=== PATIENT | female | born 1995 | race Caucasian/White ===

== ENCOUNTER 2019-01-16 14:00 | Emergency (ER) | payer MEDICAID, SELFPAY ==
[2019-01-16 14:04] VITALS: BP 115/70; PULSE 95; RESP 20; TEMP 36.6; O2SAT 99
--- NOTE | 2019-01-16 14:17 | DI.US_ITS ---
EXAM: US PELVIS AND TRANSVAGINAL CLINICAL HISTORY: left pelvic pain, h/o ovarian cysts TECHNIQUE: Ultrasound performed using standard protocol. Abdominal and transvaginal exams were per formed. COMPARISON: No exams were available for comparison FINDINGS: The uterus measures 9.3 x 4.2 x 5.3 cm. No fibroids are seen. The endometrium measures 13 millimeters in thickness and appears homogeneous. Small follicles are seen on both ovaries. There is no evidence of an ovarian mass or torsion. No free fluid or hydronephrosis is seen. IMPRESSION: Pelvic ultrasound is within normal limits.
[2019-01-16 14:23] LABS: Bilirubin Negative (Negative); Blood Negative (Negative); Clarity Clear (Clear); Glucose Negative (Negative); Ketones Negative (Negative); Leukocyte Esterase Negative (Negative); Nitrite Negative (Negative); Specific Gravity 1.025 (1.005-1.025); Urobilinogen 0.2 EU/dL (Up TO 0.2)
--- NOTE | 2019-01-16 14:43 | NUR.NOTE ---
Nursing Note: plan for u/s at 15:45. pt updated on plan of care.
--- NOTE | 2019-01-16 14:53 | ED.GENADUL_ITS ---
Discharge Plan Disposition Patient Disposition: HOME Condition: Improving Discharge Details Chief Complaint: Abd Prob Clinical Impression: Abdominal pain Primary Care Provider: Dalila,Local ED Provider: Tyra Owens Home Meds and New Rx's Prescriptions: Continued levothyroxine 150 mcg Tablet 150 mcg PO DAILY RF: 0 Discharge Instructions Instructions: Abdominal Pain (ED) Additional Instructions: Your blood work was within normal limits. Your CAT scan noted mild inflammation of the mesentery which is the fatty mesh which holds the bowel together. This is nonspecific and likely resolves on its own with time. This may or may not be the cause of your abdominal pain that you have had for the past year. Your CAT scan also noted gallstones within your gallbladder. These can often be the result of a diet of fried and fatty foods. Be sure to limit these to prevent development of cholecystitis which is an infection of your gallbladder due to a stone that has become stuck. You can alternate Tylenol and Motrin as needed and directed for pain. Follow a diet of clear liquids including Jell-O, soups, plenty of water for the next few days. Advance your diet as tolerated. Follow-up with your primary care doctor within the next week for reevaluation. Return to the emergency department if you develop any worsening or new concerning symptoms of fever, persistent vomiting or worsening pain. Discharge Data Discharge Date/Time-TO BE ENTERED AT DEPARTURE: 01/16/19 19:00 Discharge Physician: Tyra Owens Medical Decision Making <Tyra Owens DO - Last Filed: 01/16/19 19:03> 1630 --please see Dr. Nemo Prado's note for initial presentation and plan. 23-year-old female with a history of hypothyroidism presents with left lower quadrant abdominal pain for the past year, worse since yesterday. Describes the pain is constant, sharp and stabbing. Denies fever, vomiting and has a chronic history of diarrhea. Patient had a pelvic ultrasound which was negative. She declined pelvic exam. She admits to clear discharge which is likely physiologic. No known exposure to STDs. She was given Tylenol and IV fluids. Case endorsed to follow-up on labs and imaging. 1750 --labs and imaging reviewed. White blood cell count normal at 7, normal electrolytes, beta quant 1, lipase within normal limits. Urinalysis negative. CT abdomen pelvis notes very minimal fat stranding which may represent mild inflammation or possible pancreatitis. CT also noted gallstones but no evidence of cholecystitis. Patient still complaining of pain. She has tenderness to palpation in the LLQ>RLQ>LUQ. Abdomen otherwise soft and nondistended. We will give patient a dose of Toradol and add an amylase. Suspect more likely mesenteritis rather than pancreatitis but with noted gallstones will discuss with surgery. Discussed with Dr. Solomon and she agreed with plan for clear liquids, alternating Tylenol Motrin with plan to return if worse. 1840 --amylase within normal limits. Patient feels much better after Toradol and she is requesting to go home. She was advised to follow a diet of clear liquids over the next 2 days and advance diet as tolerated as well as alternate Tylenol and Motrin as needed directed for pain. She was advised to follow-up with her primary care doctor within the next week for reevaluation and to return her anytime if worse. Medical Records Medical records reviewed: Yes I reviewed the patient's medical records. Imaging Data Radiologic Study: Radiologist's impression: US PELVIS AND TRANSVAGINAL CLINICAL HISTORY: left pelvic pain, h/o ovarian cysts TECHNIQUE: Ultrasound performed using standard protocol. Abdominal and transvaginal exams were performed. COMPARISON: No exams were available for comparison FINDINGS: The uterus measures 9.3 x 4.2 x 5.3 cm. No fibroids are seen. The endometrium measures 13 millimeters in thickness and appears homogeneous. Small follicles are seen on both ovaries. There is no evidence of an ovarian mass or torsion. No free fluid or hydronephrosis is seen. IMPRESSION: Pelvic ultrasound is within normal limits. CT Abdomen And Pelvis With Contrast Exam date and time: 01/16/2019 5:16 PM Clinical history: 23 years old, female; Abdominal pain; Localized; Patient HX: Left sided pain; Additional info: Per PT: Has had 2 lypomas removed left side TECHNIQUE: Imaging protocol: Computed tomography of the abdomen and pelvis with intravenous contrast. COMPARISON: US PELVIS TRANSVAGINAL 01/16/2019 4:08 PM FINDINGS: Lungs: Mild dependent atelectasis. Liver: Mild hepatic steatosis. Gallbladder and bile ducts: Cholelithiasis with solitary gallstone without evidence of cholecystitis or biliary ductal dilatation. Pancreas: No pseudocyst or abnormal enhancement. Spleen: Normal. No splenomegaly. Adrenals: Normal. No mass. Kidneys and ureters: Normal. No hydronephrosis. Stomach and bowel: Unremarkable. No obstruction. No mucosal thickening. Appendix: Normal appendix (series 6, image [id number]). Intraperitoneal space: There is very minimal fat stranding around the celiac axis extending down into the mesentery. This may reflect mild mesenteric inflammation in the appropriate clinical setting. Pancreatitis would also be a consideration in appropriate clinical settings. Vasculature: Unremarkable. No abdominal aortic aneurysm. Lymph nodes: Benign-appearing fat containing iliac chain lymph nodes. There are a few scattered sub-5 mm mesenteric lymph nodes. Bladder: Unremarkable as visualized. Reproductive: Unremarkable as visualized. Bones/joints: Unremarkable. No acute fracture. Soft tissues: Unremarkable. IMPRESSION: 1. Very minimal fat stranding starting at the celiac axis and extending part way down into the mesentery. This is nonspecific but may represent mild inflammation or possibly pancreatitis in the appropriate clinical setting. 2. Cholelithiasis without evidence of cholecystitis. 3. Mild hepatic steatosis. Lab Data Lab results reviewed: Yes I reviewed the patient's lab results. Labs: Laboratory Tests Range/Units 01/16/19 01/16/19 01/16/19 14:17 16:20 16:20 WBC (4.4-10.8) k/cumm 7.98 RBC (4.00-5.20) m/cumm 4.59 Hgb (12.0-15.5) g/dL 13.6 Hct (36.0-46.0) % 40.4 MCV (80-95) fL 88.0 MCH (27.0-33.0) pg 29.6 MCHC (32.0-36.0) g/dL 33.7 RDW (11.7-14.6) % 13.1 Plt Count (130-400) x1000/uL 342 MPV (8.0-11.0) fL 9.5 Immature Gran % 0.3 Neutrophils % 61.9 Lymphocytes % 29.1 Monocytes % 7.3 Eosinophils % 1.0 Basophils % 0.4 Absolute Neutrophils (1.2-6.7) k/cumm 4.95 Absolute Lymphocytes (1.2-3.4) k/cumm 2.32 Absolute Monocytes (0.11-0.7) k/cumm 0.58 Absolute Eosinophils (0.0-0.7) k/cumm 0.08 Absolute Basophils (0.0-0.2) k/cumm 0.03 Sodium (136-145) mmol/L 142 Potassium (3.5-5.1) mmol/L 3.9 Chloride (98-107) mmol/L 104 Carbon Dioxide (21.0-32.0) mmol/L 29.4 Anion Gap (3-11) mmol/L 8.6 BUN (7-18) mg/dL 12 Creatinine (0.55-1.02) mg/dL 0.77 Estimated GFR/1.73 m2 (mL/min/1.73m2) >= 60.00 Glucose (70-100) mg/dL 100 Calcium (8.5-10.1) mg/dL 8.5 Total Bilirubin (0.2-1.0) mg/dL 0.2 AST (15-37) U/L 13 L ALT (14-59) U/L 34 Alkaline Phosphatase (46-116) U/L 80 Total Protein (6.4-8.2) g/dL 7.0 Albumin (3.4-5.0) g/dL 3.4 Amylase (25-115) U/L Lipase (73-393) U/L 153 Beta HCG, Quant (1-3) mIU/mL 1 Urine Color (Yellow) Yellow Urine Clarity (Clear) Clear Urine pH (5-8) 7.0 Ur Specific [place] (1.005-1.025) 1.025 Urine Protein (Negative) mg/dL Negative Urine Ketones (Negative) mg/dL Negative Urine Blood (Negative) Negative Urine Nitrite (Negative) Negative Urine Bilirubin (Negative) Negative Urine Urobilinogen (Up TO 0.2) EU/dL 0.2 Ur Leukocyte Esterase (Negative) Negative Urine Glucose (Negative) mg/dL Negative Range/Units 01/16/19 16:20 WBC (4.4-10.8) k/cumm RBC (4.00-5.20) m/cumm Hgb (12.0-15.5) g/dL Hct (36.0-46.0) % MCV (80-95) fL MCH (27.0-33.0) pg MCHC (32.0-36.0) g/dL RDW (11.7-14.6) % Plt Count (130-400) x1000/uL MPV (8.0-11.0) fL Immature Gran % Neutrophils % Lymphocytes % Monocytes % Eosinophils % Basophils % Absolute Neutrophils (1.2-6.7) k/cumm Absolute Lymphocytes (1.2-3.4) k/cumm Absolute Monocytes (0.11-0.7) k/cumm Absolute Eosinophils (0.0-0.7) k/cumm Absolute Basophils (0.0-0.2) k/cumm Sodium (136-145) mmol/L Potassium (3.5-5.1) mmol/L Chloride (98-107) mmol/L Carbon Dioxide (21.0-32.0) mmol/L Anion Gap (3-11) mmol/L BUN (7-18) mg/dL Creatinine (0.55-1.02) mg/dL Estimated GFR/1.73 m2 (mL/min/1.73m2) Glucose (70-100) mg/dL Calcium (8.5-10.1) mg/dL Total Bilirubin (0.2-1.0) mg/dL AST (15-37) U/L ALT (14-59) U/L Alkaline Phosphatase (46-116) U/L Total Protein (6.4-8.2) g/dL Albumin (3.4-5.0) g/dL Amylase (25-115) U/L 49 Lipase (73-393) U/L Beta HCG, Quant (1-3) mIU/mL Urine Color (Yellow) Urine Clarity (Clear) Urine pH (5-8) Ur Specific [place] (1.005-1.025) Urine Protein (Negative) mg/dL Urine Ketones (Negative) mg/dL Urine Blood (Negative) Urine Nitrite (Negative) Urine Bilirubin (Negative) Urine Urobilinogen (Up TO 0.2) EU/dL Ur Leukocyte Esterase (Negative) Urine Glucose (Negative) mg/dL <Nemo Prado MD - Last Filed: 01/19/19 20:56> Tiny Cline is a 23-year-old woman with a history of hypothyroidism who presented to the emergency department with left lower quadrant/left pelvic pain that has been chronic for 1 year now significantly worse since yesterday morning. On exam patient is well and nontoxic appearing. Left pelvic and left lower quadrant pain greater than right lower quadrant pain without peritoneal signs on abdominal exam. 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 Concern for ovarian pathology versus diverticulitis versus other. Exam/history is not consistent with sepsis, acute aortic pathology, mesenteric ischemia. Plan for screening labs, ultrasound, IV fluid hydration. Ultrasound negative. Labs reviewed and nondiagnostic. Patient with unchanged exam on reassessment. Plan for CT. Patient signed out to Dr. Owens at time of shift change with beta-hCG, CT, reassessment pending. Medical Records Medical records reviewed: Yes I reviewed the patient's medical records. HPI <Tyra Owesn DO - Last Filed: 01/16/19 19:03> General Date/Time Provider Initiated Documentation: 01/16/19 14:15 . Related Data Home Medications Medication Instructions Recorded Confirmed levothyroxine 150 mcg PO DAILY 01/16/19 01/16/19 Allergies Allergy/AdvReac Type Severity Reaction Status Date / Time No Known Allergies Allergy Unverified 01/16/19 14:12 <Nemo Prado MD - Last Filed: 01/19/19 20:56> General Mode of arrival: ambulatory . Limitations to Documentation: no limitations . Information obtained by: patient, RN notes reviewed and old records reviewed . HPI Narrative: Tiny Cline is a 23-year-old woman with a history of hypothyroidism presenting to the emergency department with left pelvic/left lower quadrant pain. Patient reports that she has had similar pain over the past year, however pain in is much worse than baseline since yesterday morning. Patient reports pain is constant, stabbing. She denies any known modifiers. Has been eating and drinking as usual. Patient reports chronic diarrhea that is unchanged. She denies constipation, vomiting, fevers, any other pain. Patient reports that she has had no recent changes in quality or amount of vaginal discharge. Sexually active with one long-term male partner, no new partners. General Stated Complaint: Abd Prob JEANETTE: 3 <Nemo Prado MD - Last Filed: 01/19/19 20:56> Narrative: Constitutional: denies fevers Eyes: denies eye pain ENT: denies facial pain, dental pain, sore throat Cardiovascular: denies chest pain Respiratory: denies SOB, cough GI: denies vomiting, reports left pelvic/left lower quadrant abdominal pain, chronic diarrhea : denies flank pain, dysuria, vaginal discharge MSK: denies back pain, neck pain, arthralgias, myalgias Skin: denies rash Neuro: denies headaches, numbness, weakness PFSH <Tyra Owens DO - Last Filed: 01/16/19 19:03> Social History Smoking/Tobacco Use Status: Former Tobacco Use Alcohol Intake: current Alcohol Intake frequency: a few times a month Drug use: Never Substance use type: does not use Do you feel safe at home: Yes Do you feel safe in your relationship?: Yes <Nemo Prado MD - Last Filed: 01/19/19 20:56> Narrative Exam Narrative: Constitutional: well and [id number], pleasant, conversing normally HENT: head atraumatic/normocephalic/normal inspection, mucous membranes moist Eyes: conjunctiva normal, sclera normal, pupils 3mm b/l Neck: no stridor, normal ROM, trachea midline Resp: normal work of breathing, LCTAB Cardio: normal rate, normal rhythm, no murmur appreciated GI: abdomen soft, tender to palpation across the lower abdomen, significantly worse in the left pelvic area/left lower quadrant, no rebound or guarding, non- distended : Patient refused pelvic exam Skin: warm, dry, normal color, no rash Neuro: alert, not altered, grossly non-focal, normal tone Ext: no edema Psych: normal mood, normal affect, normal behavior <Nemo Prado MD - Last Filed: 01/19/19 20:56> Vital Signs Vital signs: Vital Signs Temperature 36.6 C 01/16/19 14:04 Pulse 95 H 01/16/19 14:04 Respiratory Rate 20 01/16/19 14:04 Blood Pressure 115/70 01/16/19 14:04 Pulse Oximetry 99 01/16/19 14:04 Temperature 36.6 C 01/16/19 14:04 Temperature Source Skin 01/16/19 14:04 Pulse 95 H 01/16/19 14:04 Respiratory Rate 20 01/16/19 14:04 Respiratory Effort Non-Labored 01/16/19 14:08 Blood Pressure 115/70 01/16/19 14:04 Blood Pressure Position Sitting 01/16/19 14:04 Pulse Oximetry 99 01/16/19 14:04 Oxygen Delivery Method Room Air 01/16/19 14:04 Oxygen Flow Rate 0 01/16/19 14:04 Pain Level 9 01/16/19 14:04 Lab/Test Results Lab/Test Results: Laboratory Tests Range/Units 01/16/19 14:17 Urine Color (Yellow) Yellow Urine Clarity (Clear) Clear Urine pH (5-8) 7.0 Ur Specific [place] (1.005-1.025) 1.025 Urine Protein (Negative) mg/dL Negative Urine Ketones (Negative) mg/dL Negative Urine Blood (Negative) Negative Urine Nitrite (Negative) Negative Urine Bilirubin (Negative) Negative Urine Urobilinogen (Up TO 0.2) EU/dL 0.2 Ur Leukocyte Esterase (Negative) Negative Urine Glucose (Negative) mg/dL Negative POC- Test(urine) Negative Sign Out <Tyra Owens DO - Last Filed: 01/16/19 19:03> Sign Out Data: Sign Out Comment: Patient signed out to Dr. Owens at time of shift change with labs, CT abdomen pelvis, reassessment pending. Last updated by Nemo Prado MD at 01/16/19 16:39
--- NOTE | 2019-01-16 14:55 | NUR.NOTE ---
Nursing Note: provided pt with 2 glasses of water for a full bladder prior to scan per radiology.
[2019-01-16] MEDS: Acetaminophen 500 MG TAB 1000 MG PO (14:57)
[2019-01-16 14:58] VITALS: BP 119/69; PULSE 83; RESP 16; O2SAT 99
[2019-01-16] MEDS: Normal Saline 1,000 ML 1000 ML IV (16:00)
--- NOTE | 2019-01-16 16:11 | DI.CT_ITS ---
EXAM: CT ABDOMEN PELVIS W CLINICAL HISTORY: LLQ AND LUQ PAIN TECHNIQUE: 100 cc Omnipaque 350 IV. COMPARISON: No exams were available for comparison FINDINGS: Minimal dependent changes are seen at the lung bases. The heart size is normal. The liver shows fatt y infiltration. Stones are noted in the gallbladder which is otherwise unremarkable. No biliary dilat ation is seen. The spleen, pancreas, adrenals and kidneys are unremarkable. The appendix appears norm al. There is no bowel dilatation, bowel wall thickening or inflammatory changes. There is a normal qu antity of stool. A dominant follicle is seen on the right ovary. The left ovary and uterus as well a s bladder are unremarkable. There is a minimal fatty containing umbilical hernia. Aorta is normal in diameter. No bony abnormalities are seen. IMPRESSION: Cholelithiasis. No evidence of acute cholecystitis.
[2019-01-16 16:29] LABS: Abs Immature Grans 0.02 k/cumm (0.0-0.09); Absolute Basophil Count 0.03 k/cumm (0.0-0.2); Absolute Eosinophil Count 0.08 k/cumm (0.0-0.7); Absolute Lymphocyte Count 2.32 k/cumm (1.2-3.4); Absolute Monocyte Count 0.58 k/cumm (0.11-0.7); Absolute Neutrophil Count 4.95 k/cumm (1.2-6.7); Basophils % 0.4; HCT 40.4 % (36.0-46.0); HGB 13.6 g/dL (12.0-15.5); Immature Grans % 0.3; Lymphocytes % 29.1; Mean Corp. HGB Concentration 33.7 g/dL (32.0-36.0); Mean Corpuscular Hemoglobin 29.6 pg (27.0-33.0); Mean Platelet Volume 9.5 fL (8.0-11.0); Monocytes % 7.3; Neutrophils % 61.9; Platelet Count 342 x1000/uL (130-400); RBC 4.59 m/cumm (4.00-5.20); RBC Distribution Width 13.1 % (11.7-14.6); White Blood Cell Count 7.98 k/cumm (4.4-10.8)
[2019-01-16 16:50] LABS: ALT 34 U/L (14-59); AST 13 U/L (15-37); Albumin 3.4 g/dL (3.4-5.0); Alkaline Phosphatase 80 U/L (46-116); Anion Gap 8.6 mmol/L (3-11); BUN 12 mg/dL (7-18); Bilirubin, Total 0.2 mg/dL (0.2-1.0); CO2 29.4 mmol/L (21.0-32.0); CREATININE 0.77 mg/dL (0.55-1.02); Calcium 8.5 mg/dL (8.5-10.1); Chloride 104 mmol/L (98-107); Glucose 100 mg/dL (70-100); HCG Quant, Pregnancy 1 mIU/mL (1-3); Potassium 3.9 mmol/L (3.5-5.1); Sodium 142 mmol/L (136-145)
[2019-01-16 16:56] LABS: Lipase 153 U/L (73-393)
[2019-01-16] MEDS: Omnipaque 350 MG/ML 100 ML BTL IJ (17:13)
--- NOTE | 2019-01-16 17:53 | DI.VRAD_ITS ---
PROCEDURE INFORMATION: Exam: CT Abdomen And Pelvis With Contrast Exam date and time: 01/16/2019 5:16 PM Clinical history: 23 years old, female; Abdominal pain; Localized; Patient HX: Left sided pain; Additional info: Per PT: Has had 2 lypomas removed left side TECHNIQUE: Imaging protocol: Computed tomography of the abdomen and pelvis with intravenous contrast. COMPARISON: US PELVIS TRANSVAGINAL 01/16/2019 4:08 PM FINDINGS: Lungs: Mild dependent atelectasis. Liver: Mild hepatic steatosis. Gallbladder and bile ducts: Cholelithiasis with solitary gallstone without evidence of cholecystitis or biliary ductal dilatation. Pancreas: No pseudocyst or abnormal enhancement. Spleen: Normal. No splenomegaly. Adrenals: Normal. No mass. Kidneys and ureters: Normal. No hydronephrosis. Stomach and bowel: Unremarkable. No obstruction. No mucosal thickening. Appendix: Normal appendix (series 6, image [id number]). Intraperitoneal space: There is very minimal fat stranding around the celiac axis extending down into the mesentery. This may reflect mild mesenteric inflammation in the appropriate clinical setting. Pancreatitis would also be a consideration in appropriate clinical settings. Vasculature: Unremarkable. No abdominal aortic aneurysm. Lymph nodes: Benign-appearing fat containing iliac chain lymph nodes. There are a few scattered sub-5 mm mesenteric lymph nodes. Bladder: Unremarkable as visualized. Reproductive: Unremarkable as visualized. Bones/joints: Unremarkable. No acute fracture. Soft tissues: Unremarkable. IMPRESSION: 1. Very minimal fat stranding starting at the celiac axis and extending part way down into the mesentery. This is nonspecific but may represent mild inflammation or possibly pancreatitis in the appropriate clinical setting. 2. Cholelithiasis without evidence of cholecystitis. 3. Mild hepatic steatosis. Dictated and Authenticated by: Manny Cohen MD. Ordering:FLOWER Chester MD
[2019-01-16] MEDS: Ketorolac 30 MG/ML VIAL IVP (18:25)
[2019-01-16] MEDS: Normal Saline Flush 10 ML SYR IVP (18:26)
[2019-01-16 18:41] LABS: Amylase 49 U/L (25-115)
[2019-01-16 18:58] VITALS: BP 124/67; PULSE 74; RESP 16; O2SAT 98
== END 2019-01-16 19:00 | disposition home or self-care (01) ==
PROVIDERS: Student in an Organized Health Care Education/Training Program; Emergency Provider Physician Assistant
DX: R10.2 Pelvic and perineal pain (principal); R10.32 Left lower quadrant pain
CPT/HCPCS: 36415; 80053; 81025; 83690; 96361; 96374; 99284; 74177; 76830; 76856; 81003; 82150; 84702; 85025; J1885; J3490

== ENCOUNTER 2019-04-18 23:28 | Emergency (ER) | payer MEDICAID, SELFPAY ==
--- NOTE | 2019-04-18 23:31 | W.ED.GENAD ---
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 Alternate tylenol and motrin as needed and directed for pain. Take the oxycodone for pain not relieved with Tylenol or Motrin. Drink plenty of fluids and get plenty of rest. Follow-up with your primary care doctor or your MAIL DISTRIBUTION SCHEME EXAMINER within 1 week for reevaluation. Return to the emergency department with any worsening or new concerning symptoms. Discharge Data Discharge Date/Time-TO BE ENTERED AT DEPARTURE: 04/19/19 01:45 Discharge Physician: Tyra Owens Medical Decision Making 4720 -- 23-year-old female with a history of ovarian cyst presents with severe stabbing bilateral lower abdominal pain that started 1 hour ago while at home. Pain worse with sitting. She does also admit to vomiting and diarrhea over the past few days. She denies known fever, urinary symptoms. Urine test negative on arrival. She is crying and tearful and pain but abdomen is soft without rigidity or guarding and appears minimally tender with deep palpation. Patient states she is in severe pain. Level of pain appears out of proportion to exam. Differential diagnosis includes ovarian cyst, colitis, appendicitis, diverticulitis, UTI. Will place an IV, bolus IV fluids, screening labs, urinalysis and CT abdomen pelvis and give a dose of Toradol and Zofran and reassess. 0030 --patient reassessed -she appears much more comfortable. Labs reviewed and unremarkable. Pelvic exam noted physiologic discharge. Left-sided adnexal tenderness. No cervical motion tenderness. No adnexal masses noted. Patient admitted to more discomfort after pelvic exam. Dose of morphine given. 0115 --CT reviewed and notes recently ruptured left ovarian cyst. This is consistent with patient's exam. Patient reassessed -she is smiling and feels much more comfortable. She feels good to go home. We will send home with a few tabs of oxycodone. She is advised to follow-up with her primary care doctor or MAIL DISTRIBUTION SCHEME EXAMINER for reevaluation. Usual and customary return precautions given prior to discharge. After patient discharge, vaginal path screen returned and positive for Gardnerella. Patient was called several times on her cell phone with no response. Message left on her voicemail to return call to the emergency department. Plan discussed with school secretary Taylorcecy Voss to determine patient's pharmacy number once pt returns call to the ED in order to call in a prescription for Flagyl 500 mg p.o. twice daily x7 days Disp # 14. Medical Records Medical records reviewed: Yes I reviewed the patient's medical records. Imaging Data Radiologic Study: Radiologist's impression: CT Abdomen And Pelvis With Contrast Exam date and time: 04/19/2019 12:07 AM Age: 23 years old Clinical indication: Localized; Patient HX: Lower abdominal pain starting tonight, HX of ovarian cysts, ; additional info: R/O ovarian cysts, colitis, appendicitis TECHNIQUE: Imaging protocol: Computed tomography of the abdomen and pelvis with intravenous contrast. Radiation optimization: All CT scans at this facility use at least one of these dose optimization techniques: automated exposure control; mA and/or kV adjustment per patient size (includes targeted exams where dose is matched to clinical indication); or iterative reconstruction. Contrast material: OMNIPAQUE 350; Contrast volume: 100 ml; Contrast route: IV RAC; COMPARISON: CT ABDOMEN PELVIS W 01/16/2019 5:15 PM FINDINGS: Liver: Normal. No mass. Gallbladder and bile ducts: Small calcified stones. No ductal dilation. Pancreas: Normal. No ductal dilation. Spleen: Normal. No splenomegaly. Adrenals: Normal. No mass. Kidneys and ureters: Normal. No hydronephrosis. Stomach and bowel: Unremarkable. No obstruction. No mucosal thickening. Appendix: No evidence of appendicitis. Intraperitoneal space: Minimal pelvic fluid. No free air. No significant fluid collection. Vasculature: Unremarkable. No abdominal aortic aneurysm. Lymph nodes: Unremarkable. No enlarged lymph nodes. Bladder: Unremarkable as visualized. Reproductive: 3.5 cm left ovarian cyst Bones/joints: Unremarkable. No acute fracture. Soft tissues: Tiny periumbilical fat containing hernia IMPRESSION: Presumed recently ruptured left ovarian cyst measuring 3.5 cm with minimal pelvic fluid Gallstones Lab Data Lab results reviewed: Yes I reviewed the patient's lab results. Labs: 04/19/19 01:04 Vaginal Vaginitis Screen - Pending Laboratory Tests Range/Units 02/18/20 02/18/20 02/18/20 23:50 23:50 23:55 WBC (4.4-10.8) k/cumm 9.80 RBC (4.00-5.20) m/cumm 4.76 Hgb (12.0-15.5) g/dL 14.0 Hct (36.0-46.0) % 41.7 MCV (80-95) fL 87.6 MCH (27.0-33.0) pg 29.4 MCHC (32.0-36.0) g/dL 33.6 RDW (11.7-14.6) % 12.7 Plt Count (130-400) x1000/uL 323 MPV (8.0-11.0) fL 9.5 Immature Gran % % 0.2 Neutrophils % 60.3 Lymphocytes % 28.6 Monocytes % 9.0 Eosinophils % 1.6 Basophils % 0.3 Absolute Neutrophils (1.2-6.7) k/cumm 5.91 Absolute Lymphocytes (1.2-3.4) k/cumm 2.80 Absolute Monocytes (0.11-0.7) k/cumm 0.88 H Absolute Eosinophils (0.0-0.7) k/cumm 0.16 Absolute Basophils (0.0-0.2) k/cumm 0.03 Sodium (136-145) mmol/L 141 Potassium (3.5-5.1) mmol/L 3.9 Chloride (98-107) mmol/L 105 Carbon Dioxide (21.0-32.0) mmol/L 28.2 Anion Gap (3-11) mmol/L 7.8 BUN (7-18) mg/dL 12 Creatinine (0.55-1.02) mg/dL 0.83 Estimated GFR/1.73 m2 (mL/min/1.73m2) >= 60.00 Glucose (74-106) mg/dL 87 Calcium (8.5-10.1) mg/dL 8.4 L Total Bilirubin (0.2-1.0) mg/dL 0.1 L AST (15-37) U/L 16 ALT (14-59) U/L 47 Alkaline Phosphatase (46-116) U/L 90 Total Protein (6.4-8.2) g/dL 7.3 Albumin (3.4-5.0) g/dL 3.5 Urine Color (Yellow) Yellow Urine Clarity (Clear) Clear Urine pH (5-8) 8.[address] [place] (1.005-1.025) 1.020 Urine Protein (Negative) mg/dL Negative Urine Ketones (Negative) mg/dL Negative Urine Blood (Negative) Trace H Urine Nitrite (Negative) Negative Urine Bilirubin (Negative) Negative Urine Urobilinogen (Up TO 0.2) EU/dL 0.2 Ur Leukocyte Esterase (Negative) Negative Urine RBC (0-2) HPF 0-2 Urine WBC (0-5) HPF 0-2 Ur Epithelial Cells (Negative) HPF Rare Urine Crystals Not Applicable Urine Bacteria Not Applicable Urine Mucus Not Applicable Ur Culture Indicated? No Urine Glucose (Negative) mg/dL Negative HPI General Mode of arrival: ambulatory. Date/Time Provider Initiated Documentation: 04/18/19 23:29. Limitations to Documentation: no limitations. Information obtained by: patient. History of Present Illness 23 year old F presents to the emergency department with the chief complaint of lower abdominal pain , described as severe, with intensity rated at 10. Quality is described as stabbing, and is localized to the abdomen. Patient reports no radiation. Patient started experiencing this hour(s) (2) and it has been constant. No relieving factors improve symptom(s), Other factors that worsen symptoms (sitting) . Patient notes nausea/vomiting (Food, 3 times over the past few days) and other (Diarrhea twice daily today, watery brown); denies headaches, seizure, shortness of breath, syncope and weakness. Patient did receive the following treatments prior to arrival, none Related Data Home Medications Medication Instructions Recorded Confirmed levothyroxine 150 mcg PO DAILY 01/16/19 04/19/19 Allergies Allergy/AdvReac Type Severity Reaction Status Date / Time No Known Allergies Allergy Unverified 04/19/19 00:32 General JEANETTE: 3 Review of Systems All systems reviewed & are unremarkable except as noted in HPI and below Constitutional Constitutional: Reports as per HPI, Denies chills and Denies fever(s) Eyes Eyes: Denies blurry vision ENT Ears, Nose, Mouth, and Throat: Denies dizziness, Denies sore throat and Denies throat swelling Cardiovascular Cardiovascular: Denies chest pain and Denies dyspnea Respiratory Respiratory: Denies cough and Denies dyspnea Gastrointestinal Gastrointestinal: Reports abdominal pain, Reports diarrhea and Reports vomiting Genitourinary Genitourinary: Denies hematuria and Denies dysuria Musculoskeletal Musculoskeletal: Denies back pain and Denies numbness Integumentary/Breasts Skin/Breast: Denies lesions and Denies rash Neurologic Neurologic: Denies dizziness, Denies focal weakness and Denies numbness Allergic/Immunologic Allergic/Immunologic: Denies throat swelling [facility] Medical History (Updated 04/19/19 @ 01:22 by Tyra Owens DO) Hypothyroidism (Chronic) Surgical History (Updated 04/19/19 @ 00:08 by Tyra Owens DO) No significant past surgical history (Acute) Social History Smoking/Tobacco Use Status: Former Tobacco Use Alcohol Intake: current Alcohol Intake frequency: a few times a month Drug use: Never Substance use type: does not use Do you feel safe at home: Yes Do you feel safe in your relationship?: Yes Exam Const General: cooperative, uncomfortable, no acute distress and other (crying and tearful) Orientation: alert, awake and oriented x3 HENMT Head: normal to inspection Face and sinus: normal facial exam Eyes General: appearance normal, both eyes and all related structures EOM: EOM intact bilaterally Neck Neck: normal visual inspection and No submandibular swelling Lymphatic: no lymphadenopathy noted Chest Chest: normal inspection of the chest and no tenderness Resp Effort & Inspection: normal respiratory effort and able to speak in complete sentences Auscultation: clear to auscultation bilaterally Cardio Rate: regular rate Rhythm: regular rhythm GI Inspection: normal to inspection and obesity Palpation: soft, not firm, not rigid and tender (across lower abdomen) Auscultation: normal bowel sounds Back/Spine/Pelvis Back: no CVA tenderness Skin General skin exam: no rashes or lesions noted Neuro General: alert, awake and oriented x3 Cognition: normal cognition Speech: speech normal Motor: muscle tone normal throughout Sensory Exam: no sensory deficits noted Extrem General: normal to inspection, full ROM, normal capillary refill, no calf tenderness bilaterally and no edema Psych Appearance: grossly normal Mental Status: mental status grossly normal Speech and Movement: speech and movement normal Affect: normal affect
[2019-04-18 23:32] VITALS: BP 150/71; PULSE 86; RESP 18; TEMP 36.7; O2SAT 100
[2019-04-18] MEDS: Normal Saline 1,000 ML 1000 ML IV (23:55)
--- NOTE | 2019-04-19 | DI.CT_ITS ---
EXAM: CT ABDOMEN PELVIS W CLINICAL HISTORY: lower abd pain, h/o ovarian cysts TECHNIQUE: Imaging Protocol: Axial computed tomography images with coronal and sagittal reformatted images were created and reviewed CONTRAST MATERIAL: Intravenous: Omnipaque 350 Contrast volume:100 mL Oral: No COMPARISON: CT ABDOMEN PELVIS W from 01/16/2019 FINDINGS: ABDOMEN: Lung Bases: Normal where visualized. Liver: Normal density. No measurable mass. Portal, Superior Mesenteric, and Splenic Veins: Unremarkable. Gallbladder and Biliary Tract: Gallstones. No biliary ductal dilatation. Pancreas: Normal density, no abnormal calcifications or inflammatory process. Spleen: Normal. Adrenals: No masses seen. Kidneys: Normal size, contour and axis. No radiodense stones or obstructive uropathy. No masses seen. Abdominal Aorta: Abdominal portion non-dilated. Bowel: No obstruction or bowel wall thickening. Appendix is unremarkable. Peritoneal Cavity: Small amount of pelvic fluid. Lymph Nodes: Within normal limits. Bones: Unremarkable. Soft Tissues: Small fat containing umbilical hernia. PELVIS: Bladder: Symmetric distention, no gross wall thickening. Reproductive Organs: 3.5 cm left ovarian cyst. Lymph Nodes: Within normal limits. Bones: Within normal limits. IMPRESSION: 1. 3.5 cm left ovarian cyst. Minimal pelvic fluid which is likely physiologic. 2. Cholelithiasis. No biliary ductal dilatation. Incidental Findings Critical Findings DATA REPOSITORY: All CT scans at this facility are submitted to the National Radiology Data Registry (NRDR) Dose Index Registry (DIR) with the [employer] (A[employer]). RADIATION OPTIMIZATION: All CT scans at this facility use at least one of these dose optimization te chniques: automated exposure control; mA and/or kV adjustment per patient size (includes targeted exa ms where dose is matched to clinical indication); or iterative reconstruction.
[2019-04-19 00:01] LABS: Abs Immature Grans 0.02 k/cumm (0.0-0.09); Absolute Basophil Count 0.03 k/cumm (0.0-0.2); Absolute Eosinophil Count 0.16 k/cumm (0.0-0.7); Absolute Monocyte Count 0.88 k/cumm (0.11-0.7); Absolute Neutrophil Count 5.91 k/cumm (1.2-6.7); Basophils % 0.3; Eosinophils % 1.6; HCT 41.7 % (36.0-46.0); Immature Grans % 0.2 %; Lymphocytes % 28.6; Mean Corp. HGB Concentration 33.6 g/dL (32.0-36.0); Mean Corpuscular Hemoglobin 29.4 pg (27.0-33.0); Mean Corpuscular Volume 87.6 fL (80-95); Mean Platelet Volume 9.5 fL (8.0-11.0); Neutrophils % 60.3; Platelet Count 323 x1000/uL (130-400); RBC 4.76 m/cumm (4.00-5.20); RBC Distribution Width 12.7 % (11.7-14.6)
[2019-04-19 00:08] LABS: Clarity Clear (Clear); Leukocyte Esterase Negative (Negative)
[2019-04-19 00:09] LABS: Bilirubin Negative (Negative); Blood Trace (Negative); Glucose Negative (Negative); Ketones Negative (Negative); Nitrite Negative (Negative); Urobilinogen 0.2 EU/dL (Up TO 0.2)
[2019-04-19 00:11] LABS: ALT 47 U/L (14-59); AST 16 U/L (15-37); Albumin 3.5 g/dL (3.4-5.0); Alkaline Phosphatase 90 U/L (46-116); Anion Gap 7.8 mmol/L (3-11); BUN 12 mg/dL (7-18); Bilirubin, Total 0.1 mg/dL (0.2-1.0); CO2 28.2 mmol/L (21.0-32.0); CREATININE 0.83 mg/dL (0.55-1.02); Calcium 8.4 mg/dL (8.5-10.1); Chloride 105 mmol/L (98-107); Glucose 87 mg/dL (74-106); Potassium 3.9 mmol/L (3.5-5.1); Sodium 141 mmol/L (136-145); Total Protein 7.3 g/dL (6.4-8.2)
[2019-04-19 00:13] LABS: C & S Indicated? No; Epithelial Cells Rare HPF (Negative); RBC 0-2 HPF (0-2); WBC 0-2 HPF (0-5)
[2019-04-19] MEDS: Omnipaque 350 MG/ML 100 ML BTL IJ (00:49)
[2019-04-19] MEDS: Normal Saline - Diluent 50 ML VIAL IV (00:50)
--- NOTE | 2019-04-19 01:20 | DI.VRAD_ITS ---
PROCEDURE INFORMATION: Exam: CT Abdomen And Pelvis With Contrast Exam date and time: 04/19/2019 12:07 AM Age: 23 years old Clinical indication: Localized; Patient HX: Lower abdominal pain starting tonight, HX of ovarian cysts, ; additional info: R/O ovarian cysts, colitis, appendicitis TECHNIQUE: Imaging protocol: Computed tomography of the abdomen and pelvis with intravenous contrast. Radiation optimization: All CT scans at this facility use at least one of these dose optimization techniques: automated exposure control; mA and/or kV adjustment per patient size (includes targeted exams where dose is matched to clinical indication); or iterative reconstruction. Contrast material: OMNIPAQUE 350; Contrast volume: 100 ml; Contrast route: IV RAC; COMPARISON: CT ABDOMEN PELVIS W 01/16/2019 5:15 PM FINDINGS: Liver: Normal. No mass. Gallbladder and bile ducts: Small calcified stones. No ductal dilation. Pancreas: Normal. No ductal dilation. Spleen: Normal. No splenomegaly. Adrenals: Normal. No mass. Kidneys and ureters: Normal. No hydronephrosis. Stomach and bowel: Unremarkable. No obstruction. No mucosal thickening. Appendix: No evidence of appendicitis. Intraperitoneal space: Minimal pelvic fluid. No free air. No significant fluid collection. Vasculature: Unremarkable. No abdominal aortic aneurysm. Lymph nodes: Unremarkable. No enlarged lymph nodes. Bladder: Unremarkable as visualized. Reproductive: 3.5 cm left ovarian cyst Bones/joints: Unremarkable. No acute fracture. Soft tissues: Tiny periumbilical fat containing hernia IMPRESSION: Presumed recently ruptured left ovarian cyst measuring 3.5 cm with minimal pelvic fluid Gallstones Dictated and Authenticated by: Levy Kaminski MD. Ordering:ED Mary MD
== END 2019-04-19 01:45 | disposition home or self-care (01) ==
LOC: ER 04-19 01:55
PROVIDERS: Emergency Provider Physician Assistant
DX: N76.0 Acute vaginitis (principal); B96.89 Other specified bacterial agents as the cause of diseases classified elsewhere; N83.292 Other ovarian cyst, left side
CPT/HCPCS: 36415; 80053; 81025; 96361; 96374; 99285; 74177; 81003; 81015; 85025; 87480; 87510; 87660; 99284; J3490

== ENCOUNTER 2019-09-10 01:49 | Emergency (ER) | payer MEDICAID, SELFPAY ==
--- NOTE | 2019-09-10 01:50 | ED.GENADUL_ITS ---
Discharge Plan Disposition Patient Disposition: HOME Condition: Good Discharge Details Chief Complaint: Abd Prob Clinical Impression: Pelvic pain Primary Care Provider: Dalila,Local ED Provider: Ariel Adler Meds and New Rx's Prescriptions: New ibuprofen 600 mg tablet 600 mg PO Q8H PRNQty: 15 RF: 0 Continued levothyroxine 150 mcg Tablet 150 mcg PO DAILY RF: 0 Discharge Instructions Additional Instructions: test and urinalysis are negative. Laboratory studies look normal. GC and Chlamydia probe results pending. Recommend rest for the weekend and use ibuprofen for discomfort. Follow-up with your TITLE ABSTRACTOR this week if continued pain/problems. Return to ED for fever, worsening pain, persistent vomiting, other concerns or problems. Medical Decision Making Patient test negative here. Urinalysis pending. Pelvic exam suggestive of left adnexal pathology, likely recurrent cyst. No discharge and no CMT. IV in place with Toradol and Zofran ordered. Laboratory studies sent. Will reevaluate. 2:45 AM: Patient laboratory studies are unremarkable. Normal white count. Normal hemoglobin. Urinalysis negative. Patient is feeling better at this point. Does complain of some discomfort when moving. She does have TITLE ABSTRACTOR follow-up over in [place]. She reiterates that this feels like previous ruptured cyst. I am not concerned for ovarian torsion at this point. test is negative. Did offer patient to stay until morning for ultrasound if she felt she was that uncomfortable. She declined. She would like to go home. Will give prescription for ibuprofen. Rest and call her TITLE ABSTRACTOR on Wednesday if not doing better. Return to ED for fever, worsening pain, persistent vomiting, other concerns or problems. Lab Data Lab results reviewed: Yes I reviewed the patient's lab results. HPI General Mode of arrival: wheelchair . Date/Time Provider Initiated Documentation: 09/10/19 01:50 . Limitations to Documentation: no limitations . Information obtained by: patient, RN notes reviewed and old records reviewed . HPI Narrative: Patient presents to ED after waking up approximately 30 minutes ago with low abdominal pain and cramping with associated nausea. She has had some back discomfort over the course of a day or so. She denies urinary symptoms. She denies vomiting or diarrhea. Been no fever. She denies vaginal bleeding or discharge. Reports having similar pain when she had a ruptured ovarian cyst. Did not take anything prior to coming in. Is about a week late on her. But had a negative home test yesterday. Related Data Home Medications Medication Instructions Recorded Confirmed levothyroxine 150 mcg PO DAILY 01/16/19 09/10/19 ibuprofen 600 mg PO Q8H PRN #15 tab 09/10/19 Previous Rx's Medication Instructions Recorded ibuprofen 600 mg PO Q8H PRN #15 tab 09/10/19 Allergies Allergy/AdvReac Type Severity Reaction Status Date / Time No Known Allergies Allergy Unverified 09/10/19 02:01 General JEANETTE: 3 Review of Systems Narrative: As documented in HPI otherwise negative as below. Const: no fever, chills, weakness Resp: no cough, SOB, pleuritic pain CV: no CP, diaphoresis, edema, syncope GI: no vomiting, diarrhea Neuro: no headache, numbness, focal weakness, confusion PFSH Medical History Hypothyroidism (Chronic) Surgical History No significant past surgical history (Acute) Social History Smoking/Tobacco Use Status: Former Tobacco Use Alcohol Intake: former Drug use: Never Substance use type: does not use Do you feel safe at home: Yes Do you feel safe in your relationship?: Yes Exam Narrative Exam Narrative: Vitals: Afebrile with normal vitals and normal room air pulse ox. Const: Obese female in NAD. HEENT: NC/AT. Normal facial exam. Eyes: Normal conjunctiva and sclera. Neck: Supple. Trachea midline. Lungs: Normal respiratory effort. Cor: Good radial pulses. GI: Soft. NT/ND. No guarding or rebound. Pelvic: Normal female genitalia. No bleeding or discharge. GC and Chlamydia probe obtained. Bimanual reveals no CMT. Some discomfort on the right. Left adnexa tender with some fullness. Back: No CVAT Neuro: A+O x 3. Normal speech, mentation, gait. Cranial nerves II - XII grossly intact. No gross motor or sensory deficit. Ext: No C/C/E. Skin: Warm and dry without rash.
[2019-09-10 01:57] VITALS: BP 126/73; PULSE 89; RESP 20; TEMP 36.9; O2SAT 100
[2019-09-10 02:03] LABS: Bilirubin Negative (Negative); Blood Trace-intact (Negative); Clarity Clear (Clear); Glucose Negative (Negative); Ketones Negative (Negative); Leukocyte Esterase Negative (Negative); Nitrite Negative (Negative); Urobilinogen 0.2 EU/dL (Up TO 0.2); pH 8.5 (5-8)
[2019-09-10] MEDS: Ondansetron 4 MG/2 ML VIAL IVP (02:13)
[2019-09-10] MEDS: Ketorolac 30 MG/ML VIAL IVP (02:13)
[2019-09-10 02:14] LABS: Abs Immature Grans 0.01 k/cumm (0.0-0.09); Absolute Basophil Count 0.03 k/cumm (0.0-0.2); Absolute Eosinophil Count 0.17 k/cumm (0.0-0.7); Absolute Lymphocyte Count 3.13 k/cumm (1.2-3.4); Absolute Monocyte Count 0.86 k/cumm (0.11-0.7); Absolute Neutrophil Count 5.54 k/cumm (1.2-6.7); Basophils % 0.3; Eosinophils % 1.7; HCT 39.8 % (36.0-46.0); HGB 13.5 g/dL (12.0-15.5); Immature Grans % 0.1 %; Lymphocytes % 32.1; Mean Corp. HGB Concentration 33.9 g/dL (32.0-36.0); Mean Corpuscular Hemoglobin 30.6 pg (27.0-33.0); Mean Corpuscular Volume 90.2 fL (80-95); Mean Platelet Volume 9.8 fL (8.0-11.0); Monocytes % 8.8; Platelet Count 347 x1000/uL (130-400); RBC 4.41 m/cumm (4.00-5.20); RBC Distribution Width 13.4 % (11.7-14.6); White Blood Cell Count 9.74 k/cumm (4.4-10.8)
[2019-09-10 02:18] LABS: WBC Negative HPF (0-5)
[2019-09-10 02:19] LABS: Bacteria Negative HPF (Negative); Crystals Negative HPF (Negative); Epithelial Cells Rare HPF (Negative); Mucus Trace (Negative); Other Cells Moderate Spermatozoa (Negative)
[2019-09-10 02:20] LABS: C & S Indicated? No; Casts Negative LPF (Negative)
[2019-09-10 02:33] LABS: ALT 59 U/L (14-59); AST 24 U/L (15-37); Albumin 3.9 g/dL (3.4-5.0); Alkaline Phosphatase 90 U/L (46-116); Anion Gap 8.1 mmol/L (3-11); BUN 13 mg/dL (7-18); Bilirubin, Total 0.2 mg/dL (0.2-1.0); CO2 29.9 mmol/L (21.0-32.0); CREATININE 1.05 mg/dL (0.55-1.02); Calcium 8.8 mg/dL (8.5-10.1); Chloride 103 mmol/L (98-107); Glucose 102 mg/dL (74-106); Lipase 154 U/L (73-393); Potassium 3.6 mmol/L (3.5-5.1); Sodium 141 mmol/L (136-145); Total Protein 7.7 g/dL (6.4-8.2)
[2019-09-10 02:48] VITALS: BP 116/70; PULSE 80; RESP 16; TEMP 36.9; O2SAT 100
--- NOTE | 2019-09-10 11:08 | NUR.NOTE ---
Nursing Note: Lab called stating that a vaginal pathogen screen was sen to the lab without an order. They did receive a gc/chlam specimen and did have an order. Did we want to run the vag path? I spoke with Dr. Owens and she stated that he would have wanted the vag path specimen run. Could I put the order in? I put the order in,collected it and they will run it. Lula León.
[2019-09-11 15:33] LABS: Chlamydia Result Negative (Negative); GC Result Negative (Negative)
== END 2019-09-10 02:55 | disposition home or self-care (01) ==
LOC: ER 02:58
PROVIDERS: Emergency Provider Emergency Medicine
DX: R10.2 Pelvic and perineal pain (principal); R11.0 Nausea
CPT/HCPCS: 36415; 80053; 81025; 83690; 87491; 87591; 96374; 96375; 99284; 81003; 81015; 85025; 87480; 87510; 87660; 99283; J1885; J2405

== ENCOUNTER 2019-09-18 08:18 | Emergency (ER) | payer MEDICAID, SELFPAY ==
[2019-09-18 08:23] VITALS: BP 118/80; PULSE 71; RESP 18; TEMP 36.5; O2SAT 98
--- NOTE | 2019-09-18 08:29 | ED.GENADUL_ITS ---
Discharge Plan Disposition Patient Disposition: HOME Condition: Stable Discharge Details Chief Complaint: Abd Prob Clinical Impression: Abdominal pain Primary Care Provider: Dalila,Local ED Provider: Sanjiv Doyle Home Meds and New Rx's Prescriptions: New ondansetron HCl [Zofran] 4 mg tablet 4 mg PO Q8H PRNQty: 10 RF: 0 Continued ibuprofen 600 mg tablet 600 mg PO Q8H PRNQty: 15 RF: 0 valacyclovir [Valtrex] 500 mg Tablet 500 mg PO PRN PRNRF: 0 levothyroxine 150 mcg Tablet 175 mcg PO DAILY RF: 0 Discharge Instructions Instructions: Abdominal Pain (ED) Additional Instructions: Zofran as directed. Clear liquid diet, advance as tolerated. Work-up in the ER today did not reveal any obvious emergent or surgical process. I strongly recommend you reach out to your primary care provider later today for prompt outpatient reevaluation. Eventual surgical referral may be indicated if symptoms persist. Please watch for new or worsening symptoms and return to the ER for any concerns Medical Decision Making 23-year-old female who presents with acute on chronic abdominal pain. Reports that roughly 1 hour ago she drank a cup of coffee, developed nausea, vomiting, epigastric cramping and burning. She reports that her symptoms that she presented with 8 days ago to the ER have resolved completely. She appears well, nontoxic, no acute distress. Abdominal examination reveals a mild epigastric discomfort to deep palpation, without rigidity, guarding, rebound. Certainly nonsurgical. Patient is approximately 2 weeks late on her current menstrual cycle, denies any vaginal bleeding or discharge. She did have vaginal swab obtained 8 days ago which were negative. Differential today includes but not excluded to gastritis, ulcer, biliary colic, pancreatitis, gastroenteritis, etc. Her pain is in the epigastric region, appears to be unrelated to her visit 8 days ago, I believe that diagnosis such as UTI, pyelonephritis, ovarian cyst, etc. are highly unlikely given her presentation. Will obtain CBC, CMP, lipase, urinalysis and a serum test. In the meantime we will give a GI cocktail. Laboratory values reveal a white count of 8.98 hemoglobin 12.9 hematocrit 37.9 platelet count 391. Electrolytes are unremarkable, creatinine 0.90 with a GFR greater than 60. Total bilirubin 0.3 AST 27 ALT 68 alk phos 85 lipase 161 serum hCG negative. Urinalysis with trace blood otherwise unremarkable dip, microscopic reveals 5-10 high-power field red cells. Reviewing her last visit she did have mild hematuria. Examination is not consistent with renal stone. Upon reevaluation she is resting comfortably using her cell phone. She appears well, nontoxic and in no acute distress. When asked if she felt any improvement with her GI cocktail she said it had not really made much of a difference. Will give 30 IV Toradol. Upon reevaluation she reports relief with the IV medication. She has no additional questions or concerns and is comfortable discharge at this time. We discussed the importance of outpatient follow-up through her primary care provider for her ongoing abdominal pain, eventually surgical referral may be indicated for potential endoscopy, HIDA scan, etc. for further evaluation of her ongoing discomfort. She was encouraged to watch for new or worsening symptoms and return to the ER for any concerns Medical Records Medical records reviewed: Yes I reviewed the patient's medical records. Lab Data Lab results reviewed: Yes I reviewed the patient's lab results. Lab results narrative: Laboratory Tests Range/Units 09/18/19 09/18/19 09/18/19 08:35 08:35 08:35 WBC (4.4-10.8) k/cumm 8.98 RBC (4.00-5.20) m/cumm 4.21 Hgb (12.0-15.5) g/dL 12.9 Hct (36.0-46.0) % 37.9 MCV (80-95) fL 90.0 MCH (27.0-33.0) pg 30.6 MCHC (32.0-36.0) g/dL 34.0 RDW (11.7-14.6) % 13.0 Plt Count (130-400) x1000/uL 391 MPV (8.0-11.0) fL 9.6 Immature Gran % % 0.2 Neutrophils % 59.4 Lymphocytes % 29.8 Monocytes % 8.8 Eosinophils % 1.4 Basophils % 0.4 Absolute Neutrophils (1.2-6.7) k/cumm 5.32 Absolute Lymphocytes (1.2-3.4) k/cumm 2.68 Absolute Monocytes (0.11-0.7) k/cumm 0.79 H Absolute Eosinophils (0.0-0.7) k/cumm 0.13 Absolute Basophils (0.0-0.2) k/cumm 0.04 Sodium (136-145) mmol/L 141 Potassium (3.5-5.1) mmol/L 3.9 Chloride (98-107) mmol/L 103 Carbon Dioxide (21.0-32.0) mmol/L 28.5 Anion Gap (3-11) mmol/L 9.5 BUN (7-18) mg/dL 12 Creatinine (0.55-1.02) mg/dL 0.90 Estimated GFR/1.73 m2 (mL/min/1.73m2) >= 60.00 Glucose (74-106) mg/dL 99 Calcium (8.5-10.1) mg/dL 9.2 Total Bilirubin (0.2-1.0) mg/dL 0.3 AST (15-37) U/L 27 ALT (14-59) U/L 68 H Alkaline Phosphatase (46-116) U/L 85 Total Protein (6.4-8.2) g/dL 7.7 Albumin (3.4-5.0) g/dL 3.8 Lipase (73-393) U/L 161 Serum HCG, Qual Negative Urine Color (Yellow) Urine Clarity (Clear) Urine pH (5-8) Ur Specific [employer] (1.005-1.025) Urine Protein (Negative) mg/dL Urine Ketones (Negative) mg/dL Urine Blood (Negative) Urine Nitrite (Negative) Urine Bilirubin (Negative) Urine Urobilinogen (Up TO 0.2) EU/dL Ur Leukocyte Esterase (Negative) Urine RBC (0-2) HPF Urine WBC (0-5) HPF Ur Epithelial Cells (Negative) HPF Urine Crystals (Negative) HPF Urine Bacteria (Negative) HPF Urine Casts (Negative) LPF Urine Mucus (Negative) Urine Other (Negative) Ur Culture Indicated? Urine Glucose (Negative) mg/dL Range/Units 09/18/19 08:37 WBC (4.4-10.8) k/cumm RBC (4.00-5.20) m/cumm Hgb (12.0-15.5) g/dL Hct (36.0-46.0) % MCV (80-95) fL MCH (27.0-33.0) pg MCHC (32.0-36.0) g/dL RDW (11.7-14.6) % Plt Count (130-400) x1000/uL MPV (8.0-11.0) fL Immature Gran % % Neutrophils % Lymphocytes % Monocytes % Eosinophils % Basophils % Absolute Neutrophils (1.2-6.7) k/cumm Absolute Lymphocytes (1.2-3.4) k/cumm Absolute Monocytes (0.11-0.7) k/cumm Absolute Eosinophils (0.0-0.7) k/cumm Absolute Basophils (0.0-0.2) k/cumm Sodium (136-145) mmol/L Potassium (3.5-5.1) mmol/L Chloride (98-107) mmol/L Carbon Dioxide (21.0-32.0) mmol/L Anion Gap (3-11) mmol/L BUN (7-18) mg/dL Creatinine (0.55-1.02) mg/dL Estimated GFR/1.73 m2 (mL/min/1.73m2) Glucose (74-106) mg/dL Calcium (8.5-10.1) mg/dL Total Bilirubin (0.2-1.0) mg/dL AST (15-37) U/L ALT (14-59) U/L Alkaline Phosphatase (46-116) U/L Total Protein (6.4-8.2) g/dL Albumin (3.4-5.0) g/dL Lipase (73-393) U/L Serum HCG, Qual Urine Color (Yellow) Yellow Urine Clarity (Clear) Clear Urine pH (5-8) 6.0 Ur Specific [employer] (1.005-1.025) >= 1.030 H Urine Protein (Negative) mg/dL Negative Urine Ketones (Negative) mg/dL Negative Urine Blood (Negative) Trace-intact H Urine Nitrite (Negative) Negative Urine Bilirubin (Negative) Negative Urine Urobilinogen (Up TO 0.2) EU/dL 0.2 Ur Leukocyte Esterase (Negative) Negative Urine RBC (0-2) HPF 5-10 H Urine WBC (0-5) HPF Negative Ur Epithelial Cells (Negative) HPF Many Urine Crystals (Negative) HPF Negative Urine Bacteria (Negative) HPF Many Urine Casts (Negative) LPF Negative Urine Mucus (Negative) Negative Urine Other (Negative) Few renal Ur Culture Indicated? No/sq. contamination Urine Glucose (Negative) mg/dL Negative HPI General Mode of arrival: ambulatory . Date/Time Provider Initiated Documentation: 09/18/19 08:19 . Limitations to Documentation: no limitations . Information obtained by: patient . HPI Narrative: This is a 23-year-old female with a history of hypothyroidism presenting with nausea, vomiting, epigastric discomfort that began early this morning. She reports that she had breakfast very early between 3 and 4 AM, was asymptomatic. Had a cup of coffee roughly 1 hour ago and reports that she became nauseous, vomited x1, now with epigastric discomfort that is crampy, burning, fairly consistent. Of note she was seen in the ER 8 days ago for lower abdominal pain that she reports has gone completely. She has subsequently followed up with her primary care provider and does have ongoing outpatient care. She reports that she did bring up this epigastric discomfort to them, they recommended that she continue checking test given she is 2 weeks late on her menstrual cycle, and if she is not t hen they will initiate a further outpatient work-up. She denies bad food exposure, sick contacts, recent illness or trauma. She denies fever, chest pain, shortness of breath. Reports chronic back pain that is unchanged today. Denies dysuria, hematuria. Denies constipation or diarrhea. Normal bowel movement over the past 24 hours. She reports that her last menstrual cycle was approximately 6 weeks ago, she is sexually active with one partner, and does feel as though this is a similar sensation to her previous . She denies any vaginal bleeding or discharge, exposure to STD. Related Data Home Medications Medication Instructions Recorded Confirmed levothyroxine 175 mcg PO DAILY 01/16/19 09/18/19 ibuprofen 600 mg PO Q8H PRN #15 tab 09/10/19 09/18/19 ondansetron HCl [Zofran] 4 mg PO Q8H PRN #10 tab 09/18/19 valacyclovir [Valtrex] 500 mg PO PRN PRN 09/18/19 09/18/19 Previous Rx's Medication Instructions Recorded ibuprofen 600 mg PO Q8H PRN #15 tab 09/10/19 ondansetron HCl [Zofran] 4 mg PO Q8H PRN #10 tab 09/18/19 Allergies Allergy/AdvReac Type Severity Reaction Status Date / Time No Known Allergies Allergy Unverified 09/10/19 02:01 General Stated Complaint: Abd Prob JEANETTE: 3 Review of Systems Constitutional Constitutional: Denies fatigue, Denies fever(s) and Denies headache(s) ENT Ears, Nose, Mouth, and Throat: Denies headache(s) and Denies sore throat Cardiovascular Cardiovascular: Denies chest pain and Denies dyspnea Respiratory Respiratory: Denies cough and Denies dyspnea Gastrointestinal Gastrointestinal: Reports abdominal pain, Denies constipation, Denies diarrhea, Reports nausea and Reports vomiting Genitourinary Genitourinary: Denies metrorrhagia, Denies dysuria and Denies vaginal discharge Musculoskeletal Musculoskeletal: Reports back pain (Chronic) Integumentary/Breasts Skin/Breast: Denies rash Neurologic Neurologic: Denies headache(s) Endocrine Endocrine: Denies fatigue [facility] Medical History Hypothyroidism (Chronic) Surgical History No significant past surgical history (Acute) Social History Smoking/Tobacco Use Status: Former Tobacco Use Alcohol Intake: former Drug use: Never Substance use type: does not use Do you feel safe at home: Yes Do you feel safe in your relationship?: Yes Exam Const General: cooperative, healthy appearing, comfortable and no acute distress Orientation: alert, awake and oriented x3 HENMT Head: normal to inspection, normocephalic and atraumatic Mouth: moist mucous membranes Eyes Conjunctivae: conjunctivae normal Sclera: sclerae normal Neck Neck: normal visual inspection, full ROM, trachea midline and supple Resp Effort & Inspection: normal respiratory effort and able to speak in complete sentences Auscultation: clear to auscultation bilaterally Cardio Rate: regular rate Rhythm: regular rhythm GI Palpation: soft, not firm, no guarding, not rigid and tender in the epigastrum (Mild discomfort to deep palpation); with no rebound tenderness Auscultation: normal bowel sounds Back/Spine/Pelvis Back: No back tenderness Skin General skin exam: no rashes or lesions noted Neuro General: patient alert, patient awake, moves all extremities and no focal motor deficits Speech: speech normal Gait: normal gait Sensory Exam: no sensory deficits noted Extrem General: normal to inspection, full ROM and capillary refill normal Psych Appearance: grossly normal Mental Status: mental status grossly normal Course Vital Signs Vital signs: Vital Signs Temperature 36.5 C 09/18/19 08:23 Pulse 71 09/18/19 08:23 Respiratory Rate 18 09/18/19 08:23 Blood Pressure 118/80 09/18/19 08:23 Pulse Oximetry 98 09/18/19 08:23 Temperature 36.5 C 09/18/19 08:23 Temperature Source Skin 09/18/19 08:23 Pulse 71 09/18/19 08:23 Respiratory Rate 18 09/18/19 08:23 Respiratory Effort Non-Labored 09/18/19 08:27 Blood Pressure 118/80 09/18/19 08:23 Blood Pressure Position Sitting 09/18/19 08:23 Pulse Oximetry 98 09/18/19 08:23 Oxygen Delivery Method Room Air 09/18/19 08:23 Oxygen Flow Rate 0 09/18/19 08:23 Pain Level 7 09/18/19 08:23
[2019-09-18 08:43] LABS: Abs Immature Grans 0.02 k/cumm (0.0-0.09); Absolute Basophil Count 0.04 k/cumm (0.0-0.2); Absolute Eosinophil Count 0.13 k/cumm (0.0-0.7); Absolute Lymphocyte Count 2.68 k/cumm (1.2-3.4); Absolute Monocyte Count 0.79 k/cumm (0.11-0.7); Absolute Neutrophil Count 5.32 k/cumm (1.2-6.7); Basophils % 0.4; Eosinophils % 1.4; HCT 37.9 % (36.0-46.0); HGB 12.9 g/dL (12.0-15.5); Immature Grans % 0.2 %; Lymphocytes % 29.8; Mean Corpuscular Hemoglobin 30.6 pg (27.0-33.0); Mean Platelet Volume 9.6 fL (8.0-11.0); Monocytes % 8.8; Neutrophils % 59.4; Platelet Count 391 x1000/uL (130-400); RBC 4.21 m/cumm (4.00-5.20); White Blood Cell Count 8.98 k/cumm (4.4-10.8)
[2019-09-18 08:47] LABS: Bilirubin Negative (Negative); Blood Trace-intact (Negative); Clarity Clear (Clear); Glucose Negative (Negative); Ketones Negative (Negative); Leukocyte Esterase Negative (Negative); Nitrite Negative (Negative); Specific Gravity >= 1.030 (1.005-1.025); Urobilinogen 0.2 EU/dL (Up TO 0.2)
[2019-09-18 08:51] LABS: HCG Qual (Serum) Negative
[2019-09-18 08:56] LABS: ALT 68 U/L (14-59); AST 27 U/L (15-37); Albumin 3.8 g/dL (3.4-5.0); Alkaline Phosphatase 85 U/L (46-116); Anion Gap 9.5 mmol/L (3-11); BUN 12 mg/dL (7-18); Bilirubin, Total 0.3 mg/dL (0.2-1.0); CO2 28.5 mmol/L (21.0-32.0); Calcium 9.2 mg/dL (8.5-10.1); Chloride 103 mmol/L (98-107); Glucose 99 mg/dL (74-106); Lipase 161 U/L (73-393); Potassium 3.9 mmol/L (3.5-5.1); Sodium 141 mmol/L (136-145); Total Protein 7.7 g/dL (6.4-8.2)
[2019-09-18 08:59] LABS: Bacteria Many HPF (Negative); Casts Negative LPF (Negative); Crystals Negative HPF (Negative); Epithelial Cells Many HPF (Negative); Mucus Negative (Negative); Other Cells Few Renal (Negative); WBC Negative HPF (0-5)
[2019-09-18 09:00] LABS: C & S Indicated? No/Sq. Contamination
[2019-09-18] MEDS: Ketorolac 30 MG/ML VIAL IVP (09:45)
[2019-09-18 09:49] VITALS: BP 131/84; PULSE 69; RESP 16; TEMP 36.9; O2SAT 98
[2019-09-18 10:02] VITALS: BP 131/84; PULSE 69; RESP 16; TEMP 36.9; O2SAT 98
== END 2019-09-18 10:26 | disposition home or self-care (01) ==
PROVIDERS: Emergency Provider Physician Assistant
DX: R10.13 Epigastric pain (principal); N92.6 Irregular menstruation, unspecified
CPT/HCPCS: 80053; 83690; 96374; 99284; 81003; 81015; 84703; 85025; J1885

== ENCOUNTER 2019-11-07 04:08 | Outpatient (CLI) | payer MEDICAID, SELFPAY ==
[2019-11-07 14:33] LABS: FREE T4 1.59 ng/dL (0.76-1.46); TSH 0.78 uIU/mL (0.36-3.74)
== END 2019-11-07 04:28 ==
PROVIDERS: PCP Family Medicine; Visit Provider Internal Medicine Endocrinology, Diabetes & Metabolism
DX: E89.0 Postprocedural hypothyroidism (principal)
CPT/HCPCS: 36415; 84439; 84443

== ENCOUNTER 2019-11-29 05:18 | Outpatient (CLI) | payer MEDICAID, SELFPAY ==
[2019-11-29 22:45] LABS: FSH 2.7 mIU/mL (See Note); Prolactin 7.5 ng/mL (See Table)
[2019-12-01 08:58] LABS: DHEA Sulfate 77 ug/dL (96-512)
[2019-12-03 09:53] LABS: Testosterone, Free 0.92 ng/dL (0.06-1.06); Testosterone, Total 46 ng/dL (8-60)
== END 2019-11-29 05:38 ==
PROVIDERS: PCP Family Medicine; Visit Provider Nurse Practitioner Women's Health
DX: N92.6 Irregular menstruation, unspecified (principal)
CPT/HCPCS: 36415; 82627; 84402; 84403; 83001; 84146

== ENCOUNTER 2019-12-29 00:24 | Emergency (ER) | payer MEDICAID, SELFPAY ==
[2019-12-29 00:29] VITALS: BP 108/64; PULSE 89; RESP 16; TEMP 36.3; O2SAT 98
[2019-12-29 00:45] LABS: Bilirubin Negative (Negative); Blood Negative (Negative); Clarity Sl Cloudy (Clear); Glucose Negative (Negative); Ketones Negative (Negative); Leukocyte Esterase Small (Negative); Nitrite Negative (Negative); Specific Gravity >= 1.030 (1.005-1.025); Urobilinogen 0.2 EU/dL (Up TO 0.2)
--- NOTE | 2019-12-29 00:45 | DI.CT_ITS ---
EXAM: CT RENAL COLIC WO INDICATION: right back pain. COMPARISON: CT CT ABDOMEN PELVIS W from 04/19/2019 TECHNIQUE: CT examination was performed without contrast administration. FINDINGS: Images obtained through the lung bases are unremarkable. Visualized portions of the liver and splee n appear intact. Visualized portions of the pancreas are unremarkable. Note is made of cholelithiasis without evidence of biliary dilatation. No gallbladder wall thickenin g or pericholecystic fluid collection. Abdominal aorta is of normal diameter. No significant abdominal wall hernia. No significant abdominal or pelvic adenopathy. Adrenals appear normal bilaterally. The kidneys are normal in size and shape. There is no evidence of a renal mass, hydronephrosis, or n ephrolithiasis. No ureteral dilatation or calcification identified. Urinary bladder is unremarkable in appearance. IMPRESSION: Negative noncontrast abdominal and pelvic CT. No urinary tract calcification or obstruction. Incidental finding of cholelithiasis. RADIATION DOSE DELIVERED: 1,135.8mGy.cm Total DLP
--- NOTE | 2019-12-29 00:45 | ED.GENADUL_ITS ---
Discharge Plan Disposition Patient Disposition: HOME Condition: Good Discharge Details Clinical Impression: Back pain Primary Care Provider: Marva Hitchcock ED Provider: Ariel Adler Home Meds and New Rx's Prescriptions: Continued albuterol sulfate 90 mcg/actuation HFA aerosol inhaler 2 puff inhalation Q6H PRNRF: 0 naproxen 500 mg tablet 500 mg PO PRN RF: 0 valacyclovir [Valtrex] 500 mg Tablet 500 mg PO PRN PRNRF: 0 levothyroxine 150 mcg tablet 200 mcg PO DAILY RF: 0 Discharge Instructions Instructions: Back Pain (ED) Additional Instructions: Urine does not show evidence of infection. CT scan shows no kidney stone or other acute abnormality. Blood work is normal. Pain likely musculoskeletal in nature. Gentle stretching, heat, [id number] pain medication and follow-up with primary care in 1 to 2 weeks if not better. Return to ED for fever, abdominal pain, other concerns. Referrals: Marva Hitchcock [Primary Care Provider] - Medical Decision Making Patient presenting with right buttock pain. In summary sounds musculoskeletal but in other sounds like renal colic. Urine test is negative. Urinalysis with trace leuks but negative micro. No blood. Patient describing waxing and waning pain and debility. Comfortable tonight with associated nausea. Will give IV fluids, Toradol, Zofran and proceed with basic labs and stone study. CBC and BMP unremarkable. Stone study normal. No acute findings. Pain, therefore, most likely musculoskeletal back pain. Recommend continuing ibuprofen along with gentle stretching and heat. Follow-up primary care next week if not better. Return to ED if abdominal pain, fever, other concerns. Lab Data Lab results reviewed: Yes I reviewed the patient's lab results. HPI General Mode of arrival: ambulatory . Date/Time Provider Initiated Documentation: 12/29/19 00:45 . Limitations to Documentation: no limitations . Information obtained by: patient and RN notes reviewed . HPI Narrative: Patient presents to ED with right back pain. Symptoms started a couple of days ago. She initially thought it was because she lifted something wrong. It did seem to be worse with movement but not all the time. It waxes and wanes in intensity. Not really moving anywhere. Tonight she has been very uncomfortable and not able to sleep. She has nausea. One episode of vomiting yesterday. No abdominal pain. No urinary symptoms. No fever, cough, shortness of breath. No previous history of kidney stones or infection. Related Data Home Medications Medication Instructions Recorded Confirmed valacyclovir [Valtrex] 500 mg PO PRN PRN 09/18/19 11/28/19 albuterol sulfate 90 mcg/actuation 2 puff INHALATION Q6H PRN 11/28/19 11/28/19 aerosol inhaler levothyroxine 150 mcg tablet 200 mcg PO DAILY tab 11/28/19 11/28/19 naproxen 500 mg tablet 500 mg PO PRN tab 11/28/19 11/28/19 Allergies Allergy/AdvReac Type Severity Reaction Status Date / Time No Known Allergies Allergy Unverified 12/29/19 00:32 General Stated Complaint: FlankPain JEANETTE: 3 Review of Systems Narrative: As documented in HPI otherwise negative as below. Const: no fever, chills, weakness Resp: no cough, SOB, pleuritic pain CV: no CP, diaphoresis, edema, syncope GI: no abdominal pain, diarrhea Neuro: no headache, numbness, focal weakness, confusion PFSH Medical History Hypothyroidism Surgical History No significant past surgical history Social History Smoking/Tobacco Use Status: Former Tobacco Use Smoking risk assessment performed?: Yes Alcohol Intake: former Drug use: Never Substance use type: does not use Do you feel safe at home: Yes Do you feel safe in your relationship?: Yes Female Reproductive History Menstrual control method: none History History 1 Para 1 Hx # Term Pregnancies Multiple births Hx # Pregnancies Ectopic pregnancies AB induced Hx Number of Living Children AB spontaneous Exam Narrative Exam Narrative: Vitals: Afebrile with normal vitals and normal room air pulse ox. Const: Obese female in NAD. HEENT: NC/AT. Normal facial exam. Eyes: Normal conjunctiva and sclera. Neck: Supple. Trachea midline. Lungs: Normal respiratory effort. Lungs are clear. Cor: RRR without murmur/gallop. Good radial pulses. GI: Soft. NT/ND. No guarding or rebound. Back: No CVAT. No real back tenderness elicited. Neuro: A+O x 3. Normal speech, mentation, gait. Cranial nerves II - XII grossly intact. No gross motor or sensory deficit. Ext: No C/C/E. Skin: Warm and dry without rash. Course Vital Signs Vital signs: Vital Signs Temperature 97.3 F L 12/29/19 00:29 Pulse 89 12/29/19 00:29 Respiratory Rate 16 12/29/19 00:29 Blood Pressure 108/64 12/29/19 00:29 Pulse Oximetry 98 12/29/19 00:29 Temperature 97.3 F L 12/29/19 00:29 Temperature Source Skin 12/29/19 00:29 Pulse 89 12/29/19 00:29 Respiratory Rate 16 12/29/19 00:29 Respiratory Effort Non-Labored 12/29/19 00:34 Blood Pressure 108/64 12/29/19 00:29 Pulse Oximetry 98 12/29/19 00:29 Oxygen Delivery Method Room Air 12/29/19 00:29 Oxygen Flow Rate 0 12/29/19 00:29 Pain Level 7 12/29/19 00:29 Lab/Test Results Lab/Test Results: POC- Test(urine) Negative
[2019-12-29 00:47] LABS: Bacteria Few HPF (Negative); C & S Indicated? No/Sq. Contamination; Casts Negative LPF (Negative); Crystals Negative HPF (Negative); Epithelial Cells Moderate HPF (Negative); Mucus Negative (Negative); RBC Negative HPF (0-2)
[2019-12-29] MEDS: Normal Saline 1,000 ML 1000 ML IV (01:08)
[2019-12-29] MEDS: Ondansetron 4 MG/2 ML VIAL IVP (01:09)
[2019-12-29] MEDS: Ketorolac 30 MG/ML VIAL IVP (01:11)
[2019-12-29 01:14] LABS: Abs Immature Grans 0.03 10^3/uL (0.0-0.06); Absolute Basophil Count 0.03 10^3/uL (0.0-0.2); Absolute Eosinophil Count 0.19 10^3/uL (0.0-0.7); Absolute Lymphocyte Count 2.63 10^3/uL (1.2-3.4); Absolute Monocyte Count 0.65 10^3/uL (0.1-0.8); Absolute Neutrophil Count 6.68 10^3/uL (1.2-6.7); Basophils % 0.3; Eosinophils % 1.9; HCT 41.3 % (36.0-46.0); HGB 13.7 g/dL (11.2-15.7); Immature Grans % 0.3; Lymphocytes % 25.8; MCH 29.1 pg (27.0-33.0); MCHC 33.2 % (32.0-36.0); MCV 87.9 fL (80-95); MPV 9.8 fL (8.0-11.0); Monocytes % 6.4; Neutrophils % 65.3; Nucleated RBC 0 %; Platelet Count 320 10^3/uL (130-400); RDW 12.7 % (11.7-14.6); RDW-SD 40.8 fL; WBC 10.21 10^3/uL (4.4-10.8)
[2019-12-29 01:21] LABS: Anion Gap 8.4 mmol/L (3-11); BUN 12 mg/dL (7-18); CO2 27.6 mmol/L (21.0-32.0); CREATININE 0.87 mg/dL (0.55-1.02); Calcium 9.1 mg/dL (8.5-10.1); Chloride 104 mmol/L (98-107); Glucose 124 mg/dL (74-106); Potassium 3.8 mmol/L (3.5-5.1); Sodium 140 mmol/L (136-145)
--- NOTE | 2019-12-29 01:47 | DI.VRAD_ITS ---
PROCEDURE INFORMATION: Exam: CT Abdomen And Pelvis Without Contrast Exam date and time: 12/29/2019 1:34 AM Age: 24 years old Clinical indication: Abdominal pain; Localized; Patient HX: Right back pain xfew days with nausea TECHNIQUE: Imaging protocol: Computed tomography of the abdomen and pelvis without contrast. Radiation optimization: All CT scans at this facility use at least one of these dose optimization techniques: automated exposure control; mA and/or kV adjustment per patient size (includes targeted exams where dose is matched to clinical indication); or iterative reconstruction. COMPARISON: CT ABDOMEN PELVIS W 04/19/2019 12:39 AM FINDINGS: Liver: Hepatic steatosis. Gallbladder and bile ducts: Cholelithiasis. Pancreas: Normal. No ductal dilation. Spleen: Normal. No splenomegaly. Adrenal glands: Normal. No mass. Kidneys and ureters: Normal. No hydronephrosis. Stomach and bowel: Unremarkable. No obstruction. No mucosal thickening. Appendix: No evidence of appendicitis. Intraperitoneal space: Unremarkable. No free air. No significant fluid collection. Vasculature: Unremarkable. No abdominal aortic aneurysm. Lymph nodes: Unremarkable. No enlarged lymph nodes. Urinary bladder: Unremarkable as visualized. Reproductive: Unremarkable as visualized. Bones/joints: Unremarkable. No acute fracture. Soft tissues: Unremarkable. IMPRESSION: No acute finding. Dictated and Authenticated by: Jayson Boone MD. Ordering:GABRIEL George MD
[2019-12-29 02:12] VITALS: BP 115/76; PULSE 73; RESP 16; O2SAT 98
== END 2019-12-29 02:20 | disposition home or self-care (01) ==
PROVIDERS: Emergency Provider Emergency Medicine; PCP Family Medicine
DX: M54.5 Low back pain (principal); R11.0 Nausea
CPT/HCPCS: 80048; 81025; 96361; 96374; 96375; 99285; 74176; 81003; 81015; 85025; 99284; J1885; J2405

== ENCOUNTER 2020-01-29 08:42 | Emergency (ER) | payer MEDICAID, SELFPAY ==
[2020-01-29] VITALS (23 sets, daily range): BP systolic 109–131; BP diastolic 66–94; PULSE 57–91; RESP 12–28; TEMP 36.5; O2SAT 98–100
--- NOTE | 2020-01-29 08:30 | RT.EKG_ITS ---
APPROVED REPORT Exam: Resting ECG Patient Location: E HR:64 bpm ECG Measurements Heart Rate 64 AXIS AZ 175 P 33 QRSd 91 QRS 31 QT 406 T 17 QTc 421 Conclusion Sinus rhythm...normal P axis, V-rate 60- 99 Normal Electrocardiogram
--- NOTE | 2020-01-29 08:58 | ED.GENADUL_ITS ---
Discharge Plan Disposition Patient Disposition: HOME Condition: Improving Discharge Details Clinical Impression: Nausea and vomiting, Burning chest pain, Epigastric abdominal pain, Cholelithiasis Primary Care Provider: Marva Hitchcock ED Provider: Tyra Owens Home Meds and New Rx's Prescriptions: New promethazine 25 mg tablet 25 mg PO TID PRN (Reason: nausea and vomiting) Qty: 7 RF: 0 Continued albuterol sulfate 90 mcg/actuation HFA aerosol inhaler 2 puff inhalation Q6H PRNRF: 0 naproxen 500 mg tablet 500 mg PO PRN RF: 0 valacyclovir [Valtrex] 500 mg Tablet 500 mg PO PRN PRNRF: 0 levothyroxine 150 mcg tablet 200 mcg PO DAILY RF: 0 acetaminophen 500 mg Tablet 500 mg PO QID PRNRF: 0 Discharge Instructions Instructions: Chest Pain (ED), Acute Nausea and Vomiting (ED), Epigastric Pain (ED) Additional Instructions: Drink plenty of fluids and get plenty of rest. Take the Phenergan as needed and directed for nausea and vomiting. Avoid fried or fatty foods while pain still present. Follow-up with general surgery for reevaluation and if pain persists for consideration for upper endoscopy to rule out stomach or intestinal ulcers or for further evaluation of gallstones if they may be the cause of your pain and nausea. Return immediately to the emergency department if you develop any worsening or new concerning symptoms. Stand Alone Forms: Work Release Referrals: Ayla Solomon DO [OSTEOPATHIC DOCTOR] - Discharge Data Discharge Date/Time-TO BE ENTERED AT DEPARTURE: 01/29/20 13:32 Discharge Physician: Tyra Owens Medical Decision Making 0900 -- 24-year-old female with a history of hypothyroidism presents with substernal chest and upper abdominal pain with nausea and vomiting since 1 AM this morning that awoke her from sleep. Vitals within normal limits. She appears uncomfortable and nauseous. Her lungs are clear. Her epigastrium is tender. She vomited bile during my evaluation. Suspect most likely a GI etiology as she ate tacos for dinner and she describes the pain as a burning chest pain associated with abdominal pain. EKG notes a rate of 64, sinus with no acute ST-T wave ischemic changes. We will obtain screening labs, CT chest and abdomen, gallbladder ultrasound and give a dose of Pepcid, GI cocktail, Zofran and fluids and reassess. 1130 --patient vomiting again and still with pain. Will give a dose of Phenergan and Morphine. Labs reviewed. White blood cell count 11. Troponin negative. Lipase negative. TSH elevated but with normal T4. 1245 -- Ultrasound and CT notes cholelithiasis but no obvious signs of cholecystitis. Patient reassessed and she feels much better and feels good to go home. We will send with Phenergan. She is given a work note. Patient placed on surgery follow-up list. Usual and customary return precautions given prior to discharge. Medical Records Medical records reviewed: Yes I reviewed the patient's medical records. Imaging Data Radiologic Study: Radiologist's impression: CT CHEST/ABD/PEL W CLINICAL HISTORY: chest and upper abd pain TECHNIQUE: Imaging Protocol: Axial computed tomography images with coronal and sagittal reformatted images were created and reviewed CONTRAST MATERIAL: Intravenous: Omnipaque 350 Contrast volume:125 cc Oral: yes / no COMPARISON: CT CT RENAL COLIC WO from 12/29/2019 FINDINGS: CHEST: There are mild symmetrical dependent markings in the lung bases but no confluent infiltrates nor pleural effusions. No ominous pulmonary nodules evident. There are no findings in the trachea and mainstem bronchi. There is no hilar nor mediastinal adenopathy. Mild increased signal tissue in the anterior mediastinal fat is probably thymus remnant. No axillary adenopathy. Heart size is normal. There is no pericardial effusion. Caliber thoracic aorta is within normal limits. ABDOMEN: There is no ascites. Liver is hypodense signifying significant steatosis. No discrete focal hepatic lesions. Left hepatic lobe extends to in cervical the spleen across the midline which is a variant of normal. There are no lesions at this location. Gallbladder is slightly distended and contains gallstones. No gallbladder wall edema nor pericholecystic fluid. The CBD is not dilated. Pancreas appears unremarkable. Spleen is not enlarged there are no significant adrenal masses. No significant focal findings in the kidneys. No hydronephrosis. The abdominal aorta is not enlarged and there is no uijezaxvpyrqxsi-bzpw-htbjat adenopathy. There is no evidence of anterior abdominal wall hernia. Bowel obstruction, nor free air. PELVIS: There is no intrapelvic nor inguinal adenopathy. Uterus and adnexal regions appear age-appropriate. Partially crenated cyst in the right ovary is noted. No free or. There is small amount of adjacent free fluid in the right adnexa. Appendix appears unremarkable. No significant sigmoid diverticular disease. Bone windows reveal no lytic osseous lesions. Multilevel Schmorl's nodes are noted in the lumbar spine. IMPRESSION: 1. Cholelithiasis. Gallbladder is also slightly distended although does not appear obviously edema is. The CBD is not dilated. There is no dilatation of intrahepatic ducts. 2. Hepatic steatosis. Correlation appropriate hepatic blood work is recommended. 3. Cyst right ovary with small amount of adjacent fluid, probably follicular. There is no evidence for appendicitis. 4. Mildly increased symmetrical lung base markings. No confluent infiltrates nor pleural effusions nor intrathoracic adenopathy. US ABDOMEN LIMITED CLINICAL HISTORY: epigastric pain, vomiting, r/o cholecystitis TECHNIQUE: Ultrasound abdomen performed using standard protocol. COMPARISON: No exams were available for comparison FINDINGS: ABDOMINAL AORTA AND IVC: Visualized portions normal caliber. There is no ascites. The liver is mildly prominent and hyperechoic indicating steatosis. There is no discrete focal hepatic lesion on images. There are Multiple shadowing gallstones.. Possible also polyps. Gallbladder wall does not appear edematous. There is no pericholecystic fluid. Common hepatic duct is not dilated, measuring 4 millimeters. Pancreas appears unremarkable. Spleen is not enlarged. Right kidney unremarkable. IMPRESSION: 1. Cholelithiasis. There are shadowing gallstones in the gallbladder lumen. The gallbladder does not appear edematous. Apparently the patient was not very tender over this area during scanning today. CBD is not dilated. 2. Hepatic steatosis. Correlation appropriate blood work is recommended. 3. No splenomegaly and no ascites evident in the upper abdomen.. Lab Data Lab results reviewed: Yes I reviewed the patient's lab results. Labs: Laboratory Tests Range/Units 01/29/20 01/29/20 01/29/20 08:52 08:52 08:52 WBC (4.4-10.8) 10^3/uL 11.73 H RBC (3.93-5.22) 10^6/uL 4.82 Hgb (11.2-15.7) g/dL 14.1 Hct (36.0-46.0) % 42.3 MCV (80-95) fL 87.8 MCH (27.0-33.0) pg 29.3 MCHC (32.0-36.0) % 33.3 RDW (11.7-14.6) % 13.2 Plt Count (130-400) 10^3/uL 340 MPV (8.0-11.0) fL 9.9 Immature Gran % 0.5 Neutrophils % 82.9 Lymphocytes % 12.0 Monocytes % 3.9 Eosinophils % 0.3 Basophils % 0.4 Nucleated RBC % % 0 Absolute Neutrophils (1.2-6.7) 10^3/uL 9.72 H Absolute Lymphocytes (1.2-3.4) 10^3/uL 1.41 Absolute Monocytes (0.1-0.8) 10^3/uL 0.46 Absolute Eosinophils (0.0-0.7) 10^3/uL 0.04 Absolute Basophils (0.0-0.2) 10^3/uL 0.05 Sodium (136-145) mmol/L 138 Potassium (3.5-5.1) mmol/L 3.9 Chloride (98-107) mmol/L 103 Carbon Dioxide (21.0-32.0) mmol/L 27.0 Anion Gap (3-11) mmol/L 8.0 BUN (7-18) mg/dL 9 Creatinine (0.55-1.02) mg/dL 0.80 Estimated GFR/1.73 m2 (mL/min/1.73m2) >= 60.00 Glucose (74-106) mg/dL 111 H Calcium (8.5-10.1) mg/dL 9.4 Magnesium (1.8-2.4) mg/dL 1.7 L Total Bilirubin (0.2-1.0) mg/dL 0.3 AST (15-37) U/L 28 ALT (14-59) U/L 77 H Alkaline Phosphatase (46-116) U/L 77 Troponin I (<0.06) ng/mL < 0.05 Total Protein (6.4-8.2) g/dL 8.4 H Albumin (3.4-5.0) g/dL 4.1 Lipase (73-393) U/L 71 TSH (0.36-3.74) uIU/mL 6.28 H Free T4 (0.76-1.46) ng/dL 0.97 ECG Data Attestation: I personally reviewed and interpreted this ECG (s) as follows: Interpretation: Rate of 64, sinus, no acute ST elevation or depression. AR 175. QRS 91. QTc 421. HPI General Mode of arrival: ambulatory . Date/Time Provider Initiated Documentation: 01/29/20 08:43 . Limitations to Documentation: no limitations . Information obtained by: patient . HPI Narrative: Patient is a 24-year-old with a history of hypothyroidism who presents with aching and burning chest pain that awoke her from sleep at 1 AM. Patient states she ate tacos as her last meal last night. She states her pain radiates to her back and she admits to nausea. She states she vomited a few times this morning at home. She does also admit to some epigastric pain which radiates up into her chest. She denies any fever, cough, shortness of breath, dizziness. She took Tums with morning without relief. She states she went to work a [employer] at 5 AM and had to leave due to her symptoms. Related Data Home Medications Medication Instructions Recorded Confirmed valacyclovir [Valtrex] 500 mg PO PRN PRN 09/18/19 01/29/20 albuterol sulfate 90 mcg/actuation 2 puff INHALATION Q6H PRN 11/28/19 01/29/20 aerosol inhaler levothyroxine 150 mcg tablet 200 mcg PO DAILY tab 11/28/19 01/29/20 naproxen 500 mg tablet 500 mg PO PRN tab 11/28/19 01/29/20 acetaminophen 500 mg PO QID PRN 01/29/20 01/29/20 promethazine 25 mg PO TID PRN #7 tab 01/29/20 Previous Rx's Medication Instructions Recorded promethazine 25 mg PO TID PRN #7 tab 01/29/20 Allergies Allergy/AdvReac Type Severity Reaction Status Date / Time No Known Allergies Allergy Unverified 12/29/19 00:32 General Stated Complaint: Chest Pain JEANETTE: 2 Review of Systems All systems reviewed & are unremarkable except as noted in HPI and below Constitutional Constitutional: Reports as per HPI, Denies chills and Denies fever(s) Eyes Eyes: Denies blurry vision ENT Ears, Nose, Mouth, and Throat: Denies dizziness, Denies sore throat and Denies throat swelling Cardiovascular Cardiovascular: Reports chest pain and Denies dyspnea Respiratory Respiratory: Denies cough and Denies dyspnea Gastrointestinal Gastrointestinal: Reports abdominal pain, Denies diarrhea, Reports nausea and Denies vomiting Genitourinary Genitourinary: Denies hematuria and Denies dysuria Musculoskeletal Musculoskeletal: Denies back pain and Denies numbness Integumentary/Breasts Skin/Breast: Denies lesions and Denies rash Neurologic Neurologic: Denies dizziness, Denies localized weakness and Denies numbness Allergic/Immunologic Allergic/Immunologic: Denies throat swelling PFSH Medical History Hypothyroidism Surgical History No significant past surgical history Social History Smoking/Tobacco Use Status: Former Tobacco Use Smoking risk assessment performed?: Yes Alcohol Intake: former Drug use: Never Substance use type: does not use Do you feel safe at home: Yes Do you feel safe in your relationship?: Yes Female Reproductive History Menstrual control method: none History History 1 Para 1 Hx # Term Pregnancies Multiple births Hx # Pregnancies Ectopic pregnancies AB induced Hx Number of Living Children AB spontaneous Exam Const General: cooperative and uncomfortable Nutritional Appearance: obese morbidly obese Orientation: alert, awake and oriented x3 HENMT Head: normal to inspection Face and sinus: normal facial exam Eyes General: appearance normal, both eyes and all related structures EOM: EOM intact bilaterally Neck Neck: normal visual inspection and No submandibular swelling Lymphatic: no lymphadenopathy noted Chest Chest: normal inspection of the chest and no tenderness Resp Effort & Inspection: normal respiratory effort and able to speak in complete sentences Auscultation: clear to auscultation bilaterally Cardio Rate: regular rate Rhythm: regular rhythm GI Inspection: normal to inspection and obesity Palpation: soft, not firm, not rigid and tender in the epigastrum Auscultation: hypoactive bowel sounds Skin General skin exam: no rashes or lesions noted Neuro General: patient alert, patient awake and patient oriented x3 Cognition: normal cognition Speech: speech normal Motor: muscle tone normal throughout Sensory Exam: no sensory deficits noted Extrem General: normal to inspection, full ROM, capillary refill normal, no calf tenderness bilaterally and no edema Psych Appearance: grossly normal Mental Status: mental status grossly normal Speech and Movement: speech and movement normal Affect: normal affect Course Vital Signs Vital signs: Vital Signs Temperature 97.7 F 01/29/20 08:46 Pulse 71 01/29/20 08:46 Respiratory Rate 16 01/29/20 08:46 Blood Pressure 120/94 H 01/29/20 08:46 Pulse Oximetry 99 01/29/20 08:46 Temperature 97.7 F 01/29/20 08:46 Temperature Source Skin 01/29/20 08:46 Pulse 71 01/29/20 08:46 Respiratory Rate 13 01/29/20 08:50 Respiratory Effort Non-Labored 01/29/20 08:50 Respiratory Depth Normal 01/29/20 08:50 Respiratory Pattern Normal 01/29/20 08:50 Blood Pressure 120/94 H 01/29/20 08:46 Blood Pressure Position Sitting 01/29/20 08:46 Pulse Oximetry 99 01/29/20 08:46 Oxygen Delivery Method Room Air 01/29/20 08:46 Oxygen Flow Rate 0 01/29/20 08:46 Pain Level 9 01/29/20 08:46
[2020-01-29 09:14] LABS: Abs Immature Grans 0.06 10^3/uL (0.0-0.06); Absolute Basophil Count 0.05 10^3/uL (0.0-0.2); Absolute Lymphocyte Count 1.41 10^3/uL (1.2-3.4); Absolute Monocyte Count 0.46 10^3/uL (0.1-0.8); Absolute Neutrophil Count 9.72 10^3/uL (1.2-6.7); Basophils % 0.4; Eosinophils % 0.3; HCT 42.3 % (36.0-46.0); HGB 14.1 g/dL (11.2-15.7); Immature Grans % 0.5; MCH 29.3 pg (27.0-33.0); MCHC 33.3 % (32.0-36.0); MCV 87.8 fL (80-95); MPV 9.9 fL (8.0-11.0); Monocytes % 3.9; Neutrophils % 82.9; Nucleated RBC 0 %; Platelet Count 340 10^3/uL (130-400); RBC 4.82 10^6/uL (3.93-5.22); RDW 13.2 % (11.7-14.6); RDW-SD 41.8 fL; WBC 11.73 10^3/uL (4.4-10.8)
[2020-01-29 09:18] LABS: Absolute Eosinophil Count 0.04 10^3/uL (0.0-0.7)
--- NOTE | 2020-01-29 09:30 | DI.US_ITS ---
EXAM: US ABDOMEN LIMITED CLINICAL HISTORY: epigastric pain, vomiting, r/o cholecystitis TECHNIQUE: Ultrasound abdomen performed using standard protocol. COMPARISON: No exams were available for comparison FINDINGS: ABDOMINAL AORTA AND IVC: Visualized portions normal caliber. There is no ascites. The liver is mildly prominent and hyperechoic indicating steatosis. There is n o discrete focal hepatic lesion on images. There are Multiple shadowing gallstones.. Possible also polyps. Gallbladder wall does not appear edematous. The re is no pericholecystic fluid. Common hepatic duct is not dilated, measuring 4 millimeters. Pancreas appears unremarkable. Spleen is not enlarged. Right kidney unremarkable. IMPRESSION: 1. Cholelithiasis. There are shadowing gallstones in the gallbladder lumen. The gallbladder does no t appear edematous. Apparently the patient was not very tender over this area during scanning today. CBD is not dilated. 2. Hepatic steatosis. Correlation appropriate blood work is recommended. 3. No splenomegaly and no ascites evident in the upper abdomen.. . DATA REPOSITORY:
--- NOTE | 2020-01-29 09:30 | DI.CT_ITS ---
EXAM: CT CHEST/ABD/PEL W CLINICAL HISTORY: chest and upper abd pain TECHNIQUE: Imaging Protocol: Axial computed tomography images with coronal and sagittal reformatted images were created and reviewed CONTRAST MATERIAL: Intravenous: Omnipaque 350 Contrast volume:125 cc Oral: yes / no COMPARISON: CT CT RENAL COLIC WO from 12/29/2019 FINDINGS: CHEST: There are mild symmetrical dependent markings in the lung bases but no confluent infiltrates nor pleu ral effusions. No ominous pulmonary nodules evident. There are no findings in the trachea and nena tem bronchi. There is no hilar nor mediastinal adenopathy. Mild increased signal tissue in the ante rior mediastinal fat is probably thymus remnant. No axillary adenopathy. Heart size is normal. There is no pericardial effusion. Caliber thoracic aorta is within normal prieto its. ABDOMEN: There is no ascites. Liver is hypodense signifying significant steatosis. No discrete focal hepatic lesions. Left hepatic lobe extends to in cervical the spleen across the midline which is a variant of normal. There are no lesions at this location. Gallbladder is slightly distended and contains ga llstones. No gallbladder wall edema nor pericholecystic fluid. The CBD is not dilated. Pancreas ap pears unremarkable. Spleen is not enlarged there are no significant adrenal masses. No significant focal findings in the kidneys. No hydronephrosis. The abdominal aorta is not enlarged and there is no ruwcubaqvigrvmf-mvyi-ottvmr adenopathy. There is no evidence of anterior abdominal wall hernia. Bowel obstruction, nor free air. PELVIS: There is no intrapelvic nor inguinal adenopathy. Uterus and adnexal regions appear age-appropriate. Partially crenated cyst in the right ovary is noted. No free or. There is small amount of adjacent free fluid in the right adnexa. Appendix appears unremarkable. No significant sigmoid diverticular disease. Bone windows reveal no lytic osseous lesions. Multilevel Schmorl's nodes are noted in the lumbar spi ne. IMPRESSION: 1. Cholelithiasis. Gallbladder is also slightly distended although does not appear obviously edema i s. The CBD is not dilated. There is no dilatation of intrahepatic ducts. 2. Hepatic steatosis. Correlation appropriate hepatic blood work is recommended. 3. Cyst right ovary with small amount of adjacent fluid, probably follicular. There is no evidence f or appendicitis. 4. Mildly increased symmetrical lung base markings. No confluent infiltrates nor pleural effusions n or intrathoracic adenopathy. RADIATION DOSE DELIVERED: 1,879.91mGy.cm Total DLP DATA REPOSITORY: All CT scans at this facility are submitted to the National Radiology Data Registry (NRDR) Dose Index Registry (DIR) with the [employer] ([employer]). RADIATION OPTIMIZATION: All CT scans at this facility use at least one of these dose optimization te chniques: automated exposure control; mA and/or kV adjustment per patient size (includes targeted exa ms where dose is matched to clinical indication); or iterative reconstruction.
[2020-01-29 09:35] LABS: ALT 77 U/L (14-59); AST 28 U/L (15-37); Albumin 4.1 g/dL (3.4-5.0); Alkaline Phosphatase 77 U/L (46-116); BUN 9 mg/dL (7-18); Bilirubin, Total 0.3 mg/dL (0.2-1.0); Calcium 9.4 mg/dL (8.5-10.1); Chloride 103 mmol/L (98-107); Glucose 111 mg/dL (74-106); Potassium 3.9 mmol/L (3.5-5.1); Sodium 138 mmol/L (136-145); Total Protein 8.4 g/dL (6.4-8.2)
[2020-01-29] MEDS: Ondansetron 4 MG/2 ML VIAL IVP (09:35)
[2020-01-29 09:47] LABS: Lipase 71 U/L (73-393); Magnesium 1.7 mg/dL (1.8-2.4); TSH (W/Ref FT4) 6.28 uIU/mL (0.36-3.74)
[2020-01-29] MEDS: Normal Saline 1,000 ML 1000 ML IV (09:54)
[2020-01-29] MEDS: FAMOTIDINE 20 MG/50 ML BAG 200 MG IVPB (09:54)
[2020-01-29 09:55] LABS: Troponin I < 0.05 ng/mL (<0.06)
[2020-01-29 10:13] LABS: FREE T4 0.97 ng/dL (0.76-1.46)
[2020-01-29] MEDS: Omnipaque 350 MG/ML 100 ML BTL 125 ML IJ (11:03)
--- NOTE | 2020-01-29 13:18 | NUR.NOTE ---
Referral faxed to [facility]Nursing Note:
== END 2020-01-29 13:32 | disposition home or self-care (01) ==
PROVIDERS: Emergency Provider Physician Assistant; PCP Family Medicine
DX: K80.20 Calculus of gallbladder without cholecystitis without obstruction (principal); R11.2 Nausea with vomiting, unspecified; R10.13 Epigastric pain; R07.9 Chest pain, unspecified
CPT/HCPCS: 36415; 74177; 80053; 81025; 83690; 93005; 96361; 96365; 96375; 99285; 71260; 76705; 83735; 84439; 84443; 84484; 85025; 93010; J2405; J3490

== ENCOUNTER 2020-02-15 07:09 | Day surgery (SDC) | payer MEDICAID, SELFPAY ==
[2020-02-15] VITALS (12 sets, daily range): BP systolic 100–134; BP diastolic 60–96; PULSE 75–106; RESP 14–23; TEMP 36.2–36.8; O2SAT 96–100
--- NOTE | 2020-02-15 07:22 | ED.GENADUL_ITS ---
Discharge Plan Disposition Patient Disposition: [facility] INPATIENT Condition: Good Discharge Details Clinical Impression: Intractable abdominal pain, History of cholelithiasis, Biliary colic Admit Date/Time: 02/15/20 10:22 Admit Provider: Enriqueta Fragoso Attending Provider: Enriqueta Fragoso Primary Care Provider: Marva Hitchcock ED Provider: Tyar Owens Discharge Data Discharge Date/Time-TO BE ENTERED AT DEPARTURE: 02/15/20 10:15 Medical Decision Making <Ariel Adler MD - Last Filed: 02/15/20 20:24> Patient presenting with recurrent RUQ pain. Scheduled for lap mat on Wednesday. Will place IV and give Zofran and morphine. Check labs. No imaging for now. Discuss with surgery. 07:50 - Discussed with Dr. Solomon. Check labs and try to get feeling better. Unable to go to surgery today due to scheduling. If significant lab abnormalities or unable to control pain, may need observation admit. Will sign out to oncoming ED provider. Medical Records Medical records reviewed: Yes I reviewed the patient's medical records. <Tyra Owens DO - Last Filed: 02/15/20 12:56> 0800 -- please see Dr. Rivas's note for initial presentation, exam and plan. 24-year-old female who is scheduled for a lap mat with Dr. Solomon on 02/18. Case endorsed to follow-up on labs and final disposition. Labs reviewed and white blood cell count 11.41. Normal T bili and LFTs. Lipase within normal limits. Patient reassessed and denies any relief after morphine. Will give a dose of Dilaudid. Case discussed with Dr. Fragoso who will check with the OR regarding availability. Will call back after monitoring patient's response to dilaudid. 0900 -- d/w Dr. Fragoso -- will plan to take pt to the OR at 1030am. Rapid Covid test obtained and negative. Medical Records Medical records reviewed: Yes I reviewed the patient's medical records. Lab Data Lab results reviewed: Yes I reviewed the patient's lab results. Labs: Laboratory Tests Range/Units 02/15/20 02/15/20 02/15/20 07:30 07:30 07:30 WBC (4.4-10.8) 10^3/uL 11.41 H RBC (3.93-5.22) 10^6/uL 4.97 Hgb (11.2-15.7) g/dL 14.4 Hct (36.0-46.0) % 43.4 MCV (80-95) fL 87.3 MCH (27.0-33.0) pg 29.0 MCHC (32.0-36.0) % 33.2 RDW (11.7-14.6) % 13.1 Plt Count (130-400) 10^3/uL 456 H MPV (8.0-11.0) fL 9.6 Immature Gran % 0.3 Neutrophils % 74.5 Lymphocytes % 15.9 Monocytes % 8.5 Eosinophils % 0.4 Basophils % 0.4 Nucleated RBC % % 0 Absolute Neutrophils (1.2-6.7) 10^3/uL 8.50 H Absolute Lymphocytes (1.2-3.4) 10^3/uL 1.81 Absolute Monocytes (0.1-0.8) 10^3/uL 0.97 H Absolute Eosinophils (0.0-0.7) 10^3/uL 0.05 Absolute Basophils (0.0-0.2) 10^3/uL 0.05 Sodium (136-145) mmol/L 138 Potassium (3.5-5.1) mmol/L 3.8 Chloride (98-107) mmol/L 101 Carbon Dioxide (21.0-32.0) mmol/L 27.5 Anion Gap (3-11) mmol/L 9.5 BUN (7-18) mg/dL 8 Creatinine (0.55-1.02) mg/dL 1.09 H Estimated GFR/1.73 m2 (mL/min/1.73m2) >= 60.00 Glucose (74-106) mg/dL 108 H Calcium (8.5-10.1) mg/dL 8.8 Total Bilirubin (0.2-1.0) mg/dL 0.7 AST (15-37) U/L 27 ALT (14-59) U/L 60 H Alkaline Phosphatase (46-116) U/L 77 Total Protein (6.4-8.2) g/dL 7.8 Albumin (3.4-5.0) g/dL 3.7 Lipase (73-393) U/L 74 Serum HCG, Qual Negative COVID-19 Source SARS-CoV-2 (PCR) Nasopharyn COVID-19 PCR Influenza Type A (PCR) (Negative) Influenza Type B (PCR) (Negative) RSV (PCR) (Negative) Ref Test Perform Site Range/Units 02/15/20 02/15/20 07:55 09:12 WBC (4.4-10.8) 10^3/uL RBC (3.93-5.22) 10^6/uL Hgb (11.2-15.7) g/dL Hct (36.0-46.0) % MCV (80-95) fL MCH (27.0-33.0) pg MCHC (32.0-36.0) % RDW (11.7-14.6) % Plt Count (130-400) 10^3/uL MPV (8.0-11.0) fL Immature Gran % Neutrophils % Lymphocytes % Monocytes % Eosinophils % Basophils % Nucleated RBC % % Absolute Neutrophils (1.2-6.7) 10^3/uL Absolute Lymphocytes (1.2-3.4) 10^3/uL Absolute Monocytes (0.1-0.8) 10^3/uL Absolute Eosinophils (0.0-0.7) 10^3/uL Absolute Basophils (0.0-0.2) 10^3/uL Sodium (136-145) mmol/L Potassium (3.5-5.1) mmol/L Chloride (98-107) mmol/L Carbon Dioxide (21.0-32.0) mmol/L Anion Gap (3-11) mmol/L BUN (7-18) mg/dL Creatinine (0.55-1.02) mg/dL Estimated GFR/1.73 m2 (mL/min/1.73m2) Glucose (74-106) mg/dL Calcium (8.5-10.1) mg/dL Total Bilirubin (0.2-1.0) mg/dL AST (15-37) U/L ALT (14-59) U/L Alkaline Phosphatase (46-116) U/L Total Protein (6.4-8.2) g/dL Albumin (3.4-5.0) g/dL Lipase (73-393) U/L Serum HCG, Qual COVID-19 Source Nasopharynx SARS-CoV-2 (PCR) Cancelled Negative Nasopharyn COVID-19 PCR Cancelled Influenza Type A (PCR) (Negative) Negative Influenza Type B (PCR) (Negative) Negative RSV (PCR) (Negative) Negative Ref Test Perform Site Cancelled HPI <Ariel Adler MD - Last Filed: 02/15/20 20:24> General Mode of arrival: wheelchair . Date/Time Provider Initiated Documentation: 02/15/20 07:14 . Limitations to Documentation: no limitations . Information obtained by: patient, RN notes reviewed and old records reviewed . HPI Narrative: Patient presents to ED with ongoing RUQ pain, nausea. Patient is scheduled to have gallbladder out on Wednesday. Has been watching diet and trying to avoid triggers. Pain started up again yesterday. She has had continuous pain since, with one episode of vomiting. Has continuous nausea. Pain worse overnight. No radiation at this point. No fever. No cough, SOB, CP, loss of smell or taste. Was supposed to get pre-op COVID test today at 9am. Unable to tolerate pain, so came here. Related Data Home Medications Medication Instructions Recorded Confirmed valacyclovir [Valtrex] 500 mg PO PRN PRN 09/18/19 02/15/20 albuterol sulfate 90 mcg/actuation 2 puff INHALATION Q6H PRN 11/28/19 02/15/20 aerosol inhaler levothyroxine 150 mcg tablet 200 mcg PO DAILY tab 11/28/19 02/15/20 naproxen 500 mg tablet 500 mg PO PRN tab 11/28/19 02/15/20 acetaminophen 500 mg PO QID PRN 01/29/20 02/15/20 promethazine 25 mg PO TID PRN #7 tab 01/29/20 02/15/20 hydrocodone 5 mg-acetaminophen 325 1 - 2 tab PO Q4H PRN PRN #20 tab 02/15/20 mg tablet MDD 4 Previous Rx's Medication Instructions Recorded promethazine 25 mg PO TID PRN #7 tab 01/29/20 hydrocodone 5 mg-acetaminophen 325 1 - 2 tab PO Q4H PRN PRN #20 tab 02/15/20 mg tablet MDD 4 Allergies Allergy/AdvReac Type Severity Reaction Status Date / Time No Known Allergies Allergy Unverified 12/17/20 10:36 General Stated Complaint: Abd Prob JEANETTE: 3 Review of Systems <Ariel Adler MD - Last Filed: 02/15/20 20:24> Narrative: Please 12/12 Review of Systems completed and is negative except as stated above in HPI (Systems reviewed: Const, Eyes, ENT, Resp, CV, GI, , MSK, Skin, Neuro) PFSH <Ariel Adler MD - Last Filed: 02/15/20 20:24> Medical History (Updated 02/15/20 @ 14:51 by Enriqueta Fragoso MD) Asthma Hypothyroidism Morbidly obese Surgical History No significant past surgical history Social History Smoking/Tobacco Use Status: Former Tobacco Use Smoking risk assessment performed?: Yes Alcohol Intake: never Drug use: Never Substance use type: does not use Current gender identity: female Do you feel safe at home: Yes Do you feel safe in your relationship?: Yes Female Reproductive History Menstrual control method: none History History 1 Para 1 Hx # Term Pregnancies Multiple births Hx # Pregnancies Ectopic pregnancies AB induced Hx Number of Living Children AB spontaneous Exam <Ariel Adler MD - Last Filed: 02/15/20 20:24> Narrative Exam Narrative: Const: Obese female in holding right side of abdomen. HEENT: NC/AT. Normal facial exam. Eyes: Normal conjunctiva and sclera. Neck: Supple. Trachea midline. Lungs: Normal respiratory effort. Cor: Good radial pulses. RRR. GI: Soft and ND. Tender RUQ but no guarding or rebound. Neuro: A+O x 3. Normal speech, mentation, gait. Cranial nerves II - XII grossly intact. No gross motor or sensory deficit. Ext: No C/C/E. Skin: Warm and dry without rash. Course <Ariel Adler MD - Last Filed: 02/15/20 20:24> Vital Signs Vital signs: Vital Signs Temperature 98.1 F 02/15/20 07:16 Pulse 106 H 02/15/20 07:16 Respiratory Rate 20 02/15/20 07:16 Blood Pressure 120/96 H 02/15/20 07:16 Pulse Oximetry 96 02/15/20 07:16 Temperature 98.1 F 02/15/20 07:16 Temperature Source Temporal Artery Scan 02/15/20 07:16 Pulse 106 H 02/15/20 07:16 Respiratory Rate 20 02/15/20 07:16 Respiratory Effort Non-Labored 02/15/20 07:19 Blood Pressure 120/96 H 02/15/20 07:16 Blood Pressure Position Supine 02/15/20 07:16 Pulse Oximetry 96 02/15/20 07:16 Oxygen Delivery Method Room Air 02/15/20 07:16 Oxygen Flow Rate 0 02/15/20 07:16 Pain Level 10 02/15/20 07:16 Sign Out <Ariel Adler MD - Last Filed: 02/15/20 20:24> Sign Out Data: Sign Out Comment: Pending labs and re-evaluation. Last updated by Ariel Adler MD at 02/15/20 07:53
[2020-02-15] MEDS: Lactated Ringers 1,000 ML 125 ML IV ×3 (07:30→14:00)
[2020-02-15] MEDS: Ondansetron 4 MG/2 ML VIAL IVP (07:39)
[2020-02-15] MEDS: MORPHine 10 MG/ML VIAL 4 MG IVP (07:40)
[2020-02-15 07:46] LABS: Abs Immature Grans 0.03 10^3/uL (0.0-0.06); Absolute Eosinophil Count 0.05 10^3/uL (0.0-0.7); Absolute Lymphocyte Count 1.81 10^3/uL (1.2-3.4); Absolute Monocyte Count 0.97 10^3/uL (0.1-0.8); Basophils % 0.4; Eosinophils % 0.4; HCT 43.4 % (36.0-46.0); HGB 14.4 g/dL (11.2-15.7); Immature Grans % 0.3; Lymphocytes % 15.9; MCHC 33.2 % (32.0-36.0); MCV 87.3 fL (80-95); MPV 9.6 fL (8.0-11.0); Monocytes % 8.5; Neutrophils % 74.5; Nucleated RBC 0 %; Platelet Count 456 10^3/uL (130-400); RBC 4.97 10^6/uL (3.93-5.22); RDW 13.1 % (11.7-14.6); RDW-SD 41.6 fL; WBC 11.41 10^3/uL (4.4-10.8)
[2020-02-15 07:51] LABS: Absolute Basophil Count 0.05 10^3/uL (0.0-0.2)
[2020-02-15 07:57] LABS: ALT 60 U/L (14-59); AST 27 U/L (15-37); Albumin 3.7 g/dL (3.4-5.0); Alkaline Phosphatase 77 U/L (46-116); Anion Gap 9.5 mmol/L (3-11); BUN 8 mg/dL (7-18); Bilirubin, Total 0.7 mg/dL (0.2-1.0); CO2 27.5 mmol/L (21.0-32.0); CREATININE 1.09 mg/dL (0.55-1.02); Calcium 8.8 mg/dL (8.5-10.1); Chloride 101 mmol/L (98-107); Glucose 108 mg/dL (74-106); Lipase 74 U/L (73-393); Potassium 3.8 mmol/L (3.5-5.1); Sodium 138 mmol/L (136-145); Total Protein 7.8 g/dL (6.4-8.2)
[2020-02-15 08:07] LABS: HCG Qual (Serum) Negative
[2020-02-15] MEDS: HYDROmorphone 2 MG/ML VIAL 1 MG IVP (08:43)
[2020-02-15 09:14] LABS: Source Nasopharynx
--- NOTE | 2020-02-15 09:37 | NUR.NOTE ---
pt requesting additional pain medications. no outward signs of pain. vs stable. md aware. will cont to monitor,.:
[2020-02-15 10:01] LABS: COVID-19 PCR Negative (Negative); Influenza A PCR Negative (Negative); Influenza B PCR Negative (Negative); RSV PCR Negative (Negative)
--- NOTE | 2020-02-15 10:35 | PDOC.DSDIS_ITS ---
Discharge Plan Disposition Patient Disposition: HOME Condition: Good Discharge Details Reason For Visit: GALLBLADDER REMOVAL Admit Date/Time: 02/15/20 10:22 Admit Provider: Enriqueta Fragoso Attending Provider: Enriqueta Fragoso Primary Care Provider: Marva Hitchcock Home Meds and New Rx's Prescriptions: Continued albuterol sulfate 90 mcg/actuation HFA aerosol inhaler 2 puff inhalation Q6H PRNRF: 0 naproxen 500 mg tablet 500 mg PO PRN RF: 0 valacyclovir [Valtrex] 500 mg Tablet 500 mg PO PRN PRNRF: 0 levothyroxine 150 mcg tablet 200 mcg PO DAILY RF: 0 acetaminophen 500 mg Tablet 500 mg PO QID PRNRF: 0 promethazine 25 mg tablet 25 mg PO TID PRN (Reason: nausea and vomiting) Qty: 7 RF: 0 Discharge Instructions Additional Instructions: The top bandage can be removed tomorrow. The steri strips will usually stick for about a week. When the edges start to curl up, they can be removed. It is okay to shower tomorrow, the water can run over the steri strips Do not swim or soak in a tub for two weeks Call for any concerns including fever, increased pain, vomiting, incision redness or drainage. Do not lift more than 15 pounds for two weeks. Walking and stairs are fine. Do not drive if on narcotic pain meds or if limited by pain. May use Tylenol alternating with ibuprofen for pain control. Ice is also an option. The maximum dose for Tylenol is 4000 mg/day. May use ibuprofen 800 mg every 8 hours as needed. If concerned about constipation, you may use a stool softener or milk of magnesia. Referrals: Enriqueta Fragoso MD [ [facility] STAFF PHYSICIAN] - (Return for a postop visit in 10-14 days) Activity:: Do not lift more than 15# Equipment/Supplies:: No Equipment Needed Diet:: Low fat for two weeks Discharge Orders Discharge Orders: Discharge Order (Routine); Ordered 02/15/20 Ordered By: Enriqueta Fragoso DS: Diagnosis Discharge Diagnosis (1) Acute cholecystitis: Status: Acute
--- NOTE | 2020-02-15 10:38 | W.PM.OP ---
Operative Note Operative Note DATE OF PROCEDURE: 02/15/20 PRE-OP DIAGNOSIS: Acute cholecystitis PROCEDURE: Lap mat with cholangiogram SURGEON: Enriqueta Fragoso CHIEF PETROLEUM ENGINEER: Flaca Price CHIEF PETROLEUM ENGINEER: Sina Hartman ANESTHESIA: GETA and local Indications: This 24 year old woman returned to the ER today with RUQ pain. She was scheduled for cholecystectomy this coming Wednesday. CT and US showed a large gallstone, normal CBD, no wall edema. Lab unremarkable. Procedure Description: The patient was placed supine on the operative table and after induction of general anesthetic was prepped and draped sterilely. A 5 mm incision was made to the left of the umbilicus after injecting local anesthetic and the abdomen entered under direct visualization. A CO2 pneumoperitoneum was begun and she was placed in reverse Trendelenberg position. The epigastric and 2 lateral ports were placed under direct visualization after injecting local anesthetic. The gallbladder was acutely inflamed, distended and edematous. It was decompressed of about 50cc of dark bile. There were no visible liver abnormalities. The gallbladder fundus was grasped and pulled up over the liver. The gallbladder was noted to contain numerous gallstones. The gallbladder infundibulum was retracted laterally and the peritoneum overlying the triangle of Calot dissected free with hook cautery. The cystic duct and artery were isolated and visualized going directly onto the gallbladder. The artery was isolated and clipped twice proximally, once distally and divided. The cystic duct was isolated with a critical view appeared quite dilated and I was concerned she may have passed a stone into the CBD. I elected to proceed with cholangiogram. This took some time to execute due to needing to retrieve the needed equipment. A small opening was made with scissors on the distal infundibulum/proximal cystic duct. The cholangiocatheter was inserted and clipped in place. The C arm was difficult to position due to the table orientation so the images had a lot of overlap. I was able to see the CBD which was normal size, did not have any stones and had free flow of contrast into the duodenum. I was not able to see the hepatic ducts due to overlap. We tried to remedy this by moving the patient up on the bed but then had trouble injecting through the catheter. The catheter tip was noted to be in the cystic duct, which also confirmed this anatomy. The common bile duct was visualized and avoided. The cystic duct was milked of thick sludge The proximal cystic duct/distal infundibulum was too wide for clips, so was divided with the bowel staple load. The gallbladder was dissected off the liver bed with hook cautery and removed through the epigastric incision in an Endo Catch bag. The operative site was inspected with no evidence of bleeding or bile leak. The fascia of the epigastric incision was closed with a figure of eight O Vicryl. The CO2 was released and then the ports removed. The skin of the port sites was then closed with a 4-0 Monocryl subcuticular stitch. She tolerated the procedure well and was stable to recovery
[2020-02-15] MEDS: Bupivacaine 0.5% Pres-Free 30 ML VIAL (11:40)
--- NOTE | 2020-02-15 12:15 | DI.RAD_ITS ---
EXAM: XR CHOLANGIOGRAM OPERATIVE INDICATION: CHOLITHIASIS. COMPARISON: No exams were available for comparison TECHNIQUE: 2D digital imaging was performed. FINDINGS: Intraoperative cholangiogram was performed by Dr. Fragoso. Please see Dr. Fragoso's procedure note. Hard copy show normal caliber common bile duct with no gross intraductal filling defect. There is free fl ow of contrast material into the duodenum. Fluoro time 291 seconds. IMPRESSION: DATA REPOSITORY: RADIATION DOSE DELIVERED:
[2020-02-15] MEDS: Omnipaque 300 MG/ML 50 ML BTL (14:01)
[2020-02-15] MEDS: Normal Saline 20 ML VIAL (14:08)
--- NOTE | 2020-02-15 14:35 | GB_PTH ---
PATIENT: Tiny Cline LOC: [facility] U#:[id number] AGE/SX: 24/F ROOM: RE02/15/[address]: Enriqueta Fragoso MD : 1995 BED: DIS: 02/15/2020 SPEC #: [id number] RECD: 02/15/20 17:46 STATUS: DEMETRICE REQ #: [id number] LUDY: 02/15/20 14:[address]: Enriqueta Fragoso DEPT: Surgical Specimen RECD BY: Chacha Zimmerman ENTERED: 02/15/20 17:46 SP TYPE: GB OTHR DR: Marva Hitchcock Tissues: 1 - GALLBLADDER Procedures: GROSS AND MICRO LEVEL 3 Comments: [id number]
[2020-02-15] MEDS: HYDROcodone 5/Acetaminophen 325 TAB PO (16:47)
== END 2020-02-15 17:16 | disposition home or self-care (01) ==
LOC: ER 09:12 → PDS 10:33 → DSU 02-18 12:12
PROVIDERS: Emergency Medicine; Emergency Provider Physician Assistant; PCP Family Medicine; Visit Provider Surgery
PROC: 0FT44ZZ Resection of Gallbladder, Percutaneous Endoscopic Approach (ICD-10-PCS; CPT 47563; 2020-02-15 10:30)
DX: K80.12 Calculus of gallbladder with acute and chronic cholecystitis without obstruction (principal); E66.01 Morbid (severe) obesity due to excess calories
CPT/HCPCS: 47563; 36415; 80053; 83690; 96361; 96374; 96375; 99285; U0003; 74300; 84703; 85025; 88304; 99284; J0690; J1100; J1885; J2001; J2270; J2370; J2405; Q9967

== ENCOUNTER 2020-05-25 15:27 | Emergency (ER) | payer MEDICAID, SELFPAY ==
[2020-05-25] VITALS (28 sets, daily range): BP systolic 119–150; BP diastolic 88–114; PULSE 57–74; RESP 8–25; TEMP 36.5; O2SAT 96–100
--- NOTE | 2020-05-25 15:30 | RT.EKG_ITS ---
APPROVED REPORT Exam: Resting ECG Patient Location: E HR:66 bpm ECG Measurements Heart Rate 66 AXIS OK 179 P 39 QRSd 90 QRS 81 QT 429 T 37 QTc 451 Conclusion Sinus rhythm...normal P axis, V-rate 60- 99 I have reviewed and interpreted ECG and agree with software generated interpretation.
--- NOTE | 2020-05-25 15:45 | ED.GENADUL_ITS ---
Discharge Plan Disposition Patient Disposition: HOME Condition: Improving Discharge Details Clinical Impression: Atypical chest pain, Epigastric abdominal pain, Elevated TSH, Low serum T4 level, Noncompliance with medication regimen, History of radioactive iodine thyroid ablation Primary Care Provider: Marva Hitchcock ED Provider: Tyra Owens Home Meds and New Rx's Prescriptions: New sucralfate [Carafate] 1 gram tablet 1 gm PO QACHS Qty: 20 RF: 0 omeprazole magnesium [Prilosec OTC] 20 mg tablet,delayed release (DR/EC) 20 mg PO DAILY Qty: 14 RF: 0 Continued albuterol sulfate 90 mcg/actuation HFA aerosol inhaler 2 puff inhalation Q6H PRNRF: 0 valacyclovir [Valtrex] 500 mg Tablet 500 mg PO PRN PRNRF: 0 levothyroxine 150 mcg tablet 200 mcg PO DAILY RF: 0 Discharge Instructions Instructions: Chest Pain (ED), GERD (Gastroesophageal Reflux Disease) (ED), Epigastric Pain (ED) Additional Instructions: Avoid triggers for GERD including smoking, alcohol, caffeine, fatty or foods, chocolate or peppermint. Your prescriptions have been sent electronically to your pharmacy. Call the pharmacy to make sure your prescriptions are ready before pickup. Take the prescriptions as directed. Be sure to take your levothyroxine daily as directed. Call your long lines operator at [facility] on Wednesday morning for follow-up. Follow-up with your primary care doctor in 1 week. Follow-up with general surgery in the office if your symptoms do not improve or worsen for reevaluation and for outpatient upper endoscopy if indicated. Return to the emergency department with any worsening or new concerning symptoms such as fever, worsening pain, persistent vomiting or any other concerns. Referrals: Ayla Solomon DO [OSTEOPATHIC DOCTOR] - Discharge Data Discharge Date/Time-TO BE ENTERED AT DEPARTURE: 05/25/20 18:27 Discharge Physician: Tyra Owesn Medical Decision Making 24-year-old female with a history of asthma, hypothyroidism, morbid obesity and 3 months status post cholecystectomy presents for chest and epigastric pain since yesterday. EKG on arrival notes a rate of 66, sinus, no STEMI, nondiagnostic. Vitals within normal limits. She appears uncomfortable but nontoxic. She has tenderness in her upper abdomen. Considering patient's age and history, suspect most likely a GI etiology. Will check screening labs, CT chest abdomen and pelvis to rule out another acute abnormality and give Pepcid IV, Zofran IV, Carafate and GI cocktail p.o. Labs reviewed. Normal white blood cell count. Mag 1.7. Lipase within normal limits. Troponin negative. TSH 116. Free T4 0.38. Patient states she frequently misses doses of her levothyroxine. Per further discussion with patient in room, she states she had a radioactive iodine uptake to her thyroid at age 15. She states she is followed by [facility] endocrinology Dr. Carlos Nuñez. 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 Will [address] [facility] endocrinology. Case discussed with [facility] endocrinology -they confirmed that patient should be taking 200 mcg of levothyroxine as per March 2020 and that her thyroid labs likely reflect her missed dosages. Patient confirms she has this prescription at home. They advised that patient take this medication as directed daily and follow-up with them for reevaluation and recheck of her thyroid labs. No other acute recommendations. CT chest notes: IMPRESSION: No acute findings. CT abdomen notes: IMPRESSION: 1. Fatty liver disease. 2. Status post cholecystectomy. 3. Small fat containing umbilical hernia. Patient denies any pain in the periumbilical region so likely an incidental asymptomatic hernia. She states she previously drank alcohol but has stopped for the past 3 years. Patient is morbidly obese which may account for her fatty liver disease. Patient reassessed and she states she feels good to go home. She admitted to significant improvement in her symptoms after meds here but after laying flat in radiology her pain slightly returned. She was given another dose of Mylanta prior to discharge with improvement. Discussed with patient that her symptom presentation appears more likely consistent with a GI etiology. She is advised to watch possible GERD triggers. Prescriptions for Prilosec and Carafate sent electronically to her pharmacy. She was given surgery follow-up information if symptoms not improve or worsen. Usual and customary return precautions given prior to discharge. Medical Records Medical records reviewed: Yes I reviewed the patient's medical records. Imaging Data Radiologic Study: Radiologist's impression: CT Angiography Chest With Contrast Exam date and time: 05/25/2020 4:01 PM Age: 24 years old Clinical indication: Chest pain; Abdominal pain; Localized; Prior surgery; Surgery date: 1-6 months; Surgery type: Cholecysectomy; Patient HX: Subsernal chest , upper abd pain, TECHNIQUE: Imaging protocol: Computed tomographic angiography of the chest with contrast. 3D rendering (Not supervised by radiologist): MIP and/or 3D reconstructed images were created by the technologist. Contrast material: OMNIPAQUE 350; Contrast volume: 100 ml; Contrast route: INTRAVENOUS (IV); COMPARISON: CT CHEST/ABD/PEL W 01/29/2020 10:49 AM FINDINGS: Pulmonary arteries: Normal. No pulmonary emboli. Aorta: Unremarkable. No aortic aneurysm. No aortic dissection. Lungs: Unremarkable. No consolidation. No masses. Pleural spaces: Unremarkable. No pneumothorax. No pleural effusion. Heart: Unremarkable. No cardiomegaly. No pericardial effusion. Lymph nodes: Unremarkable. No enlarged lymph nodes. Bones/joints: Unremarkable. No acute fracture. Soft tissues: Unremarkable. IMPRESSION: No acute findings. CT Angiography Abdomen With Contrast Exam date and time: 05/25/2020 4:01 PM Age: 24 years old Clinical indication: Chest pain; Abdominal pain; Localized; Prior surgery; Surgery date: 1-6 months; Surgery type: Cholecysectomy; Patient HX: Subsernal chest , upper abd pain, TECHNIQUE: Imaging protocol: Computed tomographic angiography images of the abdomen with intravenous contrast material. 3D rendering (Not supervised by radiologist): MIP and/or 3D reconstructed images were created by the technologist. Contrast material: OMNIPAQUE 350; Contrast volume: 100 ml; Contrast route: INTRAVENOUS (IV); COMPARISON: CT CHEST/ABD/PEL W 01/29/2020 10:49 AM FINDINGS: Aorta: No aortic aneurysm. No aortic dissection. Celiac trunk and mesenteric arteries: No occlusion or significant stenosis. Renal arteries: No occlusion or significant stenosis. Liver: The liver is diffusely decreased in density. Gallbladder and bile ducts: The gallbladder is surgically absent. Pancreas: Normal. No ductal dilation. Spleen: Normal. No splenomegaly. Adrenals: Normal. No mass. Kidneys and ureters: Normal. No hydronephrosis. Stomach and bowel: Unremarkable. No obstruction. No mucosal thickening. Appendix: The appendix is well-visualized and appears normal. Lymph nodes: Unremarkable. No enlarged lymph nodes. Intraperitoneal space: Unremarkable. No free air. No significant fluid collection. Reproductive: The uterus is anteverted though otherwise normal. No adnexal masses are seen. Bladder: The urinary bladder is not distended. Bones/joints: Unremarkable. No acute fracture. No dislocation. Soft tissues: A small fat containing umbilical hernia is present. IMPRESSION: 1. Fatty liver disease. 2. Status post cholecystectomy. 3. Small fat containing umbilical hernia. Lab Data Lab results reviewed: Yes I reviewed the patient's lab results. Labs: Laboratory Tests Range/Units 05/25/20 05/25/20 05/25/20 15:40 15:40 15:40 WBC (4.4-10.8) 10^3/uL 7.77 RBC (3.93-5.22) 10^6/uL 4.70 Hgb (11.2-15.7) g/dL 13.9 Hct (36.0-46.0) % 42.2 MCV (80-95) fL 89.8 MCH (27.0-33.0) pg 29.6 MCHC (32.0-36.0) % 32.9 RDW (11.7-14.6) % 12.9 Plt Count (130-400) 10^3/uL 374 MPV (8.0-11.0) fL 9.5 Immature Gran % 0.1 Neutrophils % 55.9 Lymphocytes % 34.5 Monocytes % 5.9 Eosinophils % 2.8 Basophils % 0.8 Nucleated RBC % % 0 Absolute Neutrophils (1.2-6.7) 10^3/uL 4.34 Absolute Lymphocytes (1.2-3.4) 10^3/uL 2.68 Absolute Monocytes (0.1-0.8) 10^3/uL 0.46 Absolute Eosinophils (0.0-0.7) 10^3/uL 0.22 Absolute Basophils (0.0-0.2) 10^3/uL 0.06 Sodium (136-145) mmol/L 141 Potassium (3.5-5.1) mmol/L 3.7 Chloride (98-107) mmol/L 104 Carbon Dioxide (21.0-32.0) mmol/L 30.4 Anion Gap (3-11) mmol/L 6.6 BUN (7-18) mg/dL 9 Creatinine (0.55-1.02) mg/dL 1.0 Estimated GFR/1.73 m2 (mL/min/1.73m2) >= 60.00 Glucose (74-106) mg/dL 89 Calcium (8.5-10.1) mg/dL 9.2 Magnesium (1.8-2.4) mg/dL 1.7 L Total Bilirubin (0.2-1.0) mg/dL 0.3 AST (15-37) U/L 24 ALT (14-59) U/L 59 Alkaline Phosphatase (46-116) U/L 90 Troponin I (<0.06) ng/mL < 0.05 Total Protein (6.4-8.2) g/dL 7.6 Albumin (3.4-5.0) g/dL 3.6 Lipase (73-393) U/L 117 TSH (0.36-3.74) uIU/mL 116.12 H Free T4 (0.76-1.46) ng/dL 0.38 L ECG Data Attestation: I personally reviewed and interpreted this ECG (s) as follows: Interpretation: Rate of 66, sinus, no acute ST elevation or depression. AK 179. QRS 90. QTc 451. HPI General Mode of arrival: ambulatory . Date/Time Provider Initiated Documentation: 05/25/20 15:30 . Limitations to Documentation: no limitations . Information obtained by: patient . HPI Narrative: Patient is a 24-year-old morbidly obese female who is 3 months status post cholecystectomy, history of hypothyroidism and asthma who presents to the ED with a complaint of chest and abdominal pain since yesterday. Patient states the pain has been constant since yesterday and feels like a dull pressure. She states the pain radiates from her upper abdomen up to her chest. She states the symptoms started after drinking coffee and eating [place] food yesterday so she thought it was due to that. She states she took Tums yesterday and Pepto-Bismol this morning without relief. She had 2 episodes of vomiting yesterday and admits to nausea today. She had 1 episode of watery nonbloody diarrhea today. She denies any known fever, cough, shortness of breath, urinary symptoms. Related Data Home Medications Medication Instructions Recorded Confirmed valacyclovir [Valtrex] 500 mg PO PRN PRN 07/20/20 03/27/21 albuterol sulfate 90 mcg/actuation 2 puff INHALATION Q6H PRN 11/28/19 05/25/20 aerosol inhaler levothyroxine 150 mcg tablet 200 mcg PO DAILY tab 11/28/19 05/25/20 omeprazole magnesium [Prilosec OTC] 20 mg PO DAILY #14 tab 05/25/20 sucralfate [Carafate] 1 gm PO QACHS #20 tab 05/25/20 Previous Rx's Medication Instructions Recorded omeprazole magnesium [Prilosec OTC] 20 mg PO DAILY #14 tab 05/25/20 sucralfate [Carafate] 1 gm PO QACHS #20 tab 05/25/20 Allergies Allergy/AdvReac Type Severity Reaction Status Date / Time No Known Allergies Allergy Unverified 05/25/20 15:36 General Stated Complaint: Chest Pain JEANETTE: 2 Review of Systems All systems reviewed & are unremarkable except as noted in HPI and below Constitutional Constitutional: Reports as per HPI, Denies chills and Denies fever(s) Eyes Eyes: Denies blurry vision ENT Ears, Nose, Mouth, and Throat: Denies dizziness, Denies sore throat and Denies throat swelling Cardiovascular Cardiovascular: Reports chest pain and Denies dyspnea Respiratory Respiratory: Denies cough and Denies dyspnea Gastrointestinal Gastrointestinal: Reports abdominal pain, Reports diarrhea and Reports vomiting Genitourinary Genitourinary: Denies hematuria and Denies dysuria Musculoskeletal Musculoskeletal: Denies back pain and Denies numbness Integumentary/Breasts Skin/Breast: Denies lesions and Denies rash Neurologic Neurologic: Denies dizziness, Denies localized weakness and Denies numbness Allergic/Immunologic Allergic/Immunologic: Denies throat swelling COUNTS INCLUDE 234 BEDS AT THE [facility] Medical History (Updated 05/25/20 @ 18:15 by Tyra Owens DO) Asthma Hypothyroidism Morbidly obese Surgical History (Updated 03/15/20 @ 14:22 by Makeda Thorpe RN) History of cholecystectomy (~02/15/20) Social History Smoking/Tobacco Use Status: Former Tobacco Use Smoking risk assessment performed?: Yes Alcohol Intake: never Drug use: Never Substance use type: does not use Current gender identity: female Do you feel safe at home: Yes Do you feel safe in your relationship?: Yes Female Reproductive History Menstrual control method: none History History 1 Para 1 Hx # Term Pregnancies Multiple births Hx # Pregnancies Ectopic pregnancies AB induced Hx Number of Living Children AB spontaneous Exam Const General: cooperative and no acute distress Nutritional Appearance: obese morbidly obese Orientation: alert, awake and oriented x3 HENMT Head: normal to inspection Face and sinus: normal facial exam Eyes General: appearance normal, both eyes and all related structures EOM: EOM intact bilaterally Neck Neck: normal visual inspection and No submandibular swelling Lymphatic: no lymphadenopathy noted Chest Chest: normal inspection of the chest and no tenderness Resp Effort & Inspection: normal respiratory effort and able to speak in complete sentences Auscultation: clear to auscultation bilaterally Cardio Rate: regular rate Rhythm: regular rhythm GI Inspection: normal to inspection and obesity Palpation: soft, not firm, not rigid and tender in the epigastrum, in the LUQ and in the RUQ Auscultation: hypoactive bowel sounds Skin General skin exam: no rashes or lesions noted Neuro General: patient alert, patient awake and patient oriented x3 Cognition: normal cognition Speech: speech normal Motor: muscle tone normal throughout Sensory Exam: no sensory deficits noted Extrem General: normal to inspection, full ROM, capillary refill normal, no calf tenderness bilaterally and no edema Psych Appearance: grossly normal Mental Status: mental status grossly normal Speech and Movement: speech and movement normal Affect: normal affect Course Vital Signs Vital signs: Vital Signs Temperature 97.7 F 05/25/20 15:32 Pulse 60 05/25/20 15:32 Respiratory Rate 20 05/25/20 15:32 Blood Pressure 125/107 H 05/25/20 15:32 Pulse Oximetry 100 05/25/20 15:32 Temperature 97.7 F 05/25/20 15:32 Temperature Source Skin 05/25/20 15:32 Pulse 74 05/25/20 15:42 Respiratory Rate 14 05/25/20 15:42 Respiratory Effort Non-Labored 05/25/20 15:38 Blood Pressure 133/96 H 05/25/20 15:42 Blood Pressure Position Sitting 05/25/20 15:32 Pulse Oximetry 100 05/25/20 15:42 Oxygen Delivery Method Room Air 05/25/20 15:42 Oxygen Flow Rate 0 05/25/20 15:42 Pain Level 7 05/25/20 15:32
[2020-05-25 15:53] LABS: Abs Immature Grans 0.01 10^3/uL (0.0-0.06); Absolute Basophil Count 0.06 10^3/uL (0.0-0.2); Absolute Eosinophil Count 0.22 10^3/uL (0.0-0.7); Absolute Lymphocyte Count 2.68 10^3/uL (1.2-3.4); Absolute Monocyte Count 0.46 10^3/uL (0.1-0.8); Absolute Neutrophil Count 4.34 10^3/uL (1.2-6.7); Basophils % 0.8; Eosinophils % 2.8; HCT 42.2 % (36.0-46.0); HGB 13.9 g/dL (11.2-15.7); Immature Grans % 0.1; Lymphocytes % 34.5; MCH 29.6 pg (27.0-33.0); MCHC 32.9 % (32.0-36.0); MCV 89.8 fL (80-95); MPV 9.5 fL (8.0-11.0); Monocytes % 5.9; Neutrophils % 55.9; Nucleated RBC 0 %; Platelet Count 374 10^3/uL (130-400); RDW 12.9 % (11.7-14.6); RDW-SD 42.6 fL; WBC 7.77 10^3/uL (4.4-10.8)
--- NOTE | 2020-05-25 16:00 | DI.CT_ITS ---
EXAM: CT CHEST PE ABD PELVIS W CLINICAL HISTORY: substernal chest, upper abd pain, h/o cholecystect. TECHNIQUE: Imaging Protocol: Axial CT angiography was performed with multi-slice acquisition and m ulti-planar and/or 3D reconstructions. CONTRAST MATERIAL: Intravenous: Omnipaque 350 Contrast volume:100 ml Oral: None COMPARISON: CT CT CHEST/ABD/PEL W from 01/29/2020 FINDINGS: CHEST: PULMONARY ARTERIES: There are no intra-arterial filling defects to suggest the presence of acute pulm onary emboli. LUNGS: There is no evidence of pulmonary infarction. There are no pleural effusions. MEDIASTINUM: There is no hilar nor mediastinal adenopathy. Visualized thyroid unremarkable. CARDIAC: Heart size is upper normal. There is no pericardial effusion. There is no significant shif t of the interventricular septum.Caliber of the thoracic aorta is within normal limits. OSSEOUS: No significant osseous lesions.. ABDOMEN: There is no ascites. LIVER: Liver is enlarged. Liver is hypodense implying significant steatosis. There are no discrete focal hepatic lesions identified. GALLBLADDER/BILIARY: Gallbladder surgically absent. CBD is not dilated. PANCREAS: No evidence of pancreatic mass nor dilatation of the pancreatic duct. SPLEEN: Spleen is not enlarged. There are no intrasplenic lesions. Splenic and portal veins are barr nt. ADRENALS: There are no significant adrenal masses. KIDNEYS:No cysts evident. No calculi nor hydronephrosis. No solid renal masses. ABDOMINAL AORTA: Abdominal aorta is not enlarged. LYMPH NODES: There is no retroperitoneal or para-aortic adenopathy. ABDOMINAL WALL/GI: No evidence of significant anterior abdominal wall hernia. There is a small fat c ontaining umbilical hernia. No bowel loops therein. No bowel obstruction. PELVIS: LYMPH NODES: There is no intrapelvic nor inguinal adenopathy. GI: No evidence of appendicitis.No evidence of sigmoid diverticulitis. URINARY BLADDER: No calculi nor masses evident REPRODUCTIVE: Age-appropriate uterus and ovaries. OSSEOUS: No significant osseous lesions. IMPRESSION: 1. No evidence of acute pulmonary emboli nor pulmonary infarction. 2. There are no pleural effusions.No significant intrathoracic adenopathy. 3. Gallbladder surgically absent. The biliary tree is not dilated. 4. Small fat containing umbilical hernia. No bowel obstruction. No ascites. RADIATION DOSE DELIVERED: LINK-TO-SR Total DLP DATA REPOSITORY: All CT scans at this facility are submitted to the National Radiology Data Registry (NRDR) Dose Index Registry (DIR) with the [employer] (A[employer]). RADIATION OPTIMIZATION: All CT scans at this facility use at least one of these dose optimization te chniques: automated exposure control; mA and/or kV adjustment per patient size (includes targeted exa ms where dose is matched to clinical indication); or iterative reconstruction.
[2020-05-25] MEDS: Sucralfate 1 GM TAB PO (16:10)
[2020-05-25] MEDS: FAMOTIDINE 20 MG/50 ML BAG 200 MG IVPB (16:10)
[2020-05-25 16:11] LABS: ALT 59 U/L (14-59); AST 24 U/L (15-37); Albumin 3.6 g/dL (3.4-5.0); Alkaline Phosphatase 90 U/L (46-116); Anion Gap 6.6 mmol/L (3-11); BUN 9 mg/dL (7-18); Bilirubin, Total 0.3 mg/dL (0.2-1.0); CO2 30.4 mmol/L (21.0-32.0); Calcium 9.2 mg/dL (8.5-10.1); Chloride 104 mmol/L (98-107); Glucose 89 mg/dL (74-106); Lipase 117 U/L (73-393); Magnesium 1.7 mg/dL (1.8-2.4); Potassium 3.7 mmol/L (3.5-5.1); Sodium 141 mmol/L (136-145); Total Protein 7.6 g/dL (6.4-8.2)
[2020-05-25] MEDS: Ondansetron 4 MG/2 ML VIAL IVP (16:12)
[2020-05-25 16:13] LABS: Troponin I < 0.05 ng/mL (<0.06)
[2020-05-25 16:42] LABS: TSH (W/Ref FT4) 116.12 uIU/mL (0.36-3.74)
[2020-05-25] MEDS: Normal Saline - Diluent 50 ML VIAL IV (16:54)
[2020-05-25] MEDS: Normal Saline Flush 10 ML SYR IVP (16:55)
[2020-05-25] MEDS: Omnipaque 350 MG/ML 100 ML BTL IJ (16:55)
[2020-05-25 16:59] LABS: FREE T4 0.38 ng/dL (0.76-1.46)
--- NOTE | 2020-05-25 17:33 | DI.VRAD_ITS ---
PROCEDURE INFORMATION: Exam: CT Angiography Chest With Contrast Exam date and time: 05/25/2020 4:01 PM Age: 24 years old Clinical indication: Chest pain; Abdominal pain; Localized; Prior surgery; Surgery date: 1-6 months; Surgery type: Cholecysectomy; Patient HX: Subsernal chest , upper abd pain, TECHNIQUE: Imaging protocol: Computed tomographic angiography of the chest with contrast. 3D rendering (Not supervised by radiologist): MIP and/or 3D reconstructed images were created by the technologist. Contrast material: OMNIPAQUE 350; Contrast volume: 100 ml; Contrast route: INTRAVENOUS (IV); COMPARISON: CT CHEST/ABD/PEL W 01/29/2020 10:49 AM FINDINGS: Pulmonary arteries: Normal. No pulmonary emboli. Aorta: Unremarkable. No aortic aneurysm. No aortic dissection. Lungs: Unremarkable. No consolidation. No masses. Pleural spaces: Unremarkable. No pneumothorax. No pleural effusion. Heart: Unremarkable. No cardiomegaly. No pericardial effusion. Lymph nodes: Unremarkable. No enlarged lymph nodes. Bones/joints: Unremarkable. No acute fracture. Soft tissues: Unremarkable. IMPRESSION: No acute findings. PROCEDURE INFORMATION: Exam: CT Angiography Abdomen With Contrast Exam date and time: 05/25/2020 4:01 PM Age: 24 years old Clinical indication: Chest pain; Abdominal pain; Localized; Prior surgery; Surgery date: 1-6 months; Surgery type: Cholecysectomy; Patient HX: Subsernal chest , upper abd pain, TECHNIQUE: Imaging protocol: Computed tomographic angiography images of the abdomen with intravenous contrast material. 3D rendering (Not supervised by radiologist): MIP and/or 3D reconstructed images were created by the technologist. Contrast material: OMNIPAQUE 350; Contrast volume: 100 ml; Contrast route: INTRAVENOUS (IV); COMPARISON: CT CHEST/ABD/PEL W 01/29/2020 10:49 AM FINDINGS: Aorta: No aortic aneurysm. No aortic dissection. Celiac trunk and mesenteric arteries: No occlusion or significant stenosis. Renal arteries: No occlusion or significant stenosis. Liver: The liver is diffusely decreased in density. Gallbladder and bile ducts: The gallbladder is surgically absent. Pancreas: Normal. No ductal dilation. Spleen: Normal. No splenomegaly. Adrenals: Normal. No mass. Kidneys and ureters: Normal. No hydronephrosis. Stomach and bowel: Unremarkable. No obstruction. No mucosal thickening. Appendix: The appendix is well-visualized and appears normal. Lymph nodes: Unremarkable. No enlarged lymph nodes. Intraperitoneal space: Unremarkable. No free air. No significant fluid collection. Reproductive: The uterus is anteverted though otherwise normal. No adnexal masses are seen. Bladder: The urinary bladder is not distended. Bones/joints: Unremarkable. No acute fracture. No dislocation. Soft tissues: A small fat containing umbilical hernia is present. IMPRESSION: 1. Fatty liver disease. 2. Status post cholecystectomy. 3. Small fat containing umbilical hernia. Dictated and Authenticated by: Andrea Zazueta MD. Ordering:ED Mary MD
== END 2020-05-25 18:27 | disposition home or self-care (01) ==
PROVIDERS: Emergency Provider Physician Assistant; PCP Family Medicine
DX: R07.89 Other chest pain (principal); R10.13 Epigastric pain; R94.6 Abnormal results of thyroid function studies; K21.9 Gastro-esophageal reflux disease without esophagitis
CPT/HCPCS: 71275; 74177; 80053; 81025; 83690; 93005; 96374; 96375; 99285; 83735; 84439; 84443; 84484; 85025; 93010; 99284; J2405; J3490

== ENCOUNTER 2020-06-06 11:04 | Emergency (ER) | payer MEDICAID, SELFPAY ==
[2020-06-06 11:07] VITALS: BP 131/89; PULSE 78; RESP 14; TEMP 36.5; O2SAT 100
--- NOTE | 2020-06-06 11:15 | DI.RAD_ITS ---
EXAM: XR CHEST 2V PA LATERAL CLINICAL HISTORY: RUQ pain TECHNIQUE: 2D digital imaging was performed. COMPARISON: No exams were available for comparison FINDINGS: MEDIASTINUM: Normal. HEART: Normal. PULMONARY VASCULATURE: Normal. LUNGS: Clear. PLEURAL SPACE: No pleural effusion or pneumothorax. BONE:Normal. IMPRESSION: No acute pulmonary findings. DATA REPOSITORY: RADIATION DOSE DELIVERED:
--- NOTE | 2020-06-06 11:15 | DI.US_ITS ---
EXAM: US ABDOMEN LIMITED CLINICAL HISTORY: RUQ pain, s/p cholecystectomy TECHNIQUE: Ultrasound abdomen performed using standard protocol. COMPARISON: CT CT CHEST PE ABD PELVIS W from 05/25/2020 FINDINGS: Patient is status post cholecystectomy. There is no biliary dilatation. The common bile duct measur es 5 millimeters. The liver shows increased echogenicity, consistent with fatty infiltration. No ri ght upper quadrant fluid is seen. The right kidney is unremarkable. IMPRESSION: Severe hepatic steatosis. Status post cholecystectomy. DATA REPOSITORY:
--- NOTE | 2020-06-06 11:25 | W.ED.GENAD ---
Discharge Plan Disposition Patient Disposition: HOME Condition: Good Discharge Details Clinical Impression: Abdominal pain Primary Care Provider: Marva Hitchcock ED Provider: Chacha Juan Home Meds and New Rx's Prescriptions: New cyclobenzaprine 10 mg tablet 10 mg PO TID PRNQty: 10 RF: 0 Continued albuterol sulfate 90 mcg/actuation HFA aerosol inhaler 2 puff inhalation Q6H PRNRF: 0 valacyclovir [Valtrex] 500 mg Tablet 500 mg PO PRN PRNRF: 0 levothyroxine 150 mcg tablet 200 mcg PO DAILY RF: 0 sucralfate [Carafate] 1 gram tablet 1 gm PO QACHS Qty: 20 RF: 0 omeprazole magnesium [Prilosec OTC] 20 mg tablet,delayed release (DR/EC) 20 mg PO DAILY Qty: 14 RF: 0 Discharge Instructions Instructions: Abdominal Pain (ED) Additional Instructions: Try taking ibuprofen 600 mg every 8 hours with food and Tylenol 650 mg every 4-6 hours flexeril for muscle pain, do not drive for 8 hours after taking this medication recheck with pcp in one week with persistent pain return earlier with new or worsening complaints Discharge Data Discharge Date/Time-TO BE ENTERED AT DEPARTURE: 06/06/20 13:14 Medical Decision Making no evidence of obvious abscess on US or stone, CBD within normal limits per radiologist mild lft elevation, likely hepatasteatosis, similar to patient's prior afebrile and non-toxic reproducible tenderness BS intact and no vomiting, passing flatus, low suspicion for SBO UA clear and no hydro on US, low suspicion for stone will treat with muscle relaxants with need for close follow-up CTA chest, abd, pelvis neg from evaluation several weeks prior, reassuring return precautions discussed Differential Diagnosis Differential Diagnosis: ureterolithiasis, biliary stone, musculoskeletal pain, abscess Medical Records Medical records reviewed: Yes I reviewed the patient's medical records. Lab Data Lab results reviewed: Yes I reviewed the patient's lab results. HPI This 24-year-old female presents with report of persistent right upper quadrant pain. She status post cholecystectomy approximately 3 and half months ago. She denies any fever or chills. She had this pain for approximately 4 weeks now. She denies any chest pain or shortness of breath. She denies any fever or urinary symptoms. She denies any known exacerbating or alleviating factors. She denies any trauma to the affected area. Her last menstrual period was at the end of the month reportedly. This was normal for her. Described the pain as sharp. General Date/Time Provider Initiated Documentation: 06/06/20 11:07. Related Data Home Medications Medication Instructions Recorded Confirmed valacyclovir [Valtrex] 500 mg PO PRN PRN 09/18/19 06/06/20 albuterol sulfate 90 mcg/actuation 2 puff INHALATION Q6H PRN 11/28/19 06/06/20 aerosol inhaler levothyroxine 150 mcg tablet 200 mcg PO DAILY tab 11/28/19 06/06/20 omeprazole magnesium [Prilosec OTC] 20 mg PO DAILY #14 tab 05/25/20 06/06/20 sucralfate [Carafate] 1 gm PO QACHS #20 tab 05/25/20 06/06/20 cyclobenzaprine 10 mg PO TID PRN #10 tab 06/06/20 Previous Rx's Medication Instructions Recorded omeprazole magnesium [Prilosec OTC] 20 mg PO DAILY #14 tab 05/25/20 sucralfate [Carafate] 1 gm PO QACHS #20 tab 05/25/20 cyclobenzaprine 10 mg PO TID PRN #10 tab 06/06/20 Allergies Allergy/AdvReac Type Severity Reaction Status Date / Time No Known Allergies Allergy Unverified 06/06/20 11:12 General Stated Complaint: GenMedical JAENETTE: 3 Review of Systems Narrative: Review of systems negative x7 aside from where indicated in HPI [facility] Medical History (Updated 06/06/20 @ 13:04 by IBETH Esquivel) Asthma Hypothyroidism Morbidly obese Surgical History (Updated 03/15/20 @ 14:22 by Makeda Thorpe RN) History of cholecystectomy (~02/15/20) Social History Smoking/Tobacco Use Status: Former Tobacco Use Smoking risk assessment performed?: Yes Alcohol Intake: never Drug use: Never Substance use type: does not use Current gender identity: female Do you feel safe at home: Yes Do you feel safe in your relationship?: Yes Female Reproductive History Menstrual control method: none History History 1 Para 1 Hx # Term Pregnancies Multiple births Hx # Pregnancies Ectopic pregnancies AB induced Hx Number of Living Children AB spontaneous Exam Const General: cooperative, healthy appearing and no acute distress HENMT Mouth: moist mucous membranes Resp Effort & Inspection: normal respiratory effort Cardio Rate: regular rate GI Other: mild tenderness RUQ with palpation BS intact, no rebound or guarding Skin General skin exam: no rashes or lesions noted Neuro General: patient alert and patient oriented x3 Course Vital Signs Vital signs: Vital Signs Temperature 36.5 C 06/06/20 11:07 Pulse 78 06/06/20 11:07 Respiratory Rate 14 06/06/20 11:07 Blood Pressure 131/89 06/06/20 11:07 Pulse Oximetry 100 06/06/20 11:07 Temperature 36.5 C 06/06/20 11:07 Temperature Source Skin 06/06/20 11:07 Pulse 78 06/06/20 11:07 Respiratory Rate 14 06/06/20 11:07 Respiratory Effort 06/06/20 11:14 Blood Pressure 131/89 06/06/20 11:07 Blood Pressure Position Sitting 06/06/20 11:07 Pulse Oximetry 100 06/06/20 11:07 Oxygen Delivery Method Room Air 06/06/20 11:07 Oxygen Flow Rate 0 06/06/20 11:07 Pain Level 8 06/06/20 11:07
[2020-06-06 11:33] LABS: Abs Immature Grans 0.02 10^3/uL (0.0-0.06); Absolute Basophil Count 0.05 10^3/uL (0.0-0.2); Absolute Lymphocyte Count 2.03 10^3/uL (1.2-3.4); Absolute Monocyte Count 0.44 10^3/uL (0.1-0.8); Absolute Neutrophil Count 4.58 10^3/uL (1.2-6.7); Basophils % 0.7; Eosinophils % 2.7; HCT 40.6 % (36.0-46.0); HGB 13.5 g/dL (11.2-15.7); Immature Grans % 0.3; Lymphocytes % 27.7; MCH 29.9 pg (27.0-33.0); MCHC 33.3 % (32.0-36.0); MCV 89.8 fL (80-95); MPV 9.5 fL (8.0-11.0); Neutrophils % 62.6; Nucleated RBC 0 %; Platelet Count 336 10^3/uL (130-400); RBC 4.52 10^6/uL (3.93-5.22); RDW 13.2 % (11.7-14.6); RDW-SD 43.4 fL; WBC 7.32 10^3/uL (4.4-10.8)
[2020-06-06 11:40] LABS: Bilirubin Negative (Negative); Blood Negative (Negative); Clarity Cloudy (Clear); Glucose Negative (Negative); Ketones Negative (Negative); Leukocyte Esterase Small (Negative); Nitrite Negative (Negative); Specific Gravity >= 1.030 (1.005-1.025); Urobilinogen 0.2 EU/dL (Up TO 0.2); pH 6.5 (5-8)
[2020-06-06 11:47] LABS: ALT 69 U/L (14-59); AST 29 U/L (15-37); Albumin 3.8 g/dL (3.4-5.0); Alkaline Phosphatase 82 U/L (46-116); Anion Gap 5.1 mmol/L (3-11); BUN 11 mg/dL (7-18); Bilirubin, Total 0.5 mg/dL (0.2-1.0); CO2 29.9 mmol/L (21.0-32.0); CREATININE 0.9 mg/dL (0.55-1.02); Calcium 8.7 mg/dL (8.5-10.1); Chloride 104 mmol/L (98-107); Glucose 101 mg/dL (74-106); Lipase 84 U/L (73-393); Potassium 3.9 mmol/L (3.5-5.1); Sodium 139 mmol/L (136-145); Total Protein 7.6 g/dL (6.4-8.2)
[2020-06-06 11:50] LABS: Bacteria Few HPF (Negative); C & S Indicated? No/Sq. Contamination; Casts Negative LPF (Negative); Crystals Negative HPF (Negative); Epithelial Cells Many HPF (Negative); Mucus Negative (Negative); RBC Negative HPF (0-2)
[2020-06-06] MEDS: Ketorolac 15 MG/ML VIAL IVP (12:53)
[2020-06-06 12:59] VITALS: BP 120/76; PULSE 68; RESP 16; TEMP 36.7; O2SAT 100
== END 2020-06-06 13:14 | disposition home or self-care (01) ==
PROVIDERS: Emergency Provider Physician Assistant; PCP Family Medicine
DX: R10.11 Right upper quadrant pain (principal)
CPT/HCPCS: 36415; 80053; 81025; 83690; 96374; 99284; 71046; 76705; 81003; 81015; 85025; J1885

== ENCOUNTER 2020-06-14 05:53 | Inpatient (IN) | payer MEDICAID, SELFPAY ==
[2020-06-14] VITALS (21 sets, daily range): BP systolic 121–137; BP diastolic 74–96; PULSE 59–89; RESP 15–16; TEMP 36.4–36.6; O2SAT 94–100
--- NOTE | 2020-06-14 05:55 | ED.GENADUL_ITS ---
Discharge Plan Disposition Condition: Good Discharge Details Chief Complaint: Abd Prob Admit Date/Time: 06/14/20 12:56 Admit Provider: Sina Mart Attending Provider: Sina Mart Primary Care Provider: Marva Hitchcock ED Provider: Jaspreet Prado Discharge Instructions Activity:: Activity as Tolerated Equipment/Supplies:: No Equipment Needed Diet:: Low Fat Diet Discharge Orders Discharge Orders: Discharge Order (Routine); Ordered 06/18/20 Ordered By: Flaca Price Discharge Data Discharge Date/Time-TO BE ENTERED AT DEPARTURE: 06/14/20 13:44 Medical Decision Making <Ariel Adler MD - Last Filed: 06/21/20 00:37> Patient returns to ED with onset of sharp epigastric pain similar to pain she had with previous ED visit. Imaging on those 2 visits unremarkable. Patient's abdomen is benign to my exam. Will repeat labs but no imaging. Will treat with Zofran ODT and Bentyl, consider GI cocktail and sucralfate 7:00 -patient's LFTs are now markedly elevated compared to prior. Bilirubin up to 1.5 and enzymes over 400. Patient with no relief from Zofran and Bentyl. Will place IV and give morphine and repeat ultrasound today given change in LFTs. Patient denies taking more Tylenol than she should, alcohol use, hepatitis risk factors Medical Records Medical records reviewed: Yes I reviewed the patient's medical records. Lab Data Lab results reviewed: Yes I reviewed the patient's lab results. <Jaspreet Prado MD - Last Filed: 06/21/20 22:57> 730 -- Care signed out by Dr. Adler, please see his documentation for initial ED presentation course. Plan at signout was to follow-up on ultrasound of the abdomen and reassess patient for disposition. --Patient was reassessed and continues to have pain and also nausea. Additional dose of morphine administered. --Ultrasound interpreted by radiology: Fatty liver, normal common bile duct, no acute findings. I called and spoke with on-call general surgeon and discussed ED presentation course including diagnostics, he recommends admission for pain control and trend labs with potential need for ERCP. I called and spoke with hospitalist on-call, discussed ED presentation and course including diagnostics, she request MRCP be performed if possible prior to admission to assess for ductal stone. Additional labs including TSH ESR and CRP requested. I called and spoke with radiology and MR is available this morning. Will obtain stat imaging. -- MRI concerning for stone in duct. Plan to admit to general surgery with likely ERCP at [facility]. HPI <Ariel Adler MD - Last Filed: 06/21/20 00:37> General Mode of arrival: ambulatory . Date/Time Provider Initiated Documentation: 06/14/20 05:55 . Limitations to Documentation: no limitations . Information obtained by: patient, RN notes reviewed and old records reviewed . HPI Narrative: Patient returns to ED with recurrent upper abdominal sharp pain that radiates to the back. Patient seen on May 26 and June 06 for same. Patient reports a persistent right upper quadrant discomfort since her cholecystectomy 3 months ago. However, the pain that she has been experiencing which makes her visit to the ED is different. This pain woke her up at 3 AM. She has nausea and one episode of vomiting. Pain is epigastric in nature but radiates around and through the back. She has no lower abdominal pain, pelvic pain, vaginal bleeding, urinary symptoms. She denies any fever, cough, shortness of breath or chest pain. Previous work-up includes CTA of the chest abdomen pelvis as well as right upper quadrant ultrasound in addition to labs. She has been treated with PPI and Carafate as well as muscle relaxers. She does not drink alcohol or smoke cigarettes. She has been cutting back on caffeine. She does not use nonsteroidals regularly Related Data Home Medications Medication Instructions Recorded Confirmed valacyclovir [Valtrex] 500 mg PO PRN PRN 09/18/19 06/14/20 albuterol sulfate 90 mcg/actuation 2 puff INHALATION Q6H PRN 11/28/19 06/14/20 aerosol inhaler levothyroxine 150 mcg tablet 200 mcg PO DAILY tab 11/28/19 06/14/20 Allergies Allergy/AdvReac Type Severity Reaction Status Date / Time No Known Allergies Allergy Unverified 06/14/20 06:07 General JEANETTE: 3 Review of Systems <Ariel Adler MD - Last Filed: 06/21/20 00:37> Narrative: As documented in HPI otherwise negative as below. Const: no fever, chills, weakness Resp: no cough, SOB, pleuritic pain CV: no CP, diaphoresis, edema, syncope GI: no diarrhea Neuro: no headache, numbness, focal weakness, confusion PFSH <Ariel Adler MD - Last Filed: 06/21/20 00:37> Medical History Asthma Hypothyroidism Morbidly obese Surgical History History of cholecystectomy (~02/15/20) Social History Smoking/Tobacco Use Status: Former Tobacco Use Smoking risk assessment performed?: Yes Alcohol Intake: never Drug use: Never Substance use type: does not use Current gender identity: female Do you feel safe at home: Yes Do you feel safe in your relationship?: Yes Female Reproductive History Menstrual control method: none History History 1 Para 1 Hx # Term Pregnancies Multiple births Hx # Pregnancies Ectopic pregnancies AB induced Hx Number of Living Children AB spontaneous Exam <Ariel Adler MD - Last Filed: 06/21/20 00:37> Narrative Exam Narrative: Const: Morbidly obese female holding abdomen and crying.. HEENT: NC/AT. Normal facial exam. Eyes: Normal conjunctiva and sclera. Neck: Supple. Trachea midline. Lungs: Normal respiratory effort. Cor: RRR. Good radial pulses. GI: Soft. NT/ND. No guarding or rebound. Neuro: A+O x 3. Normal speech, mentation, gait. Cranial nerves II - XII grossly intact. No gross motor or sensory deficit. Ext: No C/C/E. Skin: Warm and dry without rash. Sign Out <Ariel Adler MD - Last Filed: 06/21/20 00:37> Sign Out Data: Sign Out Comment: pending U/S and re-eval Last updated by Ariel Adler MD at 06/14/20 07:16
[2020-06-14] MEDS: Ondansetron O.D.T. 4 MG TABEF PO (06:30)
[2020-06-14] MEDS: Dicyclomine 20 MG TAB PO (06:30)
[2020-06-14 06:41] LABS: Abs Immature Grans 0.01 10^3/uL (0.0-0.06); Absolute Basophil Count 0.04 10^3/uL (0.0-0.2); Absolute Eosinophil Count 0.06 10^3/uL (0.0-0.7); Absolute Lymphocyte Count 1.17 10^3/uL (1.2-3.4); Absolute Monocyte Count 0.44 10^3/uL (0.1-0.8); Absolute Neutrophil Count 4.55 10^3/uL (1.2-6.7); Basophils % 0.6; HCT 41.7 % (36.0-46.0); HGB 13.8 g/dL (11.2-15.7); Immature Grans % 0.2; Lymphocytes % 18.7; MCH 29.6 pg (27.0-33.0); MCHC 33.1 % (32.0-36.0); MCV 89.5 fL (80-95); MPV 9.6 fL (8.0-11.0); Neutrophils % 72.5; Nucleated RBC 0 %; Platelet Count 319 10^3/uL (130-400); RBC 4.66 10^6/uL (3.93-5.22); RDW 12.9 % (11.7-14.6); RDW-SD 42.4 fL; WBC 6.27 10^3/uL (4.4-10.8)
[2020-06-14 06:54] LABS: ALT 427 U/L (14-59); AST 443 U/L (15-37); Alkaline Phosphatase 135 U/L (46-116); Anion Gap 8.1 mmol/L (3-11); BUN 10 mg/dL (7-18); Bilirubin, Total 1.5 mg/dL (0.2-1.0); CO2 28.9 mmol/L (21.0-32.0); CREATININE 0.9 mg/dL (0.55-1.02); Calcium 8.9 mg/dL (8.5-10.1); Chloride 103 mmol/L (98-107); Glucose 125 mg/dL (74-106); Lipase 84 U/L (73-393); Potassium 4.2 mmol/L (3.5-5.1); Sodium 140 mmol/L (136-145)
--- NOTE | 2020-06-14 07:00 | DI.US_ITS ---
EXAM: US ABDOMEN LIMITED CLINICAL HISTORY: recurrent pain/elevated LFTs TECHNIQUE: Ultrasound abdomen performed using standard protocol. COMPARISON: US US ABDOMEN LIMITED from 06/06/2020 FINDINGS: ABDOMINAL AORTA AND IVC: Visualized portions normal caliber. PANCREAS: Normal where visualized. LIVER: There is diffuse increased echogenicity of the liver. The liver measures 16.7 cm in length. Hepatopedal flow in the Portal Vein. GALLBLADDER: Status post cholecystectomy. BILIARY SYSTEM: Common bile duct measures < 7 mm. No intrahepatic biliary ductal dilation. KIDNEYS: Right kidney is unremarkable. No evidence of renal calculi. No evidence of hydronephrosis. No renal mass or cyst identified. ASCITES: None seen. IMPRESSION: 1. Hepatic steatosis. 2. Status post cholecystectomy. DATA REPOSITORY:
[2020-06-14] MEDS: Ondansetron 4 MG/2 ML VIAL IVP ×2 (08:54→14:00)
--- NOTE | 2020-06-14 09:50 | DI.MRI_ITS ---
EXAM: MR ABDOMEN WO CLINICAL HISTORY: sharp epigastric pain, f/u ct and us TECHNIQUE: Multiplanar multisequence MRA of the Abdomen was performed. CONTRAST MATERIAL: IV Contrast: mL of Dotarem contrast administered. COMPARISON: CT CT CHEST/ABD/PEL W from 01/29/2020 US US ABDOMEN LIMITED from 06/14/2020 FINDINGS: Liver: Unremarkable. Pancreas: Unremarkable. Gallbladderand Bile Ducts: The patient is status post cholecystectomy. There does appear to be a rem nant of the cystic duct present. There is loss of signal in the mid common duct suspicious for retai nuris stone or stricture. There is also mild dilatation of the common bile duct and intrahepatic ducts distally measuring up to 9 mm in diameter compared with 4 mm proximally.. Adrenals: Unremarkable. Kidneys: Unremarkable. Spleen: Unremarkable. Aorta: Unremarkable. Soft Tissues: Unremarkable. Bone: Unremarkable. Lymph Nodes: Unremarkable. IMPRESSION: Loss of signal in the mid common duct suspicious for retained stone or stricture. Findings were disc ussed with the emergency department and in the department of surgery on the date of the examination. DATA REPOSITORY:
[2020-06-14 11:35] LABS: Acetaminophen < 2 ug/mL (10-30)
[2020-06-14] MEDS: HYDROmorphone 2 MG/ML VIAL 1 MG IVP (11:36)
[2020-06-14 11:37] LABS: ESR 15 mm//hr (0-20)
[2020-06-14 11:42] LABS: C-Reactive Protein 0.51 mg/dL (0.0-0.3); TSH (W/Ref FT4) 24.58 uIU/mL (0.36-3.74)
[2020-06-14 11:59] LABS: FREE T4 1.03 ng/dL (0.76-1.46)
--- NOTE | 2020-06-14 12:05 | SCONE_ITS ---
Date of service: 06/14/20 Time of Service: 12:05 Assessment and Plan Assessment and plan (1) Epigastric abdominal pain: Status: Acute (2) History of cholelithiasis: Status: Acute Assessment and plan: Assessment: Patient has had recurrent episodes of substernal pain radiating through to the back after cholecystectomy about 4 months ago. She has new abnormalities of transaminase, alk phos and bilirubin elevation all of relatively mild degree without previous CT or ultrasound abnormalities of common duct previously. Imaging is also not suggestive of bile leak, subhepatic abscess, convincing evidence of remnant gallbladder. MRCP was advised to evaluate for presence of choledocholithiasis and/or other biliary pathology such as remnant gallbladder. Reviewed imaging with radiology. There is suggestion of nonobstructing debris within the lumen of the proximal common duct. There is patency of the distal common duct. There may be a long cystic duct stump But no convincing evidence of a substantial residual portion of gallbladder being retained. Plan: ?Would advise transfer for ERCP. ?IV antibiotics to mitigate against cholangitis ?If transfer not available today then admit for IV fluids/continued antibiotics until transfer arrangements can be made. History of Present Illness History of Present Illness Chief Complaint: substernal pain Narrative: This is a 24-year-old lady who underwent urgent cholecystectomy on 04/17/2019 (about 4 months ago) per Dr. Enriqueta Fragoso for acute cholecystitis. Patient has had intermittent biliary colic symptoms leading up to be more urgent intervention. She has not experienced jaundice, fever, chills. In the past several months patient has had continued episodic discomfort. The discomfort is experienced in the substernal region and feels sharp and radiates through to her back between the shoulder blades. She does not note any precipitating events such as eating, association with fatty foods or with any other activity. She does not have nausea or vomiting. There is no burning character to her discomfort. Symptoms can last from hours to days. She has visited the ER on 3 or 4 occasions the last couple of months for these complaints. Ultrasound of the abdomen, CT of the chest and abdomen done within the last month have been unrevealing as to diagnosis. Patient is presently experiencing substernal discomfort for the past several hours. It is unremitting. Today her laboratory studies reveal elevation of transaminases to the 400s. Bilirubin is very slightly elevated to 1.5 and alk phos very slightly elevated as well. Patient has had studies on at least 6 occasions over the past several months a is the first day that any of these studies have been abnormal - apart from very mild transaminase elevation previously. I reviewed patient's prior op note and pathology report. Acute cholecystitis was present grossly and on histologic exam. She had at least 8 small calculi present in the gallbladder. Her bile was described as very viscous sample sludgelike. She had cholangiography done at time of OR and there was no distal common duct obstruction. The more proximal hepatic duct was not well-visualized due to technical issues. My review of A stapler was utilized to divide the cystic duct as it was too large of caliber to be controlled with clips. Her immediate recovery from cholecystectomy was uncomplicated but then the intermittent complaints as described above ensued. I spoke with the ER physician earlier this morning and suggested that MRCP be pursued a week for common duct abnormality and for potential presence of a gallbladder remnant. Consults Consult date: 06/14/20 Requesting physician: Jaspreet Prado Review of Systems Constitutional Constitutional: Reports anorexia and Reports fatigue Eyes Eyes: Reports system reviewed and no additional complaints, except as documented ENT Ears, Nose, Mouth, and Throat: Reports system reviewed and no additional complaints, except as documented Cardiovascular Cardiovascular: Reports system reviewed and no additional complaints, except as documented and Reports dyspnea on exertion Respiratory Respiratory: Reports dyspnea on exertion Gastrointestinal Gastrointestinal: Reports as per HPI Neurologic Neurologic: Reports system reviewed and no additional complaints, except as documented Psychiatric Psychiatric: Reports anxiety Endocrine Endocrine: Reports fatigue Hematologic/Lymphatic Hematologic/Lymphatic: Reports system reviewed and no additional complaints, except as documented PFSH Medical History Asthma Hypothyroidism Morbidly obese Surgical History History of cholecystectomy (~02/15/20) Social History Smoking/Tobacco Use Status: Former Tobacco Use Smoking risk assessment performed?: Yes Alcohol Intake: never Drug use: Never Substance use type: does not use Current gender identity: female Do you feel safe at home: Yes Do you feel safe in your relationship?: Yes Female Reproductive History Menstrual control method: none History History 2 1 Para 1 Hx # Term Pregnancies Multiple births Hx # Pregnancies Ectopic pregnancies AB induced Hx Number of Living Children AB spontaneous Exam Narrative Exam Narrative: Patient is sitting up in hospital [facility] in the ER. She appears uncomfortable and her verbal answers are short/abbreviated but appropriate. HEENT?sclera anicteric Neck?supple , no obvious adenopathy Respiratory?no labored breathing no audible wheeze Cardio?no tachycardia Abdomen?obese. 1 inch transverse incision in the epigastrium healing well. No focal tenderness or palpable abnormality at this site. Healing 5 mm trocar sites scattered across right upper quadrant. These are also unremarkable. Abdomen is benign. Skin?good turgor Extremities?moves all 4 without limitation Psych?Patient is attentive. Engages in conversation appropriately. A little weepy when talking about present issues. Results Last Vital Signs Temp 97.5 F L 06/14/20 06:00 Pulse 72 06/14/20 09:12 Resp 16 06/14/20 06:00 BP 124/74 06/14/20 09:12 Pulse Ox 100 06/14/20 09:12 Labs Result diagrams: 06/14/20 06:35 06/14/20 06:35 Labs: Laboratory Results - last 24 hr 06/14/20 06/14/20 06/14/20 06:35 06:35 06:35 WBC 6.27 RBC 4.66 Hgb 13.8 Hct 41.7 MCV 89.5 MCH 29.6 MCHC 33.1 RDW 12.9 Plt Count 319 MPV 9.6 Immature Gran % 0.2 Neutrophils % 72.5 Lymphocytes % 18.7 Monocytes % 7.0 Eosinophils % 1.0 Basophils % 0.6 Nucleated RBC % 0 Absolute Neutrophils 4.55 Absolute Lymphocytes 1.17 L Absolute Monocytes 0.44 Absolute Eosinophils 0.06 Absolute Basophils 0.04 ESR Sodium 140 Potassium 4.2 Chloride 103 Carbon Dioxide 28.9 Anion Gap 8.1 BUN 10 Creatinine 0.9 Estimated GFR/1.73 m2 >= 60.00 Glucose 125 H Calcium 8.9 Total Bilirubin 1.5 H AST 443 H ALT 427 H Alkaline Phosphatase 135 H C-Reactive Protein 0.51 H Total Protein 8.0 Albumin 4.0 Lipase 84 TSH 24.58 H Free T4 1.03 Acetaminophen < 2 06/14/20 06:35 WBC RBC Hgb Hct MCV MCH MCHC RDW Plt Count MPV Immature Gran % Neutrophils % Lymphocytes % Monocytes % Eosinophils % Basophils % Nucleated RBC % Absolute Neutrophils Absolute Lymphocytes Absolute Monocytes Absolute Eosinophils Absolute Basophils ESR 15 Sodium Potassium Chloride Carbon Dioxide Anion Gap BUN Creatinine Estimated GFR/1.73 m2 Glucose Calcium Total Bilirubin AST ALT Alkaline Phosphatase C-Reactive Protein Total Protein Albumin Lipase TSH Free T4 Acetaminophen
[2020-06-14] MEDS: PIPERACILLIN/TAZO 4.5 GM in Normal Saline 100 ML IVPB ×3 (12:25→23:55)
[2020-06-14 13:02] LABS: Source Nasal/Nares
[2020-06-14] MEDS: Docusate Sodium 100 MG CAP PO ×2 (13:59→20:12)
[2020-06-14] MEDS: Normal Saline 1,000 ML 75 ML IV (13:59)
[2020-06-14] MEDS: Enoxaparin 40 MG/0.4 ML SYR SC (13:59)
[2020-06-14] MEDS: Normal Saline Flush 10 ML SYR IVP (14:00)
[2020-06-14] MEDS: Pantoprazole 40 MG VIAL IVP (14:46)
[2020-06-14] MEDS: MORPHine 4 MG/ML SYR IVP ×2 (14:57→16:58)
--- NOTE | 2020-06-14 15:51 | NUR.NOTE ---
Nursing Note: 1500: this scribe asked to medicate pt by primary RN who was taking lunch break. RN requested to give 2mg oral hydromorphone and IVP protonix. this RN removes medications from pyxis and administers medications to pt. pt took oral 2mg dilaudid with water. pt immediately vomited a very large amount of water. dilaudid pill noted to be in emesis and it had begun to break down in the emesis. emesis with pill discarded in toilet. wasted 2mg dilaudid with ROULA Cruz at the [facility]. this RN alerts primary RNOleg about emesis. following discussion with primary RN, this scribes administers 4mg of IVP morphine per order.
[2020-06-14 16:50] LABS: COVID-19 PCR Negative (Negative)
[2020-06-14] MEDS: Dexamethasone 4 MG/ML VIAL IVP (17:58)
--- NOTE | 2020-06-14 18:22 | NUR.NOTE ---
Surgical services contacted after patient experienced 150 -200 cc emesis. New order for promethazine recieved, and dilaudid ivp for pain control. Decadron ordered f x1 for nausea and administered . Patient was resting with her eyes closed at last rounding. Nursing Note:
[2020-06-14] MEDS: HYDROmorphone 2 MG TAB PO (21:33)
[2020-06-15 00:20] VITALS: BP 141/75; PULSE 60; RESP 16; TEMP 36.5; O2SAT 95
[2020-06-15] MEDS: Normal Saline 1,000 ML 75 ML IV ×2 (03:04→17:04)
[2020-06-15] MEDS: Levothyroxine 200 MCG TAB PO (05:22)
[2020-06-15 07:22] LABS: Abs Immature Grans 0.03 10^3/uL (0.0-0.06); Absolute Basophil Count 0.03 10^3/uL (0.0-0.2); Absolute Eosinophil Count 0.01 10^3/uL (0.0-0.7); Absolute Monocyte Count 0.44 10^3/uL (0.1-0.8); Absolute Neutrophil Count 6.04 10^3/uL (1.2-6.7); Basophils % 0.4; Eosinophils % 0.1; HCT 38.7 % (36.0-46.0); HGB 12.7 g/dL (11.2-15.7); Immature Grans % 0.4; Lymphocytes % 15.5; MCH 29.6 pg (27.0-33.0); MCHC 32.8 % (32.0-36.0); MCV 90.2 fL (80-95); MPV 9.5 fL (8.0-11.0); Monocytes % 5.7; Neutrophils % 77.9; Nucleated RBC 0 %; Platelet Count 330 10^3/uL (130-400); RBC 4.29 10^6/uL (3.93-5.22); RDW 13.2 % (11.7-14.6); RDW-SD 43.5 fL; WBC 7.75 10^3/uL (4.4-10.8)
[2020-06-15 07:39] LABS: ALT 561 U/L (14-59); AST 303 U/L (15-37); Albumin 3.3 g/dL (3.4-5.0); Alkaline Phosphatase 204 U/L (46-116); Anion Gap 7.9 mmol/L (3-11); BUN 6 mg/dL (7-18); Bilirubin, Total 3.2 mg/dL (0.2-1.0); CO2 28.1 mmol/L (21.0-32.0); Calcium 8.9 mg/dL (8.5-10.1); Chloride 105 mmol/L (98-107); Glucose 111 mg/dL (74-106); Lipase 121 U/L (73-393); Potassium 3.6 mmol/L (3.5-5.1); Sodium 141 mmol/L (136-145); Total Protein 7.1 g/dL (6.4-8.2)
[2020-06-15 08:08] VITALS: BP 130/82; PULSE 77; RESP 17; TEMP 37.4; O2SAT 99
[2020-06-15] MEDS: PIPERACILLIN/TAZO 4.5 GM in Normal Saline 100 ML IVPB ×3 (09:13→23:58)
[2020-06-15] MEDS: Docusate Sodium 100 MG CAP PO ×3 (09:13→19:38)
--- NOTE | 2020-06-15 10:13 | INITIAL_ITS ---
- If Service Date Differs Date of service: 06/15/20 Time of Service: 10:13 Care Management Initial Assess REASON FOR HOSPITALIZATION:: Substernal pain PAST MEDICAL HISTORY/PAST SURGICAL HISTORY:: Medical History . Asthma. Hypothyroidism. Morbidly obese. Surgical History . History of cholecystectomy (~02/15/20) PREVIOUS FUNCTIONAL STATUS/SOCIAL/FAMILY SUPPORTS:: Tiny lives in [place], [place] with her boyfriend and 2 1/2 year old daughter. She works at [employer] in [place]. Ca statd that she has no other reelatives in the area as she is from [facility]. She is independent at baseline and receives WIC and [employer] for community services. CURRENT FUNCTIONAL STATUS:: Tiny was lying in bed when CM met with her. She was polite but disinclined to converse. She stated that her pain is fairly well controlled and hopes that the procedure on Wednesday at [facility] benjamin be helpful. ADVANCE DIRECTIVES:: none on file Has patient been provided with info about the portal/API?: Yes Did the patient sign up for the portal?: No CODE STATUS:: Full Code INSURANCE COVERAGE / FINANCIAL ISSUES:: Medicaid CURRENT HOME/COMMUNITY SERVICES/EQUIPMENT:: Food stamps and WIC PRIMARY CARE PHYSICIAN:: Marva Hitchcock POTENTIAL DISCHARGE NEEDS:: follow up with community providers and plan of care PATIENT/FAMILY EDUCATION NEEDS:: Review of discharge instructions, medications, limitations, follow up plam, [employer] TRANSPORTATION:: via private vehicle with family PLAN:: Tiny will likely discharge home with no new services. She will follow up with her community providers and plan of care and transport with friends/family.CM will continue to folow and support Tiny.
[2020-06-15] MEDS: HYDROmorphone 2 MG/ML VIAL IVP ×3 (11:31→19:03)
[2020-06-15] MEDS: Enoxaparin 40 MG/0.4 ML SYR SC (13:42)
[2020-06-15] MEDS: Pantoprazole 40 MG VIAL IVP (13:42)
[2020-06-15] MEDS: Normal Saline Flush 10 ML SYR IVP (13:42)
--- NOTE | 2020-06-15 15:09 | NUR.NOTE ---
Nursing Note: Spoke with Ariana at [facility]. A crew will be here on Wednesday at 0945am to corn picker patient to transfer to [facility] for wait and return for patient's ERCP.
[2020-06-15 16:14] VITALS: BP 128/61; PULSE 72; RESP 20; TEMP 36.6; O2SAT 97
[2020-06-15] MEDS: HYDROmorphone 2 MG TAB PO (22:24)
[2020-06-15 23:14] VITALS: BP 134/89; PULSE 77; RESP 17; TEMP 36.5; O2SAT 96
[2020-06-16] MEDS: Normal Saline 1,000 ML 75 ML IV (06:24)
[2020-06-16 07:58] VITALS: BP 135/84; PULSE 86; RESP 18; TEMP 37.2; O2SAT 98
[2020-06-16] MEDS: HYDROmorphone 2 MG TAB PO (08:07)
[2020-06-16] MEDS: Docusate Sodium 100 MG CAP PO ×3 (08:08→20:09)
[2020-06-16] MEDS: PIPERACILLIN/TAZO 4.5 GM in Normal Saline 100 ML IVPB ×3 (08:08→23:33)
[2020-06-16 11:06] LABS: ALT 601 U/L (14-59); AST 266 U/L (15-37); Albumin 3.2 g/dL (3.4-5.0); Alkaline Phosphatase 247 U/L (46-116); Anion Gap 9.2 mmol/L (3-11); BUN 4 mg/dL (7-18); Bilirubin, Total 3.5 mg/dL (0.2-1.0); CO2 24.8 mmol/L (21.0-32.0); CREATININE 0.7 mg/dL (0.55-1.02); Calcium 8.9 mg/dL (8.5-10.1); Chloride 104 mmol/L (98-107); Glucose 109 mg/dL (74-106); Potassium 3.2 mmol/L (3.5-5.1); Sodium 138 mmol/L (136-145); Total Protein 7.1 g/dL (6.4-8.2)
--- NOTE | 2020-06-16 12:48 | W.PM.PROGNOT ---
Date of Service Date of service: 06/16/20 Time of Service: 12:48 Assessment and Plan Assessment and plan (1) Hypokalemia: Status: Acute Assessment and plan: Will supplement with 20 mEq KCl 3 times daily x1 day Add 20 mEq to IV fluid to be run at 75 cc/h (2) Choledocholithiasis with obstruction: Status: Acute Assessment and plan: Laboratory studies continue to imply symptomatic choledocholithiasis. Patient aware of plans for they are in back ERCP at [facility] tomorrow. N.p.o. at midnight Hold Lovenox after today's dose Subjective Subjective Interval history since last seen: New issues in past 24 hours. Pain medication and antiemetics are effective. Tolerating some clear liquids without nausea or vomiting. Notes urine is darker than typical. Bilirubin today 3.5. Transaminases in 100s and alk phos 247. INR 1.0 There is aware of plans for transfer to [facility] for ERCP for tomorrow. Intended to be there and back procedure. Exam Narrative Exam Narrative: Patient remained supine in right lateral decubitus position in her bed throughout today's interaction. Answers are brief but appropriate. Abdomen obese, soft, minimally tender Objective Last Vital Signs Temp 99.0 F 06/16/20 07:58 Pulse 86 06/16/20 07:58 Resp 18 06/16/20 07:58 BP 135/84 06/16/20 07:58 Pulse Ox 98 06/16/20 07:58 Laboratory Results - last 24 hr 06/16/20 06/16/20 10:46 10:46 PT 10.0 INR 1.0 Sodium 138 Potassium 3.2 L Chloride 104 Carbon Dioxide 24.8 Anion Gap 9.2 BUN 4 L Creatinine 0.7 Estimated GFR/1.73 m2 >= 60.00 Glucose 109 H Calcium 8.9 Total Bilirubin 3.5 H AST 266 H ALT 601 H Alkaline Phosphatase 247 H Total Protein 7.1 Albumin 3.2 L
[2020-06-16] MEDS: Pantoprazole 40 MG VIAL IVP (13:14)
[2020-06-16] MEDS: Potassium Chloride 10 MEQ CAPCR 20 MEQ PO ×2 (13:15→20:10)
[2020-06-16] MEDS: HYDROmorphone 2 MG/ML VIAL IVP ×3 (13:15→21:21)
[2020-06-16] MEDS: Enoxaparin 40 MG/0.4 ML SYR SC (13:15)
--- NOTE | 2020-06-16 13:16 | CMPROGNOTE_ITS ---
- If Service Date Differs Date of service: 06/16/20 Time of Service: 13:16 Care Management Progress Note S/O:Tiny was dozing when CM met with her. She sleepily answered questions and stated that her pain is better.She is scheduled to go to [facility] tomorrow for an ERCP. A: Tiny id a 24 year old woman admitted on 06/14/20 with Cholodocholithiasis P: Tiny is scheduled to go to [facility] tomorrow, Wednesday06/17/20 for an ERCP. It is anticipated to be a down and back trip. The arrival time is 11 am with a procedure time of noon. Tiny will likely discharge home with no new services. She will follow up with her community providers and plan of care and transport with friends/family.CM will continue to follow and support Tiny. cc:
[2020-06-16] MEDS: POTASSIUM CHLORIDE/D5-0.45NACL 1,000 ML 75 MEQ IV (14:28)
[2020-06-16 15:36] VITALS: BP 148/72; PULSE 80; RESP 17; TEMP 36.7; O2SAT 96
[2020-06-16] MEDS: Normal Saline Flush 10 ML SYR IVP ×2 (17:07→21:22)
[2020-06-16] MEDS: Ondansetron 4 MG/2 ML VIAL IVP (21:21)
[2020-06-17 00:30] VITALS: BP 118/76; PULSE 72; RESP 18; TEMP 37; O2SAT 96
[2020-06-17] MEDS: HYDROmorphone 2 MG/ML VIAL IVP ×2 (01:06→07:01)
[2020-06-17] MEDS: Normal Saline Flush 10 ML SYR IVP ×2 (01:06→07:02)
[2020-06-17] MEDS: POTASSIUM CHLORIDE/D5-0.45NACL 1,000 ML 75 MEQ IV ×2 (03:17→21:33)
[2020-06-17] MEDS: Ondansetron 4 MG/2 ML VIAL IVP (07:02)
[2020-06-17 07:19] LABS: ALT 506 U/L (14-59); AST 192 U/L (15-37); Albumin 2.8 g/dL (3.4-5.0); Alkaline Phosphatase 239 U/L (46-116); Anion Gap 8.5 mmol/L (3-11); BUN 4 mg/dL (7-18); Bilirubin, Total 2.9 mg/dL (0.2-1.0); CO2 25.5 mmol/L (21.0-32.0); CREATININE 0.8 mg/dL (0.55-1.02); Calcium 8.5 mg/dL (8.5-10.1); Chloride 105 mmol/L (98-107); Glucose 112 mg/dL (74-106); Potassium 3.5 mmol/L (3.5-5.1); Sodium 139 mmol/L (136-145); Total Protein 6.5 g/dL (6.4-8.2)
[2020-06-17] MEDS: PIPERACILLIN/TAZO 4.5 GM in Normal Saline 100 ML IVPB ×3 (07:40→23:23)
[2020-06-17 08:09] VITALS: BP 120/79; PULSE 63; RESP 18; TEMP 36.7; O2SAT 94
[2020-06-17] MEDS: HYDROmorphone 2 MG TAB PO (09:41)
--- NOTE | 2020-06-17 09:43 | PGE_ITS ---
Date of Service Date of service: 06/17/20 Time of Service: 09:43 Assessment and Plan Assessment and plan (1) Choledocholithiasis with obstruction: Status: Acute Assessment and plan: Patient remains with symptomatic choledocholithiasis. Nontoxic. Transfer to [facility] today for planned ERCP and hopefully here and there procedure. Patient has been informed of risks and benefits. Consents to transfer. Subjective Subjective Interval history since last seen: No changes in condition in past 24 hours. Patient has persistent upper abdominal discomfort and occasional nausea. Has been n.p.o. overnight anticipating transfer to [facility] for ERCP today. Hypokalemia treated yesterday. Potassium 3.5 today. Bilirubin remains elevated at 2.9?a little lower than yesterday. Other liver enzymes remain elevated. Exam Narrative Exam Narrative: Sitting at bedside. Appears uncomfortable but not toxic. Respirations?nonlabored Cardio?not hypotensive not tachycardic Abdomen?obese, mild epigastric tenderness without guard Skin?good turgor Objective Last Vital Signs Temp 98.1 F 06/17/20 08:09 Pulse 63 06/17/20 08:09 Resp 18 06/17/20 08:09 BP 120/79 06/17/20 08:09 Pulse Ox 94 06/17/20 08:09 Laboratory Results - last 24 hr 06/16/20 06/16/20 06/17/20 10:46 10:46 06:47 PT 10.0 INR 1.0 Sodium 138 139 Potassium 3.2 L 3.5 Chloride 104 105 Carbon Dioxide 24.8 25.5 Anion Gap 9.2 8.5 BUN 4 L 4 L Creatinine 0.7 0.8 Estimated GFR/1.73 m2 >= 60.00 >= 60.00 Glucose 109 H 112 H Calcium 8.9 8.5 Total Bilirubin 3.5 H 2.9 H AST 266 H 192 H ALT 601 H 506 H Alkaline Phosphatase 247 H 239 H Total Protein 7.1 6.5 Albumin 3.2 L 2.8 L
[2020-06-17 10:31] LABS: Hepatitis A Antibody IgM Negative (Negative); Hepatitis B Core Antibody Negative (Negative); Hepatitis B surface Ag Negative (Negative); Hepatitis C Ab w Rflx HCV PCR Negative (Negative)
[2020-06-17 11:41] LABS: Lyme Ab w Rflx to Lyme Confirm Negative (Negative)
--- NOTE | 2020-06-17 12:22 | NUR.NOTE ---
Nursing Note: 06/17/2020 12:23 [facility] [place] [place] called this unit at approximately 10:50 for a [id number] handoff for this patient who was transferred for Endoscopic Retrograde Cholangiopancreatopography (ERCP) today, this RN provided a handoff and answered all questions. Joyce picked up patient at approximately 10:40 to transfer patient for a [id number] trip. Patient signed transfer paperwork, used the bathroom and independently transferred onto stretcher.
--- NOTE | 2020-06-17 14:13 | NUR.NOTE ---
Nursing Note: 06/17/2020 14:13 Sophia [place] [facility] on this patient, who is stable and out of procedure and returning here to [facility]. Patient had a stone that they removed during ERCP, patient received propofol, indomethacin, and zofran. VSS and patient has not reported any pain or nausea.
[2020-06-17 15:59] VITALS: BP 144/95; PULSE 70; RESP 15; TEMP 36.6; O2SAT 94
--- NOTE | 2020-06-17 17:30 | W.PM.PROGNOT ---
Date of Service Date of service: 06/17/20 Time of Service: 17:30 Assessment and Plan Assessment and plan (1) Cholangitis due to bile duct calculus with obstruction: Status: Acute Assessment and plan: Successful clearance of CBD obstruction w ERCP/Sphincterotomy Pt stable Will monitor for improvement and possible complications Continue IV abx comp/lipase/cbc in am clear diet w advance to low fat as benoit My VT assignment ends in am Dr Jaffe aware of pt and will assume care 06/18 Subjective Subjective Interval history since last seen: Pt sleepy- Feels about same as prior to ERCP. Review of [facility] procedure records reveals: -Choledocholithiasis was present and cleared - Purulence present in cbd indicating cholangitis - had sphincterotomy, balloon clearance and Spyglass exam of duct Exam Narrative Exam Narrative: Sleepy. Vitals unremarkable Easily aroused. Resp nonlabored Abd- soft and NT Objective Last Vital Signs Temp 97.9 F 06/17/20 15:59 Pulse 70 06/17/20 15:59 Resp 15 06/17/20 15:59 BP 144/95 H 06/17/20 15:59 Pulse Ox 94 06/17/20 15:59 Laboratory Results - last 24 hr 06/14/20 06/14/20 06/17/20 09:06 09:06 06:47 Sodium 139 Potassium 3.5 Chloride 105 Carbon Dioxide 25.5 Anion Gap 8.5 BUN 4 L Creatinine 0.8 Estimated GFR/1.73 m2 >= 60.00 Glucose 112 H Calcium 8.5 Total Bilirubin 2.9 H AST 192 H ALT 506 H Alkaline Phosphatase 239 H Total Protein 6.5 Albumin 2.8 L Lyme Disease Antibody Negative Hepatitis A IgM Ab Negative Hep Bs Antigen Negative Hep B Core Total Ab Negative Hepatitis C Antibody Negative
--- NOTE | 2020-06-17 17:34 | NUR.NOTE ---
Nursing Note: 06/17/2020 17:34 Patient arrived back to floor at approximately 15:55 with Joyce, who handed over paperwork from [facility] [place] to Tram Hemphill. Patient has not reported any pain or nausea/vomiting. Patient showered once back on the floor, is resting in bed.
[2020-06-17] MEDS: Docusate Sodium 100 MG CAP PO (19:26)
[2020-06-17] MEDS: Potassium Chloride 10 MEQ CAPCR 20 MEQ PO (19:26)
--- NOTE | 2020-06-17 19:54 | PDOC.CMPRO ---
- If Service Date Differs Date of service: 06/17/20 Time of Service: 19:54 Care Management Progress Note S/O: Tiny was at [facility] for an ERCP today. It was a down and back procedure, so she will return to [facility] once she is medically stable. CM will continue to follow. A: Tiny id a 24 year old woman admitted on 06/14/20 with Cholodocholithiasis P: Tiny will likely discharge home with no new services. She will follow up with her community providers and plan of care and transport with friends/family.CM will continue to follow and support Tiny.
[2020-06-17 21:02] LABS: Anaplasma phagocytophilum Negative (Negative); B. miyamotoi PCR Negative (Negative); Babesia divergens/MO-1 Negative (Negative); Babesia duncani Negative (Negative); Babesia microti Negative (Negative); Ehrlichia chaffeensis Negative (Negative); Ehrlichia ewingii/canis Negative (Negative); Ehrlichia muris eauclairensis Negative (Negative)
[2020-06-18 05:50] VITALS: BP 117/80; PULSE 65; RESP 14; TEMP 36.7; O2SAT 96
[2020-06-18 06:58] LABS: HCT 37.5 % (36.0-46.0); HGB 12.5 g/dL (11.2-15.7); MCH 29.4 pg (27.0-33.0); MCHC 33.3 % (32.0-36.0); MCV 88.2 fL (80-95); MPV 9.9 fL (8.0-11.0); Platelet Count 341 10^3/uL (130-400); RBC 4.25 10^6/uL (3.93-5.22); RDW 13.5 % (11.7-14.6); RDW-SD 43.5 fL; WBC 5.93 10^3/uL (4.4-10.8)
[2020-06-18 07:17] LABS: ALT 463 U/L (14-59); AST 140 U/L (15-37); Albumin 2.7 g/dL (3.4-5.0); Alkaline Phosphatase 252 U/L (46-116); Anion Gap 9.9 mmol/L (3-11); BUN 7 mg/dL (7-18); Bilirubin, Total 1.9 mg/dL (0.2-1.0); CO2 26.1 mmol/L (21.0-32.0); CREATININE 0.8 mg/dL (0.55-1.02); Calcium 8.6 mg/dL (8.5-10.1); Chloride 105 mmol/L (98-107); Glucose 101 mg/dL (74-106); Lipase 385 U/L (73-393); Potassium 3.7 mmol/L (3.5-5.1); Sodium 141 mmol/L (136-145); Total Protein 6.7 g/dL (6.4-8.2)
[2020-06-18] MEDS: PIPERACILLIN/TAZO 4.5 GM in Normal Saline 100 ML IVPB (07:37)
[2020-06-18] MEDS: Docusate Sodium 100 MG CAP PO (07:38)
[2020-06-18] MEDS: Potassium Chloride 10 MEQ CAPCR 20 MEQ PO (07:38)
[2020-06-18 07:55] VITALS: BP 122/82; PULSE 83; RESP 18; TEMP 35.7; O2SAT 96
--- NOTE | 2020-06-18 10:38 | W.PM.PROGNOT ---
Date of Service Date of service: 06/18/20 Time of Service: 07:01 Assessment and Plan Assessment and plan (1) Cholangitis due to bile duct calculus with obstruction: Status: Acute Assessment and plan: Successful clearance of CBD obstruction w ERCP/Sphincterotomy on 06/17 Patient was very tired this morning, falling asleep while speaking with this provider. total bilirubin, AST and ALT improving today. Will start low fat diet. Abdominal pain has resolved. Encouraged sitting up out of bed and ambulation. continue use of incentive spirometer. Continue to monitor to see how she tolerates diet. Subjective Subjective Interval history since last seen: Arrived with patient sleeping. She denied having any abdominal pain, nausea or vomiting. Exam Const General: cooperative and comfortable Orientation: alert Resp Effort & Inspection: normal respiratory effort, no audible wheezes and no cough GI Inspection: normal to inspection Palpation: soft, no guarding and nontender Objective Last Vital Signs Temp 35.7 C L 06/18/20 07:55 Pulse 83 06/18/20 07:55 Resp 18 06/18/20 07:55 BP 122/82 06/18/20 07:55 Pulse Ox 96 06/18/20 07:55 Laboratory Results - last 24 hr 06/14/20 06/14/20 06/18/20 09:06 09:06 06:20 WBC RBC Hgb Hct MCV MCH MCHC RDW Plt Count MPV Sodium 141 Potassium 3.7 Chloride 105 Carbon Dioxide 26.1 Anion Gap 9.9 BUN 7 Creatinine 0.8 Estimated GFR/1.73 m2 >= 60.00 Glucose 101 Calcium 8.6 Total Bilirubin 1.9 H AST 140 H ALT 463 H Alkaline Phosphatase 252 H Total Protein 6.7 Albumin 2.7 L Lipase 385 Lyme Disease Antibody Negative Hepatitis A IgM Ab Negative Hep Bs Antigen Negative Hep B Core Total Ab Negative Hepatitis C Antibody Negative 06/18/20 06:20 WBC 5.93 RBC 4.25 Hgb 12.5 Hct 37.5 MCV 88.2 MCH 29.4 MCHC 33.3 RDW 13.5 Plt Count 341 MPV 9.9 Sodium Potassium Chloride Carbon Dioxide Anion Gap BUN Creatinine Estimated GFR/1.73 m2 Glucose Calcium Total Bilirubin AST ALT Alkaline Phosphatase Total Protein Albumin Lipase Lyme Disease Antibody Hepatitis A IgM Ab Hep Bs Antigen Hep B Core Total Ab Hepatitis C Antibody
[2020-06-18] MEDS: POTASSIUM CHLORIDE/D5-0.45NACL 1,000 ML 75 MEQ IV (10:58)
--- NOTE | 2020-06-18 12:36 | W.PM.DS.N ---
Date of service: 06/18/20 Time of Service: 12:36 DS: Diagnosis Discharge Diagnosis (1) Cholangitis due to bile duct calculus with obstruction: Status: Acute Discharge Plan Disposition Patient Disposition: HOME Condition: Good Discharge Details Reason For Visit: CHOLEDOCHOLITHIASIS Admit Date/Time: 06/14/20 12:56 Admit Provider: Sina Mart Attending Provider: Sina Mart [facility] Course: 24 y/o female presented to the ER on 06/14 for complaints of sharp epigastric pain. She has had several ED visits with similar complaints since under going a laparoscopic cholecystectomy on 02/15/20. Abdominal MRI on 06/14/20 showed possible retained stone or debri in the mid common duct. She went to [facility] on 06/17 for ERCP which was remarkable for choledocholithiasis and pus. Complete removal was accomplished by biliary sphincterotomy, ductoscopy with EHL, and balloon extraction. Today the patient is feeling much better, her abdominal has resolved and her total bilirubin, AST and ALT are improving. Her WBC continues to be normal. She has received IV antibiotics during her stay in the hospital and will not require antibiotics upon d/c. She will d/c home and follow up in the Surgical office later this week and will have labs drawn at this time to ensure these values continue to trend down. Home Meds and New Rx's Prescriptions: Continued albuterol sulfate 90 mcg/actuation HFA aerosol inhaler 2 puff inhalation Q6H PRNRF: 0 valacyclovir [Valtrex] 500 mg Tablet 500 mg PO PRN PRNRF: 0 levothyroxine 150 mcg tablet 200 mcg PO DAILY RF: 0 Discharge Instructions Instructions: ERCP (Endoscopic Retrograde Cholangiopancreatography) (DC) Stand Alone Forms: Nursing Discharge Form Referrals: Mar Jaffe MD [ [facility] STAFF PHYSICIAN] - Activity:: Activity as Tolerated Equipment/Supplies:: No Equipment Needed Diet:: Low Fat Diet Discharge Orders Discharge Orders: Discharge Order (Routine); Ordered 06/18/20 Ordered By: Flaca Price DS: Summary Time Spent with Patient providing and/or coordinating discharge services: Less than 30 minutes Status at Discharge Functional status at discharge: independent ambulation Overall status at discharge: patient is back to baseline Mental Status: mental status grossly normal Speech and Movement: speech and movement normal Mood: congruent mood Affect: normal affect Exam Psych Mental Status: mental status grossly normal Speech and Movement: speech and movement normal Mood: congruent mood Affect: normal affect DS: Data Vitals/I&O Vitals and I&O: Vital Signs Temperature 35.7 C L 06/18/20 07:55 Temperature Source Tympanic 06/18/20 07:55 Pulse 83 06/18/20 07:55 Pulse Rhythm Regular 06/18/20 07:35 Respiratory Rate 18 06/18/20 07:55 Respiratory Effort Non-Labored 06/18/20 07:35 Respiratory Depth Normal 06/18/20 07:35 Respiratory Pattern Normal 06/18/20 07:35 Blood Pressure 122/82 06/18/20 07:55 Blood Pressure Mean 97 06/14/20 13:31 Blood Pressure Position Sitting 06/14/20 06:00 Pulse Oximetry 96 06/18/20 07:55 Oxygen Delivery Method Room Air 06/18/20 07:55 Oxygen Flow Rate 0 06/18/20 07:55 Pain Level 0 06/18/20 07:55 Comment 06/17/20 15:59 Intake & Output 06/17/20 06/18/20 06/18/20 18:59 06:59 18:59 Intake Total 671.25 / 1421.25 750 / 1421.25 1086.25 / 1086.25 Balance 671.25 / 1421.25 750 / 1421.25 1086.25 / 1086.25 Intake: IV 671.25 / 1221.25 550 / 1221.25 996.25 / 996.25 Oral 200 / 200 90 / 90 Other: Comment Patient has reported normal urination. patient has reported urine darker yellow in color. Data Completed and Pending Labs on day of discharge: Labs from last 24 hours 06/18/20 06/18/20 06/14/20 06:20 06:20 09:06 WBC 5.93 RBC 4.25 Hgb 12.5 Hct 37.5 MCV 88.2 MCH 29.4 MCHC 33.3 RDW 13.5 Plt Count 341 MPV 9.9 Sodium 141 Potassium 3.7 Chloride 105 Carbon Dioxide 26.1 Anion Gap 9.9 BUN 7 Creatinine 0.8 Estimated GFR/1.73 m2 >= 60.00 Glucose 101 Calcium 8.6 Total Bilirubin 1.9 H AST 140 H ALT 463 H Alkaline Phosphatase 252 H Total Protein 6.7 Albumin 2.7 L Lipase 385 A.phagocytophil DNA PCR Negative B. divergens/MO-1 PCR Negative Babesia duncani (PCR) Negative Babesia microti DNA PCR Negative Borrelia (PCR) Negative Lyme Disease Antibody Negative E.chaffeensis DNA (PCR) Negative E.ewingii/canis DNA PCR Negative E. muris-like DNA (PCR) Negative PFSH Medical History Asthma Hypothyroidism Morbidly obese Surgical History History of cholecystectomy (~02/15/20) Social History Smoking/Tobacco Use Status: Former Tobacco Use Smoking risk assessment performed?: Yes Alcohol Intake: never Drug use: Never Substance use type: does not use Current gender identity: female Do you feel safe at home: Yes Do you feel safe in your relationship?: Yes Female Reproductive History Menstrual control method: none History History 1 Para 1 Hx # Term Pregnancies Multiple births Hx # Pregnancies Ectopic pregnancies AB induced Hx Number of Living Children AB spontaneous
--- NOTE | 2020-06-18 18:03 | CMDISCH_ITS ---
- If Service Date Differs Date of service: 06/18/20 Time of Service: 18:04 LACE Index Scoring Tool - Questions: Length of Stay (in days): 4 - 6 Acuity (Admit via E.D.?): Yes E.D. Visits: 8 - Answers: Total Score: 11 Risk of Readmission: High Risk Care Management Discharge Reason for Hospitalization: Substernal pain Discharge Plan: Ganga will return home today with no services. Her family will drive her via private vehicle. She will follow up with her surgeon, PCP, and dis charge plan of care. Patient/Family Education Needs: Review discharge instructions, discussion of self care needs.
--- NOTE | 2020-06-20 23:18 | W.PM.PROGNOT ---
Date of Service Date of service: 06/15/20 Time of Service: 10:30 Assessment and Plan Assessment and plan (1) Choledocholithiasis with obstruction: Status: Acute Assessment and plan: Remains with symptoms and lab abnormalities suggesting persistant choledocholithiasis with resulting hyperbilirubinemia. No overt cholangitis manifest. Plan for ERCP at [facility] 06/17 Cont IV ABX Light diet recheck chemistries again 06/16 Subjective Subjective Interval history since last seen: No new issues overnite. mild abd pain and anorexia persist. no fevers, no shaking chills Urine noted to be dark bili 1.5 ---> 3.2 this am Exam Const General: cooperative and no acute distress Nutritional Appearance: obese Orientation: alert Eyes Sclera: sclerae normal Resp Effort & Inspection: normal respiratory effort and able to speak in complete sentences GI Other: Mild upper abd tenderness without guard Objective Last Vital Signs Temp 96.3 F L 06/18/20 07:55 Pulse 83 06/18/20 07:55 Resp 18 06/18/20 07:55 BP 122/82 06/18/20 07:55 Pulse Ox 96 06/18/20 07:55
== END 2020-06-18 13:43 | disposition home or self-care (01) | DRG 445 ==
LOC: ER 13:20 → MS 14:03
PROVIDERS: Emergency Medicine; Admitting Provider Surgery Vascular Surgery; Emergency Provider Student in an Organized Health Care Education/Training Program; PCP Family Medicine; Visit Provider Surgery Vascular Surgery
DX: K80.31 Calculus of bile duct with cholangitis, unspecified, with obstruction (principal); Z68.42 Body mass index [BMI] 45.0-49.9, adult; E87.6 Hypokalemia; E03.9 Hypothyroidism, unspecified; J45.909 Unspecified asthma, uncomplicated; E66.01 Morbid (severe) obesity due to excess calories; Z87.891 Personal history of nicotine dependence
CPT/HCPCS: 36415; 80053; 81025; 83690; 85027; 85652; 86704; 86709; 86803; 87340; 87635; 87798; 96365; 96375; 96376; 99232; 99238; 99254; 99285; J1650; 74181; 76705; 80329; 84439; 84443; 85025; 85610; 86140; 86618; A0425; A0428; A0429; J1100; J2270; J2405; J2543

== ENCOUNTER 2020-07-15 02:48 | Outpatient (CLI) | payer MEDICAID, SELFPAY ==
[2020-07-15 11:33] LABS: Source Nasal/Nares
[2020-07-15 16:43] LABS: COVID-19 PCR Negative (Negative)
== END 2020-07-15 02:49 | disposition home or self-care (01) ==
LOC: LBO 02:48
PROVIDERS: Surgery; PCP Family Medicine; Visit Provider Surgery
DX: Z20.822 Contact with and (suspected) exposure to COVID-19 (principal); Z01.818 Encounter for other preprocedural examination
CPT/HCPCS: 87635

== ENCOUNTER 2020-07-17 10:11 | Day surgery (SDC) | payer MEDICAID, SELFPAY ==
--- NOTE | 2020-07-17 06:54 | W.COLOREPORT ---
Date of service: 07/17/20 Colonoscopy Report Date of procedure: 07/17/20 Pre-op diagnosis general: Nausea and Vomiting Procedure: EGD with biopsies Surgeon: Mar Jaffe Anesthesia Type: General:No Airway Complications: None Disposition: same day Indications: Ms Cline is a 24-year-old female who is here today after her inpatient stay in the hospital.? Her past medical history is significant for having undergone a laparoscopic cholecystectomy back in January 2020.? She initially had resolution of her right upper quadrant pain and nausea.? She then unfortunately had recurrence of the symptoms and eventually was seen in the emergency department in May.? Her labs at that time showed an elevated bilirubin.? She underwent MRCP which showed nonobstructive doing debris is within the lumen of the proximal common duct.? There is patency of the distal common duct.? She underwent ERCP down at [facility].? They did a sphincterotomy and cleared her duct of small stones and debris.? Again she initially felt better and was able to eat without nausea and vomiting and was discharged from the hospital on June 20.? She states that she felt okay for a few days but then as she was starting to increase her diet she again started to have nausea with some intermittent vomiting and abdominal pain.? She also has noticed loose stools after eating.? She does state that she is not eating anything fatty.? She has not lost any weight. Differential and include gastritis from increased acid versus from bile, postcholecystectomy diarrhea which can cause abdominal pain due to increased gas.? She definitely does not have epigastric tenderness today on examination or right upper quadrant tenderness. Recommend starting on some omeprazole 40 mg daily as well as cholestyramine 3 times a day prior to meals.? I will also schedule her for an upper endoscopy just to make sure that she does not have any ulcers or H. pylori infection.? Risks, benefits and complications of the procedure were reviewed with her and she wished to proceed. Risks, benefits and complications have been reviewed. Complications include but are not limited to bleeding, pain, perforation, sore throat, aspiration, and adverse reaction to the medications.? Questions were entertained and answered to their satisfaction and they wished to proceed. No guarantees were given or implied.? COVID-19 testing explained to the patient. Reason for test reviewed. Quarantine per state requirements reviewed with patient. Patient understands and agrees to testing. Procedure Description: After informed consent was obtained the patient was taken to the procedure room and placed in a left decubitous position. Monitors were applied and a time out was done. The patients name, date of , procedure, allergies to medications and metal in their body was reviewed. The patient was then sedated. Once sedated and comfortable a rectal exam was done. External exam was normal. Internal exam revealed a normal sphincter tone and no palpable masses. The scope was then introduced and retro-flexed. [] internal hemorrhoids, polyps or masses were identified on retro-flexion. The scope was then advanced to the cecum [] difficulty. The ileocecal vlave and appendiceal orifice were identified. The prep was []. The scope was then slowly retracted over [] minutes back into the rectum. Polyps were removed at []. There was [] diverticulosis noted. The scope was removed and the patient was woken up and taken back to Same day surgery in stable condition. The patient tolerated the procedure well and there were no immediate complications. Follow up: The patient should follow up in [] years unless they develop changes in bowel habits or other new gastrointestinal complaints.
--- NOTE | 2020-07-17 06:56 | W.PM.DSUDISC ---
Discharge Plan Disposition Patient Disposition: HOME Condition: Good Discharge Details Reason For Visit: ABDOMINAL PAIN/DIARRHEA/N/V Attending Provider: Mar Jaffe Primary Care Provider: Marva Hitchcock Home Meds and New Rx's Prescriptions: New sucralfate [Carafate] 1 gram tablet 1 g PO TID Qty: 90 RF: 0 Continued omeprazole 40 mg capsule,delayed release(DR/EC) 40 mg PO DAILY Qty: 30 RF: 0 Cholestyramine Light 4 gram powder 1 pwd PO QACHS Qty: 210 RF: 0 albuterol sulfate 90 mcg/actuation HFA aerosol inhaler 2 puff inhalation Q6H PRNRF: 0 valacyclovir [Valtrex] 500 mg Tablet 500 mg PO PRN PRNRF: 0 levothyroxine 150 mcg tablet 200 mcg PO DAILY RF: 0 Discharge Instructions Instructions: Gastritis (DC), Hiatal Hernia (DC) Additional Instructions: Findings: small Hiatal hernia inflammation in the stomach Follow up: 2 weeks in the office Please call if you develop: fevers >101.5 Nausea or Vomiting Abdominal pain that is not transient Rectal bleeding that is more then a tbsp A hard abdomen and inability to pass gas DAY SURGERY UNIT POST ENDOSCOPY INSTRUCTIONS Instructions for everyone who is given Anesthesia: For your safety, please do the following for the next 24 Hours: a. Do not drive or operate dangerous equipment b. Do not drink alcohol beverages or use any recreational drugs for the first 24 hours or while taking pain medications. The medications in your body may have a reaction that can be dangerous. c. Do not make any important decisions or sign any important papers 1. Generally there are no restrictions on your activity after a day or so has gone by, but you may feel a bit fatigued for a few days. 2. After you arrive home you may have a light meal and return to a normal diet as you can tolerate it without feeling sick to your stomach. 3. After surgery, you may feel pain or discomfort. This should be only transient, but if it persists please contact your doctor. 4. If there are any questions regarding the findings of your procedure, please feel free to contact your doctor. 6. If you are unable to contact your doctor with a problem, contact the hospital at [phone]. 7. Continue all your regular medications unless directed otherwise. I understand the above instructions and have no questions. Signature of Patient or Responsible Adult Escort Date/Time Name of Responsible Adult Escort Signature of Nurse Date/Time Activity:: Activity as Tolerated Diet:: As Tolerated Discharge Orders Discharge Orders: Discharge Order (Routine); Ordered 07/17/20 Ordered By: Mar Jaffe
[2020-07-17 10:28] VITALS: BP 109/75; PULSE 85; RESP 16; TEMP 36.4; O2SAT 100
[2020-07-17] MEDS: Lactated Ringers 1,000 ML 80 ML IV (10:47)
--- NOTE | 2020-07-17 10:54 | W.ANESPRE ---
General Info Date of Service Date Performed: 07/17/20 Height: 5 ft 2 in Weight: 117.6 kg Body Mass Index (BMI): 47.4 Surgical Procedure: Operation Date: 07/17/20 11:35 Proposed Procedures Side Surgeon p Gastroscopy Mar Jaffe MD Meds Allergies and Home Medications Allergies Allergy/AdvReac Type Severity Reaction Status Date / Time No Known Allergies Allergy Unverified 07/17/20 10:33 Home Medication Medication Instructions Recorded valacyclovir [Valtrex] 500 mg PO PRN PRN 09/18/19 albuterol sulfate 90 mcg/actuation 2 puff INHALATION Q6H PRN 11/28/19 aerosol inhaler levothyroxine 150 mcg tablet 200 mcg PO DAILY tab 11/28/19 cholestyramine-aspartame 4 gram 1 pwd PO QACHS #210 g 07/02/20 oral powder omeprazole 40 mg capsule,delayed 40 mg PO DAILY #30 cap 07/02/20 release Current Visit Medications: Current Medications Generic Name Dose Route Start Last Admin Trade Name Jarrodq PRN Reason Stop Dose Admin Hyoscyamine Sulfate 0.125 mg 07/17/20 06:56 Hyoscyamine 0.125 Mg Sl/Oral/Chew SL DIRECTED PRN Ringer's Solution 1,000 mls @ 80 mls/hr 07/17/20 06:00 07/17/20 10:47 IV 08/15/20 23:59 80 mls/hr INFUSION RIGO Administration IV Miscellaneous Supplies 1 each 07/17/20 06:00 Iv Access IV 08/15/20 23:59 DIRECTED RIGO Ondansetron HCl 4 mg 07/17/20 06:56 Ondansetron 4 Mg/2 Ml Vial IVP Q4H PRN PRN Nausea / Vomiting Sodium Chloride 0 ml 07/17/20 06:00 Normal Saline Flush 10 Ml Syr IV 08/15/20 23:59 PRN PRN Sodium Chloride 0 ml 07/17/20 06:00 Normal Saline 10 Ml Vial IJ 08/15/20 23:59 DIRECTED PRN Sterile Water 0 ml 07/17/20 06:00 Water,Injection,Sterile 10 Ml Vial IJ 08/15/20 23:59 DIRECTED PRN PFSH Active Problems Active Problems: Problem Status Onset Code Hypokalemia E87.6 Atypical chest pain R07.89 Epigastric abdominal pain R10.13 Elevated TSH R79.89 Low serum T4 level R79.89 Noncompliance with medication regimen Z91.14 Abdominal pain R10.9 Intractable abdominal pain R10.9 History of cholelithiasis Z87.19 Biliary colic K80.50 Morbidly obese E66.01 Hypothyroidism E03.9 Medical History Medical History Acute cholecystitis Asthma Cholangitis due to bile duct calculus with obstruction Choledocholithiasis with obstruction History of radioactive iodine thyroid ablation Hypothyroidism Morbidly obese Surgical History Surgical History H/O endoscopic retrograde cholangiopancreatography (~06/17/20) History of cholecystectomy (~02/15/20) Tobacco Smoking/Tobacco Use Status: Former Tobacco Use Alcohol Alcohol Intake: never Substance Use Substance use: Never Substance use type: does not use Prental History History 1 Para 1 Hx # Term Pregnancies Multiple births Hx # Pregnancies Ectopic pregnancies AB induced Hx Number of Living Children AB spontaneous Vital Signs and Lab Results Vital Signs Most Recent Vital Signs in EMR: Most Recent Vital Signs Temp Pulse Resp BP Pulse Ox 36.4 C L 85 16 109/75 100 07/17/20 10:28 07/17/20 10:28 07/17/20 10:28 07/17/20 10:28 07/17/20 10:28 Point of Care Results Point of Care Results: POC- Test(urine) Negative 07/17/20 10:35 Lab Results Blood Type / Crossmatch: No Data to Display Complete Blood Count: White Blood Count 5.93 10^3/uL (4.4-10.8) 06/18/20 06:20 06/18/20 Red Blood Count 4.25 10^6/uL (3.93-5.22) 06/18/20 06:20 06/18/20 Hemoglobin 12.5 g/dL (11.2-15.7) 06/18/20 06:20 06/18/20 Hematocrit 37.5 % (36.0-46.0) 06/18/20 06:20 06/18/20 Platelet Count 341 10^3/uL (130-400) 06/18/20 06:20 06/18/20 Complete Metabolic Panel: Sodium Level 141 mmol/L (136-145) 06/18/20 06:20 06/18/20 Potassium Level 3.7 mmol/L (3.5-5.1) 06/18/20 06:20 06/18/20 Chloride Level 105 mmol/L (98-107) 06/18/20 06:20 06/18/20 Carbon Dioxide Level 26.1 mmol/L (21.0-32.0) 06/18/20 06:20 06/18/20 Blood Urea Nitrogen 7 mg/dL (7-18) 06/18/20 06:20 06/18/20 Creatinine 0.8 mg/dL (0.55-1.02) 06/18/20 06:20 06/18/20 Calcium Level 8.6 mg/dL (8.5-10.1) 06/18/20 06:20 06/18/20 Albumin 2.7 g/dL (3.4-5.0) L 06/18/20 06:20 06/18/20 Glucose Level 101 mg/dL (74-106) 06/18/20 06:20 06/18/20 Liver Function Panel: Alanine Aminotransferase (ALT/SGPT) 463 U/L (14-59) H 06/18/20 06:20 06/18/20 Aspartate Amino Transf (AST/SGOT) 140 U/L (15-37) H 06/18/20 06:20 06/18/20 Coagulation Panel: No Data to Display Cardiac Panel: No Data to Display Arterial Blood Gas: No Data to Display Venous Blood Gas: No Data to Display Pancreas Panel: Lipase 385 U/L (73-393) 06/18/20 06:20 06/18/20 Thyroid Panel: No Data to Display Infectious Disease: Coronavirus (COVID-19)(PCR) Negative (Negative) 07/15/20 10:43 07/15/20 Coronavirus 2019 Source Nasal/nares 07/15/20 10:43 07/15/20 Blood Cultures: No Data to Display Toxicology Panel: No Data to Display Panel: No Data to Display Imaging and Studies Imaging and Studies EKG Summary: DATE/TIME OF SERVICE: 05/25/20 1535 Conclusion Sinus rhythm...normal P axis, V-rate 60- 99 Anesthesia Assessment and Plan Anesthesia History Personal History: No History of Anesthesia Complications Family History: No Family History of Anesthesia Complications Exercise Tolerance Exercise Tolerance: Metabolic Equivalents>4 Pertinent Negatives Pertinent Negatives: No Symptoms of GERD Cardiac & Pulmonary Exam Cardiac Exam: Normal S1/S2 Heart Sounds Pulmonary Exam: Clear Bilateral Breath Sounds Airway Exam Known Difficult Airway: No Mallampati Class: 2 Mouth Opening: Normal (> 3cm) Thyromental Distance: Greater than 3 cm Neck Range of Motion: Full ROM Neck Circumference: Thick Teeth Condition: Normal Dentition ASA Classification ASA Score: ASA 3 Emergency Case?: No NPO Status NPO Status: NPO Clears >2 hours, Solids >8 hours Status Status: Negative HCG Anesthesia Plan Resuscitation Status: Full Code Anesthesia Technique: General Anesthesia Airway Planned: Natural Airway Monitors Used: Standard Monitors
[2020-07-17 10:55] VITALS: BMI 47.4
--- NOTE | 2020-07-17 11:30 | W.ANESPOSTOP ---
Postoperative Evaluation Date, Time and Location Date Performed: 07/17/20 Time Performed: 11:30 Patient Location: Day Surgery Unit Vital Signs Most Recent Imported Vital Signs: Most Recent Vital Signs Temp Pulse Resp BP Pulse Ox 36.4 C L 85 16 109/75 100 07/17/20 10:28 07/17/20 10:28 07/17/20 10:28 07/17/20 10:28 07/17/20 10:28 Most Recent Manually Entered Vital Signs: Adult Blood Pressure: 130/85 Heart Rate: 76 Respirations: 16 Oxygen Saturation (%): 98 Temperature (C): 36.2 C Pain Score (0-10 Scale): 0 Pain Score Most Recent Pain Score: Most Recent Pain Score Pain Level 0 07/17/20 10:28 Assessment Mental Status: Arousable with meaningful communication Airway and Respiratory Function: Patent airway with normal (patient baseline) respiratory exam Cardiovascular Function: Hemodynamically Stable Hydration Status: Adequately Hydrated Nausea & Vomiting: No Nausea or Vomiting Pain: Pt. Denies Any Pain Peripheral Nerve Block: Patient did not receive a nerve block
--- NOTE | 2020-07-17 11:46 | BOWEL_PTH ---
PATIENT: Tiny Cline LOC: [facility] U#:[id number] AGE/SX: 24/F ROOM: RE07/17/[address]: Mar Jaffe MD : 1995 BED: DIS: 07/17/2020 SPEC #: [id number] RECD: 07/17/20 12:52 STATUS: DEMETRICE REShantal #: [id number] LUDY: 07/17/20 11:[address]: Mar Jaffe DEPT: Surgical Specimen RECD BY: Chacha Zimmerman ENTERED: 07/17/20 12:53 SP TYPE: Bowel OTHR DR: Marva Hitchcock Tissues: 1 - BIOPSY BOWEL 2 - STOMACH BIOPSY 3 - ESOPHAGUS BIOPSY Procedures: GROSS AND MICRO LEVEL 4 IMMUNOPEROXIDASE STAIN Comments: [id number]
--- NOTE | 2020-07-17 12:02 | ENDO_ITS ---
Date of service: 07/17/20 Time of Service: 11:44 Endoscopy Report DATE OF PROCEDURE: 07/17/20 INDICATIONS: Ms Cline is a 24-year-old female who is here today after her inpatient stay in the hospital.? Her past medical history is significant for having undergone a laparoscopic cholecystectomy back in January 2020.? She initially had resolution of her right upper quadrant pain and nausea.? She then unfortunately had recurrence of the symptoms and eventually was seen in the emergency department in May.? Her labs at that time showed an elevated bilirubin.? She underwent MRCP which showed nonobstructive doing debris is within the lumen of the proximal common duct.? There is patency of the distal common duct.? She underwent ERCP down at [facility].? They did a sphincterotomy and cleared her duct of small stones and debris.? Again she initially felt better and was able to eat without nausea and vomiting and was discharged from the hospital on June 20.? She states that she felt okay for a few days but then as she was starting to increase her diet she again started to have nausea with some intermittent vomiting and abdominal pain.? She also has noticed loose stools after eating.? She does state that she is not eating anything fatty.? She has not lost any weight. Differential and include gastritis from increased acid versus from bile, postcholecystectomy diarrhea which can cause abdominal pain due to increased gas.? She definitely does not have epigastric tenderness today on examination or right upper quadrant tenderness. Recommend starting on some omeprazole 40 mg daily as well as cholestyramine 3 times a day prior to meals.? I will also schedule her for an upper endoscopy just to make sure that she does not have any ulcers or H. pylori infection.? Risks, benefits and complications of the procedure were reviewed with her and she wished to proceed. Risks, benefits and complications have been reviewed. Complications include but are not limited to bleeding, pain, perforation, sore throat, aspiration, and adverse reaction to the medications.? Questions were entertained and answered to their satisfaction and they wished to proceed. No guarantees were given or implied.? COVID-19 testing explained to the patient. Reason for test reviewed. Quarantine per state requirements reviewed with patient. Patient understands and agrees to testing. PROCEDURE START TIME: 11:44 PROCEDURE END TIME: 11:51 PROCEDURE DESCRIPTION: After informed consent was obtained the patient was take to the procedure room and placed in a supine position. Monitors were applied and a time out was done. The patients name, date of , procedure type, allergies to medications and metal in their body was reviewed. A bite block was placed and the patient was sedated. Once sedated and comfortable the gastroscope was advanced through the oropharynx which was grossly normal into the esophagus. The proximal and mid- esophagus were normal. In the distal esophagus there was mild inflammation noted. The scope was advanced into the stomach and through the pylorus into the 3rd portion of the duodenum. The duodenum was noted to be normal. Biopsies were done to rule out Celiac. The scope was retracted back into the stomach. There was a lot of bile noted in the stomach. There was mild to moderate inflammation noted and biopsies were done to rule out H. pylori. There were no ulcers. The scope was retroflexed. The cardia and fundus were noted to be normal. There was a small hiatal hernia noted. The scope was retracted back into the esophagus and biopsies were done of the GE junction to rule out Franco's. The Z line was regular. The GE junction was at 35 cm. The scope was removed and the patient was woken up and taken back to [facility] in stable condition. Follow up: 2 weeks with Flaca Price PA-C. Start Carafate
--- NOTE | 2020-07-17 12:03 | W.ANESPOSTOP ---
Postoperative Evaluation Date, Time and Location Date Performed: 07/17/20 Time Performed: 12:03 Patient Location: Day Surgery Unit Vital Signs Most Recent Imported Vital Signs: Most Recent Vital Signs Temp Pulse Resp BP Pulse Ox 36.4 C L 85 16 109/75 100 07/17/20 10:28 07/17/20 10:28 07/17/20 10:28 07/17/20 10:28 07/17/20 10:28 Most Recent Manually Entered Vital Signs: Adult Blood Pressure: 110/74 Heart Rate: 98 Respirations: 16 Oxygen Saturation (%): 99 Temperature (C): 36.4 C Pain Score (0-10 Scale): 8 Pain Score Most Recent Pain Score: Most Recent Pain Score Pain Level 0 07/17/20 10:28 Assessment Mental Status: Awake (Alert & Oriented to Patient Baseline) Airway and Respiratory Function: Patent airway with normal (patient baseline) respiratory exam Cardiovascular Function: Hemodynamically Stable Hydration Status: Adequately Hydrated Nausea & Vomiting: No Nausea or Vomiting Pain: Pain is Moderate or Severe (Continue to monitor, expect sore throat to improve with oral intake ) Postoperative Pain Management: Other Peripheral Nerve Block: Patient did not receive a nerve block
[2020-07-17 12:05] VITALS: BP 110/74; PULSE 98; RESP 16; TEMPC 36.4; O2SAT 99
[2020-07-17 12:07] VITALS: BP 110/74; PULSE 107; RESP 16; TEMP 36.4; O2SAT 96
[2020-07-17 12:30] VITALS: BP 106/68; PULSE 79; RESP 16; TEMP 36.2; O2SAT 100
--- NOTE | 2020-07-17 13:25 | W.PM.ENDDOP ---
Date of service: 07/17/20 Time of Service: 11:44 Endoscopy Report DATE OF PROCEDURE: 07/17/20 PRE-OP DIAGNOSIS: Rectal bleeding/ Anemia POST-OP DIAGNOSIS: other (Internal hemorrhoids) PROCEDURE: 1. EGd with biopsies 2. Colonoscopy with biopsies SURGEON: Mar Jaffe ANESTHESIA TYPE: General:No Airway (ASA 3/ Joanie Guardado, GERARD) ESTIMATED BLOOD LOSS: 3 PATHOLOGY: other (Gastric bx, GE junction bx) COMPLICATIONS: None DISPOSITION: floor
== END 2020-07-17 13:07 | disposition home or self-care (01) ==
LOC: SUR 10:11
PROVIDERS: PCP Family Medicine; Visit Provider Surgery
PROC: 0DJ68ZZ Inspection of Stomach, Via Natural or Artificial Opening Endoscopic (ICD-10-PCS; CPT 43235; principal; 2020-07-17 11:30)
DX: K29.50 Unspecified chronic gastritis without bleeding (principal); B96.81 Helicobacter pylori [H. pylori] as the cause of diseases classified elsewhere; J45.909 Unspecified asthma, uncomplicated; E03.9 Hypothyroidism, unspecified; E66.01 Morbid (severe) obesity due to excess calories
CPT/HCPCS: 43239; 81025; 88305; 88361; J2001

== ENCOUNTER 2020-08-14 14:56 | Outpatient (REF) | payer MEDICAID, SELFPAY ==
--- NOTE | 2020-08-14 13:45 | PAPFT_PTH ---
PATIENT: Tiny Cline LOC: [facility]#:[id number] AGE/SX: 24/F ROOM: RE08/14/[address]: Taylor Gutierrez : 1995 BED: DIS: 08/14/2020 SPEC #: [id number] RECD: 08/15/20 12:31 STATUS: DEMETRICE SEQUEIRA #: [id number] LUDY: 08/14/20 13:[address]: Taylor Gutierrez DEPT: [facility] Cytology RECD BY: Chacha Zimmerman ENTERED: 08/15/20 12:31 SP TYPE: PAPFT OTHR DR: Marva Hitchcock Tissues: 1 - CX/ENDOCX FOR PAP SMEARS Procedures: PAP THIN PREP/[facility] Screening Comments: [id number]
== END 2020-08-14 14:57 | disposition home or self-care (01) ==
LOC: NCHCN 14:56
PROVIDERS: PCP Family Medicine; Visit Provider Nurse Practitioner
DX: Z12.4 Encounter for screening for malignant neoplasm of cervix (principal); Z00.00 Encounter for general adult medical examination without abnormal findings
CPT/HCPCS: 88142

== ENCOUNTER 2020-12-10 03:51 | Outpatient (CLI) | payer MEDICAID, SELFPAY ==
[2020-12-10 15:44] LABS: FREE T4 1.24 ng/dL (0.76-1.46); TSH 5.86 uIU/mL (0.36-3.74)
== END 2020-12-10 03:52 | disposition home or self-care (01) ==
PROVIDERS: PCP Family Medicine
DX: E89.0 Postprocedural hypothyroidism (principal); Z92.3 Personal history of irradiation
CPT/HCPCS: 36415; 84439; 84443

== ENCOUNTER 2021-01-02 02:57 | Outpatient (CLI) | payer MEDICAID, SELFPAY ==
[2021-01-02 14:18] LABS: FREE T4 1.25 ng/dL (0.76-1.46); TSH 0.65 uIU/mL (0.36-3.74)
== END 2021-01-02 02:58 | disposition home or self-care (01) ==
LOC: LBO 02:57
PROVIDERS: PCP Family Medicine; Visit Provider Internal Medicine Endocrinology, Diabetes & Metabolism
DX: E89.0 Postprocedural hypothyroidism (principal); Z92.3 Personal history of irradiation
CPT/HCPCS: 36415; 84439; 84443

== ENCOUNTER 2021-01-20 13:25 | Emergency (ER) | payer MEDICAID, SELFPAY ==
[2021-01-20 13:35] VITALS: BP 117/54; PULSE 77; RESP 18; TEMP 36.5; O2SAT 100
[2021-01-20 14:36] LABS: Bilirubin Negative (Negative); Blood Negative (Negative); Clarity Sl Cloudy (Clear); Glucose Negative (Negative); Ketones Negative (Negative); Leukocyte Esterase Moderate (Negative); Nitrite Negative (Negative); Urobilinogen 0.2 EU/dL (Up TO 0.2)
[2021-01-20 14:42] LABS: Bacteria Moderate HPF (Negative); C & S Indicated? No/Sq. Contamination; Casts Negative LPF (Negative); Crystals Negative HPF (Negative); Epithelial Cells Many HPF (Negative); Mucus Negative (Negative); RBC 0-2 HPF (0-2)
--- NOTE | 2021-01-20 15:40 | ED.GENADUL_ITS ---
Discharge Plan Disposition Patient Disposition: HOME Condition: Stable Discharge Details Clinical Impression: Pyelonephritis Primary Care Provider: Marva Hitchcock ED Provider: Jaspreet Prado Home Meds and New Rx's Prescriptions: New cefpodoxime 200 mg tablet 200 mg PO Q12H Qty: 27 RF: 0 Continued PrePlus 27 mg iron- 1 mg tablet 1 tab PO DAILY Qty: 90 RF: 5 albuterol sulfate 90 mcg/actuation HFA aerosol inhaler 2 puff inhalation Q6H PRNRF: 0 valacyclovir [Valtrex] 500 mg Tablet 500 mg PO PRN PRNRF: 0 levothyroxine 150 mcg tablet 175 mcg PO DAILY RF: 0 Discontinued omeprazole 40 mg capsule,delayed release(DR/EC) 40 mg PO DAILY Qty: 30 RF: 0 Cholestyramine Light 4 gram powder 1 pwd PO QACHS Qty: 210 RF: 0 sucralfate [Carafate] 1 gram tablet 1 g PO TID Qty: 90 RF: 0 No Action metronidazole 500 mg tablet 500 mg PO BID 7 Days Qty: 14 RF: 0 Discharge Instructions Instructions: Urinary Tract Infection in (ED) Additional Instructions: 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 Please take full course of antibiotic as prescribed. Your first dose was given today in the emergency department. Your next dose should be tonight. Please drink plenty of fluids to stay hydrated. Return to the ER immediately immediately for any worsening or new concerning symptoms. Referrals: [facility] [Provider Group] Discharge Data Discharge Date/Time-TO BE ENTERED AT DEPARTURE: 01/20/21 16:05 Medical Decision Making 25-year-old female G2, P1 at 11 weeks here with left flank pain, increased urinary frequency and CVA tenderness. Abdominal exam is benign. Vital signs reassurance and no indication of sepsis. Concern for pyelonephritis. Patient is tolerating oral intake. Urinalysis reviewed: Moderate leukocyte Estrace, 10-20 WBCs, epithelial cells present. Given symptoms and UA findings, consider pyelonephritis. I will initiate treatment with cefpodoxime and have advised patient to followup with OB and to return to the ER for worsening or new concerning symptoms or if symptoms not improving as expected. Usua and customary discharge instructions were reviewed with the patient. HPI General Mode of arrival: ambulatory . Date/Time Provider Initiated Documentation: 01/20/21 14:24 . Limitations to Documentation: no limitations . Information obtained by: patient . HPI Narrative: 25-year-old G2, P1 at 11 weeks, here with left-sided flank pain that started earlier today and has persisted. She notes mild intermittent discomfort the past few days worse today. No modifiers. No dysuria or hematuria but does have some fullness suprapubic and increased urinary frequency. No abnormal vaginal discharge or bleeding. Patient denies trauma. Related Data Home Medications Medication Instructions Recorded Confirmed valacyclovir [Valtrex] 500 mg PO PRN PRN 09/18/19 01/27/21 albuterol sulfate 90 mcg/actuation 2 puff INHALATION Q6H PRN 11/28/19 01/27/21 aerosol inhaler vitamin with calcium 1 tab PO DAILY #90 tab 12/05/20 01/27/21 no.72-iron 27 mg-folic acid 1 mg tablet levothyroxine 150 mcg tablet 175 mcg PO DAILY tab 12/19/20 01/27/21 cefpodoxime 200 mg PO Q12H #27 tab 01/20/21 01/27/21 metronidazole 500 mg tablet 500 mg PO BID 7 Days #14 tab 01/28/21 Previous Rx's Medication Instructions Recorded vitamin with calcium 1 tab PO DAILY #90 tab 12/05/20 no.72-iron 27 mg-folic acid 1 mg tablet cefpodoxime 200 mg PO Q12H #27 tab 01/20/21 metronidazole 500 mg tablet 500 mg PO BID 7 Days #14 tab 01/28/21 Allergies Allergy/AdvReac Type Severity Reaction Status Date / Time No Known Allergies Allergy Unverified 01/20/21 15:38 General Stated Complaint: Abd Prob JEANETTE: 3 Review of Systems All systems reviewed & are unremarkable except as noted in HPI and below Constitutional Constitutional: Denies fever(s) Genitourinary Genitourinary: Reports as per HPI PFSH Active Problem List Fatty liver (Acute) Graves' disease (Acute) Vaginal discharge (Acute) Recurrent genital HSV (herpes simplex virus) infection (Acute) High BMI (Acute) (Acute) Morbidly obese (Acute) Hypothyroidism (Chronic) Medical History Acute cholecystitis ADHD (attention deficit hyperactivity disorder) evaluation Asthma Cholangitis due to bile duct calculus with obstruction Choledocholithiasis with obstruction Depression Epigastric abdominal pain History of radioactive iodine thyroid ablation age 14 Intractable abdominal pain Post depression Surgical History H/O endoscopic retrograde cholangiopancreatography (~06/17/20) History of cholecystectomy (~02/15/20) History of esophagogastroduodenoscopy (EGD) (~06/2020) Family History Father Yanira's disease Hypertension Diabetes Mother Hypertension Retinal disease Brother Autism Retinal disease Oppositional defiant behavior Brother Retinal disease Social History Smoking/Tobacco Use Status: Former Tobacco Use Quit Date: 03/01/18 Smoking risk assessment performed?: Yes Alcohol Intake: never Drug use: Never Substance use type: does not use Current gender identity: female Do you feel safe at home: Yes Do you feel safe in your relationship?: Yes Female Reproductive History Menstrual control method: none History History 2 Para 1 Hx # Term Pregnancies 1 Multiple births 0 Hx # Pregnancies 0 Ectopic pregnancies 0 AB induced 0 Hx Number of Living Children 1 AB spontaneous 0 Past Pregnancies Del. Date GA/Weeks # Outcome Route Wgt Sex Labor Lgth Anesthes ia [facility] 08/08/17 40 No Successful vaginal 3827.186 g Female [facility], vanishing twin Delivery Date: 08/08/17 Jey Glaser Kathleen Exam Const General: cooperative and no acute distress HENMT Mouth: moist mucous membranes Eyes Conjunctivae: normal conjunctivae Sclera: normal sclerae Resp Auscultation: clear to auscultation bilaterally, no rales, no rhonchi and no wheezes Cardio Rate: regular rate and not tachycardic Rhythm: regular rhythm GI Palpation: soft, not firm, no guarding, no masses, not rigid and nontender Back/Spine/Pelvis Back: CVA tenderness (mild left) Skin General skin exam: no rashes or lesions noted Neuro General: patient alert, patient awake and tone normal Extrem General: no edema Psych Appearance: grossly normal Mental Status: mental status grossly normal Course Vital Signs Vital signs: Vital Signs Temperature 36.5 C 01/20/21 13:35 Pulse 77 01/20/21 13:35 Respiratory Rate 18 01/20/21 13:35 Blood Pressure 117/54 L 01/20/21 13:35 Pulse Oximetry 100 01/20/21 13:35 Temperature 36.5 C 01/20/21 13:35 Temperature Source Skin 01/20/21 13:35 Pulse 77 01/20/21 13:35 Respiratory Rate 18 01/20/21 13:35 Respiratory Effort 01/20/21 13:40 Blood Pressure 117/54 L 01/20/21 13:35 Blood Pressure Position Sitting 01/20/21 13:35 Pulse Oximetry 100 01/20/21 13:35 Oxygen Delivery Method Room Air 01/20/21 13:35 Oxygen Flow Rate 0 01/20/21 13:35 Pain Level 7 01/20/21 13:35 Lab/Test Results Lab/Test Results: Laboratory Tests Range/Units 01/20/21 14:10 Urine Color (Yellow) Yellow Urine Clarity (Clear) Sl Cloudy Urine pH (5-8) 6.0 Ur Specific [place] (1.005-1.025) 1.020 Urine Protein (Negative) mg/dL Negative Urine Ketones (Negative) mg/dL Negative Urine Blood (Negative) Negative Urine Nitrite (Negative) Negative Urine Bilirubin (Negative) Negative Urine Urobilinogen (Up TO 0.2) EU/dL 0.2 Ur Leukocyte Esterase (Negative) Moderate H Urine RBC (0-2) HPF 0-2 Urine WBC (0-5) HPF 10-20 H Ur Epithelial Cells (Negative) HPF Many Urine Crystals (Negative) HPF Negative Urine Bacteria (Negative) HPF Moderate Urine Casts (Negative) LPF Negative Urine Mucus (Negative) Negative Ur Culture Indicated? No/Sq. Contamination Urine Glucose (Negative) mg/dL Negative
[2021-01-20] MEDS: Cefpodoxime 200 MG TAB PO (16:00)
[2021-01-20 16:05] VITALS: BP 131/85; PULSE 78; TEMP 36.4; O2SAT 99
== END 2021-01-20 16:05 | disposition home or self-care (01) ==
PROVIDERS: Student in an Organized Health Care Education/Training Program; Emergency Provider Student in an Organized Health Care Education/Training Program; PCP Family Medicine
DX: O23.01 Infections of kidney in pregnancy, first trimester (principal); Z3A.11 11 weeks gestation of pregnancy
CPT/HCPCS: 99283; 81003; 81015

== ENCOUNTER 2021-01-27 02:59 | Outpatient (CLI) | payer MEDICAID, SELFPAY ==
[2021-01-27 15:55] LABS: Kit/Specimen SENT
[2021-01-27 15:59] LABS: Abs Immature Grans 0.02 10^3/uL (0.0-0.06); Absolute Basophil Count 0.03 10^3/uL (0.0-0.2); Absolute Eosinophil Count 0.11 10^3/uL (0.0-0.7); Absolute Lymphocyte Count 1.87 10^3/uL (1.2-3.4); Absolute Monocyte Count 0.46 10^3/uL (0.1-0.8); Basophils % 0.4; Eosinophils % 1.3; HCT 37.9 % (36.0-46.0); HGB 12.9 g/dL (11.2-15.7); Immature Grans % 0.2; MCH 29.5 pg (27.0-33.0); MCV 86.7 fL (80-95); MPV 9.5 fL (8.0-11.0); Monocytes % 5.4; Neutrophils % 70.7; Nucleated RBC 0 %; Platelet Count 319 10^3/uL (130-400); RBC 4.37 10^6/uL (3.93-5.22); RDW-SD 40.8 fL; WBC 8.49 10^3/uL (4.4-10.8)
[2021-01-27 16:20] LABS: Glucose,1 Hr (Glucola) 123 mg/dL (80-140)
[2021-01-27 17:40] LABS: FREE T4 1.09 ng/dL (0.76-1.46); TSH 0.82 uIU/mL (0.36-3.74)
[2021-01-27 18:13] LABS: *AMPHETAMINES SCREEN URINE Negative (Negative); *BARBITURATES SCREEN URINE Negative (Negative); *BENZODIAZEPINES SCREEN URINE Negative (Negative); Cannabinoids THC Negative (Negative); Cocaine Screen,Urine Negative (Negative); METHADONE URINE SCREEN Negative (Negative); OPIATES URINE SCREEN Negative (Negative)
[2021-01-27 18:18] LABS: Tricyclic Antidepressants Negative (Negative)
[2021-01-28 10:20] LABS: Rubella IgG Ab (UVM) Positive (See Note); Varicella IgG Antibody Positive (See Note)
[2021-01-28 10:39] LABS: Hepatitis C Ab w Rflx HCV PCR Negative (Negative)
[2021-01-28 11:05] LABS: HIV-1/2 Ag & Ab Screen Negative (Negative)
[2021-01-28 12:08] LABS: Hepatitis B Surface Ag Negative (Negative)
[2021-01-28 16:36] LABS: Syphilis Total Ab w/Reflex Nonreactive (Nonreactive)
[2021-01-29 14:13] LABS: Chlamydia Result Negative (Negative); GC Result Negative (Negative)
[2021-01-30 10:01] LABS: Buprenorphine Negative ng/mL (Cutoff: 5.0); Norbuprenorphine Negative ng/mL (Cutoff: 2.5)
== END 2021-01-27 03:00 | disposition home or self-care (01) ==
LOC: LBO 02:59
PROVIDERS: Advanced Practice Midwife; PCP Family Medicine; Visit Provider Advanced Practice Midwife
DX: Z34.82 Encounter for supervision of other normal pregnancy, second trimester (principal)
CPT/HCPCS: 36415; 80307; 82950; 86787; 86803; 86850; 86900; 86901; 87340; 87389; 87491; 87591; 84439; 84443; 85025; 86762; 86780; 87086; 87480; 87510; 87660

== ENCOUNTER 2021-01-31 01:26 | Outpatient (CLI) | payer MEDICAID, SELFPAY ==
--- NOTE | 2021-01-31 07:30 | DI.US_ITS ---
Exam(s) US RENAL EXAM: US RENAL CLINICAL HISTORY: LT FLANK PAIN,R10.9,. TECHNIQUE: Bright scale, color and spectral Doppler were used. COMPARISON: US US ABDOMEN LIMITED from 06/14/2020 FINDINGS: Renal size in cm: Right: 11.7. Left: 12.7. Echogenicity: Normal. Hydronephrosis: No. Cyst or mass: No. Nephrolithiasis: No. Other findings: Incidental note is made of a fatty liver. Bladder:Bladder is incompletely filled but no gross abnormality is identified. Ureteral jets: Right: Visualized and unremarkable. Left: Visualized and unremarkable. Prevoid vol:15 cc Postvoid vol:0 cc Renal color flow: Symmetric and within normal limits. IMPRESSION: 1. No evidence of nephrolithiasis or hydronephrosis. 2. Hepatic steatosis. DATA REPOSITORY:
== END 2021-01-31 01:46 ==
PROVIDERS: PCP Family Medicine; Visit Provider Advanced Practice Midwife
DX: R10.9 Unspecified abdominal pain (principal); K76.0 Fatty (change of) liver, not elsewhere classified
CPT/HCPCS: 76770

== ENCOUNTER 2021-02-06 02:46 | Outpatient (CLI) | payer MEDICAID, SELFPAY ==
[2021-02-06 14:14] LABS: Kit/Specimen SENT
== END 2021-02-06 02:47 | disposition home or self-care (01) ==
LOC: LBO 02:46
PROVIDERS: PCP Family Medicine; Visit Provider Advanced Practice Midwife
DX: Z34.92 Encounter for supervision of normal pregnancy, unspecified, second trimester (principal)
CPT/HCPCS: 36415

== ENCOUNTER 2021-03-07 03:53 | Outpatient (CLI) | payer MEDICAID, SELFPAY ==
[2021-03-07 09:20] LABS: ALT 26 U/L (14-59); AST 15 U/L (15-37); Alkaline Phosphatase 76 U/L (46-116); Bilirubin, Direct 0.1 mg/dL (0.0-0.2); Bilirubin, Total 0.3 mg/dL (0.2-1.0); Total Protein 6.7 g/dL (6.4-8.2)
[2021-03-10 11:44] LABS: AFP 21.6 ng/mL; Calculated age at EDD 27 years; Cigarette smoking status non-Smoker; GA used in risk estimate Scan estimate; IVF Pregnancy No; Initial or repeat testing Initial testing; Insulin dependent diabetes No; Maternal Weight 280 lbs; Number of Fetuses 1; Physician Phone Number 802-748-7300; Prev Pregnancy w/NTD No; RECOMMENDED FOLLOW UP None.; Results Summary Normal risk
== END 2021-03-07 03:54 | disposition home or self-care (01) ==
LOC: LBO 03:53
PROVIDERS: Advanced Practice Midwife; PCP Family Medicine; Visit Provider Advanced Practice Midwife
DX: E03.9 Hypothyroidism, unspecified (principal); Z34.91 Encounter for supervision of normal pregnancy, unspecified, first trimester; R74.8 Abnormal levels of other serum enzymes
CPT/HCPCS: 36415; 80076; 82105; 84443

== ENCOUNTER 2021-04-04 01:40 | Outpatient (CLI) | payer MEDICAID, SELFPAY ==
[2021-04-04 14:36] LABS: FREE T4 1.11 ng/dL (0.76-1.46)
[2021-04-04 18:16] LABS: Kit/Specimen SENT
[2021-04-10 17:14] LABS: Thyroid Stimulating Immunoglob <1.0 TSI index (<=1.3)
== END 2021-04-04 01:41 | disposition home or self-care (01) ==
LOC: LBO 01:40
PROVIDERS: Advanced Practice Midwife; PCP Family Medicine; Visit Provider Internal Medicine Endocrinology, Diabetes & Metabolism
DX: E05.00 Thyrotoxicosis with diffuse goiter without thyrotoxic crisis or storm (principal)
CPT/HCPCS: 84439; 84445

== ENCOUNTER 2021-04-09 00:12 | Outpatient (CLI) | payer MEDICAID, SELFPAY ==
--- NOTE | 2021-04-09 06:45 | DI.US_ITS ---
Exam(s) US RENAL EXAM: US RENAL CLINICAL HISTORY: right flank/mid abd painz34.90,r10.9 TECHNIQUE: Ultrasound of both kidneys performed using standard protocol. COMPARISON: CT CT CHEST PE ABD PELVIS W from 05/25/2020 MR MR ABDOMEN WO from 06/14/2020 US US RENAL from 01/31/2021 FINDINGS: RIGHT KIDNEY: Measures 11.1 cm in length. No cysts evident. Normal cortical thickness and corticomedullary differen tiation .No solid masses No intrarenal calculi nor hydronephrosis. LEFT KIDNEY: Measures 10 point cm in length. No cysts evident. Normal cortical thickness and corticomedullary dif ferentiaion. No solids masses. No intrarenal calculi nor hydonephrosis. URINARY BLADDER: Prevoid volume is 170 cc Postvoid volume is 0 cc No evidence of bladder mass nor diverticuli. Ureterovesical jets: Both identified and appear symmetrical IMPRESSION: 1. No significant ultrasound findings in the kidneys. 2. No significant postvoid residual urine in the bladder. No focal bladder findings. DATA REPOSITORY:
== END 2021-04-09 00:32 ==
PROVIDERS: PCP Family Medicine; Visit Provider Advanced Practice Midwife
DX: R10.9 Unspecified abdominal pain (principal); Z34.92 Encounter for supervision of normal pregnancy, unspecified, second trimester
CPT/HCPCS: 76770

== ENCOUNTER 2021-04-11 20:36 | Emergency (ER) | payer MEDICAID, SELFPAY ==
[2021-04-11 20:55] VITALS: BP 136/79; PULSE 88; RESP 14; TEMP 37.6; O2SAT 98
[2021-04-11 21:50] LABS: Bilirubin Negative (Negative); Blood Negative (Negative); Clarity Sl Cloudy (Clear); Glucose Negative (Negative); Ketones Negative (Negative); Leukocyte Esterase Negative (Negative); Nitrite Negative (Negative); Specific Gravity >= 1.030 (1.005-1.025); Urobilinogen 0.2 EU/dL (Up TO 0.2); pH 5.5 (5-8)
[2021-04-11 21:59] LABS: Abs Immature Grans 0.05 10^3/uL (0.0-0.06); Absolute Basophil Count 0.03 10^3/uL (0.0-0.2); Absolute Eosinophil Count 0.15 10^3/uL (0.0-0.7); Absolute Lymphocyte Count 2.15 10^3/uL (1.2-3.4); Absolute Neutrophil Count 6.39 10^3/uL (1.2-6.7); Basophils % 0.3; Eosinophils % 1.6; HCT 34.5 % (36.0-46.0); HGB 11.4 g/dL (11.2-15.7); Immature Grans % 0.5; Lymphocytes % 22.9; MCH 29.1 pg (27.0-33.0); MPV 9.5 fL (8.0-11.0); Monocytes % 6.4; Neutrophils % 68.3; Nucleated RBC 0 %; Platelet Count 338 10^3/uL (130-400); RBC 3.92 10^6/uL (3.93-5.22); RDW 14.1 % (11.7-14.6); RDW-SD 44.6 fL; WBC 9.37 10^3/uL (4.4-10.8)
[2021-04-11] MEDS: Acetaminophen 325 MG TAB 650 MG PO (22:00)
[2021-04-11] MEDS: Normal Saline 1,000 ML 1000 ML IV (22:00)
[2021-04-11 22:13] LABS: ALT 24 U/L (14-59); AST 13 U/L (15-37); Albumin 2.9 g/dL (3.4-5.0); Alkaline Phosphatase 85 U/L (46-116); Anion Gap 11.5 mmol/L (3-11); BUN 7 mg/dL (7-18); Bilirubin, Total 0.2 mg/dL (0.2-1.0); C-Reactive Protein 0.53 mg/dL (0.0-0.3); CO2 21.5 mmol/L (21.0-32.0); CREATININE 0.6 mg/dL (0.55-1.02); Calcium 9.2 mg/dL (8.5-10.1); Chloride 102 mmol/L (98-107); Glucose 128 mg/dL (74-106); Potassium 3.5 mmol/L (3.5-5.1); Sodium 135 mmol/L (136-145); Total Protein 7.2 g/dL (6.4-8.2)
[2021-04-11] MEDS: Ondansetron 4 MG/2 ML VIAL IVP (22:32)
--- NOTE | 2021-04-11 22:34 | ED.GENADUL_ITS ---
Discharge Plan Disposition Patient Disposition: [facility] Discharge Details Clinical Impression: Primary Care Provider: Marva Hitchcock ED Provider: Chacha Juan Home Meds and New Rx's Prescriptions: Continued PrePlus 27 mg iron- 1 mg tablet 1 tab PO DAILY Qty: 90 5RF Rx Instructions: give with food (meal/snack) albuterol sulfate 90 mcg/actuation HFA aerosol inhaler 2 puff inhalation Q6H PRN0RF pantoprazole [Protonix] 40 mg tablet,delayed release (DR/EC) 40 mg PO DAILY Qty: 30 6RF valacyclovir [Valtrex] 1 gram tablet 1,000 mg PO DAILY Qty: 30 3RF valacyclovir [Valtrex] 500 mg Tablet 500 mg PO PRN PRN0RF levothyroxine 150 mcg tablet 175 mcg PO DAILY 0RF Discharge Data Discharge Date/Time-TO BE ENTERED AT DEPARTURE: 04/12/21 03:40 Medical Decision Making Patient is a CBC, CMP, and CRP that are unremarkable She is 22 weeks and unfortunately do not have MRI available to assess her appendix I spoke with Dr. Cespedes, on-call rivet passer and her recommendation is that she be transferred to facility that has ability to exclude surgical etiology of patient's symptoms Patient has been given Tylenol, Zofran, and 1 L of normal saline, she is resting comfortably in room at time of reassessment Her heart rate is 148 She denies any vaginal bleeding Her vitals are otherwise stable at this time Patient is complaining of persistent pain despite Tylenol She has asked for something additionally for pain, I talked about the benefit of opiate analgesia and she has accepted these risks I did attempt to call [facility] in hopes of transferring the patient for further assessment and diagnostic imaging, they have declined the capacity to accept this patient to the emergency department I therefore called [facility] in an attempt to transfer patient for further evaluation and they have accepted this patient in transfer Dr. Juarez has accepted the patient to [facility] in the emergency room, we are pending basic transport at this time, unfortunately there is a delay secondary to lack of transport resources, this is at 12:12 AM She is stable at time of reassessment Medical Records Medical records reviewed: Yes I reviewed the patient's medical records. Lab Data Lab results reviewed: Yes I reviewed the patient's lab results. ECG Data Prior ECG tracings: available for review HPI General Mode of arrival: ambulatory . Date/Time Provider Initiated Documentation: 04/11/21 20:58 . Limitations to Documentation: no limitations . Information obtained by: patient . HPI Narrative: This 25-year-old female with history of being 22 weeks presents with right lower quadrant pain which started approximately an hour prior to arrival. She denies any chest pain or shortness of breath. She denies any dizziness or weakness. She is been nauseous without vomiting. She denies any vaginal bleeding. Denies history of similar pain in the past. She has had an uneventful per patient. Denies diarrhea. Related Data Home Medications Medication Instructions Recorded Confirmed valacyclovir 500 mg tablet 500 mg PO PRN PRN 09/18/19 04/12/21 (Valtrex) albuterol sulfate 90 mcg/actuation 2 puff INHALATION Q6H PRN 11/28/19 04/12/21 aerosol inhaler vitamin with calcium 1 tab PO DAILY #90 tab 12/05/20 04/12/21 no.72-iron 27 mg-folic acid 1 mg tablet (PrePlus) levothyroxine 150 mcg tablet 175 mcg PO DAILY tab 12/19/20 04/12/21 pantoprazole 40 mg tablet,delayed 40 mg PO DAILY #30 tab 02/12/21 04/12/21 release (Protonix) valacyclovir 1 gram tablet 1,000 mg PO DAILY #30 tab 03/31/21 04/12/21 (Valtrex) Previous Rx's Medication Instructions Recorded vitamin with calcium 1 tab PO DAILY #90 tab 12/05/20 no.72-iron 27 mg-folic acid 1 mg tablet (PrePlus) pantoprazole 40 mg tablet,delayed 40 mg PO DAILY #30 tab 02/12/21 release (Protonix) valacyclovir 1 gram tablet 1,000 mg PO DAILY #30 tab 03/31/21 (Valtrex) Allergies Allergy/AdvReac Type Severity Reaction Status Date / Time No Known Allergies Allergy Unverified 04/12/21 03:36 General JEANETTE: 3 Review of Systems All systems reviewed & are unremarkable except as noted in HPI and below PFSH All Active Problems (Updated 04/12/21 @ 00:15 by IBTEH Esquivel) BMI 50.0-59.9, adult (Acute) Elevated liver enzymes (Acute) Fatty liver (Acute) incidental finding, patient reports she was heavy drinker in past and is aware of this finding Graves' disease (Acute) Recurrent genital HSV (herpes simplex virus) infection (Acute) (Acute) Hypothyroidism (Chronic) see Carlos Nuñez MD, diagnosed age 12, graves disease Medical History (Updated 04/12/21 @ 00:15 by IBETH Esquivel) Acute cholecystitis ADHD (attention deficit hyperactivity disorder) evaluation Asthma Cholangitis due to bile duct calculus with obstruction Choledocholithiasis with obstruction Depression Epigastric abdominal pain Heavy alcohol use ages [age], High BMI 49 History of radioactive iodine thyroid ablation age 14 Intractable abdominal pain Morbidly obese Post depression Right flank pain renal scan is nml, problem resolved Surgical History H/O endoscopic retrograde cholangiopancreatography (~06/17/20) History of cholecystectomy (~02/15/20) History of esophagogastroduodenoscopy (EGD) (~06/2020) Family History (Updated 03/31/21 @ 13:04 by Ansley Khanna CNM) Father Yanira's disease Hypertension Diabetes Mother Hypertension Retinal disease Kidney stones Brother Autism Retinal disease Oppositional defiant behavior Brother Retinal disease Social History (Updated 02/12/21 @ 15:06 by Ansley Khanna CNM) Smoking/Tobacco Use Status: Former Tobacco Use Quit Date: 03/01/18 Smoking risk assessment performed?: Yes Alcohol Intake: former Details: heavy drinking age [age]. Denies use now. Drug use: Never Substance use type: does not use Current gender identity: female Do you feel safe at home: Yes Do you feel safe in your relationship?: Yes Female Reproductive History Menstrual control method: none History History 2 Para 1 Hx # Term Pregnancies 1 Multiple births 0 Hx # Pregnancies 0 Ectopic pregnancies 0 AB induced 0 Hx Number of Living Children 1 AB spontaneous 0 Past Pregnancies Del. Date GA/Weeks # Outcome Route Wgt Sex Labor Lgth Anesthes ia Location Prov Complic 08/08/17 40 No Successful vaginal 3827.186 g Female 10 [facility], v anishing twin Delivery Date: 08/08/17 Last Updated by: Ansley Mulkern, CNM Jailyn, Exam Const General: cooperative, comfortable and no acute distress Orientation: alert and oriented x3 HENMT Other: Moist mucous membrane Eyes Pupils: PERRL Chest Chest: normal inspection of the chest Resp Effort & Inspection: normal respiratory effort Auscultation: clear to auscultation bilaterally Cardio Rate: regular rate Rhythm: regular rhythm GI Other: RLQ pain Skin General skin exam: no rashes or lesions noted Neuro General: patient alert and patient oriented x3 Course Lab/Test Results Lab/Test Results: Laboratory Tests Range/Units 04/11/21 04/11/21 04/11/21 21:35 21:55 21:55 WBC (4.4-10.8) 10^3/uL 9.37 RBC (3.93-5.22) 10^6/uL 3.92 L Hgb (11.2-15.7) g/dL 11.4 Hct (36.0-46.0) % 34.5 L MCV (80-95) fL 88.0 MCH (27.0-33.0) pg 29.1 MCHC (32.0-36.0) % 33.0 RDW (11.7-14.6) % 14.1 Plt Count (130-400) 10^3/uL 338 MPV (8.0-11.0) fL 9.5 Immature Gran % 0.5 Neutrophils % 68.3 Lymphocytes % 22.9 Monocytes % 6.4 Eosinophils % 1.6 Basophils % 0.3 Nucleated RBC % % 0 Absolute Neutrophils (1.2-6.7) 10^3/uL 6.39 Absolute Lymphocytes (1.2-3.4) 10^3/uL 2.15 Absolute Monocytes (0.1-0.8) 10^3/uL 0.60 Absolute Eosinophils (0.0-0.7) 10^3/uL 0.15 Absolute Basophils (0.0-0.2) 10^3/uL 0.03 Sodium (136-145) mmol/L 135 L Potassium (3.5-5.1) mmol/L 3.5 Chloride (98-107) mmol/L 102 Carbon Dioxide (21.0-32.0) mmol/L 21.5 Anion Gap (3-11) mmol/L 11.5 H BUN (7-18) mg/dL 7 Creatinine (0.55-1.02) mg/dL 0.6 Estimated GFR/1.73 m2 (mL/min/1.73m2) >= 60.00 Glucose (74-106) mg/dL 128 H Calcium (8.5-10.1) mg/dL 9.2 Total Bilirubin (0.2-1.0) mg/dL 0.2 AST (15-37) U/L 13 L ALT (14-59) U/L 24 Alkaline Phosphatase (46-116) U/L 85 C-Reactive Protein (0.0-0.3) mg/dL 0.53 H Total Protein (6.4-8.2) g/dL 7.2 Albumin (3.4-5.0) g/dL 2.9 L Urine Color (Yellow) Yellow Urine Clarity (Clear) Sl Cloudy Urine pH (5-8) 5.5 Ur Specific [place] (1.005-1.025) >= 1.030 H Urine Protein (Negative) mg/dL Negative Urine Ketones (Negative) mg/dL Negative Urine Blood (Negative) Negative Urine Nitrite (Negative) Negative Urine Bilirubin (Negative) Negative Urine Urobilinogen (Up TO 0.2) EU/dL 0.2 Ur Leukocyte Esterase (Negative) Negative Urine Glucose (Negative) mg/dL Negative
[2021-04-12 00:10] VITALS: BP 119/76; PULSE 76; RESP 16; TEMP 36.6; O2SAT 97
[2021-04-12] MEDS: MORPHine 4 MG/ML SYR IVP (00:15)
[2021-04-12 03:30] VITALS: BP 114/77; PULSE 78; RESP 16; O2SAT 98
--- NOTE | 2021-04-28 13:36 | ANES.CON_ITS ---
General Date of Service Date of Service: 04/28/21 Reason for Consult Requesting Provider: Sarah Doherty How Consult Conducted:: Seen in Office Reason for Consult:: Elevated BMI Consult Recommendation after Review:: Patient was evaluated for anesthesia services here at [facility] for upcoming [facility] 08/13/2021: Patient was educated and informed that due to elevated BMI of 50.3 today, the patient would be better served at a tertiary center for delivery. Patient verbalizes understanding and CNM services have been informed. Height: 5 ft 3 in Weight: 123.831 kg Body Mass Index (BMI): 48.3 Meds Allergies and Home Medications Allergies Allergy/AdvReac Type Severity Reaction Status Date / Time No Known Allergies Allergy Unverified 04/28/21 12:58 Home Medication Medication Instructions Recorded valacyclovir 500 mg tablet 500 mg PO PRN PRN 09/18/19 (Valtrex) albuterol sulfate 90 mcg/actuation 2 puff INHALATION Q6H PRN 11/28/19 aerosol inhaler vitamin with calcium 1 tab PO DAILY #90 tab 12/05/20 no.72-iron 27 mg-folic acid 1 mg tablet (PrePlus) levothyroxine 150 mcg tablet 175 mcg PO DAILY tab 12/19/20 pantoprazole 40 mg tablet,delayed 40 mg PO DAILY #30 tab 02/12/21 release (Protonix) valacyclovir 1 gram tablet 1,000 mg PO DAILY #30 tab 03/31/21 (Valtrex) PFSH Active Problems Active Problems: Problem Status Onset Code BMI 50.0-59.9, adult Z68.43 Elevated liver enzymes R74.8 Fatty liver K76.0 Graves' disease E05.00 Recurrent genital HSV (herpes simplex virus) infection A60.00 Z34.90 Hypothyroidism E03.9 Medical History Medical History (Updated 04/12/21 @ 00:15 by IBETH Esquivel) Acute cholecystitis ADHD (attention deficit hyperactivity disorder) evaluation Asthma Cholangitis due to bile duct calculus with obstruction Choledocholithiasis with obstruction Depression Epigastric abdominal pain Heavy alcohol use ages 14-21, High BMI 49 History of radioactive iodine thyroid ablation age 14 Intractable abdominal pain Morbidly obese Post depression Right flank pain renal scan is nml, problem resolved Surgical History Surgical History H/O endoscopic retrograde cholangiopancreatography (~06/17/20) History of cholecystectomy (~02/15/20) History of esophagogastroduodenoscopy (EGD) (~06/2020) Tobacco Smoking/Tobacco Use Status: Former Tobacco Use Alcohol Alcohol Intake: former Details: heavy drinking age [age]. Denies use now. Substance Use Substance use: Never Substance use type: does not use Prental History History 2 Para 1 Hx # Term Pregnancies 1 Multiple births 0 Hx # Pregnancies 0 Ectopic pregnancies 0 AB induced 0 Hx Number of Living Children 1 AB spontaneous 0 Past Pregnancies Del. Date GA/Weeks # Outcome Route Wgt Sex Labor Lgth Anesthes ia Location Prov Complic 08/08/17 40 No Successful vaginal 3827.186 g Female 12 [facility] [place], vanishing twin Delivery Date: 08/08/17 Last Updated by: ROSENDO Corey, Vital Signs & Lab Results Vital Signs Most Recent Vital Signs: Most Recent Vital Signs Temp Pulse Resp BP Pulse Ox 36.6 C 78 16 114/77 98 04/12/21 00:10 04/12/21 03:30 04/12/21 03:30 04/12/21 03:30 04/12/21 03:30 Point of Care Results Nursing Point of Care Results: No Data to Display Lab Results Result Diagrams: 04/11/21 21:55 04/11/21 21:55 Blood Type / Crossmatch: No Data to Display Complete Blood Count: White Blood Count 9.37 10^3/uL (4.4-10.8) 04/11/21 21:55 04/11/21 Red Blood Count 3.92 10^6/uL (3.93-5.22) L 04/11/21 21:55 04/11/21 Hemoglobin 11.4 g/dL (11.2-15.7) 04/11/21 21:55 04/11/21 Hematocrit 34.5 % (36.0-46.0) L 04/11/21 21:55 04/11/21 Platelet Count 338 10^3/uL (130-400) 04/11/21 21:55 04/11/21 Complete Metabolic Panel: Sodium Level 135 mmol/L (136-145) L 04/11/21 21:55 04/11/21 Potassium Level 3.5 mmol/L (3.5-5.1) 04/11/21 21:55 04/11/21 Chloride Level 102 mmol/L (98-107) 04/11/21 21:55 04/11/21 Carbon Dioxide Level 21.5 mmol/L (21.0-32.0) 04/11/21 21:55 04/11/21 Blood Urea Nitrogen 7 mg/dL (7-18) 04/11/21 21:55 04/11/21 Creatinine 0.6 mg/dL (0.55-1.02) 04/11/21 21:55 04/11/21 Estimated GFR/1.73 m2 >= 60.00 (mL/min/1.73m2) 04/11/21 21:55 04/11/21 Calcium Level 9.2 mg/dL (8.5-10.1) 04/11/21 21:04/11/21 Albumin 2.9 g/dL (3.4-5.0) L 04/11/21 21:55 04/11/21 Glucose Level 128 mg/dL (74-106) H 04/11/21 21:55 04/11/21 C-Reactive Protein 0.53 mg/dL (0.0-0.3) H 04/11/21 21:55 04/11/21 Liver Function Panel: Alanine Aminotransferase (ALT/SGPT) 24 U/L (14-59) 04/11/21 21:55 04/11/21 Aspartate Amino Transf (AST/SGOT) 13 U/L (15-37) L 04/11/21 21:55 04/11/21 Coagulation Panel: No Data to Display Cardiac Panel: No Data to Display Arterial Blood Gas: No Data to Display Venous Blood Gas: No Data to Display Pancreas Panel: No Data to Display Thyroid Panel: 2 No Data to Display Infectious Disease: No Data to Display Blood Cultures: No Data to Display Toxicology Panel: No Data to Display Panel: No Data to Display Imaging and Studies Imaging and Studies EKG Summary: DATE/TIME OF SERVICE: 05/25/20 1535 Conclusion Sinus rhythm...normal P axis, V-rate 60- 99 Anesthesia Assessment and Plan Anesthesia History Personal History: No History of Anesthesia Complications Family History: No Family History of Anesthesia Complications Airway Exam Known Difficult Airway: No Mallampati Class: 2 Mouth Opening: Normal (> 3cm) Thyromental Distance: Greater than 3 cm Neck Range of Motion: Full ROM Neck Circumference: Thick Teeth Condition: Normal Dentition
[2021-04-28 13:41] VITALS: BMI 48.3
== END 2021-04-12 03:40 ==
PROVIDERS: Emergency Provider Physician Assistant; PCP Family Medicine
DX: O26.892 Other specified pregnancy related conditions, second trimester (principal); R10.31 Right lower quadrant pain; R11.0 Nausea; Z3A.22 22 weeks gestation of pregnancy
CPT/HCPCS: 36415; 80053; 96361; 96374; 96375; 99285; 81003; 85025; 86140; 99284; J2270; J2405

== ENCOUNTER 2021-04-30 12:30 | Outpatient (CLI) | payer MEDICAID, SELFPAY ==
[2021-04-30 15:10] LABS: FREE T4 1.03 ng/dL (0.76-1.46); TSH 2.46 uIU/mL (0.36-3.74)
== END 2021-04-30 12:31 | disposition home or self-care (01) ==
PROVIDERS: PCP Family Medicine; Visit Provider Internal Medicine Endocrinology, Diabetes & Metabolism
DX: E89.0 Postprocedural hypothyroidism (principal); Z92.3 Personal history of irradiation
CPT/HCPCS: 36415; 84439; 84443

== ENCOUNTER 2021-05-12 01:29 | Outpatient (CLI) | payer MEDICAID, SELFPAY ==
[2021-05-12 12:31] LABS: HCT 34.3 % (36.0-46.0); MCH 28.9 pg (27.0-33.0); MCHC 32.1 % (32.0-36.0); MPV 9.1 fL (8.0-11.0); Platelet Count 310 10^3/uL (130-400); RBC 3.81 10^6/uL (3.93-5.22); RDW 14.6 % (11.7-14.6); RDW-SD 47.3 fL; WBC 9.34 10^3/uL (4.4-10.8)
[2021-05-12 12:49] LABS: Glucose,1 Hr (Glucola) 152 mg/dL (80-140)
[2021-05-16 16:55] LABS: Thyroid Stimulating Immunoglob <1.0 TSI index (<=1.3)
== END 2021-05-12 01:30 | disposition home or self-care (01) ==
LOC: LBO 01:30
PROVIDERS: PCP Family Medicine; Visit Provider Advanced Practice Midwife
DX: Z34.92 Encounter for supervision of normal pregnancy, unspecified, second trimester (principal)
CPT/HCPCS: 36415; 82950; 85027; 84445

== ENCOUNTER 2021-05-22 03:34 | Outpatient (CLI) | payer MEDICAID, SELFPAY ==
[2021-05-22 08:56] LABS: Glucose 1 Hour 203 mg/dL
[2021-05-22 10:50] LABS: Glucose 3 Hour 172 mg/dL
== END 2021-05-22 03:35 | disposition home or self-care (01) ==
LOC: LBO 03:34
PROVIDERS: PCP Family Medicine; Visit Provider Advanced Practice Midwife
DX: Z34.92 Encounter for supervision of normal pregnancy, unspecified, second trimester (principal)
CPT/HCPCS: 36415; 82951

== ENCOUNTER 2021-05-28 03:14 | Outpatient (CLI) | payer MEDICAID, SELFPAY ==
[2021-05-28 14:21] LABS: FREE T4 0.97 ng/dL (0.76-1.46); TSH 4.65 uIU/mL (0.36-3.74)
== END 2021-05-28 03:15 | disposition home or self-care (01) ==
LOC: LBO 03:14
PROVIDERS: PCP Family Medicine; Visit Provider Internal Medicine Endocrinology, Diabetes & Metabolism
DX: E89.0 Postprocedural hypothyroidism (principal); Z92.3 Personal history of irradiation
CPT/HCPCS: 36415; 84439; 84443

== ENCOUNTER 2021-07-10 16:31 | Emergency (ER) | payer MEDICAID, SELFPAY ==
[2021-07-10 16:33] VITALS: BP 132/85; PULSE 113; RESP 16; TEMP 36.4; O2SAT 97
[2021-07-10 17:51] VITALS: BP 135/82; PULSE 86; TEMP 36.7
[2021-07-10 18:35] VITALS: BP 135/82; PULSE 86; RESP 18; TEMP 36.7
--- NOTE | 2021-07-10 18:50 | PDOC.NST_ITS ---
Date of service: 07/10/21 Time of Service: 17:50 NST Evaluation Reason for NST Reasons for Nonstress Test: LABOR Gestational Age Gestational Age in Weeks and Days: 35 Weeks and 2Days Test and Monitor Explained Test/Monitor Explained: Test Explained, Monitor Explained and Patient Verbalized Understanding Vital Signs Blood Pressure: 135/82 Pulse: 86 Temperature: 98.1 F NST Information Time on Monitor: 17:46 Date off Monitor: 07/10/21 Time off Monitor: 18:45 NST Interventions: None Contraction Frequency: none NST Evaluation Patient States Movement: Present FHR Baseline: 135 Variability: Moderate 6-25 bpm Accelerations: 15x15 Decelerations: None NST Results: Reactive Note NST Note Note: Patient presented to the center after initial evaluation the emergency department at [facility]. She states that she has had somatic complaints beginning yesterday and throughout the day today. She describes pain in her left hip and right inguinal area. No specific complaints of contractions. No vaginal bleeding no increased vaginal discharge. Patient been followed at the [facility] and has had course remarkable for starting NPH approximately 16 units at bedtime for gestational diabetes. She reports satisfactory glycemic control. She has an appointment next week for group B strep test. Vaginal exam was performed: Cervix closed soft 25% effaced posterior vertex -2 station the lower uterine segment is not well developed. fibronectin was performed and was negative. Pt was discharged to home with instructions to keep alert appointments at [facility] and follow-up at center as needed. She was counseled regarding signs and symptoms of labor. NST Reviewed and Verified by: Namita Stockton
[2021-07-10 18:57] VITALS: BP 135/82; PULSE 86; TEMP 36.7
[2021-07-10 19:16] LABS: Fetal Fibronectin Negative (Negative)
--- NOTE | 2021-07-10 22:45 | W.ED.GENAD ---
Discharge Plan Disposition Patient Disposition: OTHER Condition: Stable Discharge Details Clinical Impression: Primary Care Provider: Marva Hitchcock ED Provider: Chacha Juan Medical Decision Making Patient is alert and oriented Case was discussed with Dr. Stockton who is willing to have the patient discharged from the emergency department for monitoring Patient did not have heart rate in the emergency department, because immediately after my assessment she was discharged upstairs to OB Return precautions discussed and patient expressed understanding No additional intervention was performed at this time, specifically no laboratory testing as she was discharged to OB in stable condition with mild tachycardia which will be reassessed in the OB suite Medical Records Medical records reviewed: Yes I reviewed the patient's medical records. HPI General Date/Time Provider Initiated Documentation: 07/10/21 17:11. HPI Narrative: This 25-year-old female with past medical history of gestational diabetes presents with report of abdominal pain and back pain. She is 35 weeks . She is high risk delivery and is scheduled to deliver at [facility]. She denies any fever or chills. She denies any chest pain or shortness of breath. She denies any dizziness or weakness. She has had nausea with one episode of vomiting this morning. She denies any urinary complaints. She states with her last she also had back pain during labor. She did not call her OB today. She denies any vaginal bleeding. Related Data Home Medications Medication Instructions Recorded Confirmed valacyclovir 500 mg tablet 500 mg PO PRN PRN 09/18/19 05/27/21 (Valtrex) vitamin with calcium 1 tab PO DAILY #90 tabs 12/05/20 07/10/21 no.72-iron 27 mg-folic acid 1 mg tablet (PrePlus) pantoprazole 40 mg tablet,delayed 40 mg PO DAILY #30 tabs 02/12/21 05/27/21 release (Protonix) valacyclovir 1 gram tablet 1,000 mg PO DAILY #30 tabs 03/31/21 07/10/21 (Valtrex) albuterol sulfate 90 mcg/actuation 2 inh inhalation Q6H PRN shortness 04/29/21 07/10/21 breath activated powder inhaler of breath or wheezing #1 ea (ProAir RespiClick) alcohol swabs (Alcohol Prep Pads) 1 pad topical QID #100 ea 05/22/21 07/10/21 blood sugar diagnostic (FreeStyle #100 ea 05/22/21 05/27/21 Lite Strips) blood-glucose meter (FreeStyle #1 ea 05/22/21 05/27/21 Lite Meter kit) lancets 28 gauge (FreeStyle #100 ea 05/22/21 05/27/21 Lancets) levothyroxine 150 mcg tablet 250 mcg PO DAILY 05/27/21 07/10/21 insulin NPH isoph U-100 human 100 15 unit subcut HS 07/10/21 07/10/21 unit/mL (3 mL) subcutaneous pen (Novolin N Flexpen) Previous Rx's Medication Instructions Recorded vitamin with calcium 1 tab PO DAILY #90 tabs 12/05/20 no.72-iron 27 mg-folic acid 1 mg tablet (PrePlus) pantoprazole 40 mg tablet,delayed 40 mg PO DAILY #30 tabs 02/12/21 release (Protonix) valacyclovir 1 gram tablet 1,000 mg PO DAILY #30 tabs 03/31/21 (Valtrex) albuterol sulfate 90 mcg/actuation 2 inh inhalation Q6H PRN shortness 04/29/21 breath activated powder inhaler of breath or wheezing #1 ea (ProAir RespiClick) alcohol swabs (Alcohol Prep Pads) 1 pad topical QID #100 ea 05/22/21 blood sugar diagnostic (FreeStyle #100 ea 05/22/21 Lite Strips) blood-glucose meter (FreeStyle #1 ea 05/22/21 Lite Meter kit) lancets 28 gauge (FreeStyle #100 ea 05/22/21 Lancets) Allergies Allergy/AdvReac Type Severity Reaction Status Date / Time No Known Allergies Allergy Unverified 07/10/21 16:42 General Stated Complaint: [employer] JEANETTE: 3 Review of Systems All systems reviewed & are unremarkable except as noted in HPI and below PFSH All Active Problems (Updated 07/10/21 @ 22:57 by IBETH Esquivel) Gestational diabetes mellitus (GDM) affecting (Acute) BMI 50.0-59.9, adult (Acute) Elevated liver enzymes (Acute) Fatty liver (Acute) incidental finding, patient reports she was heavy drinker in past and is aware of this finding Graves' disease (Acute) Recurrent genital HSV (herpes simplex virus) infection (Acute) (Acute) Hypothyroidism (Chronic) see Carlos Nuñez MD, diagnosed age 12, graves disease Medical History (Updated 07/10/21 @ 22:57 by IBETH Esquivel) Acute cholecystitis ADHD (attention deficit hyperactivity disorder) evaluation Asthma Cholangitis due to bile duct calculus with obstruction Choledocholithiasis with obstruction Depression Epigastric abdominal pain Heavy alcohol use ages 14-21, High BMI 49 History of radioactive iodine thyroid ablation age 14 Intractable abdominal pain Morbidly obese Post depression Right flank pain renal scan is nml, problem resolved Surgical History H/O endoscopic retrograde cholangiopancreatography (~06/17/20) History of cholecystectomy (~02/15/20) History of esophagogastroduodenoscopy (EGD) (~06/2020) Family History (Updated 03/31/21 @ 13:04 by Ansley Khanna CNM) Father Yanira's disease Hypertension Diabetes Mother Hypertension Retinal disease Kidney stones Brother Autism Retinal disease Oppositional defiant behavior Brother Retinal disease Social History (Updated 02/12/21 @ 15:06 by Ansley Khanna CNM) Smoking/Tobacco Use Status: Former Tobacco Use Quit Date: 03/01/18 Smoking risk assessment performed?: Yes Alcohol Intake: former Details: heavy drinking age 14-21. Denies use now. Drug use: Never Substance use type: does not use Current gender identity: female Do you feel safe at home: Yes Do you feel safe in your relationship?: Yes Female Reproductive History Menstrual control method: none History History 2 Para 1 Hx # Term Pregnancies 1 Multiple births 0 Hx # Pregnancies 0 Ectopic pregnancies 0 AB induced 0 Hx Number of Living Children 1 AB spontaneous 0 Past Pregnancies Del. Date GA/Weeks # Outcome Route Wgt Sex Labor Lgth Anesthesia Location Prov Complic 08/08/17 40 No Successful vaginal 3827.186 g Female [facility], vanishing twin Delivery Date: 08/08/17 Last Updated by: ROSENDO Corey, Exam Const General: cooperative, comfortable and no acute distress Resp Effort & Inspection: normal respiratory effort Cardio Rate: tachycardic GI Other: Abdominal tenderness with palpation, gravid uterus No CVA tenderness Skin General skin exam: no rashes or lesions noted Neuro General: patient alert and patient oriented x3 Extrem General: normal to inspection Course Vital Signs Vital signs: Vital Signs Temperature 36.4 C L 07/10/21 16:33 Pulse 113 H 07/10/21 16:33 Respiratory Rate 16 07/10/21 16:33 Blood Pressure 132/85 07/10/21 16:33 Pulse Oximetry 97 07/10/21 16:33 Temperature 36.7 C 07/10/21 18:35 Temperature Source Skin 07/10/21 16:33 Pulse 86 07/10/21 18:35 Respiratory Rate 18 07/10/21 18:35 Respiratory Effort 07/10/21 16:44 Blood Pressure 135/82 07/10/21 18:35 Blood Pressure Position Sitting 07/10/21 16:33 Pulse Oximetry 97 07/10/21 16:33 Oxygen Delivery Method Room Air 07/10/21 18:35 Oxygen Flow Rate 0 07/10/21 18:35 Pain Level 7 07/10/21 16:33
== END 2021-07-10 18:46 | disposition home or self-care (01) | DRG 833 ==
LOC: ER 16:39 → OBS 17:51 → ER 07-14 10:26
PROVIDERS: Obstetrics & Gynecology Gynecology; Emergency Provider Physician Assistant; PCP Family Medicine
DX: O26.893 Other specified pregnancy related conditions, third trimester (principal); R10.9 Unspecified abdominal pain; Z3A.35 35 weeks gestation of pregnancy; O99.283 Endocrine, nutritional and metabolic diseases complicating pregnancy, third trimester; E03.8 Other specified hypothyroidism; O26.613 Liver and biliary tract disorders in pregnancy, third trimester; K76.0 Fatty (change of) liver, not elsewhere classified; O98.313 Other infections with a predominantly sexual mode of transmission complicating pregnancy, third trimester; A60.00 Herpesviral infection of urogenital system, unspecified; O99.343 Other mental disorders complicating pregnancy, third trimester; F32.A Depression, unspecified; O99.513 Diseases of the respiratory system complicating pregnancy, third trimester; O24.414 Gestational diabetes mellitus in pregnancy, insulin controlled; J45.909 Unspecified asthma, uncomplicated; F90.9 Attention-deficit hyperactivity disorder, unspecified type; E66.01 Morbid (severe) obesity due to excess calories; O99.213 Obesity complicating pregnancy, third trimester
CPT/HCPCS: 96374; 99284; 99285; 82731; 99283

== ENCOUNTER 2021-08-09 05:01 | Emergency (ER) | payer MEDICAID, SELFPAY ==
[2021-08-09 05:14] VITALS: BP 142/102; PULSE 81; RESP 16; TEMP 36.7; O2SAT 99
[2021-08-09 05:29] LABS: Bilirubin Negative (Negative); Blood Moderate (Negative); Clarity Clear (Clear); Glucose Negative (Negative); Ketones Negative (Negative); Leukocyte Esterase Trace (Negative); Nitrite Negative (Negative); Urobilinogen 0.2 EU/dL (Up TO 0.2); pH 6.5 (5-8)
[2021-08-09 05:40] LABS: Bacteria Few HPF (Negative); C & S Indicated? Yes; Casts Negative LPF (Negative); Crystals Negative HPF (Negative); Epithelial Cells Rare HPF (Negative); Mucus Negative (Negative); RBC 20-50 HPF (0-2)
[2021-08-09 05:53] LABS: Abs Immature Grans 0.03 10^3/uL (0.0-0.06); Absolute Basophil Count 0.03 10^3/uL (0.0-0.2); Absolute Eosinophil Count 0.19 10^3/uL (0.0-0.7); Absolute Lymphocyte Count 1.64 10^3/uL (1.2-3.4); Absolute Monocyte Count 0.55 10^3/uL (0.1-0.8); Absolute Neutrophil Count 6.21 10^3/uL (1.2-6.7); Basophils % 0.3; Eosinophils % 2.2; HCT 32.1 % (36.0-46.0); HGB 10.5 g/dL (11.2-15.7); Immature Grans % 0.3; MCHC 32.7 % (32.0-36.0); MCV 89 fL (80-95); MPV 10.4 fL (8.0-11.0); Monocytes % 6.4; Neutrophils % 71.8; Platelet Count 209 10^3/uL (130-400); RBC 3.62 10^6/uL (3.93-5.22); RDW 14.7 % (11.7-14.6); RDW-SD 47.5 fL; WBC 8.65 10^3/uL (4.4-10.8)
[2021-08-09] MEDS: Ketorolac 30 MG/ML VIAL IVP (05:53)
--- NOTE | 2021-08-09 05:56 | ED.GENADUL_ITS ---
Discharge Plan Disposition Patient Disposition: HOME Condition: Stable Discharge Details Clinical Impression: Abdominal pain, Anemia, Primary Care Provider: Marva Hitchcock ED Provider: Jaspreet Prado Home Meds and New Rx's Prescriptions: Continued PrePlus 27 mg iron- 1 mg tablet 1 tab PO DAILY Qty: 90 5RF Rx Instructions: give with food (meal/snack) pantoprazole [Protonix] 40 mg tablet,delayed release (DR/EC) 40 mg PO DAILY Qty: 30 6RF valacyclovir [Valtrex] 1 gram tablet 1,000 mg PO DAILY Qty: 30 3RF ProAir RespiClick 90 mcg/actuation aerosol powdr breath activated 2 inh inhalation Q6H PRN (Reason: shortness of breath or wheezing) Qty: 1 0RF (DME) blood-glucose meter [FreeStyle Lite Meter] Kit See Rx Instructions .Route Qty: 1 0RF Rx Instructions: As directed (DME) FreeStyle Lite Strips Strip See Rx Instructions .Route Qty: 100 3RF Rx Instructions: QID (DME) lancets [FreeStyle Lancets] 28 gauge misc See Rx Instructions .Route Qty: 100 3RF Rx Instructions: QID alcohol swabs [Alcohol Prep Pads] Pads, Medicated 1 pad topical QID Qty: 100 3RF valacyclovir [Valtrex] 500 mg Tablet 500 mg PO PRN PRN levothyroxine 150 mcg tablet 250 mcg PO DAILY Label Comments: pt reports she is taking 250 mcg Discontinued Novolin N Flexpen 100 unit/mL (3 mL) insulin pen 15 unit SUBCUT HS Label Comments: INJECT 5 UNITS SUBCUTANEOUSLY AT BEDTIME DIRECTED Discharge Instructions Additional Instructions: Please follow-up with your benefits analyst. Call on Wednesday. Return to the ER immediately for any worsening or new concerning symptoms. Referrals: Sarah Doherty [[facility] NURSE CORE PASTER] - Medical Decision Making 600 -- 25-year-old female here 2 days induced vaginal delivery complicated by failed epidural analgesia with lower abdominal pain since delivery. Patient's tenderness suprapubic without peritoneal signs. Patient has not taken ibuprofen today. I will give Toradol 30 mg IV and reassess. Screening labs to be sent. 733 --I spoke with maternal- medicine healthcare administration intern at [facility], discussed ED presentation and course, she recommends discharge with outpatient follow-up. Disposition decision was made weighing the risks and benefits of hospitalization versus outpatient treatment, the risk for further decompensation, and the patient's wishes. The patient was stable and requested discharge. Prior to discharge, my usual and customary return precautions were reviewed with the patient - this included follow-up instructions and reason to return to the emergency department if condition worsens, does not improve as expected, or other new concerns arise. HPI General Mode of arrival: ambulatory . Date/Time Provider Initiated Documentation: 08/09/21 05:09 . Limitations to Documentation: no limitations . Information obtained by: patient . HPI Narrative: 25-year-old presents 2 days with chief complaint of abdominal pain. Patient notes lower abdominal pain that has persisted since delivery. She notes that she thinks she left the hospital too soon to attend her other daughter's birthday. Pain is moderate to severe and worse with movement. No associated fever. No urinary symptoms. No vaginal bleeding. She has had some nausea with no vomiting. Patient states that vaginal delivery was induced for hypertension. Delivery was complicated by failed epidural. Patient notes delivery itself proceeded without complication and that she delivered after only 2 pushes. Related Data Home Medications Medication Instructions Recorded Confirmed valacyclovir 500 mg tablet 500 mg PO PRN PRN 09/18/19 08/09/21 (Valtrex) vitamin with calcium 1 tab PO DAILY #90 tabs 12/05/20 08/09/21 no.72-iron 27 mg-folic acid 1 mg tablet (PrePlus) pantoprazole 40 mg tablet,delayed 40 mg PO DAILY #30 tabs 02/12/21 05/27/21 release (Protonix) valacyclovir 1 gram tablet 1,000 mg PO DAILY #30 tabs 03/31/21 08/09/21 (Valtrex) albuterol sulfate 90 mcg/actuation 2 inh inhalation Q6H PRN shortness 04/29/21 08/09/21 breath activated powder inhaler of breath or wheezing #1 ea (ProAir RespiClick) alcohol swabs (Alcohol Prep Pads) 1 pad topical QID #100 ea 05/22/21 07/10/21 blood sugar diagnostic (FreeStyle #100 ea 05/22/21 05/27/21 Lite Strips) blood-glucose meter (FreeStyle #1 ea 05/22/21 05/27/21 Lite Meter kit) lancets 28 gauge (FreeStyle #100 ea 05/22/21 05/27/21 Lancets) levothyroxine 150 mcg tablet 250 mcg PO DAILY 05/27/21 08/09/21 Previous Rx's Medication Instructions Recorded vitamin with calcium 1 tab PO DAILY #90 tabs 12/05/20 no.72-iron 27 mg-folic acid 1 mg tablet (PrePlus) pantoprazole 40 mg tablet,delayed 40 mg PO DAILY #30 tabs 02/12/21 release (Protonix) valacyclovir 1 gram tablet 1,000 mg PO DAILY #30 tabs 03/31/21 (Valtrex) albuterol sulfate 90 mcg/actuation 2 inh inhalation Q6H PRN shortness 04/29/21 breath activated powder inhaler of breath or wheezing #1 ea (ProAir RespiClick) alcohol swabs (Alcohol Prep Pads) 1 pad topical QID #100 ea 05/22/21 blood sugar diagnostic (FreeStyle #100 ea 05/22/21 Lite Strips) blood-glucose meter (FreeStyle #1 ea 05/22/21 Lite Meter kit) lancets 28 gauge (FreeStyle #100 ea 05/22/21 Lancets) Allergies Allergy/AdvReac Type Severity Reaction Status Date / Time No Known Allergies Allergy Unverified 07/10/21 16:42 General 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: 3 Review of Systems All systems reviewed & are unremarkable except as noted in HPI and below Constitutional Constitutional: Denies fever(s) Gastrointestinal Gastrointestinal: Reports as per HPI PFSH All Active Problems (Updated 08/09/21 @ 07:39 by Jaspreet Prado MD) Abdominal pain (Acute) Anemia, (Acute) Gestational diabetes mellitus (GDM) affecting (Acute) BMI 50.0-59.9, adult (Acute) Elevated liver enzymes (Acute) Fatty liver (Acute) incidental finding, patient reports she was heavy drinker in past and is aware of this finding Graves' disease (Acute) Recurrent genital HSV (herpes simplex virus) infection (Acute) (Acute) Hypothyroidism (Chronic) see Carlos Nuñez MD, diagnosed age 12, graves disease Medical History Acute cholecystitis ADHD (attention deficit hyperactivity disorder) evaluation Asthma Cholangitis due to bile duct calculus with obstruction Choledocholithiasis with obstruction Depression Epigastric abdominal pain Heavy alcohol use ages [age], High BMI 49 History of radioactive iodine thyroid ablation age 14 Intractable abdominal pain Morbidly obese Post depression Right flank pain renal scan is nml, problem resolved Surgical History H/O endoscopic retrograde cholangiopancreatography (~06/17/20) History of cholecystectomy (~02/15/20) History of esophagogastroduodenoscopy (EGD) (~06/2020) Family History Father Yanira's disease Hypertension Diabetes Mother Hypertension Retinal disease Kidney stones Brother Autism Retinal disease Oppositional defiant behavior Brother Retinal disease Social History Smoking/Tobacco Use Status: Former Tobacco Use Quit Date: 03/01/18 Smoking risk assessment performed?: Yes Alcohol Intake: former Details: heavy drinking age [age]. Denies use now. Drug use: Never Substance use type: does not use Current gender identity: female Do you feel safe at home: Yes Do you feel safe in your relationship?: Yes Female Reproductive History Menstrual control method: none History History 2 Para 1 Hx # Term Pregnancies 1 Multiple births 0 Hx # Pregnancies 0 Ectopic pregnancies 0 AB induced 0 Hx Number of Living Children 1 AB spontaneous 0 Past Pregnancies Del. Date GA/Weeks # Outcome Route Wgt Sex Labor Lgth Anesthes ia Location Prov Complic 08/08/17 40 No Successful vaginal 3827.186 g Female 10 [facility] [place], vanishing twin Delivery Date: 08/08/17 Last Updated by: ROSENDO Corey, Exam Const General: cooperative and no acute distress Nutritional Appearance: obese HENMT Mouth: moist mucous membranes Eyes Conjunctivae: normal conjunctivae Sclera: normal sclerae Neck Neck: trachea midline and supple Resp Auscultation: clear to auscultation bilaterally, no rales, no rhonchi and no wheezes Cardio Rate: regular rate and not tachycardic Rhythm: regular rhythm GI Palpation: soft, not firm, no guarding, no masses, not rigid and tender suprapubicly; with no rebound tenderness Skin General skin exam: no rashes or lesions noted Neuro General: patient alert, patient awake and tone normal Extrem General: no edema Psych Appearance: grossly normal Mental Status: mental status grossly normal Speech and Movement: speech and movement normal Course Vital Signs Vital signs: Vital Signs Temperature 36.7 C 08/09/21 05:14 Pulse 81 08/09/21 05:14 Respiratory Rate 16 08/09/21 05:14 Blood Pressure 142/102 H 08/09/21 05:14 Pulse Oximetry 99 08/09/21 05:14 Temperature 36.7 C 08/09/21 05:14 Temperature Source Oral 08/09/21 05:14 Pulse 81 08/09/21 05:14 Respiratory Rate 16 08/09/21 05:14 Respiratory Effort Non-Labored 08/09/21 05:17 Blood Pressure 142/102 H 08/09/21 05:14 Pulse Oximetry 99 08/09/21 05:14 Pain Level 8 08/09/21 05:53 Lab/Test Results Lab/Test Results: 08/09/21 05:10 Urine - Reflex from Ua Urine Culture - Pending Laboratory Tests Range/Units 08/09/21 08/09/21 05:10 05:43 WBC (4.4-10.8) 10^3/uL 8.65 RBC (3.93-5.22) 10^6/uL 3.62 L Hgb (11.2-15.7) g/dL 10.5 L Hct (36.0-46.0) % 32.1 L MCV (80-95) fL 89 MCH (27.0-33.0) pg 29.0 MCHC (32.0-36.0) % 32.7 RDW (11.7-14.6) % 14.7 H Plt Count (130-400) 10^3/uL 209 MPV (8.0-11.0) fL 10.4 Immature Gran % 0.3 Neutrophils % 71.8 Lymphocytes % 19.0 Monocytes % 6.4 Eosinophils % 2.2 Basophils % 0.3 Nucleated RBC % (0.0-0.3) % 0.0 Absolute Neutrophils (1.2-6.7) 10^3/uL 6.21 Absolute Lymphocytes (1.2-3.4) 10^3/uL 1.64 Absolute Monocytes (0.1-0.8) 10^3/uL 0.55 Absolute Eosinophils (0.0-0.7) 10^3/uL 0.19 Absolute Basophils (0.0-0.2) 10^3/uL 0.03 Urine Color (Yellow) Yellow Urine Clarity (Clear) Clear Urine pH (5-8) 6.5 Ur Specific [place] (1.005-1.025) 1.020 Urine Protein (Negative) mg/dL Negative Urine Ketones (Negative) mg/dL Negative Urine Blood (Negative) Moderate H Urine Nitrite (Negative) Negative Urine Bilirubin (Negative) Negative Urine Urobilinogen (Up TO 0.2) EU/dL 0.2 Ur Leukocyte Esterase (Negative) Trace H Urine RBC (0-2) HPF 20-50 H Urine WBC (0-5) HPF 5-10 Ur Epithelial Cells (Negative) HPF Rare Urine Crystals (Negative) HPF Negative Urine Bacteria (Negative) HPF Few Urine Casts (Negative) LPF Negative Urine Mucus (Negative) Negative Ur Culture Indicated? Yes Urine Glucose (Negative) mg/dL Negative
[2021-08-09 06:06] LABS: Lipase 99 U/L (73-393)
[2021-08-09 06:09] LABS: ALT 23 U/L (14-59); AST 15 U/L (15-37); Albumin 2.2 g/dL (3.4-5.0); Alkaline Phosphatase 116 U/L (46-116); Anion Gap 11.6 mmol/L (3-11); BUN 7 mg/dL (7-18); CO2 23.4 mmol/L (21.0-32.0); CREATININE 0.7 mg/dL (0.55-1.02); Calcium 9.2 mg/dL (8.5-10.1); Chloride 107 mmol/L (98-107); Glucose 84 mg/dL (74-106); Potassium 3.7 mmol/L (3.5-5.1); Sodium 142 mmol/L (136-145); Total Protein 6.2 g/dL (6.4-8.2)
[2021-08-09 06:40] LABS: Bilirubin, Total < 0.1 mg/dL (0.2-1.0)
[2021-08-09 08:19] VITALS: BP 153/100; PULSE 78; RESP 18; O2SAT 100
== END 2021-08-09 08:18 | disposition home or self-care (01) ==
PROVIDERS: Emergency Provider Student in an Organized Health Care Education/Training Program; PCP Family Medicine
DX: O90.89 Other complications of the puerperium, not elsewhere classified (principal); O90.81 Anemia of the puerperium
CPT/HCPCS: 80053; 83690; 96374; 99284; 81003; 81015; 85025; 87086; 99283; J1885

== ENCOUNTER 2021-10-27 19:55 | Emergency (ER) | payer MEDICAID, SELFPAY ==
[2021-10-27 19:58] VITALS: BP 165/103; PULSE 75; RESP 16; TEMP 36.6; O2SAT 99
--- NOTE | 2021-10-27 20:03 | DI.RAD_ITS ---
Exam(s) XR WRIST LT COMPLETE EXAM: XR WRIST LT COMPLETE CLINICAL HISTORY: pain in left medial wrist, distal ulna pain TECHNIQUE: COMPARISON: No exams were available for comparison FINDINGS: Three views were obtained. There is an apparent cortical discontinuity of a carpal bone projected do rsally on the lateral view, findings are suspicious for a fracture, perhaps involving the lunate or c apitate. Additional oblique views or CT recommended. New 5 Findings were discussed with Dr. Adler in the ER. IMPRESSION: RADIATION DOSE DELIVERED: Total DLP
--- NOTE | 2021-10-27 20:04 | W.ED.GENAD ---
Discharge Plan Disposition Patient Disposition: HOME Condition: Good Discharge Details Chief Complaint: Orthopedic Clinical Impression: Left wrist sprain Primary Care Provider: Marva Hitchcock ED Provider: Vinod Villa Home Meds and New Rx's Prescriptions: No Action PrePlus 27 mg iron- 1 mg tablet 1 tab PO DAILY Qty: 90 5RF Rx Instructions: give with food (meal/snack) pantoprazole [Protonix] 40 mg tablet,delayed release (DR/EC) 40 mg PO DAILY Qty: 30 6RF valacyclovir [Valtrex] 1 gram tablet 1,000 mg PO DAILY Qty: 30 3RF Label Comments: only used when ProAir RespiClick 90 mcg/actuation aerosol powdr breath activated 2 inh inhalation Q6H PRN (Reason: shortness of breath or wheezing) Qty: 1 0RF (DME) blood-glucose meter [FreeStyle Lite Meter] Kit See Rx Instructions .Route Qty: 1 0RF Rx Instructions: As directed (DME) FreeStyle Lite Strips Strip See Rx Instructions .Route Qty: 100 3RF Rx Instructions: QID (DME) lancets [FreeStyle Lancets] 28 gauge misc See Rx Instructions .Route Qty: 100 3RF Rx Instructions: QID alcohol swabs [Alcohol Prep Pads] Pads, Medicated 1 pad topical QID Qty: 100 3RF valacyclovir [Valtrex] 500 mg Tablet 500 mg PO PRN PRN levothyroxine 150 mcg tablet 200 mcg PO DAILY Label Comments: pt reports she is taking 250 mcg Discharge Instructions Instructions: Wrist Sprain (ED) Additional Instructions: At this time the x-ray shows no evidence of fracture. I suspect you have a tendinopathy of the extensor tendon your wrist. Please take Tylenol and Motrin as needed for pain. Use the universal wrist splint as directed. Please avoid any significant use or activity with the left wrist for the next week. If you have continued symptoms that worsen, you may need further evaluation by an curriculum and instruction specialist. If you notice any worsening of your symptoms, or any new symptoms such as vomiting, diarrhea, fever, chills, shortness of breath, chest pain, numbness, weakness, or fainting , please return immediately to the emergency department for reevaluation. Please follow up with your primary care provider as soon as possible for reassessment and reevaluation. As always, it was a pleasure participating in your medical care today. Stand Alone Forms: Work Release Referrals: Marva Hitchcock [Primary Care Provider] - Medical Decision Making 26-year-old female with a past medical history of recent and successful delivery few months ago, hypothyroidism, gestational diabetes, who presents today with complaint of left wrist pain. Patient states that for the last 3 days the patient has had pain in her wrist that is gradually been getting worse. Whenever she lifts her children, or moves her wrist it causes pain. She is ambidextrous but primarily left hand. She has been taking Tylenol for this without been helping. She did use a small hand brace that she got at [facility] but this is also not been helping. She denies any new numbness or tingling. She denies any trauma. No other complaints at this time. Pain is primarily located around the medial aspect of the wrist by the distal ulna. No other complaints at this time. Exam demonstrates no redness deformity or other significant abnormality on visual inspection, pain is notably worsened with extension of the wrist particularly over the distal ulna and medial carpals. Suspect extensor tendinopathy. We will get an x-ray to rule out bony pathology. 856 PM X-ray negative for acute process. Patient feels well. Patient stable for discharge. Will give wrist splint, recommend Tylenol Motrin and rest for the next week. Suspect extensor tendinopathy. Discussed red flags which to return. I have extensively reviewed the treatment plan and discharge instructions with the patient. I have addressed all patient concerns at this time. The patient was made aware of what symptoms to monitor for that would warrant a return to the emergency department. Discussed the plan with the patient, they demonstrate verbal understanding and agreement with our assessment and plan at this time. The documentation in this chart was dictated using [employer] dictation software. Please excuse any dictation errors. FINDINGS: Bones/joints: There is no evidence of acute fracture.There is no evidence of malalignment or dislocation. Soft tissues: Normal. IMPRESSION: There is no evidence of acute fracture.There is no evidence of malalignment or dislocation. Thank you for allowing us to participate in the care of your patient. Dictated and Authenticated by: Aram Moore MD 10/27/2021 8:44 PM Eastern Time ([place] & [place]) HPI General Date/Time Provider Initiated Documentation: 10/27/21 20:03. HPI Narrative: 26-year-old female with a past medical history of recent and successful delivery few months ago, hypothyroidism, gestational diabetes, who presents today with complaint of left wrist pain. Patient states that for the last 3 days the patient has had pain in her wrist that is gradually been getting worse. Whenever she lifts her children, or moves her wrist it causes pain. She is ambidextrous but primarily left hand. She has been taking Tylenol for this without been helping. She did use a small hand brace that she got at [facility] but this is also not been helping. She denies any new numbness or tingling. She denies any trauma. No other complaints at this time. Pain is primarily located around the medial aspect of the wrist by the distal ulna. No other complaints at this time. Related Data Home Medications Medication Instructions Recorded Confirmed valacyclovir 500 mg tablet 500 mg PO PRN PRN 09/18/19 10/27/21 (Valtrex) vitamin with calcium 1 tab PO DAILY #90 tabs 12/05/20 08/09/21 no.72-iron 27 mg-folic acid 1 mg tablet (PrePlus) pantoprazole 40 mg tablet,delayed 40 mg PO DAILY #30 tabs 02/12/21 05/27/21 release (Protonix) valacyclovir 1 gram tablet 1,000 mg PO DAILY #30 tabs 03/31/21 08/09/21 (Valtrex) albuterol sulfate 90 mcg/actuation 2 inh inhalation Q6H PRN shortness 04/29/21 10/27/21 breath activated powder inhaler of breath or wheezing #1 ea (ProAir RespiClick) alcohol swabs (Alcohol Prep Pads) 1 pad topical QID #100 ea 05/22/21 10/27/21 blood sugar diagnostic (FreeStyle #100 ea 05/22/21 05/27/21 Lite Strips) blood-glucose meter (FreeStyle #1 ea 05/22/21 05/27/21 Lite Meter kit) lancets 28 gauge (FreeStyle #100 ea 05/22/21 05/27/21 Lancets) levothyroxine 150 mcg tablet 200 mcg PO DAILY 05/27/21 10/27/21 Previous Rx's Medication Instructions Recorded vitamin with calcium 1 tab PO DAILY #90 tabs 12/05/20 no.72-iron 27 mg-folic acid 1 mg tablet (PrePlus) pantoprazole 40 mg tablet,delayed 40 mg PO DAILY #30 tabs 02/12/21 release (Protonix) valacyclovir 1 gram tablet 1,000 mg PO DAILY #30 tabs 03/31/21 (Valtrex) albuterol sulfate 90 mcg/actuation 2 inh inhalation Q6H PRN shortness 04/29/21 breath activated powder inhaler of breath or wheezing #1 ea (ProAir RespiClick) alcohol swabs (Alcohol Prep Pads) 1 pad topical QID #100 ea 05/22/21 blood sugar diagnostic (FreeStyle #100 ea 05/22/21 Lite Strips) blood-glucose meter (FreeStyle #1 ea 05/22/21 Lite Meter kit) lancets 28 gauge (FreeStyle #100 ea 05/22/21 Lancets) Allergies Allergy/AdvReac Type Severity Reaction Status Date / Time No Known Allergies Allergy Unverified 10/27/21 20:04 General Stated Complaint: Orthopedic JEANETTE: 4 Review of Systems All systems reviewed & are unremarkable except as noted in HPI and below PFSH All Active Problems (Updated 10/27/21 @ 20:59 by Vinod Villa DO) Left wrist sprain (Acute) Gestational diabetes mellitus (GDM) affecting (Acute) BMI 50.0-59.9, adult (Acute) Elevated liver enzymes (Acute) Fatty liver (Acute) incidental finding, patient reports she was heavy drinker in past and is aware of this finding Graves' disease (Acute) Recurrent genital HSV (herpes simplex virus) infection (Acute) (Acute) Hypothyroidism (Chronic) see Carlos Nuñez MD, diagnosed age 12, graves disease Medical History Acute cholecystitis ADHD (attention deficit hyperactivity disorder) evaluation Asthma Cholangitis due to bile duct calculus with obstruction Choledocholithiasis with obstruction Depression Epigastric abdominal pain Heavy alcohol use ages [age], High BMI 49 History of radioactive iodine thyroid ablation age 14 Intractable abdominal pain Morbidly obese Post depression Right flank pain renal scan is nml, problem resolved Surgical History H/O endoscopic retrograde cholangiopancreatography (~06/17/20) History of cholecystectomy (~02/15/20) History of esophagogastroduodenoscopy (EGD) (~06/2020) Family History Father Yanira's disease Hypertension Diabetes Mother Hypertension Retinal disease Kidney stones Brother Autism Retinal disease Oppositional defiant behavior Brother Retinal disease Social History Smoking/Tobacco Use Status: Former Tobacco Use Quit Date: 03/01/18 Smoking risk assessment performed?: Yes Alcohol Intake: former Details: heavy drinking age [age]. Denies use now. Drug use: Never Substance use type: does not use Current gender identity: female Do you feel safe at home: Yes Do you feel safe in your relationship?: Yes Female Reproductive History Menstrual control method: none History History 2 Para 1 Hx # Term Pregnancies 1 Multiple births 0 Hx # Pregnancies 0 Ectopic pregnancies 0 AB induced 0 Hx Number of Living Children 1 AB spontaneous 0 Past Pregnancies Del. Date GA/Weeks # Preg Succ Route Wgt Sex Labor Lgth Anesthesia Location Prov Complic 08/08/17 40 No vaginal 3827.186 g Female 10 [facility], vanishing twin Delivery Date: 08/08/17 Last Updated by: ROSENDO Corey, Exam Narrative Exam Narrative: 1.Const: Well-nourished, Well-developed, appearing stated age 2.Eyes: PERRL, no conjunctival injection, and symmetrical lids. 3.ENT: Atraumatic external nose and ears. Moist MM. Neck: Symmetric, trachea midline, No thyromegaly. 4.CVS: +S1/S2, No murmurs or gallops. Peripheral pulses 2+ and equal in all extremities. Brisk capillary refill in all extremities. 5.RESP: Unlabored respiratory effort. Clear to auscultation bilaterally. No wheezes rales or rhonchi 6.GI: Soft, Nontender/Nondistended, No hepatosplenomegaly. No guarding or rebound. 7.MSK: Normocephalic/Atraumatic, Extremities w/o deformity . No cyanosis or clubbing, Normal movement of all extremities. Left wrist demonstrates minimal tenderness on the medial aspect by the distal ulna. Notable worsening of pain with extension of wrist, mild pain with flexion of wrist. Mild pain with both combination supination of the wrist. Good sensation in all fingers. Brisk capillary refill is present. No redness or deformity 8.Skin: Warm, Dry. No rashes or lesions. 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 Sensation grossly intact, no focal neurologic deficits. 10.Psych: (AAO) x3. Appropriate mood and affect Course Vital Signs Vital signs: Vital Signs Temperature 36.6 C 10/27/21 19:58 Pulse 75 10/27/21 19:58 Respiratory Rate 16 10/27/21 19:58 Blood Pressure 165/103 H 10/27/21 19:58 Pulse Oximetry 99 10/27/21 19:58 Temperature 36.6 C 10/27/21 19:58 Temperature Source Skin 10/27/21 19:58 Pulse 75 10/27/21 19:58 Respiratory Rate 16 10/27/21 19:58 Blood Pressure 165/103 H 10/27/21 19:58 Blood Pressure Position Sitting 10/27/21 19:58 Pulse Oximetry 99 10/27/21 19:58 Oxygen Delivery Method Room Air 10/27/21 19:58 Oxygen Flow Rate 0 10/27/21 19:58 Pain Level 8 10/27/21 19:58 Comment tylenol 10/27/21 19:58
--- NOTE | 2021-10-27 20:44 | DI.VRAD_ITS ---
PROCEDURE INFORMATION: Exam: XR Left Wrist Exam date and time: 10/27/2021 8:12 PM Age: 26 years old Clinical indication: Patient HX: Pain in left medial wrist, distal ulna pain TECHNIQUE: Imaging protocol: Radiologic exam of the Left wrist. Views: 3 or more views. COMPARISON: No relevant prior studies available. FINDINGS: Bones/joints: There is no evidence of acute fracture.There is no evidence of malalignment or dislocation. Soft tissues: Normal. IMPRESSION: There is no evidence of acute fracture.There is no evidence of malalignment or dislocation. Dictated and Authenticated by: Aram Moore MD. Ordering:BRISEIDA Brock MD
--- NOTE | 2021-10-28 13:22 | NUR.NOTE ---
Addendum entered by Lula León 10/28/21 13:23: Referral given to Care Management for needs PCP; establish care; routine follow up. Original Note: Nursing Note: 1315 spoke with patient, she will wear splint. If in 1 to 2 weeks if still having pain will follow up with ortho. No current PCP at this time.
== END 2021-10-27 21:18 | disposition home or self-care (01) ==
PROVIDERS: Emergency Provider Student in an Organized Health Care Education/Training Program; PCP Family Medicine
DX: S63.502A Unspecified sprain of left wrist, initial encounter (principal); X58.XXXA Exposure to other specified factors, initial encounter
CPT/HCPCS: 99283; 73110; 99282

== ENCOUNTER 2021-12-01 15:44 | Outpatient (CLI) | payer MEDICAID, SELFPAY ==
--- NOTE | 2021-12-01 15:30 | DI.RAD_ITS ---
Exam(s) XR WRIST LT COMPLETE EXAM: XR WRIST LT COMPLETE CLINICAL HISTORY: left wrist pain. TECHNIQUE: 2D digital imaging was performed. Three views. COMPARISON: CR,XR XR WRIST LT COMPLETE from 10/27/2021 FINDINGS: BONES: A small bony density is again noted on the lateral view posterior to the proximal carpal row. No new abnormality is seen. No bony destructive lesion is seen. DATA REPOSITORY: RADIATION DOSE DELIVERED:
== END 2021-12-01 15:45 | disposition home or self-care (01) ==
LOC: DIORS 15:44
PROVIDERS: PCP Family Medicine; Referring Provider Family Medicine; Visit Provider Physician Assistant
DX: M25.532 Pain in left wrist (principal)
CPT/HCPCS: 73110

== ENCOUNTER 2021-12-16 08:18 | Emergency (ER) | payer OTHER, MEDICAID, SELFPAY ==
[2021-12-16 08:20] VITALS: BP 148/98; PULSE 72; RESP 18; TEMP 36.1; O2SAT 100
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
[2021-12-16] MEDS: Acetaminophen 500 MG TAB 1000 MG PO (09:32)
[2021-12-16] MEDS: Ondansetron O.D.T. 4 MG TABEF PO (09:32)
== END 2021-12-16 11:01 | disposition home or self-care (01) ==
PROVIDERS: Emergency Provider Physician Assistant; PCP Family Medicine
DX: S06.9X9A Unspecified intracranial injury with loss of consciousness of unspecified duration, initial encounter (principal); F07.81 Postconcussional syndrome; V89.2XXA Person injured in unspecified motor-vehicle accident, traffic, initial encounter; S00.12XA Contusion of left eyelid and periocular area, initial encounter; W22.8XXA Striking against or struck by other objects, initial encounter; M53.86 Other specified dorsopathies, lumbar region
CPT/HCPCS: 99284; 70450; 70486; 72125; 99285

== ENCOUNTER 2021-12-24 18:10 | Emergency (ER) | payer MEDICAID, SELFPAY ==
[2021-12-24 18:21] VITALS: BP 163/110; PULSE 83; RESP 18; TEMP 37.1; O2SAT 98
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
--- NOTE | 2021-12-24 20:22 | NUR.NOTE ---
Referral faxed to [facility] to f/u HAZEL for Post Depression.Nursing Note:
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
== END 2021-12-24 19:51 | disposition home or self-care (01) ==
PROVIDERS: Emergency Provider Physician Assistant
DX: F32.A Depression, unspecified (principal)
CPT/HCPCS: 99284

== ENCOUNTER 2022-01-09 01:26 | Outpatient (CLI) | payer MEDICAID, SELFPAY ==
[2022-01-09 09:43] LABS: FREE T4 0.78 ng/dL (0.76-1.46); TSH 62.53 uIU/mL (0.36-3.74)
[2022-01-09 18:19] LABS: T3,Free 2.3 pg/mL (2.8-5.3)
== END 2022-01-09 01:27 | disposition home or self-care (01) ==
LOC: LBO 01:26
PROVIDERS: Visit Provider Advanced Practice Midwife
DX: E05.00 Thyrotoxicosis with diffuse goiter without thyrotoxic crisis or storm (principal)
CPT/HCPCS: 36415; 84439; 84443; 84481

== ENCOUNTER 2022-02-13 01:00 | Outpatient (CLI) | payer MEDICAID, SELFPAY ==
[2022-02-13 13:21] LABS: FREE T4 0.99 ng/dL (0.76-1.46)
== END 2022-02-13 01:01 | disposition home or self-care (01) ==
PROVIDERS: Visit Provider Internal Medicine Endocrinology, Diabetes & Metabolism
DX: E89.0 Postprocedural hypothyroidism (principal)
CPT/HCPCS: 36415; 84439; 84443

== ENCOUNTER 2022-03-10 11:43 | Day surgery (SDC) | payer MEDICAID, SELFPAY ==
[2022-03-10] VITALS (7 sets, daily range): BP systolic 115–158; BP diastolic 65–90; PULSE 70–76; RESP 13–18; TEMP 36.4–36.6; O2SAT 98–100; BMI 48.5
--- NOTE | 2022-03-10 07:28 | W.PM.DSUDISC ---
Date of service: 03/10/22 Time of Service: 07:31 Discharge Plan Disposition Patient Disposition: Home Condition: Good Discharge Details Reason For Visit: Right carpal tunnel syndrome and DeQuekentrell's Attending Provider: Carlos Sotomayor Primary Care Provider: Unknown,Unknown Home Meds and New Rx's Prescriptions: New acetaminophen 500 mg tablet 500 mg PO Q6H PRN (Reason: pain) Qty: 60 2RF ibuprofen 600 mg tablet 600 mg PO TID PRN (Reason: pain) Qty: 60 0RF hydrocodone-acetaminophen 5-325 mg tablet 1 tab PO Q6H PRN (Reason: severe pain) Qty: 4 0RF Rx Instructions: Take one tablet up to every 6 hours as needed for severe postoperative pain Continued sertraline 100 mg tablet 100 mg PO DAILY Qty: 30 1RF valacyclovir [Valtrex] 1 gram tablet 1,000 mg PO BID Qty: 7 6RF levonorgestrel-ethinyl estrad 0.1-20 mg-mcg tablet 1 tab PO DAILY Qty: 84 4RF ProAir RespiClick 90 mcg/actuation aerosol powdr breath activated 2 inh inhalation Q6H PRN (Reason: shortness of breath or wheezing) Qty: 1 0RF (DME) blood-glucose meter [FreeStyle Lite Meter] Kit See Rx Instructions .Route Qty: 1 0RF Rx Instructions: As directed (DME) FreeStyle Lite Strips Strip See Rx Instructions .Route Qty: 100 3RF Rx Instructions: QID (DME) lancets [FreeStyle Lancets] 28 gauge misc See Rx Instructions .Route Qty: 100 3RF Rx Instructions: QID levothyroxine 150 mcg tablet 200 mcg PO DAILY Label Comments: pt reports she is taking 250 mcg Discharge Instructions Additional Instructions: Sara's Discharge Instructions Activity: You should keep the hand elevated as much as possible for the first few days. You may use the other fingers as tolerated but avoid trying to do too much too soon. You may perform light activities with the splint in place. Dressing/Cast: Your splint should stay in place at all times. Do NOT get it wet. You may loosen the CALEB wrap if you feel it is too tight and then rewrap more loosely. Medications: - You should take Tylenol and Ibuprofen for baseline pain control. - You have Hydrocodone for breakthrough pain. - You may apply ice over the thumb. Follow-up: 7-10 days Stand Alone Forms: Bran Reyes Tunnel Release Equipment/Supplies: Splint Activity:: Elevate Remove Dressings/Wound Care:: Do Not Remove Shower/Bathe:: Cover Diet:: As Tolerated Discharge Orders Discharge Orders: Discharge Order (Routine); Ordered 03/10/22 Ordered By: Ayla Maldonado DS: Diagnosis Discharge Diagnosis (1) Carpal tunnel syndrome, right: Status: Acute (2) De Quervain's tenosynovitis, right: Status: Acute
--- NOTE | 2022-03-10 09:14 | ANES.PREOP_ITS ---
General Info Date of Service Date Performed: 03/10/22 Height: 5 ft 3 in Weight: 124.284 kg Body Mass Index (BMI): 48.5 Surgical Procedure: Operation Date: 03/10/22 12:55 Proposed Procedure Side Surgeon p Wrist ECTR Right Carlos Sotomayor MD s Wrist Dequervains Release Right Carlos Sotomayor MD Meds Allergies and Home Medications Allergies Allergy/AdvReac Type Severity Reaction Status Date / Time No Known Allergies Allergy Verified 03/10/22 12:24 Home Medication Medication Instructions Recorded albuterol sulfate 90 mcg/actuation 2 inh inhalation Q6H PRN shortness 04/29/21 breath activated powder inhaler of breath or wheezing #1 ea (ProAir RespiClick) blood sugar diagnostic (FreeStyle #100 ea 05/22/21 Lite Strips) blood-glucose meter (FreeStyle #1 ea 05/22/21 Lite Meter kit) lancets 28 gauge (FreeStyle #100 ea 05/22/21 Lancets) levothyroxine 150 mcg tablet 200 mcg PO DAILY 05/27/21 sertraline 100 mg tablet 100 mg PO DAILY #30 tabs 12/26/21 valacyclovir 1 gram tablet 1,000 mg PO BID #7 tabs 12/26/21 (Valtrex) levonorgestrel-ethinyl estradiol 1 tab PO DAILY #84 tabs 02/11/22 0.1 mg-20 mcg tablet acetaminophen 325 mg tablet 325 mg 03/10/22 (Tylenol) acetaminophen 500 mg tablet 500 mg PO Q6H PRN pain #60 tabs 03/10/22 hydrocodone 5 mg-acetaminophen 325 1 tab PO Q6H PRN severe pain #4 03/10/22 mg tablet tabs ibuprofen 600 mg tablet 600 mg PO TID PRN pain #60 tabs 03/10/22 Current Visit Medications: Current Medications Generic Name Dose Route Start Last Admin Trade Name Freq PRN Reason Stop Dose Admin Acetaminophen 650 mg 03/10/22 07:27 Acetaminophen 325 Mg Tab PO Q4H PRN PRN Hydrocodone Bitart/Acetaminophen 0 tab 03/10/22 07:27 Hydrocodone 5/Acetaminophen 325 Tab PO Q3H PRN PRN Pain Ringer's Solution 1,000 mls @ 80 mls/hr 03/10/22 06:00 IV 04/08/22 23:59 INFUSION RIGO Cefazolin Sodium 3,000 mg/ 100 mls @ 200 mls/hr 03/10/22 06:00 Sodium Chloride IVPB 03/10/22 16:00 PREOP RIGO IV Miscellaneous Supplies 1 each 03/10/22 06:00 Iv Access IV 04/08/22 23:59 DIRECTED RIGO Sodium Chloride 0 ml 03/10/22 06:00 Normal Saline Flush 10 Ml Syr IV 04/08/22 23:59 PRN PRN Sodium Chloride 0 ml 03/10/22 06:00 Normal Saline 10 Ml Vial IJ 04/08/22 23:59 DIRECTED PRN Sterile Water 0 ml 03/10/22 06:00 Water,Injection,Sterile 10 Ml Vial IJ 04/08/22 23:59 DIRECTED PRN PFSH Active Problems Active Problems: Problem Status Onset Code Carpal tunnel syndrome, right G56.01 Carpal tunnel syndrome, left G56.02 TSH elevation R79.89 Post depression F53.0 H/O cold sores Z86.19 De Quervain's tenosynovitis, right M65.4 De Quervain's tenosynovitis, left M65.4 Gestational diabetes mellitus (GDM) affecting O24.419 BMI 50.0-59.9, adult Z68.43 Elevated liver enzymes R74.8 Fatty liver K76.0 Graves' disease E05.00 Recurrent genital HSV (herpes simplex virus) infection A60.00 Hypothyroidism E03.9 Medical History Medical History Acute cholecystitis ADHD (attention deficit hyperactivity disorder) evaluation Asthma Cholangitis due to bile duct calculus with obstruction Choledocholithiasis with obstruction Depression Epigastric abdominal pain Heavy alcohol use ages [age], High BMI 49 History of radioactive iodine thyroid ablation age 14 Intractable abdominal pain Morbidly obese Post depression Right flank pain renal scan is nml, problem resolved Surgical History Surgical History H/O endoscopic retrograde cholangiopancreatography (~06/17/20) History of cholecystectomy (~02/15/20) History of esophagogastroduodenoscopy (EGD) (~06/2020) Tobacco Smoking/Tobacco Use Status: Former Tobacco Use Alcohol Alcohol Intake: current Alcohol intake frequency: a few times a month Details: heavy drinking age [age]. Denies use now. Substance Use Substance use: Never Substance use type: does not use Prental History History 2 Para 1 Hx # Term Pregnancies 1 Multiple births 0 Hx # Pregnancies 0 Ectopic pregnancies 0 AB induced 0 Hx Number of Living Children 1 AB spontaneous 0 Past Pregnancies Del. Date GA/Weeks # Preg Succ Route Wgt Sex Labor Lgth Anesth esia Location Prov Complic 08/08/17 40 No vaginal 3827.186 g Female [facility], vanishing twin Delivery Date: 08/08/17 Last Updated by: ROSENDO Corey, Vital Signs and Lab Results Vital Signs Comment Vital Signs Comment:: Temp Pulse Resp BP Pulse Ox 36.4 C L 72 16 115/65 100 03/10/22 12:15 03/10/22 12:15 03/10/22 12:15 03/10/22 12:15 03/10/22 12:15 Lab Results Blood Type / Crossmatch: No Data to Display Complete Blood Count: No Data to Display Complete Metabolic Panel: No Data to Display Liver Function Panel: No Data to Display Coagulation Panel: No Data to Display Cardiac Panel: No Data to Display Arterial Blood Gas: No Data to Display Venous Blood Gas: No Data to Display Pancreas Panel: No Data to Display Thyroid Panel: Thyroid Stimulating Hormone (TSH) 21.90 uIU/mL (0.36-3.74) H 02/13/22 12:27 Infectious Disease: No Data to Display Blood Cultures: No Data to Display Toxicology Panel: No Data to Display Panel: No Data to Display Imaging and Studies Imaging and Studies Study information below may be from another EMR and interpreted by another provider. Please see original notes in EMR for more complete details. EKG Summary: 05/25/20: Sinus rhythm...normal P axis, V-rate 60- 99 Anesthesia Assessment and Plan Anesthesia History Personal History: No History of Anesthesia Complications Family History: No Family History of Anesthesia Complications Exercise Tolerance Exercise Tolerance: Metabolic Equivalents>4 Cardiac & Pulmonary Exam Cardiac Exam: Normal S1/S2 Heart Sounds Pulmonary Exam: Clear Bilateral Breath Sounds Implantable Cardiac Device Does patient have a Pacemaker or an ICD?: No Airway Exam Known Difficult Airway: No Mallampati Class: 2 Mouth Opening: Normal (> 3cm) Thyromental Distance: Greater than 3 cm Neck Range of Motion: Full ROM Neck Circumference: Thick Teeth Condition: Normal Dentition ASA Classification ASA Score: ASA 3 Emergency Case?: No NPO Status NPO Status: NPO Clears >2 hours, Solids >8 hours Status Status: Negative HCG Anesthesia Plan Resuscitation Status: Full Code Anesthesia Technique: General Anesthesia Airway Planned: Endotracheal Tube Monitors Used: Standard Monitors Preoperative Comments:: 26 yo female for ECTR Sig PMHx: BMI 48, fatty liver, hypothyroid (on replacment), adhd, asthma (albuterol), depression (sertraline), former smoker, occ EtOH. Previous Anes: glide 3 grade 1. was noted to have green bile secretions in her mouth on estuation.
[2022-03-10] MEDS: Lactated Ringers 1,000 ML 80 ML IV (12:58)
[2022-03-10] MEDS: ceFAZolin 3,000 MG in Normal Saline 100 ML 200 MG IVPB (14:25)
[2022-03-10] MEDS: Bupivacaine 0.5% Pres-Free W/EPI 30 ML VIAL (14:32)
--- NOTE | 2022-03-10 15:30 | W.ANESPOSTOP ---
Postoperative Evaluation Date, Time and Location Date Performed: 03/10/22 Time Performed: 15:31 Patient Location: Day Surgery Unit Vital Signs Most Recent Imported Vital Signs: Most Recent Vital Signs Temp Pulse Resp BP Pulse Ox 36.6 C 76 16 145/78 H 100 03/10/22 15:18 03/10/22 15:18 03/10/22 15:18 03/10/22 15:18 03/10/22 15:18 Pain Score Most Recent Pain Score: Most Recent Pain Score Pain Level 0 03/10/22 15:18 Assessment Mental Status: Awake (Alert & Oriented to Patient Baseline) Airway and Respiratory Function: Patent airway with normal (patient baseline) respiratory exam Cardiovascular Function: Hemodynamically Stable Hydration Status: Adequately Hydrated Nausea & Vomiting: No Nausea or Vomiting Pain: Pain is tolerable per patient Peripheral Nerve Block: Patient did not receive a nerve block
[2022-03-10] MEDS: HYDROcodone 5/Acetaminophen 325 TAB PO (15:36)
--- NOTE | 2022-03-10 21:41 | ROE_ITS ---
Date of service: 03/10/22 Time of Service: 15:00 Operative Note Operative Note DATE OF PROCEDURE: 03/10/22 PRE-OP DIAGNOSIS: Right Dequervain's Tenosynovitis and Right Carpal Tunnel Syndrome POST-OP DIAGNOSIS: same PROCEDURE: Right First Extensor Compartment Release and Endoscopic Carpal Tunnel Release SURGEON: Carlos Sotomayor ANESTHESIA TYPE: General:No Airway Refer to Anesthesia Record ESTIMATED BLOOD LOSS: 0 PATHOLOGY: none sent TOURNIQUET TIME: 15 COMPLICATIONS: None Patient was transported to: same day Patient's condition: stable Indications: Tiny is a 26 year old female who has had symptoms of Dequervain's tenosynovitis and carpal tunnel syndrome on the right side. Nonoperative treatment options had been trialed. Given their failure, I offered operative intervention. I reviewed the technical details of a first extensor compartment release along with carpal tunnel release. I reviewed the risk of the procedure to include bleeding, infection, pain, stiffness, tendon instability, damage to the superficial radial nerve, persistent numbness, and incomplete release. Despite these risks, the patient elected to proceed. Findings: There was some synovitis and tightneing of the carpal tunnel. This was released endoscopically. There was a tightened first excessive compartment. Procedure Description: Tiny was greeted in the preoperative holding area. Name and surgical site were confirmed. The history and physical was completed. The consent was reviewed the patient and signed. She was taken back to the operating room. The patient was placed in the supine position and monitored anesthesia care was initiated. The right was then prepped with ChloraPrep and draped in a standard fashion after a nonsterile tourniquet was placed high up onto the arm. Prophylactic antibiotics in the fo rm of cefazolin were administered. A timeout was performed for safe surgery. The surgical site was marked in the volar wrist creases in line with the radial border of the fourth ray as well as the radial aspect of the wrist overlying the first extensor compartment and the radial styloid.? These 2 areas were then anesthetized with 1% lidocaine with epinephrine.? The limb was then exsanguinated with an Esmarch.? Starting with the carpal tunnel procedure, the volar wrist skin was incised with a 15 blade, approximately 1cm.? The skin only was cut and the deeper tissue was dissected bluntly with a tenotomy scissor, avoiding passing nerve and venous structures.? The fascia was penetrated and opened bluntly.? A two-prong skin hook was placed under this proximal fascial edge.? A series of hamate finders were used to identify and dilate the carpal tunnel.? Synovial elevator was used to free synovial attachments to the underside of the transverse carpal ligament.? My thumb was kept in the palm to adan the distal extent of the carpal tunnel and correctly position the hand.? The Microaire endoscope was inserted without difficulty and without resistance.? Excellent visualization showed horizontally running fibers of the transverse carpal ligament (TCL).? The distal extent of the TCL was visualized and the end of the scope palpated with the thumb.? The blade was elevated and withdrawn from distal to proximal.? The TCL was split into two flaps.? The endoscope was reinserted to confirm complete release and any remnant ligament was incised.? The scope was withdrawn and the proximal aspect of the carpal tunnel was grossly inspected and appeared release with the median nerve visible.? The antebrachial fascia at the level of the wrist was then freed from the overlying skin and then the underlying median nerve with blunt dissection.? This was transected longitudinally for about 3cm proximal to the wrist incision.? The wound was then irrigated with easy flow of irrigant distally and proximally.? The incision was closed with a single 4-0 Nylon suture.? Attention was then turned to the de Quervain's release. A 2 cm incision was made longitudinally over the radial styloid. The skin was incised only. The deep tissue subcutaneous fat was dissected with a tenotomy scissors trying to protect branches of the superficial radial nerve. Any branches that were identified were retracted out of the way. The first compartment extensor tendons were then identified. The distal aspect of the first compartment was noted and were released. This release was performed more on the dorsal side to prevent tendon subluxation. The entirety of the first extensor compartment was then released. The slips of the abductor pollicis longus tendon were inspected. They removed to confirm the appropriate motion of the thumb. The extensor pollicis brevis tendon was then identified. There was once up compartment encasing the extensor pollicis brevis tendon. It was fully released. Traction on the tendon was also used to confirm appropriate extension of the thumb confirming the release of the appropriate tendon. The dorsal radial surface of the radius was once again inspected to make sure there is no other sub- compartments or other restrictions to tendon motion. The wound was then thoroughly irrigated. The deep tissue was closed with a 3-0 Vicryl. The skin was closed with a running subjective 4-0 Monocryl. The tourniquet is released without significant bleeding. The hand was dressed with 4 x 4's, Kerlex and CALEB wrap into a soft thumb spica splint. All counts were correct. Patient was transferred back to same day surgery area in stable condition.
== END 2022-03-10 16:11 | disposition home or self-care (01) ==
PROVIDERS: Visit Provider Student in an Organized Health Care Education/Training Program
PROC: 01N54ZZ Release Median Nerve, Percutaneous Endoscopic Approach (ICD-10-PCS; CPT 29848; principal; 2022-03-10 14:15)
PROC: (CPT 25000; 2022-03-10 14:15)
DX: G56.01 Carpal tunnel syndrome, right upper limb (principal); M65.4 Radial styloid tenosynovitis [de Quervain]; E66.01 Morbid (severe) obesity due to excess calories; Z68.42 Body mass index [BMI] 45.0-49.9, adult
CPT/HCPCS: 29848; 25000; J0690; J1100; J1885; J2250; J2405; J2704

== ENCOUNTER 2022-03-13 12:37 | Emergency (ER) | payer MEDICAID, SELFPAY ==
[2022-03-13 12:50] VITALS: BP 137/87; PULSE 87; RESP 18; TEMP 36.9; O2SAT 99
--- NOTE | 2022-03-13 14:22 | W.ED.GENAD ---
Discharge Plan Disposition Patient Disposition: Home Condition: Stable Discharge Details Clinical Impression: Change or removal of surgical wound dressing Primary Care Provider: None,None ED Provider: Tiffanie Aleman Home Meds and New Rx's Prescriptions: No Action sertraline 100 mg tablet 100 mg PO DAILY Qty: 30 1RF valacyclovir [Valtrex] 1 gram tablet 1,000 mg PO BID Qty: 7 6RF levonorgestrel-ethinyl estrad 0.1-20 mg-mcg tablet 1 tab PO DAILY Qty: 84 4RF ProAir RespiClick 90 mcg/actuation aerosol powdr breath activated 2 inh inhalation Q6H PRN (Reason: shortness of breath or wheezing) Qty: 1 0RF (DME) blood-glucose meter [FreeStyle Lite Meter] Kit See Rx Instructions .Route Qty: 1 0RF Rx Instructions: As directed (DME) FreeStyle Lite Strips Strip See Rx Instructions .Route Qty: 100 3RF Rx Instructions: QID (DME) lancets [FreeStyle Lancets] 28 gauge misc See Rx Instructions .Route Qty: 100 3RF Rx Instructions: QID acetaminophen 500 mg tablet 500 mg PO Q6H PRN (Reason: pain) Qty: 60 2RF ibuprofen 600 mg tablet 600 mg PO TID PRN (Reason: pain) Qty: 60 0RF hydrocodone-acetaminophen 5-325 mg tablet 1 tab PO Q6H PRN (Reason: severe pain) Qty: 4 0RF Rx Instructions: Take one tablet up to every 6 hours as needed for severe postoperative pain acetaminophen [Tylenol] 325 mg Tablet 325 mg levothyroxine 150 mcg tablet 200 mcg PO DAILY Label Comments: pt reports she is taking 250 mcg Discharge Instructions Instructions: Care For Your Stitches (ED) Additional Instructions: Dressing was changed today. Please continue to keep your Ortho appointment follow-up as previously scheduled. Keep clean and dry. Return for any signs of infection such as red streaks, swelling, drainage, fever chills or any concerns. Referrals: Aneudy Borja MD [ [facility] STAFF PHYSICIAN] - Carlos Sotomayor MD [ [facility] STAFF PHYSICIAN] - Discharge Data Discharge Date/Time-TO BE ENTERED AT DEPARTURE: 03/13/22 14:43 Medical Decision Making 26-year-old female presents 48 hours status post carpal tunnel release to her right wrist. She reports that her child spit up on her dressing and she removed it prior to arrival. She would like a dressing replaced. There is 2 areas of stitches without induration, surrounding swelling or drainage. There is an iodoform dressing still intact on the radial aspect of her wrist. No additional iodoform dressing applied by staff services manager 4 x 4's and Kerfrancisca. I did discuss to continue to keep her appointment with Ortho as previously scheduled. She verbalizes understanding. Medical Records Medical records reviewed: Yes I reviewed the patient's medical records. HPI General Mode of arrival: ambulatory. Date/Time Provider Initiated Documentation: 03/13/22 12:51. Limitations to Documentation: no limitations. Information obtained by: patient, RN notes reviewed and old records reviewed. HPI Narrative: Patient is here for a dressing recheck. Patient reports that her child vomited on the dressing today she removed the dressing and would like it rewrapped. She is due to have a dressing change on . She is status post carpal tunnel release surgery and tendinitis surgery to her right wrist. No evidence of induration or erythema or signs of infection noted to the incisions. Related Data Home Medications Medication Instructions Recorded Confirmed albuterol sulfate 90 mcg/actuation 2 inh inhalation Q6H PRN shortness 04/29/21 03/13/22 breath activated powder inhaler of breath or wheezing #1 ea (ProAir RespiClick) blood sugar diagnostic (FreeStyle #100 ea 05/22/21 03/09/22 Lite Strips) blood-glucose meter (FreeStyle #1 ea 05/22/21 03/09/22 Lite Meter kit) lancets 28 gauge (FreeStyle #100 ea 05/22/21 03/09/22 Lancets) levothyroxine 150 mcg tablet 200 mcg PO DAILY 05/27/21 03/13/22 sertraline 100 mg tablet 100 mg PO DAILY #30 tabs 12/26/21 03/13/22 valacyclovir 1 gram tablet 1,000 mg PO BID #7 tabs 12/26/21 03/13/22 (Valtrex) levonorgestrel-ethinyl estradiol 1 tab PO DAILY #84 tabs 02/11/22 03/13/22 0.1 mg-20 mcg tablet acetaminophen 325 mg tablet 325 mg 03/10/22 (Tylenol) acetaminophen 500 mg tablet 500 mg PO Q6H PRN pain #60 tabs 03/10/22 03/13/22 hydrocodone 5 mg-acetaminophen 325 1 tab PO Q6H PRN severe pain #4 03/10/22 03/13/22 mg tablet tabs ibuprofen 600 mg tablet 600 mg PO TID PRN pain #60 tabs 03/10/22 03/13/22 Previous Rx's Medication Instructions Recorded albuterol sulfate 90 mcg/actuation 2 inh inhalation Q6H PRN shortness 04/29/21 breath activated powder inhaler of breath or wheezing #1 ea (ProAir RespiClick) blood sugar diagnostic (FreeStyle #100 ea 05/22/21 Lite Strips) blood-glucose meter (FreeStyle #1 ea 05/22/21 Lite Meter kit) lancets 28 gauge (FreeStyle #100 ea 05/22/21 Lancets) sertraline 100 mg tablet 100 mg PO DAILY #30 tabs 12/26/21 valacyclovir 1 gram tablet 1,000 mg PO BID #7 tabs 12/26/21 (Valtrex) levonorgestrel-ethinyl estradiol 1 tab PO DAILY #84 tabs 02/11/22 0.1 mg-20 mcg tablet acetaminophen 500 mg tablet 500 mg PO Q6H PRN pain #60 tabs 03/10/22 hydrocodone 5 mg-acetaminophen 325 1 tab PO Q6H PRN severe pain #4 03/10/22 mg tablet tabs ibuprofen 600 mg tablet 600 mg PO TID PRN pain #60 tabs 03/10/22 Allergies Allergy/AdvReac Type Severity Reaction Status Date / Time No Known Allergies Allergy Verified 03/13/22 14:08 General Stated Complaint: Recheck JEANETTE: 5 Review of Systems Musculoskeletal Musculoskeletal: Reports as per HPI Integumentary/Breasts Skin/Breast: Reports wounds (here for dressing change) PFSH All Active Problems (Updated 03/13/22 @ 14:31 by Tiffanie Aleman NP) Change or removal of surgical wound dressing (Acute) Carpal tunnel syndrome, right (Acute) Carpal tunnel syndrome, left (Acute) TSH elevation (Acute) Post depression (Acute) H/O cold sores (Acute) De Quervain's tenosynovitis, right (Acute) De Quervain's tenosynovitis, left (Acute) Gestational diabetes mellitus (GDM) affecting (Acute) BMI 50.0-59.9, adult (Acute) Elevated liver enzymes (Acute) Fatty liver (Acute) incidental finding, patient reports she was heavy drinker in past and is aware of this finding Graves' disease (Acute) Recurrent genital HSV (herpes simplex virus) infection (Acute) Hypothyroidism (Chronic) see Carlos Nuñez MD, diagnosed age 12, graves disease Medical History Acute cholecystitis ADHD (attention deficit hyperactivity disorder) evaluation Asthma Cholangitis due to bile duct calculus with obstruction Choledocholithiasis with obstruction Depression Epigastric abdominal pain Heavy alcohol use ages [age], High BMI 49 History of radioactive iodine thyroid ablation age 14 Intractable abdominal pain Morbidly obese Post depression Right flank pain renal scan is nml, problem resolved Surgical History H/O endoscopic retrograde cholangiopancreatography (~06/17/20) History of cholecystectomy (~02/15/20) History of esophagogastroduodenoscopy (EGD) (~06/2020) Family History Father Yanira's disease Hypertension Diabetes Mother Hypertension Retinal disease Kidney stones Brother Autism Retinal disease Oppositional defiant behavior Brother Retinal disease Brother Autism half brother Niece Autism Nephew Autism Social History Smoking/Tobacco Use Status: Former Tobacco Use Quit Date: 03/01/18 Smoking risk assessment performed?: Yes Alcohol Intake: current Alcohol Intake frequency: a few times a month Alcohol type: wine Details: heavy drinking age [age]. Denies use now. Drug use: Never Substance use type: does not use Current gender identity: female Do you feel safe at home: Yes Do you feel safe in your relationship?: Yes Female Reproductive History Menstrual control method: none History History 2 Para 1 Hx # Term Pregnancies 1 Multiple births 0 Hx # Pregnancies 0 Ectopic pregnancies 0 AB induced 0 Hx Number of Living Children 1 AB spontaneous 0 Past Pregnancies Del. Date GA/Weeks # Preg Succ Route Wgt Sex Labor Lgth Anesthesia Location Prov Complic 08/08/17 40 No vaginal 3827.186 g Female [facility], vanishing twin Delivery Date: 08/08/17 Last Updated by: ROSENDO Corey, Exam Extrem Hand/finger images: 1. Healing surgical incision with sutures in place no surrounding erythema or induration, there is an iodoform dressing over the suture. 2. Healing surgical incision with sutures in place noted, no surrounding induration red streaks or drainage. Course Vital Signs Vital signs: Vital Signs Temperature 36.9 C 03/13/22 12:50 Pulse 87 03/13/22 12:50 Respiratory Rate 18 03/13/22 12:50 Blood Pressure 137/87 03/13/22 12:50 Pulse Oximetry 99 03/13/22 12:50 Temperature 36.9 C 03/13/22 12:50 Temperature Source Skin 03/13/22 12:50 Pulse 87 03/13/22 12:50 Respiratory Rate 18 03/13/22 12:50 Respiratory Effort 03/13/22 12:55 Blood Pressure 137/87 03/13/22 12:50 Blood Pressure Position Sitting 03/13/22 12:50 Pulse Oximetry 99 03/13/22 12:50 Oxygen Delivery Method Room Air 03/13/22 12:50 Oxygen Flow Rate 0 03/13/22 12:50 Pain Level 3 03/13/22 12:50
== END 2022-03-13 14:43 | disposition home or self-care (01) ==
PROVIDERS: Emergency Provider Registered Nurse Emergency
DX: Z48.01 Encounter for change or removal of surgical wound dressing (principal)
CPT/HCPCS: 99281

== ENCOUNTER 2022-03-20 01:44 | Outpatient (CLI) | payer MEDICAID, SELFPAY ==
[2022-03-20 14:51] LABS: FREE T4 1.37 ng/dL (0.76-1.46); TSH 0.79 uIU/mL (0.36-3.74)
== END 2022-03-20 01:45 | disposition home or self-care (01) ==
PROVIDERS: Visit Provider Internal Medicine Endocrinology, Diabetes & Metabolism
DX: E89.0 Postprocedural hypothyroidism (principal)
CPT/HCPCS: 36415; 84439; 84443

== ENCOUNTER 2022-05-02 19:36 | Emergency (ER) | payer MEDICAID, SELFPAY ==
[2022-05-02 19:39] VITALS: BP 107/86; PULSE 122; RESP 16; TEMP 36.4; O2SAT 96
--- NOTE | 2022-05-02 20:00 | DI.CT_ITS ---
Exam(s) CT ABDOMEN PELVIS W EXAM: CT ABDOMEN PELVIS W CLINICAL HISTORY: vomiting, diarrhea, rlq pain, r/o appe. TECHNIQUE: Imaging Protocol: Axial computed tomography images with coronal and sagittal reformatted images were created and reviewed CONTRAST MATERIAL: Intravenous: Omnipaque-350 100cc Oral: None COMPARISON: CT CT CHEST PE ABD PELVIS W from 05/25/2020 FINDINGS: VISUALIZED LUNG BASES: No nodules nor pleural effusions evident. ABDOMEN: There is no ascites. LIVER: There are no focal hepatic lesions evident. No dilated intrahepatic ducts. GALLBLADDER/BILIARY: Gallbladder surgically absent. CBD is not dilated. PANCREAS: No evidence of pancreatic mass nor dilatation of the pancreatic duct. SPLEEN: Spleen size upper normal. No splenic lesions. Splenic and portal veins are patent. ADRENALS: There are no significant adrenal masses. KIDNEYS:No cysts evident. No solid renal masses. No calculi nor hydronephrosis.. ABDOMINAL AORTA: Abdominal aorta is not enlarged. LYMPH NODES:There are slightly enlarged para-aortic lymph nodes. ABDOMINAL WALL: No evidence of significant anterior abdominal wall nor inguinal hernia. GI: There is no evidence of bowel obstruction, free air, nor abscess. PELVIS: GI: No evidence of appendicitis.No evidence of sigmoid diverticulitis. LYMPH NODES: There is no intrapelvic nor inguinal adenopathy. REPRODUCTIVE: Uterus ovaries upper normal size. There is also a peripherally enhancing corpus luteal cyst in the left adnexa. No free fluid in the pelvis. URINARY BLADDER: No calculi nor obvious masses evident OSSEOUS: No fractures and no significant osseous lesions. IMPRESSION: 1. No evidence of acute appendicitis. No diverticulitis. No bowel obstruction. 2. Corpus luteal cyst noted in the left ovary measuring approximately 1.3 cm. 3. No ascites. 4. Other findings as above. RADIATION DOSE DELIVERED: 1,455.39mGy.cm Total DLP DATA REPOSITORY: All CT scans at this facility are submitted to the National Radiology Data Registry (NRDR) Dose Index Registry (DIR) with the [employer] (A[employer]). RADIATION OPTIMIZATION: All CT scans at this facility use at least one of these dose optimization te chniques: automated exposure control; mA and/or kV adjustment per patient size (includes targeted exa ms where dose is matched to clinical indication); or iterative reconstruction.
[2022-05-02 20:09] LABS: Bilirubin Small (Negative); Blood Negative (Negative); Clarity Clear (Clear); Glucose Negative (Negative); Ketones Negative (Negative); Leukocyte Esterase Negative (Negative); Nitrite Negative (Negative); Specific Gravity >= 1.030 (1.005-1.025); Urobilinogen 0.2 mg/dL (Up to 0.2)
[2022-05-02 20:10] LABS: RBC 0-2 HPF (0-2); WBC 0-2 HPF (0-5)
[2022-05-02 20:11] LABS: Bacteria Negative HPF (Negative); C & S Indicated? No; Casts Negative LPF (Negative); Crystals Negative HPF (Negative); Epithelial Cells Few HPF (Negative); Mucus Negative (Negative); Other Cells Negative (Negative)
[2022-05-02] MEDS: Normal Saline 1,000 ML 1000 ML IV (20:22)
--- NOTE | 2022-05-02 20:26 | W.ED.GENAD ---
Discharge Plan Disposition Patient Disposition: Home Condition: Good Discharge Details Clinical Impression: Enteritis, Nausea & vomiting Primary Care Provider: Unknown,Unknown ED Provider: Vinod Villa Home Meds and New Rx's Prescriptions: Continued sertraline 100 mg tablet 100 mg PO DAILY Qty: 30 1RF valacyclovir [Valtrex] 1 gram tablet 1,000 mg PO BID Qty: 7 6RF levonorgestrel-ethinyl estrad 0.1-20 mg-mcg tablet 1 tab PO DAILY Qty: 84 4RF ProAir RespiClick 90 mcg/actuation aerosol powdr breath activated 2 inh inhalation Q6H PRN (Reason: shortness of breath or wheezing) Qty: 1 0RF (DME) blood-glucose meter [FreeStyle Lite Meter] Kit See Rx Instructions .Route Qty: 1 0RF Rx Instructions: As directed (DME) FreeStyle Lite Strips Strip See Rx Instructions .Route Qty: 100 3RF Rx Instructions: QID (DME) lancets [FreeStyle Lancets] 28 gauge misc See Rx Instructions .Route Qty: 100 3RF Rx Instructions: QID acetaminophen 500 mg tablet 500 mg PO Q6H PRN (Reason: pain) Qty: 60 2RF ibuprofen 600 mg tablet 600 mg PO TID PRN (Reason: pain) Qty: 60 0RF acetaminophen [Tylenol] 325 mg Tablet 325 mg levothyroxine 150 mcg tablet 200 mcg PO DAILY Patient Comments: pt reports she is taking 250 mcg Discharge Instructions Instructions: Ondansetron (By mouth), Acute Nausea and Vomiting (ED) Additional Instructions: At this time your symptoms appear consistent with enteritis which is likely from a food you ate to her mild virus. Please avoid any significant food for the next 12 to 24 hours. Stick with frequent sips of liquid over the next 12 to 20 hours, and then gradually transition to small bites of crackers or oatmeal after that. Please take the Zofran as needed for nausea. If you notice any worsening of your symptoms, or any new symptoms such as vomiting, diarrhea, fever, chills, shortness of breath, chest pain, numbness, weakness, or fainting , please return immediately to the emergency department for reevaluation. Please follow up with your primary care provider as soon as possible for reassessment and reevaluation. As always, it was a pleasure participating in your medical care today. Medical Decision Making 26-year-old female with a past medical history of cholecystectomy, Graves' disease with subsequent hypothyroidism after thyroid ablation, gestational diabetes, reactive airway disease, who presents today for evaluation of nausea vomiting and diarrhea. Patient states that her symptoms started 23 hours ago. She had dinner of chicken mashed potatoes and stuffing, which was well cooked, and no other individuals got sick after the meal. At about 9 PM she began having nausea vomiting and diarrhea. She has been vomiting persistently throughout the night and day. No blood in her vomit or stool. She also admits to right lower quadrant as well as generalized abdominal pain. She denies any urinary discomfort. No other complaints at this time. M demonstrates well-appearing female, vital signs are stable aside from mild tachycardia. No hypotension. Abdomen demonstrates tenderness in the right lower quadrant, but also some diffuse component throughout. Differential is concerning for appendicitis, but also includes pancreatitis, viral gastroenteritis. We will rehydrate, treat her pain and nausea, get a CT scan to rule out acute appendectomy, monitor closely and reassess. 9:36 PM Laboratory work-up has returned, no white count or bandemia. Electrolytes stable, urinalysis shows no evidence of infection. Lipase normal. On reassessment after rehydration and Zofran patient feels well. She feels comfortable going home. She has tolerated p.o. CT scan results show no evidence of appendicitis. There is evidence of mild mural thickening of the small bowel. Suggestive of enteritis. This correlates clinically with her symptomatology. With the notable improvement of her clinical exam and assessment, and repeat exam showing no signs of an acute surgical abdomen, patient is stable and appropriate for discharge based on current clinical assessment. I had a long discussion with the patient regarding red flags for which to return. I have extensively reviewed the treatment plan and discharge instructions with the patient. I have addressed all patient concerns at this time. The patient was made aware of what symptoms to monitor for that would warrant a return to the emergency department. Discussed the plan with the patient, they demonstrate verbal understanding and agreement with our assessment and plan at this time. The documentation in this chart was dictated using [employer] dictation software. Please excuse any dictation errors. FINDINGS: Lungs: Mild bibasilar atelectasis. Liver: Unremarkable. No mass. Gallbladder and bile ducts: Gallbladder is surgically absent. No biliary dilation. Pancreas: Unremarkable. No ductal dilation. Spleen: Unremarkable. No splenomegaly. Adrenal glands: Normal. No mass. Kidneys and ureters: Symmetric renal enhancement without mass. No hydronephrosis. Ureters are normal in course and caliber. Stomach and bowel: No evidence of bowel obstruction. Small bowel predominantly decompressed limiting evaluation with mild mural/fold thickening and associated increased prominence of the mesenteric vasculature. No focal colonic mural thickening. Appendix: Within normal limits. Intraperitoneal space: No organized fluid collection in the abdomen or pelvis. No free air. Vasculature: No abdominal aortic aneurysm or dissection. Lymph nodes: Multiple prominent but nonenlarged mesenteric lymph nodes in the central mesentery, possibly reactive but nonspecific. No pathologically enlarged mesenteric or retroperitoneal lymph nodes. Urinary bladder: Bladder decompressed limiting evaluation. Reproductive: Within the left adnexa there is complex peripherally enhancing 1.3 cm cyst which appears crenulated suggestive for corpus luteum. Unremarkable CT appearance of the uterus. Bones/joints: Unremarkable. No acute fracture. Soft tissues: Trace/small fat containing umbilical hernia. IMPRESSION: 1. Appendix within normal limits. 2. Mild mural thickening of the small bowel. May represent changes of incomplete distension versus acute enteritis, nonspecific. Correlate clinically. 3. Complex, peripherally enhancing 1.3 cm left adnexal cyst. CT imaging appearance suggestive for corpus luteum. Thank you for allowing us to participate in the care of your patient. Dictated and Authenticated by: Evan Craig MD 05/02/2022 9:30 PM Eastern Time ([place] & [place]) HPI General Date/Time Provider Initiated Documentation: 05/02/22 19:46. HPI Narrative: 26-year-old female with a past medical history of cholecystectomy, Graves' disease with subsequent hypothyroidism after thyroid ablation, gestational diabetes, reactive airway disease, who presents today for evaluation of nausea vomiting and diarrhea. Patient states that her symptoms started 23 hours ago. She had dinner of chicken mashed potatoes and stuffing, which was well cooked, and no other individuals got sick after the meal. At about 9 PM she began having nausea vomiting and diarrhea. She has been vomiting persistently throughout the night and day. No blood in her vomit or stool. She also admits to right lower quadrant as well as generalized abdominal pain. She denies any urinary discomfort. No other complaints at this time. Related Data Home Medications Medication Instructions Recorded Confirmed albuterol sulfate 90 mcg/actuation 2 inh inhalation Q6H PRN shortness 04/29/21 05/02/22 breath activated powder inhaler of breath or wheezing #1 ea (ProAir RespiClick) blood sugar diagnostic (FreeStyle #100 ea 05/22/21 05/02/22 Lite Strips) blood-glucose meter (FreeStyle #1 ea 05/22/21 05/02/22 Lite Meter kit) lancets 28 gauge (FreeStyle #100 ea 05/22/21 05/02/22 Lancets) levothyroxine 150 mcg tablet 200 mcg PO DAILY 05/27/21 05/02/22 sertraline 100 mg tablet 100 mg PO DAILY #30 tabs 12/26/21 05/02/22 valacyclovir 1 gram tablet 1,000 mg PO BID #7 tabs 12/26/21 05/02/22 (Valtrex) levonorgestrel-ethinyl estradiol 1 tab PO DAILY #84 tabs 02/11/22 05/02/22 0.1 mg-20 mcg tablet acetaminophen 325 mg tablet 325 mg 03/10/22 04/16/22 (Tylenol) acetaminophen 500 mg tablet 500 mg PO Q6H PRN pain #60 tabs 03/10/22 05/02/22 ibuprofen 600 mg tablet 600 mg PO TID PRN pain #60 tabs 03/10/22 05/02/22 Previous Rx's Medication Instructions Recorded albuterol sulfate 90 mcg/actuation 2 inh inhalation Q6H PRN shortness 04/29/21 breath activated powder inhaler of breath or wheezing #1 ea (ProAir RespiClick) blood sugar diagnostic (FreeStyle #100 ea 05/22/21 Lite Strips) blood-glucose meter (FreeStyle #1 ea 05/22/21 Lite Meter kit) lancets 28 gauge (FreeStyle #100 ea 05/22/21 Lancets) sertraline 100 mg tablet 100 mg PO DAILY #30 tabs 12/26/21 valacyclovir 1 gram tablet 1,000 mg PO BID #7 tabs 12/26/21 (Valtrex) levonorgestrel-ethinyl estradiol 1 tab PO DAILY #84 tabs 02/11/22 0.1 mg-20 mcg tablet acetaminophen 500 mg tablet 500 mg PO Q6H PRN pain #60 tabs 03/10/22 ibuprofen 600 mg tablet 600 mg PO TID PRN pain #60 tabs 03/10/22 Allergies Allergy/AdvReac Type Severity Reaction Status Date / Time No Known Allergies Allergy Verified 05/02/22 19:43 General Stated Complaint: Nausea/Vomit/Diar JEANETTE: 3 Review of Systems All systems reviewed & are unremarkable except as noted in HPI and below PFSH All Active Problems (Updated 05/02/22 @ 21:38 by Vinod Villa DO) Enteritis (Acute) Nausea & vomiting (Acute) Carpal tunnel syndrome, right (Acute) S/P ECTR: 03/10/2022 Carpal tunnel syndrome, left (Acute) TSH elevation (Acute) Post depression (Acute) H/O cold sores (Acute) De Quervain's tenosynovitis, right (Acute) S/P Release: 03/10/2022 De Quervain's tenosynovitis, left (Acute) Gestational diabetes mellitus (GDM) affecting (Acute) BMI 50.0-59.9, adult (Acute) Elevated liver enzymes (Acute) Fatty liver (Acute) incidental finding, patient reports she was heavy drinker in past and is aware of this finding Graves' disease (Acute) Recurrent genital HSV (herpes simplex virus) infection (Acute) Hypothyroidism (Chronic) see Carlos Nuñez MD, diagnosed age 12, graves disease Medical History Acute cholecystitis ADHD (attention deficit hyperactivity disorder) evaluation Asthma Cholangitis due to bile duct calculus with obstruction Choledocholithiasis with obstruction Depression Epigastric abdominal pain Heavy alcohol use ages [age], High BMI 49 History of radioactive iodine thyroid ablation age 14 Intractable abdominal pain Morbidly obese Post depression Right flank pain renal scan is nml, problem resolved Surgical History H/O endoscopic retrograde cholangiopancreatography (~06/17/20) History of cholecystectomy (~02/15/20) History of esophagogastroduodenoscopy (EGD) (~06/2020) Family History Father Yanira's disease Hypertension Diabetes Mother Hypertension Retinal disease Kidney stones Brother Autism Retinal disease Oppositional defiant behavior Brother Retinal disease Brother Autism half brother Niece Autism Nephew Autism Social History Smoking/Tobacco Use Status: Former Tobacco Use Quit Date: 03/01/18 Smoking risk assessment performed?: Yes Alcohol Intake: current Alcohol Intake frequency: a few times a month Alcohol type: wine Details: heavy drinking age [age]. Denies use now. Drug use: Never Substance use type: does not use Current gender identity: female Do you feel safe at home: Yes Do you feel safe in your relationship?: Yes Female Reproductive History Menstrual control method: none History History 2 Para 1 Hx # Term Pregnancies 1 Multiple births 0 Hx # Pregnancies 0 Ectopic pregnancies 0 AB induced 0 Hx Number of Living Children 1 AB spontaneous 0 Past Pregnancies Del. Date GA/Weeks # Preg Succ Route Wgt Sex Labor Lgth Anesthesia Location Prov Complic 08/08/17 40 No vaginal 3827.186 g Female 10 [facility], vanishing twin Delivery Date: 08/08/17 Last Updated by: ROSENDO Corey, Exam Narrative Exam Narrative: 1.Const: Well-nourished, Well-developed, appearing stated age 2.Eyes: PERRL, no conjunctival injection, and symmetrical lids. 3.ENT: Atraumatic external nose and ears. Moist MM. Neck: Symmetric, trachea midline, No thyromegaly. 4.CVS: +S1/S2, No murmurs or gallops. Peripheral pulses 2+ and equal in all extremities. Brisk capillary refill in all extremities. 5.RESP: Unlabored respiratory effort. Clear to auscultation bilaterally. No wheezes rales or rhonchi 6.GI: Soft, no CVA tenderness. nondistended, no guarding or rebound, mild to moderate right lower quadrant tenderness, with radiation throughout the left lower and right mid abdomen. 7.MSK: Normocephalic/Atraumatic, Extremities w/o deformity or ttp No cyanosis or clubbing, Normal movement of all extremities 8.Skin: Warm, Dry. No rashes or lesions. 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 Sensation grossly intact, no focal neurologic deficits. 10.Psych: (AAO) x3. Appropriate mood and affect Course Vital Signs Vital signs: Vital Signs Temperature 36.4 C L 05/02/22 19:39 Pulse 122 H 05/02/22 19:39 Respiratory Rate 16 05/02/22 19:39 Blood Pressure 107/86 05/02/22 19:39 Pulse Oximetry 96 05/02/22 19:39 Temperature 36.4 C L 05/02/22 19:39 Temperature Source Temporal Artery Scan 05/02/22 19:39 Pulse 122 H 05/02/22 19:39 Respiratory Rate 16 05/02/22 19:39 Respiratory Effort Normal 05/02/22 19:39 Blood Pressure 107/86 05/02/22 19:39 Blood Pressure Position Sitting 05/02/22 19:39 Pulse Oximetry 96 05/02/22 19:39 Oxygen Delivery Method Room Air 05/02/22 19:39 Oxygen Flow Rate 0 05/02/22 19:39 Pain Level 8 05/02/22 19:39 Lab/Test Results Lab/Test Results: Laboratory Tests Range/Units 05/02/22 19:50 Urine Color (Yellow) Yellow Urine Clarity (Clear) Clear Urine pH (5-8) 6.0 Ur Specific [place] (1.005-1.025) >= 1.030 H Urine Protein (Negative) mg/dL 30 H Urine Ketones (Negative) mg/dL Negative Urine Blood (Negative) Negative Urine Nitrite (Negative) Negative Urine Bilirubin (Negative) Small H Urine Urobilinogen (Up to 0.2) mg/dL 0.2 Ur Leukocyte Esterase (Negative) Negative Urine RBC (0-2) HPF 0-2 Urine WBC (0-5) HPF 0-2 Ur Epithelial Cells (Negative) HPF Few Urine Crystals (Negative) HPF Negative Urine Bacteria (Negative) HPF Negative Urine Casts (Negative) LPF Negative Urine Mucus (Negative) Negative Urine Other (Negative) Negative Ur Culture Indicated? No Urine Glucose (Negative) mg/dL Negative
[2022-05-02] MEDS: Dicyclomine 10 MG CAP PO (20:28)
[2022-05-02] MEDS: Ketorolac 15 MG/ML VIAL IVP (20:28)
[2022-05-02] MEDS: Ondansetron 4 MG/2 ML VIAL IVP (20:29)
[2022-05-02 20:49] LABS: Abs Immature Grans 0.03 10^3/uL (0.0-0.06); Absolute Basophil Count 0.03 10^3/uL (0.0-0.2); Absolute Eosinophil Count 0.03 10^3/uL (0.0-0.7); Absolute Lymphocyte Count 1.27 10^3/uL (1.2-3.4); Absolute Monocyte Count 0.51 10^3/uL (0.1-0.8); Absolute Neutrophil Count 5.25 10^3/uL (1.2-6.7); Basophils % 0.4; Eosinophils % 0.4; HCT 46.6 % (36.0-46.0); HGB 15.1 g/dL (11.2-15.7); Immature Grans % 0.4; Lymphocytes % 17.8; MCH 27.9 pg (27.0-33.0); MCHC 32.4 % (32.0-36.0); MCV 86 fL (80-95); MPV 10.2 fL (8.0-11.0); Monocytes % 7.2; Neutrophils % 73.8; Platelet Count 409 10^3/uL (130-400); RBC 5.42 10^6/uL (3.93-5.22); RDW 13.3 % (11.7-14.6); RDW-SD 41.6 fL; WBC 7.12 10^3/uL (4.4-10.8)
[2022-05-02] MEDS: Normal Saline - Diluent 50 ML VIAL IJ (20:51)
[2022-05-02 20:53] LABS: ALT 58 U/L (14-59); AST 19 U/L (15-37); Albumin 3.9 g/dL (3.4-5.0); Alkaline Phosphatase 99 U/L (46-116); Anion Gap 11.9 mmol/L (3-11); BUN 10 mg/dL (7-18); Bilirubin, Total 0.6 mg/dL (0.2-1.0); CO2 24.1 mmol/L (21.0-32.0); Calcium 8.8 mg/dL (8.5-10.1); Chloride 103 mmol/L (98-107); Glucose 100 mg/dL (74-106); Lipase 23 U/L (16-77); Potassium 3.5 mmol/L (3.5-5.1); Sodium 139 mmol/L (136-145); Total Protein 8.1 g/dL (6.4-8.2)
[2022-05-02] MEDS: Omnipaque 350 MG/ML 100 ML BTL IJ (20:55)
--- NOTE | 2022-05-02 21:30 | DI.VRAD_ITS ---
PROCEDURE INFORMATION: Exam: CT Abdomen And Pelvis With Contrast Exam date and time: 05/02/2022 8:51 PM Age: 26 years old Clinical indication: Vomiting and other: Diarrhea, rlq pain, R/O appe; Prior surgery; Surgery date: 6+ months TECHNIQUE: Imaging protocol: Computed tomography of the abdomen and pelvis with contrast. Contrast material: 350; Contrast volume: 100 ml; Contrast route: INTRAVENOUS (IV); COMPARISON: MR ABDOMEN WO 06/14/2020 10:43 AM FINDINGS: Lungs: Mild bibasilar atelectasis. Liver: Unremarkable. No mass. Gallbladder and bile ducts: Gallbladder is surgically absent. No biliary dilation. Pancreas: Unremarkable. No ductal dilation. Spleen: Unremarkable. No splenomegaly. Adrenal glands: Normal. No mass. Kidneys and ureters: Symmetric renal enhancement without mass. No hydronephrosis. Ureters are normal in course and caliber. Stomach and bowel: No evidence of bowel obstruction. Small bowel predominantly decompressed limiting evaluation with mild mural/fold thickening and associated increased prominence of the mesenteric vasculature. No focal colonic mural thickening. Appendix: Within normal limits. Intraperitoneal space: No organized fluid collection in the abdomen or pelvis. No free air. Vasculature: No abdominal aortic aneurysm or dissection. Lymph nodes: Multiple prominent but nonenlarged mesenteric lymph nodes in the central mesentery, possibly reactive but nonspecific. No pathologically enlarged mesenteric or retroperitoneal lymph nodes. Urinary bladder: Bladder decompressed limiting evaluation. Reproductive: Within the left adnexa there is complex peripherally enhancing 1.3 cm cyst which appears crenulated suggestive for corpus luteum. Unremarkable CT appearance of the uterus. Bones/joints: Unremarkable. No acute fracture. Soft tissues: Trace/small fat containing umbilical hernia. IMPRESSION: 1. Appendix within normal limits. 2. Mild mural thickening of the small bowel. May represent changes of incomplete distension versus acute enteritis, nonspecific. Correlate clinically. 3. Complex, peripherally enhancing 1.3 cm left adnexal cyst. CT imaging appearance suggestive for corpus luteum. Dictated and Authenticated by: Evan Craig MD. Ordering:BRISEIDA Brock MD
[2022-05-02] MEDS: Ondansetron O.D.T. 4 MG TABEF, 3 TABS/BTL PO (21:47)
[2022-05-02 21:51] VITALS: BP 121/79; PULSE 79; RESP 18; TEMP 36.7; O2SAT 99
== END 2022-05-02 21:53 | disposition home or self-care (01) ==
PROVIDERS: Emergency Provider Student in an Organized Health Care Education/Training Program
DX: K52.9 Noninfective gastroenteritis and colitis, unspecified (principal); J45.909 Unspecified asthma, uncomplicated; E03.9 Hypothyroidism, unspecified; R00.0 Tachycardia, unspecified; Z90.49 Acquired absence of other specified parts of digestive tract
CPT/HCPCS: 36415; 80053; 81025; 83690; 96361; 96374; 96375; 99285; 74177; 81003; 81015; 85025; 99284; J1885; J2405; J3490

== ENCOUNTER 2022-06-04 15:31 | Outpatient (REF) | payer MEDICAID, SELFPAY ==
[2022-06-04 15:37] LABS: Abs Immature Grans 0.01 10^3/uL (0.0-0.06); Absolute Basophil Count 0.04 10^3/uL (0.0-0.2); Absolute Eosinophil Count 0.15 10^3/uL (0.0-0.7); Absolute Lymphocyte Count 1.85 10^3/uL (1.2-3.4); Absolute Monocyte Count 0.38 10^3/uL (0.1-0.8); Absolute Neutrophil Count 3.45 10^3/uL (1.2-6.7); Basophils % 0.7; Eosinophils % 2.6; Immature Grans % 0.2; Lymphocytes % 31.5; MCH 28.1 pg (27.0-33.0); MCHC 32.5 % (32.0-36.0); MCV 86 fL (80-95); MPV 10.3 fL (8.0-11.0); Monocytes % 6.5; Neutrophils % 58.5; Platelet Count 363 10^3/uL (130-400); RBC 4.63 10^6/uL (3.93-5.22); RDW 14.2 % (11.7-14.6); RDW-SD 45.1 fL; WBC 5.88 10^3/uL (4.4-10.8)
[2022-06-04 16:16] LABS: Vitamin D 25 Total 16.3 ng/mL (30-100)
[2022-06-04 16:17] LABS: ALT 68 U/L (14-59); AST 24 U/L (15-37); Albumin 3.5 g/dL (3.4-5.0); Alkaline Phosphatase 99 U/L (46-116); Anion Gap 9.9 mmol/L (3-11); BUN 10 mg/dL (7-18); Bilirubin, Total 0.3 mg/dL (0.2-1.0); CO2 26.1 mmol/L (21.0-32.0); CREATININE 0.8 mg/dL (0.55-1.02); Calcium 8.8 mg/dL (8.5-10.1); Calculated LDL 95 mg/dL (<100); Chloride 108 mmol/L (98-107); Cholesterol 172 mg/dL (<200); Estimated GFR 102.86 (mL/min/1.73m2); Glucose 93 mg/dL (74-106); HDL Cholesterol 49 mg/dL (40-60); Potassium 4.2 mmol/L (3.5-5.1); Sodium 144 mmol/L (136-145); TSH (W/Ref FT4) 18.26 uIU/mL (0.36-3.74); Triglyceride 144 mg/dL (<150); Vitamin B12 412 pg/mL (193-986)
[2022-06-04 16:22] LABS: Hemoglobin A1C 5.3 % (<5.7)
[2022-06-04 16:38] LABS: FREE T4 0.85 ng/dL (0.76-1.46)
== END 2022-06-04 15:32 | disposition home or self-care (01) ==
LOC: NCHCN 15:31
PROVIDERS: Visit Provider Nurse Practitioner Family
DX: F41.8 Other specified anxiety disorders (principal); F90.8 Attention-deficit hyperactivity disorder, other type; E03.9 Hypothyroidism, unspecified; J45.998 Other asthma; R79.89 Other specified abnormal findings of blood chemistry; E66.8 Other obesity; E55.9 Vitamin D deficiency, unspecified; Z86.39 Personal history of other endocrine, nutritional and metabolic disease
CPT/HCPCS: 80053; 80061; 82306; 82607; 83036; 84439; 84443; 85025

== ENCOUNTER 2022-07-15 11:24 | Emergency (ER) | payer MEDICAID, SELFPAY ==
[2022-07-15 11:47] VITALS: PULSE 76; RESP 18; TEMP 36.5; O2SAT 100
[2022-07-15 11:49] VITALS: BP 120/79
--- NOTE | 2022-07-15 12:00 | DI.RAD_ITS ---
Exam(s) XR WRIST RT COMPLETE EXAM: XR WRIST RT COMPLETE CLINICAL HISTORY: Wrist pain. TECHNIQUE: 2D digital imaging was performed. Three views. COMPARISON: No exams were available for comparison FINDINGS: BONES: No acute fracture is present. No bony destructive lesion is seen. JOINTS: The carpal bones are normally aligned. SOFT TISSUE: Normal. IMPRESSION: Unremarkable radiographs of the right wrist. DATA REPOSITORY: RADIATION DOSE DELIVERED:
--- NOTE | 2022-07-15 12:02 | ED.GENADUL_ITS ---
Discharge Plan Disposition Patient Disposition: Home Condition: Stable Discharge Details Clinical Impression: Right wrist sprain Primary Care Provider: DAYAN MOJICA ED Provider: Tiffanie Aleman Home Meds and New Rx's Prescriptions: No Action sertraline 100 mg tablet 100 mg PO DAILY Qty: 30 1RF Patient Comments: not taking valacyclovir [Valtrex] 1 gram tablet 1,000 mg PO BID Qty: 7 6RF levonorgestrel-ethinyl estrad 0.1-20 mg-mcg tablet 1 tab PO DAILY Qty: 84 4RF ProAir RespiClick 90 mcg/actuation aerosol powdr breath activated 2 inh inhalation Q6H PRN (Reason: shortness of breath or wheezing) Qty: 1 0RF (DME) blood-glucose meter [FreeStyle Lite Meter] Kit See Rx Instructions .Route Qty: 1 0RF Rx Instructions: As directed (DME) FreeStyle Lite Strips Strip See Rx Instructions .Route Qty: 100 3RF Rx Instructions: QID (DME) lancets [FreeStyle Lancets] 28 gauge misc See Rx Instructions .Route Qty: 100 3RF Rx Instructions: QID acetaminophen 500 mg tablet 500 mg PO Q6H PRN (Reason: pain) Qty: 60 2RF ibuprofen 600 mg tablet 600 mg PO TID PRN (Reason: pain) Qty: 60 0RF acetaminophen [Tylenol] 325 mg Tablet 325 mg levothyroxine 150 mcg tablet 200 mcg PO DAILY Patient Comments: pt reports she is taking 250 mcg Discharge Instructions Instructions: Wrist Sprain (ED) Additional Instructions: X-rays are within normal limits. Rest ice compression elevation. Wear the splint as needed for comfort. Please take Tylenol or Ibuprofen with food every 4-6 hours as needed for pain and swelling. Referrals: DAYAN MOJICA, OB/GYN [Primary Care Provider] - 2 weeks Medical Decision Making 26-year-old female presents to the ER with chief complaint of right wrist pain after lifting a heavy box yesterday. She does have a history of surgery on this wrist including tendinitis release and carpal tunnel. She did not take any medications prior to arrival. Past medical history includes Graves' disease, hypothyroidism and obesity. X-ray ordered, I do suspect wrist sprain we will give a splint and ibuprofen ordered. This text was generated using Jirafeation system, please disregard any oddities of phrase or misspellings. HPI General Mode of arrival: ambulatory . Date/Time Provider Initiated Documentation: 07/15/22 12:02 . Limitations to Documentation: no limitations . Information obtained by: patient, RN notes reviewed and old records reviewed . HPI Narrative: 26-year-old female presents to the ER with chief complaint of right wrist pain after lifting a heavy box yesterday. She does have a history of surgery on this wrist including tendinitis release and carpal tunnel. She did not take any medications prior to arrival. Past medical history includes Graves' disease, hypothyroidism and obesity. Related Data Home Medications Medication Instructions Recorded Confirmed albuterol sulfate 90 mcg/actuation 2 inh inhalation Q6H PRN shortness 04/29/21 07/15/22 breath activated powder inhaler of breath or wheezing #1 ea (ProAir RespiClick) blood sugar diagnostic (FreeStyle #100 ea 05/22/21 05/02/22 Lite Strips) blood-glucose meter (FreeStyle #1 ea 05/22/21 05/02/22 Lite Meter kit) lancets 28 gauge (FreeStyle #100 ea 05/22/21 05/02/22 Lancets) levothyroxine 150 mcg tablet 200 mcg PO DAILY 05/27/21 07/15/22 sertraline 100 mg tablet 100 mg PO DAILY #30 tabs 12/26/21 07/15/22 valacyclovir 1 gram tablet 1,000 mg PO BID #7 tabs 12/26/21 07/15/22 (Valtrex) levonorgestrel-ethinyl estradiol 1 tab PO DAILY #84 tabs 02/11/22 07/15/22 0.1 mg-20 mcg tablet acetaminophen 325 mg tablet 325 mg 03/10/22 04/16/22 (Tylenol) acetaminophen 500 mg tablet 500 mg PO Q6H PRN pain #60 tabs 03/10/22 05/02/22 ibuprofen 600 mg tablet 600 mg PO TID PRN pain #60 tabs 03/10/22 07/15/22 Previous Rx's Medication Instructions Recorded albuterol sulfate 90 mcg/actuation 2 inh inhalation Q6H PRN shortness 04/29/21 breath activated powder inhaler of breath or wheezing #1 ea (ProAir RespiClick) blood sugar diagnostic (FreeStyle #100 ea 05/22/21 Lite Strips) blood-glucose meter (FreeStyle #1 ea 05/22/21 Lite Meter kit) lancets 28 gauge (FreeStyle #100 ea 05/22/21 Lancets) sertraline 100 mg tablet 100 mg PO DAILY #30 tabs 12/26/21 valacyclovir 1 gram tablet 1,000 mg PO BID #7 tabs 12/26/21 (Valtrex) levonorgestrel-ethinyl estradiol 1 tab PO DAILY #84 tabs 02/11/22 0.1 mg-20 mcg tablet acetaminophen 500 mg tablet 500 mg PO Q6H PRN pain #60 tabs 03/10/22 ibuprofen 600 mg tablet 600 mg PO TID PRN pain #60 tabs 03/10/22 Allergies Allergy/AdvReac Type Severity Reaction Status Date / Time No Known Allergies Allergy Verified 07/15/22 11:48 General Stated Complaint: Orthopedic JEANETTE: 4 Review of Systems All systems reviewed & are unremarkable except as noted in HPI and below PFSH All Active Problems (Updated 07/15/22 @ 12:43 by Tiffanie Aleman NP) Right wrist sprain (Acute) Carpal tunnel syndrome, right (Acute) S/P ECTR: 03/10/2022 Carpal tunnel syndrome, left (Acute) TSH elevation (Acute) Post depression (Acute) H/O cold sores (Acute) De Quervain's tenosynovitis, right (Acute) S/P Release: 03/10/2022 De Quervain's tenosynovitis, left (Acute) Gestational diabetes mellitus (GDM) affecting (Acute) BMI 50.0-59.9, adult (Acute) Elevated liver enzymes (Acute) Fatty liver (Acute) incidental finding, patient reports she was heavy drinker in past and is aware of this finding Graves' disease (Acute) Recurrent genital HSV (herpes simplex virus) infection (Acute) Hypothyroidism (Chronic) see Carlos Nuñez MD, diagnosed age 12, graves disease Medical History Acute cholecystitis ADHD (attention deficit hyperactivity disorder) evaluation Asthma Cholangitis due to bile duct calculus with obstruction Choledocholithiasis with obstruction Depression Epigastric abdominal pain Heavy alcohol use ages [age], High BMI 49 History of radioactive iodine thyroid ablation age 14 Intractable abdominal pain Morbidly obese Post depression Right flank pain renal scan is nml, problem resolved Surgical History H/O endoscopic retrograde cholangiopancreatography (~06/17/20) History of cholecystectomy (~02/15/20) History of esophagogastroduodenoscopy (EGD) (~06/2020) Family History Father Yanira's disease Hypertension Diabetes Mother Hypertension Retinal disease Kidney stones Brother Autism Retinal disease Oppositional defiant behavior Brother Retinal disease Brother Autism half brother Niece Autism Nephew Autism Social History Smoking/Tobacco Use Status: Former Tobacco Use Quit Date: 03/01/18 Smoking risk assessment performed?: Yes Alcohol Intake: current Alcohol Intake frequency: a few times a month Alcohol type: wine Details: heavy drinking age [age]. Denies use now. Drug use: Never Substance use type: does not use Current gender identity: female Do you feel safe at home: Yes Do you feel safe in your relationship?: Yes Female Reproductive History Menstrual control method: none History History 2 Para 1 Hx # Term Pregnancies 1 Multiple births 0 Hx # Pregnancies 0 Ectopic pregnancies 0 AB induced 0 Hx Number of Living Children 1 AB spontaneous 0 Past Pregnancies Del. Date GA/Weeks # Preg Succ Route Wgt Sex Labor Lgth Anesth esia Location Prov [facility] 08/08/17 40 No vaginal 3827.186 g Female [facility], vanishing twin Delivery Date: 08/08/17 Last Updated by: ROSENDO Corey Exam Extrem Right upper extremity: wrist Details: tenderness; no deformity Course Vital Signs Vital signs: Vital Signs Temperature 36.5 C 07/15/22 11:47 Pulse 76 07/15/22 11:47 Respiratory Rate 18 07/15/22 11:47 Pulse Oximetry 100 07/15/22 11:47 Temperature 36.5 C 07/15/22 11:47 Temperature Source Tympanic 07/15/22 11:47 Pulse 76 07/15/22 11:47 Respiratory Rate 18 07/15/22 11:47 Respiratory Effort Normal, Non-Labored 07/15/22 11:48 Blood Pressure 120/79 07/15/22 11:49 Pulse Oximetry 100 07/15/22 11:47 Oxygen Delivery Method Room Air 07/15/22 11:47 Oxygen Flow Rate 0 07/15/22 11:47 PAWSS Have you Been Recently Intoxicated or Drunk Within the Last 30 days?: No Have you Ever Experienced Previous Episodes of Alcohol Withdrawal?: No Have you ever Experienced Withdrawal Seizures?: No Have you ever Experienced Delirium Tremens(DT)s?: No Have you ever undergone Alcohol Rehabilitation Treatment (i.e, inpt ot outpatient treatment programs)?: No Have you ever Experienced Blackouts?: No Have you ever Combined Alcohol with other Downers within the last 90 days?: No Have you ever Combined Alcohol with any other Substance of Abuse during the last 90 days?: No Positive Blood Alcohol level on Presentation? [PCS.BAL]: No Evidence of Increased Autonomic Activity (i.e. HR>120, tremor, sweating, agitation, nausea)?: No Result: 0
[2022-07-15] MEDS: Ibuprofen 600 MG TAB PO (12:45)
== END 2022-07-15 12:55 | disposition home or self-care (01) ==
PROVIDERS: Emergency Provider Registered Nurse Emergency; PCP Nurse Practitioner Family
DX: S63.501A Unspecified sprain of right wrist, initial encounter (principal); X50.0XXA Overexertion from strenuous movement or load, initial encounter
CPT/HCPCS: 99283; 73110

== ENCOUNTER 2022-10-23 01:25 | Outpatient (CLI) | payer MEDICAID, SELFPAY ==
[2022-10-23 16:00] LABS: FREE T4 1.43 ng/dL (0.76-1.46); TSH 3.89 uIU/mL (0.36-3.74)
== END 2022-10-23 01:26 | disposition home or self-care (01) ==
LOC: LBO 01:26
PROVIDERS: PCP Nurse Practitioner Family; Visit Provider Internal Medicine Endocrinology, Diabetes & Metabolism
DX: E89.0 Postprocedural hypothyroidism (principal)
CPT/HCPCS: 36415; 84439; 84443

== ENCOUNTER 2022-10-25 16:57 | Emergency (ER) | payer MEDICAID, SELFPAY ==
[2022-10-25 17:06] VITALS: BP 117/48; PULSE 83; RESP 18; TEMP 36.7; O2SAT 100
--- NOTE | 2022-10-25 17:28 | ED.GENADUL_ITS ---
Discharge Plan Disposition Patient Disposition: Home Condition: Stable Discharge Details Clinical Impression: Ankle sprain Primary Care Provider: DAYAN MOJICA ED Provider: Nithya Harden Home Meds and New Rx's Prescriptions: Continued sertraline 100 mg tablet 100 mg PO DAILY Qty: 30 1RF Patient Comments: not taking valacyclovir [Valtrex] 1 gram tablet 1,000 mg PO BID Qty: 7 6RF levothyroxine 150 mcg tablet 250 mcg PO DAILY Patient Comments: pt reports she is taking 250 mcg ProAir RespiClick 90 mcg/actuation aerosol powdr breath activated 2 inh inhalation Q6H PRN (Reason: shortness of breath or wheezing) Qty: 1 0RF (DME) blood-glucose meter [FreeStyle Lite Meter] Kit See Rx Instructions .Route Qty: 1 0RF Rx Instructions: As directed (DME) FreeStyle Lite Strips Strip See Rx Instructions .Route Qty: 100 3RF Rx Instructions: QID (DME) lancets [FreeStyle Lancets] 28 gauge misc See Rx Instructions .Route Qty: 100 3RF Rx Instructions: QID PNV,calcium 49-iagb-dhgym acid 27 mg iron- 1 mg tablet 1 tab PO DAILY Qty: 90 4RF Rx Instructions: give with food (meal/snack) acetaminophen 500 mg tablet 500 mg PO Q6H PRN (Reason: pain) Qty: 60 2RF ibuprofen 600 mg tablet 600 mg PO TID PRN (Reason: pain) Qty: 60 0RF acetaminophen [Tylenol] 325 mg Tablet 325 mg Discharge Instructions Instructions: Ankle Sprain (ED) Additional Instructions: Ice to affected area every 4-5 times daily for 20 to 30 minutes Elevation to help reduce swelling wear boot when ambulating, crutches if needed. weight bear as tolerated. Referrals: DAYAN MOJICA, BUSINESS COORDINATOR [Primary Care Provider] - Medical Decision Making 27-year-old female patient reports she is in early . Radiology consent obtained. X-ray of the right ankle performed. Her images are reviewed by Dr. 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 He recommends MRI when available and ankle stabilizer full weightbearing as tolerated. Patient did refuse crutches. She will be discharged to home advised to take ibuprofen 600 mg 4 times daily with food and will be scheduled for an outpatient MRI tomorrow. Medical Records Medical records reviewed: Yes I reviewed the patient's medical records. Imaging Data Radiologic Study: Imaging: X-Ray (Right ankle) My impression: No acute fracture HPI General Mode of arrival: ambulatory . Date/Time Provider Initiated Documentation: 10/25/22 17:00 . Limitations to Documentation: no limitations . Information obtained by: patient . HPI Narrative: This is a 27-year-old female patient in her usual state of health who reports twisting her right ankle at work this morning. She has been ambulatory. Presents for evaluation. Also reports that she is but has not had any [employer] appointments yet. Related Data Home Medications Medication Instructions Recorded Confirmed albuterol sulfate 90 mcg/actuation 2 inh inhalation Q6H PRN shortness 04/29/21 10/19/22 breath activated powder inhaler of breath or wheezing #1 ea (ProAir RespiClick) blood sugar diagnostic (FreeStyle #100 ea 05/22/21 05/02/22 Lite Strips) blood-glucose meter (FreeStyle #1 ea 05/22/21 05/02/22 Lite Meter kit) lancets 28 gauge (FreeStyle #100 ea 05/22/21 05/02/22 Lancets) sertraline 100 mg tablet 100 mg PO DAILY #30 tabs 12/26/21 10/19/22 valacyclovir 1 gram tablet 1,000 mg PO BID #7 tabs 12/26/21 10/19/22 (Valtrex) acetaminophen 325 mg tablet 325 mg 03/10/22 10/19/22 (Tylenol) acetaminophen 500 mg tablet 500 mg PO Q6H PRN pain #60 tabs 03/10/22 10/19/22 ibuprofen 600 mg tablet 600 mg PO TID PRN pain #60 tabs 03/10/22 07/15/22 levothyroxine 150 mcg tablet 250 mcg PO DAILY 10/19/22 10/19/22 vitamin with calcium 1 tab PO DAILY #90 tabs 10/22/22 no.72-iron 27 mg-folic acid 1 mg tablet Previous Rx's Medication Instructions Recorded albuterol sulfate 90 mcg/actuation 2 inh inhalation Q6H PRN shortness 04/29/21 breath activated powder inhaler of breath or wheezing #1 ea (ProAir RespiClick) blood sugar diagnostic (FreeStyle #100 ea 05/22/21 Lite Strips) blood-glucose meter (FreeStyle #1 ea 05/22/21 Lite Meter kit) lancets 28 gauge (FreeStyle #100 ea 05/22/21 Lancets) sertraline 100 mg tablet 100 mg PO DAILY #30 tabs 12/26/21 valacyclovir 1 gram tablet 1,000 mg PO BID #7 tabs 12/26/21 (Valtrex) acetaminophen 500 mg tablet 500 mg PO Q6H PRN pain #60 tabs 03/10/22 ibuprofen 600 mg tablet 600 mg PO TID PRN pain #60 tabs 03/10/22 vitamin with calcium 1 tab PO DAILY #90 tabs 10/22/22 no.72-iron 27 mg-folic acid 1 mg tablet Allergies Allergy/AdvReac Type Severity Reaction Status Date / Time No Known Allergies Allergy Verified 10/25/22 17:11 General Stated Complaint: Orthopedic JEANETTE: 4 Review of Systems All systems reviewed & are unremarkable except as noted in HPI and below PFSH All Active Problems (Updated 10/25/22 @ 18:42 by Nithya Harden NP) Ankle sprain (Acute) (Acute) Carpal tunnel syndrome, right (Acute) S/P ECTR: 03/10/2022 Carpal tunnel syndrome, left (Acute) TSH elevation (Acute) Post depression (Acute) H/O cold sores (Acute) De Quervain's tenosynovitis, right (Acute) S/P Release: 03/10/2022 De Quervain's tenosynovitis, left (Acute) Gestational diabetes mellitus (GDM) affecting (Acute) BMI 50.0-59.9, adult (Acute) Elevated liver enzymes (Acute) Fatty liver (Acute) incidental finding, patient reports she was heavy drinker in past and is aware of this finding Graves' disease (Acute) Recurrent genital HSV (herpes simplex virus) infection (Acute) Hypothyroidism (Chronic) see Carlos Nuñez MD, diagnosed age 12, graves disease Medical History Acute cholecystitis ADHD (attention deficit hyperactivity disorder) evaluation Asthma Cholangitis due to bile duct calculus with obstruction Choledocholithiasis with obstruction Depression Epigastric abdominal pain Heavy alcohol use ages [age], High BMI 49 History of radioactive iodine thyroid ablation age 14 Intractable abdominal pain Morbidly obese Post depression Right flank pain renal scan is nml, problem resolved Surgical History H/O endoscopic retrograde cholangiopancreatography (~06/17/20) History of cholecystectomy (~02/15/20) History of esophagogastroduodenoscopy (EGD) (~06/2020) Family History Father Yanira's disease Hypertension Diabetes Mother Hypertension Retinal disease Kidney stones Brother Autism Retinal disease Oppositional defiant behavior Brother Retinal disease Brother Autism half brother Niece Autism Nephew Autism Social History Smoking/Tobacco Use Status: Former Tobacco Use Quit Date: 03/01/18 Smoking risk assessment performed?: Yes Alcohol Intake: current Alcohol Intake frequency: a few times a month Alcohol type: wine Details: heavy drinking age [age]. Denies use now. Drug use: Never Substance use type: does not use Current gender identity: female Do you feel safe at home: Yes Do you feel safe in your relationship?: Yes Female Reproductive History Menstrual control method: none History History 2 Para 1 Hx # Term Pregnancies 1 Multiple births 0 Hx # Pregnancies 0 Ectopic pregnancies 0 AB induced 0 Hx Number of Living Children 1 AB spontaneous 0 Past Pregnancies Del. Date GA/Weeks # Preg Succ Route Wgt Sex Labor Lgth Anesth esia Location [facility] 08/08/17 40 No vaginal 3827.186 g Female [facility] [place], vanishing twin Delivery Date: 08/08/17 Last Updated by: ROSENDO Corey Course Vital Signs Vital signs: Vital Signs Temperature 36.7 C 10/25/22 17:06 Pulse 83 10/25/22 17:06 Respiratory Rate 18 10/25/22 17:06 Blood Pressure 117/48 L 10/25/22 17:06 Pulse Oximetry 100 10/25/22 17:06 Temperature 36.7 C 10/25/22 17:06 Temperature Source Skin 10/25/22 17:06 Pulse 83 10/25/22 17:06 Respiratory Rate 18 10/25/22 17:06 Blood Pressure 117/48 L 10/25/22 17:06 Blood Pressure Position Sitting 10/25/22 17:06 Pulse Oximetry 100 10/25/22 17:06 Oxygen Delivery Method Room Air 10/25/22 17:06 Oxygen Flow Rate 0 10/25/22 17:06 Pain Level 6 10/25/22 17:06
--- NOTE | 2022-10-25 17:28 | DI.RAD_ITS ---
Exam(s) XR ANKLE RT COMPLETE EXAM: XR ANKLE RT COMPLETE CLINICAL HISTORY: trauma. TECHNIQUE: 2D digital imaging was performed. Three views. COMPARISON: No exams were available for comparison FINDINGS: BONES: There is an osteochondral defect of the medial talar dome with insitu fragment which has a chr onic appearance. No bony destructive lesion is seen. JOINTS: The ankle mortise is normally aligned. SOFT TISSUE: Normal. 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 DATA REPOSITORY: RADIATION DOSE DELIVERED:
--- NOTE | 2022-10-25 17:55 | DI.VRAD_ITS ---
Addendum created by Carrie Maddox MD on 10/25/2022 5:55:24 PM EDT: Further information. A proximally 8 mm medial talar dome defect, morphology suggests a chronic osteochondral lesion and could be worked up with MRI or CT. Initial report created on 10/25/2022 5:54:49 PM EDT: PROCEDURE INFORMATION: Exam: XR Right Ankle Exam date and time: 10/25/2022 5:24 PM Age: 27 years old Clinical indication: Injury or trauma; Fall; Blunt trauma; Ankle; Right; Injury date: 10/25/22 TECHNIQUE: Imaging protocol: Radiologic exam of the right ankle. Views: 3 or more views. COMPARISON: No relevant prior studies available. FINDINGS: Bones/joints: No acute fracture or subluxation. Soft tissues: Mild generalized swelling. IMPRESSION: No acute bony pathology. Dictated and Authenticated by: Carrie Maddox MD. Ordering:ANABEL Barrgia MD
[2022-10-25 18:37] VITALS: BP 120/74; PULSE 83; RESP 18; TEMP 36.7; O2SAT 100
== END 2022-10-25 19:16 | disposition home or self-care (01) ==
PROVIDERS: Emergency Provider Nurse Practitioner Acute Care; PCP Nurse Practitioner Family
DX: X50.1XXA Overexertion from prolonged static or awkward postures, initial encounter; Y99.0 Civilian activity done for income or pay; S93.401A Sprain of unspecified ligament of right ankle, initial encounter; O9A.211 Injury, poisoning and certain other consequences of external causes complicating pregnancy, first trimester
CPT/HCPCS: 29515; 99283; 73610; 99284

== ENCOUNTER → 2022-10-26 12:09 | Outpatient (CLI) | payer MEDICAID, SELFPAY ==
--- NOTE | 2022-10-26 | DI.MRI_ITS ---
Exam(s) MR LOWER JOINT RT WO EXAM: MR LOWER JOINT RT WO CLINICAL HISTORY: CHRONIC OCD LESION OF RT MEDIAL TALUS W/ POSSIBLE ACUTE INJURY TECHNIQUE: Multiplanar multisequence MRI was performed without intravenous contrast. COMPARISON: CR,XR XR ANKLE RT COMPLETE from 10/25/2022 FINDINGS: BONES/JOINTS: No acute fracture or contusion pattern. Osteochondral defect of the medial talar dome with in situ fragment measures 12 millimeters. It appears old. The ankle mortise is maintained. A t ibiotalar joint effusion is present. MUSCULOTENDINOUS STRUCTURES: Achilles tendon: Unremarkable. Plantar fascia: Unremarkable. Anterior Extensor tendons: Unremarkable. Posterior Tibialis: Unremarkable. Flexor Digitorum longus: Unremarkable. Flexor Hallucis longus: Unremarkable. Peroneus longus: Unremarkable. Peroneus brevis:Unremarkable. SOFT TISSUES: Minimal lateral edema. IMPRESSION: Osteochondral defect of the medial talar dome with in situ fragment appears old. Joint effusion. DATA REPOSITORY:
== END ==
PROVIDERS: PCP Nurse Practitioner Family; Visit Provider Nurse Practitioner Acute Care
DX: M93.271 Osteochondritis dissecans, right ankle and joints of right foot (principal); M25.471 Effusion, right ankle
CPT/HCPCS: 73721

== ENCOUNTER 2022-10-26 20:35 | Emergency (ER) | payer MEDICAID, SELFPAY ==
[2022-10-26 20:52] VITALS: BP 121/77; PULSE 83; RESP 18; TEMP 36.7; O2SAT 99
[2022-10-26 21:44] LABS: Bilirubin Negative (Negative); Blood Negative (Negative); Clarity Sl Cloudy (Clear); Glucose Negative (Negative); Ketones Negative (Negative); Leukocyte Esterase Negative (Negative); Nitrite Negative (Negative); Specific Gravity >= 1.030 (1.005-1.025); Urobilinogen 0.2 mg/dL (Up to 0.2)
--- NOTE | 2022-10-26 21:48 | ED.GENADUL_ITS ---
Discharge Plan Disposition Patient Disposition: Home Condition: Good Discharge Details Clinical Impression: , Abdominal cramping Primary Care Provider: DAYAN MOJICA ED Provider: Danna Esqueda Home Meds and New Rx's Prescriptions: Continued sertraline 100 mg tablet 100 mg PO DAILY Qty: 30 1RF Patient Comments: not taking valacyclovir [Valtrex] 1 gram tablet 1,000 mg PO BID Qty: 7 6RF levothyroxine 150 mcg tablet 250 mcg PO DAILY Patient Comments: pt reports she is taking 250 mcg ProAir RespiClick 90 mcg/actuation aerosol powdr breath activated 2 inh inhalation Q6H PRN (Reason: shortness of breath or wheezing) Qty: 1 0RF (DME) blood-glucose meter [FreeStyle Lite Meter] Kit See Rx Instructions .Route Qty: 1 0RF Rx Instructions: As directed (DME) FreeStyle Lite Strips Strip See Rx Instructions .Route Qty: 100 3RF Rx Instructions: QID (DME) lancets [FreeStyle Lancets] 28 gauge misc See Rx Instructions .Route Qty: 100 3RF Rx Instructions: QID PNV,calcium 05-pxfk-ewmqm acid 27 mg iron- 1 mg tablet 1 tab PO DAILY Qty: 90 4RF Rx Instructions: give with food (meal/snack) acetaminophen 500 mg tablet 500 mg PO Q6H PRN (Reason: pain) Qty: 60 2RF ibuprofen 600 mg tablet 600 mg PO TID PRN (Reason: pain) Qty: 60 0RF acetaminophen [Tylenol] 325 mg Tablet 325 mg Discharge Instructions Instructions: (ED) Additional Instructions: Your labs are very reassuring here today. The hormones associated with appear to be consistent with 4 to 5 weeks along. Please call your DIRECT[employer] WORK[employer]NAG[employer] tomorrow to discuss your abdominal discomfort and see if they would like to repeat this in the next few days to continue to trend it. Please continue to follow your care with vitamins, increase hydration. You may use Tylenol as needed for discomfort. Please keep your upcoming appointments with [employer] unless they want to check your HCG earlier as above. If you develop any new or worsening symptoms please seek care urgently once again. Referrals: DAYAN MOJICA, [employer] [Primary Care Provider] - Discharge Data Discharge Date/Time-TO BE ENTERED AT DEPARTURE: 10/27/22 00:04 Medical Decision Making Patient is a 27-year-old female, accompanied by significant other, with chief complaint of lower abdominal cramping in early stages of . Unclear how early she is but based on her recent [employer] note, estimated to be around 2 to 3 weeks although patient reports she is not sure when her LMP was. She denies any vaginal bleeding, vaginal discharge. No new sexual partners. Has had 2 other pregnancies both of which were successful but complicated with gestational diabetes and preeclampsia. States that this has been developing over the last few days. Denies any fevers or chills. Past surgical history is significant for cholecystectomy. On exam, patient appears nontoxic. Appears well-hydrated and well-nourished. No CVA tenderness. Abdomen is benign. She indicated the entirety of the lower abdomen, not worse with either side. Her history and exam is not suggestive digestive of a surgical issue. I not see any indication that she has appendicitis, diverticulitis, bowel obstruction. As the pain is diffuse across the lower abdomen and she has no pain with palpation, I do not see indication at this time for ectopic, I also believe that she is likely too early for this. She primary concern for potential spontaneous . She not having any bleeding or vaginal discharge at this time. Will obtain a quantitative hCG, baseline labs and type and screen. Discussed this plan with the patient is in agreement. I did review the note from [employer], patient scheduled to have a dating ultrasound next week Labs reviewed. No leukocytosis. Stable H&H. CMP without significant abnormality. Her potassium is minimally low and will encourage increased intake. Quant is rising. Strict return precautions discussed. She will keep her upcoming appointments. All of her questions and concerns were addressed, she is inagreement with this plan. HPI General Date/Time Provider Initiated Documentation: 10/26/22 21:48 . Limitations to Documentation: no limitations . Information obtained by: patient, RN notes reviewed and old records reviewed . History of Present Illness 27 year old F presents to the emergency department with the chief complaint of abdominal cramping, described as moderate, Quality is described as aching (cramping), and is localized to the pelvis (low, central abdomen that extends to both sides equally). Patient reports no radiation. Patient started experiencing this day(s) and it has been constant. No relieving factors improve symptom(s), No exacerbating factors reported . Patient notes nausea/vomiting (reports nausea in the AM); denies chest pain, diaphoresis, fever/chills, loss of appetite, malaise, rash and shortness of breath. Patient did receive the following treatments prior to arrival, other (APAP) Related Data Home Medications Medication Instructions Recorded Confirmed albuterol sulfate 90 mcg/actuation 2 inh inhalation Q6H PRN shortness 04/29/21 10/26/22 breath activated powder inhaler of breath or wheezing #1 ea (ProAir RespiClick) blood sugar diagnostic (FreeStyle #100 ea 05/22/21 05/02/22 Lite Strips) blood-glucose meter (FreeStyle #1 ea 05/22/21 05/02/22 Lite Meter kit) lancets 28 gauge (FreeStyle #100 ea 05/22/21 05/02/22 Lancets) sertraline 100 mg tablet 100 mg PO DAILY #30 tabs 12/26/21 10/19/22 valacyclovir 1 gram tablet 1,000 mg PO BID #7 tabs 12/26/21 10/19/22 (Valtrex) acetaminophen 325 mg tablet 325 mg 03/10/22 10/19/22 (Tylenol) acetaminophen 500 mg tablet 500 mg PO Q6H PRN pain #60 tabs 03/10/22 10/26/22 ibuprofen 600 mg tablet 600 mg PO TID PRN pain #60 tabs 03/10/22 07/15/22 levothyroxine 150 mcg tablet 250 mcg PO DAILY 10/19/22 10/26/22 vitamin with calcium 1 tab PO DAILY #90 tabs 10/22/22 10/26/22 no.72-iron 27 mg-folic acid 1 mg tablet Previous Rx's Medication Instructions Recorded albuterol sulfate 90 mcg/actuation 2 inh inhalation Q6H PRN shortness 04/29/21 breath activated powder inhaler of breath or wheezing #1 ea (ProAir RespiClick) blood sugar diagnostic (FreeStyle #100 ea 05/22/21 Lite Strips) blood-glucose meter (FreeStyle #1 ea 05/22/21 Lite Meter kit) lancets 28 gauge (FreeStyle #100 ea 05/22/21 Lancets) sertraline 100 mg tablet 100 mg PO DAILY #30 tabs 12/26/21 valacyclovir 1 gram tablet 1,000 mg PO BID #7 tabs 12/26/21 (Valtrex) acetaminophen 500 mg tablet 500 mg PO Q6H PRN pain #60 tabs 03/10/22 ibuprofen 600 mg tablet 600 mg PO TID PRN pain #60 tabs 03/10/22 vitamin with calcium 1 tab PO DAILY #90 tabs 10/22/22 no.72-iron 27 mg-folic acid 1 mg tablet Allergies Allergy/AdvReac Type Severity Reaction Status Date / Time No Known Allergies Allergy Verified 10/26/22 20:57 General Stated Complaint: Abd Prob JEANETTE: 3 Review of Systems Constitutional Constitutional: Reports as per HPI, Denies chills and Denies fever(s) Cardiovascular Cardiovascular: Reports as per HPI, Denies chest pain and Denies dyspnea Respiratory Respiratory: Reports as per HPI, Denies cough and Denies dyspnea Gastrointestinal Gastrointestinal: Reports as per HPI Musculoskeletal Musculoskeletal: Reports as per HPI and Denies back pain Integumentary/Breasts Skin/Breast: Reports as per HPI and Denies rash Neurologic Neurologic: Reports as per HPI PFSH All Active Problems (Updated 10/26/22 @ 23:53 by IBETH Hammer) Ankle sprain (Acute) (Acute) Abdominal cramping (Acute) (Acute) Carpal tunnel syndrome, right (Acute) S/P ECTR: 03/10/2022 Carpal tunnel syndrome, left (Acute) TSH elevation (Acute) Post depression (Acute) H/O cold sores (Acute) De Quervain's tenosynovitis, right (Acute) S/P Release: 03/10/2022 De Quervain's tenosynovitis, left (Acute) Gestational diabetes mellitus (GDM) affecting (Acute) BMI 50.0-59.9, adult (Acute) Elevated liver enzymes (Acute) Fatty liver (Acute) incidental finding, patient reports she was heavy drinker in past and is aware of this finding Graves' disease (Acute) Recurrent genital HSV (herpes simplex virus) infection (Acute) Hypothyroidism (Chronic) see Carlos Nuñez MD, diagnosed age 12, graves disease Medical History Acute cholecystitis ADHD (attention deficit hyperactivity disorder) evaluation Asthma Cholangitis due to bile duct calculus with obstruction Choledocholithiasis with obstruction Depression Epigastric abdominal pain Heavy alcohol use ages [age], High BMI 49 History of radioactive iodine thyroid ablation age 14 Intractable abdominal pain Morbidly obese Post depression Right flank pain renal scan is nml, problem resolved Surgical History H/O endoscopic retrograde cholangiopancreatography (~06/17/20) History of cholecystectomy (~02/15/20) History of esophagogastroduodenoscopy (EGD) (~06/2020) Family History Father Yanira's disease Hypertension Diabetes Mother Hypertension Retinal disease Kidney stones Brother Autism Retinal disease Oppositional defiant behavior Brother Retinal disease Brother Autism half brother Niece Autism Nephew Autism Social History Smoking/Tobacco Use Status: Former Tobacco Use Quit Date: 03/01/18 Smoking risk assessment performed?: Yes Alcohol Intake: current Alcohol Intake frequency: a few times a month Alcohol type: wine Details: heavy drinking age [age]. Denies use now. Drug use: Occasionally Substance use type: marijuana Details: Not since finding out about Current gender identity: female Do you feel safe at home: Yes Do you feel safe in your relationship?: Yes Female Reproductive History Menstrual control method: none History History 2 Para 1 Hx # Term Pregnancies 1 Multiple births 0 Hx # Pregnancies 0 Ectopic pregnancies 0 AB induced 0 Hx Number of Living Children 1 AB spontaneous 0 Past Pregnancies Del. Date GA/Weeks # Preg Succ Route Wgt Sex Labor Lgth Anesth esia Location Prov [facility] 08/08/17 40 No vaginal 3827.[address] [facility], vanishing twin Delivery Date: 08/08/17 Last Updated by: ROSENDO Corey, Exam Const General: cooperative, healthy appearing, comfortable, no acute distress and well developed Nutritional Appearance: well nourished and overweight Orientation: alert and awake HENMT Head: normal to inspection Mouth: moist mucous membranes Resp Effort & Inspection: normal respiratory effort, able to speak in complete sentences and no respiratory distress Cardio Rate: regular rate Rhythm: regular rhythm GI Inspection: normal to inspection Palpation: soft, no hepatosplenomegaly, not firm, no guarding, no masses, not rigid and nontender Percussion: normal to percussion Auscultation: normal bowel sounds Back/Spine/Pelvis Back: no CVA tenderness Skin General skin exam: no rashes or lesions noted Trauma: no lacerations or abrasions Neuro General: patient alert and patient awake Cognition: normal cognition Speech: speech normal Gait: normal gait Course Vital Signs Vital signs: Vital Signs Temperature 36.7 C 10/26/22 20:52 Pulse 83 10/26/22 20:52 Respiratory Rate 18 10/26/22 20:52 Blood Pressure 121/77 10/26/22 20:52 Pulse Oximetry 99 10/26/22 20:52 Temperature 36.7 C 10/26/22 20:52 Temperature Source Skin 10/26/22 20:52 Pulse 83 10/26/22 20:52 Respiratory Rate 18 10/26/22 20:52 Respiratory Effort Normal 10/26/22 20:56 Blood Pressure 121/77 10/26/22 20:52 Blood Pressure Position Supine 10/26/22 20:52 Pulse Oximetry 99 10/26/22 20:52 Oxygen Delivery Method Room Air 10/26/22 20:52 Oxygen Flow Rate 0 10/26/22 20:52
[2022-10-26 22:50] LABS: Abs Immature Grans 0.01 10^3/uL (0.0-0.06); Absolute Basophil Count 0.04 10^3/uL (0.0-0.2); Absolute Eosinophil Count 0.15 10^3/uL (0.0-0.7); Absolute Lymphocyte Count 2.55 10^3/uL (1.2-3.4); Absolute Monocyte Count 0.46 10^3/uL (0.1-0.8); Absolute Neutrophil Count 3.84 10^3/uL (1.2-6.7); Basophils % 0.6; Eosinophils % 2.1; HCT 37.9 % (36.0-46.0); HGB 12.8 g/dL (11.2-15.7); Immature Grans % 0.1; Lymphocytes % 36.2; MCH 29.2 pg (27.0-33.0); MCHC 33.8 % (32.0-36.0); MCV 87 fL (80-95); MPV 9.8 fL (8.0-11.0); Monocytes % 6.5; Neutrophils % 54.5; Platelet Count 295 10^3/uL (130-400); RBC 4.38 10^6/uL (3.93-5.22); WBC 7.05 10^3/uL (4.4-10.8)
[2022-10-26 23:12] LABS: ALT 66 U/L (14-59); AST 24 U/L (15-37); Albumin 3.6 g/dL (3.4-5.0); Alkaline Phosphatase 65 U/L (46-116); Anion Gap 9.7 mmol/L (3-11); BUN 10 mg/dL (7-18); Bilirubin, Total 0.2 mg/dL (0.2-1.0); CO2 28.3 mmol/L (21.0-32.0); Calcium 9.2 mg/dL (8.5-10.1); Chloride 103 mmol/L (98-107); Estimated GFR 78.21 (mL/min/1.73m2); Glucose 97 mg/dL (74-106); Potassium 3.3 mmol/L (3.5-5.1); Sodium 141 mmol/L (136-145)
[2022-10-26 23:44] LABS: HCG Quant, Pregnancy 5643 mIU/mL (1-3)
== END 2022-10-27 00:04 | disposition home or self-care (01) ==
PROVIDERS: Emergency Provider Physician Assistant; PCP Nurse Practitioner Family
DX: O99.891 Other specified diseases and conditions complicating pregnancy (principal); R10.9 Unspecified abdominal pain
CPT/HCPCS: 36415; 80053; 86850; 86900; 86901; 99282; 81003; 84702; 85025

== ENCOUNTER 2022-11-25 20:23 | Emergency (ER) | payer MEDICAID, SELFPAY ==
[2022-11-25 20:27] VITALS: BP 105/70; PULSE 99; RESP 16; TEMP 36.6; O2SAT 100
--- NOTE | 2022-11-25 20:31 | W.ED.GENAD ---
Discharge Plan Disposition Patient Disposition: Home Discharge Details Clinical Impression: Viral URI with cough Primary Care Provider: DAYAN MOJICA ED Provider: Jack Mejia Home Meds and New Rx's Prescriptions: New ondansetron 4 mg tablet,disintegrating 4 mg PO BID 5 Days Qty: 10 0RF Continued sertraline 100 mg tablet 100 mg PO DAILY Qty: 30 1RF Patient Comments: stopped taking when she found out she was 11/25/22 levothyroxine 150 mcg tablet 275 mcg PO DAILY Patient Comments: pt reports she is taking 275 mcg ProAir RespiClick 90 mcg/actuation aerosol powdr breath activated 2 inh inhalation Q6H PRN (Reason: shortness of breath or wheezing) Qty: 1 0RF (DME) blood-glucose meter [FreeStyle Lite Meter] Kit See Rx Instructions .Route Qty: 1 0RF Rx Instructions: As directed (DME) FreeStyle Lite Strips Strip See Rx Instructions .Route Qty: 100 3RF Rx Instructions: QID (DME) lancets [FreeStyle Lancets] 28 gauge misc See Rx Instructions .Route Qty: 100 3RF Rx Instructions: QID PNV,calcium 11-dpad-fxkic acid 27 mg iron- 1 mg tablet 1 tab PO DAILY Qty: 90 4RF Rx Instructions: give with food (meal/snack) acetaminophen 500 mg tablet 500 mg PO Q6H PRN (Reason: pain) Qty: 60 2RF ibuprofen 600 mg tablet 600 mg PO TID PRN (Reason: pain) Qty: 60 0RF valacyclovir [Valtrex] 1 gram tablet 1,000 mg PO PRN PRN Discharge Instructions Instructions: Upper Respiratory Infection (ED) Additional Instructions: Please read all of the information that accompanies these instructions. You were seen in the emergency department for your cough and cold symptoms. Your lung exam showed no sign of pneumonia. The baby is heart rate was 158 bpm which is completely normal. Please schedule an appointment with your primary care provider later this week. Please return to the emergency department if do not urinate at least once every 8 hours cannot eat or drink as result of vomiting or if you have any other concerns. A short course of antinausea medicines has been sent to your pharmacy. Stand Alone Forms: Work Release Discharge Data Discharge Date/Time-TO BE ENTERED AT DEPARTURE: 11/25/22 21:04 HPI General Date/Time Provider Initiated Documentation: 11/25/22 20:30. HPI Narrative: HPI This is a 27-year-old G3, P2 at approximately 9 weeks with 4 days of cough rhinorrhea and general malaise. Patient reports that yesterday she had numerous episodes of emesis. She has not been vomiting today and was able to tolerate a bowl of cereal. She reports that with she has been urinating more frequently and this has been consistent today. She denies dysuria and hematuria. No vaginal bleeding. She does endorse a sore throat but denies fevers. No stuffy nose. She has had no diarrhea. She does endorse some postnasal drip. She does feel some shortness of breath. No recent falls. She reports that she became sick from her eldest daughter with whom she is in the room with. Exam General: Well-appearing in no acute distress speaking in complete sentences. Head: Normocephalic, atraumatic. Eye: Extraocular eye movements intact. No conjunctival injection. No scleral icterus. Ear, nose, mouth, throat: Grossly normal inspection. Normal voice, handling secretions normally. Uvula midline. Good range of motion in neck. Moist mucous membranes. No significant posterior oral pharynx erythema. Neck: Trachea midline. Cardiovascular: Well-perfused distal extremities. Regular rate and rhythm. Respiratory: Nonlabored respiration. Clear lungs bilaterally. Gastrointestinal: Nondistended abdomen. Soft nontender abdomen. Musculoskeletal: No edema. Moving all 4 extremities spontaneously. Skin: Normal for age and race, grossly normal temperature and turgor. No acute rash. Neurologic: Alert and appropriate, no apparent acute deficits. Psychiatric: Mood and manner are appropriate. Grooming and personal hygiene are appropriate. MDM This is an overall very well-appearing normothermic and not tachycardic nor hypoxic 27-year-old at 9 weeks with history and physical most consistent with viral URI with cough. No abnormal breath sounds nor hypoxia nor fevers so doubt pneumonia. No chest pain to suggest ACS. Uvula midline so I am not concerned for retropharyngeal abscess. Patient had been vomiting yesterday and this raises the question of hyperemesis gravidarum. She does note some shortness of breath and this raises the possibility of PE. Patient is not hypoxic nor tachycardic given her URI symptoms my suspicion for PE was low and I felt that the harms of downstream testing outweighed the benefits so I did not send a D-dimer. Specifically I did not want to expose the patient to radiation, risk incidental findings and possibility of iatrogenic harm with subsequent testing and imaging. However she has moist mucous membranes tolerated a bowl of cereal today and has not been vomiting more than 24 hours so I did not feel that she required a urinalysis to assess for ketonuria nor any assessment of her electrolytes. She good range of motion in her neck so I am not concerned for retropharyngeal abscess. No pain out of proportion to suggest necrotizing soft tissue infection. Not altered to suggest meningitis. I swabbed the patient for COVID influenza and RSV. Give no significant posterior oropharynx erthyema I did not swab patient for strep. I advised that she could wait in the emergency department or if that I could call her if any of the results were positive. She elected to go home with her partner and their 2 young children at bedside. I did advise patient that given her status she should have a low threshold to return to the emergency department. Specifically we discussed returning to the emergency department if she developed shortness of breath any intractable vomiting any inability to tolerate p.o. She understood her return indications and we will proceed with a therapeutic trial of expectant outpatient management. I provided the patient with a work note which she requested. 11/26 Viral swab negative. Chronic conditions affecting the care of the patient: elevated BMI History obtained from an outside historian: N/A External record review: Prior [facility] [place] Medications: N/A Social determinants of health affecting disposition: N/A Management discussed with: N/A Treatment/interventions considered: Chest x-ray x-ray but deferred given no hypoxia nor any abnormal breath sounds Response to therapies provided: N/A Related Data Home Medications Medication Instructions Recorded Confirmed albuterol sulfate 90 mcg/actuation 2 inh inhalation Q6H PRN shortness 04/29/21 11/25/22 breath activated powder inhaler of breath or wheezing #1 ea (ProAir RespiClick) blood sugar diagnostic (FreeStyle #100 ea 05/22/21 11/18/22 Lite Strips) blood-glucose meter (FreeStyle #1 ea 05/22/21 11/18/22 Lite Meter kit) lancets 28 gauge (FreeStyle #100 ea 05/22/21 11/18/22 Lancets) sertraline 100 mg tablet 100 mg PO DAILY #30 tabs 12/26/21 11/05/22 acetaminophen 500 mg tablet 500 mg PO Q6H PRN pain #60 tabs 03/10/22 11/25/22 ibuprofen 600 mg tablet 600 mg PO TID PRN pain #60 tabs 03/10/22 11/25/22 levothyroxine 150 mcg tablet 275 mcg PO DAILY 10/19/22 11/25/22 vitamin with calcium 1 tab PO DAILY #90 tabs 10/22/22 11/25/22 no.72-iron 27 mg-folic acid 1 mg tablet ondansetron 4 mg disintegrating 4 mg PO BID 5 days #10 tabs 11/25/22 tablet valacyclovir 1 gram tablet 1,000 mg PO PRN PRN 11/25/22 11/25/22 (Valtrex) Previous Rx's Medication Instructions Recorded albuterol sulfate 90 mcg/actuation 2 inh inhalation Q6H PRN shortness 04/29/21 breath activated powder inhaler of breath or wheezing #1 ea (ProAir RespiClick) blood sugar diagnostic (FreeStyle #100 ea 05/22/21 Lite Strips) blood-glucose meter (FreeStyle #1 ea 05/22/21 Lite Meter kit) lancets 28 gauge (FreeStyle #100 ea 05/22/21 Lancets) sertraline 100 mg tablet 100 mg PO DAILY #30 tabs 12/26/21 acetaminophen 500 mg tablet 500 mg PO Q6H PRN pain #60 tabs 03/10/22 ibuprofen 600 mg tablet 600 mg PO TID PRN pain #60 tabs 03/10/22 vitamin with calcium 1 tab PO DAILY #90 tabs 10/22/22 no.72-iron 27 mg-folic acid 1 mg tablet ondansetron 4 mg disintegrating 4 mg PO BID 5 days #10 tabs 11/25/22 tablet Allergies Allergy/AdvReac Type Severity Reaction Status Date / Time No Known Allergies Allergy Verified 11/18/22 12:57 General JEANETTE: 3 PFSH All Active Problems (Updated 11/25/22 @ 21:01 by Jack Mejia MD) (Acute) Abdominal cramping (Acute) Viral URI with cough (Acute) (Acute) Carpal tunnel syndrome, right (Acute) S/P ECTR: 03/10/2022 Carpal tunnel syndrome, left (Acute) TSH elevation (Acute) Post depression (Acute) H/O cold sores (Acute) De Quervain's tenosynovitis, right (Acute) S/P Release: 03/10/2022 De Quervain's tenosynovitis, left (Acute) Gestational diabetes mellitus (GDM) affecting (Acute) BMI 50.0-59.9, adult (Acute) Elevated liver enzymes (Acute) Fatty liver (Acute) incidental finding, patient reports she was heavy drinker in past and is aware of this finding Graves' disease (Acute) Recurrent genital HSV (herpes simplex virus) infection (Acute) Hypothyroidism (Chronic) see Carlos Nuñez MD, diagnosed age 12, graves disease Medical History Acute cholecystitis ADHD (attention deficit hyperactivity disorder) evaluation Asthma Cholangitis due to bile duct calculus with obstruction Choledocholithiasis with obstruction Depression Epigastric abdominal pain Heavy alcohol use ages [age], High BMI 49 History of radioactive iodine thyroid ablation age 14 Intractable abdominal pain Morbidly obese Post depression Right flank pain renal scan is nml, problem resolved Surgical History H/O endoscopic retrograde cholangiopancreatography (~06/17/20) History of cholecystectomy (~02/15/20) History of esophagogastroduodenoscopy (EGD) (~06/2020) Family History Father Yanira's disease Hypertension Diabetes Mother Hypertension Retinal disease Kidney stones Brother Autism Retinal disease Oppositional defiant behavior Brother Retinal disease Brother Autism half brother Niece Autism Nephew Autism Social History Smoking/Tobacco Use Status: Former Tobacco Use Quit Date: 03/01/18 Smoking risk assessment performed?: Yes Alcohol Intake: former Details: heavy drinking age [age]. Denies use now. Drug use: Occasionally Substance use type: former substance user Details: Not since finding out about Housing: apartment Current gender identity: female Do you feel safe at home: Yes Do you feel safe in your relationship?: Yes Female Reproductive History Menstrual control method: none History History 2 Para 1 Hx # Term Pregnancies 1 Multiple births 0 Hx # Pregnancies 0 Ectopic pregnancies 0 AB induced 0 Hx Number of Living Children 1 AB spontaneous 0 Past Pregnancies Del. Date GA/Weeks # Preg Succ Route Wgt Sex Labor Lgth Anesthesia Location Prov [facility] 08/08/17 40 No vaginal 3827.186 g Female [facility], vanishing twin 08/07/21 39 Yes 3456 g Female [facility] Delivery Date: 08/08/17 Last Updated by: Ansley Khanna CNM [place], Delivery Date: 08/07/21 Last Updated by: Rosalinda Santo [facility] Exam (ED) Limited OB Exam DATE OF EXAM:: 11/25/22 TIME OF EXAM:: 21:02 Type of Exam: Pelvic OB Trans Abdominal REASON FOR EXAM: other () indication: Exam Complete. DIFFERENTAL DIAGNOSES: Reassuring heart rate 158 bpm
[2022-11-25 21:36] LABS: COVID-19 PCR Negative (Negative); Influenza A PCR Negative (Negative); Influenza B PCR Negative (Negative); RSV PCR Negative (Negative)
[2022-11-25 21:39] LABS: Source NASOPHARYNX
== END 2022-11-25 21:04 | disposition home or self-care (01) ==
PROVIDERS: Emergency Provider Emergency Medicine; PCP Nurse Practitioner Family
DX: R05.9 Cough, unspecified (principal); O99.511 Diseases of the respiratory system complicating pregnancy, first trimester; Z3A.09 9 weeks gestation of pregnancy; J06.9 Acute upper respiratory infection, unspecified; Z20.822 Contact with and (suspected) exposure to COVID-19
CPT/HCPCS: 76815; 87637; 99284

== ENCOUNTER 2022-12-14 04:43 | Outpatient (CLI) | payer MEDICAID, SELFPAY ==
[2022-12-14 12:28] LABS: Panorama Kit Sent via Fed Ex
[2022-12-14 12:31] LABS: Abs Immature Grans 0.02 10^3/uL (0.0-0.06); Absolute Basophil Count 0.03 10^3/uL (0.0-0.2); Absolute Eosinophil Count 0.09 10^3/uL (0.0-0.7); Absolute Monocyte Count 0.44 10^3/uL (0.1-0.8); Absolute Neutrophil Count 5.33 10^3/uL (1.2-6.7); Basophils % 0.4; Eosinophils % 1.2; HCT 40.9 % (36.0-46.0); HGB 14.1 g/dL (11.2-15.7); Immature Grans % 0.3; Lymphocytes % 23.3; MCH 29.6 pg (27.0-33.0); MCHC 34.5 % (32.0-36.0); MCV 86 fL (80-95); MPV 9.1 fL (8.0-11.0); Monocytes % 5.7; Neutrophils % 69.1; Platelet Count 314 10^3/uL (130-400); RBC 4.76 10^6/uL (3.93-5.22); RDW-SD 40.6 fL; WBC 7.71 10^3/uL (4.4-10.8)
[2022-12-14 12:43] LABS: Glucose,1 Hr (Glucola) 98 mg/dL (80-140)
[2022-12-14 12:47] LABS: ALT 24 U/L (14-59); AST 9 U/L (15-37); Albumin 3.3 g/dL (3.4-5.0); Alkaline Phosphatase 79 U/L (46-116); Anion Gap 8.8 mmol/L (3-11); BUN 6 mg/dL (7-18); Bilirubin, Total 0.3 mg/dL (0.2-1.0); CO2 26.2 mmol/L (21.0-32.0); CREATININE 0.6 mg/dL (0.55-1.02); Calcium 9.6 mg/dL (8.5-10.1); Chloride 101 mmol/L (98-107); Estimated GFR 124.53 (mL/min/1.73m2); Glucose 98 mg/dL (74-106); Potassium 3.6 mmol/L (3.5-5.1); Sodium 136 mmol/L (136-145); Total Protein 7.8 g/dL (6.4-8.2)
[2022-12-15 09:08] LABS: Hepatitis B Surface Ag Negative (Negative)
[2022-12-15 10:35] LABS: HIV-1/2 Ag & Ab Screen Negative (Negative)
[2022-12-15 10:44] LABS: Hepatitis C Ab w Rflx HCV PCR Negative (Negative)
[2022-12-15 12:51] LABS: Varicella IgG Antibody Positive (See Note)
[2022-12-15 12:57] LABS: Rubella IgG Ab (UVM) Positive (See Note)
[2022-12-16 22:54] LABS: Syphilis IgG w/Reflex Nonreactive (Nonreactive)
== END 2022-12-14 04:44 | disposition home or self-care (01) ==
LOC: LBO 04:43
PROVIDERS: PCP Nurse Practitioner Family; Visit Provider Advanced Practice Midwife
DX: Z34.91 Encounter for supervision of normal pregnancy, unspecified, first trimester (principal); Z86.32 Personal history of gestational diabetes
CPT/HCPCS: 36415; 80053; 82950; 86787; 86803; 86850; 86900; 86901; 87340; 87389; 85025; 86762; 86780

== ENCOUNTER 2022-12-14 14:01 | Outpatient (REF) | payer MEDICAID, SELFPAY ==
[2022-12-14 15:06] LABS: COMMENT (LAB VIEW ONLY) 57.52 mg/dL; PROTEIN < 6.0 mg/dL
[2022-12-14 15:08] LABS: *AMPHETAMINES SCREEN URINE Negative (Negative); *BARBITURATES SCREEN URINE Negative (Negative); *BENZODIAZEPINES SCREEN URINE Negative (Negative); Cannabinoids THC Negative (Negative); Cocaine Screen,Urine Negative (Negative); METHADONE URINE SCREEN Negative (Negative); OPIATES URINE SCREEN Negative (Negative)
[2022-12-14 15:12] LABS: Tricyclic Antidepressants Negative (Negative)
[2022-12-14 16:53] LABS: Lab Add On Test DONE
[2022-12-14 17:18] LABS: TSH (W/Ref FT4) 0.03 uIU/mL (0.36-3.74)
[2022-12-14 17:36] LABS: FREE T4 1.43 ng/dL (0.76-1.46)
[2022-12-18 12:13] LABS: Buprenorphine Negative ng/mL (Cutoff: 5.0); Norbuprenorphine Negative ng/mL (Cutoff: 2.5)
== END 2022-12-14 14:02 | disposition home or self-care (01) ==
LOC: LBN 14:01
PROVIDERS: PCP Nurse Practitioner Family; Visit Provider Advanced Practice Midwife
DX: Z86.32 Personal history of gestational diabetes (principal); O99.281 Endocrine, nutritional and metabolic diseases complicating pregnancy, first trimester; E03.9 Hypothyroidism, unspecified
CPT/HCPCS: 80307; 80348; 82565; 84156; 84439; 84443; 87086

== ENCOUNTER 2022-12-28 16:44 | Outpatient (CLI) | payer MEDICAID, SELFPAY ==
[2022-12-28 19:34] LABS: TSH (W/Ref FT4) 0.06 uIU/mL (0.36-3.74)
[2022-12-28 20:05] LABS: FREE T4 1.29 ng/dL (0.76-1.46)
== END 2022-12-28 16:45 | disposition home or self-care (01) ==
LOC: LBO 16:44
PROVIDERS: PCP Nurse Practitioner Family; Visit Provider Advanced Practice Midwife
DX: Z34.91 Encounter for supervision of normal pregnancy, unspecified, first trimester (principal); Z86.39 Personal history of other endocrine, nutritional and metabolic disease
CPT/HCPCS: 36415; 84439; 84443

== ENCOUNTER 2023-01-03 20:03 | Emergency (ER) | payer MEDICAID, SELFPAY ==
[2023-01-03 20:09] VITALS: BP 133/76; PULSE 99; RESP 16; TEMP 34.4; O2SAT 98
[2023-01-03 20:17] LABS: Bilirubin Negative (Negative); Blood Negative (Negative); Clarity Sl Cloudy (Clear); Glucose Negative (Negative); Ketones Negative (Negative); Leukocyte Esterase Negative (Negative); Nitrite Negative (Negative); Urobilinogen 0.2 mg/dL (Up to 0.2)
[2023-01-03 20:26] VITALS: BP 119/70; PULSE 92; RESP 16; TEMP 34.4; O2SAT 98
[2023-01-03] MEDS: ACETAMINOPHEN 1,000 MG/100 ML BTL 400 MG IVPB (20:37)
--- NOTE | 2023-01-03 20:38 | ED.GENADUL_ITS ---
Discharge Plan Disposition Patient Disposition: Home Condition: Good Discharge Details Clinical Impression: Abdominal pain affecting Primary Care Provider: DAYAN MOJICA ED Provider: Danay Mohamud Home Meds and New Rx's Prescriptions: No Action levothyroxine 150 mcg tablet 275 mcg PO DAILY Patient Comments: pt reports she is taking 275 mcg ProAir RespiClick 90 mcg/actuation aerosol powdr breath activated 2 inh inhalation Q6H PRN (Reason: shortness of breath or wheezing) Qty: 1 0RF (DME) blood-glucose meter [FreeStyle Lite Meter] Kit See Rx Instructions .Route Qty: 1 0RF Rx Instructions: As directed (DME) FreeStyle Lite Strips Strip See Rx Instructions .Route Qty: 100 3RF Rx Instructions: QID (DME) lancets [FreeStyle Lancets] 28 gauge misc See Rx Instructions .Route Qty: 100 3RF Rx Instructions: QID PNV,calcium 39-erag-felan acid 27 mg iron- 1 mg tablet 1 tab PO DAILY Qty: 90 4RF Rx Instructions: give with food (meal/snack) acetaminophen 500 mg tablet 500 mg PO Q6H PRN (Reason: pain) Qty: 60 2RF valacyclovir [Valtrex] 1 gram tablet 1,000 mg PO PRN PRN Discharge Instructions Instructions: Abdominal Pain (ED) Additional Instructions: Call your PCP tomorrow morning to schedule an appointment within 48 hours to follow up on your visit today. Call your SERVICE UNIT OPERATOR tomorrow morning to discuss your visit today. Return to the emergency department if your pain worsens, if you are still having significant pain tomorrow, you have a fever, begin vomiting, have vaginal bleeding or discharge, difficulty breathing, or if you have any other concerns. Stand Alone Forms: Work Release Discharge Data Discharge Date/Time-TO BE ENTERED AT DEPARTURE: 01/03/23 21:41 Medical Decision Making 27yo F with hypothyroid, obesity, currently 14w6d gestation by dating ultrasound on 12/14/22 presenting for RUQ abdominal pain for the past two hours. Symptoms started while sitting, cannot recall any injury or trauma to the area. Constant. No associated symptoms. Slightly tachycardic in 90's in arrival, vital signs otherwise reassuring. FHR reassuring at 150's. Mild RUQ tenderness on exam with no peritoneal signs. Not septic. S/p cholecysectomy, if reassuring bloodwork would not transfer for ultrasound. No pleuritc pain or hypoxia to suggest pulmonary embolism. Normal BMs, clinically not bowel obstruction. No uterine cramping, vaginal bleeding, or vaginal discharge to suggest labor or placental abruption. Prental visit notes reviewed, confirmed IUP, not concerned for ectopic . Pain location not concerning ovarian pathology. Given IV tylenol for pain. Labs reviewed as below, CBC normal with no leukocytosis or anemia. CMP reassuring, normal LFTs. Not HELLP syndrome. UA without infection, no hematuria to suggest kidney stone. Low suspicion for pancreatitis based on symptoms & exam, lipase ordered however difficulty with anaylzer in lab and unable to run. On reassessment her vital signs remain reassuring, tachycardia resolved, pain improved, continues with mild RUQ tenderness. Other acute conditions remain possible including intraabdominal pathology, appendicitis, etc however bloodwork is reassuring (though unable to obtain lipase result exam is not particularly suggestive of pancreatitis). Discussed with Ms. Cline how to proceed, CT scan given persistent pain vs discharge home with strict return precautions and close followup. After risks/benefit discussion, she elected for the later which is reasonable. Discharged home; discharge instructions including return precautions were reviewed with patient who verbalized understanding. All questions were answered and they are in full agreement with the plan. Medical Records Medical records reviewed: Yes I reviewed the patient's medical records. Lab Data Lab results reviewed: Yes I reviewed the patient's lab results. Labs: Laboratory Tests Range/Units 01/03/23 01/03/23 20:10 20:18 WBC (4.4-10.8) 10^3/uL 8.16 RBC (3.93-5.22) 10^6/uL 4.29 Hgb (11.2-15.7) g/dL 12.6 Hct (36.0-46.0) % 36.7 MCV (80-95) fL 86 MCH (27.0-33.0) pg 29.4 MCHC (32.0-36.0) % 34.3 RDW (11.7-14.6) % 12.9 Plt Count (130-400) 10^3/uL 310 MPV (8.0-11.0) fL 9.6 Immature Gran % 0.1 Neutrophils % 60.9 Lymphocytes % 28.9 Monocytes % 7.0 Eosinophils % 2.7 Basophils % 0.4 Nucleated RBC % (0.0-0.3) % 0.0 Absolute Neutrophils (1.2-6.7) 10^3/uL 4.97 Absolute Lymphocytes (1.2-3.4) 10^3/uL 2.36 Absolute Monocytes (0.1-0.8) 10^3/uL 0.57 Absolute Eosinophils (0.0-0.7) 10^3/uL 0.22 Absolute Basophils (0.0-0.2) 10^3/uL 0.03 VBG Lactate (0.6-1.4) mmol/L 0.8 Sodium (136-145) mmol/L 136 Potassium (3.5-5.1) mmol/L 3.6 Chloride (98-107) mmol/L 102 Carbon Dioxide (21.0-32.0) mmol/L 24.3 Anion Gap (3-11) mmol/L 9.7 BUN (7-18) mg/dL 9 Creatinine (0.55-1.02) mg/dL 0.6 Est GFR (CKD-EPI 2020) (mL/min/1.73m2) 124.53 Glucose (74-106) mg/dL 101 Calcium (8.5-10.1) mg/dL 9.5 Total Bilirubin (0.2-1.0) mg/dL 0.2 AST (15-37) U/L 10 L ALT (14-59) U/L 19 Alkaline Phosphatase (46-116) U/L 77 Total Protein (6.4-8.2) g/dL 6.9 Albumin (3.4-5.0) g/dL 2.8 L Urine Color (Yellow) Yellow Urine Clarity (Clear) Sl Cloudy Urine pH (5-8) 7.0 Ur Specific [place] (1.005-1.025) 1.020 Urine Protein (Negative) mg/dL Negative Urine Ketones (Negative) mg/dL Negative Urine Blood (Negative) Negative Urine Nitrite (Negative) Negative Urine Bilirubin (Negative) Negative Urine Urobilinogen (Up to 0.2) mg/dL 0.2 Ur Leukocyte Esterase (Negative) Negative Urine Glucose (Negative) mg/dL Negative HPI General Mode of arrival: ambulatory . Date/Time Provider Initiated Documentation: 01/03/23 20:04 . Limitations to Documentation: no limitations . Information obtained by: patient and old records reviewed . HPI Narrative: 27yo F with hypothyroid, obesity, currently 14w6d gestation by dating ultrasound on 12/14/22 presenting for RUQ abdominal pain for the past two hours. Symptoms started while sitting, cannot recall any injury or trauma to the area. Sharp, constant, no alleviating or aggravating factors. Does not radiate. No OTC medications taken. No associated symptoms; no fevers, chills, rash, vomiting (nausea at baseline, unchanged today), dysuria, hematuria, flank pain, vaginal bleeding, vaginal discharge, uterine cramping, or other concerns. This thus far uncomplicated, prior pregnancies c/b preeclampsia and gestational diabetes. Related Data Home Medications Medication Instructions Recorded Confirmed albuterol sulfate 90 mcg/actuation 2 inh inhalation Q6H PRN shortness 04/29/21 12/14/22 breath activated powder inhaler of breath or wheezing #1 ea (ProAir RespiClick) blood sugar diagnostic (FreeStyle #100 ea 05/22/21 12/14/22 Lite Strips) blood-glucose meter (FreeStyle #1 ea 05/22/21 12/14/22 Lite Meter kit) lancets 28 gauge (FreeStyle #100 ea 05/22/21 12/14/22 Lancets) acetaminophen 500 mg tablet 500 mg PO Q6H PRN pain #60 tabs 03/10/22 12/14/22 levothyroxine 150 mcg tablet 275 mcg PO DAILY 10/19/22 12/14/22 vitamin with calcium 1 tab PO DAILY #90 tabs 10/22/22 12/14/22 no.72-iron 27 mg-folic acid 1 mg tablet valacyclovir 1 gram tablet 1,000 mg PO PRN PRN 11/25/22 12/14/22 (Valtrex) Previous Rx's Medication Instructions Recorded albuterol sulfate 90 mcg/actuation 2 inh inhalation Q6H PRN shortness 04/29/21 breath activated powder inhaler of breath or wheezing #1 ea (ProAir RespiClick) blood sugar diagnostic (FreeStyle #100 ea 05/22/21 Lite Strips) blood-glucose meter (FreeStyle #1 ea 05/22/21 Lite Meter kit) lancets 28 gauge (FreeStyle #100 ea 05/22/21 Lancets) acetaminophen 500 mg tablet 500 mg PO Q6H PRN pain #60 tabs 03/10/22 vitamin with calcium 1 tab PO DAILY #90 tabs 10/22/22 no.72-iron 27 mg-folic acid 1 mg tablet Allergies Allergy/AdvReac Type Severity Reaction Status Date / Time No Known Allergies Allergy Verified 12/14/22 10:30 General Stated Complaint: Abd Prob JEANETTE: 3 Review of Systems Narrative: see HPI PFSH All Active Problems (Updated 01/03/23 @ 21:22 by Danay Mohamud MD) Abdominal pain affecting (Acute) History of Graves' disease (Acute) History of marijuana use (Acute) History of gestational diabetes (Acute) (Acute) Carpal tunnel syndrome, right (Acute) S/P ECTR: 03/10/2022 Carpal tunnel syndrome, left (Acute) TSH elevation (Acute) Post depression (Acute) H/O cold sores (Acute) De Quervain's tenosynovitis, right (Acute) S/P Release: 03/10/2022 De Quervain's tenosynovitis, left (Acute) Gestational diabetes mellitus (GDM) affecting (Acute) BMI 50.0-59.9, adult (Acute) Elevated liver enzymes (Acute) Fatty liver (Acute) incidental finding, patient reports she was heavy drinker in past and is aware of this finding Graves' disease (Acute) Recurrent genital HSV (herpes simplex virus) infection (Acute) Hypothyroidism (Chronic) see Carlos Nuñez MD, diagnosed age 12, graves disease Medical History (Updated 01/03/23 @ 21:22 by Danay Mohamud MD) Right flank pain renal scan is nml, problem resolved Heavy alcohol use ages [age], Post depression Depression ADHD (attention deficit hyperactivity disorder) evaluation High BMI 49 Cholangitis due to bile duct calculus with obstruction Choledocholithiasis with obstruction History of radioactive iodine thyroid ablation age 14 Epigastric abdominal pain Acute cholecystitis Asthma Intractable abdominal pain Morbidly obese Surgical History (Updated 12/14/22 @ 11:06 by Ansley Khanna CNM) History of carpal tunnel surgery of right wrist History of esophagogastroduodenoscopy (EGD) (~06/2020) H/O endoscopic retrograde cholangiopancreatography (~06/17/20) History of cholecystectomy (~02/15/20) Family History (Updated 12/14/22 @ 11:05 by Ansley Khanna CNM) Father Yanira's disease Hypertension Diabetes Mother Hypertension Retinal disease Kidney stones Brother Autism Retinal disease Oppositional defiant behavior Brother Retinal disease Brother Autism half brother Niece Autism high functioning Nephew Autism Social History (Updated 12/14/22 @ 14:45 by Ansley Khanna CNM) Smoking/Tobacco Use Status: Never Smoking risk assessment performed?: Yes Alcohol Intake: former Details: heavy drinking age [age]. Denies use now. Drug use: Occasionally Substance use type: former substance user and marijuana Details: Not since finding out about Housing: apartment Current gender identity: female Do you feel safe at home: Yes Do you feel safe in your relationship?: Yes Female Reproductive History Menstrual control method: none History History 2 Para 1 Hx # Term Pregnancies 1 Multiple births 0 Hx # Pregnancies 0 Ectopic pregnancies 0 AB induced 0 Hx Number of Living Children 1 AB spontaneous 0 Past Pregnancies Del. Date GA/Weeks # Preg Succ Route Wgt Sex Labor Lgth Anesth esia Location Prov Complic 08/08/17 40 No vaginal 3827.186 g Female [facility], vanishing twin 08/07/21 39 No Yes 3456 g Female [facility] Delivery Date: 08/08/17 Last Updated by: Ansley Khanna CNM Jailyn, Delivery Date: 08/07/21 Last Updated by: Ansley Khanna CNM GDM, GHTN, IOL, epidural worked poorly. Exam Narrative Exam Narrative: General: Alert, well appearing, in no acute distress. Head: Normocephalic, atraumatic Neck: Trachea midline, Neck supple. ENT: MMM. No oropharygeal lesions or exudate. Cardiac: RRR, no murmurs appreciated Resp: No respiratory distress. CTAB. Abd: Obese, soft, non-distended, mild RUQ TTP with no rebound or guarding. : No suprapubic tenderness. No CVA tenderness. No uterine contractions palpated. Extremities: No deformities. No peripheral edema. Neurologic: GCS 15. Moves all extremities freely against gravity Course Vital Signs Vital signs: Vital Signs Temperature 34.4 C L 01/03/23 20:09 Pulse 99 H 01/03/23 20:09 Respiratory Rate 16 01/03/23 20:09 Blood Pressure 133/76 01/03/23 20:09 Pulse Oximetry 98 01/03/23 20:09 Temperature 34.4 C L 01/03/23 20:26 Pulse 92 H 01/03/23 20:26 Respiratory Rate 16 01/03/23 20:26 Respiratory Effort Normal 01/03/23 20:18 Blood Pressure 119/70 01/03/23 20:26 Blood Pressure Position Sitting 01/03/23 20:26 Pulse Oximetry 98 01/03/23 20:26 Oxygen Delivery Method Room Air 01/03/23 20:26 Oxygen Flow Rate 0 01/03/23 20:09 Pain Level 6 01/03/23 20:26 Lab/Test Results Lab/Test Results: Laboratory Tests Range/Units 01/03/23 20:10 Urine Color (Yellow) Yellow Urine Clarity (Clear) Sl Cloudy Urine pH (5-8) 7.0 Ur Specific [place] (1.005-1.025) 1.020 Urine Protein (Negative) mg/dL Negative Urine Ketones (Negative) mg/dL Negative Urine Blood (Negative) Negative Urine Nitrite (Negative) Negative Urine Bilirubin (Negative) Negative Urine Urobilinogen (Up to 0.2) mg/dL 0.2 Ur Leukocyte Esterase (Negative) Negative Urine Glucose (Negative) mg/dL Negative POC- Test(urine) Positive
[2023-01-03 20:41] LABS: Lactate 0.8 mmol/L (0.6-1.4)
[2023-01-03 20:43] LABS: Abs Immature Grans 0.01 10^3/uL (0.0-0.06); Absolute Basophil Count 0.03 10^3/uL (0.0-0.2); Absolute Eosinophil Count 0.22 10^3/uL (0.0-0.7); Absolute Lymphocyte Count 2.36 10^3/uL (1.2-3.4); Absolute Monocyte Count 0.57 10^3/uL (0.1-0.8); Absolute Neutrophil Count 4.97 10^3/uL (1.2-6.7); Basophils % 0.4; Eosinophils % 2.7; HCT 36.7 % (36.0-46.0); HGB 12.6 g/dL (11.2-15.7); Immature Grans % 0.1; Lymphocytes % 28.9; MCH 29.4 pg (27.0-33.0); MCHC 34.3 % (32.0-36.0); MCV 86 fL (80-95); MPV 9.6 fL (8.0-11.0); Neutrophils % 60.9; Platelet Count 310 10^3/uL (130-400); RBC 4.29 10^6/uL (3.93-5.22); RDW 12.9 % (11.7-14.6); RDW-SD 39.8 fL; WBC 8.16 10^3/uL (4.4-10.8)
[2023-01-03 21:04] LABS: ALT 19 U/L (14-59); AST 10 U/L (15-37); Albumin 2.8 g/dL (3.4-5.0); Alkaline Phosphatase 77 U/L (46-116); Anion Gap 9.7 mmol/L (3-11); BUN 9 mg/dL (7-18); Bilirubin, Total 0.2 mg/dL (0.2-1.0); CO2 24.3 mmol/L (21.0-32.0); CREATININE 0.6 mg/dL (0.55-1.02); Calcium 9.5 mg/dL (8.5-10.1); Chloride 102 mmol/L (98-107); Estimated GFR 124.53 (mL/min/1.73m2); Glucose 101 mg/dL (74-106); Potassium 3.6 mmol/L (3.5-5.1); Sodium 136 mmol/L (136-145); Total Protein 6.9 g/dL (6.4-8.2)
[2023-01-03 21:33] VITALS: BP 98/51; PULSE 85; RESP 16; O2SAT 96
[2023-01-04 00:49] LABS: Lipase 50 U/L (16-77)
== END 2023-01-03 21:47 | disposition home or self-care (01) ==
PROVIDERS: Emergency Provider Student in an Organized Health Care Education/Training Program; PCP Nurse Practitioner Family
DX: O26.892 Other specified pregnancy related conditions, second trimester (principal); R10.11 Right upper quadrant pain; O99.282 Endocrine, nutritional and metabolic diseases complicating pregnancy, second trimester; E03.9 Hypothyroidism, unspecified; Z3A.15 15 weeks gestation of pregnancy
CPT/HCPCS: 80053; 83690; 96374; 99283; 81003; 83605; 85025; J0131

== ENCOUNTER 2023-01-04 10:04 | Emergency (ER) | payer MEDICAID, SELFPAY ==
[2023-01-04 10:16] VITALS: BP 134/80; PULSE 104; RESP 18; TEMP 37.2; O2SAT 97
--- NOTE | 2023-01-04 10:28 | ED.GENADUL_ITS ---
Discharge Plan Disposition Patient Disposition: Home Condition: Stable Discharge Details Clinical Impression: Abdominal pain of unknown cause Primary Care Provider: DAYAN MOJICA ED Provider: Vinod Gaspar Home Meds and New Rx's Prescriptions: Continued levothyroxine 150 mcg tablet 275 mcg PO DAILY Patient Comments: pt reports she is taking 275 mcg ProAir RespiClick 90 mcg/actuation aerosol powdr breath activated 2 inh inhalation Q6H PRN (Reason: shortness of breath or wheezing) Qty: 1 0RF (DME) blood-glucose meter [FreeStyle Lite Meter] Kit See Rx Instructions .Route Qty: 1 0RF Rx Instructions: As directed (DME) FreeStyle Lite Strips Strip See Rx Instructions .Route Qty: 100 3RF Rx Instructions: QID (DME) lancets [FreeStyle Lancets] 28 gauge misc See Rx Instructions .Route Qty: 100 3RF Rx Instructions: QID PNV,calcium 60-mhkw-ymlfn acid 27 mg iron- 1 mg tablet 1 tab PO DAILY Qty: 90 4RF Rx Instructions: give with food (meal/snack) acetaminophen 500 mg tablet 500 mg PO Q6H PRN (Reason: pain) Qty: 60 2RF valacyclovir [Valtrex] 1 gram tablet 1,000 mg PO PRN PRN Discharge Instructions Instructions: Abdominal Pain (ED) Additional Instructions: You were seen in the emergency department for your right-sided abdominal pain, you had normal labs last night, and a lipase that we could not run last night is totally normal, your ultrasound shows no abnormality in the kidney or biliary tree, I do not suspect they have a retained gallstone from your past cholecystectomy, I do not suspect you have had a kidney stone pass, he had a normal urine last night, there is no signs of major infection on your laboratory work-up, this may be a muscle strain. Please take Tylenol as needed. Please call the OB office in the morning and they will follow-up with you, return to the emergency department for any severe increase in pain especially with fever, you did have mildly low magnesium which you can supplement with your vitamins and normal dietary intake. Referrals: [facility] [Provider Group] DAYAN MOJICA, [employer] [Primary Care Provider] - Discharge Data Discharge Date/Time-TO BE ENTERED AT DEPARTURE: 01/04/23 14:28 Medical Decision Making This dictation utilizes alsof-ce-[id number] dictation software and may contain unedited grammatical errors. 27 y/o F presents to ED today with a chief complaint of R sided abdominal pain, ongoing since last night- seen here with reassuring labs in [facility] afterhours care, and unable to run a lipase due to mechanical breakdown- has history of cholecystectomy. Onset and characteristics include R sided constant abdominal pain, normal bowel movements, no intractable nausea/vomiting, no constipation, no fevers, no vaginal discomfort or bleeding. Patient has relevant history of fatty liver. Family and social history: noncontributory. Pertinent exam findings / vital signs include R sided ABD tenderness without Woody's sign, no Rovsing's, question mild CVA tenderness. Differential / pathologies of concern include renal colic, abdominal muscle strain, retained gallstone s/p cholecystectomy/choledocholithiasis, NOT SBO, NOT sepsis, possible gastritis. Diagnostic studies of: -Lipase, WNL -U/S ABD- RUQ/Renal, no stones, no hydronephrosis, CBD normal diameter. Interventions of: -none. ED Course: No acute complications during visit, the patient has an acute uncomplicated illness without systemic signs of illness. Findings not consistent with choledocholithiasis, cholecystitis, status postcholecystectomy, the patient may have renal colic but has normal renal function with a benign UA last night had a benign CBC and CMP last night save for mild hypomagnesemia which would likely resolve with normal dietary intake. Did arrange for close follow-up with the patient through our OB service. The patient was comfortable with this plan. Disposition of Abdominal Pain of Unknown Cause. Assessment/Plan: Close follow-up with OBGYN, taking Tylenol PRN. Patient verbalized understanding of the plan and return to ED criteria and engaged in shared decision making. Medical Records Medical records reviewed: Yes I reviewed the patient's medical records. Imaging Data Radiologic Study: Imaging: Ultrasound Radiologist's impression: EXAM: US ABDOMEN RENAL CLINICAL HISTORY: R flank RUQ tenderness TECHNIQUE: Ultrasound abdomen performed using standard protocol. COMPARISON: No exams were available for comparison FINDINGS: The patient is 15 weeks . ABDOMINAL AORTA AND IVC: Visualized portions normal caliber. PANCREAS: Normal where visualized. LIVER: Normal. Hepatopedal flow in the Portal Vein. The liver measures 17.9 cm in length. GALLBLADDER: Status post cholecystectomy. BILIARY SYSTEM: Common bile duct measures < 7 mm. No intrahepatic biliary ductal dilation. SPLEEN: 13.6 cm. ASCITES: None seen. Renal size in cm: Right: 12.1. Left: 11.1. Echogenicity: Normal. Hydronephrosis: No. Cyst or mass: No. Nephrolithiasis: No. Other findings: None. Bladder:Normal. Ureteral jets: Right: Visualized and unremarkable. Left: Visualized and unremarkable. Prevoid vol:342 cc Postvoid vol:0 cc Renal color flow: Symmetric and within normal limits. IMPRESSION: 1. Mild hepatosplenomegaly. 2. No evidence of obstructive uropathy. 3. Status post cholecystectomy. No biliary ductal dilatation. Lab Data Labs: Laboratory Tests Range/Units 01/04/23 10:44 Lipase (16-77) U/L 35 HPI General Date/Time Provider Initiated Documentation: 01/04/23 10:06 . HPI Narrative: 27 year-old female presents to ED today by POV/ambulating with her spouse and child, she is 15 weeks with confirmed IUP, with a chief complaint of continued R sided abdominal pain with negative labs last night, discharged with reassurance and no image as [facility]/S was unavailable with onset last night- roberto ent has not experienced any worsening today. Quality described as constant dull pain, no radiation to intractable nausea/vomiting, fever, chest pain, cough, constipation, dysuria, vaginal cramping or bleeding. Severity is described as moderate/10. Palliating factors include nothing specific attempted. Provoking factors include nothing specific. Events leading up to the incident/Associated Symptoms: Patient has cholecystectomy in remote history, states history of indigestion. Patient not anticoagulated. Related Data Home Medications Medication Instructions Recorded Confirmed albuterol sulfate 90 mcg/actuation 2 inh inhalation Q6H PRN shortness 04/29/21 01/04/23 breath activated powder inhaler of breath or wheezing #1 ea (ProAir RespiClick) blood sugar diagnostic (FreeStyle #100 ea 05/22/21 01/04/23 Lite Strips) blood-glucose meter (FreeStyle #1 ea 05/22/21 01/04/23 Lite Meter kit) lancets 28 gauge (FreeStyle #100 ea 05/22/21 01/04/23 Lancets) acetaminophen 500 mg tablet 500 mg PO Q6H PRN pain #60 tabs 03/10/22 01/04/23 levothyroxine 150 mcg tablet 275 mcg PO DAILY 10/19/22 01/04/23 vitamin with calcium 1 tab PO DAILY #90 tabs 10/22/22 01/04/23 no.72-iron 27 mg-folic acid 1 mg tablet valacyclovir 1 gram tablet 1,000 mg PO PRN PRN 11/25/22 01/04/23 (Valtrex) Previous Rx's Medication Instructions Recorded albuterol sulfate 90 mcg/actuation 2 inh inhalation Q6H PRN shortness 04/29/21 breath activated powder inhaler of breath or wheezing #1 ea (ProAir RespiClick) blood sugar diagnostic (FreeStyle #100 ea 05/22/21 Lite Strips) blood-glucose meter (FreeStyle #1 ea 05/22/21 Lite Meter kit) lancets 28 gauge (FreeStyle #100 ea 05/22/21 Lancets) acetaminophen 500 mg tablet 500 mg PO Q6H PRN pain #60 tabs 03/10/22 vitamin with calcium 1 tab PO DAILY #90 tabs 10/22/22 no.72-iron 27 mg-folic acid 1 mg tablet Allergies Allergy/AdvReac Type Severity Reaction Status Date / Time No Known Allergies Allergy Verified 01/04/23 10:19 General Stated Complaint: Abd Prob JEANETTE: 3 Review of Systems All systems reviewed & are unremarkable except as noted in HPI and below PFSH All Active Problems (Updated 01/04/23 @ 14:22 by IBETH Virk) Abdominal pain of unknown cause (Acute) Abdominal pain affecting (Acute) History of Graves' disease (Acute) History of marijuana use (Acute) History of gestational diabetes (Acute) (Acute) Carpal tunnel syndrome, right (Acute) S/P ECTR: 03/10/2022 Carpal tunnel syndrome, left (Acute) TSH elevation (Acute) Post depression (Acute) H/O cold sores (Acute) De Quervain's tenosynovitis, right (Acute) S/P Release: 03/10/2022 De Quervain's tenosynovitis, left (Acute) Gestational diabetes mellitus (GDM) affecting (Acute) BMI 50.0-59.9, adult (Acute) Elevated liver enzymes (Acute) Fatty liver (Acute) incidental finding, patient reports she was heavy drinker in past and is aware of this finding Graves' disease (Acute) Recurrent genital HSV (herpes simplex virus) infection (Acute) Hypothyroidism (Chronic) see Carlos Nuñez MD, diagnosed age 12, graves disease Medical History (Updated 01/04/23 @ 14:22 by IBETH Virk) Right flank pain renal scan is nml, problem resolved Heavy alcohol use ages [age], Post depression Depression ADHD (attention deficit hyperactivity disorder) evaluation High BMI 49 Cholangitis due to bile duct calculus with obstruction Choledocholithiasis with obstruction History of radioactive iodine thyroid ablation age 14 Epigastric abdominal pain Acute cholecystitis Asthma Intractable abdominal pain Morbidly obese Surgical History (Updated 12/14/22 @ 11:06 by Ansley Khanna CNM) History of carpal tunnel surgery of right wrist History of esophagogastroduodenoscopy (EGD) (~06/2020) H/O endoscopic retrograde cholangiopancreatography (~06/17/20) History of cholecystectomy (~02/15/20) Family History (Updated 12/14/22 @ 11:05 by Ansley Khanna CNM) Father Yanira's disease Hypertension Diabetes Mother Hypertension Retinal disease Kidney stones Brother Autism Retinal disease Oppositional defiant behavior Brother Retinal disease Brother Autism half brother Niece Autism high functioning Nephew Autism Social History (Updated 12/14/22 @ 14:45 by Ansley Khanna CNM) Smoking/Tobacco Use Status: Never Smoking risk assessment performed?: Yes Alcohol Intake: former Details: heavy drinking age [age]. Denies use now. Drug use: Current Sobriety Substance use type: former substance user Details: Not since finding out about Housing: apartment Current gender identity: female Do you feel safe at home: Yes Do you feel safe in your relationship?: Yes Female Reproductive History Menstrual control method: none History History 2 Para 1 Hx # Term Pregnancies 1 Multiple births 0 Hx # Pregnancies 0 Ectopic pregnancies 0 AB induced 0 Hx Number of Living Children 1 AB spontaneous 0 Past Pregnancies Del. Date GA/Weeks # Preg Succ Route Wgt Sex Labor Lgth Anesth esia Location [facility] 08/08/17 40 No vaginal 3827.186 g Female [facility], vanishing twin 08/07/21 39 No Yes 3456 g Female [facility] Delivery Date: 08/08/17 Last Updated by: Ansley Khanna CNM Jailyn, Delivery Date: 08/07/21 Last Updated by: Ansley Khanna CNM GDM, GHTN, IOL, epidural worked poorly. Exam Narrative Exam Narrative: GENERAL APPEARANCE: Well-nourished, non-toxic, awake and alert, atraumatic, no acute distress. SKIN: Warm, pink, dry, intact, without rashes/lesions/ulcerations. HEAD: Normocephalic, atraumatic, normal hair distribution for gender/age. EYES: Pupils PERRLA, EOMs intact without nystagmus, normal conjunctiva, no exudates on lids/lashes. ENT: Nares patent, no circumoral cyanosis, no facial swelling NECK: Supple, trachea midline, painless cervical ROM. LUNGS/CHEST: Non-labored respirations, normal A/P diameter, symmetrical expansion, no chest wall deformity HEART (CV/PV): Regular rate and rhythm without murmur, no peripheral edema, no JVD. ABDOMEN: Soft, non-distended, no guarding, R CVA mild tenderness to percussion, RUQ tenderness without Woody's sign, no Rovsing's, no McBurney's point tende rness. Pelvic exam deferred, no vaginal symptoms, has OB care. MSK: Normal ROM, no swelling/deformity to bilateral UEs or LEs, moving all extremities without weakness, no cyanosis, spine midline without tenderness, normal curvature. NEURO: Mental Status AAOx4 - alert to person, place, time, events No facial droop, no forehead involvement. Motor: No focal weakness - strength 5/5 in bilateral UEs and LEs, proximal and distal, symmetric. Sensory: sensation intact to light touch globally. Gait normal: patient ambulated without ataxia into ED room. PSYCH: euthymic, cooperative, pleasant, appropriate speech Course Vital Signs Vital signs: Vital Signs Temperature 37.2 C 01/04/23 10:16 Pulse 104 H 01/04/23 10:16 Respiratory Rate 18 01/04/23 10:16 Blood Pressure 134/80 01/04/23 10:16 Pulse Oximetry 97 01/04/23 10:16 Temperature 37.2 C 01/04/23 10:16 Temperature Source Temporal Artery Scan 01/04/23 10:16 Pulse 104 H 01/04/23 10:16 Respiratory Rate 18 01/04/23 10:16 Respiratory Effort Normal, Non-Labored 01/04/23 10:20 Blood Pressure 134/80 01/04/23 10:16 Blood Pressure Position Sitting 01/04/23 10:16 Pulse Oximetry 97 01/04/23 10:16 Oxygen Delivery Method Room Air 01/04/23 10:16 Oxygen Flow Rate 0 01/04/23 10:16
[2023-01-04 11:01] LABS: Lipase 35 U/L (16-77)
[2023-01-04 13:58] VITALS: BP 117/67; PULSE 89; RESP 18; TEMP 37.1; O2SAT 100
== END 2023-01-04 14:28 | disposition home or self-care (01) ==
PROVIDERS: Emergency Provider Physician Assistant; PCP Nurse Practitioner Family
DX: O26.892 Other specified pregnancy related conditions, second trimester (principal); R10.11 Right upper quadrant pain; Z3A.15 15 weeks gestation of pregnancy; Z90.49 Acquired absence of other specified parts of digestive tract
CPT/HCPCS: 36415; 76770; 83690; 99283; 76700

== ENCOUNTER 2023-01-12 01:24 | Outpatient (CLI) | payer MEDICAID, SELFPAY ==
[2023-01-14 11:23] LABS: AFP 22.2 ng/mL; Calculated age at EDD 29 years; Cigarette smoking status non-Smoker; GA used in risk estimate Scan estimate; IVF Pregnancy No; Initial or repeat testing Initial testing; Insulin dependent diabetes No; Maternal Weight 259 lbs; Number of Fetuses 1; Physician Phone Number 802-748-7300; Prev Pregnancy w/NTD No; RECOMMENDED FOLLOW UP None.; Results Summary Normal risk
== END 2023-01-12 01:25 | disposition home or self-care (01) ==
LOC: LBO 01:24
PROVIDERS: Advanced Practice Midwife; PCP Nurse Practitioner Family; Visit Provider Advanced Practice Midwife
DX: O99.282 Endocrine, nutritional and metabolic diseases complicating pregnancy, second trimester (principal); E03.9 Hypothyroidism, unspecified; O26.892 Other specified pregnancy related conditions, second trimester; K76.0 Fatty (change of) liver, not elsewhere classified; Z36.89 Encounter for other specified antenatal screening; Z3A.16 16 weeks gestation of pregnancy
CPT/HCPCS: 36415; 82105

== ENCOUNTER 2023-01-12 09:37 | Outpatient (REF) | payer MEDICAID, SELFPAY ==
[2023-01-13 14:36] LABS: Chlamydia Result Negative (Negative); GC Result Negative (Negative)
== END 2023-01-12 09:38 | disposition home or self-care (01) ==
LOC: LBN 09:37
PROVIDERS: PCP Nurse Practitioner Family; Visit Provider Advanced Practice Midwife
DX: Z34.92 Encounter for supervision of normal pregnancy, unspecified, second trimester (principal); Z11.3 Encounter for screening for infections with a predominantly sexual mode of transmission; Z3A.16 16 weeks gestation of pregnancy
CPT/HCPCS: 87491; 87591

== ENCOUNTER 2023-01-17 18:04 | Emergency (ER) | payer MEDICAID, SELFPAY ==
[2023-01-17 18:11] VITALS: BP 136/83; PULSE 104; RESP 16; TEMP 37; O2SAT 98
[2023-01-17 19:08] LABS: Bilirubin Negative (Negative); Blood Negative (Negative); Clarity Sl Cloudy (Clear); Glucose Negative (Negative); Ketones Trace mg/dL (Negative); Leukocyte Esterase Negative (Negative); Nitrite Negative (Negative); Specific Gravity 1.025 (1.005-1.025); Urobilinogen 0.2 mg/dL (Up to 0.2)
--- NOTE | 2023-01-17 19:29 | W.ED.GENAD ---
Discharge Plan Disposition Patient Disposition: Home Condition: Stable Discharge Details Clinical Impression: Candidiasis of vagina Primary Care Provider: DAYAN MOJICA ED Provider: Marino Bowen Home Meds and New Rx's Prescriptions: New clotrimazole [Clotrimazole-7] 1 % cream 1 appful vaginal QHS 7 Days Qty: 45 0RF Continued ProAir RespiClick 90 mcg/actuation aerosol powdr breath activated 2 inh inhalation Q6H PRN (Reason: shortness of breath or wheezing) Qty: 1 0RF (DME) blood-glucose meter [FreeStyle Lite Meter] Kit See Rx Instructions .Route Qty: 1 0RF Rx Instructions: As directed (DME) FreeStyle Lite Strips Strip See Rx Instructions .Route Qty: 100 3RF Rx Instructions: QID (DME) lancets [FreeStyle Lancets] 28 gauge misc See Rx Instructions .Route Qty: 100 3RF Rx Instructions: QID PNV,calcium 95-vhbi-qhbnc acid 27 mg iron- 1 mg tablet 1 tab PO DAILY Qty: 90 4RF Rx Instructions: give with food (meal/snack) acetaminophen 500 mg tablet 500 mg PO Q6H PRN (Reason: pain) Qty: 60 2RF valacyclovir [Valtrex] 1 gram tablet 1,000 mg PO PRN PRN Changed levothyroxine 150 mcg tablet 275 mcg PO DAILY Qty: 0 0RF Patient Comments: pt reports she is taking 275 mcg Discharge Instructions Instructions: Yeast Infection (ED) Additional Instructions: Please follow-up with your OB provider for recheck. Your labs did show that you have a slight yeast infection in your vagina. You have been prescribed vaginal clinic cream please use this nightly for the next week and if not improving again follow-up with women's wellness. Feel free to return the emergency department for any new or significant worsening of symptoms. Referrals: [facility] [Provider Group] - 1 week Discharge Data Discharge Date/Time-TO BE ENTERED AT DEPARTURE: 01/17/23 19:55 Medical Decision Making Patient presenting to the emergency department for chief complaint of vaginal discomfort. Patient reports 3 days ago she had sexual intercourse with her partner and approximately 12 hours later started having some vaginal discomfort. She states since then noting some increased vaginal thickening but denies any odor, urinary symptoms, loss of fluids or bleeding and denies all other symptoms. Patient states that she has no history of other sexually transmitted infections except for rarely flareups of her genital herpes. Physical exam including vaginal exam does show some slight increase of discharge in the vaginal canal but otherwise unremarkable with no significant irritation, no laceration, no bleeding and no external or internal lesions noted. Vaginal swabs were sent. Urinalysis reviewed and did show some trace ketones otherwise unremarkable and no signs of infection. Did consult with OB on-call who agreed with initial plan to hold off on any treatment until we have results given that patient just had negative testing approximately 5 days ago. Patient also looks very comfortable and in no signs of severe distress. Pending discharge I did get back the results and patient was positive for Meme so patient started on clotrimazole cream intravaginally and patient informed that we will contact her with any gonorrhea or chlamydia results. Patient otherwise follow-up with women's wellness. After discussion of diagnosis and plan of care patient has no further needs, questions, or concerns and states clear understanding to return to the emergency department for any worsening symptoms. This documentation was generated using iOmandoation system, please disregard any oddities of phrase or misspellings. Lab Data Lab results reviewed: Yes I reviewed the patient's lab results. HPI General Mode of arrival: ambulatory. Date/Time Provider Initiated Documentation: 01/17/23 18:21. Limitations to Documentation: no limitations. Information obtained by: patient and RN notes reviewed. History of Present Illness 27 year old F presents to the emergency department with the chief complaint of Vaginal irritation, described as mild and moderate, Patient started experiencing this day(s) (3) and it has been constant. No relieving factors improve symptom(s), Other factors that worsen symptoms (Sexual activity) . Patient notes no other symptoms.. Patient did receive the following treatments prior to arrival, none Related Data Home Medications Medication Instructions Recorded Confirmed albuterol sulfate 90 mcg/actuation 2 inh inhalation Q6H PRN shortness 04/29/21 01/17/23 breath activated powder inhaler of breath or wheezing #1 ea (ProAir RespiClick) blood sugar diagnostic (FreeStyle #100 ea 05/22/21 01/17/23 Lite Strips) blood-glucose meter (FreeStyle #1 ea 05/22/21 01/17/23 Lite Meter kit) lancets 28 gauge (FreeStyle #100 ea 05/22/21 01/17/23 Lancets) acetaminophen 500 mg tablet 500 mg PO Q6H PRN pain #60 tabs 03/10/22 01/17/23 vitamin with calcium 1 tab PO DAILY #90 tabs 10/22/22 01/17/23 no.72-iron 27 mg-folic acid 1 mg tablet valacyclovir 1 gram tablet 1,000 mg PO PRN PRN 11/25/22 01/17/23 (Valtrex) clotrimazole 1 % vaginal cream 1 appful vaginal QHS 7 days #45 01/17/23 (Clotrimazole-7) grams levothyroxine 150 mcg tablet 275 mcg (1.8333 x 150 mcg) PO 01/17/23 01/17/23 DAILY #0 tabs Previous Rx's Medication Instructions Recorded albuterol sulfate 90 mcg/actuation 2 inh inhalation Q6H PRN shortness 04/29/21 breath activated powder inhaler of breath or wheezing #1 ea (ProAir RespiClick) blood sugar diagnostic (FreeStyle #100 ea 05/22/21 Lite Strips) blood-glucose meter (FreeStyle #1 ea 05/22/21 Lite Meter kit) lancets 28 gauge (FreeStyle #100 ea 05/22/21 Lancets) acetaminophen 500 mg tablet 500 mg PO Q6H PRN pain #60 tabs 03/10/22 vitamin with calcium 1 tab PO DAILY #90 tabs 10/22/22 no.72-iron 27 mg-folic acid 1 mg tablet clotrimazole 1 % vaginal cream 1 appful vaginal QHS 7 days #45 01/17/23 (Clotrimazole-7) grams levothyroxine 150 mcg tablet 275 mcg (1.8333 x 150 mcg) PO 01/17/23 DAILY #0 tabs Allergies Allergy/AdvReac Type Severity Reaction Status Date / Time No Known Allergies Allergy Verified 01/17/23 18:31 General Stated 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 JEANETTE: 4 Review of Systems Constitutional Constitutional: Denies chills and Denies fever(s) Gastrointestinal Gastrointestinal: Denies abdominal pain and Denies diarrhea Genitourinary Genitourinary: Reports as per HPI, Denies abnormal vaginal bleeding, Denies difficulty voiding, Denies genital lesions, Denies dyspareunia, Denies dysuria, Denies pelvic pain, Denies urinary incontinence and Reports vaginal discharge (Slightly thickened white discharge) PFSH All Active Problems (Updated 01/17/23 @ 19:40 by Marino Bowen NP) Candidiasis of vagina (Acute) Abdominal pain of unknown cause (Acute) Abdominal pain affecting (Acute) History of Graves' disease (Acute) History of marijuana use (Acute) History of gestational diabetes (Acute) (Acute) Carpal tunnel syndrome, right (Acute) S/P ECTR: 03/10/2022 Carpal tunnel syndrome, left (Acute) TSH elevation (Acute) Post depression (Acute) H/O cold sores (Acute) De Quervain's tenosynovitis, right (Acute) S/P Release: 03/10/2022 De Quervain's tenosynovitis, left (Acute) Gestational diabetes mellitus (GDM) affecting (Acute) BMI 50.0-59.9, adult (Acute) Elevated liver enzymes (Acute) Fatty liver (Acute) incidental finding, patient reports she was heavy drinker in past and is aware of this finding Graves' disease (Acute) Recurrent genital HSV (herpes simplex virus) infection (Acute) Hypothyroidism (Chronic) see Carlos Nuñez MD, diagnosed age 12, graves disease Medical History Right flank pain renal scan is nml, problem resolved Heavy alcohol use ages [age], Post depression Depression ADHD (attention deficit hyperactivity disorder) evaluation High BMI 49 Cholangitis due to bile duct calculus with obstruction Choledocholithiasis with obstruction History of radioactive iodine thyroid ablation age 14 Epigastric abdominal pain Acute cholecystitis Asthma Intractable abdominal pain Morbidly obese Surgical History History of carpal tunnel surgery of right wrist History of esophagogastroduodenoscopy (EGD) (~06/2020) H/O endoscopic retrograde cholangiopancreatography (~06/17/20) History of cholecystectomy (~02/15/20) Family History Father Yanira's disease Hypertension Diabetes Mother Hypertension Retinal disease Kidney stones Brother Autism Retinal disease Oppositional defiant behavior Brother Retinal disease Brother Autism half brother Niece Autism high functioning Nephew Autism Social History Smoking/Tobacco Use Status: Never Smoking risk assessment performed?: Yes Alcohol Intake: former Details: heavy drinking age [age]. Denies use now. Drug use: Current Sobriety Substance use type: former substance user Details: Not since finding out about Housing: apartment Current gender identity: female Do you feel safe at home: Yes Do you feel safe in your relationship?: Yes Female Reproductive History Menstrual control method: none History History 2 Para 1 Hx # Term Pregnancies 1 Multiple births 0 Hx # Pregnancies 0 Ectopic pregnancies 0 AB induced 0 Hx Number of Living Children 1 AB spontaneous 0 Past Pregnancies Del. Date GA/Weeks # Preg Succ Route Wgt Sex Labor Lgth Anesthesia Location Prov Complic 08/08/17 40 No vaginal 3827.186 g Female [facility], vanishing twin 08/07/21 39 No Yes 3456 g Female [facility] Delivery Date: 08/08/17 Last Updated by: Ansley Khanna CNM Jailyn, Delivery Date: 08/07/21 Last Updated by: Ansley Khanna CNM GDM, GHTN, IOL, epidural worked poorly. Exam Const General: cooperative, no acute distress and not ill appearing Orientation: alert, awake and oriented x3 HENMT Mouth: moist mucous membranes Resp Effort & Inspection: normal respiratory effort, able to speak in complete sentences and no respiratory distress External Female Exam: normal external appearance and normal appearance of the urethra Speculum Exam - Vagina: normal appearance of the vagina, abnormal vaginal discharge white, no cysts, not erythematous, no foreign bodies, no lacerations, no lesions, No vaginal bleeding and no masses Speculum Exam - Cervix: normal appearance of the cervix Bimanual Exam- Adnexa, other: no tenderness OB/External & Speculum: no foreign bodies and No vaginal bleeding Skin General skin exam: no rashes or lesions noted Neuro General: patient alert, patient awake, patient oriented x3, moves all extremities and no focal motor deficits Sensory Exam: no sensory deficits noted Course Vital Signs Vital signs: Vital Signs Temperature 37 C 01/17/23 18:11 Pulse 104 H 01/17/23 18:11 Respiratory Rate 16 01/17/23 18:11 Blood Pressure 136/83 01/17/23 18:11 Pulse Oximetry 98 01/17/23 18:11 Temperature 37 C 01/17/23 18:11 Temperature Source Temporal Artery Scan 01/17/23 18:11 Pulse 104 H 01/17/23 18:11 Respiratory Rate 16 01/17/23 18:11 Respiratory Effort Normal, Non-Labored 01/17/23 18:16 Blood Pressure 136/83 01/17/23 18:11 Blood Pressure Position Sitting 01/17/23 18:11 Pulse Oximetry 98 01/17/23 18:11 Oxygen Delivery Method Room Air 01/17/23 18:11 Oxygen Flow Rate 0 01/17/23 18:11 Lab/Test Results Lab/Test Results: 01/17/23 18:35 Vaginal Vaginitis Screen - Pending Laboratory Tests Range/Units 01/17/23 18:53 Urine Color (Yellow) Yellow Urine Clarity (Clear) Sl Cloudy Urine pH (5-8) 7.0 Ur Specific [place] (1.005-1.025) 1.025 Urine Protein (Negative) mg/dL Negative Urine Ketones (Negative) mg/dL Trace H Urine Blood (Negative) Negative Urine Nitrite (Negative) Negative Urine Bilirubin (Negative) Negative Urine Urobilinogen (Up to 0.2) mg/dL 0.2 Ur Leukocyte Esterase (Negative) Negative Urine Glucose (Negative) mg/dL Negative
[2023-01-17 19:53] VITALS: BP 130/78; PULSE 94; RESP 16; O2SAT 98
[2023-01-19 13:42] LABS: Chlamydia Result Negative (Negative); GC Result Negative (Negative)
== END 2023-01-17 19:55 | disposition home or self-care (01) ==
PROVIDERS: Emergency Provider Nurse Practitioner Family; PCP Nurse Practitioner Family
DX: O98.812 Other maternal infectious and parasitic diseases complicating pregnancy, second trimester (principal); B37.31 Acute candidiasis of vulva and vagina; Z3A.17 17 weeks gestation of pregnancy
CPT/HCPCS: 87491; 87591; 99283; 81003; 87480; 87510; 87660; 99282

== ENCOUNTER → 2023-02-02 00:32 | Outpatient (CLI) | payer MEDICAID, SELFPAY ==
--- NOTE | 2023-02-02 07:12 | DI.US_ITS ---
Exam(s) US OB 2-3 TRIMESTER EXAM: US OB 2-3 TRIMESTER CLINICAL HISTORY: ,Z34.90. TECHNIQUE: Transabdominal obstetrical ultrasound performed. COMPARISON: US POCUS EXAM from 12/14/2022 US US ABDOMEN RENAL from 01/04/2023 US POCUS EXAM from 01/12/2023 FINDINGS: Number of fetuses: One. position: Vertex. Placental grade: 1 Placental location: Posterior. No evidence of previa. BIOMETRIC DATA: BPD: 44mm = 19+ 2 weeks HC: 166mm = 19+ 2 weeks AC: 149mm = 20+ 1 weeks FL: 30mm = 21+2 weeks Cisterna Magna: 4 mm Cerebellum: 1.8 cm EFW: 358 grms greater than 97% Composite Age: 20+ 0 weeks EDC by US: June 22 Heart Rate: 133BPM Amniotic fluid : Amount of fluid is within normal limits. ANATOMICAL SURVEY: Four-chambered heart: Unremarkable. LVOT: Unremarkable. RVOT: Unremarkable. Left-sided stomach: Unremarkable. urinary bladder: Unremarkable. Bilateral kidneys: Unremarkable. Three-vessel cord: Unremarkable. Cord insertion: Unremarkable. Posterior fossa:Unremarkable. ventricles: Unremarkable. nose: Unremarkable. lips: Unremarkable. palate: Unremarkable. spine: Unremarkable. Two arms and two legs: Unremarkable. IMPRESSION: 1. Single live intrauterine gestation as above. 2. Normal anatomic survey. DATA REPOSITORY:
== END ==
PROVIDERS: PCP Nurse Practitioner Family; Visit Provider Advanced Practice Midwife
DX: Z34.92 Encounter for supervision of normal pregnancy, unspecified, second trimester (principal)
CPT/HCPCS: 76805

== ENCOUNTER 2023-02-02 15:35 | Outpatient (CLI) | payer MEDICAID, SELFPAY ==
[2023-02-02 11:55] LABS: FREE T4 1.19 ng/dL (0.76-1.46); TSH 0.41 uIU/mL (0.36-3.74)
== END 2023-02-02 15:36 | disposition home or self-care (01) ==
LOC: LBO 15:36
PROVIDERS: PCP Nurse Practitioner Family; Visit Provider Internal Medicine Endocrinology, Diabetes & Metabolism
DX: E89.0 Postprocedural hypothyroidism (principal)
CPT/HCPCS: 36415; 84439; 84443

== ENCOUNTER 2023-02-10 09:38 | Outpatient (REF) | payer MEDICAID, SELFPAY ==
[2023-02-12 13:36] LABS: Helicobacter pylori Ag, Feces Negative (Negative)
== END 2023-02-10 09:39 | disposition home or self-care (01) ==
LOC: LBN 09:38
PROVIDERS: PCP Nurse Practitioner Family; Visit Provider Surgery
DX: R10.9 Unspecified abdominal pain (principal); Z86.19 Personal history of other infectious and parasitic diseases; Z33.1 Pregnant state, incidental; Z3A.20 20 weeks gestation of pregnancy
CPT/HCPCS: 87338

== ENCOUNTER 2023-03-05 02:45 | Outpatient (CLI) | payer MEDICAID, SELFPAY ==
[2023-03-05 11:48] LABS: FREE T4 1.31 ng/dL (0.76-1.46); TSH 0.21 uIU/mL (0.36-3.74)
== END 2023-03-05 02:46 | disposition home or self-care (01) ==
PROVIDERS: PCP Nurse Practitioner Family; Visit Provider Internal Medicine Endocrinology, Diabetes & Metabolism
DX: E89.0 Postprocedural hypothyroidism (principal)
CPT/HCPCS: 36415; 84439; 84443

== ENCOUNTER 2023-03-16 02:14 | Emergency (ER) | payer MEDICAID, SELFPAY ==
[2023-03-16 02:21] VITALS: BP 131/76; PULSE 89; RESP 18; TEMP 37.1; O2SAT 98
--- NOTE | 2023-03-16 02:28 | ED.GENADUL_ITS ---
HPI General Stated Complaint: EarProblem JEANETTE: 4 Date/Time Provider Initiated Documentation: 03/16/23 02:23. HPI Narrative: This is a pleasant 27-year-old female currently 25 weeks with a past medical history of cholecystectomy, Graves' disease with subsequent hypothyroidism after thyroid ablation, gestational diabetes, reactive airway disease, who presents with right-sided ear pain that started at 6 PM. She admits to a day or so of runny nose and congestion. She denies fever or chills. No headache. No cough or shortness of breath. No other complaints at this time. Related Data Home Medications Medication Instructions Recorded Confirmed albuterol sulfate 90 mcg/actuation 2 inh inhalation Q6H PRN shortness 04/29/21 03/16/23 breath activated powder inhaler of breath or wheezing #1 ea (ProAir RespiClick) acetaminophen 500 mg tablet 500 mg PO Q6H PRN pain #60 tabs 03/10/22 03/16/23 vitamin with calcium 1 tab PO DAILY #90 tabs 10/22/22 03/16/23 no.72-iron 27 mg-folic acid 1 mg tablet valacyclovir 1 gram tablet 1,000 mg PO PRN PRN 11/25/22 03/16/23 (Valtrex) levothyroxine 150 mcg tablet 250 mcg PO DAILY 02/08/23 03/16/23 amoxicillin 875 mg-potassium 1 tab PO BID 7 days #14 tabs 03/16/23 clavulanate 125 mg tablet sucralfate 1 gram tablet (Carafate) 1 g PO Q6H 03/16/23 03/16/23 Previous Rx's Medication Instructions Recorded albuterol sulfate 90 mcg/actuation 2 inh inhalation Q6H PRN shortness 04/29/21 breath activated powder inhaler of breath or wheezing #1 ea (ProAir RespiClick) acetaminophen 500 mg tablet 500 mg PO Q6H PRN pain #60 tabs 03/10/22 vitamin with calcium 1 tab PO DAILY #90 tabs 10/22/22 no.72-iron 27 mg-folic acid 1 mg tablet amoxicillin 875 mg-potassium 1 tab PO BID 7 days #14 tabs 03/16/23 clavulanate 125 mg tablet Allergies Allergy/AdvReac Type Severity Reaction Status Date / Time No Known Allergies Allergy Verified 03/16/23 02:27 Review of Systems All systems reviewed & are unremarkable except as noted in HPI and below PFSH All Active Problems Bilateral otitis media (Acute) Hx of Helicobacter infection (Acute) History of Graves' disease (Acute) History of marijuana use (Acute) History of gestational diabetes (Acute) (Acute) Carpal tunnel syndrome, right (Acute) S/P ECTR: 03/10/2022 Carpal tunnel syndrome, left (Acute) Post depression (Acute) H/O cold sores (Acute) De Quervain's tenosynovitis, right (Acute) S/P Release: 03/10/2022 De Quervain's tenosynovitis, left (Acute) BMI 50.0-59.9, adult (Acute) Elevated liver enzymes (Acute) Fatty liver (Acute) incidental finding, patient reports she was heavy drinker in past and is aware of this finding Graves' disease (Acute) Recurrent genital HSV (herpes simplex virus) infection (Acute) Hypothyroidism (Chronic) see Carlos Nuñez MD, diagnosed age 12, graves disease Medical History TSH elevation Gestational diabetes mellitus (GDM) affecting Right flank pain renal scan is nml, problem resolved Heavy alcohol use ages [age], Post depression Depression ADHD (attention deficit hyperactivity disorder) evaluation High BMI 49 Cholangitis due to bile duct calculus with obstruction Choledocholithiasis with obstruction History of radioactive iodine thyroid ablation age 14 Epigastric abdominal pain Acute cholecystitis Asthma Intractable abdominal pain Morbidly obese Surgical History History of carpal tunnel surgery of right wrist History of esophagogastroduodenoscopy (EGD) (~06/2020) H/O endoscopic retrograde cholangiopancreatography (~06/17/20) History of cholecystectomy (~02/15/20) Family History Father Yanira's disease Hypertension Diabetes Mother Hypertension Retinal disease Kidney stones Brother Autism Retinal disease Oppositional defiant behavior Brother Retinal disease Brother Autism half brother Niece Autism high functioning Nephew Autism Social History Smoking/Tobacco Use Status: Never Smoking risk assessment performed?: Yes Alcohol Intake: former Details: heavy drinking age [age]. Denies use now. Drug use: Current Sobriety Substance use type: former substance user Details: Not since finding out about Housing: apartment Current gender identity: female Do you feel safe at home: Yes Do you feel safe in your relationship?: Yes Female Reproductive History Menstrual control method: none History History 3 Para 2 Hx # Term Pregnancies 2 Multiple births 0 Hx # Pregnancies 0 Ectopic pregnancies 0 AB induced 0 Hx Number of Living Children 2 AB spontaneous 0 Past Pregnancies Del. Date GA/Weeks # Preg Succ Route Wgt Sex Labor Lgth Anesth esia Location Prov Complic 08/08/17 40 No vaginal 3827.186 g Female [facility], vanishing twin 08/07/21 39 No Yes 3456 g Female [facility] Delivery Date: 08/08/17 Last Updated by: Sarah Doherty Spont labor, epidural, Jailyn Delivery Date: 08/07/21 Last Updated by: Sarah Doherty GDM, GHTN, IOL, epidural worked poorly. Luanne Exam Narrative Exam Narrative: 1.Const: Well-nourished, Well-developed, appearing stated age 2.Eyes: PERRL, no conjunctival injection, and symmetrical lids. 3.ENT: Atraumatic external nose and ears. Moist MM. Neck: Symmetric, trachea midline, No thyromegaly. Notable left and right-sided bilateral purulent otitis media. Bulging is present. No evidence of rupture 4.CVS: +S1/S2, No murmurs or gallops. Peripheral pulses 2+ and equal in all extremities. Brisk capillary refill in all extremities. 5.RESP: Unlabored respiratory effort. Clear to auscultation bilaterally. No wheezes rales or rhonchi 6.GI: Soft, Nontender/Nondistended, No hepatosplenomegaly. No guarding or rebound. 7.MSK: Normocephalic/Atraumatic, Extremities w/o deformity or ttp No cyanosis or clubbing, Normal movement of all extremities 8.Skin: Warm, Dry. No rashes or lesions. 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 Sensation grossly intact, no focal neurologic deficits. 10.Psych: (AAO) x3. Appropriate mood and affect Course Vital Signs Vital signs: Vital Signs Temperature 37.1 C 03/16/23 02:21 Pulse 89 03/16/23 02:21 Respiratory Rate 18 03/16/23 02:21 Blood Pressure 131/76 03/16/23 02:21 Pulse Oximetry 98 03/16/23 02:21 Temperature 37.1 C 03/16/23 02:21 Temperature Source Temporal Artery Scan 03/16/23 02:21 Pulse 89 03/16/23 02:21 Respiratory Rate 18 03/16/23 02:21 Respiratory Effort Normal 03/16/23 02:24 Blood Pressure 131/76 03/16/23 02:21 Pulse Oximetry 98 03/16/23 02:21 Oxygen Delivery Method Room Air 03/16/23 02:21 Oxygen Flow Rate 0 03/16/23 02:21 Pain Level 8 03/16/23 02:24 Medical Decision Making This is a pleasant 27-year-old female currently 25 weeks with a past medical history of cholecystectomy, Graves' disease with subsequent hypothyroidism after thyroid ablation, gestational diabetes, reactive airway disease, who presents with right-sided ear pain that started at 6 PM. She admits to a day or so of runny nose and congestion. She denies fever or chills. No headache. No cough or shortness of breath. No other complaints at this time. Exam demonstrates bilateral bulging otitis media with effusion and purulence. No rupture. Will give Augmentin and a prescription for home. Discussed red flags which to return. I have extensively reviewed the treatment plan and discharge instructions with the patient. I have addressed all patient concerns at this time. The patient was made aware of what symptoms to monitor for that would warrant a return to the emergency department. Discussed the plan with the patient, they demonstrate verbal understanding and agreement with our assessment and plan at this time. The documentation in this chart was dictated using Page[employer] dictation software. Please excuse any dictation errors. Quality:SDOH Health Related Social Needs: No Data to Display Discharge Plan Disposition Patient Disposition: Home Discharge Details Clinical Impression: Bilateral otitis media Primary Care Provider: DAYAN MOJICA ED Provider: Vinod Villa Home Meds and New Rx's Prescriptions: New amoxicillin-pot clavulanate 875-125 mg tablet 1 tab PO BID 7 Days Qty: 14 0RF No Action levothyroxine 150 mcg tablet 250 mcg PO DAILY Patient Comments: pt reports she is taking 250 mcg ProAir RespiClick 90 mcg/actuation aerosol powdr breath activated 2 inh inhalation Q6H PRN (Reason: shortness of breath or wheezing) Qty: 1 0RF PNV,calcium 21-kxnn-hrivz acid 27 mg iron- 1 mg tablet 1 tab PO DAILY Qty: 90 4RF Rx Instructions: give with food (meal/snack) acetaminophen 500 mg tablet 500 mg PO Q6H PRN (Reason: pain) Qty: 60 2RF sucralfate [Carafate] 1 gram tablet 1 g PO Q6H valacyclovir [Valtrex] 1 gram tablet 1,000 mg PO PRN PRN Discharge Instructions Instructions: Ear Infection (ED) Additional Instructions: At this time you unfortunately have an infection in both of your ears. Please take the antibiotic Augmentin as directed. It has been sent to your pharmacy on file. Please take Tylenol as needed for pain. If you notice any worsening of your symptoms, or any new symptoms such as vomiting, diarrhea, fever, chills, shortness of breath, chest pain, numbness, weakness, or fainting , please return immediately to the emergency department for reevaluation. Please follow up with your primary care provider as soon as possible for reassessment and reevaluation. As always, it was a pleasure participating in your medical care today. Referrals: DAYAN MOJICA SENIOR RESEARCH ANALYST [Primary Care Provider] -
[2023-03-16] MEDS: Amox. 875/Clav. 125, 2 TABS/BTL 1 TAB PO (02:37)
[2023-03-16] MEDS: Amoxicillin 875/Clav. 125 TAB PO (02:38)
== END 2023-03-16 02:39 | disposition home or self-care (01) ==
LOC: ER 02:44
PROVIDERS: Emergency Provider Student in an Organized Health Care Education/Training Program; PCP Nurse Practitioner Family
DX: H66.93 Otitis media, unspecified, bilateral; O26.892 Other specified pregnancy related conditions, second trimester; Z3A.25 25 weeks gestation of pregnancy
CPT/HCPCS: 99283

== ENCOUNTER 2023-03-20 16:16 | Emergency (ER) | payer MEDICAID, SELFPAY ==
[2023-03-20 16:19] VITALS: BP 143/75; PULSE 111; RESP 18; TEMP 36.7; O2SAT 98
[2023-03-20 16:26] VITALS: BP 124/73; PULSE 99; RESP 16; O2SAT 98
--- NOTE | 2023-03-20 16:39 | ED.GENADUL_ITS ---
HPI General Date/Time Provider Initiated Documentation: 03/20/23 16:39 . Information obtained by: patient . HPI Narrative: Time seen was 4:38 PM in bed 5. The patient is a 27-year-old female who is 26 weeks by dates. Her second was complicated by gestational diabetes and she delivered at [facility]. She tells me that she is followed by the midwives here and would like to deliver here but because of her previous high risk she is not sure where she is going to deliver. She was seen in the emergency department 6 days ago for ear pain and was diagnosed with bilateral otitis media and placed on amoxicillin which she is continuing to take. She presents today with 3 days of decreased energy and headache with crampy abdominal pain that comes and goes and both her headache and abdominal pain are 3 out of 10 in severity. She tells me that her 2 other daughters have also been sick once all the sustain engineer and she was diagnosed with a viral infection. The patient has not had a recent cough but did have one a few weeks ago when she was sick. She has electric heat in her home and does have a functional CO2 monitor. Her headache is frontal. It does not radiate. She has had no rashes no stiff neck. Her right ear she says is still slightly uncomfortable, but has not noted any discharge and associated with decreased hearing which she had at the onset of her symptoms. She did test herself for COVID at home and it was negative but was not tested at her last visit according to the patient. She has not called the [facility] on-call today. She denies any dysuria but her abdominal pain increases after urination but she denies any dysuria. She denies any numbness tingling weakness or fever she is endorsing decreased sleepiness. She has not taken any medications for her symptoms today. Related Data Home Medications Medication Instructions Recorded Confirmed albuterol sulfate 90 mcg/actuation 2 inh inhalation Q6H PRN shortness 04/29/21 03/20/23 breath activated powder inhaler of breath or wheezing #1 ea (ProAir RespiClick) acetaminophen 500 mg tablet 500 mg PO Q6H PRN pain #60 tabs 03/10/22 03/20/23 vitamin with calcium 1 tab PO DAILY #90 tabs 10/22/22 03/20/23 no.72-iron 27 mg-folic acid 1 mg tablet valacyclovir 1 gram tablet 1,000 mg PO PRN PRN 11/25/22 03/20/23 (Valtrex) levothyroxine 150 mcg tablet 250 mcg PO DAILY 02/08/23 03/20/23 sucralfate 1 gram tablet (Carafate) 1 g PO Q6H 03/16/23 03/20/23 Previous Rx's Medication Instructions Recorded albuterol sulfate 90 mcg/actuation 2 inh inhalation Q6H PRN shortness 04/29/21 breath activated powder inhaler of breath or wheezing #1 ea (ProAir RespiClick) acetaminophen 500 mg tablet 500 mg PO Q6H PRN pain #60 tabs 03/10/22 vitamin with calcium 1 tab PO DAILY #90 tabs 10/22/22 no.72-iron 27 mg-folic acid 1 mg tablet Allergies Allergy/AdvReac Type Severity Reaction Status Date / Time No Known Allergies Allergy Verified 03/20/23 16:21 General Stated Complaint: GenMedical JEANETTE: 3 Review of Systems Narrative: see hpi Exam Const General: cooperative, healthy appearing, comfortable, no acute distress, well developed, well groomed and well hydrated Nutritional Appearance: average body habitus and well nourished Orientation: alert, awake and oriented x3 HENMT Head: normal to inspection, normocephalic and atraumatic Ears: hearing grossly normal bilaterally, external ears normal and TM's normal bilaterally General nose exam: external nose normal, nares normal and no nasal discharge Face and sinus: normal facial exam, sinuses nontender and face symmetric Mouth: oral mucosae normal, lip normal, tongue normal, oropharynx normal, moist mucous membranes and other (Normal phonation. The patient is handling secretions.) Throat: posterior oropharynx normal and uvula midline Eyes General: appearance normal, both eyes and all related structures Eyelids: eyelids normal Conjunctivae: conjunctivae normal Sclera: sclerae normal Cornea: corneas normal Pupils: PERRL EOM: EOM intact bilaterally and No nystagmus Neck Neck: normal visual inspection, full ROM, no lymphadenopathy, no meningeal signs, trachea midline and supple Lymphatic: no lymphadenopathy noted Chest Chest: normal inspection of the chest Resp Effort & Inspection: normal respiratory effort, able to speak in complete sentences, no audible wheezes, no nasal flaring, no respiratory distress, no retractions, no stridor, not tachypneic, no tracheal deviation, no use of accessory muscles, No prolonged expiratory phase and other (Normal inspiratory to expiratory ratio.) Auscultation: clear to auscultation bilaterally, no rales, no rhonchi, no wheezes and no rubs Tactile Fremitus: tactile fremitus absent Cardio Jugular venous pressure: no JVD Palpation: normal PMI Rate: regular rate Rhythm: regular rhythm Heart Sounds: S1 normal, S2 normal, no gallops, no murmurs and no rubs GI Other: The patient is gravid. Her abdomen is soft nontender nondistended there is no hepatosplenomegaly. There is no point tenderness or rebound no guarding. Normal active bowel sounds. Informal bedside ultrasound shows good movement and normal heart rate. General: No CVA tenderness Back/Spine/Pelvis Back: no CVA tenderness and No back tenderness Cervical Spine: normal cervical lordosis, cervical ROM normal, No cervical muscular tenderness, No pain with cervical ROM, No cervical spinal tenderness and No step off deformity Thoracic/Lumbar Spine: thoracic and lumbar spine normal to inspection, No thoracic spinal tenderness and No lumbar spinal tenderness Pelvis: no pain with anterior-posterior compression and no pain with lateral compression Skin General skin exam: no rashes or lesions noted, turgor normal, no petechiae, no purpura and other (Skin is normal for ethnicity.) Lesions: no lesions Rashes: no rashes Trauma: no lacerations or abrasions Neuro General: patient alert, patient awake, patient oriented x3, moves all extremities, no meningeal signs, no focal motor deficits and CN's II-XI intact bilaterally Cranial Nerves: CN's II-XI intact bilaterally, PERRL, accommodation normal, EOM intact bilaterally, no nystagmus, facial strength normal, tongue midline, hearing normal and no nystagmus Cognition: normal cognition Speech: speech normal Gait: normal gait Motor: muscle tone normal throughout and strength 5/5 throughout Sensory Exam: no sensory deficits noted Extrem General: normal to inspection, full ROM, capillary refill normal, no clubbing, cyanosis or edema and no calf tenderness Psych Appearance: grossly normal Affect: normal affect Attitude: cooperative Thought Process: normal Thought Content: normal Insight: insight good Judgment: judgment good Other: The patient appears to have capacity make medical decisions. Course 7:40p after shared decision-making, the patient does not want to consult OB. She states her abdominal pain has improved but she would like a narcotic for her headache. She has taking hydrocodone/acetaminophen in the past and understands there is a slight risk since she is but after shared decision making I have agreed. We will discharge her and I have advised her to return to the emergency department if she develops any worsening abdominal pain vaginal bleeding, or any concerns. She is going to call her [facility] in the morning and return here for any new or worrisome symptoms. I have advised her not to drink alcohol, drive, operate heavy machinery or make important decisions while taking hydrocodone. She is aware it can cause drowsiness and constipation. The patient voiced understanding agreement with the discharge plan. All her questions or concerns were addressed prior to discharge Vital Signs Vital signs: Vital Signs Temperature 36.7 C 03/20/23 16:19 Pulse 111 H 03/20/23 16:19 Respiratory Rate 18 03/20/23 16:19 Blood Pressure 143/75 H 03/20/23 16:19 Pulse Oximetry 98 03/20/23 16:19 Temperature 36.7 C 03/20/23 16:19 Temperature Source Temporal Artery Scan 03/20/23 16:19 Pulse 111 H 03/20/23 16:19 Respiratory Rate 18 03/20/23 16:19 Respiratory Effort Normal, Non-Labored 03/20/23 16:22 Blood Pressure 143/75 H 03/20/23 16:19 Blood Pressure Position Sitting 03/20/23 16:19 Pulse Oximetry 98 03/20/23 16:19 Oxygen Delivery Method Room Air 03/20/23 16:19 Oxygen Flow Rate 0 03/20/23 16:19 Medical Decision Making This is a 27-year-old female who is with her third child at 26 weeks gestation who has been treated with amoxicillin for otitis media who presents with a headache and intermittent abdominal pain which she describes as cramping. The pain comes and goes and is mostly located in the right upper abdomen. She has not had any vaginal bleeding or discharge. Her TMs appear normal. She does not have any evidence of meningitis. She is well-hydrated and nontoxic. She does have a history of prior gestational diabetes which made her high risk. Informal bedside ultrasound is reassuring. My plan is to observe her in the department check for flu COVID and RSV. I will also do a fingerstick to check her blood sugar. If this is normal I will consult OB to see if they want to observe her for premature labor. The patient has electric heat and there are no other sick family members so I doubt that she has carbon monoxide poisoning. She might have an abruption or placenta previa but I think these are unlikely given her history and examination. Differential Diagnosis Differential Diagnosis: Headache, abdominal cramping, second trimester Medical Records Medical records reviewed: Yes I reviewed the patient's medical records. Lab Data Lab results reviewed: Yes I reviewed the patient's lab results. Lab results narrative: Negative for flu COVID and RSV, normal fingerstick blood sugar. Quality:SDOH Health Related Social Needs: No Data to Display PFSH All Active Problems (Updated 03/20/23 @ 19:45 by Rina Arriola MD) Second trimester (Acute) Malaise and fatigue (Acute) Headache (Acute) Bilateral otitis media (Acute) Hx of Helicobacter infection (Acute) History of Graves' disease (Acute) History of marijuana use (Acute) History of gestational diabetes (Acute) (Acute) Carpal tunnel syndrome, right (Acute) S/P ECTR: 03/10/2022 Carpal tunnel syndrome, left (Acute) Post depression (Acute) H/O cold sores (Acute) De Quervain's tenosynovitis, right (Acute) S/P Release: 03/10/2022 De Quervain's tenosynovitis, left (Acute) BMI 50.0-59.9, adult (Acute) Elevated liver enzymes (Acute) Fatty liver (Acute) incidental finding, patient reports she was heavy drinker in past and is aware of this finding Graves' disease (Acute) Recurrent genital HSV (herpes simplex virus) infection (Acute) Hypothyroidism (Chronic) see Carlos Nuñez MD, diagnosed age 12, graves disease Medical History TSH elevation Gestational diabetes mellitus (GDM) affecting Right flank pain renal scan is nml, problem resolved Heavy alcohol use ages [age], Post depression Depression ADHD (attention deficit hyperactivity disorder) evaluation High BMI 49 Cholangitis due to bile duct calculus with obstruction Choledocholithiasis with obstruction History of radioactive iodine thyroid ablation age 14 Epigastric abdominal pain Acute cholecystitis Asthma Intractable abdominal pain Morbidly obese Surgical History History of carpal tunnel surgery of right wrist History of esophagogastroduodenoscopy (EGD) (~06/2020) H/O endoscopic retrograde cholangiopancreatography (~06/17/20) History of cholecystectomy (~02/15/20) Family History Father Yanira's disease Hypertension Diabetes Mother Hypertension Retinal disease Kidney stones Brother Autism Retinal disease Oppositional defiant behavior Brother Retinal disease Brother Autism half brother Niece Autism high functioning Nephew Autism Social History Smoking/Tobacco Use Status: Never Smoking risk assessment performed?: Yes Alcohol Intake: former Details: heavy drinking age [age]. Denies use now. Drug use: Current Sobriety Substance use type: former substance user Details: Not since finding out about Housing: apartment Current gender identity: female Do you feel safe at home: Yes Do you feel safe in your relationship?: Yes Female Reproductive History Menstrual control method: none History History 3 Para 2 Hx # Term Pregnancies 2 Multiple births 0 Hx # Pregnancies 0 Ectopic pregnancies 0 AB induced 0 Hx Number of Living Children 2 AB spontaneous 0 Past Pregnancies Del. Date GA/Weeks # Preg Succ Route Wgt Sex Labor Lgth Anesth esia Location [facility] 08/08/17 40 No vaginal 3827.186 g Female [facility], vanishing twin 08/07/21 39 No Yes 3456 g Female [facility] Delivery Date: 08/08/17 Last Updated by: Sarah Doherty Spont labor, epidural, Jailyn Delivery Date: 08/07/21 Last Updated by: Sarah Doherty GDM, GHTN, IOL, epidural worked poorly. Luanne Discharge Plan Disposition Patient Disposition: Home Discharge Details Clinical Impression: Headache, Malaise and fatigue, Second trimester Primary Care Provider: DAYAN MOJICA ED Provider: Rina Arriola Home Meds and New Rx's Prescriptions: No Action levothyroxine 150 mcg tablet 250 mcg PO DAILY Patient Comments: pt reports she is taking 250 mcg ProAir RespiClick 90 mcg/actuation aerosol powdr breath activated 2 inh inhalation Q6H PRN (Reason: shortness of breath or wheezing) Qty: 1 0RF PNV,calcium 49-dnsl-rqgmi acid 27 mg iron- 1 mg tablet 1 tab PO DAILY Qty: 90 4RF Rx Instructions: give with food (meal/snack) acetaminophen 500 mg tablet 500 mg PO Q6H PRN (Reason: pain) Qty: 60 2RF sucralfate [Carafate] 1 gram tablet 1 g PO Q6H valacyclovir [Valtrex] 1 gram tablet 1,000 mg PO PRN PRN Discharge Instructions Instructions: General Headache (ED), at 23 to 26 Weeks (ED) Additional Instructions: 1. Take Tylenol as needed for mild to moderate pain and hydrocodone/acetaminophen for severe pain. This can be habit-forming and you should not drink alcohol, drive, operate heavy machinery or make important decisions while take this medication. 2. Return here if you develop any new or worrisome symptoms such as worsening abdominal pain headache, stiff neck or any new or worrisome symptoms. 3. Call your [facility] in the morning for follow-up appointment. Discharge Data Discharge Date/Time-TO BE ENTERED AT DEPARTURE: 03/20/23 19:51 Discharge Physician: Rina Arriola
[2023-03-20] MEDS: Acetaminophen 500 MG TAB 1000 MG PO (17:16)
[2023-03-20 18:17] LABS: COVID-19 PCR Negative (Negative); Influenza A PCR Negative (Negative); Influenza B PCR Negative (Negative); RSV PCR Negative (Negative)
[2023-03-20 18:20] LABS: Bilirubin Small (Negative); Blood Negative (Negative); Clarity Clear (Clear); Glucose Negative (Negative); Ketones Trace mg/dL (Negative); Leukocyte Esterase Negative (Negative); Nitrite Negative (Negative); Specific Gravity >= 1.030 (1.005-1.025); Urobilinogen 0.2 mg/dL (Up to 0.2)
[2023-03-20 18:22] LABS: Source Nasopharynx
[2023-03-20 18:31] LABS: Bacteria Few HPF (Negative); C & S Indicated? No/Sq. Contamination; Casts Negative LPF (Negative); Crystals Rare Calcium Oxalate HPF (Negative); Epithelial Cells Many HPF (Negative); Mucus Heavy (Negative); RBC Negative HPF (0-2); WBC 0-2 HPF (0-5)
[2023-03-20 19:51] VITALS: PULSE 100; RESP 18; O2SAT 100
== END 2023-03-20 19:51 | disposition home or self-care (01) ==
PROVIDERS: Emergency Provider Emergency Medicine Emergency Medical Services; PCP Nurse Practitioner Family
DX: R51.9 Headache, unspecified (principal); R11.10 Vomiting, unspecified; R53.81 Other malaise; R53.83 Other fatigue; Z34.92 Encounter for supervision of normal pregnancy, unspecified, second trimester; R25.2 Cramp and spasm; Z86.32 Personal history of gestational diabetes
CPT/HCPCS: 36416; 82962; 87637; 99282; 81003; 81015; 99283

== ENCOUNTER 2023-03-30 02:32 | Outpatient (CLI) | payer MEDICAID, SELFPAY ==
--- OUTSIDE RECORDS SUMMARY | 2023-03-30 02:34 | XMS_ITS | Continuity of Care Document ---
Author Name [facility] Address [address] [place] [id number] Organization [facility] Address [address] [place] [id number] Care Team Providers Care Programming Development Project Manager Name Role Phone Carlos Nuñez Primary Care Physician Brada Carlos Luo Attending Physician Unavailable Allergies, Adverse Reactions, Alerts No allergy information available. Medications No medication information available. Problem List No problem information available. Procedures No known history of procedures. Relevant Diagnostic Tests and/or Laboratory Data Laboratory Results Test Date/Time Result Interp. Ref. Range Result Co mment White Blood Count January 19, 2017 11:40am 8.28 1000/mm3 4.8-10.8 Red Blood Count January 19, 2017 11:40am 4.42 M/mm3 4.20-5.40 Hemoglobin January 19, 2017 11:40am 13.3 g/dL 12.0-16.0 Hematocrit January 19, 2017 11:40am 40.2 % 37-47 Mean Corpuscular Volume January 19, 2017 11:40am 91.0 fL 81.0-99.0 Mean Corpuscular Hemoglobin January 19, 2017 11:40am 30.1 pg 27-31 Mean Corpuscular Hemoglobin Concent January 19, 2017 11:40am 33.1 g/dL 33-37 Red Cell Distribution Width January 19, 2017 11:40am 12.3 % 11.5-14.5 Platelet Count January 19, 2017 11:40am 267 1000/mm3 140-440 Mean Platelet Volume January 19, 2017 11:40am 10.0 fL 7.4-10.4 Glucose 1 Hour Postprandial January 19, 2017 11:40am 89 mg/dL 50-500 Free Thyroxine January 19, 2017 11:40am 1.57 ng/dL 0.78-2.19 Thyroid Stimulating Hormone (TSH) January 19, 2017 11:40am 1.84 mlU/L 0.47-4.68 Advance Directives Advance Directive Response Recorded Date/ Time Do we have a copy on file here at [facility]? No January 19, 2017 10:06am Does patient have an Advanced Directive? No December 27, 2009 7:16am Pt has a Living Will? No November 7:16am Pt has a Power of Natural Gas Inspector? No Octo 2009 7:16am Chief Complaint and Reason for Visit Encounter Admit Date Chief Complaint Reason for V isit Departed Clinical January 19, 2017 10:08am Lab Hospital Discharge Instructions No known hospital discharge instructions. Encounters Encounter Facility Location Admit/Visit Date Discharge/Departure Date Attending Provider Departed Clinical [facility] January 19, 2017 10:08am January 19, 2017 10:09am Carlos Nuñez Departed Clinical [facility] January 19, 2017 10:01am January 19, 2017 10:02am Sridevi Perez Functional Status No known functional status. Immunizations No known immunizations. Payers Payer Name Policy Type Covered Constitution Party Covered Constitution Party Id Relationship Subscriber Subscriber Id SELF PAY Personal [place] MEDICAID (DO NOT USE) Medicaid LYNNE PREGENT [id number] Self/Same as Patient LYNNE PREGENT [id number] Plan of Care No Known Plan of Care Information Social History No known social history. Vital Signs No known vital signs results.
--- OUTSIDE RECORDS SUMMARY | 2023-03-30 02:34 | XMS_ITS | Continuity of Care Document ---
Author Name [facility] Address [address] [place] [address] [facility] Address [address] [place] [address] Care Team Providers Care Rn Oncology Name Role Phone Marva Hitchcock Primary Care Physician Allergies, Adverse Reactions, Alerts No known allergies. Medications Active Medications Medication Dose Units Route Sig Qty Days Start Date St atus Valacyclovir July 31 8 Active Levothyroxine 175 MCG DAILY July 31 Active Discontinued Medications Medication Dose Units Route Sig Qty Days Start Date Di scontinued Date Status July 31, 2017 November 17, 2017 Discontinue d Metronidazole [Metrogel Vaginal] 1 appful VAGINALLY DAILY 70 5 November 17, 2017 November 22, 2017 Discontinue d Problem List Active Problems Medical Problem Onset Date Status Myalgia Active Inactive/Resolved Problems Medical Problem Onset Date Status Leukorrhea Inactive Inactive Genital lesion, female Inactive Procedures Procedure Date Status Gram Stain November 17, 2017 completed Urine Culture November 17, 2017 completed Relevant Diagnostic Tests and/or Laboratory Data Laboratory Results Test Date/Time Result Interp. Ref. Range Result Co mment White Blood Count May 05, 2017 9:25am 10.81 1000/mm3 High 4.8-10.8 Red Blood Count May 05, 2017 9:25am 4.05 M/mm3 Low 4.20-5.40 Hemoglobin May 05, 2017 9:25am 11.9 g/dL Low 12.0-16.0 Hematocrit May 05, 2017 9:25am 36.0 % Low 37-47 Mean Corpuscular Volume May 05, 2017 9:25am 88.9 fL 81.0-99.0 Mean Corpuscular Hemoglobin May 05, 2017 9:25am 29.4 pg 27-31 Mean Corpuscular Hemoglobin Concent May 05, 2017 9:25am 33.1 g/dL 33-37 Red Cell Distribution Width May 05, 2017 9:25am 13.6 % 11.5-14.5 Platelet Count May 05, 2017 9:25am 281 1000/mm3 140-440 Mean Platelet Volume May 05, 2017 9:25am 10.4 fL 7.4-10.4 Urine RBC November 17, 2017 11:25am None seen /hpf Urine WBC November 17, 2017 11:25am 10-20 /hpf High Urine Squamous Epithelial Cells November 17, 2017 11:25am 3+ /hpf Urine Bacteria November 17, 2017 11:25am 1+ /hpf High Urine Culture Done November 17, 2017 11:25am Yes URINE SPECIMEN CULTURED Glucose 1 Hour Postprandial May 05, 2017 9:25am 118 mg/dL 50-500 Free Thyroxine June 09, 2017 10:11am 1.04 ng/dL 0.78-2.19 Thyroid Stimulating Hormone (TSH) June 09, 2017 10:11am 0.676 mlU/L 0.47-4.68 Hepatitis B Surface Antigen January 19, 2017 11:40am Negative Test Performed by: [place] [address] Gas Line Repairer: Sina Trejo MD , Ph D Rubella IgG Antibody January 19, 2017 11:40am Positive New methodology in use 06/08/16. Positive for IgG antibodies to Rubella virus. Test Performed by: [place] [address] Gas Line Repairer: Sina Trejo MD , Ph D Varicella-Zoster IgG Antibody January 19, 2017 11:40am Positive Presence of detectable Varicella Zoster virus IgG antibodies. Test Performed by: [place] [address] Gas Line Repairer: Sina Trejo MD , Ph D Microbiology Results Procedure Source Result Collection Date/Time Resu lt Date/Time Urine Culture Ur,Clean Catch No results entered 2017 12:14pm Gram Stain Vaginal No results entered November 17, 2017 11:25am Advance Directives Advance Directive Response Recorded Date/ Time Do we [place] a copy [place] [facility] No January 19, 2017 10:06am Does patient have an Advanced Directive? No December 27, 2009 7:16am Pt has a Living Will? No November 7:16am Pt has a Power of Concrete Fence Builder? No Octo 2009 7:16am Hospital Discharge Instructions Additional Discharge Instructions Ibupro fen or tylenol as needed for body aches and headache. Drink plenty of fluids and get plenty of rest. If any worsening or new symptoms develop follow up with your PCP or return to clinic. No Instructions/Education [facility] Discharge Medications Medication Dose Units Route Sig Qty Days Order Date Status Ins tructions Valacyclovir Jul Active Levothyroxine 175 MCG DAILY 2017 Active July 31, 2017 Discontinue d Metronidazole 1 appful VAGINALLY DAILY 70 5 November 17, 2017 Discontinue d Encounters Encounter Facility Location Admit/Visit Date Discharge/Departure Date Attending Provider [facility] Emergency [facility] January 14, 2018 5:14pm January 14, 2018 6:45pm Departed Emergency [facility] November 17, 2017 10:29am November 17, 2017 11:26am Departed Emergency [facility] July 31, 2017 10:12am July 31[facility], 2017 10:06am June 09, 2017 10:07am Carlos Nuñez [facility] May 12, 2017 1:35pm May 12, 2017 1:36pm Carlos Nuñez [facility] May 05, 2017 8:14am May 05, 2017 8:15am [facility] 10:[facility] April 15, 2017 10:38am Carlos Nuñez [facility] March 18, 2017 1:55pm March 18, 2017 1:56pm Carlos Nuñez [facility] February 18, 2017 9:58am February 18, 2017 9:59am Carlos Nuñez [facility] January 19, 2017 10:08am January 19, 2017 10:09am Carlos Nuñez [facility] January 19, 2017 10:01am January 19, 2017 10:02am Sridevi Perez Functional Status No known functional status. Immunizations No known immunizations. Payers Payer Name Policy Type Covered Libertarian Covered Libertarian Id Relationship Subscriber Subscriber Id MEDICAID [facility] Medicaid SELF PAY Personal [place] MEDICA[place] (DO NOT USE) Medicaid LYNNE PREGENT [id number] Self/Same as Patient LYNNE PREGENT [id number] Plan of Care No Known Plan of Care Information Social History Query Response Start Date Stop Date Smoking Status Never smoker Vital Signs Vital Reading Result Reference Range Collection Date/Time Height 5 ft 2.25 in January 14 5:51pm Weight 104.326 kg January 14 5:51pm Temperature 98.8 F 97.6 F-99.6 F January 14 018 5:51pm Pulse 84 BPM 60-100 January 14 6:44pm Respiration 16 RPM 12-24 January 14 5:51pm Pulse Oximetry 97 % 95-100 January 14, 2018 5:51pm Blood Pressure Systolic 106 100-140 [facility]2017 5:51pm Blood Pressure Diastolic 86 50-85 [facility]2017 5:51pm Body Mass Index 41.7 January 14, 2018 5:51pm
--- OUTSIDE RECORDS SUMMARY | 2023-03-30 02:34 | XMS_ITS | Continuity of Care Document ---
Author Name [facility] Address [address] [place] [address] Organization [facility] Address [address] [place] [address] Care Team Providers Care Agent Broker Name Role Phone Carlos Nuñez Primary Care [...] 2017 11:40am 89 mg/dL 50-500 Free Thyroxine February 18, 2017 10:08am 1.65 ng/dL 0.78-2.19 Thyroid Stimulating Hormone (TSH) February 18, 2017 10:08am 2.54 mlU/L 0.47-4.68 Hepatitis B Surface Antigen January 19, 2017 11:40am Negative Test Performed by: [place] [address] Optical Instrument Assembler: Sina Trejo MD , Ph D Rubella IgG Antibody January 19, 2017 11:40am Positive New methodology in use 06/08/16. Positive for IgG antibodies to Rubella virus. Test Performed by: [place] [address] Optical Instrument Assembler: Sina Trejo MD , Ph D Varicella-Zoster IgG Antibody January 19, 2017 11:40am Positive Presence of detectable Varicella Zoster virus IgG antibodies. Test Performed by: [place] [address] Optical Instrument Assembler: Sina Trejo MD , Ph D Advance Directives Advance Directive Response Recorded Date/ Time Do we have a copy on file here at [facility]? No January 19, 2017 10:06am Does patient have an Advanced Directive? No December 27, 2009 7:16am Pt has a Living Will? No November 7:16am Pt has a Power of Aba Tutor? No Octo 2009 7:16am Chief Complaint and Reason for Visit Encounter Admit Date Chief Complaint Reason for V isit Departed Clinical February 18, 2017 9:58am Lab Hospital Discharge Instructions No known hospital discharge instructions. Encounters Encounter Facility Location Admit/Visit Date Discharge/Departure Date Attending Provider Departed [facility] February 18, 2017 9:58am February 18, 2017 9:59am Carlos Nuñez Departed Clinical [facility] January 19, 2017 10:08am January 19, 2017 10:09am Carlos Nuñez Departed [facility] January 19, 2017 10:01am January 19, 2017 10:02am Sridevi Perez Functional Status No known functional status. Immunizations No known immunizations. Payers Payer Name Policy Type Covered Republican Covered Republican Id Relationship Subscriber Subscriber Id MEDICAID [facility] Medicaid SELF PAY Personal [place] MEDICA[place] (DO NOT USE) Medicaid LYNNE PREGENT [id number] Self/Same as Patient LYNNE PREGENT [id number] Plan of Care No Known Plan of Care Information Social History No known social history. Vital Signs No known vital signs results.
--- OUTSIDE RECORDS SUMMARY | 2023-03-30 02:34 | XMS_ITS | Continuity of Care Document ---
Author Name [facility] Address [address] [place] [address] Organization [facility] Address [address] [place] [address] Care Team Providers Care Cold Mill Inspector Name Role Phone Carlos Nuñez Primary Care Physician Sridevi Pickens Attending Physician Prabhu ramirez Allergies, Adverse Reactions, Alerts No allergy information [...] 2017 11:40am Negative Test Performed by: [place] [address] Software Designer: Sina Trejo MD , Ph D Rubella IgG Antibody January 19, 2017 11:40am Positive New methodology in use 06/08/16. Positive for IgG antibodies to Rubella virus. Test Performed by: [place] [address] Software Designer: Sina Trejo MD , Ph D Varicella-Zoster IgG Antibody January 19, 2017 11:40am Positive Presence of detectable Varicella Zoster virus IgG antibodies. Test Performed by: [place] [address] Software Designer: Sina Trejo MD , Ph D Advance Directives Advance Directive Response Recorded Date/ Time Do we have a copy on file here at [facility]? No January 19, 2017 10:06am Does patient have an Advanced Directive? No December 27, 2009 7:16am Pt has a Living Will? No November 7:16am Pt has a Power of Fuel Cell Engineer? No Octo 2009 7:16am Chief Complaint and Reason for Visit Encounter Admit Date Chief Complaint Reason for V isit Departed Clinical January 19, 2017 10:01am Lab Hospital Discharge Instructions No known hospital discharge instructions. Encounters Encounter Facility Location Admit/Visit Date Discharge/Departure Date Attending Provider Departed Clinical [facility] February 18, 2017 9:58am February 18, 2017 9:59am Carlos Nuñez Departed [facility] January 19, 2017 10:08am January 19, 2017 10:09am Carlos Nuñez Departed [facility] January 19, 2017 10:01am January 19, 2017 10:02am Sridevi Perez Functional Status No known functional status. Immunizations No known immunizations. Payers Payer Name Policy Type Covered Republican Covered Republican Id Relationship Subscriber Subscriber Id [place] SELF PAY Personal [place] (DO NOT USE) Medicaid LYNNE PREGENT [id number] Self/Same as Patient LYNNE PREGENT [id number] Plan of Care No Known Plan of Care Information Social History No known social history. Vital Signs No known vital signs results.
--- OUTSIDE RECORDS SUMMARY | 2023-03-30 02:34 | XMS_ITS | Continuity of Care Document ---
Author Name [facility] Address [address] [place] [address] Organization [facility] Address [address] [place] [address] Care Team Providers Care Lead Embedded Software Engineer Name Role Phone Marva Hitchcock Primary Care Physician Unava ilable Allergies, Adverse Reactions, Alerts No known allergies. Medications Active Medications Medication Route Start Date Status Valacyclovir July 31, 2017 Active Levothyroxine July 31, 2017 Active Discontinued Medications Medication Route Start Date Discontinued Date Status July 31, 2017 November 17, 2017 Disc ontinued Problem List Active Problems Medical Problem Onset Date Status Leukorrhea Active Inactive/Resolved Problems Medical Problem Onset Date Status Inactive Genital lesion, female Inactive Procedures No known history of procedures. Relevant [...] May 05, 2017 9:25am 10.4 fL 7.4-10.4 Glucose 1 Hour Postprandial May 05, 2017 9:25am 118 mg/dL 50-500 Free Thyroxine June 09, 2017 10:11am 1.04 ng/dL 0.78-2.19 Thyroid Stimulating Hormone (TSH) June 09, 2017 10:11am 0.676 mlU/L 0.47-4.68 Hepatitis B Surface Antigen January 19, 2017 11:40am Negative Test Performed by: [place] [address] Nuclear Logging Engineer: Sina Trejo MD , Ph D Rubella IgG Antibody January 19, 2017 11:40am Positive New methodology in use 06/08/16. Positive for IgG antibodies to Rubella virus. Test Performed by: [place] [address] Nuclear Logging Engineer: Sina Trejo MD , Ph D Varicella-Zoster IgG Antibody January 19, 2017 11:40am Positive Presence of detectable Varicella Zoster virus IgG antibodies. Test Performed by: [place] [address] Nuclear Logging Engineer: Sina Trejo MD , Ph D Advance Directives Advance Directive Response Recorded Date/ Time Do we have a copy on file here at [facility]? No January 19, 2017 10:06am Does patient have an Advanced Directive? No December 27, 2009 7:16am Pt has a Living Will? No November 7:16am Pt has a Power of Substation Inspector? No Octo 2009 7:16am Hospital Discharge Instructions Additional Discharge Instructions Danii es were sent to the lab, you will be contacted when culture results are available with an update plan of care No Instructions/Education Pr ovided Hospital Discharge Medications Medication Dose Units Route Sig Qty Days Order Date Status Ins tructions Valacyclovir July 31, 2017 Active Levothyroxine July 31, 2017 Activ e July 31, 2017 Discontinu ed Encounters Encounter Facility Location Admit/Visit Date Discharge/Departure Date Attending Provider Departed Emergency [facility] [place] November 17, 2017 10:29am November 17, 2017 11:26am Departed Emergency [facility] July 31, 2017 10:12am July 31, 2017 12:03pm Departed [facility] June 09, 2017 10:06am June 09, 2017 10:07am Joaquin Carlos [facility] May 12, 2017 1:35pm May 12, 2017 1:36pm [facility] May 05, 2017 8:15am [facility] April 15, 2017 10:37am April 15, 2017 10:38am [facility], [facility] 1:55pm March 18, 2017 1:56pm Carlos Nuñez [facility] February 18, 2017 9:58am February 18, 2017 9:59am Carlos Nuñez [facility] January 19, 2017 10:08am January 19, 2017 10:09am Carlos Nuñez [facility] January 19, 2017 10:01am January 19, 2017 10:02am Sridevi Perez Functional Status No known functional status. Immunizations No known immunizations. Payers Payer Name Policy Type Covered Green Party Covered Green Party Id Relationship Subscriber Subscriber Id [place]DO [place] USE[place] Medicaid LYNNE PREGENT [id number] Self/Same as Patient LYNNE PREGENT [id number] Plan of Care No Known Plan of Care Information Social History Query Response Start Date Stop Date Smoking Status Never smoker Vital Signs Vital Reading Result Reference Range Collection Date/Time Height 5 ft 3 in July 31, 2017 10 :36am Weight 104.326 kg November 17 018 10:41am Temperature 98.6 F 97.6 F-99.6 F November 17, 2017 10:41am Pulse 88 BPM 60-100 November 17 018 10:41am Respiration 16 RPM -November 17 018 10:41am Pulse Oximetry 96 % 95-100 July 31, 2017 10:36am Blood Pressure Systolic 110 100-140 Sept ember 2017 10:41am Blood Pressure Diastolic 70 50-85 Sep tember 2017 10:41am Body Mass Index 44.2 July 31, 2017 10:36am
--- OUTSIDE RECORDS SUMMARY | 2023-03-30 02:34 | XMS_ITS | Continuity of Care Document ---
Author Name [facility] Address [address] [place] [address] Organization [facility] Address [address] [place] [address] Care Team Providers Care Picking Supervisor Name Role Phone Carlos Nuñez Primary Care [...] 2017 11:40am Negative Test Performed by: [place] [address] Boilermaker Pipe Fitter: Sina Trejo MD , Ph D Rubella IgG Antibody January 19, 2017 11:40am Positive New methodology in use 06/08/16. Positive for IgG antibodies to Rubella virus. Test Performed by: [place] [address] Boilermaker Pipe Fitter: Sina Trejo MD , Ph D Varicella-Zoster IgG Antibody January 19, 2017 11:40am Positive Presence of detectable Varicella Zoster virus IgG antibodies. Test Performed by: [place] [address] Boilermaker Pipe Fitter: Sina Trejo MD , Ph D Advance Directives Advance Directive Response Recorded Date/ Time Do we have a copy on file here at [facility]? No January 19, 2017 10:06am Does patient have an Advanced Directive? No December 27, 2009 7:16am Pt has a Living Will? No November 7:16am Pt has a Power of Drum Sealer? No Octo 2009 7:16am Chief Complaint and Reason for Visit Encounter Admit Date Chief Complaint Reason for V isit Departed Clinical January 19, 2017 10:08am Lab Hospital Discharge Instructions No known hospital discharge instructions. Encounters Encounter Facility Location Admit/Visit Date Discharge/Departure Date Attending Provider Departed Clinical [facility] February 18, 2017 9:58am February 18, 2017 9:59am Carlos Nuñez Departed Clinical [facility] January 19, 2017 10:08am January 19, 2017 10:09am Carlos Nuñez Departed [facility] January 19, 2017 10:01am January 19, 2017 10:02am Sridevi Perez Functional Status No known functional status. Immunizations No known immunizations. Payers Payer Name Policy Type Covered Green Party Covered Green Party Id Relationship Subscriber Subscriber Id MEDICAID [facility] Medicaid SELF PAY Personal [place] (DO NOT USE) Medicaid LYNNE PREGENT [id number] Self/Same as Patient LYNNE PREGENT [id number] Plan of Care No Known Plan of Care Information Social History No known social history. Vital Signs No known vital signs results.
--- OUTSIDE RECORDS SUMMARY | 2023-03-30 02:34 | XMS_ITS | Continuity of Care Document ---
Author Name [facility] Address [address] [place] [address] Organization [facility] Address [address] [place] [address] Care Team Providers Care Chief Scientific Officer Name Role Phone Carlos Nuñez Primary Care Physician Unavaila ble Allergies, Adverse Reactions, Alerts No known allergies. Medications Active Medications Medication Route Start Date Status Valacyclovir July 31, 2017 Active Levothyroxine July 31, 2017 Active July 31, 2017 Active Problem List Active Problems Medical Problem Onset Date Status Active Genital lesion, female Active Procedures No known history of procedures. Relevant [...] 2017 11:40am Negative Test Performed by: [place] [address] General Assembler Installer: Sina Trejo MD , Ph D Rubella IgG Antibody January 19, 2017 11:40am Positive New methodology in use 06/08/16. Positive for IgG antibodies to Rubella virus. Test Performed by: [place] [address] General Assembler Installer: Sina Trejo MD , Ph D Varicella-Zoster IgG Antibody January 19, 2017 11:40am Positive Presence of detectable Varicella Zoster virus IgG antibodies. Test Performed by: [place] [address] General Assembler Installer: Sina Trejo MD , Ph D Advance Directives Advance Directive Response Recorded Date/ Time Do we have a copy on file here at [facility]? No January 19, 2017 10:06am Does patient have an Advanced Directive? No December 27, 2009 7:16am Pt has a Living Will? No November 7:16am Pt has a Power of Final Canoe Inspector? No Novo 2009 7:16am Hospital Discharge Instructions Additional Discharge Instructions will jeffries's phone number: [phone] obgyn is [facility] hot top liner helper follow up with your obgyn as scheduled on august 05 or sooner, if needed continue taking your valtrex twice daily until we get the results back call the clinic here on wednesday if you don't hear from us before that, as discussed No Instructions/Education Pr ovided Hospital Discharge Medications Medication Dose Units Route Sig Qty Days Order Date Status Ins tructions Valacyclovir July 31, 2017 Active Levothyroxine July 31, 2017 Activ e July 31, 2017 Active Encounters Encounter Facility Location Admit/Visit Date Discharge/Departure Date Attending Provider Departed Emergency [facility] July 31, 2017 10:12am July 31, 2017 12:03pm Departed [facility] June 09, 2017 10:06am June 09, 2017 10:07am Carlos Nuñez [facility] May 12, 2017 1:35pm May 12, 2017 1:36pm [facility] 8:14am May 05, 2017 8:15am [facility] April 15, 2017 10:37am April 15, 2017 10:38am [facility], 2017 1:55pm March 18, 2017 1:56pm Carlos Nuñez [facility] February 18, 2017 9:58am February 18, 2017 9:59am Carlos Nuñez [facility] January 19, 2017 10:08am January 19, 2017 10:09am Carlos Nuñez [facility] January 19, 2017 10:01am January 19, 2017 10:02am Sridevi Perez Functional Status No known functional status. Immunizations No known immunizations. Payers Payer Name Policy Type Covered Constitution Party Covered Constitution Party Id Relationship Subscriber Subscriber Id [place]ELF PA[place] Personal [place]DO NOT USE) Medicaid LYNNE PREGENT [id number] Self/Same as Patient LYNNE PREGENT [id number] Plan of Care No Known Plan of Care Information Social History Query Response Start Date Stop Date Smoking Status Never smoker Vital Signs Vital Reading Result Reference Range Collection Date/Time Height 5 ft 3 in July 31, 2017 10 :36am Weight 113.398 kg July 31, 2017 10 :36am Temperature 98.5 F 97.6 F-99.6 F July 31, 2017 1 0:36am Pulse 105 BPM 60-100 July 31, 2017 10 :36am Respiration 15 RPM 12-July 31, 2017 10 :36am Pulse Oximetry 96 % 95-100 July 31, 2017 10:36am Blood Pressure Systolic 128 100-140 July 31, 2017 10:36am Blood Pressure Diastolic 70 50-85 Jul 10:36am Body Mass Index 44.2 July 31, 2017 10:36am
--- OUTSIDE RECORDS SUMMARY | 2023-03-30 02:34 | XMS_ITS | Continuity of Care Document ---
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 Ref. Range Result Co mment Urine RBC January 14, 2018 7:28pm 0-2 /hpf Urine WBC January 14, 2018 7:28pm 10-20 /hpf High Urine Squamous Epithelial Cells January 14, 2018 7:28pm 2+ /hpf Urine Bacteria January 14, 2018 7:28pm 1+ /hpf High Urine Mucus January 14, 2018 7:28pm Present Urine Culture Done January 14, 2018 7:28pm Yes URINE SPECIMEN CULTURED Microbiology Results Procedure Source Result Collection Date/Time Result Date/Time Urine Culture Ur,Clean Catch No results entered November 17, 2017 12:14pm Gram Stain Vaginal No results entered November 17, 2017 11:25am Urine Culture Ur,Clean Catch No results entered January 14, 2018 10:00pm Group A Streptococcus Screen (HUI) Throat No results entered January 17, 2018 9:45am Hospital Discharge Instructions No known hospital discharge instructions. Hospital Discharge Medications Medication Dose Units Route Sig Qty Days Order Date Status Ins tructions Valacyclovir Jul Active Levothyroxine 175 MCG DAILY 2017 Active July 31, 2017 Discontinue d Metronidazole 1 appful VAGINALLY DAILY 70 5 November 17, 2017 Discontinue d Encounters Encounter Facility Location Admit/Visit Date Discharge/Departure Date Attending Provider Departed [facility] September 07, 2018 12:04pm September 07, 2018 12:59pm Departed Referred [facility] April 12, 2018 2:59pm April 12, 2018 3:00pm Dada Rodriugez Departed Physician/P sherivider Office Visit [facility] PHYSICIAN OFFICE ASSISTANT April 12, 2018 12:00am April 12, 2018 Gloria Miguel Departed Emergency [facility] March 22, 2018 1:50pm March 22, 2018 2:13pm Departed Emergency [facility] January 17, 2018 9:29am January 17, 2018 10:03am Departed [facility] January 14, 2018 5:14pm January 14, 2018 6:45pm Departed Emergency [facility] November 17, 2017 10:29am November 17, 2017 11:26am Functional Status Query Response Date Recorded Comment Living Situation With Family September 07, 2018 12:43pm Immunizations No known immunizations. Payers Payer Name Policy Type Covered Constitution Party Covered Constitution Party Id Relationship Subscriber Subscriber Id [place] Medicaid LYNNE PREGENT [id number] Self/Same as Patient LYNNE PREGENT [id number] SELF PAY Personal LYNNE PREGENT Self/Same as Patient LYNNE PREGENT [place] MEDICA[place] (DO NOT USE) Medicaid LYNNE PREGENT [id number] Self/Same as Patient LYNNE PREGENT [id number] Plan of Care No Known Plan of Care Information Social History No known social history. Vital Signs Vital Reading Result Reference Range Collection Date/Time Height 5 ft 3 in September 07, 2018 1 2:43pm Weight 104.326 kg September 07, 2018 1 2:43pm Temperature 98.3 F 97.6 F-99.6 F September 07, 2018 12:43pm Pulse 74 BPM 60-100 September 07, 2018 1 2:43pm Respiration 15 RPM 12-24 September 07, 2018 1 2:43pm Pulse Oximetry 98 % 95-100 September 07, 2018 12:43pm Blood Pressure Systolic 124 100-140 September 07, 2018 12:43pm Blood Pressure Diastolic 84 50-85 Aug 12:43pm Body Mass Index n/a
--- OUTSIDE RECORDS SUMMARY | 2023-03-30 02:34 | XMS_ITS | Continuity of Care Document ---
Author Name [facility] Address [address] [place] [address] Organization [facility] Address [address] [place] [address] Care Team Providers Care Deli Clerk Name Role Phone Carlos Nuñez Primary Care [...] 2017 11:40am Negative Test Performed by: [place] [address] Lab Analyst: Sina Trejo MD , Ph D Rubella IgG Antibody January 19, 2017 11:40am Positive New methodology in use 06/08/16. Positive for IgG antibodies to Rubella virus. Test Performed by: [place] [address] Lab Analyst: Sina Trejo MD , Ph D Varicella-Zoster IgG Antibody January 19, 2017 11:40am Positive Presence of detectable Varicella Zoster virus IgG antibodies. Test Performed by: [place] [address] Lab Analyst: Sina Trejo MD , Ph D Advance Directives Advance Directive Response Recorded Date/ Time Do we have a copy on file here at [facility]? No January 19, 2017 10:06am Does patient have an Advanced Directive? No December 27, 2009 7:16am Pt has a Living Will? No November 7:16am Pt has a Power of Network Support Engineer? No Octo 2009 7:16am Chief Complaint and Reason for Visit Encounter Admit Date Chief Complaint Reason for V isit Departed Clinical February 18, 2017 9:58am Lab Hospital Discharge Instructions No known hospital discharge instructions. Encounters Encounter Facility Location Admit/Visit Date Discharge/Departure Date Attending Provider Departed [facility] February 18, 2017 9:58am February 18, 2017 9:59am Carlos Nuñez Departed Clinical [facility] January 19, 2017 10:08am January 19, 2017 10:09am Carlos Nuñez Departed [facility] January 19, 2017 10:01am January 19, 2017 10:02am Sridevi Perez Functional Status No known functional status. Immunizations No known immunizations. Payers Payer Name Policy Type Covered Democrat Covered Democrat Id Relationship Subscriber Subscriber Id MEDICAID [facility] Medicaid SELF PAY Personal [place] (DO NOT USE) Medicaid LYNNE PREGENT [id number] Self/Same as Patient LYNNE PREGENT [id number] Plan of Care No Known Plan of Care Information Social History No known social history. Vital Signs No known vital signs results.
--- OUTSIDE RECORDS SUMMARY | 2023-03-30 02:34 | XMS_ITS | Continuity of Care Document ---
Author Name [facility] Address [address] [place] [address] Organization [facility] Address [address] [place] [address] Care Team Providers Care Bullion Weigher Name Role Phone Carlos Nuñez Primary Care [...] 2017 11:40am 89 mg/dL 50-500 Free Thyroxine April 15, 2017 10:45am 1.05 ng/dL 0.78-2.19 Thyroid Stimulating Hormone (TSH) April 15, 2017 10:45am 0.419 mlU/L Low 0.47-4.68 Hepatitis B Surface Antigen January 19, 2017 11:40am Negative Test Performed by: [place] [address] Museum Technician: Sina Trejo MD , Ph D Rubella IgG Antibody January 19, 2017 11:40am Positive New methodology in use 06/08/16. Positive for IgG antibodies to Rubella virus. Test Performed by: [place] [address] Museum Technician: Sina Trejo MD , Ph D Varicella-Zoster IgG Antibody January 19, 2017 11:40am Positive Presence of detectable Varicella Zoster virus IgG antibodies. Test Performed by: [place] [address] Museum Technician: Sina Trejo MD , Ph D Advance Directives Advance Directive Response Recorded Date/ Time Do we have a copy on file here at [facility]? No January 19, 2017 10:06am Does patient have an Advanced Directive? No December 27, 2009 7:16am Pt has a Living Will? No November 7:16am Pt has a Power of Customer Support Executive? No Octo 2009 7:16am Chief Complaint and Reason for Visit Encounter Admit Date Chief Complaint Reason for V isit Departed Clinical April 15, 2017 10:37am Lab Hospital Discharge Instructions No known hospital discharge instructions. Encounters Encounter Facility Location Admit/Visit Date Discharge[facility]arture Date [facility] April 15, 2017 10:38am Carlos Nuñez [facility] March 18, 2017 1:55pm March 18, 2017 1:56pm Carlos Nuñez [facility] February 18, 2017 9:58am February 18, 2017 9:59am Carlos Nuñez [facility] January 19, 2017 10:08am January 19, 2017 10:09am Carlos Nuñez [facility] January 19, 2017 10:01am January 19, 2017 10:02am Sridevi Perez Functional Status No known functional status. Immunizations No known immunizations. Payers Payer Name Policy Type Covered Green Party Covered Green Party Id Relationship Subscriber Subscriber Id [place] SELF PAY Personal [place] (DO NOT USE) Medicaid LYNNE PREGENT [id number] Self/Same as Patient LYNNE PREGENT [id number] Plan of Care No Known Plan of Care Information Social History No known social history. Vital Signs No known vital signs results.
--- OUTSIDE RECORDS SUMMARY | 2023-03-30 02:34 | XMS_ITS | Continuity of Care Document ---
Author Name [facility] Address [address] [place] [address] Organization [facility] Address [address] [place] [address] Care Team Providers Care Business And Marketing Teacher Name Role Phone Marva Hitchcock Primary Care Physician Dada Rodriguez Attending Physician [phone] Allergies, Adverse Reactions, Alerts No known allergies. [...] November 22, 2017 Discontinue d Problem List Inactive/Resolved Problems Medical Problem Onset Date Status Myalgia Inactive Irregular menstrual cycle Inacti ve Acute viral syndrome Inactive Leukorrhea Inactive Inactive Genital lesion, female Inactive Procedures Procedure Date Status Group A Streptococcus Screen (HUI) January 17, 2018 completed Urine Culture January 14, 2018 completed Gram Stain November 17, 2017 completed Urine [...] 2017 9:25am 10.4 fL 7.4-10.4 Urine RBC January 14, 2018 7:28pm 0-2 /hpf Urine WBC January 14, 2018 7:28pm 10-20 /hpf High Urine Squamous Epithelial Cells January 14, 2018 7:28pm 2+ /hpf Urine Bacteria January 14, 2018 7:28pm 1+ /hpf High Urine Mucus January 14, 2018 7:28pm Present Urine Culture Done January 14, 2018 7:28pm Yes URINE SPECIMEN CULTURED Glucose 1 Hour Postprandial May 05, 2017 9:25am 118 mg/dL 50-500 Free Thyroxine June 09, 2017 10:11am 1.04 ng/dL 0.78-2.19 Thyroid Stimulating Hormone (TSH) June 09, 2017 10:11am 0.676 mlU/L 0.47-4.68 Microbiology Results Procedure Source Result Collection Date/Time Result Date/Time Urine Culture Ur,Clean Catch No results entered November 17, 2017 12:14pm Gram Stain Vaginal No results entered November 17, 2017 11:25am Urine Culture Ur,Clean Catch No results entered January 14, 2018 10:00pm Group A Streptococcus Screen (HUI) Throat No results entered January 17, 2018 9:45am Advance Directives Advance Directive Response Recorded Date/ Time Do we have a copy on file here at [facility]? No January 19, 2017 10:06am Does patient have an Advanced Directive? No December 27, 2009 7:16am Pt has a Living Will? No November 7:16am Pt has a Power of Police Commanding Officer? No Novo 2009 7:16am Hospital Discharge Instructions No known hospital discharge instructions. Hospital Discharge Medications Medication Dose Units Route Sig Qty Days Order Date Status Ins tructions Valacyclovir Jul Active Levothyroxine 175 MCG DAILY Ju 2017 Active July 31, 2017 Discontinue d Metronidazole 1 appful VAGINALLY DAILY 70 5 November 17, 2017 Discontinue d Encounters Encounter Facility Location Admit/Visit Date Discharge/Departure Date Attending Provider Departed Referred [facility] April 12, 2018 2:59pm April 12, 2018 3:00pm Dada Rodriguez Departed Emergency [facility] March 22, 2018 1:50pm March 22, 2018 2:13pm Departed Emergency [facility] January 17, 2018 9:29am January 17, 2018 10:03am Departed Emergency [facility] January 14, 2018 5:14pm January 14, 2018 6:45pm Departed Emergency [facility] November 17, 2017 10:29am November 17, 2017 11:26am Departed Emergency [facility] July 31, 2017 10:12am July 31, 2017 12:03pm Departed Clinical [facility] Laboratory June 09, 2017 10:06am June 09, 2017 10:07am [facility], [facility] 1:35pm May 12, 2017 1:36pm [facility] 8[facility]14am May 05, 2017 8:15am [facility] April 15, 2017 10:37am April 15, 2017 10:38am Carlos Nuñez Functional Status No known functional status. Immunizations No known immunizations. Payers Payer Name Policy Type Covered Constitution Party Covered Constitution Party Id Relationship Subscriber Subscriber Id [place] SELF PAY Personal [place] (DO NOT USE) Medicaid LYNNE PREGENT [id number] Self/Same as Patient LYNNE PREGENT [id number] Plan of Care No Known Plan of Care Information Social History Query Response Start Date Stop Date Smoking Status Never smoker Vital Signs Vital Reading Result Reference Range Collection Date/Time Height 5 ft 2 in March 22 1:56pm Weight 104.326 kg March 22 9 1:56pm Temperature 97.8 F 97.6 F-99.6 F March 22 1:56pm Pulse 72 BPM 60-100 March 22 1:56pm Respiration 16 RPM 02-21March 22 1:56pm Pulse Oximetry 99 % 95-100 March 22 019 1:56pm Blood Pressure Systolic 120 100-140 2018 1:56pm Blood Pressure Diastolic 70 50-85 Mar 2018 1:56pm Body Mass Index 42.0 March 22, 2018 1:56pm
--- OUTSIDE RECORDS SUMMARY | 2023-03-30 02:34 | XMS_ITS | Continuity of Care Document ---
Author Name [facility] Address [address] [place] [address] Organization [facility] Address [address] [place] [address] Care Team Providers Care Wedding Planning Internship Name Role Phone Carlos Nuñez Primary Care Physician Brada Carlos Luo Attending Physician Unavailable Allergies, Adverse Reactions, Alerts No allergy information available. Medications No medication information available. Problem List No problem information available. Procedures No known history of procedures. Relevant Diagnostic Tests and/or Laboratory Data Laboratory Results Test Date/Time Result Interp. Ref. Range Result Co mment Free Thyroxine August 23, 2015 5:24pm 1.92 ng/dL 0.78-2.19 Thyroid Stimulating Hormone (TSH) August 23, 2015 5:24pm 0.368 mlU/L Low 0.47-4.68 Total Triiodothyronine August 23, 2015 5:24pm 119 ng/dL 60-181 Test Performed by: [place] [address] Chart Snatcher: Sina Trejo MD , Ph D Advance Directives Advance Directive Response Recorded Date/ Time Does the patient have a living will? No December 27, 2009 7:16am Does the patient have an advanced directive? No December 27, 2009 7:16am Power of Rendering Equipment Tender? No December 27 010 7:16am Hospital Discharge Instructions No known hospital discharge instructions. Encounters Encounter Facility Location Admit Date Discharge Date Attending Provider Registered Clinical [facility] August 23, 2015 5:10pm Carlos Nuñez Registered Clinical [facility] June 20, 2015 7:18am Carlos Nuñez Registered Clinical [facility] February 07, 2015 8:04Ruslan Kennedy Functional Status No known functional status. Immunizations No known immunizations. Payers Payer Name Policy Type Covered Alliance Party Covered Alliance Party Id Relationship Subscriber Subscriber Id [place] LYNNE PREGDONALDO [id number] SELF/SAME PATIENT LYNNE PREGENT [id number] Plan of Care No known plan of care. Social History No known social history. Vital Signs No known vital signs results.
--- OUTSIDE RECORDS SUMMARY | 2023-03-30 02:34 | XMS_ITS | Continuity of Care Document ---
Author Name [facility] Address [address] [place] [address] Organization [facility] Address [address] [place] [address] Care Team Providers Care Surgical Orderly Name Role Phone Marva Hitchcock Primary Care Physician Dada Rodriguez Attending Physician Allergies, Adverse Reactions, Alerts No known [...] have a copy on file here at [facility]? No January 19, 2017 10:06am Does patient have an Advanced Directive? No December 27, 2009 7:16am Pt has a Living Will? No November 7:16am Pt has a Power of Mincemeat Maker? No Novo 2009 7:16am Hospital Discharge Instructions [...] 12, 2018 3:00pm Dada Rodriguez Departed Emergency [facility] March 22, 2018 1:50pm March 22, 2018 2:13pm Departed Emergency [facility] January 17, 2018 9:29am January 17, 2018 10:03am Departed Emergency [facility] January 14, 2018 5:14pm January 14, 2018 6:45pm Departed Emergency [facility] November 17, 2017 10:29am November 17, 2017 11:26am Departed Emergency [facility] July 31, 2017 10:12am July 31, 2017 12:03pm Departed Clinical [facility] June 09, 2017 10:06am June 09, 2017 10:07am [facility] May 12, 2017 1:35pm May 12, 2017 1:36pm [facility] 8:14am May 05, 2017 8:15am [facility] April 15, 2017 10:37am April 15, 2017 10:38am Carlos Nuñez Functional Status No known functional status. Immunizations No known immunizations. Payers Payer Name Policy Type Covered Constitution Party Covered Constitution Party Id Relationship Subscriber Subscriber Id [place] SELF PAY Personal [place] MEDICAID (DO NOT USE) Medicaid LYNNE PREGENT [id number] Self/Same as Patient LYNNE PREGENT [id number] Plan of Care No Known Plan of [...]
--- OUTSIDE RECORDS SUMMARY | 2023-03-30 02:34 | XMS_ITS | Continuity of Care Document ---
Author Name [facility] Address [address] [place] [address] Organization [facility] Address [address] [place] [address] Care Team Providers Care Dry Plasterer Helper Name Role Phone Carlos Nuñez Primary Care [...] 2017 11:40am Negative Test Performed by: [place] [address] Inpatient Services Director: Sina Trejo MD , Ph D Rubella IgG Antibody January 19, 2017 11:40am Positive New methodology in use 06/08/16. Positive for IgG antibodies to Rubella virus. Test Performed by: [place] [address] Inpatient Services Director: Sina Trejo MD , Ph D Varicella-Zoster IgG Antibody January 19, 2017 11:40am Positive Presence of detectable Varicella Zoster virus IgG antibodies. Test Performed by: [place] [address] Inpatient Services Director: Sina Trejo MD , Ph D Advance Directives Advance Directive Response Recorded Date/ Time Do we have a copy on file here at [facility]? No January 19, 2017 10:06am Does patient have an Advanced Directive? No December 27, 2009 7:16am Pt has a Living Will? No November 7:16am Pt has a Power of Cigar Brander? No Octo 2009 7:16am Chief Complaint and Reason for Visit Encounter Admit Date Chief Complaint Reason for V isit Departed Clinical January 19, 2017 10:01am Lab Hospital Discharge Instructions No known hospital discharge instructions. Encounters Encounter Facility Location Admit/Visit Date Discharge/Departure Date Attending Provider Departed Clinical [facility] February 18, 2017 9:58am February 18, 2017 9:59am Carlos Nuñez Departed [facility] January 19, 2017 10:08am January 19, 2017 10:09am Carlos Nuñez Departed [facility] January 19, 2017 10:01am January 19, 2017 10:02am Sridevi Perez Functional Status No known functional status. Immunizations No known immunizations. Payers Payer Name Policy Type Covered Alliance Party Covered Alliance Party Id Relationship Subscriber Subscriber Id [place]F [place] Personal [place]DO [place] USE[place] Medicaid LYNNE PREGENT [id number] Self/Same as Patient LYNNE PREGENT [id number] Plan of Care No Known Plan of Care Information Social History No known social history. Vital Signs No known vital signs results.
--- OUTSIDE RECORDS SUMMARY | 2023-03-30 02:34 | XMS_ITS | Continuity of Care Document ---
Author Name [facility] Address [address] [place] [address] Organization [facility] Address [address] [place] [address] Care Team Providers Care Metal Window Frame Maker Name Role Phone Carlos Nuñez Primary Care Physician Maral Godoy Attending Physician Unavaildanial ramirez Allergies, Adverse Reactions, Alerts No allergy [...] 2017 9:25am 118 mg/dL 50-500 Free Thyroxine April 15, 2017 10:45am 1.05 ng/dL 0.78-2.19 Thyroid Stimulating Hormone (TSH) April 15, 2017 10:45am 0.419 mlU/L Low 0.47-4.68 Hepatitis B Surface Antigen January 19, 2017 11:40am Negative Test Performed by: [place] [address] Instructor Bridge: Sina Trejo MD , Ph D Rubella IgG Antibody January 19, 2017 11:40am Positive New methodology in use 06/08/16. Positive for IgG antibodies to Rubella virus. Test Performed by: [place] [address] Instructor Bridge: Sina Trejo MD , Ph D Varicella-Zoster IgG Antibody January 19, 2017 11:40am Positive Presence of detectable Varicella Zoster virus IgG antibodies. Test Performed by: [place] [address] Instructor Bridge: Sina Trejo MD , Ph D Advance Directives Advance Directive Response Recorded Date/ Time Do we have a copy on file here at [facility]? No January 19, 2017 10:06am Does patient have an Advanced Directive? No December 27, 2009 7:16am Pt has a Living Will? No November 7:16am Pt has a Power of Hydro Mechanic? No Octo 2009 7:16am Chief Complaint and Reason for Visit Encounter Admit Date Chief Complaint Reason for V isit Departed Clinical May 05, 2017 8:14am Lab Hospital Discharge Instructions No known hospital discharge instructions. Encounters Encounter Facility Location Admit/Visit Date Discharge/Departure Date Attending Provider Departed [facility] May 05, 2017 8:14am May 05, 2017 8:15am Maral Deal Departed [facility] April 15, 2017 10:37am April 15, 2017 10:38am [facility] March 18, 2017 1:55pm March 18, 2017 1:56pm [facility] 18, 2017 9:58am February 18, 2017 9:59am Carlos Nueñz [facility] January [...] [place]DO [place] USE[place] Medicaid LYNNE PREGDONALDO [id number] Self/Same as Patient LYNNE PREGENT [id number] Plan of Care No Known Plan of Care Information Social History No known social history. Vital Signs No known vital signs results.
--- OUTSIDE RECORDS SUMMARY | 2023-03-30 02:34 | XMS_ITS | Continuity of Care Document ---
Author Name [facility] Address [address] [place] [address] Organization [facility] Address [address] [place] [address] Care Team Providers Care Steam Plant Records Clerk Name Role Phone Carlos Nuñez Primary [...] 2017 11:40am Negative Test Performed by: [place] [address] Associate Account Director: Sina Trejo MD , Ph D Rubella IgG Antibody January 19, 2017 11:40am Positive New methodology in use 06/08/16. Positive for IgG antibodies to Rubella virus. Test Performed by: [place] [address] Associate Account Director: Sina Trejo MD , Ph D Varicella-Zoster IgG Antibody January 19, 2017 11:40am Positive Presence of detectable Varicella Zoster virus IgG antibodies. Test Performed by: [place] [address] Associate Account Director: Sina Trejo MD , Ph D Advance Directives Advance Directive Response Recorded Date/ Time Do we have a copy on file here at [facility]? No January 19, 2017 10:06am Does patient have an Advanced Directive? No December 27, 2009 7:16am Pt has a Living Will? No November 7:16am Pt has a Power of Wire Coating Operator Metal? No Octo 2009 7:16am Chief Complaint and Reason for Visit Encounter Admit Date Chief Complaint Reason for V isit Departed Clinical January 19, 2017 10:01am Lab Hospital Discharge Instructions No known hospital discharge instructions. Encounters Encounter Facility Location Admit/Visit Date Discharge/Departure Date Attending Provider Departed Clinical [facility] February 18, 2017 9:58am February 18, 2017 9:59am Carlos Nuñez Departed [facility] January 19, 2017 10:08am January 19, 2017 10:09am Carlos Nuñez Departed [facility] January 19, 2017 10:01am January 19, 2017 10:02am Sridevi Perez Functional Status No known functional status. Immunizations No known immunizations. Payers Payer Name Policy Type Covered Constitution Party Covered Constitution Party Id Relationship Subscriber Subscriber Id [place]ELF [place] Personal [place]DO [place] USE[place] Medicaid LYNNE PREGENT [id number] Self/Same as Patient LYNNE PREGENT [id number] Plan of Care No Known Plan of Care Information Social History No known social history. Vital Signs No known vital signs results.
--- OUTSIDE RECORDS SUMMARY | 2023-03-30 02:34 | XMS_ITS | Continuity of Care Document ---
Author Name [facility] Address [address] [place] [address] Organization [facility] Address [address] [place] [address] Care Team Providers Care Bistro Server Name Role Phone Marva Hitchcock Primary Care [...] Active Problems Medical Problem Onset Date Status Irregular menstrual cycle Active Inactive/Resolved Problems Medical Problem Onset Date Status Myalgia Inactive Acute viral syndrome Inactive Leukorrhea Inactive Inactive [...] have a copy on file here at [facility]? No January 19, 2017 10:06am Does patient have an Advanced Directive? No December 27, 2009 7:16am Pt has a Living Will? No November 7:16am Pt has a Power of Malt Specifications Control Assistant? No Octo 2009 7:16am Hospital Discharge Instructions Additional Discharge Instructions Please call [phone] to set up an appointment to see a Maintenance Pipefitter at the [facility] in [place] or follow-up with your primary care provider for testing to see why you are missing your period. Follow-up immediately for excessive bleeding, acutely worsening abdominal pain, other new/concerning symptoms. No Instructions/Education [facility] Discharge Medications Medication Dose Units Route Sig Qty Days Order Date Status Ins tructions Valacyclovir Jul Active Levothyroxine 175 MCG DAILY Ju 2017 Active July 31, 2017 Discontinue d Metronidazole 1 appful VAGINALLY DAILY 70 5 November 17, 2017 Discontinue d Encounters Encounter Facility Location Admit/Visit Date Discharge/Departure Date Attending Provider Departed Emergency [facility] March 22, 2018 1:50pm March 22, 2018 2:13pm Departed Emergency [facility] January 17, 2018 9:29am January 17, 2018 10:03am Departed [facility] January 14, 2018 5:14pm January 14, 2018 6:45pm Departed [facility] November 17, 2017 10:29am November 17, 2017 11:26am Departed [facility] July 31, 2017 10:12am July 31, 2017 12:03pm Departed [facility] June 09, 2017 10:06am June 09, 2017 10:07am Carlos Nuñez [facility] May 12, 2017 1:35pm May 12, 2017 1:36pm aCrlos Nuñez [facility] May 05, 2017 8:14am May 05, 2017 8:15am Maral Deal [facility] April 15, 2017 10:37am April 15, 2017 10:38am Carlos Nuñez Functional Status No known functional status. Immunizations No known immunizations. Payers Payer Name Policy Type Covered Constitution Party Covered Constitution Party Id Relationship Subscriber Subscriber Id [place] SELF PAY Personal [place] MED[place] (DO NOT USE) Medicaid LYNNE PREGENT [id number] Self/Same as Patient LYNNE PREGENT [id number] Plan of Care No Known Plan of Care Information Social History Query Response Start Date Stop Date Smoking Status Never smoker Vital Signs Vital Reading Result Reference Range Collection Date/Time Height 5 ft 2 in March 22 9 1:56pm Weight 104.326 kg March 22 1:56pm Temperature 97.8 F 97.6 F-99.6 F March 22 1:56pm Pulse 72 BPM 60-100 March 22 1:56pm Respiration 16 RPM 12-March 22 1:56pm Pulse Oximetry 99 % 95-100 March 22 019 1:56pm Blood Pressure Systolic 120 100-140 [facility] 1:56pm Blood Pressure Diastolic 70 50-85 Josh [facility] 2018 1:56pm Body Mass Index 42.0 March 22, 2018 1:56pm
--- OUTSIDE RECORDS SUMMARY | 2023-03-30 02:34 | XMS_ITS | Continuity of Care Document ---
Author Name [facility] Address [address] [place] [address] Organization [facility] Address [address] [place] [address] Care Team Providers Care Senior Instrumentation Engineer Name Role Phone Marva Hitchcock Primary [...] Medical Problem Onset Date Status Myalgia Active Acute viral syndrome Active Inactive/Resolved Problems Medical Problem Onset Date Status Leukorrhea Inactive Inactive Genital lesion, female Inactive Procedures Procedure Date Status Urine Culture January 14, 2018 completed Gram [...] 2017 11:40am Negative Test Performed by: [place] [address] Shoemaker Custom: Sina Trejo MD , Ph D Rubella IgG Antibody January 19, 2017 11:40am Positive New methodology in use 06/08/16. Positive for IgG antibodies to Rubella virus. Test Performed by: [place] [address] Shoemaker Custom: Sina Trejo MD , Ph D Varicella-Zoster IgG Antibody January 19, 2017 11:40am Positive Presence of detectable Varicella Zoster virus IgG antibodies. Test Performed by: [place] [address] Shoemaker Custom: Sina Trejo MD , Ph D Microbiology Results Procedure Source Result Collection Date/Time Resu lt Date/Time Urine Culture Ur,Clean Catch No results entered 2017 12:14pm Gram Stain Vaginal No results entered November 17, 2017 11:25am Urine Culture Ur,Clean Catch No results entered [facility] 2017 10:00pm Advance Directives Advance Directive Response Recorded Date/ Time Do we have a copy on file here at [facility]? No January 19, 2017 10:06am Does patient have an Advanced Directive? No December 27, 2009 7:16am Pt has a Living Will? No November 7:16am Pt has a Power of Community Case Manager? No Octo 2009 7:16am Hospital Discharge Instructions Additional Discharge Instructions Follow -up with your primary care provider next week if symptoms are not improving. Follow-up immediately for acutely worsening symptoms, high fever, shortness of breath, chest pain or other new/concerning symptoms. No Instructions/Education [facility] Hospital Discharge Medications Medication Dose Units Route Sig Qty Days Order Date Status Ins tructions Valacyclovir Jul Active Levothyroxine 175 MCG DAILY 2017 Active July 31, 2017 Discontinue d Metronidazole 1 appful VAGINALLY DAILY 70 5 November 17, 2017 Discontinue d Encounters Encounter Facility Location Admit/Visit Date Discharge/Departure Date Attending Provider Departed Emergency [facility] January 17, 2018 9:29am January 17, 2018 10:03am Departed Emergency [facility] January 14, 2018 5:14pm January 14, 2018 6:45pm Departed Emergency [facility] November 17, 2017 10:29am November 17, 2017 11:26am Departed Emergency [facility] July 31, 2017 10:12am July 31, 2017 12:03pm Departed [facility] June 09, 2017 10:06am June 09, 2017 10:07am Carlos Nuñez [facility] May 12, 2017 1:35pm May 12, 2017 1:36pm Carlos Nuñez [facility] May 05, 2017 8:14am May 05, 2017 8:15am Maral Deal [facility] April 15, 2017 10:37am April 15, 2017 10:38am Carlos Nuñez [facility] March 18, 2017 1:55pm March 18, 2017 1:56pm Carlos Nuñez [facility] February 18, 2017 9:58am February 18, 2017 9:59am Carlos Nuñez Departed Clinical [facility] January 19, 2017 10:08am January 19, 2017 10:09am Carlos Nuñez Departed Clinical [facility] January 19, 2017 10:01am January 19, 2017 10:02am Srdievi Perez Functional Status No known functional status. Immunizations No known immunizations. Payers Payer Name Policy Type Covered Libertarian Covered Libertarian Id Relationship Subscriber Subscriber Id MEDICAID [facility] Medicaid SELF PAY Personal [place] MEDICAID (DO NOT USE) Medicaid LYNNE PREGENT [id number] Self/Same as Patient LYNNE PREGENT [id number] Plan of Care No Known Plan of Care Information Social History Query Response Start Date Stop Date Smoking Status Never smoker Vital Signs Vital Reading Result Reference Range Collection Date/Time Height 5 ft 2 in January 17 9:33am Weight 104.326 kg January 17 9:33am Temperature 97.8 F 97.6 F-99.6 F January 17 018 9:33am Pulse 64 BPM 60-100 January 17 9:33am Respiration 17 RPM 12-January 17 9:33am Pulse Oximetry 99 % 95-100 January 17, 2018 9:33am Blood Pressure Systolic 110 100-140 2017 9:33am Blood Pressure Diastolic 70 50-85 Dec 9:33am Body Mass Index 42.0 January 17, 2018 9:33am
--- OUTSIDE RECORDS SUMMARY | 2023-03-30 02:34 | XMS_ITS | Continuity of Care Document ---
Author Name [facility] Address [address] [place] [id number] Organization [facility] Address [address] [place] [address] Care Team Providers Care Geospatial Information Technologist Name Role Phone Carlos Nuñez Primary Care Physician Raj ble Out of Town, Provider Attending Physician Nabila deluca Allergies, Adverse Reactions, Alerts No allergy information [...] 2017 11:40am Negative Test Performed by: [place] [address] Tower Switch Operator: Sina Trejo MD , Ph D Rubella IgG Antibody January 19, 2017 11:40am Positive New methodology in use 06/08/16. Positive for IgG antibodies to Rubella virus. Test Performed by: [place] [address] Tower Switch Operator: Sina Trejo MD , Ph D Varicella-Zoster IgG Antibody January 19, 2017 11:40am Positive Presence of detectable Varicella Zoster virus IgG antibodies. Test Performed by: [place] [address] Tower Switch Operator: Sina Trejo MD , Ph D Advance Directives Advance Directive Response Recorded Date/ Time Do we have a copy on file here at [facility]? No January 19, 2017 10:06am Does patient have an Advanced Directive? No December 27, 2009 7:16am Pt has a Living Will? No November 7:16am Pt has a Power of Magnetic Prospector? No Octo 2009 7:16am Chief Complaint and Reason for Visit Encounter Admit Date Chief Complaint Reason for V isit Departed Clinical May 05, 2017 8:14am Lab Hospital Discharge Instructions No known hospital discharge instructions. Encounters Encounter Facility Location Admit/Visit Date Discharge/Departure Date Attending Provider Departed [facility] May 05, 2017 8:14am May 05, 2017 8:15am Out of Town, Provider Departed [facility] April 15, 2017 10:37am April 15, 2017 10:38am [facility], [facility] 1:55pm March 18, 2017 1:56pm [facility], [facility] 9:58am February 18, 2017 9:59am [facility] January 19, 2017 10:08am January 19, 2017 10:09am Carlos Nuñez [facility] January 19, 2017 10:01am January 19, 2017 10:02am Sridevi Perez Functional Status No known functional status. Immunizations No known immunizations. Payers Payer Name Policy Type Covered Republican Covered Republican Id Relationship Subscriber Subscriber Id [place] Medicaid SELF PAY Personal [place] (DO NOT USE) Medicaid LYNNE PREGENT [id number] Self/Same as Patient LYNNE PREGENT [id number] Plan of Care No Known Plan of Care Information Social History No known social history. Vital Signs No known vital signs results.
--- OUTSIDE RECORDS SUMMARY | 2023-03-30 02:34 | XMS_ITS | Continuity of Care Document ---
Author Name [facility] Address [address] [place] [id number] Organization [facility] Address [address] [place] [address] Care Team Providers Care Check Examiner Name Role Phone Carlos Nuñez Primary Care [...] 2017 11:40am Negative Test Performed by: [place] [address] Tax Analyst: Sina Trejo MD , Ph D Rubella IgG Antibody January 19, 2017 11:40am Positive New methodology in use 06/08/16. Positive for IgG antibodies to Rubella virus. Test Performed by: [place] [address] Tax Analyst: Sina Trejo MD , Ph D Varicella-Zoster IgG Antibody January 19, 2017 11:40am Positive Presence of detectable Varicella Zoster virus IgG antibodies. Test Performed by: [place] [address] Tax Analyst: Sina Trejo MD , Ph D Advance Directives Advance Directive Response Recorded Date/ Time Do we have a copy on file here at [facility]? No January 19, 2017 10:06am Does patient have an Advanced Directive? No December 27, 2009 7:16am Pt has a Living Will? No November 7:16am Pt has a Power of Crusher Setter? No Octo 2009 7:16am Chief Complaint and Reason for Visit Encounter Admit Date Chief Complaint Reason for V isit Departed Clinical February 18, 2017 9:58am Lab Hospital Discharge Instructions No known hospital discharge instructions. Encounters Encounter Facility Location Admit/Visit Date Discharge/Departure Date Attending Provider Departed [facility] February 18, 2017 9:58am February 18, 2017 9:59am Carlos Nuñez Departed Clinical [facility] January 19, 2017 10:08am January 19, 2017 10:09am Carlos Nuñez Departed [facility] January 19, 2017 10:01am January 19, 2017 10:02am Sridevi Perez Functional Status No known functional status. Immunizations No known immunizations. Payers Payer Name Policy Type Covered Libertarian Covered Libertarian Id Relationship Subscriber Subscriber Id MEDICAID [facility] Medicaid SELF PAY Personal [place] (DO NOT USE) Medicaid LYNNE PREGENT [id number] Self/Same as Patient LYNNE PREGENT [id number] Plan of Care No Known Plan of Care Information Social History No known social history. Vital Signs No known vital signs results.
--- OUTSIDE RECORDS SUMMARY | 2023-03-30 02:34 | XMS_ITS | Continuity of Care Document ---
Author Name [facility] Address [address] [place] [address] Organization [facility] Address [address] [place] [address] Care Team Providers Care Eight Arm Operator Name Role Phone Marva Hitchcock Primary Care Physician Allergies, Adverse Reactions, Alerts No known allergies. Medications Active Medications Medication Dose Units Route Sig Qty Days Start Date St atus Albuterol Sulfate [Proair Hfa] INHALATION October 18, 2018 Active Drospirenone-Ethinyl Estradiol TAB October 18, 2018 Active Acyclovir 400 MG ORAL THREE TIMES A DAY February 10, 2019 Active Valacyclovir July 31 8 Active Levothyroxine 175 MCG DAILY July 31 Active Discontinued Medications Medication Dose Units Route Sig Qty Days Start Date Di scontinued Date Status July 31, 2017 November 17, 2017 Discontinue d Metronidazole [Metrogel Vaginal] 1 appful VAGINALLY DAILY 70 5 November 17, 2017 November 22, 2017 Discontinue d Problem List Active Problems Medical Problem Onset Date Status Acute vulvitis Active History of PCR DNA positive for HSV1 Active Myopia February 07, 2015 Open wound of forearm May 26, 2016 Acute upper respiratory infection of multiple si pop October 30, 2013 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, 2017 Headache February 07, 2015 Inactive/Resolved Problems Medical Problem Onset Date Status Myalgia Inactive Irregular menstrual cycle Inacti ve Ovarian cyst Inactive Acute viral syndrome Inactive Leukorrhea Inactive Inactive Genital lesion, female Inactive Left sided abdominal pain Inacti ve Pain in rib Inactive Lipoma of chest wall Inactive Procedures Procedure Date Status US Transvaginal Non-OB October 19, 2018 completed EMERGENCY DEPT VISIT November 23, 2014 active URINE TEST November 23, 2014 active URINALYSIS AUTO W/O SCOPE November 23, 2014 act connor US EXAM PELVIC COMPLETE November 23, 2014 activ e TRANSVAGINAL US NON-OB November 23, 2014 active US Pelvic Transvaginal Panel November 23, 2014 completed EMERGENCY DEPT VISIT May 27, 2014 active COMPLETE CBC W/AUTO DIFF WBC May 27, 2014 act connor ASSAY OF UREA NITROGEN May 27, 2014 active ASSAY GLUCOSE BLOOD QUANT May 27, 2014 active ASSAY OF CREATININE May 27, 2014 active ELECTROLYTE PANEL May 27, 2014 active ROUTINE VENIPUNCTURE May 27, 2014 active US Pelvic Transvaginal Panel May 27, 2014 com pleted Nasal Bones 3 vw Min March 13, 2014 completed X-RAY EXAM OF NASAL BONES March 13, 2014 activ e N.GONORRHOEAE DNA AMP PROB February 27, 2012 act connor CHYLMD TRACH DNA AMP PROBE February 27, 2012 act connor EMERGENCY DEPT VISIT November 11, 2011 active AIRWAY INHALATION TREATMENT November 11, 2011 a ctive CHEST X-RAY 2VW FRONTAL&LATL November 11, 2011 active Chest 2 vw November 11, 2011 completed EMERGENCY DEPT VISIT March 17, 2011 active US Pelvic Non-OB (Complete) February 16, 2011 co mpleted Group A Streptococcus Screen (HUI) completed Gram Stain completed Urine Culture completed Relevant Diagnostic Tests and/or Laboratory Data Laboratory Results Test Date/Time Result Interp. Ref. Range Result Co mment White Blood Count 9.96 1000/mm3 4.8-10.8 Red Blood Count 4.66 M/mm3 4.20-5.40 Hemoglobin 13.5 g/dL 12.0-16.0 Hematocrit 39.7 % 37-47 Mean Corpuscular Volume 85.2 fL 81.0-9 9.0 Mean Corpuscular Hemoglobin 29.0 pg 27-31 Mean Corpuscular Hemoglobin Concent 34.0 g/dL 33-37 Red Cell Distribution Width 13.1 % 11.5-14.5 Platelet Count 272 1000/mm3 140-440 Mean Platelet Volume 10.4 fL 7.4-10.4 Neutrophils (%) (Auto) 55.4 % 40.0-72 .0 Lymphocytes (%) (Auto) 33.3 % 17-45 Monocytes (%) (Auto) 8.4 % 3-11 Eosinophils (%) (Auto) 1.6 % 0-3 Basophils (%) (Auto) 1.3 % High 0-1 Neutrophils # (Auto) 5.51 1000/mm3 1.4-6 .5 Lymphocytes # (Auto) 3.32 1000/mm3 1.2-3 .4 Monocytes # (Auto) 0.84 1000/mm3 High 0.0-0.8 Eosinophils # (Auto) 0.16 1000/mm3 0.0-0 .7 Basophils # (Auto) 0.13 1000/mm3 High 0.0-0.1 Differential Method Automated Erythrocyte Sedimentation Rate 4 mm/hr 0-15 Urine RBC 0-2 /hpf Urine WBC 10-20 /hpf High Urine Squamous Epithelial Cells 2+ /hpf Urine Bacteria 1+ /hpf High Urine Mucus Present Urine Culture Done Yes U RINE SPECIMEN CULTURED Sodium Level 142 mmol/L 137-145 Potassium Level 3.7 mmol/L 3.6-5.0 Chloride Level 107 mmol/L 98-107 Carbon Dioxide Level 28 mmol/L 22-30 Anion Gap 11 5-15 Blood Urea Nitrogen 11 mg/dL 7-17 Creatinine 0.67 mg/dL 0.52-1.04 Glomerular Filtration Rate Calc TNP Test not perfor med GFR cannot be calculated due to patient age. GFRs are only calculated on patients >18 years of age. Glucose Level 87 mg/dL 65-108 Glucose 1 Hour Postprandial 89 mg/dL 50-500 Calcium Level 9.1 mg/dL 8.4-10.2 Calcium Adjusted for Albumin 9.0 mg/dL 8.4-10.2 Total Bilirubin < 0.1 mg/dL Low 0.6-10.5 Direct Bilirubin 0 mg/dL 0-0.6 Aspartate Amino Transf (AST/SGOT) 28 U/L 14-36 Alanine Aminotransferase (ALT/SGPT) 31 U/L 9-52 Total Protein 6.1 g/dL Low 6.3-8.2 Albumin 3.6 g/dL 3.5-5.0 Alkaline Phosphatase 74 U/L 38-126 Lipase 105 u/L 23-300 Free Thyroxine 0.83 ng/dL 0.78-2.19 Thyroxine (T4) 5.57 ug/dL 5.53-11.0 Thyroid Stimulating Hormone (TSH) 0.009 mlU/L Low 0.47-4.68 Body Fl Triiodothyronine (T3) Total 138 ng/dL 85-188 Test Performed by: [place] [address] Preschool Program Director: Felix Max M.D. Thyroid Stimulating Immunoglobulin 1.2 TSI index Test Perform ed by: [address] [address] Molasses Coloring Operator: Surinder Mackay III, M.D. Immunoglobulin A 100 mg/dL Pop t Performed by: [place] [address] Preschool Program Director: Felix Max M.D. Thyroperoxidase Antibody > 1300 IU/mL High Test Performed by: [place] [address] Preschool Program Director: Jaylon Loya M.D. Thyroglobulin Antibody 100 U/mL High Tissue Transglutaminase IgA Ab < 1.3 U/mL -- REFERENCE VA LUE -- <4 (Negative) Test Performed by: [place] [address] [employer]asses Coloring Operator: Chacha Carrington, Ph.D. Hepatitis B Surface Antigen Negative Test Performed by: [place] [address] Preschool Program Director: Sina Trejo MD , Ph D Rubella IgG Antibody Positive New methodology in use 06/08/16. Positive for IgG antibodies to Rubella virus. Test Performed by: [place] [address] Preschool Program Director: Sina Trejo MD , Ph D Varicella-Zoster IgG Antibody Positive Presence of detectable Varicella Zoster virus IgG antibodies. Test Performed by: [place] [address] Preschool Program Director: Sina Trejo MD , Ph D Chlamydia trachomatis Amplified DNA See comments No Chlamydia trachomatis DNA detected by reo asset manager mediated amplification. Neisseria gonorrhoeae Amplified DNA See comments No Neisseria gonorrhoeae DNA detected by reo asset manager mediated amplification. Test Performed by: [place] [address] Preschool Program Director: Jaylon Loya M.D. Microbiology Results Procedure Source Result Collection Date/Time Resu lt Date/Time Advance Directives Advance Directive Response Recorded Date/ Time Do we have a copy on file here at [facility]? No January 19, 2017 10:06am Does patient have an Advanced Directive? No December 27, 2009 7:16am Pt has a Living Will? No November 7:16am Pt has a Power of Transfer Man? No Octo 2009 7:16am Hospital Discharge Instructions Additional Discharge Instructions Your p resenting rash is not highly suggestive of herpes simplex virus however given your history we will start antiviral treatment as discussed. You may pick this up at the pharmacy. The cultures obtained today will be sent to the lab and you will be notified over the next 48 hours if we need to change her treatment plan at all otherwise finish the acyclovir as discussed and expect improved symptoms into early next week. Follow-up for any new or worsening symptoms. No Instructions/Education Pr ovided Hospital Discharge Medications Medication Dose Units Route Sig Qty Days Order Date Status Ins tructions Albuterol Sulfate INHALATION September Active Drospirenone-E thinyl Estradiol TAB October 18, 2018 Active Acyclovir 400 MG ORAL THREE TIMES A DAY February 10, 2019 Active Valacyclovir Jul Active Levothyroxine 175 MCG DAILY Ju 2017 Active July 31, 2017 Discontinue d Metronidazole 1 appful VAGINALLY DAILY 70 5 November 17, 2017 Discontinue d Encounters Encounter Facility Location Admit/Visit Date Discharge/Departure Date Attending Provider Departed Emergency [facility] February 10, 2019 8:30am February 10, 2019 9:34am Departed Emergency [facility] Emergency Department October 19, 2018 8:00am October 19, 2018 9:49am Departed Emergency [facility] Emergency Department October 18, 2018 5:08pm October 18, 2018 7:28pm Departed Emergency [facility] September 07, 2018 12:04pm September 07, 2018 12:59pm Departed Referred [facility] O[facility] April 12, 2018 2:59pm April 12, 2018 3:00pm Dada Rodriguez Departed Physician/Pr ovider Office Visit [facility] CUSTOMER SERVICE SUPERVISOR April 12, 2018 12:00am April 12, 2018 MedGloria mcmanus Departed Emergency [facility] March 22, 2018 1:50pm March 22, 2018 2:13pm Departed Emergency [facility] January 17, 2018 9:29am January 17, 2018 10:03am Departed Emergency [facility] January 14, 2018 5:14pm January 14, 2018 6:45pm Departed Emergency [facility] November 17, 2017 10:29am November 17, 2017 11:26am Departed Emergency [facility] July 31, 2017 10:12am July 31, 2017 12:03pm Departed Clinical [facility] Laboratory June 09, 2017 10:06am June 09, 2017 10:07am Carlos Nuñez Departed [facility] Laboratory May 12, 2017 1:35pm May 12, 2017 1:36pm Carlos Nuñez Departed Clinical [facility] May 05, 2017 8:14am May 05, 2017 8:15am Maral Deal Departed Clinical [facility] April 15, 2017 10:37am April 15, 2017 10:38am Carlos Nuñez Departed [facility] Laboratory March 18, 2017 1:55pm March 18, 2017 1:56pm Carlos Nuñez Departed Physician/Pr ovider Office Visit [facility] Ophthalmology February 24, 2017 12:00am February 24, 2017 Medyonathan, Gloria Departed Clinical [facility] February 18, 2017 9:58am February 18, 2017 9:59am Carlos Nuñez Departed [facility] Laboratory January 19, 2017 10:08am January 19, 2017 10:09am Carlos Nuñez Departed Clinical [facility] January 19, 2017 10:01am January 19, 2017 10:02am Sridevi Perez Departed Physician/Pr ovider Office Visit [facility] October 12, 2016 12:00am October 12, 2016 Medent, Conversion Departed Physician/Pr ovider Office Visit [facility] May 26, 2016 12:00am May 26, 2016 Medent, Conversion Registered Clinical [facility] August 23, 2015 5:10pm Carlos Nuñez Departed Physician/Pr ovider Office Visit [facility] July 08, 2015 12:00am July 08, 2015 Isabella Alanis Registered Clinical [facility] June 20, 2015 7:18am Carlos Nuñez Registered Clinical [facility] Ophthalmology February 07, 2015 8:04am Ruslan Aldrich Departed Physician/Pr ovider Office Visit [facility] Ophthalmology February 07, 2015 12:00am February 07, 2015 Gloria Miguel Registered Emergency [facility] Emergency Department November 23, 2014 8:09am Departed Emergency [facility] Emergency Department November 23, 2014 12:39am November 23, 2014 1:23am Registered Clinical [facility] Laboratory October 01, 2014 11:16am Carlos Nuñez Departed Physician/Pr ovider Office Visit [facility] July 18, 2014 12:00am July 18, 2014 Tracey Williamson Departed Emergency [facility] Emergency Department May 27, 2014 12:16pm May 27, 2014 3:43pm Departed Emergency [facility] Emergency Department March 13, 2014 12:30am March 13, 2014 2:36am Registered Clinical [facility] Laboratory February 02, 2014 1:17pm Carlos Nuñez Departed Physician/Pr ovider Office Visit [facility] November 23, 2013 12:00am November 23, 2013 Manny Rubio Departed Physician/Pr ovider Office Visit [facility] October 30, 2013 12:00am October 30, 2013 Elena Zelaya Registered Clinical [facility] April 21, 2013 11:28am Carlos Nuñez Registered Clinical [facility] April 13, 2012 12:52pm Paradise Reyes Departed Emergency [facility] Emergency Department February 27, 2012 10:31pm February 28, 2012 1:45am Registered Referred [facility] Referred Lab February 12, 2012 6:30pm Luis Copeland i Registered Clinical [facility] January 13, 2012 10:14am Paradise Reyes Departed Emergency [facility] Emergency Department November 11, 2011 3:46pm November 11, 2011 5:14pm Registered Clinical [facility] July 13, 2011 11:22am Paradise Reyes Discharged [facility] Physical Therapy June 03, 2011 11:41am July 01, 2011 7:36am Luis Copeland i Registered Clinical [facility] Laboratory May 29, 2011 6:58am Paradise Reyes Departed Emergency [facility] Emergency Department March 17, 2011 7:26pm March 17, 2011 8:38pm Registered Clinical [facility] March 13, 2011 6:56am Paradise Reyes Departed Emergency [facility] Emergency Department February 16, 2011 10:15am February 16, 2011 10:53am Registered Clinical [facility] February 16, 2011 9:54am Wes Zarate Departed Emergency [facility] Emergency Department February 16, 2011 12:13am February 16, 2011 1:04am Registered [facility] Laboratory February 13, 2011 6:59am Paradise Reyes Registered [facility] Laboratory January 27, 2011 2:07pm Sugar Lacy Registered [facility] Laboratory October 03, 2010 7:53am Paradise Reyes Departed Emergency [facility] Emergency Department June 27, 2010 7:54pm June 27, 2010 9:07pm Registered [facility] Laboratory June 27, 2010 6:52am Paradise Reyes Registered [facility] Laboratory April 25, 2010 7:47am Paradise Reyes Registered [facility] Laboratory February 26, 2010 9:34am Paradise Reyes Registered [facility] Laboratory December 27, 2009 7:16am Paradise Reyes Admitted [facility] Laboratory November 22, 2009 11:54am November 22, 2009 11:59pm Sugar Lacy Departed [facility] Outpatient Conversion October 07, 2009 8:16am October 07, 2009 11:59pm Paradise Reyes Departed [facility] Outpatient Conversion September 06, 2009 1:05pm September 06, 2009 11:59pm Luis Copeland i Departed [facility] Laboratory September 03, 2009 10:45am September 03, 2009 11:59pm Paradise Reyes Departed [facility] Outpatient Conversion July 26, 2009 7:36am July 26, 2009 11:59pm Sugar Lacy Departed Emergency [facility] Emergency Department July 06, 2009 11:00pm July 06, 2009 11:42pm Wes Zarate Departed [facility] Outpatient Conversion May 01, 2009 8:23am May 01, 2009 11:59pm Sugar Lacy Departed [facility] Outpatient Conversion March 27, 2009 12:00am March 27, 2009 Paradise Reyes Departed [facility] Outpatient Conversion January 23, 2009 12:00am January 23, 2009 Sugar Lacy Departed Emergency [facility] Emergency Department December 02, 2008 12:00am December 02, 2008 Departed Clinical [facility] Outpatient Conversion October 22, 2008 12:00am October 22, 2008 Paradise Reyes Departed Emergency [facility] Emergency Department October 12, 2008 12:00am October 12, 2008 Departed Referred [facility] Referred Lab September 09, 2008 12:00am September 09, 2008 Bettie Shirley Departed [facility] Laboratory July 20, 2008 12:00am July 20, 2008 Paradise Reyes Departed [facility] Laboratory July 06, 2008 12:00am July 06, 2008 Paradise Reyes Departed [facility] Outpatient Conversion February 28, 2008 12:00am February 28, 2008 Paradise Reyes Departed [facility] Outpatient Conversion December 01, 2007 12:00am December 01, 2007 Sugar Lacy Departed Emergency [facility] Emergency Department November 29, 2007 12:00am November 29, 2007 Departed Referred [facility] Referred Lab September 30, 2007 12:00am September 30, 2007 Benson Khan Departed Referred [facility] Referred Lab February 07, 2007 12:00am February 07, 2007 Benson Khan Departed Referred [facility] Referred Lab August 19, 2006 12:00am August 19, 2006 Ryan Gonzalez Departed Referred [facility] Referred Lab June 30, 2006 12:00am June 30, 2006 Sugar Lacy Departed [facility] Outpatient Conversion June 10, 2006 12:00am June 10, 2006 Sugar Lacy Departed Referred [facility] Referred Lab April 01, 2006 12:00am April 01, 2006 Sugar Lacy Departed [facility] Outpatient Conversion March 24, 2006 12:00am March 24, 2006 Sugar Lacy Departed Emergency [facility] Intermediate [facility] March 20, 2005 12:00am March 20, 2005 Departed Emergency [facility] Emergency Department August 31, 2003 12:00am August 31, 2003 Departed Emergency [facility] Emergency Department August 23, 2003 12:00am August 23, 2003 Departed Emergency [facility] June 10, 2001 12:00am June 10, 2001 Departed Emergency [facility] Emergency Department October 09, 1999 12:00am October 09, 1999 Departed Clinical [facility] April 30, 1994:00am April 30, 1994 Providers, Conversion Departed Physician/Pr ovider Office Visit [facility] Addiction Mgmt CONV Misc Comp Pain location Gloria Miguel Functional Status Query Response Date Recorded Comment Living Situation With Family February 10, 2019 9:35am Immunizations No known immunizations. Payers Payer Name Policy Type Covered Green Party Covered Green Party Id Relationship Subscriber Subscriber Id [place] Medicaid LYNNE PREGENT [id number] Self/Same as Patient LYNNE PREGENT [id number] SELF PAY Personal LYNNE PREGENT Self/Same as Patient LYNNE PREGENT [place] MEDICAID (DO NOT USE) Medicaid LYNNE PREGENT [id number] Self/Same as Patient LYNNE PREGENT [id number] Plan of Care No Known Plan of Care Information Social History Query Response Date Recorded Comment Alcohol Use Yes February 10, 2019 9:35am Smoking Status Never smoker February 10, 2019 9:35am alcohol intake frequency a few times a month February 10, 2019 9:35am substance use type does not use February 10, 2019 9:35 am Query Response Start Date Stop Date Smoking Status Never smoker Vital Signs Vital Reading Result Reference Range Collection Date/Time Height 5 ft 2 in February 10 8:43am Weight 104.326 kg February 10 8:43am Temperature 97.5 F 97.6 F-99.6 F February 10 019 8:43am Pulse 79 BPM 60-100 February 10 8:43am Respiration 20 RPM 12-24 February 10 8:43am Pulse Oximetry 100 % 95-100 February 10, 2019 8:43am Blood Pressure Systolic 131 100-140 Dece mb2018 8:43am Blood Pressure Diastolic 62 50-85 Dec emb2018 8:43am Body Mass Index 42.0 February 10, 2019 8:43am
--- OUTSIDE RECORDS SUMMARY | 2023-03-30 02:34 | XMS_ITS | Continuity of Care Document ---
Author Name [facility] Address [address] [place] [address] Organization [facility] Address [address] [place] [address] Care Team Providers Care Bank Appraiser Name Role Phone Marva Hitchcock Primary Care Physician Unava ilable Allergies, Adverse Reactions, Alerts No known allergies. Medications Active Medications Medication Dose Units Route Sig Qty Days Start Date St atus Albuterol Sulfate [Proair Hfa] INHALATION October 18, 2018 Activ e Drospirenone-Ethinyl Estradiol TAB October 18, 2018 Active Valacyclovir July 31 8 Active Levothyroxine 175 MCG DAILY July 31 18 Active Discontinued Medications Medication Dose Units Route [...] February 24, 2017 Headache February 07, 2015 Left sided abdominal pain Active Inactive/Resolved Problems Medical Problem Onset Date Status Myalgia Inactive Irregular menstrual cycle Inacti ve Acute viral syndrome Inactive Leukorrhea Inactive Inactive Genital lesion, female Inactive Pain in rib Inactive Lipoma of chest wall Inactive Procedures Procedure Date Status US Transvaginal Non-OB October 18, 2018 active Group A Streptococcus Screen (HUI) January 17, [...] No results entered January 17, 2018 9:45am Chief Complaint and Reason for Visit Encounter Admit Date Chief Complaint Reason for V isit Departed Emergency October 18, 2018 5:08pm ABD COMP Hospital Discharge Instructions Additional Discharge Instructions We had discussed different things that could be causing your persistent left-sided pain. Ovarian cyst, irritable bowel, musculoskeletal are all toward the top of the list particularly as it is noted that you have a family history of ovarian cysts and diverticulitis. 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 The plan that we agreed on is that he will have an ultrasound tomorrow to check the pelvic area. If this shows a problem such as cysts then I would advise follow-up with your [facility] doctor. If this does not identify a likely source of your symptoms then I would suggest that you follow-up with your primary doctor. You would need to be sure to have the same discussion that you did with me concerning frequent diarrhea and family history of bowel problems. We discussed many different things that can cause abdominal pain and in your case I do not think that there is any emergent condition which would require hospitalization, urgent surgery, or antibiotics. No Instructions/Education [facility] Hospital Discharge Medications Medication Dose Units Route Sig Qty Days Order Date Status Ins tructions Albuterol Sulfate INHALATION September Active Drospirenone-E thinyl Estradiol TAB October 18, 2018 Active Valacyclovir Jul Active Levothyroxine 175 MCG DAILY Ju 2017 Active July 31, 2017 Discontinue d Metronidazole 1 appful VAGINALLY DAILY 70 5 November 17, 2017 Discontinue d Encounters Encounter Facility Location Admit/Visit Date Discharge/Departure Date Attending Provider Departed Emergency [facility] Emergency Department October 18, 2018 5:08pm October 18, 2018 7:28pm Departed Emergency [facility] Urgent [facility] September 07, 2018 12:04pm September 07, 2018 12:59pm Departed Referred [facility] OBGYN April 12, 2018 2:59pm April 12, 2018 3:00pm Dada Rodriguez Departed Physician/P josh Office Visit [facility] April 12, 2018 12:00am April 12, 2018 Medyonathan, Gloria Departed Emergency [facility] March 22, 2018 1:50pm March 22, 2018 2:13pm Departed Emergency [facility] January 17, 2018 9:29am January 17, 2018 10:03am Departed Emergency [facility] January 14, 2018 5:14pm January 14, 2018 6:45pm Departed Emergency [facility] November 17, 2017 10:29am November 17, 2017 11:26am Functional Status Query Response Date Recorded Comment Living Situation Home With Spouse October 18, 2018 5:22pm Immunizations No known immunizations. Payers Payer Name Policy Type Covered Democrat Covered Democrat Id Relationship Subscriber Subscriber Id [place] Medicaid LYNNE PREGENT [id number] Self/Same as Patient LYNNE PREGENT [id number] SELF PAY Personal LYNNE PREGENT Self/Same as Patient LYNNE PREGENT [place] MED[place] (DO NOT USE) Medicaid LYNNE PREGENT [id number] Self/Same as Patient LYNNE PREGENT [id number] Plan of Care No Known Plan of Care Information Social History No known social history. Vital Signs Vital Reading Result Reference Range Collection Date/Time Height 5 ft 3 in September 07, 2018 1 2:43pm Weight 99.79 kg October 18, 2018 5:17pm Temperature 98.3 F 97.6 F-99.6 F October 18 9 5:17pm Pulse 92 BPM 60-100 October 18, 2018 5:17pm Respiration 18 RPM 12-24 October 18, 2018 5:17pm Pulse Oximetry 98 % 95-100 October 18 5:17pm Blood Pressure Systolic 119 100-[address] 2018 5:17pm Blood Pressure Diastolic 74 50-85 Sep ust 2018 5:17pm Body Mass Index n/a
--- OUTSIDE RECORDS SUMMARY | 2023-03-30 02:34 | XMS_ITS | Continuity of Care Document ---
Author Name [facility] Address [address] [place] [address] Organization [facility] Address [address] [place] [address] Care Team Providers Care Freight Traffic Consultant Name Role Phone Carlos Nuñez Primary Care [...] 2017 11:40am Negative Test Performed by: [place] [address] Analyzer Sales: Sina Trejo MD , Ph D Rubella IgG Antibody January 19, 2017 11:40am Positive New methodology in use 06/08/16. Positive for IgG antibodies to Rubella virus. Test Performed by: [place] [address] Analyzer Sales: Sina Trejo MD , Ph D Varicella-Zoster IgG Antibody January 19, 2017 11:40am Positive Presence of detectable Varicella Zoster virus IgG antibodies. Test Performed by: [place] [address] Analyzer Sales: Sina Trejo MD , Ph D Advance Directives Advance Directive Response Recorded Date/ Time Do we [place] a copy [place] [facility] No January 19, 2017 10:06am Does patient have an Advanced Directive? No December 27, 2009 7:16am Pt has a Living Will? No November 7:16am Pt has a Power of Sales Management Trainee? No Octo 2009 7:16am Chief Complaint and [...] January 19, 2017 10:09am Carlos Nuñez Departed [facility] January 19, 2017 10:01am January 19, 2017 10:02am Sridevi Perez Functional Status No known functional status. Immunizations No known immunizations. Payers Payer Name Policy Type Covered Libertarian Covered Libertarian Id Relationship Subscriber Subscriber Id MEDICAID [facility] Medicaid SELF PAY Personal [place] MED[place] (DO NOT USE) Medicaid LYNNE PREGENT [id number] Self/Same as Patient LYNNE PREGENT [id number] Plan of Care No Known Plan of Care Information Social History No known social history. Vital Signs No known vital signs results.
--- OUTSIDE RECORDS SUMMARY | 2023-03-30 02:34 | XMS_ITS | Continuity of Care Document ---
Author Name [facility] Address [address] [place] [address] Organization [facility] Address [address] [place] [address] Care Team Providers Care Accounting System Expert Name Role Phone Carlos Nuñez Primary Care [...] 2017 11:40am Negative Test Performed by: [place] [address] Ct Scan Technologist: Sina Trejo MD , Ph D Rubella IgG Antibody January 19, 2017 11:40am Positive New methodology in use 06/08/16. Positive for IgG antibodies to Rubella virus. Test Performed by: [place] [address] Ct Scan Technologist: Sina Trejo MD , Ph D Varicella-Zoster IgG Antibody January 19, 2017 11:40am Positive Presence of detectable Varicella Zoster virus IgG antibodies. Test Performed by: [place] [address] Ct Scan Technologist: Sina Trejo MD , Ph D Advance Directives Advance Directive Response Recorded Date/ Time Do we have a copy [place] here [place] [facility] No January 19, 2017 10:06am Does patient have an Advanced Directive? No December 27, 2009 7:16am Pt has a Living Will? No November 7:16am Pt has a Power of Television Announcer? No Octo 2009 7:16am Chief Complaint and Reason for Visit Encounter Admit Date Chief Complaint Reason for V isit Departed Clinical January 19, 2017 10:08am Lab Hospital Discharge Instructions No known hospital discharge instructions. Encounters Encounter Facility Location Admit/Visit Date Discharge/Departure Date Attending Provider Departed Clinical [facility] February 18, 2017 9:58am February 18, 2017 9:59am Carlos Nuñez Departed Clinical [facility] January 19, 2017 10:08am January 19, 2017 10:09am Carlos Nuñez Departed [facility] January 19, 2017 10:01am January 19, 2017 10:02am Sridevi Perez Functional Status No known functional status. Immunizations No known immunizations. Payers Payer Name Policy Type Covered Democrat Covered Democrat Id Relationship Subscriber Subscriber Id MEDICAID [facility] Medicaid SELF PAY Personal [place] (DO NOT USE) Medicaid LYNNE PREGENT [id number] Self/Same as Patient LYNEN PREGENT [id number] Plan of Care No Known Plan of Care Information Social History No known social history. Vital Signs No known vital signs results.
--- OUTSIDE RECORDS SUMMARY | 2023-03-30 02:34 | XMS_ITS | Continuity of Care Document ---
Author Name [facility] Address [address] [place] [address] Organization [facility] Address [address] [place] [address] Care Team Providers Care Size Worker Name Role Phone Carlos Nuñez Primary Care [...] 2017 11:40am Negative Test Performed by: [place] [address] Urban And Regional Planner: Sina Trejo MD , Ph D Rubella IgG Antibody January 19, 2017 11:40am Positive New methodology in use 06/08/16. Positive for IgG antibodies to Rubella virus. Test Performed by: [place] [address] Urban And Regional Planner: Sina Trejo MD , Ph D Varicella-Zoster IgG Antibody January 19, 2017 11:40am Positive Presence of detectable Varicella Zoster virus IgG antibodies. Test Performed by: [place] [address] Urban And Regional Planner: Sina Trejo MD , Ph D Advance Directives Advance Directive Response Recorded Date/ Time Do we have a copy on file here at [facility]? No January 19, 2017 10:06am Does patient have an Advanced Directive? No December 27, 2009 7:16am Pt has a Living Will? No November 7:16am Pt has a Power of Account Auditor? No Octo 2009 7:16am Chief Complaint and Reason for Visit Encounter Admit Date Chief Complaint Reason for V isit Departed Clinical February 18, 2017 9:58am Lab Hospital Discharge Instructions No known hospital discharge instructions. Encounters Encounter Facility Location Admit/Visit Date Discharge/Departure Date Attending Provider Departed [facility] February 18, 2017 9:58am February 18, 2017 9:59am Carlos Nuñez Departed [facility] January 19, 2017 10:08am January 19, 2017 10:09am Carlos Nuñez Departed [facility] January 19, 2017 10:01am January 19, 2017 10:02am Sridevi Perez Functional Status No known functional status. Immunizations No known immunizations. Payers Payer Name Policy Type Covered Green Party Covered Green Party Id Relationship Subscriber Subscriber Id SELF PAY Personal [place]DO [place] USE[place] Medicaid LYNNE PREGENT [id number] Self/Same as Patient LYNNE PREGENT [id number] Plan of Care No Known Plan of Care Information Social History No known social history. Vital Signs No known vital signs results.
--- OUTSIDE RECORDS SUMMARY | 2023-03-30 02:34 | XMS_ITS | Continuity of Care Document ---
Author Name [facility] Address [address] [place] [address] Organization [facility] Address [address] [place] [address] Care Team Providers Care Garment Manufacturing Supervisor Name Role Phone Carlos Nuñez Primary [...] 2017 11:40am Negative Test Performed by: [place] [address] Shoe Singer: Sina Trejo MD , Ph D Rubella IgG Antibody January 19, 2017 11:40am Positive New methodology in use 06/08/16. Positive for IgG antibodies to Rubella virus. Test Performed by: [place] [address] Shoe Singer: Sina Trejo MD , Ph D Varicella-Zoster IgG Antibody January 19, 2017 11:40am Positive Presence of detectable Varicella Zoster virus IgG antibodies. Test Performed by: [place] [address] Shoe Singer: Sina Trejo MD , Ph D Advance Directives Advance Directive Response Recorded Date/ Time Do we have a copy on file here at [facility]? No January 19, 2017 10:06am Does patient have an Advanced Directive? No December 27, 2009 7:16am Pt has a Living Will? No November 7:16am Pt has a Power of Engineering Secretary? No Octo 2009 7:16am Chief Complaint and Reason for Visit Encounter Admit Date Chief Complaint Reason for V isit Departed Clinical January 19, 2017 10:08am Lab Hospital Discharge Instructions No known hospital discharge instructions. Encounters Encounter Facility Location Admit/Visit Date Discharge/Departure Date Attending Provider Departed Clinical [facility] February 18, 2017 9:58am February 18, 2017 9:59am Carlos Nuñez Departed Clinical [facility] January 19, 2017 10:08am January 19, 2017 10:09am Carlos Nuñez Departed [facility] January 19, 2017 10:01am January 19, 2017 10:02am Sridevi Perez Functional Status No known functional status. Immunizations No known immunizations. Payers Payer Name Policy Type Covered Green Party Covered Green Party Id Relationship Subscriber Subscriber Id MEDICAID [facility] Medicaid SELF PAY Personal [place]DO [place] USE[place] Medicaid LYNNE PREGENT [id number] Self/Same as Patient LYNNE PREGENT [id number] Plan of Care No Known Plan of Care Information Social History No known social history. Vital Signs No known vital signs results.
--- OUTSIDE RECORDS SUMMARY | 2023-03-30 02:34 | XMS_ITS | Continuity of Care Document ---
Author Name [facility] Address [address] [place] [address] Organization [facility] Address [address] [place] [address] Care Team Providers Care Sagger Filler Name Role Phone Carlos Nuñez Primary Care [...] a copy on file here at [facility]? No January 19, 2017 10:06am Does patient have an Advanced Directive? No December 27, 2009 7:16am Pt has a Living Will? No November 7:16am Pt has a Power of Landman? No Octo 2009 7:16am Chief Complaint and Reason for Visit Encounter Admit Date Chief Complaint Reason for V isit Departed Clinical January 19, 2017 10:01am Lab Hospital Discharge Instructions No known hospital discharge instructions. Encounters Encounter Facility Location Admit/Visit Date Discharge/Departure Date Attending Provider Departed Clinical [facility] January 19, 2017 10:08am January 19, 2017 10:09am Carlos Nuñez Departed Clinical [facility] January 19, 2017 10:01am January 19, 2017 10:02am Sridevi Perez Functional Status No known functional status. Immunizations No known immunizations. Payers Payer Name Policy Type Covered Democrat Covered Democrat Id Relationship Subscriber Subscriber Id SELF PAY Personal [place] (DO [place] USE) Medicaid LYNNE PREGENT [id number] Self/Same as Patient LYNNE PREGENT [id number] Plan of Care No Known Plan of Care Information Social History No known social history. Vital Signs No known vital signs results.
--- OUTSIDE RECORDS SUMMARY | 2023-03-30 02:34 | XMS_ITS | Continuity of Care Document ---
Author Name [facility] Address [address] [place] [address] Organization [facility] Address [address] [place] [address] Care Team Providers Care Control Operator Name Role Phone Carlos Nuñez Primary Care [...] 2017 11:40am Negative Test Performed by: [place] [address] Metallurgical Engineering Teacher: Sina Trejo MD , Ph D Rubella IgG Antibody January 19, 2017 11:40am Positive New methodology in use 06/08/16. Positive for IgG antibodies to Rubella virus. Test Performed by: [place] [address] Metallurgical Engineering Teacher: Sina Trejo MD , Ph D Varicella-Zoster IgG Antibody January 19, 2017 11:40am Positive Presence of detectable Varicella Zoster virus IgG antibodies. Test Performed by: [place] [address] Metallurgical Engineering Teacher: Sina Trejo MD , Ph D Advance Directives Advance Directive Response Recorded Date/ Time Do we have a copy on file here at [facility]? No January 19, 2017 10:06am Does patient have an Advanced Directive? No December 27, 2009 7:16am Pt has a Living Will? No November 7:16am Pt has a Power of Labor Economics Professor? No Octo 2009 7:16am Chief Complaint and Reason for Visit Encounter Admit Date Chief Complaint Reason for V isit Departed Clinical February 18, 2017 9:58am Lab Hospital Discharge Instructions No known hospital discharge instructions. Encounters Encounter Facility Location Admit/Visit Date Discharge/Departure Date Attending Provider Departed [facility] February 18, 2017 9:58am February 18, 2017 9:59am Carlos Nuñez Departed [facility] January 19, 2017 10:08am January 19, 2017 10:09am Carlos Nuñez Departed [facility] January 19, 2017 10:01am January 19, 2017 10:02am Sridevi Perez Functional Status No known functional status. Immunizations No known immunizations. Payers Payer Name Policy Type Covered Libertarian Covered Libertarian Id Relationship Subscriber Subscriber Id SELF PAY Personal [place]DO [place] USE[place] Medicaid LYNNE PREGENT [id number] Self/Same as Patient LYNNE PREGENT [id number] Plan of Care No Known Plan of Care Information Social History No known social history. Vital Signs No known vital signs results.
--- OUTSIDE RECORDS SUMMARY | 2023-03-30 02:34 | XMS_ITS | Continuity of Care Document ---
Author Name [facility] Address [address] [place] [address] Organization [facility] Address [address] [place] [address] Care Team Providers Care Correctional Probation Officer Name Role Phone Carlos Nuñez Primary [...] 2017 11:40am 89 mg/dL 50-500 Free Thyroxine March 18, 2017 2:25pm 1.26 ng/dL 0.78-2.19 Thyroid Stimulating Hormone (TSH) March 18, 2017 2:25pm 1.55 mlU/L 0.47-4.68 Hepatitis B Surface Antigen January 19, 2017 11:40am Negative Test Performed by: [place] [address] It Sales Executive: Sina Trejo MD , Ph D Rubella IgG Antibody January 19, 2017 11:40am Positive New methodology in use 06/08/16. Positive for IgG antibodies to Rubella virus. Test Performed by: [place] [address] It Sales Executive: Sina Trejo MD , Ph D Varicella-Zoster IgG Antibody January 19, 2017 11:40am Positive Presence of detectable Varicella Zoster virus IgG antibodies. Test Performed by: [place] [address] It Sales Executive: Sina Trejo MD , Ph D Advance Directives Advance Directive Response Recorded Date/ Time Do [place] [facility] January 19, 2017 10:06am Does patient have an Advanced Directive? No December 27, 2009 7:16am Pt has a Living Will? No November 7:16am Pt has a Power of Store Shopper? No Octo 2009 7:16am Chief Complaint and Reason for Visit Encounter Admit Date Chief Complaint Reason for V isit Departed Clinical March 18, 2017 1:55pm Lab Hospital Discharge Instructions No known hospital discharge instructions. Encounters Encounter Facility Location Admit/Visit Date Discharge/Departure Date Attending Provider Departed [facility] March 18, 2017 1:55pm March 18, 2017 1:56pm [facility] February 18, 2017 9:58am February 18, 2017 9:59am [facility] January 19, 2017 10:08am January 19, 2017 10:09am Carlos Nuñez [facility] January 19, 2017 10:01am January 19, 2017 10:02am Sridevi Perez Functional Status No known functional status. Immunizations No known immunizations. Payers Payer Name Policy Type Covered Libertarian Covered Libertarian Id Relationship Subscriber Subscriber Id [place] Medicaid SELF PAY Personal [place] MEDICA[place] (DO NOT USE) Medicaid LYNNE PREGENT [id number] Self/Same as Patient LYNNE PREGENT [id number] Plan of Care No Known Plan of Care Information Social History No known social history. Vital Signs No known vital signs results.
--- OUTSIDE RECORDS SUMMARY | 2023-03-30 02:34 | XMS_ITS | Continuity of Care Document ---
Author Name [facility] Address [address] [place] [address] Organization [facility] Address [address] [place] [address] Care Team Providers Care Rum Processing Operator Name Role Phone Carlos Nuñez Primary [...] 2017 11:40am Negative Test Performed by: [place] [address] Detacker: Sina Trejo MD , Ph D Rubella IgG Antibody January 19, 2017 11:40am Positive New methodology in use 06/08/16. Positive for IgG antibodies to Rubella virus. Test Performed by: [place] [address] Detacker: Sina Trejo MD , Ph D Varicella-Zoster IgG Antibody January 19, 2017 11:40am Positive Presence of detectable Varicella Zoster virus IgG antibodies. Test Performed by: [place] [address] Detacker: Sina Trejo MD , Ph D Advance Directives Advance Directive Response Recorded Date/ Time Do we have a copy on file here at [facility]? No January 19, 2017 10:06am Does patient have an Advanced Directive? No December 27, 2009 7:16am Pt has a Living Will? No November 7:16am Pt has a Power of Trackman? No Octo 2009 7:16am Chief Complaint and Reason for Visit Encounter Admit Date Chief Complaint Reason for V isit Departed Clinical January 19, 2017 10:01am Lab Hospital Discharge Instructions No known hospital discharge instructions. Encounters Encounter Facility Location Admit/Visit Date Discharge/Departure Date Attending Provider Departed Clinical [facility] February 18, 2017 9:58am February 18, 2017 9:59am Carlos Nuñez Departed [facility] January 19, 2017 10:08am January 19, 2017 10:09am Carlos Nuñez Departed [facility] January 19, 2017 10:01am January 19, 2017 10:02am Sridevi Perez Functional Status No known functional status. Immunizations No known immunizations. Payers Payer Name Policy Type Covered Democrat Covered Democrat Id Relationship Subscriber Subscriber Id [place] SELF PAY Personal [place]DO NOT USE[place] Medicaid LYNNE PREGENT [id number] Self/Same as Patient LYNNE PREGENT [id number] Plan of Care No Known Plan of Care Information Social History No known social history. Vital Signs No known vital signs results.
--- OUTSIDE RECORDS SUMMARY | 2023-03-30 02:34 | XMS_ITS | Continuity of Care Document ---
Author Name [facility] Address [address] [place] [address] Organization [facility] Address [address] [place] [address] Care Team Providers Care Assembler Insulator Name Role Phone Carlos Nuñez Primary Care [...] 11:40am Negative Test Performed by: [place] [address] Head Baker: Sina Trejo MD , Ph D Rubella IgG Antibody January 19, 2017 11:40am Positive New methodology in use 06/08/16. Positive for IgG antibodies to Rubella virus. Test Performed by: [place] [address] Head Baker: Sina Trejo MD , Ph D Varicella-Zoster IgG Antibody January 19, 2017 11:40am Positive Presence of detectable Varicella Zoster virus IgG antibodies. Test Performed by: [place] [address] Head Baker: Sina Trejo MD , Ph D Advance Directives Advance Directive Response Recorded Date/ Time Do we have a copy on file here at [facility]? No January 19, 2017 10:06am Does patient have an Advanced Directive? No December 27, 2009 7:16am Pt has a Living Will? No November 7:16am Pt has a Power of Driver Starting Gate? No Octo 2009 7:16am Chief Complaint and Reason for Visit Encounter Admit Date Chief Complaint Reason for V isit Departed Clinical June 09, 2017 10:06am LABS Hospital Discharge Instructions No known hospital discharge instructions. Encounters Encounter Facility Location Admit/Visit Date Discharge/Departure Date [facility], [facility] 10:06am June 09, 2017 10:07am [facility] May 12, 2017 1:35pm May 12, 2017 1:36pm [facility], [facility] 8:14am May 05, 2017 8:15am [facility] 15, 2017 10:37am April 15, 2017 10:38am [facility] March 18, 2017 1:55pm March 18, 2017 1:56pm [facility] 18, 2017 9:58am February 18, 2017 9:59am Carlos Nuñez Departed Clinical [facility] January 19, 2017 10:08am January 19, 2017 10:09am Carlos Nuñez Departed Clinical [facility] January 19, 2017 10:01am January 19, 2017 10:02am Sridevi Perez Functional Status No known functional status. Immunizations No known immunizations. Payers Payer Name Policy Type Covered Alliance Party Covered Alliance Party Id Relationship Subscriber Subscriber Id [place] Medicaid SELF PAY Personal [place] MED[place] (DO NOT USE) Medicaid LYNNE PREGENT [id number] Self/Same as Patient LYNNE PREGENT [id number] Plan of Care No Known Plan of Care Information Social History No known social history. Vital Signs No known vital signs results.
--- OUTSIDE RECORDS SUMMARY | 2023-03-30 02:34 | XMS_ITS | Continuity of Care Document ---
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, 2017 Ovarian cyst Active Headache February 07, 2015 Left sided abdominal pain Active Inactive/Resolved Problems Medical Problem Onset Date Status Myalgia Inactive Irregular menstrual cycle Inacti ve Acute viral syndrome Inactive Leukorrhea Inactive Inactive Genital lesion, female Inactive Pain in rib Inactive Lipoma of chest wall Inactive Procedures Procedure Date Status US Transvaginal Non-OB October 19, 2018 completed Group A Streptococcus Screen (HUI) January 17, [...] Reason for V isit Departed Emergency October 19, 2018 8:00am FOLLOW UP Hospital Discharge Instructions Additional Discharge Instructions You do have an ovarian cyst on the left side but it does not appear to be complicated by torsion, rupture, or other emergent findings Follow up with your GUEST SERVICES ATTENDANT Return to ED with any new or worsening symptoms Instruction/Education Provided Ovarian C yst (DC) Hospital Discharge Medications Medication Dose Units Route [...] Date Discharge/Departure Date Attending Provider Departed Emergency [facility] Emergency Department October 19, 2018 8:00am October 19, 2018 9:49am Departed Emergency [facility] Emergency Department October 18, 2018 5:08pm October 18, 2018 7:28pm Departed Emergency [facility] [place] September 07, 2018 12:04pm September 07, 2018 12:59pm Departed Referred [facility] OBGYN April 12, 2018 2:59pm April 12, 2018 3:00pm Dada Rodriguez Departed Physician/P josh Office Visit [facility] GUEST SERVICES ATTENDANT April 12, 2018 12:00am April 12, 2018 Medent, Conversion Departed Emergency [facility] [place] March 22, 2018 1:50pm March 22, 2018 2:13pm Departed Emergency [facility] January 17, 2018 9:29am January 17, 2018 10:03am Departed Emergency [facility] January 14, 2018 5:14pm January 14, 2018 6:45pm Departed Emergency [facility] November 17, 2017 10:29am November 17, 2017 11:26am Functional Status Query Response Date Recorded Comment Living Situation Home With Spouse October 18, 2018 5:22pm Immunizations No known immunizations. Payers Payer Name Policy Type Covered Libertarian Covered Libertarian Id Relationship Subscriber Subscriber Id MEDICAID [facility] Medicaid LYNNE PREGENT [id number] Self/Same as Patient LYNNE PREGENT [id number] SELF PAY Personal LYNNE PREGENT Self/Same as Patient LYNNE PREGENT [place] (DO NOT USE) Medicaid LYNNE PREGENT [id number] Self/Same as Patient LYNNE PREGENT [id number] Plan of Care Instructions Ovarian Cyst (DC) Social History No known social history. Vital Signs Vital Reading Result Reference Range Collection Date/Time Height 5 ft 3 in September 07, 2018 1 2:43pm Weight 40.7 kg October 19, 2018 8:14am Temperature 98.3 F 97.6 F-99.6 F October 18 9 5:17pm Pulse 92 BPM 60-100 October 18, 2018 5:17pm Respiration 18 RPM 12-24 October 18, 2018 5:17pm Pulse Oximetry 98 % 95-100 October 18 5:17pm [facility] 119 100-[facility] 5:17[facility] Blood Pressure Diastolic 74 50-85 Sep [facility] 2018 5:17pm Body Mass Index n/a
--- OUTSIDE RECORDS SUMMARY | 2023-03-30 02:34 | XMS_ITS | Continuity of Care Document ---
Author Name Unknown Address [address] [place] [address] Phone [facility] Address [address] [place] [address] Phone Care Team Providers Care Call Center Support Consultant Name Role Phone Marva Hitchcock Primary Care Provider Marva Crews Primary Care Provider Marva Crews Primary Care Provider Marva Crews Primary Care Provider Marva Crews Primary Care Provider Dada Guerra Attending Provider Unavailable Marva Hitchcock Primary Care Provider Nabila deluca Allergies, Adverse Reactions, Alerts No known allergies. 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, 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 Headache February 07, 2015 Active Pain in rib Active Lipoma of chest wall Active Inactive/Resolved Problems Medical Problem Onset Date Status Myalgia Resolved Irregular menstrual cycle Resolv ed Acute viral syndrome Resolved Leukorrhea Resolved Resolved Genital lesion, female Resolved Procedures Procedure Date Performed Status Urine Culture November 17, 2017 completed Gram Stain November 17, 2017 completed Genital Culture November 17, 2017 completed Group A Streptococcus Screen (HUI) December completed Urine Culture January 14, 2018 completed Relevant Diagnostic Tests and/or Laboratory Data Laboratory Results Test Date/Time Result Interpretation Reference Range Result Comment Performing Site Urine RBC November 17, 2017 11:25am None seen /hpf MAIN LAB, [address] [place] [address] Urine RBC January 14, 2018 7:28pm 0-2 /hpf MAIN LAB, [address] [place] [address] Urine WBC November 17, 2017 11:25am 10-20 /hpf MAIN LAB, [address] [place] [address] Urine WBC January 14, 2018 7:28pm 10-20 /hpf MAIN LAB, [address] [place] [address] Urine Squamous Epithelial Cells November 17, 2017 11:25am 3+ /hpf MAIN LAB, [address] [place] [address] Urine Squamous Epithelial Cells January 14, 2018 7:28pm 2+ /hpf MAIN LAB, [address] [place] [address]58 Urine Bacteria November 17, 2017 11:25am 1+ /hpf NONE SEEN MAIN LAB, [address] [place] [address] 19284 Urine Bacteria January 14, 2018 7:28pm 1+ /hpf NONE SEEN MAIN LAB, [address] [place] [address] Urine Mucus January 14, 2018 7:28pm Present MAIN LAB, [address] [place] [address] Urine Culture Done November 17, 2017 11:25am Yes URINE SPECIMEN CULTURED MAIN LAB, [address] [place] [address] 22922 Urine Culture Done January 14, 2018 7:28pm Yes URINE SPECIMEN CULTURED MAIN LAB, [address] [place] [id number] Microbiology Results Procedure Source Result Collection Date/Time Result Date/Time Result Comment Performing Site Urine Culture Ur,Clean Catch November 17, 2017 12:14pm November 19, 2017 7:47am MAIN LAB, [address] [place] [id number] Urine Culture Ur,Clean Catch January 14, 2018 10:00pm January 16, 2018 8:04am MAIN LAB, [address] [facility] [address] Group A Streptococcus Screen (HUI) Throat January 17, 2018 9:45am January 19, 2018 10:36am MAIN LAB, [address] [facility] [address] Gram Stain Vaginal November 17, 2017 11:25am November 17, 2017 12:31pm MAIN LAB, [address] [facility] [address] Genital Culture Vaginal November 17, 2017 11:25am November 17, 2017 12:31pm MAIN LAB, [address] [facility] [address] Encounters Encounter Location(s) Arrival/Admit Date Discharge/Depart Date Provider([facility]) [facility] November 17, 2017 10:29am November 17, 2017 11:26am null [facility] January 14, 2018 5:14pm January 14, 2018 6:45pm null [facility] January 17, 2018 9:29am January 17, 2018 10:03am null [facility] March 22, 2018 1:50pm March 22, 2018 2:13pm null Departed Physician/Prov ider [facility] FOOTWEAR SALES LEAD[facility] April 12, 2018 12:00am April 12, 2018 Conversion Medent [facility] April 12, 2018 2:59pm April 12, 2018 3:00pm Dada Rodriguez MD [facility] September 07, 2018 12:04pm September 07, 2018 12:59pm null Assessments No Assessments Information Available Family History Relationship Condition Age at Onset Recorded Date/T hemanth Parent Disorder of thyroid Unknown Parent Glaucoma Unknown Not Specified No current problems or disability Unknow n Functional Status Observation Response Date Recorded Living Situation With Family September 07, 2018 12:43pm Living Situation Home November 17, 2017 10:41am Living Situation Home March 22 019 1:56pm Living Situation Home January 17, 2018 9:33am Living Situation With Family January 14, 2018 5:51pm With Spouse January 14 018 5:51pm Goals No Goals Information Available Mental Status No Mental Status Information Available Medical Equipment No Medical Equipment Information available Insurance Providers Guarantor LYNNE PEDRAZA Address [address] [facility] [address] Contact Info. Home Phone: Payer Policy Id Coverage Id Subscriber's Name Subscriber Id Effective Date Expiration Date [place] [id number] LYNNE A PREGENT [id number] SELF PAY Self N/A [place] MED[place] (DO NOT USE) [id number] LYNNE A PREGENT [id number] 2015 Plan of Treatment Future Tests Future scheduled test information is unavailable Pending Tests Pending diagnostic test information is unavailable Future Visits Future appointment information is unavailable Referrals to Other Providers Reason for Referral Referral Start Date Provider Provider Contact Information Provider Address [employer] [place] Work Phone: [address] [address] Future Procedures Future procedure information is unavailable Future Medications Future medication information is unavailable Patient Instructions Patient instructions are unavailable Social History Assigned Sex Female Vital Signs Vital Reading Result Reference Range Collection Date/Time Weight 104.32 kg November 17, 2017 10:41am Body Temperature 98.6 [degF] 97.6-99.6 October 302017 10:41am Heart Rate 88 /min 60-100 November 17, 2017 10:41am Respiratory rate 16 /min 12-24 October 302017 10:41am BP Systolic 110 mm[Hg] 100-140 November 17, 2017 10:41am BP Diastolic 70 mm[Hg] 50-85 November 17, 2017 10:41am Height 62.25 [in_i] January 14, 2018 5:51pm Weight 104.32 kg January 14, 2018 5:51pm Body Temperature 98.8 [degF] 97.6-99.6 January 142017 5:51pm Heart Rate 84 /min 60-100 January 14, 2018 6:44pm Respiratory rate 16 /min 12-24 January 142017 5:51pm Oxygen saturation by Pulse oximetry 97 % 95-100 January 14, 2018 5:51pm BP Systolic 106 mm[Hg] 100-140 January 14, 2018 5:51pm BP Diastolic 86 mm[Hg] 50-85 January 14, 2018 5:51pm Height 62 [in_i] January 17, 2018 9:33am Weight 104.32 kg January 17, 2018 9:33am Body Temperature 97.8 [degF] 97.6-99.6 January 172017 9:33am Heart Rate 64 /min 60-100 January 17, 2018 9:33am Respiratory rate 17 /min 12-24 January 172017 9:33am Oxygen saturation by Pulse oximetry 99 % 95-100 January 17, 2018 9:33am BP Systolic 110 mm[Hg] 100-140 January 17, 2018 9:33am BP Diastolic 70 mm[Hg] 50-85 January 17, 2018 9:33am Height 62 [in_i] March 22 1:56pm Weight 104.32 kg March 22 1:56pm Body Temperature 97.8 [degF] 97.6-99.6 March 1:56pm Heart Rate 72 /min 60-100 March 22 019 1:56pm Respiratory rate 16 /min -March 1:56pm Oxygen saturation by Pulse oximetry 99 % 95-100 March 22, 2018 1 :56pm BP Systolic 120 mm[Hg] 100-140 March 22 1:56pm BP Diastolic 70 mm[Hg] 50-85 March 22 019 1:56pm Height 63 [in_i] April 12, 2018 1:25pm Weight 109.31 kg April 12, 2018 1:25pm BP Systolic 126 mm[Hg] 100-140 April 12, 2018 1:25pm BP Diastolic 80 mm[Hg] 50-85 April 12, 2018 1:25pm Height 63 [in_i] September 07, 2018 12:43pm Weight 104.32 kg September 07, 2018 12:43pm Body Temperature 98.3 [degF] 97.6-99.6 September 07, 2018 12:43pm Heart Rate 74 /min 60-100 September 07, 2018 12:43pm Respiratory rate 15 /min -September 07, 2018 12:43pm Oxygen saturation by Pulse oximetry 98 % 95-100 September 07, 2018 12:4 3pm BP Systolic 124 mm[Hg] 100-140 September 07, 2018 12:43pm BP Diastolic 84 mm[Hg] 50-85 September 07, 2018 12:43pm Hospital Discharge Instructions Additional Instructions Cultures were sent to the lab, you will be contacted when culture results are available with an update plan of care
--- OUTSIDE RECORDS SUMMARY | 2023-03-30 02:34 | XMS_ITS | Continuity of Care Document ---
Author Name [facility] Address [address] [place] [address] Organization [facility] Address [address] [place] [address] Care Team Providers Care Rubber Chemist Name Role Phone Carlos Nuñez Primary Care [...] 2017 9:25am 118 mg/dL 50-500 Free Thyroxine May 12, 2017 1:42pm 1.06 ng/dL 0.78-2.19 Thyroid Stimulating Hormone (TSH) May 12, 2017 1:42pm 0.905 mlU/L 0.47-4.68 Hepatitis B Surface Antigen January 19, 2017 11:40am Negative Test Performed by: [place] [address] Wheel Truing Machine Tender: Sina Trejo MD , Ph D Rubella IgG Antibody January 19, 2017 11:40am Positive New methodology in use 06/08/16. Positive for IgG antibodies to Rubella virus. Test Performed by: [place] [address] Wheel Truing Machine Tender: Sina Trejo MD , Ph D Varicella-Zoster IgG Antibody January 19, 2017 11:40am Positive Presence of detectable Varicella Zoster virus IgG antibodies. Test Performed by: [place] [address] Wheel Truing Machine Tender: Sina Trejo MD , Ph D Advance Directives Advance Directive Response Recorded Date/ Time Do we have a copy on file here at [facility]? No January 19, 2017 10:06am Does patient have an Advanced Directive? No December 27, 2009 7:16am Pt has a Living Will? No November 7:16am Pt has a Power of Gi Tech? No Octo 2009 7:16am Chief Complaint and Reason for Visit Encounter Admit Date Chief Complaint Reason for V isit Departed Clinical May 12, 2017 1:35pm Lab Hospital Discharge Instructions No known hospital discharge instructions. Encounters Encounter Facility Location Admit/Visit Date Discharge/Departure Date Attending Provider Departed [facility] May 12, 2017 1:35pm May 12, 2017 1:36pm Carlos Nuñez Departed [facility] May 05, 2017 8:14am May 05, 2017 8:15am Maral Deal Departed Clinical [facility] April 15, 2017 10:37am April 15, 2017 10:38am [facility] March 18, 2017 1:55pm March 18, 2017 1:56pm [facility] 18, 2017 9:58am February 18, 2017 9:59am [facility] January 19, 2017 10:08am January 19, 2017 10:09am Carlos Nuñez Departed Clinical [facility] January 19, 2017 10:01am January 19, 2017 10:02am Sridevi Perez Functional Status No known functional status. Immunizations No known immunizations. Payers Payer Name Policy Type Covered Democrat Covered Democrat Id Relationship Subscriber Subscriber Id [place] SELF PAY Personal [place]DO NOT USE[place] Medicaid LYNNE PREGENT [id number] Self/Same as Patient LYNNE PREGENT [id number] Plan of Care No Known Plan of Care Information Social History No known social history. Vital Signs No known vital signs results.
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
--- OUTSIDE RECORDS SUMMARY | 2023-03-30 02:35 | XMS_ITS | Continuity of Care Document ---
Author Name Unknown Address [address] [place] [address] Phone [facility] Address [address] [place] [address] Phone Support Name Relationship Address Phone ALESSANDRA CHAVIRA Grandparent GRANDMOTHER Medent, Gloria Attending Provider Unknown Maureen vailable SUGAR LACY Family Provider Unknown Unavaila ble Jasmyne Jaramillo Emergency Provider Unknown Unava ilCollin Thrasher Emergency Provider Unknown Unavai Jack Parsons Emergency Provider [facility] [place] [address] Namita Hull Emergency Provider [facility] [place] [address] Isaías Melgoza Emergency Provider [facility] [place] [address] Aimee Araujo Emergency Provider Unknown Maureen vailable Wes Zarate Emergency Provider [facility] [address] Referral, Self Referring Provider Unknown Unavail able Lucrecia Hong Emergency Provider Unknown Unavai Bradley Regan Emergency Provider Unknown Unavai Lobo Segura Emergency Provider [facility] [place] [address] Tawana Mendez Emergency Provider [facility] [address] Elena Zelaya Attending Provider [facility] [place] [address] Manny Rubio Attending Provider [facility] [place] [address] Lucrecia Ann Emergency [place] [address] Tracey Williamson Attending Provider [facility] [place] [address] Isabella Alanis Attending Provider [facility] [place] [address] Juan Torres Emergency Provider [facility] [place] [address] Rina Mas Emergency Provider [facility] [place] [address] Jelena Lake Emergency Provider [facility] [place] [address] Khai Fishman Emergency Provider [facility] [place] [address] Jayson Pires Emergency Provider [facility] [place] [address] Lamar Garcia Emergency Provider [facility] [place] [address] Care Team Providers Care Shopper Marketing Manager Name Role Phone Providers, Conversion Attending Provider Unavail able Sugar Lacy Primary Care Provider Sugar Lacy Attending Provider [phone] Ryan Gonzalez Attending Provider Unavailable Benson Khan Attending Provider [phone] Paradise Reyes Attending Provider [phone] Bettie Shirley Attending Provider Sugar Lacy Admit Provider Wes Zarate Attending Provider Referral, Self Admit Provider Unavailable Paradise Reyes Admit Provider Luis Maldonado Admit Provider [phone] Luis Maldonado Attending Provider PCP, Not Given Primary Care Provider Chu Mandujano Primary Care Provider Unavail able Carlos Nuñez Attending Provider [phone] PCP, of Choice Primary Care Provider Ruslan Gallo Attending Provider [phone] Carlos Nuñez Primary Care Provider Sridevi Perez Attending Provider [phone] Maral Deal Attending Provider Marva Hitchcock Primary Care Provider Dada Rodriguez Attending Provider Allergies, Adverse Reactions, Alerts No known allergies. Medications Medication Status Dose Units Route Sig Qty Days Start Date End Date Instructions Albuterol Sulfate Active October 18, 2018 5:21pm Drospirenone-E thinyl Estradiol Active TAB TABLET October 18, 2018 5:21pm Acyclovir Active 400 MG ORAL THREE TIMES A DAY February 10, 2019 9:30am Valacyclovir Active TABLET July 31, 2017 10:36am Levothyroxine Active 175 MCG TABLET DAILY Jul 10:36am Discontin ued July 31, 2017 10:36am Septemb er 2017 10:40am Metronidazole Discontin ued 1 appful DAILY 70 5 Septembe r 2017 4:11pm Septemb er 2017 12:05am Problems Active Problems Medical Problem Onset Date Status Acute vulvitis Active History of PCR DNA positive for HSV1 Active Myopia February 07, 2015 Active Open wound of forearm May 26, 2016 Active Acute upper respiratory infection of multiple si pop October 30, 2013 Active 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, 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 Headache February 07, 2015 Active Inactive/Resolved Problems Medical Problem Onset Date Status Myalgia Resolved Irregular menstrual cycle Resolv ed Ovarian cyst Resolved Acute viral syndrome Resolved Leukorrhea Resolved Resolved Genital lesion, female Resolved Left sided abdominal pain Resolv ed Pain in rib Resolved Lipoma of chest wall Resolved Procedures Procedure Date Performed Status Urine Culture completed Gram Stain completed Genital Culture completed US Transvaginal Non-OB October 19, 2018 complet ed Group A Streptococcus Screen (HUI) completed Urine Culture completed US Pelvic Transvaginal Panel November 23 5 completed US EXAM PELVIC COMPLETE November 23, 2014 act connor TRANSVAGINAL US NON-OB November 23, 2014 acti ve EMERGENCY DEPT VISIT November 23, 2014 active URINE TEST November 23, 2014 active URINALYSIS AUTO W/O SCOPE November 23, 2014 a ctive US Pelvic Transvaginal Panel May 27, 2014 co mpleted EMERGENCY DEPT VISIT May 27, 2014 active COMPLETE CBC W/AUTO DIFF WBC May 27, 2014 ac tive ASSAY OF UREA NITROGEN May 27, 2014 active ASSAY GLUCOSE BLOOD QUANT May 27, 2014 activ e ASSAY OF CREATININE May 27, 2014 active ELECTROLYTE PANEL May 27, 2014 active ROUTINE VENIPUNCTURE May 27, 2014 active Nasal Bones 3 vw Min March 13, 2014 complete d X-RAY EXAM OF NASAL BONES March 13, 2014 act connor N.GONORRHOEAE DNA AMP PROB February 27, 2012 a ctive CHYLMD TRACH DNA AMP PROBE February 27, 2012 a ctive Chest 2 vw November 11, 2011 completed EMERGENCY DEPT VISIT November 11, 2011 active AIRWAY INHALATION TREATMENT November 11, 2011 active CHEST X-RAY 2VW FRONTAL&LATL November 10 2 active EMERGENCY DEPT VISIT March 17, 2011 active US Pelvic Non-OB (Complete) February 16, 2011 completed Relevant Diagnostic Tests and/or Laboratory Data Laboratory Results Test Date/Time Result Interpretation Reference Range Result Comment Performing Site White Blood Count 7.05 1000/mm3 4.8-10.8 White Blood Count 8.28 1000/mm3 4.8-10.8 MAIN LAB, [address] [place] [address] White Blood Count 6.59 1000/mm3 4.8-10.8 White Blood Count 10.81 1000/mm3 4.8-10.8 MAIN LAB, [address] [place] [address] 0[address]99 White Blood Count 10.36 1000/mm3 4.8-10.8 White Blood Count 9.96 1000/mm3 4.8-10.8 Red Blood Count 4.57 M/mm3 4.20-5.40 Red Blood Count 4.63 M/mm3 4.20-5.40 Red Blood Count 4.05 M/mm3 4.20-5.40 MAIN LAB, [address] [place] [address]74 Red Blood Count 4.49 M/mm3 4.20-5.40 Red Blood Count 4.42 M/mm3 4.20-5.40 MAIN LAB, [address] [place] [address] 73656 Red Blood Count 4.66 M/mm3 4.20-5.40 Hemoglobin 13.5 g/dL 12.0-16.0 Hemoglobin 13.4 g/dL 12.0-16.0 Hemoglobin 13.3 g/dL 12.0-16.0 MAIN LAB, [address] [place] [address] 38267 Hemoglobin 13.6 g/dL 12.0-16.0 Hemoglobin 11.9 g/dL 12.0-16.0 MAIN LAB, [address] [place] [address] 44181 Hemoglobin 13.8 g/dL 12.0-16.0 Hematocrit 40.0 % 37-47 Hematocrit 40.2 % 37-47 Hematocrit 40.2 % 37-47 MAIN LAB, [address] [place] [address] 13728 Hematocrit 39.7 % 37-47 Hematocrit 38.8 % 37-47 Hematocrit 36.0 % 37-47 MAIN LAB, [address] [place] [address] 87798 Mean Corpuscular Volume 88.9 fL 81.0-99.0 MAIN LAB, [address] [place] [address] 44154 Mean Corpuscular Volume 86.8 fL 81.0-99.0 Mean Corpuscular Volume 87.5 fL 81.0-99.0 Mean Corpuscular Volume 91.0 fL 81.0-99.0 MAIN LAB, [address] [place] [address] 06403 Mean Corpuscular Volume 86.4 fL 81.0-99.0 Mean Corpuscular Volume 85.2 fL 81.0-99.0 Mean Corpuscular Hemoglobin 29.0 pg 27-31 Mean Corpuscular Hemoglobin 30.1 pg 27-31 MAIN LAB, [address] [place] [address] 90335 Mean Corpuscular Hemoglobin 29.4 pg 27-31 Mean Corpuscular Hemoglobin 29.4 pg 27-31 MAIN LAB, [facility] [address] Mean Corpuscular Hemoglobin 29.8 pg 27-31 Mean Corpuscular Hemoglobin 30.2 pg 27-31 Mean Corpuscular Hemoglobin Concent 34.0 g/dL 33-37 Mean Corpuscular Hemoglobin Concent 34.5 g/dL 33-37 Mean Corpuscular Hemoglobin Concent 33.8 g/dL 33-37 Mean Corpuscular Hemoglobin Concent 34.5 g/dL 33-37 Mean Corpuscular Hemoglobin Concent 33.1 g/dL 33-37 MAIN LAB, [address] [place] [address] 43016 Mean Corpuscular Hemoglobin Concent 33.1 g/dL 33-37 MAIN LAB, [address] [place] [address] 54863 Red Cell Distribution Width 12.3 % 11.5-14.5 MAIN LAB, [address] [place] [address] 30200 Red Cell Distribution Width 13.1 % 11.5-14.5 Red Cell Distribution Width 12.6 % 11.5-14.5 Red Cell Distribution Width 12.2 % 11.5-14.5 Red Cell Distribution Width 13.7 % 11.5-14.5 Red Cell Distribution Width 13.6 % 11.5-14.5 MAIN LAB, [address] [place] [address] 69472 Platelet Count 226 1000/mm3 140-440 Platelet Count 272 1000/mm3 140-440 Platelet Count 267 1000/mm3 140-440 MAIN LAB, [address] [place] [address] 28809 Platelet Count 269 1000/mm3 140-440 Platelet Count 281 1000/mm3 140-440 MAIN LAB, [address] [place] [address] 96720 Platelet Count 272 1000/mm3 140-440 Mean Platelet Volume 9.9 fL 7.4-10.4 Mean Platelet Volume 10.0 fL 7.4-10.4 Mean Platelet Volume 10.2 fL 7.4-10.4 Mean Platelet Volume 10.0 fL 7.4-10.4 MAIN LAB, [address] [place] [address] 47907 Mean Platelet Volume 10.4 fL 7.4-10.4 MAIN LAB, [address] [place] [address] 62195 Mean Platelet Volume 10.4 fL 7.4-10.4 Neutrophils (%) (Auto) 80.8 % 40.0-72.0 Neutrophils (%) (Auto) 56.4 % 40.0-72.0 Neutrophils (%) (Auto) 55.4 % 40.0-72.0 Neutrophils (%) (Auto) 41.6 % 40.0-72.0 Lymphocytes (%) (Auto) 36.2 % 17-45 Lymphocytes (%) (Auto) 48.7 % 17-45 Lymphocytes (%) (Auto) 33.3 % 17-45 Lymphocytes (%) (Auto) 13.0 % 17-45 Monocytes (%) (Auto) 8.4 % 3-11 Monocytes (%) (Auto) 5.6 % 3-11 Monocytes (%) (Auto) 7.6 % 3-11 Monocytes (%) (Auto) 6.1 % 3-11 Eosinophils (%) (Auto) 1.8 % 0-3 Eosinophils (%) (Auto) 0.3 % 0-3 Eosinophils (%) (Auto) 0.9 % 0-3 Eosinophils (%) (Auto) 1.6 % 0-3 Basophils (%) (Auto) 0.4 % 0-1 Basophils (%) (Auto) 0.3 % 0-1 Basophils (%) (Auto) 0.3 % 0-1 Basophils (%) (Auto) 1.3 % 0-1 Neutrophils # (Auto) 3.98 1000/mm3 1.4-6.5 Neutrophils # (Auto) 8.37 1000/mm3 1.4-6.5 Neutrophils # (Auto) 5.51 1000/mm3 1.4-6.5 Neutrophils # (Auto) 2.74 1000/mm3 1.4-6.5 Lymphocytes # (Auto) 1.35 1000/mm3 1.2-3.4 Lymphocytes # (Auto) 3.32 1000/mm3 1.2-3.4 Lymphocytes # (Auto) 3.21 1000/mm3 1.2-3.4 Lymphocytes # (Auto) 2.55 1000/mm3 1.2-3.4 Monocytes # (Auto) 0.43 1000/mm3 0.0-0.8 Monocytes # (Auto) 0.50 1000/mm3 0.0-0.8 Monocytes # (Auto) 0.84 1000/mm3 0.0-0.8 Monocytes # (Auto) 0.58 1000/mm3 0.0-0.8 Eosinophils # (Auto) 0.12 1000/mm3 0.0-0.7 Eosinophils # (Auto) 0.16 1000/mm3 0.0-0.7 Eosinophils # (Auto) 0.03 1000/mm3 0.0-0.7 Eosinophils # (Auto) 0.06 1000/mm3 0.0-0.7 Basophils # (Auto) 0.03 1000/mm3 0.0-0.1 Basophils # (Auto) 0.13 1000/mm3 0.0-0.1 Basophils # (Auto) 0.02 1000/mm3 0.0-0.1 Basophils # (Auto) 0.03 1000/mm3 0.0-0.1 Differential Method Automated Differential Method Automated Differential Method Automated Differential Method Automated Erythrocyte Sedimentation Rate 4 mm/hr 0-15 Urine RBC 0-2 /hpf MAIN LAB, [address] [place] [address] 91437 Urine RBC None seen /hpf MAIN LAB, [address] [place] [address] Urine WBC 10-20 /hpf MAIN LAB, [address] [place] [address] 40683 Urine WBC 10-20 /hpf MAIN LAB, [address] [place] [address] 61899 Urine Squamous Epithelial Cells 3+ /hpf MAIN LAB, [address] [place] [address] 07191 Urine Squamous Epithelial Cells 2+ /hpf MAIN LAB, [address] [place] [address] 37639 Urine Bacteria 1+ /hpf NONE SEEN MAIN LAB, [address] [place] [address] 52106 Urine Bacteria 1+ /hpf NONE SEEN MAIN LAB, [address] [place] [address] 93564 Urine Mucus Present MAIN LAB, [address] [facility] [address] Urine Culture Done Yes URINE SPECIMEN CULTURED MAIN LAB, [address] [place] [address] 95937 Urine Culture Done Yes URINE SPECIMEN CULTURED MAIN LAB, [address] [place] [address] 07034 Sodium Level 142 mmol/L 137-145 Sodium Level 139 mmol/L 137-145 Sodium Level 137 mmol/L 137-145 Potassium Level 4.1 mmol/L 3.6-5.0 Potassium Level 3.7 mmol/L 3.6-5.0 Potassium Level 3.7 mmol/L 3.6-5.0 Chloride Level 107 mmol/L 98-107 Chloride Level 104 mmol/L 98-107 Chloride Level 104 mmol/L 98-107 Carbon Dioxide Level 28 mmol/L 22-30 Carbon Dioxide Level 25 mmol/L 22-30 Carbon Dioxide Level 28 mmol/L 22-30 Anion Gap 11 5-15 Anion Gap 10 7-16 Anion Gap 9 5-15 Blood Urea Nitrogen 11 mg/dL 7-17 Blood Urea Nitrogen 11 mg/dL 7-17 Blood Urea Nitrogen 11 mg/dL 7-17 Creatinine 0.74 mg/dL 0.52-1.04 Creatinine 0.67 mg/dL 0.52-1.04 Creatinine 0.68 mg/dL 0.52-1.04 Glomerular Filtration Rate Calc TNP Test not performedGFR cannot be calculated due to patient age. GFRs are only calculated on patients >18 years of age. Glomerular Filtration Rate Calc TNP Test not performedGFR cannot be calculated due to patient age. GFRs are only calculated on patients >18 years of age. Glomerular Filtration Rate Calc > 60 mL/min Glucose Level 79 mg/dL 65-108 Glucose Level 77 mg/dL 70-100 Glucose Level 87 mg/dL 65-108 Glucose 1 Hour Postprandial 89 mg/dL 50-500 MAIN LAB, [address] [place] [address] 36814 Glucose 1 Hour Postprandial 118 mg/dL 50-500 MAIN LAB, [address] [place] [address] 75409 Calcium Level 9.1 mg/dL 8.4-10.2 Calcium Adjusted for Albumin 9.0 mg/dL 8.4-10.2 Total Bilirubin 0.3 mg/dL 0.2-1.3 Total Bilirubin 0.3 mg/dL 0.2-1.3 Total Bilirubin < 0.1 mg/dL 0.6-10.5 Total Bilirubin < 0.1 mg/dL 0.6-10.5 Direct Bilirubin 0 mg/dL 0-0.3 Direct Bilirubin 0 mg/dL 0-0.6 Direct Bilirubin 0 mg/dL 0-0.6 Aspartate Amino Transf (AST/SGOT) 28 U/L 14-36 Aspartate Amino Transf (AST/SGOT) 18 U/L 14-36 Aspartate Amino Transf (AST/SGOT) 20 U/L 14-36 Aspartate Amino Transf (AST/SGOT) 15 U/L 14-36 Alanine Aminotransfer ase (ALT/SGPT) 23 U/L 9-52 Alanine Aminotransfer ase (ALT/SGPT) 31 U/L 9-52 Alanine Aminotransfer ase (ALT/SGPT) 25 U/L 9-52 Alanine Aminotransfer ase (ALT/SGPT) 20 U/L 9-52 Total Protein 6.1 g/dL 6.3-8.2 Total Protein 7.2 g/dL 6.3-8.2 Total Protein 6.8 g/dL 6.3-8.2 Total Protein 6.6 g/dL 6.3-8.2 Albumin 4.0 g/dL 3.5-5.0 Albumin 3.6 g/dL 3.5-5.0 Albumin 4.4 g/dL 3.5-5.0 Albumin 4.2 g/dL 3.5-5.0 Alkaline Phosphatase 72 U/L 38-126 Alkaline Phosphatase 62 U/L 38-126 Alkaline Phosphatase 74 U/L 38-126 Alkaline Phosphatase 86 U/L 38-126 Lipase 105 u/L 23-300 Free Thyroxine 0.69 ng/dL 0.78-2.19 Free Thyroxine 0.59 ng/dL 0.78-2.19 Free Thyroxine 1.29 ng/dL 0.78-2.19 Free Thyroxine 1.65 ng/dL 0.78-2.19 MAIN LAB, [address] [place] [address] 40131 Free Thyroxine 1.22 ng/dL 0.78-2.19 Free Thyroxine 0.88 ng/dL 0.78-2.19 Free Thyroxine 1.06 ng/dL 0.78-2.19 MAIN LAB, [address] [place] [address] 02281 Free Thyroxine 1.92 ng/dL 0.78-2.19 Free Thyroxine 1.04 ng/dL 0.78-2.19 Free Thyroxine 0.83 ng/dL 0.78-2.19 Free Thyroxine 0.52 ng/dL 0.78-2.19 Free Thyroxine 0.58 ng/dL 0.78-2.19 Free Thyroxine 1.87 ng/dL 0.78-2.19 Free Thyroxine 1.07 ng/dL 0.78-2.19 Free Thyroxine 1.09 ng/dL 0.78-2.19 Free Thyroxine 1.33 ng/dL 0.78-2.19 Free Thyroxine 0.86 ng/dL 0.78-2.19 Free Thyroxine 1.05 ng/dL 0.78-2.19 MAIN LAB, [address] [place] [address] 03048 Free Thyroxine 1.04 ng/dL 0.78-2.19 MAIN LAB, [address] [place] [address] 08707 Free Thyroxine 1.57 ng/dL 0.78-2.19 MAIN LAB, [address] [place] [address] 58720 Free Thyroxine 1.26 ng/dL 0.78-2.19 MAIN LAB, [address] [place] [address] 33267 Thyroxine (T4) 7.02 ug/dL 5.53-11.0 Thyroxine (T4) 7.11 ug/dL 5.53-11.0 Thyroxine (T4) 3.78 ug/dL 5.53-11.0 Thyroxine (T4) 4.54 ug/dL 5.53-11.0 Thyroxine (T4) 12.5 ug/dL 5.53-11.0 Thyroxine (T4) 5.57 ug/dL 5.53-11.0 Thyroxine (T4) 6.49 ug/dL 5.53-11.0 Thyroxine (T4) 5.58 ug/dL 5.53-11.0 Thyroxine (T4) 6.99 ug/dL 5.53-11.0 Thyroxine (T4) 5.78 ug/dL 5.53-11.0 Thyroxine (T4) 5.43 ug/dL 5.53-11.0 Thyroid Stimulating Hormone (TSH) 1.54 mlU/L 0.47-4.68 Thyroid Stimulating Hormone (TSH) 20.0 mlU/L 0.47-4.68 Thyroid Stimulating Hormone (TSH) 0.905 mlU/L 0.47-4.68 MAIN LAB, [address] [place] [address] 15997 Thyroid Stimulating Hormone (TSH) 0.747 mlU/L 0.47-4.68 Thyroid Stimulating Hormone (TSH) 1.01 mlU/L 0.47-4.68 Thyroid Stimulating Hormone (TSH) 0.734 mlU/L 0.47-4.68 Thyroid Stimulating Hormone (TSH) 0.009 mlU/L 0.47-4.68 Thyroid Stimulating Hormone (TSH) 0 mlU/L 0.47-4.68 Thyroid Stimulating Hormone (TSH) 0.419 mlU/L 0.47-4.68 MAIN LAB, [address] [place] [address] Thyroid Stimulating Hormone (TSH) 1.84 mlU/L 0.47-4.68 MAIN LAB, [address] [place] [address] 69622 Thyroid Stimulating Hormone (TSH) 1.55 mlU/L 0.47-4.68 MAIN LAB, [address] [place] [address] 50358 Thyroid Stimulating Hormone (TSH) 2.54 mlU/L 0.47-4.68 MAIN LAB, [address] [place] [address] 17027 Thyroid Stimulating Hormone (TSH) 0.129 mlU/L 0.47-4.68 Thyroid Stimulating Hormone (TSH) 6.06 mlU/L 0.47-4.68 Thyroid Stimulating Hormone (TSH) 0.080 mlU/L 0.47-4.68 Thyroid Stimulating Hormone (TSH) 0.660 mlU/L 0.47-4.68 Thyroid Stimulating Hormone (TSH) 0.368 mlU/L 0.47-4.68 Thyroid Stimulating Hormone (TSH) 0.676 mlU/L 0.47-4.68 MAIN LAB, [address] [facility] [address] Thyroid Stimulating Hormone (TSH) 3.33 mlU/L 0.47-4.68 Thyroid Stimulating Hormone (TSH) 8.47 mlU/L 0.47-4.68 Thyroid Stimulating Hormone (TSH) 3.46 mlU/L 0.47-4.68 Thyroid Stimulating Hormone (TSH) 53.3 mlU/L 0.47-4.68 Body Fl Triiodothyron ine (T3) Total 89 ng/dL 85-188 Test Performed by:[address] Director: Jaylon Loya M.D. Body Fl Triiodothyron ine (T3) Total 130 ng/dL 60-181 Test Performed by:[address] Director: Jaylon Loya M.D. Body Fl Triiodothyron ine (T3) Total 102 ng/dL 60-181 Test Performed by:[address] [address]Rqd Director: Jaylon Loya M.D. Total Triiodothyron ine 119 ng/dL 60-181 Test Performed by:THE [address] [address]Vem Director: Sina Trejo MD , Ph D Body Fl Triiodothyron ine (T3) Total 98 ng/dL 85-188 Test Performed by:[address] [address]Oek Director: Felix Max M.D. Body Fl Triiodothyron ine (T3) Total 112 ng/dL 85-188 Test Performed by:[address] [address]Thw Director: Felix Max M.D. Body Fl Triiodothyron ine (T3) Total 138 ng/dL 85-188 Test Performed by:[place] [id number] Director: Felix Max M.D. Body Fl Triiodothyron ine (T3) Total 102 ng/dL 85-188 Test Performed by:[address] Director: Felix Max M.D. Body Fl Triiodothyron ine (T3) Total 143 ng/dL 85-188 Test Performed by:[address] [address]Pml Director: Jaylon Loya M.D. Body Fl Triiodothyron ine (T3) Total 281 ng/dL 85-188 Test Performed by:[address] [address]Ztc Director: Felix Max M.D. Body Fl Triiodothyron ine (T3) Total 141 ng/dL 85-188 Test Performed by:[address] [address]Kmo Director: Jaylon Loya M.D. Body Fl Triiodothyron ine (T3) Total 110 ng/dL 85-188 Test Performed by:[address] [address]Ykv Director: Jaylon Loya M.D. Thyroid Stimulating Immunoglobuli n 1.2 TSI index Test Performed by:[address] [address]Hbxavtryk y Director: Surinder Mackay III, M.D. Immunoglobuli n A 100 mg/dL Test Performed by:[address] [address]Bah Director: Felix Max M.D. Thyroperoxida se Antibody > 1300 IU/mL Test Performed by:[address] [address]Xtk Director: Jaylon Loya M.D. Thyroglobulin Antibody 100 U/mL Tissue Transglutamin ase IgA Ab < 1.3 U/mL -- REFERENCE VALUE --<4 (Negative)Test Performed by:[place], [place] [address]Laborator y Director: Chacha Carrington, Ph.D. Hepatitis B Surface Antigen Negative NEGAT Test Performed by:THE [address] [address]Hrf Director: Sina Trejo MD , Ph D [facility] Rubella IgG Antibody Positive New methodology in use 06/08/16. Positive for IgG antibodies to Rubella virus.Test Performed by:THE [address] [address]Bgm Director: Sina Trejo MD , Ph D [facility] Varicella-Zos ter IgG Antibody Positive POSITIVE Presence of detectable Varicella Zoster virus IgG antibodies.Pop t Performed by:THE [address] [address]Aeg Director: Sina Trejo MD , Ph D [facility] Chlamydia trachomatis Amplified DNA See comments No Chlamydia trachomatis DNA detected by loan reviewer mediated amplification. Chlamydia trachomatis Amplified DNA See comments No Chlamydia trachomatis DNA detected by loan reviewer mediated amplification. Neisseria gonorrhoeae Amplified DNA See comments No Neisseria gonorrhoeae DNA detected by loan reviewer mediated amplification. Test Performed by:[address] [address]Aos Director: Jaylon Loya M.D. Neisseria gonorrhoeae Amplified DNA See comments No Neisseria gonorrhoeae DNA detected by loan reviewer mediated amplification. Test Performed by:[address] [address]Npm Director: Jaylon Loya M.D. Microbiology Results Procedure Source Result Collection Date/Time Result Date/Time Result Comment Performing Site Urine Culture Ur,Clean Catch November 19, 2017 7:47am MAIN LAB, [address] [facility] [address] Urine Culture Ur,Clean Catch January 16, 2018 8:04am MAIN LAB, [address] [facility] [address] Group A Streptococcus Screen (HUI) Throat January 19, 2018 10:36am MAIN LAB, [address] [facility] [address] Gram Stain Vaginal November 17, 2017 12:31pm MAIN LAB, [address] [facility] [address] Genital Culture Vaginal November 17, 2017 12:31pm MAIN LAB, [address] [facility] [address] Diagnostic Imaging Reports Report Dictated Date/Time Dictated By Status Radiology Report February 16, 2011 10:29am Carrie Andrews MD completed ULTRASOUND REPORT PATIENT NAME: LYNNE SCHMIDT [id number] DATE OF : 1995 ATTENDING/ER PHYSICIAN: Wes Zarate MD ER/ATTENDING PHYSICIAN: PRIMARY CARE PHYS: Sugar Lacy MD ADMITTING PHYSICIAN: CONSULTING PHYSICIAN: PROCEDURE DATE: 02/16/11 REPORT STATUS: Signed DICTATING PHYSICIAN: Carrie Andrews MD REASON FOR EXAM: ABD PAIN STUDY: US PELVIC NON-OB (COMPLETE) TECHNIQUE: Grayscale, color and pulsed Doppler interrogation was utilized. No prior similar studies are available for comparison. FINDINGS: The anteverted uterus measures 7.1 x 4.2 x 2.5 cm and demonstrates normal echotexture. The endometrial stripe measures 8 mm in maximal dimension. No free fluid is noted within the cul-de-sac. The right ovary measures 2.9 x 2 x 3.2 cm, with estimated volume of 10 mL. The left ovary measures 3.1 x 2.6 x 2 cm, with estimated volume of 9 mL. No solid adnexal masses are identified. Normal follicles are noted within both ovaries. Normal spectral arterial flow is present bilaterally. CONCLUSION: 1. Normal pelvic ultrasound. dd: 02/16/11 1029 01/29 11/09 1031 Radiology Report November 11, 2011 5:10pm Misael Crane MD completed RADIOLOGY REPORT PATIENT NAME: LYNNE SCHMIDT [id number] DATE OF : 1995 ATTENDING/ER PHYSICIAN: ER/ATTENDING PHYSICIAN: ZOE Tanner PRIMARY CARE PHYS: Sugar Lacy MD ADMITTING PHYSICIAN: CONSULTING PHYSICIAN: PROCEDURE DATE: 11/11/11 REPORT STATUS: Signed DICTATING PHYSICIAN: Misael Crane MD REASON FOR EXAM: Evaluate for:cough CHEST 2 VW FINDINGS: Heart size and pulmonary vascularity are within normal limits. No focal, acute consolidation. No pneumothorax or pleural effusion. IMPRESSION: No acute disease. dd: 11/11/111709 <Electronically signed by Misael Crane MD> 11/11/111713 Radiology Report March 13, 2014 7:56am Carrie Andrews MD completed RADIOLOGY REPORT PATIENT NAME: LYNNE SCHMIDT [id number] DATE OF : 1995 ATTENDING/ER PHYSICIAN: ER/ATTENDING PHYSICIAN: Jack Cheek MD PRIMARY CARE PHYS: Chu Giordano MD ADMITTING PHYSICIAN: CONSULTING PHYSICIAN: PROCEDURE DATE: 03/13/14 REPORT STATUS: Signed DICTATING PHYSICIAN: Carrie Andrews MD REASON FOR EXAM: Evaluate for:trauma STUDY: NASAL BONES 3VW MIN FINDINGS: Oblique lucency through the right nasal bone is suggestive of a nondisplaced fracture. The orbits are intact. The frontal and paranasal sinuses are clear. CONCLUSION: Nondisplaced fracture of the right nasal bone. dd: 03/13/14 0756 <Electronically signed by Carrie Andrews MD> 03/13/14 0758 Radiology Report May 27, 2014 3:03pm Sina Lainez MD completed ULTRASOUND REPORT PATIENT NAME: LYNNE SCHMIDT [id number] DATE OF : 1995 ATTENDING/ER PHYSICIAN: ER/ATTENDING PHYSICIAN: Lucrecia Ann MD PRIMARY CARE PHYS: UNKNOWN ADMITTING PHYSICIAN: CONSULTING PHYSICIAN: PROCEDURE DATE: 05/27/14 REPORT STATUS: Signed DICTATING PHYSICIAN: Sina Lainez MD REASON FOR EXAM: Evaluate for:pelvic pain eval for cyst PROCEDURE: US PELVIC TRANSVAG PANEL HISTORY: Evaluate for:pelvic pain eval for cyst COMPARISON: 04/19/2010. TECHNIQUE: Transabdominal and transvaginal ultrasound of the pelvis was performed. 64 images. FINDINGS: UTERUS: No evidence of mass. It measures 7.6 x 3.4 x 4.3 cm. ENDOMETRIUM: Endometrial stripe measures 9 mm. RIGHT OVARY: Small follicular cysts. Normal vascularity. It measures 3.9 x 3.2 x 3.1 cm for a volume of 20.1 cc. LEFT OVARY: Left ovary is enlarged at 4.7 x 3.8 x 5.3 cm for a volume of 49.6cc. Small follicular cysts are seen. In addition, a ill-defined echogenic avascular region in the ovary measuring approximately 2.5 x 1.8 x 2.6 cm without internal vascularity is identified. Normal arterial flow to the left ovary is seen away from this region OTHER: Small amount of free fluid in the adnexal region bilaterally. IMPRESSION: 1. Enlarged left ovary due to a echogenic avascular region measuring approximately 2.5 cm, most probably represents a hemorrhagic cyst (provided the patient's test is negative), versus possible endometrioma. Follow-up pelvic ultrasound in 6 weeks is recommended to document resolution of this finding. 2. Follicular cysts within the right ovary. 3. Normal-appearing uterus. 4. Small amount free fluid in the pelvis is probably physiologic. dd: 05/27/14 1503 <Electronically signed by Sina Lainez MD> 05/27/14 1509 Radiology Report November 23, 2014 9:00am Yahir Key MD completed ULTRASOUND REPORT PATIENT NAME: LYNNE SCHMIDT [id number] DATE OF : 1995 ATTENDING/ER PHYSICIAN: ER/ATTENDING PHYSICIAN: Wes Zarate MD PRIMARY CARE PHYS: Chu Giordano MD ADMITTING PHYSICIAN: CONSULTING PHYSICIAN: PROCEDURE DATE: 11/23/14 REPORT STATUS: Signed DICTATING PHYSICIAN: Yahir Key MD REASON FOR EXAM: ABD PAIN PELVIC ULTRASOUND (transabdominal and endovaginal) COMPARISON: 05/27/2014 pelvic ultrasound (transabdominal and endovaginal). FINDINGS: The anteverted uterus is 9.0 x 3.6 x 3.9 cm. No abnormalities seen in the cervix or myometrium. Normal-thickness ( 7-7.5 mm) endometrium is identified. The avascular hypoechoic 2.5 cm lesion in the posterior mid left ovary on 05/27/2014 has resolved, most likely having represented hemorrhage or debris in the cyst. Today's initial full bladder, transabdominal images demonstrate interval development of a 4.0 x 3.1 x 2.1 cm complex cyst in the lateral left ovary. A few thin echogenic stripes within it may represent septations or fibrin strands from prior hemorrhage. After the patient voided, today's endovaginal images showed interval disappearance of this complex left ovarian cyst, likely due to its interval rupture. The endovaginal images demonstrated a moderate amount of slightly complex free fluid in the cul-de-sac; which had not been apparent on the initial transabdominal images. Blood flow and several 10 mm and smaller follicles are identified in otherwise normal-appearing bilateral ovaries. After rupture of the left cyst, ovaries measure 3.8 x 4.8 x 3.1 cm on the left and 2.9 x 3.9 x 2.9 cm on the right. No other adnexal mass or other pelvic abnormality. IMPRESSION: 1. The complex left ovarian cyst noted on 05/27/2014 has resolved. 2. An intervally developed 4 cm complex cyst elsewhere in the left ovary ruptured between the transabdominal and endovaginal portions of today's exam. 3. At the end of the exam there was a moderate amount of complex free pelvic fluid. 4. No other significant abnormalities demonstrated. dd: 11/23/14 0900 <Electronically signed by Yahir Key MD> 11/23/14 0917 Radiology Report October 19, 2018 8:51am Carrie whiting MD completed ULTRASOUND REPORT PATIENT NAME: LYNNE PEDRAZA [id number] DATE OF : 1995 ATTENDING/ER PHYSICIAN: ER/ATTENDING PHYSICIAN: Jayson Pires PA-C PRIMARY CARE PHYS: Marva Hitchcock MD ADMITTING PHYSICIAN: CONSULTING PHYSICIAN: PROCEDURE DATE: 10/19/18 REPORT STATUS: Signed DICTATING PHYSICIAN: Carrie Andrews MD REASON FOR EXAM: RLQ pain STUDY: US Transvaginal Non-OB TECHNIQUE: Grayscale, color and pulsed Doppler interrogation was utilized. 11/23/2014 prior study is available for comparison. FINDINGS: The uterus measures 8.3 x 4 x 5.2 cm and demonstrates normal echotexture. The endometrial stripe measures 11 mm in maximal dimension. Trace free fluid is noted within the cul-de-sac. The right ovary measures 3.2 x 2.2 x 2.6 cm, with estimated volume of 9.4 mL. The left ovary measures 4.1 x 2.6 x 3.4 cm, with estimated volume of 18.6 mL. Complex 1.7 x 2.1 x 2 cm cyst in the left ovary contains admixture of echogenic debris. No solid adnexal masses are identified. Normal follicles are noted within both ovaries. Normal spectral arterial flow is present bilaterally. CONCLUSION: Complex left ovarian cyst. No torsion. Otherwise, normal pelvic ultrasound. dd: 10/19/18 0851 <Electronically signed by Carrie Andrews MD in OV> 10/19/18 0859 Advance Directives Advance Directive Response Recorded Date/ Time Does patient have an Advanced Directive? No December 27, 2009 7:16am Do we have a copy [place] [facility]? No January 19, 2017 10:06am Pt has a Living Will? No December 272009 7:16am Do we have a copy on file here at [facility]? No January 19, 2017 10:06am Pt has a Power of Flight Steward? No Novo 2009 7:16am Do we have a copy on file here at [facility]? No January 19, 2017 10:06am Chief Complaint and Reason for Visit Chief Complaint 941.00 Lab Lab Lab Lab Lab Lab Lab Lab Lab Lab Lab Lab Lab Lab Lab Lab Lab Lab Lab Lab Lab Lab Abdominal Pain Lab Lab OPEN WOUND OF KNEE, LEG, W/O MENTION OF COMPLICATI Lab Lab Lab Lab LABS Lab PBB Lab Lab Lab Lab Lab Lab Lab Lab Lab LABS ABD COMP FOLLOW UP US Encounters Encounter Location(s) Arrival/Admit Date Discharge/Depart Date Provider(s) Departed Physician/Provi jaquelin Office Visit [facility]-CONV Misc Comp Pain location Conversion Medent Departed Clinical [facility]- April 30, 1994 12:00am April 30, 1994 Conversion Providers Departed Emergency [facility]Emergency Department October 09, 1999 12:00am October 09, [address] [facility] June 10, 2001 12:00am June 10, [address] [facility] August 23, 2003 12:00am August 23, [address] [facility] August 31, 2003 12:00am August 31, [address] [facility] March 20, 2005 12:00am March 20, [address] [facility]Outpatient Conversion March 24, 2006 12:00am March 24, 2006 Sugar Lacy MD Departed Referred [facility] April 01, 2006 12:00am April 01, 2006 Sugar Lacy MD Departed Clinical [facility]Outpatient Conversion June 10, 2006 12:00am June 10, 2006 Sugar Lacy MD Departed Referred [facility] June 30, 2006 12:00am June 30, 2006 Sugar Lacy MD Departed Referred [facility] August 19, 2006 12:00am August 19, 2006 Ryan Gonzalez MD Departed Referred [facility] February 07, 2007 12:00am February 07, 2007 Benson Khan MD Departed Referred [facility] September 30, 2007 12:00am September 30, 2007 Benson Khan MD Departed Emergency [facility] November 29, 2007 12:00am November 29, 2007 null Departed [facility]-Outpatient Conversion December 01, 2007 12:00am December 01, 2007 Sugar Lacy MD Departed Clinical [facility]Outpatient Conversion February 28, 2008 12:00am February 28, 2008 Paradise Reyes MD Departed [facility]-Laboratory July 06, 2008 12:00am July 06, 2008 Paradise Reyes MD Departed Clinical [facility] July 20, 2008 12:00am July 20, 2008 Paradise Reyes MD Departed Referred [facility] September 09, 2008 12:00am September 09, 2008 Bettie Shirley MD Departed Emergency [facility] October 12, 2008 12:00am October 12, 2008 null Departed [facility]Outpatient Conversion October 22, 2008 12:00am October 22, 2008 Paradise Reyes MD Departed Emergency [facility] December 02, 2008 12:00am December 02, 2008 null Departed [facility]Outpatient Conversion January 23, 2009 12:00am January 23, 2009 Sugar Lacy MD Departed [facility]Outpatient Conversion March 27, 2009 12:00am March 27, 2009 Paradise Reyes MD Departed [facility]Outpatient Conversion May 01, 2009 8:23am May 01, 2009 11:59pm Sugar Lacy MD Departed Emergency [facility] July 06, 2009 11:00pm July 06, 2009 11:42pm Wes Zarate MD Departed [facility]Outpatient Conversion July 26, 2009 7:36am July 26, 2009 11:59pm Sugar Lacy MD Departed [facility]Labor[facility] September 03, 2009 10:45am September 03, 2009 11:59pm Paradise Reyes MD Departed [facility]Outpatient Conversion September 06, 2009 1:05pm September 06, 2009 11:59pm Luis Maldonado MD Departed [facility]Outpatient Conversion October 07, 2009 8:16am October 07, 2009 11:59pm Paradise Reyes MD Admitted [facility]Labor[facility] November 22, 2009 11:54am November 22, 2009 11:59pm Sugar Lacy MD Registered [facility]Labor[facility] December 27, 2009 7:16am Paradise Reyes MD Registered [facility] February 26, 2010 9:34am Paradise Reyes MD Registered [facility]Labor[facility] April 25, 2010 7:47am Paradise Reyes MD Registered [facility] June 27, 2010 6:52am Paradise Reyes MD Departed Emergency [facility] June 27, 2010 7:54pm June 27, 2010 9:07pm null Registered [facility]Labor[facility] October 03, 2010 7:53am Paradise Reyes MD Registered [facility] January 27, 2011 2:07pm Sugar Lacy MD Registered Clinical [facility] February 13, 2011 6:59am Paradise Reyes MD Departed Emergency [facility] February 16, 2011 12:13am February 16, 2011 1:04am null Registered Clinical [facility] February 16, 2011 9:54am Wes Zarate MD Departed Emergency [facility] February 16, 2011 10:15am February 16, 2011 10:53am null Registered Clinical [facility] March 13, 2011 6:56am Paradise Reyes MD Departed Emergency [facility] March 17, 2011 7:26pm March 17, 2011 8:38pm null Registered Clinical [facility] May 29, 2011 6:58am Paradise Reyes MD Discharged [facility] Therapy June 03, 2011 11:41am July 01, 2011 7:36am Luis Maldonado MD Registered Clinical [facility] July 13, 2011 11:22am Paradise Reyes MD Departed Emergency [facility] November 11, 2011 3:46pm November 11, 2011 5:14pm null Registered Clinical [facility] January 13, 2012 10:14am Paradise Reyes MD Registered Referred [facility] February 12, 2012 6:30pm Luis Maldonado MD Departed Emergency [facility] February 27, 2012 10:31pm February 28, 2012 1:45am null Registered Clinical [facility] April 13, 2012 12:52pm Paradise Reyes MD Registered Clinical [facility] April 21, 2013 11:28am Carlos Nuñez DO Departed Physician/Provi [facility]quelin [facility] October 30, 2013 12:00am October 30, 2013 Elean Zelaya APRN Departed Physician/Provi jaquelin Office Visit [facility]Ulises rn Urgent [facility] November 23, 2013 12:00am November 23, 2013 Manny Rubio NP Registered Clinical [facility] February 02, 2014 1:17pm Carlos Nuñez DO Departed Emergency [facility] March 13, 2014 12:30am March 13, 2014 2:36am null Departed Emergency [facility] May 27, 2014 12:16pm May 27, 2014 3:43pm null Departed Physician/Provi jaquelin Office Visit [facility] July 18, 2014 12:00am July 18, 2014 IBETH Bliss Registered Clinical [facility] October 01, 2014 11:16am Carlos Nuñez DO Departed Emergency [facility]Emergency [facility] November 23, 2014 12:39am November 23, 2014 1:23am null Registered Emergency [facility] November 23, 2014 8:09am null Departed Physician/Provi jaquelin Office Visit [facility] Ophthalmology February 07, 2015 12:00am February 07, 2015 Conversion Medent Registered Clinical [facility] Ophthalmology February 07, 2015 8:04am Ruslan Aldrich MD Registered Clinical [facility] June 20, 2015 7:18am Carlos Nuñez DO Departed Physician/Provi jaquelin [facility] July 08, 2015 12:00am July 08, 2015 IBETH Jordan Registered Clinical [facility] August 23, 2015 5:10pm Carlos Nuñez DO Departed Physician/Provi [facility]quelin [facility] May 26, 2016 12:00am May 26, 2016 Conversion Medent Departed Physician/Provi jaquelin Office Visit [facility] October 12, 2016 12:00am October 12, 2016 Conversion Medent Departed Clinical [facility] January 19, 2017 10:01am January 19, 2017 10:02am Sridevi Perez APRN Departed Clinical [facility] January 19, 2017 10:08am January 19, 2017 10:09am Carlos Nuñez DO Departed Clinical [facility] February 18, 2017 9:58am February 18, 2017 9:59am Carlos Nuñez DO Departed Physician/Provi [facility]quelin [facility] February 24, 2017 12:00am February 24, 2017 Conversion Medent Departed Clinical [facility] March 18, 2017 1:55pm March 18, 2017 1:56pm Carlos Nuñez DO Departed Clinical [facility] April 15, 2017 10:37am April 15, 2017 10:38am Carlos Nuñez DO Departed Clinical [facility] May 05, 2017 8:14am May 05, 2017 8:15am CNKeagan Dael APRN Departed Clinical [facility] May 12, 2017 1:35pm May 12, 2017 1:36pm Carlos Nuñez DO Departed Clinical [facility] June 09, 2017 10:06am June 09, 2017 10:07am Carlos Nuñez DO Departed Emergency [facility] July 31, 2017 10:12am July 31, 2017 12:03pm null Departed Emergency [facility] [place] November 17, 2017 10:29am November 17, 2017 11:26am null Depart[address] Emergency [facility] January 14, 2018 5:14pm January 14, 2018 6:45pm null Departed Emergency [facility] [place] January 17, 2018 9:29am January 17, 2018 10:03am null Depart[address] Emergency [facility] [place] March 22, 2018 1:50pm March 22, 2018 2:13pm null Departed Physician/Provi jaquelin 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 September 07, 2018 12:04pm September 07, 2018 12:59pm null Departed Emergency [facility] October 18, 2018 5:08pm October 18, 2018 7:28pm null Depart[address] Emergency [facility] October 19, 2018 8:00am October 19, 2018 9:49am null Depart[address] Emergency [facility] February 10, 2019 8:30am February 10, 2019 9:34am null Assessments No Assessments Information Available Family History Relationship Condition Age at Onset Recorded Date/T hemanth Parent Disorder of thyroid Unknown Parent Glaucoma Unknown Not Specified No current problems or disability Unknow n Functional Status Observation Response Date Recorded Living Situation With Family September 07, 2018 12:43pm Living Situation Home November 17, 2017 10:41am Living Situation With Spouse July 31, 2017 10:36am Living Situation With Family February 10, 2019 9:35am Living Situation Home October 18 5:22pm With Spouse October 18 9 5:22pm Living Situation Home March 22 019 1:56pm Living Situation Home January 17, 2018 9:33am Living Situation With Family January 14, 2018 5:51pm With Spouse January 14 018 5:51pm Goals Goals may be documented in an alternate section. Mental Status No Mental Status Information Available Medical Equipment No Medical Equipment Information available Insurance Providers Guarantor LYNNE Nichole MILO Address [address] [address] Contact Info. Home Phone: Payer Policy Id Coverage Id Subscriber's Name Subscriber Id Effective Date Expiration Date [place] [id number] LYNNE A PREGENT [id number] SELF PAY Self N/A [place] MEDICAID (DO NOT USE) [id number] LYNNE A PREGENT [id number] 2015 Plan of Treatment Future Tests Future scheduled test information is unavailable Pending Tests Pending diagnostic test information is unavailable Future Visits Future appointment information is unavailable Referrals to Other Providers Reason for Referral Referral Start Date Provider Provider Contact Information Provider Address Marva boudreaux MD Work Phone: [address] [address] Marva boudreaux MD Work Phone: [address] [address] Carlos Nuñez DO Work Phone: Mariann Hoyt [facility] [address] [facility] [address] Marva boudreaux MD Work Phone: [address] [address] [employer] [facility] Work Phone: [address] [place] [address] Marva boudreaux MD Work Phone: [address] [address] Marva boudreaux MD Work Phone: [address] [address] Marva boudreaux MD Work Phone: [address] [address] Marva boudreaux MD Work Phone: [address] [address] Future Procedures Future procedure information is unavailable Future Medications Future medication information is unavailable Patient Instructions Ovarian Cyst (DC) Social History Smoking Status Status Date of Observation Never smoked tobacco (finding) February 10, 2019 9:35am Observation Status Observation Response Date of Response Alcohol Use Yes February 10 9:35am alcohol intake frequency a few times a month Dec emb2018 9:35am substance use type does not use January 9:35am Smoking Status Never smoker February 10 9:35am Assigned Sex Female Vital Signs Vital Reading Result Reference Range Collection Date/Time Height 62.25 [in_i] October 30, 2013 4:17pm Weight 77.11 kg October 30, 2013 4:17pm Body Temperature 98.6 [degF] 97.6-99.6 October 302013 4:17pm Heart Rate 60 /min 60-100 October 30, 2013 4:17pm Respiratory rate 16 /min 12-24 October 302013 4:17pm Oxygen saturation by Pulse oximetry 96 % 95-100 October 30, 2013 4:17pm BP Systolic 120 mm[Hg] 100-140 October 30, 2013 4:17pm BP Diastolic 76 mm[Hg] 50-85 October 30, 2013 4:17pm BMI (Body Mass Index) 30.8 kg/m2 2013 4:17pm Height 62.25 [in_i] November 23, 2013 9:39am Weight 77.11 kg November 23, 2013 9:39am Body Temperature 98.0 [degF] 97.6-99.6 October 312013 9:39am Heart Rate 68 /min 60-100 November 23, 2013 9:39am Respiratory rate 16 /min 12-October 312013 9:39am BP Systolic 130 mm[Hg] 100-140 November 23, 2013 9:39am BP Diastolic 72 mm[Hg] 50-85 November 23, 2013 9:39am BMI (Body Mass Index) 30.8 kg/m2 2013 9:39am Height 62.75 [in_i] July 18, 2014 7:53pm Weight 78.01 kg July 18, 2014 7:53pm Body Temperature 98.1 [degF] 97.6-99.6 July 18 015 7:53pm Heart Rate 77 /min 60-100 July 18, 2014 7:53pm Respiratory rate 16 /min -July 18 015 7:53pm Oxygen saturation by Pulse oximetry 99 % 95-100 July 18, 2014 7:53p m BP Systolic 104 mm[Hg] 100-140 July 18, 2014 7:53pm BP Diastolic 70 mm[Hg] 50-85 July 18, 2014 7:53pm BMI (Body Mass Index) 30.7 kg/m2 July 182014 7:53pm Height 63 [in_i] February 07, 2015 8:20am Weight 74.84 kg February 07, 2015 8:20am BP Systolic 113 mm[Hg] 100-140 February 07, 2015 8:20am BP Diastolic 74 mm[Hg] 50-85 February 07, 2015 8:20am BMI (Body Mass Index) 29.2 kg/m2 [facility]2014 8:20am Weight 81.64 kg July 08, 2015 1 1:32am Body Temperature 98.1 [degF] 97.6-99.6 July 07 11:32am Heart Rate 73 /min 60-100 July 08, 2015 1 1:32am Respiratory rate 16 /min -July 07 11:32am Oxygen saturation by Pulse oximetry 98 % 95-100 July 08, 2015 11:32a m BP Systolic 110 mm[Hg] 100-140 July 08, 2015 1 1:32am BP Diastolic 74 mm[Hg] 50-85 July 08, 2015 1 1:32am Height 63 [in_i] May 26 3:26pm Weight 81.64 kg May 26 3:26pm Body Temperature 98.0 [degF] 97.6-99.6 May 26, 2016 3:26pm Heart Rate 70 /min 60-100 May 26 7 3:26pm Respiratory rate 16 /min -May 26, 2016 3:26pm Oxygen saturation by Pulse oximetry 98 % 95-100 May 26, 2016 3:2 6pm BP Systolic 110 mm[Hg] 100-140 May 26 3:26pm BP Diastolic 84 mm[Hg] 50-85 May 26 3:26pm BMI (Body Mass Index) 31.9 kg/m2 May 26, 2016 3:26pm Body Temperature 98.5 [degF] 97.6-99.6 September 8:25am Heart Rate 78 /min 60-100 October 12 8:25am Respiratory rate 18 /min -September 8:25am Oxygen saturation by Pulse oximetry 100 % 95-100 October 12, 2016 8: 25am BP Systolic 120 mm[Hg] 100-140 October 12 8:25am BP Diastolic 70 mm[Hg] 50-85 October 12 8:25am Height 63 [in_i] February 24, 2017 10:43am Weight 94.34 kg February 24, 2017 10:43am Heart Rate 92 /min 60-100 February 24, 2017 10:43am BP Systolic 119 mm[Hg] 100-140 February 24, 2017 10:43am BP Diastolic 82 mm[Hg] 50-85 February 24, 2017 10:43am BMI (Body Mass Index) 36.8 kg/m2 [facility] 2016 10:43am Height 63 [in_i] July 31, 2017 10:36am Weight 113.39 kg July 31, 2017 10:36am Body Temperature 98.5 [degF] 97.6-99.6 July 31, 018 10:36am Heart Rate 105 /min 60-100 July 31, 2017 10:36am Respiratory rate 15 /min -July 31 2 018 10:36am Oxygen saturation by Pulse oximetry 96 % 95-100 July 31, 2017 10:36 am BP Systolic 128 mm[Hg] 100-140 July 31, 2017 10:36am BP Diastolic 70 mm[Hg] 50-85 July 31, 2017 10:36am BMI (Body Mass Index) 44.2 kg/m2 July 312017 10:36am Weight 104.32 kg November 17, 2017 10:41am Body Temperature 98.6 [degF] 97.6-99.6 October 302017 10:41am Heart Rate 88 /min 60-100 November 17, 2017 10:41am Respiratory rate 16 /min 12-October 302017 10:41am BP Systolic 110 mm[Hg] 100-140 November 17, 2017 10:41am BP Diastolic 70 mm[Hg] 50-85 November 17, 2017 10:41am Height 62.25 [in_i] January 14, 2018 5:51pm Weight 104.32 kg January 14, 2018 5:51pm Body Temperature 98.8 [degF] 97.6-99.6 January 142017 5:51pm Heart Rate 84 /min 60-100 January 14, 2018 6:44pm Respiratory rate 16 /min 12-January 142017 5:51pm Oxygen saturation by Pulse oximetry 97 % 95-100 January 14, 2018 5:51pm BP Systolic 106 mm[Hg] 100-140 January 14, 2018 5:51pm BP Diastolic 86 mm[Hg] 50-85 January 14, 2018 5:51pm BMI (Body Mass Index) 41.7 kg/m2 [facility] 2017 5:51pm Height 62 [in_i] January 17, 2018 9:33am Weight 104.32 kg January 17, 2018 9:33am Body Temperature 97.8 [degF] 97.6-99.6 January 172017 9:33am Heart Rate 64 /min 60-100 January 17, 2018 9:33am Respiratory rate 17 /min 12-January 172017 9:33am Oxygen saturation by Pulse oximetry 99 % 95-100 January 17, 2018 9:33am BP Systolic 110 mm[Hg] 100-140 January 17, 2018 9:33am BP Diastolic 70 mm[Hg] 50-85 January 17, 2018 9:33am BMI (Body Mass Index) 42.0 kg/m2 Novemb er 2017 9:33am Height 62 [in_i] March 22 1:56pm Weight 104.32 kg March 22 1:56pm Body Temperature 97.8 [degF] 97.6-99.6 March 1:56pm Heart Rate 72 /min 60-100 March 22 019 1:56pm Respiratory rate 16 /min 12-March 1:56pm Oxygen saturation by Pulse oximetry 99 % 95-100 March 22, 2018 1 :56pm BP Systolic 120 mm[Hg] 100-140 March 22 1:56pm BP Diastolic 70 mm[Hg] 50-85 March 22 1:56pm BMI (Body Mass Index) 42.0 kg/m2 Marua y 2018 1:56pm Height 63 [in_i] April 12, 2018 1:25pm Weight 109.31 kg April 12, 2018 1:25pm BP Systolic 126 mm[Hg] 100-140 April 12, 2018 1:25pm BP Diastolic 80 mm[Hg] 50-85 April 12, 2018 1:25pm BMI (Body Mass Index) 42.7 kg/m2 2018 1:25pm Height 63 [in_i] September 07, [...] 84 mm[Hg] 50-85 September 07, 2018 12:43pm BMI (Body Mass Index) 40.7 kg/m2 August 292018 12:43pm Weight 99.79 kg October 18 5:17pm Body Temperature 98.3 [degF] 97.6-99.6 September 5:17pm Heart Rate 92 /min 60-100 October 18 5:17pm Respiratory rate 18 /min 12-24 September 5:17pm Oxygen saturation by Pulse oximetry 98 % 95-100 October 18, 2018 5: 17pm BP Systolic 119 mm[Hg] 100-140 October 18 5:17pm BP Diastolic 74 mm[Hg] 50-85 October 18 5:17pm BMI (Body Mass Index) 40.7 kg/m2 August 292018 12:43pm Weight 40.70 kg October 19 8:14am BMI (Body Mass Index) 40.7 kg/m2 August 292018 12:43pm Height 62 [in_i] February 10, 2019 8:43am Weight 104.32 kg February 10, 2019 8:43am Body Temperature 97.5 [degF] 97.6-99.6 February 102018 8:43am Heart Rate 79 /min 60-100 February 10, 2019 8:43am Respiratory rate 20 /min -24 February 102018 8:43am Oxygen saturation by Pulse oximetry 100 % 95-100 February 10, 2019 8:43am BP Systolic 131 mm[Hg] 100-140 February 10, 2019 8:43am BP Diastolic 62 mm[Hg] 50-85 February 10, 2019 8:43am BMI (Body Mass Index) 42.0 kg/m2 [facility] 2018 8:43am
--- OUTSIDE RECORDS SUMMARY | 2023-03-30 02:35 | XMS_ITS | Continuity of Care Document ---
Author Name Unknown Address [address] [place] [id number] Phone Organization [facility] Address [address] [place] [address] Phone Care Team Providers Care Culinary Arts Teacher Name Role Phone Marva Hitchcock Primary [...] 14, 2021 8:11pm Evan paez MD completed [facility] RADIOLOGY REPORT PATIENT NAME: LYNNE PEDRAZA [id number] [...] 7:33pm Insurance Providers Guarantor LYNNE PEDRAZA Address [address] [place] [phone] Contact Info. Home Phone: Payer Policy Id Coverage Id Subscriber's Name Subscriber Id Effective Date Expiration Date [facility] [id number] LYNNE PEDRAZA [id number] SELF PAY Self N/A [place] MEDICAID (DO NOT USE) [id number] LYNNE Varela PREGENT [id number] 2015 Encounters Encounter Location(s) Arrival/Admit Date Discharge/Depart Date Provider(s) Departed Emergency [facility]-Emergency Department December 14, 2021 5:34pm December 14, [...] Provider Address Marva Hitchcock MD Work Phone: [address] [address] Future Procedures Future procedure information is unavailable [...]
[2023-03-30 10:34] LABS: HCT 34.7 % (36.0-46.0); HGB 11.6 g/dL (11.2-15.7); MCH 29.1 pg (27.0-33.0); MCHC 33.4 % (32.0-36.0); MCV 87 fL (80-95); MPV 9.1 fL (8.0-11.0); Platelet Count 289 10^3/uL (130-400); RBC 3.99 10^6/uL (3.93-5.22); RDW 14.4 % (11.7-14.6); RDW-SD 45.3 fL
[2023-03-30 10:50] LABS: Glucose,1 Hr (Glucola) 140 mg/dL (80-140)
[2023-03-30 11:29] LABS: ALT 17 U/L (14-59); AST 9 U/L (15-37); Albumin 2.5 g/dL (3.4-5.0); Alkaline Phosphatase 86 U/L (46-116); BUN 5 mg/dL (7-18); Bilirubin, Total 0.2 mg/dL (0.2-1.0); CREATININE 0.5 mg/dL (0.55-1.02); Calcium 8.4 mg/dL (8.5-10.1); Chloride 103 mmol/L (98-107); Estimated GFR 130.12 (mL/min/1.73m2); Glucose 137 mg/dL (74-106); Potassium 3.5 mmol/L (3.5-5.1); Sodium 138 mmol/L (136-145); TSH (W/Ref FT4) 0.42 uIU/mL (0.36-3.74); Total Protein 6.7 g/dL (6.4-8.2)
== END 2023-03-30 02:33 | disposition home or self-care (01) ==
LOC: LBO 02:32
PROVIDERS: PCP Nurse Practitioner Family; Visit Provider Advanced Practice Midwife
DX: Z34.93 Encounter for supervision of normal pregnancy, unspecified, third trimester (principal)
CPT/HCPCS: 36415; 80053; 82950; 85027; 84443

== ENCOUNTER 2023-04-08 02:04 | Outpatient (CLI) | payer MEDICAID, SELFPAY ==
[2023-04-08 08:31] LABS: FREE T4 1.07 ng/dL (0.76-1.46); TSH 0.47 uIU/mL (0.36-3.74)
[2023-04-08 09:58] LABS: Glucose 1 Hour 155 mg/dL
[2023-04-08 11:49] LABS: Glucose 3 Hour 121 mg/dL
== END 2023-04-08 02:05 | disposition home or self-care (01) ==
LOC: LBO 02:05
PROVIDERS: PCP Nurse Practitioner Family; Visit Provider Advanced Practice Midwife
DX: Z86.32 Personal history of gestational diabetes (principal); R73.09 Other abnormal glucose
CPT/HCPCS: 36415; 82951; 84439; 84443

== ENCOUNTER 2023-04-16 11:17 | Outpatient (REF) | payer MEDICAID, SELFPAY | END 2023-04-16 11:18 | disposition home or self-care (01) | LOC: LBN 11:17 | PROVIDERS: PCP Nurse Practitioner Family; Visit Provider Advanced Practice Midwife | DX: O26.893 Other specified pregnancy related conditions, third trimester (principal); R10.32 Left lower quadrant pain; R82.998 Other abnormal findings in urine; Z3A.29 29 weeks gestation of pregnancy | CPT/HCPCS: 87086 ==

== ENCOUNTER 2023-04-20 12:19 | Emergency (ER) | payer MEDICAID, SELFPAY ==
[2023-04-20 12:29] VITALS: BP 154/94; PULSE 81; RESP 16; TEMP 36.4; O2SAT 98
[2023-04-20 13:14] LABS: Bilirubin Negative (Negative); Blood Negative (Negative); Clarity Sl Cloudy (Clear); Glucose Negative (Negative); Ketones Negative (Negative); Leukocyte Esterase Trace (Negative); Nitrite Negative (Negative); Urobilinogen 0.2 mg/dL (Up to 0.2); pH 6.5 (5-8)
[2023-04-20 13:19] LABS: RBC 0-2 HPF (0-2)
[2023-04-20 13:20] LABS: Bacteria Moderate HPF (Negative); C & S Indicated? No/Sq. Contamination; Casts Negative LPF (Negative); Crystals Negative HPF (Negative); Epithelial Cells Many HPF (Negative); Mucus Negative (Negative)
[2023-04-20 13:39] LABS: Abs Immature Grans 0.05 10^3/uL (0.0-0.06); Absolute Basophil Count 0.03 10^3/uL (0.0-0.2); Absolute Eosinophil Count 0.08 10^3/uL (0.0-0.7); Absolute Lymphocyte Count 1.67 10^3/uL (1.2-3.4); Absolute Monocyte Count 0.48 10^3/uL (0.1-0.8); Absolute Neutrophil Count 7.38 10^3/uL (1.2-6.7); Basophils % 0.3; Eosinophils % 0.8; Immature Grans % 0.5; Lymphocytes % 17.2; MCH 28.9 pg (27.0-33.0); MCHC 33.3 % (32.0-36.0); MCV 87 fL (80-95); Neutrophils % 76.2; RBC 4.15 10^6/uL (3.93-5.22); RDW 14.2 % (11.7-14.6); RDW-SD 45.3 fL; WBC 9.69 10^3/uL (4.4-10.8)
[2023-04-20] MEDS: Metoclopramide 10 MG/2 ML VIAL IVP (13:43)
[2023-04-20] MEDS: Normal Saline 1,000 ML 1000 ML IV ×2 (13:44→15:09)
[2023-04-20 13:53] LABS: ALT 16 U/L (14-59); AST 15 U/L (15-37); Albumin 2.6 g/dL (3.4-5.0); Alkaline Phosphatase 103 U/L (46-116); Anion Gap 12.5 mmol/L (3-11); BUN 8 mg/dL (7-18); Bilirubin, Total 0.2 mg/dL (0.2-1.0); CO2 18.5 mmol/L (21.0-32.0); CREATININE 0.6 mg/dL (0.55-1.02); Calcium 9.1 mg/dL (8.5-10.1); Chloride 103 mmol/L (98-107); Estimated GFR 124.53 (mL/min/1.73m2); Glucose 90 mg/dL (74-106); Magnesium 1.3 mg/dL (1.8-2.4); Potassium 3.6 mmol/L (3.5-5.1); Sodium 134 mmol/L (136-145)
[2023-04-20 13:54] LABS: Diff Comment Diff Reviewed; RBC Morphology Normal
--- NOTE | 2023-04-20 14:00 | RT.EKG_ITS ---
APPROVED REPORT Exam: Resting ECG Reason for Exam: hypomagnesemia Patient Location: E HR:74 bpm ECG Measurements Heart Rate 74 AXIS ID 188 P 32 QRSd 89 QRS 19 QT 430 T -11 QTc 478 Conclusion Sinus rhythm...normal P axis, V-rate 60- 99 Borderline T abnormalities, diffuse leads...T flat/neg
[2023-04-20 14:01] LABS: Hemoglobin A1C 5.2 % (<5.7)
[2023-04-20] MEDS: MAGNESIUM SULFATE 2 GM/50 ML BAG IVPB (14:14)
--- NOTE | 2023-04-20 15:29 | ED.GENADUL_ITS ---
HPI <IBETH Esquivel - Last Filed: 04/21/23 08:40> General Date/Time Provider Initiated Documentation: 04/20/23 12:42 . HPI Narrative: This 27-year-old female with past medical history of Graves', fatty liver, presents with headache and blurred vision. History of headaches, states that this was slightly worse than previous headaches. Denies any fever or chills. Denies any injury. Denies current vomiting has been intermittently nauseous and photophobic. Denies risk of car monoxide exposure, 30 weeks, denies any diarrhea or vaginal bleeding. Denies any lower abdominal cramping. Denies stiff neck. Denies any strength or sensation change. Denies any history of preeclampsia. Was just started on Lantus for gestational diabetes which she is also had with her prior pregnancies. Related Data Home Medications Medication Instructions Recorded Confirmed albuterol sulfate 90 mcg/actuation 2 inh inhalation Q6H PRN shortness 04/29/21 04/20/23 breath activated powder inhaler of breath or wheezing #1 ea (ProAir RespiClick) acetaminophen 500 mg tablet 500 mg PO Q6H PRN pain #60 tabs 03/10/22 04/20/23 vitamin with calcium 1 tab PO DAILY #90 tabs 10/22/22 04/20/23 no.72-iron 27 mg-folic acid 1 mg tablet valacyclovir 1 gram tablet 1,000 mg PO PRN PRN 11/25/22 04/20/23 (Valtrex) levothyroxine 150 mcg tablet 250 mcg PO DAILY 02/08/23 04/20/23 sucralfate 1 gram tablet (Carafate) 1 g PO Q6H 03/16/23 04/20/23 magnesium oxide 400 mg (241.3 mg 400 mg PO BID #60 tabs 03/25/23 04/20/23 magnesium) tablet blood sugar diagnostic (FreeStyle #100 ea 04/08/23 04/16/23 Lite Strips) lancets 28 gauge (FreeStyle #100 ea 04/16/23 04/16/23 Lancets) pen needle, diabetic 32 gauge x #100 ea 04/16/23 04/16/23 (Aqinject Pen Needle) insulin glargine 100 unit/mL (3 14 unit (0.14 mL) subcut QPM #15 mL 04/20/23 mL) subcutaneous pen (Lantus Solostar U-100 Insulin) Previous Rx's Medication Instructions Recorded albuterol sulfate 90 mcg/actuation 2 inh inhalation Q6H PRN shortness 04/29/21 breath activated powder inhaler of breath or wheezing #1 ea (ProAir RespiClick) acetaminophen 500 mg tablet 500 mg PO Q6H PRN pain #60 tabs 03/10/22 vitamin with calcium 1 tab PO DAILY #90 tabs 10/22/22 no.72-iron 27 mg-folic acid 1 mg tablet magnesium oxide 400 mg (241.3 mg 400 mg PO BID #60 tabs 03/25/23 magnesium) tablet blood sugar diagnostic (FreeStyle #100 ea 04/08/23 Lite Strips) lancets 28 gauge (FreeStyle #100 ea 04/16/23 Lancets) pen needle, diabetic 32 gauge x #100 ea 04/16/23 (Aqinject Pen Needle) insulin glargine 100 unit/mL (3 14 unit (0.14 mL) subcut QPM #15 mL 04/20/23 mL) subcutaneous pen (Lantus Solostar U-100 Insulin) Allergies Allergy/AdvReac Type Severity Reaction Status Date / Time No Known Allergies Allergy Verified 04/20/23 12:28 General Stated Complaint: Headache JEANETTE: 3 Course <IBETH Esquivel - Last Filed: 04/21/23 08:40> Vital Signs Vital signs: Vital Signs Temperature 36.4 C L 04/20/23 12:29 Pulse 81 04/20/23 12:29 Respiratory Rate 16 04/20/23 12:29 Blood Pressure 154/94 H 04/20/23 12:29 Pulse Oximetry 98 04/20/23 12:29 Temperature 36.4 C L 04/20/23 12:29 Temperature Source Temporal Artery Scan 04/20/23 12:29 Pulse 81 04/20/23 12:29 Respiratory Rate 16 04/20/23 12:29 Blood Pressure 154/94 H 04/20/23 12:29 Blood Pressure Position Sitting 04/20/23 12:29 Pulse Oximetry 98 04/20/23 12:29 Oxygen Delivery Method Room Air 04/20/23 12:29 Oxygen Flow Rate 0 04/20/23 12:29 Pain Level 8 04/20/23 12:29 Lab/Test Results Lab/Test Results: Laboratory Tests Range/Units 04/20/23 04/20/23 04/20/23 13:05 13:27 13:27 WBC (4.4-10.8) 10^3/uL 9.69 RBC (3.93-5.22) 10^6/uL 4.15 Hgb (11.2-15.7) g/dL 12.0 Hct (36.0-46.0) % 36.0 MCV (80-95) fL 87 MCH (27.0-33.0) pg 28.9 MCHC (32.0-36.0) % 33.3 RDW (11.7-14.6) % 14.2 Plt Count (130-400) 10^3/uL MPV (8.0-11.0) fL Immature Gran % 0.5 Neutrophils % 76.2 Lymphocytes % 17.2 Monocytes % 5.0 Eosinophils % 0.8 Basophils % 0.3 Nucleated RBC % (0.0-0.3) % 0.0 Absolute Neutrophils (1.2-6.7) 10^3/uL 7.38 H Absolute Lymphocytes (1.2-3.4) 10^3/uL 1.67 Absolute Monocytes (0.1-0.8) 10^3/uL 0.48 Absolute Eosinophils (0.0-0.7) 10^3/uL 0.08 Absolute Basophils (0.0-0.2) 10^3/uL 0.03 RBC Morphology Normal Sodium (136-145) mmol/L 134 L Potassium (3.5-5.1) mmol/L 3.6 Chloride (98-107) mmol/L 103 Carbon Dioxide (21.0-32.0) mmol/L 18.5 L Anion Gap (3-11) mmol/L 12.5 H BUN (7-18) mg/dL 8 Creatinine (0.55-1.02) mg/dL 0.6 Est GFR (CKD-EPI 2020) (mL/min/1.73m2) 124.53 Glucose (74-106) mg/dL 90 Hemoglobin A1c (<5.7) % 5.2 Calcium (8.5-10.1) mg/dL 9.1 Magnesium (1.8-2.4) mg/dL 1.3 L Cancelled Total Bilirubin (0.2-1.0) mg/dL 0.2 AST (15-37) U/L 15 ALT (14-59) U/L 16 Alkaline Phosphatase (46-116) U/L 103 Total Protein (6.4-8.2) g/dL 7.0 Albumin (3.4-5.0) g/dL 2.6 L Urine Color (Yellow) Yellow Urine Clarity (Clear) Sl Cloudy Urine pH (5-8) 6.5 Ur Specific [place] (1.005-1.025) 1.010 Urine Protein (Neg-Trace) mg/dL Negative Urine Ketones (Negative) mg/dL Negative Urine Blood (Negative) Negative Urine Nitrite (Negative) Negative Urine Bilirubin (Negative) Negative Urine Urobilinogen (Up to 0.2) mg/dL 0.2 Ur Leukocyte Esterase (Negative) Trace H Urine RBC (0-2) HPF 0-2 Urine WBC (0-5) HPF 5-10 Ur Epithelial Cells (Negative) HPF Many Urine Crystals (Negative) HPF Negative Urine Bacteria (Negative) HPF Moderate Urine Casts (Negative) LPF Negative Urine Mucus (Negative) Negative Ur Culture Indicated? No/Sq. Contamination Urine Glucose (Negative) mg/dL Negative Medical Decision Making <IBETH Esquivel - Last Filed: 04/21/23 08:40> 27-year-old female presents to the emergency department with headache, some blurred vision, 30 weeks , heart rate 135, does not endorse any abdominal pain or vaginal bleeding No history of preeclampsia, no proteinuria, blood pressure stable 122/80 on reassessment, low suspicion for preeclampsia Treated for migraine headache with Compazine and fluids, feeling marked improvement in her headache, complete resolution at time of reassessment Magnesium notably low, 1.3, has not been taking her magnesium supplementation EKG, please see my attendings documentation Supply with 3 g of IV magnesium and 800 mg of magnesium oxide, will recheck magnesium at 1600 Feeling marked improvement, able to tolerate p.o., will resume magnesium at home Care will be transitioned to Tiffanie Cespedes pending magnesium recheck Case discussed with Dr. Stockton who personally evaluated the patient in the emergency department and feel she is stable for discharge home to continue to take her magnesium supplementation Will follow-up with patient for recheck on Wednesday Quality:SDOH Health Related Social Needs: No Data to Display <Tiffanie Aleman NP - Last Filed: 04/20/23 20:05> 27-year-old female presents to the emergency department with headache, some blurred vision, 30 weeks , heart rate 135, does not endorse any abdominal pain or vaginal bleeding No history of preeclampsia, no proteinuria, blood pressure stable 122/80 on reassessment, low suspicion for preeclampsia Treated for migraine headache with Compazine and fluids, feeling marked improvement in her headache, complete resolution at time of reassessment Magnesium notably low, 1.3, has not been taking her magnesium supplementation EKG, please see my attendings documentation Supply with 3 g of IV magnesium and 800 mg of magnesium oxide, will recheck m agnesium at 1600 Feeling marked improvement, able to tolerate p.o., will resume magnesium at home Care will be transitioned to Tiffanie Cespedes pending magnesium recheck Case discussed with Dr. Stockton who personally evaluated the patient in the emergency department and feel she is stable for discharge home to continue to take her magnesium supplementation Will follow-up with patient for recheck on Wednesday 1608: SJ: Care assumed from provider (IBETH Esquivel) Please see their initial HPI, PE, and documentation. Discussed patient details and case and pending workup and disposition. Patient is hemodynamically stable, and alert and oriented. At the time of signout awaiting repeat magnesium and reevaluation and dispo. Repeat Mag 2.0 will discharge patient to home. This text was generated using Lyatissation system, please disregard any oddities of phrase or misspellings. PFSH <IBETH Esquivel - Last Filed: 04/21/23 08:40> All Active Problems (Updated 04/20/23 @ 15:51 by IBETH Esquivel) Headache (Acute) Hypomagnesemia (Acute) (Acute) with abdominal cramping of lower quadrant, antepartum (Acute) Gestational diabetes mellitus (GDM) affecting third (Acute) insulin 10 units Lantus started 04/16/23 Hx of Helicobacter infection (Acute) History of Graves' disease (Acute) History of marijuana use (Acute) (Acute) Carpal tunnel syndrome, right (Acute) S/P ECTR: 03/10/2022 Carpal tunnel syndrome, left (Acute) Post depression (Acute) H/O cold sores (Acute) De Quervain's tenosynovitis, right (Acute) S/P Release: 03/10/2022 De Quervain's tenosynovitis, left (Acute) BMI 50.0-59.9, adult (Acute) Elevated liver enzymes (Acute) Fatty liver (Acute) incidental finding, patient reports she was heavy drinker in past and is aware of this finding Graves' disease (Acute) Recurrent genital HSV (herpes simplex virus) infection (Acute) Hypothyroidism (Chronic) see Carlos Nuñez MD, diagnosed age 12, graves disease Medical History (Updated 04/20/23 @ 15:51 by IBETH Esquivel) Elevated glucose History of gestational diabetes TSH elevation Gestational diabetes mellitus (GDM) affecting Right flank pain renal scan is nml, problem resolved Heavy alcohol use ages [age], Post depression Depression ADHD (attention deficit hyperactivity disorder) evaluation High BMI 49 Cholangitis due to bile duct calculus with obstruction Choledocholithiasis with obstruction History of radioactive iodine thyroid ablation age 14 Epigastric abdominal pain Acute cholecystitis Asthma Intractable abdominal pain Morbidly obese Surgical History History of carpal tunnel surgery of right wrist History of esophagogastroduodenoscopy (EGD) (~06/2020) H/O endoscopic retrograde cholangiopancreatography (~06/17/20) History of cholecystectomy (~02/15/20) Family History Father Yanira's disease Hypertension Diabetes Mother Hypertension Retinal disease Kidney stones Brother Autism Retinal disease Oppositional defiant behavior Brother Retinal disease Brother Autism half brother Niece Autism high functioning Nephew Autism Social History Smoking/Tobacco Use Status: Never Smoking risk assessment performed?: Yes Alcohol Intake: former Details: heavy drinking age [age]. Denies use now. Drug use: Current Sobriety Substance use type: former substance user Details: Not since finding out about Housing: apartment Current gender identity: female Do you feel safe at home: Yes Do you feel safe in your relationship?: Yes Female Reproductive History Menstrual control method: none History History 3 Para 2 Hx # Term Pregnancies 2 Multiple births 0 Hx # Pregnancies 0 Ectopic pregnancies 0 AB induced 0 Hx Number of Living Children 2 AB spontaneous 0 Past Pregnancies Del. Date GA/Weeks # Preg Succ Route Wgt Sex Labor Lgth Anesth esia Location Prov Complic 08/08/17 40 No vaginal 3827.186 g Female [facility], vanishing twin 08/07/21 39 No Yes 3456 g Female [facility] Delivery Date: 08/08/17 Last Updated by: Sarah Doherty Spont labor, epidural, Jailyn Delivery Date: 08/07/21 Last Updated by: Sarah Doherty GDM, GHTN, IOL, epidural worked poorly. Luanne Sign Out <IBETH Esquivel - Last Filed: 04/21/23 08:40> Sign Out Data: Sign Out Comment: pending repeat magnesium and dispo if improving f/u ob on Wednesday Last updated by Chacha Juan PA at 04/20/23 15:56 Discharge Plan Disposition Patient Disposition: Home Condition: Stable Discharge Details Clinical Impression: , Hypomagnesemia, Headache Primary Care Provider: DAYAN MOJICA ED Provider: Tiffanie Aleman Home Meds and New Rx's Prescriptions: Continued levothyroxine 150 mcg tablet 250 mcg PO DAILY Patient Comments: pt reports she is taking 250 mcg magnesium oxide 400 mg (241.3 mg magnesium) tablet 400 mg PO BID Qty: 60 5RF (DME) lancets [FreeStyle Lancets] 28 gauge misc See Rx Instructions .Route Qty: 100 5RF Rx Instructions: As directed (DME) pen needle, diabetic [Aqinject Pen Needle] 32 gauge x 5/32 needle See Rx Instructions .Route Qty: 100 3RF Rx Instructions: daily injection ProAir RespiClick 90 mcg/actuation aerosol powdr breath activated 2 inh inhalation Q6H PRN (Reason: shortness of breath or wheezing) Qty: 1 0RF PNV,calcium 13-psxz-yuoxx acid 27 mg iron- 1 mg tablet 1 tab PO DAILY Qty: 90 4RF Rx Instructions: give with food (meal/snack) (DME) FreeStyle Lite Strips Strip See Rx Instructions .Route Qty: 100 5RF Rx Instructions: QID insulin glargine [Lantus Solostar U-100 Insulin] 100 unit/mL (3 mL) insulin pen 14 unit subcut QPM Qty: 15 0RF acetaminophen 500 mg tablet 500 mg PO Q6H PRN (Reason: pain) Qty: 60 2RF sucralfate [Carafate] 1 gram tablet 1 g PO Q6H valacyclovir [Valtrex] 1 gram tablet 1,000 mg PO PRN PRN Discharge Instructions Instructions: (ED), Hypomagnesemia (ED), General Headache (ED) Additional Instructions: Take Tylenol as needed for your headache Take your magnesium oxide daily, this is very important Stay hydrated, 8-10 8 ounce glasses of water daily Follow-up with OB at your scheduled appointment it sounds like you are going to be reevaluated on Wednesday Please return should you have any persistent, new, or worsening symptoms Referrals: Namita Stockton MD [ [facility] STAFF PHYSICIAN] - 3 days Discharge Data Discharge Date/Time-TO BE ENTERED AT DEPARTURE: 04/20/23 17:28
[2023-04-20] MEDS: Magnesium Oxide 400 MG TAB 800 MG PO (16:04)
[2023-04-20] MEDS: MAGNESIUM SULFATE 1 GM/100 ML BAG IVPB (16:05)
== END 2023-04-20 17:28 | disposition home or self-care (01) ==
PROVIDERS: Physician Assistant; Emergency Provider Registered Nurse Emergency; PCP Nurse Practitioner Family
DX: O99.891 Other specified diseases and conditions complicating pregnancy (principal); E83.42 Hypomagnesemia; R51.9 Headache, unspecified
CPT/HCPCS: 36415; 80053; 93005; 96365; 96367; 96368; 96375; 99284; 81003; 81015; 83036; 83735; 85025; 93010; J0131; J2765; J3475

== ENCOUNTER → 2023-05-04 00:57 | Outpatient (CLI) | payer MEDICAID, SELFPAY ==
--- NOTE | 2023-05-04 09:15 | DI.US_ITS ---
Exam(s) US OB CHRISTI WEIGHT EXAM: US OB CHRISTI WEIGHT CLINICAL HISTORY: interval growth,z34.90. TECHNIQUE: Transabdominal obstetrical ultrasound performed. COMPARISON: US US OB 2-3 TRIMESTER from 02/02/2023 FINDINGS: Number of fetuses: 1 position: CEPHALIC Placental location: There is a grade 1 posterior placenta. BIOMETRIC DATA: BPD: 7.95cm, 31weeks 6days HC: 29.03cm, 32weeks AC: 28.38cm, 32weeks 3days FL: 6.24cm, 32weeks 2days EFW: 1,943.21g, 4lb 4.84oz, 43.8% Composite Age: 32weeks 1day GEOVANI: 06/28/2023 Heart Rate: 147bpm Amniotic fluid index: 16.41cm. Visually, amount of fluid is within normal limits. IMPRESSION: 1. Single live intrauterine gestation as above. Estimated gestational age is 32 weeks 1 day. 2. Estimated weight is 1943gms. This is the 44th percentile. 3. Amniotic fluid index is 16.4 cm. Visually within normal limits. DATA REPOSITORY:
== END ==
PROVIDERS: PCP Nurse Practitioner Family; Visit Provider Advanced Practice Midwife
DX: Z34.93 Encounter for supervision of normal pregnancy, unspecified, third trimester (principal); Z3A.32 32 weeks gestation of pregnancy
CPT/HCPCS: 76816

== ENCOUNTER 2023-05-14 10:56 | Outpatient (CLI) | payer MEDICAID, SELFPAY ==
[2023-05-14 11:53] LABS: FREE T4 1.05 ng/dL (0.76-1.46); TSH 1.43 uIU/Ml (0.36-3.74)
== END 2023-05-14 10:57 | disposition home or self-care (01) ==
LOC: LBO 10:56
PROVIDERS: PCP Nurse Practitioner Family; Visit Provider Internal Medicine Endocrinology, Diabetes & Metabolism
DX: E89.0 Postprocedural hypothyroidism (principal)
CPT/HCPCS: 36415; 84439; 84443

== ENCOUNTER 2023-05-17 07:46 | Outpatient (CLI) | payer MEDICAID, SELFPAY ==
[2023-05-17] VITALS (8 sets, daily range): BP systolic 116; BP diastolic 67; PULSE 79–93; TEMP 36; O2SAT 96–98
--- NOTE | 2023-05-17 14:48 | W.OBNST ---
Date of service: 05/17/23 Time of Service: 14:48 NST Evaluation Reason for NST Reasons for Nonstress Test: GDM-INSULIN Gestational Age Gestational Age in Weeks and Days: 34 Weeks and 0Days Test and Monitor Explained Test/Monitor Explained: Test Explained and Monitor Explained Vital Signs Blood Pressure: 116/67 Pulse: 92 Temperature: 96.8 F NST Information Date on Monitor: 05/17/23 Time on Monitor: 13:13 Date off Monitor: 05/17/23 Time off Monitor: 13:49 Total Time on Monitor: 36 NST Interventions: PO Hydration NST Evaluation Patient States Movement: Present FHR Baseline: 145 Variability: Marked >25 bpm Accelerations: 10x10 Decelerations: None NST Results: Reactive Note Ultrasound Done: N/A. NST Note Note: Category 1, reactive nonstress test NST Reviewed and Verified by: Fiona Cespedes
== END 2023-05-17 13:55 | disposition home or self-care (01) ==
LOC: BCD 07:47 → OBS 13:05
PROVIDERS: PCP Nurse Practitioner Family; Visit Provider Obstetrics & Gynecology
DX: O24.414 Gestational diabetes mellitus in pregnancy, insulin controlled (principal); Z3A.34 34 weeks gestation of pregnancy
CPT/HCPCS: 59025

== ENCOUNTER 2023-05-20 08:36 | Outpatient (CLI) | payer MEDICAID, SELFPAY ==
[2023-05-20 13:07] VITALS: BP 119/65; PULSE 92; TEMP 36.7
[2023-05-20 13:20] VITALS: BP 119/65; PULSE 92
--- NOTE | 2023-06-09 12:46 | W.OBNST ---
Date of service: 05/20/23 Time of Service: 15:00 NST Evaluation Reason for NST Reasons for Nonstress Test: GDM-INSULIN Gestational Age Gestational Age in Weeks and Days: 37 Weeks and 0Days Test and Monitor Explained Test/Monitor Explained: Test Explained, Monitor Explained and Patient Verbalized Understanding Vital Signs Blood Pressure: 119/65 Pulse: 92 Temperature: 98.1 F NST Information Date on Monitor: 05/20/23 Time on Monitor: 13:05 Date off Monitor: 05/20/23 Time off Monitor: 13:35 Total Time on Monitor: 30 NST Interventions: None NST Evaluation Patient States Movement: Present FHR Baseline: 140 Variability: Moderate 6-25 bpm Accelerations: 15x15 Decelerations: None NST Results: Reactive Note Ultrasound Done: N/A. NST Note Note: Pt's CBGs have been within range. NST reactive. NST Reviewed and Verified by: Namita Stockton
[2023-06-09 12:48] VITALS: BP 119/65; PULSE 92; TEMP 36.7
== END 2023-05-20 13:45 | disposition home or self-care (01) ==
LOC: BCD 08:37 → OBS 13:05
PROVIDERS: PCP Nurse Practitioner Family; Referring Provider Obstetrics & Gynecology Gynecology; Visit Provider Obstetrics & Gynecology Gynecology
DX: O24.414 Gestational diabetes mellitus in pregnancy, insulin controlled (principal); Z3A.37 37 weeks gestation of pregnancy
CPT/HCPCS: 59025

== ENCOUNTER 2023-05-24 07:21 | Outpatient (CLI) | payer MEDICAID, SELFPAY ==
[2023-05-24 13:06] VITALS: BP 117/69; PULSE 83; TEMP 36.4
[2023-05-24 13:19] VITALS: BP 117/69; PULSE 83
--- NOTE | 2023-07-16 10:38 | PDOC.NST_ITS ---
Date of service: 07/16/23 Time of Service: 10:39 NST Evaluation Reason for NST Reasons for Nonstress Test: GDM-INSULIN Gestational Age Gestational Age in Weeks and Days: 38 Weeks and 3Days Test and Monitor Explained Test/Monitor Explained: Test Explained, Monitor Explained and Patient Verbalized Understanding Vital Signs Blood Pressure: 117/69 Pulse: 83 Temperature: 97.5 F NST Information Date on Monitor: 05/24/23 Time on Monitor: 13:11 NST Interventions: None NST Evaluation Patient States Movement: Present FHR Baseline: 135 Variability: Moderate 6-25 bpm Accelerations: 15x15 Decelerations: None NST Results: Reactive Note Ultrasound Done: N/A. NST Note Note: Reactive NST. Pt will be delivering at tertiary [facility]. No concerns today. NST Reviewed and Verified by: Namita Stockton
[2023-07-16 10:39] VITALS: BP 117/69; PULSE 83; TEMP 36.4
== END 2023-05-24 13:39 | disposition home or self-care (01) ==
LOC: BCD 07:23 → OBS 13:04
PROVIDERS: PCP Nurse Practitioner Family; Visit Provider Obstetrics & Gynecology Gynecology
DX: O24.414 Gestational diabetes mellitus in pregnancy, insulin controlled (principal); Z3A.34 34 weeks gestation of pregnancy
CPT/HCPCS: 59025

== ENCOUNTER 2023-05-26 10:11 | Outpatient (CLI) | payer MEDICAID, SELFPAY ==
[2023-05-26 10:27] VITALS: BP 120/75; PULSE 87
[2023-05-26 10:31] VITALS: BP 120/75; PULSE 87; TEMP 36.3
--- NOTE | 2023-06-03 01:09 | W.OBNST ---
Date of service: 05/26/23 Time of Service: 10:30 NST Evaluation Reason for NST Reasons for Nonstress Test: FALSE LABOR Reason for NST Other: Rule out labor Gestational Age Gestational Age in Weeks and Days: 36 Weeks and 0Days Test and Monitor Explained Test/Monitor Explained: Test Explained, Monitor Explained and Patient Verbalized Understanding Vital Signs Blood Pressure: 120/75 Pulse: 87 Temperature: 97.3 F Urine Results Urine Protein: Negative Urine Ketones: Negative Urine Glucose: Negative Urine Blood: Negative NST Information Date on Monitor: 05/26/23 Time on Monitor: Date off Monitor: 05/26/23 Time off Monitor: 10:39 Total Time on Monitor: 12 NST Interventions: None NST Evaluation Patient States Movement: Present FHR Baseline: 135 Variability: Moderate 6-25 bpm Accelerations: 15x15 Note Ultrasound Done: N/A. NST Note NST Reviewed and Verified by: Britt Us
[2023-06-03 01:10] VITALS: BP 120/75; PULSE 87; TEMP 36.3
== END 2023-05-26 10:50 ==
LOC: BCD 10:12 → OBS 10:17
PROVIDERS: PCP Nurse Practitioner Family; Visit Provider Obstetrics & Gynecology
DX: O24.414 Gestational diabetes mellitus in pregnancy, insulin controlled (principal); Z3A.37 37 weeks gestation of pregnancy
CPT/HCPCS: 59025; 87081

== ENCOUNTER 2023-05-27 09:09 | Outpatient (CLI) | payer MEDICAID, SELFPAY ==
[2023-05-27 10:36] VITALS: BP 118/67; PULSE 88; TEMP 36.7
[2023-05-27 10:50] VITALS: BP 118/67; PULSE 88
[2023-05-27 11:10] VITALS: BP 118/67; PULSE 88; TEMP 36.7
--- NOTE | 2023-05-27 11:10 | W.OBNST ---
Date of service: 05/27/23 Time of Service: 11:10 NST Evaluation Reason for NST Reasons for Nonstress Test: GDM-INSULIN Gestational Age Gestational Age in Weeks and Days: 35 Weeks and 3Days Test and Monitor Explained Test/Monitor Explained: Test Explained, Monitor Explained and Patient Verbalized Understanding Vital Signs Blood Pressure: 118/67 Pulse: 88 Temperature: 98.1 F NST Information Date on Monitor: 05/27/23 Time on Monitor: 10:30 Date off Monitor: 05/27/23 Time off Monitor: 10:50 Total Time on Monitor: 20 NST Interventions: None NST Evaluation Patient States Movement: Present FHR Baseline: 145 Variability: Moderate 6-25 bpm Accelerations: 15x15 Decelerations: None NST Results: Reactive Note Ultrasound Done: N/A. NST Note Note: Category 1, reactive nonstress test. NST Reviewed and Verified by: Fiona Cespedes
== END 2023-05-27 11:04 | disposition home or self-care (01) ==
LOC: BCD 09:10 → OBS 10:35
PROVIDERS: PCP Nurse Practitioner Family; Visit Provider Obstetrics & Gynecology
DX: O24.414 Gestational diabetes mellitus in pregnancy, insulin controlled (principal); Z3A.35 35 weeks gestation of pregnancy
CPT/HCPCS: 59025

== ENCOUNTER 2023-05-31 07:31 | Outpatient (CLI) | payer MEDICAID, SELFPAY ==
[2023-05-31 10:08] VITALS: BP 113/70; PULSE 96; TEMP 36.8
[2023-05-31 10:32] VITALS: BP 113/70; PULSE 96
--- NOTE | 2023-05-31 11:20 | W.OBNST ---
Date of service: 05/31/23 Time of Service: 11:21 NST Evaluation Reason for NST Reasons for Nonstress Test: GDM-INSULIN Gestational Age Gestational Age in Weeks and Days: 36 Weeks and 0Days Test and Monitor Explained Test/Monitor Explained: Test Explained, Monitor Explained and Patient Verbalized Understanding Vital Signs Blood Pressure: 113/70 Pulse: 96 Temperature: 98.2 F NST Information Date on Monitor: 05/31/23 Time on Monitor: 10:05 Date off Monitor: 05/31/23 Time off Monitor: 10:47 Total Time on Monitor: 42 NST Interventions: None NST Evaluation Patient States Movement: Present FHR Baseline: 140 Variability: Moderate 6-25 bpm Accelerations: 15x15 Decelerations: None NST Results: Reactive Note Ultrasound Done: N/A. NST Note Note: Category 1, reactive nonstress test NST Reviewed and Verified by: Fiona Cespedes
[2023-05-31 11:21] VITALS: BP 113/70; PULSE 96; TEMP 36.8
== END 2023-05-31 10:48 | disposition home or self-care (01) ==
LOC: BCD 07:38 → OBS 10:07
PROVIDERS: PCP Nurse Practitioner Family; Visit Provider Obstetrics & Gynecology
DX: O24.414 Gestational diabetes mellitus in pregnancy, insulin controlled (principal); Z3A.36 36 weeks gestation of pregnancy
CPT/HCPCS: 59025

== ENCOUNTER 2023-06-03 09:55 | Outpatient (CLI) | payer MEDICAID, SELFPAY ==
[2023-06-03 10:12] VITALS: BP 97/56; PULSE 110; TEMP 36.8
[2023-06-03 10:13] VITALS: BP 86/54; PULSE 109
[2023-06-03 10:14] VITALS: BP 97/56; PULSE 110
--- NOTE | 2023-06-09 12:50 | W.OBNST ---
Date of service: 06/09/23 Time of Service: 12:50 NST Evaluation Reason for NST Reasons for Nonstress Test: GDM-INSULIN Gestational Age Gestational Age in Weeks and Days: 37 Weeks and 0Days Test and Monitor Explained Test/Monitor Explained: Test Explained, Monitor Explained and Patient Verbalized Understanding Vital Signs Blood Pressure: 97/56 Pulse: 110 Temperature: 98.2 F NST Information Date on Monitor: 06/03/23 Time on Monitor: 10:08 Date off Monitor: 06/03/23 Time off Monitor: 10:30 Total Time on Monitor: 22 NST Interventions: None Contraction Frequency: 0 NST Evaluation Patient States Movement: Present FHR Baseline: 140 Variability: Moderate 6-25 bpm Accelerations: 15x15 Decelerations: None NST Results: Reactive Note Ultrasound Done: N/A. NST Note Note: reactive. Pt reports good glycemic control. NST Reviewed and Verified by: Namita Stockton
[2023-06-09 12:51] VITALS: BP 97/56; PULSE 110; TEMP 36.8
== END 2023-06-03 10:30 ==
LOC: BCD 09:58 → OBS 10:01
PROVIDERS: PCP Nurse Practitioner Family; Referring Provider Obstetrics & Gynecology Gynecology; Visit Provider Obstetrics & Gynecology Gynecology
DX: O47.03 False labor before 37 completed weeks of gestation, third trimester (principal); Z3A.36 36 weeks gestation of pregnancy
CPT/HCPCS: 59025

== ENCOUNTER 2023-06-07 04:48 | Outpatient (CLI) | payer MEDICAID, SELFPAY ==
[2023-06-07 10:20] VITALS: BP 111/66; PULSE 91; TEMP 36.6
[2023-06-07 10:31] VITALS: BP 111/66; PULSE 91
[2023-06-07 12:37] VITALS: BP 111/66; PULSE 91; TEMP 36.6
--- NOTE | 2023-06-07 12:37 | W.OBNST ---
Date of service: 06/07/23 Time of Service: 12:37 NST Evaluation Reason for NST Reasons for Nonstress Test: GDM-INSULIN Gestational Age Gestational Age in Weeks and Days: 37 Weeks and 0Days Test and Monitor Explained Test/Monitor Explained: Test Explained, Monitor Explained and Patient Verbalized Understanding Vital Signs Blood Pressure: 111/66 Pulse: 91 Temperature: 97.9 F Urine Results Urine Protein: Negative Urine Ketones: Negative Urine Glucose: Negative Urine Blood: Negative NST Information Date on Monitor: 06/07/23 Time on Monitor: 10:12 Date off Monitor: 06/07/23 Time off Monitor: 10:38 Total Time on Monitor: 26 NST Interventions: PO Hydration Contraction Frequency: 0 NST Evaluation Patient States Movement: Present FHR Baseline: 140 Variability: Moderate 6-25 bpm Accelerations: 15x15 Decelerations: None NST Results: Reactive Note Ultrasound Done: N/A. NST Note Note: Category 1, reactive NST. NST Reviewed and Verified by: Fiona Cespedes
== END 2023-06-07 10:42 ==
LOC: BCD 04:49 → OBS 10:07
PROVIDERS: PCP Nurse Practitioner Family; Visit Provider Obstetrics & Gynecology
DX: O24.414 Gestational diabetes mellitus in pregnancy, insulin controlled (principal); Z3A.37 37 weeks gestation of pregnancy
CPT/HCPCS: 59025

== ENCOUNTER 2023-06-10 08:12 | Outpatient (CLI) | payer MEDICAID, SELFPAY ==
[2023-06-10 09:55] VITALS: BP 125/88; PULSE 100; TEMP 36.7
[2023-06-10 10:17] VITALS: BP 125/88; PULSE 100
--- NOTE | 2023-06-10 11:53 | W.OBNST ---
Date of service: 06/10/23 Time of Service: 11:00 NST Evaluation Reason for NST Reasons for Nonstress Test: GDM-INSULIN Gestational Age Gestational Age in Weeks and Days: 37 Weeks and 3Days Test and Monitor Explained Test/Monitor Explained: Test Explained, Monitor Explained and Patient Verbalized Understanding Vital Signs Blood Pressure: 125/88 Pulse: 100 Temperature: 98.1 F NST Information Date on Monitor: 06/10/23 Time on Monitor: 09:56 Date off Monitor: 06/10/23 Time off Monitor: 10:45 Total Time on Monitor: 49 NST Interventions: PO Hydration and Reposition Patient NST Evaluation Patient States Movement: Present FHR Baseline: 140 Variability: Moderate 6-25 bpm Accelerations: 15x15 Decelerations: None Note Ultrasound Done: N/A. NST Note Note: Pt reports normal finger sticks. She says she has general pelvic pain especially when walking and on her feet more. She requests a pelvic exam and cervix was closed. No bleeding or LOF. Good movement. She returns for NST next week and has an induction scheduled at [facility] in 11 days. NST Reviewed and Verified by: Britt Us
[2023-06-10 11:58] VITALS: BP 125/88; PULSE 100; TEMP 36.7
[2023-06-10 20:19] VITALS: PULSE 93; O2SAT 98
== END 2023-06-10 11:01 | disposition home or self-care (01) ==
LOC: BCD 08:14 → OBS 09:53
PROVIDERS: PCP Nurse Practitioner Family; Visit Provider Obstetrics & Gynecology
DX: O24.414 Gestational diabetes mellitus in pregnancy, insulin controlled (principal); Z3A.37 37 weeks gestation of pregnancy
CPT/HCPCS: 59025

== ENCOUNTER 2023-06-14 07:01 | Outpatient (CLI) | payer MEDICAID, SELFPAY ==
[2023-06-14 10:07] VITALS: BP 126/69; PULSE 97; TEMP 36.5
[2023-06-14 10:12] VITALS: BP 126/69; PULSE 97
--- NOTE | 2023-06-14 17:34 | W.OBNST ---
Date of service: 06/14/23 Time of Service: 10:30 NST Evaluation Reason for NST Reasons for Nonstress Test: GDM-INSULIN Gestational Age Gestational Age in Weeks and Days: 38 Weeks and 0Days Test and Monitor Explained Test/Monitor Explained: Test Explained and Monitor Explained Vital Signs Blood Pressure: 126/69 Pulse: 97 Temperature: 97.7 F Urine Results Urine Protein: Negative Urine Ketones: Negative Urine Glucose: Negative Urine Blood: Negative NST Information Date on Monitor: 06/14/23 Time on Monitor: 10:05 Date off Monitor: 06/14/23 Time off Monitor: 10:29 Total Time on Monitor: 24 NST Interventions: None NST Evaluation Patient States Movement: Present FHR Baseline: 140 Variability: Moderate 6-25 bpm Accelerations: 15x15 Decelerations: None NST Results: Reactive Note Ultrasound Done: N/A. NST Note NST Reviewed and Verified by: Britt Us
[2023-06-14 17:35] VITALS: BP 126/69; PULSE 97; TEMP 36.5
== END 2023-06-14 10:35 | disposition home or self-care (01) ==
LOC: BCD 07:02 → OBS 10:06
PROVIDERS: PCP Nurse Practitioner Family; Visit Provider Obstetrics & Gynecology
DX: O24.414 Gestational diabetes mellitus in pregnancy, insulin controlled (principal); Z3A.38 38 weeks gestation of pregnancy
CPT/HCPCS: 59025

== ENCOUNTER 2023-06-17 04:58 | Outpatient (CLI) | payer MEDICAID, SELFPAY ==
[2023-06-17 10:39] LABS: FREE T4 1.08 ng/dL (0.76-1.46)
--- NOTE | 2023-06-17 12:08 | W.OBNST ---
Date of service: 06/17/23 NST Evaluation Gestational Age Gestational Age in Weeks and Days: 38 Weeks and 3Days
--- NOTE | 2023-06-17 17:02 | W.OBNST ---
Date of service: 06/17/23 Time of Service: 10:00 NST Evaluation Reason for NST Reasons for Nonstress Test: GDM- PO MEDICATION Gestational Age Gestational Age in Weeks and Days: 38 Weeks and 3Days Vital Signs Blood Pressure: 117/72 NST Information Date on Monitor: 06/17/23 Time on Monitor: 10:00 NST Evaluation FHR Baseline: 135 Variability: Moderate 6-25 bpm Accelerations: 15x15 Decelerations: None NST Results: Reactive Note Ultrasound Done: N/A. NST Note Note: See records. NST Reviewed and Verified by: Britt Us
[2023-06-17 17:03] VITALS: BP 117/72
== END 2023-06-17 04:59 | disposition home or self-care (01) ==
PROVIDERS: PCP Nurse Practitioner Family; Visit Provider Internal Medicine Endocrinology, Diabetes & Metabolism
DX: E89.0 Postprocedural hypothyroidism (principal)
CPT/HCPCS: 36415; 84439; 84443

== ENCOUNTER 2023-06-17 07:25 | Outpatient (CLI) | payer MEDICAID, SELFPAY ==
[2023-06-17 09:51] VITALS: BP 117/72; PULSE 96; TEMP 36.8
[2023-06-17 10:16] VITALS: BP 117/72; PULSE 96
== END 2023-06-17 10:50 | disposition home or self-care (01) ==
LOC: BCD 07:26 → OBS 09:50
PROVIDERS: PCP Nurse Practitioner Family; Visit Provider Obstetrics & Gynecology
DX: O24.415 Gestational diabetes mellitus in pregnancy, controlled by oral hypoglycemic drugs (principal); Z3A.38 38 weeks gestation of pregnancy
CPT/HCPCS: 59025

== ENCOUNTER 2023-07-27 10:32 | Outpatient (CLI) | payer MEDICAID, SELFPAY ==
[2023-07-27 10:51] LABS: FREE T4 1.52 ng/dL (0.76-1.46); TSH 0.03 uIU/Ml (0.36-3.74)
== END 2023-07-27 10:33 | disposition home or self-care (01) ==
LOC: LBO 10:33
PROVIDERS: PCP Nurse Practitioner Family; Visit Provider Internal Medicine Endocrinology, Diabetes & Metabolism
DX: E89.0 Postprocedural hypothyroidism (principal)
CPT/HCPCS: 36415; 84439; 84443

== ENCOUNTER 2023-08-13 02:53 | Outpatient (CLI) | payer MEDICAID, SELFPAY ==
[2023-08-13 12:05] LABS: GTT Comment See Comments
[2023-08-13 13:07] LABS: FREE T4 1.19 ng/dL (0.76-1.46); TSH 0.04 uIU/Ml (0.36-3.74)
== END 2023-08-13 02:54 | disposition home or self-care (01) ==
LOC: LBO 02:53
PROVIDERS: Internal Medicine Endocrinology, Diabetes & Metabolism; PCP Nurse Practitioner Family; Visit Provider Obstetrics & Gynecology
DX: Z86.32 Personal history of gestational diabetes (principal); Z39.2 Encounter for routine postpartum follow-up
CPT/HCPCS: 36415; 82951; 84439; 84443

== ENCOUNTER 2023-12-04 19:55 | Emergency (ER) | payer MEDICAID, SELFPAY ==
--- NOTE | 2023-12-04 19:59 | W.ED.GENAD ---
Discharge Plan Disposition Patient Disposition: Home Discharge Details Clinical Impression: Vulvovaginal candidiasis Primary Care Provider: DAYAN MOJICA ED Provider: Afsaneh Crabtree Home Meds and New Rx's Prescriptions: Continued levothyroxine 150 mcg tablet 250 mcg PO DAILY Patient Comments: pt reports she is taking 250 mcg valacyclovir [Valtrex] 500 mg tablet 500 mg PO DAILY Qty: 90 4RF levonorgestrel-ethinyl estrad 0.1-20 mg-mcg tablet 1 tab PO DAILY Qty: 84 6RF Rx Instructions: Skip the placebo pills and start the next pack right away to use in a continuous fashion. ProAir RespiClick 90 mcg/actuation aerosol powdr breath activated 2 inh inhalation Q6H PRN (Reason: shortness of breath or wheezing) Qty: 1 0RF acetaminophen 500 mg tablet 500 mg PO Q6H PRN (Reason: pain) Qty: 60 2RF sucralfate [Carafate] 1 gram tablet 1 g PO Q6H Discharge Instructions Additional Instructions: You are treated with a one-time dose of Diflucan for treatment of yeast infection. A swab was sent for BV/trichomoniasis/Meme. Results should be available in the next couple of days. We will call you if there is any other treatment required. Please do not use any potentially irritating soaps in your groin area. Please use unscented products down there as well. Cotton, breathable underwear is recommended. I recommend that you follow-up with [facility] if you are not feeling significantly better after the next couple of days. Return to emergency care if you develop severe abdominal pain, uncontrollable vomiting, inability to urinate, or if you are very worried and need to be rechecked again immediately Referrals: [facility] [Provider Group] HPI General Date/Time Provider Initiated Documentation: 12/04/23 19:57. HPI Narrative: Ca is a 28 year old female who presents to the emergency department today for evaluation of vaginal irritation. She reports that for the last couple of days she has had thick white vaginal discharge and vulvar irritation. She believes this may be related to one of a few possible causes including increased frequency of intercourse, using a new soap in her genital area, and standing on her feet a lot for work, and recent vibrator use. Today she took 1 dose of Monistat which usually works for her, but this time it caused her more irritation. She denies associated fever/chills, nausea/vomiting, change in p.o. intake, dysuria, flank pain, change in bowel or bladder function. Denies history of STDs other than herpes, no recent outbreaks. She has no mutually monogamous relationship. Denies history of diabetes or immunocompromise. Physical exam reassuring. Abdomen is soft, nondistended, nontender to palpation. Speculum exam performed with enrollment consultant in room. Thick white discharge noted, likely due to Monistat. A vaginal pathogen specimen was sent out. Declined GC swap. DDx includes but is not limited to: yeast infection, BV, trichomoniasis I independently interpreted the following tests: hCG negative. I did review gynecology notes from [facility]. She was last seen by her [employer] OPERATOR on 11/18/2023 for menorrhagia, switched to continuous use of OCPs. A0, gave vaginally on 06/21/23 at 39 weeks, h/o gestational diabetes. Will treat with Diflucan for likely vulvovaginal irritation/Meme. Recommend follow-up with [facility] if symptoms not significantly improved. Vaginal pathogens swab results will be available in the next couple of days. Reviewed symptomatic management, as well as red flags indicating need for return to emergency care. Related Data Home Medications ?Medication ?Instructions ?Recorded ?Confirmed acetaminophen 500 mg tablet 500 mg PO Q6H PRN pain #60 tabs 03/10/22 12/04/23 levothyroxine 150 mcg tablet 250 mcg PO DAILY 02/08/23 12/04/23 sucralfate 1 gram tablet (Carafate) 1 g PO Q6H 03/16/23 12/04/23 valacyclovir 500 mg tablet 500 mg PO DAILY #90 tabs 05/04/23 12/04/23 (Valtrex) albuterol sulfate 90 mcg/actuation 2 inh inhalation Q6H PRN shortness 05/17/23 12/04/23 breath activated powder inhaler of breath or wheezing #1 ea (ProAir RespiClick) levonorgestrel-ethinyl estradiol 1 tab PO DAILY #84 tabs 11/18/23 12/04/23 0.1 mg-20 mcg tablet Previous Rx's ?Medication ?Instructions ?Recorded acetaminophen 500 mg tablet 500 mg PO Q6H PRN pain #60 tabs 03/10/22 valacyclovir 500 mg tablet 500 mg PO DAILY #90 tabs 05/04/23 (Valtrex) albuterol sulfate 90 mcg/actuation 2 inh inhalation Q6H PRN shortness 05/17/23 breath activated powder inhaler of breath or wheezing #1 ea (ProAir RespiClick) levonorgestrel-ethinyl estradiol 1 tab PO DAILY #84 tabs 11/18/23 0.1 mg-20 mcg tablet Allergies Allergy/AdvReac Type Severity Reaction Status Date / Time No Known Allergies Allergy Verified 12/04/23 20:08 General JEANETTE: 3 Review of Systems Narrative: see HPI Exam Const General: cooperative, healthy appearing, comfortable, no acute distress, well developed and well groomed Nutritional Appearance: average body habitus Resp Effort & Inspection: normal respiratory effort and able to speak in complete sentences GI Inspection: normal to inspection and non-distended Palpation: soft, not firm, no guarding, not rigid and nontender External Female Exam: normal external appearance and normal appearance of the urethra Speculum Exam - Vagina: normal appearance of the vagina, abnormal vaginal discharge white, erythematous (mild), no foreign bodies, no lacerations, No vaginal bleeding, No tissue present in vagina, no masses and no swelling OB/External & Speculum: no foreign bodies, no tissue noted in vagina and No vaginal bleeding Extrem Right lower extremity: full ROM Left lower extremity: full ROM Medical Decision Making Quality:SDOH Health Related Social Needs: No Data to Display PFSH All Active Problems (Updated 12/04/23 @ 21:50 by Afsaneh Mishra) Vulvovaginal candidiasis (Acute) Hypothyroidism (Chronic) see Carlos Nuñez MD, diagnosed age 12, graves disease Medical History (Updated 12/04/23 @ 21:50 by Afsaneh Mishra) Hx of Helicobacter infection History of Graves' disease History of marijuana use Carpal tunnel syndrome, left H/O cold sores De Quervain's tenosynovitis, left Elevated liver enzymes Fatty liver incidental finding, patient reports she was heavy drinker in past and is aware of this finding Recurrent genital HSV (herpes simplex virus) infection History of gestational diabetes Will need 2hr GTT 8wks pp - end of July Right flank pain renal scan is nml, problem resolved Heavy alcohol use ages [age], Depression ADHD (attention deficit hyperactivity disorder) evaluation Cholangitis due to bile duct calculus with obstruction Choledocholithiasis with obstruction History of radioactive iodine thyroid ablation age 14 Asthma Surgical History (Updated 07/05/23 @ 15:38 by Britt Us MD) Carpal tunnel syndrome, right S/P ECTR: 03/10/2022 De Quervain's tenosynovitis, right S/P Release: 03/10/2022 History of carpal tunnel surgery of right wrist History of esophagogastroduodenoscopy (EGD) (~06/2020) H/O endoscopic retrograde cholangiopancreatography (~06/17/20) History of cholecystectomy (~02/15/20) Family History Father Yanira's disease Hypertension Diabetes Mother Hypertension Retinal disease Kidney stones Brother Autism Retinal disease Oppositional defiant behavior Brother Retinal disease Brother Autism half brother Niece Autism high functioning Nephew Autism Social History Smoking/Tobacco Use Status: Never Smoking risk assessment performed?: Yes Alcohol Intake: former Details: heavy drinking age [age]. Denies use now. Drug use: Current Sobriety Substance use type: former substance user Details: Not since finding out about Housing: apartment Current gender identity: female Do you feel safe at home: Yes Do you feel safe in your relationship?: Yes Female Reproductive History Menstrual control method: none History History 3 Para 3 Hx # Term Pregnancies 3 Multiple births 0 Hx # Pregnancies 0 Ectopic pregnancies 0 AB induced 0 Hx Number of Living Children 3 AB spontaneous 0 Past Pregnancies Del. Date GA/Weeks # Preg Succ Route Wgt Sex Labor Lgth Anesthesia Location Prov Complic 08/08/17 40 No vaginal 3827.186 g Female [facility], vanishing twin 08/07/21 39 No Yes 3456 g [facility] 06/21/23 39 Yes vaginal 3316.894 g Female [facility] Delivery Date: 08/08/17 Last Updated by: Sarah Doherty Spont labor, epidural, Jailyn Delivery Date: 08/07/21 Last Updated by: Sarah Doherty GDM, GHTN, IOL, epidural worked poorly. Luanne Delivery Date: 06/21/23 Last Updated by: MD Julia Casey
[2023-12-04 20:03] VITALS: BP 138/97; PULSE 70; RESP 16; TEMP 36.6; O2SAT 98
--- OUTSIDE RECORDS SUMMARY | 2023-12-04 20:12 | XMS_ITS | Encounter Summary ---
Author Organization [facility] [place] [address] Care Team Providers Care Microsoft Crm Developer Name Role Phone Marva Hitchcock MD Primary Care Provider [phone] Reason for Visit * Auth/Cert (Routine) Specialty Diagnoses / Procedures Referred By Eugene t Referred To Contact Diagnoses Encounter for planned induction of labor Procedures VAGINAL DELIVERY Tawana Simons MD [facility]STETR[facility] [place] [address] [facility] Referral ID Status Reason Start Date Expiration Date Visits Re quested Visits Authorized [id number] 1 1 Encounter Details Date Type Department Care Team (Late st Contact Info) Description 06/21/2023 3:19 PM EDT [place] [id number] Cheryle Cook MD [facility] [place] [address] Anesthesia Record Procedure Summary Procedure Name Responsible Anesthesiologist Anesthesia Start Time Anesthesia Stop Time Labor Analgesia (proc) Events Date Time Event Comment 06/21/2023 1537 AN Verify 1552 Labor Neuraxial Meds * Agents No agents on file. * Blood No blood administrations on file. Lines, Drains, and Airways Type Details Placement Removal Epidural 06/21/23; 1537 (crea milan via procedure documentation); no longer indicated; Bruising at site, Catheter intact, No complications; 06/21/23; 210906/21/23 1537 by Chloe Ambrocio MD 06/21/232109 by Malia Osman RN documented in this encounter Social History Tobacco Use Types Packs/Day Years Used Date Smoking Tobacco: Former Smokeless Tobacco: Never Alcohol Use Standard Drinks/Week Comments Not Currently 0 (1 standard drink = 0.6 oz pur e alcohol) DH IPV Inpatient Questions Answer Date Recorded Does Anyone Try to Keep You From Having Contact with Others or Doing Things Outside Your Home? unable to answer (comment required) 06/21/2023 Feels Threatened by Someone unable to an swer (comment required) 06/21/2023 Feels Unsafe at Home or Work/School unab le to answer (comment required) 06/21/2023 Physical Signs of Abuse Present no 06/21/2023 Sex and Gender Information Value Date Recorded Sex Assigned at Female 03/20/2021 11:17 AM EST Gender Identity Not on file Sexual Orientation Not on file documented as of this encounter OR Notes * Anesthesia Postprocedure Evaluation - Eliot Cervantes MD - 06/24/2023 8:13 AM EDT Department of Anesthesiology Post-procedure Note Patient: Tiny Cline Procedure Summary Date: 06/21/23 Room / Location: Anesthesia Start: Anesthesia Stop: Procedure: Labor Analgesia (proc) Diagnosis: Scheduled Providers: Responsible Provider: Anesthesia Type: epidural ASA Status: 3 All Anesthesia Providers: No anesthesia staff entered. Vitals Value Taken Time BP Temp Pulse Resp SpO2 Pain Level Patient Location: Level of Consciousness: Pain Management: PONV: Cardiovascular Status: Respiratory Status: Postoperative Fluid Status: Possible Anesthetic Complications: Final Primary Anesthesia Type: Epidural (The anesthetic type performed was the same as planned.) Comments: Attempted to contact patient by phone regarding labor analgesia provided during recent admission with no answer. Patient received epidural analgesia, placed on 06/20 and removed on 06/21. Patient met criteria for discharge and was discharged on 06/21. * Anesthesia Procedure Notes - Chloe Ambrocio MD - 06/21/2023 4:04 PM EDT Associated Order(s): Neuraxial for Labor Only Procedure: Labor Analgesia Neuraxial Block Labor Analgesia Type: Epidural The patient was greeted. The sedation plan, its benefits, risks and alternatives were discussed with the patient. The patient has consented to the procedure. The medical history and chart were reviewed. The timeout was performed. Start time: 06/21/2023 3:37 PM End time: 06/21/2023 4:04 PM Patient [facility] Patient Prep Position: Sitting Prep: Chlorhexidine, Patient Draped, gown, Hand Hygiene, Hat, Mask and Sterile Gloves Injection technique: continuous Procedure Technique Level of needle insertion: L3-4 Needle approach: midline Needle Type: Tuohy and [employer]ac[employer] Gauge: 25 and 17 Needle length: 4.5 in and 3.5 in Needle insertion depth when SEBAS achieved: 7.5 cm Technique for Loss of Resistance: SEBAS saline A 19G Flex-Tip epidural catheter was inserted into the space Catheter at skin depth: 13 cm Dressing/Secured with: Chlorhexidine Tegaderm and Tape Number of attempts: 2 Test dose Lidocaine 1.5% w/Epinephrine 1:2000,000 3mL Events/Notes Events: None Additional Notes: Technically straightforward procedure. 1st attempt met with R sided paresthesia, redirected more to left. No persistent pain or paresthesias noted. Satisfying loss of resistance with placement of Chatman/Tuohy needle. Positive return of CSF after dural puncture with [employer]ac[employer] needle. Epidural catheter easily threaded. Epidural pump connected after bolusing 10ccs of epidural solution off the bag. Patient educated on use of PCEA/PIEB pump. Chloe Ambrocio MD Performed by: Resident/JAILER/TRAINING OFFICER: Chloe Ambrocio MD Attending Physician: Ely Corona MD Authorized by: Ely Corona MD ~~~~~~~~~~~~~~~~~~~~~~~~~~~~~~~~~~~~~~~~~~~~~~~~~~~~~~~~~~~~ * Anesthesia Preprocedure Evaluation - Teveris, Cheryle G, MD - 06/21/2023 3:20 PM EDT Pre-Anesthesia Evaluation for: Tiny Cline a 27 y.o. female. Patient Active Problem List Diagnosis Date Noted *Encounter for planned induction of labor 06/21/2023 Thyroid disease affecting 06/03/2023 Maternal morbid obesity in third trimester, antepartum 05/06/2023 Past Medical History: Diagnosis Date Asthma triggers; cold temp, URI, exercise Genital HSV Graves disease teenager. Treated with thyroidectomy Obesity Past Surgical History: Procedure Laterality Date CHOLECYSTECTOMY 2019 at [facility] PRO BILIARY ENDOSCOPY, PERCUT, W/REM, STONE(S) N/A 06/17/2020 CHOLEDOCHOSCOPY, REMOVAL OF CALCULUS\CALCULI (WRVU 9.05) performed by William Lorenzo MD at [facility] ENDOSCOPY PRO ERCP, SPHINCTEROTOMY 06/17/2020 ERCP W/SPHINCTEROTOMY/PAPILLOTOMY performed by William Lorenzo MD at [facility] ENDOSCOPY PRO ERCP, W/REMOVAL STONE, HARDEEP/PANCR DUCTS 06/17/2020 ERCP W/REMOVAL CALCULI/DEBRIS FROM BILARY/PANCREATIC DUCT(S) performed by William Lorenzo MD at [facility] ENDOSCOPY PRO ERCP,DIAGNOSTIC N/A 06/17/2020 ERCP performed by William Lorenzo MD at [facility] ENDOSCOPY PRO FRAGMENT KIDNEY STONE/ ESWL Bilateral 06/17/2020 LITHOTRIPSY-HARDEEP (WRVU 9.77) performed by William Lorenzo MD at [facility] ENDOSCOPY Social History Tobacco Use Smoking status: Former Smokeless tobacco: Never Substance Use Topics Alcohol use: Not Currently Social History Substance and Sexual Activity Drug Use Not Currently Allergies Allergen Reactions Loracarbef Nausea And Vomiting Medications: MAR and/or home medications have been reviewed. Physical Exam: Preprocedure Vitals Current as of 06/21/23 1229 BP: Pulse: Resp: 20 SpO2: 97 Temp: 36.8 ??C (98.2 ??F) Height: 160 cm (5' 3) (06/21/23) Weight: 122.3 kg (269 lb 11.2 oz) (06/21/23) BMI: 47.77 IBW: 52.4 kg (115 lb 7.7 oz) Last edited 06/21/23 1143 by EL Currently displaying vitals information from multiple entries within 180 minutes of most recent vitals. Airway Assessment: Mallampati: II TM distance: >3 FB Neck ROM: full Cardiovascular Assessment: system normal Pulmonary Assessment: pulmonary exam normal Dental Assessment: Misc Assessment: IV access: Peripheral line Last Filed Perioperative Cognitive Screening None Anesthesia Plan: ASA 3 epidural, 27 y.o. Body mass index is 47.78 kg/m??. female at 39w0d presents for IOL. History significant for GDMA2, elevated BMI, Graves disease on thyroid replacement, and gestationalHTN. No contraindication to a neuraxial technique. Most recent epidural was one sided, replaced and again one sided. Well functioning epidural with her first delivery. Patient is planning on an epidural for labor. Lab Results Component Value Date HGB 11.6 03/30/2023 Lab Results Component Value Date PLATELET 289 03/30/2023 Lab Results Component Value Date ABORH O POSITIVE 12/14/2022 Discussed options for labor analgesia and potential need for anesthesia for section including epidural, spinal, combined spinal/epidural, and general anesthesia. Risks/benefits discussed; questions answered. Consent obtained. Edward Lozada MD 06/21/2023 Clinical Social Work Aide Pager #[phone] 3:21 PM 06/21/23 update: patient requesting labor epidural. No concerning changes since last evaluation Region - Other Informed Consent: Anesthetic plan and risks discussed with patient. Use of blood products discussed with patient who consented to blood products. Plan discussed with attending and resident. Anesthesia Screening documented in this encounter Plan of Treatment Not on file documented as of this encounter Procedures Procedure Name Priority Date/Time Associated Diagnosis Comments [id number] Routine 06/21/2023 4:04 PM EDT documented in this encounter Results * [id number] (06/21/2023 4:04 PM EDT) Narrative Ely Corona MD - 06/21/2023 4:04 PM EDT Chloe Ambrocio MD ? 06/21/2023 ??4:06 PM Procedure: ?? Labor Analgesia Neuraxial Block Labor Analgesia Type: Epidural The patient was greeted. The sedation plan, its benefits, risks and alternatives were discussed with the patient. ??The patient has consented to the procedure. ??The medical history and chart were reviewed. ??The timeout was performed. Start time: 06/21/2023 3:37 PM End time: 06/21/2023 4:04 PM Patient Location: [facility] [place] Patient Prep Position: Sitting Prep: Chlorhexidine, Patient Draped, gown, Hand Hygiene, Hat, Mask and Sterile Gloves Injection technique: continuous Procedure Technique Level of needle insertion: L3-4 Needle approach: midline Needle Type: Tuohy and [employer]ac[employer] Gauge: 25 and 17 Needle length: 4.5 in and 3.5 in Needle insertion depth when SEBAS achieved: 7.5 cm Technique for Loss of Resistance: SEBAS saline A 19G Flex-Tip epidural catheter was inserted into the space Catheter at skin depth: 13 cm Dressing/Secured with: Chlorhexidine Tegaderm and Tape Number of attempts: 2 Test dose Lidocaine 1.5% w/Epinephrine 1:2000,000 3mL Events/Notes Events: ??None Additional Notes: ??Technically straightforward procedure. 1st attempt met with R sided paresthesia, redirected more to left. ??No persistent pain or paresthesias noted. Satisfying loss of resistance with placement of Chatman/Tuohy needle. Positive return of CSF after dural puncture with [employer] needle. Epidural catheter easily threaded. Epidural pump connected after bolusing 10ccs of epidural solution off the bag. Patient educated on use of PCEA/PIEB pump. ?? Chloe Ambrocio MD Performed by: ?? Resident/JAILER/TRAINING OFFICER: ? Chloe Ambrocio MD ?? Attending Physician: ? Ely Corona MD Authorized by: Ely Corona MD ?? ~~~~~~~~~~~~~~~~~~~~~~~~~~~~~~~~~~~~~~~~~~~~~~~~~~~~~~~~~~~~ Ely Corona MD A/C TECH CHGS documented in this encounter Visit Diagnoses Not on filedocumented in this encounter Care Teams Microsoft Crm Developer Relationship Specialty Start Date End Date Mavra Hitchcock MD [address] [place] [phone] PCP - General Family Medicine 06/17/20 documented as of this encounter
--- OUTSIDE RECORDS SUMMARY | 2023-12-04 20:12 | XMS_ITS | Clinical Summary ---
Author Organization Formerly [facility], [facility] Address [facility] [place] [address] Care Team Providers Care In [employer] Name Role Phone Marva Hitchcock MD Primary Care Provider Allergies Active Allergy Reactions Criticality Noted Date Comments Loracarbef Nausea And Vomiting 12/11/2010 Medications Medication Sig Dispensed Refills Start Date End Date Status albuteroL 90 mcg/actuation HFA Aerosol Inhaler Inhale 2 puffs into the lungs Every 4 hours as needed. 09/13/2019 Active levothyroxine (Synthroid) 50 mcg Tablet Take 50 mcg by mouth Daily. 12/16/2020 Active pantoprazole EC (Protonix) 40 mg Tablet, Delayed Release (E.C.) TAKE ONE TABLET BY MOUTH EVERY DAY 02/13/2021 Active Vitamin Plus Low Iron 27 mg iron- 1 mg Tablet TAKE ONE TABLET BY MOUTH ONCE DAILY. TAKE WITH A MEAL/SNACK. 02/05/2021 Active valACYclovir (Valtrex) 500 mg Tablet Take 500 mg by mouth daily. 03/15/2020 Active levothyroxine (Synthroid) 200 mcg Tablet Take 200 mcg by mouth daily. Active magnesium oxide (Mag-Ox) 400 mg (241.3 mg magnesium) Tablet Take 1 tablet by mouth 2 times daily. 04/21/2023 Active aspirin EC 81 mg EC (DR) tablet Take 81 mg by mouth 2 times daily. Active acetaminophen (Tylenol) 325 mg tablet Take 2 tablets by mouth every 6 hours as needed for Pain. 06/22/2023 Active calcium carbonate (TUMS) 200 mg calcium (500 mg) chewable tablet Take 2 tablets by mouth every 4 hours as needed for Heartburn. 06/22/2023 Active ibuprofen (Advil) 600 mg tablet Take 1 tablet by mouth every 6 hours as needed for Pain. 06/22/2023 Active polyethylene glycoL (Miralax) 17 gram oral powder packet Take 17 g by mouth daily as needed. 06/22/2023 Active simethicone (Gas-X Chew) 80 mg chewable tablet Take 1 tablet by mouth 4 times daily as needed. 06/22/2023 Active Active Problems Problem Noted Date Diagnosed Date Encounter for planned induction of labor 024 Thyroid disease affecting 06/03/2023 Maternal morbid obesity in third trimester, ante 05/06/2023 Social History Tobacco Use Types Packs/Day Years [...] on file Sexual Orientation Not on file Last Filed Vital Signs Vital Sign Reading Time Taken Comments Blood Pressure 106/63 06/22/2023 7:30 AM EDT Pulse 86 06/22/2023 12:13 AM EDT Temperature 36.4 ??C (97.5 ??F) 06/22/2023 7:30 AM ED T Respiratory Rate 16 06/22/2023 7:30 AM EDT Oxygen Saturation 97% 06/22/2023 7:30 AM EDT Inhaled Oxygen Concentration - - Weight 122.3 kg (269 lb 11.2 oz) 2023 11:43 AM EDT Height 160 cm (5' 3) 06/21/2023 11:43 AM EDT Body Mass Index 47.78 06/21/2023 11:43 AM EDT Plan of Treatment Health Maintenance Due Date Last Done Comments HIV screen 09/27/2011 Hepatitis C Screening 09/27/2011 Lipid Screening 09/27/2011 Hepatitis B vaccine (0-59 yrs) (1) 2012 Tetanus/Diphtheria/Pertussis Vaccines (1 - Tdap) 09/26 HPV test 09/27/2023 PAP Smear 09/27/2023 Covid-19 Vaccine (1 - season) 2023 Influenza (Flu) vaccine (1 o f 1 - Influenza standard series) 10/31/2023 Advance Directives * Attempt Cardiopulmonary Resuscitation - Inpatient (Latest Code Status on File) Date Activated Date Inactivated Comments 06/21/2023 11:29 AM 06/22/2023 10:30 PM Question Answer Comments Code Status decision made by: Patient Care Teams In [place] [employer] Relationship Specialty Start Date End Date Marva Hitchcock MD [address] [place] [phone] PCP - General Family Medicine 06/17/20
--- OUTSIDE RECORDS SUMMARY | 2023-12-04 20:12 | XMS_ITS | Encounter Summary ---
Author Organization [facility] [place] [address] Care Team Providers Care Senior Tax Accountant Name Role Phone Marva Hitchcock MD Primary Care Provider [phone] Reason for Visit * Auth/Cert (Routine) Specialty Diagnoses / Procedures Referred By Contxiomara t Referred To Contact Diagnoses Encounter for planned induction of labor Procedures VAGINAL DELIVERY Tawana Simons MD [facility] [place] [address] [facility] Referral ID Status Reason Start Date Expiration Date Visits Re quested Visits Authorized [id number] 1 1 Encounter Details Date Type Department Care Team (Latest Contact Info) Description 06/21/2023 11:12 AM EDT - 06/22/2023 8:29 PM EDT [place] [address] Tawana Simons MD [facility] [place] [address] Encounter for planned induction of labor Discharge Disposition: Home Social History Tobacco Use Types Packs/Day Years Used Date Smoking Tobacco: Former Smokeless Tobacco: Never Alcohol Use Standard Drinks/Week Comments Not Currently 0 (1 standard drink = 0.6 oz pur e alcohol) [facility] Inpatient Questions Answer Date Recorded Does Anyone [...] on file documented as of this encounter Last Filed Vital Signs Vital Sign Reading [...] Mass Index 47.78 06/21/2023 11:43 AM EDT documented in this encounter Discharge Summaries * Rain Wilson, - 06/22/2023 10:17 AM EDT Images from the original note were not included. Discharge Summary Patient Name: Tiny Cline Patient Age: 27 y.o. Language: Chinese Race: White Ethnicity: Not nor Admit date: 06/21/2023 Discharge date and time: 06/22/23 10:17 AM Attending Physician: Tawana Simons MD Discharge Physician: Dr. Ariel Larsen Care Provider: [facility] Referring Hospital: [facility] Follow-up Recommendations for Providers: - 2 week mood check - 6 week visit and GTT Inpatient Provider Contact Information: [facility] [employer] Department, Discharge Diagnoses (Hospital Problems) and Secondary Diagnoses (Chronic Problems) Active Hospital Problems Diagnosis Encounter for planned induction of labor Resolved Hospital Problems No resolved problems to display. Active Non-Hospital Problems Diagnosis Thyroid disease affecting Maternal morbid obesity in third trimester, antepartum Operations/Major Procedures: None Indication for Admission: IOL in the setting of A2GDM History of Presentation: HPI: Tiny is ready to get her induction started! Here with her mom partner and two children. Denies VB, LOF. Is feeling the baby move around well. Denies TRIVEDI, vision changes, SOB, RUQ pain, new onset swelling. Her has been complicated by the following: GDMA2 16u NPH QHS Grave's disease S/p thyroid ablation Synthroid 250mcg QD HSV Has been on Valtrex since approx 36w, no active lesions at the moment per patient Asthma, mild intermittent Rare albuterol inhaler use Hx gHTN in prior Admission [facility] labs ordered Transfer of care [facility] Delivering at [facility] / BMI 48.5 Review of Systems: Negative to complete review except as noted in the HPI. Obstetric Review of Systems Total Weight Gain this : Not found. Movement: normal Contractions: none Leaking: None Bleeding: none Preeclampsia signs and symptoms: None Hospital Course Including Delivery and Events The patient was admitted for IOL with pitocin and boogie balloon in the setting of GDMA2. She subsequently underwent spontaneous vaginal delivery with epidural for analgesia. She had a QBL of 285 mL without complication. She delivered a liveborn female with APGARs of 8 and 9. Her course was uneventful. Her pain was well controlled with oral pain medications. She was tolerating a regular diet, was ambulating and voiding without difficulty, and was passing flatus. Her fundal exam was as expected, and her lochia was within normal limits. She was establishing formula feeding of her . Patient planned OCPs after 6 weeks for contraception. She was discharged to home on PPD#1 with plans for follow up in clinic as above. Delivery Information Information for the patient's : Esther Cline [[id number]] INFORMATION Esther Cline 06/21/2023 6:51 PM by Vaginal, Spontaneous Sex: female Gestational Age: 39w0d Measurements: Weight: 7 lb 5.3 oz (3325 g) APGARS One Minute Five Minutes Ten Minutes Totals: 8 9 Blood Loss: OB OR Quantitative Blood Loss Totals 06/21/23 0406 - 06/21/23 1606 None Vital signs at Discharge: BP: 106/63, Heart Rate: 86, Temp: 36.4 ??C (97.5 ??F), Resp: 16, BMI (Calculated): 47.77 Height: 160 cm (5' 3) (06/21/23 1143) Weight: 122.3 kg (269 lb 11.2 oz) (06/21/23 1143) Functional and Cognitive status: at baseline Important Studies and Lab Data: Labs: Recent Results (from the past 72 hour(s)) ABORH Recheck Status Result Value Ref Range ABORH Recheck Order Order Placed ABORH Type Recheck Completed Hemogram Result Value Ref Range WBC 6.8 4.0 - 9.5 x10(3)/mcL RBC 4.50 4.00 - 5.21 x10(6)/mcL Hemoglobin 13.2 11.7 - 15.5 g/dL Hematocrit 39.0 35.7 - 45.8 % MCV 86.7 82.6 - 94.4 fL MCH 29.3 27.1 - 32.0 pg MCHC 33.8 31.7 - 35.0 g/dL Platelets 280 145 - 357 x10(3)/mcL RDWSD 48.5 (H) 37.0 - 46.0 fL RDWCV 15.6 (H) 11.5 - 14.1 % MPV 10.4 7.6 - 12.9 fL nRBC % Auto 0.0 % nRBC Abs Auto 0.000 0.000 - 0.000 x10(3)/mcL Differential, Automated Result Value Ref Range Neutrophils % 69.4 % Neutr Abs (ANC) 4.68 1.70 - 6.10 x10(3)/mcL Lymphocytes % 21.3 % Lymphocytes Abs 1.4 0.9 - 3.2 x10(3)/mcL Monocytes % 7.6 % Monocyte Abs 0.5 0.3 - 0.9 x10(3)/mcL Eosinophils % 1.0 % Eosinophils Abs 0.1 0.0 - 0.4 x10(3)/mcL Basophils % 0.3 % Basophils Abs 0.0 0.0 - 0.1 x10(3)/mcL Immature Gran % 0.40 % Krystal Gran Abs 0.03 0.00 - 0.04 x10(3)/mcL Type and screen ([facility]) Result Value Ref Range ABORH Type O POSITIVE Patient BB History Not Found Expires at 2359 on: 06-24-2023 Ab Screen Interp Negative Comprehensive metabolic panel (non-fasting) Result Value Ref Range Glucose Lvl 94 65 - 199 mg/dL BUN 6 (L) 8 - 18 mg/dL Creatinine 0.46 (L) 0.70 - 1.20 mg/dL Sodium 135 135 - 145 mmol/L Potassium 4.0 3.5 - 5.0 mmol/L Chloride 103 98 - 107 mmol/L CO2 19 (L) 22 - 31 mmol/L Anion Gap 13 5 - 15 mmol/L Calcium 8.9 8.5 - 10.5 mg/dL Total Protein 6.4 6.1 - 8.0 g/dL Albumin 3.3 3.2 - 5.2 g/dL AST Not Perf 0 - 30 ALT 14 0 - 30 unit/L Alk Phos 129 (H) 35 - 105 unit/L Total Bilirubin 0.2 0.2 - 1.3 mg/dL Estimated GFR 133 >=60 mL/min/1.73 m?? Protein/Creatinine Ratio, urine Result Value Ref Range U Creatinine 174 mg/dL U Protein Ran 22 (H) 0 - 12 mg/dL Prot/Cre Ratio 0.1 ratio Aspartate Aminotransferase Result Value Ref Range AST 13 0 - 30 unit/L POCT Glucose Result Value Ref Range POC Glucose 100 65 - 199 mg/dL Studies: None Pending Studies and Lab Data: None Discharge Conditions/Prognosis: good Discharge to: Home Contraceptive Plans: oral contraceptives (estrogen/progesterone) after 6 weeks Allergies at Discharge: Allergies Allergen Reactions Loracarbef Nausea And Vomiting Immunizations Given this Hospitalization: There is no immunization history on file for this patient. Discharge Medications: Your Medications New Medications Dose Details acetaminophen 325 mg tablet Commonly known as: Tylenol Take 2 tablets by mouth every 6 hours as needed for Pain. 650 mg Refills: 0 calcium carbonate 200 mg calcium (500 mg) chewable tablet Commonly known as: TUMS Take 2 tablets by mouth every 4 hours as needed for Heartburn. 2 tablet Refills: 0 ibuprofen 600 mg tablet Commonly known as: Advil Take 1 tablet by mouth every 6 hours as needed for Pain. 600 mg Refills: 0 polyethylene glycoL 17 gram oral powder packet Commonly known as: Miralax Take 17 g by mouth daily as needed. 17 g Refills: 0 simethicone 80 mg chewable tablet Commonly known as: Gas-X Chew Take 1 tablet by mouth 4 times daily as needed. 80 mg Refills: 0 Continued medications, unchanged Dose Details albuteroL 90 mcg/actuation inhaler (HFA) Inhale 2 puffs into the lungs Every 4 hours as needed. 2 puff Refills: 0 aspirin EC 81 mg EC (DR) tablet Take 81 mg by mouth 2 times daily. 81 mg Refills: 0 * levothyroxine 200 mcg tablet Commonly known as: Synthroid Take 200 mcg by mouth daily. 200 mcg Refills: 0 * levothyroxine 50 mcg tablet Commonly known as: Synthroid Take 50 mcg by mouth Daily. 50 mcg Refills: 0 magnesium oxide 400 mg (241.3 mg magnesium) Tablet Commonly known as: Mag-Ox Take 1 tablet by mouth 2 times daily. 1 tablet Refills: 0 pantoprazole EC [address] tablet Commonly known as: Protonix TAKE ONE TABLET BY MOUTH EVERY DAY Refills: 0 Vitamin Plus Low Iron 27 mg iron- 1 mg Tablet TAKE ONE TABLET BY MOUTH ONCE DAILY. TAKE WITH A MEAL/SNACK. Generic drug: PNV,calcium [id number] acid Refills: 0 valACYclovir 500 mg tablet Commonly known as: Valtrex Take 500 mg by mouth daily. 500 mg Refills: 0 * This list has 2 medication(s) that are the same as other medications prescribed for you. Read thedirections carefully, and ask your doctor or other care provider to review them with you. STOPPED Medications freestyle lite strips Generic drug: blood sugar diagnostic strips Lantus Solostar U-100 Insulin 100 unit/mL (3 mL) pen Generic drug: insulin glargine OneTouch UltraSoft 2 Lancet 30 gauge Misc Generic drug: lancets Smoking Status at Discharge: Social History Tobacco Use Smoking Status Former Smokeless Tobacco Never Instructions Given to Patient at Discharge: There are no outpatient Patient Instructions on file for this admission. General Instructions None Future Appointments and Orders Future Appointments and Orders Future Appointments Provider Department Dept Phone 07/29/2023 11:30 AM Ely Nieto MD Obstetrics and Gynecology at [facility] Arrive at: [facility]ist [facility] Area [phone] Future Orders Complete By Expires Follow-up [HQQ208 Custom] As directed Process Instructions: Scheduling Instructions: Comments: - gestational diabetic counseling with staff development educator at the time of the visit if there is a diagnosis of gestational diabetes. Questions: Discharge References/Attachments None documented in this encounter Discharge Instructions * Discharge Instructions* Iram Delgado RN - 06/22/2023 10:20 AM EDT Images from the original note were not included. Nurse Inpatient Note - Vaginal Delivery Follow-ups: ? 2 week and 6 week visit will be scheduled with your primary OB provider Maternal Discharge Instructions Rest: Although it may seem impossible to get enough rest, simple planning will help. Plan to rest, and/or sleep when your baby does. Limiting visitors also helps. Other family members can help by doing housework, caring for other children and/or helping limit visitors. Activity: Exercise can be gradually increased following your delivery, depending on the doctor's recommendation. It is recommended that you do not swim until the vaginal bleeding stops or perform anyheavy lifting for six weeks. ???Aim to stay active for 20-30 minutes a day. When you first start exercising after childbirth, try simple exercises that help strengthen major muscle groups, including abdominal and backmuscles. Gradually add moderate- intensity exercise. Remember, even 10 minutes of exercise benefits your body. If you exercised vigorously before or you are a manager of change, you can work up to vigorous-intensity activity. Stop exercising if you feel pain.?? https://www.[facility]og.org/Patients/FAQs/Obkhmbgd-Eqchn-Pjonjaixm?IsMobileSet=false#ho w Nutrition: Your diet following the of your baby is as important as it was before the baby wasborn. Drinking a minimum of 6-8 glasses of water a day will help keep you hydrated. Continue takingyour vitamins until you are no longer . Do not attempt to lose weight during the first six weeks. Sweating. Hormonal changes following delivery frequently cause night sweats which are normal over the next 6 weeks. Sleeping on towels and using a fan may make you more comfortable. Lochia: (Flow) Your flow should be no heavier than a normal period. It will be bright red and then transition to pink, brown, yellow, and finally colorless. This may last a few weeks. If your vaginalbleeding becomes bright red again, decrease your activity. We recommend pelvic rest until your bleeding and spotting stops and your episiotomy or vaginal tearhas healed. This may take up to six weeks. Pelvic rest excludes activities such as douching, use oftampons/menstrual cups or sexual intercourse. Bladder: For the next 2 weeks, empty your bladder every 2 hours while awake and at least every 4 hours at night. Perineum: For about a week continue to rinse yourself with warm water when you use the toilet. A sitz bath with Epsom salt taken 2 times a day and use of witch gautam may help relieve soreness. Kegel exercise, done regularly throughout the day, will help tighten the perineal muscles and speed recovery. If you received any stitches, these will dissolve on their own and do not need to be removed. If you had a 3rd degree or 4th degree vaginal laceration continue taking stool softeners as recommended by the doctor. Breast Care for Formula feeding mothers: Wear a well-fitting bra to support your breasts. Ice packsto your breasts (10 minutes at a time) as well as alternating Tylenol and Ibuprofen may be used to relieve discomfort from engorgement. Avoid stimulating your breasts: Do not let warm water from the shower fall directly on your breast;do not express any colostrum; avoid holding your baby near your breasts until your milk begins to decrease and engorgement is relieved. For More Information: https://www.acog.org/Patients or refer to ACOG's Your and Childbirth: Month to Month book which you may have received from the OB Clinic. Vaccination: If you received the Measles, Mumps, and Rubella (MMR) vaccine, varicella vaccine, or Hepatitis A vaccine during your hospitalization make sure to discuss this with your OB provider or your PCP at your next visit. You may need a second dose of the vaccine to receive effective vaccine protection. Depression occurs in a large percentage of women. It often occurs after 2 weeks and can last weeks or months. This is different than ??? blues?? which can occur during the firstfew days after you deliver. https://www.acog.org/Patients/FAQs/-Depression Signs of depression: Feeling sad, hopeless or losing interest in daily activities. Having a hard time falling asleep or sleeping too much; feeling tired even after a good sleep. Eating too much or too little. Writing, talking or thinking about hurting yourself or someone else. Call your provider or nurse as soon as you notice any of these signs or feel overwhelmed. Emergency Resources [place] Suicide Hotlines: or [place]: Call/Text [facility] Mental Health Crisis Hotline: Call/Text [facility] [facility] Mental Health Hotline: Call/Text Call your doctor or university professor for: Seizure (call 911) Headache which isn't relieved with Tylenol Headache with visual changes Pain in your chest Shortness of breath Pain in upper right abdomen Fever more than 100.4 F Breast with hot, hard, tender areas plus flu-like symptoms including muscle aches and feeling unwell all over Increased abdominal pain, nausea, shaking chills Increased pain in the area of stitches outside your vagina Heavy bleeding that saturates a pad an hour Clots larger than an egg Red or swollen leg which is painful or warm to the touch Feeling of bladder fullness or pain Unable to urinate when feeling the urge Pain or bleeding with urination Urinary leakage without coughing or sneezing Urinary urgency or increased frequency Keep your follow up appointment. You may call the [facility] at any time for guidance or for answers to questions that come up prior to you follow up appointment. Your [facility] Provider can be reached during office hours at [facility] AFTER OFFICE HOURS for the government guard or university professor operations support coordinator Post- Warning Signs Most women who give recover without problems. But any woman can have complications after the of a baby. Learning to recognize these POST- warning signs and knowing what to do can save your life. These post- warning signs can become life-threatening if you don't receive medical care right away because: Pain in chest, obstructed breathing or shortness of breath (trouble catching your breath) may mean you have a blood clot in your lung or a heart problem Seizures may mean you have a condition called eclampsia Thoughts or feelings of wanting to hurt yourself or your baby may mean you have depression Bleeding (heavy), soaking more than one pad in an hour or passing an egg-sized clot or bigger may mean you have an obstetric hemorrhage Incision that is not healing, increased redness or any pus from episiotomy or C- section site may mean you have an infection Redness, swelling, warmth, or pain in the calk area of your leg may mean you have a blood clot Temperature of 100.4??F or higher, bad smelling vaginal blood or discharge may mean you have an infection Headache (very painful), vision changes, or pain in the upper right area of your belly may mean youhave high blood pressure or post preeclampsia Provider electronic signature confirms that discharge instructions were reviewed with the patient. A copy was printed and given to the patient. documented in this encounter Medications at Time of Discharge Medication Sig Dispensed Refills Start Date End Date acetaminophen (Tylenol) 325 mg tablet Take 2 tablets by mouth every 6 hours as needed for Pain. 06/22/2023 calcium carbonate (TUMS) 200 mg calcium (500 mg) chewable tablet Take 2 tablets by mouth every 4 hours as needed for Heartburn. 06/22/2023 ibuprofen (Advil) 600 mg tablet Take 1 tablet by mouth every 6 hours as needed for Pain. 06/22/2023 polyethylene glycoL (Miralax) 17 gram oral powder packet Take 17 g by mouth daily as needed. 06/22/2023 simethicone (Gas-X Chew) 80 mg chewable tablet Take 1 tablet by mouth 4 times daily as needed. 06/22/2023 aspirin EC 81 mg EC (DR) tablet Take 81 mg by mouth 2 times daily. magnesium oxide (Mag-Ox) 400 mg (241.3 mg magnesium) Tablet Take 1 tablet by mouth 2 times daily. 04/21/2023 albuteroL 90 mcg/actuation HFA Aerosol Inhaler Inhale 2 puffs into the lungs Every 4 hours as needed. 09/13/2019 levothyroxine (Synthroid) 50 mcg Tablet Take 50 mcg by mouth Daily. 12/16/2020 pantoprazole EC (Protonix) 40 mg Tablet, Delayed Release (E.C.) TAKE ONE TABLET BY MOUTH EVERY DAY 02/13/2021 Vitamin Plus Low Iron 27 mg iron- 1 mg Tablet TAKE ONE TABLET BY MOUTH ONCE DAILY. TAKE WITH A MEAL/SNACK. 02/05/2021 valACYclovir (Valtrex) 500 mg Tablet Take 500 mg by mouth daily. 03/15/2020 levothyroxine (Synthroid) 200 mcg Tablet Take 200 mcg by mouth daily. documented as of this encounter Progress Notes * Malgorzata Thorne RN - 06/22/2023 8:29 PM EDT Pt discharged to home with SO and infant. Pt had previously gone over the discharge paperwork with anita CELESTE and piv removed. * Rain Wilson DO - 06/22/2023 6:09 AM EDT Vaginal Delivery Note Patient ID: Tiny Cline is a 27 y.o. PPD#1 after at 39w0d gestation. Delivery uncomplicated. complicated by GDMA2, Grave's disease, HSV, and mild intermittent asthma. S: Tiny is feeling well this AM. She was able to get some sleep. She is requesting to go home today as she has other children at home. Pain: well controlled with oral medications Diet: tolerating regular diet without n/v Ambulating: without assistance Voiding: without problems Lochia: minimal O: Last value Range last 24 hrs Temperature Temp: 36.4 ??C (97.5 ??F) Temp: [36.4 ??C (97.5 ??F)-36.8 ??C (98.2 ??F)] Heart Rate Heart Rate: 86 Heart Rate: [69-106] Blood Pressure BP: 106/63 BP: (96-122)/(48-80) Respiratory Rate Resp: 16 Resp: [16-20] SpO2 SpO2: 97 % SpO2: [97 %-100 %] Intake/Output Summary (Last 24 hours) at 06/22/2023 0848 Last data filed at 06/21/2023 2200 Gross per 24 hour Intake 64 ml Output 1435 ml Net -1371 ml Exam: Gen: NAD Cardiac: RRR Pulmonary: CTAB, no increased work of breathing Abdomen: soft, NT/ND, no rebound or guarding, fundus firm and below umbilicus. Extremities: nontender, no LE edema. Labs: Recent Labs 06/21/23 1436 06/21/23 1241 06/21/23 1230 06/21/23 1220 WBC -- -- -- 6.8 HGB -- -- -- 13.2 HCT -- -- -- 39.0 PLATELET -- -- -- 280 AST 13 -- Not Perf -- ALT -- -- 14 -- CREATININE -- -- 0.46* -- UPROTCREAT -- 0.1 -- -- Assessment/Plan: Tiny Cline is a 27 y.o. s/p , doing well this morning. She is meeting her milestones. Plan to discharge home later in the day today. General Care Pt meeting appropriate milestones. Continue routine care. Hgb on admission 13.2, QBL 285. Pt asymptomatic for acute blood loss anemia. Continue to monitor for signs or symptoms of worsening anemia. VTE prophylaxis: ambulation Immunization needs: Patient is O+ will not require rhogam Formula feeding Contraception plan: OCPs after 6 weeks Other Maternal Concerns 2 week mood check 6 week PP visit with GTT (GDMA2) Anticipate discharge on PPD#1 This patient was seen and discussed on rounds. Rain Wilson DO 06/22/23 8:48 AM Associated attestation - Ariel Larsen MD - 06/22/2023 10:11 AM EDT Patient seen, chart reviewed, discussed with team and agree with resident note. Doing well. Pt desires early discharge No contraindications for discharge home. Plan follow up with local group in [place], [place] MD Leonor * Dayami Crawford MD - 06/21/2023 5:49 PM EDT Intrapartum Progress Note Patient ID: Tiny Cline is a 27 y.o. presenting for IOL for GDMA2. complicated by HSV on prophylaxis, Grave's s/p ablation on thyroid replacement therapy, h/o gHTN. S: Tiny is comfortable with her epidural, consents to SVE and another attempt at AROM O: Last value Range last 8 hrs Temperature Temp: 36.6 ??C (97.9 ??F) Temp: [36.6 ??C (97.9 ??F)-36.8 ??C (98.2 ??F)] Heart Rate Heart Rate: 97 Heart Rate: [78-106] Blood Pressure BP: 106/67 BP: (106-122)/(63-80) Respiratory Rate Resp: 18 Resp: [18-20] SpO2 SpO2: 100 % SpO2: [97 %-100 %] Cervical Exam: Dilation: 5 (06/21/23 1735) Effacement: 70 Station: -2 Cervical Position: Posterior Consistency: Soft Melendez Score: 5 OB Examiner: Dayami Crawford FHR Baseline 130/Moderate variability/ + accels/no decels [place]: Ctx q3 mins Pitocin: 10mL/hr New Labs Lab Results Component Value Date WBC 6.8 06/21/2023 HGB 13.2 06/21/2023 HCT 39.0 06/21/2023 MCV 86.7 06/21/2023 PLATELET 280 06/21/2023 Lab Results Component Value Date CREATININE 0.46 (L) 06/21/2023 Lab Results Component Value Date AST 13 06/21/2023 A/P: .27 y.o. at 39w0d undergoing IOL for GDMA2. Labor course and assessment: S/p boogie balloon. Pitocin started at 1425, currently at 10 ml/hr and being uptitrated. AROMed to copious clear/pink tinged fluid at 16:24 wellbeing: Category 1 GBS status: Negative Analgesia: epidural working well PPH risk: medium for BMI HSV: negative bright light test, Valtrex ordered Hypothyroid: Synthroid ordered qAM GDMA2: q4h BG checks with insulin sliding scale. Will switch to q2h once patient is in active labor Patient discussed with Dr. Cyndi Crawford MD PGY1 Obstetrics/Gynecology 06/21/23 Associated attestation - Jolene Hanna MD - 06/21/2023 6:39 PM EDT I have seen the patient and reviewed the resident's note and I agree with the plan of care. 27 y/o @ 39wks undergoing IOL for GDMA2. Now s/p AROM, on oxytocin. Anticipate soon. Jolene Hanna MD * Emily Galicia MD - 06/21/2023 4:07 PM EDT Intrapartum Progress Note Patient ID: Tiny Cline is a 27 y.o. presenting for IOL for GDMA2. complicated by HSV on prophylaxis, Grave's s/p ablation on thyroid replacement therapy, h/o gHTN. S: Tiny is comfortable with her epidural. Prior to epidural placement, she was feeling her contractions. O: Last value Range last 8 hrs Temperature Temp: 36.6 ??C (97.9 ??F) Temp: [36.6 ??C (97.9 ??F)-36.8 ??C (98.2 ??F)] Heart Rate Heart Rate: 89 Heart Rate: [82-106] Blood Pressure BP: 117/69 BP: (108-122)/(67-80) Respiratory Rate Resp: 18 Resp: [18-20] SpO2 SpO2: 99 % SpO2: [97 %-99 %] Cervical Exam: Dilation: 5 (06/21/23 1622) Effacement: 70 Station: -2 Cervical Position: Posterior Consistency: Soft Melendez Score: 5 OB Examiner: Emily Galicia FHR Baseline 130/Moderate variability/ + accels/no decels [place]: Ctx q3-4 mins Pitocin: 4mL/h New Labs Lab Results Component Value Date WBC 6.8 06/21/2023 HGB 13.2 06/21/2023 HCT 39.0 06/21/2023 MCV 86.7 06/21/2023 PLATELET 280 06/21/2023 Lab Results Component Value Date CREATININE 0.46 (L) 06/21/2023 Lab Results Component Value Date AST 13 06/21/2023 A/P: .27 y.o. at 39w0d undergoing IOL for GDMA2. Labor course and assessment: Boogie balloon placed at 1400, out at approx 1530. Pitocin started at 1425, being uptitrated. Amniotomy attempted at 1625, small amount of clear fluid noted. wellbeing: Category 1 GBS status: negative Analgesia: epidural in place PPH risk: medium for BMI HSV: negative bright light test, Valtrex ordered Hypothyroid: Synthroid ordered qAM GDMA2: once Boogie balloon was out switched to q4h BG checks with insulin sliding scale. Will switchto q2h once patient is in active labor Patient discussed with Dr. Kristyn Galicia MD PGY-1 Obstetrics and Gynecology 06/21/23 Associated attestation - Tawana Simons MD - 06/21/2023 5:27 PM EDT I have personally reviewed this patients heart tracing and progress in labor and agree with the documentation above. A2GDM - BG have been 94-100 since arrival. Continue to follow as outlined. Anticipate . Tawana Simons MD documented in this encounter H&P Notes * Emily Galicia MD - 06/21/2023 1:16 PM EDT Obstetrical Term Admission Note Tiny Cline is a 27 y.o. at 39w0d gestation being admitted for induction of labor. HPI: Tiny is ready to get her induction started! Here with her mom partner and two children. Denies VB, LOF. Is feeling the baby move around well. Denies TRIVEDI, vision changes, SOB, RUQ pain, new onset swelling. Her has been complicated by the following: GDMA2 16u NPH QHS Grave's disease S/p thyroid ablation Synthroid 250mcg QD HSV Has been on Valtrex since approx 36w, no active lesions at the moment per patient Asthma, mild intermittent Rare albuterol inhaler use Hx gHTN in prior Admission PIH labs ordered Transfer of care [facility] Delivering at [facility] / BMI 48.5 Review of Systems: Negative to complete review except as noted in the HPI. Obstetric Review of Systems Total Weight Gain this : Not found. Movement: normal Contractions: none Leaking: None Bleeding: none Preeclampsia signs and symptoms: None Active Hospital Problems Diagnosis Encounter for planned induction of labor Resolved Hospital Problems No resolved problems to display. Active Non-Hospital Problems Diagnosis Thyroid disease affecting Maternal morbid obesity in third trimester, antepartum Past Medical History: Diagnosis Date Asthma triggers; cold temp, URI, exercise Genital HSV Graves disease teenager. Treated with thyroidectomy Obesity Past Surgical History: Procedure Laterality Date CHOLECYSTECTOMY 2019 at [facility] PRO BILIARY ENDOSCOPY, PERCUT, W/REM, STONE(S) N/A 06/17/2020 CHOLEDOCHOSCOPY, REMOVAL OF CALCULUS\CALCULI (WRVU 9.05) performed by William Lorenzo MD at [facility] ENDOSCOPY PRO ERCP, SPHINCTEROTOMY 06/17/2020 ERCP W/SPHINCTEROTOMY/PAPILLOTOMY performed by William Lorenzo MD at [facility] ENDOSCOPY PRO ERCP, W/REMOVAL STONE, HARDEEP/PANCR DUCTS 06/17/2020 ERCP W/REMOVAL CALCULI/DEBRIS FROM BILARY/PANCREATIC DUCT(S) performed by William Lorenzo MD at [facility] ENDOSCOPY PRO ERCP,DIAGNOSTIC N/A 06/17/2020 ERCP performed by William Lorenzo MD at [facility] ENDOSCOPY PRO FRAGMENT KIDNEY STONE/ ESWL Bilateral 06/17/2020 LITHOTRIPSY-HARDEEP (WRVU 9.77) performed by William Lorenzo MD at [facility] ENDOSCOPY OB History 3 Para 2 Term 2 AB Living 2 SAB IAB Ectopic Multiple Live Births 2 # Outc Date GA Lbr Eduardo/2nd Wgt Sex Del Anes PTL Lv 1 Term 2018 40w0d 3.827 kg (8 lb 7 oz) F Vag-Spont No Living 2 Term 2021 39w0d 3.43 kg (7 lb 9 oz) F Vag-Spont EPI No Living Complications: Gestational Hypertension 3 Current Medications Prior to Admission Medication Sig Dispense Refill Last Dose aspirin EC 81 mg EC (DR) tablet Take 81 mg by mouth 2 times daily. 06/21/2023 Lantus Solostar U-100 Insulin 100 unit/mL (3 mL) pen 16 Units nightly. 06/20/2023 at 2100 magnesium oxide (Mag-Ox) 400 mg (241.3 mg magnesium) Tablet Take 1 tablet by mouth 2 times daily. 06/21/2023 at 0900 levothyroxine (Synthroid) 50 mcg Tablet Take 50 mcg by mouth Daily. 06/21/2023 at 0430 pantoprazole EC (Protonix) 40 mg Tablet, Delayed Release (E.C.) TAKE ONE TABLET BY MOUTH EVERY DAY 06/20/2023 at 2130 Vitamin Plus Low Iron 27 mg iron- 1 mg Tablet TAKE ONE TABLET BY MOUTH ONCE DAILY. TAKE WITH A MEAL/SNACK. 06/21/2023 at 0900 levothyroxine (Synthroid) 200 mcg Tablet Take 200 mcg by mouth daily. 06/21/2023 at 0430 OneTouch UltraSoft 2 Lancet 30 gauge Misc freestyle lite strips USE TO TEST FOUR TIMES A DAY albuteroL 90 mcg/actuation HFA Aerosol Inhaler Inhale 2 puffs into the lungs Every 4 hours as needed. More than a month valACYclovir (Valtrex) 500 mg Tablet Take 500 mg by mouth daily. at 0900 Allergies Allergen Reactions Loracarbef Nausea And Vomiting No family history on file. Social History Occupational History Not on file Tobacco Use Smoking status: Former Smokeless tobacco: Never Vaping Use Vaping Use: Never used Substance and Sexual Activity Alcohol use: Not Currently Drug use: Not Currently Sexual activity: Not on file Immunization History There is no immunization history on file for this patient. Last Set of Vitals: BP 122/77 Pulse (!) 106 Temp 36.8 ??C (98.2 ??F) (Oral) Resp 20 Ht 160 cm (5' 3) Wt 122.3 kg (269 lb 11.2 oz) SpO2 97% BMI 47.78 kg/m?? Physical Exam Gen: AAO Cardio: nl rhythm, S1, S2, no M/C/R/G Pulm: CTA BL, no W/C/R Abd: soft, NT, ND, gravid Ext: warm, well-perfused, no ANDREW or calf tenderness Neuro: grossly intact Uterine Size: S=D Clinical EFW: unable to assess due to body habitus Bright light exam: negative Sterile Speculum: not indicated Cervix Exam: Dilation: 2 (06/21/23 1309) Effacement: 50 Station: -2 Cervical Position: Posterior Consistency: Soft Melendez Score: 5 OB Examiner: Emily Galicia Pelvis: average Presentations: Cephalic, by POCUS Heart Rate Interpretation: Baseline: 110, Variability: moderate, Accels: yes, Decels: none, [place]: none Lab Results Component Value Date ABORH O POSITIVE 12/14/2022 HCT 39.0 06/21/2023 HGB 13.2 06/21/2023 MCV 86.7 06/21/2023 AST 9 03/30/2023 Most Recent Growth Ultrasound Date: 05/06/23 GA at US: 37w EFW: 1880g/4lb2oz/27%ile Growth appropriate for gestational age Amniotic fluid volume normal Placenta posterior Presentation cephalic Assessment & Plan Tiny Cline is a 27 y.o. at 39w0d being admitted for induction of labor. Heart Rate Assessment: Category 1 Labor State: Not in labor. Labor management: Plan for IOL with pitocin and Boogie balloon GBS Management: None Required GBS negative status (05/26/23) confirmed by phone 06/21/23 with [facility], record requested Hemorrhage Risk: Medium (BMI) Additional maternal concerns: GDMA2 POCT blood glucose pre-prandial and fasting and ISS, plan for q4h and ISS once labor progresses or patient has an epidural Asthma Consider avoiding Hemabate HSV Bright light exam negative Thyroid disease Continue home Synthroid 250mcg Hx gHTN in prior PIH labs ordered on admission This patient was seen and discussed with Dr. Simons, Attending [employer]. Emily Galicia MD 06/21/2023 Associated attestation - Tawana Simons MD - 06/21/2023 3:49 PM EDT I have seen and evaluated the patient and reviewed the above history with Dr. Galicia. I agree with the details as written. The assessment and plan were formulated in discussion with me and I agree with them as documented. 27 year old at 39w0d admitted for induction at term d/t A2GDM. She is using NPH at HS, [id number] last night but typically takes 16U. Patient's course has been otherwise unremarkable. Category 1 tracing. Cervix somewhat favorable. PPH risk medium. Anticipate . Agree with plan for induction. Nature and course of induction reviewed. Tawana Simons MD documented in this encounter Miscellaneous Notes * Plan of Care - Malia Osman RN - 06/22/2023 5:17 AM EDT OUTCOME EVALUATION NOTE: OUTCOME SUMMARY: Stable PP pt. VS and assessments WNL. Reports perineal pain and soreness @ epidural site. Managed with pain medication. Voiding well independently. Up ad spring. Clustered care for sleep. PLAN MOVING FORWARD: Continue to assess VS, fundus, and lochia per orders and PRN. Treat pain as needed. INDIVIDUALIZED FALL PREVENTION INTERVENTIONS: Patient-specific fall risk factors per assessment: [current deficits]: Unfamiliar environment, pain. Assistance [level of assistance required for transfers and ambulation]: Independent. Supervision [direct monitoring required during toileting and ADLs]: Independent. Will call prn for help OOB if feeling dizzy or weak. Surveillance [continuous indirect monitoring]: Rounding by RN. Call kwok within reach. Aware of when to call nurse. Patient-specific fall prevention interventions for sensory deficits provided, if applicable: [X] N/A CPG GOAL OUTCOME EVALUATION: Stable PP pt progressing towards all goals for recovery. Problem: Adjustment to Role Transition ( Vaginal Delivery) Goal: Successful Maternal Role Transition Outcome: Ongoing (Interventions Implemented as Appropriate) Problem: Bleeding ( Vaginal Delivery) Goal: Hemostasis Outcome: Ongoing (Interventions Implemented as Appropriate) Problem: Infection ( Vaginal Delivery) Goal: Absence of Infection Signs and Symptoms Outcome: Ongoing (Interventions Implemented as Appropriate) Problem: Pain ( Vaginal Delivery) Goal: Acceptable Pain Control Outcome: Ongoing (Interventions Implemented as Appropriate) Problem: Urinary Retention ( Vaginal Delivery) Goal: Effective Urinary Elimination Outcome: Ongoing (Interventions Implemented as Appropriate) * L&D Delivery Note - Dayami Crawford MD - 06/21/2023 7:09 PM EDT Vaginal Delivery Note Tiny Cline is a 27 y.o. woman at 39w0d weeks gestational age, who presented for IOL for GDMA2. She was induced with a boogie balloon, pitocin and AROM, and had normal labor progress. Sheused an epidural for analgesia. She was found to be complete at 18:45 with the presenting part at 0 station. She pushed for 6 minutes and spontaneously delivered at 18:51. The infant's head was delivered in a controlled fashion in OA position. There was a double nuchal cord. The body was delivered without incident over an intact perineum. A viable female was placed on mom's chest and had APGARS of 8 and 9 at 1 and 5 minutes and had a weight pending at the time of this note. The cord was clamped in 2 places and transected. Cord blood was taken for O positive blood type. The placenta delivered spontaneously in under 30minutes and it was a 3-vessel cord with marginal cord insertion. The fundus became firm with massage and pitocin. Inspection of the vagina and perineum revealed no laceration requiring repair. The sulci were examined and found to be intact. No complications. Blood loss estimated at 100mL. She was in stable condition after delivery. The remained in stable condition at the bedside. Dayami Crawford MD PGY1 Obstetrics/Gynecology 06/21/23 Information for the patient's : Esther Cline [[id number]] DELIVERY SUMMARY FOR Baby Owen Cline (please note there is a separate summary for each fetus) 06/21/2023 6:51 PM by Vaginal, Spontaneous Sex: female Gestational Age: 39w0d Labor Events labor?: No GBS colonized: negative steroids: None Cervical ripening type: Boogie Rupture identifier: Rupture 1 Rupture date/time: 06/21/2023 1624 Rupture type: artificial rupture of membranes Fluid color: clear Labor onset type: induction of labor Induction methods: AROM, Oxytocin Indications for induction: diabetes Mother Delivery Episiotomy: None Perineal lacerations: None Surgical or additional est. blood loss (mL): 0 Combined est. blood loss (mL): 0 Repair suture: None OB OR Quantitative Blood Loss Totals 06/21/23 0651 - 06/21/23 1915 None Delivery (Linch) Delivery Date: 06/21/23 Delivery Time: 6:51:00 PM Sex: Female Presentation: Vertex Attempted ?: No Delivery Type: Vaginal Delivery Type (Specific): Vaginal, Spontaneous Pre Vaginal Count?: Yes Post Vaginal Count?: Yes Shoulder Dystocia Shoulder dystocia present?: No Delivery Information Delivery Location: delivery room Delivering Clinician: Rosalinda Villagran MD Other Personnel: Provider Role Jolene Harrington RN Delivery Nurse Jolene Hanna MD Fire Control Technician G Jolene Freitas RN Delivery Assist Julia Anguiano MD Resident Anesthesia No data filed Cord Vessels: 3 Vessels Complications: Nuchal x 2 Cord Blood Disposition: Lab Gases Sent?: No Cord Insertion: marginal Assessment & APGARS Living status: Living Apgars 1 Minute: 5 Minute: 10 Minute 15 Minute 20 Minute Skin Color: 0 1 Heart Rate: 2 2 Reflex Irritability: 2 2 Muscle Tone: 2 2 Respiratory Effort: 2 2 Total: 8 9 Apgars Assigned By: JOLENE HARRINGTON RN Resuscitation Method: Suctioning Suctioning Method: bulb syringe Maternal Feeding and Skin to Skin Maternal Choice for Linch(s) Feeding on Admission: Formula Skin to skin initiated date/time: 06/21/2023 1851 Skin to skin with: Mother Linch Medications Medications Given: vitamin K, erythromycin Measurements No data filed Placenta Date and Time: 06/21/2023 6:56:00 PM Removal: Spontaneous Appearance: Intact Labor Length No data filed Associated attestation - Jolene Hanna MD - 06/21/2023 9:00 PM EDT I was present for uncomplicated as documented. Jolene Hanna MD documented in this encounter Plan of Treatment Not on file documented as of this encounter Procedures Procedure Name Priority Date/Time Associated Diagnosis Comments SPECIMEN TO PATHOLOGY Routine 06/21/2023 7:18 PM EDT POCT GLUCOSE Routine 06/21/2023 3:12 PM EDT ASPARTATE AMINOTRANSFERASE STAT 06/21/2023 2:36 PM EDT PROTEIN/CREATININE RATIO, URINE Routine 06/21/2023 12:41 PM EDT CBC (WITH DIFF) Routine 06/21/2023 12:30 PM EDT TYPE AND SCREEN ([facility]/CGP/AMY) Routine 06/21/2023 12:30 PM EDT COMPREHENSIVE METABOLIC PANEL Routine 06/21/2023 12:30 PM EDT HEMOGRAM Routine 06/21/2023 12:20 PM EDT DIFFERENTIAL, AUTOMATED Routine 06/21/19 12:20 PM EDT ABORH RECHECK STATUS Routine 06/21/2023 12:20 PM EDT documented in this encounter Results * Specimen to Pathology (06/21/2023 7:18 PM EDT) AP Specimen 06/21/2023 7:18 PM EDT 06/21/2023 7:18 PM EDT Narrative [facility] - 06/21/2023 7:18 PM EDT Specimen requisition ordered. ??Separate Pathology report to follow Jolene Hanna MD PATHOLOGY/CYTOLOGY O RDERABLES [facility] [place] [place] [address] * POCT Glucose (06/21/2023 3:12 PM EDT) Glucose, POC 100 65 - 199 mg/dL [facility] Comment: Supplemental ranges: <140 mg/dL before meals <180 mg/dL all other times of the day Blood 06/21/2023 3:12 PM EDT 06/21/2023 3:12 PM EDT Tawana Simons MD POINT OF CARE TEST ORDERABLES Performing Organization Address City/[facility]/ZIP Co de Phone Number [facility] [place] [address] * Aspartate Aminotransferase (06/21/2023 2:36 PM EDT) Aspartate Aminotransferase 13 0 - 30 unit/L [facility] Blood 06/21/2023 2:36 PM EDT 06/21/2023 2:58 PM EDT Narrative Resulting Agency Comment Spec In Lab Tawana Simons MD CHEMISTRY ORDERABLE S Performing Organization Address City/[facility]/ZIP Co de Phone Number [facility] [place] [address] * (ABNORMAL) Protein/Creatinine Ratio, urine (06/21/2023 12:41 PM EDT) Creatinine, Urine 174 mg/dL [facility] Protein, Urine 22(H) 0 - 12 mg/dL [facility] Protein / Creatinine Ratio, Urine 0.1 ratio [facility] Urine 06/21/2023 12:4 1 PM EDT 06/21/2023 1:39 PM EDT Narrative Resulting Agency Comment Spec In Lab Tawana Simons MD URINE ORDERABLES Performing Organization Address City/[facility]/ZIP Co de Phone Number [facility] [place] [place] [address] * (ABNORMAL) Comprehensive metabolic panel (non-fasting) (06/21/2023 12:30 PM EDT) Glucose 94 65 - 199 mg/dL [facility] Comment:Diabetes: >=200 mg/d L plus symptoms Blood Urea Nitrogen 6(L) 8 - 18 mg/dL [facility] Creatinine 0.46(L) 0.70 - 1.20 mg/dL [facility] Sodium 135 135 - 145 mmol/L [facility] Potassium 4.0 3.5 - 5.0 mmol/L [facility] Comment: Please note: ??Patients with WBC >100,000 may have falsely elevated Potassium levels. ??For accurate Potassium quantification in these patients send serum separator tube (gold top) for subsequent determinations. ??Contact the Clinical Chemistry Laboratory if there are any questions. Chloride 103 98 - 107 mmol/L [facility] Carbon Dioxide 19(L) 22 - 31 mmol/L [facility] Anion Gap 13 5 - 15 mmol/L [facility] Calcium 8.9 8.5 - 10.5 mg/dL [facility] Protein, Total 6.4 6.1 - 8.0 g/dL [facility] Albumin 3.3 3.2 - 5.2 g/dL [facility] Aspartate Aminotransferase Not Perf 0 - 30 [facility] Comment: Unable to quantitate due to sample hemolysis. ??Sample redraw suggested. Called by: EVA, Read back by: Bethany Fisher, Date/Time:06/21/23 14:02. Alanine Aminotransferase 14 0 - 30 unit/L [facility] Alkaline Phosphatase 129(H) 35 - 105 unit/L [facility] Bilirubin, Total 0.2 0.2 - 1.3 mg/dL [facility] Est Glomerular Filtration Rate 133 >=60 mL/min/1. 73 m?? [facility] Comment: This patient's estimated GFR was calculated using the 2020 CKD-EPI equation. The estimated GFR can vary from the measured GFR by up to 30% in the absence of rapidly changing kidney function. Assessment of the estimated GFR is not appropriate when creatinine concentrations are rapidly changing. For clinical situations in which a more precise estimate of GFR is necessary, consider alternative methods of GFR estimation such as a 24-hour urine creatinine clearance. Assignment of CKD stage 1-5 for patients with an eGFR near the transition point between stages may be based on clinical assessment of muscle mass and symptoms in addition to eGFR. Blood 06/21/2023 12:3 0 PM EDT 06/21/2023 12:45 PM EDT Narrative Resulting Agency Comment Spec In Lab Tawana Simons MD CHEMISTRY ORDERABLE S Performing Organization Address [facility]/ZIP Co de Phone Number [facility] [address] * Type and screen ([facility]/CGP/AMY) (06/21/2023 12:30 PM EDT) Pathologist [facility] ABORH Type O POSITIVE [facility] Patient BB History Not Found [facility] Expires at 2824 on: 06-24-2023 [facility] Ab Screen Interp Negative [facility] Blood 06/21/2023 12:3 0 PM EDT 06/21/2023 12:20 PM EDT Narrative [facility] - 06/21/2023 12:20 PM EDT This Type and Screen result is only valid at the [facility] Resulting Agency Comment Spec In Lab Tawana Simons MD BLOOD BANK LAB ORDE RABLES Performing Organization Address [facility] Co de Phone Number [facility] [place] [address] * Differential, Automated (06/21/2023 12:20 PM EDT) Neutrophil % 69.4 % [facility] Neutrophil Absolute 4.68 1.70 - 6.10 x10(3)/[facility] Lymph % 21.3 % [facility] Lymphocytes Abs 1.4 0.9 - 3.2 x10(3)/[facility] Monocyte % 7.6 % [facility] Monocyte Abs 0.5 0.3 - 0.9 x10(3)/[facility] Eos % 1.0 % [facility] Eosinophils Abs 0.1 0.0 - 0.4 x10(3)/[facility] Basophil % 0.3 % [facility] Baso Absolute 0.0 0.0 - 0.1 x10(3)/[facility] Immature Gran % 0.40 % [facility] Comment: Immature granulocytes(IG's)percentage and absolute count will include metamyelocytes, myelocytes, and promyelocytes. Blood smears from CBCs yielding IG's will be scanned manually for concordance. If this scan disagrees with the automated IG or if promyelocytes are noted, a manual differential will be performed. Immature Gran Absolute 0.03 0.00 - 0.04 x10(3)/[facility] Blood 06/21/2023 12:2 0 PM EDT 06/21/2023 12:45 PM EDT Narrative Resulting Agency Comment Spec In Lab Kendra Meraz MD HEMATOLOGY ORDERABLE S [facility] [place] [address] * (ABNORMAL) Hemogram (06/21/2023 12:20 PM EDT) White Blood Cell 6.8 4.0 - 9.5 x10(3)/mc L [facility] Red Blood Cell 4.50 4.00 - 5.21 x10(6)/mc L [facility] Hemoglobin 13.2 11.7 - 15.5 g/dL [facility] Hematocrit 39.0 35.7 - 45.8 % [facility] Mean Cell Volume 86.7 82.6 - 94.4 fL [facility] Mean Cell Hemoglobin 29.3 27.1 - 32.0 pg [facility] Mean Cell Hemoglobin Concentration 33.8 31.7 - 35.0 g/dL [facility] Platelet 280 145 - 357 x10(3)/mc L [facility] RDW Standard Deviation 48.5(H) 37.0 - 46.0 fL [facility] RDW coefficient of variation 15.6(H) 11.5 - 14.1 % [facility] Mean Platelet Volume 10.4 7.6 - 12.9 fL [facility] NRBC% auto 0.0 % [facility] NRBC Absolute 0.000 0.000 - 0.000 x10(3)/mc L [facility] Blood 06/21/2023 12:2 0 PM EDT 06/21/2023 12:45 PM EDT Narrative Resulting Agency Comment Spec In Lab Kendra Meraz MD HEMATOLOGY ORDERABLE S Performing Organization Address City/[facility]/ZIP Co de Phone Number [facility] [place] [address] * ABORH Recheck Status (06/21/2023 12:20 PM EDT) ABORH Recheck Order Order Placed [facility] ABORH Type Recheck Completed [facility] Blood 06/21/2023 12:2 0 PM EDT 06/21/2023 12:40 PM EDT Narrative Resulting Agency Comment Spec In Lab Kendra Meraz MD BLOOD BANK LAB ORDER LITZY [facility] [place] [address] documented in this encounter Visit Diagnoses Diagnosis Encounter for planned induction of labor- Primary Encounter for planned induction of labor documented in this encounter Admitting Diagnoses Diagnosis Encounter for planned induction of labor documented in this encounter Administered Medications Inactive Administered Medications - up to 3 most recent administrations Medication Order MAR Action Action Date Dose Rate Site acetaminophen (Tylenol) tablet 975 mg 975 mg, Oral, EVERY 6 HOURS PRN, Starting on Wed06/21/23 at 1917, Until Wed06/22/23 at 2229, Pain, Maximum dose of acetaminophen is 4,000 mg from all sources in 24 hours. Both acetaminophen and ibuprofen, if ordered, should be given even when other ordered pain medications are indicated., Routine Given 06/22/2023 12:45 PM EDT 975 mg Given 06/22/2023 4:42 AM EDT 975 mg Given 06/21/2023 9:53 PM EDT 975 mg calcium carbonate (TUMS) chewable tablet 1,000 mg 1,000 mg (2 tablet), Oral, EVERY 4 HOURS PRN, Starting on Wed06/21/23 at 1128, Until Wed06/22/23 at 2229, Heartburn, Routine dextrose 10% infusion 250 mL, at 1,000 mL/hr, Intravenous, EVERY 15 MIN PRN, Starting on Wed06/21/23 at 1403, Until Wed06/22/23 at 2229, For BG 50-70 mg/dL: Oral treatment preferred: If able to drink, give 120 mL juice or regular (not diet) soda OR if NPO, give 15 gram glucose 40% oral gel massaged into buccal mucosa OR if unconscious or uncooperative, give 25 gram (250 mL) dextrose 10% IV over 15 minutes per protocol OR, if no IV access, 1 mg glucagon IM. For BG less than 50 mg/dL: Oral treatment preferred: If able to drink, give 240 mL juice or regular (not diet) soda OR if NPO, give 30 gram glucose 40% oral gel massaged in buccal mucosa OR if unconscious or uncooperative, give 25 gram (250 mL) dextrose 10% IV over 15 minutes per protocol OR, if no IV access, 1 mg glucagon IM. Recheck BG in 15 minutes. May repeat juice/soda, gel, dextrose or glucagon once per episode. Notify provider if hypoglycemia does not resolve after two treatments. Providers should consider the following: administering longer-acting treatments for the duration of active insulin or hypoglycemia agent for persistent hypoglycemia and re-evaluating active insulin orders before administering the next dose. fentaNYL (pf) (2 mcg/mL), BUpivacaine (pf) 0.0625% in sodium chloride 0.9% 250 mL epidural Epidural, Epidural Type: PIEB + PCEA, PIEB Dose: 8 mL, PIEB Frequency: 45 minutes, PCEA Dose: 8 mL, PCEA Frequency: Every 20 minutes, 1 Hour Limit: 38 mL/hr, Maximum rate for continuous infusion is 16 mL per hour Maximum intermittent bolus is 15 mL Continuous = basal rate for epidural infusion PCEA (Patient Controlled Epidural Analgesia) = bolus from infusion delivered after patient presses demand button PIEB (Programmed Intermittent Epidural Bolus) = bolus from infusion delivered on a programmed frequency New Bag 06/21/2023 4:01 PM EDT 250 mLs glucagon (Glucagen) (1 mg/mL) injection solution 1 mg 1 mg, Intramuscular, EVERY 15 MIN PRN, Starting on Wed06/21/23 at 1403, Until Wed06/22/23 at 2229, Low blood sugar, For BG 50-70 mg/dL: Oral treatment preferred: If able to drink, give 120 mL juice or regular (not diet) soda OR if NPO, give 15 gram glucose 40% oral gel massaged into buccal mucosa OR if unconscious or uncooperative, give 25 gram (250 mL) dextrose 10% IV over 15 minutes per protocol OR, if no IV access, 1 mg glucagon IM. For BG less than 50 mg/dL: Oral treatment preferred: If able to drink, give 240 mL juice or regular (not diet) soda OR if NPO, give 30 gram glucose 40% oral gel massaged in buccal mucosa OR if unconscious or uncooperative, give 25 gram (250 mL) dextrose 10% IV over 15 minutes per protocol OR, if no IV access, 1 mg glucagon IM. Recheck BG in 15 minutes. May repeat juice/soda, gel, dextrose or glucagon once per episode. Notify provider if hypoglycemia does not resolve after two treatments. Providers should consider the following: administering longer-acting treatments for the duration of active insulin or hypoglycemia agent for persistent hypoglycemia and re-evaluating active insulin orders before administering the next dose. , Routine glucose (Glutose) 40% oral geL 15-30 g of glucose, Buccal, EVERY 15 MIN PRN, Starting on Wed06/21/23 at 1403, Until Wed06/22/23 at 2229, Low blood sugar, For BG 50-70 mg/dL: Oral treatment preferred: If able to drink, give 120 mL juice or regular (not diet) soda OR if NPO, give 15 gram glucose 40% oral gel massaged into buccal mucosa OR if unconscious or uncooperative, give 25 gram (250 mL) dextrose 10% IV over 15 minutes per protocol OR, if no IV access, 1 mg glucagon IM. For BG less than 50 mg/dL: Oral treatment preferred: If able to drink, give 240 mL juice or regular (not diet) soda OR if NPO, give 30 gram glucose 40% oral gel massaged in buccal mucosa OR if unconscious or uncooperative, give 25 gram (250 mL) dextrose 10% IV over 15 minutes per protocol OR, if no IV access, 1 mg glucagon IM. Recheck BG in 15 minutes. May repeat juice/soda, gel, dextrose or glucagon once per episode. Notify provider if hypoglycemia does not resolve after two treatments. Providers should consider the following: administering longer-acting treatments for the duration of active insulin or hypoglycemia agent for persistent hypoglycemia and re-evaluating active insulin orders before administering the next dose. 1 tube of Glutose-15 contains 15 grams of glucose (net weight of tube = 37.5 grams.), Routine glycerin-witch Gautam (Tucks) 12.5-50 % pads Topical (Top), 4 TIMES DAILY PRN, Irritation, perineal pain, Starting on Wed06/21/23 at 1917, Until Wed06/22/23 at 2229 ibuprofen (Advil) tablet 600 mg 600 mg, Oral, EVERY 6 HOURS PRN, Starting on Wed06/21/23 at 1917, Until Wed06/22/23 at 2228, Pain, Administer orally with milk or food to minimize GI irritation. Maximum dose of 3,200 mg from all sources in 24 hours Both acetaminophen and ibuprofen, if ordered, should be given even when other ordered pain medications are indicated, Routine Given 06/22/2023 12:45 PM EDT 600 mg Given 06/22/2023 7:25 AM EDT 600 mg Given 06/22/2023 12:10 AM EDT 600 mg lactated Ringers 500 mL IV bolus at 500 mL/hr, Intravenous, ONCE PRN, 3 doses, Starting on Wed06/21/23 at 1126, Until Wed06/22/23 at 2228, Prior to epidural placement or concerning heart rate pattern or maternal condition. New Bag 06/21/2023 3:16 PM EDT 500 mL/hr lactated ringers infusion 100 mL/hr, Intravenous, CONTINUOUS, Starting on Wed06/21/23 at 1215, Until Wed06/21/23 at 1917, Maximum 125 mL in one hour. New Bag 06/21/2023 2:26 PM EDT 100 mL/hr 100 mL/hr levothyroxine (Synthroid) tablet 250 mcg 250 mcg, Oral, EVERY MORNING, First dose on Wed06/22/23 at 0700, Until Discontinued, Routine Given 06/22/2023 7:25 AM EDT 250 mcg lidocaine (Glydo) 2 % gel 6 mL 6 mL, Topical (Top), ONCE PRN, 1 dose, Starting on Wed06/21/23 at 1126, Until Wed06/22/23 at 2229, Repair of laceration following delivery and/or prior to urinary catheter placement., 11 mL for intra-urethral use only, Routine oxytocin (Pitocin) (0.06 units/mL) in sodium chloride 0.9% 500 mL infusion 30 Units (500 mL), Intravenous, Administer over 1 Hours, ONCE PRN, 1 dose, Starting on Wed06/21/23 at 1126, Until Wed06/21/23 at 1952, At the discretion of the provider following delivery., . , Routine Continued Bag 06/21/2023 6:52 PM EDT 30 Units oxytocin (Pitocin) (0.06 units/mL) in sodium chloride 0.9% 500 mL infusion 1-30 delfina-units/min (1-30 mL/hr), Intravenous, CONTINUOUS, Starting on Wed06/21/23 at 1500, Until Wed06/21/23 at 1918, Piggyback into Lactated Ringers; Start at 2 milliunits/minute and increase by 2 milliunits/minutes every 30 minutes to achieve contractions that are every 2-3 minutes, lasting 60-90 seconds with 1 minute resting tone between contractions palpating strong. Notify OB Provider when oxytocin dose needs to exceed 20 milliunits/minute. Oxytocin may not be initiated until: - 1 hour after Cervidil is removed - 4 hours after last minute misoprostol dose is given, Routine Rate/Dose Change 06/21/2023 5:35 PM EDT 10 delfina-units/min 10 mL/hr Rate/Dose Change 06/21/2023 5:00 PM EDT 8 delfina-units/min 8 mL/hr Rate/Dose Change 06/21/2023 3:55 PM EDT 6 delfina-units/min 6 mL/hr polyethylene glycoL (Miralax) packet 17 g 17 g, Oral, DAILY, First dose on Wed06/21/23 at 2015, Until Discontinued, Routine Given 06/22/2023 8:26 AM EDT 17 g simethicone (Gas-X Chew) 80 mg chewable tablet 80 mg 80 mg, Oral, 4 TIMES DAILY PRN, Starting on Wed06/21/23 at 1917, Until Wed06/22/23 at 2229, Cramping, gas pain, Routine Given 06/22/2023 8:25 AM EDT 80 mg sodium chloride 0.9 % (flush) (BD PosiFlush Normal Saline 0.9) flush 5 mL 5 mL, Intravenous, 2 TIMES DAILY, First dose on Wed06/21/23 at 1215, Until Discontinued, Routine Given 06/21/2023 9:00 PM EDT 5 mLs sodium chloride 0.9 % (flush) (BD PosiFlush Normal Saline 0.9) flush 5-20 mL 5-20 mL, Intravenous, EVERY 1 MIN PRN, Starting on Wed06/21/23 at 1126, Until Wed06/22/23 at 2229, flush, Flush pertains to all indwelling lines. Flush per protocol found in the job aid using the link provided on this medication record., Routine valACYclovir (Valtrex) tablet 500 mg 500 mg, Oral, DAILY, First dose on Wed06/21/23 at 1415, Until Discontinued, Routine, Indication for (Active or Suspected): Prophylaxis documented in this encounter Active and Recently Administered Medications Times are shown in EDT. Scheduled Medication Order 06/20/2023 06/21/2023 06/22/2023 levothyroxine (Synthroid) tablet 250 mcg 250 mcg, Oral, EVERY MORNING, First dose on Wed06/22/23 at 0700, Until Discontinued, Routine 0725 (Given - Provider: Malia Osman RN) polyethylene glycoL (Miralax) packet 17 g 17 g, Oral, DAILY, First dose on Wed06/21/23 at 2014, Until Discontinued, Routine 2014 (Not Given - Provider: Malia Osman RN - Reason: Patient/family refused) 0826 (Given - Provider: Iram Delgado RN) sodium chloride 0.9 % (flush) (BD PosiFlush Normal Saline 0.9) flush 5 mL 5 mL, Intravenous, 2 TIMES DAILY, First dose on Wed06/21/23 at 1215, Until Discontinued, Routine 1215 (Due)2100 (Given - Provider: Malia Osman, ROULA) 0900 (Due) valACYclovir (Valtrex) tablet 500 mg 500 mg, Oral, DAILY, First dose on Wed06/21/23 at 1415, Until Discontinued, Routine, Indication for (Active or Suspected): Prophylaxis 1415 (Not Given - Provider: Jolene Harrington RN - Reason: Contraindicated - Comment: pt took this am) 0900 (Not Given - Provider: Iram Delgado RN - Reason: Order parameters not met) Continuous Medication Order 06/20/2023 06/21/2023 06/22/2023 fentaNYL (pf) (2 mcg/mL), BUpivacaine (pf) 0.0625% in sodium chloride 0.9% 250 mL epidural (CANCELED)(Linked Group 1) Epidural, Epidural Type: PIEB + PCEA, PIEB Dose: 8 mL, PIEB Frequency: 45 minutes, PCEA Dose: 8 mL, PCEA Frequency: Every 20 minutes, 1 Hour Limit: 38 mL/hr, Maximum rate for continuous infusion is 16 mL per hour Maximum intermittent bolus is 15 mL Continuous = basal rate for epidural infusion PCEA (Patient Controlled Epidural Analgesia) = bolus from infusion delivered after patient presses demand button PIEB (Programmed Intermittent Epidural Bolus) = bolus from infusion delivered on a programmed frequency 1601 (New Bag - Provider: Jolene Harrington RN)191 (Due: Stopped - Provider: Dayami Crawford MD) lactated ringers infusion (CANCELED) 100 mL/hr, Intravenous, CONTINUOUS, Starting on Wed06/21/23 at 1215, Until Wed06/21/23 at 191, Maximum 125 mL in one hour. 1215 (Hold - Provider: Jolene Harrington RN - Reason: Contraindicated)1426 (New Bag - Provider: Jolene Harrington RN)191 (Stopped - Provider: Jolene Harrington RN) oxytocin (Pitocin) (0.06 units/mL) in sodium chloride 0.9% 500 mL infusion (CANCELED) 1-30 delfina-units/min (1-30 mL/hr), Intravenous, CONTINUOUS, Starting on Wed06/21/23 at 1500, Until Wed06/21/23 at 1918, Piggyback into Lactated Ringers; Start at 2 milliunits/minute and increase by 2 milliunits/minutes every 30 minutes to achieve contractions that are every 2-3 minutes, lasting 60-90 seconds with 1 minute resting tone between contractions palpating strong. Notify OB Provider when oxytocin dose needs to exceed 20 milliunits/minute. Oxytocin may not be initiated until: - 1 hour after Cervidil is removed - 4 hours after last minute misoprostol dose is given, Routine 1425 (New Bag - Provider: Jolene Harrington RN)1515 (Rate/Dose Change - Provider: Danay Cabrera RN)1555 (Rate/Dose Change - Provider: Jolene Harrington RN)1700 (Rate/Dose Change - Provider: Jolene Harrington RN)1735 (Rate/Dose Change - Provider: Jolene Harrington, ROULA)1851 (Stopped - Provider: Jolene Harrington RN) PRN Medication Order 06/20/2023 06/21/2023 06/22/2023 acetaminophen (Tylenol) tablet 975 mg 975 mg, Oral, EVERY 6 HOURS PRN, Starting on Wed06/21/23 at 1917, Until Wed06/22/23 at 2229, Pain, Maximum dose of acetaminophen is 4,000 mg from all sources in 24 hours. Both acetaminophen and ibuprofen, if ordered, should be given even when other ordered pain medications are indicated., Routine 2153 (Given - Provider: Malia Osman, ROULA) 0442 (Given - Provider: Malia Osman RN)1245 (Given - Provider: Iram Delgado RN) calcium carbonate (TUMS) chewable tablet 1,000 mg 1,000 mg (2 tablet), Oral, EVERY 4 HOURS PRN, Starting on Wed06/21/23 at 1128, Until Wed06/22/23 at 2229, Heartburn, Routine dextrose 10% infusion(Linked Group 2) 250 mL, at 1,000 mL/hr, Intravenous, EVERY 15 MIN PRN, Starting on Wed06/21/23 at 1403, Until Wed06/22/23 at 2229, For BG 50-70 mg/dL: Oral treatment preferred: If able to drink, give 120 mL juice or regular (not diet) soda OR if NPO, give 15 gram glucose 40% oral gel massaged into buccal mucosa OR if unconscious or uncooperative, give 25 gram (250 mL) dextrose 10% IV over 15 minutes per protocol OR, if no IV access, 1 mg glucagon IM. For BG less than 50 mg/dL: Oral treatment preferred: If able to drink, give 240 mL juice or regular (not diet) soda OR if NPO, give 30 gram glucose 40% oral gel massaged in buccal mucosa OR if unconscious or uncooperative, give 25 gram (250 mL) dextrose 10% IV over 15 minutes per protocol OR, if no IV access, 1 mg glucagon IM. Recheck BG in 15 minutes. May repeat juice/soda, gel, dextrose or glucagon once per episode. Notify provider if hypoglycemia does not resolve after two treatments. Providers should consider the following: administering longer-acting treatments for the duration of active insulin or hypoglycemia agent for persistent hypoglycemia and re-evaluating active insulin orders before administering the next dose. glucagon (Glucagen) (1 mg/mL) injection solution 1 mg(Linked Group 2) 1 mg, Intramuscular, EVERY 15 MIN PRN, Starting on Wed06/21/23 at 1403, Until Wed06/22/23 at 2229, Low blood sugar, For BG 50-70 mg/dL: Oral treatment preferred: If able to drink, give 120 mL juice or regular (not diet) soda OR if NPO, give 15 gram glucose 40% oral gel massaged into buccal mucosa OR if unconscious or uncooperative, give 25 gram (250 mL) dextrose 10% IV over 15 minutes per protocol OR, if no IV access, 1 mg glucagon IM. For BG less than 50 mg/dL: Oral treatment preferred: If able to drink, give 240 mL juice or regular (not diet) soda OR if NPO, give 30 gram glucose 40% oral gel massaged in buccal mucosa OR if unconscious or uncooperative, give 25 gram (250 mL) dextrose 10% IV over 15 minutes per protocol OR, if no IV access, 1 mg glucagon IM. Recheck BG in 15 minutes. May repeat juice/soda, gel, dextrose or glucagon once per episode. Notify provider if hypoglycemia does not resolve after two treatments. Providers should consider the following: administering longer-acting treatments for the duration of active insulin or hypoglycemia agent for persistent hypoglycemia and re-evaluating active insulin orders before administering the next dose. , Routine glucose (Glutose) 40% oral geL(Linked Group 2) 15-30 g of glucose, Buccal, EVERY 15 MIN PRN, Starting on Wed06/21/23 at 1403, Until Wed06/22/23 at 2229, Low blood sugar, For BG 50-70 mg/dL: Oral treatment preferred: If able to drink, give 120 mL juice or regular (not diet) soda OR if NPO, give 15 gram glucose 40% oral gel massaged into buccal mucosa OR if unconscious or uncooperative, give 25 gram (250 mL) dextrose 10% IV over 15 minutes per protocol OR, if no IV access, 1 mg glucagon IM. For BG less than 50 mg/dL: Oral treatment preferred: If able to drink, give 240 mL juice or regular (not diet) soda OR if NPO, give 30 gram glucose 40% oral gel massaged in buccal mucosa OR if unconscious or uncooperative, give 25 gram (250 mL) dextrose 10% IV over 15 minutes per protocol OR, if no IV access, 1 mg glucagon IM. Recheck BG in 15 minutes. May repeat juice/soda, gel, dextrose or glucagon once per episode. Notify provider if hypoglycemia does not resolve after two treatments. Providers should consider the following: administering longer-acting treatments for the duration of active insulin or hypoglycemia agent for persistent hypoglycemia and re-evaluating active insulin orders before administering the next dose. 1 tube of Glutose-15 contains 15 grams of glucose (net weight of tube = 37.5 grams.), Routine glycerin-witch Gautam (Tucks) 12.5-50 % pads Topical (Top), 4 TIMES DAILY PRN, Irritation, perineal pain, Starting on Wed06/21/23 at 1917, Until Wed06/22/23 at 2229 ibuprofen (Advil) tablet 600 mg 600 mg, Oral, EVERY 6 HOURS PRN, Starting on Wed06/21/23 at 1917, Until Wed06/22/23 at 2228, Pain, Administer orally with milk or food to minimize GI irritation. Maximum dose of 3,200 mg from all sources in 24 hours Both acetaminophen and ibuprofen, if ordered, should be given even when other ordered pain medications are indicated, Routine 0010 (Given - Provid er: Malia Osman RN)0725 (Given - Provider: Malia Osman RN)1245 (Given - Provider: Iram Delgado RN) lactated Ringers 500 mL IV bolus at 500 mL/hr, Intravenous, ONCE PRN, 3 doses, Starting on Wed06/21/23 at 1126, Until Wed06/22/23 at 222, Prior to epidural placement or concerning heart rate pattern or maternal condition. 1516 (New Bag - Provider: Danay Cabrera RN)1616 (Stopped - Provider: Jolene Harrington, ROULA) lidocaine (Glydo) 2 % gel 6 mL 6 mL, Topical (Top), ONCE PRN, 1 dose, Starting on Wed06/21/23 at 1126, Until Wed06/22/23 at 2229, Repair of laceration following delivery and/or prior to urinary catheter placement., 11 mL for intra-urethral use only, Routine oxytocin (Pitocin) (0.06 units/mL) in sodium chloride 0.9% 500 mL infusion (COMPLETED) 30 Units (500 mL), Intravenous, Administer over 1 Hours, ONCE PRN, 1 dose, Starting on Wed06/21/23 at 1126, Until Wed06/21/23 at 1952, At the discretion of the provider following delivery., . , Routine 185 (Continued Bag - Provider: Jolene Harrington, ROULA) simethicone (Gas-X Chew) 80 mg chewable tablet 80 mg 80 mg, Oral, 4 TIMES DAILY PRN, Starting on Wed06/21/23 at 1917, Until Wed06/22/23 at 2229, Cramping, gas pain, Routine 0825 (Given - Provid er: Iram Delgado RN) sodium chloride 0.9 % (flush) (BD PosiFlush Normal Saline 0.9) flush 5-20 mL 5-20 mL, Intravenous, EVERY 1 MIN PRN, Starting on Wed06/21/23 at 1126, Until Wed06/22/23 at 2229, flush, Flush pertains to all indwelling lines. Flush per protocol found in the job aid using the link provided on this medication record., Routine Linked Groups Order Group 1: fentaNYL (pf) (2 mcg/mL), BUpivacaine (pf) 0.0625% in sodium chloride 0.9% 250 mL epidural (CANCELED)Jump to med Epidural, Epidural Type: PIEB + PCEA, PIEB Dose: 8 mL, PIEB Frequency: 45 minutes, PCEA Dose: 8 mL, PCEA Frequency: Every 20 minutes, 1 Hour Limit: 38 mL/hr, Maximum rate for continuous infusion is 16 mL per hour Maximum intermittent bolus is 15 mL Continuous = basal rate for epidural infusion PCEA (Patient Controlled Epidural Analgesia) = bolus from infusion delivered after patient presses demand button PIEB (Programmed Intermittent Epidural Bolus) = bolus from infusion delivered on a programmed frequency And Neuraxial shift total and Settings verification (CANCELED) Epidural, 2 Times Daily- Neuraxial Shift Total, First dose on Wed06/21/23 at 1800, Until Discontinued And Neuraxial (Epidural) pringle (CANCELED) Epidural, CONTINUOUS PRN, Starting on Wed06/21/23 at 1521, Until Wed06/21/23 at 1918 Group 2: glucose (Glutose) 40% oral geLJump to med 15-30 g of glucose, Buccal, EVERY 15 MIN PRN, Starting on Wed06/21/23 at 1403, Until Wed06/22/23 at 2229, Low blood sugar, For BG 50-70 mg/dL: Oral treatment preferred: If able to drink, give 120 mL juice or regular (not diet) soda OR if NPO, give 15 gram glucose 40% oral gel massaged into buccal mucosa OR if unconscious or uncooperative, give 25 gram (250 mL) dextrose 10% IV over 15 minutes per protocol OR, if no IV access, 1 mg glucagon IM. For BG less than 50 mg/dL: Oral treatment preferred: If able to drink, give 240 mL juice or regular (not diet) soda OR if NPO, give 30 gram glucose 40% oral gel massaged in buccal mucosa OR if unconscious or uncooperative, give 25 gram (250 mL) dextrose 10% IV over 15 minutes per protocol OR, if no IV access, 1 mg glucagon IM. Recheck BG in 15 minutes. May repeat juice/soda, gel, dextrose or glucagon once per episode. Notify provider if hypoglycemia does not resolve after two treatments. Providers should consider the following: administering longer-acting treatments for the duration of active insulin or hypoglycemia agent for persistent hypoglycemia and re-evaluating active insulin orders before administering the next dose. 1 tube of Glutose-15 contains 15 grams of glucose (net weight of tube = 37.5 grams.), Routine Or dextrose 10% infusionJump to med 250 mL, at 1,000 mL/hr, Intravenous, EVERY 15 MIN PRN, Starting on Wed06/21/23 at 1403, Until Wed06/22/23 at 2229, For BG 50-70 mg/dL: Oral treatment preferred: If able to drink, give 120 mL juice or regular (not diet) soda OR if NPO, give 15 gram glucose 40% oral gel massaged into buccal mucosa OR if unconscious or uncooperative, give 25 gram (250 mL) dextrose 10% IV over 15 minutes per protocol OR, if no IV access, 1 mg glucagon IM. For BG less than 50 mg/dL: Oral treatment preferred: If able to drink, give 240 mL juice or regular (not diet) soda OR if NPO, give 30 gram glucose 40% oral gel massaged in buccal mucosa OR if unconscious or uncooperative, give 25 gram (250 mL) dextrose 10% IV over 15 minutes per protocol OR, if no IV access, 1 mg glucagon IM. Recheck BG in 15 minutes. May repeat juice/soda, gel, dextrose or glucagon once per episode. Notify provider if hypoglycemia does not resolve after two treatments. Providers should consider the following: administering longer-acting treatments for the duration of active insulin or hypoglycemia agent for persistent hypoglycemia and re-evaluating active insulin orders before administering the next dose. Or glucagon (Glucagen) (1 mg/mL) injection solution 1 mgJump to med 1 mg, Intramuscular, EVERY 15 MIN PRN, Starting on Wed06/21/23 at 1403, Until Wed06/22/23 at 2229, Low blood sugar, For BG 50-70 mg/dL: Oral treatment preferred: If able to drink, give 120 mL juice or regular (not diet) soda OR if NPO, give 15 gram glucose 40% oral gel massaged into buccal mucosa OR if unconscious or uncooperative, give 25 gram (250 mL) dextrose 10% IV over 15 minutes per protocol OR, if no IV access, 1 mg glucagon IM. For BG less than 50 mg/dL: Oral treatment preferred: If able to drink, give 240 mL juice or regular (not diet) soda OR if NPO, give 30 gram glucose 40% oral gel massaged in buccal mucosa OR if unconscious or uncooperative, give 25 gram (250 mL) dextrose 10% IV over 15 minutes per protocol OR, if no IV access, 1 mg glucagon IM. Recheck BG in 15 minutes. May repeat juice/soda, gel, dextrose or glucagon once per episode. Notify provider if hypoglycemia does not resolve after two treatments. Providers should consider the following: administering longer-acting treatments for the duration of active insulin or hypoglycemia agent for persistent hypoglycemia and re-evaluating active insulin orders before administering the next dose. , Routine documented in this encounter Care Teams Senior Tax Accountant Relationship Specialty Start Date End Date Marva Hitchcock MD [address] [place] [id number] PCP - General Family Medicine 06/17/20 documented as of this encounter
--- OUTSIDE RECORDS SUMMARY | 2023-12-04 20:13 | XMS_ITS | Encounter Summary ---
Author Organization [facility] Address [address] [place] [address] Care Team Providers Care Certified Master Safe Technician Name Role Phone Ayla Solomon DO Primary Care Provider [phone] Encounter Details Date Type Department Care Team (Late st Contact Info) Description 12/14/2022 Lab Requisition [facility] Medicine - [facility] [address] [place] [address] Outr Resulting Lab, Provider Social History Tobacco Use Types Packs/Day Years Used Date Smoking Tobacco: Former Cigarettes 0.5 5 Smokeless Tobacco: Never Comments:quit prior to datin g ultrasound Alcohol Use Standard Drinks/Week Comments No 8 (1 standard drink = 0.6 oz pure alcohol) no drinking since dating ultrasound PHQ-2 Answer Date Recorded PHQ-2 Score 1 10/01/2019 Hunger Vital Sign Answer Date Recorded Worried About Running Out of Food in the Last Ye ar Never true 11/07/2019 Ran Out of Food in the Last Year Never true 11/07/2019 Branson Depression Scale Answer Date Recorded Br[place] Depression Scale Total 21 09/17/2021 The thought of harming myself has occurred to me . Sometimes 09/17/2021 Interpersonal Safety Answer Date Record ed Physically Hurt Never 08/04/2020 Verbally Threaten Not on file 08/04/2020 Sex and Gender Information Value Date Recorded Sex Assigned at Not on file Gender Identity Female 03/02/2019 11:17 EST Sexual Orientation Not on file documented as of this encounter Functional Status Functional Status Response Date of Assess ment Are you deaf or do you have serious difficulty h earing? No 08/06/2021 Are you blind or do you have serious difficulty seeing, even when wearing glasses? No 08/06/2021 Do you have serious difficul ty walking or climbing stairs? (5 years old or older) No 08/06/2021 Do you have difficulty dress ing or bathing? (5 years old or older) No 08/06/2021 Because of a physical, menta l, or emotional condition, do you have difficulty doing errands alone such as visiting a doctor's office or shopping? (15 years old or older) No 08/06/2021 Cognitive Status Response Date of Assessm ent Because of a physical, menta l, or emotional condition, do you have serious difficulty concentrating, remembering, or making decisions? (5 years old or older) No 08/06/2021 documented as of this encounter Plan of Treatment Not on file documented as of this encounter Goals Goal Patient Goal Type Associated Problems Recent Progress Patient-Stated? Author Weight Loss General Obesity, Class III, BMI 40-49.9 (morbid obesity) No Marva Hitchcock Note: Increased activity getting out doors with daughter documented as of this encounter Procedures Procedure Name Priority Date/Time Associated Diagnosis Comments RUBELLA IGG ANTIBODY Routine 12/14/2022 12:15 EDT VARICELLA IGG ANTIBODY Routine 12/14/2022 12:15 EDT documented in this encounter Results * VARICELLA IGG ANTIBODY (12/14/2022 12:15 EDT) Varicella IgG Ab Positive See Note 12/15/2022 12:45 EDT [facility] Comment:Presence of detectab le Varicella Zoster virus IgG antibodies. Blood VENOUS BLOOD / Unknown 12/14/2022 12:15 EDT 12/14/2022 21:41 EDT Provider Outr Resulting Lab IMMUNOLOGY A ND SEROLOGY ORDERABLES [facility] [address] [place] [address] * RUBELLA IGG ANTIBODY (12/14/2022 12:15 EDT) Rubella IgG Ab Positive See Note 12/15/2022 12:50 EDT [facility] Comment:Positive for IgG ant ibodies to Rubella virus. Blood VENOUS BLOOD / Unknown 12/14/2022 12:15 EDT 12/14/2022 21:41 EDT Provider Outr Resulting Lab CHEMISTRY & BLOOD GAS ORDERABLES [facility] [address] [place] [address] documented in this encounter Visit Diagnoses Not on filedocumented in this encounter Care Teams Certified Master Safe Technician Relationship Specialty Start Date End Date Ayla Soloomn DO [facility] [facility] [address] [place] [address] PCP - General General Surgery 04/12/21 documented as of this encounter
--- OUTSIDE RECORDS SUMMARY | 2023-12-04 20:13 | XMS_ITS | Encounter Summary ---
Author Organization [facility] Address [facility] [place] [address] Care Team Providers Care Supervisor [employer] Name Role Phone Unavailable Primary Care Provider Unavailabl e Encounter Details Date Type Department Care Team (Late st Contact Info) Description 06/14/2020 12:25 PM EDT Ancillary Procedure Radiology Library at [facility] [place] [address] William Lorenzo MD [facility] [place] [address] Social History Tobacco Use Types Packs/Day Years Used Date Smoking Tobacco: Never Assessed Sex and Gender Information Value Date Recorded Sex Assigned at Female 03/20/2021 11:17 AM EST Gender Identity Not on file Sexual Orientation Not on file documented as of this encounter Plan of Treatment Not on file documented as of this encounter Procedures Procedure Name Priority Date/Time Associated Diagnosis Comments FILM LIBRARY STORAGE ONLY ULTRASOUND STUDY Routine 06/14/2020 12:18 PM EDT documented in this encounter Results * Film Library- Storage Only Ultrasound Study (06/14/2020 12:18 PM EDT) Narrative AKBAR - 06/14/2020 12:18 PM EDT This exam is auto-finalizing. It's purpose is for storage only. William Lorenzo MD IMG FILM LIBRARY ORD ERABLES [facility] [place] documented in this encounter Visit Diagnoses Not on filedocumented in this encounter
--- OUTSIDE RECORDS SUMMARY | 2023-12-04 20:13 | XMS_ITS | Clinical Summary ---
Author Organization [facility] Address [address] [place] [address] Care Team Providers Care Aeronautical Engineering Professor Name Role Phone Ayla Solomon Primary Care Provider Allergies Active Allergy Reactions Criticality Noted Date Comments Loracarbef Nausea And Vomiting 12/11/2010 Yeast, Dried Nausea And Vomiting 01/27/2013 If consumes large amounts will develop N/V Medications Medication Sig Dispensed Refills Start Date End Date Status albuterol 90 mcg/actuation inhalerIndications:M ild intermittent asthma without complication Inhale 2 Puffs as directed every 4 hours as needed for Wheezing. 1 Inhaler 11 09/13/2019 Active valACYclovir (VALTREX) 500 mg tabletIndications:PC R DNA positive for HSV1 TAKE ONE TABLET BY MOUTH TWICE A DAY 10 Tab 1 03/15/2020 Active Additional Information Patient taking differently: PRN, TAKE ONE TABLET BY MOUTH TWICE A DAY, Reported on 2021 no122/iron/folic acid ( MULTI ORAL) Take by mouth. Active doxylamine (UNISOM, DOXYLAMINE,) 25 mg tablet tablet Take 1 Tablet by mouth at bedtime as needed for Nausea. 28 Tablet 3 07/01/2021 Active Additional Information Patient not taking.Reported on 08/13/2021 insulin pen needles 31G x 5/16 BD UltraFine Short. Uses 4 pen needles daily with insulin administration. 100 Each 3 07/29/2021 Active Additional Information Patient not taking.Reported on 08/13/2021 acetaminophen (TYLENOL) 500 mg tablet Take 2 Tablets by mouth every 8 hours as needed for Pain. 08/08/2021 Active calcium carbonate (TUMS) 200 mg calcium (500 mg) tablet,chewable Take 2 Tablets by mouth every 2 hours as needed for Heartburn or Indigestion. 08/08/2021 Active Additional Information Patient not taking.Reported on 08/13/2021 ibuprofen (MOTRIN) 800 mg tablet Take 1 Tablet by mouth every 8 hours as needed for Pain. 08/08/2021 Active polyethylene glycol 3350 (MIRALAX) 17 gram packet Take 17 g by mouth 2 times daily as needed (constipation). 08/08/2021 Active Additional Information Patient not taking.Reported on 08/13/2021 sertraline (ZOLOFT) 50 mg tablet Take 1 Tablet by mouth daily. 30 Tablet 1 10/02/2021 Active levothyroxine (SYNTHROID) 200 mcg tablet Take 1 Tablet by mouth daily. 90 Tablet 3 01/06/2023 Active levothyroxine (SYNTHROID) 50 mcg tablet Take 1 Tablet by mouth daily. 90 Tablet 3 01/06/2023 Active Hospital, Clinic, or Other Facility Administered Medication Ordered Dose Route Frequency Start Date End Date Status etonogestreL (NEXPLANON) subdermal implant 68 mg 68 mg SUBDERMAL CONTINUOUS IUD/LARC 2021 09/25/2024 Active Active Problems Patient Care Coordination No te Formatting of this note migh t be different from the original. Patient has given permission for the [facility] to verbally discuss the following information with Gricelda Urbina who has the following relationship to the patient: Parent: Scheduling/Appt/Billing/Payment Information (does not include clinical information unless specifically indicated with separate option) Medical Information including symptoms, diagnosis, medications, test results and treatment plan (does not include Mental Health unless specifically indicated with separate option) Mental Health (Behavioral,Psychiatric,Chemical Dependency) health information, including my symptoms, diagnosis, medications and treatment plan Other - none Permission remains in effect until the patient elects to revoke it. Problem Noted Date Diagnosed Date Endometritis 08/13/2021 Last Assessment & Plan: 25yo 1wk PP s/p with abdominal tenderness Differential includes UTI and endometritis. Abdominal tenderness mild and could correlate with normal PP recovery, no CMT, normal lochia without notable discharge or odor. Discussed reasonable to consider mild PP endometritis and treat with PO abx, versus expectant management, continue pain control and monitoring. Patient elects to proceed with PO abx, which I have prescribed. Will draw urine sample before leaving. Patient to call if symptoms not improving within 24 hours. Gestational hypertension, third trimester 2021 Encounter for induction of labor 08/06/2021 COVID-19 affecting in third trimester 07/14/2021 Overview: + rapid test 07/14/21. Insulin controlled gestation al diabetes mellitus (GDM) during 06/16/2021 Overview: 06/09: started NPH 5u [o] weekly BPP 07/15: NPH 15u, added 3u aspart with B/L Last Assessment & Plan: MFM continues to monitor. WNL aside from 1 value of 164 after eating pretzels per pt Supervision of other normal 05/23/2021 Overview: Problems: 1) A2GDM, on good control with insulin 2) Grave's disease Datin07/31/2021, by Last Menstrual Period SOLIS: [x] PN labs: O/Ab /Rubella imm /Varicella imm /HepB neg /HepC neg /HIV neg /RPR not done [x] Pap: 07/2020 NILM [x] G/C: neg/neg [x] Urine cx: neg Screening: [x] cfDNA normal [] sequential screen [] CF/SMA [x] AFP @ 16 weeks normal 12-16 wk: [] EPDS [] ASA 162 mg if indicated 20 wk: [x] Anatomy scan normal Vaccines: [x] Flu vaccine (Dec-June) [x] TdaP (at 28wks) given at 28w visit [x] COVID Vaccine 28 wk: [x] 1h GTT per patient failed all 4 values on 3hr GTT done 05/22 32 wk: [x] Growth if indicated monthly for BMI 36%ile at 28w for anatomy scan 33% at 32 weeks 36 wk: [x] GBS: collected 07/30 [x] HSV prophylaxis indicated? Yes, already started when discussed on 07/01 [] VPMS/Opiate Consent [] PP contraceptive plan -- undecided on 07/01 [x] Labor & preferences discussed -- would want IOL on 08/05 at 39w0d or after 08/08 (daughter's bday) [] Breast Feeding Class [] Merchandise Support Associate/Circumcision PP: [] EPDS [] Contraception [] Pap Last Assessment & Plan: Continued elevated BP during office visit as well as BPP/NST earlier. Testing results not available yet, WNL per pt. Pt endorses intermittent epigastric pain and lower extremity edema. Denies TRIVEDI, visual changes, chest pain, SOB, or facial edema. 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 Valtrex at 36w Status post radioactive iodine thyroid ablation 10/05/2012 Overview: For Grave's TSH stable, neg TSI screen Lthyroxine 175mg qday TSH qMonth, last 2.46 on 04/30/2021 Last Assessment & Plan: Monthly TSH through endocrine, scanned in our system Plans to continue to follow w/ endocrine Acanthosis nigricans 03/05/2010 Vitamin D deficiency 03/05/2010 Autoimmune disorder ([facility]) Overview: Grave's disease Resolved Problems Problem Noted Date Diagnosed Date Resolved Date Supervision of normal first , antepartum 01/08/2017 09/20/2017 BMI 37.0-37.9, adult 01/08/2017 018 Spontaneous 12/11/2016 017 Tobacco dependence 10/30/2014 8 Graves' disease 09/05/2012 08/31/2013 Surveillance of previously p rescribed implantable subdermal contraceptive 01/01/201107/2013 Overview: implanon Autoimmune thyroiditis 03/05/201008/31 Overview: Presented with high FT4 and suppressed TSH 12/06 while on [place]. 123 Iodine uptake low (1.5%, nl.10-30%) 12/06; had negative TSH rAb, TSI, anti TPO, positive anti TG Ab. Thyroid gland was diffusely enlarged. Mild symptoms of hyperthyroidism, no beta blockers started. [place] discontinued. TFTs monitored, fluctuating results. On repeated testing (10/2009) TSHr and TSI positive, hyperthyroid clinically and biochemically (FT4 2.2). Started on methimazole 03/2010. Suboptimal compliance. 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 Immunizations Name Administration Dates Next Due Historical HPV Vaccine, Unspecified 09/29/2017 Influenza Vaccine =>3yo Spli t Preservative Free IM 01/27/2013 Influenza Vaccine Quad (AFLU JEWELL) PF 0.5 ml IM (3 yrs+) 12/31/2017,01/08/2017,03/13/2015 Pneumococcal Polysaccharide (PPSV23) Vaccine (PNEUMOVAX-23) =>2YO SQ/IM 12/31/2017 Tdap Vaccine =>7YO IM 05/23/2021,05/13/2017,03/01 Surgical History Surgery Date Site/Laterality Comments LIPOMA RESECTION 03/01/2016 - 02/28/2017 on abdomen CHOLECYSTECTOMY Medical History Medical History Date Comments Asthma, exercise induced Thyroid disease Mood disorder (HCC-CMS) ADD (attention deficit disorder) Autoimmune disorder (HCC-CMS) Gr ave's disease Depression was taking meds (can't remember what), stopped in 07/2016, no counselor Herpes simplex virus (HSV) infection Insulin controlled gestation al diabetes mellitus (GDM) during 06/16/2021 Gestational hypertension, th ird trimester 08/06/2021 Family History Medical History Relation Comments Autism Brother 1 Hypertension Brother 1 Migraines Brother 1 Hypertension Brother 2 Diabetes Father Thyroid Disease Father underactive Heart Disease Maternal Grandfather Diabetes Maternal Grandmother Hypertension Maternal Grandmother Hypertension Mother Retinitis Pigmentosa Mother Thyroid Disease Other M 2nd cousin- th yroodectomy for ?, MGGM thyroid condition Diabetes Paternal Grandfather Heart Attack Paternal Grandfather High Cholesterol Paternal Grandfather Hypertension Paternal Grandfather *Other(comment) Paternal Grandmother post surgic al complications Heart Attack Under 50 Neg Hx Infertility Neg Hx Relation Status Comments Brother 1 Alive Brother 2 Alive Father Alive Maternal Grandfather Maternal Grandmother Alive Mother Alive Other Paternal Grandfather Paternal Grandmother Social History Tobacco Use Types Packs/Day Years Used Date Smoking Tobacco: Former Cigarettes 0.5 5 Smokeless Tobacco: Never Tobacco Cessation:Counseling Given: Yes Comments:quit prior to dating ultrasound Alcohol Use Standard Drinks/Week Comments No 8 (1 standard drink = 0.6 oz pure alcohol) no drinking since dating ultrasound PHQ-2 Answer Date Recorded PHQ-2 Score 1 10/01/2019 Hunger Vital Sign Answer Date Recorded Worried About Running Out of Food in the Last Ye ar Never true 11/07/2019 Ran Out of Food in the Last Year Never true 11/07/2019 Pritchett Depression Scale Answer Date Recorded P[place]tt Depression Scale Total 21 09/17/2021 The thought of harming myself has occurred to me . Sometimes 09/17/2021 Interpersonal Safety Answer Date Record ed Physically Hurt Never 08/04/2020 Verbally Threaten Not on file 08/04/2020 Sex and Gender Information Value Date Recorded Sex Assigned at Not on file Gender Identity Female 03/02/2019 11:17 EST Sexual Orientation Not on file History Length Weight Head Circum Gestation Age D/C Weight APGARs Delivery Method Feeding 19 (48.3 cm) 7 lb 3 oz (3.26 kg) 40 wks Obstetrics History Para Term AB IAB SAB Ectopic Multiple Livin g Live Births 2 2 2 0 0 0 0 0 0 2 2 Date Outcome GA Total Labor Labor/2nd/3rd Weight Sex Type Anes PTL Joanna A1 A5 Name Clin 2017 Term 40w 3d 12h 55m 11h 38m/1h 05m/0h 12m 3834 g (8 lb 7.2 oz) F Epidur al Livin g 8 9 Williams Adler CNM Delivery Location:[facility] 2021 Term 39w 2d 0h 06m 0h 03m/0h 03m 3456 g (7 lb 9.9 oz) F Livin g 9 10 CORNELIO PEDRAZA Sarah G, MD Delivery Location:[facility] [address] [facility]) Last Filed Vital Signs Vital Sign Reading Time Taken Comments Blood Pressure 142/97 2021 0828 EDT Pulse 88 04/12/2021 0010 EST Temperature 36.2 ??C (97.2 ??F) 08/08/2021 0745 EDT Respiratory Rate 18 08/08/2021 0745 EDT Oxygen Saturation 94% 08/08/2021 0341 EDT Inhaled Oxygen Concentration - - Weight 126.7 kg (279 lb 6.4 oz) 2021 0828 EDT Height 157.5 cm (5' 2) 08/07/2021 0500 EDT Body Mass Index 51.1 08/07/2021 0500 EDT Plan of Treatment Health Maintenance Due Date Last Done Comments Foot Exam 1993 Lipid Profile Screening (Cholesterol) 03/17/2011 03/17/2010, 06/24/2009 Hemoglobin A1C (Ha1C) 10/27/2011 04/28/2011 , 12/11/2010, 03/17/2010, Additional history exists Hepatitis B Vaccine (1 of 3 - 19+ 3-dose series) 2012 HPV Vaccines (2 - 3-dose series) 10/27/2017 09/30/19 18 Eye Exam 01/08/2018 01/08/2017 Asthma Action Plan 09/29/2018 09/29/2017, 01/08/2017 Pneumococcal Immunization (2 of 2 - PCV) 12/31/2018 12/31/2017 Social Determinants Of Healt h (SDOH) 05/25/2019 05/24/2018 Depression Screening 10/29/2019 10/28/2018, 09/29/2017, 11/27/2014 Preventive Care Visit 03/02/2021 03/02/2019 , 09/29/2017, 09/29/2017, Additional history exists Microalbumin/Creatinine Ratio 08/06/2022 08/06/2021, 07/30/2021 Advance Directive Review 05/25/2023 Pap Smear (Cervical Cancer Screening) 08/15/2023 08/14/2020, 09/20/2017, 09/25/2014 Cervical Cancer Screening 09/27/2023 HPV/Cotest (Cervical Cancer Screening) 09/27/2023 COVID-19 Vaccine (2 5 season) 2023 Influenza Immunization (Adul t) (#1) 2023 12/31/2017, 01/08/2017, 03/13/2015, Additional history exists Tetanus (Adult) Immunization 05/24/2031, 05/13/2017, 03/13/2015 RETIRED Cervical Cancer Screening Discontinued 08/14/2020, 09/20/2017, 09/25/2014 Pertussis (Adult) Immunization Completed 0 05/23/2021, 05/13/2017, 03/13/2015 HIV Screening Completed 12/14/2022, 12/31, 01/19/2017, Additional history exists Hepatitis C Screen Completed 12/14/2022, 01/27/2021 Lung Function Test (Spirometry) Discontinued Goals Goal Patient Goal Type Associated Problems Recent Progress Patient-Stated? Author Weight Loss General Obesity, Class III, BMI 40-49.9 (morbid obesity) Marva Vaughn Note: Increased activity getting out doors with daughter Procedures Procedure Name Priority Date/Time Associated Diagnosis Comments HEPATITIS C AB W REFLEX TO HCV RNA BY PCR Routine 12/14/2022 12:15 EDT HIV 1/2 ANTIGEN AND ANTIBODY, 4TH GENERATION Routine 12/14/2022 12:15 EDT PROTEIN/CREATININE RATIO, URINE Routine 08/06/2021 12:00 EDT PAP TEST Today 08/14/2020 13:45 EDT Encounter for general adult medical examination without abnormal findings Encounter for screening for malignant neoplasm of cervix HEMOGLOBIN A1C Routine 04/28/2011 14:00 EST LIPID PROFILE (INCLUDES CHOLESTEROL, TRIGLYCERIDES, HDL, LDL) Routine 03/17/2010 14:22 EST Thyroiditis, autoimmune Obesity Acanthosis nigricans Vitamin D deficiency Irregular periods/menstrual cycles from Last 3 Months or Most Recently Relevant to Health Maintenance Results * HEPATITIS C AB W REFLEX TO HCV RNA BY PCR (12/14/2022 12:15 EDT) Hep C Antibody Negative Negative 12/15/2022 10:40 EDT [facility] Blood VENOUS BLOOD / Unknown 12/14/2022 12:15 EDT 12/14/2022 21:41 EDT Provider Outr Resulting Lab CHEMISTRY & BLOOD GAS ORDERABLES Performing Organization Address City/[facility] Co de Phone Number [facility] [address] [place] [address] * HIV 1/2 ANTIGEN AND ANTIBODY, 4TH GENERATION (12/14/2022 12:15 EDT) HIV 1 and 2 Antibody/p24 Antigen, 4th Generation Negative Negative 12/15/2022 10:30 EDT [facility] Comment:If acute HIV-1 infec tion is suspected in a high risk patient, submit plasma specimen for HIV-1 RNA quantitation test. Blood VENOUS BLOOD / Unknown 12/14/2022 12:15 EDT 12/14/2022 21:41 EDT Narrative [facility] - 12/15/2022 10:30 EDT Fourth Generation assay performed on the [employer] XPT. Provider Outr Resulting Lab IMMUNOLOGY A ND SEROLOGY ORDERABLES Performing Organization Address City/[facility]/ZIP Co de Phone Number [facility] [address] [place] [address] * (ABNORMAL) PROTEIN/CREATININE RATIO, URINE (08/06/2021 12:00 EDT) Total Protein, Urine 25 See Note mg/dL 08/06/2021 12:54 EDT [facility] Comment:Reference range not established. Creatinine, Urine 48.1 See Note mg/dL 08/06/2021 12:54 EDT [facility] Comment:Reference range not established. UPRO mg/mg Cr, Ur 0.52(H) <0.18 mg/mg Creatinine 08/06/2021 12:54 EDT [facility] Urine URINE SPECIMEN COLLECTION, CLEAN CATCH / Unknown Urine Collect / Unknown 08/06/2021 12:00 EDT 08/06/2021 12:21 EDT Lucrecia Briggs MD URINALYSIS ORDERABLE S [facility] [address] [place] [address] * PAP TEST (08/14/2020 13:45 EDT) Specimens A. Cervix and/or Endocervix , ThinPrep Imaging System with Manual Evaluation 08/26/2020 12:20 T [facility] Specimen Adequacy Satisfactory for Evaluation - transformation zone component present 08/26/2020 12:20 T [facility] General Categorization Negative for intraepithelial lesion or malignancy 08/26/2020 12:20 T [facility] Attestation . 08/26/2020 12:20 [facility] at 1220 Clinical History See below 08/27/19 12:20 EDT [facility] Performing Lab [facility] 08/26/2020 12:20 EDT [facility] Scanned Images 08/26/2020 12:20 EDT [facility] Papanicolaou smear specimen (specimen) CERVIX UTERI STRUCTURE / Unknown 08/14/2020 13:45 EDT 08/16/2020 16:07 EDT Taylor Gutierrez NP PATHOLOGY ORDERABLES Performing Organization Address [facility] Co de Phone Number [facility] [address] [place] [address] * HEMOGLOBIN A1C (04/28/2011 14:00 EST) Hemoglobin A1C 4.7 % [facility] Comment: Shortened red blood cell survival will decrease Hemoglobin A1C values. Reference Range: <5.7% Normal 5.7-6.4% Increased risk for diabetes =>6.5% Diagnostic for diabetes (if confirmed) The A1c goal for non adults in general is <7%. The A1c goal for selected patients may be significantly lower than 7% if this can be achieved without significant hypoglycemia or other adverse effects of treatment. Est Avg Glucose 88 mg/dl [facility] Comment: eAG represents the A1c result expressed as average glucose in mg/dl. 04/28/2011 14:0 0 EST 04/28/2011 14:15 EST Paradise Reyes MD CHEMISTRY & BLOOD GA S ORDERABLES Performing Organization Address [facility] de Phone Number [facility] [address] [place] [address] * (ABNORMAL) LIPID PROFILE (INCLUDES CHOLESTEROL, TRIGLYCERIDES, HDL, LDL) (03/17/2010 14:22 EST) Cholesterol 132 mg/dl [facility] Comment:Desirable:<200 Borde rline High:200-239 High:>gw=103 Triglycerides 217(H) 37 - 140 mg/dl [facility] HDL 43 mg/dl [facility] Comment:Low:<40 High(Desirab le):>or=60 LDL, Calculated 46 mg/dl [facility] Comment: Optimal:<100 Above optimal:100-129 Borderline High:130-159 High:160-189 Very High:>ze=264 Chol/HDL Ratio 3.1 [facility] Fasting? No [facility] Blood specimen (specimen) 03/17/2010 14:22 EST 03/17/2010 14:27 EST Paradise Reyes MD CHEMISTRY & BLOOD GA S ORDERABLES [facility] [address] [place] [address] from Last 3 Months or Most Recently Relevant to Health Maintenance Advance Directives For more information, please contact: [phone] Documents on File Type Date Recorded Patient Pediatrics Teacher Expl anation Advance Directive 05/24/2018 16:21 Appointment of a Health Care Agent * Full Code (Latest Code Status on File) Date Activated Date Inactivated Comments 08/06/2021 11:28 08/08/2021 14:32 Question Answer Comments When the patient has NO PULSE: Full Code / CPR Who Made the Decision? Default/Not Discussed * Full Code Date Activated Date Inactivated Comments 04/12/2021 6:40 04/12/2021 11:28 Question Answer Comments When the patient has NO PULSE: Full Code / CPR Who Made the Decision? Default/Not Discussed * Full Code Date Activated Date Inactivated Comments 08/08/2017 20:18 08/10/2017 19:41 Question Answer Comments Reason for decision includes: Full code consistent with overall plan of care Who participated in the discussion? Not Discusse d * Full Code Date Activated Date Inactivated Comments 08/08/2017 11:57 08/08/2017 20:18 Question Answer Comments Reason for decision includes: Full code consistent with overall plan of care Who participated in the discussion? Not Discusse d * Full Code Date Activated Date Inactivated Comments 07/26/2017 17:31 07/26/2017 20:07 Question Answer Comments Reason for decision includes: Full code consistent with overall plan of care Who participated in the discussion? Not Discusse d Care Teams Aeronautical Engineering Professor Relationship Specialty Start Date End Date Ayla Solomon DO [facility] [address] [place] [address] PCP - General General Surgery 04/12/21
--- OUTSIDE RECORDS SUMMARY | 2023-12-04 20:13 | XMS_ITS | Encounter Summary ---
Author Organization [facility] Address [facility] [place] [address] Care Team Providers Care Regeneration Operator Name Role Phone Unavailable Primary Care Provider Unavailabl e Encounter Details Date Type Department Care Team (Late st Contact Info) Description 06/14/2020 12:20 PM EDT Ancillary Procedure Radiology Library at [facility] [place] [address] William Lorenzo MD [facility] [place] [address] Social History Tobacco Use Types Packs/Day Years [...] Associated Diagnosis Comments FILM LIBRARY STORAGE ONLY MR ABDOMEN Routine 06/14/2020 12:17 PM EDT documented in this encounter Results * Film Library- Storage Only MR Abdomen (06/14/2020 12:17 PM EDT) Narrative [facility] - 06/14/2020 12:17 PM EDT This exam is auto-finalizing. It's purpose is for storage only. William Lorenzo MD IMG FILM LIBRARY ORD ERABLES [facility] [place] documented in this encounter Visit Diagnoses Not on filedocumented in this encounter
--- OUTSIDE RECORDS SUMMARY | 2023-12-04 20:13 | XMS_ITS | Encounter Summary ---
Author Organization [facility] Address [facility] [place] [address] Care Team Providers Care Box Lining Machine Operator Name Role Phone Marva Hitchcock MD Primary Care Provider Reason for Referral * Consultation (Routine) - Closed Specialty Diagnoses / Procedures Referred By Contac t Referred To Contact Pre-Admission Testing Diagnoses Obesity affecting , antepartum, unspecified obesity type Ely Torrez MD [facility] [address] [place] [address] [facility] Pre [place] [address] [place] [address] Referral ID Status Reason Start Date Expiration Date V isits Requested Visits Authorized [id number] Closed Consult Only 04/19/2023 04/18/2024 1 1 Reason for Visit * Consultation (Urgent) - Closed Specialty Diagnoses / Procedures Referred By Contac t Referred To Contact Obstetrics and Gynecology Diagnoses Abnormal blood sugar Encounter for supervision of normal , antepartum, unspecified Body mass index 50.0-59.9, adult Alex'Namita Mccabe MD [address] [place] [address] [facility] [address] [place] [address] Referral ID Status Reason Start Date Expiration Date V isits Requested Visits Authorized [id number] Closed Consult, Test & Treat PCP Updated and/or Approved 03/31/2023 09/28/2023 6 6 Encounter Details Date Type Department Care Team (Late st Contact Info) Description 04/19/2023 10:30 AM EST TH Visit (TeleHealth) Obstetrics [place] [address] Ely Torrez MD [facility] [address] [place] [address] Obesity affecting , antepartum, unspecified obesity type Social History Tobacco Use Types Packs/Day Years Used Date Smoking Tobacco: Former Smokeless Tobacco: Never Alcohol Use Standard Drinks/Week Comments Not Currently 0 (1 standard drink = 0.6 oz pur e alcohol) Comments Yes Sex and Gender Information Value Date Recorded Sex Assigned at Female 03/20/2021 11:17 AM EST Gender Identity Not on file Sexual Orientation Not on file documented as of this encounter Progress Notes * Cora Ernandez LNA - 04/19/2023 10:30 AM EST __x__ Patient not reached ____Patient reached and the following information was reviewed/obtained per protocol. ___Confirmed patient name and date of ___Confirmed tele med appt (Virtual visit) is downloaded and functioning ___Confirmed location of patient- TeleVisit is taking place in [place]__ [place]__ [place]__ If not on [facility], working on signing up for my Confirmed has completed any pre-visit questionnaires If has not received required previsit questionnaires, send via [facility] ___Reviewed medications, allergies, pharmacy, pain/depression, education ___Documented height/weight/LMP Other information or concerns: [phone] * Ely Torrez MD - 04/19/2023 10:30 AM EST I had the pleasure of seeing Tiny Pedraza in the [facility] offices on April 19, 2023. As you know she is a 27 year old at 30w1d by 6 week US done in OB office who presents in consultation as she plans to deliver at [facility] due to elevated BMI. To review her history, she has a history of Graves disease that was treated with ablation. She is now on Synthroid 250mcg daily and reports normal TFTs- although they are not in our system. She has mild intermittent asthma and rarely uses her albuterol inhaler. Her surgical history is notable for a l/s mat. She has had no other abdominal surgery. 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 She plans to start Valtrex for suppressionthis . Her obstetrical history is notable for two prior vaginal deliveries as outlined below G1 (2017) at 40+ weeks. Her daughter weighed 8 pounds 7 ounces. Excellent epidural G2 (2021) IOL at 39w for gHTN. Her daughter weighed 7 pounds 10 ounces. Poorly working epidural.This was also notable for GDM. 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 She is taking 10U of NPH and reports good BS control. I do not have these records. Meds: Insulin, synthroid, valtrex, magnesium, occasionally a pnv Labs O pos/ AB neg LR NIPT HIV neg, Hep B S Ag NR, Hep C NR [] RPR Counseling today Delivery at [facility]: Given her history we will plan for at least one in-person visit at [facility] to facilitate a detailed morphology and anesthesia consult. These were ordered today and will be scheduled. At that visit we can check a RPR and a T&S for our system. Graves disease: We reviewed that antibodies that cause hyperthyroidism cross the placenta and may affect the fetus. None of her prior children have had Graves. I do not see TSI antibodies this . It would be reasonable to consider checking these to inform care when she isat [facility]. I would recommend growth at 32 and 36 weeks. The 32 week scan will be done at [facility] 3. GDM: Today I reviewed the maternal and implications of GDM. We discussed the increasedrisk of preE for mom as well as the [employer] DM risk. We also discussed the risks to the fetus including abnormal growth, difficult vaginal delivery and poor transition with increasedrisk of NICU admission. Glycemic control mitigates these risks. She is following locally and reports good control.I would recommend increased testing at 32 weeks. Once a week is reasonable if control is good. Twice weekly is recommended if control has been difficult. At present we will plan for an induction of labor at 39 weeks. This will be finalized when we see her in follow up. We look forward to co-managing Tiny with you. Time spent: 30 min. Clinical service to/for this patient included [id number] work (obtaining the medical history, performing a medically appropriate examination when appropriate, counseling and educating the patient) and additional work (reviewing medical records and tests, reviewing patient-compl eted health questionnaire, ordering any medications/tests/procedures, documenting in the electronicmedical record, and communicating and coordinating care with other health care attendant). documented in this encounter Plan of Treatment Scheduled Referrals Name Type Priority Associated Diagnoses Orde r Schedule Anesthesia Pre-Operative Evaluation Referral Outpatient Referral Routine Obesity Affecting , Antepartum, Unspecified Obesity Type Ordered: 04/19/2023 documented as of this encounter Results * US OB Detailed Morphology (05/06/2023 10:56 AM EST) Anatomical Region Laterality Modality Pelvis, Abdomen Ultrasound 05/06/2023 10:4 9 AM EST Impressions 05/06/2023 10:59 AM EST 3rd Trimester - Detailed Morphology - Summary Single intrauterine with a gestational age of 32w 3d based on Early Ultrasound ??(11/05/22). Composite age based on the current ultrasound alone is 31w 6d. Estimated weight corresponds to the 27th percentile for 32w 3d. Current growth parameters are consistent with prior dating indicating normal growth. Amniotic fluid volume is normal. Detailed anatomic evaluation was performed and no structural abnormalities are noted. Anatomical survey is limited due to the late gestational age. Thank you for letting us participate in the care of this patient. If you are a health care provider and have any questions regarding this report, please contact the number above. For patients who have questions, please contact the health healthcare administration intern that requested your imaging first. ?Ariel Larsen, Staff Physician Electronically Signed Final Report ?? 05/06/2023 10:58 am Narrative 05/06/2023 10:59 AM EST OBSTETRICS REPORT ?(Signed Final 05/06/2023 10:58 am) PATIENT INFO: ID #: ? [id number] ?: ??[birth year] (27 yrs)(F) Name: ? TINY PEDRAZA ? Visit Date: 05/06/2023 10:49 am PERFORMED BY: Performed By: ? Cassie Pierre RDMS Attending: ?Suzie LACY, Ariel Sam Referred By: ?ELY HOFFMANES Location: ? [place] SERVICE(S) PROVIDED: [facility] - Detailed Morphology - [id number] ? [id number] INDICATIONS: 32 weeks gestation of ?Z3A.32 elevated BMI VITAL SIGNS: Weight (lb): 278.0 Height: ?5'1 ? BMI: ? 52.52 EVALUATION: Num Of Fetuses: ? 1 Heart Rate(bpm): ??150 Cardiac Activity: ? Observed, normal rhythm Presentation: ? Cephalic Placenta: ? Posterior P. Cord Insertion: ?Within Normal Limits Amniotic Fluid CHRISTI FV: ?Normal CHRISTI Sum(cm) ? Largest Pocket(cm) 18.8 ?6.2 RUQ(cm) ? RLQ(cm) ? LUQ(cm) ?LLQ(cm) 3.5 ? 4.0 ? 5.1 ?6.2 --------- BIOMETRY: --------- BPD: ?77.7 ??mm ? G.Age: ?? 31w 1d ?11 ??% OFD: ? 106.5 ??mm HC: ?295.3 ??mm ? G.Age: ?? 32w 4d ?19 ??% AC: ?282.1 ??mm ? G.Age: ?? 32w 2d ?44 ??% FL: ? 60.8 ??mm ? G.Age: ?? 31w 4d ?17 ??% HUM: ?53.4 ??mm ? G.Age: ?? 31w 1d ?27 ??% CER: ?41.4 ??mm ? G.Age: ?? 35w 3d ?85 ??% LV: ?5.3 ??mm CM: ?6.7 ??mm CI: ?73.0 ??% ? 70 - 86 FL/HC: ? 20.6 ??% ? 19.1 - 21.3 HC/AC: ? 1.05 ?0.96 - 1.17 FL/BPD: ?78.2 ??% ? 71 - 87 FL/AC: ? 21.6 ??% ? 20 - 24 Est. FW: ?1880 ??gm ?4 lb 2 oz ?27 ??% OB HISTORY: : ?3 ? Term: ?? 2 GESTATIONAL AGE: U/S Today: ? 31w 6d ?GEOVANI: ?? 07/02/23 Best: ?32w 3d ?? Det. By: ??Early ?GEOVANI: ?? 06/28/23 ? Ultrasound ? (11/05/22) TARGETED ANATOMY: Central Nervous System Calvarium/Cranial V.: ??Within Normal Limits Intracranial Jena: ? Limited Views Cavum: ? Visualized Parenchyma: ?Visualized Lateral Ventricles: ?Limited Views Choroid Plexus: ?Limited Views Cereb./Vermis: ? Within Normal Limits Cisterna Magna: ?Within Normal Limits Midline Falx: ?Limited Views Spine Cervical: ?Limited Views Thoracic: ?Visualized Lumbar: ?Visualized Sacral: ?Visualized Shape/Curvature: ? Visualized Head/Neck Face: ?Visualized Lips: ?Visualized Neck: ?Limited Views Nuchal Fold: ? Not evaluated at this Nasal Bone: ?Present Profile: ? Visualized Orbits/Eyes: ? Visualized Mandible: ?Limited Views Maxilla: ? Limited Views Thorax Thoracic Contour: ?Visualized Lungs: ? Visualized 4 Chamber View: ?Visualized Cardiac Activity: ?Normal Rhythm Rt Outflow Tract: ?Visualized Lt Outflow Tract: ?Visualized Aortic Arch: ? Visualized Ductal Arch: ? Limited Views SVC: ? Visualized Interventr. Septum: ?Visualized Cardiac Blanchard: ?Visualized Diaphragm: ? Visualized 3 Vessel View: ? Visualized 3 V Trachea View: ?Visualized IVC: ? Visualized Crossing: ?Visualized Abdomen Ventral Wall: ?Not well seen due to Cord Insertion: ?Not well seen due to Situs: ? Normal Stomach: ? Visualized Liver: ? Visualized Lt Kidney: ? Visualized Rt Kidney: ? Visualized Bladder: ? Visualized Bowel: ? Visualized Extremities Lt Humerus: ?Visualized Rt Humerus: ?Visualized Lt Forearm: ?Visualized Rt Forearm: ?Limited Views Lt Hand: ? Limited Views Rt Hand: ? Not seen Lt Femur: ?Visualized Rt Femur: ?Visualized Lt Lower Leg: ?Limited Views Rt Lower Leg: ?Limited Views Lt Foot: ? Limited Views Rt Foot: ? Limited Views Other Umbilical Cord: ?3 vessel cord Genitalia: ? Visualized CERVIX UTERUS ADNEXA: Right Ovary Size(cm) ? 2.0 ??x ?? 2.7 ?x ??2.6 ? Vol(ml): 7.4 Visualized Left Ovary Size(cm) ? 2.6 ??x ?? 2.7 ?x ??1.6 ? Vol(ml): 5.9 Visualized Procedure Note Ariel Larsen MD - 05/06/2023 OBSTETRICS REPORT (Signed Final 05/06/2023 10:58 am) PATIENT INFO: ID #: [id number] : [birth year] (27 yrs)(F) Name: TINY PEDRAZA Visit Date: 05/06/2023 10:49 am PERFORMED BY: Performed By: Cassie Pierre RDMS Attending: Ariel Larsen MD Referred By: ELY TORREZ Location: [place] SERVICE(S) PROVIDED: [facility] - Detailed Morphology - [id number] INDICATIONS: 32 weeks gestation of Z3A.32 elevated BMI VITAL SIGNS: Weight (lb): 278.0 Height: 5'1 BMI: 52.52 EVALUATION: Num Of Fetuses: 1 Heart Rate(bpm): 150 Cardiac Activity: Observed, normal rhythm Presentation: Cephalic Placenta: Posterior P. Cord Insertion: Within Normal Limits Amniotic Fluid CHRISTI FV: Normal CHRISTI Sum(cm) Largest Pocket(cm) 18.8 6.2 RUQ(cm) RLQ(cm) LUQ(cm) LLQ(cm) 3.5 4.0 5.1 6.2 --------- BIOMETRY: --------- BPD: 77.7 mm G.Age: 31w 1d 11 % OFD: 106.5 mm HC: 295.3 mm G.Age: 32w 4d 19 % AC: 282.1 mm G.Age: 32w 2d 44 % FL: 60.8 mm G.Age: 31w 4d 17 % HUM: 53.4 mm G.Age: 31w 1d 27 % CER: 41.4 mm G.Age: 35w 3d 85 % LV: 5.3 mm CM: 6.7 mm CI: 73.0 % 70 - 86 FL/HC: 20.6 % 19.1 - 21.3 HC/AC: 1.05 0.96 - 1.17 FL/BPD: 78.2 % 71 - 87 FL/AC: 21.6 % 20 - 24 Est. FW: 1880 gm 4 lb 2 oz 27 % OB HISTORY: : 3 Term: 2 GESTATIONAL AGE: U/S Today: 31w 6d GEOVANI: 07/02/23 Best: 32w 3d Det. By: Early GEOVANI: 06/28/23 Ultrasound (11/05/22) TARGETED ANATOMY: Central Nervous System Calvarium/Cranial V.: Within Normal Limits Intracranial Jena: Limited Views Cavum: Visualized Parenchyma: Visualized Lateral Ventricles: Limited Views Choroid Plexus: Limited Views Cereb./Vermis: Within Normal Limits Cisterna Magna: Within Normal Limits Midline Falx: Limited Views Spine Cervical: Limited Views Thoracic: Visualized Lumbar: Visualized Sacral: Visualized Shape/Curvature: Visualized Head/Neck Face: Visualized Lips: Visualized Neck: Limited Views Nuchal Fold: Not evaluated at this Nasal Bone: Present Profile: Visualized Orbits/Eyes: Visualized Mandible: Limited Views Maxilla: Limited Views Thorax Thoracic Contour: Visualized Lungs: Visualized 4 Chamber View: Visualized Cardiac Activity: Normal Rhythm Rt Outflow Tract: Visualized Lt Outflow Tract: Visualized Aortic Arch: Visualized Ductal Arch: Limited Views SVC: Visualized Interventr. Septum: Visualized Cardiac Blanchard: Visualized Diaphragm: Visualized 3 Vessel View: Visualized 3 V Trachea View: Visualized IVC: Visualized Crossing: Visualized Abdomen Ventral Wall: Not well seen due to Cord Insertion: Not well seen due to Situs: Normal Stomach: Visualized Liver: Visualized Lt Kidney: Visualized Rt Kidney: Visualized Bladder: Visualized Bowel: Visualized Extremities Lt Humerus: Visualized Rt Humerus: Visualized Lt Forearm: Visualized Rt Forearm: Limited Views Lt Hand: Limited Views Rt Hand: Not seen Lt Femur: Visualized Rt Femur: Visualized Lt Lower Leg: Limited Views Rt Lower Leg: Limited Views Lt Foot: Limited Views Rt Foot: Limited Views Other Umbilical Cord: 3 vessel cord Genitalia: Visualized CERVIX UTERUS ADNEXA: Right Ovary Size(cm) 2.0 x 2.7 x 2.6 Vol(ml): 7.4 Visualized Left Ovary Size(cm) 2.6 x 2.7 x 1.6 Vol(ml): 5.9 Visualized IMPRESSION 3rd Trimester - Detailed Morphology - Summary Single intrauterine with a gestational age of 32w 3d based on Early Ultrasound (11/05/22). Composite age based on the current ultrasound alone is 31w 6d. Estimated weight corresponds to the 27th percentile for 32w 3d. Current growth parameters are consistent with prior dating indicating normal growth. Amniotic fluid volume is normal. Detailed anatomic evaluation was performed and no structural abnormalities are noted. Anatomical survey is limited due to the late gestational age. Thank you for letting us participate in the care of this patient. If you are a health care provider and have any questions regarding this report, please contact the number above. For patients who have questions, please contact the health healthcare administration intern that requested your imaging first. Ariel Larsen, Staff Physician Electronically Signed Final Report 05/06/2023 10:58 am Ely Torrez MD IMG US OB ORDERABLE S documented in this encounter Visit Diagnoses Diagnosis Obesity affecting , antepartum, unspecified obesity type Obesity affecting , antepartum, unspecified obesity type documented in this encounter Care Teams Box Lining Machine Operator Relationship Specialty Start Date End Date Marva Hitchcock MD [address] [place] [phone] PCP - General Family Medicine 06/17/20 documented as of this encounter
--- OUTSIDE RECORDS SUMMARY | 2023-12-04 20:13 | XMS_ITS | Encounter Summary ---
Author Organization Formerly [facility] Address [facility] [place] [address] Care Team Providers Care Interlocker Maintainer Name Role Phone Marva Hitchcock MD Primary Care Provider [phone] Encounter Details Date Type Department Care Team (Late st Contact Info) Description 05/06/2023 9:51 AM EST - 05/06/2023 11:59 PM EST Hospital [place] [address] [facility] [place] [address] Obesity affecting , antepartum, unspecified obesity type Discharge Disposition: Home Social History Tobacco Use [...] on file documented as of this encounter Medications at Time of Discharge Medication Sig Dispensed Refills Start Date End Date magnesium oxide (Mag-Ox) 400 mg (241.3 mg [...] Tablet Take 200 mcg by mouth daily. Lantus Solostar U-100 Insulin 100 unit/mL (3 mL) pen 16 Units nightly. 04/16/2023 06/22/2023 OneTouch UltraSoft 2 Lancet 30 gauge Misc 04/16/2023 024 freestyle lite strips USE TO TEST FOUR TIMES A DAY 05/01/2023 06/22/2023 documented as of this encounter Plan of Treatment Not on file documented as of this encounter Procedures Procedure Name Priority Date/Time Associated Diagnosis Comments US OB DETAILED MORPHOLOGY Routine 05/06/2023 10:56 AM EST Obesity affecting , antepartum, unspecified obesity type documented in this encounter Results * US OB Detailed [...] who have questions, please contact the health customer care team coach that requested your imaging first. ?Ariel Larsen, Staff Physician Electronically Signed Final Report ?? 05/06/2023 10:58 am Narrative 05/06/2023 10:59 AM EST OBSTETRICS REPORT ?(Signed Final 05/06/2023 10:58 am) PATIENT INFO: ID #: ? [id number] ?: ??[birth year] (27 yrs)(F) Name: ? TINY PEDRAZA ? Visit Date: 05/06/2023 10:49 am PERFORMED BY: Performed By: ? Cassie Pierre RDMS Attending: ?Suzie LACY, Ariel Sam Referred By: ?ELY HOFFMANES Location: ? [place] SERVICE(S) PROVIDED: [facility] - Detailed Morphology - [id number] ? [id number] INDICATIONS: 32 weeks gestation of ?Z3A.32 elevated [...] SVC: ? Visualized Interventr. Septum: ?Visualized Cardiac Throckmorton: ?Visualized Diaphragm: ? Visualized 3 Vessel View: [...] 05/06/2023 10:58 am) PATIENT INFO: ID #: [id number] : [birth year] (27 yrs)(F) Name: TINY PEDRAZA Visit Date: 05/06/2023 10:49 am PERFORMED BY: Performed By: Cassie Pierre RDMS Attending: Ariel Larsen MD Referred By: ELY TORREZ Location: [place] SERVICE(S) PROVIDED: [facility] - Detailed Morphology - [id number] INDICATIONS: 32 weeks gestation of Z3A.32 elevated [...] Views SVC: Visualized Interventr. Septum: Visualized Cardiac Throckmorton: Visualized Diaphragm: Visualized 3 Vessel View: Visualized [...] who have questions, please contact the health customer care team coach that requested your imaging first. Ariel Larsen, Staff Physician Electronically Signed Final Report 05/06/2023 10:58 am Ely Torrez MD IMG US OB ORDERABLE S documented in this encounter Visit Diagnoses Diagnosis Obesity affecting , antepartum, unspecified obesity type documented in this encounter Care Teams Interlocker Maintainer Relationship Specialty Start Date End Date Marva Hitchcock MD [address] [place] [phone] PCP - General Family Medicine 06/17/20 documented as of this encounter
--- OUTSIDE RECORDS SUMMARY | 2023-12-04 20:13 | XMS_ITS | Encounter Summary ---
Author Organization Formerly [facility] Address [facility] [place] [address] Care Team Providers Care Hr Receptionist Name Role Phone Marva Hitchcock MD Primary Care Provider [phone] Encounter Details Date Type Department Care Team (Late st Contact Info) Description 06/21/2023 11:59 PM EDT Anesthesia [place] [address] Edward Lozada MD [facility] DR [place] [address] Anesthesia Record Procedure Summary Procedure Name Responsible Anesthesiologist Anesthesia Start Time Anesthesia Stop Time Anesthesia Labor Consult Events No events on file. Meds * Agents No agents on file. * Blood No blood administrations on file. Lines, Drains, and Airways No LDAs on file. documented in this encounter Social History Tobacco Use Types Packs/Day Years Used Date Smoking Tobacco: Former Smokeless Tobacco: Never Alcohol Use Standard Drinks/Week Comments Not Currently 0 (1 standard drink = 0.6 oz pur e alcohol) IPV Inpatient Questions Answer Date Recorded Does [...] of this encounter OR Notes * Anesthesia Preprocedure Evaluation - Edward Lozada MD - 06/21/2023 12:29 PM EDT Pre-Anesthesia Evaluation for: Tiny henriquez 27 y.o. female. Patient Active Problem List Diagnosis Date Noted *Encounter for planned induction of labor 06/21/2023 Thyroid disease affecting 06/03/2023 Maternal morbid obesity in third trimester, antepartum 05/06/2023 Past Medical History: Diagnosis Date Asthma triggers; cold temp, URI, exercise Genital HSV Graves disease teenager. Treated with thyroidectomy Obesity Past Surgical History: Procedure Laterality Date CHOLECYSTECTOMY 2019 at [facility] PRO BILIARY ENDOSCOPY, PERCUT, W/REM, STONE(S) N/A 06/17/2020 CHOLEDOCHOSCOPY, REMOVAL OF CALCULUS\CALCULI (WRVU 9.05) performed by William Lorenzo MD at [facility] ENDOSCOPY PRO ERCP, SPHINCTEROTOMY 06/17/2020 ERCP W/SPHINCTEROTOMY/PAPILLOTOMY performed by William Lorenzo MD at [facility] ENDOSCOPY PRO ERCP, W/REMOVAL STONE, HARDEEP/PANCR DUCTS 06/17/2020 ERCP W/REMOVAL CALCULI/DEBRIS FROM BILARY/PANCREATIC DUCT(S) performed by William Lorenzo MD at [facility] ENDOSCOPY PRO ERCP,DIAGNOSTIC N/A 06/17/2020 ERCP performed by William Lorenzo MD at [facility] ENDOSCOPY PRO FRAGMENT KIDNEY STONE/ ESWL Bilateral 06/17/2020 LITHOTRIPSY-HARDEEP (WRVU 9.77) performed by William Lorenzo MD at [facility] ENDOSCOPY Social History Tobacco Use Smoking status: Former Smokeless tobacco: Never Substance Use Topics Alcohol use: Not Currently Social History Substance and Sexual Activity Drug Use Not Currently Allergies Allergen Reactions Loracarbef Nausea And Vomiting Yeast, Dried Nausea And Vomiting If consumes large amounts will develop N/V Medications: MAR and/or home medications have been [...] answered. Consent obtained. Edward Lozada MD 06/21/2023 Batch Tank Controller Pager #[phone] Region - Other Informed Consent: Anesthetic plan and risks discussed with patient. Use of blood products discussed with patient who consented to blood products. Plan discussed with attending and resident. Anesthesia Screening documented in this encounter Plan of Treatment Not on file documented as of this encounter Visit Diagnoses Not on filedocumented in this encounter Care Teams Hr Receptionist Relationship Specialty Start Date End Date Marva Hitchcock MD [address] [place] [phone] PCP - General Family Medicine 06/17/20 documented as of this encounter
--- OUTSIDE RECORDS SUMMARY | 2023-12-04 20:13 | XMS_ITS | Encounter Summary ---
[facility] Organization [facility] Address [facility] [place] [address] Care Team Providers Care Signal Worker Name Role Phone Unavailable Primary Care Provider Unavailabl e Encounter Details Date Type Department Care Team (Late st Contact Info) Description 06/14/2020 Telephone [place] [address] Billie Corrigan MD [facility] [place] [address] Social History Tobacco Use Types Packs/Day Years Used Date Smoking Tobacco: Never Assessed Sex and Gender Information Value Date Recorded Sex Assigned at Female 03/20/2021 11:17 AM EST Gender Identity Not on file Sexual Orientation Not on file documented as of this encounter Miscellaneous Notes * Telephone Encounter - Billie Corrigan - 06/14/2020 12:50 PM EDT Transfer Center Call: I received a call from Dr. Villarreal at [facility]. Briefly, this is a 24 yo woman with hx of obesity, biliary colic s/p CCY in Jan 2021 (IOC neg at that time) who has presented to the ED multiple times with substernal abd pain. Labs with transaminases in the 400s, AP 100s, TB 1.6. MRCP shows non-obstructing debris in the proximal CBD. Patient appears non-infected, normal VS. Based on the information provided to me that has been outlined above, the general recommendations for this type of patient is ERCP. We discussed the options for this. The patient currently appears well without infectious symptoms. Dr. Villarreal is planning to admit her at [facility] with plan for over and back ERCP on Wednesday. If clinical changes, he will call us back to discuss more urgent ERCP. This is not an official consult, as my recommendations are limited by my inability to interview and examine the patient as well as personally review the medical record, imaging, and laboratory findings. Billie Corrigan MD Gastroenterology PGY-6 06/14/2020 12:50 PM Pager #[phone] documented in this encounter Plan of Treatment Not on file documented as of this encounter Visit Diagnoses Not on filedocumented in this encounter
--- OUTSIDE RECORDS SUMMARY | 2023-12-04 20:13 | XMS_ITS | Encounter Summary ---
[place] [address] Care Team Providers Care Protection Mgr Name Role Phone Marva Hitchcock MD Primary Care Provider [phone] Reason for Referral * Consultation (Urgent) - Closed Specialty Diagnoses / Procedures Referred By Eugene asencio Referred To Contact Obstetrics and Gynecology Diagnoses Abnormal blood sugar Encounter for supervision of normal , antepartum, unspecified Body mass index 50.0-59.9, adult Namita Stockton MD [address] [place] [address] [facility] Social Service Manager [address] [address] Referral ID Status Reason Start Date Expiration Date V isits Requested Visits Authorized [id number] Closed Consult, Test & Treat PCP Updated and/or Approved 03/31/2023 09/28/2023 6 6 Encounter Details Date Type Department Care Team (Latest Contact Info) Description 04/06/2023 Transcribe Orders eDH Incoming Referrals [phone] Namita Stockton MD [address] [place] [address] Abnormal blood sugar; Encounter for supervision of normal , antepartum, unspecified ; Body mass index 50.0-59.9, adult Social History Tobacco Use Types Packs/Day Years Used Date Smoking Tobacco: Former Smokeless Tobacco: Never Alcohol Use Standard Drinks/Week Comments Not Currently 0 (1 standard drink = 0.6 oz pur e alcohol) Sex and Gender Information Value Date Recorded Sex Assigned at Female 03/20/2021 11:17 AM EST Gender Identity Not on file Sexual Orientation Not on file documented as of this encounter Plan of Treatment Scheduled Referrals Name Type Priority Associated Diagnoses Orde r Schedule Referral to Maternal Medicine Outpatient Referral Urgent Abnormal blood sugar Encounter for supervision of normal , antepartum, unspecified Body mass index 50.0-59.9, adult Ordered: 04/06/2023 documented as of this encounter Visit Diagnoses Diagnosis Abnormal blood sugar Other abnormal glucose Encounter for supervision of normal , antepartum, unspecified Body mass index 50.0-59.9, adult Body Mass Index 50.0-59.9, adult documented in this encounter Care Teams Protection Mgr Relationship Specialty Start Date End Date Marva Hitchcock MD [address] [place] [phone] PCP - General Family Medicine 06/17/20 documented as of this encounter
--- OUTSIDE RECORDS SUMMARY | 2023-12-04 20:13 | XMS_ITS | Encounter Summary ---
Author [facility] [place] [address] Care Team Providers Care It Business Analyst Name Role Phone Marva Hitchcock MD Primary Care Provider [phone] Encounter Details Date Type Department Care Team (Late st Contact Info) Description 06/17/2020 1:00 PM EDT Anesthesia [place] [address] Chu Brewer [facility] [place] [address] Victorina Fox [facility] [place] [address] Anesthesia Record Procedure Summary Procedure Name Responsible Anesthesiologist Anesthesia Start Time Anesthesia Stop Time ERCP (WRVU 5.85) (Trunk) Chu Brewer DO 06/17/20 1300 06/17/20 1407 Events Date Time Event Comment 06/17/2020 1249 1300 AN Verify 1300 Start 1300 An Start Data 1311 An Induction 1315 An Intubation 1319 Anesthesia Ready 1357 Extubation/LMA Out 1357 an stop data 1357 Recovery or ICU Handoff Margaret ent care was transferred to the destination unit staff after review of the patient's medical history, current anesthetic/surgical status and plan, according to the Provider Handoff Checklist. 1407 Stop Meds Name Total IV Lidocaine 160 mg Propofol 200 mg Succinylcholine 120 mg Ondansetron 8 mg Lactated Ringers 0 mL * Agents Name O2 Air N2O Sevoflurane (et) * Blood No blood administrations on file. Lines, Drains, and Airways Type Details Placement Removal (RETIRED) Peripheral IV Line - Single Lumen 06/17/20; 1236; median cubital vein (antecubital fossa), right; 18 gauge; 12/04/20 (LDA Cleanup utility RA#[id number]); 1650 (LDA Cleanup utility RA#[id number]) 06/17/20 1236 by Sophia Diallo RN 12/04/20 1650 by Wilmer Younger ETT Mask Ventilation: Ea sy (1); ETT Type: Cuffed; ETT Size: 7 mm; Mac Blade: 3; Notes: Asleep, Pre-O2, Stylette; Attempts: 1; Laryngoscopy Grade: 1; ETT Placement Verified By: Auscultation, Capnometry, Visual; Secured at Teeth: 21 cm; Inserted by: charli gibson; Removal Date: 06/17/20; Removal Time: 1357 06/17/20 1320 by Victorina Fox CRNA 06/17/20 1357 by Victorina Fox CRNA documented in this encounter Social History Tobacco [...] OR Notes * Anesthesia Postprocedure Evaluation - Chu Brewer DO - 06/17/2020 3:30 PM EDT Department of Anesthesiology Post-procedure Note Patient: Tiny Cline Procedure Summary Date: 06/17/20 Room / Location: [facility] ENDO 3 / [facility] ENDOSCOPY Anesthesia Start: 1300 Anesthesia Stop: 1407 Procedures: ERCP (N/A Trunk) ERCP W/SPHINCTEROTOMY/PAPILLOTOMY ERCP W/REMOVAL CALCULI/DEBRIS FROM BILARY/PANCREATIC DUCT(S) CHOLEDOCHOSCOPY, REMOVAL OF CALCULUS\CALCULI (WRVU 9.05) (N/A ) LITHOTRIPSY-HARDEEP (WRVU 9.77) (Bilateral Flank) Diagnosis: (CBD Stones) (back and forth) Surgeons: William Lorenzo MD Responsible Provider: Chu Brewer DO Anesthesia Type: general ASA Status: 2 All Anesthesia Providers: Anesthesiologist: Chu Brewer DO PENCIL SORTER: Victorina Fox CRNA Vitals Value Taken Time BP 133/77 06/17/20 1420 Temp Pulse Resp 16 06/17/20 1420 SpO2 98 % 06/17/20 1428 Pain Level 0 06/17/20 1420 Vitals shown include unvalidated device data. Patient Location: PACU/[facility] Level of Consciousness: Awake and Alert Pain Management: Satisfactory Analgesia PONV: None Cardiovascular Status: At Baseline and Hemodynamically Stable Respiratory Status: At Baseline and Room Air Postoperative Fluid Status: Intravascular EUvolemia Possible Anesthetic Complications: NONE apparent at time of evaluation Final Primary Anesthesia Type: General (The anesthetic type performed was the same as planned.) Comments: Chu Brewer DO * Anesthesia Preprocedure Evaluation - Chu Brewer DO - 06/17/2020 12:45 PM EDT Pre-Anesthesia Evaluation for: Tiny Cline a 24 y.o. female. Procedure(s): ERCP There are no problems to display for this patient. No past medical history on file. No past surgical history on file. Social History Tobacco Use ??? Smoking status: Former Smoker ??? Smokeless tobacco: Never Used Substance Use Topics ??? Alcohol use: Not Currently Social History Substance and Sexual Activity Drug Use Not Currently No Known Allergies Medications: MAR and/or home medications have been reviewed. Physical Exam: Preprocedure Vitals Current as of 06/17/20 1245 BP: 143/97 Pulse: 69 Resp: SpO2: 98 Temp: 36.8 ??C (98.2 ??F) Height: 154.9 cm (5' 1) (06/17/20) Weight: 120 kg (264 lb 8.8 oz) (06/17/20) BMI: 49.98 IBW: 47.8 kg (105 lb 4.8 oz) Last edited 06/17/20 1225 by JANAE Airway Assessment: Mallampati: III Cardiovascular Assessment: system normal Pulmonary Assessment: pulmonary exam normal Dental Assessment: Misc Assessment: Patient is wearing No contact(s). IV access: Peripheral line Last Filed Perioperative Cognitive Screening None Anesthesia Plan: ASA 2 general, with a(n) intravenous induction 24 yo female s/p cholecystectomy now w/ epigastric pain s/f ERCP for ? Retained stone? No issue w/ anesthesia for cholecystectomy. Asthma rescue inhaler only, no cardiac disease Appropriately NPO Plan for GA w/ ETT Region - Other Informed Consent: Anesthetic plan and risks discussed with patient. PAT Clinic Note documented in this encounter Plan of Treatment Not on file documented as of this encounter Visit Diagnoses Not on filedocumented in this encounter Administered Medications Inactive Administered Medications - up to 3 most recent administrations Medication Order MAR Action Action Date Dose Rate Site lactated ringers infusion Intravenous, CONTINUOUS PRN, Starting on Wed06/17/20 at 1300, Until Wed06/17/20 at 1407, Anesthesia Intra-op New Bag 06/17/2020 1:00 PM EDT lidocaine (pf) (Xylocaine) (20 mg/mL) 2% injection syringe Intravenous, PRN, Starting on Wed06/17/20 at 1311, Until Wed06/17/20 at 1407, Anesthesia Intra-op, Routine Given 06/17/2020 1:15 PM EDT 100 mg Given 06/17/2020 1:11 PM EDT 60 mg ondansetron (pf) (Zofran) (2 mg/mL) injection Intravenous, PRN, Starting on Wed06/17/20 at 1354, Until Wed06/17/20 at 1407, Anesthesia Intra-op, Routine Given 06/17/2020 1:54 PM EDT 8 mg propofoL (Diprivan) 10 mg/mL bolus injection (Anesthesia) Intravenous, PRN, Starting on Wed06/17/20 at 1311, Until Wed06/17/20 at 1407, Anesthesia Intra-op Given 06/17/2020 1:11 PM EDT 200 mg succinylcholine (Anectine;Quelicin) (20 mg/mL) injection Intravenous, PRN, Starting on Wed06/17/20 at 1311, Until Wed06/17/20 at 1407, Anesthesia Intra-op, Routine Given 06/17/2020 1:11 PM EDT 120 mg documented in this encounter Care Teams It Business Analyst Relationship Specialty Start Date End Date Marva Hitchcock MD [address] [place] [phone] PCP - General Family Medicine 06/17/20 documented as of this encounter
--- OUTSIDE RECORDS SUMMARY | 2023-12-04 20:13 | XMS_ITS | Encounter Summary ---
Author Organization [facility] Address [address] [place] [address] Care Team Providers Care Poultry Hatchery Laborer Name Role Phone Ayla Solomon DO Primary Care Provider Encounter Details Date Type Department Care Team (Late st Contact Info) Description 12/14/2022 Lab Requisition [facility] Pathology & Laboratory Medicine - [facility] [address] [place] [address] Outr Resulting Lab, Provider Social History Tobacco [...] in the Last Year Never true 11/07/2019 [place] Depression Scale Answer Date Recorded [place] Depression Scale Total 21 09/17/2021 The thought [...] RNA BY PCR Routine 12/14/2022 12:15 EDT HEPATITIS B SURFACE ANTIGEN Routine 12/14/2022 12:15 EDT documented in this encounter Results * HEPATITIS B SURFACE ANTIGEN (12/14/2022 12:15 EDT) Hep B Surface Ag Negative Negative 12/15/2022 9:04 EDT [facility] Blood VENOUS BLOOD / Unknown 12/14/2022 12:15 EDT 12/14/2022 21:41 EDT Provider Outr Resulting Lab CHEMISTRY & BLOOD GAS ORDERABLES [facility] [address] [place] [address] * HEPATITIS C AB W REFLEX TO HCV RNA BY PCR (12/14/2022 12:15 EDT) Hep C Antibody Negative Negative 12/15/2022 10:40 EDT [facility] Blood VENOUS BLOOD / Unknown 12/14/2022 12:15 EDT 12/14/2022 21:41 EDT Provider Outr Resulting Lab CHEMISTRY & BLOOD GAS ORDERABLES [facility] [address] [place] [address] documented in this encounter Visit Diagnoses Not on filedocumented in this encounter Care Teams Poultry Hatchery Laborer Relationship Specialty Start Date End Date Ayla Solomon DO [facility] [facility] [address] [place] [address] PCP - General General Surgery 04/12/21 documented as of this encounter
--- OUTSIDE RECORDS SUMMARY | 2023-12-04 20:13 | XMS_ITS | Encounter Summary ---
Author Organization [facility] Address [facility] [place] [address] Care Team Providers Care Court Recorder Name Role Phone Marva Hitchcock MD Primary Care Provider Encounter Details Date Type Department Care Team (Latest Contact Info) Description 05/15/2023 Travel Social History Tobacco Use Types Packs/Day Years [...] on filedocumented in this encounter Care Teams Court Recorder Relationship Specialty Start Date End Date Marva Hitchcock MD [address] [place] [phone] PCP - General Family Medicine 06/17/20 documented as of this encounter
--- OUTSIDE RECORDS SUMMARY | 2023-12-04 20:13 | XMS_ITS | Encounter Summary ---
Author Organization [facility] Address [facility] [place] [address] Care Team Providers Care Cut Roll Machine Operator Name Role Phone Marva Hitchcock MD Primary Care Provider Encounter Details Date Type Department Care Team (Late st Contact Info) Description 05/18/2023 11:59 PM EDT Anesthesia [place] [address] Quentin Barrios MD [facility] [place] [address] Leila Bender MD [facility] [place] [address] Anesthesia Record Procedure Summary Procedure Name Responsible Anesthesiologist Anesthesia Start Time Anesthesia Stop Time AMB REFERRAL TO ANETHESIA PRE-OPERATIVE EVALUATION Events No events on file. Meds * [...] OR Notes * Anesthesia Preprocedure Evaluation - Leila Bender MD - 05/18/2023 7:31 AM EDT Pre-Anesthesia Evaluation for: Tiny Cline a 27 y.o. female. Patient Active Problem List Diagnosis Date Noted Maternal morbid obesity in third trimester, antepartum 05/06/2023 Past Medical History: Diagnosis Date Asthma triggers; cold temp, URI, exercise Genital HSV Graves disease teenager. Treated with thyroidectomy Obesity Past Surgical History: Procedure Laterality Date CHOLECYSTECTOMY 2019 at [facility] PRO BILIARY ENDOSCOPY, PERCUT, W/REM, STONE(S) N/A 06/17/2020 CHOLEDOCHOSCOPY, REMOVAL OF CALCULUS\CALCULI (WRVU 9.05) performed by William Lorenzo MD at [facility] ENDOSCOPY PRO ERCP, SPHINCTEROTOMY 06/17/2020 ERCP W/SPHINCTEROTOMY/PAPILLOTOMY performed by William Lorenzo MD at [facility] ENDOSCOPY PRO ERCP, W/REMOVAL STONE, HARDEEP/PANCR DUCTS 06/17/2020 ERCP W/REMOVAL CALCULI/DEBRIS FROM BILARY/PANCREATIC DUCT(S) performed by William Lorenzo MD at [facility] ENDOSCOPY PRO ERCP,DIAGNOSTIC N/A 06/17/2020 ERCP performed by William Lorenzo MD at [facility] ENDOSCOPY PRO FRAGMENT KIDNEY STONE/ ESWL Bilateral 06/17/2020 LITHOTRIPSY-HARDEEP (WRVU 9.77) performed by William Lorenzo MD at [facility] ENDOSCOPY Social History Tobacco Use Smoking status: Former Smokeless tobacco: Never Substance Use Topics Alcohol use: Not Currently Social History Substance and Sexual Activity Drug Use Not Currently Allergies Allergen Reactions Loracarbef Nausea And Vomiting Yeast, Dried Nausea And Vomiting If consumes large amounts will develop N/V Medications: MAR and/or home medications have been reviewed. Physical Exam: Preprocedure Vitals Current as of 05/18/23 0731 No BP, pulse, respiration, SpO2, or temperature recorded. Height: Weight: BMI: IBW: Anesthesia Physical Exam Last Filed Perioperative Cognitive Screening None Anesthesia Plan Anesthesia Screening Note: Date and Time of Entry: 05/18/2023 7:32 AM Entered By: Leila Bender MD Reason for Evaluation: Surgeon Request Hx of Anesthesia Problem: Elevated BMI Screening Visit Type: Interviewed in person Findings, Assessment and Plan: 27 y.o. female with BMI 47.7 scheduled for IOL, referred to [facility] for OB anesthesia evaluation PMH: Asthma, Graves disease s/p thyroidectomy, BMI >47, gHTN with second , GDMA2 with insulin Anesthetic/Airway Hx: - ERCP in 2020, GA with ETT size 7, Mac blade 3, no complications. Proven airway. - CSE 2021 with spinal needle (27 G, 8.5 in), Tuohy epidural needle (17 G, 7 in, needle insertion depth: 10 cm) at [facility]. Patient reports that it was a failed epidural that did not provide analgesia, her provider did not troubleshoot or replace the epidural, felt like a natural . Previously had success with an epidural for her first delivery, we do not have records for that encounter. Cardiopulmonary Test Results: none Meds of note: Albuterol, insulin, pantoprazole Allergies reviewed Labs reviewed, last taken in March ASSESSMENT: Tiny presents for elevated BMI and comorbidities including GDMA2 (with insulin use, relatively well controlled), asthma (infrequent albuterol inhaler use, associated with exercise and cold weather), and gHTN in a prior . Given her elevated BMI, we discussed the benefits of an early epidural including increased time for troubleshooting which she is agreeable to. Plan is currently for an IOL with epidural placement. Case discussed with Dr. Barrios. Leila Bender MD 05/18/2023 Perioperative Care Clinic phone extension: [phone] Associated attestation - Quentin Barrios MD - 05/18/2023 4:03 PM EDT I have discussed the case with the resident, reviewed the pertinent details in the chart, interviewed and examined the patient. I agree with the documented history, exam findings and management plan. Quentin Barrios MD documented in this encounter Plan of Treatment Not on file documented as of this encounter Visit Diagnoses Not on filedocumented in this encounter Care Teams Cut Roll Machine Operator Relationship Specialty Start Date End Date Marva Hitchcock MD [address] [place] [phone] PCP - General Family Medicine 06/17/20 documented as of this encounter
--- OUTSIDE RECORDS SUMMARY | 2023-12-04 20:13 | XMS_ITS | Encounter Summary ---
Author Organization [facility] [place] [address] Care Team Providers Care Fuel Tank Sealer And Tester Name Role Phone Marva Hitchcock MD Primary Care Provider [phone] Reason for Referral * Diagnostic Test (Routine) - Closed Specialty Diagnoses / Procedures Referred By Contac t Referred To Contact Radiology Diagnoses Thyroid dysfunction in , unspecified trimester Obesity in Procedures US OB Detailed Morphology Marcell Hood CNM [address] [place] [address] [address] [place] [address] [facility] [place] [address] Referral ID Status Reason Start Date Expiration Date V isits Requested Visits Authorized [id number] Closed Specialty Service Requested 01/29/2021 07/30/2022 1 1 Reason for Visit * Diagnostic Test (Routine) - Closed Specialty Diagnoses / Procedures Referred By Contac t Referred To Contact Radiology Diagnoses Thyroid dysfunction in , unspecified trimester Obesity in Procedures US OB Detailed Morphology Marcell Hood CNM [address] [place] [address] [address] [place] [address] [facility] [place] [address] Referral ID Status Reason Start Date Expiration Date V isits Requested Visits Authorized [id number] Closed Specialty Service Requested 01/29/2021 07/30/2022 1 1 Encounter Details Date Type Department Care Team (Latest Contact Info) Description 03/26/2021 10:32 AM EST - 03/26/2021 11:59 PM EST Hospital [place] [address] Marcell Hood, [facility] [employer] [facility] [employer] [address] [place] [address] Thyroid dysfunction in , unspecified trimester; Obesity in Discharge Disposition: Home Social History Tobacco Use [...] Sig Dispensed Refills Start Date End Date albuteroL 90 mcg/actuation HFA Aerosol Inhaler Inhale [...] mouth daily. documented as of this encounter Plan of Treatment Not on file documented as of this encounter Procedures Procedure Name Priority Date/Time Associated Diagnosis Comments US OB DETAILED MORPHOLOGY Routine 03/26/2021 11:11 AM EST Thyroid dysfunction in , unspecified trimester Obesity in documented in this encounter Results * US OB Detailed Morphology (03/26/2021 11:11 AM EST) Anatomical Region Laterality Modality Pelvis, Abdomen Ultrasound 03/26/2021 11:0 9 AM EST Impressions 03/26/2021 11:19 AM EST 2nd Trimester - Detailed Morphology - Summary Single intrauterine with a gestational age of 20w 0d based on Early Ultrasound ??(12/19/20) Composite age based on the current ultrasound alone is 19w 6d. Current growth parameters are consistent with prior dating indicating normal growth. Amniotic fluid volume is Normal Detailed anatomic evaluation was performed and no structural abnormalities are noted. Thank you for letting us participate in the care of this patient. If you are a health care provider and have any questions regarding this report, please contact the number above. For patients who have questions, please contact the health attending ambulatory care that requested your imaging first. ? Jenaro Lea, Staff Physician Electronically Signed Final Report ?? 03/26/2021 11:18 am Narrative 03/26/2021 11:19 AM EST OBSTETRICS REPORT ?(Signed Final 03/26/2021 11:18 am) PATIENT INFO: ID #: ? [id number] ?: ??[birth year] (25 yrs)(F) Name: ? TINY Nichole MILO ? Visit Date: 03/26/2021 11:09 am PERFORMED BY: Performed By: ? Sosa Borden RDMS Attending: ?Jenaro Lea MD Referred By: ?MARCELL HOOD Location: ? [place] SERVICE(S) PROVIDED: [facility] - Detailed Morphology - [id number] ? [id number] INDICATIONS: 20 weeks gestation of ?Z3A.20 thyroid ablation, history of Graves dx in , elevated BMI 50 VITAL SIGNS: Weight (lb): 277.0 Height: ?5'2 ? BMI: ? 50.66 EVALUATION: Num Of Fetuses: ? 1 Heart Rate(bpm): ??145 Cardiac Activity: ? Observed, normal rhythm Presentation: ? Breech Placenta: ? Posterior P. Cord Insertion: ?Within Normal Limits Amniotic Fluid CHRISTI FV: ?Normal --------- BIOMETRY: --------- BPD: ?44.6 ??mm ? G.Age: ?? 19w 3d OFD: ?60.6 ??mm HC: ?169.1 ??mm ? G.Age: ?? 19w 4d AC: ?142.0 ??mm ? G.Age: ?? 19w 4d FL: ? 33.6 ??mm ? G.Age: ?? 20w 4d HUM: ?31.6 ??mm ? G.Age: ?? 20w 4d CER: ?20.6 ??mm ? G.Age: ?? 19w 4d NFT: ?4.82 ??mm NB: ?7.1 ??mm LV: ?7.1 ??mm CM: ?4.3 ??mm CI: ?73.6 ??% ? 70 - 86 FL/HC: ? 19.9 ??% ? 16.8 - 19.8 HC/AC: ? 1.19 ?1.09 - 1.39 FL/BPD: ?75.3 ??% FL/AC: ? 23.7 ??% ? 20 - 24 Est. FW: ? 323 ??gm ?0 lb 11 oz OB HISTORY: Blood Type: ?? O+ : ?2 ? Term: ?? 1 Living: ? 1 GESTATIONAL AGE: LMP: ? 21w 6d ?Date: ??10/24/20 ? GEOVANI: ?? 07/31/21 U/S Today: ? 19w 6d ?GEOVANI: ?? 08/14/21 Best: ?20w 0d ?? Det. By: ??Early ?GEOVANI: ?? 08/13/21 ? Ultrasound ? (12/19/20) TARGETED ANATOMY: Central Nervous System Calvarium/Cranial V.: ??Within Normal Limits Intracranial Jena: ? Within Normal Limits Cavum: ? Within Normal Limits Parenchyma: ?Within Normal Limits Lateral Ventricles: ?Within Normal Limits Choroid Plexus: ?Within Normal Limits Cereb./Vermis: ? Within Normal Limits Cisterna Magna: ?Within Normal Limits Midline Falx: ?Within Normal Limits Spine Cervical: ?Visualized Thoracic: ?Visualized Lumbar: ?Visualized Sacral: ?Visualized Shape/Curvature: ? Visualized Head/Neck Face: ?Within Normal Limits Lips: ?Within Normal Limits Neck: ?Within Normal Limits Nuchal Fold: ? Within Normal Limits Nasal Bone: ?Present Profile: ? Visualized Orbits/Eyes: ? Visualized Mandible: ?Visualized Maxilla: ? Visualized Thorax Thoracic Contour: ?Within Normal Limits Lungs: ? Visualized 4 Chamber View: ?Within Normal Limits Cardiac Activity: ?Normal Rhythm Rt Outflow Tract: ?Visualized Lt Outflow Tract: ?Visualized Aortic Arch: ? Visualized Ductal Arch: ? Visualized SVC: ? Visualized Cardiac Underwood: ?Visualized Diaphragm: ? Visualized 3 Vessel View: ? Visualized IVC: ? Visualized Abdomen Ventral Wall: ?Visualized Cord Insertion: ?Visualized Situs: ? Normal Stomach: ? Visualized Liver: ? Visualized Lt Kidney: ? Visualized Rt Kidney: ? Visualized Bladder: ? Visualized Bowel: ? Visualized Extremities Lt Humerus: ?Within Nomal Limits Rt Humerus: ?Within Normal Limits Lt Forearm: ?Within Normal Limits Rt Forearm: ?Within Normal Limits Lt Hand: ? Within Normal Limits Rt Hand: ? Within Normal Limits Lt Femur: ?Within Normal Limits Rt Femur: ?Within Normal Limits Lt Lower Leg: ?Within Normal Limits Rt Lower Leg: ?Within Normal Limits Lt Foot: ? Visualized Rt Foot: ? Visualized Other Umbilical Cord: ?3 vessel cord Genitalia: ? Female CERVIX UTERUS ADNEXA: Right Ovary Size(cm) ? 2.7 ??x ?? 2.7 ?x ??2.3 ? Vol(ml): 8.8 Visualized Left Ovary Size(cm) ? 3.1 ??x ?? 2.8 ?x ??2.5 ? Vol(ml): 11.4 Visualized Procedure Note Lucia Lea MD - 03/26/2021 OBSTETRICS REPORT (Signed Final 03/26/2021 11:18 am) PATIENT INFO: ID #: [id number] : [birth year] (25 yrs)(F) Name: TINY PEDRAZA Visit Date: 03/26/2021 11:09 am PERFORMED BY: Performed By: Sosa Borden RDMS Attending: Jenaro Lea MD Referred By: MARCELL HOOD Location: [place] SERVICE(S) PROVIDED: [facility] - Detailed Morphology - [id number] INDICATIONS: 20 weeks gestation of Z3A.20 thyroid ablation, history of Graves dx in , elevated BMI 50 VITAL SIGNS: Weight (lb): 277.0 Height: 5'2 BMI: 50.66 EVALUATION: Num Of Fetuses: 1 Heart Rate(bpm): 145 Cardiac Activity: Observed, normal rhythm Presentation: Breech Placenta: Posterior P. Cord Insertion: Within Normal Limits Amniotic Fluid CHRISTI FV: Normal --------- BIOMETRY: --------- BPD: 44.6 mm G.Age: 19w 3d OFD: 60.6 mm HC: 169.1 mm G.Age: 19w 4d AC: 142.0 mm G.Age: 19w 4d FL: 33.6 mm G.Age: 20w 4d HUM: 31.6 mm G.Age: 20w 4d CER: 20.6 mm G.Age: 19w 4d NFT: 4.82 mm NB: 7.1 mm LV: 7.1 mm CM: 4.3 mm CI: 73.6 % 70 - 86 FL/HC: 19.9 % 16.8 - 19.8 HC/AC: 1.19 1.09 - 1.39 FL/BPD: 75.3 % FL/AC: 23.7 % 20 - 24 Est. FW: 323 gm 0 lb 11 oz OB HISTORY: Blood Type: O+ : 2 Term: 1 [place] GESTATIONAL AGE: LMP: 21w 6d Date: 10/24/20 GEOVANI: 07/31/21 U/S Today: 19w 6d GEOVANI: 08/14/21 Best: 20w 0d Det. By: Early GEOVANI: 08/13/21 Ultrasound (12/19/20) TARGETED ANATOMY: Central Nervous System Calvarium/Cranial V.: Within Normal Limits Intracranial Jena: Within Normal Limits Cavum: Within Normal Limits Parenchyma: Within Normal Limits Lateral Ventricles: Within Normal Limits Choroid Plexus: Within Normal Limits Cereb./Vermis: Within Normal Limits Cisterna Magna: Within Normal Limits Midline Falx: Within Normal Limits Spine Cervical: Visualized Thoracic: Visualized Lumbar: Visualized Sacral: Visualized Shape/Curvature: Visualized Head/Neck Face: Within Normal Limits Lips: Within Normal Limits Neck: Within Normal Limits Nuchal Fold: Within Normal Limits Nasal Bone: Present Profile: Visualized Orbits/Eyes: Visualized Mandible: Visualized Maxilla: Visualized Thorax Thoracic Contour: Within Normal Limits Lungs: Visualized 4 Chamber View: Within Normal Limits Cardiac Activity: Normal Rhythm Rt Outflow Tract: Visualized Lt Outflow Tract: Visualized Aortic Arch: Visualized Ductal Arch: Visualized SVC: Visualized Cardiac Underwood: Visualized Diaphragm: Visualized 3 Vessel View: Visualized IVC: Visualized Abdomen Ventral Wall: Visualized Cord Insertion: Visualized Situs: Normal Stomach: Visualized Liver: Visualized Lt Kidney: Visualized Rt Kidney: Visualized Bladder: Visualized Bowel: Visualized Extremities Lt Humerus: Within Nomal Limits Rt Humerus: Within Normal Limits Lt Forearm: Within Normal Limits Rt Forearm: Within Normal Limits Lt Hand: Within Normal Limits Rt Hand: Within Normal Limits Lt Femur: Within Normal Limits Rt Femur: Within Normal Limits Lt Lower Leg: Within Normal Limits Rt Lower Leg: Within Normal Limits Lt Foot: Visualized Rt Foot: Visualized Other Umbilical Cord: 3 vessel cord Genitalia: Female CERVIX UTERUS ADNEXA: Right Ovary Size(cm) 2.7 x 2.7 x 2.3 Vol(ml): 8.8 Visualized Left Ovary Size(cm) 3.1 x 2.8 x 2.5 Vol(ml): 11.4 Visualized IMPRESSION 2nd Trimester - Detailed Morphology - Summary Single intrauterine with a gestational age of 20w 0d based on Early Ultrasound (12/19/20) Composite age based on the current ultrasound alone is 19w 6d. Current growth parameters are consistent with prior dating indicating normal growth. Amniotic fluid volume is Normal Detailed anatomic evaluation was performed and no structural abnormalities are noted. Thank you for letting us participate in the care of this patient. If you are a health care provider and have any questions regarding this report, please contact the number above. For patients who have questions, please contact the health attending ambulatory care that requested your imaging first. Jenaro Lea, Staff Physician Electronically Signed Final Report 03/26/2021 11:18 am Marcell Hood CNM IMG US OB ORDERABLE S documented in this encounter Visit Diagnoses Diagnosis Thyroid dysfunction in , unspecified trimester Obesity in Obesity complicating , childbirth, or the puerperium, unspecified as to episode of care or not applicable documented in this encounter Care Teams Fuel Tank Sealer And Tester Relationship Specialty Start Date End Date Marva Hitchcock MD [address] [place] [id number] PCP - General Family Medicine 06/17/20 documented as of this encounter
--- OUTSIDE RECORDS SUMMARY | 2023-12-04 20:13 | XMS_ITS | Referral Summary ---
Author Organization [facility] Address [address] [place] [address] Care Team Providers Care First Aid Nurse Name Role Phone Ayla Solomon Primary Care Provider [phone] Allergies Active Allergy Reactions Criticality Noted Date [...] original. Patient has given permission for the [facility] to verbally discuss the following information with [...] (daughter's bday) [] Breast Feeding Class [] Supervisor [employer]umc[employer] PP: [] EPDS [] Contraception [] Pap [...] 03/05/2010 Vitamin D deficiency 03/05/2010 Autoimmune disorder ([facility]) Overview: Grave's disease Resolved Problems Problem Noted Date Diagnosed Date Resolved Date Supervision of normal first , antepartum 01/08/2017 09/20/2017 BMI 37.0-37.9, adult 01/08/2017 018 Spontaneous 12/11/2016 017 Tobacco dependence 10/30/2014 8 Graves' disease 09/05/2012 08/31/2013 Surveillance of previously p rescribed implantable subdermal contraceptive 01/01/201107/2013 Overview: implanon Autoimmune thyroiditis 03/05/201008/31 Overview: Presented with high FT4 and suppressed TSH 12/06 while on [place]. 123 Iodine uptake low (1.5%, nl.10-30%) 12/06; had negative TSH rAb, TSI, anti TPO, positive anti TG Ab. Thyroid gland was diffusely enlarged. Mild symptoms of hyperthyroidism, no beta blockers started. [place] discontinued. TFTs monitored, fluctuating results. On repeated testing (10/2009) TSHr and TSI positive, hyperthyroid clinically and biochemically (FT4 2.2). Started on methimazole 03/2010. Suboptimal compliance. Irregular periods/menstrual cycles 03/05/2010 11/04/2011 Overview: Menarche at 9, periods always irregular; started on Depo 2 yrs postmenarche by retail service specialist, later on switched to OCPs. Immunizations Name Administration Dates Next Due Historical HPV Vaccine, Unspecified 09/29/2017 Influenza Vaccine =>3yo Spli t Preservative Free IM 01/27/2013 Influenza Vaccine Quad (AFLU JEWELL) PF 0.5 ml IM (3 yrs+) 12/31/2017,01/08/2017,03/13/2015 Pneumococcal Polysaccharide (PPSV23) Vaccine (PNEUMOVAX-23) =>2YO SQ/IM 12/31/2017 Tdap Vaccine =>7YO IM 05/23/2021,05/13/2017,03/01 Social History Tobacco Use Types Packs/Day Years [...] in the Last Year Never true 11/07/2019 [place] Depression Scale Answer Date Recorded [place] Depression Scale Total 21 09/17/2021 The thought of harming myself has occurred to me . Sometimes 09/17/2021 Interpersonal Safety Answer Date Record ed Physically Hurt Never 08/04/2020 Verbally Threaten Not on file 08/04/2020 Sex and Gender Information Value Date Recorded Sex Assigned at Not on file Gender Identity Female 03/02/2019 11:17 EST Sexual Orientation Not on file Last Filed [...] Body Mass Index 51.1 08/07/2021 0500 EDT Functional Status Functional Status Response Date of [...] (5 years old or older) No 08/06/2021 Plan of Treatment Not on file Goals Goal Patient Goal Type Associated Problems [...] 12/15/2022 10:40 EDT [facility] Blood VENOUS BLOOD / Unknown 12/14/2022 12:15 EDT 12/14/2022 21:41 EDT Provider Outr Resulting Lab CHEMISTRY & BLOOD GAS ORDERABLES [facility] [address] [place] [address] * HIV 1/2 ANTIGEN AND ANTIBODY, 4TH GENERATION (12/14/2022 12:15 EDT) HIV 1 and 2 Antibody/p24 Antigen, 4th Generation Negative Negative 12/15/2022 10:30 EDT [facility] Comment:If acute HIV-1 infec tion is suspected in a high risk patient, submit plasma specimen for HIV-1 RNA quantitation test. Blood VENOUS BLOOD / Unknown 12/14/2022 12:15 EDT 12/14/2022 21:41 EDT Narrative [facility] - 12/15/2022 10:30 EDT Fourth Generation assay performed on the Siemens Centaur XPT. Provider Outr Resulting Lab IMMUNOLOGY A ND SEROLOGY ORDERABLES Performing Organization Address [facility] de Phone Number [facility] [address] [place] [address] * (ABNORMAL) PROTEIN/CREATININE RATIO, URINE (08/06/2021 12:00 EDT) Total Protein, Urine 25 See Note mg/dL 08/06/2021 12:54 EDT [facility] Comment:Reference range not established. Creatinine, Urine 48.1 See Note mg/dL 08/06/2021 12:54 EDT [facility] Comment:Reference range not established. UPRO mg/mg Cr, Ur 0.52(H) <0.18 mg/mg Creatinine 08/06/2021 12:54 EDT [facility] Urine URINE SPECIMEN COLLECTION, CLEAN CATCH / Unknown Urine Collect / Unknown 08/06/2021 12:00 EDT 08/06/2021 12:21 EDT Lucrecia Briggs MD URINALYSIS ORDERABLE S Performing Organization Address [facility]/ZIP Co de Phone Number [facility] [address] [place] [address] * PAP TEST (08/14/2020 13:45 EDT) Specimens A. Cervix and/or Endocervix , ThinPrep Imaging System with Manual Evaluation 08/26/2020 12:20 EDT [facility] Specimen Adequacy Satisfactory for Evaluation - transformation zone component present 08/26/2020 12:20 EDT [facility] General Categorization Negative for intraepithelial lesion or malignancy 08/26/2020 12:20 EDT [facility] Attestation . 08/26/2020 12:20 EDT [facility] at 1220 Clinical History See below 08/27/19 12:20 EDT [facility] Performing Lab [facility] 08/26/2020 12:20 EDT [facility] Scanned Images 08/26/2020 12:20 EDT [facility] Papanicolaou smear specimen (specimen) CERVIX UTERI STRUCTURE / Unknown 08/14/2020 13:45 EDT 08/16/2020 16:07 EDT Taylor Gutierrez NP PATHOLOGY ORDERABLES Performing Organization Address City/[facility] Co de Phone Number [facility] [address] [place] [address] * HEMOGLOBIN A1C (04/28/2011 14:00 EST) Hemoglobin [...] BLOOD GA S ORDERABLES Performing Organization Address City/[facility]/ZIP Co de Phone Number [facility] [address] [place] [address] * (ABNORMAL) LIPID PROFILE (INCLUDES CHOLESTEROL, TRIGLYCERIDES, HDL, LDL) (03/17/2010 14:22 EST) Cholesterol 132 mg/dl [facility] Comment:Desirable:<200 Borde rline High:200-239 High:>it=948 Triglycerides 217(H) 37 - 140 mg/dl [facility] HDL 43 mg/dl [facility] Comment:Low:<40 High(Desirab le):>or=60 LDL, Calculated 46 mg/dl [facility] Comment: Optimal:<100 Above optimal:100-129 Borderline High:130-159 High:160-189 Very High:>jf=555 Chol/HDL Ratio 3.1 [facility] Fasting? No [facility] Blood specimen (specimen) 03/17/2010 14:22 EST 03/17/2010 14:27 EST Paradise Reyes MD CHEMISTRY & BLOOD GA S ORDERABLES Performing Organization Address City/State/[facility] Co de Phone Number [facility] [address] [place] [address] from Last 3 Months or Most Recently Relevant to Health Maintenance Advance Directives For more information, please contact: [phone] Documents on File Type Date Recorded Patient Electrician Chief Expl anation Advance Directive 05/24/2018 16:21 Appointment [...] the discussion? Not Discusse d Care Teams First Aid Nurse Relationship Specialty Start Date End Date Ayla Solomon DO [facility] [place] [address] PCP - General General Surgery 04/12/21
--- OUTSIDE RECORDS SUMMARY | 2023-12-04 20:13 | XMS_ITS | Encounter Summary ---
Author Organization [facility] Address [address] [place] [address] Care Team Providers Care Dump Worker Name Role Phone Ayla Solomon DO Primary Care Provider Encounter Details Date Type Department Care Team (Late st Contact Info) Description 12/14/2022 Lab Requisition [facility] Pathology & Laboratory Medicine - [facility] [address] [place] [address] Outr Resulting Lab, Provider Social History Tobacco [...] in the Last Year Never true 11/07/2019 Oxford Depression Scale Answer Date Recorded Oxford Depression Scale Total 21 09/17/2021 The thought [...] Procedure Name Priority Date/Time Associated Diagnosis Comments HIV 1/2 ANTIGEN AND ANTIBODY, 4TH GENERATION Routine 12/14/2022 12:15 EDT documented in this encounter Results * HIV 1/2 ANTIGEN AND ANTIBODY, 4TH GENERATION (12/14/2022 12:15 EDT) Pathologist [facility] HIV 1 and 2 Antibody/p24 Antigen, 4th Generation Negative Negative 12/15/2022 10:30 EDT [facility] Comment:If acute HIV-1 infec tion is suspected in a high risk patient, submit plasma specimen for HIV-1 RNA quantitation test. Blood VENOUS BLOOD / Unknown 12/14/2022 12:15 EDT 12/14/2022 21:41 EDT Narrative [facility] - 12/15/2022 10:30 EDT Fourth Generation assay performed on the Siemens Geckoboardaur XPT. Provider Outr Resulting Lab IMMUNOLOGY A ND SEROLOGY ORDERABLES [facility] [address] [place] [address] documented in this encounter Visit Diagnoses Not on filedocumented in this encounter Care Teams Dump Worker Relationship Specialty Start Date End Date Ayla Solomon DO [address] [place] [address] PCP - General General Surgery 04/12/21 documented as of this encounter
--- OUTSIDE RECORDS SUMMARY | 2023-12-04 20:13 | XMS_ITS | Encounter Summary ---
Author Organization [facility] Address [address] [place] [address] Care Team Providers Care Aeronautical Products Sales Engineer Name Role Phone Juanito Ayla Keagan LACY Primary Care Provider [phone] Reason for Visit * Reason Comments Hypothyroidism Encounter Details Date Type Department Care Team (Latest Contact Info) Description 01/06/2023 10:[address] [facility] Endocrinology - [facility] [address] [place] [address] Carlos Nuñez DO [address] [facility] [address] [place] [address] Hypothyroidism, postablative (Primary Dx); Status post radioactive iodine thyroid ablation Social History Tobacco Use Types Packs/Day Years [...] in the Last Year Never true 11/07/2019 [place] Depression Scale Answer Date Recorded [place] Depression Scale Total 21 09/17/2021 The thought [...] No 08/06/2021 documented as of this encounter Ordered Prescriptions Prescription Sig Dispensed Refills Start Date End Da te levothyroxine (SYNTHROID) 50 mcg tablet Take 1 Tablet by mouth daily. 90 Tablet 3 01/06/2023 levothyroxine (SYNTHROID) 200 mcg tablet Take 1 Tablet by mouth daily. 90 Tablet 3 01/06/2023 documented in this encounter Progress Notes * Carlos Nuñez, DO - 01/06/2023 1020 EST TELEMEDICINE CONSENT The concept of ???Telemedicine?? has been described to the patient.? Patient has been informed of the anticipated benefits and possible risks.? Patient understands the information provided regardingtelemedicine, has had the opportunity to ask questions about this information, and all questions have been answered to patient???s satisfaction. Patient consents for the use of telemedicine in his/her medical care and authorizes the transmission of any relevant medical information to providers and their staff involved in patient???s medical or mental health care. TELEMEDICINE VIDEO VISIT Today's visit was provided through telemedicine video conferencing: I have reviewed the appropriateness of using video technology with the patient with regards to today's visit. 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 Patient is currently 15 weeks and is on 275 mcg of levothyroxine daily.Patient's prepregnancy dose is somewhere between 2000 and 225 mcg daily. She takes this medication first thing in morning on an empty stomach. She does not take her thyroid medicine with her prenatalvitamin or any calcium. She reports that she feels super tired. She describes her mood is up-and-down. She reports no changes in her bowels. Denies symptoms of over- replacement such as palpitations, resting tremor. She is having some difficulty sleeping. PAST MEDICAL HISTORY: Reviewed as documented in electronic medical record. MEDICATIONS: Reviewed as documented in electronic medical record. ALLERGIES: Reviewed as documented in electronic medical record. OBJECTIVE: The patient's visit today was conducted via telemedicine. Therefore, patient was not examined. LABORATORY DATA: 1. Most recent thyroid function test obtained at [facility] in [place], [place] showed a TSH of 0.06 with a free T41.29 ASSESSMENT: Ms Tiny Cline is a pleasant 27-year-old female with post- ablative hypothyroidism secondary to treatment with 10 mCi of I-131 for hyperthyroidism secondary to Graves' disease on 10/05/2012. The patient transitioned to the hypothyroid state in 11/2012. Patient is currently 15 weeks and has subclinical hyperthyroidism. Reduce her current dose to 250 mcg of levothyroxine which includes a 200 mcg tablet and a 50 mcg tablet. Both of those medications were sent to her local pharmacy with 90-day supply with 3 refills. She will repeat thyroid function tests at [facility] in 4 weeks. She will follow-up with me in 12 months via telemedicine. We discussed transitioning back to her prepregnancy dose following delivery with repeat blood work 6 weeks after delivery. We can discuss these findings over phone so [facility] She voiced understanding. Patient instructed to call with questions or concerns or changes in symptoms. PLAN: 1. Call with questions or concerns 2. Decrease levothyroxine to 250 mcg daily (200 mcg tablet +50 mcg tablet) 3. Repeat blood work at [facility] in 4 weeks 4. Follow-up with me in 1 year 5. Return to prepregnancy dose after delivery with repeat labs in 6 weeks documented in this encounter Plan of Treatment Not on file documented as of this encounter Goals Goal Patient Goal Type Associated Problems Recent Progress Patient-Stated? Author Weight Loss General Obesity, Class III, BMI 40-49.9 (morbid obesity) No Marva Hitchcock Note: Increased activity getting out doors with daughter documented as of this encounter Visit Diagnoses Diagnosis Hypothyroidism, postablative- Primary Other postablative hypothyroidism Status post radioactive iodine thyroid ablation Other postprocedural status documented in this encounter Discontinued Medications Medication Sig Discontinue Reason Start Date End Da te levothyroxine (SYNTHROID) 75 mcg tabletIndications:Hypothy roidism, postablative,Status post radioactive iodine thyroid ablation Take 1 Tablet by mouth daily. 01/04/2023 01/06/2023 documented as of this encounter Care Teams Aeronautical Products Sales Engineer Relationship Specialty Start Date End Date Ayla Solomon DO [facility] [facility] [address] [place] [address] PCP - General General Surgery 04/12/21 documented as of this encounter
--- OUTSIDE RECORDS SUMMARY | 2023-12-04 20:13 | XMS_ITS | Encounter Summary ---
Author Organization [facility] Address [facility] [place] [address] Care Team Providers Care Stunt Double Name Role Phone Marva Hitchcock MD Primary Care Provider [phone] Encounter Details Date Type Department Care Team (Latest Contact Info) Description 06/03/2023 12:00 PM EDT TH Visit (TeleHealth) Obstetric[place] [address] Ariel Larsen MD [facility] [address] OBSTETRICS [place] [address] Maternal morbid obesity in third trimester, antepartum; Thyroid disease affecting Social History Tobacco Use Types Packs/Day Years [...] as of this encounter Progress Notes * Ariel Larsen MD - 06/03/2023 12:00 PM EDT telehealth 27 yo at 36w3d with elevated BMI, hypothyroidism (after thyroid ablation for Graves) and hx/o gHTN for MFM visit and delivery planning. Pt scheduled for IOL on 06/20. Doing well. Good activity. No bleeding or leaking fluid Pt reports negative GBS Reports normal Bps Reports good NSTs. Had anesthesia consult (pt had unsuccessful regional anesthesia in the past) Plans early epidural. Synthroid 250mcg/day Scheduled for thyroid testing next week. A/P: Doing well in . IOL instructions reviewed. BP phone number given. Will try to get GBS records. MD Leonor 10 minutes was spent preparing for, performing and documenting this follow up [facility] visit. documented in this encounter Plan of Treatment Not on file documented as of this encounter Visit Diagnoses Diagnosis Maternal morbid obesity in third trimester, antepartum Thyroid disease affecting documented in this encounter Care Teams Stunt Double Relationship Specialty Start Date End Date Marva Hitchcock MD [address] [place] [phone] PCP - General Family Medicine 06/17/20 documented as of this encounter
--- OUTSIDE RECORDS SUMMARY | 2023-12-04 20:13 | XMS_ITS | Encounter Summary ---
Author Organization [facility] Address [address] [place] [address] Care Team Providers Care Analyst Sales Name Role Phone Ayla Solomon DO Primary Care Provider [phone] Encounter Details Date Type Department Care Team (Late st Contact Info) Description 01/18/2023 Lab Requisition [facility] Pathology & Laboratory Medicine - [facility] [address] [place] [address] Outr Resulting Lab, Provider Social History Tobacco [...] in the Last Year Never true 11/07/2019 [place] Depression Scale Answer Date Recorded [place] Depression Scale Total 21 09/17/2021 The thought [...] Procedure Name Priority Date/Time Associated Diagnosis Comments CHLAMYDIA/N. GONORRHOEAE AMPLIFIED NUCLEIC ACID Routine 01/17/2023 18:35 EST documented in this encounter Results * CHLAMYDIA/N. GONORRHOEAE AMPLIFIED RNA (01/17/2023 18:35 EST) Neisseria gonorrhoeae Result Negative Negative 01/19/2023 13:37 EST [facility] Chlamydia trachomatis Result Negative Negative 01/19/2023 13:37 EST [facility] Swab VAGINAL STRUCTURE / Unknown 01/17/2023 18:35 EST 01/18/2023 16:45 EST Provider Outr Resulting Lab MICROBIOLOGY - GENERAL ORDERABLES [facility] [address] [place] [address] documented in this encounter Visit Diagnoses Not on filedocumented in this encounter Care Teams Analyst Sales Relationship Specialty Start Date End Date Ayla Solomon DO [facility] [facility] [address] [place] [address] PCP - General General Surgery 04/12/21 documented as of this encounter
--- OUTSIDE RECORDS SUMMARY | 2023-12-04 20:13 | XMS_ITS | Encounter Summary ---
Author Organization [facility] Address [facility] [place] [address] Care Team Providers Care Freelance Court Stenographer Name Role Phone Marva Hitchcock MD Primary Care Provider [phone] Encounter Details Date Type Department Care Team (Latest Contact Info) Description 04/29/2023 Travel Social History Tobacco Use Types Packs/Day [...] on filedocumented in this encounter Care Teams Freelance Court Stenographer Relationship Specialty Start Date End Date Marva Hitchcock MD [address] [place] [phone] PCP - General Family Medicine 06/17/20 documented as of this encounter
--- OUTSIDE RECORDS SUMMARY | 2023-12-04 20:13 | XMS_ITS | Encounter Summary ---
Author Organization [facility] Address [facility] [place] [address] Care Team Providers Care Flue Lining Dipper Name Role Phone Marva Hitchcock MD Primary Care Provider Encounter Details Date Type Department Care Team (Latest Contact Info) Description 05/18/2023 Travel Social History Tobacco Use Types Packs/Day [...] on filedocumented in this encounter Care Teams Flue Lining Dipper Relationship Specialty Start Date End Date Marva Hitchcock MD [address] [place] [phone] PCP - General Family Medicine 06/17/20 documented as of this encounter
--- OUTSIDE RECORDS SUMMARY | 2023-12-04 20:13 | XMS_ITS | Encounter Summary ---
Author Organization [facility] Address [facility] [place] [address] Care Team Providers Care Boiler House Mechanic Name Role Phone Marva Hitchcock MD Primary Care Provider Encounter Details Date Type Department Care Team (Latest Contact Info) Description 06/17/2020 12:17 PM EDT - 06/17/2020 2:36 PM EDT Hospital En[place] [address] William Lorenzo MD [facility] [place] [address] Discharge Disposition: Other Short Term [facility] Social History Tobacco Use Types Packs/Day Years [...] Sign Reading Time Taken Comments Blood Pressure 133/77 06/17/2020 2:20 PM EDT Pulse 69 06/17/2020 12:25 PM EDT Temperature 36.8 ??C (98.2 ??F) 06/17/2020 12:25 PM E DT Respiratory Rate 16 06/17/2020 2:20 PM EDT Oxygen Saturation 97% 06/17/2020 2:20 PM EDT Inhaled Oxygen Concentration - - Weight 120 kg (264 lb 8.8 oz) 06/17/2020 12:25 P M EDT Height 154.9 cm (5' 1) 06/17/2020 12:25 PM EDT Body Mass Index 49.99 06/17/2020 12:25 PM EDT documented in this encounter Discharge Instructions * Discharge Instructions* Sophia Diallo RN - 06/17/2020 2:06 PM EDT Endoscopic Retrograde Cholangiopancreatogram (ERCP): What to Expect at Home Your Recovery After you have an endoscopic retrograde cholangiopancreatogram (ERCP), you will be able to go home after your doctor or a nurse checks to make sure you are not having any problems. If you stay in thehospital overnight, you may go home the next day. You may have a sore throat for a day or two after the procedure. This care sheet gives you a general idea about how long it will take for you to recover. But each person recovers at a different pace. Follow the steps below to get better as quickly as possible. How can you care for yourself at home? Activity ??? Rest when you feel tired. ?? You can do your normal activities when it feels okay to do so. Diet ?? Follow your doctor's directions for eating. ?? Unless your doctor has told you not to, drink plenty of fluids. ?? Do not drink alcohol. Medicines ?? Your doctor will tell you if and when you can restart your medicines. He or she will also give you instructions about taking any new medicines. ?? If you take blood thinners, such as warfarin (Coumadin), clopidogrel (Plavix), or aspirin, be sure to talk to your doctor. He or she will tell you if and when to start taking those medicines again. Make sure that you understand exactly what your doctor wants you to do. ?? If a sphincterotomy was done during the test, your doctor may tell you not to take aspirin or other anti-inflammatory medicines for a few days. These include ibuprofen (Advil, Motrin) and naproxen(Aleve). ?? If you have a sore throat the day after the procedure, use an iexl-pwr-xjsvpag spray to numb your throat. Sucking on throat lozenges and gargling with warm salt water may also help relieve your symptoms. Other instructions ?? For your safety, do not drive or operate machinery until the medicine wears off and you can think clearly. Your doctor may tell you not to drive or operate machinery until the day after your test. ?? Do not sign legal documents or make major decisions until the medicine wears off and you can think clearly. The anesthesia can make it hard for you to fully understand what you are agreeing to. Additional Information for Sedation Patients For patients who received sedation: ?? You may have received medications before and/or during your procedure which effects your judgement and reaction time. ?? Do not drive, operate machinery, drink alcoholic beverages or make important decisions for 24 hours. ?? Be careful on stairs as you may be unsteady on your feet. ?? You may eat a regular diet as tolerated. ?? Do not smoke if you are alone. ?? IV site: Slight redness or tenderness is normal, you can use a warm compress if you would like. If tenderness and/or redness increase or if foul drainage occurs, please contact your Doctor. Please call [phone] before 8pm Mon-Fri with problems, questions or concerns. If you call after 8pm or on weekends, call the Hospital at [phone] and ask to speak to the Concrete Mixer Operator Helper alkylation operator and the extruder operator horizontal will contact that person for you. When should you call for help? Call [phone] anytime you think you may need emergency care. For example, call if: ?? You passed out (lost consciousness). ?? You pass maroon or bloody stools. ?? You have trouble breathing. Call your doctor now or seek immediate medical care if: ?? You have pain that does not get better after you take pain medicine. ?? You are sick to your stomach or cannot drink fluids. ?? You have new or worse belly pain. ?? You have blood in your stools. ?? You have a fever. ?? You cannot pass stools or gas. Watch closely for changes in your health, and be sure to contact your doctor if you have any problems, like Where can you learn more? [facility] View your After Visit Summary and more online at [email or web address] If you would like to provide feedback about your hospital experience, please call the Office of Patient and Family Relations at . If you have received this After Visit Summary in error, please immediately return it in person to the department, or notify the [facility] Privacy Office by calling toll free at between the hours of 8AM and 5PM to arrange for our retrieval of the documents at no cost to you. Content Version: 12.2 ?? 1165-8086 [employer]. Care instructions adapted under license by [facility]. If you have questions about a medical condition or this instruction, always ask your healthcare professional. [employer] disclaims any warranty or liability for your use of this information. documented in this encounter Medications at Time of Discharge Medication Sig Dispensed Refills Start Date End Date albuteroL 90 mcg/actuation HFA Aerosol Inhaler Inhale 2 puffs into the lungs Every 4 hours as needed. 09/13/2019 valACYclovir (Valtrex) 500 mg Tablet Take 500 mg by mouth daily. 03/15/2020 naproxen (NAPROSYN) 500 mg Tablet Take 500 mg by mouth. 11/09/2019 03/26/2021 documented as of this encounter H&P Notes * William Lorenzo MD - 06/17/2020 12:41 PM EDT Procedure: ERC Indication: choledocholithiasis History of Present Illness: Tiny Cline is a 24 y.o. woman post ccy with choledocholithiasis here for ercp There is no problem list on file for this patient. Medications: Reviewed in EDH No Known Allergies Social History/Family History: Reviewed in EDH. No changes Exam: Patient Vitals for the past 24 hrs: Temp Pulse BP SpO2 O2 Device 06/17/20 1225 36.8 ??C (98.2 ??F) 69 (!) 143/97 98 % RA Axox3, nad Anicteric, MMM CTAB RRR, no m/r/g abd soft nt nd +bs Assessment and Plan: Proceed with ERCP: ASA Grade: ASA 3 - Patient with moderate systemic disease with functional limitations Mallampati score:III (soft palate, base of uvula visible) Sedation plan: GETA Risks and benefits of the procedure were discussed with the patient. Consent has been signed. William Lorenzo MD documented in this encounter Miscellaneous Notes * Op Note - William Lorenzo MD - 06/17/2020 1:16 PM EDT [facility] Patient Name: Tiny Cline : [id number] MR#: [id number] Case Date: 06/17/2020 Surgeon: Surgeon(s) and Role: * William Lorenzo MD - Primary Preoperative diagnosis: CBD Stones back and forth Postoperative diagnosis: * No post-op diagnosis entered * Procedure(s): ERCP ERCP W/SPHINCTEROTOMY/PAPILLOTOMY ERCP W/REMOVAL CALCULI/DEBRIS FROM BILARY/PANCREATIC DUCT(S) Please see Provation report for details. documented in this encounter Plan of Treatment Pending Results Name Type Priority Associated Diagnoses Date /Time XR ERCP Imaging Storage Only Routine 05/30 12:43 PM EDT Scheduled Orders Name Type Priority Associated Diagnoses Orde r Schedule XR ERCP Imaging Storage Only Routine Once PRN (for Radiant use) for 1 Occurrences starting 06/17/2020 until 06/17/2020 documented as of this encounter Procedures Procedure Name Priority Date/Time Associated Diagnosis Comments Fragment Kidney Stone/ Eswl (82512) 06/17/2020 1:01 PM EDT CBD Stones back and forth Biliary Endoscopy, Percut, W/Rem, Stone(S) (24318) 06/17/2020 1:01 PM EDT CBD Stones back and forth Ercp, W/Removal Stone, Jay/Pancr Ducts (98203) 06/17/2020 1:01 PM EDT CBD Stones back and forth Ercp, Sphincterotomy (33227) 06/17/2020 1:01 PM EDT CBD Stones back and forth Ercp, Diagnostic (84016) 06/17/2020 1:01 PM EDT CBD Stones back and forth ERCP Routine 06/17/2020 10:04 AM EDT documented in this encounter Results * ERCP (06/17/2020 10:04 AM EDT) ERCP [facility] Procedure Date: 06/17/2020 10:04 AM ? Patient Name: Tiny Cline ? Date of : 1995 ? Age: 24 ? Order #: [id number] ? Instrument Name: [id number] ? Procedure: ? ERCP Indications: ? For therapy of bile duct stone(s) Providers: ? William Lorenzo, Morro Eastman, ? ROULA, Jayson Torres Referring MD: ? Medicines: ? General Anesthesia, Ancef 2000 mg IV Complications: ? No immediate complications. Procedure: ? Pre-Anesthesia Assessment: ? - Prior to the procedure, a History ? and Physical was performed, and ? patient medications and allergies ? were reviewed. The patient is ? competent. The risks and benefits of ? the procedure and the sedation ? options and risks were discussed with ? the patient. All questions were ? answered and informed consent was ? obtained. Patient identification and ? proposed procedure were verified by ? the physician in the pre-procedure ? area. Mental Status Examination: ? alert and oriented. Airway ? Examination: normal oropharyngeal ? airway and neck mobility. Respiratory ? Examination: clear to auscultation. ? CV Examination: normal. Prophylactic ? Antibiotics: The patient does not ? require prophylactic antibiotics. ? Prior Anticoagulants: The patient has ? taken no previous anticoagulant or ? antiplatelet agents. ASA Grade ? Assessment: III - A patient with ? severe systemic disease. After ? reviewing the risks and benefits, the ? patient was deemed in satisfactory ? condition to undergo the procedure. ? The anesthesia plan was to use ? general anesthesia. Immediately prior ? to administration of medications, the ? patient was re-assessed for adequacy ? to receive sedatives. The heart rate, ? respiratory rate, oxygen saturations, ? blood pressure, adequacy of pulmonary ? ventilation, and response to care ? were monitored throughout the ? procedure. The physical status of the ? patient was re-assessed after the ? procedure. ? The procedure, indications, benefits, ? risks and alternatives were explained ? to the patient. Specifically ? discussed were potential ? complications including, but not ? limited to, bleeding, perforation, ? infection, pancreatitis, missing a ? cancer, and adverse medication ? reactions. The Duodenoscope was ? introduced through the mouth, and ? advanced to the duodenum where it was ? used to inject contrast into and used ? to locate the major papilla. The ? patient tolerated the procedure well. ? Findings: ? A pulling machine operator film of the abdomen was obtained. Surgical ? clips, consistent with a previous cholecystectomy, ? were seen in the area of the right upper quadrant of ? the abdomen. The esophagus was successfully intubated ? under direct vision. The scope was advanced to a ? normal major papilla in the descending duodenum ? without detailed examination of the pharynx, larynx ? and associated structures, and upper GI tract. The ? upper GI tract was grossly normal. The bile duct was ? deeply cannulated with the short-nosed traction ? sphincterotome. Contrast was injected. I personally ? interpreted the bile duct images. There was brisk ? flow of contrast through the ducts. Image quality was ? excellent. Contrast extended to the hepatic ducts. ? The common bile duct contained a filling defect ? thought to be a stone. A 0.035 inch x 260 cm straight ? Dreamwire was passed into the biliary tree. Biliary ? sphincterotomy was made with a monofilament traction ? (standard) sphincterotome using ERBE electrocautery. ? There was no post-sphincterotomy bleeding. To ? discover objects, the biliary tree was swept with a ? 12 mm balloon starting at the bifurcation. I met ? resistance in he distal common bile duct and I was ? unable to extract the stone with the balloon. Pus was ? seen draining The decision was made to explore the ? bile duct endoscopically using the SpyGlass direct ? visualization system. The Spy Scope was advanced into ? the common bile duct. Visibility with the scope was ? excellent. The common bile duct contained one stone. ? The distal common bile duct mucosa was severely ? inflamed. Electrohydraulic lithotripsy was successful ? in breaking apart the stone which was then extracted ? with a balloon. The bile duct was again explored with ? the Scope which as advanced to the confluence. The ? common bile duct and common hepatic duct was ? diffusely inflamed. No stones remained. ? Moderate Sedation: ? Not applicable - See Anesthesia documentation Impression: ?- A filling defect consistent with a ? stone was seen on the cholangiogram. ? - Choledocholithiasis and pus was ? found. Complete removal was ? accomplished by biliary ? sphincterotomy, ductoscopy with EHL, ? and balloon extraction. ? - The common hepatic and common bile ? duct were diffusely inflamed - could ? be related to choledocholithiasis, ? but cannot exclude other primary ? inflammatory disorder of the bile ? duct (e.g., PSC) Recommendation: ?- Return patient to referring ? hospital for ongoing care. ? - Resume previous diet for 2 hours. ? - Observe patient's clinical course. ? - Broad spectrum antibiotics for ? treatment of cholangitis ? - Outpatient GI referral ? Attending Participation: ? I personally performed the entire procedure. ? William Lorenzo, 06/17/2020 2:01:58 PM Number of Addenda: 0 Note Initiated On: 06/17/2020 10:04 AM PROVATION 06/17/2020 10:0 4 AM EDT Unknown GENERAL SURGICAL ORD ERABLES PROVATION documented in this encounter Visit Diagnoses Not on filedocumented in this encounter Administered Medications Inactive Administered Medications - up to 3 most recent administrations Medication Order MAR Action Action Date Dose Rate Site lactated ringers infusion 100 mL/hr, Intravenous, CONTINUOUS, Starting on Wed06/17/20 at 1245, Until Wed06/17/20 at 1435, Endoscopy (Day of Procedure) New Bag 06/17/2020 12:45 PM EDT 100 mL/hr 100 mL/hr documented in this encounter Active and Recently Administered Medications Times are shown in EDT. Scheduled Medication Order 06/15/2020 06/16/2020 06/17/2020 indomethacin (Indocin) suppository 100 mg (COMPLETED) 100 mg, Rectal, ONCE, 1 dose, On Wed06/17/20 at 1345, Endoscopy (Intra-Procedure), Routine 1324 (Given - Provid er: Morro Eastman RN - Comment: two 50 mg suppositories placed in rectum)1345 (Due) Continuous Medication Order 06/15/2020 06/16/2020 06/17/2020 lactated ringers infusion (CANCELED) 100 mL/hr, Intravenous, CONTINUOUS, Starting on Wed06/17/20 at 1245, Until Wed06/17/20 at 1435, Endoscopy (Day of Procedure) 1245 (New Bag - Prov ider: Sophia Diallo RN) documented in this encounter Care Teams Boiler House Mechanic Relationship Specialty Start Date End Date Marva Hitchcock MD [address] [place] [address] [phone] PCP - General Family Medicine 06/17/20 documented as of this encounter
--- OUTSIDE RECORDS SUMMARY | 2023-12-04 20:13 | XMS_ITS | Encounter Summary ---
[place] [address] Care Team Providers Care Bead Cutter Name Role Phone Marva Hitchcock MD Primary Care Provider Encounter Details Date Type Department Care Team (Late st Contact Info) Description 06/17/2020 12:45 PM EDT Ancillary [place] [address] Social History Tobacco Use Types Packs/Day Years [...] as of this encounter Plan of Treatment Pending Results Name Type Priority Associated Diagnoses Date /Time XR ERCP Imaging Storage Only Routine 05/30 12:43 PM EDT documented as of this encounter Visit Diagnoses Not on filedocumented in this encounter Care Teams Bead Cutter Relationship Specialty Start Date End Date Marva Hitchcock MD [address] [place] [phone] PCP - General Family Medicine 06/17/20 documented as of this encounter
--- OUTSIDE RECORDS SUMMARY | 2023-12-04 20:13 | XMS_ITS | Encounter Summary ---
Author Organization [facility] Address [facility] [place] [address] Care Team Providers Care System Support Administrator Name Role Phone Marva Hitchcock MD Primary Care Provider [phone] Encounter Details Date Type Department Care Team (Late st Contact Info) Description 06/17/2020 12:00 PM EDT - 06/17/2020 1:30 PM EDT [place] [address] William Lorenzo MD [facility] [place] [address] ERCP (WRVU 5.39) Social History Tobacco Use Types Packs/Day Years [...] Sign Reading Time Taken Comments Blood Pressure 143/97 06/17/2020 12:25 PM EDT Pulse 69 06/17/2020 12:25 PM EDT Temperature 36.8 ??C (98.2 ??F) 06/17/2020 12:25 PM E DT Respiratory Rate - - Oxygen Saturation 98% 06/17/2020 12:25 PM EDT Inhaled Oxygen Concentration - - [...] the day after the procedure, use an jagr-szd-ljwehtw spray to numb your throat. Sucking on [...] occurs, please contact your Doctor. Please call [phone] before 8pm Mon-Fri with problems, questions or concerns. If you call after 8pm or on weekends, call the Hospital at [phone] and ask to speak to the Ordnance Engineer national account executive and the turning and beading machine operator will contact that person for you. When should you call for help? Call [phone] anytime you think you may need emergency [...] problems, like Where can you learn more? [facility] View your After Visit Summary and more online at [email or web address] If you would like to provide feedback [...] cost to you. Content Version: 12.2 ?? 6380-3010 [employer]. Care instructions adapted under license by [facility]. If you have questions about a medical condition or this instruction, always ask your healthcare professional. [employer] disclaims any warranty or liability for your [...] Lorenzo MD - 06/17/2020 1:16 PM EDT [facility] [place] Patient Name: Tiny Cline : [id number] MR#: [id number] Case Date: 06/17/2020 Surgeon: Surgeon(s) and Role: [...] Associated Diagnosis Comments Fragment Kidney Stone/ Eswl ([id number]) 06/17/2020 1:01 PM EDT CBD Stones back and forth Biliary Endoscopy, Percut, W/Rem, Stone(S) (76113) 06/17/2020 1:01 PM EDT CBD Stones back and forth Ercp, W/Removal Stone, Jay/Pancr Ducts ([id number]) 06/17/2020 1:01 PM EDT CBD Stones back and forth Ercp, Sphincterotomy (59108) 06/17/2020 1:01 PM EDT CBD Stones back and forth Ercp, Diagnostic ([id number]) 06/17/2020 1:01 PM EDT CBD Stones back and forth ERCP Routine 06/17/2020 10:04 AM EDT documented in this encounter Results * ERCP (06/17/2020 10:04 AM EDT) ERCP [facility] Endoscopy Procedure Date: 06/17/2020 10:04 AM ? Patient Name: Tiny Cline ? Date of : 1995 ? Age: 24 ? Order #: [id number] ? Instrument Name: [id number] ? Procedure: ? ERCP Indications: ? For therapy of bile duct stone(s) Providers: ? William Lorenzo, Morro Eastman, ? RN, Jayson Torres Referring MD: ? Medicines: ? [...] the procedure well. ? Findings: ? A websphere process server developer film of the abdomen was obtained. Surgical [...] MAR Action Action Date Dose Rate Site indomethacin (Indocin) suppository 100 mg 100 mg, Rectal, ONCE, 1 dose, On Wed06/17/20 at 1345, Endoscopy (Intra-Procedure), Routine Given 06/17/2020 1:24 PM EDT 100 mg lactated ringers infusion 100 mL/hr, Intravenous, CONTINUOUS, [...] RN) documented in this encounter Care Teams System Support Administrator Relationship Specialty Start Date End Date Marva Hitchcock MD [address] [place] [phone] PCP - General Family Medicine 06/17/20 documented as of this encounter
--- OUTSIDE RECORDS SUMMARY | 2023-12-04 20:13 | XMS_ITS | Encounter Summary ---
Author Organization [facility] Address [address] [place] [address] Care Team Providers Care Director Internal Control Name Role Phone Juanito Ayla Keagan LACY Primary Care Provider [phone] Reason for Visit * Reason Onset Date Comments Appointment Related 04/23/2023 Encounter Details Date Type Department Care Team (Late st Contact Info) Description 04/23/2023 Telephone [facility] End[facility]ology - [facility] [address] [place] [address] Carlos Nuñez DO [address] [facility] [facility] [address] [place] [address] Appointment Related Social History Tobacco Use Types Packs/Day Years [...] in the Last Year Never true 11/07/2019 [place] Depression Scale Answer Date Recorded [place] Depression Scale Total 21 09/17/2021 The thought [...] No 08/06/2021 documented as of this encounter Miscellaneous Notes * Telephone Encounter - Alie Zhang - 04/23/2023 1305 EST Left voicemail to schedule Follow Up telehealth appointment with dr. nuñez Patient is due anytime after 01/14/24 Recall Letter Sent. Recall . documented in this encounter Plan of Treatment Not on file documented as of this encounter Goals Goal Patient Goal Type Associated Problems Recent Progress Patient-Stated? Author Weight Loss General Obesity, Class III, BMI 40-49.9 (morbid obesity) No Marva Hitchcock Note: Increased activity getting out doors with daughter documented as of this encounter Visit Diagnoses Not on filedocumented in this encounter Care Teams Director Internal Control Relationship Specialty Start Date End Date Ayla Solomon DO [facility] [address] [place] [address] PCP - General General Surgery 2/12/22 documented as of this encounter
--- OUTSIDE RECORDS SUMMARY | 2023-12-04 20:13 | XMS_ITS | Encounter Summary ---
Author Organization [facility] Address [facility] [place] [address] Care Team Providers Care Grain Oilseed Or Pasture Farm Manager Name Role Phone Marva Hitchcock MD Primary Care Provider [phone] Reason for Visit * Consultation (Routine) - Closed Specialty Diagnoses / Procedures Referred By Eugene asencio Referred To Contact Obstetrics and Gynecology Diagnoses Encounter for supervision of normal , unspecified, unspecified trimester Endocrine, nutritional and metabolic diseases complicating , unspecified trimester ELEVATED BMI Ansley Chew, ROSENDO [address] [place] [address] [place] [address] [facility] [address] [place] [address] Referral ID Status Reason Start Date Expiration Date V isits Requested Visits Authorized [id number] Closed Consult, Test & Treat Connection Center PCP Updated and/or Approved 01/28/2021 01/28/2022 6 6 Encounter Details Date Type Department Care Team (Latest Contact Info) Description 03/26/2021 12:30 PM EST TH Visit (TeleHealth) Obstetrics [place] [address] Jolene Zhang MD [facility] DR OBSTETRICS [place] [address] Graves disease; Hypothyroidism affecting in second trimester; Obesity complicating , second trimester Social History Tobacco Use Types Packs/Day Years [...] Sign Reading Time Taken Comments Blood Pressure 113/67 03/26/2021 11:20 AM EST Pulse 101 03/26/2021 11:20 AM EST Temperature 36.9 ??C (98.4 ??F) 03/26/2021 1 1:20 AM EST Respiratory Rate 18 03/26/2021 11:2 0 AM EST Oxygen Saturation 100% 03/26/2021 11: 20 AM EST Inhaled Oxygen Concentration - - Weight 126.4 kg (278 lb 9.6 oz) 022 11:20 AM EST Height - - Body Mass Index 52.64 06/17/2020 12:25 PM EDT documented in this encounter Progress Notes * Jolene Zhang MD - 03/26/2021 12:30 PM EST Maternal Medicine Consult Note Tiny Cline is a 25 y.o. G2P 1001 who is at 20w1d gestation by ultrasound. She is seen in consultation at the request of Ansley Chew CNM for evaluation of a history of Grave's disease and prior ablation. She was seen today for maternal- medicine consultation and ultrasound evaluation. She had 2 NIPT's which were low fraction. She reports that a teenager it was very difficult to control her hyperthyroidism and she had an ablation. She has been on replacement and monitored byan auto service instructor. Record Review No additional issues Past Medical History: Diagnosis Date ??? Asthma triggers; cold temp, URI, exercise ??? Genital HSV ??? Graves disease teenager. Treated with thyroidectomy ??? Obesity Past Surgical History: Procedure Laterality Date ??? CHOLECYSTECTOMY 2020 at [facility] ??? PRO BILIARY ENDOSCOPY, PERCUT, W/REM, STONE(S) N/A 06/17/2020 CHOLEDOCHOSCOPY, REMOVAL OF CALCULUS\CALCULI (WRVU 9.05) performed by William Lorenzo MD at [facility] ENDOSCOPY ??? PRO ERCP, SPHINCTEROTOMY 06/17/2020 ERCP W/SPHINCTEROTOMY/PAPILLOTOMY performed by William Lorenzo MD at [facility] ENDOSCOPY ??? PRO ERCP, W/REMOVAL STONE, HARDEEP/PANCR DUCTS 06/17/2020 ERCP W/REMOVAL CALCULI/DEBRIS FROM BILARY/PANCREATIC DUCT(S) performed by William Lorenzo MD at [facility] ENDOSCOPY ??? PRO ERCP,DIAGNOSTIC N/A 06/17/2020 ERCP performed by William Lorenzo MD at [facility] ENDOSCOPY ??? PRO FRAGMENT KIDNEY STONE/ ESWL Bilateral 06/17/2020 LITHOTRIPSY-HARDEEP (WRVU 9.77) performed by William Lorenzo MD at [facility] ENDOSCOPY OB History Para Term AB Living 2 1 1 0 0 1 SAB IAB Ectopic Multiple Live Births 0 0 0 0 1 # Outcome Date GA Lbr Eduardo/2nd Weight Sex Delivery Anes PTL Lv 2 Current 1 Term 2018 40w0d 3.827 kg (8 lb 7 oz) F Vag-Spont N WEI A family history was obtained. Her father has thyroid disease. There is no other history of structural abnormalities, inheritable disease, learning disability,intellectual disability, epilepsy, fetaldeath or repetitive loss. The ethnic backgrounds do not suggest a significantly increasedgenetic risk. Social: Denies illicit substance use or alcohol Denies tobacco use Current Outpatient Medications Medication Sig Dispense Refill ??? albuteroL 90 mcg/actuation HFA Aerosol Inhaler Inhale 2 puffs into the lungs Every 4 hours as needed. ??? levothyroxine (Synthroid) 50 mcg Tablet Take 50 mcg by mouth Daily. ??? pantoprazole EC (Protonix) 40 mg Tablet, Delayed Release (E.C.) TAKE ONE TABLET BY MOUTH EVERY DAY ??? Vitamin Plus Low Iron 27 mg iron- 1 mg Tablet TAKE ONE TABLET BY MOUTH ONCE DAILY. TAKE WITH A MEAL/SNACK. ??? valACYclovir (Valtrex) 500 mg Tablet TAKE ONE TABLET BY MOUTH TWICE A DAY ??? levothyroxine (Synthroid) 200 mcg Tablet Take 200 mcg by mouth daily. No current facility-administered medications for this visit. Allergies Allergen Reactions ??? Loracarbef Nausea And Vomiting ??? Yeast, Dried Nausea And Vomiting If consumes large amounts will develop N/V Review of Systems Constitutional: generally well Eyes: negative Ears Nose Throat:negative Respiratory: no cough, shortness of breath, or wheezing Cardiac: negative Gastrointestinal: Normal bowel movements, denies hematochezia, melena or pain. Genitourinary: Negative for dysuria Musculoskeletal: negative Skin: negative Psychiatric: Negative for anxiety, depression Endocrine:negative Contractions: none Leaking: none Bleeding: none Ultrasound 2nd Trimester - Detailed Morphology - Summary Single intrauterine with a gestational age of 20w 0d based on Early Ultrasound (12/19/20) Composite age based on the current ultrasound alone is 19w 6d. Current growth parameters are consistent with prior dating indicating normal growth. Amniotic fluid volume is normal Detailed anatomic evaluation was performed and no structural abnormalities are noted. Physical Exam Patient Vitals for the past 24 hrs: Temp Pulse Resp BP SpO2 03/26/21 1120 36.9 ??C (98.4 ??F) (!) 101 18 113/67 100 % General: alert, well appearing, in no apparent distress HEENT: normocephalic, atraumatic Extremities: normal Neurologic:alert, oriented, normal speech Abdomen: abdomen is soft without significant tenderness Psychiatric: affect is appropriate. Uterine Size: consistent with dates and obesity Assessment and Recommendations: 25 y.o. at 20w1d weeks gestation. History of Grave's disease. ??The patient was counseled that the antibodies that cause hyperthyroidism cross the placenta and may affect her fetus. The need for thyroid replacement hormone can changeduring . She is already being closely followed by an auto service instructor. I recommended that Thyroid Stimulating Immunoglobulin be checked in the third trimester. If these are more that five times above normal, there is a risk for and transient thyrotoxicosis, and the fetus should be followed for tachycardia and IUGR. If evidence of thyrotoxicosis is seen in the second trimester or early third trimester, then PTU therapy may be considered. This is a rare event. Failed NIPT. The most likely reason is obesity. Having a failed NIPT does increase her risk for aneuploidy. I offered quad screen and amniocentesis which she declined. Obesity. I explained that this decreases our ability to detect abnormalities. It also places her atrisk for diabetes and hypertension. I see that an anesthesia consultation has already been planned locally. I appreciate the opportunity to be involved in this patient's care and am available if further questions should arise. Jolene Zhang MD 03/27/2021 Cc: Ansley Chew, [address] [place] [address] documented in this encounter Plan of Treatment Not on file documented as of this encounter Procedures Procedure Name Priority Date/Time Associated Diagnosis Comments HC VENIPUNCTURE Routine 03/26/2021 12:40 PM EST Graves disease documented in this encounter Results * Thyroid Stimulating Immunoglobulins (03/26/2021 12:40 PM EST) Thyroid Stimulating Immunoglobulin <0.10 <=0.55 IU/L [facility] Blood 03/26/2021 12:4 0 PM EST 03/27/2021 6:44 AM EST Narrative Resulting Agency Comment Spec In Lab Jolene Zhang MD IMMUNOLOGY ORDERABLE S [facility] [place] [address] documented in this encounter Visit Diagnoses Diagnosis Graves disease Toxic diffuse goiter without mention of thyrotoxic crisis or storm Hypothyroidism affecting in second trimester Obesity complicating , second trimester documented in this encounter Care Teams Grain Oilseed Or Pasture Farm Manager Relationship Specialty Start Date End Date Marva Hitchcock MD [address] [place] [phone] PCP - General Family Medicine 06/17/20 documented as of this encounter
--- OUTSIDE RECORDS SUMMARY | 2023-12-04 20:13 | XMS_ITS | Encounter Summary ---
Author Organization [facility] Address [place] [address] Care Team Providers Care Senior Java Architect Name Role Phone Marva Hitchcock MD Primary Care Provider Encounter Details Date Type Department Care Team (Latest Contact Info) Description 05/06/2023 Travel Social History Tobacco Use Types Packs/Day [...] on filedocumented in this encounter Care Teams Senior Java Architect Relationship Specialty Start Date End Date Marva Hitchcock MD [address] [place] [phone] PCP - General Family Medicine 06/17/20 documented as of this encounter
--- OUTSIDE RECORDS SUMMARY | 2023-12-04 20:13 | XMS_ITS | Encounter Summary ---
Author Organization [facility] [address] Care Team Providers Care Head Loft Worker Name Role Phone Marva Hitchcock MD Primary Care Provider Encounter Details Date Type Department Care Team (Late st Contact Info) Description 04/22/2023 External Results Obstetrics [place] [address] Jhoana Diamond, RN Social History Tobacco Use Types Packs/Day Years [...] Procedure Name Priority Date/Time Associated Diagnosis Comments TSH CASCADE Routine 03/30/2023 HEMOGRAM Routine 03/30/2023 COMPREHENSIVE METABOLIC PANEL Routine 03/30/2023 URINALYSIS WITH REFLEX CULTURE Routine 03/20/2023 TYPE AND SCREEN ([facility]/CGP/AMY) Routine 12/14/2022 documented in this encounter Results * Hemogram (03/30/2023) White Blood Cell 8.0 Red Blood Cell 3.99 Hemoglobin 11.6 Hematocrit 34.7 Mean Cell Volume 87.0 Mean Cell Hemoglobin 29.1 Mean Cell Hemoglobin Concentration 33.4 RDW coefficient of variation 14.4 Platelet 289 Mean Platelet Volume 9.1 Blood 03/30/2023 Historical Provider HEMATOLOGY ORDERA BLES * Comprehensive metabolic panel (non-fasting) (03/30/2023) Glucose 137 Blood Urea Nitrogen 5 Creatinine 0.5 Est Glomerular Filtration Rate 130.12 Sodium 138 Potassium 3.5 Chloride 103 Carbon Dioxide 25 Calcium 8.4 Protein, Total 6.7 Albumin 2.5 Bilirubin, Total 0.2 Alkaline Phosphatase 86 Aspartate Aminotransferase 9 Alanine Aminotransferase 17 Blood 03/30/2023 Historical Provider CHEMISTRY ORDERAB LES * TSH [place] (03/30/2023) Thyroid Stimulating Hormone 0.42 Free T4 1.31 Blood 03/30/2023 Historical Provider CHEMISTRY ORDERAB LES * Urinalysis with reflex Culture (03/20/2023) Color, Urine Dipstick yellow Appearance, Urine Dipstick clear Specific [place] Urine Automated >1.030 pH, Urn (dipstick) 6.0 Protein, Urine Dipstick trace Glucose, Urine Dipstick negative Ketone, Urine Dipstick trace Bilirubin, Urine Dipstick small Urobilinogen, Urine Dipstick 0.2 Blood, Urine Dipstick negatve Leukocytes, Urine Dipstick negative Nitrite, Urine Dipstick negative WBC, Urine 0-2 RBC, Urine negative Bacteria, Urine few Squamous Epithelial Cells Raw Data, Urine many Crystals rare calcium oxalate Casts negative Mucous Threads heavy Culture Indicated? No/Sq. Contamination 03/20/2023 Historical Provider URINE ORDERABLES * Type and screen ([facility]/CGP/AMY) (12/14/2022) ABORH Type O POSITIVE Comment:Antibody Screen NEGA TVIE Blood 12/14/2022 Historical Provider BLOOD BANK LAB OR DERABLES documented in this encounter Visit Diagnoses Not on filedocumented in this encounter Care Teams Head Loft Worker Relationship Specialty Start Date End Date Marva Hitchcock MD [address] [place] [phone] PCP - General Family Medicine 06/17/20 documented as of this encounter
--- OUTSIDE RECORDS SUMMARY | 2023-12-04 20:13 | XMS_ITS | Encounter Summary ---
Author Organization [facility] Address [address] [place] [address] Care Team Providers Care Energy Systems Engineer Name Role Phone Juanito Ayla Keagan LACY Primary Care Provider [phone] Reason for Visit * Reason Onset Date Comments Medications Refill 01/02/2023 levothyroxine Encounter Details Date Type Department Care Team (Late st Contact Info) Description 01/02/2023 Refill [facility] Endocrinology - [facility] [address] [place] [address] Carlos Nuñez DO [address] [facility] [address] [place] [phone] Medications Refill (levothyroxine) Social History Tobacco Use Types Packs/Day Years [...] in the Last Year Never true 11/07/2019 [place] Depression Scale Answer Date Recorded [place] Depression Scale Total 21 09/17/2021 The thought [...] ablation Take 1 Tablet by mouth daily. 90 Tablet 3 01/04/2023 01/06/2023 documented in this encounter Miscellaneous Notes * Telephone Encounter - Natalia Mejía RN - 01/04/2023 1533 EST Orders validated and processed refill request. Natalia Mejía RN * Telephone Encounter - Krystal Hobson - 01/04/2023 1522 EST Endocrinology Incoming Call Reason for call: Medications Refill Medication Issue/PA Request Patient states that her insurance will not pay for prescriptions that are written for less than 90 day fills. Current Rx is approved for 30 day fills. Medication(s) Requested: levothyroxine (SYNTHROID) 75 mcg tablet Pharmacy: [facility] Will the patient be out of medication in the next 3 days? Yes - Send HIGH priority to [facility] Nurse [place] Next Appointment: 01/06/2023 Last Office Visit: Visit date not found Last Telehealth Encounter:12/28/2019 If patient was seen more than 1 year ago and doesn???t have an upcoming appointment scheduled, please schedule an appointment for the patient prior to routing the encounter. * Telephone Encounter - Lainey Waite MA - 01/02/2023 1354 EDT Tiny called to speak with the office regarding her levothyroxine prescription. She has spoken tothe pharmacy and they do not have any more refills for her. Please call her regarding this as soon as possible as she is and running out of the medication. documented in this encounter Plan of Treatment [...] ablation Take 1 Tablet by mouth daily. Reorder 11/02/2022 01/04/2023 documented as of this encounter Care Teams Energy Systems Engineer Relationship Specialty Start Date End Date Ayla Solomon DO [facility] [facility] [address] [place] [address] PCP - General General Surgery 04/12/21 documented as of this encounter
--- OUTSIDE RECORDS SUMMARY | 2023-12-04 20:13 | XMS_ITS | Encounter Summary ---
Author Organization [facility] Address [facility] [place] [address] Care Team Providers Care Political Director Name Role Phone Marva Hitchcock MD Primary Care Provider [phone] Reason for Visit * Reason Comments Routine Visit Encounter Details Date Type Department Care Team (Late st Contact Info) Description 05/06/2023 11:00 AM EST Office Visit Obstetrics [place] [address] Ariel Larsen MD [facility] DR OBSTETRICS [place] [address] Maternal morbid obesity in third trimester, antepartum; [...] Sign Reading Time Taken Comments Blood Pressure 117/70 05/06/2023 11:05 AM EST Pulse - - Temperature - - Respiratory Rate - - Oxygen Saturation - - Inhaled Oxygen Concentration - - Weight 122.3 kg (269 lb 11.2 oz) 2023 11:05 AM EST Height 160 cm (5' 3) 05/06/2023 11:05 AM EST Body Mass Index 47.78 05/06/2023 11:05 AM EST documented in this encounter Progress Notes * Ariel Larsen MD - 05/06/2023 11:00 AM EST Asked by Namita Stockton MD, to see this 27 yo at 32w3d with elevated BMI, surgical hypothyroidism and hx/o gestational hypertension for US and MFM visit and delivery planning. US today: Cephalic, Posterior Placenta, CHRISTI = 18.8cm, Reassuring anatomy, EFW = 27% (1880gm = 4lb 2oz) Scheduled for Anesthesia consult 05/16 POB -vaginal delivery x 2 at [facility] -Hx/o gHTN with second , but with IOL at 39 weeks.: BP today 117/70 ASA Was taking 1 a/w 2/day. Has stopped. I recommend she restart at 162mg/day - Surgical hypothyroidism: Meds: Last TSH: 03/30/23 TSH = 0.42 Delivery planning: Scheduled IOL at 06/20. Induction instructions given. Contraception planning: Planning OCPs at 6 weeks (combined contraception) Planning on Bottle feeding Weekly NST at 34 weeks (planned to be done locally). F/u telehealth in 4-6 weeks. MD Leonor 30 minutes was spent preparing for, performing, documenting and communicating this follow up MFM consultation documented in this encounter Plan of Treatment Not on file documented as of this encounter Visit Diagnoses Diagnosis Maternal morbid obesity in third trimester, antepartum Thyroid disease affecting documented in this encounter Care Teams Political Director Relationship Specialty Start Date End Date Marva Hitchcock MD [address] [place] [phone] PCP - General Family Medicine 06/17/20 documented as of this encounter
--- OUTSIDE RECORDS SUMMARY | 2023-12-04 20:13 | XMS_ITS | Encounter Summary ---
Author Organization [facility] Address [address] [place] [address] Care Team Providers Care Prefitter Name Role Phone Juanito Ayla Keagan LACY Primary Care Provider [phone] Reason for Visit * Reason Onset Date Comments Pre-visit Orders 12/28/2022 Encounter Details Date Type Department Care Team (Late st Contact Info) Description 12/28/[address] [facility] Endocrinology - [facility] [address] [place] [address] Carlos Nuñez DO [address] [facility] [address] [place] [phone] Pre-visit Orders Social History Tobacco Use Types Packs/Day Years [...] in the Last Year Never true 11/07/2019 [place] Depression Scale Answer Date Recorded [place] Depression Scale Total 21 09/17/2021 The thought [...] Encounter - Natalia Mejía RN - 01/04/2023 1348 EST TSH and Free T4 standing lab orders efaxed to [facility]. Natalia Mejía RN * Telephone Encounter - Praveen Mckee - 12/28/2022 1609 EDT The patient would like standing orders sent to [facility] for thyroid so they can have it on file. Pleasefax to [phone] documented in this encounter Plan of Treatment Scheduled Orders Name Type Priority Associated Diagnoses Orde r Schedule TSH Lab Routine Hypothyroidism, postablative 6 Occurrences starting 01/04/2023 until 01/05/2024 T4 FREE Lab Routine Hypothyroidism, postablative 6 Occurrences starting 01/04/2023 until 01/05/2024 documented as of this encounter Goals Goal Patient Goal Type Associated Problems Recent Progress Patient-Stated? Author Weight Loss General Obesity, Class III, BMI 40-49.9 (morbid obesity) No Marva Hitchcock Note: Increased activity getting out doors with daughter documented as of this encounter Visit Diagnoses Diagnosis Hypothyroidism, postablative- Primary Other postablative hypothyroidism documented in this encounter Care Teams Prefitter Relationship Specialty Start Date End Date Ayla Solomon DO [facility], [id number] [facility] [address] [place] [address] PCP - General General Surgery 04/12/21 documented as of this encounter
--- OUTSIDE RECORDS SUMMARY | 2023-12-04 20:13 | XMS_ITS | Encounter Summary ---
Author Organization [facility] Address [facility] [place] [address] Care Team Providers Care Resident Services Manager Name Role Phone Marva Hitchcock MD Primary Care Provider [phone] Encounter Details Date Type Department Care Team (Latest Contact Info) Description 05/10/2023 Travel Social History Tobacco Use Types Packs/Day [...] on filedocumented in this encounter Care Teams Resident Services Manager Relationship Specialty Start Date End Date Marva Hitchcock MD [address] [place] [phone] PCP - General Family Medicine 06/17/20 documented as of this encounter
--- OUTSIDE RECORDS SUMMARY | 2023-12-04 20:13 | XMS_ITS | Encounter Summary ---
Author Organization [facility] Address [facility] [place] [address] Care Team Providers Care Agency Development Manager Name Role Phone Marva Hitchcock MD Primary Care Provider [phone] Reason for Visit * Consultation (Routine) - Closed Specialty Diagnoses / Procedures Referred By Eugene asencio Referred To Contact Pre-Admission Testing Diagnoses Obesity affecting , antepartum, unspecified obesity type Ely Nieto MD [facility] [place] [address] [facility] Pre Admit Test [address] [place] [address] Referral ID Status Reason Start Date Expiration Date V isits Requested Visits Authorized [id number] Closed Consult Only 04/19/2023 04/18/2024 1 1 Encounter Details Date Type Department Care Team (Late st Contact Info) Description 05/18/2023 12:00 PM EDT [place] [address] Social History Tobacco Use Types Packs/Day Years [...] Sign Reading Time Taken Comments Blood Pressure 123/89 05/18/2023 11:26 AM EDT Pulse 96 05/18/2023 11:26 AM EDT Temperature - - Respiratory Rate - - Oxygen Saturation 96% 05/18/2023 11: 26 AM EDT Inhaled Oxygen Concentration - - Weight 124.1 kg (273 lb 9.6 oz) 024 11:26 AM EDT Height 160 cm (5' 3) 05/18/2023 11:26 AM EDT Body Mass Index 48.47 05/18/2023 11:26 AM EDT documented in this encounter Plan of Treatment Not on file documented as of this encounter Visit Diagnoses Not on filedocumented in this encounter Care Teams Agency Development Manager Relationship Specialty Start Date End Date Marva Hitchcock MD [address] [place] [phone] PCP - General Family Medicine 06/17/20 documented as of this encounter
--- OUTSIDE RECORDS SUMMARY | 2023-12-04 20:13 | XMS_ITS | Encounter Summary ---
Author Organization [facility] Address [address] [place] [address] Care Team Providers Care Veterinary Parasitologist Name Role Phone Ayla Solomon DO Primary Care Provider [phone] Encounter Details Date Type Department Care Team (Late st Contact Info) Description 02/10/2023 Lab Requisition [facility] Pathology & Laboratory Medicine - [facility] [address] [place] [address] Outr Resulting Lab, Provider Social History Tobacco [...] in the Last Year Never true 11/07/2019 [place] Depression Scale Answer Date Recorded [place] Depression Scale Total 21 09/17/2021 The thought [...] Procedure Name Priority Date/Time Associated Diagnosis Comments H. PYLORI ANTIGEN Routine 02/10/2023 9:00 EST documented in this encounter Results * H. PYLORI ANTIGEN (02/10/2023 9:00 EST) H. Pylori Negative Negative 02/12/2023 13:31 EST [facility] Comment:Indicates the absenc e of H. pylori stool antigen, (or the level of antigen is below that which can be detected by the assay) Feces SPECIMEN FROM RECTUM / Unknown 02/10/2023 9:00 EST 02/10/2023 21:21 EST Narrative [facility] - 02/12/2023 13:31 EST New Liaison XL testing method used as of 12/21/2022 Provider Outr Resulting Lab MICROBIOLOGY - GENERAL ORDERABLES [facility] [address] [place] [address] documented in this encounter Visit Diagnoses Not on filedocumented in this encounter Care Teams Veterinary Parasitologist Relationship Specialty Start Date End Date Ayla Solomon DO [address] [place] [address] PCP - General General Surgery 04/12/21 documented as of this encounter
--- OUTSIDE RECORDS SUMMARY | 2023-12-04 20:13 | XMS_ITS | Encounter Summary ---
Author Organization [facility] Address [address] [place] [address] Care Team Providers Care Mowing Machine Operator Name Role Phone Juanito Ayla Keagan LACY Primary Care Provider [phone] Reason for Visit * Reason Onset Date Comments Medications Refill 12/28/2022 Encounter Details Date Type Department Care Team (Late st Contact Info) Description 12/28/2022 Telephone [facility] Endocrinology - [facility] [address] [place] [address] Carlos Nuñez DO [address] [facility] [address] [place] [address] Medications Refill Social History Tobacco Use Types Packs/Day Years [...] in the Last Year Never true 11/07/2019 [place] Depression Scale Answer Date Recorded [place] Depression Scale Total 21 09/17/2021 The thought [...] Telephone Encounter - Natalia Mejía RN - 12/28/2022 1159 EDT TSH and Free T4 lab ordered. Sent MyChart. She needs these drawn before refill. Natalia Mejía RN * Telephone Encounter - Jannie Lindsey MA - 12/28/2022 1144 EDT Images from the original note were not included. FYI, please review note below appropriately for LEVOTHYROXINE 7MCG TAB from [facility] pharmacy thank you. documented in this encounter Plan of Treatment [...] Start Date End Da te levothyroxine (SYNTHROID) 200 mcg tabletIndications:Hypothy roidism, postablative Take 1 Tablet by mouth daily. To be taken with a 50 mcg tablet for a total of 250 mcg PO daily. 08/04/2022 12/28/2022 documented as of this encounter Care Teams Mowing Machine Operator Relationship Specialty Start Date End Date Ayla Solomon DO [facility] [place] [address] PCP - General General Surgery 04/12/21 documented as of this encounter
--- OUTSIDE RECORDS SUMMARY | 2023-12-04 20:13 | XMS_ITS | Encounter Summary ---
Author Organization [facility] [place] [address] Care Team Providers Care Brush And Broom Clipper Name Role Phone Marva Hitchcock MD Primary Care Provider [phone] Encounter Details Date Type Department Care Team (Latest Contact Info) Description 06/21/2023 11:13 AM EDT - 06/21/2023 11:59 PM EDT Hospital Encounter [facility] [place] [address] Discharge Disposition: Home Social History Tobacco Use [...] on filedocumented in this encounter Care Teams Brush And Broom Clipper Relationship Specialty Start Date End Date Marva Hitchcock MD [address] [place] [id number] PCP - General Family Medicine 06/17/20 documented as of this encounter
--- OUTSIDE RECORDS SUMMARY | 2023-12-04 20:13 | XMS_ITS | Encounter Summary ---
Author Organization [facility] Address [address] [place] [address] Care Team Providers Care Keying Machine Operator Name Role Phone Ayla Solomon DO Primary Care Provider [phone] Encounter Details Date Type Department Care Team (Late st Contact Info) Description 01/12/2023 Lab Requisition [facility] Pathology & Laboratory Medicine - [facility] [address] [place] [address] Outr Resulting Lab, Provider Social History Tobacco [...] in the Last Year Never true 11/07/2019 [place] Depression Scale Answer Date Recorded [place] Depression Scale Total 21 09/17/2021 The thought [...] Comments CHLAMYDIA/N. GONORRHOEAE AMPLIFIED NUCLEIC ACID Routine 01/12/2023 9:20 EST documented in this encounter Results * CHLAMYDIA/N. GONORRHOEAE AMPLIFIED RNA (01/12/2023 9:20 EST) Neisseria gonorrhoeae Result Negative Negative 01/13/2023 14:30 EST [facility] Chlamydia trachomatis Result Negative Negative 01/13/2023 14:30 EST [facility] Urine 01/12/2023 9:20 EST 01/12/2023 18:08 EST Narrative [facility] - 01/13/2023 14:30 EST A first catch urine specimen is acceptable for detection of Gonorrhea and Chlamydia, but might detect up to 10% fewer infections when compared with vaginal and endocervical swab samples. Provider Outr Resulting Lab MICROBIOLOGY - GENERAL ORDERABLES [facility] [address] [place] [address] documented in this encounter Visit Diagnoses Not on filedocumented in this encounter Care Teams Keying Machine Operator Relationship Specialty Start Date End Date Ayla Solomon DO [address] [place] [address] PCP - General General Surgery 04/12/21 documented as of this encounter
--- OUTSIDE RECORDS SUMMARY | 2023-12-04 20:14 | XMS_ITS | Encounter Summary ---
Author Organization [facility] Address [address] [place] [address] Care Team Providers Care Nurse Informaticist Name Role Phone Juanito Ayla Keagan LACY Primary Care Provider [phone] Reason for Visit * Reason Comments Routine Visit +fm, -ctx, -lof, -vb Encounter Details Date Type Department Care Team (Late st Contact Info) Description 08/06/2021 10:30 EDT Routine [facility] OBGYN Services - [address] [address] Jenny Samuel, PARI [address] [facility] [place] [address] GA: 39w1d Social History Tobacco Use Types Packs/Day Years [...] in the Last Year Never true 11/07/2019 Interpersonal Safety Answer Date Record ed Physically Hurt Never 08/04/2020 Verbally Threaten Not on file 08/04/2020 Comments Yes Sex and Gender Information Value Date Recorded Sex Assigned at Not on file Gender Identity Female 03/02/2019 11:17 EST Sexual Orientation Not on file documented as of this encounter Last Filed Vital Signs Vital Sign Reading Time Taken Comments Blood Pressure 148/95 08/06/2021 1055 EDT Pulse - - Temperature - - Respiratory Rate - - Oxygen Saturation - - Inhaled Oxygen Concentration - - Weight 135.3 kg (298 lb 3.2 oz) 08/06/2021 1021 EDT Height - - Body Mass Index 53.5 06/09/2021 1314 EDT documented in this encounter Functional Status Functional Status Response [...] No 08/06/2021 documented as of this encounter Progress Notes * Jenny Samuel, PARI - 08/06/2021 1030 EDT CC: 25 y.o. @ 39w1d here for antepartum visit S: Pt c/o right sided back and hip MSK pain. Denies contractions, LOF, VB. Good FM. O: Vitals: BP: (!) 148/95 Weight : (!) 135.3 kg (298 lb 3.2 oz) Heart Rate: NST Movement: Present Presentation: Vertex A/P: 25 y.o. @ 39w1d Problem list reviewed and updated Supervision of other normal Continued elevated BP during office visit as well as BPP/NST earlier. Testing results not availableyet, WNL per pt. Pt endorses intermittent epigastric pain and lower extremity edema. Denies TRIVEDI, visual changes, chest pain, SOB, or facial edema. Sent to L&D for eval and possible Jenny Samuel NP documented in this encounter Miscellaneous Notes * Assessment & Plan Note - Jenny Samuel NP - 08/06/2021 1056 EDT Associated Problem(s): Supervision of other normal Continued elevated BP during office visit as well as BPP/NST earlier. Testing results not availableyet, WNL per pt. Pt endorses intermittent epigastric pain and lower extremity edema. Denies TRIVEDI, visual changes, chest pain, SOB, or facial edema. Sent to L&D for eval and possible induction r/t gHTN documented in this encounter Plan of Treatment Not on file documented as of this encounter Goals Goal Patient Goal Type Associated Problems Recent Progress Patient-Stated? Author Weight Loss General Obesity, Class III, BMI 40-49.9 (morbid obesity) No Marva Hitchcock Note: Increased activity getting out doors with daughter documented as of this encounter Visit Diagnoses Diagnosis Supervision of other normal - Primary documented in this encounter Care Teams Nurse Informaticist Relationship Specialty Start Date End Date Ayla Solomon DO [facility] [place] [address] PCP - General General Surgery 04/12/21 documented as of this encounter
--- OUTSIDE RECORDS SUMMARY | 2023-12-04 20:14 | XMS_ITS | Encounter Summary ---
Author Organization [facility] Address [address] [place] [address] Care Team Providers Care Copper Miner Blasting Name Role Phone Ayla Solomon DO Primary Care Provider [phone] Encounter Details Date Type Department Care Team (Late st Contact Info) Description 07/30/2021 16:15 EDT Phlebotomy Only [facility] Center 2 Phlebotomy [address] [place], [place] [address] Assistant Casino Shift Manager, Acc Phlebotomy Status post radioactive iodine thyroid ablation; Hypothyroidism, postablative; Supervision of high risk , antepartum Social History Tobacco Use Types Packs/Day Years [...] you have serious difficulty h earing? No 08/08/2017 Are you blind or do you have serious difficulty seeing, even when wearing glasses? No 08/08/2017 Do you have serious difficul ty walking or climbing stairs? (5 years old or older) No 08/08/2017 Do you have difficulty dress ing or bathing? (5 years old or older) No 08/08/2017 Because of a physical, menta l, or emotional condition, does this person have difficulty doing errands alone such as visiting a doctor's office or shopping? No 09/29/2017 Cognitive Status Response Date of Assessm ent Because of a physical, menta l, or emotional condition, does this person have serious difficulty concentrating, remembering, or making decisions? Yes 05/05/2019 documented as of this encounter Plan of Treatment Not on file documented as of this encounter Goals Goal Patient Goal Type Associated Problems Recent Progress Patient-Stated? Author Weight Loss General Obesity, Class III, BMI 40-49.9 (morbid obesity) No Marva Hitchcock Note: Increased activity getting out doors with daughter documented as of this encounter Procedures Procedure Name Priority Date/Time Associated Diagnosis Comments URIC ACID Routine 07/30/2021 16:21 EDT Supervision of high risk , antepartum BUN Routine 07/30/2021 16:21 EDT Supervision of high risk , antepartum ALT Routine 07/30/2021 16:21 EDT Supervision of high risk , antepartum AST Routine 07/30/2021 16:21 EDT Supervision of high risk , antepartum TSH Routine 07/30/2021 16:21 EDT Status post radioactive iodine thyroid ablation Hypothyroidism, postablative T4 FREE Routine 07/30/2021 16:21 EDT Status post radioactive iodine thyroid ablation Hypothyroidism, postablative CREATININE Routine 07/30/2021 16:21 EDT Supervision of high risk , antepartum PROTEIN/CREATININE RATIO, URINE Routine 07/30/2021 16:20 EDT Supervision of high risk , antepartum PREECLAMPTIC PROFILE Routine 07/30/2021 16:20 EDT Supervision of high risk , antepartum COMPLETE BLOOD COUNT Routine 07/30/2021 16:20 EDT Supervision of high risk , antepartum documented in this encounter Results * URIC ACID (07/30/2021 16:21 EDT) Uric Acid 5.6 2.2 - 7.7 mg/dL 07/30/2021 17:08 EDT [facility] Blood VENOUS BLOOD / Unknown Venipuncture / Unknown 07/30/2021 16:21 EDT 07/30/2021 16:35 EDT Jenny [place] Jimmie COLOR SPECIALIST CHEMISTRY & BLOOD GAS ORDERABLES Performing Organization Address [facility] Co de Phone Number [facility] [address] [place] [address] * CREATININE (07/30/2021 16:21 EDT) Creatinine 0.59 0.52 - 1.04 mg/dL 07/30/2021 17:08 EDT [facility] eGFR 127 >60 mL/min/1.73 m2 07/30/2021 17:08 EDT [facility] Blood VENOUS BLOOD / Unknown Venipuncture / Unknown 07/30/2021 16:21 EDT 07/30/2021 16:35 EDT Jenny [place] Tez COLOR SPECIALIST CHEMISTRY & BLOOD GAS ORDERABLES [facility] [address] [place] [address] * (ABNORMAL) BUN (07/30/2021 16:21 EDT) BUN 7(L) 10 - 26 mg/dL 07/30/2021 17:08 EDT [facility] Blood VENOUS BLOOD / Unknown Venipuncture / Unknown 07/30/2021 16:21 EDT 07/30/2021 16:35 EDT Jenny Samuel COLOR SPECIALIST CHEMISTRY & BLOOD GAS ORDERABLES Performing Organization Address [facility] Co de Phone Number [facility] [address] [place] [address] * ALT (07/30/2021 16:21 EDT) ALT 19 <35 U/L 07/30/2021 17:08 EDT [facility] Blood VENOUS BLOOD / Unknown Venipuncture / Unknown 07/30/2021 16:21 EDT 07/30/2021 16:35 EDT Jenny Samuel COLOR SPECIALIST CHEMISTRY & BLOOD GAS ORDERABLES Performing Organization Address [facility] Co de Phone Number [facility] [address] [place] [address] * AST (07/30/2021 16:21 EDT) AST 20 15 - 46 U/L 07/30/2021 17:08 EDT [facility] Blood VENOUS BLOOD / Unknown Venipuncture / Unknown 07/30/2021 16:21 EDT 07/30/2021 16:35 EDT Jenny Samuel COLOR SPECIALIST CHEMISTRY & BLOOD GAS ORDERABLES Performing Organization Address [facility] Co de Phone Number [facility] [address] [place] [address] * T4 FREE (07/30/2021 16:21 EDT) T4, Free 1.0 0.8 - 2.2 ng/dL 07/30/2021 17:27 EDT [facility] Blood VENOUS BLOOD / Unknown Venipuncture / Unknown 07/30/2021 16:21 EDT 07/30/2021 16:35 EDT Grazyna Franco V, DO CHEMISTRY & BLOOD GAS ORDERABLES Performing Organization Address [facility]/ZIP Co de Phone Number [facility] [address] [place] [address] * TSH (07/30/2021 16:21 EDT) TSH 1.63 0.47 - 4.68 mIU/L 07/30/2021 17:41 EDT [facility] Blood VENOUS BLOOD / Unknown Venipuncture / Unknown 07/30/2021 16:21 EDT 07/30/2021 16:35 EDT Narrative [facility] - 07/30/2021 17:41 EDT The results of this assay can be falsely lowered due to the consumption of Biotin. Grazyna Franco V, DO CHEMISTRY & BLOOD GAS ORDERABLES Performing Organization Address [facility] Co de Phone Number [facility] [address] [place] [address] * (ABNORMAL) COMPLETE BLOOD COUNT (07/30/2021 16:20 EDT) Pathologist [facility] WBC 7.06 4.00 - 12.40 K/cmm 07/30/2021 16:47 EDT [facility] RBC 4.04 3.86 - 5.04 M/cmm 07/30/2021 16:47 EDT [facility] Hemoglobin 11.9 11.6 - 15.2 gm/dL 07/30/2021 16:47 EDT [facility] HCT 35.6 34.9 - 44.4 % 07/30/2021 16:47 T [facility] MCV 88 81 - 98 fl 07/30/2021 16:47 T [facility] MCH 29.5 26.7 - 33.3 pg 07/30/2021 16:47 EDT [facility] MCHC 33.4 32.1 - 35.9 gm/dL 07/30/2021 16:47 T [facility] RDW-CV 14.9(H) <14.7 % 07/30/2021 16:47 EDT [facility] RDW-SD 47.3 <50.4 fl 07/30/2021 16:47 EDT [facility] PLT 297 141 - 377 K/cmm 07/30/2021 16:47 EDT [facility] MPV 10.9 9.5 - 12.7 fl 07/30/2021 16:47 EDT [facility] Blood VENOUS BLOOD / Unknown Venipuncture / Unknown 07/30/2021 16:20 EDT 07/30/2021 16:35 EDT Jenny Samuel COLOR SPECIALIST HEMATOLOGY & PF4 ORDERABLES Performing Organization Address [facility] Co de Phone Number [facility] [address] [place] [address] * (ABNORMAL) PROTEIN/CREATININE RATIO, URINE (07/30/2021 16:20 EDT) Total Protein, Urine 10 See Note mg/dL 07/30/2021 16:54 EDT [facility] Comment:Reference range not established. Creatinine, Urine 56.5 See Note mg/dL 07/30/2021 16:54 EDT [facility] Comment:Reference range not established. UPRO mg/mg Cr, Ur 0.18(H) <0.18 mg/mg Creatinine 07/30/2021 16:54 EDT [facility] Urine URINE SPECIMEN COLLECTION, CLEAN CATCH / Unknown Urine Collect / Unknown 07/30/2021 16:20 EDT 07/30/2021 16:33 EDT Jenny Samuel NP URINALYSIS ORDERA BLES Performing Organization Address [facility]/ZIP Co de Phone Number [facility] [address] [place] [address] documented in this encounter Visit Diagnoses Diagnosis Status post radioactive iodine thyroid ablation Other postprocedural status Hypothyroidism, postablative Other postablative hypothyroidism Supervision of high risk , antepartum documented in this encounter Care Teams Copper Miner Blasting Relationship Specialty Start Date End Date Ayla Solomon DO [facility] [place] [address] PCP - General General Surgery 04/12/21 documented as of this encounter
--- OUTSIDE RECORDS SUMMARY | 2023-12-04 20:14 | XMS_ITS | Encounter Summary ---
Author Organization [facility] Address [address] [place] [address] Care Team Providers Care Silk Trimmer Name Role Phone Juanito Ayla Keagan LACY Primary Care Provider [phone] Reason for Visit * Reason Onset Date Comments Depression 09/19/2021 Encounter Details Date Type Department Care Team (Late st Contact Info) Description 09/19/2021 Telephone [facility] Obstetrics & Midwifery - [facility] [address] [place], [place] [id number] Penelope Joseph RN Depression Social History Tobacco Use Types Packs/Day Years [...] in the Last Year Never true 11/07/2019 [place] Depression Scale Answer Date Recorded [place] Depression Scale Total 21 09/17/2021 The thought [...] Dispensed Refills Start Date End Da te sertraline (ZOLOFT) 25 mg tablet Take 1 Tablet by mouth daily. 30 Tablet 1 09/22/2021 10/02/2021 documented in this encounter Miscellaneous Notes * Addendum Note - Bethany Flanagan RN - 09/22/2021 1429 EDTAddended by: BETHANY FLANAGAN on: 09/22/2021 14:29 Modules accepted: Orders * Telephone Encounter - Bethany Flanagan RN - 09/22/2021 1427 EDT Pt states that she is interested in zoloft. [employer] in [employer]. Things are pretty much the same. Getting a bit more stressed with stuff going on with my oldest and her struggling to be in daycare. Rx sent as requested. Responded to pt via [employer]. * Telephone Encounter - Bethany Flanagan RN - 09/22/[address] Briscoe- I see a script for Zoloft 25mg from 2016. ??Please check back in with her and see ifthis is what she would like to start and I see that she has an appointment on the . ??It's veryimportant that we get her in to be seen. Attempted to call pt, but no answer. LM asking her to call back to check in. Will also send Mychartmessage. * Telephone Encounter - Penelope Joseph RN - 09/19/2021 0675 EDT Call transferred from the phone room-- patient calling back nursing after score of 21 on her [place] PP depression survey. Patient reports feeling overwhelmed, particularly at night, with her two children. Her older child,Jailyn (4 y/o), is having a hard time transitioning with a at home. Increase in tantrums andmood swings and is getting sent home from daycare frequently as a result. 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 Patient also notes difficulty with her , Luanne. Difficulty with reflux / vomiting and food allergy that they couldn't pinpoint-- she had to stop as a result and has had difficulty finding a formula that she will tolerate. Feels frustrated; Luanne not sleeping great overnight, but the past few nights has had some 4 hour stretches. Tiny is not always able to rest when the children are sleeping. Patient reports bouts of uncontrollable crying and feeling of overwhelm. Her boyfriend works at night so doesn't always have him around for hands-on help. Feels safe with her partner and is close with her mom. Patient reports a history of self-harm and has had some fleeting thoughts about self-harm and suicide since delivery but no plan and has not acted on these impulses. Reports that she will usually call her boyfriend or mom to help her calm down when this occurs. Does not have a counselor or therapist and declines one at this time. Declines SW referral at this time. Has previously been on lots ofmedications for anxiety and depression in the past and would like to re-start. Isn't sure what she was prescribed before that was helpful. Will route to provider for input; scheduled for PPV next week on 09/[address] Wilson. Patient contracts for safety currently; resources sent to patient via My Chart for Crisis Hotlines that are available . Will plan to have team follow up with patient early next week; patient denies any other needs at this time. documented in this encounter Plan of Treatment Not on file documented as of this encounter Goals Goal Patient Goal Type Associated Problems Recent Progress Patient-Stated? Author Weight Loss General Obesity, Class III, BMI 40-49.9 (morbid obesity) No Marva Hitchcock Note: Increased activity getting out doors with daughter documented as of this encounter Visit Diagnoses Not on filedocumented in this encounter Care Teams Silk Trimmer Relationship Specialty Start Date End Date Ayla Solomon DO [facility] [facility] [address] [place] [address] PCP - General General Surgery 04/12/21 documented as of this encounter
--- OUTSIDE RECORDS SUMMARY | 2023-12-04 20:14 | XMS_ITS | Encounter Summary ---
Author Organization [facility] Address [address] [place] [address] Care Team Providers Care Corporate Communications Intern Name Role Phone Juanito Aylaflorence Boogie DO Primary Care Provider [phone] Reason for Referral * (Routine/Next Available) - New Request Specialty Diagnoses / Procedures Referred By Eugene asencio Referred To Contact Diagnoses Supervision of other normal Procedures INDUCTION OF LABOR Braulio Scanlon MD [address] [place] [phone] Referral ID Status Reason Start Date Expiration Date V isits Requested Visits Authorized [id number] New Request 08/06/2021 1 1 Encounter Details Date Type Department Care Team (Late st Contact Info) Description 08/06/2021 Orders Only [facility] OBGYN Services - [address] [address] Braulio Scanlon MD [address] [place] [phone] Supervision of other normal (Primary Dx) Social History Tobacco Use Types Packs/Day Years [...] of this encounter Plan of Treatment Scheduled Orders Name Type Priority Associated Diagnoses Orde r Schedule INDUCTION OF LABOR OB Routine Supervision of other normal Ordered: 08/06/2021 documented as of this encounter Goals Goal Patient Goal Type Associated Problems Recent Progress Patient-Stated? Author Weight Loss General Obesity, Class III, BMI 40-49.9 (morbid obesity) No Marva Hitchcock Note: Increased activity getting out doors with daughter documented as of this encounter Visit Diagnoses Diagnosis Supervision of other normal - Primary documented in this encounter Care Teams Corporate Communications Intern Relationship Specialty Start Date End Date Ayla Solmoon DO [address] [place] [address] PCP - General General Surgery 04/12/21 documented as of this encounter
--- OUTSIDE RECORDS SUMMARY | 2023-12-04 20:14 | XMS_ITS | Encounter Summary ---
Author Organization [facility] Address [address] [place] [address] Care Team Providers Care Custom Shop Worker Name Role Phone Ayla Solomon DO Primary Care Provider [phone] Encounter Details Date Type Department Care Team (Late st Contact Info) Description 01/09/2022 Lab Requisition [facility] Pathology & Laboratory Medicine - [facility] [address] [place] [address] Outr Resulting Lab, Provider Social History Tobacco [...] in the Last Year Never true 11/07/2019 [place] Depression Scale Answer Date Recorded [place] Depression Scale Total 21 09/17/2021 The thought [...] Procedure Name Priority Date/Time Associated Diagnosis Comments T3 FREE Routine 01/09/2022 8:44 EST documented in this encounter Results * (ABNORMAL) T3 FREE (01/09/2022 8:44 EST) T3, Free 2.3(L) 2.8 - 5.3 pg/mL 01/09/2022 18:14 EST [facility] Blood VENOUS BLOOD / Unknown 01/09/2022 8:44 EST 01/09/2022 17:25 EST Provider Outr Resulting Lab CHEMISTRY & BLOOD GAS ORDERABLES [facility] [address] [place] [address] documented in this encounter Visit Diagnoses Not on filedocumented in this encounter Care Teams Custom Shop Worker Relationship Specialty Start Date End Date Ayla Solomon DO [address] [place] [address] PCP - General General Surgery 04/12/21 documented as of this encounter
--- OUTSIDE RECORDS SUMMARY | 2023-12-04 20:14 | XMS_ITS | Encounter Summary ---
Author Organization [facility] Address [address] [place] [address] Care Team Providers Care Purchasing Manager/Sales Name Role Phone Juanito Ayla Keagan LACY Primary Care Provider [phone] Encounter Details Date Type Department Care Team (Late st Contact Info) Description 02/16/2022 Orders Only [facility] Endocrinology - [facility] [address] [place], [place] [phone] Carlos Nuñez DO [address] [facility] [address] [place] [address] Social History Tobacco Use Types Packs/Day Years [...] in the Last Year Never true 11/07/2019 [place] Depression Scale Answer Date Recorded [place] Depression Scale Total 21 09/17/2021 The thought [...] on filedocumented in this encounter Care Teams Purchasing Manager/Sales Relationship Specialty Start Date End Date Ayla Solomon DO [facility] [place] [address] PCP - General General Surgery 04/12/21 documented as of this encounter
--- OUTSIDE RECORDS SUMMARY | 2023-12-04 20:14 | XMS_ITS | Encounter Summary ---
Author Organization [facility] Address [address] [place] [address] Care Team Providers Care Telephone Solicitor Supervisor Name Role Phone Ayla Solomon DO Primary Care Provider [phone] Reason for Visit * Reason Comments Non-stress Test Encounter Details Date Type Department Care Team (Late st Contact Info) Description 07/30/2021 15:00 EDT Office Visit [facility] Obstetrics & Midwifery - [facility] [address] [place], [place] [phone] Insulin controlled gestational diabetes mellitus (GDM) in third trimester (Primary Dx) Social History Tobacco Use Types [...] Yes 05/05/2019 documented as of this encounter Progress Notes * Pawan Ernandez MD - 07/30/2021 1500 EDT NST Report Baseline Heart Rate: 120 Accelerations: present Movement: present Decelerations: absent Contractions: absent Interpretation: reactive Pawan Ernandez MD 07/30/2021 16:18 documented in this encounter Plan of Treatment Not on file documented as of this encounter Goals Goal Patient Goal Type Associated Problems Recent Progress Patient-Stated? Author Weight Loss General Obesity, Class III, BMI 40-49.9 (morbid obesity) No Marva Hitchcock Note: Increased activity getting out doors with daughter documented as of this encounter Visit Diagnoses Diagnosis Insulin controlled gestational diabetes mellitus (GDM) in third trimester- Primary documented in this encounter Care Teams Telephone Solicitor Supervisor Relationship Specialty Start Date End Date Ayla Solomon DO [facility] [facility] [address] [place] [address] PCP - General General Surgery 04/12/21 documented as of this encounter
--- OUTSIDE RECORDS SUMMARY | 2023-12-04 20:14 | XMS_ITS | Encounter Summary ---
Author Organization [facility] Address [address] [place] [address] Care Team Providers Care Forensic Artist Name Role Phone Juanito Ayla Keagan LACY Primary Care Provider Reason for Visit * Reason Comments Non-stress Test Encounter Details Date Type Department Care Team (Late st Contact Info) Description 08/06/2021 10:00 EDT Office Visit [facility] Obstetrics & Midwifery - [facility] [address] [place], [place] [phone] Obesity, Class III, BMI 40-49.9 (morbid obesity) (HCC) (HCC-CMS) (Primary Dx); Insulin controlled gestational diabetes mellitus (GDM) during , antepartum Social History Tobacco Use Types [...] Sign Reading Time Taken Comments Blood Pressure 153/100 08/06/2021 1007 EDT forear m; better fit Pulse - - Temperature - - Respiratory Rate - - Oxygen Saturation - - Inhaled Oxygen Concentration - - Weight - - Height - - Body Mass Index - - documented in this encounter Functional Status Functional [...] as of this encounter Progress Notes * Itzel Guerrero MD - 08/06/2021 1000 EDT NST Report Baseline Heart Rate: 125 Accelerations: present Movement: present Decelerations: absent Contractions: absent Interpretation: reactive Itzel Guerrero MD 08/06/2021 11:12 documented in this encounter Plan of Treatment Not on file documented as of this encounter Goals Goal Patient Goal Type Associated Problems Recent Progress Patient-Stated? Author Weight Loss General Obesity, Class III, BMI 40-49.9 (morbid obesity) No Marva Hitchcock Note: Increased activity getting out doors with daughter documented as of this encounter Visit Diagnoses Diagnosis Obesity, Class III, BMI 40-49.9 (morbid obesity) ([facility])- Primary Morbid obesity Insulin controlled gestational diabetes mellitus (GDM) during , antepartum documented in this encounter Care Teams Forensic Artist Relationship Specialty Start Date End Date Ayla Solomon DO [address] [place] [address] PCP - General General Surgery 04/12/21 documented as of this encounter
--- OUTSIDE RECORDS SUMMARY | 2023-12-04 20:14 | XMS_ITS | Encounter Summary ---
Author Organization [facility] Address [address] [place] [address] Care Team Providers Care Business Trainer Name Role Phone Juanito Aylaflorence Boogie DO Primary Care Provider [phone] Reason for Visit * Reason Onset Date Comments Blood Glucose Review 07/21/2021 Encounter Details Date Type Department Care Team (Late st Contact Info) Description 07/21/2021 Telephone [facility] Obstetrics & Midwifery - [facility] [address] [place], [place] [phone] Landon Joseph RN Blood Glucose Review Social History Tobacco Use Types Packs/Day Years [...] Yes 05/05/2019 documented as of this encounter Miscellaneous Notes * Telephone Encounter - Landon Joseph RN - 07/21/2021 0195 EDT Blood sugars received via My Chart from Tiny ([id number]) who is currently taking 15 units of NPH at bedtime and 3 units of Novolog with breakfast and lunch. Blood glucose log from 07/17-07/20: 0 / 4 Fasting >/= 95 0 / 3 2hr PP Breakfast >/= 120 1 / 4 2hr PP Lunch >/= 120 2 / 4 2hr PP Dinner >/= 120 Reviewed by MD Hunt who recommends no changes to patient's insulin regimen. Replied to patient's My Chart msg with MD advice. Hard copy of blood sugar log sent to [employer]. LANDON JOSEPH RN 07/21/2021 14:23 documented in this encounter Plan of Treatment Not on file documented as of this encounter Goals Goal Patient Goal Type Associated Problems Recent Progress Patient-Stated? Author Weight Loss General Obesity, Class III, BMI 40-49.9 (morbid obesity) No Marva Hitchcock Note: Increased activity getting out doors with daughter documented as of this encounter Visit Diagnoses Not on filedocumented in this encounter Additional Health Concerns Infection Onset Date Last Indicated Resolved Time COVID-19 07/14/2021 07/14/2021 07/25/2021 22:1 6 EDT documented as of this encounter Care Teams Business Trainer Relationship Specialty Start Date End Date Ayla Solomon DO [address] [place] [address] PCP - General General Surgery 04/12/21 documented as of this encounter
--- OUTSIDE RECORDS SUMMARY | 2023-12-04 20:14 | XMS_ITS | Encounter Summary ---
Author Organization [facility] Address [address] [place] [address] Care Team Providers Care Surveillance Systems Analyst Name Role Phone Juanito Ayla Keagan LACY Primary Care Provider Reason for Visit * Reason Onset Date Comments Abdominal Pain 08/12/2021 Encounter Details Date Type Department Care Team (Late st Contact Info) Description 08/12/2021 Telephone [facility] OBGYN Services - [facility] [address] [place], [place] [phone] Jenny Samuel, PARI [address] [facility] [place] [phone] Abdominal Pain Social History Tobacco Use Types Packs/Day Years [...] encounter Miscellaneous Notes * Telephone Encounter - Alena García RN - 08/12/2021 1623 EDT Patient returned call to Chiquita Rice and will come tomorrow. Chiquita will schedule. * Telephone Encounter - Alena García RN - 08/12/2021 1616 EDT Discussed with Chiquita Rice who states that patient may come at 2:30PM tomorrow. TC to patient, no answer, LVM asking patient to call and reviewing how to contact on-call provider for questions or concerns overnight. * Telephone Encounter - Alena García RN - 08/12/2021 1208 EDT TC to patient who reports pain in her lower back and whole right side, the front and the back, since delivery on 08/07. She rates the pain 10/10 at night and in the morning, but a 6-7/10 during the day. She states that she is taking Tylenol 650mg and Motrin 400mg together every 6 hours. Patient denies redness, swelling, or fever, but states that she is wondering whether she has an infection because her discharge more orange, like there is yellow in it, and it smells off. She states that she is still having some light bleeding. She denies vomiting but reports nausea here and there. Patient states that she has tried warm baths and cool compresses and neither have helped. Patient is aware that this RN will review with MD and return her call. * Telephone Encounter - Felicia Morley - 08/12/2021 4693 EDT Pt calling in to report that since she gave on 08/07 she has been experiencing really bad painsin her back and right side abdomen. She would like a call back at [phone] documented in this encounter Plan of Treatment Not on file documented as of this encounter Goals Goal Patient Goal Type Associated Problems Recent Progress Patient-Stated? Author Weight Loss General Obesity, Class III, BMI 40-49.9 (morbid obesity) No Marav Hitchcock Note: Increased activity getting out doors with daughter documented as of this encounter Visit Diagnoses Not on filedocumented in this encounter Care Teams Surveillance Systems Analyst Relationship Specialty Start Date End Date Ayla Solomon DO [facility] [address] [place] [address] PCP - General General Surgery 04/12/21 documented as of this encounter
--- OUTSIDE RECORDS SUMMARY | 2023-12-04 20:14 | XMS_ITS | Encounter Summary ---
Author Organization [facility] Address [address] [place] [address] Care Team Providers Care Ribbon Sweatband Operator Name Role Phone Juanito Aylaflorence Boogie DO Primary Care Provider [phone] Reason for Visit * Reason Comments Follow-up Zoloft Encounter Details Date Type Department Care Team (Late st Contact Info) Description 10/02/2021 13:30 EDT Telemedicine [facility] OBGYN Services - [facility] [address] [place], [place] [phone] Jenny Samuel, PARI [address] [facility] [place] [phone] depression (Primary Dx) Social History Tobacco Use Types [...] in the Last Year Never true 11/07/2019 [place] Depression Scale Answer Date Recorded [place] Depression Scale Total 21 09/17/2021 The thought [...] Start Date End Da te sertraline (ZOLOFT) 50 mg tablet Take 1 Tablet by mouth daily. 30 Tablet 1 10/02/2021 documented in this encounter Progress Notes * Jenny Samuel, [employer]Y [employer] - 10/02/2021 1330 EDT The concept of ???Telemedicine?? has been described [...] in patient???s medical or mental health care. Patient understands that they maybe responsible for copays, deductible or coinsurance for this service. Phone visit CC: Follow-up (Zoloft) S: Pt presents for Zoloft F/U. Has been taking 25 mg x 1 week. Notices some improvement. States hasalso gotten home more organized which has helped mood. Occ thoughts of harming self when frustratedwith the baby. Denies thoughts of harming baby or others. Denies plans for how to harm self, it's just a vague idea. Requesting dose increase. Not currently seeing a counselor Past Medical History: Diagnosis Date ??? ADD (attention deficit disorder) ??? Asthma, exercise induced ??? Autoimmune disorder (HCC-CMS) (HCC) Grave's disease ??? Depression was taking meds (can't remember what), stopped in 07/2016, no counselor ??? Gestational hypertension, third trimester 08/06/2021 ??? Herpes simplex virus (HSV) infection ??? Insulin controlled gestational diabetes mellitus (GDM) during 06/16/2021 ??? Mood disorder (HCC-CMS) (HCC) ??? Thyroid disease Past Surgical History: Procedure Laterality Date ??? CHOLECYSTECTOMY ??? LIPOMA RESECTION 2017 on abdomen Current Outpatient Medications Medication ??? acetaminophen (TYLENOL) 500 mg tablet ??? albuterol 90 mcg/actuation inhaler ??? calcium carbonate (TUMS) 200 mg calcium (500 mg) tablet,chewable ??? doxylamine (UNISOM, DOXYLAMINE,) 25 mg tablet tablet ??? ibuprofen (MOTRIN) 800 mg tablet ??? insulin pen needles 31G x 07/14 ??? levothyroxine (SYNTHROID) 200 mcg tablet ??? levothyroxine (SYNTHROID) 50 mcg tablet ??? polyethylene glycol 3350 (MIRALAX) 17 gram packet ??? no122/iron/folic acid ( MULTI ORAL) ??? sertraline (ZOLOFT) 25 mg tablet ??? valACYclovir (VALTREX) 500 mg tablet Current Facility-Administered Medications Medication Route Frequency ??? etonogestreL (NEXPLANON) subdermal implant 68 mg subdermal CONTINUOUS IUD/LARC O: LMP 10/24/2020 Review of Systems Constitutional: Negative. Cardiovascular: Negative. Genitourinary: Negative. Skin: Negative. Neurological: Negative. Psychiatric/Behavioral: Positive for depression. Negative for hallucinations, memory loss, substance abuse and suicidal ideas. The patient is not nervous/anxious and does not have insomnia. Physical Exam No orders of the defined types were placed in this encounter. A/P: Tiny Cline is a 26 y.o. who presents for: Zoloft increased to 50 mg every day. Reviewed strict instructions for pt to go to ED if experiences thoughts of harming self or others, especiallyif starts to develop a plan. Recommended counselor, pt declines stating that she doesn't have time.F/U 2 weeks for telehealth check in or sooner if sx worsen Jenny Samuel NP Approximately 15 minutes spent on the phone discussing the issues above documented in this encounter Plan of Treatment Not on file documented as of this encounter Goals Goal Patient Goal Type Associated Problems Recent Progress Patient-Stated? Author Weight Loss General Obesity, Class III, BMI 40-49.9 (morbid obesity) No Marva Hitchcock Note: Increased activity getting out doors with daughter documented as of this encounter Visit Diagnoses Diagnosis depression- Primary Mental disorders of mother, documented in this encounter Discontinued Medications Medication Sig Discontinue Reason Start Date End Da te sertraline (ZOLOFT) 25 mg tablet Take 1 Tablet by mouth daily. Dose adjustment 09/22/2021 10/02/2021 documented as of this encounter Care Teams Ribbon Sweatband Operator Relationship Specialty Start Date End Date Ayla Solomon DO [facility] [place] [address] PCP - General General Surgery 04/12/21 documented as of this encounter
--- OUTSIDE RECORDS SUMMARY | 2023-12-04 20:14 | XMS_ITS | Encounter Summary ---
Author Organization [facility] Address [address] [place] [address] Care Team Providers Care Manager Fine Name Role Phone Juanito Ayla Keagan LACY Primary Care Provider Reason for Visit * Reason Onset Date Comments Post- Care 09/18/2021 Encounter Details Date Type Department Care Team (Late st Contact Info) Description 09/18/2021 Telephone [facility] [address] [place], [place] [phone] Alena García RN Post- Care Social History Tobacco Use Types Packs/Day Years [...] in the Last Year Never true 11/07/2019 [place] Depression Scale Answer Date Recorded [place] Depression Scale Total 21 09/17/2021 The thought [...] encounter Miscellaneous Notes * Telephone Encounter - Bethany Flanagan RN - 09/19/2021 0906 EDT 2nd attempt to contact pt to discuss EPDS form that she completed via [employer]. No answer from pt. LM asking her to call back at her earliest convenience to discuss. Reiterated importance of calling the office. * Telephone Encounter - Alena García RN - 09/18/2021 0922 EDT Images from the original note were not included. EPDS results available in flowsheets as follows: [employer] message also sent. Per chart review, patient was most recently active in [employer] on 09/17. * Telephone Encounter - Alena García RN - 09/18/2021 0916 EDT Notice received by [employer] that patient is high risk for PPD; per chart review, EPDS score on 09/17/21 of 21. Patient has PP visit with Dr. Wilson on 09/26/21. TC to patient, no answer, LVM asking her to call. Intending to discuss EPDS and offer support. documented in this encounter Plan of Treatment Not on file documented as of this encounter Goals Goal Patient Goal Type Associated Problems Recent Progress Patient-Stated? Author Weight Loss General Obesity, Class III, BMI 40-49.9 (morbid obesity) No Marva Hitchcock Note: Increased activity getting out doors with daughter documented as of this encounter Visit Diagnoses Not on filedocumented in this encounter Care Teams Manager Fine Relationship Specialty Start Date End Date Ayla Solomon DO [facility] [facility] [address] [place] [address] PCP - General General Surgery 04/12/21 documented as of this encounter
--- OUTSIDE RECORDS SUMMARY | 2023-12-04 20:14 | XMS_ITS | Encounter Summary ---
Author Organization [facility] Address [address] [place] [address] Care Team Providers Care Senior Program Planner Name Role Phone Juanito Ayla Keagan LACY Primary Care Provider [phone] Reason for Visit * Reason Comments Post- Care 6w ppv and Nexplanon insert Encounter Details Date Type Department Care Team (Late st Contact Info) Description 2021 8:15 EDT Visit [facility] OBGYN Services - [address] [phone] Marva Wilson MD [address] [place] [address], [address] [place] [address] care following vaginal delivery (Primary Dx); Nexplanon insertion; Post depression Social History Tobacco Use Types Packs/Day Years [...] in the Last Year Never true 11/07/2019 [place] Depression Scale Answer Date Recorded [place] Depression Scale Total 21 09/17/2021 The thought [...] Blood Pressure 142/97 2021 0828 EDT Pulse - - Temperature - - Respiratory Rate - - Oxygen Saturation - - Inhaled Oxygen Concentration - - Weight 126.7 kg (279 lb 6.4 oz) 2021 0828 EDT Height - - Body Mass Index 51.1 08/07/2021 0500 EDT documented in this encounter Functional Status [...] as of this encounter Progress Notes * Marva Wilson MD - 2021 0815 EDT Depression evaluation and PPV Started Zoloft 2 days ago. Feeling OK. Mom is recovering from COVID and will soon be able to help more. Getting services for 2 yo who has symptoms concerning for autism spectrum disorder. 15 minutes discussion of treatment options. Declines counseling, would like PP telehealth in 4 weeks. Blood pressure (!) 142/97, weight (!) 126.7 kg (279 lb 6.4 oz), last menstrual period 10/24/2020, currently . NAD Abd: NT, ND no uterine tenderness. Informed consent signed by patient. Patient is right handed. Medial epicondyle of elbow palpated, tract marked starting 8 cm above Area cleansed with alcohol swab, tract injected with 5 cc 1% lidocaine without epinephrine Area prepped with betadine x 3 Anesthesia confirmed Using sterile technique, Nexplanon introducer removed from packaging and checked. Introducer inserted beneath skin at inferior aspect of tract and introduced fully beneath skin to hub Device deployed and introducer removed Device palpated by provider and patient Injection site covered with steri-strips, then bandaged with kerlex. Patient tolerated procedure well. Marva Wilson MD 2021 8:48 documented in this encounter Plan of Treatment Not on file documented as of this encounter Goals Goal Patient Goal Type Associated Problems Recent Progress Patient-Stated? Author Weight Loss General Obesity, Class III, BMI 40-49.9 (morbid obesity) No Marva Hitchcock Note: Increased activity getting out doors with daughter documented as of this encounter Visit Diagnoses Diagnosis care following vaginal delivery- Primary Routine follow-up Nexplanon insertion Insertion of implantable subdermal contraceptive Post depression Mental disorders of mother, documented in this encounter Administered Medications Active Administered Medications - up to 3 most recent administrations Medication Order MAR Action Action Date Dose Rate Site etonogestreL (NEXPLANON) subdermal implant 68 mg 68 mg, subdermal, CONTINUOUS IUD/LARC, Starting on Wed09/26/21 at 0915, Until Wed09/25/24 at 0914 Given 2021 8:56 EDT 68 mg documented in this encounter Orders Medications Ordered That Alonso ht Not Have Been Administered Count Last Ordered Date First Ordered Date etonogestreL (NEXPLANON) sub dermal implant 68 mg 1 2021 documented in this encounter Care Teams Senior Program Planner Relationship Specialty Start Date End Date Ayla Solomon DO [facility] [facility] [address] [place] [address] PCP - General General Surgery 04/12/21 documented as of this encounter
--- OUTSIDE RECORDS SUMMARY | 2023-12-04 20:14 | XMS_ITS | Encounter Summary ---
Author Organization [facility] Address [address] [place] [address] Care Team Providers Care Production Tester Name Role Phone Juanito Ayla Keagan LACY Primary Care Provider [phone] Reason for Visit * Reason Comments Routine Visit Encounter Details Date Type Department Care Team (Late st Contact Info) Description 07/30/2021 14:00 EDT Routine [facility] OBGYN Services - [facility] [address] [place], [place] [phone] Julio Cesar Walsh, PARI [address] [facility], [facility] [address] [place] [phone] GA: 38w1d Social History Tobacco Use Types Packs/Day Years [...] Sign Reading Time Taken Comments Blood Pressure 137/92 07/30/2021 1408 EDT Pulse - - Temperature - - Respiratory Rate - - Oxygen Saturation - - Inhaled Oxygen Concentration - - Weight 134.5 kg (296 lb 9.6 oz) 07/30/2021 1408 EDT Height - - Body Mass Index 53.22 06/09/2021 1314 EDT documented in this encounter [...] as of this encounter Progress Notes * Julio Cesar Walsh NP - 07/30/2021 1400 EDT CC: 25 y.o. @ 38w1d here for antepartum visit S: Doing well, ready to be done. Denies contractions, LOF, VB. Good FM. O: Vitals: BP: (!) 137/92 Weight : (!) 134.5 kg (296 lb 9.6 oz) Heart Rate: 150 Movement: Present Dilation: 1 Effacement (%): 20 Station: -3 A/P: 25 y.o. @ 38w1d Problem list reviewed and updated Supervision of other normal Recovered from COVID, has testing scheduled. Will schedule IOL for 08/05. Reviewed procedures and methods. GBS collected. BP elevated, pt denies TRIVEDI, visual changes, epigastric pain, edema, chest pain, or SOB. Pre-e labs and urine ordered. Pt also requesting thyroid check stating she is due for other provider. Pre-e s/s with strict return precautions reviewed. Going for BPP/NST after visit today Insulin controlled gestational diabetes mellitus (GDM) during MFM continues to monitor. WNL aside from 1 value of 164 after eating pretzels per pt RTC 1 week JULIO CESAR WALSH NP documented in this encounter Miscellaneous Notes * Assessment & Plan Note - Julio Cesar Walsh NP - 07/30/2021 1449 EDTAssociated Problem(s): Insulin controlled gestational diabetes mellitus (GDM) during MFM continues to monitor. WNL aside from 1 value of 164 after eating pretzels per pt * Assessment & Plan Note - Julio Cesar Walsh NP - 07/30/2021 1445 EDTAssociated Problem(s): Supervision of other normal Recovered from COVID, has testing scheduled. Will schedule IOL for 08/05. Reviewed procedures and methods. GBS collected. BP elevated, pt denies TRIVEDI, visual changes, epigastric pain, edema, chest pain, or SOB. Pre-e labs and urine ordered. Pt also requesting thyroid check stating she is due for other provider. Pre-e s/s with strict return precautions reviewed. Going for BPP/NST after visit today documented in this encounter Plan of Treatment Not on file documented as of this encounter Goals Goal Patient Goal Type Associated Problems Recent Progress Patient-Stated? Author Weight Loss General Obesity, Class III, BMI 40-49.9 (morbid obesity) No Marva Hitchcock Note: Increased activity getting out doors with daughter documented as of this encounter Procedures Procedure Name Priority Date/Time Associated Diagnosis Comments GROUP B STREP PCR Routine 07/30/2021 14: 52 EDT Supervision of high risk , antepartum documented in this encounter Results * (ABNORMAL) PROTEIN/CREATININE RATIO, URINE (07/30/2021 16:20 EDT) Total Protein, Urine 10 See Note mg/dL 07/30/2021 16:54 EDT [facility] Comment:Reference range not established. Creatinine, Urine 56.5 See Note mg/dL 07/30/2021 16:54 EDT [facility] Comment:Reference range not established. UPRO mg/mg Cr, Ur 0.18(H) <0.18 mg/mg Creatinine 07/30/2021 16:54 EDT [facility] Urine URINE SPECIMEN COLLECTION, CLEAN CATCH / Unknown Urine Collect / Unknown 07/30/2021 16:20 EDT 07/30/2021 16:33 EDT Julio Cesar Walsh SWEATBAND SEPARATOR URINALYSIS ORDERA BLES Performing Organization Address City/[facility] Co de Phone Number [facility] [address] [place] [address] * GROUP B STREP PCR (07/30/2021 14:52 EDT) Group B Strep PCR Negative Negative 07/31/2021 12:19 EDT [facility] Swab POOLED SPECIMEN FROM VAGINAL INTROITUS AND RECTAL SWAB / Unknown Swab / Unknown 07/30/2021 14:52 EDT 07/30/2021 15:21 EDT Julio Cesar Walsh NP MICROBIOLOGY - GE NERAL ORDERABLES Performing Organization Address City/[facility]/ZIP Co de Phone Number [facility] [address] [place] [address] documented in this encounter Visit Diagnoses Diagnosis Supervision of high risk , antepartum- Primary documented in this encounter Orders Lab Orders Without Results Count Last Ordered D ate First Ordered Date T4 FREE 1 07/30/2021 TSH 1 07/30/2021 documented in this encounter Care Teams Production Tester Relationship Specialty Start Date End Date Ayla Solomon DO [address] [place] [address] [address] [place] [id number] PCP - General General Surgery 04/12/21 documented as of this encounter
--- OUTSIDE RECORDS SUMMARY | 2023-12-04 20:14 | XMS_ITS | Encounter Summary ---
Author Organization [facility] Address [address] [place] [address] Care Team Providers Care Health Information Assistant Name Role Phone Juanito Ayla Keagan LACY Primary Care Provider [phone] Reason for Visit * Reason Comments Post- Care c/o pain Encounter Details Date Type Department Care Team (Late st Contact Info) Description 08/13/2021 14:30 EDT Visit [facility] OBGYN Services - [address] [phone] Braulio Scanlon MD [address] [facility], [address] [place] [address] Pelvic pain (Primary Dx); Endometritis Social History Tobacco Use Types Packs/Day Years [...] Sign Reading Time Taken Comments Blood Pressure 142/96 08/13/2021 1431 EDT Pulse - - Temperature - - [...] Dispensed Refills Start Date End Da te amoxicillin-clavulanate (AUGMENTIN) 875-125 mg per tablet Take 1 Tablet by mouth every 12 hours for 7 days. 14 Tablet 08/13/2021 08/20/2021 documented in this encounter Progress Notes * Braulio Scanlon MD - 08/13/2021 1430 EDT CC: PPV, abdominal pain S: Since delivery, continues to have crampy abdominal pain, like labor pains, but not going away. At worst is 10/10, worse when moving and bending. Mostly right sided front abdominal. O:BP (!) 142/96 (BP Cuff Location: Right arm, BP Patient Position: Sitting, BP Cuff Sizes: Adult, long) LMP 10/24/2020 Yes GEN: NAD ABD: soft, no flank pain, pain in the RUQ without rebound or guarding, reproduced on bimanual exam Clari Bales LPN as information analyst : Speculum exam w/ moderate lochia, no odor, no discharge noted. Bimanual exam without cervical motion tenderness, but present is lower abdominal pain over uterus. EXT: WWP Endometritis 25yo 1wk PP s/p with abdominal tenderness Differential includes UTI and endometritis. Abdominal tenderness mild and could correlate with normal PP recovery, no CMT, normal lochia without notable discharge or odor. Discussed reasonable to consider mild PP endometritis and treat with PO abx, versus expectant management, continue pain controland monitoring. Patient elects to proceed with PO abx, which I have prescribed. Will draw urine sample before leaving. Patient to call if symptoms not improving within 24 hours. Braulio Scanlon MD, 08/13/2021 15:12 * Clari Bales LPN - 08/13/2021 1430 EDT Results for orders placed or performed in visit on 08/13/21 POCT URINE DIPSTICK, CLINITEK Result Value Ref Range Color, UA Yellow Yellow Clarity, UA Clear Clear Glucose, UA Negative Negative Bilirubin, UA Negative Negative Ketones, UA Negative Negative Specific [place], Urine 1.020 1.001 - 1.035 Blood, UA 3+ (A) Negative pH, UA 7.0 4.6 - 8.0 Protein, UA Negative Negative Urobilinogen, UA 0.2 0.2 - 1.0 mg/dL Nitrite, UA Negative Negative Leuk Esterase Trace (A) Negative HN LAB COMMENT (CLINITEK, UR) Test performed at [facility] documented in this encounter Miscellaneous Notes * Assessment & Plan Note - Braulio Scanlon MD - 08/13/2021 1510 EDT Associated Problem(s): Endometritis 25yo 1wk PP s/p with abdominal tenderness Differential includes UTI and endometritis. Abdominal tenderness mild and could correlate with normal PP recovery, no CMT, normal lochia without notable discharge or odor. Discussed reasonable to consider mild PP endometritis and treat with PO abx, versus expectant management, continue pain controland monitoring. Patient elects to proceed with PO abx, which I have prescribed. Will draw urine sample before leaving. Patient to call if symptoms not improving within 24 hours. documented in this encounter Plan of Treatment Not on file documented as of this encounter Goals Goal Patient Goal Type Associated Problems Recent Progress Patient-Stated? Author Weight Loss General Obesity, Class III, BMI 40-49.9 (morbid obesity) No Marva Hitchcock Note: Increased activity getting out doors with daughter documented as of this encounter Procedures Procedure Name Priority Date/Time Associated Diagnosis Comments BACTERIAL CULTURE, URINE Routine 08/13/2021 15:32 EDT Pelvic pain POCT URINE DIPSTICK, CLINITEK Routine 08/13/2021 15:15 EDT Pelvic pain POCT CSN BARCODE URINE DIPSTICK Routine 08/13/2021 14:54 EDT Pelvic pain POCT URINE CLINITEK (DIPSTICK) - DOES NOT REFLEX Routine 08/13/2021 14:54 EDT Pelvic pain documented in this encounter Results * BACTERIAL CULTURE, URINE (08/13/2021 15:32 EDT) Organism ID Less than 10,000 CFU/ml usual urogenital santi. 08/14/2021 12:21 EDT [facility] Urine URINE SPECIMEN COLLECTION, CLEAN CATCH / Unknown Urine Collect / Unknown 08/13/2021 15:32 EDT 08/13/2021 15:54 EDT Braulio Scanlon MD MICROBIOLOGY - GEN ERAL ORDERABLES [facility] [address] [place] [address] * (ABNORMAL) POCT URINE DIPSTICK, CLINITEK (08/13/2021 15:15 EDT) Color, UA Yellow Yellow 08/13/2021 15:17 [facility] Clarity, UA Clear Clear 08/13/2021 15:17 [facility] Glucose, UA Negative Negative 08/13/2021 15:17 [facility] Bilirubin, UA Negative Negative 08/13/2021 15:17 [facility] Ketones, UA Negative Negative 08/13/2021 15:17 [facility] Specific [place], Urine 1.020 1.001 - 1.035 08/13/2021 15:17 [facility] Blood, UA 3+(A) Negative 08/13/2021 15:17 [facility] pH, UA 7.0 4.6 - 8.0 08/13/2021 15:17 [facility] Protein, UA Negative Negative 08/13/2021 15:17 [facility] Urobilinogen, UA 0.2 0.2 - 1.0 mg/dL 08/13/2021 15:17 [facility] Nitrite, UA Negative Negative 08/13/2021 15:17 [facility] Leuk Esterase Trace(A) Negative 08/13/2021 15:17 [facility] HN LAB COMMENT (CLINITEK, UR) Test performed at [facility] 08/13/2021 15:17 [facility] Urine URINE SPECIMEN COLLECTION, CLEAN CATCH / Unknown 08/13/2021 15:15 EDT 08/13/2021 15:17 EDT Braulio Scanlon MD POINT OF CARE TEST ORDERABLES [facility] [address] [place] [address] * POCT CSN BARCODE URINE DIPSTICK (08/13/2021 14:54 EDT) Urine URINE SPECIMEN COLLECTION, CLEAN CATCH / Unknown 08/13/2021 14:54 EDT 08/13/2021 14:54 EDT Braulio Scanlon MD LAB INFO SERVICE A ND SUPPORT & PHONE RESULT [facility] [address] [place] [address] documented in this encounter Visit Diagnoses Diagnosis Pelvic pain- Primary Endometritis Unspecified inflammatory disease of uterus documented in this encounter Care Teams Health Information Assistant Relationship Specialty Start Date End Date Ayla Solomon DO [address] [facility] [address] [place] [address] PCP - General General Surgery 04/12/21 documented as of this encounter
--- OUTSIDE RECORDS SUMMARY | 2023-12-04 20:14 | XMS_ITS | Encounter Summary ---
Author Organization [facility] Address [address] [place] [address] Care Team Providers Care Planer Operator Name Role Phone Ayla Solomon DO Primary Care Provider [phone] Reason for Referral * MANAGER DATA (Routine/Next Available) - Order Cancelled Specialty Diagnoses / Procedures Referred By Eugene asencio Referred To Contact Diagnoses Encounter for supervision of other normal in second trimester Procedures US OB BIOPHYSICAL PROFILE WITH NON STRESS Braulio Scanlon MD [address] [address] LONG TERM Referral ID Status Reason Start Date Expiration Date V isits Requested Visits Authorized [id number] Order Cancelled 05/23/2021 12 12 Reason for Visit * MANAGER DATA (Routine/Next Available) - Order Cancelled Specialty Diagnoses / Procedures Referred By Eugene asencio Referred To Contact Diagnoses Encounter for supervision of other normal in second trimester Procedures US OB BIOPHYSICAL PROFILE WITH NON STRESS Braulio Scanlon MD [address] [address] LONG TERM Referral ID Status Reason Start Date Expiration Date V isits Requested Visits Authorized [id number] Order Cancelled 05/23/2021 12 12 Encounter Details Date Type Department Care Team (Latest Contact Info) Description 07/30/2021 14:05 EDT - 07/30/2021 23:59 EDT Hospital Encounter [facility] Obstetrics Services - [address] [address] Encounter for supervision of other normal in second trimester Discharge Disposition: Home or Self Care Social History Tobacco Use Types Packs/Day [...] Yes 05/05/2019 documented as of this encounter Medications at Time of Discharge Medication Sig Dispensed Refills Start Date End Date acetaminophen (TYLENOL) 500 mg tablet Take 2 Tablets by mouth every 8 hours as needed for Pain. 08/08/2021 albuterol 90 mcg/actuation inhalerIndications:Mild intermittent asthma without complication Inhale 2 Puffs as directed every 4 hours as needed for Wheezing. 1 Inhaler 11 09/13/2019 calcium carbonate (TUMS) 200 mg calcium (500 mg) tablet,chewable Take 2 Tablets by mouth every 2 hours as needed for Heartburn or Indigestion. 08/08/2021 doxylamine (UNISOM, DOXYLAMINE,) 25 mg tablet tablet Take 1 Tablet by mouth at bedtime as needed for Nausea. 28 Tablet 3 07/01/2021 ibuprofen (MOTRIN) 800 mg tablet Take 1 Tablet by mouth every 8 hours as needed for Pain. 08/08/2021 insulin pen needles 31G x 5/16 BD UltraFine Short. Uses 4 pen needles daily with insulin administration. 100 Each 3 07/29/2021 polyethylene glycol 3350 (MIRALAX) 17 gram packet Take 17 g by mouth 2 times daily as needed (constipation). 08/08/2021 no122/iron/folic acid ( MULTI ORAL) Take by mouth. valACYclovir (VALTREX) 500 mg tabletIndications:PCR DNA positive for HSV1 TAKE ONE TABLET BY MOUTH TWICE A DAY 10 Tab 1 03/15/2020 atomoxetine (STRATTERA) 80 mg capsuleIndications:Atten tion deficit hyperactivity disorder (ADHD), unspecified ADHD type Take 1 Cap by mouth daily. 30 Cap 3 05/05/2019 08/08/2021 insulin aspart U-100 (NOVOLOG FLEXPEN U-100 INSULIN) 100 unit/mL (3 mL) injectable pen Inject 3 units into skin 15 minutes prior to breakfast and lunch and inject 5 units into skin 15 minutes prior to dinner as instructed. Total of 11 units daily. 9 mL 3 07/29/2021 08/08/2021 insulin NPH (NOVOLIN N) 100 unit/mL (3 mL) injectable pen Inject 15 Units into the skin at bedtime. 5 Each 3 07/07/2021 08/08/2021 levothyroxine (SYNTHROID) 200 mcg tablet Take 1 Tablet by mouth daily. To be taken with a 50 mcg tablet for a total of 250 mcg PO daily. 90 Tablet 2 12/16/2020 02/16/2022 levothyroxine (SYNTHROID) 50 mcg tablet Take 1 Tablet by mouth daily. To be taken with a 200 mcg tablet for a total of 250 mcg PO daily. 90 Tablet 3 12/16/2020 02/16/2022 documented as of this encounter Discharge Disposition Disposition Code Departure Means Destination Home or Self Care documented in this encounter Plan of Treatment Not on file documented as of this encounter Goals Goal Patient Goal Type Associated Problems Recent Progress Patient-Stated? Author Weight Loss General Obesity, Class III, BMI 40-49.9 (morbid obesity) No Marva Hitchcock Note: Increased activity getting out doors with daughter documented as of this encounter Procedures Procedure Name Priority Date/Time Associated Diagnosis Comments US OB BIOPHYSICAL PROFILE WITH NON STRESS Routine 07/30/2021 15:54 EDT Encounter for supervision of other normal in second trimester documented in this encounter Results * US OB BIOPHYSICAL PROFILE WITH NON STRESS (07/30/2021 15:54 EDT) Anatomical Region Laterality Modality Pelvis Ultrasound 07/30/2021 15:4 9 EDT Narrative 07/30/2021 16:17 EDT Indication BMI 51.9. History ======= General History Height 157 cm Height (ft) ?5 ft Height (in) ?2 in Previous Outcomes ?2 Para ?? 1 Patel children born (T) ?1 Patel children born (P) ?0 Abortions (A) ??0 Patel living children (L) ??1 Maternal Assessment Height 157 cm Height (ft) ?5 ft Height (in) ?2 in Physical Exam Initial weight 129 kg Initial weight (lb) ?284 lb Initial BMI ?51.94 kg/m?? Number of fetuses: 1. Dating ======= LMP on: ?10/24/2020 GA by LMP ??39 w + 6 d GEOVANI by LMP : ? 07/31/2021 Stated Dating on: ?01/07/2021 GA at stated dating date 9 w + 0 d GA by stated dating ??38 w + 1 d GEOVANI by stated dating: ?08/12/2021 Assigned: ??Dating performed on 05/23/2021, based on the external assessment (on 01/07/2021) Assigned GA ?38 w + 1 d Assigned GEOVANI: ??08/12/2021 General Evaluation Cardiac activity: Present. FHR 151 bpm. movements: visualized. Presentation: cephalic. Placenta: posterior. Amniotic Fluid Assessment Amount of AF: normal MVP 6.3 cm. CHRISTI 11.9 cm. Q1 6.3 cm, Q2 2.4 cm, Q3 0.8 cm, Q4 2.5 cm Biophysical Profile 2: breathing movements 2: Gross body movements 2: tone 2: Amniotic fluid volume 2: NST 12/08: Biophysical profile score Interpretation: normal DVD number 3004, Duration: 4 minutes Method ======== Voluson E10, Transabdominal ultrasound examination. View: Limited by maternal habitus. Impression [id number] Biophysical Profile (including NST) This is a patel . Please see BPP score above. Follow-up Follow-up with weekly BPPs. DATE OF SERVICE: 07/30/2021 Procedure Note Pawan Ernandez MD - 07/30/2021 Indication BMI 51.9. History ======= General History Height 157 cm Height (ft) 5 ft Height (in) 2 in Previous Outcomes 2 Para 1 Patel children born (T) 1 Patel children born (P) 0 Abortions (A) 0 Patel living children (L) 1 Maternal Assessment Height 157 cm Height (ft) 5 ft Height (in) 2 in Physical Exam Initial weight 129 kg Initial weight (lb) 284 lb Initial BMI 51.94 kg/m?? Number of fetuses: 1. Dating ======= LMP on: 10/24/2020 GA by LMP 39 w + 6 d GEOVANI by LMP : 07/31/2021 Stated Dating on: 01/07/2021 GA at stated dating date 9 w + 0 d GA by stated dating 38 w + 1 d GEOVANI by stated datin08/12/2021 Assigned: Dating performed on 05/23/2021, based on the externalassessment (on 01/07/2021) Assigned GA 38 w + 1 d Assigned GEOVANI: 08/12/2021 General Evaluation Cardiac activity: Present. FHR 151 bpm. movements: visualized. Presentation: cephalic. Placenta: posterior. Amniotic Fluid Assessment Amount of AF: normal MVP 6.3 cm. CHRISTI 11.9 cm. Q1 6.3 cm, Q2 2.4 cm, Q3 0.8 cm, Q4 2.5 cm Biophysical Profile 2: breathing movements 2: Gross body movements 2: tone 2: Amniotic fluid volume 2: NST 10/10: Biophysical profile score Interpretation: normal DVD number 3004, Duration: 4 minutes Method ======== Voluson E10, Transabdominal ultrasound examination. View: Limited bymaternal habitus. Impression [id number] Biophysical Profile (including NST) This is a patel . Please see BPP score above. Follow-up Follow-up with weekly BPPs. DATE OF SERVICE: 07/30/2021 Braulio Scanlon MD IMG US OB ORDERABL ES documented in this encounter Visit Diagnoses Diagnosis Encounter for supervision of other normal in second trimester documented in this encounter Care Teams Planer Operator Relationship Specialty Start Date End Date Ayla Solomon DO [facility] [address] [place] [address] PCP - General General Surgery 04/12/21 documented as of this encounter
--- OUTSIDE RECORDS SUMMARY | 2023-12-04 20:14 | XMS_ITS | Encounter Summary ---
Author Organization [facility] Address [address] [place] [address] Care Team Providers Care Lot Attendant Name Role Phone Juanito Ayla Keagan LACY Primary Care Provider [phone] Reason for Visit * Reason Onset Date Comments Appointment Related 05/26/2022 Encounter Details Date Type Department Care Team (Late st Contact Info) Description 05/26/2022 Telephone [facility] Endocrinology - [facility] [address] [place] [address] Carlos Nuñez DO [address] [facility] [address] [place] [address] Appointment Related Social History Tobacco [...] in the Last Year Never true 11/07/2019 [place] Depression Scale Answer Date Recorded [place] Depression Scale Total 21 09/17/2021 The thought [...] * Telephone Encounter - Alie Zhang - 05/26/2022 1429 EDT Left voicemail to let patient know the appointment on 09/02/[address] Carlos nuñez was cancelleddue to a schedule change. Please reschedule next available. PASC: If patient wants to be seen sooner, you may offer a one-time appointment with a different provider within the Thyroid pathway. Schedule this appointment using provider change guidelines. documented in this encounter Plan of Treatment Not on file documented as of this encounter Goals Goal Patient Goal Type Associated Problems Recent Progress Patient-Stated? Author Weight Loss General Obesity, Class III, BMI 40-49.9 (morbid obesity) No Marva Hitchcock Note: Increased activity getting out doors with daughter documented as of this encounter Visit Diagnoses Not on filedocumented in this encounter Care Teams Lot Attendant Relationship Specialty Start Date End Date Ayla Solomon DO [address] [place] [address] PCP - General General Surgery 04/12/21 documented as of this encounter
--- OUTSIDE RECORDS SUMMARY | 2023-12-04 20:14 | XMS_ITS | Encounter Summary ---
Author Organization [facility] Address [address] [place] [address] Care Team Providers Care Hobbies And Crafts Sales Representative Name Role Phone Juanito Ayla Keagan LACY Primary Care Provider [phone] Reason for Visit * Reason Onset Date Comments Medication Questions 02/16/2022 Encounter Details Date Type Department Care Team (Late st Contact Info) Description 02/16/2022 Telephone [facility] Endocrinology - [facility] [address] [place] [address] Carlos Nuñez DO [address] [facility] [address] [place] [address] Medication Questions Social History Tobacco Use Types Packs/Day Years [...] in the Last Year Never true 11/07/2019 [place] Depression Scale Answer Date Recorded [place] Depression Scale Total 21 09/17/2021 The thought [...] Start Date End Da te levothyroxine (SYNTHROID) 25 mcg tabletIndications:Hypothy roidism, postablative Take 1 Tablet by mouth daily. To be taken with one tablet of 200 mcg for a total of 225 mcg daily 90 Tablet 3 02/16/2022 08/04/2022 levothyroxine (SYNTHROID) 200 mcg tabletIndications:Hypothy roidism, postablative Take 1 Tablet by mouth daily. To be taken with a 25 mcg tablet for a total of 225 mcg PO daily. 90 Tablet 3 02/16/2022 08/04/2022 documented in this encounter Miscellaneous Notes * Telephone Encounter - Pema Cordoba RN - 02/16/2022 1227 EST 02/16/22 12:27 Returning patient's call to relay Dr. Nuñez Verbal orders: 1. Increase Levothyroxine from 200 mcg PO daily to 225 mcg PO daily. Patient's options are the following: Levothyroxine 75 mcg tablets and take THREE (3) tablets daily for a total of 225 mcg OR Levothyroxine 200 mcg tablet + 25 mcg tablet daily for a total of 225 mcg 2. Recheck labs in 6 weeks Labs location: [facility] Phone number: [phone] Plan: 1. Scripts 200 and 25 mcg to be sent to the pharmacy. 2. Labs to be sent to [facility]: e-faxed 02/16/22 12:55 at [phone] PEMA DRISCOLL RN 02/16/2022 12:55 * Telephone Encounter - Raissa Peña - 02/16/2022 1226 EST Patient returned missed call and would like a call back to discuss message that was left. * Telephone Encounter - Pema Cordoba RN - 02/16/2022 1034 EST 02/16/22 10:34 Calling patient to relay Dr. Nuñez's message copied below: Please contact patient via phone. I reviewed her most recent thyroid function test obtained on 02/13/2022. Her TSH is elevated at 21.9 however her free T4 was well within the normal range. Please confirm patient is actually taking thyroid hormone replacement as review of her chart shows her levothyroxine was listed as not taking back in December 16, 2020. I am not seen the patient in the office for 2 years. If patient is taking thyroid hormone placement will need an updated dose and confirmation the patient is taking medication regularly and properly. Patient verbalized understanding. No barriers to learning noted. Current dose: Levothyroxine 200 mcg PO daily Taken: first thing in the morning on an empty stomach before she goes to work. Symptoms: 1. Not feeling the greatest 2. Very stressed out so had attributed this to stress Patient used to take 250 mcg while . Patient gave 08/07/2021. [facility]acy: [facility] 02/16/22 10:42 Dr. Nuñez notified in person Verbal orders: 1. Increase Levothyroxine from 200 mcg PO daily to 225 mcg PO daily. Patient's options are the following: Levothyroxine 75 mcg tablets and take THREE (3) tablets daily for a total of 225 mcg OR Levothyroxine 200 mcg tablet + 25 mcg tablet daily for a total of 225 mcg 2. Recheck labs in 6 weeks 02/16/22 10:43 Calling back patient. Unable to reach patient. Left detailed message with Dr. Nuñez's verbal orders above written. Patient informed that the cost might be different between options. Patient informed that per Dr. Nuñez, it might be more cost effective having three of the same strength. Patient instructed to call back to provide answer and to inform first person who answers ([facility]) that this is a HIGH PRIORITY re: patient took last dose today 02/16/22 . PEMA DRISCOLL RN 02/16/2022 10:50 * Telephone Encounter - Carlos Nuñez DO - 02/16/2022 1018 EST Please contact patient via phone. I reviewed her most recent thyroid function test obtained on 02/13/2022. Her TSH is elevated at 21.9 however her free T4 was well within the normal range. Please confirm patient is actually taking thyroid hormone replacement as review of her chart shows her levothyroxine was listed as not taking back in December 16, 2020. I am not seen the patient in the office for 2 years. If patient is taking thyroid hormone placement will need an updated dose and confirmationthe patient is taking medication regularly and properly. documented in this encounter Plan of Treatment [...] Other postablative hypothyroidism documented in this encounter Discontinued Medications Medication Sig Discontinue Reason Start Date End Da te levothyroxine (SYNTHROID) 50 mcg tablet Take 1 Tablet by mouth daily. To be taken with a 200 mcg tablet for a total of 250 mcg PO daily. Dose adjustment 12/16/2020 02/16/2022 levothyroxine (SYNTHROID) 200 mcg tablet Take 1 Tablet by mouth daily. To be taken with a 50 mcg tablet for a total of 250 mcg PO daily. Reorder 12/16/2020 02/16/2022 documented as of this encounter Care Teams Hobbies And Crafts Sales Representative Relationship Specialty Start Date End Date Ayla Solomon DO [address] [place] [address] PCP - General General Surgery 04/12/21 documented as of this encounter
--- OUTSIDE RECORDS SUMMARY | 2023-12-04 20:14 | XMS_ITS | Encounter Summary ---
Author Organization [facility] Address [address] [place] [address] Care Team Providers Care Environmental Officer Name Role Phone Ayla Solomon DO Primary Care Provider [phone] Reason for Referral * SUPPLY COORDINATOR (Routine/Next Available) - Order Cancelled Specialty Diagnoses / Procedures Referred By Eugene asencio Referred To Contact Diagnoses Encounter for supervision of other normal in second trimester Procedures US OB BIOPHYSICAL PROFILE WITH NON STRESS Braulio Scanlon MD [address] [address] [facility] Referral ID Status Reason Start Date Expiration Date V isits Requested Visits Authorized [id number] Order Cancelled 05/23/2021 12 12 Reason for Visit * SUPPLY COORDINATOR (Routine/Next Available) - Order Cancelled Specialty Diagnoses / Procedures Referred By Eugene asencio Referred To Contact Diagnoses Encounter for supervision of other normal in second trimester Procedures US OB BIOPHYSICAL PROFILE WITH NON STRESS Braulio Scanlon MD [address] [address] [facility] Referral ID Status Reason Start Date Expiration Date V isits Requested Visits Authorized [id number] Order Cancelled 05/23/2021 12 12 Encounter Details Date Type Department Care Team (Latest Contact Info) Description 08/06/2021 8:53 EDT - 08/06/2021 10:59 EDT Hospital Encounter [facility] Obstetrics Services - [address] [address] Encounter for supervision of other normal in [...] No 08/06/2021 documented as of this encounter Medications at [...] OB BIOPHYSICAL PROFILE WITH NON STRESS Routine 08/06/2021 9:22 EDT Encounter for supervision of other normal in second trimester documented in this encounter Results * US OB BIOPHYSICAL PROFILE WITH NON STRESS (08/06/2021 9:22 EDT) Anatomical Region Laterality Modality Pelvis Ultrasound 08/06/2021 8:58 EDT Narrative 08/06/2021 11:10 EDT Indication ======== BMI 51.9 History ====== General History Height 157 cm Height (ft) ?5 ft Height (in) ?2 in Previous Outcomes ?2 Para ?? 1 Pregnancies delivered at term (T) ??1 Pregnancies delivered (P) ??0 Abortions (A) ??0 Living children (L) ?1 Maternal Assessment Height 157 cm Height (ft) ?5 ft Height (in) ?2 in Physical Exam Initial weight 129 kg Initial weight (lb) ?284 lb Initial BMI ?51.94 kg/m?? ========= Number of fetuses: 1 Dating ====== LMP on: ?10/24/2020 GA by LMP ??40 w + 6 d GEOVANI by LMP : ? 07/31/2021 Prior assessment on: ?? 01/07/2021 GA by prior assessment 39 w + 1 d GEOVANI by prior assessment: ?? 08/12/2021 GA at prior assessment date ?9 w + 0 d Assigned: ??Dating performed on 05/23/2021, based on the external assessment (on 01/07/2021) Assigned GA ?39 w + 1 d Assigned GEOVANI: ??08/12/2021 General Evaluation Cardiac activity Present. FHR 132 bpm. movements: visualized. Presentation: cephalic, maternal left Placenta: posterior Amniotic Fluid Assessment Amount of AF: normal MVP 5.4 cm. CHRISTI 13.6 cm. Q1 4.0 cm, Q2 5.4 cm, Q3 0.0 cm, Q4 4.2 cm Biophysical Profile 2: breathing movements 2: Gross body movements 2: tone 2: Amniotic fluid volume DVD number 3015 Duration: 12 minutes Method ====== Voluson E10, Transabdominal ultrasound examination. View: Sufficient Impression ========= [id number] Biophysical Profile (including NST) This is a patel . Please see BPP score above. Follow-up ======== Follow-up with weekly BPPs. Growth Overview Exam date ??GA ??BPD (mm) ?HC (mm) AC (mm) FL (mm) HL (mm) EFW (g) 05/23/2021 28w 3d ??70 ??28% 260.5 ?? 36% 250.3 ?? 68% 53.9 ?65% 49.9 ?67% 1293 ?36% 06/23/2021 32w 6d ??80 ??22% 292.3 ?? 21% 286.9 ?? 46% 64.5 ?77% 57.7 ?78% 2046 ?33% 07/15/2021 36w 0d ??88.8 ?56% 314.6 ?? 24% 316.9 ?? 49% 71.8 ?89% 64.5 ?92% 2801 ?52% DATE OF SERVICE: 08/06/2021 Procedure Note Itzel Guerrero MD - 08/06/2021 Indication ======== BMI 51.9 History ====== General History Height 157 cm Height (ft) 5 ft Height (in) 2 in Previous Outcomes 2 Para 1 Pregnancies delivered at term (T) 1 Pregnancies delivered (P) 0 Abortions (A) 0 Living children (L) 1 Maternal Assessment Height 157 cm Height (ft) 5 ft Height (in) 2 in Physical Exam Initial weight 129 kg Initial weight (lb) 284 lb Initial BMI 51.94 kg/m?? ========= Number of fetuses: 1 Dating ====== LMP on: 10/24/2020 GA by LMP 40 w + 6 d GEOVANI by LMP : 07/31/2021 Prior assessment on: 01/07/2021 GA by prior assessment 39 w + 1 d GEOVANI by prior assessment: 08/12/2021 GA at prior assessment date 9 w + 0 d Assigned: Dating performed on 05/23/2021, based on the externalassessment (on 01/07/2021) Assigned GA 39 w + 1 d Assigned GEOVANI: 08/12/2021 General Evaluation Cardiac activity Present. FHR 132 bpm. movements: visualized.Presentation: cephalic, maternal left Placenta: posterior Amniotic Fluid Assessment Amount of AF: normal MVP 5.4 cm. CHRISTI 13.6 cm. Q1 4.0 cm, Q2 5.4 cm, Q3 0.0 cm, Q4 4.2 cm Biophysical Profile 2: breathing movements 2: Gross body movements 2: tone 2: Amniotic fluid volume DVD number 3015 Duration: 12 minutes Method ====== Voluson E10, Transabdominal ultrasound examination. View: Sufficient Impression ========= [address] Biophysical Profile (including NST) This is a patel . Please see BPP score above. Follow-up ======== Follow-up with weekly BPPs. Growth Overview Exam date GA BPD (mm) HC (mm) AC (mm) FL (mm) HL (mm) EFW (g) 05/23/2021 28w 3d 70 28% 260.5 36% 250.3 68% 53.9 65% 49.9 67%1293 36% 06/23/2021 32w 6d 80 22% 292.3 21% 286.9 46% 64.5 77% 57.7 78%2047 33% 07/15/2021 36w 0d 88.8 56% 314.6 24% 316.9 49% 71.8 89% 64.592% 2801 52% DATE OF SERVICE: 08/06/2021 Braulio Scanlon MD IMG US OB ORDERABL ES documented in this encounter Visit Diagnoses Diagnosis Encounter for supervision of other normal in second trimester documented in this encounter Care Teams Environmental Officer Relationship Specialty Start Date End Date Ayla Solomon DO [facility] [facility] [address] [place] [address] PCP - General General Surgery 04/12/21 documented as of this encounter
--- OUTSIDE RECORDS SUMMARY | 2023-12-04 20:14 | XMS_ITS | Encounter Summary ---
Author Organization [facility] Address [address] [place] [address] Care Team Providers Care Green Prize Packer Name Role Phone Juanito Ayla Keagan LACY Primary Care Provider [phone] Reason for Visit * Reason Onset Date Comments Orders (Non Pre-visit) 12/07/2022 Encounter Details Date Type Department Care Team (Late st Contact Info) Description 12/07/2022 Telephone [facility] Endocrinology - [facility] [address] [place] [address] Carlos Nuñez DO [address] [facility] [address] [place] [address] Orders (Non Pre-visit) Social History Tobacco Use Types Packs/Day Years [...] in the Last Year Never true 11/07/2019 [place] Depression Scale Answer Date Recorded [place] Depression Scale Total 21 09/17/2021 The thought [...] Telephone Encounter - Natalia Mejía RN - 12/17/2022 0843 EDT Routing to [facility] to get new thyroid lab results from [facility]. Natalia Mejía RN * Telephone Encounter - Natalia Mejía RN - 12/10/2022 0944 EDT Standing TSH and Free T4 lab orders sent to [facility], [email or web address] message sent. Natalia Mejía RN * Telephone Encounter - Rakan Crisostomo - 12/07/2022 1352 EDT Endocrinology Incoming Call Reason for call: Orders Labs Request/Results What labs would you like orders for? TSH, T4 When do you need it by? [facility] Where would you like the labs drawn? [facility] Are you at the lab now? No - Send ROUTINE priority to [facility] Endocrinology Nurse [place] Next Appointment: 01/06/2023 Last Office Visit: Visit date not found Last Telehealth Encounter: 12/28/2019 Carlos Nuñez DO documented in this encounter Plan of Treatment Not on file documented as of this encounter Goals Goal Patient Goal Type Associated Problems Recent Progress Patient-Stated? Author Weight Loss General Obesity, Class III, BMI 40-49.9 (morbid obesity) No Marva Hitchcock Note: Increased activity getting out doors with daughter documented as of this encounter Visit Diagnoses Not on filedocumented in this encounter Care Teams Green Prize Packer Relationship Specialty Start Date End Date Ayla Solomon DO [facility] [facility] [address] [place] [address] PCP - General General Surgery 04/12/21 documented as of this encounter
--- OUTSIDE RECORDS SUMMARY | 2023-12-04 20:14 | XMS_ITS | Encounter Summary ---
Author Organization [facility] Address [address] [place] [address] Care Team Providers Care Line Appliance Assembler Name Role Phone Ayla Solomon DO Primary Care Provider [phone] Reason for Referral * HOUSING DIRECTOR (Routine/Next Available) - Order Cancelled Specialty Diagnoses / Procedures Referred By Eugene asencio Referred To Contact Diagnoses Encounter for supervision of other normal in second trimester Procedures US OB BIOPHYSICAL PROFILE WITH NON STRESS Braulio Scanlon MD [address] [phone] [place] Referral ID Status Reason Start Date Expiration Date V isits Requested Visits Authorized [id number] Order Cancelled 05/23/2021 12 12 Reason for Visit * HOUSING DIRECTOR (Routine/Next Available) - Order Cancelled Specialty Diagnoses / Procedures Referred By Eugene asencio Referred To Contact Diagnoses Encounter for supervision of other normal in second trimester Procedures US OB BIOPHYSICAL PROFILE WITH NON STRESS Braulio Scanlon MD [address] [phone] [place] Referral ID Status Reason Start Date Expiration Date V isits Requested Visits Authorized [id number] Order Cancelled 05/23/2021 12 12 Encounter Details Date Type Department Care Team (Latest Contact Info) Description 07/23/2021 11:00 EDT - 07/23/2021 23:59 EDT Hospital Encounter [facility] Obstetrics Services - [address] [address] Encounter for supervision of other normal in [...] 8 hours as needed for Pain. 08/08/2021 polyethylene glycol 3350 (MIRALAX) 17 gram packet [...] 15 minutes prior to breakfast and lunch as instructed. Total of 6 units daily. 9 mL 3 07/15/2021 07/29/2021 insulin NPH (NOVOLIN N) 100 unit/mL (3 mL) injectable pen Inject 15 Units into the skin at bedtime. 5 Each 3 07/07/2021 08/08/2021 insulin pen needles 31G x 5/16 BD UltraFine Short. Use with insulin pen to inject insulin at bedtime. 100 Each 3 06/09/2021 07/29/2021 levothyroxine (SYNTHROID) 200 mcg tablet Take 1 [...] OB BIOPHYSICAL PROFILE WITH NON STRESS Routine 07/23/2021 11:51 EDT Encounter for supervision of other normal in second trimester documented in this encounter Results * US OB BIOPHYSICAL PROFILE WITH NON STRESS (07/23/2021 11:51 EDT) Anatomical Region Laterality Modality Pelvis Ultrasound 07/23/2021 11:3 6 EDT Narrative 07/23/2021 12:38 EDT Indication BMI . History ======= General History Height 157 cm [...] ======= LMP on: ?10/24/2020 GA by LMP ??38 w + 6 d GEOVANI by LMP : ? 07/31/2021 Stated Dating on: ?01/07/2021 GA at stated dating date 9 w + 0 d GA by stated dating ??37 w + 1 d GEOVANI by stated dating: ?08/12/2021 Assigned: ??Dating performed on 05/23/2021, based on the external assessment (on 01/07/2021) Assigned GA ?37 w + 1 d Assigned GEOVANI: ??08/12/2021 General Evaluation Cardiac activity: Present. FHR 140 bpm. movements: visualized. Presentation: cephalic. Placenta: posterior. Amniotic Fluid Assessment Amount of AF: normal MVP 6.4 cm. CHRISTI 13.0 cm. Q1 3.0 cm, Q2 3.7 cm, Q3 6.4 cm, Q4 0.0 cm Biophysical Profile 2: breathing movements 2: Gross body movements 2: tone 2: Amniotic fluid volume 2: NST 12/08: Biophysical profile score Interpretation: normal DVD number 2990 T Cine Loops, Duration: 8 minutes Method ======== Voluson E10, Transabdominal ultrasound examination. View: Limited by maternal habitus. Impression [id number] Biophysical Profile (including NST) This is a patel . Please see BPP score above. Follow-up Follow-up with weekly BPPs. DATE OF SERVICE: 07/23/2021 Procedure Note Itzel Guerrero MD - 07/23/2021 Indication BMI . History ======= General History Height 157 cm [...] ======= LMP on: 10/24/2020 GA by LMP 38 w + 6 d GEOVANI by LMP : 07/31/2021 Stated Dating on: 01/07/2021 GA at stated dating date 9 w + 0 d GA by stated dating 37 w + 1 d GEOVANI by stated datin08/12/2021 Assigned: Dating performed on 05/23/2021, based on the externalassessment (on 01/07/2021) Assigned GA 37 w + 1 d Assigned GEOVANI: 08/12/2021 General Evaluation Cardiac activity: Present. FHR 140 bpm. movements: visualized. Presentation: cephalic. Placenta: posterior. Amniotic Fluid Assessment Amount of AF: normal MVP 6.4 cm. CHRISTI 13.0 cm. Q1 3.0 cm, Q2 3.7 cm, Q3 6.4 cm, Q4 0.0 cm Biophysical Profile 2: breathing movements 2: Gross body movements 2: tone 2: Amniotic fluid volume 2: NST 10/10: Biophysical profile score Interpretation: normal DVD number 2990 T Cine Loops, Duration: 8 minutes Method ======== Voluson E10, Transabdominal ultrasound examination. View: Limited bymaternal habitus. Impression [id number] Biophysical Profile (including NST) This is a patel . Please see BPP score above. Follow-up Follow-up with weekly BPPs. DATE OF SERVICE: 07/23/2021 Braulio Scanlon MD IMG US OB ORDERABL ES documented in this encounter Visit Diagnoses Diagnosis Encounter for supervision of other normal in second trimester documented in this encounter Additional Health Concerns Infection Onset Date Last Indicated Resolved Time COVID-19 07/14/2021 07/14/2021 07/25/2021 22:1 6 EDT documented as of this encounter Care Teams Line Appliance Assembler Relationship Specialty Start Date End Date Ayla Solomon DO [address] [place] [address] PCP - General General Surgery 04/12/21 documented as of this encounter
--- OUTSIDE RECORDS SUMMARY | 2023-12-04 20:14 | XMS_ITS | Encounter Summary ---
Author Organization [facility] Address [address] [place] [address] Care Team Providers Care Skilled Nursing Facility Counselor Name Role Phone Juanito Aylaflorence Boogie DO Primary Care Provider [phone] Reason for Visit * Auth/Cert Specialty Diagnoses / Procedures Referred By Eugene asencio Referred To Contact Diagnoses Encounter for induction of labor Referral ID Status Reason Start Date Expiration Date Visits Re quested Visits Authorized [id number] 1 1 Encounter Details Date Type Department Care Team (Late st Contact Info) Description 08/06/2021 20:07 EDT Anesthesia Event [facility] [place] [facility] [address] [place] [address] Jet Mcintosh MD 111 [facility], Level [address] [place] [phone] Manny Dixon MD [address] [place] [phone] Anesthesia Record Procedure Summary Procedure Name Responsible Anesthesiologist Anesthesia Start Time Anesthesia Stop Time LABOR ANALGESIA Jet Mcintosh MD 08/06/21 200 7 08/07/21 0118 Events Date Time Event Comment 08/06/2021 2007 An Start The patient was re-evaluated immediately before moderate or deep sedation use, before anesthesia induction, or before the anesthesia procedure. 2137 Alexander Patient with ri ght sided sparing block. Pulled back catheter 1cm and bolused 20cc of bag solution 2223 Alexander Bedside RN noti fied of patient still with significant pain. Unilateral block. Decision made to replace epidural with CSE using US to locate anatomy 2303 Block Placed Duration of Ane sthesia Provider Interaction/Face-Time = 20 minutes 08/07/2021 0035 Alexander Again with righ t sided sparing bloci. Pulled back 0.5cm while patient on right side and bolused 0118 An Stop Meds Name Total bupivacaine-fentanyl in NS 0.0625 %-2 mc g/mL 250 mL epidural bag 46.67 mL lidocaine 1.5 %-EPINEPHrine 1:200,000 in jection 3 mL bupivacaine (PF) (MARCAINE) 5 mL in sodi um chloride (PF) 5 mL 10 mL bupivacaine (PF) (MARCAINE) 4 mL, fentaNYL citrate (PF) 100 mcg in sodium chloride (PF) 4 mL 10 mL * Agents No agents on file. * Blood No blood administrations on file. Lines, Drains, and Airways Type Details Placement Removal Peripheral IV 08/06/21; 1330; 07/30 07/20; 18; 1.75; B Zeng Introcan; Right, Posterior, Lateral; Forearm; Inserted by RN, Ultrasound Guided; 1; None; 2% Chlorhexidine with IPA; 08/07/21; 1700 08/06/21 1330 by Jhoana Lara RN 08/07/21 1700 by Sarah Vizcaino, ROULA Peripheral IV 08/06/21; 1345; 07/30 07/20; 20; 1.75; B Zeng Introcan; Right, Posterior, Proximal; Forearm; Inserted by RN, Ultrasound Guided; 1; None; 2% Chlorhexidine with IPA; 08/07/21; 1700 08/06/21 1345 by Jhoana Lara RN 08/07/21 1700 by Sarah Vizcaino, ROULA Epidural (must document CSMTs and urinary function) 08/06/21; 2122 (created via procedure documentation); 08/07/21; 127; Therapy completed; Catheter intact 08/06/212122 by Manny Dixon MD 08/07/21 012 by Angela Tovar, ROULA Urethral Catheter 08/06/21; 2154; Inse rted by RN; Selected surgical procedures/Epidural; Coude; 16 fr; 10 ml; Yes; 08/07/21; 0116 08/06/215 by Angela Tovar RN 08/07/21 0116 by Angela Tovar RN documented in this encounter Social History [...] No 08/06/2021 documented as of this encounter OR Notes * Anesthesia Postprocedure Evaluation - Reji Shah MD - 08/08/2021 0838 EDT OB Anesthesiology Rounding Note Department of Anesthesiology DOS: 08/08/2021 Subjective: Ms. Cline reports excellent pain control today. No complaints of pruritis, chills, night sweats, or escalating back pain. No fever or excessive drowsiness. Denies of weakness, numbness, tingling in lower extremities or incontinence. Denies headache. Has been ambulating around room. REJI SHAH MD Athletics Director 08/08/2021 * Anesthesia Procedure Notes - Manny Dixon MD - 08/07/2021 0059 EDT Associated Order(s): Combined Spinal Epidural Block Combined Spinal Epidural Block Patient location during procedure: OB Reason for block: labor analgesia Staffing Performed: resident/OFFICE MACHINE MECHANIC/AA Anesthesiologist: Jet Mcintosh MD Resident/OFFICE MACHINE MECHANIC: Manny Dixon MD Preanesthetic Checklist Completed: patient identified, IV checked, risks and benefits discussed, surgical consent, monitorsand equipment checked, pre-op evaluation and timeout performed CSE Patient position: sitting Prep: ChloraPrep, site prepped and draped, skin prep agent completely dried prior to procedure, sterile gloves, mask used and subcutaneous lidocaine Patient monitoring: heart rate, continuous pulse ox and BP cuff Approach: midline Spinal Needle Needle type: Tuohy Needle gauge: 27 G Needle length: 8.5 in Epidural Needle Injection technique: SEBAS saline Needle type: Tuohy Needle gauge: 17 G Needle length: 7 in Needle insertion depth: 10 cm Location: lumbar (1-5) L3-4 Catheter Catheter type: side hole Catheter size: 19 G Catheter at skin depth: 17 cm Test dose: lidocaine 1.5% with epinephrine 1-to-200,000, negative and 3mL Assessment Events: no paresthesia Additional Notes US used to map out anatomy. Long CSE kit utilized. Able to find spinous process and walk up to findepidural space. However, no CSF return with spinal needle. Decision made to thread epidural catheter which it did easily. * Anesthesia Procedure Notes - Manny Dixon MD - 08/06/20212 EDT Associated Order(s): Epidural Block Epidural Block Staffing Performed: resident/OFFICE MACHINE MECHANIC/AA Anesthesiologist: Jet Mcintosh MD Resident/OFFICE MACHINE MECHANIC: Manny Dixon MD Preanesthetic Checklist Completed: patient identified, IV checked, risks and benefits discussed, surgical consent, monitorsand equipment checked, pre-op evaluation and timeout performed Epidural Patient position: sitting Prep: ChloraPrep, site prepped and draped, skin prep agent completely dried prior to procedure, sterile gloves, mask used and subcutaneous lidocaine Patient monitoring: heart rate, continuous pulse ox and BP cuff Approach: midline Location: lumbar (1-5) L3-4 Injection technique: SEBAS saline Needle Needle type: Tuohy Needle gauge: 17 G Needle length: 3.5 in Needle insertion depth: 10 cm Catheter type: side hole Catheter size: 19 G Catheter at skin depth: 17 cm Test dose: negative, 3 mL and lidocaine 1.5% with epinephrine 1-to-200,000 Assessment Events: no paresthesia Additional Notes 2 attempts. First attempt with lamina repeatedly. Went down 1 level, still lamina. Patient said maybe more on the right side so angeled left and was able to engage ligamentum. Had to use continues pressure to reach epidural space. Catheter threaded easily Reason for block: labor analgesia * Anesthesia Preprocedure Evaluation - Manny Dixon MD - 08/06/20210 EDT Anesthesia Preprocedure Evaluation Patient Medical History, including Anesthesia History reviewed. Chart and Nursing Notes reviewed, including NPO status and Medication History. Additional ROS/History Findings: Portions of the below are attributable to the main OB team: 25 y.o. at 39w1d by 1st trimester US who presents for IOL for gHTN Labs pending. c/b: -COVID +5/16 -hypothyroid levothyroxine 250mcg daily -A2GDM on insulin -asthma (used inhaler last month 2/2 COVID infection, otherwise doesn't need rescue inhaler) -HSV on valtrex -super morbid obesity No problems with anesthesia in the past, easy placement and function of previous epidural. Will want epidural. Consented for spinal, epidural, GA, blood transfusion. Allergies Allergen Reactions ??? Lorabid [Loracarbef] Nausea And Vomiting ??? Yeast, Dried Nausea And Vomiting If consumes large amounts will develop N/V Patient is now. (+) hypertensive disorder of and gestational diabetes Past Medical History: Diagnosis Date ??? ADD (attention deficit disorder) ??? Asthma, exercise induced ??? Autoimmune disorder ([facility]) ([facility]) Grave's disease ??? Depression was taking meds (can't remember what), stopped in 07/2016, no counselor ??? Gestational hypertension, third trimester 08/06/2021 ??? Herpes simplex virus (HSV) infection ??? Insulin controlled gestational diabetes mellitus (GDM) during 06/16/2021 ??? Mood disorder (HCC-CMS) ([facility]) ??? Thyroid disease Relevant Problems PULMONARY (+) Asthma ENDO/GI (+) Hypothyroidism, postablative Clinical information reviewed: Physical Exam Airway Mallampati: III Cardiovascular - normal exam Dental - normal exam Pulmonary - normal exam Abdominal (+) obese Anesthesia Plan ASA 3 Anesthesia Type - neuraxial block - via epidural Anesthesia plan and risks discussed. Informed consent obtained from patient. Use of blood products discussed with patient who consented to blood products. Specific risks discussed were bleeding, headache, incomplete block, infection, nausea, nerve damageand vomiting. Obstetrics patient pre-procedure anesthesia evaluation included a discussion of epidural, spinal, general, and TAP block mode(s) of anesthesia. Risks discussed included: Bleeding, infection, nerve injury, spinal headaches, high spinals, hematomas, and low blood pressures with under-perfusion. The possibilities of inadequate epidural/block, block failure, and possible block replacement were also discussed. All patient's questions were answered to their satisfaction. PAT Note Notes from 07/07/21 through 08/06/21 No notes of this type exist for this encounter. documented in this encounter Plan of Treatment Not on file documented as of this encounter Goals Goal Patient Goal Type Associated Problems Recent Progress Patient-Stated? Author Weight Loss General Obesity, Class III, BMI 40-49.9 (morbid obesity) No Marva Hitchcock Note: Increased activity getting out doors with daughter documented as of this encounter Procedures Procedure Name Priority Date/Time Associated Diagnosis Comments ANESTHESIA CSE BLOCK Routine 08/07/2021 0:59 EDT ANESTHESIA EPIDURAL BLOCK Routine 08/06/2021 21:22 EDT documented in this encounter Results * [place] ANESTHESIA NON-TIMED PLACEHOLDER (08/07/2021 0:59 EDT) Narrative Manny Dixon MD - 08/07/2021 0:59 EDT Manny Dixon MD ? 08/07/2021 ??1:00 Combined Spinal Epidural Block Patient location during procedure: OB Reason for block: labor analgesia Staffing Performed: resident/OFFICE MACHINE MECHANIC/AA Anesthesiologist: Jet Mcintosh MD Resident/OFFICE MACHINE MECHANIC: Manny Dixon MD Preanesthetic Checklist Completed: patient identified, IV checked, risks and benefits discussed, surgical consent, monitors and equipment checked, pre-op evaluation and timeout performed CSE Patient position: sitting Prep: ChloraPrep, site prepped and draped, skin prep agent completely dried prior to procedure, sterile gloves, mask used and subcutaneous lidocaine Patient monitoring: heart rate, continuous pulse ox and BP cuff Approach: midline Spinal Needle Needle type: Tuohy Needle gauge: 27 G Needle length: 8.5 in Epidural Needle Injection technique: SEBAS saline Needle type: Tuohy Needle gauge: 17 G Needle length: 7 in Needle insertion depth: 10 cm Location: lumbar (1-5) ??L3-4 Catheter Catheter type: side hole Catheter size: 19 G Catheter at skin depth: 17 cm Test dose: lidocaine 1.5% with epinephrine 1-to-200,000, negative and 3mL Assessment Events: no paresthesia Additional Notes US used to map out anatomy. Long CSE kit utilized. Able to find spinous process and walk up to find epidural space. However, no CSF return with spinal needle. Decision made to thread epidural catheter which it did easily. Jet Mcintosh MD ANESTHESIA ORDER LITZY * [place] ANESTHESIA NON-TIMED PLACEHOLDER (08/06/2021 21:22 EDT) Narrative Manny Dixon MD - 08/06/2021 21:22 EDT Manny Dixon MD ? 08/06/2021 21:23 Epidural Block Staffing Performed: resident/OFFICE MACHINE MECHANIC/AA Anesthesiologist: Jet Mcintosh MD Resident/OFFICE MACHINE MECHANIC: Manny Dixon MD Preanesthetic Checklist Completed: patient identified, IV checked, risks and benefits discussed, surgical consent, monitors and equipment checked, pre-op evaluation and timeout performed Epidural Patient position: sitting Prep: ChloraPrep, site prepped and draped, skin prep agent completely dried prior to procedure, sterile gloves, mask used and subcutaneous lidocaine Patient monitoring: heart rate, continuous pulse ox and BP cuff Approach: midline Location: lumbar (1-5) ??L3-4 Injection technique: SEBAS saline Needle Needle type: Tuohy Needle gauge: 17 G Needle length: 3.5 in Needle insertion depth: 10 cm Catheter type: side hole Catheter size: 19 G Catheter at skin depth: 17 cm Test dose: negative, 3 mL and lidocaine 1.5% with epinephrine 1-to-200,000 Assessment Events: no paresthesia Additional Notes 2 attempts. First attempt with lamina repeatedly. Went down 1 level, still lamina. Patient said maybe more on the right side so angeled left and was able to engage ligamentum. Had to use continues pressure to reach epidural space. Catheter threaded easily Reason for block: labor analgesia Jet Mcintosh MD ANESTHESIA ORDER LITZY documented in this encounter Visit Diagnoses Not on filedocumented in this encounter Administered Medications Inactive Administered Medications - up to 3 most recent administrations Medication Order MAR Action Action Date Dose Rate Site bupivacaine (PF) (MARCAINE) 4 mL, fentaNYL citrate (PF) 100 mcg in sodium chloride (PF) 4 mL epidural, FA IP EQF CONTINUOUS PRN FOR ONE STEP MEDS, Starting on Indu 08/07/21 at 0050, Until Indu 08/07/21 at 0119, Routine, Anesthesia Intraprocedure Bolus 08/07/2021 0:53 EDT 5 mL New Bag 08/07/2021 0:50 EDT 5 mL bupivacaine (PF) (MARCAINE) 5 mL in sodium chloride (PF) 5 mL epidural, FA IP EQF CONTINUOUS PRN FOR ONE STEP MEDS, Starting on 08/06/21 at 2034, Until Indu 08/07/21 at 0119, Routine, Anesthesia Intraprocedure Bolus 08/06/2021 20:37 EDT 5 mL New Bag 08/06/2021 20:34 EDT 5 mL bupivacaine-fentaNYL in NS 0.0625 %-2 mcg/mL 250 mL epidural epidural, FA IP EQF CONTINUOUS PRN FOR ONE STEP MEDS, Starting on Wed08/06/21 at 2037, Until Indu 08/07/21 at 0119, Routine, Anesthesia Intraprocedure New Bag 08/06/2021 20:38 EDT 10 mL/hr 10 mL/hr lidocaine-EPINEPHrine (PF) 1.5 %-1:200,000 injection epidural, PRN, Starting on Wed08/06/21 at 2030, Until Indu 08/07/21 at 0119, Routine, Anesthesia Intraprocedure Given 08/06/2021 20:31 EDT 3 mL documented in this encounter Care Teams Skilled Nursing Facility Counselor Relationship Specialty Start Date End Date Ayla Solomon DO [address] [place] [address] PCP - General General Surgery 04/12/21 documented as of this encounter
--- OUTSIDE RECORDS SUMMARY | 2023-12-04 20:14 | XMS_ITS | Encounter Summary ---
Author Organization [facility] Address [address] [place] [address] Care Team Providers Care Mill Platform Supervisor Name Role Phone Juanito Ayla Keagan LACY Primary Care Provider [phone] Reason for Visit * Reason Onset Date Comments Medication Management 03/23/2022 Encounter Details Date Type Department Care Team (Late st Contact Info) Description 03/23/2022 Telephone [facility] Endocrinology - [facility] [address] [place] [address] Carlos Nuñez DO [address] [facility] [address] [place] [address] Medication Management Social History Tobacco Use Types Packs/Day Years [...] in the Last Year Never true 11/07/2019 [place] Depression Scale Answer Date Recorded [place] Depression Scale Total 21 09/17/2021 The thought [...] encounter Miscellaneous Notes * Telephone Encounter - Carlos Nuñez DO - 03/23/2022 0958 EST Please contact patient via phone or send her a Waddle message. Patient's most recent labs drawn on03/20/2022 showed TSH in range at 0.79 with a free T4 1.37. She should continue on her current dose of 225 mcg daily which includes 1 200 mcg tablet and 125 mcg tablet. Call with questions or concernsor changes in symptoms. Patient has follow-up appointment with me in the summer. documented in this encounter Plan of Treatment Not on file documented as of this encounter Goals Goal Patient Goal Type Associated Problems Recent Progress Patient-Stated? Author Weight Loss General Obesity, Class III, BMI 40-49.9 (morbid obesity) No Marva Hitchcock Note: Increased activity getting out doors with daughter documented as of this encounter Visit Diagnoses Not on filedocumented in this encounter Care Teams Mill Platform Supervisor Relationship Specialty Start Date End Date Ayla Solomon DO [facility] [place] [address] PCP - General General Surgery 04/12/21 documented as of this encounter
--- OUTSIDE RECORDS SUMMARY | 2023-12-04 20:14 | XMS_ITS | Encounter Summary ---
Author Organization [facility] Address [address] [place] [address] Care Team Providers Care Inspector Exhaust Emissions Name Role Phone Maribethbelkys Ayla Boogie Primary Care Provider [phone] Reason for Visit * Auth/Cert Specialty Diagnoses / Procedures Referred By Eugene asencio Referred To Contact Diagnoses Encounter for induction of labor Referral ID Status Reason Start Date Expiration Date Visits Re quested Visits Authorized [id number] 1 1 Encounter Details Date Type Department Care Team (Late st Contact Info) Description 08/06/2021 23:59 EDT Anesthesia Event [facility] [place] [facility] [address] [place], [place] [phone] Andrew Montague MD 111 [facility], [facility] [address] [place] [id number] Anesthesia Record Procedure Summary Procedure Name Responsible Anesthesiologist Anesthesia Start Time Anesthesia Stop Time LABOR CONSULT Events No events on file. Meds * [...] OR Notes * Anesthesia Preprocedure Evaluation - Andrew Montague MD - 08/06/2021 1320 EDT Anesthesia Preprocedure Evaluation Patient Medical History, [...] ??? Asthma, exercise induced ??? Autoimmune disorder ([facility]) ([facility]) Grave's disease ??? Depression was taking meds (can't remember what), stopped in 07/2016, no counselor ??? Gestational hypertension, third trimester 08/06/2021 ??? Herpes simplex virus (HSV) infection ??? Insulin controlled gestational diabetes mellitus (GDM) during 06/16/2021 ??? Mood disorder ([facility]) ([facility]) ??? Thyroid disease Relevant Problems [...] on filedocumented in this encounter Care Teams Inspector Exhaust Emissions Relationship Specialty Start Date End Date Ayla Solomon DO [facility] [facility] [address] [place] [address] PCP - General General Surgery 04/12/21 documented as of this encounter
--- OUTSIDE RECORDS SUMMARY | 2023-12-04 20:14 | XMS_ITS | Encounter Summary ---
Author Organization [facility] Address [address] [place] [address] Care Team Providers Care Senior Net Architect Name Role Phone Juanito Ayla Keagan LACY Primary Care Provider [phone] Reason for Visit * Reason Comments Non-stress Test Encounter Details Date Type Department Care Team (Late st Contact Info) Description 07/23/2021 11:00 EDT Office Visit [facility] Obstetrics & Midwifery - [facility] [address], [place] [id number] Insulin controlled gestational diabetes mellitus (GDM) in third trimester (Primary Dx); Obesity, Class III, BMI 40-49.9 (morbid obesity) (HCC) ([facility]); COVID-19 affecting in third trimester Social History Tobacco Use Types Packs/Day [...] Sign Reading Time Taken Comments Blood Pressure 100/68 07/23/2021 1218 EDT Pulse - - Temperature - - [...] Progress Notes * Itzel Guerrero MD - 07/23/2021 1100 EDT NST Report Baseline Heart Rate: 150 Accelerations: present Movement: present Decelerations: absent Contractions: absent Interpretation: reactive Itzel Guerrero MD 07/23/2021 12:39 documented in this encounter Plan of Treatment [...] diabetes mellitus (GDM) in third trimester- Primary Obesity, Class III, BMI 40-49.9 (morbid obesity) ([facility]) Morbid obesity COVID-19 affecting in third trimester documented in this encounter Additional Health Concerns Infection Onset Date Last Indicated Resolved Time COVID-19 07/14/2021 07/14/2021 07/25/2021 22:1 6 EDT documented as of this encounter Care Teams Senior Net Architect Relationship Specialty Start Date End Date Ayla Solomon DO [address] [place] [address] PCP - General General Surgery 04/12/21 documented as of this encounter
--- OUTSIDE RECORDS SUMMARY | 2023-12-04 20:14 | XMS_ITS | Encounter Summary ---
Author Organization [facility] Address [address] [place] [address] Care Team Providers Care Professional Advisor Name Role Phone Juanito Aylaflorence Boogie DO Primary Care Provider [phone] Reason for Visit * Reason Onset Date Comments Blood Glucose Review 07/29/2021 Encounter Details Date Type Department Care Team (Late st Contact Info) Description 07/29/2021 Telephone [facility] Obstetrics & Midwifery - [facility] [address], [place] [id number] Landon Joseph RN Blood Glucose Review Social [...] Yes 05/05/2019 documented as of this encounter Ordered Prescriptions Prescription Sig Dispensed Refills Start Date End Da te insulin pen needles 31G x 5/16 BD UltraFine Short. Uses 4 pen needles daily with insulin administration. 100 Each 3 07/29/2021 insulin aspart U-100 (NOVOLOG FLEXPEN U-100 INSULIN) 100 unit/mL (3 mL) injectable pen Inject 3 units into skin 15 minutes prior to breakfast and lunch and inject 5 units into skin 15 minutes prior to dinner as instructed. Total of 11 units daily. 9 mL 3 07/29/2021 08/08/2021 documented in this encounter Miscellaneous Notes * Telephone Encounter - Landon Joseph RN - 07/29/2021 1254 EDT Blood sugars received via My Chart from Tiny ([id number]) who is currently taking 15 units of NPH at bedtime and 3 units of Novolog with breakfast and lunch. Blood glucose log from 07/21-07/27: 2 / 7 Fasting >/= 95 2 / 7 2hr PP Breakfast >/= 120 1 / 7 2hr PP Lunch >/= 120 4 / 7 2hr PP Dinner >/= 120 Reviewed by MD Franklin who recommends adding in 3 units of Novolog with dinner. Remainder of insulin regimen may remain the same. Replied to patient's My Chart msg with MD advice. Pharmacy updated. Hard copy of blood sugar log sent to [facility]. LANDON JOSEPH RN 07/29/2021 12:54 documented in this encounter Plan of Treatment Not on file documented as of this encounter Goals Goal Patient Goal Type Associated Problems Recent Progress Patient-Stated? Author Weight Loss General Obesity, Class III, BMI 40-49.9 (morbid obesity) Marva Vaughn Note: Increased activity getting out doors with daughter documented as of this encounter Visit Diagnoses Not on filedocumented in this encounter Discontinued Medications Medication Sig Discontinue Reason Start Date End Da te insulin pen needles 31G x 5/16 BD UltraFine Short. Use with insulin pen to inject insulin at bedtime. 06/09/2021 07/29/2021 insulin aspart U-100 (NOVOLOG FLEXPEN U-100 INSULIN) 100 unit/mL (3 mL) injectable pen Inject 3 units into skin 15 minutes prior to breakfast and lunch as instructed. Total of 6 units daily. 07/15/2021 07/29/2021 documented as of this encounter Care Teams Professional Advisor Relationship Specialty Start Date End Date Ayla Solomon DO [facility] [place] [address] PCP - General General Surgery 04/12/21 documented as of this encounter
--- OUTSIDE RECORDS SUMMARY | 2023-12-04 20:14 | XMS_ITS | Encounter Summary ---
Author Organization [facility] Address [address] [place] [address] Care Team Providers Care Mechanical Design Engineer Name Role Phone Juanito Ayla Keagan LACY Primary Care Provider [phone] Reason for Visit * Reason Onset Date Comments Labs Only 01/26/2022 Encounter Details Date Type Department Care Team (Late st Contact Info) Description 01/26/2022 Telephone [facility] Endocrinology - [facility] [address] [place] [address] [address] [place], [place] [phone] Labs Only Social History Tobacco Use Types Packs/Day Years [...] in the Last Year Never true 11/07/2019 [place] Depression Scale Answer Date Recorded [place] Depression Scale Total 21 09/17/2021 The thought [...] Telephone Encounter - Natalia Mejía RN - 02/06/2022 1311 EST TSH and Free T4 labs ordered and efaxed to [facility]. SmartPill message sent. Natalia Mejía RN * Telephone Encounter - Niki Yin - 01/26/2022 1549 EST Patient wants to have labs drawn again for t3 and t4, could you please enter lab orders if appropriate? Patient hasn't been seen since 2019 and just scheduled a follow up with Dr. Nuñez. Patient's mother states the women's clinic says her recent T3 is high while her MyChart states it is low. Patient's mom states we can send labs to [facility] to be drawn. documented in this encounter Plan of Treatment [...] hypothyroidism documented in this encounter Care Teams Mechanical Design Engineer Relationship Specialty Start Date End Date Ayla Solomon DO [facility] [place] [address] PCP - General General Surgery 04/12/21 documented as of this encounter
--- OUTSIDE RECORDS SUMMARY | 2023-12-04 20:14 | XMS_ITS | Encounter Summary ---
Author Organization [facility] Address [address] [place] [address] Care Team Providers Care Rough Planer Tender Name Role Phone Ayla Solomon DO Primary Care Provider [phone] Reason for Visit * Reason Onset Date Comments Patient Outreach 12/15/2021 Encounter Details Date Type Department Care Team (Late st Contact Info) Description 12/15/[address] [address] Ayla Solomon, DO [address] [place], [place] [id number] Patient Outreach Social History Tobacco Use Types Packs/Day Years [...] in the Last Year Never true 11/07/2019 [place] Depression Scale Answer Date Recorded [place] Depression Scale Total 21 09/17/2021 The thought [...] encounter Miscellaneous Notes * Telephone Encounter - Margareth Jordan LPN - 12/15/2021 1315 EDT Spoke with patient, calling to confirm we are no longer her PCP office. Patient stated she is in the process of switching over to a doctors office in [facility]. Patient recently and has been receiving care at [facility]. MARGARETH JORDAN LPN 12/15/2021 13:20 documented in this encounter Plan of Treatment Not on file documented as of this encounter Goals Goal Patient Goal Type Associated Problems Recent Progress Patient-Stated? Author Weight Loss General Obesity, Class III, BMI 40-49.9 (morbid obesity) No Marva Hitchcock Note: Increased activity getting out doors with daughter documented as of this encounter Visit Diagnoses Not on filedocumented in this encounter Care Teams Rough Planer Tender Relationship Specialty Start Date End Date Ayla Solomon DO [address] [place] [address] PCP - General General Surgery 04/12/21 documented as of this encounter
--- OUTSIDE RECORDS SUMMARY | 2023-12-04 20:14 | XMS_ITS | Encounter Summary ---
Author Organization [facility] Address [address] [place] [address] Care Team Providers Care Sales Marketing Manager Name Role Phone Ayla Solomon DO Primary Care Provider [phone] Reason for Referral * Specialty Diagnoses / Procedures Referred By Contac t Referred To Contact Shefali Arredondo MD [address] [place] [address] Referral ID Status Reason Start Date Expiration Date Visits Re quested Visits Authorized Comments See your corrosion engineer in 2 and 6 weeks. Please call for an appointment. Reason for Visit * Auth/Cert Specialty Diagnoses / Procedures Referred By Contac t Referred To Contact Diagnoses Encounter for induction of labor Referral ID Status Reason Start Date Expiration Date Visits Re quested Visits Authorized [id number] 1 1 Encounter Details Date Type Department Care Team (Late st Contact Info) Description 08/06/2021 11:00 EDT - 08/08/2021 12:25 EDT Hospital Encounter [facility] [address] [place] [address] Unknown, Provider, Mena Hunt MD [address] [facility], [address] [place] [address] Dwayne Briggs MD [address] [place] [address] Encounter for induction of labor Discharge Disposition: Home or Self Care Social [...] Sign Reading Time Taken Comments Blood Pressure 125/71 08/08/2021 0800 EDT Pulse - - Temperature 36.2 ??C (97.2 ??F) 08/08/2021 0745 EDT Respiratory Rate 18 08/08/2021 0745 EDT Oxygen Saturation 94% 08/08/2021 0341 EDT Inhaled Oxygen Concentration - - Weight 127 kg (280 lb) 08/07/2021 0500 EDT Height 157.5 cm (5' 2) 08/07/2021 0500 EDT Body Mass Index 51.21 08/07/2021 0500 EDT documented in this encounter [...] No 08/06/2021 documented as of this encounter Discharge Summaries * Barry Guerrero MD - 08/08/2021 0640 EDT Department of SECURITY INFRASTRUCTURE ENGINEER Maternal Discharge Summary Information for the patient's : Henrry Cline [[id number]] Henrry Cline Maternal Name: Tiny Cline : 1995 Attending: Dwayne Briggs MD Admission: 08/06/2021 Discharge: 08/08/2021 Reason for Admission: Admission indication: Induction Principal/Final Diagnosis: Supervision of other normal Delivery Indications: Maternal Indications for delivery: Hypertension Gestational diabetes Indication for delivery: Not applicable Principal Procedure: Spontaneous Vaginal Delivery Secondary Procedures: First degree laceration repair Hospital Course: Tiny Cline is a 25 year old now who presented to L&D at 39w1d for IOL for gHTN diagnosed at 39w1d. Her was complicated by obesity with BMI 53, A2GDM, Gravesdisease s/p ablation on Synthroid, COVID in the third trimester, HSV outbreak at 36w with negative spec exam, and asthma. She had a CRB in that spontaneously expelled at 5.5 hours and pitocin. She had an epidural placed which was ineffective. A second epidural also did not cover her pain. She was AROMd for clear fluid and quickly progressed to complete. Second stage lasted 3 minutes, resulting indelivery of a viable female infant with APGARS of 9 and 10 at 1 and 5 minutes, weighing 3456g. Infant presented OA with one tight nuchal cord which it was delivered through. The 3VC was clamped and cut after a 60 second delay. The intact placenta delivered in 3 minutes. A small first degree laceration was noted and repaired with two figure of eight stitches of 3-0 vicryl. Fundus was firm, EBL 300cc. Mom and baby recovered on L&D before transfer to . The patient's course was uncomplicated. She obtained good pain control, tolerated a regular diet, was ambulating and voiding independently. Her lochia was within normal limits and she initiated . The patient was subsequently discharged on PPD# 1 with instructions to follow-up for routine care at 2 and 6 weeks. Hospital Problems: Active Hospital Problems Diagnosis Date Noted ??? *Supervision of other normal 05/23/2021 Problems: 1) A2GDM, on good control with [...] (daughter's bday) [] Breast Feeding Class [] Wind Tunnel Technician/Circumcision PP: [] EPDS [] Contraception [] Pap ??? Gestational hypertension, third trimester 08/06/2021 ??? Encounter for induction of labor 08/06/2021 ??? Obesity, Class III, BMI 40-49.9 (morbid obesity) ([facility]) 07/08/2018 ??? Asthma 01/08/2017 ??? Graves' disease 12/26/2014 Allergies: Lorabid [loracarbef] and Yeast, dried Medications during current : Medications Prior to Admission Medication Sig Dispense Refill Last Dose ??? albuterol 90 mcg/actuation inhaler Inhale 2 Puffs as directed every 4 hours as needed for Wheezing. 1 Inhaler 11 Past Week ??? atomoxetine (STRATTERA) 80 mg capsule Take 1 Cap by mouth daily. (Patient not taking: Reported on 05/23/2021) 30 Cap 3 Not Taking ??? doxylamine (UNISOM, DOXYLAMINE,) 25 mg tablet tablet Take 1 Tablet by mouth at bedtime as needed for Nausea. 28 Tablet 3 Past Week ??? insulin aspart U-100 (NOVOLOG FLEXPEN U-100 INSULIN) 100 unit/mL (3 mL) injectable pen Inject 3units into skin 15 minutes prior to breakfast and lunch and inject 5 units into skin 15 minutes prior to dinner as instructed. Total of 11 units daily. 9 mL 3 08/06/2021 ??? insulin NPH (NOVOLIN N) 100 unit/mL (3 mL) injectable pen Inject 15 Units into the skin at bedtime. 5 Each 3 08/05/2021 ??? insulin pen needles 31G x 5/16 BD UltraFine Short. Uses 4 pen needles daily with insulin administration. 100 Each 3 08/06/2021 ??? levothyroxine (SYNTHROID) 200 mcg tablet Take 1 Tablet by mouth daily. To be taken with a 50 mcg tablet for a total of 250 mcg PO daily. 90 Tablet 2 08/06/2021 ??? levothyroxine (SYNTHROID) 50 mcg tablet Take 1 Tablet by mouth daily. To be taken with a 200 mcg tablet for a total of 250 mcg PO daily. 90 Tablet 3 08/06/2021 ??? no122/iron/folic acid ( MULTI ORAL) Take by mouth. 08/05/2021 ??? valACYclovir (VALTREX) 500 mg tablet TAKE ONE TABLET BY MOUTH TWICE A DAY 10 Tab 1 08/05/2021 LABOR INFORMATION Labor Onset: Induced Labor Analgesia: Epidural, Amniotic Fluid Color: Clear Duration Rupture of Membranes: 0.00 hours 3.00 minutes DELIVERY INFORMATION Spontaneous Vaginal Delivery ; Delivery / Repair Anesthesia: Epidural, EBL: 300.00 Placenta: Method: Controlled Cord Traction Labor and Delivery Complications and/or Procedures: None INFORMATION Date: 08/07/2021 Time: 0118 Weight: 3456 g (7 lb 9.9 oz) Sex: female Apgars: 9 10 Immunizations indicated : None Clinical Issues Needing Follow-up: contraception Contraception Plan: Undecided at time of discharge Other: n/a Results Pending at Discharge: Test results still pending from this admission Procedure Component Value Units Date/Time SURGICAL PATHOLOGY [[id number]] Collected: 08/07/21 0342 Lab Status: In process Specimen: Tissue from Placenta Updated: 08/07/21 1535 Condition at Discharge: good Discharge Disposition: home Shefali Arredondo MD Family Medicine, PGY1 08/08/21 6:41 #[id number] [employer] Inpatient Attending Attestation: I have examined Tiny Cline myself, have reviewed her vitals, laboratory data, and chart history. I agree with the above assessment and plan as noted (otherwise I have inserted modifications in red). Plan for f/u as above. Still unsure re: contraception. BARRY GUERRERO MD documented in this encounter Medications at Time [...] TWICE A DAY 10 Tab 1 03/15/2020 levothyroxine (SYNTHROID) 200 mcg tablet Take 1 [...] 12/16/2020 02/16/2022 documented as of this encounter Ordered Prescriptions Prescription Sig Dispensed Refills Start Date End Da te polyethylene glycol 3350 (MIRALAX) 17 gram packet Take 17 g by mouth 2 times daily as needed (constipation). 08/08/2021 ibuprofen (MOTRIN) 800 mg tablet Take 1 Tablet by mouth every 8 hours as needed for Pain. 08/08/2021 calcium carbonate (TUMS) 200 mg calcium (500 mg) tablet,chewable Take 2 Tablets by mouth every 2 hours as needed for Heartburn or Indigestion. 08/08/2021 acetaminophen (TYLENOL) 500 mg tablet Take 2 Tablets by mouth every 8 hours as needed for Pain. 08/08/2021 documented in this encounter Discharge Disposition Disposition Code Departure Means Destination Home or Self Residential documented in this encounter Progress Notes * Ten Reeves, MARY - 08/08/2021 1222 EDT Initial Case Management/Social Work Assessment and Discharge Plan/Readmission Risk Assessment REASON FOR ADMISSION: Supervision of other normal Patient understands reason for admission: Yes PATIENT INFO VERIFIED: Contact Info, Address LIVING ARRANGEMENTS AND ACCESSIBILITY ISSUES: Living Arrangements: MOB lives with her s.o. and her 4yo daughter in [place], [place]. What in home social supports are available to the patient? Significant other. Is 21/09 care available? NA ADVANCED DIRECTIVES, POA &/or COLST IN PLACE: Healthcare Directive: No, patient does not have advance directive for healthcare treatment Information Provided on Healthcare Directives: No Information on Healthcare Directives Requested: No DIRECTIVES FOR FINANCES: TRANSPORTATION: Transportation: Significant other. Transportation Additional Details: FOB will transport MOB and infant home. Reviewed car seat tech information prn, and reviewed parking pass validation. Patient expects to be discharged to: Home with infant. CULTURAL, QUAKER and/or LANGUAGE factors affecting health care/discharge planning: Spiritual/Cultural Requests: None Insurance Information: Medical Insurance: Yes Type of insurance: Medicaid Medicaid Type: Community Referred to patient financial services: No Nutrition: DISCHARGE RISK ASSESSMENT: Total # selected above: Tentative plan to address the risk of re-hospitalization for those at HIGH MODERATE RISK: RAPT TOOL: Patient expects to be discharged to: Home with infant. SBIRT: FUNCTIONAL STATUS: Activities patient requires assistance: None Assistive Devices: None COMMUNITY RESOURCES/SUPPORTS: Primary Care Provider: Ayla Solomon PCP Verified: Specialists: None (MOB to follow up with OB). Type of Home Health Services: None, MOB declined home health services at this time. DME Provider: None. Pharmacy: [id number] - [place] [phone] Home Health: None, MOB declined home health services at this time. Other: [facility], [facility] (Provided MOB with SS verification form for [address] [place] [address]) [facility] TRANSITION PLAN: MOB to d/c home today with . MOB reportedly lives with her 4yodaughter and her s.o. (FOB). [facility]. Pt plans to order breast pump through her insurance (Medicaid) and is aware that she will be provided a script for the breast pump at d/c. Offered home health services, and pt declined at this time but is aware that she can always access home health through [facility] or connect with services prn through resources informationprovided in d/c packet. TEN REEVES, MPH, [employer]INTER [employer]UM, pager #[phone], 08/08/2021 12:22 * Shefali Arredondo MD - 08/08/2021 4271 EDT Progress Note Chief Complaint: PPD#1 s/p Subjective: Doing well, pain well controlled. Would like to go home today. Tolerating regular diet without nausea/vomiting, ambulating and voiding independently without difficulty. mild amount of lochia, decreasing. Breast feeding going well. The patient denies CP/SOB/N/V/TRIVEDI/Dizziness/F/C/LE pain. Objective: BP 130/73 (BP Cuff Location: Left arm, BP Patient Position: Semi fowlers) Temp 36.7 ??C (98.1 ??F) (Temporal) Resp 16 Ht 157.5 cm (62) Wt (!) 127 kg (280 lb) LMP 10/24/2020 SpO2 94% Unknown BMI 51.21 kg/m?? Intake/Output Summary (Last 24 hours) at 08/08/2021 0556 Last data filed at 08/07/2021 1218 Gross per 24 hour Intake 500 ml Output 1410 ml Net -910 ml Gen: NAD, lying comfortably in bed. Resp: breathing comfortably on room air CV: RR Abd: soft, non-tender, fundus firm @1 cm below umbilicus Ext: WWP, nontender. Assessment/Plan: Tiny Cline is a 25 y.o. PPD#1 s/p at 39w2d. Patient is recovering well, AVSS. -Continue routine post- care. Continue current pain regimen. Encourage ambulation, PO intake,support BF. Nothing in the vagina for 6 weeks. -Contraception: Contraception options discussed with patient, patient expressed understanding and intends to choose by post- visit. Undecided at time of discharge. - depression: Discussed signs and symptoms, instructions to seek help; patient expressed understanding. -fasting glucose for A2GDM -Likely d/c home today Shefali Arredondo MD Family Medicine, PGY1 08/08/21 5:56 #[id number] [employer] * Ansley León, ORULA - 08/07/2021 1043 EDT Attempted to see pt in her room on B7 this morning around 1030, pt was in the bathroom at the time.Will attempt to see at a later time. Ansley León room service server [id number] Pager [phone] * Maranda Gorman MD - 08/06/2021 4045 EDT L&D Progress Note Rh pos/GBS neg IUP @ 39w1d, IOL gHTN S: Epidural replaced, still in pain with contractions. O: BP 135/81 Temp 35.9 ??C (96.6 ??F) (Tympanic) Resp 22 LMP 10/24/2020 SpO2 97% FHT: Baseline 115, moderate variability, positive accels, no decels; Category I tracing Hatfield: 4ctx/10min SVE: 5/90/-1, AROM for clear fluid A/P: 25 y.o. @ 39w1d IOL for gHTN. Category I tracing. Labor: S/p CRB expelled at 5 1/2 hrs 1530 Pitocin started, currently at 17mU 2300 5/90/BBW -> AROM at 0000 Continue Pitocin titration. Expect . Plan for recheck in 4 hours. -FWB: Cat I FHT, cEFM -Pain: s/p epidural x2 -PPH risk: medium (IOL, obesity, GDM) -Global: Rh pos, GBS neg Maranda Gorman MD 08/06/21 23:58 Obstetrics & Gynecology, PGY-1 Pager #[phone] * Maranda Gorman MD - 08/06/2021 2322 EDT L&D Progress Note Rh pos/GBS neg IUP @ 39w1d, IOL gHTN S: Epidural not working well O: BP 135/81 Temp 35.9 ??C (96.6 ??F) (Tympanic) Resp 22 LMP 10/24/2020 SpO2 97% FHT: Baseline 125, moderate variability, positive accels, no decels; Category I tracing Hatfield: 4ctx/10min SVE: /BBW A/P: 25 y.o. @ 39w1d IOL for gHTN. Category I tracing. Labor: S/p CRB expelled at 5 1/2 hrs 1530 Pitocin started, currently at 17mU 2300 /BBW Continue Pitocin titration. Plan to have anesthesia reassess epidural and once more comfortable AROM. -FWB: Cat I FHT, cEFM -Pain: s/p epidural -PPH risk: medium (IOL, obesity, GDM) -Global: Rh pos, GBS neg Maranda Gorman MD 08/06/21 23:27 Obstetrics & Gynecology, PGY-1 Pager #[phone] * Aneudy Gaffney - 08/06/20212103 EDT L&D Progress Note Rh pos/GBS neg IUP @ 39w1d, IOL gHTN S: Currently reports improvement in symptoms and less pain post epidural. Patient still remarks increasing frequency, and duration of contractions. O: BP (!) 151/84 Temp 35.9 ??C (96.6 ??F) (Tympanic) Resp 18 LMP 10/24/2020 SpO2 97% FHT: Baseline 120, moderate variability, positive accels, no decels; Category I tracing Hatfield: 2/10 SVE: deferred A/P: 25 y.o. @ 39w1d IOL for gHTN. Category I tracing. Labor: 1400 CRB placed 1530 Pitocin started, currently at 3mU Continue Pitocin titration. Intermittent gentle traction on CRB. -FWB: Cat I FHT, cEFM -Pain: Coping well, anesthesia has seen -PPH risk: medium (IOL, obesity, GDM) -Global: Rh pos, GBS neg Aneudy Gaffney Pager #[phone] [employer] 08/06/2021 21:07 * Manuel Martinez RN - 08/06/20212023 EDT 1925-Assumed care of an A+Ox4 female from Nemo Ramirez RN. Pt admitted for IOL for cHTN and A2GDM. 39w1d Rh +, GBS -. . Allergies to Lorabid and yeast. Hatfield and EFM applied. Pt denies blurred vision, h/a, SOB, epigastric pain. Pt denies vaginal bleeding and leaking. Pt has history of A2GDM, cHTN, andsports induced asthma with inhaler use this especially during Covid + period in mid June 2021. + movement. Lungs CTA, +2 edema BLE, pitting. Partner Alexys at bedside for support. 1941-CRB expelled with gentle traction 1999-Pt requesting epidural. 2016-sitting for epidural 2031-Test dose neg 2034-repositioned to left side lying 2127-repositioned to right side lying. 2134-continued complaints of back and anterior perineum pain. 2137-MD Dixon notified. Returned to room to bolus pt with bag mix. 2209-pt continues to have back pain and anterior perinuem pain. MD Dixon paged for reevaluation. 2229-Decision made to place second IV. 224-SVE MD Gorman: /ELIANE station due to bulging bag of fluid. 2250-Sitting for epidural 2312-Test dose neg. 2354-AROM for clear fluid. 0110-Pt continues to have back, abdomen, and right sided pain. Pt states she feels need to push. 0115-SVE MD Carrasco: /+2 0117-pushing. 0118- of baby girl. 0310-30min page to B7. 0342-Transfer to B7. * Dwayne Linares MD - 08/06/2021 1637 EDT L&D Progress Note Rh pos/GBS neg IUP @ 39w1d, IOL gHTN S: Patient reports increasing intensity, frequency, and duration of contractions. At their peak, she rates the contraction pain at 8/10. She endorses movement, denies LOF or vaginal bleeding. O: BP 134/90 Temp (!) 35.3 ??C (95.5 ??F) (Tympanic) Resp 18 LMP 10/24/2020 FHT: Baseline 120, moderate variability, positive accels, no decels; Category I tracing Hatfield: 210 SVE: deferred A/P: 25 y.o. @ 39w1d IOL for gHTN. Category I tracing. Labor: 1400 CRB placed 1530 Pitocin started, currently at 3mU Continue Pitocin titration. Intermittent gentle traction on CRB. -FWB: Cat I FHT, cEFM -Pain: Coping well, anesthesia has seen -PPH risk: medium (IOL, obesity, GDM) -Global: Rh pos, GBS neg Tesfaye Herbert 08/06/2021 16:38 I was present with the medical student for the history, exam, and medical decision making documented by the student. I have edited the student note as appropriate. Dwayne iLnares MD 08/06/21 16:59 OBGYN PGY1 Pager #[phone] * Dwayne Linares MD - 08/06/2021 1410 EDT L&D Progress Note Rh pos/GBS neg IUP @ 39w1d, IOL gHTN S: Feeling ready for CRB O: BP 129/85 Temp 35.9 ??C (96.6 ??F) (Tympanic) Resp 18 LMP 10/24/2020 FHT: Baseline 130, mod variability, pos accels, neg decels; Category I tracing Hatfield: 2-3 SVE: deferred, CRB placed via speculum exam A/P: 25 y.o. @ 39w1d here for IOL gHTN. Category I tracing. Labor: 1400 CRB placed Plan to start Pitocin d/t contraction frequency and a few late decelerations on arrival. -FWB: Cat I, cEFM -Pain: comfortable, anesthesia consult -PPH risk: medium -Global: Rh pos, GBS neg Dwayne Linares MD 08/06/2021 14:10 * Dana Antony RN - 08/06/2021 1406 EDT Ultrasound dynamic guidance was used for peripheral line insertion. Name of cosmetics counter manager: Jolie Antony RN LDAINFO BLOCK Peripheral IV 08/06/21 1330 Right;Posterior;Lateral Forearm (Active) 08/06/21 1330 Forearm Dressing Change Due: 08/13/21 Size (Gauge): 18 Catheter Length (Inches): 1.75 Catheter Brand: B Zeng Introcan Orientation: Right;Posterior;Lateral Site: Inserted by: Inserted by RN;Ultrasound Guided Insertion attempts: 1 Local Anesthetic: None Skin Antisepsis: 2% Chlorhexidine with IPA Removal Reason : Post Removal Assessment/Care: Size (Gauge): Catheter Length: IV Change Due: Orientation: Criteria to continue met? (chart all reasons) Continuous IV fluids 08/06/21 1400 Date Dressing Changed 08/06/21 08/06/21 1400 Dressing date clearly marked on PIV site? Yes 08/06/21 1400 Site Assessment Clean/Dry/Intact 08/06/21 1400 Line Status Blood returned;Capped;Flushed 08/06/21 1400 Dressing Status/Care Changed/New 08/06/21 1400 Dressing Type Securing Device;Transparent 08/06/21 1400 Peripheral IV 08/06/21 1345 Right;Posterior;Proximal Forearm (Active) 08/06/21 1345 Forearm Dressing Change Due: 08/13/21 Size (Gauge): 20 Catheter Length (Inches): 1.75 Catheter Brand: B Zeng Introcan Orientation: Right;Posterior;Proximal Site: Inserted by: Inserted by RN;Ultrasound Guided Insertion attempts: 1 Local Anesthetic: None Skin Antisepsis: 2% Chlorhexidine with IPA Removal Reason : Post Removal Assessment/Care: Size (Gauge): Catheter Length: IV Change Due: Orientation: Criteria to continue met? (chart all reasons) Continuous IV fluids 08/06/21 1400 Date Dressing Changed 08/06/21 08/06/21 1400 Dressing date clearly marked on PIV site? Yes 08/06/21 1400 Site Assessment Clean/Dry/Intact 08/06/21 1400 Line Status Blood returned;Capped;Flushed 08/06/21 1400 Dressing Status/Care Changed/New 08/06/21 1400 Dressing Type Securing Device;Transparent 08/06/21 1400 Patient response: Tolerated well Patient education: At bedside Additional study information (vein depth, vein size, compressibility, patency, in-plane vs. [id number], surrounding structures and post procedure available on the images, accessed via the imaging tab.) DANA ANTONY RN 08/06/2021 * Nemo Dowell RN - 08/06/2021 1113 EDT 1105- Pt admitted and oriented to room 2, sent from office for monitoring and possible induction d/t elevated BPs. Pt with A2GDM, takes Aspart with meals and NPH at bedtime. Per Dr Michaels, will check AC BGs and assess need for insulin while in labor. Hx Graves disease, 250mcg synthroid daily (last took this am) [address] Linares. 80cc in uterus 20cc vaginal. Pt tolerated well 1522 Pitocin started 0 BP 1151/84, Dr Gorman aware documented in this encounter H&P Notes * Dwayne Linares MD - 08/06/2021 1059 EDT Department of Obstetrics History & Physical Admit Date: 08/06/2021 CC: IOL Admission indication: Induction Maternal transport/Outside delivery: No HPI: Tiny Cline is a 25 y.o. at 39w1d by 1st trimester US who presents for IOL for gHTN after second MR BP today in the office. Patient states that she is feeling well overall. SVE in clinic 1cm. +FM Denies contractions, LOF, or VB. Also denies TRIVEDI, VC, RUQ pain, n/v, SOB c/b: -COVID +07/14 (vaccinated not boosted) -hypothyroid s/p ablation: follows with endocrine, last TSH 07/30/21 1.6, currently on levothyroxine 250mcg daily -A2GDM: started 5u NPH at 30wga, currently on NPH 15 units nightly and mealtime 07/03/, EFW at 35wksAGA -asthma -HSV on valtrex, outbreak at 36 wks, asymptomatic since -obesity: preconception BMI 49 Review of Systems: see HPI Current Complications: Diabetes: Gestational insulin Hypertension: Gestational hypertension Thyroid disease: Hyperthyroid Preeclampsia prevention: Aspirin Testing: Genetic screening: NIPT Genetic procedures: None Dx requiring follow-up: None procedures: None procedures: None Selective reduction: None Medication Exposure: No data recorded Labs: Rh pos/ Antibody screen neg / Rubella Imm / Varicella imm / RPR NA / Gonorrhea neg / Chlamydia neg / Hepatitis B neg/ Hepatitis C NA / HIV neg / 1hr GTT elevated / 3hr GTT 117/203/178/172 / GBS neg Ultrasound 35w4d: cephalic, posterior fundal placenta, normal AF, EFW 2801g, 52%ile, AC 49%ile 28wk: EFW 36%ile, AC 68%ile, normal anatomy FOB History: No data recorded OB History Para Term AB Living 2 1 1 0 0 1 SAB TAB Ectopic Multiple Live Births 0 0 0 0 1 # Outcome Date GA Lbr Eduardo/2nd Weight Sex Delivery Anes PTL Lv 2 Current 1 Term 08/08/17 40w3d 11:38 / 01:05 3834 g (8 lb 7.2 oz) F EPI WEI Previous Complications: No data recorded Past Medical History Past Surgical History Past Medical History: Diagnosis Date ??? ADD [...] CHOLECYSTECTOMY ??? LIPOMA RESECTION 2017 on abdomen Past Gynecological History Social History Last PAP 08/14/2020 wnl Social History Tobacco Use ??? Smoking status: Former Smoker Packs/day: 0.50 Years: 5.00 Pack years: 2.50 Types: Cigarettes ??? Smokeless tobacco: Never Used ??? Tobacco comment: quit prior to dating ultrasound Substance Use Topics ??? Alcohol use: No Alcohol/week: 8.0 standard drinks Types: 7 Glasses of wine, 1 Standard drinks or equivalent per week Comment: no drinking since dating ultrasound reports no history of drug use. Medications Allergies Medications Prior to Admission Medication Sig Dispense Refill Last Dose ??? albuterol 90 mcg/actuation inhaler Inhale 2 Puffs as directed every 4 hours as needed for Wheezing. 1 Inhaler 11 Past Week ??? atomoxetine (STRATTERA) 80 mg capsule Take 1 Cap by mouth daily. (Patient not taking: Reported on 05/23/2021) 30 Cap 3 Not Taking ??? doxylamine (UNISOM, DOXYLAMINE,) 25 mg tablet tablet Take 1 Tablet by mouth at bedtime as needed for Nausea. 28 Tablet 3 Past Week ??? insulin aspart U-100 (NOVOLOG FLEXPEN U-100 INSULIN) 100 unit/mL (3 mL) injectable pen Inject 3units into skin 15 minutes prior to breakfast and lunch and inject 5 units into skin 15 minutes prior to dinner as instructed. Total of 11 units daily. 9 mL 3 08/06/2021 ??? insulin NPH (NOVOLIN N) 100 unit/mL (3 mL) injectable pen Inject 15 Units into the skin at bedtime. 5 Each 3 08/05/2021 ??? insulin pen needles 31G x 5/16 BD UltraFine Short. Uses 4 pen needles daily with insulin administration. 100 Each 3 08/06/2021 ??? levothyroxine (SYNTHROID) 200 mcg tablet Take 1 Tablet by mouth daily. To be taken with a 50 mcg tablet for a total of 250 mcg PO daily. 90 Tablet 2 08/06/2021 ??? levothyroxine (SYNTHROID) 50 mcg tablet Take 1 Tablet by mouth daily. To be taken with a 200 mcg tablet for a total of 250 mcg PO daily. 90 Tablet 3 08/06/2021 ??? no122/iron/folic acid ( MULTI ORAL) Take by mouth. 08/05/2021 ??? valACYclovir (VALTREX) 500 mg tablet TAKE ONE TABLET BY MOUTH TWICE A DAY 10 Tab 1 08/05/2021 Allergies Allergen Reactions ??? Lorabid [Loracarbef] Nausea And Vomiting ??? Yeast, Dried Nausea And Vomiting If consumes large amounts will develop N/V Objective: Patient Vitals for the past 8 hrs: BP Heart Rate Resp Temp 08/06/21 1127 127/84 87 BPM 18 35.9 ??C (96.6 ??F) General: NAD Cardiovascular: RRR Respiratory: CTAB Abdomen: soft, non tender, gravid Extremities: WWP Physical Lie: Longitudinal Presentation: Vertex FHT: 120 baseline. mod variability, + accels, late decels; Cat 2 tracing. TOCO: 2/10 min SSE: no sign of HSV lesion SVE: 1cm in clinic today Assessment/Problems/Plan: Tiny Cline is a 25 y.o. at 39w1d by 1st trimester US presenting for IOL for gHTN. FHT cat 1. AVSS IOL -admit, place 2 IVs, CBC, T&S -plan to start IOL with CRB and pitocin Pitocin Bundle: Induction 39w1d EDC: Estimated Date of Delivery: 08/12/21 Indication: gHTN IOL Prior Uterine Scar: no EFW: 8lb Assessment of Pelvic Adequacy: proven to 8lb Presentation: cephalic Melendez Score: 2 Active T&S? 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 Debora Michaels MD Case Operator PGY-2 Pager [phone] & Dwayne Linares MD 08/06/21 14:10 OBGYN PGY1 Pager #[phone] Associated attestation - Dwayne Briggs MD - 08/06/2021 1432 EDT Attestation: I performed or was present during the pringle or critical portions of the visit and participated in the management of the patient on 08/06/2021. I agree with the findings and plan of care documented in the resident's/fellow's note. Dwayne Briggs MD 08/06/2021 14:31 documented in this encounter Miscellaneous Notes * Plan of Care - Dwayne Loja RN - 08/08/2021 1209 EDT D: Stable PP pt. discharged to home/self care. A: Demonstrated/assisted patient to obtain/watch discharge videos via [employer]. certificate, and, and parentage form completed/collected. Offered home health referral. Patient given opportunity to ask questions. R: Pt verbalized/demonstrated understanding of teaching, has completed the d/c videos. Pt home health referral Declined. Patient/Family questions answered and AVS signed/collected.Discharged home with & FOB @1225 . DWAYNE LOJA RN * Plan of Care - Socorro Wang RN - 08/08/2021 2674 EDT Problem: Daily Care Plan Goals Goal: Care Plan Documentation Outcome: Ongoing Flowsheets (Taken 08/07/2021 2331) Area of Focus: Sleep Goal This Shift: Rest throughout the night Problem: Lifecycle: : Goal: Chance of risk for complications during the period will decrease Outcome: Ongoing D: Second for couple. A: Cluster care to promote rest and family bonding. Reduce unnecessary stimuli. R: Family bonding noted, able to rest between cares/feeds. * Plan of Care - Ghazal Joe - 08/07/2021 1353 EDT Problem: Daily Care Plan Goals Goal: Care Plan Documentation Flowsheets (Taken 08/07/2021 0813) Area of Focus: Pain/ Comfort Goal This Shift: pt will have less pain Note: Data: Pt delivered 7.9 lb baby girl yesterday, spontaneous vaginal delivery. She has a history of gestational diabetes, gestational hypertension and Graves disease. She is reporting pain as a 3/10 currently and noted she was in a great deal of pain last night as the epidural was unsuccessful in relieving pain during labor. Action: Worked with pt on throughout the day, and monitored pain. Pt is ambulating regularly to the bathroom and is reporting the pain in improving. She is knowledgeable about and has no problems with cracking or discomfort. Baby is quite sleepy and mom has made several attempts to feed her throughout the day, but she has not been able to stay awake to feed. Medicated for pain with Tylenol and Motrin. Response: Pt is resting comfortably and reporting pain improved. Baby had a small feed, but mom would still like her to have a longer feed soon. Ghazaledith Joe 08/07/2021 13:39 * L&D Delivery Note - Maranda Gorman MD - 08/07/2021 0544 EDT Delivery Information Tiny Clien is a 25 y.o. at 39w1d delivered by Spontaneous Vaginal Delivery . Henrry Cline [phone] at Gestational Age: 39w2d, Delivered by Spontaneous Vaginal Delivery , Weighed 3456 g (7 lb 9.9 oz), 9 /10 , Sent to With parent [facility] after delivery. Maternal: Delivery Plan Outcome Planned home ? Not planned External cephalic version attempt indicated? Not indicated Delivery as waterbirth? No PRABHAKAR after : Not applicable Delivery Indications Maternal Indications for delivery/comments: Hypertension Gestational diabetes Indications for delivery/comments: Not applicable Intrapartum Medication Intrapartum preeclampsia: No Intrapartum Mg: No Intrapartum Mg Indication: N/A Labor Labor onset: Induced Cervical ripening/induction agent: Balloon;Oxytocin;AROM Labor augmentation: None Augmentation indication/comments: N/A Sepsis Risk Scores (based on CDC incidence of 0.06/999 live births) Calculated Risk at Score: 0.03 Adjusted Score (Well Appearing): 0.01 Adjusted Score (Equivocal): 0.14 Adjusted Score (Clinical Illness): 0.60 Sepsis Risk Factors used in score calculation Gestational Age: 39w, 2d Mother's max temp within 12 hours prior to delivery: 36.4 ??C (97.5 ??F) Length of Rupture of Membranes: 1.4 Hours Maternal GBS Status: Negative Intrapartum Antibiotics: No Antibiotics, or Any antibiotics < 2 Hours prior to Other Intrapartum Infection Factors PROM >= 18 Hours: N/A Maternal Fever >= 38 C: N/A Maternal Tachycardia > 100 bpm: N/A Tachycardia > 160 bpm: N/A Uterine Tenderness: N/A Foul Odor of Amniotic Fluid: N/A Intra-Amniotic Infection N/A HIV Status/Treatment: Not indicated Hepatitus B Surface Antigen: Negative Syphilis: Negative Assessment monitoring: Contiunous - External heart rate characteristics/comments: Cat 1 demise: N/A Anesthesia Labor analgesia: Epidural, Delivery anesthesia: Epidural, Adjunctive analgesia: None Anesthetic complications: Failed epidural, Additional comments: Maternal Delivery Delivery type: Spontaneous Vaginal Delivery Presentation: Vertex Position: BROOKE indication: Forceps Attempted: No Vacuum Attempted: No Operative Vaginal Delivery Indication: N/A Station - Initial Application: N/A Details of Shoulder Dystocia (if applicable) Dystocia Present? No Maneuvers Performed (if applicable) Placenta Delivered: 08/07/2021 1:22 Delivery method: Controlled Cord Traction Morphology: Normal Disposition: Refrigerator Cord Details Vessels: 3 Vessels Complications: Nuchal Nuchal intervention: Nuchal cord description: tight Cord around: neck Number of loops: 1 Gases Sent? No Cord Blood Sent: Stem cell collection (by )? No Comments: Lacerations/Episiotomy Laceration Repaired? Perineal: 1st Yes Periurethral: Labial: Sulcus: Vaginal: Cervical: Episiotomy: None Indication: Repair suture: 3-0 Vicryl Procedures Additional Procedures: None Hemorrhage (if applicable) hemorrhage: None Blood Loss Mother: Tiny Cline Nichole #[phone] Start of Mother's Information Delivery Blood Loss 08/06/21 1318 - 08/07/21 0540 [facility] Encounter 300 mL Total 300 mL End of Mother's Information Mother: Tiny Cline #[id number] Uterotonics/PPH Procedures: Uterine massage, Oxytocin, Blood Products Transfused: (if applicable) Labor Length Duration of 1st Stage: hours minutes Duration of 2nd Stage: 0 hours 3 minutes Duration of 3rd Stage: 0 hours 3 minutes Duration of Cord Clamp Delay: 60 seconds Precipitous Labor (<3 hours): No Prolonged Labor (>20 hours): No [place]: Date of : 08/07/2021 Time of : 117 Sex: female Weight (grams): 3456 g (7 lb 9.9 oz) Length (in): 18.5 Head circumference (in): 13.386 Observed anomalies, comments: Meconium Present at Delivery: No (<37 wks): No Late (34-37 wks): No Steroid Course: Not indicated Indication: N/A PPROM Gestational Age: N/A APGARS Totals: 9 /10 /-/-/- Resuscitation Resuscitation: None Delivery Personnel Delivering Clinician: DWAYNE BRIGGS Additional Personnel: MURALI CARRASCO;MANUEL MARTINEZ;VINNY MCKEON;MARANDA GORMAN;ANTONIO CARSON ROM Duration: (Delivered) 1h 24m Induction Duration (if applicable): Labor and Delivery comments: Tiny Cline is a 25 year old now who presented to L&D at 39w1d for IOL for gHTN diagnosed at 39w1d. Her was complicated by obesity with BMI 53, A2GDM, Graves disease s/p ablation on Synthroid, COVID in the third trimester, HSV outbreak at 36w with negative spec exam, and asthma. She had a CRB in that spontaneously expelled at 5.5 hours and pitocin. She had an epidural placed which was ineffective. A second epidural also did not cover her pain. She was AROMd for clear fluid and quickly progressed to complete. Second stage lasted 3 minutes, resulting in delivery of a viable female infant with APGARS of 9 and 10 at 1 and 5 minutes, weighing 3456g. Infant presented OA with one tight nuchal cord which it was delivered through. The 3VC was clamped and cut after a 60 second delay. The intact placenta delivered in 3 minutes. A small first degree laceration was noted and repaired with two figure of eight stitches of 3-0 vicryl. Fundus was firm, EBL 300cc. Mom and baby recovered on L&D before transfer to . Maranda Gorman MD 08/07/21 5:44 Obstetrics & Gynecology, PGY-1 Pager #[phone] Associated attestation - Dwayne Briggs MD - 08/07/2021 0636 EDT Attestation statement: I performed or was present during the entire delivery. I agree with the findings and plan of care documented in the resident's/fellow's note. documented in this encounter Plan of Treatment Scheduled Referrals Name Type Priority Associated Diagnoses Order Schedule PROVIDER FOLLOW-UP INSTRUCTIONS Outpatient Referral Routine/Next Available Ordered: 08/08/2021 documented as of this encounter Goals Goal Patient Goal Type Associated Problems Recent Progress Patient-Stated? Author Weight Loss General Obesity, Class III, BMI 40-49.9 (morbid obesity) No Marva Hitchcock Note: Increased activity getting out doors with daughter documented as of this encounter Procedures Procedure Name Priority Date/Time Associated Diagnosis Comments POCT GLUCOSE, INTERFACED Routine 08/08/2021 6:31 EDT SURGICAL PATHOLOGY Routine 08/07/2021 3: 42 EDT POCT GLUCOSE, INTERFACED Routine 08/06/2021 21:09 EDT POCT GLUCOSE, INTERFACED Routine 08/06/2021 18:44 EDT POCT GLUCOSE, INTERFACED Routine 08/06/2021 14:07 EDT FIBRINOGEN Routine 08/06/2021 13:36 EDT URIC ACID Routine 08/06/2021 13:34 EDT ALT Routine 08/06/2021 13:34 EDT AST Routine 08/06/2021 13:34 EDT LDH Routine 08/06/2021 13:34 EDT CREATININE Routine 08/06/2021 13:34 EDT TYPE AND SCREEN Routine 08/06/2021 13:33 EDT COMPLETE BLOOD COUNT STAT 08/06/2021 13:32 EDT POC US VAT LINE PLACEMENT Routine 08/06/2021 12:56 EDT PROTEIN/CREATININE RATIO, URINE Routine 08/06/2021 12:00 EDT POCT GLUCOSE, INTERFACED Routine 08/06/2021 11:56 EDT documented in this encounter Results * POCT GLUCOSE, INTERFACED (08/08/2021 6:31 EDT) Glucose, POC 86 70 - 100 mg/dL 08/08/2021 6:32 EDT [facility] HN LAB POC COMMENT (GLUCOSE) Test Performed by Nursing Services 08/08/2021 6:32 EDT [facility] Blood CAPILLARY BLOOD / Unknown 08/08/2021 6:31 EDT 08/08/2021 6:32 EDT Shefali Arredondo MD POINT OF CARE TEST O RDERABLES [facility] [address] [place] [address] * SURGICAL PATHOLOGY (08/07/2021 3:42 EDT) Note to Patient The following pathology results have been interpreted by your pathologist and may be available to you before your health provider has had the opportunity to review them. Please allow time for your provider to receive these results and explore management options, if applicable. 08/19/2021 7:59 [facility] Final Diagnosis PLACENTA, 39 1/7 WEEKS, VAGINAL DELIVERY: - Patel placenta, 462 grams (25-50th percentile for given gestational age) - Placental disk with appropriate villous maturation -Small intervillous hematomas - membranes with no significant pathologic abnormality - Mildly hypercoiled 3 vessel umbilical cord 08/19/2021 7:59 [facility] Attestation By the signature below, the attending physician certifies that they have 1) personally conducted a gross and/or microscopic examination of the described specimen(s), and/or personally interpreted the results of laboratory testing of the described specimen(s), and 2) personally rendered or confirmed the above diagnosis. 08/19/2021 7:59 [facility] at 0759 Clinical History Covid in preg, third tri 08/19/2021 7:59 [facility] Gross Description A. Received fresh labelled with proper patient identification (initials B, K) and placenta is an intact patel placenta. The 42 cm in length trivessel umbilical cord is eccentrically inserted 3.0 cm from the nearest disc margin. The cord is dull aguirre-white, averages 1.0 cm in diameter, and contains 4 coils per 10 cm. The marginally inserted membranes are complete, show diffuse thickening, and vary from friedman-pink to aguirre. The point of rupture lies 4.0 cm from the nearest disc margin. The 462 g disc (trimmed, formalin fixed) measures 7 16.0 x 14.0 x 3.8 cm. The surface is aguirre-blue with a dispersed vascular pattern. There are no lesions present on the surface. The cotyledons are well demarcated and intact. The basal plate is not thickened. Areas of indentation or adherent blood clot are not identified. Sections through the disc tissue show few scattered layer friedman lesions measuring up to 1.7 cm in greatest dimension. The lesions involve less than 5 % of the total disc volume. The remaining cut surfaces are spongy red-brown. [employer]roleum Production Engineer sections are submitted as follows: BLOCK PRINGLE A1- membrane roll and cross-section of end of cord A2- membrane roll and cross-section of cord 5 cm from insertion site A3- full thickness section of placental disc adjacent to umbilical cord insertion site A4-A5 and A6-A7- two full thickness sections of central 2/3 of placental disc, each bisected A8- section largest disc lesion IBETH MENARD(ASCP) 08/08/2021 16:51 08/19/2021 7:59 EDT [facility] Performing Lab [facility] 08/19/2021 7:59 EDT [facility] Scanned Images 08/19/2021 7:59 EDT [facility] Tissue ENTIRE PLACENTA / Unknown 08/07/2021 3:42 EDT 08/07/2021 15:35 EDT Murali Carrasco MD PATHOLOGY ORDERABLES Performing Organization Address City/[facility]/ZIP Co de Phone Number [facility] [address] [place] [address] * (ABNORMAL) POCT GLUCOSE, INTERFACED (08/06/2021 21:09 EDT) Glucose, POC 102(H) 70 - 100 mg/dL 08/06/2021 21:10 EDT [facility] HN LAB POC COMMENT (GLUCOSE) Test Performed by Nursing Services 08/06/2021 21:10 EDT [facility] Blood CAPILLARY BLOOD / Unknown 08/06/2021 21:09 EDT 08/06/2021 21:09 EDT Dwayne Briggs MD POINT OF CARE TEST O RDERABLES [facility] [address] [place] [address] * POCT GLUCOSE, INTERFACED (08/06/2021 18:44 EDT) Glucose, POC 81 70 - 100 mg/dL 08/06/2021 18:46 EDT [facility] HN LAB POC COMMENT (GLUCOSE) Test Performed by Nursing Services 08/06/2021 18:46 EDT [facility] Blood CAPILLARY BLOOD / Unknown 08/06/2021 18:44 EDT 08/06/2021 18:46 EDT Debora Michaels MD POINT OF CARE TEST ORDERABLES Performing Organization Address City/[facility]/ZIP Co de Phone Number [facility] [address] [place] [address] * POCT GLUCOSE, INTERFACED (08/06/2021 14:07 EDT) Glucose, POC 91 70 - 100 mg/dL 08/06/2021 14:12 EDT [facility] HN LAB POC COMMENT (GLUCOSE) Test Performed by Nursing Services 08/06/2021 14:12 EDT [facility] Blood CAPILLARY BLOOD / Unknown 08/06/2021 14:07 EDT 08/06/2021 14:12 EDT Debora Michaels MD POINT OF CARE TEST ORDERABLES Performing Organization Address City/[facility]/ZIP Co de Phone Number [facility] [address] [place] [address] * (ABNORMAL) FIBRINOGEN (08/06/2021 13:36 EDT) Fibrinogen 470(H) 171 - 384 mg/dL 08/06/2021 13:58 EDT [facility] Blood VENOUS BLOOD / Unknown Venipuncture / Unknown 08/06/2021 13:36 EDT 08/06/2021 13:42 EDT Dwayne Briggs MD HEMATOLOGY & PF4 ORD ERABLES [facility] [address] [place] [address] * URIC ACID (08/06/2021 13:34 EDT) Uric Acid 6.6 2.2 - 7.7 mg/dL 08/06/2021 14:02 EDT [facility] Blood VENOUS BLOOD / Unknown Venipuncture / Unknown 08/06/2021 13:34 EDT 08/06/2021 13:42 EDT Dwayne Briggs MD CHEMISTRY & BLOOD GA S ORDERABLES [facility] [address] [place] [address] * LDH (08/06/2021 13:34 EDT) LDH 208 120 - 246 U/L 08/06/2021 14:02 EDT [facility] Blood VENOUS BLOOD / Unknown Venipuncture / Unknown 08/06/2021 13:34 EDT 08/06/2021 13:42 EDT Dwayne Briggs MD CHEMISTRY & BLOOD GA S ORDERABLES Performing Organization Address City/[facility] Co de Phone Number [facility] [address] [place] [address] * CREATININE (08/06/2021 13:34 EDT) Creatinine 0.60 0.52 - 1.04 mg/dL 08/06/2021 14:02 EDT [facility] eGFR 126 >60 mL/min/1.73 m2 08/06/2021 14:02 EDT [facility] Blood VENOUS BLOOD / Unknown Venipuncture / Unknown 08/06/2021 13:34 EDT 08/06/2021 13:42 EDT Dwayne Briggs MD CHEMISTRY & BLOOD GA S ORDERABLES [facility] [address] [place] [address] * ALT (08/06/2021 13:34 EDT) ALT 20 <35 U/L 08/06/2021 14:02 EDT [facility] Blood VENOUS BLOOD / Unknown Venipuncture / Unknown 08/06/2021 13:34 EDT 08/06/2021 13:42 EDT Dwayne Briggs MD CHEMISTRY & BLOOD GA S ORDERABLES Performing Organization Address City/[facility]/ZIP Co de Phone Number [facility] [address] [place] [address] * AST (08/06/2021 13:34 EDT) Pathologist [facility] AST 26 15 - 46 U/L 08/06/2021 14:02 EDT [facility] Blood VENOUS BLOOD / Unknown Venipuncture / Unknown 08/06/2021 13:34 EDT 08/06/2021 13:42 EDT Dwayne Briggs MD CHEMISTRY & BLOOD GA S ORDERABLES Performing Organization Address [facility] Co de Phone Number [facility] [address] [place] [address] * TYPE AND SCREEN (08/06/2021 13:33 EDT) Pathologist [facility] ABO O 08/06/2021 14:53 EDT [facility] Rh Factor Positive 08/06/2021 14:53 EDT [facility] Antibody Screen Negative 08/06/2021 14:53 EDT [facility] Specimen Expires: 08/09/2021 @ 23:59 08/06/2021 14:53 EDT [facility] Blood VENOUS BLOOD / Unknown Venipuncture / Unknown 08/06/2021 13:33 EDT 08/06/2021 13:46 EDT Dwayne Briggs MD BLOOD BANK TESTS Performing Organization Address City/[facility]/ZIP Co de Phone Number [facility] [address] [facility] [place] [address] * (ABNORMAL) COMPLETE BLOOD COUNT (08/06/2021 13:32 EDT) WBC 7.98 4.00 - 12.40 K/cmm 08/06/2021 13:49 EDT [facility] RBC 4.20 3.86 - 5.04 M/cmm 08/06/2021 13:49 EDT [facility] Hemoglobin 11.9 11.6 - 15.2 gm/dL 08/06/2021 13:49 T [facility] HCT 36.2 34.9 - 44.4 % 08/06/2021 13:49 [facility] MCV 86 81 - 98 fl 08/06/2021 13:49 [facility] MCH 28.3 26.7 - 33.3 pg 08/06/2021 13:49 [facility] MCHC 32.9 32.1 - 35.9 gm/dL 08/06/2021 13:49 [facility] RDW-CV 14.9(H) <14.7 % 08/06/2021 13:49 [facility] RDW-SD 46.4 <50.4 fl 08/06/2021 13:49 [facility] PLT 251 141 - 377 K/cmm 08/06/2021 13:49 [facility] MPV 11.1 9.5 - 12.7 fl 08/06/2021 13:49 [facility] Blood VENOUS BLOOD / Unknown Venipuncture / Unknown 08/06/2021 13:32 EDT 08/06/2021 13:42 EDT Dwayne Briggs MD HEMATOLOGY & PF4 ORD ERABLES [facility] [address] [place] [address] * POC US VAT LINE PLACEMENT (08/06/2021 12:56 EDT) Narrative 08/06/2021 12:56 EDT This is a non-reportable exam. Dwayne Briggs MD IMG US POC ORDERABLE S * (ABNORMAL) PROTEIN/CREATININE RATIO, URINE (08/06/2021 12:00 EDT) Total Protein, Urine 25 See Note mg/dL 08/06/2021 12:54 EDT [facility] Comment:Reference range not established. Creatinine, Urine 48.1 See Note mg/dL 08/06/2021 12:54 EDT [facility] Comment:Reference range not established. UPRO mg/mg Cr, Ur 0.52(H) <0.18 mg/mg Creatinine 08/06/2021 12:54 EDT [facility] Urine URINE SPECIMEN COLLECTION, CLEAN CATCH / Unknown Urine Collect / Unknown 08/06/2021 12:00 EDT 08/06/2021 12:21 EDT Dwayne Briggs MD URINALYSIS ORDERABLE S Performing Organization Address City/[facility] Co de Phone Number [facility] [address] [place] [address] * POCT GLUCOSE, INTERFACED (08/06/2021 11:56 EDT) Glucose, POC 72 70 - 100 mg/dL 08/06/2021 12:00 EDT [facility] HN LAB POC COMMENT (GLUCOSE) Test Performed by Nursing Services 08/06/2021 12:00 EDT [facility] Blood CAPILLARY BLOOD / Unknown 08/06/2021 11:56 EDT 08/06/2021 12:00 EDT Debora Michaels MD POINT OF CARE TEST ORDERABLES Performing Organization Address City/[facility] Co de Phone Number [facility] [address] [place] [address] documented in this encounter Visit Diagnoses Diagnosis Supervision of other normal - Primary Encounter for induction of labor Gestational hypertension, third trimester Graves' disease Toxic diffuse goiter without mention of thyrotoxic crisis or storm Asthma Unspecified asthma Obesity, Class III, BMI 40-49.9 (morbid obesity) (HCC) Morbid obesity Encounter for induction of labor documented in this encounter Admitting Diagnoses Diagnosis Encounter for induction of labor documented in this encounter Administered Medications Inactive Administered Medications - up to 3 most recent administrations Medication Order MAR Action Action Date Dose Rate Site acetaminophen (TYLENOL) tablet 1,000 mg 1,000 mg, oral, EVERY 8 HOURS PRN, Starting on Indu 08/07/21 at 0137, Until Wed08/08/21 at 1427, Pain, Routine, Release Given 08/08/2021 11:05 EDT 1,000 mg Given 08/08/2021 3:38 EDT 1,000 mg Given 08/07/2021 19:33 EDT 1,000 mg ibuprofen (MOTRIN) tablet 800 mg 800 mg, oral, EVERY 8 HOURS PRN, Starting on Indu 08/07/21 at 0138, Until Wed08/08/21 at 1427, Pain, Routine, Release Given 08/08/2021 11:06 EDT 800 mg Given 08/08/2021 3:38 EDT 800 mg Given 08/07/2021 19:33 EDT 800 mg lactated ringers (LR) infusion at 75 mL/hr, intravenous, CONTINUOUS, Starting on Wed08/06/21 at 2015, Until Indu 08/07/21 at 0342, Routine Rate Documented 08/06/2021 19:25 EDT 75 mL/ hr lactated ringers BOLUS 500 mL 500 mL, intravenous, PRN, 4 doses, Starting on Wed08/06/21 at 1126, Until Indu 08/07/21 at 0342, Other, Pre-delivery, genaro-epidural placement, hypotension, dehydration, non-reassuring assessment; post delivery: dehydration, hypotension., Routine, Release Given 08/06/2021 20:13 EDT 500 mL levothyroxine (SYNTHROID) tablet 250 mcg 250 mcg, oral, DAILY, First dose on Indu 08/07/21 at 0700, Until Discontinued Given 08/08/2021 9:08 EDT 250 mcg Given 08/07/2021 8:30 EDT 250 mcg oxytocin in lactated ringers 30 units/500 ml 95-334 mL/hr, intravenous, Continuous PRN, Starting on Wed08/06/21 at 1126, Until Indu 08/07/21 at 0342, Routine, Pre-Delivery Rate Change-ICU/L&D Only 08/07/2021 1:49 EDT 95 mL/hr 95 mL/hr Rate Change-ICU/L&D Only 08/07/2021 1:19 EDT 334 mL/hr 33 4 mL/hr oxytocin in lactated ringers 30 units/500 ml 1-30 delfina-units/min (1-30 mL/hr), intravenous, CONTINUOUS, Starting on Wed08/06/21 at 1515, Until Wed08/07/21 at 0342, Routine Rate Change-ICU/L&D Only 08/07/2021 0:18 EDT 10 delfina-units/min 10 mL/hr Rate Change-ICU/L&D Only 08/06/2021 23:47 EDT 14 delfina-uni ts/min 14 mL/hr Rate Change-ICU/L&D Only 08/06/2021 21:36 EDT 17 delfina-uni ts/min 17 mL/hr sodium chloride 0.9 % (flush) flush 5 mL 5 mL, intravenous, EVERY 8 HOURS, First dose on Wed08/07/21 at 0200, Until Discontinued, Routine, Release Given 08/07/2021 10:47 EDT 5 mL documented in this encounter Discontinued Medications Medication Sig Discontinue Reason Start Date End Da te atomoxetine (STRATTERA) 80 mg capsuleIndications:Atten tion deficit hyperactivity disorder (ADHD), unspecified ADHD type Take 1 Cap by mouth daily. 05/05/2019 08/08/2021 insulin NPH (NOVOLIN N) 100 unit/mL (3 mL) injectable pen Inject 15 Units into the skin at bedtime. 07/07/2021 08/08/2021 insulin aspart U-100 (NOVOLOG FLEXPEN U-100 INSULIN) 100 unit/mL (3 mL) injectable pen Inject 3 units into skin 15 minutes prior to breakfast and lunch and inject 5 units into skin 15 minutes prior to dinner as instructed. Total of 11 units daily. 07/29/2021 08/08/2021 documented as of this encounter Active and Recently Administered Medications Times are shown in EDT. Scheduled Medication Order 08/06/2021 08/07/2021 08/08/2021 levothyroxine (SYNTHROID) tablet 250 mcg 250 mcg, oral, DAILY, First dose on Wed08/07/21 at 0700, Until Discontinued 0830 (Given - Provider: Mary Hunt RN) 0908 (Given - Provider: Dwayne Loja RN - Comment: awaiting arrival from pharmacy) multivitamin vit-iron fumarate-FA (STUARTNATAL) 27 mg iron- 1 mg tablet 1 Tablet 1 Tablet, oral, DAILY, First dose on Wed08/07/21 at 0900, Until Discontinued, Routine, 1048 (Not Given - Provider: Ghazal Joe - Reason: Patient/family refused) 0909 (Not Given - Provider: Dwayne Loja RN - Reason: Patient/family refused) senna (SENOKOT) tablet 2 Tablet 2 Tablet, oral, AT BEDTIME, First dose on Indu 08/07/21 at 2100, Until Discontinued, Routine, 2217 (Not Given - Provider: Sarah Vizcaino RN - Reason: Patient/family refused) sodium chloride 0.9 % (flush) flush 5 mL (CANCELED)(Linked Group 1) 5 mL, intravenous, EVERY 8 HOURS, First dose on Indu 08/07/21 at 0200, Until Discontinued, Routine, Release 030 (Hold - Provider: Manuel Martinez RN - Reason: Order parameters not met)1047 (Given - Provider: Ghazal Joe)1722 (Not Given - Provider: Sarah Vizcaino RN - Reason: Loss of IV access - Comment: IV discontinued) Continuous Medication Order 08/06/2021 08/07/2021 08/08/2021 lactated ringers (LR) infusion (CANCELED) at 75 mL/hr, intravenous, CONTINUOUS, Starting on Wed08/06/21 at 2015, Until Indu 08/07/21 at 0342, Routine 1925 (Rate Documented - Provider: Manuel Martinez RN) 0336 (IV Stopped - Provider: Manuel Martinez RN) oxytocin in lactated ringers 30 units/500 ml (CANCELED) 1-30 delfina-units/min (1-30 mL/hr), intravenous, CONTINUOUS, Starting on Wed08/06/21 at 1515, Until Indu 08/07/21 at 0342, Routine 1522 (New Bag - Provider: Nemo Dowell RN)1623 (Rate Change-ICU/L&D Only - Provider: Nemo Dowell RN)1709 (Rate Change-ICU/L&D Only - Provider: Nemo Dowell RN)1818 (Rate Change-ICU/L&D Only - Provider: Nemo Dowell RN)1859 (Rate Change-ICU/L&D Only - Provider: Nemo Dowell RN)1925 (Rate Documented - Provider: Manuel Martinez RN)1936 (Rate Change-ICU/L&D Only - Provider: Manuel Martinez RN)2041 (Rate Change-ICU/L&D Only - Provider: Manuel Martinez RN)2102 (Rate Change-ICU/L&D Only - Provider: Manuel Martinez RN)213 (Rate Change-ICU/L&D Only - Provider: Manuel Martinez RN)2347 (Rate Change-ICU/L&D Only - Provider: Manuel Martinez RN) 0018 (Rate Change-ICU/L&D Only - Provider: Manuel Martinez RN)0119 (IV Stopped - Provider: Manuel Martinez RN) PRN Medication Order 08/06/2021 08/07/2021 08/08/2021 acetaminophen (TYLENOL) tablet 1,000 mg 1,000 mg, oral, EVERY 8 HOURS PRN, Starting on Indu 08/07/21 at 0137, Until Wed08/08/21 at 1427, Pain, Routine, Release 0239 (Given - Provider: Manuel Martinez RN)1044 (Given - Provider: Ghazal Joe)1932 (Given - Provider: Sarah Vizcaino, ROULA) 033 (Given - Provider: Socorro Wang RN)1105 (Given - Provider: Dwayne Loja RN) calcium carbonate (TUMS) 200 mg calcium (500 mg) per chewable tablet tablet,chewable 2 Tablet 2 Tablet, oral, EVERY 2 HOURS PRN, Starting on Indu 08/07/21 at 0342, Until Wed08/08/21 at 1427, Heartburn, Indigestion, Routine, ibuprofen (MOTRIN) tablet 800 mg 800 mg, oral, EVERY 8 HOURS PRN, Starting on Indu 08/07/21 at 0138, Until Wed08/08/21 at 1427, Pain, Routine, Release 0239 (Given - Provider: Manuel Martinez RN)1044 (Given - Provider: Ghazal Joe)193 (Given - Provider: Sarah Vizcaino RN) 0338 (Given - Provider: Socorro Wang RN)1106 (Given - Provider: Dwayne Loja RN) lactated ringers BOLUS 500 mL (CANCELED) 500 mL, intravenous, PRN, 4 doses, Starting on Wed08/06/21 at 1126, Until Wed08/07/21 at 0342, Other, Pre-delivery, genaro-epidural placement, hypotension, dehydration, non-reassuring assessment; post delivery: dehydration, hypotension., Routine, Release 2012 (Given - Provider: Manuel Martinez RN) lansinoh HPA lanolin topical, PRN, Starting on Wed08/07/21 at 0342, Until Wed08/08/21 at 1427, Other, breast feeding, oxytocin in lactated ringers 30 units/500 ml (CANCELED) 95-334 mL/hr, intravenous, Continuous PRN, Starting on Wed08/06/21 at 1126, Until Wed08/07/21 at 0342, Routine, Pre-Delivery 0119 (Rate Change-ICU/L&D Only - Provider: Manuel Martinez RN)0149 (Rate Change-ICU/L&D Only - Provider: Manuel Martinez RN) polyethylene glycol 3350 (MIRALAX) packet 17 g 17 g, oral, 2 TIMES DAILY PRN, Starting on Wed08/07/21 at 0342, Until Wed08/08/21 at 1427, Constipation, Routine, Linked Groups Order Group 1: Change IV to Saline Lock (CANCELED) Routine, ONE TIME, On Wed08/07/21 at 0140, For 1 occurrence, Once PO intake tolerated and oxytocin infusion complete., Release And sodium chloride 0.9 % (flush) flush 5 mL (CANCELED)Jump to med 5 mL, intravenous, EVERY 8 HOURS, First dose on Wed08/07/21 at 0200, Until Discontinued, Routine, Release documented in this encounter Orders Medications Ordered That Alonso ht Not Have Been Administered Count Last Ordered Date First Ordered Date calcium carbonate (TUMS) 200 mg calcium (500 mg) per chewable tablet tablet,chewable 2 Tablet 1 08/07/2021 fentaNYL citrate (PF) 50 mcg/mL injection 1 08/07/2021 lansinoh HPA lanolin 1 08/07/2021 levothyroxine (SYNTHROID) tablet 50 mcg 1 0 08/07/2021 multivitamin vit-ir on fumarate-FA (STUARTNATAL) 27 mg iron- 1 mg tablet 1 Tablet 1 08/07/2021 polyethylene glycol 3350 (HI RALAX) packet 17 g 1 08/07/2021 senna (SENOKOT) tablet 2 Tablet 1 bupivacaine (PF) (MARCAINE) 0.25 % (2.5 mg/mL) injection 1 08/06/2021 bupivacaine-fentaNYL in NS 0 .0625 %-2 mcg/mL 250 mL epidural 1 08/06/2021 levothyroxine (SYNTHROID) tablet 250 mcg 1 08/06/2021 lidocaine (PF) 10 mg/mL (1 % ) injection 2 mg 1 08/06/2021 lidocaine 1 % injection 20 mL 1 08/06/2021 miSOPROStol (CYTOTEC) tablet 200 mcg 1 09/2021 miSOPROStol (CYTOTEC) tablet 800 mcg 1 09/2021 tranexamic acid (CYKLOKAPRON ) injection 1,000 mg 1 08/06/2021 Diet Count Last Ordered Date First Orde red Date DISCHARGE DIET 1 08/08/2021 Nursing Count Last Ordered Date First Orde red Date ACTIVITY INSTRUCTIONS 1 08/08/2021 IV Count Last Ordered Date First Orde red Date IV REQUEST 1 08/06/2021 Admission Count Last Ordered Date First Orde red Date ADMIT TO INPATIENT 1 08/06/2021 Discharge Count Last Ordered Date First Orde red Date DISCHARGE PATIENT 1 08/08/2021 Legal Count Last Ordered Date First Orde red Date MISCELLANEOUS DISCHARGE INSTRUCTIONS 2 07/30 documented in this encounter Care Teams Sales Marketing Manager Relationship Specialty Start Date End Date Ayla Solomon DO [facility] [place] [facility] [address] [place] [address] PCP - General General Surgery 04/12/21 documented as of this encounter
--- OUTSIDE RECORDS SUMMARY | 2023-12-04 20:14 | XMS_ITS | Encounter Summary ---
Author Organization [facility] Address [address] [place] [address] Care Team Providers Care Ham Boner Name Role Phone Juanito Ayla Keagan LACY Primary Care Provider [phone] Reason for Visit * Reason Onset Date Comments Returning Call 10/30/2022 Encounter Details Date Type Department Care Team (Late st Contact Info) Description 10/30/2022 Telephone [facility] Endocrinology - [facility] [address] [place] [address] Carlos Nuñez DO [address] [facility] [address] [place] [address] Returning Call Social History Tobacco Use Types Packs/Day Years [...] in the Last Year Never true 11/07/2019 [place] Depression Scale Answer Date Recorded [place] Depression Scale Total 21 09/17/2021 The thought [...] encounter Miscellaneous Notes * Telephone Encounter - Praveen Mckee - 10/30/2022 1218 EDT The patient is returning a call to the nurse.currently on 250 mcg on levothyroxine. She states there are a few more questions the nurse has. Hot Blast Worker reaching out to triage The patient will send a message on [employer] documented in this encounter Plan of Treatment Not on file documented as of this encounter Goals Goal Patient Goal Type Associated Problems Recent Progress Patient-Stated? Author Weight Loss General Obesity, Class III, BMI 40-49.9 (morbid obesity) No Marva Hitchcock Note: Increased activity getting out doors with daughter documented as of this encounter Visit Diagnoses Not on filedocumented in this encounter Care Teams Ham Boner Relationship Specialty Start Date End Date Ayla Solomon DO [facility] [facility] [address] [place] [address] PCP - General General Surgery 04/12/21 documented as of this encounter
--- OUTSIDE RECORDS SUMMARY | 2023-12-04 20:14 | XMS_ITS | Encounter Summary ---
Author Organization [facility] Address [address] [place] [address] Care Team Providers Care Coupon Clerk Name Role Phone Juanito Aylaflorence Boogie DO Primary Care Provider Reason for Visit * Reason Comments Routine Visit Telemedicine Phone Call Encounter Details Date Type Department Care Team (Late st Contact Info) Description 07/23/2021 13:00 EDT Telemedicine [facility] OBGYN Services - [address] [id number] Braulio Hussein MD [address] [facility], [address] [place] [id number] Encounter for supervision of other normal in third trimester (Primary Dx) Social History [...] as of this encounter Progress Notes * Braulio Hussein MD - 07/23/2021 1300 EDT S: Patient is a 25 y.o. 37w1d. No LOF, no VB. No regular ctxs. +FM. Having some irregular contractions, worse at different times of day. Some decreased movement which is now improving. O: Telemed, NST/BPP today A/P:25 y.o. 37w1d : Supervision of other normal Needs GBS with next in person visit (telemed due to COVID+ 9 days prior) PNC UTD All questions answered RTC 1 week Today's visit was provided through telemedicine telephone conferencing: Consent: The concept of telemedicine?? has been described to the patient. Patient has been informed of theanticipated benefits and possible risks. Patient understands the information provided regarding telemedicine, has had the opportunity to ask questions about this information, and all questions have been answered to patient's satisfaction. Patient consents for the use of telemedicine in his/her medical care and authorizes the transmission of any relevant medical information to providers and their staff involved in patient's medical or mental health care. I spent a total of 15 minutes with Tiny Cline today and 15 minutes of that time was spent in counseling and coordination of care as described in the progress note. Braulio Hussein MD 07/23/2021 13:08 documented in this encounter Miscellaneous Notes * Assessment & Plan Note - Braulio Hussein MD - 07/23/2021 1307 EDT Associated Problem(s): Supervision of other normal Needs GBS with next in person visit (telemed due to COVID+ 9 days prior) PNC UTD All questions answered RTC 1 week documented in this encounter Plan of Treatment Not on file documented as of this encounter Goals Goal Patient Goal Type Associated Problems Recent Progress Patient-Stated? Author Weight Loss General Obesity, Class III, BMI 40-49.9 (morbid obesity) No Marva Hitchcock Note: Increased activity getting out doors with daughter documented as of this encounter Visit Diagnoses Diagnosis Encounter for supervision of other normal in third trimester- Primary documented in this encounter Additional Health Concerns Infection Onset Date Last Indicated Resolved Time COVID-19 07/14/2021 07/14/2021 07/25/2021 22:1 6 EDT documented as of this encounter Care Teams Coupon Clerk Relationship Specialty Start Date End Date Ayla Solomon DO [facility] [facility] [address] [place] [address] PCP - General General Surgery 04/12/21 documented as of this encounter
--- OUTSIDE RECORDS SUMMARY | 2023-12-04 20:14 | XMS_ITS | Encounter Summary ---
Author Organization [facility] Address [address] [place] [address] Care Team Providers Care Surgical Rn Name Role Phone Juanito Ayla Keagan LACY Primary Care Provider [phone] Reason for Visit * Reason Onset Date Comments Medication Management 10/22/2022 Results 10/22/2022 Encounter Details Date Type Department Care Team (Late st Contact Info) Description 10/22/2022 Telephone [facility] [place] Endocrinology - [facility] [address] [place] [address] Kin Ratliff DO [address] [facility] [address] [place] [address] Medication Management; Results Social History Tobacco Use Types Packs/Day Years [...] in the Last Year Never true 11/07/2019 [place] Depression Scale Answer Date Recorded [place] Depression Scale Total 21 09/17/2021 The thought [...] ablation Take 1 Tablet by mouth daily. 30 Tablet 3 11/02/2022 01/04/2023 levothyroxine (SYNTHROID) 75 mcg tabletIndications:Hypothy roidism, postablative,Status post radioactive iodine thyroid ablation Take 1 Tablet by mouth daily. 30 Tablet 3 11/02/2022 11/02/2022 documented in this encounter Miscellaneous Notes * Addendum Note - Kin Ratliff DO - 11/02/2022 1032 EDTAddended by: KIN RATLIFF on: 11/02/2022 10:32 Modules accepted: Orders * Telephone Encounter - Kin Ratliff DO - 11/02/2022 1031 EDT Lab orders and prescription signed by this provider * Addendum Note - Sriram Dewitt RN - 10/30/2022 1551 EDTAddended by: SRIRAM DEWITT on: 10/30/2022 15:51 Modules accepted: Orders * Telephone Encounter - Sriram Dewitt RN - 10/30/2022 0929 EDT Called pt and left deatiled VM requesting pt contact clinic. Seeking to relay Dr. ratliff's message: 'Confirm patient is currently on 250 mcg of levothyroxine daily. Please confirm patient is taking medication regularly and properly. Please confirm patient is not taking medication with Tums or any vitamin or iron supplementation. ?? Once confirmed, although her numbers are in the normal range would like her TSH to be less than 2.5. I would like her to increase to 275 mcg daily. She can continue on her 200 mcg tablet but will need a prescription for a 75 mcg tablet in order to have the combined dose of 275 mcg. ?? She will also need repeat thyroid function tests in 4 weeks and a standing order placed for TSH andfree T4 every 4 weeks x 8 at the laboratory where she normally gets her labs drawn. She should hearfrom our office with laboratory results within a few days of having her labs drawn. Please asked her to contact the office if she does not hear from someone in the office with lab results if its beenlonger than 2 days Also sending message via [employer]. Sriram Dewitt RN, BSN Endocrinology * Telephone Encounter - Kin Ratliff DO - 10/29/2022 1535 EDT Confirm patient is currently on 250 mcg of levothyroxine daily. Please confirm patient is taking medication regularly and properly. Please confirm patient is not taking medication with Tums or any vitamin or iron supplementation. Once confirmed, although her numbers are in the normal range would like her TSH to be less than 2.5. I would like her to increase to 275 mcg daily. She can continue on her 200 mcg tablet but will need a prescription for a 75 mcg tablet in order to have the combined dose of 275 mcg. She will also need repeat thyroid function tests in 4 weeks and a standing order placed for TSH andfree T4 every 4 weeks x 8 at the laboratory where she normally gets her labs drawn. She should hearfrom our office with laboratory results within a few days of having her labs drawn. Please asked her to contact the office if she does not hear from someone in the office with lab results if its beenlonger than 2 days * Telephone Encounter - Taylor Ryan RN - 10/29/2022 1336 EDT Images from the original note were not included. Patient calling about urgent thyroid lab results. Patient is presumably pregant (first US will be on 11/05/22) Lab results in external results TSH and free T4 completed on 10/23/22 TSH 3.89 Free T4 1.[address] Joaquin RYAN RN 10/29/2022 13:47 * Telephone Encounter - Rosalie Huerta - 10/29/2022 1232 EDT Patient calling for urgent lab testing results. * Telephone Encounter - Taylor Ryan RN - 10/22/[address] Ratliff writes: Please contact patient via phone. There was a request for a appointment because I believe she sounds like she is may be . Please confirm her current levothyroxine dose which I believe is 250 mcg daily. Please also confirm number of weeks and if she has had recent thyroid functiontest. If she has not she needs to obtain a TSH and free T4 HAZEL I will contact her for dose adjustment. Please have her do the labs in the next 24 hours. Spoke to patient. Patient reports: ? yes How many weeks along? Scan will be 11/05/22 to confirm . She said she doesn't know when her last period was. Levothyroxine 250 mcg daily? Yes. Compliant? There were a couple weeks for a few days where she forgot to take it within the last month. - Securities Teller informed patient that it has been a while since she got thyroid labs done, so she will need to complete TSH and free T4 HAZEL within 24 hours. Patient verbalized understanding. Which lab do you go to? [facility] in [facility] - Securities Teller informed patient that Dr. Ratliff will call her about a dose adjustment. Patient verbalized understanding. - Patient denied having any questions. TSH and free T4 labs routed to [facility]. TAYLOR RYAN RN 10/22/2022 15:39 * Telephone Encounter - Kin Ratliff DO - 10/22/2022 1419 EDT Please contact patient via phone. There was a request for a appointment because I believe she sounds like she is may be . Please confirm her current levothyroxine dose which I believe is 250 mcg daily. Please also confirm number of weeks and if she has had recent thyroid function test. If she has not she needs to obtain a TSH and free T4 HAZEL I will contact her for dose adjustment. Please have her do the labs in the next 24 hours documented in this encounter Plan of Treatment [...] End Da te levothyroxine (SYNTHROID) 50 mcg tabletIndications:Hypothy roidism, postablative Take 1 Tablet by mouth daily. Take with 200 mcg for 250 mcg daily 08/04/2022 11/02/2022 levothyroxine (SYNTHROID) 75 mcg tabletIndications:Hypothy roidism, postablative,Status post radioactive iodine thyroid ablation Take 1 Tablet by mouth daily. Reorder 11/02/2022 11/02/2022 documented as of this encounter Care Teams Surgical Rn Relationship Specialty Start Date End Date Ayla Solomon DO [facility] [facility] [address] [place] [address] PCP - General General Surgery 04/12/21 documented as of this encounter
--- OUTSIDE RECORDS SUMMARY | 2023-12-04 20:15 | XMS_ITS | Encounter Summary ---
Author Organization [facility] Address [address] [place] [address] Care Team Providers Care Varnishing Machine Operator Name Role Phone Juanito Ayla Keagan LACY Primary Care Provider [phone] Reason for Visit * Reason Onset Date Comments Medication Questions 06/09/2021 Encounter Details Date Type Department Care Team (Late st Contact Info) Description 06/09/2021 Telephone [facility] OBGYN Services - [facility] [address] [place], [place] [id number] Jenny Samuel, PARI [address] [facility] [address] [place] [phone] Medication Questions Social History Tobacco Use Types [...] Telephone Encounter - Bethany Flanagan RN - 06/09/2021 1453 EDT Changed order in Epic to follow instructions with insulin pen and sent to pharmacy. * Telephone Encounter - Harriett Rosales - 06/09/2021 1444 EDT Ariadna from the the [facility] in the [facility] called and said the pen needles dont have any directions attached on the scripts and they cant biill the insurance without these. Ariadna can be reached at: [phone] documented in this encounter Plan of Treatment Not on file documented as of this encounter Goals Goal Patient Goal Type Associated Problems Recent Progress Patient-Stated? Author Weight Loss General Obesity, Class III, BMI 40-49.9 (morbid obesity) No Marva Hitchcock Note: Increased activity getting out doors with daughter documented as of this encounter Visit Diagnoses Not on filedocumented in this encounter Care Teams Varnishing Machine Operator Relationship Specialty Start Date End Date Ayla Solomon DO [address] [facility] [address] [place] [address] PCP - General General Surgery 04/12/21 documented as of this encounter
--- OUTSIDE RECORDS SUMMARY | 2023-12-04 20:15 | XMS_ITS | Encounter Summary ---
Author Organization [facility] Address [address] [place] [address] Care Team Providers Care General Scrap Worker Name Role Phone Juanito Ayla Keagan LACY Primary Care Provider [phone] Reason for Visit * Reason Comments Non-stress Test Encounter Details Date Type Department Care Team (Late st Contact Info) Description 07/15/2021 12:00 EDT Office Visit [facility] Obstetrics & Midwifery - [facility] [address] [place], [place] [address] COVID-19 affecting in third trimester (Primary Dx); Insulin controlled gestational diabetes mellitus (GDM) in third trimester; Obesity, Class III, BMI 40-49.9 (morbid obesity) ([facility]) ([facility] Social History Tobacco Use Types Packs/Day Years [...] Sign Reading Time Taken Comments Blood Pressure 112/64 07/15/2021 1219 EDT Pulse - - Temperature - - [...] as of this encounter Progress Notes * Mary Jo Zuñiga MD - 07/15/2021 1200 EDT NST Report Baseline Heart Rate: 130 Accelerations: present Movement: present Decelerations: absent Contractions: absent Interpretation: reactive Mary Jo Zuñiga MD 07/15/2021 12:40 documented in this encounter Plan of Treatment Not on file documented as of this encounter Goals Goal Patient Goal Type Associated Problems Recent Progress Patient-Stated? Author Weight Loss General Obesity, Class III, BMI 40-49.9 (morbid obesity) No Marva Hitchcock Note: Increased activity getting out doors with daughter documented as of this encounter Visit Diagnoses Diagnosis COVID-19 affecting in third trimester- Primary Insulin controlled gestational diabetes mellitus (GDM) in third trimester Obesity, Class III, BMI 40-49.9 (morbid obesity) ([facility]) Morbid obesity documented in this encounter Additional Health Concerns Infection Onset Date Last Indicated Resolved Time COVID-19 07/14/2021 07/14/2021 07/25/2021 22:1 6 EDT documented as of this encounter Care Teams General Scrap Worker Relationship Specialty Start Date End Date Ayla Solomon DO [facility] [facility] [address] [place] [address] PCP - General General Surgery 04/12/21 documented as of this encounter
--- OUTSIDE RECORDS SUMMARY | 2023-12-04 20:15 | XMS_ITS | Encounter Summary ---
Author Organization [facility] Address [address] [place] [address] Care Team Providers Care Exhibitor Sales Name Role Phone Juanito Aylaflorence Boogie DO Primary Care Provider Reason for Visit * Reason Comments Nutrition Counseling * Consult (Routine) - Order Cancelled Specialty Diagnoses / Procedures Referred By Eugene asencio Referred To Contact Nutrition / Obstetrics & Gynecology Diagnoses Encounter for supervision of other normal in second trimester Braulio Scanlon MD [address] [facility], [address] [place] [address] [facility] Mp4 Obgyn [address] [place] [id number] Referral ID Status Reason Start Date Expiration Date Visits Requested Visits Authorized [id number] Order Cancelled Specialty Services Required 05/23/2021 1 1 Encounter Details Date Type Department Care Team (Late st Contact Info) Description 06/03/2021 14:00 EDT Nutrition [facility] Obstetrics & Midwifery - [facility] [address] [place], [place] [id number] Sales Center Associate [facility] Ep4 Obgyn Diet controlled gestational diabetes mellitus (GDM) in first trimester (Primary Dx) Social History Tobacco Use Types Packs/Day Years Used Date Smoking Tobacco: Former Cigarettes 0.5 5 Smokeless Tobacco: Never Comments:quit prior to chrisin g ultrasound Alcohol Use Standard Drinks/Week Comments [...] as of this encounter Progress Notes * Tracey Beavers, RD - 06/03/2021 1400 EDT Images from the original note were not included. [facility] Initial Nutrition Assessment Form Subjective: Patient is 25 y.o. female here for a follow-up visit for medical nutrition therapy for Gestational diabetes Referring Provider: Braulio Scanlon Reports BG's have looked good with diet modifications (reducing carb intake) during meal times. Seems to continue to have high FSBG in the AM. Has been eating peanut butter around 10 PM and her BG's have looked ok 2 hours after dinner, before she eats peanut butter. Encouraged her she may not need peanut butter in the evening. Encourage walks in AM & PM to balanced BG's throughout the whole day, could also help FSBG. Encourage no carb options as dessert, possibly second portion of dinner. Takes a vitamin, suggested additional Vit D to supplement. Encouraged continued fish intake. Diet recall: Bfast - 2-3 eggs scrambled with yellow squash & cheese around 8 AM L - salad or snacking vegetables, if she is home will eat fish Snack - sometimes fruit D - salads some days adds chicken, some day's doesn't add protein. Beverages: peach refresher from amy every AM (large contains 45 g CHO) Water throughout the day Social: Marital Status: significant other Working: yes Job: [employer] Exercise: trying to get outside more often now that's it nicer Patient was accompanied by: patient and none Objective: Estimated body mass index is 50.96 kg/m?? as calculated from the following: Height as of 05/23/21: 159 cm (62.6). Weight as of 05/23/21: 128.8 kg (284 lb). Pre- Weight: 260 lbs Prepregnancy BMI: 45.8 Labs: taken on 04/12/21 FSBG have been high if she includes a snack in the evening Pertinent Medical History: Vit D deficiency Assessment: Educational materials provided: Other: denied wanting education materials Method: Verbal Taught to: Patient Barriers: Desire/Motivation to Learn Outcomes: verbalized understanding Plan: Recommendations: Walk in evening to assess if it helps FSBG Switch to protein only source for evening snack and assess FSBG Carbohydrates per meal: B: 15-30 grams/meal L/D: 30-45 Other: Take Vit D supplement 1000 IU's daily outside of pre dominik Keep up excellent fish intake Pair afternoon fruit snack with protein source (cheese, nuts or yogurt) Walking 2, 15 minute sessions daily Time with patient: 45 minutes [id number] Tracey Beavers RD documented in this encounter Plan of Treatment Not on file documented as of this encounter Goals Goal Patient Goal Type Associated Problems Recent Progress Patient-Stated? Author Weight Loss General Obesity, Class III, BMI 40-49.9 (morbid obesity) No Marva Hitchcock Note: Increased activity getting out doors with daughter documented as of this encounter Visit Diagnoses Diagnosis Diet controlled gestational diabetes mellitus (GDM) in first trimester- Primary documented in this encounter Care Teams Exhibitor Sales Relationship Specialty Start Date End Date Ayla Solomon DO [address] [place] [address] PCP - General General Surgery 04/12/21 documented as of this encounter
--- OUTSIDE RECORDS SUMMARY | 2023-12-04 20:15 | XMS_ITS | Encounter Summary ---
Author Organization [facility] Address [address] [place] [address] Care Team Providers Care Commercial Finance Manager Name Role Phone Juanito Ayla Keagan LACY Primary Care Provider [phone] Reason for Visit * Reason Onset Date Comments COVID-19 07/14/2021 Encounter Details Date Type Department Care Team (Late st Contact Info) Description 07/14/2021 Telephone [facility] OBGYN Services - [facility] [address] [place], [place] [phone] Marva Wilson MD [address] [facility], [address] [place] [address] COVID-19 Social History Tobacco Use Types Packs/Day Years [...] Miscellaneous Notes * Telephone Encounter - Bethany Flanagan, ROULA - 07/14/2021 1323 EDT Spoke with Ca re: COVID. Pt states that she was exposed through daycare provider. Tested + today (07/14) w/ symptoms starting today. Reports slight cough and congestion. Afebrile. Vaccinated x 2 Moderna. No booster. Discussed self treatment at home. Discussed Paxlovid, which pt declines. Advised to call back within 5 day window if she changes her mind. Discussed her appts for tomorrow and protocol to call when she arrives and she will be told when to come into clinic. Aware to call w/ SOB, fever unrelieved by Tylenol, S&S of labor, LOF, VBing decreased FM or any other concerns. Pt agrees with plan. No further needs at this time. * Telephone Encounter - Marco Melida - 07/14/2021 1118 EDT Pt calling to report that she tested positive for Covid this morning. Pt is wondering if she shouldstill come in to her appointments tomorrow. Pt can be reached at [phone] to discuss if she should still come and her symptoms. documented in this encounter Plan of Treatment [...] documented as of this encounter Care Teams Commercial Finance Manager Relationship Specialty Start Date End Date Ayla Solomon DO [address] [place] [address] PCP - General General Surgery 04/12/21 documented as of this encounter
--- OUTSIDE RECORDS SUMMARY | 2023-12-04 20:15 | XMS_ITS | Encounter Summary ---
Author Organization [facility] Address [address] [place] [address] Care Team Providers Care E Commerce Retailer Name Role Phone Ayla Solomon DO Primary Care Provider [phone] Encounter Details Date Type Department Care Team (Late st Contact Info) Description 06/23/2021 9:00 EDT Phlebotomy Only [facility] Obstetrics & Midwifery - [facility] [address] [place], [place] [address] [facility], [facility] Social History Tobacco Use Types Packs/Day [...] as of this encounter Progress Notes * Dianelys Bond - 06/23/2021 0900 EDT Patient picked up her Maternal Cell Free DNA lab slip and kit today. documented in this encounter Plan of Treatment Not on file documented as of this encounter Goals Goal Patient Goal Type Associated Problems Recent Progress Patient-Stated? Author Weight Loss General Obesity, Class III, BMI 40-49.9 (morbid obesity) No Marva Hitchcock Note: Increased activity getting out doors with daughter documented as of this encounter Visit Diagnoses Not on filedocumented in this encounter Care Teams E Commerce Retailer Relationship Specialty Start Date End Date Ayla Solomon DO [facility] [facility] [address] [place] [address] PCP - General General Surgery 04/12/21 documented as of this encounter
--- OUTSIDE RECORDS SUMMARY | 2023-12-04 20:15 | XMS_ITS | Encounter Summary ---
Author Organization [facility] Address [address] [place] [address] Care Team Providers Care Pile Driving Superintendent Name Role Phone Juanito Ayla Keagan LACY Primary Care Provider [phone] Reason for Visit * Reason Comments Non-stress Test Encounter Details Date Type Department Care Team (Late st Contact Info) Description 07/08/2021 10:30 EDT Office Visit [facility] Obstetrics & Midwifery - [facility] [address] [place], [place] [phone] Obesity, Class III, BMI 40-49.9 (morbid obesity) (HCC) (HCC-CMS) (Primary Dx) Social History Tobacco Use Types [...] Sign Reading Time Taken Comments Blood Pressure 118/78 07/08/2021 1101 EDT Pulse - - Temperature - - [...] Notes * Mary Jo Zuñiga MD - 07/08/2021 1030 EDT NST Report Baseline Heart Rate: 135 Accelerations: present Movement: present Decelerations: absent Contractions: absent Interpretation: reactive Mary Jo Zuñiga MD 07/08/2021 11:41 documented in this encounter Plan of Treatment Not on file documented as of this encounter Goals Goal Patient Goal Type Associated Problems Recent Progress Patient-Stated? Author Weight Loss General Obesity, Class III, BMI 40-49.9 (morbid obesity) No Marva Hitchcock Note: Increased activity getting out doors with daughter documented as of this encounter Visit Diagnoses Diagnosis Obesity, Class III, BMI 40-49.9 (morbid obesity) ([facility])- Primary Morbid obesity documented in this encounter Care Teams Pile Driving Superintendent Relationship Specialty Start Date End Date Ayla Solomon DO [facility] [facility] [address] [place] [address] PCP - General General Surgery 04/12/21 documented as of this encounter
--- OUTSIDE RECORDS SUMMARY | 2023-12-04 20:15 | XMS_ITS | Encounter Summary ---
Author Organization [facility] Address [address] [place] [address] Care Team Providers Care Director Toxicology Name Role Phone Ayla Solomon DO Primary Care Provider [phone] Reason for Visit * Reason Comments Telemedicine Phone Call Encounter Details Date Type Department Care Team (Late st Contact Info) Description 07/15/2021 15:00 EDT Telemedicine [facility] Obstetrics & Midwifery - [facility] [address] [place], [place] [phone] Mary Jo Zuñiga MD [address] [facility], [address] [place] [phone] Insulin controlled gestational diabetes mellitus (GDM) in [...] Refills Start Date End Da te insulin aspart U-100 (NOVOLOG FLEXPEN U-100 INSULIN) 100 unit/mL (3 mL) injectable pen Inject 3 units into skin 15 minutes prior to breakfast and lunch as instructed. Total of 6 units daily. 9 mL 3 07/15/2021 07/29/2021 documented in this encounter Progress Notes * Ibeth White MD - 07/15/2021 1500 EDT Maternal Medicine Telehealth Follow-up [facility] 07/15/21 The concept of ???Telemedicine?? has been described [...] copays, deductible or coinsurance for this service. This visit was conducted by telephone. I spent a total of 5 minutes in discussion with the patient as described in the progress note. Dear Dr. Lucrecia Briggs, Thank you for referring your patient, Tiny Cline, for consultation in the [facility] clinic. As you know, she is a 25 y.o. with IUP at 36w0d by 9w0d US. Tiny's is complicated by: - COVID-19 infection in , offered paxlovid, declined - GDM-A2 Patient reports blood glucoses have been: - Fastings, 88-100, 4/8 above goal - 2 hr breakfast postprandial: 98-140, 4/7 above goal - 2 hr lunch postprandial: 96-150, 4/7 above goal - 2 hr dinner postprandial: 89-130, 2/7 above goal Pt reports testing positive yesterday for covid. Having just mild cold-like symptoms. Objective: Last menstrual period 10/24/2020, currently . Pregravid BMI Could not be calculated General: well sounding US 07/15/21 - EFW 2801g (52%), AC 49%, cpehalic, BPP 12/08 Assessment & Recommendations: Tiny Cline is a 25 y.o. at 36w0d with IUP complicated by COVID-19 in - Discussed she qualifies for paxlovid and increased efficacy the sooner after onset of symptoms. Clarified that she doesn't need to be feeling really sick to start it as paxlovid is intended to prevent severe disease as opposed to treating it. - Pt knows to call if she changes her mind about wanting an rx for paxlovid GDM-A2 - Reviewed blood sugars and will continue NPH 15 units at bedtime. Will add aspart 3 units with breakfast and lunch. - Continue weekly BPP/NST, q3 week growths - review BG in 1 week (pt can send in via portal as she has in the past) - recommend labor induction at 39 weeks gestation Thank you for the opportunity to participate in the care of Tiny. Please let us know of any questions or concerns. Ms. Cline was seen in conjunction with Dr. Zuñiga. Sincerely, Ibeth White MD Fellow Maternal Medicine [facility] Attestation statement: I performed or was present during the pringle or critical portions of the visit and participated in the management of the patient. I agree with the findings and plan of care documented in the resident's/fellow's note. Mary Jo Zuñiga MD I spent a total of 15 minutes on the date of this encounter meeting with the patient and reviewing documentation/coordinating care as described in the above note. No procedures were performed at the time of the visit. documented in this encounter Plan of [...] documented as of this encounter Care Teams Director Toxicology Relationship Specialty Start Date End Date Ayla Solomon DO [address] [place] [address] PCP - General General Surgery 04/12/21 documented as of this encounter
--- OUTSIDE RECORDS SUMMARY | 2023-12-04 20:15 | XMS_ITS | Encounter Summary ---
Author Organization [facility] Address [address] [place] [address] Care Team Providers Care Souvenir And Novelty Maker Name Role Phone Juanito Ayla Keagan LACY Primary Care Provider [phone] Reason for Visit * Reason Onset Date Comments Results 04/18/2021 Encounter Details Date Type Department Care Team (Late st Contact Info) Description 04/18/2021 Telephone [facility] OBGYN Services - [facility] [address] [place], [place] [phone] Yolis Palmer, ROULA Results Social History Tobacco Use Types Packs/Day [...] 11:17 EST Sexual Orientation Not on file COVID-19 Exposure Response Date Recorded In the last month, have you been in contact with someone who was confirmed or suspected to have Coronavirus / COVID-19? No / Unsure 04/12/2021 5:24 EST documented as of this encounter Functional Status [...] encounter Miscellaneous Notes * Telephone Encounter - Yolis Palmer RN - 04/18/2021 6237 EST TC to pt, notified her that test results were normal, GC/Chlam. Pt does not have any questions or concerns at this time. documented in this encounter [...] on filedocumented in this encounter Care Teams Souvenir And Novelty Maker Relationship Specialty Start Date End Date Ayla Solomon DO [facility] [address] [place] [address] PCP - General General Surgery 04/12/21 documented as of this encounter
--- OUTSIDE RECORDS SUMMARY | 2023-12-04 20:15 | XMS_ITS | Encounter Summary ---
Author Organization [facility] Address [address] [place] [address] Care Team Providers Care Neonatal Pediatric Nurse Name Role Phone Juanito Aylaflorence Boogie DO Primary Care Provider [phone] Reason for Visit * Reason Comments Advice Only GDM * Consult (Routine) - Order Cancelled Specialty Diagnoses / Procedures Referred By Eugene asencio Referred To Contact Obstetrics Diagnoses Encounter for supervision of other normal in second trimester Braulio Scanlon MD [address] [phone] [facility] Ep4 Ob/Mfm [address] [place] [address] Referral ID Status Reason Start Date Expiration Date Visits Requested Visits Authorized [id number] Order Cancelled Specialty Services Required 05/23/2021 1 1 Encounter Details Date Type Department Care Team (Late st Contact Info) Description 06/09/2021 13:00 EDT Initial consult [facility] Obstetrics & Midwifery - [address] [phone] Sophia Franklin MD [address] [phone] Diabetes mellitus affecting in third trimester (Primary Dx) Social History [...] Sign Reading Time Taken Comments Blood Pressure 128/86 06/09/2021 1314 EDT Pulse - - Temperature - - Respiratory Rate - - Oxygen Saturation - - Inhaled Oxygen Concentration - - Weight 130.5 kg (287 lb 12.8 oz) 06/09/2021 1314 EDT Height 159 cm (5' 2.6) 06/09/2021 1314 EDT Body Mass Index 51.64 06/09/2021 1314 EDT documented in this encounter [...] needles 31G x 5/16 BD UltraFine Short. 100 Each 3 06/09/2021 06/09/2021 insulin NPH (NOVOLIN N) 100 unit/mL (3 mL) injectable pen Inject 5 units into skin at bedtime as instructed. 5 Each 3 06/09/2021 06/23/2021 documented in this encounter Progress Notes * Sophia Franklin MD - 06/09/[address] Scanlon, Thank you for referring Ms Cline to the Maternal Medicine clinic for consultation for gestational diabetes. As you know, Ms Cline is a 25 year old at 30+6 weeks gestation with EDC 08/12/2021. She hada normal early glucose screen (due to BMI) and an abnormal 3 hour OGTT (117/203/178/172) in the third trimester. Since that time she has met with a beauty shop manager. She has been checking blood sugars and trying to make some dietary changes. Her history is otherwise notable for obesity with a preconception BMI of 49. She has a history of Graves disease, s/p radioactive iodine ablation; now hypothyroid on replacement therapy. Her records note she had negative thyroid antibody screening but I do not have those results for review. She notes this was checked at [facility]. She is followed by endocrinology with serial TSH values. Her OB history is notable for one prior term vaginal delivery of an 8lb7oz . She did not have GDM in that . Her family history is notable for diabetes in her father and grandfather. Blood pressure 128/86, height 159 cm (62.6), weight (!) 130.5 kg (287 lb 12.8 oz), last menstrual period 10/24/2020, currently . +fhts 140s She did not bring blood sugar logs but recalls the following: Fasting 100-110 2 hour breakfast 80-120 2 hour lunch 80-120 2 hour dinner 80-120s (after making dietary changes) Today we discussed the diagnosis, risks, and management of gestational diabetes. Gestational diabetes is associated with macrosomia, preeclampsia, shoulder dystocia, delivery, and stillbirth. complications include hypoglycemia and hyperbilirubinemia. Women with gestational diabetes are at increased risk of recurrence in future pregnancies as well as development of type 2 DM later in life. At this point in time, she has persistent fasting hyperglycemia. Because fasting values are less amenable to continued dietary changes, I recommend initiation of insulin at this time. To target her fasting hyperglycemia, I recommend NPH insulin, at a starting dose of 5 units at bedtime. I discussedthe normal increasing insulin resistance with advancing gestation and our anticipated need to continue to increase insulin weekly. Serial assessment of growth is recommended with ultrasound at 32 and 36 weeks as well as weekly assessment with biophysical profile and NST, starting at 32 weeks. Delivery is recommended at 39 weeks. If the estimated weight is predicted to be greater than 4500g at delivery, discussion about trial of labor or primary delivery is warranted. It is recommended she complete a 2 hour OGTT 6 weeks and have screening for T2DM every 1-3 years. In future pregnancies, she should have early glucose screening for recurrence of GDM. Today she is taught to self administer insulin. We will follow up with a telephone visit in one week for blood sugar review. At the end of our discussion she had no further questions. Thank you for referring her for consultation. I spent 20 minutes face to face with the patient with the entire time discussing these recommendations. Sincerely, Sophia Franklin MD * Landon Joseph RN - 06/09/2021 1300 EDT Gestational Diabetes Patient Education Insulin [Action, Types, Preparation of injection, Mixing insulin, Injecting insulin - self, Storinginsulin, Syringe care/disposal, Site rotation] Method: Handout, Demonstration, Verbal Taught to: Patient Barriers: None Outcomes: Verbalized Understanding Comments: I was supervised by Dr. Franklin who was present and immediately available in the office suite. LANDON JOSEPH RN 06/09/2021 13:47 : documented in this encounter Plan of Treatment Not on file documented as of this encounter Goals Goal Patient Goal Type Associated Problems Recent Progress Patient-Stated? Author Weight Loss General Obesity, Class III, BMI 40-49.9 (morbid obesity) No Marva Hitchcock Note: Increased activity getting out doors with daughter documented as of this encounter Visit Diagnoses Diagnosis Diabetes mellitus affecting in third trimester- Primary documented in this encounter Care Teams Neonatal Pediatric Nurse Relationship Specialty Start Date End Date Ayla Solomon DO [facility] [facility] [address] [place] [address] PCP - General General Surgery 04/12/21 documented as of this encounter
--- OUTSIDE RECORDS SUMMARY | 2023-12-04 20:15 | XMS_ITS | Encounter Summary ---
Author Organization [facility] Address [address] [place] [address] Care Team Providers Care Toe Stapler Name Role Phone Juanito Ayla Keagan LACY Primary Care Provider [phone] Reason for Visit * Reason Onset Date Comments Medical Records 05/23/2021 Labs Encounter Details Date Type Department Care Team (Late st Contact Info) Description 05/23/2021 Telephone [facility] [place] OBG[facility] Services - [facility] [place] [address] [place], [place] [id number] Bethany Flanagan, RN Medical Records (Labs) Social History Tobacco Use Types Packs/Day Years [...] Notes * Telephone Encounter - Bethany Flanagan, RN - 05/23/2021 9590 EDT Call placed to prior [facility] ([facility]) to obtain 3h GTT records. Spoke with Kathie who will send over labs to our office. documented in this encounter Plan of Treatment Not on file documented as of this encounter Goals Goal Patient Goal Type Associated Problems Recent Progress Patient-Stated? Author Weight Loss General Obesity, Class III, BMI 40-49.9 (morbid obesity) No Marva Hitchcock Note: Increased activity getting out doors with daughter documented as of this encounter Visit Diagnoses Not on filedocumented in this encounter Care Teams Toe Stapler Relationship Specialty Start Date End Date Ayla Solomon DO [facility] [facility] [address] [place] [address] PCP - General General Surgery 04/12/21 documented as of this encounter
--- OUTSIDE RECORDS SUMMARY | 2023-12-04 20:15 | XMS_ITS | Encounter Summary ---
Author Organization [facility] Address [address] [place] [address] Care Team Providers Care Photographic Processor Name Role Phone Juanito Aylaflorence Boogie DO Primary Care Provider [phone] Reason for Referral * SKILLED NURSING FACILITIES PROFESSIONAL (Routine/Next Available) - Order Cancelled Specialty Diagnoses / Procedures Referred By Contac t Referred To Contact Diagnoses Encounter for supervision of other normal in second trimester Procedures US OB FOLLOWUP Braulio Scanlon MD [address] [address] JAIL Referral ID Status Reason Start Date Expiration Date V isits Requested Visits Authorized [id number] Order Cancelled 05/23/2021 4 4 Reason for Visit * SKILLED NURSING FACILITIES PROFESSIONAL (Routine/Next Available) - Order Cancelled Specialty Diagnoses / Procedures Referred By Eugene asencio Referred To Contact Diagnoses Encounter for supervision of other normal in second trimester Procedures US OB FOLLOWUP Braulio Scanlon MD [address] [address] JAIL Referral ID Status Reason Start Date Expiration Date V isits Requested Visits Authorized [id number] Order Cancelled 05/23/2021 4 4 Encounter Details Date Type Department Care Team (Latest Contact Info) Description 06/23/2021 9:04 EDT - 06/23/2021 23:59 EDT Hospital Encounter [facility] Obstetrics Services - [address] [address] Encounter for supervision of other normal in [...] Sig Dispensed Refills Start Date End Date albuterol 90 mcg/actuation inhalerIndications:Mild intermittent asthma without complication Inhale 2 Puffs as directed every 4 hours as needed for Wheezing. 1 Inhaler 11 09/13/2019 no122/iron/folic acid ( MULTI ORAL) Take by mouth. valACYclovir (VALTREX) 500 mg tabletIndications:PCR DNA positive for HSV1 TAKE ONE TABLET BY MOUTH TWICE A DAY 10 Tab 1 03/15/2020 atomoxetine (STRATTERA) 80 mg capsuleIndications:Atten tion deficit hyperactivity disorder (ADHD), unspecified ADHD type Take 1 Cap by mouth daily. 30 Cap 3 05/05/2019 08/08/2021 insulin NPH (NOVOLIN N) 100 unit/mL (3 mL) injectable pen Inject 10 units into skin at bedtime as instructed. 5 Each 3 06/23/2021 07/07/2021 insulin pen needles 31G x 5/16 BD [...] Priority Date/Time Associated Diagnosis Comments US OB FOLLOWUP Routine 06/23/2021 10:36 EDT Encounter for supervision of other normal in second trimester documented in this encounter Results * US OB FOLLOWUP (06/23/2021 10:36 EDT) Anatomical Region Laterality Modality Pelvis Ultrasound 06/23/2021 10:0 6 EDT Narrative 06/23/2021 10:41 EDT Indication BMI 51.9 (Right hand, left forearm, maxilla and mandible were not visualized on Detailed anatomy scan). History ======= General History Height 157 cm Height (ft) ?5 ft Height (in) ?2 in Previous Outcomes ?2 Para ?? 1 Patel children born (T) ?1 Patel children born (P) ?0 Abortions (A) ??0 Patel living children (L) ??1 Number of fetuses: 1. Maternal Assessment Height 157 cm Height (ft) ?5 ft Height (in) ?2 in Physical Exam Initial weight 129 kg Initial weight (lb) ?284 lb Initial BMI ?51.94 kg/m?? Dating ======= LMP on: ?10/24/2020 GA by LMP ??34 w + 4 d GEOVANI by LMP : ? 07/31/2021 Stated Dating on: ?01/07/2021 GA at stated dating date 9 w + 0 d GA by stated dating ??32 w + 6 d GEOVANI by stated dating: ?08/12/2021 Ultrasound examination on: 06/23/2021 GA by U/S based upon: ??AC, BPD, Femur, HC GA by U/S ??32 w + 2 d GEOVANI by U/S: ?08/16/2021 Assigned: ??Dating performed on 05/23/2021, based on the external assessment (on 01/07/2021) Assigned GA ?32 w + 6 d Assigned GEOVANI: ??08/12/2021 General Evaluation Cardiac activity: Present. FHR 145 bpm. movements: visualized. Presentation: cephalic Spine anterior. Placenta: posterior, right. Amniotic fluid: Amount of AF: normal. MVP 5.1 cm. CHRISTI 13.0 cm. Q1 1.8 cm, Q2 3.1 cm, Q3 3.0 cm, Q4 5.1 cm. Anatomy Cranium: ?? normal Lateral ventricles: ?normal Midline falx: ??normal Cranium: ?? normal shape and size Maxilla: ?? normal Maxilla: ?? in suboptimal views Mandible: ??normal Mandible: ??in suboptimal views 4-chamber view: ?normal Stomach: ?? normal Kidneys: ?? normal Bladder: ?? normal Rt hand: ?? normal Lt forearm: ?normal Position of hands: normal/ Gender: Unreported Wants to know gender: ??No Biometry Biometry BPD ?80.0 mm 22% 32w 1d Hadlock OFD ?100.8 mm ?43% 32w 4d Jose HC 292.3 mm ?21% 31w 3d Chervenak AC 286.9 mm ?46% 32w 5d Hadlock Femur ??64.5 mm 77% 33w 0d Jose Cerebellum tr ??41.4 mm 71% 34w 1d Osborn Humerus ?57.7 mm 78% 33w 3d Jose EFW ?2,047 g 33% Hart Calculated by: Hadlock ([id number]-FL) EFW (lb) ?? 4 lb EFW (oz) ?? 8 oz Cephalic index 0.79 ?43% Nicolaides HC / AC ?1.02 FL / BPD ?? 0.81 FL / AC ?0.22 MVP ?5.1 cm CHRISTI ?13.0 cm FHR ?145 bpm Head / Face / Neck Civilian [employer] Officer 6.9 mm Extremities / Bony Struc Radius 46.5 mm 55% 33w 4d Jose Ulna ?? 54.5 mm 75% 34w 2d Jose Method ======== Transabdominal ultrasound examination, Voluson E10. View: Limited by maternal habitus. Impression [id number] Follow-up obstetrical ultrasound This is a patel gestation. biometry is consistent with prior dating. The right hand and left forearm were visualized on today's scan. The maxilla and mandible were still not adequately visualized Except where noted above, the anatomy was not reviewed in detail as this is a follow-up study and the anatomy was previously assessed. Normal fluid and movement are noted. Follow-up Follow-up as clinically indicated. DATE OF SERVICE: 06/23/2021 Procedure Note Mary Jo Zuñiga MD - 06/23/2021 Indication BMI 51.9 (Right hand, left forearm, maxilla and mandible were not visualized onDetailed anatomy scan). History ======= General History Height 157 cm Height (ft) 5 ft Height (in) 2 in Previous Outcomes 2 Para 1 Patel children born (T) 1 Patel children born (P) 0 Abortions (A) 0 Patel living children (L) 1 Number of fetuses: 1. Maternal Assessment Height 157 cm Height (ft) 5 ft Height (in) 2 in Physical Exam Initial weight 129 kg Initial weight (lb) 284 lb Initial BMI 51.94 kg/m?? Dating ======= LMP on: 10/24/2020 GA by LMP 34 w + 4 d GEOVANI by LMP : 07/31/2021 Stated Dating on: 01/07/2021 GA at stated dating date 9 w + 0 d GA by stated dating 32 w + 6 d GEOVANI by stated datin08/12/2021 Ultrasound examination on: 06/23/2021 GA by U/S based upon: AC, BPD, Femur, HC GA by U/S 32 w + 2 d GEOVANI by U/S: 08/16/2021 Assigned: Dating performed on 05/23/2021, based on the externalassessment (on 01/07/2021) Assigned GA 32 w + 6 d Assigned GEOVANI: 08/12/2021 General Evaluation Cardiac activity: Present. FHR 145 bpm. movements: visualized. Presentation: cephalic Spine anterior. Placenta: posterior, right. Amniotic fluid: Amount of AF: normal. MVP 5.1 cm. CHRISTI 13.0 cm. Q1 1.8 cm,Q2 3.1 cm, Q3 3.0 cm, Q4 5.1 cm. Anatomy Cranium: normal Lateral ventricles: normal Midline falx: normal Cranium: normal shape and size Maxilla: normal Maxilla: in suboptimal views Mandible: normal Mandible: in suboptimal views 4-chamber view: normal Stomach: normal Kidneys: normal Bladder: normal Rt hand: normal Lt forearm: normal Position of hands: normal/ Gender: Unreported Wants to know gender: No Biometry Biometry BPD 80.0 mm 22% 32w 1d Hadlock OFD 100.8 mm 43% 32w 4d Jose HC 292.3 mm 21% 31w 3d Chervenak AC 286.9 mm 46% 32w 5d Hadlock Femur 64.5 mm 77% 33w 0d Jose Cerebellum tr 41.4 mm 71% 34w 1d Osborn Humerus 57.7 mm 78% 33w 3d Jose EFW 2,047 g 33% Hart Calculated by: Hadlock ([id number]-[id number]-FL) EFW (lb) 4 lb EFW (oz) 8 oz Cephalic index 0.79 43% Nicolaides HC / AC 1.02 FL / BPD 0.81 FL / AC 0.22 MVP 5.1 cm CHRISTI 13.0 cm FHR 145 bpm Head / Face / Neck Civilian [employer] Officer 6.9 mm Extremities / Bony Struc Radius 46.5 mm 55% 33w 4d Jose Ulna 54.5 mm 75% 34w 2d Jose Method ======== Transabdominal ultrasound examination, Voluson E10. View: Limited bymaternal habitus. Impression [id number] Follow-up obstetrical ultrasound This is a patel gestation. biometry is consistent with prior dating. The right hand and left forearm were visualized on today's scan. Themaxilla and mandible were still not adequately visualized Except where noted above, the anatomy was not reviewed in detail asthis is a follow-up study and the anatomy was previously assessed. Normal fluid and movement are noted. Follow-up Follow-up as clinically indicated. DATE OF SERVICE: 06/23/2021 Braulio Scanlon MD IMG US OB ORDERABL ES documented in this encounter Visit Diagnoses Diagnosis Encounter for supervision of other normal in second trimester documented in this encounter Care Teams Photographic Processor Relationship Specialty Start Date End Date Ayla Solomon DO [facility] [facility] [address] [place] [address] PCP - General General Surgery 04/12/21 documented as of this encounter
--- OUTSIDE RECORDS SUMMARY | 2023-12-04 20:15 | XMS_ITS | Encounter Summary ---
Author Organization [facility] Address [address] [place] [address] Care Team Providers Care Commuter Train Operator Name Role Phone Juanito Aylaflorence Boogie DO Primary Care Provider [phone] Encounter Details Date Type Department Care Team (Latest Contact Info) Description 04/12/2021 Travel Social History Tobacco Use Types Packs/Day [...] on filedocumented in this encounter Care Teams Commuter Train Operator Relationship Specialty Start Date End Date Ayla Solomon DO [facility] [facility] [address] [place] [address] PCP - General General Surgery 04/12/21 documented as of this encounter
--- OUTSIDE RECORDS SUMMARY | 2023-12-04 20:15 | XMS_ITS | Encounter Summary ---
Author Organization [facility] Address [address] [place] [address] Care Team Providers Care Design Project Manager Name Role Phone Ayla Solomon DO Primary Care Provider [phone] Encounter Details Date Type Department Care Team (Latest Contact Info) Description 05/23/2021 8:10 EDT - 05/23/2021 23:59 EDT Hospital Encounter [facility] Obstetrics Services - [facility] [address] [place], [place] [address] Supervision of high risk in second trimester Discharge Disposition: Home or [...] mouth daily. 30 Cap 3 05/05/2019 08/08/2021 levothyroxine (SYNTHROID) 200 mcg tablet Take [...] Class III, BMI 40-49.9 (morbid obesity) No Sikule, Marva Note: Increased activity getting out doors with daughter documented as of this encounter Procedures Procedure Name Priority Date/Time Associated Diagnosis Comments US OB DETAILED Routine 05/23/2021 9:53 EDT Supervision of high risk in second trimester documented in this encounter Results * US OB DETAILED (05/23/2021 9:53 EDT) Anatomical Region Laterality Modality Pelvis Ultrasound 05/23/2021 8:23 EDT Narrative 05/23/2021 10:07 EDT Indication BMI 51.9 Graves . History ======= General History Height 157 cm Height (ft) ?5 ft Height (in) ?2 in Previous Outcomes ?2 Para ?? 1 Patle children born (T) ?1 Patel children born (P) ?0 Abortions (A) ??0 Patel living children (L) ??1 Maternal Assessment Height 157 cm Height (ft) ?5 ft Height (in) ?2 in Physical Exam Initial weight 129 kg Initial weight (lb) ?284 lb Initial BMI ?51.94 kg/m?? Number of fetuses: 1. Dating ======= LMP on: ?10/24/2020 GA by LMP ??30 w + 1 d GEOVANI by LMP : ? 07/31/2021 Method of dating: ??based on the external assessment Stated Dating on: ?01/07/2021 GA at stated dating date 9 w + 0 d GA by stated dating ??28 w + 3 d GEOVANI by stated dating: ?08/12/2021 Ultrasound examination on: 05/23/2021 GA by U/S based upon: ??AC, BPD, Femur, HC GA by U/S ??28 w + 3 d GEOVANI by U/S: ?08/12/2021 Assigned: ??Dating performed on 05/23/2021, based on the external assessment (on 01/07/2021) Assigned GA ?28 w + 3 d Assigned GEOVANI: ??08/12/2021 General Evaluation Cardiac activity: Present. FHR 153 bpm. movements: visualized. Presentation: variable. Placenta: posterior, fundal. Umbilical cord: Cord vessels: 3 vessel cord. Cord insertion: placental insertion: normal. Amniotic fluid: Amount of AF: normal. MVP 5.5 cm. CHRISTI 18.1 cm. Q1 5.5 cm, Q2 3.9 cm, Q3 4.5 cm, Q4 4.3 cm. Biometry Biometry BPD ?70.0 mm 28% 28w 1d Hadlock OFD ?91.9 mm 80% 29w 4d Jose HC 260.5 mm ?36% 27w 6d Chervenak AC 250.3 mm ?68% 29w 2d Hadlock Femur ??53.9 mm 65% 28w 4d Jose Cerebellum tr ??31.7 mm 43% 28w 4d Osborn CM 5.1 mm ??9% Nicolaides Humerus ?49.9 mm 67% 29w 2d Jose EFW ?1,293 g 36% Hart Calculated by: Hadlock (OBR-DI-EN-FL) EFW (lb) ?? 2 lb EFW (oz) ?? 14 oz Cephalic index 0.76 ?21% Nicolaides HC / AC ?1.04 FL / BPD ?? 0.77 FL / AC ?0.22 MVP ?5.5 cm CHRISTI ?18.1 cm FHR ?153 bpm Head / Face / Neck Career Development Counselor 6.1 mm Nasal bone 11.7 mm Extremities / Bony Struc Radius 39.3 mm 39% 27w 2d Jose Ulna ?? 46.0 mm 52% 29w 3d Jose Tibia ??48.1 mm 70% 29w 0d Jose Fibula 47.9 mm 67% 29w 3d Jose Foot ?? 44.9 mm <1% Chitty Anatomy Cranium: ?? normal Lateral ventricles: ?normal Choroid plexus: ?normal Midline falx: ??normal Cavum septi pellucidi: normal Cerebellum: ?normal Cisterna magna: ?normal Parenchyma: ?normal Cerebellar lobes: ??normal Vermis: ?normal Neck: ??normal Nuchal fold: ?? normal Lips: ??normal Profile: ?? normal Nose: ??normal Maxilla: ?? normal Maxilla: ?? in suboptimal views Mandible: ??normal Mandible: ??in suboptimal views 4-chamber view: ?normal RVOT: ??normal LVOT: ??normal Situs: normal Aortic arch: ?? normal SVC: ?? normal IVC: ?? normal 3-vessel view: normal 6-cxwidy-njfojst view: normal Rt lung: ?? normal Lt lung: ?? normal Diaphragm: normal Cord insertion: ?normal Stomach: ?? normal Bladder: ?? normal Genitals: ??normal Abdom. wall: ?? normal Rt kidney: normal Lt kidney: normal Liver: normal Cervical spine: ?normal Thoracic spine: ?normal Lumbar spine: ??normal Sacral spine: ??normal Skeleton: ??normal Arms: ??normal Legs: ??normal Rt arm: ?normal Lt arm: ?normal Rt hand: ?? not adequately visualized Lt forearm: ?not adequately visualized Lt hand: ?? normal Rt leg: ?normal Lt leg: ?normal Rt foot: ?? normal Lt foot: ?? normal/ Gender: Unreported Wants to know gender: ??No Aneuploidy Screening Age ?27 yrs Echogenic focus: ?? no Include: ?? intracardiac echogenic focus Include: ?? ventriculomegaly Include: ?? nuchal fold Include: ?? echogenic bowel Include: ?? mild hydronephrosis Ventriculomegaly: ??no Nuchal fold: ?? normal Echogenic bowel: ?? no Pyelectasis: ?? no Short femur: ?? no Include: ?? short humerus Include: ?? nasal bone Short humerus: no Nasal bone: ?present Display risk: ??Risk at time of screening Maternal Structures Uterus / Cervix Uterus: ?Appears normal Cervix: ?Appears normal Ovaries / Tubes / Adnexa Rt ovary: ??Visualized, normal appearance Rt ovary D1 ?2.5 cm Rt ovary D2 ?1.1 cm Rt ovary D3 ?2.5 cm Rt ovary mean ??2.0 cm Rt ovary vol ?? 3.6 cm cubed Lt ovary: ??Visualized, normal appearance Lt ovary D1 ?3.4 cm Lt ovary D2 ?3.5 cm Lt ovary D3 ?1.7 cm Lt ovary mean ??2.9 cm Lt ovary vol ?? 10.4 cm cubed Method ======== Transabdominal ultrasound examination, Voluson E10. View: Poor view Limited by maternal habitus Limited by position. Impression [id number] Obstetrical ultrasound with and maternal evaluation, including detailed anatomic examination This is a patel gestation. Biometry is consistent with prior outside dating 01/07/2021 @ 9 weeks. Images are limited by maternal habitus and advanced gestational age. The maxilla and mandible appeared normal in suboptimal views. The right hand and left forearm were not adequately visualized. Anatomy appears normal as noted above; however, ultrasound cannot detect all anomalies. As per the SMFM guidelines, the following were evaluated and were normal: the cerebellum (including lobes and vermis), facial profile, the chest (including examination for masses, effusion, integrity of both sides of the diaphragm and lung parenchyma), abdomen for ascites, 12-long bones with normal architecture/position of limbs, hands and feet, placental insertion site of the umbilical cord and placenta for masses. The amniotic fluid volume is normal. There is trunk and extremity movement noted. Follow-up Follow-up as clinically indicated. DATE OF SERVICE: 05/23/2021 Procedure Note Mary Jo Zuñiga MD - 05/23/2021 Indication BMI 51.9 Graves . History ======= General History Height 157 [...] ======= LMP on: 10/24/2020 GA by LMP 30 w + 1 d GEOVANI by LMP : 07/31/2021 Method of dating: based on the external assessment Stated Dating on: 01/07/2021 GA at stated dating date 9 w + 0 d GA by stated dating 28 w + 3 d GEOVANI by stated datin08/12/2021 Ultrasound examination on: 05/23/2021 GA by U/S based upon: AC, BPD, Femur, HC GA by U/S 28 w + 3 d GEOVANI by U/S: 08/12/2021 Assigned: Dating performed on 05/23/2021, based on the externalassessment (on 01/07/2021) Assigned GA 28 w + 3 d Assigned GEOVANI: 08/12/2021 General Evaluation Cardiac activity: Present. FHR 153 bpm. movements: visualized. Presentation: variable. Placenta: posterior, fundal. Umbilical cord: Cord vessels: 3 vessel cord. Cord insertion: placentalinsertion: normal. Amniotic fluid: Amount of AF: normal. MVP 5.5 cm. CHRISTI 18.1 cm. Q1 5.5 cm,Q2 3.9 cm, Q3 4.5 cm, Q4 4.3 cm. Biometry Biometry BPD 70.0 mm 28% 28w 1d Hadlock OFD 91.9 mm 80% 29w 4d Jose HC 260.5 mm 36% 27w 6d Chervenak AC 250.3 mm 68% 29w 2d Hadlock Femur 53.9 mm 65% 28w 4d Jose Cerebellum tr 31.7 mm 43% 28w 4d Osborn CM 5.1 mm 9% Nicolaides Humerus 49.9 mm 67% 29w 2d Jose EFW 1,293 g 36% Hart Calculated by: Hadlock (DWD-JT-KG-FL) EFW (lb) 2 lb EFW (oz) 14 oz Cephalic index 0.76 21% Nicolaides HC / AC 1.04 FL / BPD 0.77 FL / AC 0.22 MVP 5.5 cm CHRISTI 18.1 cm FHR 153 bpm Head / Face / Neck Career Development Counselor 6.1 mm Nasal bone 11.7 mm Extremities / Bony Struc Radius 39.3 mm 39% 27w 2d Jose Ulna 46.0 mm 52% 29w 3d Jose Tibia 48.1 mm 70% 29w 0d Jose Fibula 47.9 mm 67% 29w 3d Jose Foot 44.9 mm <1% Chitty Anatomy Cranium: normal Lateral ventricles: normal Choroid plexus: normal Midline falx: normal Cavum septi pellucidi: normal Cerebellum: normal Cisterna magna: normal Parenchyma: normal Cerebellar lobes: normal Vermis: normal Neck: normal Nuchal fold: normal Lips: normal Profile: normal Nose: normal Maxilla: normal Maxilla: in suboptimal views Mandible: normal Mandible: in suboptimal views 4-chamber view: normal RVOT: normal LVOT: normal Situs: normal Aortic arch: normal SVC: normal IVC: normal 3-vessel view: normal 7-soytrv-eunldad view: normal Rt lung: normal Lt lung: normal Diaphragm: normal Cord insertion: normal Stomach: normal Bladder: normal Genitals: normal Abdom. wall: normal Rt kidney: normal Lt kidney: normal Liver: normal Cervical spine: normal Thoracic spine: normal Lumbar spine: normal Sacral spine: normal Skeleton: normal Arms: normal Legs: normal Rt arm: normal Lt arm: normal Rt hand: not adequately visualized Lt forearm: not adequately visualized Lt hand: normal Rt leg: normal Lt leg: normal Rt foot: normal Lt foot: normal/ Gender: Unreported Wants to know gender: No Aneuploidy Screening Age 25 yrs Echogenic focus: no Include: intracardiac echogenic focus Include: ventriculomegaly Include: nuchal fold Include: echogenic bowel Include: mild hydronephrosis Ventriculomegaly: no Nuchal fold: normal Echogenic bowel: no Pyelectasis: no Short femur: no Include: short humerus Include: nasal bone Short humerus: no Nasal bone: present Display risk: Risk at time of screening Maternal Structures Uterus / Cervix Uterus: Appears normal Cervix: Appears normal Ovaries / Tubes / Adnexa Rt ovary: Visualized, normal appearance Rt ovary D1 2.5 cm Rt ovary D2 1.1 cm Rt ovary D3 2.5 cm Rt ovary mean 2.0 cm Rt ovary vol 3.6 cm cubed Lt ovary: Visualized, normal appearance Lt ovary D1 3.4 cm Lt ovary D2 3.5 cm Lt ovary D3 1.7 cm Lt ovary mean 2.9 cm Lt ovary vol 10.4 cm cubed Method ======== Transabdominal ultrasound examination, Voluson E10. View: Poor view Limited by maternal habitus Limited by position. Impression [id number] Obstetrical ultrasound with and maternal evaluation, includingdetailed anatomic examination This is a patel gestation. Biometry is consistent with prior outsidedating 01/07/2021 @ 9 weeks. Images are limited by maternal habitus and advanced gestational age. Themaxilla and mandible appeared normal in suboptimal views. The right handand left forearm were not adequately visualized. Anatomy appears normal as noted above; however, ultrasound cannotdetect all anomalies. As per the SMFM guidelines, the following were evaluated and were normal:the cerebellum (including lobes and vermis), facial profile, the chest(including examination for masses, effusion, integrity of both sides ofthe diaphragm and lung parenchyma), abdomen for ascites, 12-long boneswith normal architecture/position of limbs, hands and feet, placentalinsertion site of the umbilical cord and placenta for masses. The amniotic fluid volume is normal. There is trunk and extremitymovement noted. Follow-up Follow-up as clinically indicated. DATE OF SERVICE: 05/23/2021 Mena Hunt MD IMG OB ORDERABLES documented in this encounter Visit Diagnoses Diagnosis Supervision of high risk in second trimester Unspecified high-risk documented in this encounter Care Teams Design Project Manager Relationship Specialty Start Date End Date Ayla Solomon DO Counts include 234 beds at the [facility] [address] [place] [address] PCP - General General Surgery 04/12/21 documented as of this encounter
--- OUTSIDE RECORDS SUMMARY | 2023-12-04 20:15 | XMS_ITS | Encounter Summary ---
Author Organization [facility] Address [address] [place] [address] Care Team Providers Care Smoke Jumper Name Role Phone Danyel Forde DO Primary Care Provider + Ayla Solomon DO Primary Care Provider [phone] Encounter Details Date Type Department Care Team (Late st Contact Info) Description 01/28/2021 Lab Requisition [facility] Pathology & Laboratory Medicine - [facility] [address] [place] [address] Outr Resulting Lab, Provider Social History Tobacco [...] Comments CHLAMYDIA/N. GONORRHOEAE AMPLIFIED NUCLEIC ACID Routine 01/27/2021 14:45 EST documented in this encounter Results * CHLAMYDIA/N. GONORRHOEAE AMPLIFIED RNA (01/27/2021 14:45 EST) Neisseria gonorrhoeae Result Negative Negative 01/29/2021 14:08 EST [facility] Chlamydia trachomatis Result Negative Negative 01/29/2021 14:08 EST [facility] Swab ENTIRE ENDOCERVIX / Unknown 01/27/2021 14:45 EST 01/28/2021 17:04 EST Provider Outr Resulting Lab MICROBIOLOGY - GENERAL ORDERABLES [facility] [address] [place] [address] documented in this encounter Visit Diagnoses Not on filedocumented in this encounter Additional Health Concerns Infection Onset Date Last Indicated Resolved Time COVID-19 07/14/202107/1407/14/2021 07/25/2021 22:1 6 EDT documented as of this encounter Care Teams Smoke Jumper Relationship Specialty Start Date End Date Danyel Forde DO PCP - General Family Medicine - Primary Care 08/29/20 04/11/21 Ayla Solomon DO [facility] [address] [address] PCP - General General Surgery 04/12/21 documented as of this encounter
--- OUTSIDE RECORDS SUMMARY | 2023-12-04 20:15 | XMS_ITS | Encounter Summary ---
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 Phlebotomy Health examination in population survey (Primary Dx); Status post radioactive iodine thyroid ablation; Hypothyroidism, postablative; Encounter for supervision of other normal in second trimester; Supervision of other normal Social History Tobacco Use Types Packs/Day Years [...] Procedure Name Priority Date/Time Associated Diagnosis Comments LAB VENIPUNCTURE DRAW TEST Routine 06/23/2021 11:47 EDT Health examination in population survey REFERRAL TEST 1 Routine 06/23/2021 11:47 EDT Health examination in population survey Status post radioactive iodine thyroid ablation Hypothyroidism, postablative Encounter for supervision of other normal in second trimester Supervision of other normal ABO/RH Routine 06/23/2021 11:47 EDT Encounter for supervision of other normal in second trimester TSH Routine 06/23/2021 11:47 EDT Status post radioactive iodine thyroid ablation Hypothyroidism, postablative T4 FREE Routine 06/23/2021 11:47 EDT Status post radioactive iodine thyroid ablation Hypothyroidism, postablative documented in this encounter Results * REFERRAL TEST 1 (06/23/2021 11:47 EDT) Test Name GOODWIN NIPS, ADD ON SEX CHROMOSOME 07/03/2021 9:57 EDT [facility] Result 07/03/2021 9:57 EDT [facility] Comment:See Scanned Results in Patient's Chart. Ref Lab [facility] 07/03/2021 9:57 EDT [facility] Blood VENOUS BLOOD / Unknown Venipuncture / Unknown 06/23/2021 11:47 EDT 06/23/2021 12:28 EDT Braulio Scanlon MD LAB INFO SERVICE A ND SUPPORT & PHONE RESULT [facility] [address], [place] [address] * ABO/RH (06/23/2021 11:47 EDT) ABO O 06/23/2021 12:25 EDT [facility] Rh Factor Positive 06/23/2021 12:25 EDT [facility] Blood VENOUS BLOOD / Unknown Venipuncture / Unknown 06/23/2021 11:47 EDT 06/23/2021 11:58 EDT Braulio Scanlon MD BLOOD BANK TESTS [facility] [address] [place] [id number] * T4 FREE (06/23/2021 11:47 EDT) T4, Free 1.2 0.8 - 2.2 ng/dL 06/23/2021 13:04 EDT [facility] Blood VENOUS BLOOD / Unknown Venipuncture / Unknown 06/23/2021 11:47 EDT 06/23/2021 12:18 EDT Grazyna Adams DO CHEMISTRY & BLOOD GAS ORDERABLES [facility] [address] [place] [address] * TSH (06/23/2021 11:47 EDT) TSH 1.71 0.47 - 4.68 mIU/L 06/23/2021 13:18 EDT [facility] Blood VENOUS BLOOD / Unknown Venipuncture / Unknown 06/23/2021 11:47 EDT 06/23/2021 12:18 EDT Narrative [facility] - 06/23/2021 13:18 EDT The results of this assay can be falsely lowered due to the consumption of Biotin. Grazyna Adams DO CHEMISTRY & BLOOD GAS ORDERABLES Performing Organization Address City/[facility]/ZIP Co de Phone Number [facility] [address] [place] [address] * LAB VENIPUNCTURE DRAW TEST (06/23/2021 11:47 EDT) Hold Hold 06/23/2021 13:31 EDT [facility] Blood VENOUS BLOOD / Unknown Venipuncture / Unknown 06/23/2021 11:47 EDT 06/23/2021 12:28 EDT Braulio Scanlon MD LAB INFO SERVICE A ND SUPPORT & PHONE RESULT Performing Organization Address City/[facility]/ZIP Co de Phone Number [facility] [address] [place] [address] documented in this encounter Visit Diagnoses Diagnosis Health examination in population survey- Primary Status post radioactive iodine thyroid ablation Other postprocedural status Hypothyroidism, postablative Other postablative hypothyroidism Encounter for supervision of other normal in second trimester documented in this encounter Care Teams Managing Member Relationship Specialty Start Date End Date Ayla Solomon DO [facility] [address] [place] [address] PCP - General General Surgery 04/12/21 documented as of this encounter
--- OUTSIDE RECORDS SUMMARY | 2023-12-04 20:15 | XMS_ITS | Encounter Summary ---
Author Organization [facility] Address [address] [place] [address] Care Team Providers Care Contracts Manager Name Role Phone Juanito Ayla Keagan LACY Primary Care Provider [phone] Reason for Visit * Reason Onset Date Comments Medical Records 05/26/2021 Encounter Details Date Type Department Care Team (Late st Contact Info) Description 05/26/2021 Telephone [facility] OBGYN Services - [facility] [address] [place], [place] [address] Bethany Flanagan, RN Medical Records Social History Tobacco Use Types Packs/Day Years [...] Telephone Encounter - Bethany Flanagan, RN - 05/26/2021 1311 EDT Received CMP and CRP from outside provider. Originally looking for 3 hour GTT. Called the office to ask again for 3 hour GTT. They said that the 3 hour GTT was not completed on Wednesday. They will fax over today. Given fax #. No further needs at this time. documented in this [...] on filedocumented in this encounter Care Teams Contracts Manager Relationship Specialty Start Date End Date Ayla Solomon DO [facility] [address] [place] [address] PCP - General General Surgery 04/12/21 documented as of this encounter
--- OUTSIDE RECORDS SUMMARY | 2023-12-04 20:15 | XMS_ITS | Encounter Summary ---
Author Organization [facility] Address [address] [place] [address] Care Team Providers Care Choir Director Name Role Phone Juanito Aylaflorence Boogie DO Primary Care Provider [phone] Reason for Visit * Reason Comments Non-stress Test Encounter Details Date Type Department Care Team (Late st Contact Info) Description 07/01/2021 11:00 EDT Office Visit [facility] Obstetrics & Midwifery - [facility] [address] [place], [place] [id number] Insulin controlled gestational diabetes mellitus (GDM) in [...] Sign Reading Time Taken Comments Blood Pressure 117/75 07/01/2021 1040 EDT Pulse - - Temperature - - [...] Notes * Mary Jo Zuñiga MD - 07/01/2021 1100 EDT NST Report Baseline Heart Rate: 155 Accelerations: present Movement: present Decelerations: absent Contractions: absent Interpretation: reactive Mary Jo Zuñiga MD 07/01/2021 12:43 documented in this encounter Plan of Treatment [...] Primary documented in this encounter Care Teams Choir Director Relationship Specialty Start Date End Date Ayla Solomon DO [facility] [address] [place] [address] PCP - General General Surgery 04/12/21 documented as of this encounter
--- OUTSIDE RECORDS SUMMARY | 2023-12-04 20:15 | XMS_ITS | Encounter Summary ---
Author Organization [facility] Address [address] [place] [address] Care Team Providers Care Balance Wheel Screw Hole Tapper Name Role Phone JuanitoAyla Keagan LACY Primary Care Provider [phone] Encounter Details Date Type Department Care Team (Late st Contact Info) Description 07/13/2021 Orders Only [facility] OBGYN Services - [facility] [place] [address] [place] [address] Lucrecia Briggs MD [address] [place] [phone] Pelvic pain affecting in third trimester, antepartum (Primary Dx) Social History Tobacco Use Types [...] as of this encounter Visit Diagnoses Diagnosis Pelvic pain affecting in third trimester, antepartum- Primary documented in this encounter Care Teams Balance Wheel Screw Hole Tapper Relationship Specialty Start Date End Date Ayla Solomon DO [facility] [address] [place] [address] PCP - General General Surgery 04/12/21 documented as of this encounter
--- OUTSIDE RECORDS SUMMARY | 2023-12-04 20:15 | XMS_ITS | Encounter Summary ---
Author Organization [facility] Address [address] [place] [address] Care Team Providers Care Jewel Sorter Name Role Phone Juanito Aylaflorence Boogie DO Primary Care Provider [phone] Reason for Referral * Specialty Diagnoses / Procedures [facility] Referred To Contact Maranda Mathur MD [address] [place] [address] Referral ID Status Reason Start Date Expiration Date Visits Re quested Visits Authorized Reason for Visit * Reason Comments Abdominal Pain pt arrives from OSH. Pt 22 weeks . N/V starting yesterday, then R abd pain starting last night at 1900. Pt tx due to OSH not having any imaging availability. 6/10 pain currently. Morphine, tylenol, zofran given at OSH. Encounter Details Date Type Department Care Team (Late st Contact Info) Description 04/12/2021 5:15 EST - 04/12/2021 9:10 EST Emergency [facility] [address], [place] [id number] Ely Maldonado MD [address] [facility], Level [address] [place] [address] Dylan Patel MD Right lower quadrant abdominal pain (Primary Dx) Discharge Disposition: Home or Self Care Social [...] 5:24 EST documented as of this encounter Last Filed Vital Signs Vital Sign Reading Time Taken Comments Blood Pressure 123/72 04/12/2021 0631 EST Pulse - - Temperature 36.9 ??C (98.4 ??F) 04/12/2021 0631 EST Respiratory Rate 18 04/12/2021 0631 EST Oxygen Saturation 98% 04/12/2021 0523 EST Inhaled Oxygen Concentration - - Weight 127 kg (280 lb) 04/12/2021 0523 EST Height - - Body Mass Index 50.24 09/13/2019 1403 EDT documented in this encounter Functional Status [...] needed for Wheezing. 1 Inhaler 11 09/13/2019 valACYclovir (VALTREX) 500 mg tabletIndications:PCR DNA positive [...] Code Departure Means Destination Home or Self [facility] documented in this encounter Progress Notes * Jun Sun MD - 04/12/2021 0625 EST L&D Triage Note C/C: RLQ pain Tiny Cline is a 25 y.o. @ 24+2 by LMP presenting as a transfer with RLQ pain. She states she has had mild RLQ pain for about 2 weeks however last night it became suddently worse while she was watching tv. She states the pain is constant and is felt in the RLQ and radiating in to the inguinal region. She denies fevers, changes in bowel or bladder, ctx, LOF, VB, +FM. Notes loose stools that are normal for her since she had her gallbladder removed and mild nausea with no vomiting that has been present throughout her . c/b: -Graves disease now hypothyroid on levothyroxine -s/p cholecystectomy O: BP 110/56 Temp 36.4 ??C (97.6 ??F) (Oral) Resp 18 Wt (!) 127 kg (280 lb) SpO2 98% BMI 50.24 kg/m?? FHT: 140 baseline, mod variability, pos accels, no decels; Category 1 tracing [place]: quiet SSE: normal external genitalia, vaginal rugae and cervix, appears closed, no bleeding, physiologic dc SVE: closed/long/high Bedside U/S: deferred Abdominal US: IMPRESSION 1. The appendix is not identified in the right lower quadrant. 2. No sonographic evidence of right ovarian torsion. UA: pending A/P: Tiny Cline is a 25 y.o. @ 24+2 presenting for acute on chronic RLQ pain. Reactive NST. AVSS and non toxic appearing with pain resolved while on L+D, abdominal US not revealing. -given pain has resolved, plan for dc to home, return precautions -will call with positive UA Jun Sun D.O. 04/12/2021 6:25 Obstetrics/Gynecology PGY-1 Pager #[phone] documented in this encounter ED Notes * Verenice Iverson RN - 04/12/2021 0603 EST Plan for pt to be admitted up to L&D floor after U/S complete. MD Maldonado aware. Report called [employer]. Pt wheeled up to floor in w/c, left dept in NAD. * Ely Maldonado MD - 04/12/2021 0557 EST This patient received an evaluation and medical screening exam for emergent medical conditions at the [facility] on 04/12/2021 Scribe attestation: This documentation is recorded by Noemi Curtis acting as Scribe under the direction and presence of Ely Maldonado MD. Ely Maldonado MD: I personally performed the services recorded by the scribe in my presence. I confirm the scribe's documentation has been reviewed by me to accurately and completely record my work, treatment, procedures, and medical decision making. HPI Tiny lCine is a 25 y.o. female with PMH including Graves disease who presents to the ED via EMS transfer from outside hospital for abdomen ultrasound in the setting of RLQ abdominal pain. The patient is currently 22 weeks . The patient reports she has had a few weeks of intermittent pain in her RLQ that she thought was just the baby. She notes last night she had acute onset of worsening abdominal pain at 19:00. She endorses nausea and vomiting intermittently. She states she is with her second child and was very ill with her first. She denies any decrease in urinary symptoms. The patient denies fevers, chills, cough, or shortness of breath. History was provided by: patient and medical records Patient's pertinent PMH, FH, SH were reviewed and updated PRN. ROS A 10-point review of systems was performed. The patient answered negative to all questions with theexceptions of those explicitly detailed as positives in the HPI. Pertinent negatives are also explicitly stated. Physical Exam Vital Signs Temp: 36.4 ??C (97.6 ??F) Temp src: Oral Heart Rate: 82 BPM Resp: 18 SpO2: 98 % BP: 110/56 BP Device: BP Machine Physical Exam Vitals and nursing note reviewed. Constitutional: General: She is not in acute distress. HENT: Head: Normocephalic and atraumatic. Right Ear: External ear normal. Left Ear: External ear normal. Nose: Nose normal. Mouth/Throat: Mouth: Mucous membranes are moist. Eyes: Extraocular Movements: Extraocular movements intact. Pupils: Pupils are equal, round, and reactive to light. Cardiovascular: Rate and Rhythm: Normal rate and regular rhythm. Heart sounds: No murmur heard. No friction rub. No gallop. Pulmonary: Effort: Pulmonary effort is normal. No respiratory distress. Breath sounds: No wheezing, rhonchi or rales. Abdominal: General: There is no distension. Palpations: Abdomen is soft. Tenderness: There is abdominal tenderness (Mild) in the right lower quadrant. There is no guarding or rebound. Musculoskeletal: General: Normal range of motion. Cervical back: Normal range of motion. Skin: General: Skin is warm and dry. Neurological: General: No focal deficit present. Mental Status: She is alert and oriented to person, place, and time. Mental status is at baseline. Psychiatric: Mood and Affect: Mood normal. Behavior: Behavior normal. Procedures Procedures Laboratory Results Labs Reviewed - No data to display ED Course A medical screening exam was performed. The patient is a 25 y.o. female with a history of Grave's disease who presents to the ED with acuteonset of RLQ abdominal pain at 1900 last night. The patient was seen at an outside hospital and wastransferred here for an ultrasound. Physical exam was significant for mild RLQ abdominal tenderness, no rebound or guarding. Patient had a Abdomen ultrasound, significant for The appendix is not identified in the right lowerquadrant. No sonographic evidence of right ovarian torsion. Obtained, reviewed, and interpreted by the radiologist. Please see radiology report for further details. (05:56) Spoke with OBGYN who recommended transfer to L&D. Patient transferred to L&D in stable condition. While under my care in the Emergency Department, the patient's pain was managed to an adequate level weighing risk vs. benefit of medication. Impression Final diagnoses: Right lower quadrant abdominal pain Disposition To L&D Disposition decisions were made weighing risks and benefits of hospitalization vs. outpatient treatment, the risk for further decompensation, and the patient???s wishes. The patient's condition was severe enough to require additional inpatient evaluation and treatment,or the patient was at risk of sudden decompensation. At the end of my care of the patient, the patient's pain was 6 on a zero to ten scale. Any further pain treatment will be at the discretion of the provider following up with the patient based on their clinical assessment. * Ariel Lane RN - 04/12/2021 0517 EST T-Call: Ca Cline 25 y/o female, 22 weeks, FHT 148, RLQ pain x 4 hours, normal WBC, normal urine, Patient very concerned-wanted MRI - no U/S or CT available, please eval, likely Ultra Sound +/- CT?. Coming from [facility] documented in this encounter Miscellaneous Notes * Plan of Care - Su Stuart RN - 04/12/2021 0923 EST Care assumed at 0715. Received in report that sterile speculum exam was negative for rupture, cervix LTC. Patient denies LOF and vaginal bleeding. Reports pain has improved. [place] placed on patient for NST with FHR. Reporting pain has significantly improved. Discharge instructions reviewed with patient, demonstrates and verbalizes understanding and possession of all personal items. * Result Encounter Note - Dylan Patel MD - 04/12/2021 0910 EST Please call patient with results: negative chlamydia and gonorrhea on 04/12 Thank you, dylan documented in this encounter Plan of Treatment Scheduled Referrals Name Type Priority Associated Diagnoses Order Schedule PROVIDER FOLLOW-UP INSTRUCTIONS Outpatient Referral Routine/Next Available Ordered: 04/12/2021 documented as of this encounter Goals Goal Patient Goal Type Associated Problems Recent Progress Patient-Stated? Author Weight Loss General Obesity, Class III, BMI 40-49.9 (morbid obesity) No Marva Hitchcock Note: Increased activity getting out doors with daughter documented as of this encounter Procedures Procedure Name Priority Date/Time Associated Diagnosis Comments HOLD BLUE TOP Routine 04/12/2021 7:51 EST ZZCOVID-19 TEST [facility] LAB PCR Today 04/12/2021 7:37 EST COVID-19 TESTING Routine 04/12/2021 7:37 EST COMPLETE BLOOD COUNT Routine 04/12/2021 7:37 EST ZZVAGINITIS EXAM Routine 04/12/2021 7:36 EST COMPREHENSIVE METABOLIC PANEL (CMP) Routine 04/12/2021 7:36 EST CHLAMYDIA/N. GONORRHOEAE AMPLIFIED NUCLEIC ACID Routine 04/12/2021 7:30 EST URINE CHEMICAL (DIP) & SEDIMENT (MICRO) WITH REFLEX TO CULTURE Routine 04/12/2021 7:07 EST BACTERIAL CULTURE, URINE Today 04/12/2021 7:07 EST US ABDOMEN LIMITED STAT 04/12/2021 6: 08 EST documented in this encounter Results * HOLD BLUE TOP (04/12/2021 7:51 EST) Hold Hold 04/12/2021 9:01 EST [facility] Blood VENOUS BLOOD / Unknown Venipuncture / Unknown 04/12/2021 7:51 EST 04/12/2021 7:55 EST Jun Sun DO LAB INFO SERVICE AND SUPPORT & PHONE RESULT Performing Organization Address [facility] Co de Phone Number [facility] [address] [place] [address] * COVID-19 TEST [facility] PCR (04/12/2021 7:37 EST) Swab BOTH ANTERIOR NARES / Unknown Swab / Unknown 04/12/2021 7:37 EST 04/12/2021 7:41 EST Jun Sun DO MICROBIOLOGY - GE NERAL ORDERABLES Performing Organization Address City/[facility]/ZIP Co de Phone Number [facility] [address] [place] [address] * (ABNORMAL) COMPLETE BLOOD COUNT (04/12/2021 7:37 EST) WBC 8.01 4.00 - 12.40 K/cmm 04/12/2021 8:13 [facility] RBC 3.76(L) 3.86 - 5.04 M/cmm 04/12/2021 8:13 [facility] Hemoglobin 11.1(L) 11.6 - 15.2 gm/dL 04/12/2021 8:13 [facility] HCT 33.2(L) 34.9 - 44.4 % 04/12/2021 8:13 [facility] MCV 88 81 - 98 fl 04/12/2021 8:13 [facility] MCH 29.5 26.7 - 33.3 pg 04/12/2021 8:13 [facility] MCHC 33.4 32.1 - 35.9 gm/dL 04/12/2021 8:13 [facility] RDW-CV 14.4 <14.7 % 04/12/2021 8:13 [facility] RDW-SD 45.2 <50.4 fl 04/12/2021 8:13 [facility] PLT 325 141 - 377 K/cmm 04/12/2021 8:13 [facility] MPV 10.0 9.5 - 12.7 fl 04/12/2021 8:13 [facility] Blood VENOUS BLOOD / Unknown Venipuncture / Unknown 04/12/2021 7:37 EST 04/12/2021 7:56 EST Ibeth White MD HEMATOLOGY & PF4 ORD ERABLES [facility] [address] [place] [address] * COVID-19 TESTING (04/12/2021 7:37 EST) COVID-19 rt-PCR Result Negative Negative 04/12/2021 11:09 [facility] Comment: This test has not been FDA cleared or approved. This test has been authorized by FDA under an EUA for use by authorized laboratories. This test has been authorized only for detection of nucleic acid from 2018-, not for any other viruses or pathogens. This test is only authorized for the duration of the declaration that circumstances exist justifying the authorization of emergency use of in vitro diagnostic tests for detection and/or diagnosis of 2019-nCoV under section 564(b)(1) of Act, 21 U.S.C ?? 360bbb-3(b) (1), unless the authorization is terminated or revoked sooner. Negative results do not preclude 2019-nCoV infection and should not be used as the sole basis for treatment or other patient management decisions. Negative results must be combined with clinical observations, patient history, and epidemiological information. Performed on the obopayher Fusion instrument Performing Lab Totz [facility] 04/12/2021 11:09 [facility] Comment:Totz Swab BOTH ANTERIOR NARES / Unknown Swab / Unknown 04/12/2021 7:37 EST 04/12/2021 7:41 EST Jun Sun DO MICROBIOLOGY - GE NERAL ORDERABLES Performing Organization Address [facility] Co de Phone Number [facility] [address] [place] [address] * VAGINITIS EXAM (04/12/2021 7:36 EST) Trichomonas Antigen Negative Negative 04/12/2021 17:57 [facility] Scored Gram Smear Yeast not present Unable to rule out the presence of bacterial vaginosis 04/12/2021 17:57 [facility] Swab ENTIRE VAGINA / Unknown Swab / Unknown 04/12/2021 7:36 EST 04/12/2021 8:36 EST Jun Sun DO MICROBIOLOGY - GE NERAL ORDERABLES Performing Organization Address City/[facility] Co de Phone Number [facility] [address] [place] [address] * (ABNORMAL) COMPREHENSIVE METABOLIC PANEL (CMP) (04/12/2021 7:36 EST) Sodium 135(L) 136 - 145 mmol/L 04/12/2021 8:57 [facility] Potassium 4.2 3.5 - 5.0 mmol/L 04/12/2021 8:57 [facility] Chloride 104 96 - 110 mmol/L 04/12/2021 8:57 [facility] CO2 Total 21(L) 22 - 32 mmol/L 04/12/2021 8:57 [facility] Glucose 96 70 - 100 mg/dL 04/12/2021 8:57 [facility] BUN 6(L) 10 - 26 mg/dL 04/12/2021 8:57 [facility] Creatinine 0.54 0.52 - 1.04 mg/dL 04/12/2021 8:57 [facility] eGFR 130 >60 mL/min/1.7 3m2 04/12/2021 8:57 [facility] Total Protein 6.6 6.3 - 8.2 g/dL 04/12/2021 8:57 [facility] Albumin 3.7 3.4 - 4.9 g/dL 04/12/2021 8:57 [facility] Alkaline Phosphatase 83 38 - 126 U/L 04/12/2021 8:57 [facility] AST 21 15 - 46 U/L 04/12/2021 8:57 [facility] ALT 18 <35 U/L 04/12/2021 8:57 [facility] Bilirubin, Total <0.5 <1.4 mg/dL 04/12/19 8:57 [facility] Calcium 8.9 8.5 - 10.5 mg/dL 04/12/2021 8:57 [facility] Albumin/Globulin Ratio 1.3 1.0 - 2.5 04/12/2021 8:57 [facility] Anion Gap 10 5 - 14 04/12/2021 8:57 [facility] Blood VENOUS BLOOD / Unknown Venipuncture / Unknown 04/12/2021 7:36 EST 04/12/2021 8:23 EST Jun Sun DO CHEMISTRY & BLOOD GAS ORDERABLES [facility] [address] [place] [address] * CHLAMYDIA/N. GONORRHOEAE AMPLIFIED RNA (04/12/2021 7:30 EST) Neisseria gonorrhoeae Result Negative Negative 04/14/2021 14:49 EST [facility] Chlamydia trachomatis Result Negative Negative 04/14/2021 14:49 EST [facility] Swab ENTIRE WALL OF CERVIX / Unknown Swab / Unknown 04/12/2021 7:30 EST 04/12/2021 8:36 EST Jun Sun DO MICROBIOLOGY - GE NERAL ORDERABLES Performing Organization Address [facility] Co de Phone Number [facility] [address] [place] [address] * BACTERIAL CULTURE, URINE (04/12/2021 7:07 EST) Organism ID Less than 10,000 CFU/ml Usual urogenital santi. 04/13/2021 12:11 [facility] Urine URINE SPECIMEN COLLECTION, CLEAN CATCH / Unknown Urine Collect / Unknown 04/12/2021 7:07 EST 04/12/2021 7:47 EST Jun Sun DO MICROBIOLOGY - GE NERAL ORDERABLES Performing Organization Address [facility] Co de Phone Number [facility] [address] [place] [address] * (ABNORMAL) URINE CHEMICAL (DIP) & SEDIMENT (MICRO) WITH REFLEX TO CULTURE (04/12/2021 7:07 EST) Color UA Yellow Colorless, Yellow 04/12/2021 7:47 [facility] Clarity UA Hazy(A) Clear 04/12/2021 7:47 [facility] Glucose UA Negative Negative 04/12/2021 7:47 [facility] Bilirubin UA Negative Negative 04/12/2021 7:47 [facility] Ketones UA Trace(A) Negative 04/12/2021 7:47 [facility] Specific [place], Urine 1.033 1.001 - 1.035 04/12/2021 7:47 [facility] Blood UA Negative Negative 04/12/2021 7:47 [facility] Urobilinogen UA Normal Normal mg/dL 04/12/2021 7:47 [facility] Nitrite UA Negative Negative 04/12/2021 7:47 [facility] Leukocyte Esterase UA Negative Negative 04/12/2021 7:47 [facility] Protein UA Trace(A) Negative 04/12/2021 7:47 [facility] pH, UA 5.5 4.6 - 8.0 04/12/2021 7:47 [facility] Urine RBC Count, Auto 3 - 10(A) 0 - 2 Cells/HPF 04/12/2021 7:47 [facility] Urine WBC Count, Auto 4 - 10(A) 0 - 3 Cells/HPF 04/12/2021 7:47 [facility] Urine Squamous Count, Auto Many(A) None Seen Cells/HPF 04/12/2021 7:47 [facility] Urine Hyaline Cast Count, Auto <=10 <=10 Casts/LPF 04/12/2021 7:47 [facility] Urine Bacteria Count, Auto None Seen None Seen Bacteria/HP F 04/12/2021 7:47 [facility] Urine Crystals Moderate Calcium Oxalate Crystals(A) None Seen 04/12/2021 7:47 [facility] Urine URINE SPECIMEN COLLECTION, CLEAN CATCH / Unknown Urine Collect / Unknown 04/12/2021 7:07 EST 04/12/2021 7:21 [facility] - 04/12/2021 7:47 EST A Urine Culture test has been reflexively ordered based on result criteria from the Urine Sediment Analysis. Urine Sediment Analysis results are unreliable on urines that are unrefrigerated for >2 hrs or refrigerated >8 hrs. Jun Sun DO URINALYSIS ORDERA BLES [facility] [address] [place] [address] * US ABDOMEN LIMITED (04/12/2021 6:08 EST) Anatomical Region Laterality Modality Abdomen, Body Ultrasound 04/12/2021 12:4 7 EST Impressions 04/12/2021 12:47 EST 1. ??The appendix is not identified in the right lower quadrant. 2. ??No sonographic evidence of right ovarian torsion. I have personally reviewed the images and the above interpretation and agree with the findings. Narrative 04/12/2021 12:47 EST US ABDOMEN LIMITED ??04/12/2021 5:35 AM SIGNS AND SYMPTOMS/COMMENTS: r/o appy COMPARISON: None available TECHNIQUE: Grayscale and Doppler ultrasound evaluation of the right lower quadrant of the abdomen was performed. FINDINGS: The exam was difficult due to patient's body habitus. APPENDIX: Not identified OTHER: The nonenlarged right ovary is seen in the right lower quadrant with normal arterial and venous waveforms. Procedure Note Chu Skinner MD - 04/12/2021 US ABDOMEN LIMITED 04/12/2021 5:35 AM SIGNS AND SYMPTOMS/COMMENTS: r/o appy COMPARISON: None available TECHNIQUE: Grayscale and Doppler ultrasound evaluation of the right lowerquadrant of the abdomen was performed. FINDINGS: The exam was difficult due to patient's body habitus. APPENDIX: Not identified OTHER: The nonenlarged right ovary is seen in the right lower quadrantwith normal arterial and venous waveforms. IMPRESSION 1. The appendix is not identified in the right lower quadrant. 2. No sonographic evidence of right ovarian torsion. I have personally reviewed the images and the above interpretation andagree with the findings. Ely Maldonado MD IMG US ORDERABLES documented in this encounter Visit Diagnoses Diagnosis Right lower quadrant abdominal pain- Primary Abdominal pain, right lower quadrant Right lower quadrant abdominal pain Abdominal pain, right lower quadrant documented in this encounter Administered Medications Inactive Administered Medications - up to 3 most recent administrations Medication Order MAR Action Action Date Dose Rate Site hydrOXYzine (ATARAX) tablet 100 mg 100 mg, oral, Once (Time Specified), 1 dose, On 04/12/21 at 0815, Routine Given 04/12/2021 9:09 EST 100 mg levothyroxine (SYNTHROID) tablet 275 mcg 275 mcg, oral, NOW X1, 1 dose, On 04/12/21 at 0600, STAT Given 04/12/2021 9:09 EST 275 mcg documented in this encounter Discontinued Medications Medication Sig Discontinue Reason Start Date End Da te naproxen (NAPROSYN) 500 mg tabletIndications:Chron ic bilateral low back pain without sciatica Take 1 Tab by mouth 2 times daily with breakfast and dinner. 11/09/2019 04/12/2021 documented as of this encounter Active and Recently Administered Medications Times are shown in EST. Scheduled Medication Order 04/10/2021 04/11/2021 04/12/2021 hydrOXYzine (ATARAX) tablet 100 mg (COMPLETED) 100 mg, oral, Once (Time Specified), 1 dose, On 04/12/21 at 0815, Routine 0909 (Given - Provid er: Su Stuart RN) levothyroxine (SYNTHROID) tablet 275 mcg (COMPLETED) 275 mcg, oral, NOW X1, 1 dose, On 04/12/21 at 0600, STAT 0909 (Given - Provid er: Su Stuart RN) documented in this encounter Orders Nursing Count Last Ordered Date First Orde red Date BATHING INSTRUCTIONS 1 04/12/2021 Discharge Count Last Ordered Date First Orde red Date DISCHARGE PATIENT 1 04/12/2021 Legal Count Last Ordered Date First Orde red Date MISCELLANEOUS DISCHARGE INSTRUCTIONS 04/01 documented in this encounter Care Teams Jewel Sorter Relationship Specialty Start Date End Date Ayla Solomon DO [address] [place] [address] PCP - General General Surgery 04/12/21 documented as of this encounter
--- OUTSIDE RECORDS SUMMARY | 2023-12-04 20:15 | XMS_ITS | Encounter Summary ---
Author Organization [facility] Address [address] [place] [address] Care Team Providers Care Garden Center Manager Name Role Phone Ayla Solomon DO Primary Care Provider [phone] Reason for Referral * ZINC PLATER (Routine/Next Available) - Order Cancelled Specialty Diagnoses / Procedures Referred By Eugene asencio Referred To Contact Diagnoses Encounter for supervision of other normal in second trimester Procedures US OB BIOPHYSICAL PROFILE WITH NON STRESS Braulio Scanlon MD [address] [address] [place] Referral ID Status Reason Start Date Expiration Date V isits Requested Visits Authorized [id number] Order Cancelled 05/23/2021 12 12 Reason for Visit * ZINC PLATER (Routine/Next Available) - Order Cancelled Specialty Diagnoses / Procedures Referred By Eugene asencio Referred To Contact Diagnoses Encounter for supervision of other normal in second trimester Procedures US OB BIOPHYSICAL PROFILE WITH NON STRESS Braulio Scanlon MD [address] [address] [place] Referral ID Status Reason Start Date Expiration Date V isits Requested Visits Authorized [id number] Order Cancelled 05/23/2021 12 12 Encounter Details Date Type Department Care Team (Latest Contact Info) Description 07/01/2021 8:58 EDT - 07/01/2021 23:59 EDT Hospital Encounter [facility] - [address] [address] Encounter for supervision of other normal in [...] Sign Reading Time Taken Comments Blood Pressure 124/84 07/01/2021 1059 EDT Pulse - - Temperature - - Respiratory Rate - - Oxygen Saturation - - Inhaled Oxygen Concentration - - Weight 130.7 kg (288 lb 3.2 oz) 07/01/2021 1059 EDT Height - - Body Mass Index 51.71 06/09/2021 1314 EDT documented in this encounter [...] needed for Wheezing. 1 Inhaler 11 09/13/2019 doxylamine (UNISOM, DOXYLAMINE,) 25 mg tablet tablet Take 1 Tablet by mouth at bedtime as needed for Nausea. 28 Tablet 3 07/01/2021 no122/iron/folic acid ( MULTI ORAL) Take by [...] OB BIOPHYSICAL PROFILE WITH NON STRESS Routine 07/01/2021 10:21 EDT Encounter for supervision of other normal in second trimester documented in this encounter Results * US OB BIOPHYSICAL PROFILE WITH NON STRESS (07/01/2021 10:21 EDT) Anatomical Region Laterality Modality Pelvis Ultrasound 07/01/2021 10:0 6 EDT Narrative 07/01/2021 12:14 EDT Indication BMI 51.9. History ======= General [...] ======= LMP on: ?10/24/2020 GA by LMP ??35 w + 5 d GEOVANI by LMP : ? 07/31/2021 Stated Dating on: ?01/07/2021 GA at stated dating date 9 w + 0 d GA by stated dating ??34 w + 0 d GEOVANI by stated dating: ?08/12/2021 Assigned: ??Dating performed on 05/23/2021, based on the external assessment (on 01/07/2021) Assigned GA ?34 w + 0 d Assigned GEOVANI: ??08/12/2021 General Evaluation Cardiac activity: Present. FHR 159 bpm. movements: visualized. Presentation: cephalic, spine maternal left. Placenta: posterior. Amniotic Fluid Assessment Amount of AF: normal MVP 4.9 cm. CHRISTI 11.4 cm. Q1 3.7 cm, Q2 0.0 cm, Q3 2.8 cm, Q4 4.9 cm Biophysical Profile 2: breathing movements 2: Gross body movements 2: tone 2: Amniotic fluid volume 2: NST 12/08: Biophysical profile score Interpretation: normal DVD number 2973, Duration: 9 minutes Method ======== Voluson E10, Transabdominal ultrasound examination. View: Limited by maternal habitus and by advanced gestational age. Impression [id number] Biophysical Profile (including NST) This is a patel . Please see BPP score above. Follow-up Follow-up with weekly BPPs. DATE OF SERVICE: 07/01/2021 Procedure Note Mary Jo Zuñiga MD - 07/01/2021 Indication BMI 51.9. History ======= General History [...] ======= LMP on: 10/24/2020 GA by LMP 35 w + 5 d GEOVANI by LMP : 07/31/2021 Stated Dating on: 01/07/2021 GA at stated dating date 9 w + 0 d GA by stated dating 34 w + 0 d GEOVANI by stated datin08/12/2021 Assigned: Dating performed on 05/23/2021, based on the externalassessment (on 01/07/2021) Assigned GA 34 w + 0 d Assigned GEOVANI: 08/12/2021 General Evaluation Cardiac activity: Present. FHR 159 bpm. movements: visualized. Presentation: cephalic, spine maternal left. Placenta: posterior. Amniotic Fluid Assessment Amount of AF: normal MVP 4.9 cm. CHRISTI 11.4 cm. Q1 3.7 cm, Q2 0.0 cm, Q3 2.8 cm, Q4 4.9 cm Biophysical Profile 2: breathing movements 2: Gross body movements 2: tone 2: Amniotic fluid volume 2: NST 12/08: Biophysical profile score Interpretation: normal DVD number 2973, Duration: 9 minutes Method ======== Voluson E10, Transabdominal ultrasound examination. View: Limited bymaternal habitus and by advanced gestational age. Impression [id number] Biophysical Profile (including NST) This is a patel . Please see BPP score above. Follow-up Follow-up with weekly BPPs. DATE OF SERVICE: 07/01/2021 Braulio Scanlon MD IMG US OB ORDERABL ES documented in this encounter Visit Diagnoses Diagnosis Encounter for supervision of other normal in second trimester documented in this encounter Care Teams Garden Center Manager Relationship Specialty Start Date End Date Ayla Solomon DO [facility] [address] [place] [address] PCP - General General Surgery 04/12/21 documented as of this encounter
--- OUTSIDE RECORDS SUMMARY | 2023-12-04 20:15 | XMS_ITS | Encounter Summary ---
Author Organization [facility] Address [address] [place] [address] Care Team Providers Care Network Desktop Support Specialist Name Role Phone Juanito Ayla Keagan LACY Primary Care Provider [phone] Reason for Visit * Reason Comments Initial Visit +FM, -CTX, -LOF, -VB * Consult (Routine) - Authorization Not Required Specialty Diagnoses / Procedures Referred By Contac t Referred To Contact Obstetrics Diagnoses Encounter for supervision of normal , unspecified, unspecified trimester Hypothyroidism Thyrotoxicosis BMI 50.0-59.9, adult ([facility]) Sarah Doherty, [address] [place] [address] [facility] Ep4 Ob/Mfm [address] [place] [address] Referral ID Status Reason Start Date Expiration Date Visits Requested Visits Authorized [id number] Authorization Not Required 1 1 Encounter Details Date Type Department Care Team (Late st Contact Info) Description 05/23/2021 9:30 EDT Initial [facility] OBGYN Services - [address] [address] Braulio Hussein MD 111 [facility], [facility], [address] [place] [address] GA: 28w3d Social History Tobacco Use Types Packs/Day Years [...] Sign Reading Time Taken Comments Blood Pressure 132/77 05/23/2021 1002 EDT Pulse - - Temperature - - Respiratory Rate - - Oxygen Saturation - - Inhaled Oxygen Concentration - - Weight 128.8 kg (284 lb) 05/23/2021 1002 EDT Height 159 cm (5' 2.6) 05/23/2021 1002 EDT Body Mass Index 50.96 05/23/2021 1002 EDT documented in this encounter Functional Status [...] this encounter Progress Notes * Mary Jo Cardenas RN - 05/23/2021 0930 EDT Glucometer teaching done with patient d/t newly diagnosed GDM. Pt instructed in glucometer use and glucose logging, including frequency and timing of blood sugars, goal parameters for fasting and postprandial glucose levels, and use of glucometer to obtain blood sugar results. Glucometer use demonstrated and pt performed independently. Pt instructed to call OB office if >50% of blood sugar results are above goal parameters or for any blood sugars >200. Questions encouraged and answered. Pt states no questions or concerns at this time. Pt states she already had prescription for glucometer and supplies sent to her local pharmacy. Instructed to call if any trouble picking these up. * Braulio Hussein MD - 05/23/2021 0918 EDT Initial Subjective: Tiny Cline is a 25 y.o. female at 28w3d by early ultrasound who presents for initiation of care. planned, desired. Some inconsistency with her dating, by LMP EDC is 07/31/21, but 9 and 10w US show 6/14, with one mentioning 6/15 without clear reasons why. Discussed will keep 6/14 as due date for now. Hx HSV, had some outbreaks in early , now taking valtrex once a day. Hx hypothyroid s/p ablative therapy for Graves, TSH has been stable, follows with endocrine Mentions that she was just diagnosed w/ GDM by a failed 3hr all 4 values abnormal. Was given sometesting supplies but were not in stock at her drug store. Was not given a log book. Past Medical History Past Surgical History Past Medical History: Diagnosis Date ??? ADD (attention deficit disorder) ??? Asthma, exercise induced ??? Autoimmune disorder (HCC-CMS) (HCC) Grave's disease ??? Depression was taking meds (can't remember what), stopped in 07/2016, no counselor ??? Herpes simplex virus (HSV) infection ??? Mood disorder (HCC-CMS) (HCC) ??? Thyroid disease Past Surgical History: Procedure Laterality Date ??? CHOLECYSTECTOMY ??? LIPOMA RESECTION 2017 on abdomen Obstetric History Gynecologic History OB History Para Term AB Living 2 1 1 0 0 1 SAB TAB Ectopic Multiple Live Births 0 0 0 0 1 # Outcome Date GA Lbr Eduardo/2nd Weight Sex Delivery Anes PTL Lv 2 Current 1 Term 08/08/17 40w3d 11:38 / 01:05 3834 g (8 lb 7.2 oz) F EPI WEI See problem list Social History Family History Partner involved, supportive Tobacco: no EtOH: no Drugs: no Family History Problem Relation Age of Onset ??? Hypertension Mother ??? Retinitis Pigmentosa Mother ??? Thyroid Disease Father underactive ??? Diabetes Father ??? Hypertension Brother ??? Migraines Brother ??? Autism Brother ??? Hypertension Brother ??? Diabetes Maternal Grandmother ??? Hypertension Maternal Grandmother ??? Diabetes Paternal Grandfather ??? High Cholesterol Paternal Grandfather ??? Hypertension Paternal Grandfather ??? Heart Attack Paternal Grandfather ??? Thyroid Disease Other M 2nd cousin- thyroodectomy for ?, MGGM thyroid condition ??? *Other(comment) Paternal Grandmother post surgical complications ??? Heart Disease Maternal Grandfather ??? Infertility Neg Hx ??? Heart Attack Under 50 Neg Hx Denies any FHx of genetic conditions, mental retardation or cystic fibrosis for either her family or her partner's family. Current Outpatient Medications Medication ??? albuterol 90 mcg/actuation inhaler ??? atomoxetine (STRATTERA) 80 mg capsule ??? levothyroxine (SYNTHROID) 200 mcg tablet ??? levothyroxine (SYNTHROID) 50 mcg tablet ??? no122/iron/folic acid ( MULTI ORAL) ??? valACYclovir (VALTREX) 500 mg tablet No current facility-administered medications for this visit. Allergies Allergen Reactions ??? Lorabid [Loracarbef] Nausea And Vomiting ??? Yeast, Dried Nausea And Vomiting If consumes large amounts will develop N/V Review of Systems Review of Systems - History obtained from the patient General ROS: negative for - chills or fever Respiratory ROS: no cough, shortness of breath, or wheezing Cardiovascular ROS: no chest pain or dyspnea on exertion Gastrointestinal ROS: no perceived abdominal pain, change in bowel habits, or black or bloody stools Genito-Urinary ROS: no dysuria, trouble voiding, or hematuria. Objective: BP 132/77 Ht 159 cm (62.6) Wt (!) 128.8 kg (284 lb) LMP 10/24/2020 BMI 50.96 kg/m?? Body mass index is 50.96 kg/m??. GEN: No acute distress Assessment: IUP at 28w3d based on early ultrasound Plan: Problem list reviewed and updated. Supervision of other normal PNC reviewed and UTD, patient reports failing 3hr GTT earlier this week --> MFM consult, nutrition consult and start FS testing, call if elevations noted in that first week of testing TDAP today Anatomy scan WNL, monthly growth scans for BMI, testing HSV, using daily PPX, discussed increasing to 2x daily at 36w All questions answered RTC 4 weeks Status post radioactive iodine thyroid ablation Monthly TSH through endocrine, scanned in our system Plans to continue to follow w/ endocrine >50% of 60 min visit spent on counseling and coordination of care. Braulio Hussein MD documented in this encounter Miscellaneous Notes * Assessment & Plan Note - Braulio Hussein MD - 05/23/2021 1146 EDT Associated Problem(s): Status post radioactive iodine thyroid ablation Monthly TSH through endocrine, scanned in our system Plans to continue to follow w/ endocrine * Assessment & Plan Note - Braulio Hussein MD - 05/23/2021 1137 EDT Associated Problem(s): Supervision of other normal PNC reviewed and UTD, patient reports failing 3hr GTT earlier this week --> MFM consult, nutrition consult and start FS testing, call if elevations noted in that first week of testing TDAP today Anatomy scan WNL, monthly growth scans for BMI, testing HSV, using daily PPX, discussed increasing to 2x daily at 36w All questions answered RTC 4 weeks documented in this encounter Plan of Treatment Not on file documented as of this encounter Goals Goal Patient Goal Type Associated Problems Recent Progress Patient-Stated? Author Weight Loss General Obesity, Class III, BMI 40-49.9 (morbid obesity) Marva Vaughn Note: Increased activity getting out doors with daughter documented as of this encounter Results * ABO/RH (06/23/2021 11:47 EDT) ABO O 06/23/2021 12:25 EDT [facility] Rh Factor Positive 06/23/2021 12:25 EDT [facility] Blood VENOUS BLOOD / Unknown Venipuncture / Unknown 06/23/2021 11:47 EDT 06/23/2021 11:58 EDT Braulio Hussein MD BLOOD BANK TESTS Performing Organization Address City/State/[facility] Co de Phone Number [facility] [address] [place] [address] documented in this encounter Visit Diagnoses Diagnosis Encounter for supervision of other normal in second trimester- Primary Status post radioactive iodine thyroid ablation Other postprocedural status documented in this encounter Historical Medications * This list may reflect changes made after this encounter. Medication Sig Dispensed Refills Start Date End Date no122/iron/folic acid ( MULTI ORAL) Take by mouth. added in this encounter Orders Immunization/Injection Count Last Ordered Date First Ordered Date TDAP VACCINE =>7YO IM 1 05/23/2021 documented in this encounter Care Teams Network Desktop Support Specialist Relationship Specialty Start Date End Date Ayla Solomon DO [facility] [address] [place] [address] PCP - General General Surgery 04/12/21 documented as of this encounter
--- OUTSIDE RECORDS SUMMARY | 2023-12-04 20:15 | XMS_ITS | Encounter Summary ---
Author Organization [facility] Address [address] [place] [address] Care Team Providers Care Purchasing Administrative Assistant Name Role Phone Juanito Ayla Keagan LACY Primary Care Provider [phone] Reason for Referral * CIRCUS LABORER (Routine/Next Available) - Order Cancelled Specialty Diagnoses / Procedures Referred By Eugene asencio Referred To Contact Diagnoses Encounter for supervision of other normal in second trimester Procedures US OB BIOPHYSICAL PROFILE WITH NON STRESS Braulio Scanlon MD [address] [address] [facility] Referral ID Status Reason Start Date Expiration Date V isits Requested Visits Authorized [id number] Order Cancelled 05/23/2021 12 12 * CIRCUS LABORER (Routine/Next Available) - Order Cancelled Specialty Diagnoses / Procedures Referred By Eugene asencio Referred To Contact Diagnoses Encounter for supervision of other normal in second trimester Procedures US OB FOLLOWUP Braulio Scanlon MD [address] [address] [facility] Referral ID Status Reason Start Date Expiration Date V isits Requested Visits Authorized [id number] Order Cancelled 05/23/2021 4 4 Reason for Visit * CIRCUS LABORER (Routine/Next Available) - Order Cancelled Specialty Diagnoses / Procedures Referred By Eugene asencio Referred To Contact Diagnoses Encounter for supervision of other normal in second trimester Procedures US OB BIOPHYSICAL PROFILE WITH NON STRESS Braulio Scanlon MD 111 [facility], [facility], [address] [place] [address] [facility] Referral ID Status Reason Start Date Expiration Date V isits Requested Visits Authorized [id number] Order Cancelled 05/23/2021 12 12 Encounter Details Date Type Department Care Team (Latest Contact Info) Description 07/15/2021 11:21 EDT - 07/15/2021 23:59 EDT Hospital Encounter [facility] Obstetrics Services - [address] [address] Encounter for supervision of other normal in [...] Name Type Priority Associated Diagnoses Date /Time US OB FOLLOWUP Imaging Routine Encounter for supervision of other normal in second trimester 07/15/2021 12:03 EDT Scheduled Orders Name Type Priority Associated Diagnoses Orde r Schedule US OB FOLLOWUP Imaging Routine Encounter for supervision of other normal in second trimester 1 Occurrences starting 07/15/2021 until 07/15/2021 documented as of this encounter Goals Goal Patient Goal Type Associated Problems Recent Progress Patient-Stated? Author Weight Loss General Obesity, Class III, BMI 40-49.9 (morbid obesity) Marva Vaughn Note: Increased activity getting out doors with daughter documented as of this encounter Procedures Procedure Name Priority Date/Time Associated Diagnosis Comments US OB BIOPHYSICAL PROFILE WITH NON STRESS Routine 07/15/2021 12:03 EDT Encounter for supervision of other normal in second trimester documented in this encounter Results * US OB BIOPHYSICAL PROFILE WITH NON STRESS (07/15/2021 12:03 EDT) Anatomical Region Laterality Modality Pelvis Ultrasound 07/15/2021 11:3 1 EDT Narrative 07/15/2021 12:41 EDT Indication BMI 51.9. History ======= General [...] ======= LMP on: ?10/24/2020 GA by LMP ??37 w + 5 d GEOVANI by LMP : ? 07/31/2021 Stated Dating on: ?01/07/2021 GA at stated dating date 9 w + 0 d GA by stated dating ??36 w + 0 d GEOVANI by stated dating: ?08/12/2021 Ultrasound examination on: 07/15/2021 GA by U/S based upon: ??AC, BPD, Femur, HC GA by U/S ??35 w + 4 d GEOVANI by U/S: ?08/15/2021 Assigned: ??Dating performed on 05/23/2021, based on the external assessment (on 01/07/2021) Assigned GA ?36 w + 0 d Assigned GEOVANI: ??08/12/2021 General Evaluation Cardiac activity: Present. FHR 143 bpm. movements: visualized. Presentation: cephalic. Placenta: posterior, fundal. Amniotic fluid: Amount of AF: normal. MVP 4.8 cm. CHRISTI 15.1 cm. Q1 2.5 cm, Q2 4.2 cm, Q3 4.8 cm, Q4 3.6 cm. Anatomy Cranium: ?? normal Lateral ventricles: ?normal Midline falx: ??normal Cranium: ?? normal shape and size 4-chamber view: ?normal Stomach: ?? normal Kidneys: ?? normal Bladder: ?? normal Wants to know gender: ??no Biometry Biometry BPD ?88.8 mm 56% 35w 6d Hadlock OFD ?111.8 mm ?74% 37w 6d Jose HC 314.6 mm ?24% 34w 3d [place] AC 316.9 mm ?49% 35w 4d Hadlock Femur ??71.8 mm 89% 36w 2d Jose Humerus ?64.5 mm 92% 37w 3d Jose EFW ?2,801 g 52% Hart Calculated by: Hadlock ([id number]) EFW (lb) ?? 6 lb EFW (oz) ?? 3 oz Cephalic index 0.79 ?30% Nicolaides HC / AC ?0.99 FL / BPD ?? 0.81 FL / AC ?0.23 MVP ?4.8 cm CHRISTI ?15.1 cm FHR ?143 bpm Head / Face / Neck Materials Analyst 5.5 mm Biophysical Profile 2: breathing movements 2: Gross body movements 2: tone 2: Amniotic fluid volume 2: NST 12/08: Biophysical profile score Interpretation: normal DVD number 2987, Duration: 28 minutes Method ======== Transabdominal ultrasound examination, Voluson E10. View: Limited by maternal habitus. Impression [id number] Follow-up obstetrical ultrasound This is a patel gestation. biometry is consistent with prior dating. Except where noted above, the anatomy was not reviewed in detail as this is a follow-up study and the anatomy was previously assessed. Normal fluid and movement are noted. [id number] Biophysical Profile (including NST) See BPP score above. DATE OF SERVICE: 07/15/2021 Procedure Note Mary Jo Zuñiga MD - 07/15/2021 Indication BMI 51.9. History ======= General History [...] ======= LMP on: 10/24/2020 GA by LMP 37 w + 5 d GEOVANI by LMP : 07/31/2021 Stated Dating on: 01/07/2021 GA at stated dating date 9 w + 0 d GA by stated dating 36 w + 0 d GEOVANI by stated datin08/12/2021 Ultrasound examination on: 07/15/2021 GA by U/S based upon: AC, BPD, Femur, HC GA by U/S 35 w + 4 d GEOVANI by U/S: 08/15/2021 Assigned: Dating performed on 05/23/2021, based on the externalassessment (on 01/07/2021) Assigned GA 36 w + 0 d Assigned GEOVANI: 08/12/2021 General Evaluation Cardiac activity: Present. FHR 143 bpm. movements: visualized. Presentation: cephalic. Placenta: posterior, fundal. Amniotic fluid: Amount of AF: normal. MVP 4.8 cm. CHRISTI 15.1 cm. Q1 2.5 cm,Q2 4.2 cm, Q3 4.8 cm, Q4 3.6 cm. Anatomy Cranium: normal Lateral ventricles: normal Midline falx: normal Cranium: normal shape and size 4-chamber view: normal Stomach: normal Kidneys: normal Bladder: normal Wants to know gender: no Biometry Biometry BPD 88.8 mm 56% 35w 6d Hadlock OFD 111.8 mm 74% 37w 6d Jose HC 314.6 mm 24% 34w 3d [place] AC 316.9 mm 49% 35w 4d Hadlock Femur 71.8 mm 89% 36w 2d Jose Humerus 64.5 mm 92% 37w 3d Jose EFW 2,801 g 52% Hart Calculated by: Hadlock ([id number]) EFW (lb) 6 lb EFW (oz) 3 oz Cephalic index 0.79 30% Nicolaides HC / AC 0.99 FL / BPD 0.81 FL / AC 0.23 MVP 4.8 cm CHRISTI 15.1 cm FHR 143 bpm Head / Face / Neck Materials Analyst 5.5 mm Biophysical Profile 2: breathing movements 2: Gross body movements 2: tone 2: Amniotic fluid volume 2: NST 12/08: Biophysical profile score Interpretation: normal DVD number 2987, Duration: 28 minutes Method ======== Transabdominal ultrasound examination, Voluson E10. View: Limited bymaternal habitus. Impression [id number] Follow-up obstetrical ultrasound This is a patel gestation. biometry is consistent with prior dating. Except where noted above, the anatomy was not reviewed in detail asthis is a follow-up study and the anatomy was previously assessed. Normal fluid and movement are noted. 13268 Biophysical Profile (including NST) See BPP score above. DATE OF SERVICE: 07/15/2021 Braulio Scanlon MD IMG US OB ORDERABL ES documented in this encounter Visit Diagnoses Diagnosis Encounter for supervision of other normal in second trimester documented in this encounter Additional Health Concerns Infection Onset Date Last Indicated Resolved Time COVID-19 07/14/2021 07/14/2021 07/25/2021 22:1 6 EDT documented as of this encounter Care Teams Purchasing Administrative Assistant Relationship Specialty Start Date End Date Ayla Solomon DO [facility] [address] [place] [address] PCP - General General Surgery 04/12/21 documented as of this encounter
--- OUTSIDE RECORDS SUMMARY | 2023-12-04 20:15 | XMS_ITS | Encounter Summary ---
Author Organization [facility] Address [address] [place] [address] Care Team Providers Care Awning Hanger Helper Name Role Phone Juanito Aylaflorence Boogie DO Primary Care Provider [phone] Reason for Visit * Reason Onset Date Comments Blood Glucose Review 06/30/2021 Encounter Details Date Type Department Care Team (Late st Contact Info) Description 06/30/2021 Telephone [facility] Obstetrics & Midwifery - [facility] [address] [place], [place] [id number] Landon Joseph RN Blood Glucose Review Social [...] Telephone Encounter - Landon Joseph RN - 06/30/2021 1421 EDT Blood sugars received via My Chart from Tiny (33w6d) who is currently taking 10 units of NPH QHS. Blood glucose log from 06/23- 06/29: 2 / Fasting >/= 95 3 / 7 2hr PP Breakfast >/= 120 3 / 7 2hr PP Lunch >/= 120 3 / 7 2hr PP Dinner >/= 120 Reviewed by MD Hunt. Elevated post meal blood sugars all in 120's-130's. recommends adjusting diet to help lower post-meal blood sugars a bit more. If patient can't improve diet, or feels like she is already pretty restrictive, recommends changing to 10units of Lantus at bedtime for longer BS coverage. Replied to patient's My Chart msg with MD advice. Hard copy of blood sugar log sent to [facility]. LANDON JOSEPH RN 06/30/2021 14:21 documented in this encounter Plan of Treatment Not on file documented as of this encounter Goals Goal Patient Goal Type Associated Problems Recent Progress Patient-Stated? Author Weight Loss General Obesity, Class III, BMI 40-49.9 (morbid obesity) No Marva Hitchcock Note: Increased activity getting out doors with daughter documented as of this encounter Visit Diagnoses Not on filedocumented in this encounter Care Teams Awning Hanger Helper Relationship Specialty Start Date End Date Ayla Solomon DO [facility] [address] [place] [id number] PCP - General General Surgery 04/12/21 documented as of this encounter
--- OUTSIDE RECORDS SUMMARY | 2023-12-04 20:15 | XMS_ITS | Encounter Summary ---
Author Organization [facility] Address [address] [place] [address] Care Team Providers Care Sole Painter Name Role Phone MaribethyAla rizvi Primary Care Provider [phone] Reason for Visit * Reason Onset Date Comments Abdominal Pain 06/14/2021 Encounter Details Date Type Department Care Team (Late st Contact Info) Description 06/14/2021 Telephone [facility] OBGYN [address] [place], [place] [phone] Pawan Mcintosh MD 111 [facility], [facility] [address] [place] [address] Abdominal Pain Social History Tobacco Use Types [...] encounter Miscellaneous Notes * Telephone Encounter - Pawan Mcintosh MD - 06/14/20212157 EDT Received call from patient (25 y.o. at 31w4d gestation) reporting constant lower abdominal pain of around 5/10 severity. Started gradually yesterday and became more constant and bothersome today. Localizes to lower abdomen bilaterally. No flank pain or colicky type pain. Notes has been lifting 4-year-old daughter more often the past couple of days. No other obvious precipitating factors. No radiation. No vaginal bleeding or loss of fluid. Has noticed increased urinary frequency but denies dysuria or shelli hematuria. [place] nauseous earlier and vomited once today. Last BM today (normal).Endorses occasional Adam-Zuniga that are clearly separate. Lives 1 hour 40 min away. Offered evaluation on L&D tonight but agreed reasonable to take some Tylenol and observe at home, which patient prefers. Encouraged to call back if persistent/worsening pain or other acute concerns. Pawan Mcintosh MD Obstetrics/Gynecology documented in this encounter Plan of Treatment Not on file documented as of this encounter Goals Goal Patient Goal Type Associated Problems Recent Progress Patient-Stated? Author Weight Loss General Obesity, Class III, BMI 40-49.9 (morbid obesity) No Marva Hitchcock Note: Increased activity getting out doors with daughter documented as of this encounter Visit Diagnoses Not on filedocumented in this encounter Care Teams Sole Painter Relationship Specialty Start Date End Date Ayla Solomon DO [facility]0 [facility] [address] [place] [address] PCP - General General Surgery 04/12/21 documented as of this encounter
--- OUTSIDE RECORDS SUMMARY | 2023-12-04 20:15 | XMS_ITS | Encounter Summary ---
Author Organization [facility] Address [address] [place] [address] Care Team Providers Care Technician Automated Equipment Name Role Phone Juanito Ayla Keagan LACY Primary Care Provider [phone] Reason for Visit * Reason Comments Routine Visit Encounter Details Date Type Department Care Team (Late st Contact Info) Description 07/01/2021 13:15 EDT Telemedicine [facility] OBGYN Services - [facility] [address] [place], [place] [phone] Lucrecia Briggs MD [address] [phone] Supervision of high risk in third trimester (Primary Dx) Social History [...] Dispensed Refills Start Date End Da te doxylamine (UNISOM, DOXYLAMINE,) 25 mg tablet tablet Take 1 Tablet by mouth at bedtime as needed for Nausea. 28 Tablet 3 07/01/2021 documented in this encounter Progress Notes * Lucrecia Briggs MD - 07/01/2021 1315 EDT The concept of ???Telemedicine?? has been [...] in patient???s medical or mental health care. S: Patient is a 25 y.o. 34w0d. No LOF, no VB. No regular ctxs. +FM. O: Telehealth A/P:25 y.o. 34w0d : Supervision of other normal Reviewed BGVs, mostly appropriate. Elevated values always with poor dietary choices. Desires 39 wk IOL for A2GDM, but worried about being home for daughter's bday on 08/08. Discussed possible IOL on 08/05 or 08/09. Undecided on PP contraception. Already started HSV prophylaxis, no current outbreaks. Lucrecia Briggs MD 07/01/2021 13:35 documented in this encounter Miscellaneous Notes * Assessment & Plan Note - Lucrecia Briggs MD - 07/01/2021 1334 EDTAssociated Problem(s): Supervision of other normal Reviewed BGVs, mostly appropriate. Elevated values always with poor dietary choices. Desires 39 wk IOL for A2GDM, but worried about being home for daughter's bday on 08/08. Discussed possible IOL on 08/05 or 08/09. Undecided on PP contraception. Already started HSV prophylaxis, no current outbreaks. documented in this encounter Plan of Treatment Not on file documented as of this encounter Goals Goal Patient Goal Type Associated Problems Recent Progress Patient-Stated? Author Weight Loss General Obesity, Class III, BMI 40-49.9 (morbid obesity) No Marva Hitchcock Note: Increased activity getting out doors with daughter documented as of this encounter Visit Diagnoses Diagnosis Supervision of high risk in third trimester- Primary Unspecified high-risk documented in this encounter Care Teams Technician Automated Equipment Relationship Specialty Start Date End Date Ayla Solomon DO [facility]0 [facility] [address] [place] [address] PCP - General General Surgery 04/12/21 documented as of this encounter
--- OUTSIDE RECORDS SUMMARY | 2023-12-04 20:15 | XMS_ITS | Encounter Summary ---
Author Organization [facility] Address [address] [place] [address] Care Team Providers Care Shake Table Operator Name Role Phone Juanito Ayla Keagan LACY Primary Care Provider [phone] Reason for Visit * Reason Comments Routine Visit Encounter Details Date Type Department Care Team (Late st Contact Info) Description 06/23/2021 10:45 EDT Routine [facility] OBGYN Services - [address] [phone] Enriqueta Briscoe MD 111 [facility], Level [address] [place] [phone] GA: 32w6d Social History Tobacco Use Types Packs/Day Years [...] Sign Reading Time Taken Comments Blood Pressure 121/79 06/23/2021 1042 EDT Pulse - - Temperature - - Respiratory Rate - - Oxygen Saturation - - Inhaled Oxygen Concentration - - Weight 129.7 kg (286 lb) 06/23/2021 1042 EDT Height - - Body Mass Index 51.32 06/09/2021 1314 EDT documented in this encounter [...] as of this encounter Progress Notes * Enriqueta Briscoe MD - 06/23/2021 1045 EDT S: Patient is a 25 y.o. 32w6d. No LOF, no VB. No regular ctxs. +FM. No complaints at this time. O: Vitals: BP: 121/79 Weight : (!) 129.7 kg (286 lb) Heart Rate: US Movement: Present A/P:25 y.o. 32w6d : Supervision of other normal Plans for weekly BPPs Doing well controlling her blood sugar Requesting TSH blood draw today documented in this encounter Miscellaneous Notes * Assessment & Plan Note - Enriqueta Briscoe MD - 06/23/2021 1103 EDT Associated Problem(s): Supervision of other normal Plans for weekly BPPs Doing well controlling her blood sugar Requesting TSH blood draw today documented in this encounter Plan of [...] normal - Primary documented in this encounter Orders Lab Orders Without Results Count Last Ordered D ate First Ordered Date TSH 1 06/23/2021 documented in this encounter Care Teams Shake Table Operator Relationship Specialty Start Date End Date Ayla Solomon DO [facility]0 [facility] [address] [place] [address] PCP - General General Surgery 04/12/21 documented as of this encounter
--- OUTSIDE RECORDS SUMMARY | 2023-12-04 20:15 | XMS_ITS | Encounter Summary ---
Author Organization [facility] Address [address] [place] [address] Care Team Providers Care Day Care Teacher Name Role Phone Juanito Ayla Keagan LACY Primary Care Provider [phone] Encounter Details Date Type Department Care Team (Late st Contact Info) Description 06/30/2021 Documentation Visit [facility] OBGYN Services - [facility] [address] [place], [place] [phone] GhislaineBraulio mobely MD 111 [facility], [address] [place] [address] Social History Tobacco Use Types Packs/Day Years [...] as of this encounter Progress Notes * Caty Alvarado - 06/30/2021 0840 EDT MCFDNA Results: Negative Predicted Sex: Female CAYT ALVARADO MA 06/30/2021 8:40 documented in this encounter Plan of Treatment Not on file documented as of this encounter Goals Goal Patient Goal Type Associated Problems Recent Progress Patient-Stated? Author Weight Loss General Obesity, Class III, BMI 40-49.9 (morbid obesity) No Marva Hitchcock Note: Increased activity getting out doors with daughter documented as of this encounter Visit Diagnoses Not on filedocumented in this encounter Care Teams Day Care Teacher Relationship Specialty Start Date End Date Ayla Solomon DO [facility]0 [facility] [address] [place] [address] PCP - General General Surgery 04/12/21 documented as of this encounter
--- OUTSIDE RECORDS SUMMARY | 2023-12-04 20:15 | XMS_ITS | Encounter Summary ---
Author Organization [facility] Address [address] [place] [address] Care Team Providers Care Pet Caretaker Name Role Phone Juanito Ayla Keagan LACY Primary Care Provider [phone] Reason for Visit * Reason Onset Date Comments Follow-up 07/13/2021 Encounter Details Date Type Department Care Team (Late st Contact Info) Description 07/13/2021 Telephone [facility] OBGYN Services - [facility] [address] [place], [place] [address] Lucrecia Briggs MD [address] [place] [phone] Follow-up Social History Tobacco Use Types Packs/Day Years [...] encounter Miscellaneous Notes * Telephone Encounter - Lucrecia Briggs MD - 07/13/2021 1803 EDT Telephone call Tiny Cline is a 25 y.o. at 35w5d who is calling with bilateral hip and back pain. She is not certain if this is labor pain. Last she had back pain. Seen relatively recently and was closed on an exam. NST recently with VTX presentation and low head. No LOF, VB. Does not sound like she is having ctx. Good FM. Given our conversation, I think low likelihood of labor but offered L&D eval at any point if concerned. likely pain related to pelvic pressure. I recommended the following: - Belly band - Tylenol around the clock - Physical therapy (urdent referral placed) - Warm baths Appointment scheduled on Wednesday. Reviewed warning isngs -- concern for labor, bleeding, LOF, continued pain that is getting worse, decreased FM. Lucrecia Briggs MD documented in this encounter Plan of Treatment Not on file documented as of this encounter Goals Goal Patient Goal Type Associated Problems Recent Progress Patient-Stated? Author Weight Loss General Obesity, Class III, BMI 40-49.9 (morbid obesity) No Marva Hitchcock Note: Increased activity getting out doors with daughter documented as of this encounter Visit Diagnoses Not on filedocumented in this encounter Care Teams Pet Caretaker Relationship Specialty Start Date End Date Ayla Solomon DO [facility] [address] [place] [address] PCP - General General Surgery 04/12/21 documented as of this encounter
--- OUTSIDE RECORDS SUMMARY | 2023-12-04 20:15 | XMS_ITS | Encounter Summary ---
Author Organization [facility] Address [address] [place] [address] Care Team Providers Care Gauge Maker Apprentice Name Role Phone Danyel Forde DO Primary Care Provider + Ayla Solomon DO Primary Care Provider [phone] Encounter Details Date Type Department Care Team (Late st Contact Info) Description 01/27/2021 Lab Requisition [facility] Pathology & Laboratory Medicine - [facility] [address] [place] [address] Outr Resulting Lab, Provider Social History Tobacco [...] Name Priority Date/Time Associated Diagnosis Comments HOLD [facility] Today 01/27/2021 15:43 EST HOLD SST Today 01/27/2021 15:43 EST HEPATITIS C AB W REFLEX TO HCV RNA BY PCR Today 01/27/2021 15:43 EST HEPATITIS B SURFACE ANTIGEN Today 01/27/2021 15:43 EST documented in this encounter Results * HOLD [facility] (01/27/2021 15:43 EST) Hold Hold 01/27/2021 22:01 EST [facility] Blood VENOUS BLOOD / Unknown 01/27/2021 15:43 EST 01/27/2021 21:01 EST Provider Outr Resulting Lab LAB INFO SER VICE AND SUPPORT & PHONE RESULT [facility] [address] [place] [address] * HOLD SST (01/27/2021 15:43 EST) Hold Hold 01/27/2021 22:01 EST [facility] Blood VENOUS BLOOD / Unknown 01/27/2021 15:43 EST 01/27/2021 21:01 EST Provider Outr Resulting Lab LAB INFO SER VICE AND SUPPORT & PHONE RESULT [facility] [address] [place] [address] * HEPATITIS B SURFACE ANTIGEN (01/27/2021 15:43 EST) Pathologist [facility] Hep B Surface Ag Negative Negative 01/28/2021 12:03 EST [facility] Blood VENOUS BLOOD / Unknown 01/27/2021 15:43 EST 01/27/2021 21:00 EST Provider Outr Resulting Lab CHEMISTRY & BLOOD GAS ORDERABLES [facility] [address] [place] [address] * HEPATITIS C AB W REFLEX TO HCV RNA BY PCR (01/27/2021 15:43 EST) Pathologist [facility] Hep C Antibody Negative Negative 01/28/2021 10:36 EST [facility] Blood VENOUS BLOOD / Unknown 01/27/2021 15:43 EST 01/27/2021 21:00 EST Provider Outr Resulting Lab CHEMISTRY & BLOOD GAS ORDERABLES [facility] [address] [place] [address] documented in this encounter Visit Diagnoses Not on filedocumented in this encounter Additional Health Concerns Infection Onset Date Last Indicated Resolved Time COVID-19 07/14/2021 07/14/2021 07/25/2021 22:1 6 EDT documented as of this encounter Care Teams Gauge Maker Apprentice Relationship Specialty Start Date End Date Daynel Forde DO PCP - General Family Medicine - Primary Care 08/29/20 04/11/21 Ayla Solomon DO [address] [facility] [address] [place] [id number] PCP - General General Surgery 04/12/21 documented as of this encounter
--- OUTSIDE RECORDS SUMMARY | 2023-12-04 20:15 | XMS_ITS | Encounter Summary ---
Author Organization [facility] Address [address] [place] [address] Care Team Providers Care Underwriting Consultant Name Role Phone Ayla Solomon DO Primary Care Provider [phone] Reason for Referral * NCQA SPECIALIST (Routine/Next Available) - Order Cancelled Specialty Diagnoses / Procedures Referred By Eugene asencio Referred To Contact Diagnoses Encounter for supervision of other normal in second trimester Procedures US OB BIOPHYSICAL PROFILE WITH NON STRESS Braulio Scanlon MD [address] [phone] [facility]URSING Referral ID Status Reason Start Date Expiration Date V isits Requested Visits Authorized [id number] Order Cancelled 05/23/2021 12 12 Reason for Visit * NCQA SPECIALIST (Routine/Next Available) - Order Cancelled Specialty Diagnoses / Procedures Referred By Eugene asencio Referred To Contact Diagnoses Encounter for supervision of other normal in second trimester Procedures US OB BIOPHYSICAL PROFILE WITH NON STRESS Braulio Scanlon MD [address] [phone] [facility]URSING Referral ID Status Reason Start Date Expiration Date V isits Requested Visits Authorized [id number] Order Cancelled 05/23/2021 12 12 Encounter Details Date Type Department Care Team (Latest Contact Info) Description 07/08/2021 8:57 EDT - 07/08/2021 23:59 EDT Hospital Encounter [facility] Obstetrics Services - [address] [address] Encounter for supervision of other normal in [...] OB BIOPHYSICAL PROFILE WITH NON STRESS Routine 07/08/2021 10:02 EDT Encounter for supervision of other normal in second trimester documented in this encounter Results * US OB BIOPHYSICAL PROFILE WITH NON STRESS (07/08/2021 10:02 EDT) Anatomical Region Laterality Modality Pelvis Ultrasound 07/08/2021 9:42 EDT Narrative 07/08/2021 11:41 EDT Indication BMI 51.9. History ======= General [...] ======= LMP on: ?10/24/2020 GA by LMP ??36 w + 5 d GEOVANI by LMP : ? 07/31/2021 Stated Dating on: ?01/07/2021 GA at stated dating date 9 w + 0 d GA by stated dating ??35 w + 0 d GEOVANI by stated dating: ?08/12/2021 Assigned: ??Dating performed on 05/23/2021, based on the external assessment (on 01/07/2021) Assigned GA ?35 w + 0 d Assigned GEOVANI: ??08/12/2021 General Evaluation Cardiac activity: Present. FHR 157 bpm. movements: visualized. Presentation: cephalic. Placenta: posterior. Amniotic Fluid Assessment Amount of AF: normal MVP 4.8 cm. CHRISTI 15.8 cm. Q1 4.8 cm, Q2 4.0 cm, Q3 3.3 cm, Q4 3.7 cm Biophysical Profile 2: breathing movements 2: Gross body movements 2: tone 2: Amniotic fluid volume 2: NST 12/08: Biophysical profile score Interpretation: normal DVD number 2984, Duration: 13 minutes Method ======== Voluson E10, Transabdominal ultrasound examination. View: Limited by maternal habitus and by advanced gestational age. Impression [id number] Biophysical Profile (including NST) This is a patel . Please see BPP score above. Follow-up Follow-up with weekly BPPs. DATE OF SERVICE: 07/08/2021 Procedure Note Mary Jo Zuñiga MD - 07/08/2021 Indication BMI 51.9. History ======= General History [...] ======= LMP on: 10/24/2020 GA by LMP 36 w + 5 d GEOVANI by LMP : 07/31/2021 Stated Dating on: 01/07/2021 GA at stated dating date 9 w + 0 d GA by stated dating 35 w + 0 d GEOVANI by stated datin08/12/2021 Assigned: Dating performed on 05/23/2021, based on the externalassessment (on 01/07/2021) Assigned GA 35 w + 0 d Assigned GEOVANI: 08/12/2021 General Evaluation Cardiac activity: Present. FHR 157 bpm. movements: visualized. Presentation: cephalic. Placenta: posterior. Amniotic Fluid Assessment Amount of AF: normal MVP 4.8 cm. CHRISTI 15.8 cm. Q1 4.8 cm, Q2 4.0 cm, Q3 3.3 cm, Q4 3.7 cm Biophysical Profile 2: breathing movements 2: Gross body movements 2: tone 2: Amniotic fluid volume 2: NST 12/08: Biophysical profile score Interpretation: normal DVD number 2984, Duration: 13 minutes Method ======== Voluson E10, Transabdominal ultrasound examination. View: Limited bymaternal habitus and by advanced gestational age. Impression [id number] Biophysical Profile (including NST) This is a patel . Please see BPP score above. Follow-up Follow-up with weekly BPPs. DATE OF SERVICE: 07/08/2021 Braulio Scanlon MD IMG OB ORDERABL ES documented in this encounter Visit Diagnoses Diagnosis Encounter for supervision of other normal in second trimester documented in this encounter Care Teams Underwriting Consultant Relationship Specialty Start Date End Date Ayla Solomon DO [facility] [facility] [address] [place] [address] PCP - General General Surgery 04/12/21 documented as of this encounter
--- OUTSIDE RECORDS SUMMARY | 2023-12-04 20:15 | XMS_ITS | Encounter Summary ---
Author Organization [facility] Address [address] [place] [address] Care Team Providers Care Legal Aide Name Role Phone Juanito Ayla Keagan LACY Primary Care Provider [phone] Reason for Visit * Reason Comments Routine Visit Encounter Details Date Type Department Care Team (Late st Contact Info) Description 07/15/2021 14:45 EDT Telemedicine [facility] OBGYN Services - [facility] [address] [place], [place] [address] Lucrecia Briggs MD [address] [place] [phone] Supervision of normal intrauterine in multigravida in third trimester (Primary Dx) Social History [...] as of this encounter Progress Notes * Lucrecia Briggs MD - 07/15/2021 0736 EDT The concept of ???Telemedicine?? has been [...] care. S: Patient is a 25 y.o. 36w0d. No LOF, no VB. No regular ctxs. +FM. Feeling pelvic pressure. Minimal covid symptoms, just feels like a light cold. Insulin dosing 15u at bedtime Elevated with unhealthy meals, but values are good when healthy diet. Meets with Dr. Zuñiga today. O: Telehealth A/P:25 y.o. 36w0d : Supervision of other normal COVID+ /16, declines paxlovid. Already getting regular NSTs due to obesity and A2GDM. Already having regular growth scans. Requested next visit in person for GBS swab. Reviewed IOL at 39 wks -- would be OK with IOL at 39w0d on 08/05 but does NOT want to be inpatient ondaughter's bday (08/08) so would prefer IOL 08/05 or 08/09+. Lucrecia Briggs MD 07/15/2021 14:57 documented in this encounter Miscellaneous Notes * Assessment & Plan Note - Lucrecia Briggs MD - 07/15/2021 1442 EDTAssociated Problem(s): Supervision of other normal COVID+ 07/14, declines paxlovid. Already getting regular NSTs due to obesity and A2GDM. Already having regular growth scan. documented in this encounter Plan of Treatment Not on file documented as of this encounter Goals Goal Patient Goal Type Associated Problems Recent Progress Patient-Stated? Author Weight Loss General Obesity, Class III, BMI 40-49.9 (morbid obesity) No Marva Hitchcock Note: Increased activity getting out doors with daughter documented as of this encounter Visit Diagnoses Diagnosis Supervision of normal intrauterine in multigravida in third trimester- Primary documented in this encounter Additional Health Concerns Infection Onset Date Last Indicated Resolved Time COVID-19 07/14/2021 07/14/2021 07/25/2021 22:1 6 EDT documented as of this encounter Care Teams Legal Aide Relationship Specialty Start Date End Date Ayla Solomon DO [facility] [address] [place] [address] PCP - General General Surgery 04/12/21 documented as of this encounter
--- OUTSIDE RECORDS SUMMARY | 2023-12-04 20:15 | XMS_ITS | Encounter Summary ---
Author Organization [facility] Address [address] [place] [address] Care Team Providers Care Chair Upholsterer Name Role Phone Juanito Ayla Keagan LACY Primary Care Provider [phone] Reason for Visit * Reason Onset Date Comments Pre-visit Orders 05/02/2021 Encounter Details Date Type Department Care Team (Late st Contact Info) Description 05/02/2021 Orders Only [facility] Obstetrics & Midwifery - [facility] [address], [place] [id number] Penelope Joseph, ROULA Supervision of high risk in second trimester (Primary Dx) Social History Tobacco Use [...] as of this encounter Progress Notes * Penelope Joseph, ROULA - 05/02/2021 1337 EST Detailed US ordered per process (has not been scanned here this ). Planning transfer of care from [facility] due to high BMI (>50). Will coordinate with MD transfer of care, msg to [facility] to set up. documented in this encounter Plan of Treatment Not on file documented as of this encounter Goals Goal Patient Goal Type Associated Problems Recent Progress Patient-Stated? Author Weight Loss General Obesity, Class III, BMI 40-49.9 (morbid obesity) No Marva Hitchcock Note: Increased activity getting out doors with daughter documented as of this encounter Results * US OB DETAILED [...] ?1,293 g 36% Hart Calculated by: Hadlock ([id number]) EFW (lb) ?? 2 lb EFW (oz) ?? 14 oz Cephalic index 0.76 ?21% Nicolaides HC / AC ?1.04 FL / BPD ?? 0.77 FL / AC ?0.22 MVP ?5.5 cm CHRISTI ?18.1 cm FHR ?153 bpm Head / Face / Neck Practice Billing Associate 6.1 mm Nasal bone 11.7 mm Extremities [...] normal IVC: ?? normal 3-vessel view: normal 1-mysiba-syczdid view: normal Rt lung: ?? normal Lt [...] by maternal habitus Limited by position. Impression [id number] Obstetrical ultrasound with and maternal evaluation, including [...] 1,293 g 36% Hart Calculated by: Hadlock ([id number]) EFW (lb) 2 lb EFW (oz) 14 oz Cephalic index 0.76 21% Nicolaides HC / AC 1.04 FL / BPD 0.77 FL / AC 0.22 MVP 5.5 cm CHRISTI 18.1 cm FHR 153 bpm Head / Face / Neck Practice Billing Associate 6.1 mm Nasal bone 11.7 mm Extremities [...] SVC: normal IVC: normal 3-vessel view: normal 5-ifjeff-szdxelj view: normal Rt lung: normal Lt lung: [...] by maternal habitus Limited by position. Impression [id number] Obstetrical ultrasound with and maternal evaluation, includingdetailed [...] DATE OF SERVICE: 05/23/2021 Mena Hunt MD [facility] OB ORDERABLES documented in this encounter Visit Diagnoses Diagnosis Supervision of high risk in second trimester- Primary Unspecified high-risk Supervision of high risk in second trimester Unspecified high-risk documented in this encounter Care Teams Chair Upholsterer Relationship Specialty Start Date End Date Ayla Solomon DO [facility] [facility] [address] [place] [address] PCP - General General Surgery 04/12/21 documented as of this encounter
--- OUTSIDE RECORDS SUMMARY | 2023-12-04 20:15 | XMS_ITS | Encounter Summary ---
Author Organization [facility] Address [address] [place] [address] Care Team Providers Care Lock Tender Chief Operator Name Role Phone JuanitoAyla Keagan LACY Primary Care Provider [phone] Reason for Visit * Reason Comments Follow-up Encounter Details Date Type Department Care Team (Late st Contact Info) Description 06/16/2021 14:15 EDT Telemedicine [facility] Obstetrics & Midwifery - [facility] [address], [place] [id number] Mena Hunt MD [address] [facility], [address] [place] [address] Status post radioactive iodine thyroid ablation (Primary Dx); Supervision of other normal ; Obesity, Class III, BMI 40-49.9 (morbid obesity) (HCC) ([facility]); Insulin controlled gestational diabetes mellitus (GDM) in third trimester Social History Tobacco Use [...] as of this encounter Progress Notes * Mena Hunt MD - 06/16/2021 1415 EDT MFM fu Pt feeling well On NPH 5u at bedtime with excellent control Has 06/23 Imp/Plan: Remain in NPH 5u at bedtime MFM visit q4 wks Send glucoses to MFM RNs week;y EFW next week The concept of ???Telemedicine?? has been described [...] by telephone. I spent a total of 15 minutes in discussion with the patientas described in the progress note. Mena Hunt MD documented in this encounter Plan of Treatment Not on file documented as of this encounter Goals Goal Patient Goal Type Associated Problems Recent Progress Patient-Stated? Author Weight Loss General Obesity, Class III, BMI 40-49.9 (morbid obesity) Marva Vaughn Note: Increased activity getting out doors with daughter documented as of this encounter Visit Diagnoses Diagnosis Status post radioactive iodine thyroid ablation- Primary Other postprocedural status Supervision of other normal Obesity, Class III, BMI 40-49.9 (morbid obesity) ([facility]) Morbid obesity Insulin controlled gestational diabetes mellitus (GDM) in third trimester documented in this encounter Care Teams Lock Tender Chief Operator Relationship Specialty Start Date End Date Ayla Solomon DO [facility] [facility] [facility] [address] [place] [address] PCP - General General Surgery 04/12/21 documented as of this encounter
--- OUTSIDE RECORDS SUMMARY | 2023-12-04 20:15 | XMS_ITS | Encounter Summary ---
Author Organization [facility] Address [address] [place] [address] Care Team Providers Care Refrigerator Repair Technician Name Role Phone Juanito Aylaflorence Boogie DO Primary Care Provider [phone] Reason for Visit * Reason Onset Date Comments Blood Glucose Review 07/07/2021 Encounter Details Date Type Department Care Team (Late st Contact Info) Description 07/07/2021 Telephone [facility] Obstetrics & Midwifery - [facility] [address], [place] [id number] Landon Joseph RN Blood Glucose Review Social [...] Refills Start Date End Da te insulin NPH (NOVOLIN N) 100 unit/mL (3 mL) injectable pen Inject 15 Units into the skin at bedtime. 5 Each 3 07/07/2021 08/08/2021 documented in this encounter Miscellaneous Notes * Telephone Encounter - Landon Joseph RN - 07/07/2021 1422 EDT Blood sugars received via My Chart from Tiny (34w6d) who is currently taking 10 units of NPH QHS. Blood glucose log from 06/30-07/07: 4 / 8 Fasting >/= 95 3 / 7 2hr PP Breakfast >/= 120 2 / 7 2hr PP Lunch >/= 120 3 / 7 2hr PP Dinner >/= 120 Reviewed by MD White who recommends increasing the patient's NPH to 15 units. Elevated post-prandial blood sugars range from 120-130 after eating dessert). Replied to patient's My Chart msg with MD recommendations. Pharmacy updated. Hard copy of blood sugar log sent to [facility]. LANDON JOSEPH RN 07/07/2021 14:22 documented in this encounter Plan of Treatment [...] Reason Start Date End Da te insulin NPH (NOVOLIN N) 100 unit/mL (3 mL) injectable pen Inject 10 units into skin at bedtime as instructed. 06/23/2021 07/07/2021 documented as of this encounter Care Teams Refrigerator Repair Technician Relationship Specialty Start Date End Date Ayla Solomon DO [facility] [facility] [facility] [place] [address] PCP - General General Surgery 04/12/21 documented as of this encounter
--- OUTSIDE RECORDS SUMMARY | 2023-12-04 20:15 | XMS_ITS | Encounter Summary ---
Author Organization [facility] Address [address] [place] [address] Care Team Providers Care Carver Hand Name Role Phone Juanito Alya Keagan LACY Primary Care Provider [phone] Encounter Details Date Type Department Care Team (Late st Contact Info) Description 06/09/2021 Orders Only [facility] OBGYN Services - Main [place] [address] [place], [place] [address] Bethany Flanagan, ROULA Social History Tobacco Use Types Packs/Day Years [...] at bedtime. 100 Each 3 06/09/2021 07/29/2021 documented in this encounter Plan of Treatment [...] needles 31G x 5/16 BD UltraFine Short. 06/09/2021 06/09/2021 documented as of this encounter Care Teams Carver Hand Relationship Specialty Start Date End Date Ayla Solomon DO [facility] [facility] [address] [address] [place] [address] PCP - General General Surgery 04/12/21 documented as of this encounter
--- OUTSIDE RECORDS SUMMARY | 2023-12-04 20:16 | XMS_ITS | Encounter Summary ---
Author Organization [facility] Address [address] [place] [address] Care Team Providers Care Spinning Frame Cleaner Name Role Phone Marva Hitchcock MD Primary Care Provider [phone] Reason for Visit * Reason Onset Date Comments Appointment Related 05/19/2019 Encounter Details Date Type Department Care Team (Late st Contact Info) Description 05/19/[address] [phone] Marva Hitchcock MD [address] [place] [phone] Appointment Related Social History Tobacco Use Types Packs/Day Years Used Date Smoking Tobacco: Former Cigarettes 0.5 5 Smokeless Tobacco: Never Comments:quit prior to datin g ultrasound Alcohol Use Standard Drinks/Week Comments No 8 (1 standard drink = 0.6 oz pure alcohol) no drinking since dating ultrasound Sex and Gender Information Value Date Recorded [...] encounter Miscellaneous Notes * Telephone Encounter - Bessie Kong LPN - 05/19/2019 1102 EDT Called patient and left message to let her know that 06/02/19 appointment with Silva Mckee has been changed to a phone visit, if she would like a video visit, requested that she call office to request video visit. BESSIE KONG LPN 05/19/2019 11:05 documented in this encounter Plan of Treatment Not on file documented as of this encounter Goals Goal Patient Goal Type Associated Problems Recent Progress Patient-Stated? Author Weight Loss General Obesity, Class III, BMI 40-49.9 (morbid obesity) No Marva Hitchcock Note: Increased activity getting out doors with daughter documented as of this encounter Visit Diagnoses Not on filedocumented in this encounter Care Teams Spinning Frame Cleaner Relationship Specialty Start Date End Date Marva Hitchcock MD [address] [place] [phone] PCP - General 06/03/17 06/28/20 documented as of this encounter
--- OUTSIDE RECORDS SUMMARY | 2023-12-04 20:16 | XMS_ITS | Encounter Summary ---
Author Organization [facility] Address [address] [place] [address] Care Team Providers Care Commercial Production Editor Name Role Phone Marva Hitchcock MD Primary Care Provider [phone] Reason for Visit * Reason Onset Date Comments Pharmacy 12/01/2019 Encounter Details Date Type Department Care Team (Late st Contact Info) Description 12/01/2019 Telephone [facility] Endocrinology - [facility] [address] [place] [address] Carlos Nuñez DO [address] [facility] [address] [place] [address] Pharmacy Social History Tobacco Use Types Packs/Day Years [...] Answer Date Record ed Physically Hurt Never 10/01/2019 Verbally Threaten Never 10/01/2019 Sex and Gender Information Value Date Recorded [...] encounter Miscellaneous Notes * Telephone Encounter - Diana Dewitt RN - 12/07/2019 1214 EDT Called [facility] and related to pharmacy that pt had been taking Levothyroxine 25mcg along with 175 mcg for a totoal of 200 mcg. 200 mcg is pt's script, and will not be taking 25or 175 mcg. Pharmacy also aware taht pt has no refills, needs an appt for further refills. Pharmacy verbalized understanding. No barriers to learning noted. Diana Dewitt RN Endocrinology' * Telephone Encounter - Angelina Noe - 12/01/2019 0939 EDT Ariadna calling from [employer], states that they need a 90 day script for the levothyroxine 25 mcg to be able to bill the patients insurance. Please send that over to [facility] [place] documented in this encounter Plan of Treatment Not on file documented as of this encounter Goals Goal Patient Goal Type Associated Problems Recent Progress Patient-Stated? Author Weight Loss General Obesity, Class III, BMI 40-49.9 (morbid obesity) No Marva Hitchcock Note: Increased activity getting out doors with daughter documented as of this encounter Visit Diagnoses Diagnosis Mild intermittent asthma without complication- Primary Unspecified asthma documented in this encounter Care Teams Commercial Production Editor Relationship Specialty Start Date End Date Marva Hitchcock MD [address] [place] [phone] PCP - General 06/03/17 06/28/20 documented as of this encounter
--- OUTSIDE RECORDS SUMMARY | 2023-12-04 20:16 | XMS_ITS | Encounter Summary ---
Author Organization [facility] Address [address] [place] [address] Care Team Providers Care Lasting Room Machine Operator Name Role Phone Marva Hitchcock MD Primary Care Provider Reason for Visit * Reason Onset Date Comments Medications Refill 12/09/2019 Encounter Details Date Type Department Care Team (Late st Contact Info) Description 12/09/2019 Telephone [facility] Primary Care [facility] [address] [place], [place] [address] Marva Hitchcock MD [address] [place] [phone] Medications Refill Social History Tobacco Use Types [...] Dispensed Refills Start Date End Da te valACYclovir (VALTREX) 500 mg tabletIndications:PCR DNA positive for HSV1 TAKE ONE TABLET BY MOUTH TWICE A DAY 10 Tab 1 12/09/2019 03/15/2020 documented in this encounter Miscellaneous Notes * Telephone Encounter - Loli Valdivia APRN - 12/09/2019 1104 EDT Yes- fine to refill * Telephone Encounter - Marva Ch - 12/09/2019 1046 EDT Last filled 09/19/19. * Telephone Encounter - Lula Palomino - 12/09/2019 0947 EDT Medication(s) Requested: Valtrex Preferred Pharmacy: [facility] Is patient out of medication? Yes Last Refill Date: Last Visit Date with Ordering Provider: Next Non-Acute Visit Date Scheduled with Care Team: Lula Palomino 12/09/2019 9:47 documented in this encounter Plan of Treatment Not on file documented as of this encounter Goals Goal Patient Goal Type Associated Problems Recent Progress Patient-Stated? Author Weight Loss General Obesity, Class III, BMI 40-49.9 (morbid obesity) No Marva Hitchcock Note: Increased activity getting out doors with daughter documented as of this encounter Visit Diagnoses Diagnosis PCR DNA positive for HSV1- Primary Special screening examination for other specified viral diseases documented in this encounter Discontinued Medications Medication Sig Discontinue Reason Start Date End Da te valACYclovir (VALTREX) 500 mg tabletIndications:PCR DNA positive for HSV1 TAKE ONE TABLET BY MOUTH TWICE A DAY Reorder 09/19/2019 12/09/2019 documented as of this encounter Care Teams Lasting Room Machine Operator Relationship Specialty Start Date End Date Marva Hitchcock MD [address] [place] [phone] PCP - General 06/03/17 06/28/20 documented as of this encounter
--- OUTSIDE RECORDS SUMMARY | 2023-12-04 20:16 | XMS_ITS | Encounter Summary ---
Author Organization [facility] Address [address] [place] [address] Care Team Providers Care Furnace Fitter Name Role Phone Marva Hitchcock MD Primary Care Provider Unknown, Provider Primary Care Provider Camilla Jiang MD Primary Care Provider [phone] Danyel Forde DO Primary Care Provider + Danyel Forde DO Primary Care Provider + Ayla Solomon DO Primary Care Provider [phone] Encounter Details Date Type Department Care Team (Late st Contact Info) Description 11/29/2019 Lab Requisition [facility] Pathology & Laboratory Medicine - [facility] [address] [place] [address] Outr Resulting Lab, Provider Social History Tobacco [...] Name Priority Date/Time Associated Diagnosis Comments HOLD SST Today 11/29/2019 12:30 EDT HOLD SST Today 11/29/2019 12:30 EDT PROLACTIN Today 11/29/2019 12:30 EDT DHEA SULFATE Today 11/29/2019 12:30 EDT FSH Today 11/29/2019 12:30 EDT documented in this encounter Results * HOLD SST (11/29/2019 12:30 EDT) Pathologist [facility] Hold Hold 11/29/2019 22:31 EDT [facility] Blood VENOUS BLOOD / Unknown 11/29/2019 12:30 EDT 11/29/2019 21:22 EDT Provider Outr Resulting Lab LAB INFO SER VICE AND SUPPORT & PHONE RESULT Performing Organization Address [facility]/ZIP Co de Phone Number [facility] [address] [place] [address] * HOLD SST (11/29/2019 12:30 EDT) Hold Hold 11/29/2019 22:31 EDT [facility] Blood VENOUS BLOOD / Unknown 11/29/2019 12:30 EDT 11/29/2019 21:22 EDT Provider Outr Resulting Lab LAB INFO SER VICE AND SUPPORT & PHONE RESULT Performing Organization Address [facility] de Phone Number [facility] [address] [place] [address] * FSH (11/29/2019 12:30 EDT) FSH 2.7 See Note mIU/mL 11/29/2019 22:40 EDT [facility] Blood VENOUS BLOOD / Unknown 11/29/2019 12:30 EDT 11/29/2019 21:21 EDT Narrative [facility] - 11/29/2019 22:40 EDT NOTE: Female FSH Reference Ranges (>= 13 Menstruating): PHYSIOLOGICAL STATUS ? REFERENCE RANGE ? Follicular (-12 to -4 days): ?? 2.5 - 10.2 mIU/mL Midcycle (-3 to +2 days): ?3.4 - 33.4 mIU/mL Luteal (+4 to +12 days): ? 1.5 - 9.1 mIU/mL Postmenopausal: ?23.0 - 116.3 mIU/mL Reference Ranges for female patients <13 years old have not been established. Provider Outr Resulting Lab CHEMISTRY & BLOOD GAS ORDERABLES Performing Organization Address [facility] Co de Phone Number [facility] [address] [place] [address] * PROLACTIN (11/29/2019 12:30 EDT) Prolactin 7.5 See Table ng/mL 11/29/2019 22:40 EDT [facility] Comment: NOTE: Female Reference Ranges: PHYSIOLOGICAL STATUS ?EXPECTED RANGE ? Postmenopausal ?1.8 - 20.3 ng/mL ?9.7 - 208.5 ng/mL Non- ?2.8 - 29.2 ng/mL Reference Ranges for Prolactin in female patients <18 years old have not been established. Blood VENOUS BLOOD / Unknown 11/29/2019 12:30 EDT 11/29/2019 21:21 EDT Provider Outr Resulting Lab CHEMISTRY & BLOOD GAS ORDERABLES Performing Organization Address [facility] Co de Phone Number [facility] [address] [place] [address] * (ABNORMAL) DHEA SULFATE (11/29/2019 12:30 EDT) DHEA Sulfate 77(L) 96 - 512 ug/dL 12/01/2019 8:53 EDT [facility] Blood VENOUS BLOOD / Unknown 11/29/2019 12:30 EDT 11/29/2019 21:21 EDT Provider Outr Resulting Lab CHEMISTRY & BLOOD GAS ORDERABLES [facility] [address] [place] [address] documented in this encounter Visit Diagnoses Not on filedocumented in this encounter Additional Health Concerns Infection Onset Date Last Indicated Resolved Time COVID-19 07/14/2021 07/14/2021 07/25/2021 22:1 6 EDT documented as of this encounter Care Teams Furnace Fitter Relationship Specialty Start Date End Date Marva Hitchcock MD [address] [place] [phone] PCP - General 06/03/17 06/28/20 Unknown, MD Misha PCP - General 06/29/20 08/01/20 Camilla Jiang MD [address] [place] [phone] PCP - General Family Medicine - Primary Care 08/02/20 08/27/20 Danyel Forde DO [address] [place] [phone] PCP - General Family Medicine - Primary Care 08/29/20 04/11/21 aDnyel Forde DO [address] [place] [phone] PCP - General 08/28/20 08/28/20 Ayla Solomon DO [address] [place] [address] [address] [place] [phone] PCP - General General Surgery 04/12/21 documented as of this encounter
--- OUTSIDE RECORDS SUMMARY | 2023-12-04 20:16 | XMS_ITS | Encounter Summary ---
Author Organization [facility] Address [address] [place] [address] Care Team Providers Care Ham Doctor Name Role Phone EulaDanyel Primary Care Provider + Reason for Visit * Reason Onset Date Comments Appointment Related 10/24/2020 Encounter Details Date Type Department Care Team (Late st Contact Info) Description 10/24/2020 Telephone [facility] Endocrinology - [facility] [address] [place] [address] Carlos Nuñez DO [address] [facility] [address] [place] [phone] Appointment Related Social History Tobacco [...] encounter Miscellaneous Notes * Telephone Encounter - Ninfa Valenzuela - 10/24/2020 1550 EDT LMOM to schedule Follow Up appointment with Dr. Nuñez. PT is due for Follow Up anytime after 12/16/20. Recall Letter sent. documented in this encounter Plan of Treatment Not on file documented as of this encounter Goals Goal Patient Goal Type Associated Problems Recent Progress Patient-Stated? Author Weight Loss General Obesity, Class III, BMI 40-49.9 (morbid obesity) No Marva Hitchcock Note: Increased activity getting out doors with daughter documented as of this encounter Visit Diagnoses Not on filedocumented in this encounter Care Teams Ham Doctor Relationship Specialty Start Date End Date Danyel Forde DO PCP - General Family Medicine - Primary Care 08/29/20 04/11/21 documented as of this encounter
--- OUTSIDE RECORDS SUMMARY | 2023-12-04 20:16 | XMS_ITS | Encounter Summary ---
Author Organization [facility] Address [address] [place] [address] Care Team Providers Care Firearms Inspector Name Role Phone Marva Hitchcock MD Primary Care Provider Reason for Visit * Reason Comments Test Negative home test- Planned on trying to get after her period that should have started 09/03/19. Patient is now 10days late. Encounter Details Date Type Department Care Team (Late st Contact Info) Description 09/13/2019 14:15 EDT Office Visit [facility] Family Medicine [address] [phone] Jolene Tovar MD [address] [place] [id number] Encounter for test, result unknown (Primary Dx); Hypothyroidism, unspecified type; Mild intermittent asthma without complication Social History Tobacco Use Types Packs/Day Years [...] have Coronavirus / COVID-19? No / Unsure 09/12/2019 10:51 EDT documented as of this encounter Last Filed Vital Signs Vital Sign Reading Time Taken Comments Blood Pressure 124/60 09/13/2019 1403 EDT Pulse 74 09/13/2019 1403 EDT Temperature 37.4 ??C (99.3 ??F) 09/13/2019 1403 EDT Respiratory Rate - - Oxygen Saturation - - Inhaled Oxygen Concentration - - Weight 115.7 kg (255 lb) 09/13/2019 1403 EDT Height 159 cm (5' 2.6) 09/13/2019 1403 EDT Body Mass Index 45.75 09/13/2019 1403 EDT documented in this encounter [...] Dispensed Refills Start Date End Da te albuterol 90 mcg/actuation inhalerIndications:Mild intermittent asthma without complication Inhale 2 Puffs as directed every 4 hours as needed for Wheezing. 1 Inhaler 11 09/13/2019 documented in this encounter Progress Notes * Janna Cruz - 09/13/2019 1415 EDT Venipuncture performed for TSH and Quant Beta HCG . Collected in right arm without incident. Per orders of Dr. Amy Pond Diagnosis of Z32.00, E03.9 Janna Cruz 09/13/2019 15:46 POCT UPT was run and resulted. Results negative Dr. Tovar was notified. Janna Cruz 09/13/2019 14:20 Results for orders placed or performed in visit on 09/13/19 POCT URINE DIPSTICK, CLINITEK Result Value Ref Range Color, UA Yellow Yellow Clarity, UA Clear Clear Glucose, UA Negative Negative mg/dL Bilirubin, UA Negative Negative Ketones, UA Negative Negative mg/dL Specific [place], Urine 1.015 1.001 - 1.035 Blood, UA Negative Negative pH, UA 5.5 <=8 Protein, UA Negative Negative mg/dL Urobilinogen, UA 0.2 0.2 - 1.0 EU/dL Nitrite, UA Negative Negative Leuk Esterase Trace (A) Negative Tech ID [id number] HN LAB COMMENT (CLINITEK, UR) Test performed at [facility] * Jolene Tovar MD - 09/13/2019 1415 EDT Subjective: Patient ID: Tiny Cline is an 23 y.o. female. Chief Complaint Patient presents with ??? Test Negative home test- Planned on trying to get after her period that should have started 09/03/19. Patient is now 10days late. HPI 2 weeks of cramping, lower back and hip pain Also nauseous Period late by a week now Had very similar symptoms when she was with her daughter Home test negative This would be a welcome She is very nervous because had a miscarriage in the past that was thought to be due to abnormal thyroid levels If she is wants to know right away so that her levothyroxine could be adjusted No dysuria, vaginal discharge or bleeding Patient Active Problem List Diagnosis ??? Acanthosis nigricans ??? Vitamin D deficiency ??? Status post radioactive iodine thyroid ablation ??? PCR DNA positive for HSV1 ??? Hypothyroidism, postablative ??? Closed fracture of nasal bone ??? Depression ??? Graves' disease ??? Autoimmune disorder (HCC-CMS) ??? Asthma ??? Obesity, Class III, BMI 40-49.9 (morbid obesity) ([facility]) Past Medical History: Diagnosis Date ??? ADD (attention deficit disorder) ??? Asthma, exercise induced ??? Autoimmune disorder ([facility]-CMS) Grave's disease ??? Depression was taking meds (can't remember what), stopped in 07/2016, no counselor ??? Herpes simplex virus (HSV) infection ??? Mood disorder ([facility]) ??? Thyroid disease Current Outpatient Medications on File Prior to Visit Medication Sig Dispense Refill ??? atomoxetine (STRATTERA) 80 mg capsule Take 1 Cap by mouth daily. 30 Cap 3 ??? levothyroxine (SYNTHROID) 175 mcg tablet Take 1 Tab by mouth daily. 90 Tab 3 No current facility-administered medications on file prior to visit. Allergies Allergen Reactions ??? Lorabid [Loracarbef] Nausea And Vomiting ??? Yeast, Dried Nausea And Vomiting If consumes large amounts will develop N/V Social Social History Tobacco Use ??? Smoking status: Former Smoker Packs/day: 0.50 Years: 5.00 Pack years: 2.50 Types: Cigarettes ??? Smokeless tobacco: Never Used ??? Tobacco comment: quit prior to dating ultrasound Substance Use Topics ??? Alcohol use: No Alcohol/week: 8.0 standard drinks Types: 7 Glasses of wine, 1 Standard drinks or equivalent per week Comment: no drinking since dating ultrasound ??? Drug use: No Review of Systems Constitutional: Negative for chills and fever. Respiratory: Negative for shortness of breath. Cardiovascular: Negative for chest pain and palpitations. Gastrointestinal: Positive for abdominal pain (cramping low abdomen) and nausea. Negative for constipation and diarrhea. Genitourinary: Negative for dysuria, flank pain, frequency and urgency. No change in vaginal discharge, no vaginal bleeding No vulvar irritation or pain Musculoskeletal: Positive for back pain and joint pain (hips). Skin: Negative. - See HPI Objective: BP 124/60 (BP Cuff Location: Right arm, BP Patient Position: Sitting, BP Cuff Sizes: Adult, large) Pulse 74 Temp 37.4 ??C (99.3 ??F) (Temporal) Ht 159 cm (62.6) Wt (!) 115.7 kg (255 lb) BMI 45.75 kg/m?? Physical Exam Constitutional: She is oriented to person, place, and time. She appears well- developed and well-nourished. No distress. HENT: Mouth/Throat: Mucous membranes are moist. Eyes: EOM are normal. Cardiovascular: Normal rate and regular rhythm. Pulmonary/Chest: Effort normal and breath sounds normal. No respiratory distress. Abdominal: Soft. Bowel sounds are normal. She exhibits no distension. There is tenderness (mild over suprapubic area). There is no rebound and no guarding. Neurological: She is alert and oriented to person, place, and time. Skin: Skin is warm and dry. No rash noted. She is not diaphoretic. No pallor. Psychiatric: She has a normal mood and affect. Her behavior is normal. Nursing note and vitals reviewed. Assessment: Tiny Cline is a 23 yo woman with history of Graves' disease s/p ablation now on thyroid replacement presenting with nausea and cramping in setting of missed period and home test negative. UPT negative today. Counseled regarding repeat urine testing in 1 week vs serum beta-HCG testing, patient prefers serum test today due to concern for effect of hypothyroidism on . Will recheck TSH, dose last adjusted 03/2019, at goal in 04/2019. UA with trace leuk esterase, sent for micro with reflex to culture. Discussed return for further evaluation if symptoms of cramping do not resolve. Plan: Tiny was seen today for test. Diagnoses and all orders for this visit: Encounter for test, result unknown - POCT TEST, VISUAL READ - QUANT BETA HCG, ; Future - TSH - POCT URINE CLINITEK (DIPSTICK) - DOES NOT REFLEX - POCT URINE DIPSTICK, CLINITEK - POCT CSN BARCODE URINE DIPSTICK - URINE SEDIMENT (MICRO) WITH REFLEX TO CULTURE - QUANT BETA HCG, Hypothyroidism, unspecified type - TSH Mild intermittent asthma without complication - albuterol 90 mcg/actuation inhaler; Inhale 2 Puffs as directed every 4 hours as needed for Wheezing. Return if symptoms worsen or fail to improve. * Robbie Combs III, MD - 09/13/2019 1415 EDT Attestation statement: I saw and examined the patient with the resident/fellow. I agree with the findings and plan of care documented in the resident's/fellow's note. Robbie Combs III, MD Family Medicine 09/28/19 documented in this encounter Miscellaneous Notes * Addendum Note - Robbie Combs III, MD - 09/13/2019 1415 EDTAddended by: ROBBIE COMBS on: 09/28/2019 15:01 Modules accepted: Level of Service documented in this encounter Plan of Treatment Not on file documented as of this encounter Goals Goal Patient Goal Type Associated Problems Recent Progress Patient-Stated? Author Weight Loss General Obesity, Class III, BMI 40-49.9 (morbid obesity) No Marva Hitchcock Note: Increased activity getting out doors with daughter documented as of this encounter Procedures Procedure Name Priority Date/Time Associated Diagnosis Comments UA SEDIMENT + REFLEX TO CULTURE Routine 09/13/2019 15:40 EDT Encounter for test, result unknown QUANT BETA HCG, Routine 09/13/2019 15:40 EDT Encounter for test, result unknown TSH Routine 09/13/2019 15:40 EDT Encounter for test, result unknown Hypothyroidism, unspecified type POCT URINE DIPSTICK, CLINITEK Routine 09/13/2019 14:49 EDT Encounter for test, result unknown POCT CSN BARCODE URINE DIPSTICK Routine 09/13/2019 14:35 EDT Encounter for test, result unknown POCT URINE CLINITEK (DIPSTICK) - DOES NOT REFLEX Routine 09/13/2019 14:35 EDT Encounter for test, result unknown POCT TEST, VISUAL READ Routine 09/13/2019 14:15 EDT Encounter for test, result unknown documented in this encounter Results * (ABNORMAL) URINE SEDIMENT (MICRO) WITH REFLEX TO CULTURE (09/13/2019 15:40 EDT) Urine RBC Count, Auto 0 - 2 0 - 2 Cells/HPF 09/13/2019 19:53 EDT [facility] Urine WBC Count, Auto 0 - 3 0 - 3 Cells/HPF 09/13/2019 19:53 EDT [facility] Urine Squamous Count, Auto Moderate(A ) None Seen Cells/HPF 09/13/2019 19:53 EDT [facility] Urine Hyaline Cast Count, Auto <=10 <=10 Casts/LPF 09/13/2019 19:53 EDT [facility] Urine Bacteria Count, Auto None Seen None Seen Bacteria/H PF 09/13/2019 19:53 EDT [facility] Urine URINE SPECIMEN OBTAINED BY CLEAN CATCH PROCEDURE / Unknown Urine Collect / Unknown 09/13/2019 15:40 EDT 09/13/2019 15:40 EDT [facility] - 09/13/2019 19:53 EDT NOTE: Reflex to Urine Culture test is not indicated based on Urine Sediment Analysis results. Urine Sediment Analysis results are unreliable on urines that are unrefrigerated for >2 hrs or refrigerated >8 hrs. Robbie Combs MD URINALYSIS ORDER LITZY Performing Organization Address [facility] Co de Phone Number [facility] [address] [place] [phone] * (ABNORMAL) TSH (09/13/2019 15:40 EDT) Pathologist [facility] TSH 11.80(H) 0.47 - 4.68 uIU/mL 09/13/2019 20:07 EDT [facility] Blood VENOUS BLOOD / Unknown Venipuncture / Unknown 09/13/2019 15:40 EDT 09/13/2019 15:40 EDT [facility] - 09/13/2019 20:07 EDT The results of this assay can be falsely lowered due to the consumption of Biotin. Batool Pond MD CHEMISTRY & BL OOD GAS ORDERABLES Performing Organization Address [facility]/ZIP Co de Phone Number [facility] [address] [place] [address] * QUANT BETA HCG, (09/13/2019 15:40 EDT) Beta HCG Quant, <5 <5 mIU/ml 09/13/2019 19:52 EDT [facility] Comment: NOTE: : Negative: Less than 5mIU/mL Indeterminant: Between 5 and 25 mIU/mL, recommend repeat testing in 48 hours Positive: Greater than 25 mIU/mL The results of this assay can be falsely lowered due to the consumption of Biotin. Blood VENOUS BLOOD / Unknown Venipuncture / Unknown 09/13/2019 15:40 EDT 09/13/2019 15:40 EDT Batool Pond MD CHEMISTRY & BL OOD GAS ORDERABLES [facility] [address] [place] [address] * (ABNORMAL) POCT URINE DIPSTICK, CLINITEK (09/13/2019 14:49 EDT) Color, UA Yellow Yellow 09/13/2019 14:50 T [facility] Clarity, UA Clear Clear 09/13/2019 14:50 [facility] Glucose, UA Negative Negative mg/dL 09/13/2019 14:50 [facility] Bilirubin, UA Negative Negative 09/13/2019 14:50 T [facility] Ketones, UA Negative Negative mg/dL 09/13/2019 14:50 T [facility] Specific [place], Urine 1.015 1.001 - 1.035 09/13/2019 14:50 [facility] Blood, UA Negative Negative 09/13/2019 14:50 [facility] pH, UA 5.5 <=8 09/13/2019 14:50 [facility] Protein, UA Negative Negative mg/dL 09/13/2019 14:50 [facility] Urobilinogen, UA 0.2 0.2 - 1.0 EU/dL 09/13/2019 14:50 EDT [facility] Nitrite, UA Negative Negative 09/13/2019 14:50 EDT [facility] Leuk Esterase Trace(A) Negative 09/13/2019 14:50 EDT [facility] promotions director ID [id number] 09/13/2019 14:50 EDT [facility] HN LAB COMMENT (CLINITEK, UR) Test performed at [facility] 09/13/2019 14:50 EDT [facility] Urine URINE SPECIMEN OBTAINED BY CLEAN CATCH PROCEDURE / Unknown 09/13/2019 14:49 EDT 09/13/2019 14:50 EDT Batool Pond MD POINT OF CARE TEST ORDERABLES Performing Organization Address City/[facility]/ZIP Co de Phone Number [facility] [address] [place] [address] * POCT CSN BARCODE URINE DIPSTICK (09/13/2019 14:35 EDT) Hold Hold 09/13/2019 15:46 EDT [facility] Urine URINE SPECIMEN OBTAINED BY CLEAN CATCH PROCEDURE / Unknown 09/13/2019 14:35 EDT 09/13/2019 14:35 EDT Batool Pond MD LAB INFO SERVI CE AND SUPPORT & PHONE RESULT Performing Organization Address [facility]/ZIP Co de Phone Number [facility] [address] [place] [address] * POCT TEST, VISUAL READ (09/13/2019 14:15 EDT) Test, Urine, POC Negative Negative POINT OF CARE [facility] Control Line Present Yes POINT OF CARE [facility] Background Clear? Yes POINT OF CARE [facility] Urine URINE / Unknown 09/13/2019 1 4:15 EDT Batool Pond MD POINT OF CARE TEST ORDERABLES Performing Organization Address City/[facility]/ZIP Co de Phone Number POINT OF CARE [facility] documented in this encounter Visit Diagnoses Diagnosis Encounter for test, result unknown- Primary Hypothyroidism, unspecified type Mild intermittent asthma without complication Unspecified asthma documented in this encounter Discontinued Medications Medication Sig Discontinue Reason Start Date End Da te atomoxetine (STRATTERA) 40 mg capsuleIndications:Attent ion deficit hyperactivity disorder (ADHD), unspecified ADHD type Take 1 Cap by mouth daily. Therapy completed 05/05/2019 09/13/2019 albuterol 90 mcg/actuation inhalerIndications:Mild intermittent asthma without complication Inhale 2 Puffs as directed every 4 hours as needed for Wheezing. Reorder 08/24/2018 09/13/2019 documented as of this encounter Care Teams Firearms Inspector Relationship Specialty Start Date End Date Marva Hitchcock MD [address] [place] [phone] PCP - General 06/03/17 06/28/20 documented as of this encounter
--- OUTSIDE RECORDS SUMMARY | 2023-12-04 20:16 | XMS_ITS | Encounter Summary ---
Author Organization [facility] Address [address] [place] [address] Care Team Providers Care Welder Setter Electron Beam Machine Name Role Phone Marva Hitchcock MD Primary Care Provider Reason for Visit * Reason Comments Telemedicine Video Visit Encounter Details Date Type Department Care Team (Late st Contact Info) Description 11/09/2019 13:30 EDT Telemedicine [address] [phone] Camilla Jiang MD [address] [place] [phone] Chronic bilateral low back pain without sciatica (Primary Dx) Social History Tobacco Use Types [...] Dispensed Refills Start Date End Da te naproxen (NAPROSYN) 500 mg tabletIndications:Chroni c bilateral low back pain without sciatica Take 1 Tab by mouth 2 times daily with breakfast and dinner. 60 Tab 2 11/09/2019 04/12/2021 documented in this encounter Progress Notes * Janna Cruz - 11/09/2019 1330 EDT The concept of ???Telemedicine?? has [...] visit was provided through telemedicine video conferencing: The location of the patient : Home The location of the provider: Clinic Exam Room The following staff and their role did participate in today's encounter visit: Janna Cruz * Camilla Jiang MD - 11/09/2019 1330 EDT Telemedicine Visit Note Visit by video The concept of ???Telemedicine?? has been described to the patient. Patient has been informed of the anticipated benefits and possible risks. Patient understands the information provided regarding telemedicine, has had the opportunity to ask questions about this information, and all questions havebeen answered to patient???s satisfaction. Patient consents for the use of telemedicine in his/her medical care and authorizes the transmission of any relevant medical information to providers and their staff involved in patient???s medical or mental health care. TELEMEDICINE VIDEO VISIT Today's visit was provided through telemedicine video conferencing: The location of the patient : Home The location of the provider: Clinic Exam Room The following staff and their role did participate in today's encounter visit: Camilla Jiang MD Medication reconciliation was completed and allergy list was reviewed with patient. PMH, FH, SH also reviewed. Subjective Chief Complaint Patient presents with ??? Telemedicine Video Visit HPI: Issues and concerns addressed today: 1) Hip and back pain: has had pain for awhile, has tried OTC, CBD, chiropractor, nothing has really helped. Wonders about medicines for pain. This pain started when she got with her daughter two years ago. It is located in the lower back and both hips. It is constant, especially after work and when she is trying to sleep. It is a sharp and throbbing pain. It does not radiate. Ibuprofen does not seem to help. Has lost weight recently. Has been exercising. Has been also watching what she eats. She reports having full range of motion. But moving to the sides does hurt. Stretching seems to perhaps help, she stretches sometimes. Laying flat down is painful. Being on her feet for long periods make it worse too. Works from 5am to noon. She works at [employer] and is on her feet the whole time. Is hoping for pain management. ROS: See relevant review of system in HPI Patient Active Problem List Diagnosis ??? Acanthosis nigricans ??? Vitamin D deficiency ??? Status post radioactive iodine thyroid ablation ??? PCR DNA positive for HSV1 ??? Hypothyroidism, postablative ??? Closed fracture of nasal bone ??? Depression ??? Graves' disease ??? Autoimmune disorder (HCC-CMS) ??? Asthma ??? Obesity, Class III, BMI 40-49.9 (morbid obesity) ([facility]) Past Medical History: Diagnosis Date ??? ADD (attention deficit disorder) ??? Asthma, exercise induced ??? Autoimmune disorder ([facility]) Grave's disease ??? Depression was taking meds (can't remember what), stopped in 07/2016, no counselor ??? Herpes simplex virus (HSV) infection ??? Mood disorder ([facility]) ??? Thyroid disease Current Outpatient Medications on File Prior to Visit Medication Sig Dispense Refill ??? albuterol 90 mcg/actuation inhaler Inhale 2 Puffs as directed every 4 hours as needed for Wheezing. 1 Inhaler 11 ??? atomoxetine (STRATTERA) 80 mg capsule Take 1 Cap by mouth daily. 30 Cap 3 ??? levothyroxine (SYNTHROID) 175 mcg tablet Take 1 Tab by mouth daily. 90 Tab 3 ??? levothyroxine (SYNTHROID) 25 mcg tablet Take 1 Tab by mouth daily. Take one tablet daily with 1tablet of Levothyroxine 175 mcg for a daily total of 200 mcg. 30 Tab 3 ??? valACYclovir (VALTREX) 500 mg tablet TAKE ONE TABLET BY MOUTH TWICE A DAY 10 Tab 1 No current facility-administered medications on file prior to visit. Allergies Allergen Reactions ??? Lorabid [Loracarbef] Nausea And Vomiting ??? Yeast, Dried Nausea And Vomiting If consumes large amounts will develop N/V Social History Tobacco Use ??? Smoking status: [...] since dating ultrasound ??? Drug use: No Objective Physical Exam: limited exam due to nature of telemedicine appointment Constitutional: she is oriented to person, place, and time. She appears well-developed. No distress. HENT: Head: No signs of injury. Nose: Nose normal. No nasal discharge. Eyes: Conjunctivae and EOM are normal. Right eye exhibits no discharge. Left eye exhibits no discharge. Neck: Neck supple. MSK: appears to have full ROM, is standing and moving around during interview Pulmonary/Chest: No respiratory distress. Neurological: She is alert and oriented to person, place, and time. Psychiatric: She has a normal mood and affect. Her behavior is normal. Assessment and Plan Tiny was seen today for telemedicine video visit. Diagnoses and all orders for this visit: Chronic bilateral low back pain without sciatica: no red flag sx such as bowel/bladder changes, no radiculopathy. Likely low back pain from general deconditioning and heavy body weight. Discussed that it is great she is making healthy changes to attempt to lose weight. Rec she try naproxen and PT. She will let us know if no relief and at that point would like inperson appointment. - naproxen (NAPROSYN) 500 mg tablet; Take 1 Tab by mouth 2 times daily with breakfast and dinner. - AMB CONS/FOLLOW UP PHYSICAL THERAPY; Future No follow-ups on file. Follow up will occur either in the office or by phone (if visits remain restricted by COVID-19 pandemic) This visit was conducted by telemedicine/video. I spent a total of 7 minutes in discussion with thepatient as described in the progress note and 7 minutes in documentation. Discussed with Dr. Ranjeet Jiang MD Family Medicine, PGY3 Pager [phone] 11/09/19 * Bere Pollack MD - 11/09/2019 1330 EDT Attestation statement: I discussed the patient with the resident/fellow at the time of the visit and agree with the findings and plan of care. Bere Pollack MD 11/09/2019 15:24 documented in this encounter Plan of Treatment Not on file documented as of this encounter Goals Goal Patient Goal Type Associated Problems Recent Progress Patient-Stated? Author Weight Loss General Obesity, Class III, BMI 40-49.9 (morbid obesity) No Marva Hitchcock Note: Increased activity getting out doors with daughter documented as of this encounter Visit Diagnoses Diagnosis Chronic bilateral low back pain without sciatica- Primary documented in this encounter Care Teams Welder Setter Electron Beam Machine Relationship Specialty Start Date End Date Marva Hitchcock MD [address] [place] [phone] PCP - General 06/03/17 06/28/20 documented as of this encounter
--- OUTSIDE RECORDS SUMMARY | 2023-12-04 20:16 | XMS_ITS | Encounter Summary ---
Author Organization [facility] Address [address] [place] [address] Care Team Providers Care Enterprise Account Executive Name Role Phone Marva Hitchcock MD Primary Care Provider Unknown, Provider Primary Care Provider Camilla Jiang MD Primary Care Provider [phone] Danyel Forde DO Primary Care Provider + Danyel Forde DO Primary Care Provider + Ayla Solomon DO Primary Care Provider [phone] Encounter Details Date Type Department Care Team (Late st Contact Info) Description 02/15/2020 Lab Requisition [facility] Pathology & Laboratory Medicine - [facility] [address] [place] [address] Enriqueta Fragoso MD [address] [place] [phone] Encounter for other general examination Social History Tobacco Use Types Packs/Day Years [...] Procedure Name Priority Date/Time Associated Diagnosis Comments SURGICAL PATHOLOGY Today 02/15/2020 14 :35 EST Encounter for other general examination documented in this encounter Results * SURGICAL PATHOLOGY (02/15/2020 14:35 EST) Final Diagnosis A. GALLBLADDER, CHOLECYSTECTOMY: - Acute and chronic erosive cholecystitis with cholelithiasis. 02/20/2020 10:20 EST [facility] Attestation There was significant resident/fellow involvement in the diagnostic evaluation of this case. By the signature below, the attending physician certifies that they have personally conducted a gross and/or microscopic examination of the described specimens and rendered or confirmed the above diagnosis. 02/20/2020 10:20 [facility] at 1020 Clinical History Cholelithiasis 02/20/2020 10:20 [facility] Gross Description A. Received in formalin labelled with proper patient identification (initials B, K) and gallbladder is an intact gallbladder with an attached segment of cystic duct (10.4 x 3.3 x 2.5 cm). A cystic duct lymph node is not present. The serosa is light friedman to dark brown, smooth, and glistening. The mucosa is light friedman to dark brown and the wall ranges from 0.2 cm to 0.5 cm in thickness. The cystic duct lumen is partially occluded and measures 0.7 cm in diameter. The cystic duct margin is inked blue. There are 8 yellow, granular, hard coleliths present within the lumen of the gallbladder. There is also abundant quantities of light to dark brown consolidated sludgelike material present within the lumen of the gallbladder. Three reimbursement representative sections and the en face cystic duct margin are submitted as follows: BLOCK ASTORGA A1- cystic duct margin en face and gallbladder neck section A2- gallbladder fundus, gallbladder body section ROHINI SAXENA MD 02/16/2020 14:27 02/20/2020 10:20 [facility] Resident/Anthony w: Rohini Saxena MD 02/20/2020 10:20 [facility] Performing Lab [facility] 02/20/2020 10:20 [facility] Scanned Images 02/20/2020 10:20 [facility] Tissue ENTIRE GALLBLADDER / Unknown 02/15/2020 14:35 EST 02/15/2020 23:18 EST Enriqueta Fragoso MD PATHOLOGY ORDERABLES [facility] [address] [place] [address] documented in this encounter Visit Diagnoses Diagnosis Encounter for other general examination documented in this encounter Additional Health Concerns Infection Onset Date Last Indicated Resolved Time COVID-19 07/14/2021 07/14/2021 07/25/2021 22:1 6 EDT documented as of this encounter Care Teams Enterprise Account Executive Relationship Specialty Start Date End Date Marva Hitchcock MD [address] [place] [phone] PCP - General 06/03/17 06/28/20 Unknown, Provider, PCP - General 06/29/20 08/01/20 Camilla Jiang MD [address] [place] [address] [phone] PCP - General Family Medicine - Primary Care 08/02/20 08/27/20 Danyel Forde DO [address] [place] [address] [phone] PCP - General Family Medicine - Primary Care 08/29/20 04/11/21 Danyel Forde DO [address] [place] [address] [phone] PCP - General 08/28/20 08/28/20 Ayla Solomon DO [address] [place] [address] DR M[address] [place] [phone] PCP - General General Surgery 04/12/21 documented as of this encounter
--- OUTSIDE RECORDS SUMMARY | 2023-12-04 20:16 | XMS_ITS | Encounter Summary ---
Author Organization [facility] Address [address] [place] [address] Care Team Providers Care Destination Sign Repairer Name Role Phone Marva Hitchcock MD Primary Care Provider Unknown, Provider Primary Care Provider Camilla Jiang MD Primary Care Provider [phone] Danyel Forde DO Primary Care Provider + Danyel Forde DO Primary Care Provider + Ayla Solomon DO Primary Care Provider [phone] Encounter Details Date Type Department Care Team (Late st Contact Info) Description 09/10/2019 Lab Requisition [facility] Pathology & Laboratory Medicine - [facility] [address] [place] [address] Outr Resulting Lab, Provider Social History Tobacco [...] 10:51 EDT documented as of this encounter Functional Status [...] Comments CHLAMYDIA/N. GONORRHOEAE AMPLIFIED NUCLEIC ACID Routine 09/10/2019 2:23 EDT documented in this encounter Results * CHLAMYDIA/N. GONORRHOEAE AMPLIFIED RNA (09/10/2019 2:23 EDT) Neisseria gonorrhoeae Result Negative Negative 09/11/2019 15:[address] [facility] Chlamydia trachomatis Result Negative Negative 09/11/2019 15:[address] [facility] Swab ENTIRE WALL OF CERVIX / Unknown 09/10/2019 2:23 EDT 09/10/2019 20:22 EDT Provider Outr Resulting Lab MICROBIOLOGY - GENERAL ORDERABLES [facility] [address] [place] [address] documented in this encounter Visit Diagnoses Not on filedocumented in this encounter Additional Health Concerns Infection Onset Date Last Indicated Resolved Time COVID-19 07/14/2021 07/14/2021 07/25/2021 22:1 6 EDT documented as of this encounter Care Teams Destination Sign Repairer Relationship Specialty Start Date End Date Marva Hitchcock MD [address] [place] [phone] PCP - General 06/03/17 06/28/20 Unknown, Provider, PCP - General 06/29/20 08/01/20 Camilla Jiang MD [address] [place] [phone] PCP - General Family Medicine - Primary Care 08/02/20 08/27/20 Danyel Forde DO [address] [place] [phone] PCP - General Family Medicine - Primary Care 08/29/20 04/11/21 Danyel Forde DO [address] [place] [phone] PCP - General 08/28/20 08/28/20 Ayla Solomon DO [address] [place] [address] DR [address] [place] [phone] PCP - General General Surgery 04/12/21 documented as of this encounter
--- OUTSIDE RECORDS SUMMARY | 2023-12-04 20:16 | XMS_ITS | Encounter Summary ---
Author Organization [facility] Address [address] [place] [address] Care Team Providers Care Coater Operator Insulation Board Name Role Phone Marva Hitchcock MD Primary Care Provider Reason for Visit * Reason Comments Wound Check Nurse visit for sutu re removal. Encounter Details Date Type Department Care Team (Late st Contact Info) Description 08/17/2019 11:00 EDT Nurse Only [address] [phone] Nurse, [facility], RN Suture check (Primary Dx) Social History Tobacco Use Types [...] Sign Reading Time Taken Comments Blood Pressure - - Pulse - - Temperature 36.7 ??C (98.1 ??F) 08/17/2019 1037 EDT Respiratory Rate - - Oxygen Saturation [...] as of this encounter Progress Notes * Bessie Kong LPN - 08/17/2019 1100 EDT Patient arrives to clinic for nurse visit to have sutures removed from lower abdomen. Area assessedby Stefanie Spencer RN and permission given to remove sutures. Area healing well, no drainage or redness noted. 4 sutures removed from lower abdomen. BESSIE KONG LPN 08/17/2019 10:49 I was supervised by Dr. Mcghee who was present and immediately available in the office suite. BESSIE KONG LPN 08/17/2019 10:54 * Stefanie Spencer RN - 08/17/2019 1100 EDT I assessed area with sutures today (had them in for 14 days) with OMA Faulkner present in exam room. Wound was closely approximated without any signs/symptoms of infection. Patient only verbalized they were irritating & was ready to have them removed. STEFANIE SPENCER RN 08/17/2019 11:04 documented in this encounter Plan of Treatment Not on file documented as of this encounter Goals Goal Patient Goal Type Associated Problems Recent Progress Patient-Stated? Author Weight Loss General Obesity, Class III, BMI 40-49.9 (morbid obesity) No Marva Hitchcock Note: Increased activity getting out doors with daughter documented as of this encounter Visit Diagnoses Diagnosis Suture check- Primary Other specified aftercare following surgery documented in this encounter Care Teams Coater Operator Insulation Board Relationship Specialty Start Date End Date Marva Hitchcock MD [address] [place] [phone] PCP - General 06/03/17 06/28/20 documented as of this encounter
--- OUTSIDE RECORDS SUMMARY | 2023-12-04 20:16 | XMS_ITS | Encounter Summary ---
Author Organization [facility] Address [address] [place] [address] Care Team Providers Care Principal Web Developer Name Role Phone Danyel Forde DO Primary Care Provider + Ayla Solomon DO Primary Care Provider [phone] Encounter Details Date Type Department Care Team (Late st Contact Info) Description 01/27/2021 Lab Requisition [facility] Pathology & Laboratory Medicine - [facility] [address] [place] [address] Outr Resulting Lab, Provider Social History Tobacco [...] Associated Diagnosis Comments RUBELLA IGG ANTIBODY Routine 01/27/2021 15:43 EST VARICELLA IGG ANTIBODY Routine 01/27/2021 15:43 EST documented in this encounter Results * VARICELLA IGG ANTIBODY (01/27/2021 15:43 EST) Varicella IgG Ab Positive See Note 01/28/2021 10:14 EST [facility] Comment:Presence of detectab le Varicella Zoster virus IgG antibodies. Blood VENOUS BLOOD / Unknown 01/27/2021 15:43 EST 01/27/2021 21:00 EST Provider Outr Resulting Lab IMMUNOLOGY A ND SEROLOGY ORDERABLES [facility] [address] [place] [address] * RUBELLA IGG ANTIBODY (01/27/2021 15:43 EST) Rubella IgG Ab Positive See Note 01/28/2021 10:16 EST [facility] Comment:Positive for IgG ant ibodies to Rubella virus. Blood VENOUS BLOOD / Unknown 01/27/2021 15:43 EST 01/27/2021 21:00 EST Provider Outr Resulting Lab CHEMISTRY & BLOOD GAS ORDERABLES [facility] [address] [place] [address] documented in this encounter Visit Diagnoses Not on filedocumented in this encounter Additional Health Concerns Infection Onset Date Last Indicated Resolved Time COVID-19 07/14/2021 07/14/2021 07/25/2021 22:1 6 EDT documented as of this encounter Care Teams Principal Web Developer Relationship Specialty Start Date End Date Danyel Forde DO PCP - General Family Medicine - Primary Care 08/29/20 04/11/21 Ayla Solomon DO [facility] [address] [place] [address] PCP - General General Surgery 04/12/21 documented as of this encounter
--- OUTSIDE RECORDS SUMMARY | 2023-12-04 20:16 | XMS_ITS | Encounter Summary ---
Author Organization [facility] Address [address] [place] [address] Care Team Providers Care Cattle Broker Name Role Phone Marva Hitchcock MD Primary Care Provider Unknown, Provider Primary Care Provider Camilla Jiang MD Primary Care Provider [phone] Danyel Forde DO Primary Care Provider + Danyel Forde DO Primary Care Provider + Ayla Solomon DO Primary Care Provider [phone] Encounter Details Date Type Department Care Team (Late st Contact Info) Description 02/15/2020 Lab Requisition [facility] Pathology & Laboratory Medicine - [facility] [address] [place] [address] Outr Resulting Lab, Provider Social History Tobacco [...] documented as of this encounter Care Teams Cattle Broker Relationship Specialty Start Date End Date Marva Hitchcock MD [address] [place] [phone] PCP - General 06/03/17 06/28/20 Unknown, MD Misha PCP - General 06/29/20 08/01/20 Camilla Jiang MD [address] [place] [phone] PCP - General Family Medicine - Primary Care 08/02/20 08/27/20 Danyel Forde DO [address] [place] [phone] PCP - General Family Medicine - Primary Care 08/29/20 04/11/21 Danyel Forde DO [address] [place] [phone] PCP - General 08/28/20 08/28/20 Ayla Solomon DO [address] [place] [address] DR [address] [place] [address], [place] [address] PCP - General General Surgery 04/12/21 documented as of this encounter
--- OUTSIDE RECORDS SUMMARY | 2023-12-04 20:16 | XMS_ITS | Encounter Summary ---
Author Organization [facility] Address [address] [place] [address] Care Team Providers Care Licensed Massage Therapist Name Role Phone Marva Hitchcock MD Primary Care Provider Reason for Visit * Reason Onset Date Comments Nausea 02/01/2020 Emesis 02/01/2020 Chest Pain 02/01/2020 Encounter Details Date Type Department Care Team (Late st Contact Info) Description 02/01/[address] [phone] Marva Hitchcock MD [address] [place] [phone] Nausea; Emesis; Chest Pain Social History Tobacco Use Types Packs/Day [...] encounter Miscellaneous Notes * Telephone Encounter - Yoli Skinner - 02/01/2020 0943 EST Care and concern call made. Left message for the patient to call our office if still symptomatic orhas any question/concerns. documented in this encounter Plan of Treatment Not on file documented as of this encounter Goals Goal Patient Goal Type Associated Problems Recent Progress Patient-Stated? Author Weight Loss General Obesity, Class III, BMI 40-49.9 (morbid obesity) No Marva Hitchcock Note: Increased activity getting out doors with daughter documented as of this encounter Visit Diagnoses Not on filedocumented in this encounter Care Teams Licensed Massage Therapist Relationship Specialty Start Date End Date Marva Hitchcock MD [address] [place] [phone] PCP - General 06/03/17 06/28/20 documented as of this encounter
--- OUTSIDE RECORDS SUMMARY | 2023-12-04 20:16 | XMS_ITS | Encounter Summary ---
Author Organization [facility] Address [address] [place] [address] Care Team Providers Care Gas Turbine Powerplant Mechanic Helper Name Role Phone Unknown, Provider Primary Care Provider [phone] Reason for Visit * Reason Onset Date Comments Nausea 07/02/2020 Emesis 07/02/2020 Encounter Details Date Type Department Care Team (Late st Contact Info) Description 07/02/[address] [phone] Marva Hitchcock MD [address] [place] [phone] Nausea; Emesis Social History Tobacco Use Types Packs/Day Years [...] encounter Miscellaneous Notes * Telephone Encounter - Yazan Sanchez - 07/02/2020 1419 EDT Care and concern call made. Left message for the patient to call our office if still symptomatic orhas any question/concerns. YAZAN SANCHEZ 07/02/2020 14:20 documented in this encounter Plan of Treatment Not on file documented as of this encounter Goals Goal Patient Goal Type Associated Problems Recent Progress Patient-Stated? Author Weight Loss General Obesity, Class III, BMI 40-49.9 (morbid obesity) No Marva Hitchcock Note: Increased activity getting out doors with daughter documented as of this encounter Visit Diagnoses Not on filedocumented in this encounter Care Teams Gas Turbine Powerplant Mechanic Helper Relationship Specialty Start Date End Date Unknown, Provider, PCP - General 06/29/20 08/01/20 documented as of this encounter
--- OUTSIDE RECORDS SUMMARY | 2023-12-04 20:16 | XMS_ITS | Encounter Summary ---
Author Organization [facility] Address [address] [place] [address] Care Team Providers Care Cotton Buyer Name Role Phone Marva Hitchcock MD Primary Care Provider [phone] Reason for Visit * Reason Comments Other Encounter Details Date Type Department Care Team (Late st Contact Info) Description 03/28/2020 [facility] Endocrinology - [facility] [address] [place] [address] Carlos Nuñez, [address] [facility] [address] [place] [phone] Other Social History Tobacco Use Types Packs/Day Years [...] End Da te levothyroxine (SYNTHROID) 200 mcg tablet Take 1 Tab by mouth daily. 90 Tab 2 03/28/2020 12/16/2020 documented in this encounter Miscellaneous Notes * Telephone Encounter - Cheryle Benton - 03/28/2020 1603 EST Per note on 12/28/2019: Patient is currently on levothyroxine 200 mcg daily 2. No change in dose documented in this encounter Plan of Treatment [...] End Da te levothyroxine (SYNTHROID) 200 mcg tablet Take 1 Tab by mouth daily. 12/05/2019 03/28/2020 documented as of this encounter Care Teams Cotton Buyer Relationship Specialty Start Date End Date Marva Hitchcock MD [address] [place] [phone] PCP - General 06/03/17 06/28/20 documented as of this encounter
--- OUTSIDE RECORDS SUMMARY | 2023-12-04 20:16 | XMS_ITS | Encounter Summary ---
Author Organization [facility] Address [address] [place] [address] Care Team Providers Care Security System Engineer Name Role Phone Marva Hitchcock MD Primary Care Provider Reason for Visit * Reason Onset Date Comments Chest Pain 05/27/2020 Abdominal Pain 05/27/2020 Encounter Details Date Type Department Care Team (Late st Contact Info) Description 05/27/2020 Telephone [facility] - [address] [phone] Marva Hitchcock MD [address] [place] [phone] Chest Pain; Abdominal Pain Social History Tobacco Use Types [...] * Telephone Encounter - Yazan Sanchez - 05/27/2020 1551 EDT Care and concern call made. Left message for the patient to call our office if still symptomatic orhas any question/concerns. YAZAN SANCHEZ 05/27/2020 15:52 documented in this encounter Plan of Treatment Not on file documented as of this encounter Goals Goal Patient Goal Type Associated Problems Recent Progress Patient-Stated? Author Weight Loss General Obesity, Class III, BMI 40-49.9 (morbid obesity) No Marva Hitchcock Note: Increased activity getting out doors with daughter documented as of this encounter Visit Diagnoses Not on filedocumented in this encounter Care Teams Security System Engineer Relationship Specialty Start Date End Date Marva Hitchcock MD [address] [place] [phone] PCP - General 06/03/17 06/28/20 documented as of this encounter
--- OUTSIDE RECORDS SUMMARY | 2023-12-04 20:16 | XMS_ITS | Encounter Summary ---
Author Organization [facility] Address [address] [place] [address] Care Team Providers Care Employment Coach Name Role Phone Marva Hitchcock MD Primary Care Provider [phone] Reason for Visit * Reason Comments Telemedicine Video Visit Cyst Encounter Details Date Type Department Care Team (Late st Contact Info) Description 07/17/2019 15:00 EDT Telemedicine [address] [address] Jessi Hayden MD [address] [place] [phone] Skin lesion (Primary Dx) Social History Tobacco Use Types [...] as of this encounter Progress Notes * Janna Cruz - 07/17/2019 1500 EDT The concept of ???Telemedicine?? has been [...] in patient???s medical or mental health care. .TELEMEDICINE VIDEO VISIT Today's visit was provided through telemedicine video conferencing: The location of the patient : Home The location of the provider: Clinic Exam Room The following staff and their role did participate in today's encounter visit: Janna Cruz * Jessi Hayden MD - 07/17/2019 1500 EDT Progress Note Patient ID: Tiny Cline is a 23 y.o. female Date of Service: 07/17/2019 Reason for Visit: Telemedicine Video Visit and Cyst Subjective: Pt being seen because something is starting to form underneath my stomach. First noticed it aboutthree days ago. First thought it was a pimple, but it was very large. Then she noticed it was painful. Tried popping it 1-2 days ago but no fluid was expressed. Since then the pain has only gotten worse. Feels like everything irritates it. She has been icing it. Area is very red. Inbetween two skin folds. Feels soft. Painful all the time. Feels well otherwise, no fevers/chills. ROS: ROS negative except for those noted in HPI History: Past Medical History: Diagnosis Date ??? ADD (attention deficit disorder) ??? Asthma, exercise induced ??? Autoimmune disorder (HCC-CMS) Grave's disease ??? Depression was taking meds (can't remember what), stopped in 07/2016, no counselor ??? Herpes simplex virus (HSV) infection ??? Mood disorder (HCC-CMS) ??? Thyroid disease Social History: Social History Tobacco Use ??? Smoking status: [...] since dating ultrasound ??? Drug use: No Medications: Current Outpatient Medications: albuterol 90 mcg/actuation inhaler atomoxetine (STRATTERA) 40 mg capsule atomoxetine (STRATTERA) 80 mg capsule levothyroxine (SYNTHROID) 175 mcg tablet valACYclovir (VALTREX) 500 mg tablet No current facility-administered medications for this visit. Objective: VS: currently . Physical Exam: General: Sitting comfortably in chair, alert, cooperative, pleasant. HEENT: Normocephalic, atraumatic. PERRL. EOMI. CV: Appears well perfused. Pulm: No increased respiratory effort. Extremities: Moves all 4 extremities Skin: about 1-2 cm erythematous area between two skin folds on abdomen with a raised erythematous papule in the center. Assessment/Plan: Tiny Cline is a 23 y.o. female who presents today for an acute skin lesion for the past four days. It is difficult to fully assess on video, but could be infectious or dermatologic in origin. Will be best if it can be assessed in person for possible treatment vs biopsy. Pt amenable to come inASAP for in person evaluation. Diagnoses and all orders for this visit: Skin lesion Patient seen and discussed with Dr. Andrae HAYDEN MD 07/17/2019 16:11, PGY-1 The concept of ???Telemedicine?? has been described [...] role did participate in today's encounter visit: MD Dr. Andrae THOMPSON * Monico Abebe MD - 07/17/2019 1500 EDT Attestation statement for office patient seen by attending: I saw the patient over video on the dayof this service and agree with the findings and plan of care documented in the resident's/fellow's note. Monico Abebe MD Family Medicine Attending 07/18/2019 10:16 documented in this encounter Plan of Treatment Not on file documented as of this encounter Goals Goal Patient Goal Type Associated Problems Recent Progress Patient-Stated? Author Weight Loss General Obesity, Class III, BMI 40-49.9 (morbid obesity) No Marva Hitchcock Note: Increased activity getting out doors with daughter documented as of this encounter Visit Diagnoses Diagnosis Skin lesion- Primary Unspecified disorder of skin and subcutaneous tissue documented in this encounter Care Teams Employment Coach Relationship Specialty Start Date End Date Marva Hitchcock MD [address] [place] [phone] PCP - General 06/03/17 06/28/20 documented as of this encounter
--- OUTSIDE RECORDS SUMMARY | 2023-12-04 20:16 | XMS_ITS | Encounter Summary ---
Author Organization [facility] Address [address] [place] [address] Care Team Providers Care Clip And Hanger Attacher Name Role Phone Marva Hitchcock MD Primary Care Provider Reason for Visit * Reason Onset Date Comments Appointment Related 06/02/2019 Encounter Details Date Type Department Care Team (Late st Contact Info) Description 06/02/2019 Telephone [facility] - [facility] - Acute Res[facility] Clinic Primary Care [address] [place], [place] [phone] Marva Hitchcock MD [address] [place] [address] [phone] Appointment Related Social History Tobacco Use Types [...] encounter Miscellaneous Notes * Telephone Encounter - Keesha Valencia - 06/02/2019 1140 EDT Attempted to call patient, phone has calling restrictions call will not go through. Tiny is a 23yo F w a PMH of hypothyroidism, depression, asthma, obesity and ADD presenting for ADD follow up. She was last seen one month ago, and started on strattera 40mg, w plan to increase to 80mg. ?? Unfortunately, unable to reach her for this telephone encounter. The number you have dialed has calling restrictions that has prevented the completion of this call, tried calling x3. Routed to scheduling to attempt to reschedule pt. ?? This encounter was created in error - please disregard. documented in this encounter Plan of Treatment Not on file documented as of this encounter Goals Goal Patient Goal Type Associated Problems Recent Progress Patient-Stated? Author Weight Loss General Obesity, Class III, BMI 40-49.9 (morbid obesity) No Marva Hitchcock Note: Increased activity getting out doors with daughter documented as of this encounter Visit Diagnoses Not on filedocumented in this encounter Care Teams Clip And Hanger Attacher Relationship Specialty Start Date End Date Marva Hitchcock MD [address] [place] [address] [phone] PCP - General 06/03/17 06/28/20 documented as of this encounter
--- OUTSIDE RECORDS SUMMARY | 2023-12-04 20:16 | XMS_ITS | Encounter Summary ---
Author Organization [facility] Address [address] [place] [address] Care Team Providers Care Die Lay Out Worker Name Role Phone EulaDanyel Primary Care Provider + Reason for Visit * Reason Onset Date Comments Results 12/13/2020 Encounter Details Date Type Department Care Team (Late st Contact Info) Description 12/13/2020 Telephone [facility] Endocrinology - [facility] [address] [place] [address] Carlos Nuñez DO [address] [facility] [address] [place] [address] Results Social History Tobacco Use Types Packs/Day [...] encounter Miscellaneous Notes * Telephone Encounter - Amelia Melendez - 12/13/2020 1421 EDT Patient had blood drawn on 12/04 and wondering if we got the results yet. Patient had them done in [facility]. Patient needs this info to determine next refill info. Please call back discuss. documented in this encounter Plan of Treatment Not on file documented as of this encounter Goals Goal Patient Goal Type Associated Problems Recent Progress Patient-Stated? Author Weight Loss General Obesity, Class III, BMI 40-49.9 (morbid obesity) No Marva Hitchcock Note: Increased activity getting out doors with daughter documented as of this encounter Visit Diagnoses Not on filedocumented in this encounter Care Teams Die Lay Out Worker Relationship Specialty Start Date End Date Danyel Forde DO PCP - General Family Medicine - Primary Care 08/29/20 04/11/21 documented as of this encounter
--- OUTSIDE RECORDS SUMMARY | 2023-12-04 20:16 | XMS_ITS | Encounter Summary ---
Author Organization [facility] Address [address] [place] [address] Care Team Providers Care Memory Care Program Director Name Role Phone Marva Hitchcock MD Primary Care Provider [phone] Reason for Visit * Reason Onset Date Comments Pharmacy 12/04/2019 Medication Management 12/05/2019 Medications Refill 12/05/2019 Encounter Details Date Type Department Care Team (Late st Contact Info) Description 12/04/2019 Telephone [facility] - [facility] [address] [place] [address] Carlos Nuñez, DO [address] [facility] [address] [place] [address] Pharmacy; Medication Management; Medications Refill Social History Tobacco Use Types [...] 1 Tab by mouth daily. 90 Tab 12/05/2019 03/28/2020 documented in this encounter Miscellaneous Notes * Telephone Encounter - Cee Joshua - 12/06/2019 1102 EDT lvm for patient to call our office to schedule an appointment with Dr. Nuñez * Telephone Encounter - Pema Cordoba RN - 12/05/2019 1710 EDT Patient last seen : 12/24/2016. Lab Results Component Value Date TSH 11.80 (H) 09/13/2019 This lab result had been addressed by increasing Levothyroxine from 175 mcg daily to 200 mcg daily. A new script for Levothyroxine 25 mcg tablet had been prescribed to the patient. It is unclear why the scripts were sent as 25 mcg and 175 mcg instead of 200 mcg daily. This travel writer sent a script with 90 days supply with no refill. Encounter will be routed to [facility] to schedule this patient. Most recent TSH was found in SCANS : 0.78 PEMA DRISCOLL RN 12/05/2019 17:38 * Telephone Encounter - Mary Fajardo - 12/05/2019 1614 EDT Patient is calling to get their medication, levothyroxine, refilled because they are out of their medication. Patient is looking to get 200 mg rather than two separate pills of 175 mg and 25 mg. Please call to discuss and refill. * Telephone Encounter - Angelina Noe - 12/05/2019 1529 EDT Patient also calling regarding the levothyroxine, states that she is taking 2 pills 175 mcg and 25 mcg to make 200 mcg, she is wondering if she can get a script for just 1 200 mcg pill so she doesn'thave to deal with ordering 2 different meds. Please call patient back to discuss. * Telephone Encounter - Paresh Bales - 12/04/2019 1051 EDT Pharmacy is calling with a question about patient's levothyroxine RX. Please call back. documented in this encounter Plan of Treatment [...] Start Date End Da te levothyroxine (SYNTHROID) 175 mcg tablet Take 1 Tab by mouth daily. Alternate therapy 11/17/2019 12/05/2019 levothyroxine (SYNTHROID) 25 mcg tablet Take 1 Tab by mouth daily. Take one tablet daily with 1 tablet of Levothyroxine 175 mcg for a daily total of 200 mcg. Alternate therapy 09/18/2019 12/05/2019 documented as of this encounter Care Teams Memory Care Program Director Relationship Specialty Start Date End Date Marva Hitchcock MD [address] [place] [phone] PCP - General 06/03/17 06/28/20 documented as of this encounter
--- OUTSIDE RECORDS SUMMARY | 2023-12-04 20:16 | XMS_ITS | Encounter Summary ---
Author Organization [facility] Address [address] [place] [address] Care Team Providers Care Muskrat Trapper Name Role Phone Marva Hitchcock MD Primary Care Provider Reason for Visit * Reason Onset Date Comments Medications Refill 03/15/2020 Encounter Details Date Type Department Care Team (Late st Contact Info) Description 03/15/2020 Refill [facility] Primary Care [facility] - [address] [phone] Loli Valdivia, REFRIGERATED NATIONAL TRUCK DRIVER [address] [facility] [address] [place] [phone] Medications Refill Social History Tobacco Use Types [...] TWICE A DAY 10 Tab 1 03/15/2020 documented in this encounter Miscellaneous Notes * Telephone Encounter - Harrison Cespedes RN - 03/15/2020 1038 EST Medication(s) Requested: Valtrex 500 mg on 12/09/19 for 10 with 1 refill Preferred Pharmacy: [facility] Is patient out of medication? Unknown Last Refill Date: See above Last Visit Date with Ordering Provider: 11/09/19 Next Non-Acute Visit Date Scheduled with Care Team: No. HARRISON CHA RN 03/15/2020 10:39 * Telephone Encounter - Harrison Cespedes RN - 03/15/2020 1038 ESTFrom: Tiny Cline To: Office of Loli Valdivia APRN Sent: 03/15/2020 8:49 EST Subject: Medication Renewal Request Refills have been requested for the following medications: valACYclovir (VALTREX) 500 mg tablet [Loli Valdivia APRN] Preferred pharmacy: [facility] [address] [place], [place] - [address] [place] [address] documented in this encounter Plan of Treatment [...] TABLET BY MOUTH TWICE A DAY Reorder 12/09/2019 03/15/2020 documented as of this encounter Care Teams Muskrat Trapper Relationship Specialty Start Date End Date Marva Hitchcock MD [address] [place] [phone] PCP - General 06/03/17 06/28/20 documented as of this encounter
--- OUTSIDE RECORDS SUMMARY | 2023-12-04 20:16 | XMS_ITS | Encounter Summary ---
Author Organization [facility] Address [address] [place] [address] Care Team Providers Care Technical Account Representative Name Role Phone Eula Danyel Primary Care Provider + Reason for Visit * Reason Onset Date Comments Orders (Non Pre-visit) 12/19/2020 Encounter Details Date Type Department Care Team (Late st Contact Info) Description 12/19/2020 Telephone [facility] - [facility] [address] [place] [address] Grazyna Franco DO [address] [facility] [address] [place] [phone] Orders (Non Pre-visit) Social History Tobacco [...] Telephone Encounter - Diana Dewitt RN - 12/23/2020 0857 EDT Called lab. Pt did not have labs drawn at [facility], had them drawn at [facility]. Lab orders sent there. Diana Dewitt RN Endocrinology * Telephone Encounter - Amelia Melendez - 12/19/2020 1441 EDT Leticia calling back as she still has not gotten the orders faxed to her at [phone] for the T4 Free and TSH. Please send igor. * Telephone Encounter - Amelia Melendez - 12/19/2020 1245 EDT Leticia calling from Lab, due to billing purposes they need the order (T4 Free and TSH), from Dr. Franco faxed to them at [phone]. They are hoping to get that today. Please call back with any questions. documented in this encounter Plan of Treatment Not on file documented as of this encounter Goals Goal Patient Goal Type Associated Problems Recent Progress Patient-Stated? Author Weight Loss General Obesity, Class III, BMI 40-49.9 (morbid obesity) No Marva Hitchcock Note: Increased activity getting out doors with daughter documented as of this encounter Visit Diagnoses Not on filedocumented in this encounter Care Teams Technical Account Representative Relationship Specialty Start Date End Date Danyel Forde DO PCP - General Family Medicine - Primary Care 08/29/20 04/11/21 documented as of this encounter
--- OUTSIDE RECORDS SUMMARY | 2023-12-04 20:16 | XMS_ITS | Encounter Summary ---
Author Organization [facility] Address [address] [place] [address] Care Team Providers Care Toll Test Worker Name Role Phone Camilla Jiang MD Primary Care Provider [phone] Danyel Forde DO Primary Care Provider + Danyel Forde DO Primary Care Provider + Ayla Solomon DO Primary Care Provider [phone] Encounter Details Date Type Department Care Team (Late st Contact Info) Description 08/16/2020 Lab Requisition [facility] Pathology & Laboratory Medicine - [place] [address] [place] [address] Taylor Gutierrez NP [address] [place], [place] [phone] Encounter for general adult medical examination without abnormal findings; Encounter for screening for malignant neoplasm of cervix Social History Tobacco Use Types Packs/Day Years [...] Procedure Name Priority Date/Time Associated Diagnosis Comments PAP TEST Today 08/14/2020 13:45 EDT Encounter for general adult medical examination without abnormal findings Encounter for screening for malignant neoplasm of cervix documented in this encounter Results * PAP TEST (08/14/2020 13:45 EDT) Specimens A. Cervix and/or Endocervix , ThinPrep Imaging System with Manual Evaluation 08/26/2020 12:[address] [facility] Specimen Adequacy Satisfactory for Evaluation - transformation zone component present 08/26/2020 12:[address] [facility] General Categorization Negative for intraepithelial lesion or malignancy 08/26/2020 12:[address] [facility] Attestation . 08/26/2020 12:[address] [facility] at 1220 Clinical History See below 08/27/19 12:[address] [facility] Performing Lab [facility] 08/26/2020 12:[address] [facility] Scanned Images 08/26/2020 12:[address] [facility] Papanicolaou smear specimen (specimen) CERVIX UTERI STRUCTURE / Unknown 08/14/2020 13:45 EDT 08/16/2020 16:07 EDT Tayolr Gutierrez NP PATHOLOGY ORDERABLES [facility] [address] [place] [address] documented in this encounter Visit Diagnoses Diagnosis Encounter for general adult medical examination without abnormal findings Unspecified general medical examination Encounter for screening for malignant neoplasm of cervix Screening for malignant neoplasm of the cervix documented in this encounter Additional Health Concerns Infection Onset Date Last Indicated Resolved Time COVID-19 07/14/2021 07/14/2021 07/25/2021 22:1 6 EDT documented as of this encounter Care Teams Toll Test Worker Relationship Specialty Start Date End Date Camilla Jiang MD [address] [place] [phone] PCP - General Family Medicine - Primary Care 08/02/20 08/27/20 Danyel Forde DO [address] [place] [phone] PCP - General Family Medicine - Primary Care 08/29/20 04/11/21 Danyel Forde DO [address] [place] [phone] PCP - General 08/28/20 08/28/20 Ayla Solomon DO [address] [place] [place] [phone] PCP - General General Surgery 04/12/21 documented as of this encounter
--- OUTSIDE RECORDS SUMMARY | 2023-12-04 20:16 | XMS_ITS | Encounter Summary ---
Author Organization [facility] Address [address] [place] [address] Care Team Providers Care Wood Flour Miller Name Role Phone Marva Hitchcock MD Primary Care Provider Reason for Visit * Reason Onset Date Comments Results 09/18/2019 Encounter Details Date Type Department Care Team (Late st Contact Info) Description 09/18/2019 Telephone [facility] Endocrinology - [address] [phone] Diana Dewitt RN Results Social History Tobacco Use Types Packs/Day [...] End Da te levothyroxine (SYNTHROID) 25 mcg tablet Take 1 Tab by mouth daily. Take one tablet daily with 1 tablet of Levothyroxine 175 mcg for a daily total of 200 mcg. 30 Tab 3 09/18/2019 12/05/2019 documented in this encounter Miscellaneous Notes * Telephone Encounter - Diana Dewitt RN - 09/18/2019 1250 EDT Called pt and left Dr. Nuñez's message: Can you contact pt and have her increase to 200 mcg daily with repeat tSH and free t4 in 6 weeks Placed order for 25 mcg of Levothyroxine (to take with pt current dose of 175 mcg), and ordered labs to be drawn in [place] at [facility]. Diana Dewitt RN Endocrinology documented in this encounter Plan of Treatment [...] hypothyroidism documented in this encounter Care Teams Wood Flour Miller Relationship Specialty Start Date End Date Marva Hitchcock MD [address] [place] [phone] PCP - General 06/03/17 06/28/20 documented as of this encounter
--- OUTSIDE RECORDS SUMMARY | 2023-12-04 20:16 | XMS_ITS | Encounter Summary ---
Author Organization [facility] Address [address] [place] [address] Care Team Providers Care Director Consumer Name Role Phone Danyel Fored DO Primary Care Provider + Ayla Solomon DO Primary Care Provider [phone] Encounter Details Date Type Department Care Team (Late st Contact Info) Description 01/27/2021 Lab Requisition [facility] Pathology & Laboratory Medicine - [facility] [address] [place] [address] Outr Resulting Lab, Provider Social History Tobacco [...] 1/2 ANTIGEN AND ANTIBODY, 4TH GENERATION Routine 01/27/2021 15:43 EST documented in this encounter Results * HIV 1/2 ANTIGEN AND ANTIBODY, 4TH GENERATION (01/27/2021 15:43 EST) HIV 1 and 2 Antibody/p24 Antigen, 4th Generation Negative Negative 01/28/2021 11:00 EST [facility] Comment:If acute HIV-1 infec tion is suspected in a high risk patient, submit plasma specimen for HIV-1 RNA quantitation test. Blood VENOUS BLOOD / Unknown 01/27/2021 15:43 EST 01/27/2021 21:00 EST Narrative [facility] - 01/28/2021 11:00 EST Fourth Generation assay performed on the Siemens Centaur XPT. Provider Outr Resulting Lab IMMUNOLOGY A ND SEROLOGY ORDERABLES [facility] [address] [place] [address] documented in this encounter Visit Diagnoses Not on filedocumented in this encounter Additional Health Concerns Infection Onset Date Last Indicated Resolved Time COVID-19 07/14/2021 07/14/2021 07/25/2021 22:1 6 EDT documented as of this encounter Care Teams Director Consumer Relationship Specialty Start Date End Date Danyel Forde DO PCP - General Family Medicine - Primary Care 08/29/20 04/11/21 Ayla Solomon DO [facility] [address] [place] [address] PCP - General General Surgery 04/12/21 documented as of this encounter
--- OUTSIDE RECORDS SUMMARY | 2023-12-04 20:16 | XMS_ITS | Encounter Summary ---
Author Organization [facility] Address [address] [place] [address] Care Team Providers Care Crt Name Role Phone Marva Hitchcock MD Primary Care Provider Reason for Visit * Reason Comments Thyroid Problem Graves' Disease Encounter Details Date Type Department Care Team (Latest Contact Info) Description 12/28/2019 9:00 EDT Telemedicine [facility] End[facility]inology - [facility] [address] [place] [address] Carlos Nuñez, [address] [facility] [address] [place] [phone] Hypothyroidism, postablative (Primary Dx); Graves' disease Social History Tobacco Use Types Packs/Day Years [...] as of this encounter Progress Notes * Carlos Nuñez, - 12/28/2019 0900 EDT TELEMEDICINE CONSENT The concept of ???Telemedicine?? 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 Patient is currently on levothyroxine 200 mcg daily. She takes this medication first thing in morning on an empty stomach. She reports her energy level is stable. She has been having some trouble losing weight. Her mood is been stable. No changes in her bowels. Notes some occasional temperature intolerance. Denies palpitations, resting tremors. Notes some occasional difficulty sleeping. She has had no change in vision or change in her eye appearance. PAST MEDICAL HISTORY: Reviewed as documented in electronic medical record. MEDICATIONS: Reviewed as documented in electronic medical record. ALLERGIES: Reviewed as documented in electronic medical record. OBJECTIVE: The patient's visit today was conducted via telemedicine. Therefore, patient was not examined. On advice from the Centers for Disease Control and The [place] Department of Health we are practicing social distancing to protect both our patients and our providers during the COVID-19 pandemic. LABORATORY DATA: 1. Most recent thyroid function test obtained on 11/07/2019 showed a TSH of 0.78 and free T4 1.59 ASSESSMENT: Ms Tiny Cline is a pleasant 24-year-old female with post- ablative hypothyroidism secondary to treatment with 10 mCi of I-131 for hyperthyroidism secondary to Graves' disease on 10/05/2012. The patient transitioned to the hypothyroid state in 11/2012. PLAN: 1. Call with questions or concerns 2. No change in dose 3. Repeat blood work in 1 year prior to follow-up appointment including TSH and free T4 4. Call if you become documented in this encounter Plan of Treatment Not on file documented as of this encounter Goals Goal Patient Goal Type Associated Problems Recent Progress Patient-Stated? Author Weight Loss General Obesity, Class III, BMI 40-49.9 (morbid obesity) No Marva Hitchcock Note: Increased activity getting out doors with daughter documented as of this encounter Visit Diagnoses Diagnosis Hypothyroidism, postablative- Primary Other postablative hypothyroidism Graves' disease Toxic diffuse goiter without mention of thyrotoxic crisis or storm documented in this encounter Care Teams Crt Relationship Specialty Start Date End Date Marva Hitchcock MD [address] [place] [phone] PCP - General 06/03/17 06/28/20 documented as of this encounter
--- OUTSIDE RECORDS SUMMARY | 2023-12-04 20:16 | XMS_ITS | Encounter Summary ---
Author Organization [facility] Address [address] [place] [address] Care Team Providers Care Comb Fixer Name Role Phone EulaDanyel Primary Care Provider + Reason for Visit * Reason Onset Date Comments Medication Management 12/13/2020 Medication Management 12/16/2020 Encounter Details Date Type Department Care Team (Late st Contact Info) Description 12/13/2020 Telephone [facility] Endocrinology - [facility] [address] [place] [address] Carlos Nuñez DO [address] [facility] [address] [place] [address] Medication Management; Medication Management Social History Tobacco Use Types [...] daily. 90 Tablet 3 12/16/2020 02/16/2022 documented in this encounter Miscellaneous Notes * Telephone Encounter - Diana Dewitt RN - 01/02/2021 1439 EDT Called [facility] lab and requested lab results. Diana Dewitt RN Endocrinology * Telephone Encounter - Diana Dewitt RN - 12/17/2020 1407 EDT Called pt and left the following messages: We typically do not see need to see these patients in person. Most of my patients were did not come in to see this provider as we are checking blood work every 4 weeks and making adjustments. Recheck blood work every 4 weeks until the 30th week of Pt to call office when labs done so we can get results reviewed quickly. Diana Dewitt RN Endocrinology * Telephone Encounter - Carlos Nuñez DO - 12/17/2020 1201 EDT We typically do not see need to see these patients in person. Most of my patients were didnot come in to see this provider as we are checking blood work every 4 weeks and making adjustments. * Telephone Encounter - Carlos Nuñez DO - 12/17/2020 1201 EDT Recheck blood work every 4 weeks until the 30th week of * Telephone Encounter - Pema Cordoba RN - 12/16/2020 1653 EDT Calling patient 12/16/20 16:[address] Nuñez's message below copied : Please contact patient via phone. I reviewed her most recent thyroid function test. We need to increase her thyroid medication in the setting of . I would like to increase her levothyroxineto 250 mcg daily. She will need to take a 200 mcg tablet and a 50 mcg tablet. Please set up standing orders for TSH and free T4 every 4 weeks at her local hospital. She should hear from my office with in 2 to 3 days after having labs drawn. If she does not hear from the office she is to contact the office so that we make sure we have her labs and hands we can make further adjustments. We will be checking her blood levels every 4 weeks until approximately the 30th week of . Goal TSH is less than 2.5 for the first trimester and then less than 3 for the second and third trimester Unable to reach patient. Left detailed message on voicemail re : patient's full name on it. Patient informed that the same message will be sent to her via [employer]. Patient instructed to call back to confirm current dose. Calling patient's mother 12/16/20 16:[address] Nuñez's message above copied. Per mother, patient is currently taking 200 mcg PO daily. Per mother, whatever is on the chart, is what she is taking. Mother informed that the current active script is Levothyroxine 200 mcg PO daily. Per mother, the labs had already been addressed. Lab requisitions had been faxed to the [facility]. One thing she wanted to confirm is the frequency. Dr. Nuñez is asking for lab draws every four (4) weeks until the 30th week of , but the previous labs were different. This sports book writer reviewed previous lab requisition and it states the following : Every 4 weeks for first trimester, every 2 weeks for second trimester, and every 4 weeks for thirdtrimester. Mother asking if patient could be seen sooner than 05/15/2021. Per mother, they had requested this at previous telephone encounter. PEMA DRISCOLL RN 12/16/2020 17:13 * Telephone Encounter - Carlos Nuñez DO - 12/16/2020 1623 EDT Please contact patient via phone. I reviewed her most recent thyroid function test. We need to increase her thyroid medication in the setting of . I would like to increase her levothyroxine to 250 mcg daily. She will need to take a 200 mcg tablet and a 50 mcg tablet. Please set up standingorders for TSH and free T4 every 4 weeks at her local hospital. She should hear from my office within 2 to 3 days after having labs drawn. If she does not hear from the office she is to contact the office so that we make sure we have her labs and hands we can make further adjustments. We will be checking her blood levels every 4 weeks until approximately the 30th week of . Goal TSH is less than 2.5 for the first trimester and then less than 3 for the second and third trimester * Telephone Encounter - Ashley Richmond - 12/16/2020 1311 EDT Patient's mother calling back to obtain lab results and talk about possible medication adjustments.She will ask [facility] to re-send lab results via fax. Lighting Engineering Technician provided fax #. Please call her with any medication adjustments as soon as possible. * Telephone Encounter - Diana Dewitt RN - 12/16/[address] Nuñez writes: I need patient's lab results as soon as possible. She may have had it at [facility] or at her BINDING STITCHER's office. Please track these down HAZEL so that I can contact patient on Wednesday with any dose changes. Call placed to [facility] lab. Labs being faxed over. Verbal results are as follows: TSH: 5.89 With a reference range of .36-3.74 Free T4: 1.24 Reference range .76-1.46 Diana Dewitt RN Endocrinology * Telephone Encounter - Carlos Nuñez DO - 12/15/2020 1454 EDT I need patient's lab results as soon as possible. She may have had it at [facility] or at her BINDING STITCHER's office. Please track these down HAZEL so that I can contact patient on Wednesday with any dose changes. * Telephone Encounter - Paresh Bales - 12/13/2020 1644 EDT Patient is and has hypothyroidism. Her mother Gricelda is calling to ask if patient's medication needs to be changed based on recent test results. Lighting Engineering Technician was unable to reach nurse. Please call back. documented in this encounter [...] tablet Take 1 Tab by mouth daily. Reorder 03/28/2020 12/16/2020 documented as of this encounter Care Teams Comb Fixer Relationship Specialty Start Date End Date Danyel Forde DO PCP - General Family Medicine - Primary Care 08/29/20 04/11/21 documented as of this encounter
--- OUTSIDE RECORDS SUMMARY | 2023-12-04 20:16 | XMS_ITS | Encounter Summary ---
Author Organization [facility] Address [address] [place] [address] Care Team Providers Care Material Reprocessing Associate Name Role Phone Marva Hitchcock MD Primary Care Provider Reason for Visit * Reason Onset Date Comments Appointment Related 06/02/2019 Encounter Details Date Type Department Care Team (Late st Contact Info) Description 06/02/[address] [id number] Marva Hitchcock MD [address] [place] [address] [phone] Appointment Related Social History Tobacco Use Types [...] encounter Miscellaneous Notes * Telephone Encounter - Tracey Masters - 06/02/2019 1056 EDT ----- Message from Silva Mckee MD sent at 06/02/2019 10:49 EDT ----- Unable to reach patient via phone number listed. If she calls back we can schedule her for a later appt today. Thanks! documented in this encounter Plan of Treatment Not on file documented as of this encounter Goals Goal Patient Goal Type Associated Problems Recent Progress Patient-Stated? Author Weight Loss General Obesity, Class III, BMI 40-49.9 (morbid obesity) No Marva Hitchcock Note: Increased activity getting out doors with daughter documented as of this encounter Visit Diagnoses Not on filedocumented in this encounter Care Teams Material Reprocessing Associate Relationship Specialty Start Date End Date Marva Hitchcock MD [address] [place] [phone] PCP - General 06/03/17 06/28/20 documented as of this encounter
--- OUTSIDE RECORDS SUMMARY | 2023-12-04 20:16 | XMS_ITS | Encounter Summary ---
Author Organization [facility] Address [address] [place] [address] Care Team Providers Care Assistant Clinical Nurse Manager Name Role Phone Marva Hitchcock MD Primary Care Provider Unknown, Provider Primary Care Provider [phone] Camilla Jiang MD Primary Care Provider Danyel Forde DO Primary Care Provider + Danyel Forde DO Primary Care Provider + Ayla Solomon DO Primary Care Provider [phone] Reason for Visit * Reason Onset Date Comments Medications Refill 03/27/2020 Encounter Details Date Type Department Care Team (Late st Contact Info) Description 03/27/2020 Refill [facility] Endocrinology - [facility] [address] [place] [address] Carlos Nuñez DO [address] [facility] [address] [place] [address] Medications Refill Social History Tobacco [...] documented as of this encounter Care Teams Assistant Clinical Nurse Manager Relationship Specialty Start Date End Date Marva Hitchcock MD [address] [place] [phone] PCP - General 06/03/17 06/28/20 Unknown, Provider, PCP - General 06/29/20 08/01/20 Camilla Jiang MD [address] [place] [phone] PCP - General Family Medicine - Primary Care 08/02/20 08/27/20 Danyel Forde DO [address] [place] [phone] PCP - General Family Medicine - Primary Care 08/29/20 04/11/21 Danyel Forde DO [address] [place] [phone] PCP - General 08/28/20 08/28/20 Ayla Solomon DO [facility] [address] Mcdaniel [address] [place] [address] [phone] PCP - General General Surgery 04/12/21 documented as of this encounter
--- OUTSIDE RECORDS SUMMARY | 2023-12-04 20:16 | XMS_ITS | Encounter Summary ---
Author Organization [facility] Address [address] [place] [address] Care Team Providers Care Fusing Machine Feeder Name Role Phone Marva Hitchcock MD Primary Care Provider Reason for Visit * Reason Onset Date Comments Abdominal Pain 06/10/2020 Encounter Details Date Type Department Care Team (Late st Contact Info) Description 06/10/[address] [phone] Marva Hitchcock MD [address] [place] [address] [phone] Abdominal Pain Social History Tobacco Use Types [...] * Telephone Encounter - Yazan Sanchez - 06/10/2020 1042 EDT Care and concern call made. Left message for the patient to call our office if still symptomatic orhas any question/concerns. YAZAN SANCHEZ 06/10/2020 10:42 documented in this encounter Plan of Treatment Not on file documented as of this encounter Goals Goal Patient Goal Type Associated Problems Recent Progress Patient-Stated? Author Weight Loss General Obesity, Class III, BMI 40-49.9 (morbid obesity) No Marva Hitchcock Note: Increased activity getting out doors with daughter documented as of this encounter Visit Diagnoses Not on filedocumented in this encounter Care Teams Fusing Machine Feeder Relationship Specialty Start Date End Date Marva Hitchcock MD [address] [place] [phone] PCP - General 06/03/17 06/28/20 documented as of this encounter
--- OUTSIDE RECORDS SUMMARY | 2023-12-04 20:16 | XMS_ITS | Encounter Summary ---
Author Organization [facility] Address [address] [place] [address] Care Team Providers Care Insurance Service Representative Name Role Phone Marva Hitchcock MD Primary Care Provider Reason for Visit * Reason Comments Skin Lesion On Belly Encounter Details Date Type Department Care Team (Late st Contact Info) Description 08/03/2019 13:30 EDT Procedure visit [address] [phone] Marva Hitchcock MD [address] [place] [address] [phone] Epidermoid cyst (Primary Dx) Social History Tobacco Use Types [...] Sign Reading Time Taken Comments Blood Pressure 118/76 08/03/2019 1329 EDT Pulse 72 08/03/2019 1329 EDT Temperature 36.5 ??C (97.7 ??F) 08/03/2019 1329 EDT Respiratory Rate - - Oxygen Saturation - - Inhaled Oxygen Concentration - - Weight 117.5 kg (259 lb) 08/03/2019 1329 EDT Height - - Body Mass Index 46.47 05/05/2019 1335 EST documented in this encounter Functional Status Functional [...] as of this encounter Progress Notes * Yazan Sanchez - 08/03/2019 1330 EDT Social Determinants of Health(SDOH): Respondent: Self Within the past 12 months, you worried that your food would run out before you got money to buy more: Never true Within the past 12 months, the food you bought just didn???t last and you didn???t have money to get more: Never true Hunger Vital Sign Result: Negative Screen for Food Insecurity Action taken as a result of food insecurity screen: What is your housing situation today?: I have housing Think about the place you live. Do you have problems with any of the following? (check all that apply): None of the above In the past 12 months has the electric, gas, oil, or water company threatened to shut off services in your home?: No In the past 12 months, has lack of transportation kept you from medical appointments, meetings, work or from getting things needed for daily living? (Check all that apply): No How often does anyone, including family, physically hurt you?: Never How often does anyone, including family, insult or talk down to you?: Rarely How often does anyone, including family, threaten you with harm?: Never How often does anyone, including family, scream or curse at you?: Never YAZAN SANCHEZ 08/03/2019 13:34 * Thea Santamaria MD - 08/03/2019 1330 EDT Subjective: Patient ID: Tiny Cline is an 23 y.o. female. Chief Complaint Patient presents with ??? Skin Lesion On Belly HPI Lesion on abdomen - Symptoms started weeks ago, noticed a painful and swollen bump on her stomach - She has trouble refraining from poking it - It didn't drain for a few weeks, however then it did drain some liquid and blood last week - It is less swollen and red than it was previously - Currently it is somewhat painful, but improved from previously - She has never had this happen before Patient Active Problem List Diagnosis ??? Acanthosis nigricans ??? Vitamin D deficiency ??? Status post radioactive iodine thyroid ablation ??? PCR DNA positive for HSV1 ??? Hypothyroidism, postablative ??? Closed fracture of nasal bone ??? Depression ??? Graves' disease ??? Autoimmune disorder ([facility]) ??? Asthma ??? Obesity, Class III, BMI 40-49.9 (morbid obesity) ([facility]) Past Medical History: Diagnosis Date ??? ADD (attention deficit disorder) ??? Asthma, exercise induced ??? Autoimmune disorder ([facility]) Grave's disease ??? Depression was taking meds (can't remember what), stopped in 07/2016, no counselor ??? Herpes simplex virus (HSV) infection ??? Mood disorder ([facility]) ??? Thyroid disease Current Outpatient Medications on File Prior to Visit Medication Sig Dispense Refill ??? albuterol 90 mcg/actuation inhaler Inhale 2 Puffs as directed every 4 hours as needed for Wheezing. 1 Inhaler 11 ??? atomoxetine (STRATTERA) 40 mg capsule Take 1 Cap by mouth daily. (Patient not taking: Reported on 08/03/2019) 4 Cap 0 ??? atomoxetine (STRATTERA) 80 mg capsule Take 1 Cap by mouth daily. 30 Cap 3 ??? levothyroxine (SYNTHROID) 175 mcg tablet Take 1 Tab by mouth daily. 90 Tab 3 ??? valACYclovir (VALTREX) 500 mg [...] since dating ultrasound ??? Drug use: No ROS - See HPI Objective: BP 118/76 (BP Cuff Location: Right arm, BP Patient Position: Sitting, BP Cuff Sizes: Adult, large) Pulse 72 Temp 36.5 ??C (97.7 ??F) (Skin) Wt (!) 117.5 kg (259 lb) BMI 46.47 kg/m?? Physical Exam Constitutional: She appears well-developed and well-nourished. No distress. Pulmonary/Chest: Effort normal. Neurological: She is alert. Skin: Skin is warm. She is not diaphoretic. Small palpable cyst (<1cm) in subcutaneous tissue in lower R abdomen. No active drainage or surrounding erythema. Vitals reviewed. Assessment: Tiny Cline is a 23 y.o. F presenting with several weeks of a small cyst on the lower abdomen.This is most consistent with an epidermoid cyst, which was likely previously infected but after active drainage does not seem to be infected currently. Epidermoid cyst was excised today. Plan: Tiny was seen today for skin lesion. Diagnoses and all orders for this visit: Epidermoid cyst - Excision performed today - see procedure note; Return for nurse visit in 10- 14d for suture removal. Thea Santamaria MD Family Medicine PGY-3 Pg #: [id number] Attestation statement: I saw and examined the patient with the resident/fellow. I agree with the findings and plan of care documented in the resident's/fellow's note. Marva Hitchcock MD documented in this encounter Procedure Notes * Thea Santamaria MD - 08/03/2019 1330 EDT Excisional Biopsy Procedure Note: Pre-op diagnosis/Post-op diagnosis: Epidermoid cyst Surgeon: Thea Santamaria MD; Fiona Hitchcock MD Anesthesia: Lidocaine 1% with epinephrine. Any medication(s) used during the procedure was properlylabeled. Prep: Betadine Description: Patient was lying supine. After sterile prep, adequate anesthesia was obtained with a local infiltration using 4 mL of solution. The lesion was identified on the abdomen and an linear excision measuring ~10 mm was carried out using a 15 blade scalpel. Sharp dissection using the scalpeland scissors was used to free the epidermoid cyst sac and undermine the wound edges, in order for proper defect closure. Minimal bleeding was well-controlled with direct pressure. Buried sutures wereused to approximate the wound edges using 5-0 prolene, 4 simple sutures placed. Antibiotic ointmentand dry sterile dressing was applied. Final closure length of defect was 1.5cm. EBL: Minimal Specimens: 0 Instructions: wound healing as expected, suture removal in 10-14d Written consent obtained, all questions/concerns answered and addressed. Final verification completed and site marked prior to procedure. Done under sterile conditions unless otherwise noted. Any medication used during this procedure was labeled. Thea Santamaria MD I was present and participated in the entire procedure. Agree with note above. Marva Hitchcock MD documented in this encounter Plan of Treatment Not on file documented as of this encounter Goals Goal Patient Goal Type Associated Problems Recent Progress Patient-Stated? Author Weight Loss General Obesity, Class III, BMI 40-49.9 (morbid obesity) No Marva Hitchcock Note: Increased activity getting out doors with daughter documented as of this encounter Visit Diagnoses Diagnosis Epidermoid cyst- Primary Sebaceous cyst documented in this encounter Care Teams Insurance Service Representative Relationship Specialty Start Date End Date Marva Hitchcock MD [address] [place] [phone] PCP - General 06/03/17 06/28/20 documented as of this encounter
--- OUTSIDE RECORDS SUMMARY | 2023-12-04 20:16 | XMS_ITS | Encounter Summary ---
Author Organization [facility] Address [address] [place] [address] Care Team Providers Care Bar Porter Name Role Phone Marva Hitchcock MD Primary Care Provider Reason for Visit * Reason Onset Date Comments Labs Only 11/03/2019 Encounter Details Date Type Department Care Team (Late st Contact Info) Description 11/03/2019 Telephone [facility] Endocrinology - [facility] [address] [place] [address] Carlos Nuñez, 62 [facility] [address] [place] [phone] Labs Only Social History Tobacco Use Types Packs/Day Years Used Date Smoking Tobacco: Former Cigarettes 0.5 5 Smokeless Tobacco: Never Comments:quit prior to datin g ultrasound Alcohol Use Standard Drinks/Week Comments No 8 (1 standard drink = 0.6 oz pure alcohol) no drinking since dating ultrasound PHQ-2 Answer Date Recorded PHQ-2 Score 1 10/01/2019 Interpersonal Safety Answer Date Record ed Physically [...] encounter Miscellaneous Notes * Telephone Encounter - Evan Perez RN - 11/03/2019 1519 EDT Lab orders for TSH and Ft4 faxed to [facility] as requested. * Telephone Encounter - Paresh Bales - 11/03/2019 1513 EDT Leticia called from the lab at [facility]. They need the orders Dr. Nuñezput in for the patient. Leticia did not know what the orders are for, only that the patient calledto say she needs the orders put in by Dr. Nuñez. Please check to make sure we have the correct orders and fax to: [phone]. Please call Leticia with any questions. documented in this encounter [...] on filedocumented in this encounter Care Teams Bar Porter Relationship Specialty Start Date End Date Marva Hitchcock MD [address] [place] [phone] PCP - General 06/03/17 06/28/20 documented as of this encounter
--- OUTSIDE RECORDS SUMMARY | 2023-12-04 20:16 | XMS_ITS | Encounter Summary ---
Author Organization [facility] Address [address] [place] [address] Care Team Providers Care Unit Control Clerk Name Role Phone Marva Hitchcock MD Primary Care Provider Encounter Details Date Type Department Care Team (Latest Contact Info) Description 09/12/2019 Travel Social History Tobacco Use Types Packs/Day [...] on filedocumented in this encounter Care Teams Unit Control Clerk Relationship Specialty Start Date End Date Marva Hitchcock MD [address] [place] [phone] PCP - General 06/03/17 06/28/20 documented as of this encounter
--- OUTSIDE RECORDS SUMMARY | 2023-12-04 20:16 | XMS_ITS | Encounter Summary ---
Author Organization [facility] Address [address] [place] [address] Care Team Providers Care Mid Level Java Developer Name Role Phone EulaDanyel Primary Care Provider + Reason for Visit * Reason Onset Date Comments 12/05/2020 Labs Only 12/06/2020 Encounter Details Date Type Department Care Team (Late st Contact Info) Description 12/05/[address] [facility] Endocrinology - [facility] [address] [place] [address] Carlos Nuñez DO [address] [facility] [address] [place] [phone] ; Labs Only Social History Tobacco Use Types [...] encounter Miscellaneous Notes * Telephone Encounter - uLcrecia Yu RN - 12/17/2020 1537 EDT Competed in duplicate encounter, no need for further action at this time. Lucrecia Yu RN * Telephone Encounter - Chelsi Barnes - 12/06/2020 1358 EDT Patient's mother calling to state that her daughter called yesterday to convey that she just found out she is . Patient's mother was informed that she would need blood work done every 4 weeks, and wanted to make sure that was aware, so that the orders could be sent to [facility] in [place]. Patient's mother noted concern, as her daughter did not have an appt until April,and wanted to know if she would need to be seen sooner. Please call back to patient to advise, or if any questions or concerns. * Telephone Encounter - Raven Elmore - 12/05/2020 0935 EDT Patient reporting that she is currently . Patient would like labs placed to check her thyroid levels. documented in this encounter Plan of Treatment [...] iodine thyroid ablation- Primary Other postprocedural status Hypothyroidism, postablative Other postablative hypothyroidism documented in this encounter Care Teams Mid Level Java Developer Relationship Specialty Start Date End Date Danyel Forde DO PCP - General Family Medicine - Primary Care 08/29/20 04/11/21 documented as of this encounter
--- OUTSIDE RECORDS SUMMARY | 2023-12-04 20:16 | XMS_ITS | Encounter Summary ---
Author Organization [facility] Address [address] [place] [address] Care Team Providers Care Food Counselor Name Role Phone Marva Hitchcock MD Primary Care Provider Unknown, Provider Primary Care Provider Camilla Jiang MD Primary Care Provider [phone] Danyel Forde DO Primary Care Provider + Danyel Forde DO Primary Care Provider + Ayla Solomon DO Primary Care Provider [phone] Encounter Details Date Type Department Care Team (Late st Contact Info) Description 06/14/2020 Lab Requisition [facility] Pathology & Laboratory Medicine - [facility] [address] [place] [address] Outr Resulting Lab, Provider Social History Tobacco [...] Procedure Name Priority Date/Time Associated Diagnosis Comments LYME AB Routine 06/14/2020 9:06 EDT documented in this encounter Results * LYME AB (06/14/2020 9:06 EDT) Lyme Ab Negative Negative 06/17/2020 11:37 EDT [facility] Comment:New 3rd generation a ssay in use 08/09/2019 Blood VENOUS BLOOD / Unknown 06/14/2020 9:06 EDT 06/14/2020 16:11 EDT Provider Outr Resulting Lab IMMUNOLOGY A ND SEROLOGY ORDERABLES [facility] [address] [place] [address] documented in this encounter Visit Diagnoses Not on filedocumented in this encounter Additional Health Concerns Infection Onset Date Last Indicated Resolved Time COVID-19 07/14/2021 07/14/2021 07/25/2021 22:1 6 EDT documented as of this encounter Care Teams Food Counselor Relationship Specialty Start Date End Date Marva Hitchcock MD [address] [place] [phone] PCP - General 06/03/17 06/28/20 Unknown, Provider, PCP - General 06/29/20 08/01/20 Camilla Jiang MD [address] [place] [phone] PCP - General Family Medicine - Primary Care 08/02/20 08/27/20 Danyel Forde DO [address] [place] [phone] PCP - General Family Medicine - Primary Care 08/29/20 04/11/21 Danyel Forde DO [address] [place] [phone] PCP - General 08/28/20 08/28/20 Ayla Solomon DO [facility] [facility] [address] Mcdaniel [address] [place] [phone] PCP - General General Surgery 04/12/21 documented as of this encounter
--- OUTSIDE RECORDS SUMMARY | 2023-12-04 20:16 | XMS_ITS | Encounter Summary ---
Author Organization [facility] Address [address] [place] [address] Care Team Providers Care Supervisor Fur Floor Worker Name Role Phone Marva Hitchcock MD Primary Care Provider [phone] Unknown, Provider Primary Care Provider Camilla Jiang MD Primary Care Provider [phone] Danyel Forde DO Primary Care Provider + Danyel Forde DO Primary Care Provider + Ayla Solomon DO Primary Care Provider [phone] Encounter Details Date Type Department Care Team (Late st Contact Info) Description 06/14/2020 Lab Requisition [facility] Pathology & Laboratory Medicine - [facility] [address] [place] [address] Outr Resulting Lab, Provider Social History Tobacco [...] Procedure Name Priority Date/Time Associated Diagnosis Comments ACUTE HEPATITIS PROFILE Routine 06/14/2020 9:06 EDT documented in this encounter Results * ACUTE HEPATITIS PROFILE (06/14/2020 9:06 EDT) Hep B Surface Ag Negative Negative 06/17/2020 10:27 EDT [facility] Hep C Antibody Negative Negative 06/17/2020 10:27 EDT [facility] Hepatitis A Antibody, IgM Negative Negative 06/17/2020 10:27 EDT [facility] Comment:The results of this assay can be falsely lowered due to the consumption of Biotin. Hepatitis B Core Ab, Total Negative Negative 06/17/2020 10:27 EDT [facility] Blood VENOUS BLOOD / Unknown 06/14/2020 9:06 EDT 06/14/2020 16:11 EDT Provider Outr Resulting Lab CHEMISTRY & BLOOD GAS ORDERABLES [facility] [address] [place] [address] documented in this encounter Visit Diagnoses Not on filedocumented in this encounter Additional Health Concerns Infection Onset Date Last Indicated Resolved Time COVID-19 07/14/2021 07/14/2021 07/25/2021 22:1 6 EDT documented as of this encounter Care Teams Supervisor Fur Floor Worker Relationship Specialty Start Date End Date Marva Hitchcock MD [address] [place] [phone] PCP - General 06/03/17 06/28/20 Unknown, MD Misha PCP - General 06/29/20 08/01/20 Camilla Jiang MD [address] [place] [phone] PCP - General Family Medicine - Primary Care 08/02/20 08/27/20 Danyel Forde DO [address] [place] [phone] PCP - General Family Medicine - Primary Care 08/29/20 04/11/21 Danyel Forde DO [address] [place] [phone] PCP - General 08/28/20 08/28/20 Ayla Solomon DO [address] [facility] [address] [place] [address] PCP - General General Surgery 04/12/21 documented as of this encounter
--- OUTSIDE RECORDS SUMMARY | 2023-12-04 20:16 | XMS_ITS | Encounter Summary ---
Author Organization [facility] Address [address] [place] [address] Care Team Providers Care Buckle Stapler Name Role Phone Marva Hitchcock MD Primary Care Provider Reason for Visit * Reason Onset Date Comments Results 11/17/2019 Encounter Details Date Type Department Care Team (Late st Contact Info) Description 11/17/2019 Telephone [facility] Endocrinology - [facility] [address] [place] [address] Carlos Nuñez DO [address] [facility] [address] [place] [phone] Results Social History Tobacco Use [...] Tab by mouth daily. 90 Tab 3 11/17/2019 12/05/2019 documented in this encounter Miscellaneous Notes * Telephone Encounter - Diana Dewitt RN - 11/17/2019 1355 EDT Called pt and Lab results were excellent. ??Continue on current dose. ??Follow-up as outlined in most recent progress note. documented in this encounter Plan of [...] Take 1 Tab by mouth daily. Reorder 03/03/2019 11/17/2019 documented as of this encounter Care Teams Buckle Stapler Relationship Specialty Start Date End Date Marva Hitchcock MD [address] [place] [phone] PCP - General 06/03/17 06/28/20 documented as of this encounter
--- OUTSIDE RECORDS SUMMARY | 2023-12-04 20:16 | XMS_ITS | Encounter Summary ---
Author Organization [facility] Address [address] [place] [address] Care Team Providers Care Integration Aide Name Role Phone Marva Hitchcock MD Primary Care Provider Reason for Visit * Reason Onset Date Comments Medications Refill 09/17/2019 Encounter Details Date Type Department Care Team (Late st Contact Info) Description 09/17/[address] [phone] Robbie New MD [address] [place] [phone] Medications Refill Social History Tobacco Use Types [...] MOUTH TWICE A DAY 10 Tab 1 09/19/2019 12/09/2019 documented in this encounter Miscellaneous Notes * Telephone Encounter - Jolene Tovar MD - 09/19/2019 1346 EDT Order signed. Jolene Tovar MD 09/19/2019 13:45 * Telephone Encounter - Cyn Alberto RN - 09/19/2019 1313 EDT Medication(s) Requested: Valacyclovir 500mg [facility] Is patient out of medication? Unknown Last Refill Date: 05/29/19 Last Visit Date with Ordering Provider: 09/13/19 Next Non-Acute Visit Date Scheduled with Care Team: No. CYN ALBERTO RN 09/19/2019 13:13 * Telephone Encounter - Cyn Alberto RN - 09/19/2019 1313 EDTFrom: Tiny Cline Sent: 09/17/2019 20:45 EDT Subject: Medication Renewal Request Tiny Cline would like a refill of the following medications: valACYclovir (VALTREX) 500 mg tablet [Robbie New III, MD] Preferred pharmacy: [id number] documented in this encounter Plan of Treatment [...] TABLET BY MOUTH TWICE A DAY Reorder 05/29/2019 09/17/2019 documented as of this encounter Care Teams Integration Aide Relationship Specialty Start Date End Date Marva Hitchcock MD [address] [place] [phone] PCP - General 06/03/17 06/28/20 documented as of this encounter
--- OUTSIDE RECORDS SUMMARY | 2023-12-04 20:16 | XMS_ITS | Encounter Summary ---
Author Organization [facility] Address [address] [place] [address] Care Team Providers Care Piece Goods Packer Name Role Phone Marva Hitchcock MD Primary Care Provider Reason for Visit * Reason Onset Date Comments Medications Refill 05/28/2019 Encounter Details Date Type Department Care Team (Late st Contact Info) Description 05/28/[address] [phone] Marva Hitchcock MD [address] [place] [phone] Medications Refill Social History Tobacco Use Types [...] MOUTH TWICE A DAY 10 Tab 1 05/29/2019 09/17/2019 documented in this encounter Miscellaneous Notes * Telephone Encounter - Harrison Cha RN - 05/29/2019 0830 EDT Medication(s) Requested: Valtrex 500 mg on 04/17/19 for 10 with 1 refill [facility] Is patient out of medication? Unknown Last Refill Date: See above Last Visit Date with Ordering Provider: 05/05/19 Next Non-Acute Visit Date Scheduled with Care Team: Yes. 06/02/19 HARRISON CHA RN 05/29/2019 8:30 * Telephone Encounter - Harrison Cha RN - 05/29/2019 0822 EDTFrom: Tiny Cline Sent: 05/28/2019 2:50 EDT Subject: Medication Renewal Request Tiny Cline would like a refill of the following medications: valACYclovir (VALTREX) 500 mg tablet [Marva Hitchcock MD] Preferred pharmacy: [facility] - [place], [place] - [address] [facility] documented in this encounter Plan of Treatment [...] TABLET BY MOUTH TWICE A DAY Reorder 04/17/2019 05/28/2019 documented as of this encounter Care Teams Piece Goods Packer Relationship Specialty Start Date End Date Marva Hitchcock MD [address] [place] [phone] PCP - General 06/03/17 06/28/20 documented as of this encounter
--- OUTSIDE RECORDS SUMMARY | 2023-12-04 20:16 | XMS_ITS | Encounter Summary ---
Author Organization [facility] Address [address] [place] [address] Care Team Providers Care Senior Recruitment Consultant Name Role Phone Marva Hitchcock MD Primary Care Provider Reason for Visit * Reason Onset Date Comments Abdominal Pain 06/21/2020 Encounter Details Date Type Department Care Team (Late st Contact Info) Description 06/21/[address] [phone] Marva Hitchcock MD [address] [place] [phone] Abdominal Pain Social History Tobacco Use Types [...] * Telephone Encounter - Yazan Sanchez - 06/21/2020 1302 EDT Care and concern call made. Left message for the patient to call our office if still symptomatic orhas any question/concerns. YAZAN SANCHEZ 06/21/2020 13:03 documented in this encounter Plan of Treatment Not on file documented as of this encounter Goals Goal Patient Goal Type Associated Problems Recent Progress Patient-Stated? Author Weight Loss General Obesity, Class III, BMI 40-49.9 (morbid obesity) No Marva Hitchcock Note: Increased activity getting out doors with daughter documented as of this encounter Visit Diagnoses Not on filedocumented in this encounter Care Teams Senior Recruitment Consultant Relationship Specialty Start Date End Date Marva Hitchcock MD [address] [place] [phone] PCP - General 06/03/17 06/28/20 documented as of this encounter
--- OUTSIDE RECORDS SUMMARY | 2023-12-04 20:16 | XMS_ITS | Encounter Summary ---
Author Organization [facility] Address [address] [place] [address] Care Team Providers Care Lease Operator Name Role Phone Unknown, Provider Primary Care Provider Camilla Jiang MD Primary Care Provider Danyel Forde DO Primary Care Provider + Danyel Forde DO Primary Care Provider + Ayla Solomon DO Primary Care Provider [phone] Encounter Details Date Type Department Care Team (Late st Contact Info) Description 07/17/2020 Lab Requisition [facility] Pathology & Laboratory Medicine - [facility] [place] [address] [place] [address] Raghu Jaffe MD [address] [place] [address] [address] [place], [place] [phone] Encounter for other general examination Social History [...] Date/Time Associated Diagnosis Comments SURGICAL PATHOLOGY Today 07/17/2020 11 :46 EDT Encounter for other general examination documented in this encounter Results * SURGICAL PATHOLOGY (07/17/2020 11:46 EDT) Final Diagnosis A. DUODENUM, BIOPSY: - Duodenal mucosa with no specific pathological features. B. STOMACH, ANTRUM, BIOPSY: - Helicobacter pylori-associated active chronic gastritis. See comment. C. GASTROESOPHAGEAL JUNCTION, BIOPSY: - Squamocolumnar mucosa with acute and chronic inflammation. - Negative for Helicobacter pylori microorganisms on H&E stained sections. 07/19/2020 10:46 EDT [facility] Diagnosis Comment Immunoperoxidase stains were performed on this case to further characterize the lesion. ANTIBODY(CLONE)(BL OCK):RESULT H pylori (Rabbit Monoclonal (SP48), [place]) (B1): Positive for Helicobacter pylori NOTE: One or more of the reagents used in immunoperoxidase testing in this case may not have been cleared or approved by the U.S. Food and Drug Administration (FDA). The FDA has determined that such clearance or approval is not necessary. These tests are used for clinical purposes. They should not be regarded as investigational or for research. These reagents' performance characteristics have been determined by [facility] and/or by the referring laboratory. The positive and negative controls worked appropriately. If immunoperoxidase staining has been performed on alcohol fixed cytology specimens, which has not been fully validated, the assays should be interpreted with caution and correlated with clinical data. This laboratory is certified under the Clinical Laboratory Improvement Amendments of 1988 (CLIA-88) as qualified to perform high complexity clinical laboratory testing. 07/19/2020 10:46 [facility] Attestation There was significant resident/fellow involvement in the diagnostic evaluation of this case. By the signature below, the attending physician certifies that they have personally conducted a gross and/or microscopic examination of the described specimens and rendered or confirmed the above diagnosis. 07/19/2020 10:46 [facility] at 1046 Clinical History N/V/D; abdominal pain; S/P cholecystectomy 07/19/2020 10:46 [facility] Gross Description A. Received in formalin labelled with proper patient identification (initials B, K) and duodenum Bx are three friedman-pink tissues (0.4 x 0.2 x 0.2 cm to 0.2 x 0.2 x 0.2 cm). Entirely submitted in A1. B. Received in formalin labelled with proper patient identification (initials B, K) and antrum Bx is a pale friedman-pink focally red speckled tissue (0.7 x 0.2 x 0.1 cm). Submitted intact in B1. C. Received in formalin labelled with proper patient identification (initials B, K) and GE junction are two pale friedman-pink tissues (0.3 x 0.3 x 0.2 cm and 0.3 x 0.2 x 0.1 cm). Entirely submitted in C1. Eliot George 07/17/2020 16:12 07/19/2020 10:46 EDT [facility] Resident/Anthony w: Jean-Claude Jarquin DO 07/19/2020 10:46 EDT [facility] Performing Lab [facility] 10:46 EDT [facility] Scanned Images 07/19/2020 10:46 EDT [facility] Tissue ENTIRE ESOPHAGO-ROSANNA AMY MUCOSAL JUNCTION / Unknown 07/17/2020 11:46 EDT 07/17/2020 15:50 EDT Tissue specimen (specimen) STOMACH STRUCTURE / Unknown 07/17/2020 11:46 EDT 07/17/2020 15:50 EDT Tissue specimen (specimen) CARDIOESOPHAGEAL JUNCTION STRUCTURE / Unknown 07/17/2020 11:46 EDT 07/17/2020 15:50 EDT Raghu Jaffe MD PATHOLOGY ORDERA BLES [facility] [address] [place] [address] documented in this encounter Visit Diagnoses Diagnosis Encounter for other general examination documented in this encounter Additional Health Concerns Infection Onset Date Last Indicated Resolved Time COVID-19 07/14/2021 07/14/2021 07/25/2021 22:1 6 EDT documented as of this encounter Care Teams Lease Operator Relationship Specialty Start Date End Date Unknown, Provider, PCP - General 06/29/20 08/01/20 Camilla Jiang MD [address] [place] [phone] PCP - General Family Medicine - Primary Care 08/02/20 08/27/20 Danyel Forde DO [address] [place] [phone] PCP - General Family Medicine - Primary Care 08/29/20 04/11/21 Danyel Forde DO [address] [place] [phone] PCP - General 08/28/20 08/28/20 Ayla Solomon DO [address] [facility] [address] M[address]aniel [address] [place] [phone] PCP - General General Surgery 04/12/21 documented as of this encounter
--- OUTSIDE RECORDS SUMMARY | 2023-12-04 20:17 | XMS_ITS | Encounter Summary ---
Author Organization [facility] Address [address] [place] [address] Care Team Providers Care Valet Name Role Phone Marva Hitchcock MD Primary Care Provider Reason for Visit * Reason Comments Vaginal Itching seen at walk in ~2 w eeks ago with itching and inflammation, patient treated for HSV outbreak, no relief. Still having occasional itching, was yeast in her urine Encounter Details Date Type Department Care Team (Late st Contact Info) Description 02/20/2019 11:00 EST Office Visit [facility] Medicine [address] [phone] Loli Valdivia, TITLE CLOSER [address] [facility] [place] [phone] Acute vaginitis (Primary Dx) Social History Tobacco Use Types Packs/Day Years Used Date Smoking Tobacco: Former Cigarettes 0.5 5 Smokeless Tobacco: Never Tobacco Cessation:Counseling Given: No Comments:quit prior to dating ultrasound Alcohol Use [...] Sign Reading Time Taken Comments Blood Pressure 110/66 02/20/2019 1111 EST Pulse 80 02/20/2019 1111 EST Temperature - - Respiratory Rate - - Oxygen Saturation - - Inhaled Oxygen Concentration - - Weight 111.1 kg (245 lb) 02/20/2019 1111 EST Height 158.8 cm (5' 2.5) 02/20/2019 1111 EST Body Mass Index 44.1 02/20/2019 1111 EST documented in this encounter Functional Status [...] serious difficulty concentrating, remembering, or making decisions? No 09/29/2017 documented as of this encounter Ordered Prescriptions Prescription Sig Dispensed Refills Start Date End Da te fluconazole (DIFLUCAN) 150 mg tablet Take 1 Tab by mouth once for 1 dose. 1 Tab 02/20/2019 03/02/2019 documented in this encounter Progress Notes * Mary Jo Spence LPN - 02/20/2019 1100 EST Patient Education Topic:Patient was asked if they desired a cyber security architect with the sensitive exam and declined today. MARY JO SPENCE LPN 02/20/2019 11:15 * Loli Valdivia APRN - 02/20/2019 1100 EST Office Visit Note [facility] Patient ID: Tiny Cline 23 y.o. female CC: Vaginal Itching (seen at walk in ~2 weeks ago with itching and inflammation, patient treated for HSV outbreak, no relief. Still having occasional itching, was yeast in her urine) Subjective: HPI: Tiny Cline is a 23 y.o. female who reports abnormal vaginal discharge for 2 weeks. Vaginal symptoms include vulvar itching and burning which is improving since she was seen at [facility] last week She has a history of herpes and says she was treated with anti viral which helped a little Denies rash of vulvar area GCC was negative at urgent care She has clear/white discharge, is about to start her period, and says this is normal for her beforestarting Was on the pill until 2 months ago when she stopped taking to try to get test at was negative STI Risk: Very low risk of STD exposure Sexually active with one male partner - Has annual exam next week with her OBGYN for pap ROS Denies abnormal vaginal bleeding or significant pelvic pain or fever. No UTI symptoms. Denies history of known exposure to STD History: Social, family, and personal medical history reviewed and documented in the medical [id number] Medications: Reviewed and documented in the medical record 02/20/19 Objective: VS: Blood pressure 110/66, pulse 80, height 158.8 cm (62.5), weight (!) 111.1 kg (245 lb), currently . Body mass index is 44.1 kg/m??. No LMP recorded. Physical Exam She appears well, afebrile. Abdomen: benign, soft, nontender, no masses. Assessment/Plan: Tiny was seen today for vaginal itching. Diagnoses and all orders for this visit: Acute vaginitis - fluconazole (DIFLUCAN) 150 mg tablet; Take 1 Tab by mouth once for 1 dose. - Follow up with OBGYN at regularly scheduled visit next week Loli Valdivia APRN 02/20/2019 12:55 documented in this encounter Plan of Treatment Not on file documented as of this encounter Goals Goal Patient Goal Type Associated Problems Recent Progress Patient-Stated? Author Weight Loss General Obesity, Class III, BMI 40-49.9 (morbid obesity) No Marva Hitchcock Note: Increased activity getting out doors with daughter documented as of this encounter Visit Diagnoses Diagnosis Acute vaginitis- Primary Vaginitis and vulvovaginitis, unspecified documented in this encounter Care Teams Valet Relationship Specialty Start Date End Date Sikule, Marva A, MD [address] [place] [phone] PCP - General 06/03/17 06/28/20 documented as of this encounter
--- OUTSIDE RECORDS SUMMARY | 2023-12-04 20:17 | XMS_ITS | Encounter Summary ---
Author Organization [facility] Address [address] [place] [address] Care Team Providers Care Tire Shop Manager Name Role Phone Marva Hitchcock MD Primary Care Provider Encounter Details Date Type Department Care Team (Late st Contact Info) Description 01/06/2019 11:51 EST Hospital Encounter [facility] [address] [place] [address] Carlos Nuñez, DO [address] [place] [phone] Social History Tobacco Use Types [...] in the Last Year Never true 11/07/2019 Blue Depression Scale Answer Date Recorded Blue Depression Scale Total 21 09/17/2021 The thought [...] No 09/29/2017 documented as of this encounter Discharge Diagnoses Diagnosis 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
--- OUTSIDE RECORDS SUMMARY | 2023-12-04 20:17 | XMS_ITS | Encounter Summary ---
Author Organization [facility] Address [address] [place] [address] Care Team Providers Care Sash Clamp Operator Name Role Phone Marva Hitchcock MD Primary Care Provider Reason for Visit * Reason Onset Date Comments Results 01/10/2019 Encounter Details Date Type Department Care Team (Late st Contact Info) Description 01/10/2019 Telephone [facility] Endocrinology - [facility] [address] [place] [address] Carlos Nuñez, [address] [facility] [address] [place] [address] Results Social History Tobacco Use [...] No 09/29/2017 documented as of this encounter Miscellaneous Notes * Telephone Encounter - Diana Dewitt RN - 01/10/2019 1358 EST Called pt and relayed Dr. Nuñez's message below: Please contact patient via phone. I reviewed her most recent thyroid function test obtained on January 06, 2019 at the [facility]. Her TSH is now slightly elevated at 5.1 with a normal free T4. Please make sure patient is taking medication regularly first thing morning on empty stomach and not taking it with any vitamins, iron supplementation or calcium supplementation. I would like to repeat her labs in 4 weeks if they remain similar family may need to alternate between 175 and 150 mcg Labs have been ordered. Patient verbalized understanding. No barriers to learning noted. Diana Dewitt RN Endocrinology * Telephone Encounter - Carlos Nuñez DO - 01/10/2019 1138 EST Please contact patient via phone. I reviewed her most recent thyroid function test obtained on January 06, 2019 at the [facility]. Her TSH is now slightly elevated at 5.1 with a normal free T4. Please make sure patient is taking medication regularly first thing morning on empty stomach and not taking it with any vitamins, iron supplementation or calcium supplementation. I would like to repeat her labs in 4 weeks if they remain similar family may need to alternate between 175 and 150 mcg documented in this encounter Plan of Treatment Not on file documented as of this encounter Goals Goal Patient Goal Type Associated Problems Recent Progress Patient-Stated? Author Weight Loss General Obesity, Class III, BMI 40-49.9 (morbid obesity) No Sikule, Marva Note: Increased activity getting out doors with daughter documented as of this encounter Results * T4 FREE (03/02/2019 11:29 EST) T4, Free 1.2 0.8 - 2.2 ng/dL 03/02/2019 12:40 EST [facility] Blood VENOUS BLOOD / Unknown Venipuncture / Unknown 03/02/2019 11:29 EST 03/02/2019 11:46 EST Carlos Hipolito Nuñez DO CHEMISTRY & BL OOD GAS ORDERABLES Performing Organization Address City/[facility]/ZIP Co de Phone Number [facility] [address] [place] [address] * (ABNORMAL) TSH (03/02/2019 11:29 EST) TSH 11.50(H) 0.47 - 4.68 uIU/mL 03/02/2019 12:54 EST [facility] Blood VENOUS BLOOD / Unknown Venipuncture / Unknown 03/02/2019 11:29 EST 03/02/2019 11:46 EST Narrative [facility] - 03/02/2019 12:54 EST The results of this assay can be falsely lowered due to the consumption of Biotin. Carlos Hipolito Nuñez DO CHEMISTRY & BL OOD GAS ORDERABLES Performing Organization Address City/[facility]/ZIP Co de Phone Number [facility] [address] [place] [address] documented in this encounter Visit Diagnoses Diagnosis Status post radioactive iodine thyroid ablation- Primary Other postprocedural status documented in this encounter Care Teams Sash Clamp Operator Relationship Specialty Start Date End Date Marva Hitchcock MD [address] [place] [phone] PCP - General 06/03/17 06/28/20 documented as of this encounter
--- OUTSIDE RECORDS SUMMARY | 2023-12-04 20:17 | XMS_ITS | Encounter Summary ---
Author Organization [facility] Address [address] [place] [address] Care Team Providers Care Yard Manager Name Role Phone Marva Hitchcock MD Primary Care Provider Reason for Visit * Reason Onset Date Comments Family History Of Genetic Disease 11/09/2018 Encounter Details Date Type Department Care Team (Late st Contact Info) Description 11/09/2018 Orders Only [facility] Pediatric Genetics - Main [place] [address] [place] [address] Marci Power, [place] [address] [facility] [place] [address] Family history of genetic disorder (Primary Dx); Encounter for procreative genetic counseling and testing; Encounter for other screening for genetic and chromosomal anomalies Social History Tobacco Use Types Packs/Day Years [...] No 09/29/2017 documented as of this encounter Plan of Treatment Not on file documented as of this encounter Goals Goal Patient Goal Type Associated Problems Recent Progress Patient-Stated? Author Weight Loss General Obesity, Class III, BMI 40-49.9 (morbid obesity) No Marva Hitchcock Note: Increased activity getting out doors with daughter documented as of this encounter Results * MISCELLANEOUS TEST, NON LLAMAS (11/10/2018 12:21 EDT) Test Name TESTIN FOR FAMILIAL VARIANTS 11/10/2018 12:[address] [facility] Result See Pathology Scanned Report in EPIC. 01/03/2019 18:35 [facility] Ref Range See Pathology Scanned Report in [facility]. 01/03/2019 18:35 [facility] Ref Lab (Note) 01/03/2019 18:35 [facility] Comment:TESTING PERFORMED [place] [address] Date Sample Shipped 11/10/18 11/10/2018 14:[address] [facility] Specimen of unknown material (specimen) TOPOGRAPHY UNKNOWN / Unknown 11/10/2018 12:21 EDT 11/10/2018 14:38 EDT Dee De La Cruz MD CHEMISTRY & BLOOD GAS ORDERABLES [facility] [address] [place] [address] documented in this encounter Visit Diagnoses Diagnosis Family history of genetic disorder- Primary Family history of other condition Encounter for procreative genetic counseling and testing Encounter for other screening for genetic and chromosomal anomalies documented in this encounter Care Teams Yard Manager Relationship Specialty Start Date End Date Marva Hitchcock MD [address] [place] [phone] PCP - General 06/03/17 06/28/20 documented as of this encounter
--- OUTSIDE RECORDS SUMMARY | 2023-12-04 20:17 | XMS_ITS | Encounter Summary ---
Author Organization [facility] Address [address] [place] [address] Care Team Providers Care Bradley Linebacker Crewmember Name Role Phone Marva Hitchcock MD Primary Care Provider Reason for Visit * Reason Onset Date Comments Abdominal Pain 08/11/2017 Encounter Details Date Type Department Care Team (Late st Contact Info) Description 08/11/2017 Telephone [facility] - Main [place] [address] [place], [place] [phone] Adriana Erickson RN Abdominal Pain Social History Tobacco Use Types [...] shopping? (15 years old or older) No 08/08/2017 Cognitive Status Response Date of Assessm ent Because of a physical, menta l, or emotional condition, do you have serious difficulty concentrating, remembering, or making decisions? (5 years old or older) No 08/08/2017 documented as of this encounter Miscellaneous Notes * Telephone Encounter - Adriana Erickson RN - 08/11/2017 1407 EDT TC from [facility] who was d/c'd home yesterday. States that TM Q 4 hrs isn't helping her abd cramping. Encouraged to try heat to abd; Advised that she could try 1000 mg Tylenol q 6-8 hrs instead of regular strength to see if there is any further improvement. documented in this encounter Plan of Treatment Not on file documented as of this encounter Visit Diagnoses Not on filedocumented in this encounter Care Teams Bradley Linebacker Crewmember Relationship Specialty Start Date End Date Marva Hitchcock MD [address] [place] [phone] PCP - General 06/03/17 06/28/20 documented as of this encounter
--- OUTSIDE RECORDS SUMMARY | 2023-12-04 20:17 | XMS_ITS | Encounter Summary ---
Author Organization [facility] Address [address] [place] [address] Care Team Providers Care Charcoal Kiln Burner Name Role Phone Marva Hitchcock MD Primary Care Provider [phone] Reason for Visit * Reason Onset Date Comments Abdominal Pain 10/21/2018 Encounter Details Date Type Department Care Team (Late st Contact Info) Description 10/21/[address] [phone] Marva Hitchcock MD [address] [place] [phone] Abdominal Pain Social History Tobacco Use Types [...] * Telephone Encounter - Yoli Skinner - 10/21/2018 1635 EDT Care and concern call made. Left [...] on filedocumented in this encounter Care Teams Charcoal Kiln Burner Relationship Specialty Start Date End Date Marva Hitchcock MD [address] [place] [phone] PCP - General 06/03/17 06/28/20 documented as of this encounter
--- OUTSIDE RECORDS SUMMARY | 2023-12-04 20:17 | XMS_ITS | Encounter Summary ---
Author Organization [facility] Address [address] [place] [address] Care Team Providers Care Job Placement Counselor Name Role Phone Marva Hitchcock MD Primary Care Provider Reason for Visit * Reason Comments Immunizations Encounter Details Date Type Department Care Team (Late st Contact Info) Description 12/31/2017 11:30 EDT Nurse Only [address] [address] Unknown, Provider, Namita Zuñiga MD [address] [place] [phone] Nurse, [facility] Kiet , RN Immunization due (Primary Dx); Need for pneumococcal vaccine Discharge Disposition: Auto Discharge Social History Tobacco Use Types Packs/Day Years [...] as of this encounter Discharge Diagnoses Diagnosis Z23 Encounter for immunization-Z23[ICD-10-CM] documented in this encounter Discharge Disposition Disposition Code Departure Means Destination Auto Discharge documented in this encounter Progress Notes * Andreia Olivares LPN - 12/31/2017 1130 EDT Here today for PPSV23 and Influenza vaccines only See immunization tab for details of injections. I was supervised by Nanci Tamayo MD who was present and immediately available in the office suite. Anderia Olivares LPN 12/31/2017 11:54 documented in this encounter Plan of Treatment Not on file documented as of this encounter Visit Diagnoses Diagnosis Immunization due- Primary Need for prophylactic vaccination and inoculation against unspecified single disease Need for pneumococcal vaccine Need for prophylactic vaccination against streptococcus pneumoniae (pneumococcus) documented in this encounter Orders Immunization/Injection Count Last Ordered Date First Ordered Date INFLUENZA VACCINE QUAD (FLUZ ONE) PF 0.5 ML IM (3 YRS+) 1 12/31/2017 PNEUMOCOCCAL POLYSACCHARIDE (PPSV23) VACCINE (PNEUMOVAX-23) 23-VALENT =>2YO SQ/IM 1 12/31/2017 documented in this encounter Care Teams Job Placement Counselor Relationship Specialty Start Date End Date Marva Hitchcock MD [address] [place] [phone] PCP - General 06/03/17 06/28/20 documented as of this encounter
--- OUTSIDE RECORDS SUMMARY | 2023-12-04 20:17 | XMS_ITS | Encounter Summary ---
Author Organization [facility] Address [address] [place] [address] Care Team Providers Care Jewel Hole Finish Opener Name Role Phone Marva Hitchcock MD Primary Care Provider Encounter Details Date Type Department Care Team (Late st Contact Info) Description 01/06/2019 Phlebotomy Only [facility] [address] [place] [address] Commissions Manager, Outpatient Hypothyroidism, postablative (Primary Dx) Social History Tobacco Use Types [...] Name Priority Date/Time Associated Diagnosis Comments TSH Routine 01/06/2019 12:05 EST Hypothyroidism, postablative T4 FREE Routine 01/06/2019 12:05 EST Hypothyroidism, postablative documented in this encounter Results * T4 FREE (01/06/2019 12:05 EST) T4, Free 1.0 0.8 - 2.2 ng/dl 01/06/2019 13:05 EST [facility] Blood specimen (specimen) BLOOD SPECIMEN / Unknown 01/06/2019 12:05 EST 01/06/2019 12:15 EST Carlos Nuñez DO CHEMISTRY & BL OOD GAS ORDERABLES [facility] [address] [place] [address] * (ABNORMAL) TSH (01/06/2019 12:05 EST) TSH 5.13(H) 0.47 - 4.68 uIU/ml 01/06/2019 13:18 EST [facility] Comment: The results of this assay can be falsely lowered due to the consumption of Biotin. Blood specimen (specimen) BLOOD SPECIMEN / Unknown 01/06/2019 12:05 EST 01/06/2019 12:15 EST Carlos Nuñez DO CHEMISTRY & BL OOD GAS ORDERABLES [facility] [address] [place] [address] documented in this encounter Visit Diagnoses Diagnosis Hypothyroidism, postablative- Primary Other postablative hypothyroidism documented in this encounter Care Teams Jewel Hole Finish Opener Relationship Specialty Start Date End Date Marva Hitchcock MD [address] [place] [phone] PCP - General 06/03/17 06/28/20 documented as of this encounter
--- OUTSIDE RECORDS SUMMARY | 2023-12-04 20:17 | XMS_ITS | Encounter Summary ---
Author Organization [facility] Address [address] [place] [address] Care Team Providers Care Environmental Engineering Assistant Name Role Phone Marva Hitchcock MD Primary Care Provider Reason for Visit * Reason Comments Suture / Staple Removal Encounter Details Date Type Department Care Team (Late st Contact Info) Description 11/11/2018 15:45 EDT Nurse Only [facility] - [address] [phone] Unknown, Provider, Robbie New MD [address] [place] [phone] Nurse, [facility] , RN Lipoma of torso (Primary Dx) Discharge Disposition: Auto Discharge Social History Tobacco [...] 09/29/2017 documented as of this encounter Discharge Disposition Disposition Code Departure Means Destination Auto Discharge documented in this encounter Progress Notes * Mary Jo Spence LPN - 11/11/2018 1545 EDT Patient presents for suture removal only today 2 weeks s/p lipoma removal by Dr. Hitchcock on left chest. Incision site clean dry and intact with no drainage and only slight redness surrounding the area. Patient denies any pain. After site inspected by Bethany Caceres RN, 3 sutures were removed fromthe incision site without difficulty. No drainage noted from the incision site after removal. Patient aware to leave open to the air for remainder of healing time, call with any s/s of infection or with any drainage or change in symptoms. Patient agrees with this plan. I was supervised by Dr. New who was present and immediately available in the office suite. MARY JO SPENCE LPN 11/11/2018 16:22 documented in this encounter Plan of Treatment Not on file documented as of this encounter Goals Goal Patient Goal Type Associated Problems Recent Progress Patient-Stated? Author Weight Loss General Obesity, Class III, BMI 40-49.9 (morbid obesity) No Marva Hitchcock Note: Increased activity getting out doors with daughter documented as of this encounter Visit Diagnoses Diagnosis Lipoma of torso- Primary documented in this encounter Care Teams Environmental Engineering Assistant Relationship Specialty Start Date End Date Marva Hitchcock MD [address] [place] [phone] PCP - General 06/03/17 06/28/20 documented as of this encounter
--- OUTSIDE RECORDS SUMMARY | 2023-12-04 20:17 | XMS_ITS | Encounter Summary ---
Author Organization [facility] Address [address] [place] [address] Care Team Providers Care Sheet Metal Worker Name Role Phone Marva Hitchcock MD Primary Care Provider [phone] Encounter Details Date Type Department Care Team (Late st Contact Info) Description 03/02/2019 11:15 EST Phlebotomy Only [facility] Phlebotomy [address] [place] [address] Data Consultant, Acc Phlebotomy Status post radioactive iodine thyroid ablation; Pre-conception counseling Social History Tobacco Use Types Packs/Day Years [...] Procedure Name Priority Date/Time Associated Diagnosis Comments MEASLES IGG AB Routine 03/02/2019 11:29 EST Pre-conception counseling TSH Routine 03/02/2019 11:29 EST Status post radioactive iodine thyroid ablation T4 FREE Routine 03/02/2019 11:29 EST Status post radioactive iodine thyroid ablation documented in this encounter Results * MEASLES IGG AB (03/02/2019 11:29 EST) Measles IgG Ab Positive See Note 03/02/2019 13:41 EST [facility] Comment:Presence of detectab le measles virus IgG antibodies. Blood VENOUS BLOOD / Unknown Venipuncture / Unknown 03/02/2019 11:29 EST 03/02/2019 11:46 EST Anju Dupont NP IMMUNOLOGY AND SE ROLOGY ORDERABLES [facility] [address] [place] [address] * T4 FREE (03/02/2019 11:29 EST) T4, Free 1.2 0.8 - 2.2 ng/dL 03/02/2019 12:40 EST [facility] Blood VENOUS BLOOD / Unknown Venipuncture / Unknown 03/02/2019 11:29 EST 03/02/2019 11:46 EST Carlos Nuñez DO CHEMISTRY & BL OOD GAS ORDERABLES Performing Organization Address City/[facility] Co de Phone Number [facility] [address] [place] [address] * (ABNORMAL) TSH (03/02/2019 11:29 EST) TSH 11.50(H) 0.47 - 4.68 uIU/mL 03/02/2019 12:54 EST [facility] Blood VENOUS BLOOD / Unknown Venipuncture / Unknown 03/02/2019 11:29 EST 03/02/2019 11:46 EST Narrative [facility] - 03/02/2019 12:54 EST The results of this assay can be falsely lowered due to the consumption of Biotin. Carlos Nuñez DO CHEMISTRY & BL OOD GAS ORDERABLES Performing Organization Address [facility] Co de Phone Number [facility] [address] [place] [phone] documented in this encounter Visit Diagnoses Diagnosis Status post radioactive iodine thyroid ablation Other postprocedural status Pre-conception counseling Other procreative management counseling and advice documented in this encounter Care Teams Sheet Metal Worker Relationship Specialty Start Date End Date Marva Hitchcock MD [address] [place] [phone] PCP - General 06/03/17 06/28/20 documented as of this encounter
--- OUTSIDE RECORDS SUMMARY | 2023-12-04 20:17 | XMS_ITS | Encounter Summary ---
Author Organization [facility] Address [address] [place] [address] Care Team Providers Care Alternative Financing Specialist Name Role Phone Marva Hitchcock MD Primary Care Provider [phone] Reason for Visit * Reason Comments Pharyngitis Encounter Details Date Type Department Care Team (Late st Contact Info) Description 01/19/[address] [address] Deforge, Andreia, MACHINE II ENGRAVER Pharyngitis Social History Tobacco Use Types Packs/Day Years [...] encounter Miscellaneous Notes * Telephone Encounter - Andreia Olivares LPN - 02/02/2018 1218 EST No returned phone calls No schedule f/u visits * Telephone Encounter - Andreia Olivares LPN - 01/19/2018 1005 EST Patient was seen @ [facility] on 01/14 and 01/17 for c/o sore throat and myalgias. UPT and urine dip negative @ this time. Recommended rest and ibuprofen/tylenol Left message to call back to see if she needs to be seen to f/u documented in this encounter Plan of Treatment Not on file documented as of this encounter Visit Diagnoses Not on filedocumented in this encounter Care Teams Alternative Financing Specialist Relationship Specialty Start Date End Date Marva Hitchcock MD [address] [place] [phone] PCP - General 06/03/17 06/28/20 documented as of this encounter
--- OUTSIDE RECORDS SUMMARY | 2023-12-04 20:17 | XMS_ITS | Encounter Summary ---
Author Organization [facility] Address [address] [place] [address] Care Team Providers Care Electrophysiology Tech Name Role Phone Marva Hitchcock MD Primary Care Provider Reason for Visit * Reason Onset Date Comments Medication Management 11/15/2018 Encounter Details Date Type Department Care Team (Late st Contact Info) Description 11/15/2018 Telephone [facility] Endocrinology - [facility] [address] [place] [address] Carlos Nuñez, [address] [facility] [address] [place] [phone] Medication Management Social History Tobacco [...] Start Date End Da te levothyroxine (SYNTHROID) 150 mcg tablet Take 1 Tab by mouth daily. 90 Tab 3 11/16/2018 03/03/2019 documented in this encounter Miscellaneous Notes * Telephone Encounter - Pema Reina RN - 11/15/2018 1618 EDT Calling patient 11/15/18 16:[address] Nuñez's message : Unable to reach patient. Left detailed message. Please contact patient via phone. I have reviewed her most recent blood work drawn on 11/10/2018. Her TSH is low but detectable at 0.07 with a free T4 in the high end of normal 1.8. This indicates that her current dose of thyroid hormone replacement is slightly too much for her. Please confirm she is taking levothyroxine 175 mcg daily. If confirmed, have her reduce her dose to 150 mcg daily and repeat TSH and free T4 in 6 weeks PEMA REINA RN 11/15/2018 16:20 Lab orders entered by this racebook writer. PEMA REINA RN 11/15/2018 16:22 * Telephone Encounter - Carlos Nuñez Do - 11/15/2018 4656 EDT Please contact patient via phone. I have reviewed her most recent blood work drawn on 11/10/2018. Her TSH is low but detectable at 0.07 with a free T4 in the high end of normal 1.8. This indicates that her current dose of thyroid hormone replacement is slightly too much for her. Please confirm she is taking levothyroxine 175 mcg daily. If confirmed, have her reduce her dose to 150 mcg daily and repeat TSH and free T4 in 6 weeks documented in this encounter Plan of Treatment Not on file documented as of this encounter Goals Goal Patient Goal Type Associated Problems Recent Progress Patient-Stated? Author Weight Loss General Obesity, Class III, BMI 40-49.9 (morbid obesity) No Marva Hitchcock Note: Increased activity getting out doors with daughter documented as of this encounter Results * (ABNORMAL) TSH (01/06/2019 12:05 EST) TSH 5.13(H) 0.47 - 4.68 uIU/ml 01/06/2019 13:18 EST [facility] Comment: The results of this assay can be falsely lowered due to the consumption of Biotin. Blood specimen (specimen) BLOOD SPECIMEN / Unknown 01/06/2019 12:05 EST 01/06/2019 12:15 EST Carlos Nuñez DO CHEMISTRY & BL OOD GAS ORDERABLES Performing Organization Address [facility] Co de Phone Number [facility] [address] [place] [address] * T4 FREE (01/06/2019 12:05 EST) T4, Free 1.0 0.8 - 2.2 ng/dl 01/06/2019 13:05 EST [facility] Blood specimen (specimen) BLOOD SPECIMEN / Unknown 01/06/2019 12:05 EST 01/06/2019 12:15 EST Carlos Hipolito Nuñez DO CHEMISTRY & BL OOD GAS ORDERABLES Performing Organization Address [facility] Co de Phone Number [facility] [address] [place] [address] documented in this encounter Visit Diagnoses Diagnosis Hypothyroidism, postablative- Primary Other postablative hypothyroidism documented in this encounter Discontinued Medications Medication Sig Discontinue Reason Start Date End Da te levothyroxine (SYNTHROID) 175 mcg tabletIndications:Hypothyr oidism, postablative Take 1 Tab by mouth daily. 10/28/2018 11/16/2018 documented as of this encounter Care Teams Electrophysiology Tech Relationship Specialty Start Date End Date Marva Hitchcock MD [address] [place] [phone] PCP - General 06/03/17 06/28/20 documented as of this encounter
--- OUTSIDE RECORDS SUMMARY | 2023-12-04 20:17 | XMS_ITS | Encounter Summary ---
Author Organization [facility] Address [address] [place] [address] Care Team Providers Care Bulk Delivery Driver Name Role Phone Marva Hitchcock MD Primary Care Provider [phone] Reason for Visit * Reason Comments Other Encounter Details Date Type Department Care Team (Late st Contact Info) Description 11/19/[address] [id number] Marva Hitchcock MD [address] [place] [address] [phone] Other Social History Tobacco Use Types Packs/Day [...] MOUTH TWICE A DAY 10 Tab 1 11/21/2018 04/17/2019 documented in this encounter Miscellaneous Notes * Telephone Encounter - Keira Montez RN - 11/21/2018 1113 EDT Medication(s) Requested: Valtrex 500 mg on 10/05/18 for 10 with 1 refill Preferred Pharmacy: [facility] Is patient out of medication? Unknown Last Refill Date: See above Last Visit Date with Ordering Provider: 10/28/18 Next Non-Acute Visit Date Scheduled with Care Team: No. Keira Montez RN 11/21/2018 11:14 documented in this encounter Plan of Treatment [...] for HSV1 TAKE ONE TABLET BY MOUTH EVERY 12 hours Reorder 10/05/2018 11/21/2018 documented as of this encounter Care Teams Bulk Delivery Driver Relationship Specialty Start Date End Date Marva Hitchcock MD [address] [place], [place] [phone] PCP - General 06/03/17 06/28/20 documented as of this encounter
--- OUTSIDE RECORDS SUMMARY | 2023-12-04 20:17 | XMS_ITS | Encounter Summary ---
Author Organization [facility] Address [address] [place] [address] Care Team Providers Care Shift Supervisor Film Processing Name Role Phone Marva Hitchcock MD Primary Care Provider Reason for Visit * Reason Comments Lipoma on Rib X 2 years, torres d one removed before Encounter Details Date Type Department Care Team (Late st Contact Info) Description 05/24/2018 15:15 EDT Office Visit [facility] Medicine - [address] [phone] Marva Hitchcock MD [address] [place] [address] [phone] Lipoma of left upper extremity (Primary Dx); PCR DNA positive for HSV1; Obesity, Class III, BMI 40-49.9 (morbid obesity) ([facility]) Social History Tobacco Use Types Packs/Day Years [...] Sign Reading Time Taken Comments Blood Pressure 126/78 05/24/2018 1543 EDT Pulse 76 05/24/2018 1543 EDT Temperature - - Respiratory Rate - - Oxygen Saturation - - Inhaled Oxygen Concentration - - Weight 111.1 kg (245 lb) 05/24/2018 1543 EDT Height 158.8 cm (5' 2.5) 05/24/2018 1543 EDT Body Mass Index 44.1 05/24/2018 1543 EDT documented in this encounter Functional Status [...] ONE TABLET BY MOUTH EVERY 12 hours 10 tablet 1 05/24/2018 07/04/2018 documented in this encounter Progress Notes * Yazan Sanchez - 05/24/2018 1512 EDT Patient Education Topic: Health Care Agent Method: Handout Taught to: Patient Barriers: None Outcomes: independent YAZAN SANCHEZ 05/24/2018 15:51 * Marva Hitchcock - 05/24/2018 1515 EDT PROGRESS NOTE Chief Complaint Patient presents with ??? Lipoma on Rib X 2 years, had one removed before HPI: Tiny, 22 y.o. is here for Noticed it a few years ago. Went to have it removed but found to have 2 of them. The smaller one was more sensitive. But then the larger one started to bother her again. Getting bigger. More painful when touching it. Never had any discharge. Never had an ultrasound. ROS: 10 Systems reviewed found to be negative except as above. Patient Active Problem List Diagnosis ??? Acanthosis nigricans ??? Vitamin D deficiency ??? Status post radioactive iodine thyroid ablation ??? PCR DNA positive for HSV1 ??? Hypothyroidism, postablative ??? Closed fracture of nasal bone ??? Depression ??? Graves' disease ??? Autoimmune disorder (HCC-CMS) ??? Asthma Past Surgical History: Procedure Laterality Date ??? LIPOMA RESECTION 2017 on abdomen family history includes *Other(comment) in her paternal grandmother; Autism in her brother; Diabetes in her father, maternal grandmother, and paternal grandfather; Heart Attack in her paternal grandfather; Heart Disease in her maternal grandfather; High Cholesterol in her paternal grandfather; Hypertension in her brother, brother, maternal grandmother, mother, and paternal grandfather; Migraines in her brother; Retinitis Pigmentosa in her mother; Thyroid Disease in her father and another familymember. reports that she has quit smoking. Her smoking use included cigarettes. She has a 2.50 pack-year smoking history. she has never used smokeless tobacco. She reports that she does not drink alcohol or use drugs. Current Outpatient Medications Medication Sig Dispense Refill ??? albuterol 90 mcg/actuation inhaler Inhale 2 Puffs as directed every 4 hours as needed for Wheezing. 1 Inhaler 11 ??? ibuprofen (MOTRIN) 400 mg tablet Take 1 Tab by mouth every 4 hours as needed for Pain. (Patientnot taking: Reported on 05/24/2018) ??? levothyroxine (SYNTHROID) 175 mcg tablet Take 1 Tab by mouth daily. 90 Tab 1 ??? metroNIDAZOLE 1.3 % gel Place 1 Tube vaginally once for 1 dose. (Patient not taking: Reported on 05/24/2018) 5 g 0 ??? norethindrone (MICRONOR) 0.35 mg tablet Take 1 Tab by mouth daily. (Patient not taking: Reported on 05/24/2018) 84 Tab 4 ??? VITS62/FA/OM3/DHA/EPA ( GUMMY ORAL) Take by mouth. ??? valACYclovir (VALTREX) 500 mg tablet TAKE ONE TABLET BY MOUTH EVERY 12 hours 2 tablet 1 No current facility-administered medications for this visit. Allergies Allergen Reactions ??? Lorabid [Loracarbef] Nausea And Vomiting ??? Yeast, Dried Nausea And Vomiting If consumes large amounts will develop N/V PE: BP 126/78 (BP Cuff Location: Right arm, Patient Position: Sitting, BP Cuff Sizes: Adult, large) Pulse 76 Ht 158.8 cm (62.5) Wt (!) 111.1 kg (245 lb) BMI 44.10 kg/m?? General NAD alert and oriented ??3 Mood: reports normal affect is appropriate. She makes eye contact answers questions appropriately not flat. HEENT: head normocephalic eyes EOMI sclera normal hearing grossly intact Respiratory: normal respiratory effort bilaterally Skin: intact no signs of infection 1cm x 2cm lipoma left rib Extremities: she is full range of motion in her upper and lower extremities Assessment: 22 yo female who presents for lipoma that is now painful. Plan: 1) lipoma - painful on the left lower chest wall - will have patient follow up for removal. 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 documented in this encounter Plan of Treatment Not on file documented as of this encounter Visit Diagnoses Diagnosis Lipoma of left upper extremity- Primary PCR DNA positive for HSV1 Special screening examination for other specified viral diseases Obesity, Class III, BMI 40-49.9 (morbid obesity) ([facility]) Morbid obesity documented in this encounter Discontinued Medications Medication Sig Discontinue Reason Start Date End Da te valACYclovir (VALTREX) 500 mg tabletIndications:PCR DNA positive for HSV1 TAKE ONE TABLET BY MOUTH EVERY 12 hours Reorder 05/11/2018 05/24/2018 documented as of this encounter Care Teams Shift Supervisor Film Processing Relationship Specialty Start Date End Date Marva Hitchcock MD [address] [place] [phone] PCP - General 06/03/17 06/28/20 documented as of this encounter
--- OUTSIDE RECORDS SUMMARY | 2023-12-04 20:17 | XMS_ITS | Encounter Summary ---
Author Organization [facility] Address [address] [place] [address] Care Team Providers Care School Plant Consultant Name Role Phone Marva Hitchcock MD Primary Care Provider Reason for Visit * Reason Onset Date Comments Results 03/03/2019 Encounter Details Date Type Department Care Team (Late st Contact Info) Description 03/03/2019 Telephone [facility] Endocrinology - [facility] [address] [place] [address] Carlos Nuñez, [address] [facility] [address] [place] [phone] Results Social History Tobacco Use [...] Tab by mouth daily. 90 Tab 3 03/03/2019 11/17/2019 documented in this encounter Miscellaneous Notes * Telephone Encounter - Pema Cordoba RN - 03/03/2019 0927 EST Calling patient 03/03/19 9:[address] Nuñez's message : Unable to reach patient. Left detailed message including Dr. Nuñez's message. Patient instructed to call back. PEMA DRISCOLL RN 03/03/2019 9:28 * Telephone Encounter - Carlos Nuñez DO - 03/03/2019 0837 EST Please contact patient via phone. I reviewed her most recent thyroid function test obtained on 03/02/2019. Her TSH is now elevated at 11.5 with a free T4 1.2. I would like her to increase her levothyroxine to 175 mcg daily. She should repeat TSH and free T4 in 6 weeks documented in this encounter Plan of Treatment Not on file documented as of this encounter Goals Goal Patient Goal Type Associated Problems Recent Progress Patient-Stated? Author Weight Loss General Obesity, Class III, BMI 40-49.9 (morbid obesity) No Marva Hitchcock Note: Increased activity getting out doors with daughter documented as of this encounter Results * TSH (05/05/2019 14:12 EST) TSH 3.83 0.47 - 4.68 uIU/mL 05/05/2019 20:37 EST [facility] Blood VENOUS BLOOD / Unknown Venipuncture / Unknown 05/05/2019 14:12 EST 05/05/2019 14:12 EST Narrative [facility] - 05/05/2019 20:37 EST The results of this assay can be falsely lowered due to the consumption of Biotin. Carlos Fengmyra Nuñez DO CHEMISTRY & BL OOD GAS ORDERABLES Performing Organization Address City/[facility]/ZIP Co de Phone Number [facility] [address] [place] [address] * T4 FREE (05/05/2019 14:12 EST) T4, Free 1.4 0.8 - 2.2 ng/dL 05/05/2019 20:23 EST [facility] Blood VENOUS BLOOD / Unknown Venipuncture / Unknown 05/05/2019 14:12 EST 05/05/2019 14:12 EST Carlos Carringtonjulianne DO CHEMISTRY & BL OOD GAS ORDERABLES [facility] [address] [place] [address] documented in this encounter Visit Diagnoses Diagnosis Hypothyroidism, postablative- Primary Other postablative hypothyroidism documented in this encounter Discontinued Medications Medication Sig Discontinue Reason Start Date End Da te levothyroxine (SYNTHROID) 150 mcg tablet Take 1 Tab by mouth daily. Dose adjustment 11/16/2018 03/03/2019 documented as of this encounter Care Teams School Plant Consultant Relationship Specialty Start Date End Date Marva Hitchcock MD [address] [place] [phone] PCP - General 06/03/17 06/28/20 documented as of this encounter
--- OUTSIDE RECORDS SUMMARY | 2023-12-04 20:17 | XMS_ITS | Encounter Summary ---
Author Organization [facility] Address [address] [place] [address] Care Team Providers Care Dice Table Operator Name Role Phone Marva Hitchcock MD Primary Care Provider Reason for Visit * Reason Onset Date Comments Results 11/23/2017 Encounter Details Date Type Department Care Team (Late st Contact Info) Description 11/23/[address] [phone] Marva Hitchcock MD [address] [place] [phone] Results Social History Tobacco Use Types Packs/Day [...] Dispensed Refills Start Date End Da te metroNIDAZOLE 1.3 % gel Place 1 Tube vaginally once for 1 dose. 5 g 11/23/2017 07/12/2018 documented in this encounter Miscellaneous Notes * Telephone Encounter - Marva Hitchcock - 11/23/2017 1649 EDT Called patient. Mailbox full. Seen at [facility]. Culture positive for bv. Will send metrogel vag cream to pharmacy for her to use for 1 day given symptoms at urgent care. If patient is breast feeding then she should pump and dump for one day. Lowerrisk of systemic absorption but unclear if it causes harms in infants. Follow up if not improving. Marva Hitchcock MD documented in this encounter Plan of Treatment Not on file documented as of this encounter Visit Diagnoses Not on filedocumented in this encounter Care Teams Dice Table Operator Relationship Specialty Start Date End Date Marva Hitchcock MD [address] [place] [phone] PCP - General 06/03/17 06/28/20 documented as of this encounter
--- OUTSIDE RECORDS SUMMARY | 2023-12-04 20:17 | XMS_ITS | Encounter Summary ---
Author Organization [facility] Address [address] [place] [address] Care Team Providers Care Mailing Specialist Name Role Phone Marva Hitchcock MD Primary Care Provider [phone] Reason for Visit * Reason Comments Family History Of Genetic Disease Encounter Details Date Type Department Care Team (Late st Contact Info) Description 01/06/2019 11:00 EST Office Visit [facility] Clinical Genetics [facility] [address] [place], [place] [phone] Marci Power, MS [address] [facility] [place] [address] Family history of congenital or genetic condition (Primary Dx); Testing for genetic disease carrier status; Encounter for procreative genetic counseling Social History Tobacco Use Types Packs/Day [...] No 09/29/2017 documented as of this encounter Progress Notes * Marci Power, MS - 01/06/2019 1100 EST [facility] CLINICAL GENETICS PROGRAM CONSULTATION: 01/06/19 Tiny Cline is a 23 year old female who is seen at the request of Dr. Hitchcock for genetic counseling to review her results from genetic testing. Tiny was initially seen on 09/30/18 for genetic counseling-please refer to note for family and health history. Her mother and 16 month old daughter were present for the session. Her mother was given copies of a family letter regarding genetic testing.She plans to share the letter with family members. The results from genetic testing were reviewed and a copy was given to Tiny. 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 The USH2A p.[id number] Phe:c.2276G>T mutation was not identified. 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 In the future, if she is considering another , her partner might consider carrier screening for both conditions If they are both carriers for either or both condtions, then they would have a 25% chance to have a child with that particular condition they are both carriers for. We also discussed that is not recommended to screen her daughter for her carrier status now. It was suggested to let her decide as an adult whetheror not she would like to know her carrier status. Tiny mentioned that her [id number] is . Genetic counseling is recommended for her. A total of 30 minutes was spent in face to face time with the patient and 30 minutes of that time was spent counseling the patient about her genetic test results. This patient was seen under th supervision of Dr. Dee De La Cruz, who reviewed the case and was available for further consultation or questions at the time of the visit. Marci Power MS Genetic Counselor Dee De La Cruz MD Director Electronically signed by Dee De La Cruz MD Cc: Dr. Jono Hitchcock documented in this encounter Plan of Treatment Not on file documented as of this encounter Goals Goal Patient Goal Type Associated Problems Recent Progress Patient-Stated? Author Weight Loss General Obesity, Class III, BMI 40-49.9 (morbid obesity) No Marva Hitchcock Note: Increased activity getting out doors with daughter documented as of this encounter Visit Diagnoses Diagnosis Family history of congenital or genetic condition- Primary Family history of congenital anomalies Testing for genetic disease carrier status Other investigation and testing for procreative management Encounter for procreative genetic counseling documented in this encounter Care Teams Mailing Specialist Relationship Specialty Start Date End Date Marva Hitchcock MD [address] [place] [phone] PCP - General 06/03/17 06/28/20 documented as of this encounter
--- OUTSIDE RECORDS SUMMARY | 2023-12-04 20:17 | XMS_ITS | Encounter Summary ---
Author Organization [facility] Address [address] [place] [address] Care Team Providers Care Radiological Defense Officer Name Role Phone Marva Hitchcock MD Primary Care Provider Reason for Visit * Reason Onset Date Comments Medications Refill 10/04/2018 Encounter Details Date Type Department Care Team (Late st Contact Info) Description 10/04/[address] [id number] Marva Hitchcock MD [address] [place] [address] [phone] Medications Refill Social History Tobacco Use Types [...] TABLET BY MOUTH EVERY 12 hours 10 Tab 1 10/05/2018 11/21/2018 documented in this encounter Miscellaneous Notes * Telephone Encounter - Keira Montez RN - 10/05/2018 0737 EDT Medication(s) Requested: Valtrex 500 mg on 07/05/18 for 10 with 1 refill Preferred Pharmacy: [facility] Is patient out of medication? Unknown Last Refill Date: See above Last Visit Date with Ordering Provider: 07/12/18 Next Non-Acute Visit Date Scheduled with Care Team: Yes. 10/28/18 Keira Montez RN 10/05/2018 7:37 * Telephone Encounter - Keira Montez RN - 10/05/2018 0736 EDTFrom: Tiny Cline Sent: 10/04/2018 23:53 EDT Subject: Medication Renewal Request Tiny Cline would like a refill of the following medications: valACYclovir (VALTREX) 500 mg tablet [Marva Hitchcock MD] Preferred pharmacy: [id number] [place] [facility] [address] documented in this encounter Plan of Treatment [...] TABLET BY MOUTH EVERY 12 hours Reorder 07/05/2018 10/04/2018 documented as of this encounter Care Teams Radiological Defense Officer Relationship Specialty Start Date End Date Marva Hitchcock MD [address] [place] [phone] PCP - General 06/03/17 06/28/20 documented as of this encounter
--- OUTSIDE RECORDS SUMMARY | 2023-12-04 20:17 | XMS_ITS | Encounter Summary ---
Author Organization [facility] Address [address] [place] [address] Care Team Providers Care Workers Compensation Claims Adjuster Name Role Phone Marva Hitchcock MD Primary Care Provider [phone] Unknown, Provider Primary Care Provider Camilla Jiang MD Primary Care Provider [phone] Danyel Forde DO Primary Care Provider + Danyle Forde DO Primary Care Provider + Ayla Solomon DO Primary Care Provider [phone] Encounter Details Date Type Department Care Team (Late st Contact Info) Description 02/10/2019 Lab Requisition [facility] Pathology & Laboratory Medicine - [facility] [address] [place] [address] Unknown, Provider, Social History Tobacco Use Types Packs/Day Years [...] Comments CHLAMYDIA/N. GONORRHOEAE AMPLIFIED NUCLEIC ACID Routine 02/10/2019 9:00 EST documented in this encounter Results * CHLAMYDIA/N. GONORRHOEAE AMPLIFIED RNA (02/10/2019 9:00 EST) Neisseria gonorrhoeae Result Negative Negative 02/13/2019 14:20 EST [facility] Chlamydia trachomatis Result Negative Negative 02/13/2019 14:20 EST [facility] Swab ENTIRE VAGINA / Unknown 02/10/2019 9:00 EST 02/10/2019 18:38 EST Provider Unknown MICROBIOLOGY - GENER AL ORDERABLES [facility] [address] [place] [address] documented in this encounter Visit Diagnoses Not on filedocumented in this encounter Additional Health Concerns Infection Onset Date Last Indicated Resolved Time COVID-19 07/14/2021 07/14/202107/2507/25/2021 22:1 6 EDT documented as of this encounter Care Teams Workers Compensation Claims Adjuster Relationship Specialty Start Date End Date Marva Hitchcock MD [address] [place] [phone] PCP - General 06/03/17 06/28/20 Unknown, Provider, PCP - General 06/29/20 08/01/20 Camilla Jiang MD [address] [place] [address] [phone] PCP - General Family Medicine - Primary Care 08/02/20 08/27/20 Danyel Forde DO [address] [place] [address] [phone] PCP - General Family Medicine - Primary Care 08/29/20 04/11/21 Danyel Forde DO [address] [place] [address] [phone] PCP - General 08/28/20 08/28/20 Ayla Solomon DO [address] [place] [address] DR Mcdaniel [address] [place] [phone] PCP - General General Surgery 04/12/21 documented as of this encounter
--- OUTSIDE RECORDS SUMMARY | 2023-12-04 20:17 | XMS_ITS | Encounter Summary ---
Author Organization [facility] Address [address] [place] [address] Care Team Providers Care Hr Receptionist Name Role Phone Marva Hitchcock MD Primary Care Provider [phone] Reason for Visit * Reason Comments Post- Care Encounter Details Date Type Department Care Team (Late st Contact Info) Description 09/20/2017 11:15 EDT Office Visit [facility] OBGYN Services - [address] [phone] Shannan Rodríguez NP [address], [address] [place] [phone] Gynecologic exam normal (Primary Dx); Routine follow-up Discharge Disposition: Auto Discharge Social History Tobacco [...] Sign Reading Time Taken Comments Blood Pressure 116/80 09/20/2017 1129 EDT Pulse - - Temperature - - [...] visiting a doctor's office or shopping? No 09/20/2017 Cognitive Status Response Date of Assessm ent Because of a physical, menta l, or emotional condition, does this person have serious difficulty concentrating, remembering, or making decisions? No 09/20/2017 documented as of this encounter Discharge Diagnoses Diagnosis Z01.419 Encounter for gynecological examination (general) (routine) without abnormal findings-Z01.419[ICD-10-CM] Z39.2 Encounter for routine [id number][ICD-10-CM] documented in this encounter Discharge Disposition Disposition Code Departure Means Destination Auto Discharge documented in this encounter Progress Notes * Shannan Rodríguez, KARTHIKEYAN - 09/20/2017 1618 EDT Tiny Cline is a 21 y.o. G/P female who presents 6 week(s) post following a on 08/08/2017 - [facility]. Epidural and 1st degree perineal laceration and labial lac repaired. Anesthesia: Epidural. course has been uncomplicated Baby's course has been some feeding problems. Baby is feeding Mostly breastmilk - some formula Current Status: Bleeding: moderate lochia. Bowel function is normal. Bladder function is normal incontinence? depression screening: negative. EPDS = 10 Patient is not sexually active. Contraception method is oral progesterone-only contraceptive. Returning to work: Yes, family/social support is good I have fully reviewed the and intrapartum course, delivery events, and above subjective information. Additional provider comments none. Medical History on file. Past Medical History: Diagnosis Date ??? ADD (attention deficit disorder) ??? Asthma, exercise induced ??? 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 Depression was taking meds (can't remember what), stopped in 07/2016, no counselor ??? Herpes simplex virus (HSV) infection ??? Mood disorder ([facility]) ??? Thyroid disease No current outpatient prescriptions on file. Allergies: Allergies Allergen Reactions ??? Lorabid [Loracarbef] Nausea And Vomiting ??? Yeast, Dried Nausea And Vomiting If consumes large amounts will develop N/V Review of Systems Pertinent items are noted in Subjective/HPI Objective: BP 116/80 LMP 10/29/2016 ? Yes General: alert, cooperative, no distress Breasts: Lactating, Nipples intact Lungs: NE Heart: NE Abdomen: Soft NT No palp mass Vulva: Well healed Vagina: Dark bloody D/C, nl mucus membranes Cervix: -CMT Parous os Thin prep done Corpus: avg Mid NT Adnexa: NT No palp mass Rectal Exam: Visually normal, internal deferred Assessment: Normal exam. POPs Plan: 1. Contraception:POPs 2. Thin prep done - may be too bloody 3. Follow up: prn documented in this encounter Plan of Treatment Scheduled Orders Name Type Priority Associated Diagnoses Orde r Schedule PAP TEST- ORDER ONLY Pathology Routine Gynecologic exam normal Ordered: 09/20/2017 documented as of this encounter Visit Diagnoses Diagnosis Gynecologic exam normal- Primary Routine follow-up documented in this encounter Discontinued Medications Medication Sig Discontinue Reason Start Date End Da te acetaminophen (TYLENOL) 325 mg tablet Take 2 Tabs by mouth every 4 hours as needed for Pain. 08/10/2017 09/20/2017 documented as of this encounter Care Teams Hr Receptionist Relationship Specialty Start Date End Date Marva Hitchcock MD [address] [place] [phone] PCP - General 06/03/17 06/28/20 documented as of this encounter
--- OUTSIDE RECORDS SUMMARY | 2023-12-04 20:17 | XMS_ITS | Encounter Summary ---
Author Organization [facility] Address [address] [place] [address] Care Team Providers Care Electric Shovel Operator Name Role Phone Marva Hitchcock MD Primary Care Provider Reason for Visit * Reason Onset Date Comments Medications Refill 04/06/2018 Encounter Details Date Type Department Care Team (Late st Contact Info) Description 04/06/2018 Refill [facility] Endocrinology - [facility] [address] [place] [address] Carlos Nuñez, [address] [facility] [address] [place] [phone] Medications Refill Social History Tobacco [...] postablative Take 1 Tab by mouth daily. 90 Tab 1 04/07/2018 10/26/2018 documented in this encounter Miscellaneous Notes * Telephone Encounter - Evan Perez RN - 04/07/2018 1004 ESTFrom: Tiny Cline Sent: 04/06/2018 11:12 EST Subject: Medication Renewal Request Tiny Cline would like a refill of the following medications: levothyroxine (SYNTHROID) 175 mcg tablet [Carlos Nuñez, DO] Preferred pharmacy: [facility] - [place], [place] - [address] [place] [address] documented in this encounter Plan of Treatment Not on file documented as of this encounter Visit Diagnoses Diagnosis Hypothyroidism, postablative- Primary Other postablative hypothyroidism documented in this encounter Discontinued Medications Medication Sig Discontinue Reason Start Date End Da te levothyroxine (SYNTHROID) 175 mcg tabletIndications:Hypothyr oidism, postablative Take 1 Tab by mouth daily. Reorder 07/07/2017 04/06/2018 documented as of this encounter Care Teams Electric Shovel Operator Relationship Specialty Start Date End Date Marva Hitchcock MD [address] [place] [phone] PCP - General 06/03/17 06/28/20 documented as of this encounter
--- OUTSIDE RECORDS SUMMARY | 2023-12-04 20:17 | XMS_ITS | Encounter Summary ---
Author Organization [facility] Address [address] [place] [address] Care Team Providers Care Drilling Superintendent Name Role Phone Marva Hitchcock MD Primary Care Provider Encounter Details Date Type Department Care Team (Late st Contact Info) Description 11/10/2018 16:00 EDT - 11/10/2018 16:05 EDT Hospital Encounter [facility] [address] [place] [address] Dee De La Cruz MD [address] [place] [phone] Discharge Disposition: Home or Self Care Social [...] as of this encounter Discharge Diagnoses Diagnosis Z84.89 Family history of other specified conditions-Z84.89[ICD-10-CM] Z31.5 Encounter for procreative genetic counseling-Z31.5[ICD-10-CM] Z13.79 Encounter for other screening for genetic and chromosomal anomalies-Z13.79[ICD-10-CM] Z82.79 Family history of other congenital malformations, deformations and chromosomal abnormalities-Z82.79[ICD-10-CM] documented in this encounter Medications at Time of Discharge Medication Sig Dispensed Refills Start Date End Date albuterol 90 mcg/actuation inhalerIndications:Mild intermittent asthma without complication Inhale 2 Puffs as directed every 4 hours as needed for Wheezing. 1 Inhaler 11 08/24/2018 09/13/2019 drospirenone-ethinyl estradiol (ZACH, 28,) 3-0.02 mg per tablet Take 1 Tab by mouth daily for 336 days. 28 Tab 11 07/12/2018 03/02/2019 levothyroxine (SYNTHROID) 175 mcg tabletIndications:Hypoth yroidism, postablative Take 1 Tab by mouth daily. 90 Tab 1 10/28/2018 11/16/2018 traMADol (ULTRAM) 50 mg tablet Take 1 Tab by mouth 2 times daily as needed for Pain (breakthrough pain). Daily Max: 100 mg 4 Tab 10/28/2018 03/02/2019 valACYclovir (VALTREX) 500 mg tabletIndications:PCR DNA positive for HSV1 TAKE ONE TABLET BY MOUTH EVERY 12 hours 10 Tab 1 10/05/2018 11/21/2018 documented as of this encounter Discharge Disposition [...] Procedure Name Priority Date/Time Associated Diagnosis Comments PATHOLOGY - SCANNED 01/02/2019 16:31 EST documented in this encounter Results * PATHOLOGY - SCANNED (01/02/2019 16:31 EST) 01/02/2019 16:3 1 EST Scan 2 Charge Weigher LAB INFO SERVICE AN D SUPPORT & PHONE RESULT documented in this encounter Visit Diagnoses Not on filedocumented in this encounter Care Teams Drilling Superintendent Relationship Specialty Start Date End Date Marva Hitchcock MD [address] [place] [phone] PCP - General 06/03/17 06/28/20 documented as of this encounter
--- OUTSIDE RECORDS SUMMARY | 2023-12-04 20:17 | XMS_ITS | Encounter Summary ---
Author Organization [facility] Address [address] [place] [address] Care Team Providers Care University Controller Name Role Phone Marva Hitchcock MD Primary Care Provider Reason for Visit * Reason Onset Date Comments Medications Refill 05/10/2018 Encounter Details Date Type Department Care Team (Late st Contact Info) Description 05/10/[address] [phone] Marva Hitchcock MD [address] [place] [phone] Medications Refill Social History Tobacco Use Types [...] MOUTH EVERY 12 hours 2 tablet 1 05/11/2018 05/24/2018 documented in this encounter Miscellaneous Notes * Telephone Encounter - Keira Montez RN - 05/11/2018 075 EDT Medication(s) Requested: Valtrex 500 mg on 01/18/18 20 with 0 refills Preferred Pharmacy: [facility] Is patient out of medication? Unknown Last Refill Date: See above Last Visit Date with Ordering Provider: 09/29/17 Next Non-Acute Visit Date Scheduled with Care Team: Yes. 05/24/18. Keira Montez RN 05/11/2018 7:51 * Telephone Encounter - Keira Montez RN - 05/11/2018 0751 EDTFrom: Tiny Cline Sent: 05/10/2018 20:40 EDT Subject: Medication Renewal Request Tiny Cline would like a refill of the following medications: valACYclovir (VALTREX) 500 mg tablet [Marva Hitchcock MD] Preferred pharmacy: [facility] - [facility] [place] - [address] documented in this encounter Plan of Treatment [...] TABLET BY MOUTH EVERY 12 hours Reorder 01/18/2018 05/10/2018 documented as of this encounter Care Teams University Controller Relationship Specialty Start Date End Date Marva Hitchcock MD [address] [place] [phone] PCP - General 06/03/17 06/28/20 documented as of this encounter
--- OUTSIDE RECORDS SUMMARY | 2023-12-04 20:17 | XMS_ITS | Encounter Summary ---
Author Organization [facility] Address [address] [place] [address] Care Team Providers Care Nurse Private Duty Name Role Phone Marva Hitchcock MD Primary Care Provider Encounter Details Date Type Department Care Team (Late st Contact Info) Description 12/31/2017 Phlebotomy Only [facility] [place] [address] [place] [address] Riding Instructor, Outpatient Hypothyroidism, postablative (Primary Dx) Social History [...] No 09/29/2017 Cognitive Status Response Date of Assess ent Because of a physical, menta l, or emotional condition, does this person have serious difficulty concentrating, remembering, or making decisions? No 09/29/2017 documented as of this encounter Plan of Treatment Not on file documented as of this encounter Procedures Procedure Name Priority Date/Time Associated Diagnosis Comments TSH Routine 12/31/2017 12:36 EDT Hypothyroidism, postablative T4 FREE Routine 12/31/2017 12:36 EDT Hypothyroidism, postablative documented in this encounter Results * T4 FREE (12/31/2017 12:36 EDT) T4, Free 0.9 0.8 - 2.2 ng/dl 12/31/2017 14:10 EDT [facility] Blood specimen (specimen) BLOOD SPECIMEN / Unknown 12/31/2017 12:36 EDT 12/31/2017 13:27 EDT Carlos Nuñez DO CHEMISTRY & BL OOD GAS ORDERABLES Performing Organization Address City/[facility] Co de Phone Number [facility] [address] [place] [address] * (ABNORMAL) TSH (12/31/2017 12:36 EDT) TSH 27.60(H) 0.47 - 4.68 uIU/ml 12/31/2017 14:25 EDT [facility] Comment: The results of this assay can be falsely lowered due to the consumption of Biotin. Blood specimen (specimen) BLOOD SPECIMEN / Unknown 12/31/2017 12:36 EDT 12/31/2017 13:27 EDT Carlos Nuñez DO CHEMISTRY & BL OOD GAS ORDERABLES Performing Organization Address [facility] Co de Phone Number [facility] [address] [place] [address] documented in this encounter Visit Diagnoses Diagnosis Hypothyroidism, postablative- Primary Other postablative hypothyroidism documented in this encounter Care Teams Nurse Private Duty Relationship Specialty Start Date End Date Marva Hitchcock MD [address] [place] [phone] PCP - General 06/03/17 06/28/20 documented as of this encounter
--- OUTSIDE RECORDS SUMMARY | 2023-12-04 20:17 | XMS_ITS | Encounter Summary ---
Author Organization [facility] Address [address] [place] [address] Care Team Providers Care Chief Enterprise Architect Name Role Phone Marva Hitchcock MD Primary Care Provider [phone] Reason for Visit * Reason Comments Annual Exam Encounter Details Date Type Department Care Team (Late st Contact Info) Description 09/29/2017 11:00 EDT Office Visit [address] [phone] Marva Hitchcock MD [address] [place] [address] [phone] Mild intermittent asthma without complication (Primary Dx); Dysthymia; Hypothyroidism, postablative; Graves' disease Social History Tobacco Use Types [...] Sign Reading Time Taken Comments Blood Pressure 102/68 09/29/2017 1104 EDT Pulse 88 09/29/2017 1104 EDT Temperature - - Respiratory Rate - - Oxygen Saturation - - Inhaled Oxygen Concentration - - Weight 103.9 kg (229 lb) 09/29/2017 1104 EDT Height 160 cm (5' 3) 09/29/2017 1104 EDT Body Mass Index 40.57 09/29/2017 1104 EDT documented in this encounter Functional Status [...] No 09/29/2017 documented as of this encounter Patient Instructions * Patient Instructions* Marva Hitchcock - 09/29/2017 11:37 EDT Images from the original note were not included. [facility] Patient Instructions Low Back Pain: Exercises Your Care Instructions Here are some examples of typical rehabilitation exercises for your condition. Start each exercise slowly. Ease off the exercise if you start to have pain. Your doctor or physical therapist will tell you when you can start these exercises and which ones will work best for you. How to do the exercises Press-up 1. Lie on your stomach, supporting your body with your forearms. 2. Press your elbows down into the floor to raise your upper back. As you do this, relax your stomach muscles and allow your back to arch without using your back muscles. As your press up, do not letyour hips or pelvis come off the floor. 3. Hold for 15 to 30 seconds, then relax. 4. Repeat 2 to 4 times. Alternate arm and leg (bird dog) exercise Do this exercise slowly. Try to keep your body straight at all times, and do not let one hip drop lower than the other. 1. Start on the floor, on your hands and knees. 2. Tighten your belly muscles. 3. Raise one leg off the floor, and hold it straight out behind you. Be careful not to let your hipdrop down, because that will twist your trunk. 4. Hold for about 6 seconds, then lower your leg and switch to the other leg. 5. Repeat 8 to 12 times on each leg. 6. Over time, work up to holding for 10 to 30 seconds each time. 7. If you feel stable and secure with your leg raised, try raising the opposite arm straight out infront of you at the same time. Jhcs-is-dgakn exercise 1. Lie on your back with your knees bent and your feet flat on the floor. 2. Bring one knee to your chest, keeping the other foot flat on the floor (or keeping the other legstraight, whichever feels better on your lower back). 3. Keep your lower back pressed to the floor. Hold for at least 15 to 30 seconds. 4. Relax, and lower the knee to the starting position. 5. Repeat with the other leg. Repeat 2 to 4 times with each leg. 6. To get more stretch, put your other leg flat on the floor while pulling your knee to your chest. Pelvic tilt exercise 1. Lie on your back with your knees bent. 2. Brace your stomach. This means to tighten your muscles by pulling in and imagining your belly button moving toward your spine. You should feel like your back is pressing to the floor and your hips and pelvis are rocking back. 3. Hold for about 6 seconds while you breathe smoothly. 4. Repeat 8 to 12 times. Heel dig bridging 1. Lie on your back with both knees bent and your ankles bent so that only your heels are digging into the floor. Your knees should be bent about 90 degrees. 2. Then push your heels into the floor, squeeze your buttocks, and lift your hips off the floor until your shoulders, hips, and knees are all in a straight line. 3. Hold for about 6 seconds as you continue to breathe normally, and then slowly lower your hips back down to the floor and rest for up to 10 seconds. 4. Do 8 to 12 repetitions. Hamstring stretch in doorway 1. Lie on your back in a doorway, with one leg through the open door. 2. Slide your leg up the wall to straighten your knee. You should feel a gentle stretch down the back of your leg. 3. Hold the stretch for at least 15 to 30 seconds. Do not arch your back, point your toes, or bend either knee. Keep one heel touching the floor and the other heel touching the wall. 4. Repeat with your other leg. 5. Do 2 to 4 times for each leg. Hip flexor stretch 1. Kneel on the floor with one knee bent and one leg behind you. Place your forward knee over your foot. Keep your other knee touching the floor. 2. Slowly push your hips forward until you feel a stretch in the upper thigh of your rear leg. 3. Hold the stretch for at least 15 to 30 seconds. Repeat with your other leg. 4. Do 2 to 4 times on each side. Wall sit 1. Stand with your back 10 to 12 inches away from a wall. 2. Lean into the wall until your back is flat against it. 3. Slowly slide down until your knees are slightly bent, pressing your lower back into the wall. 4. Hold for about 6 seconds, then slide back up the wall. 5. Repeat 8 to 12 times. Follow-up care is a pringle part of your treatment and safety. Be sure to make and go to all appointments, and call your doctor if you are having problems. It's also a good idea to know your test resultsand keep a list of the medicines you take. Where can you learn more? Go to [email or web address].net/[email or web address] or log into your [employer] account at [email or web address]. Enter Z938 in the search box to learn more about Low Back Pain: Exercises. Current as of: January 27, 2017 Content Version: 11.6 ?? [id number] [employer]. Care instructions adapted under license by [facility] If you have questions about a medical condition or this instruction, always ask your healthcare professional. [employer] disclaims any warranty or liability foryour use of this information. documented in this encounter Progress Notes * Marva Hitchcock - 09/29/2017 1100 EDT PROGRESS NOTE Chief Complaint Patient presents with ??? Annual Exam HPI: Tiny, 22 y.o. is here for annual examination. Patient has history of hypothyroidism and Graves' disease she recently had a baby girl. She's reports overall she's doing well. She reports she'sbeing followed by [facility] where she underwent her Pap smear and came back down on her thyroid medication. She has follow up in 6 weeks for dosage check. She is currently breast-feeding and using the minipill. Reports she has a history of asthma exercise-induced and cold-induced. Denies using her inhaler at this time. States she only uses it for prior to exercise. Depression - reports she's been hospitalized when she was 10 years old. Denies any acute exacerbations. Reports she has good support system with her and mother. Low back - denies any numbness, tingling. Denies any history of kidney stones. Takes valtrex as needed. Reports last outbreak while back. Taking it every day while . Stopped daily usage just using as needed currently. ROS: 10 Systems reviewed found to be negative except as above. Patient Active Problem List Diagnosis ??? Acanthosis nigricans ??? Vitamin D deficiency ??? Status post radioactive iodine thyroid ablation ??? PCR DNA positive for HSV1 ??? Hypothyroidism, postablative ??? Closed fracture of nasal bone ??? Depression ??? Tobacco dependence ??? Graves' disease ??? Autoimmune disorder (HCC-CMS) [...] Disease in her father and another familymember. There is no history of Infertility or Heart Attack Under 50. reports that she has quit smoking. Her smoking use included Cigarettes. She has a 2.50 pack-year smoking history. She has never used smokeless tobacco. She reports that she does not drink alcohol or use illicit drugs. Current Outpatient Prescriptions Medication Sig Dispense Refill ??? albuterol 90 mcg/actuation inhaler Inhale 2 Puffs as directed every 4 hours as needed for Wheezing. (Patient not taking: Reported on 07/26/2017) 1 Inhaler 11 ??? DOCOSAHEXANOIC ACID/EPA (FISH OIL ORAL) Take by mouth. ??? docusate sodium (COLACE) 100 mg capsule Take 1 Cap by mouth 2 times daily as needed for Constipation. (Patient not taking: Reported on 09/29/2017) ??? ibuprofen (MOTRIN) 400 mg tablet Take 1 Tab by mouth every 4 hours as needed for Pain. ??? levothyroxine (SYNTHROID) 175 mcg tablet Take 1 Tab by mouth daily. (Patient taking differently: Take 200 mcg by mouth daily. ) 90 Tab 1 ??? norethindrone (MICRONOR) 0.35 mg tablet Take 1 Tab by mouth daily. 84 Tab 4 ??? VITS62/FA/OM3/DHA/EPA ( GUMMY ORAL) Take by mouth. No current facility-administered medications for this visit. Allergies Allergen Reactions ??? Lorabid [Loracarbef] Nausea And Vomiting ??? Yeast, Dried Nausea And Vomiting If consumes large amounts will develop N/V PE: BP 102/68 Pulse 88 Ht 160 cm (63) Wt (!) 103.9 kg (229 lb) BMI 40.57 kg/m2 General NAD alert and oriented ??3 Mood: reports normal affect is appropriate. She makes eye contact answers questions appropriately not flat. HEENT: head normocephalic eyes EOMI sclera normal hearing grossly intact Neck: No anterior posterior lymphadenopathy. No thyromegaly Respiratory: normal respiratory effort bilaterally. CTA bilaterally Cardiovascular: S1-S2 no murmurs rubs or gallops Abdomen: soft nontender positive bowel sounds Skin: intact no signs of infection Extremities: she is full range of motion in her upper and lower extremities Negative straight leg raise. She has full range motion to hip internal/external rotation. Good range of motion to back flexion extension. Pain is along the paraspinal muscles of the lower back bilaterally. Negative stork sign Assessment: Plan: 1) Preventative Health Care - Pap smears done in [facility] will follow-up with results. Overall doing well no partial blues or depression. Continue to keep well-balanced diet and remain active. Increasing weight-based exercise. Discussed naming healthcare proxy Follow-up with a dentist Immunizations updated 2) Low back pain - discussed importance of exercises given handout follow-up if not improving 3) Asthma well controlled continue on albuterol as needed prior to exercise or cold asthma action plan created today follow-up in one year as needed Marva Hitchcock MD documented in this encounter Plan of Treatment Not on file documented as of this encounter Visit Diagnoses Diagnosis Mild intermittent asthma without complication- Primary Unspecified asthma Dysthymia Dysthymic disorder Hypothyroidism, postablative Other postablative hypothyroidism Graves' disease Toxic diffuse goiter without mention of thyrotoxic crisis or storm documented in this encounter Discontinued Medications Medication Sig Discontinue Reason Start Date End Da te DOCOSAHEXANOIC ACID/EPA (FISH OIL ORAL) Take by mouth. 09/29/2017 docusate sodium (COLACE) 100 mg capsule Take 1 Cap by mouth 2 times daily as needed for Constipation. 08/10/2017 09/29/2017 documented as of this encounter Care Teams Chief Enterprise Architect Relationship Specialty Start Date End Date Marva Hitchcock MD [address] [place] [address] [phone] PCP - General 06/03/17 06/28/20 documented as of this encounter
--- OUTSIDE RECORDS SUMMARY | 2023-12-04 20:17 | XMS_ITS | Encounter Summary ---
Author Organization [facility] Address [address] [place] [address] Care Team Providers Care Financial Associate Name Role Phone Marva Hitchcock MD Primary Care Provider Reason for Referral * Consult (Routine) - Specialty Report Received Specialty Diagnoses / Procedures Referred By Contact Referred To Contact Obstetrics & Gynecology Diagnoses Supervision of normal first , antepartum Sridevi Perez NP CNM [address] [phone] [place] [address] Obgyn [address] [place] [address] Referral ID Status Reason Start Date Expiration Date Visits Requested Visits Authorized [id number] Specialty Report Received Specialty Services Required 08/10/2017 1 1 Question Answer Reason for Request: 2 week visit with ROSENDO at [facility] Scheduling Comments (optional ? describe specific scheduling needs if applicable): in 2 weeks Expected Discharge Date (Inpatient Only): 08/10/2017 * (Routine) - Receiving Office to Obtain Authorization Specialty Diagnoses / Procedures [facility] Referred To Contact Sridevi Perez NP CNM [address] [phone] Referral ID Status Reason Start Date Expiration Date Visits Requested Visits Authorized [id number] Receiving Office to Obtain Authorization Specialty Services Required 8 1 1 Comments See your surveillance operator in 2 weeks. Please call for an appointment. Reason for Visit * Reason Comments Contractions 0500 Encounter Details Date Type Department Care Team ([facility] Contact Info) Description 08/08/2017 11:53 EDT - 08/10/2017 17:16 EDT Hospital Encounter [facility] [address] [place] [address] Balbina Rivas MD [address] [place] [id number] Tracey Mccray MD [address] [facility] [address] [place] [phone] Supervision of normal first , antepartum (Primary Dx) Discharge Disposition: Home or Self [...] Sign Reading Time Taken Comments Blood Pressure 126/77 08/10/2017 1535 EDT Pulse - - Temperature 37 ??C (98.6 ??F) 08/10/2017 1535 EDT Respiratory Rate 18 08/10/2017 1535 EDT Oxygen Saturation 98% 08/10/2017 1535 EDT Inhaled Oxygen Concentration - - Weight 118 kg (260 lb 2.3 oz) 08/08/2017 1231 ED T Height 158 cm (5' 2.21) 08/08/2017 1231 EDT Body Mass Index 47.27 08/08/2017 1231 EDT documented in this encounter Functional Status [...] No 08/08/2017 documented as of this encounter Discharge Diagnoses Diagnosis O70.0 First degree perineal laceration during delivery-O70.0[ICD-10-CM] Z3A.40 40 weeks gestation of -Z3A.40[ICD-10-CM] Z37.0 Single live -Z37.0[ICD-10-CM] O77.0 Labor and delivery complicated by meconium in amniotic fluid-O77.0[ICD-10-CM] O99.284 Endocrine, nutritional and metabolic diseases complicating childbirth-O99.284[ICD-10-CM] E03.9 Hypothyroidism, unspecified-E03.9[ICD-10-CM] B00.9 Herpesviral infection, unspecified-B00.9[ICD-10-CM] O99.52 Diseases of the respiratory system complicating childbirth-O99.52[ICD-10-CM] J45.909 Unspecified asthma, uncomplicated-J45.909[ICD-10-CM] documented in this encounter Discharge Summaries * Sridevi Perez CNM - 08/08/2017 1845 EDT Department of 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 arrived in active labor at 1120 VE at 1149 found to be 7 cm/100%/ -1 with BBOW; anesthesiology called and epidural placed and effective. Progressed well after AROM clear fluid. Feeling continuous pressure VE at 1635 found pt to be complete. Pushed well in various position with variable decels intermittently until live term female infantat 1743. 8#7oz Apgars 8/9 Placed immediately to maternal abdomen. Placenta delivered at ~ 15 min after with gentle cord traction and maternal effort complete and intact. EBL 200 cc. Perineum inspected and found 1st degree perineal and bilateral labial lacerations repaired with local anesthesia and 4-0 vicryl. The patient's course was uncomplicated. She obtained good pain control, tolerated a regular diet, was ambulating and voiding independently. Her lochia was within normal limits and she initiated . The patient was subsequently discharged on PPD# 2 with instructions to follow-up for routine care at 2 and 6 weeks. Thyroid function at 6 weeks; synthroid daily after 175 mcg. Hospital Problems: Active Hospital Problems Diagnosis Date Noted ??? *Supervision of normal first , antepartum 01/08/2017 Class: Temporary CNM [facility] Patient Partner's name: Carlos Bhatia BMI 37 HSV (on daily suppression) Hypothyroid s/p ablation for Grave's, managed by Joaquin LACY: TSH and Free T4 q 4 weeks Depression - no meds Asthma Subchorionic hemorrhage Dating: [based on LMP c/w 7w4d TVUS ] PN labs: Blood type O pos Lab Results Component Value Date HGB 14.1 06/01/2016 HCT 41.6 06/01/2016 PLT 328 06/01/2016 HIVAB Negative 01/19/2017 HEPBSAG Negative 01/19/2017 SYPH Interpretation: Nonreactive 01/27/2013 CHRES Negative 01/22/2017 GCRES Negative 01/22/2017 CULTRESULT Less than 10,000 CFU/ml Usual urogenital santi. 01/08/2017 External labs: 01/19/17: RPR Neg; Varicella immune; Rubella immune Pap: 08/2014 NILM repeat Early 1hr GTT [ 89 ] HSV [ YES ] Aneuploidy screening: [ Declines ] CF: [ neg ] Flu vaccine (): [02/19/17 ] Anatomy scan: [03/19/17 normal gender surprise, posterior placenta ] OGTT/CBC: [ , [id number], GTT 118 ] Tdap (after 28 wks): [ 05/13/17 ] Growth US if indicated for BMI, subchorionic hemorrhage: 28w [ 1166gm 25%, CHRISTI 17.8, ceph ] 32w [ 1946g 40%, CHRISTI 12.1, ceph] 36w [2716gm 43%, CHRISTI 13.0, ceph ] AP testing if indicated [ ] GBS: [ neg ] (Allergies?) VPMS Query [ ] Informed consent for opioids signed [ 07/08/17 ] Contraception plans/Tubal[ POP ] wishes [wants epidural ] Circ if boy [ n/a ] [facility] Allergies: Hydrocodone; Lorabid [loracarbef]; Vicodin [hydrocodone-acetaminophen]; and Yeast, dried Medications during current : Prescriptions Prior to Admission Medication Sig Dispense Refill Last Dose ??? albuterol 90 mcg/actuation inhaler Inhale 2 Puffs as directed every 4 hours as needed for Wheezing. (Patient not taking: Reported on 07/26/2017) 1 Inhaler 11 Not Taking ??? DOCOSAHEXANOIC ACID/EPA (FISH OIL ORAL) Take by mouth. Taking ??? levothyroxine (SYNTHROID) 175 mcg tablet Take 1 Tab by mouth daily. (Patient taking differently: Take 200 mcg by mouth daily. ) 90 Tab 1 Taking ??? VITS62/FA/OM3/DHA/EPA ( GUMMY ORAL) Take by mouth. 08/07/2017 at Unknown time ??? valACYclovir (VALTREX) 500 mg tablet TAKE ONE TABLET BY MOUTH EVERY 12 hours 60 Tab 1 08/08/2017at Unknown time LABOR INFORMATION Labor Onset: Spontaneous Labor Analgesia: Epidural, Amniotic Fluid Color: Clear Duration Rupture of Membranes: 0.00 hours 12.00 minutes DELIVERY INFORMATION Spontaneous Vaginal Delivery ; Delivery / Repair Anesthesia: Epidural, Local/Pudendal, EBL: 200.00 Placenta: Method: Controlled Cord Traction;Spontaneous Labor and Delivery Complications and/or Procedures: None INFORMATION Date: 08/08/2017 Time: 1743 Weight: 3834 g (8 lb 7.2 oz) Sex: female Apgars: 8 9 Immunizations indicated : None Clinical Issues Needing Follow-up: Thyroid function at 6 weeks; synthroid daily after 175 mcg Contraception Plan: Progesterone only pills Other: n/a Results Pending at Discharge: Test results still pending from this admission None Appointments Scheduled with [facility] in the Next 3 Months: Upcoming Appointments Sep 29, 2017 11:00 EDT Physical 1 with Marva Hitchcock MD [facility] (--) [address] [place] [id number] Follow-Up Appointments and Procedures Recommended to Patient: Follow-Up Labs and Tests: Discharge Medications: START taking these medications Sig acetaminophen 325 mg tablet Commonly known as: TYLENOL Take 2 Tabs by mouth every 4 hours as needed for Pain. docusate sodium 100 mg capsule Commonly known as: COLACE Take 1 Cap by mouth 2 times daily as needed for Constipation. ibuprofen 400 mg tablet Commonly known as: MOTRIN Take 1 Tab by mouth every 4 hours as needed for Pain. CONTINUE taking these medications Sig albuterol 90 mcg/actuation inhaler Inhale 2 Puffs as directed every 4 hours as needed for Wheezing. Quantity: 1 Inhaler FISH OIL ORAL Take by mouth. GUMMY ORAL Take by mouth. TAKE these medications PRESCRIBED. Do not change the dosage on your own. Call your health care provider if you have questions. Sig levothyroxine 175 mcg tablet Commonly known as: SYNTHROID Take 1 Tab by mouth daily. Quantity: 90 Tab STOP taking these medications valACYclovir 500 mg tablet Commonly known as: VALTREX Condition at Discharge: stable Discharge Disposition: home documented in this encounter Medications at Time of Discharge Medication Sig Dispensed Refills Start Date End Date acetaminophen (TYLENOL) 325 mg tablet Take 2 Tabs by mouth every 4 hours as needed for Pain. 08/10/2017 09/20/2017 albuterol 90 mcg/actuation inhalerIndications:Mild intermittent asthma without complication Inhale 2 Puffs as directed every 4 hours as needed for Wheezing. 1 Inhaler 11 07/03/2016 08/24/2018 DOCOSAHEXANOIC ACID/EPA (FISH OIL ORAL) Take by mouth. 09/29/2017 docusate sodium (COLACE) 100 mg capsule Take 1 Cap by mouth 2 times daily as needed for Constipation. 08/10/2017 09/29/2017 ibuprofen (MOTRIN) 400 mg tablet Take 1 Tab by mouth every 4 hours as needed for Pain. 08/10/2017 07/12/2018 levothyroxine (SYNTHROID) 175 mcg tabletIndications:Hypoth yroidism, postablative Take 1 Tab by mouth daily. 90 Tab 1 07/07/2017 04/06/2018 VITS62/FA/OM3/DHA/EPA ( GUMMY ORAL) Take by mouth. 06/29 documented as of this encounter Ordered Prescriptions Prescription Sig Dispensed Refills Start Date End Da te ibuprofen (MOTRIN) 400 mg tablet Take 1 Tab by mouth every 4 hours as needed for Pain. 08/10/2017 07/12/2018 docusate sodium (COLACE) 100 mg capsule Take 1 Cap by mouth 2 times daily as needed for Constipation. 08/10/2017 09/29/2017 acetaminophen (TYLENOL) 325 mg tablet Take 2 Tabs by mouth every 4 hours as needed for Pain. 08/10/2017 09/20/2017 documented in this encounter Discharge Disposition Disposition Code Departure Means Destination Home or Self Care documented in this encounter Progress Notes * Sridevi Perez CNM - 08/10/2017 1238 EDT S: Feeling good today, ready to go home. Bleeding light, no clots. Voiding and ambulating without difficulty. + BM today. Pain well controlled. Mood is good; was a little stressed yesterday bc baby was fussy but feeling much better today. going well. Thinks her breasts feel heavier today. Able to hand express colostrum and achieve comfortable latch. Plans POP for contraception. , mother, mother in law for support. O: BP 119/67 (BP Cuff Location: Right arm, Patient Position: Sitting) Temp 37 ??C (98.6 ??F) Resp 18 Ht 158 cm (62.21) Wt (!) 118 kg (260 lb 2.3 oz) LMP 10/29/2016 SpO2 99% ? Unknown BMI 47.27 kg/m2 Breasts filling, Nipples intact, easily able to hand express drops of colostrum Fundus @ U, trace edema on panus scant Lochia Sutures intact LE +1 edema, no erythema / tenderness A: 21 y.o. yo day 2 s/p with bilateral labial and forchette lacerations repaired Stable with normal involution initiated Blood type O pos GBS neg Grave's disease s/p ablation, on Synthroid 175mcg daily Hx depression, no meds H/O HSV P: -discussed increased risk of mood disorder, signs/symptoms -reviewed basics of latch/positioning and hand expression, engorgement management -colace PRN, continue PNVs -nothing PV x 6 weeks -Discharge home, instructions reviewed: S/sx infection, depression/anxiety, normal bleeding, activity guidelines. RTO 2 weeks and 6 weeks with CNMs @ [facility] * Ansley León RN - 08/09/2017 1206 EDT Initial Case Management/Social Work Assessment and Discharge Plan/Readmission Risk Assessment REASON FOR ADMISSION: Supervision of normal first , antepartum Patient understands reason for admission: Yes PATIENT CONTACT INFO VERIFIED: Yes PATIENT ADDRESS VERIFIED: Yes LIVING ARRANGEMENTS AND ACCESSIBILITY ISSUES: Living Arrangements: Spouse / significant other What in home social supports are available to the patient? Family member(s) Is 24/7 care available? NA ADVANCED DIRECTIVES, POA &/or COLST IN PLACE: Healthcare Directive: No, patient does not have advance directive for healthcare treatment DIRECTIVES FOR FINANCES: Directive For Finances: No TRANSPORTATION: Transportation: Family (pt has an infant carseat, she has reliable transportation home.) CULTURAL, EPISCOPALIAN and/or LANGUAGE factors affecting health care/discharge planning: Spiritual/Cultural Requests: None Any factors affecting health care/discharge planning?: No Insurance in Place: Yes Medical Insurance: Yes Type of insurance: Medicaid Medicaid Type: Community Referred to patient financial services: No DISCHARGE RISK ASSESSMENT: Total # selected above: Tentative plan to address the risk of re-hospitalization for those at HIGH MODERATE RISK: RAPT TOOL: Patient expects to be discharged to: (pt anticipates d/c to home with ) SBIRT: FUNCTIONAL STATUS: Activities patient requires assistance: None Assistive Device: None COMMUNITY RESOURCES/SUPPORTS: Primary Care Provider: Marva Hitchcock PCP Verified: Yes Specialists: None Type of Home Health Services: (pt declined a HH referral.) DME Provider: Pharmacy: [email or web address] - [place], [place] - [address] [facility] [address] [facility] [address] Home Health: Other: (pt to call WIC for a PP appt.) POST HOSPITAL TRANSITION PLAN: Pt to d/c to home with infant, she will f/u with OB, Pedi and WIC. Pt has declined a HH referral. Ansley León RN 08/09/2017 12:06 * Ansley León RN - 08/09/2017 6370 EDT Attempted to see pt in her room on B& @ 1100, she was meeting with Pedi at this time. Will attempt to see prior to d/c. Ansley León RN Case Manager [id number] Pager [phone] * Kwasi Frausto CNM - 08/09/2017 1031 EDT S: Feeling good. Bleeding is gun profiler today. Voiding and ambulating without difficulty. + BM. Pain controlled with tylenol and motrin. Mood is good so far. going okay, baby stubborn, harder to get latched today but once latched sustained 10-20 minute feeds. Eleno has to go back to work right away but his parents live nearby and Tiny's parents are also local for support. 11 year old step son will also be able to help. O: BP 115/73 (BP Cuff Location: Left arm, Patient Position: Semi fowlers) Temp 36.5 ??C (97.7 ??F) (Temporal) Resp 18 Ht 158 cm (62.21) Wt (!) 118 kg (260 lb 2.3 oz) LMP 10/29/2016 SpO2 99% ? Unknown BMI 47.27 kg/m2 Breasts soft, Nipples intact, left nipple bruised on the tip Fundus firm @ 1 below U Small Lochia rubra Perineum intact, labial sutures approximated LE WWP, edematous A: 21 y.o. yo day 1 s/p with bilateral labial and 1st degree fourchette lacerations repaired Stable with normal involution initiated Blood type O pos Graves disease s/p ablation, on synthroid 175mcg daily H/o HSV P: Continue education and support Discussed feeding cues and bringing baby to breast rather than breast to baby, encouraged to ring for nurse when latching for assistance PRN Anticipate discharge tomorrow * Ely Lobato MD - 08/09/2017 0204 EDT PGY1 Update Received call from charge nurse on [place] 7 that patient synthroid order was irregularly ordered snw852 mcg. Now changed to 175 mcg dose. Ely Lobato MD PGY-1, MAILHOUSE OPERATOR Pager [phone] 08/09/2017 2:08 * Silva Mckee MD - 08/08/2017 7822 EDT L&D Progress Note Rh pos/GBS neg CC: IUP @ 40w3d who presented in labor S: Has an epidural in place, it's working well and she is fairly comfortable though able to feel pressure. [place] like she wanted to push. Checked, not time yet. She is able to rest now. Has mother andFOB in room for support. O: BP 107/62 Temp (!) 35.5 ??C (95.9 ??F) (Tympanic) Resp 18 Ht 158 cm (62.21) Wt (!) 118 kg (260 lb 2.3 oz) LMP 10/29/2016 BMI 47.27 kg/m2 FHT: Baseline 120, moderate variability, + accels, no decels; Category 1 tracing [place]: q3-5m SVE: 9cm, 100%, 0 station A/P: 21 y.o. @ 40w3d by LMP confirmed by 7w6d u/s who presented in labor and is making goodprogress. Category 1 tracing. -Labor: + AROM. Making good progress, will continue to monitor. Expect she will be complete and ready to push soon. -FWB: CEFM -Pain: epidural in place, working well -PPH risk: low -Global: Rh pos, GBS neg Silva Mckee MD 08/08/2017 14:52 * Taylor Avelar, RN - 08/08/2017 1120 EDT 11:20 Pt arrived for labor check states ctrx are coming about every 5 minutes and lasting about a minute. States they started around 050 this morning hand have continued to get closer and stronger. Positive FM. Denies TRIVEDI, BV,VB,LOF. 11:26 pt reports she was 3cm 80% on 1149 ROSENDO Rowland at bedside for VE 1200 pt requesting epidural 12:10 ROSENDO Rowland and MD Chelsi Mckee at bedside for SSE to check for HSV lesions 12:25 MD Monae at bedside for consult 14:42 Pt reports rectal pressure, ROSENDO Rowland at bedside for VE 1638 complete and pushing 1743 of vigorous baby girl placed skin to skin. documented in this encounter H&P Notes * Kayden Rowland CNM - 08/08/2017 1249 EDT Department of Obstetrics History & Physical Admit Date: 08/08/2017 Chief Complaint Patient presents with ??? Contractions 0500 Admission indication: Term labor/ROM Maternal transport/Outside delivery: No HPI: Tiny Pedraza is a 21 y.o. at 40w3d by LMP confirmed by 7w6d u/s presenting in labor. She quit smoking cold turkey for this . Says it was hard but she has been able to do it. has been uncomplicated. She started feeling contractions last night, she was able to continue activities and rest overnight. Early this morning they were stronger and closer together. Good FM. No leakage of fluid. No bleeding. PMH of hypothyroidism s/p radioactive iodine treatment + ablation in 2012, on synthroid. TSH duringpregnancy intermittently high, checked regularly and followed by endocrine for synthroid dose adjustments as indicated. Also has a history of HSV, concern for an outbreak during . Had a negative swab and has been on valtrex. History of depression though no concerns during and noton medication. Has asthma hx but rarely uses albuterol. Review of Systems: Deshawn TRIVEDI, CP, SOB Current Complications: Does patient have any current complications?: No Diabetes: None Hematologic disorders: None Thyroid disease: Hypothyroid Pulmonary disease: Asthma Cardiac disease: None GI/Hepatic disorders: None Neurologic disease: None Psychiatric disease: Depression Assisted reproduction this : None Preeclampsia prevention: None Prior : None growth abnormality: None Multiple gestation: No, Reed Second or third trimester bleeding: None Abnormal placentation/cord: None Testing: Genetic screening: None Genetic procedures: None testing: NST Maternal/ imaging: First trimester US;Routine US Congenital anomalies: None procedures: None Medication Exposure: Significant medication exposure: None Labs: Rh pos/ Antibody screen unk / Rubella immune / Varicella immune / RPR neg / Gonorrhea neg / Chlamydia neg / Hepatitis B neg/ Hepatitis C not done / HIV neg / 1hr GTT 118 / 3hr GTT not indicated / GBS neg Ultrasound Date GA EFW CHRISTI Anatomy Dopplers 03/19/2017 20w1d 12oz normal 07/08/2017 36w 6lb normal FOB History: Father of the baby medical history: Not significant OB History Para Term AB Living 1 0 0 0 0 0 SAB TAB Ectopic Multiple Live Births 0 0 0 0 # Outcome Date GA Lbr Eduardo/2nd Weight Sex Delivery Anes PTL Lv 1 Current Previous Complications: No Data Recorded Past Medical History Past Surgical History Past Medical History: Diagnosis Date ??? ADD (attention deficit disorder) ??? Asthma, exercise induced ??? Autoimmune disorder (HCC-CMS) Grave's disease ??? Depression was taking meds (can't remember what), stopped in 07/2016, no counselor ??? Herpes simplex virus (HSV) infection ??? Mood disorder (HCC-CMS) ??? Thyroid disease Past Surgical History: Procedure Laterality Date ??? LIPOMA RESECTION 2017 on abdomen Past Gynecological History Social History History of bacterial vaginosis Normal PAP 2014, will repeat Social History Substance Use Topics ??? Smoking status: Former Smoker Packs/day: 0.50 Years: 5.00 Types: Cigarettes ??? Smokeless tobacco: Never Used Comment: quit prior to dating ultrasound ??? Alcohol use No Comment: no drinking since dating ultrasound reports that she does not use illicit drugs. Medications Allergies Prescriptions Prior to Admission Medication Sig Dispense Refill Last Dose ??? albuterol 90 mcg/actuation inhaler Inhale 2 Puffs as directed every 4 hours as needed for Wheezing. (Patient not taking: Reported on 07/26/2017) 1 Inhaler 11 Not Taking ??? DOCOSAHEXANOIC ACID/EPA (FISH OIL ORAL) Take by mouth. Taking ??? levothyroxine (SYNTHROID) 175 mcg tablet Take 1 Tab by mouth daily. (Patient taking differently: Take 200 mcg by mouth daily. ) 90 Tab 1 Taking ??? VITS62/FA/OM3/DHA/EPA ( GUMMY ORAL) Take by mouth. 08/07/2017 at Unknown time ??? valACYclovir (VALTREX) 500 mg tablet TAKE ONE TABLET BY MOUTH EVERY 12 hours 60 Tab 1 08/08/2017at Unknown time Allergies Allergen Reactions ??? Hydrocodone Nausea And Vomiting ??? Lorabid [Loracarbef] Nausea And Vomiting ??? Vicodin [Hydrocodone-Acetaminophen] Nausea And Vomiting ??? Yeast, Dried Nausea And Vomiting If consumes large amounts will develop N/V Objective: Weights Prepregnancy Weight: 92.1 kg (203 lb) Weight : (!) 118 kg (260 lb 2.3 oz) Patient Vitals for the past 8 hrs: BP Heart Rate Resp Temp 08/08/17 1130 136/79 97 BPM 18 (!) 35.5 ??C (95.9 ??F) General: Comfortable appearing, sitting in bed Respiratory: regular work of breathing Abdomen: gravid Extremities: no edema Physical Lie: Longitudinal Presentation: Vertex Fundal Height: 40 cm (1' 3.75) Clinical EFW: 3.402 kg (7 lb 8 oz) BMI 37 FHT: 140 baseline. moderate variability, + accels, no decels; Cat 1 tracing. TOCO: irregular approximately q6m SSE: No HSV lesions visualized SVE: 7, 100, -1 on admission, BBOW Assessment/Problems/Plan: Tiny Pedraza is a 21 y.o. at 40w3d by LMP confirmed by 7w6d u/s presenting in labor. Continue to monitor labor Expect normal progression per primipara Anesthesia consulted for epidural Will consider augmenting cx pattern with AROM Patient plans to breastfeed?: Yes Breastmilk contraindication: None Planning: Prior uterine surgery: No candidate?: Not applicable Waterbirth planned: No Home : No Post-Delivery Contraception?: Undecided Global hemorrhage risk: Low Rh + GBS negative Immunizations indicated : None Discussed with Elizabeth Rowland CNM. Silva Mckee MD 08/08/2017 12:49 Attestation: I saw and examined the patient with the resident/fellow 08/08/2017. I agree with the findings and plan of care documented in the resident's/fellow's note with a few attendums. Kayden Rowland CNM 08/08/2017 13:49 documented in this encounter Consult Notes * Karl Birmingham, RN IBCLC - 08/10/2017 1402 EDT Images from the original note were not included. [facility] Consult Initial Consult Consult Requested By: Order Reason for Consult: Difficult latch/non-sustained latch Subjective: This latch went really easily but sometimes, depending on her mood, it is quite difficult. Planning discharge today. Doesn't really want VNA referral or f/u TC. Has support of her own mother, who BF her x 11 mths ( she weaned herself p mother had gallbladder surgery and was absent x 2 days), her sister in law, who is currently BF her 4 mth old, other friendsand family who BF. She has WIC but not sure that she has a peer counselor. She is part of an online BF support group as well. Objective: Date of : Information for the patient's : Elier Pedraza [[id number]] 08/08/2017 Time of Delivery: Information for the patient's : Elier Pedraza [[id number]] 1743 Type of Delivery: Information for the patient's : Elier Pedraza [[id number]] Spontaneous Vaginal Delivery [1056] Weight: 3834 g (8 lb 7.2 oz) Gestational Age: Information for the patient's : Elier Pedraza [[id number]] 40 3/7 : Information for the patient's : Elier Pedraza [[id number]] 8 Information for the patient's : Elier Pedraza [[id number]] 9 GBS: Mother was negative. Anesthesia: Labor analgesia: Epidural, Delivery anesthesia: Epidural, Local/Pudendal, Adjunctive analgesia: None Anesthetic complications: None Additional comments: History/ Complications: Subchorionic hemorrhage Maternal Lab: Lab Results Component Value Date HCT 38.0 08/08/2017 Infant Lab: Information for the patient's : Elier Pedraza [[id number]] Lab Results Component Value Date TCB 8.5 08/09/2017 Information for the patient's : Elier Pedraza [[id number]] No results found for: TBIL Information for the patient's : Elier Pedraza [[id number]] No results found for: CRP History: Primip. Has done a lot of reading about BF and part of an online BF support group. Family members all BF. Social History: Lives c , [place] and 11 yo stepson in [place]. She is not sure how her stepson is feeling about having new baby. His own mom recently returned to his life p being absent x 5 years so there are alot of changes for him. He calls Tiny mom. Her has to RTW but her mother is nearby to help prn. Medical History: Pertinent Maternal History:Hx Graves Dx - s/p ablation and radioactive iodine rx 2012, takes Synthroid and followed closely by endocrine. Hx ADD, Depression, Vit D deficiency, HSV, Hx Smoking, Asthma Current Maternal Medications: Current Facility-Administered Medications: acetaminophen (TYLENOL) tablet 650 mg oral Q4H PRN calcium carbonate (TUMS) 200 mg calcium (500 mg) per chewable tablet tablet,chewable 2 Tab oral Q2HPRN docusate sodium (COLACE) capsule 100 mg oral BID PRN ibuprofen (MOTRIN) tablet 400 mg oral Q4H PRN lansinoh HPA lanolin topical PRN levothyroxine (SYNTHROID) tablet 175 mcg oral DAILY multivitamin vit-iron fumarate-FA (STUARTNATAL) 27 mg iron- 1 mg tablet 1 Tab oral DAILY Maternal Anatomy: no abnormalities noted Nipples intact c exception of tiny white blister at top ofnipple face on left nipple. Pertinent History: Blood type: A pos, DC neg. Will have blood test for Thyroid stimulating immunoglobulin serum d/t maternal Grave's disease Current Medications: Information for the patient's : Elier Pedraza [[id number]] Current Facility-Administered Medications: Breast Milk Identification oral PRN sucrose 24% (TOOTSWEET) solution 0.1 mL oral PRN Infant Anatomy: no abnormalities noted Tho baby at breast then asleep during visit Infants Current Weight: down 5.7 oz since yesterday Information for the patient's : Elier Pedraza [[id number]] 3655 g (8 lb 0.9 oz) Change from Weight: Information for the patient's : Elier Pedraza [[id number]] -5% 24 hour I/O: BF x 9 + attempts/24 hrs c 3 voids + 4 stools Observation: Introduced self/role. Jailyn already latched on left side in cradle hold when I came in to see them. She had wide mouthful of breast, an asymmetrical latch and comfortable for Tiny, who was able to help her latch by herself. Baby had swallows at breast, juan when Tiny did breast compressions,about q 1-4 sucks. Maternal nipple undamaged when baby came off breast spontaneously, content. Reviewed typical infant feeding behavior, skill, basics of positioning/latch. Her folder was packedaway but discussed the handouts on BF in packet and she plans to utilize new education booklet/videos at home. Reinforced contacting community support if any problems c BF juan sore or damaged nipples.Discussed helpfulness of STS at home, BF in public or in front of her stepson and strategies to protect her modesty, if needed. Patient Education:Use of log, Prevention/treatment of engorgement, Community resources for , Typical pattern of night and cluster feeding, hand expression, Breast compressions and Basics of positioning/latch Assessment: New mom learning skills c BF, with only occasional need for help. Continued BF education at home, guidance as needed will be helpful, bryan Franks doesn't really wantVNA or TC. She does have strong family support and guidance available from family/friends on BF. Plan: STS as much as possible. Offer breast with cues, at least 8-12 times per 24 hours Watch for light sleep state cues if needed, to avoid longer than 3 hours without feeding Try to observe latch at least once per shift - help with this PRN Use breast compressions to keep baby swallowing PRN Handouts given: Log, Engorgement, Milk Storage Guidelines and List of Community Resources Pump Equipment:: has handpump at home Time spent: In Room: 25 mins face to face Out of room: 20 mins Karl Birmingham RN IBCLC 08/10/2017 14:02 documented in this encounter Miscellaneous Notes * Plan of Care - Meghann Lainez RN - 08/10/2017 7762 EDT Problem: Daily Care Plan Goals Goal: Care Plan Documentation Outcome: Ongoing 08/10/17 Care Plan Focus Area of Focus Discharge Plan Goal This Shift Discharge to home today Data: delivered girl 08/08/17 @ 1743 via . VSS. assessment WNL. Up and voiding. Exclusively and independently. Rating pain 0-1/10. Action: Vital signs and assessment per protocol. Offered assistance with care and feedings. Medicated with TM q4h PRN. Discharge preparation completed. Response: Stable . Discharged to home. Meghann Lainez RN 08/10/2017 17:32 * Plan of Care - Amelia Vasquez - 08/10/2017 1012 EDT Problem: Daily Care Plan Goals Goal: Care Plan Documentation Outcome: Ongoing 08/10/17 0948 Care Plan Focus Area of Focus Mobility Goal This Shift Patient will ambulate at least 30-40 minutes before d/c on 08/10/17 Data: 24 year old female s/p first uncomplicated vaginal . Patient exhibits independence and naheed towards infant. Patients vitals were stable and WNL upon assessment. Patient has moderate edema to both lower extremities. Ambulation has been minimal since of her . Patient is afebrileand comfortable with no pain reported. Patient has been skin to skin with baby since beginning of sh ift. Action: Patient has been encouraged to ambulate before discharging home today, 08/10/2017 around 1500. Education reviewed about DVT risks. Response: Patient is onboard with plan for ambulation and PN student will check in before end of shift. Amelia Vasquez 08/10/2017 9:49 * Plan of Care - Sarah Vizcaino RN - 08/09/2017 2207 EDT Problem: Daily Care Plan Goals Goal: Care Plan Documentation Outcome: Met This Shift 08/09/17 1615 Care Plan Focus Area of Focus Education Goal This Shift instruction Data: Mother new to , fussy at breast Action: Mother instructed in sidelying position with infant latching after glucose water sprinkled on nipple, mother subsequently was able to latch infant independently Response: Continue to instruct mother in a variety of positions. Sarah Vizcaino RN 08/09/2017 22:05 * Anesthesia Post-Eval - Mary Zaldivar MD - 08/09/2017 1705 EDT Anesthesia Post op Note Tiny Pedraza [id number] Anesthesia received: Neuraxial; No residual block Vital Signs: Temp: 36.8 ??C (98.2 ??F), Heart Rate: 81 BPM, BP: 111/68, Resp: 20, SpO2: 99 % Vital signs Stable: Yes Consciousness: Recovered to baseline, Awake, Alert Patient's participation in evaluation:Able to participate Temperature Status: Normothermic Respiratory Status: Airway patent Supplemental O2: Room air Oxygen Saturation: Within patient's normal range Cardiovascular Status: Within patient's normal range Post-op Hydration: Adequate Nausea / Vomiting: None Pain Control: Adequate Current Pain Score: Numeric Pain Level (Scale 1-10): 3 Post-op Assessment: Tolerated procedure well, Patient satisfied with anesthesia Disposition: Inpatient Complications: No apparent anesthetic complications Mary Zaldivar MD 08/09/2017 17:05 * Plan of Care - Meghann Lainez RN - 08/09/2017 1545 EDT Problem: Daily Care Plan Goals Goal: Care Plan Documentation Outcome: Ongoing 08/09/17 Care Plan Focus Area of Focus Pain/ Comfort Goal This Shift Patient will be comfortable and have periods of rest Data: delivered girl 08/08/17 @ 1743 via . VSS. assessment WNL. Up and voiding. Planning to exclusively breastfeed. Rating pain 2-4/10. Using warm pack for uterine cramping. Action: Vital signs and assessment per protocol. Offered assistance with care and feedings. Medicated with TM x 2 this shift. Response: Stable . Comfortable. Meghann Lainez RN 08/09/2017 15:45 * Plan of Care - Dayami Alberto RN - 08/09/2017 0234 EDT Problem: Daily Care Plan Goals Goal: Care Plan Documentation Outcome: Met This Shift 08/08/17 2336 Care Plan Focus Area of Focus Sleep Goal This Shift cluster care to promote rest Data: Assumed care of pt at 2300. Pt now day 1 s/p vaginal delivery of baby girl, first baby. C/O 1/10 perineal pain. Had voided x2 since transfer, but first void small so requesting to measure one more void. Action: Monitored assessment/VS. Medicated with tylenol/motrin/Ice. Encouraged pt to void. Clustered care to promote rest. Response: Assessment/VS stable. Pt states pain is well controlled. Voided 550cc. Pt able to rest comfortably between feedings. Will continue to monitor and assist as needed. Dayami Alberto RN 08/09/2017 2:30 Problem: Pain: Goal: Pain level will decrease Outcome: Met This Shift * Plan of Care - Meghann Lainez RN - 08/08/2017 2230 EDT Problem: Daily Care Plan Goals Goal: Care Plan Documentation Outcome: Ongoing 08/08/172015 Care Plan Focus Area of Focus Pain/ Comfort Goal This Shift Patient will be comfortable and have periods of rest Data: delivered girl 08/08/17 @ 1743 via . VSS. assessment WNL. Up and voiding. Planning to exclusively breastfeed. Rating pain 1/10. Action: Vital signs and assessment per protocol. Offered assistance with care and feedings. Medicated with TM on L&D. Response: Stable . Comfortable. Meghann Lainez RN 08/08/2017 22:26 * L&D Delivery Note - Kayden Rowland CNM - 08/08/2017 1840 EDT Delivery Information Tiny Pedraza is a 21 y.o. at 40w3d delivered by Spontaneous Vaginal Delivery . Elier Pedraza [id number] at Gestational Age: 40w3d delivered by Spontaneous Vaginal Delivery weighed 3834 g (8 lb 7.2 oz), 8 /9 , sent to [facility] after delivery. Maternal: Delivery Plan Outcome Planned home ? Not planned External cephalic version attempt indicated? Not indicated Delivery as waterbirth? No PRABHAKAR after : Not applicable Delivery Indications Maternal Indications for delivery/comments: Not applicable Indications for delivery/comments: Not applicable Intrapartum Medication Intrapartum preeclampsia: No Intrapartum Mg: No Intrapartum Mg Indication: N/A Labor Labor onset: Spontaneous Cervical ripening/induction agent: N/A Labor augmentation: None Augmentation indication/comments: N/A Infection/Risk of Sepsis GBS Status: Negative GBS treatment: PROM > or = 18 Hours: N/A Maternal Fever > or = 38 C: N/A Maternal Tachycardia > 100 bpm: N/A Tachycardia > 160 bpm: N/A Uterine tenderness: N/A Foul odor of amniotic fluid: N/A Chorioamnionitis: N/A HIV Status/treatment: Not indicated Hepatitis B Surface Antigen: Negative Syphilis: Negative Assessment monitoring: Contiunous - External heart rate characteristics/comments: Cat 1 demise: N/A Anesthesia Labor analgesia: Epidural, Delivery anesthesia: Epidural, Local/Pudendal, Adjunctive analgesia: None Anesthetic complications: None Additional comments: Maternal Delivery Delivery type: Spontaneous Vaginal Delivery Presentation: Vertex Position: OA indication: Forceps Attempted: No Vacuum Attempted: No Operative Vaginal Delivery Indication: N/A Station - Initial Application: N/A Details of Shoulder Dystocia (if applicable) Dystocia Present? No Maneuvers Performed (if applicable) Placenta Delivered: 08/08 17:56 Delivery method: Controlled Cord Traction;Spontaneous Morphology: Normal Disposition: Refrigerator Cord Details Vessels: 3 Vessels Complications: None Nuchal intervention: Nuchal cord description: Cord around: Number of loops: Gases Sent? No Cord Blood Sent: None Stem cell collection (by )? No Comments: Lacerations/Episiotomy Lacerations: Yes 1st degree Periurethral: N/A Additional Lacerations: Labial biltral labial Episiotomy: None Indication: N/A Repair Suture: 4-0 Vicryl Procedures Additional Procedures: None Hemorrhage (if applicable) hemorrhage: None Estimated blood loss (mL): 200.00 Uterotonics/PPH Procedures: Uterine massage, Blood Products Transfused: (if applicable) Labor Length Duration of 1st Stage: 11 hours 38 minutes Duration of 2nd Stage: 1 hours 5 minutes Duration of 3rd Stage: 0 hours 12 minutes Duration of Cord Clamp Delay: 120 seconds Precipitous Labor (<3 hours): No Prolonged Labor (>20 hours): No : Date of : 08/08/2017 Time of : 1743 Sex: female Weight (grams): 3834 g (8 lb 7.2 oz) Length (in): 21 Head circumference (in): 12.795 Observed anomalies, comments: Meconium Present at Delivery: Yes (<37 wks): No Late (34-37 wks): No Steroid Course: Not indicated Indication: N/A PPROM Gestational Age: N/A APGARS Totals: 8 /9 /-/-/- Resuscitation Resuscitation: None Delivery Personnel Delivering Clinician: KAYDEN ROWLAND Additional Personnel: TAYLOR AVELAR;SILVA MCKEE;LYNN MIRELES ROM Duration: rupture date or rupture time have not been documented Induction Duration (if applicable): Labor and Delivery comments: Feeling continuous pressure VE at 1635 found pt to be complete. Pushedwell in various position with variable decels intermittently until live term female infant at 1743. 8#7oz Apgars 8/9 Placed immediately to maternal abdomen. Placenta delivered at ~ 15 min after with gentle cord traction and maternal effort complete and intact. EBL 200 cc. Perineum inspect ed and found 1st degree perineal and bilateral labial lacerations repaired with local anesthesia and 4-0 vicryl. Plans to BF. * Plan of Care - Taylor Avelar RN - 08/08/2017 1247 EDT Pt sitting up at the bedside for the epidural placement Dr Monae and Dr Coronado present placing the epidural [address], catheter did advance 12:47 Test dose given Epidural dosed 12:51 After the epidural was dosed pt placed on her right side. Monitors applied and the pt positioned for comfort * Anesthesia Pre-Eval - Nicole Coronado - 08/08/2017 1232 EDT Obstetric Anesthesia Consult Name: TINY PEDRAZA : 1995 Date: 08/08/2017 Age: 21 y.o. GA: 40w3d Film Sound Engineer: Tracey Flores MD Obstetric History: Obstetric History Complications during : Complicated By: Complicated by: Morbid obesity, hypothyroidism, mild asthma Allergies Allergen Reactions ??? Hydrocodone Nausea And Vomiting ??? Lorabid [Loracarbef] Nausea And Vomiting ??? Vicodin [Hydrocodone-Acetaminophen] Nausea And Vomiting ??? Yeast, Dried Nausea And Vomiting If consumes large amounts will develop N/V Anesthetic History: Anesthesia History Previous Patient or Family Problems with Anesthesia: None Airway Evaluation: Airway Evaluation Mallampati: 2 Mouth Opening: Normal Jaw Thrust: Normal Thyro-Mental Distance: Normal Neck Eval: ROM Normal Teeth: Normal Review of Systems: Smoker: Quit History of Respiratory Infections: No Asthma: Yes Hospitalized for Asthma: No Asthma Medications: Yes Asthma Triggers: Cold, Exercise Heart Murmur: No High Blood Pressure: No Angina/Palpitations: No Blood Vessel Disease: No Neurological Disease: No Muscular Degeneration: No Backpain/Neckpain: No Reflux/Heartburn/Hiatial Hernia: Yes GI Additional Info: Taking Medication Liver Disease: No Thyroid Disease: Yes Type of Thyroid Disease: Hypothyroid, Med Controlled Kidney Disease: No Diabetes: No Anemia: No Bleeding Disorders: No Previous Anesthesia for Childbirth: No Infectious Disease: No Opioid Dependency: No Contact Lenses/Glasses: None Past Surgical History: Procedure Laterality Date ??? LIPOMA RESECTION 2017 on abdomen Current Facility-Administered Medications: acetaminophen (TYLENOL) tablet 650 mg oral Q4H PRN bupivacaine-fentanyl in NS 0.0625 %-2 mcg/mL 250 mL epidural epidural CONTINUOUS carboprost (HEMABATE) intramuscular injection 250 mcg intramuscular PRN ibuprofen (MOTRIN) tablet 400 mg oral Q4H PRN lactated ringers (LR) infusion intravenous CONTINUOUS methylergonovine (METHERGINE) injection 200 mcg intramuscular PRN miSOPROStol (CYTOTEC) 200 mcg tablet miSOPROStol (CYTOTEC) tablet 200 mcg buccal PRN miSOPROStol (CYTOTEC) tablet 800 mcg rectal PRN oxytocin in lactated ringers 30 unit/500 mL infusion solution oxytocin in lactated ringers 30 units/500 ml intravenous ONCE And oxytocin in lactated ringers 30 units/500 ml intravenous ONCE Outpatient Prescriptions Marked as Taking for the 08/08/17 encounter (Hospital Encounter) with Tracey Flores MD Medication Sig Dispense Refill ??? VITS62/FA/OM3/DHA/EPA ( GUMMY ORAL) Take by mouth. ??? valACYclovir (VALTREX) 500 mg tablet TAKE ONE TABLET BY MOUTH EVERY 12 hours 60 Tab 1 Vital Signs: BP 136/79 Temp (!) 35.5 ??C (95.9 ??F) (Tympanic) Resp 18 Ht 158 cm (62.21) Wt (!) 118 kg (260 lb 2.3 oz) LMP 10/29/2016 BMI 47.27 kg/m2 Labs: Lab Results Component Value Date WBC 12.08 08/08/2017 HGB 12.8 08/08/2017 HCT 38.0 08/08/2017 MCV 87 08/08/2017 PLT 291 08/08/2017 NA 141 06/01/2016 K 4.2 06/01/2016 CL 105 06/01/2016 CO2 25 06/01/2016 BUN 11 06/01/2016 CREATININE 0.93 06/01/2016 Blood/Cultures: Recent Results (from the past 1008 hour(s)) GROUP B STREP PCR Collection Time: 07/08/17 12:01 Result Value Ref Range Status GROUP B STREP PCR Negative Final ASA Classification: Grade III Plan: epidural, general, spinal mode(s) of anesthesia were discussed. Risks discussed included: Bleeding, Infection, Nerve Injury, Spinal headaches, low blood pressures with underperfusion, high spinals, hematomas, failure and replacement. All of Tiny Pedraza's questions were answered to her satisfaction. Unless otherwise noted, follow standard anesthesia pre-operative protocol. Ely Monae MD 08/08/2017 Attestation statement: I saw and examined the patient with the resident/fellow. I agree with the findings and plan of care documented in the resident's/fellow's note. documented in this encounter Plan of Treatment Scheduled Referrals Name Type Priority Associated Diagnoses Order Schedule PROVIDER FOLLOW-UP INSTRUCTIONS Outpatient Referral Routine Ordered: 08/10/2017 AMB CONS/FOLLOW UP OBSTETRICS Outpatient Referral Routine Supervision of normal first , antepartum Ordered: 08/10/2017 documented as of this encounter Procedures Procedure Name Priority Date/Time Associated Diagnosis Comments COMPLETE BLOOD COUNT STAT 08/08/2017 12:00 EDT BLOOD BANK HOLD Routine 08/08/2017 12:00 EDT documented in this encounter Results * BLOOD BANK SPECIMEN HOLD (08/08/2017 12:00 EDT) Hold BB Spec will exp at 23:59, 3 days from collect date [facility] Blood specimen (specimen) 08/08/2017 12:00 EDT Silva Mckee MD BLOOD BANK TESTS [facility] * (ABNORMAL) COMPLETE BLOOD COUNT (08/08/2017 12:00 EDT) WBC 12.08 4.0 - 12.4 K/cmm 08/08/2017 12:23 [facility] RBC 4.35 3.86 - 5.04 M/cmm 08/08/2017 12:23 [facility] Hemoglobin 12.8 11.6 - 15.2 gm/dl 08/08/2017 12:23 [facility] HCT 38.0 34.9 - 44.4 % 08/08/2017 12:23 [facility] MCV 87 81 - 98 fl 08/08/2017 12:23 [facility] MCH 29.4 26.7 - 33.3 pg 08/08/2017 12:23 [facility] MCHC 33.7 32.1 - 35.9 gm/dl 08/08/2017 12:23 [facility] RDW-CV 15.9(H) <14.7 % 08/08/2017 12:23 [facility] RDW-SD 51.2(H) <50.4 fl 08/08/2017 12:23 EDT [facility] PLT 291 141 - 377 K/cmm 08/08/2017 12:23 EDT [facility] MPV 10.5 9.5 - 12.7 fl 08/08/2017 12:23 EDT [facility] Blood specimen (specimen) BLOOD SPECIMEN / Unknown 08/08/2017 12:00 EDT 08/08/2017 12:14 EDT Kayden Rowland NP CNM HEMATOLOGY & P F4 ORDERABLES [facility] [address] [place] [address] documented in this encounter Visit Diagnoses Diagnosis Supervision of normal first , antepartum- Primary Supervision of normal first , antepartum documented in this encounter Administered Medications Inactive Administered Medications - up to 3 most recent administrations Medication Order MAR Action Action Date Dose Rate Site acetaminophen (TYLENOL) tablet 650 mg 650 mg, oral, EVERY 4 HOURS PRN, Starting on Wed08/08/17 at 1153, Until Wed08/08/17 at 2018, Pain, Post-, Routine Given 08/08/2017 19:20 EDT 650 mg acetaminophen (TYLENOL) tablet 650 mg 650 mg, oral, EVERY 4 HOURS PRN, Starting on Wed08/08/17 at 2017, Until Wed08/10/17 at 1936, Pain, Routine Given 08/10/2017 15:43 EDT 650 mg Given 08/10/2017 10:38 EDT 650 mg Given 08/09/2017 23:53 EDT 650 mg bupivacaine-fentanyl in NS 0.0625 %-2 mcg/mL 250 mL epidural epidural, CONTINUOUS, Starting on Wed08/08/17 at 1245, Until Wed08/08/17 at 2017, PCEA Dose: 8 mL LOCKOUT Interval: 10 minutes ONE HOUR Dose Limit: 36 mL BASAL Rate: 10 mL/hr, Routine New Bag 08/08/2017 12:54 EDT docusate sodium (COLACE) capsule 100 mg 100 mg, oral, 2 TIMES DAILY PRN, Starting on Wed08/08/17 at 2017, Until Wed08/10/17 at 1936, Constipation, Routine Given 08/10/2017 10:38 EDT 100 mg Given 08/08/2017 23:43 EDT 100 mg ibuprofen (MOTRIN) tablet 400 mg 400 mg, oral, EVERY 4 HOURS PRN, Starting on Wed08/08/17 at 1153, Until Wed08/08/17 at 2018, Pain, post-, Routine Given 08/08/2017 19:20 EDT 400 mg ibuprofen (MOTRIN) tablet 400 mg 400 mg, oral, EVERY 4 HOURS PRN, Starting on Wed08/08/17 at 2017, Until Wed08/10/17 at 1936, Pain, Routine Given 08/10/2017 15:43 EDT 400 mg Given 08/09/2017 23:53 EDT 400 mg Given 08/09/2017 20:35 EDT 400 mg lactated ringers (LR) infusion 150-200 mL/hr, intravenous, CONTINUOUS, Starting on Wed08/08/17 at 1215, Until Wed08/08/17 at 2018, Routine New Bag 08/08/2017 15:23 EDT 200 mL/hr 200 mL/hr Rate Change 08/08/2017 14:53 EDT 999 mL/hr 999 mL/hr Rate Change 08/08/2017 14:03 EDT 200 mL/hr 200 mL/hr lansinoh HPA lanolin topical, PRN, Starting on Wed08/08/17 at 2017, Until Wed08/10/17 at 1936, Other, breast feeding Given 08/09/2017 23:53 EDT 14 g levothyroxine (SYNTHROID) tablet 175 mcg 175 mcg, oral, DAILY, First dose (after last modification) on Wed08/09/17 at 0700, Until Discontinued, Routine Given 08/09/2017 7:00 EDT 175 mcg multivitamin vit-iron fumarate-FA (STUARTNATAL) 27 mg iron- 1 mg tablet 1 Tab 1 Tablet, oral, DAILY, First dose on Wed08/08/17 at 2045, Until Discontinued, Routine Given 08/10/2017 10:3 8 EDT 1 Tablet Given 08/09/2017 8:03 EDT 1 Tablet documented in this encounter Discontinued Medications Medication Sig Discontinue Reason Start Date End Da te valACYclovir (VALTREX) 500 mg tabletIndications:PCR DNA positive for HSV1 TAKE ONE TABLET BY MOUTH EVERY 12 hours 07/08/2017 08/10/2017 documented as of this encounter Active and Recently Administered Medications Times are shown in EDT. Scheduled Medication Order 08/08/2017 08/09/2017 08/10/2017 levothyroxine (SYNTHROID) tablet 175 mcg 175 mcg, oral, DAILY, First dose (after last modification) on 08/09/17 at 0700, Until Discontinued, Routine 0700 (Given - Provider: Jayesh Bledsoe RN) 0626 (Not Given - Provider: Lucrecia Vang RN - Reason: Other - Comment: Pt took her meds from home) multivitamin vit-iron fumarate-FA (STUARTNATAL) 27 mg iron- 1 mg tablet 1 Tab 1 Tablet, oral, DAILY, First dose on 08/08/17 at 2045, Until Discontinued, Routine 2218 (Not Given - Provider: Meghann Lainez RN - Reason: Other - Comment: takes in the morning) 0803 (Given - Provider: Meghann Lainez RN) 1038 (Given - Provider: Meghann Lainez RN) Continuous Medication Order 08/08/2017 08/09/2017 08/10/2017 bupivacaine-fentanyl in NS 0.0625 %-2 mcg/mL 250 mL epidural (CANCELED) epidural, CONTINUOUS, Starting on 08/08/17 at 1245, Until 08/08/17 at 2018, PCEA Dose: 8 mL LOCKOUT Interval: 10 minutes ONE HOUR Dose Limit: 36 mL BASAL Rate: 10 mL/hr, Routine 1254 (New Bag - Provider: Taylor Avelar RN)1834 (Completed - Provider: Taylor Avelar RN) lactated ringers (LR) infusion (CANCELED) 150-200 mL/hr, intravenous, CONTINUOUS, Starting on 08/08/17 at 1215, Until 08/08/17 at 2018, Routine 1207 (New Bag - Provider: Taylor Avelar RN - Comment: bag 1)1308 (New Bag - Provider: Taylor Avelar RN - Comment: bag 2)1328 (Rate Change - Provider: Taylor Avelar RN)1403 (Rate Change - Provider: Taylor Avelar RN)1453 (Rate Change - Provider: Taylor Avelar RN)1523 (New Bag - Provider: Taylor Avelar RN - Comment: bag 3)1834 (Completed - Provider: Taylor Avelar RN) PRN Medication Order 08/08/2017 08/09/2017 08/10/2017 acetaminophen (TYLENOL) tablet 650 mg (CANCELED) 650 mg, oral, EVERY 4 HOURS PRN, Starting on 08/08/17 at 1153, Until Wed08/08/17 at 2018, Pain, Post-, Routine 1920 (Given - Provider: Carey Pickering RN) acetaminophen (TYLENOL) tablet 650 mg 650 mg, oral, EVERY 4 HOURS PRN, Starting on 08/08/17 at 2018, Until Wed08/10/17 at 1936, Pain, Routine 2342 (Given - Provider: Dayami Alberto RN) 0346 (Given - Provider: Dayami Alberto RN)0803 (Given - Provider: Meghann Lainez RN)1154 (Given - Provider: Meghann Lainez RN)1615 (Given - Provider: Sarah Vizcaino RN)2033 (Given - Provider: Sarah Vizcaino RN)2353 (Given - Provider: Lucrecia Vang, ROULA) 1038 (Given - Provider: Meghann Lainez RN)1543 (Given - Provider: Meghann Lainez RN) calcium carbonate (TUMS) 200 mg calcium (500 mg) per chewable tablet tablet,chewable 2 Tab 2 Tablet, oral, EVERY 2 HOURS PRN, Starting on 08/08/17 at 2018, Until Wed08/10/17 at 1936, Heartburn, Indigestion, Routine docusate sodium (COLACE) capsule 100 mg 100 mg, oral, 2 TIMES DAILY PRN, Starting on 08/08/17 at 2018, Until Wed08/10/17 at 1936, Constipation, Routine 2343 (Given - Provider: Dayami Alberto RN) 2353 (Not Given - Provider: Lucrecia Vang, ROULA - Reason: Patient/family refused) 1038 (Given - Provider: Meghann Lainez RN) ibuprofen (MOTRIN) tablet 400 mg (CANCELED) 400 mg, oral, EVERY 4 HOURS PRN, Starting on 08/08/17 at 1153, Until 08/08/17 at 2018, Pain, post-, Routine 1920 (Given - Provider: Carey Pickering, ROULA) ibuprofen (MOTRIN) tablet 400 mg 400 mg, oral, EVERY 4 HOURS PRN, Starting on 08/08/17 at 2018, Until Wed08/10/17 at 1936, Pain, Routine 2342 (Given - Provider: Dayami Alberto, ROULA) 0346 (Given - Provider: Dayami Alberto RN)0803 (Given - Provider: Meghann Lainez, ROULA)1154 (Given - Provider: Meghann Lainez, ROULA)1615 (Given - Provider: Sarah Vizcaino, ROULA)2035 (Given - Provider: Sarah Vizcaino RN)2353 (Given - Provider: Lucrecia Vang, ROULA) 1543 (Given - Provider: Meghann Lainez, ROULA) lansinoh HPA lanolin topical, PRN, Starting on 08/08/17 at 2018, Until Wed08/10/17 at 1936, Other, breast feeding 2353 (Given - Provider: Lucrecia Vang, ROULA) documented in this encounter Orders Medications Ordered That Alonso ht Not Have Been Administered Count Last Ordered Date First Ordered Date calcium carbonate (TUMS) 200 mg calcium (500 mg) per chewable tablet tablet,chewable 2 Tab 1 08/08/2017 carboprost (HEMABATE) intram uscular injection 250 mcg 1 08/08/2017 levothyroxine (SYNTHROID) tablet 175 mcg 1 08/08/2017 levothyroxine (SYNTHROID) tablet 200 mcg 1 08/08/2017 methylergonovine (METHERGINE ) injection 200 mcg 1 08/08/2017 miSOPROStol (CYTOTEC) 200 mcg tablet 1 07/30 miSOPROStol (CYTOTEC) tablet 200 mcg 1 07/30 miSOPROStol (CYTOTEC) tablet 800 mcg 1 07/30 oxytocin in lactated ringers 30 unit/500 mL infusion solution 1 08/08/2017 oxytocin in lactated ringers 30 units/500 ml 2 08/08/2017 Diet Count Last Ordered Date First Orde red Date DISCHARGE DIET 1 08/10/2017 Nursing Count Last Ordered Date First Orde red Date ACTIVITY INSTRUCTIONS 3 08/10/2017 BATHING INSTRUCTIONS 2 08/10/2017 Admission Count Last Ordered Date First Orde red Date STATUS: NON-MEDICARE OB INPA TIENT ADMISSION 1 08/08/2017 Transfer Count Last Ordered Date First Orde red Date NOTIFY PPS OF DISCHARGE COMPLETE 1 08/11/19 PPS NOTIFICATION OF PATIENT ARRIVAL ON UNIT 1 08/08/2017 PPS NOTIFICATION OF SENDING PATIENT OFF THE UNIT 1 08/08/2017 Discharge Count Last Ordered Date First Orde red Date DISCHARGE PATIENT 1 08/10/2017 Legal Count Last Ordered Date First Orde red Date MISCELLANEOUS DISCHARGE INSTRUCTIONS 2 07/30 documented in this encounter Care Teams Financial Associate Relationship Specialty Start Date End Date Marva Hitchcock MD [address] [place] [phone] PCP - General 06/03/17 06/28/20 documented as of this encounter
--- OUTSIDE RECORDS SUMMARY | 2023-12-04 20:17 | XMS_ITS | Encounter Summary ---
Author Organization [facility] Address [address] [place] [address] Care Team Providers Care Hospital Corpsman Name Role Phone Marva Hitchcock MD Primary Care Provider Encounter Details Date Type Department Care Team (Late st Contact Info) Description 11/10/2018 Phlebotomy Only [facility] [place] [address] [place] [address] Marketing Associate, Outpatient Hypothyroidism, postablative; Family history of genetic disorder; Encounter for procreative genetic counseling and testing; [...] Procedure Name Priority Date/Time Associated Diagnosis Comments MISCELLANEOUS TEST, NON LLAMAS Routine 11/10/2018 12:21 EDT Family history of genetic disorder Encounter for procreative genetic counseling and testing Encounter for other screening for genetic and chromosomal anomalies TSH Routine 11/10/2018 12:21 EDT Hypothyroidism, postablative T4 FREE Routine 11/10/2018 12:21 EDT Hypothyroidism, postablative documented in this encounter Results * MISCELLANEOUS TEST, NON ALAMO (11/10/2018 12:21 EDT) Test Name TESTIN FOR FAMILIAL VARIANTS 11/10/2018 12:13 EDT [facility] Result See Pathology Scanned Report in [facility]. 01/03/2019 18:35 [facility] Ref Range See Pathology Scanned Report in [facility]. 01/03/2019 18:35 [facility] Ref Lab (Note) 01/03/2019 18:35 [facility] Comment:TESTING PERFORMED AT [facility] [place] [address] Date Sample Shipped 11/10/18 11/10/2018 14:39 EDT [facility] Specimen of unknown material (specimen) TOPOGRAPHY UNKNOWN / Unknown 11/10/2018 12:21 EDT 11/10/2018 14:38 EDT Dee Weyerts De La Cruz MD CHEMISTRY & BLOOD GAS ORDERABLES Performing Organization Address [facility] Co de Phone Number [facility] [address] [place] [address] * (ABNORMAL) TSH (11/10/2018 12:21 EDT) TSH 0.07(L) 0.47 - 4.68 uIU/ml 11/10/2018 13:36 EDT [facility] Comment: The results of this assay can be falsely lowered due to the consumption of Biotin. Blood specimen (specimen) BLOOD SPECIMEN / Unknown 11/10/2018 12:21 EDT 11/10/2018 12:32 EDT Carlos Hipolito Nuñez DO CHEMISTRY & BL OOD GAS ORDERABLES Performing Organization Address [facility] Co de Phone Number [facility] [address] [place] [address] * T4 FREE (11/10/2018 12:21 EDT) T4, Free 1.8 0.8 - 2.2 ng/dl 11/10/2018 13:22 EDT [facility] Blood specimen (specimen) BLOOD SPECIMEN / Unknown 11/10/2018 12:21 EDT 11/10/2018 12:32 EDT Carlos Nuñez DO CHEMISTRY & BL OOD GAS ORDERABLES Performing Organization Address [facility] Co de Phone Number [facility] [address] [place] [phone] documented in this encounter Visit Diagnoses Diagnosis Hypothyroidism, postablative Other postablative hypothyroidism Family history of genetic disorder Family history of other condition Encounter for procreative genetic counseling and testing Encounter for other screening for genetic and chromosomal anomalies documented in this encounter Care Teams Hospital Corpsman Relationship Specialty Start Date End Date Marva Hitchcock MD [address] [place] [phone] PCP - General 06/03/17 06/28/20 documented as of this encounter
--- OUTSIDE RECORDS SUMMARY | 2023-12-04 20:17 | XMS_ITS | Encounter Summary ---
Author Organization [facility] Address [address] [place] [address] Care Team Providers Care Media Strategist Name Role Phone Marva Hitchccok MD Primary Care Provider Reason for Visit * Reason Onset Date Comments Medications Refill 07/04/2018 Encounter Details Date Type Department Care Team (Late st Contact Info) Description 07/04/[address] [id number] Marva Hitchcock MD [address] [place] [phone] Medications Refill Social History Tobacco Use Types [...] MOUTH EVERY 12 hours 10 tablet 1 07/05/2018 10/04/2018 documented in this encounter Miscellaneous Notes * Telephone Encounter - Keira Montez RN - 07/05/2018 0741 EDT Medication(s) Requested: Valtrex 500 mg on 05/24/18 for 10 with 1 refill Preferred Pharmacy: [facility] Is patient out of medication? Unknown Last Refill Date: See above Last Visit Date with Ordering Provider: 05/24/18 Next Non-Acute Visit Date Scheduled with Care Team: Yes. 07/12/18 Keira Montez RN 07/05/2018 7:41 * Telephone Encounter - Keira Montez RN - 07/05/2018 0741 EDTFrom: Tiny Cline Sent: 07/04/2018 23:10 EDT Subject: Medication Renewal Request Tiny Cline would like a refill of the following medications: valACYclovir (VALTREX) 500 mg tablet [Marva Hitchcock MD] Preferred pharmacy: [facility] - [facility], [place] - [address] documented in this [...] TABLET BY MOUTH EVERY 12 hours Reorder 05/24/2018 07/04/2018 documented as of this encounter Care Teams Media Strategist Relationship Specialty Start Date End Date Marva Hitchcock MD [address] [place] [phone] PCP - General 06/03/17 06/28/20 documented as of this encounter
--- OUTSIDE RECORDS SUMMARY | 2023-12-04 20:17 | XMS_ITS | Encounter Summary ---
Author Organization [facility] Address [address] [place] [address] Care Team Providers Care Transplant Nurse Name Role Phone Marva Hitchcock MD Primary Care Provider Unknown, Provider Primary Care Provider Camilla Jiang MD Primary Care Provider Danyel Forde DO Primary Care Provider + Danyel Forde DO Primary Care Provider + Ayla Solomon DO Primary Care Provider [phone] Encounter Details Date Type Department Care Team (Late st Contact Info) Description 07/14/2018 Telephone [facility] Endocrinology - [facility] [address] [place] [address] Carlos Nuñez DO [address] [facility] [address] [place] [phone] Social History Tobacco Use Types [...] Telephone Encounter - Evan Perez RN - 07/14/2018 1022 EDT Called and spoke with pt and relayed Dr. Nuñez's message below: Please contact patient via phone. I reviewed her most recent TSH obtained on 07/12/2018 at the . Her TSH is significantly elevated at 85.60. Please have patient indicate whether she is taking her medication regularly and properly. Please also have patient indicateher current dose as we will clearly need to make an adjustment. Patient verbalized understanding. No barriers to learning noted. Pt states she had been forgetting to take. Stressed importance of taking medication regularly and proper way to take. Pt states she will begin taking again the 175 mcg dose and retest in 6-8 weeks. Routing message to provider to inform. * Telephone Encounter - Carlos Nuñez Do - 07/14/2018 1017 EDT Please contact patient via phone. I reviewed her most recent TSH obtained on 07/12/2018 at the . Her TSH is significantly elevated at 85.60. Please have patient indicate whether she is taking her medication regularly and properly. Please also have patient indicateher current dose as we will clearly need to make an adjustment. documented in this encounter Plan of Treatment Not on file documented as of this encounter Goals Goal Patient Goal Type Associated Problems Recent Progress Patient-Stated? Author Weight Loss General Obesity, Class III, BMI 40-49.9 (morbid obesity) Marva Vaughn Note: Increased activity getting out doors with daughter documented as of this encounter Results * T4 FREE (11/10/2018 12:21 EDT) T4, Free 1.8 0.8 - 2.2 ng/dl 11/10/2018 13:22 EDT [facility] Blood specimen (specimen) BLOOD SPECIMEN / Unknown 11/10/2018 12:21 EDT 11/10/2018 12:32 EDT Carlos Nuñez DO CHEMISTRY & BL OOD GAS ORDERABLES Performing Organization Address [facility] Co de Phone Number [facility] [address] [place] [address] * (ABNORMAL) TSH (11/10/2018 12:21 EDT) TSH 0.07(L) 0.47 - 4.68 uIU/ml 11/10/2018 13:36 EDT [facility] Comment: The results of this assay can be falsely lowered due to the consumption of Biotin. Blood specimen (specimen) BLOOD SPECIMEN / Unknown 11/10/2018 12:21 EDT 11/10/2018 12:32 EDT Carlos Nuñez DO CHEMISTRY & BL OOD GAS ORDERABLES Performing Organization Address [facility] Co de Phone Number [facility] [address] [place] [address] documented in this encounter Visit Diagnoses Diagnosis Hypothyroidism, postablative- Primary Other postablative hypothyroidism documented in this encounter Discontinued Medications Medication Sig Discontinue Reason Start Date End Da te VITS62/FA/OM3/DHA/EPA ( GUMMY ORAL) Take by mouth. Patient Stopped Taking documented as of this encounter Additional Health Concerns Infection Onset Date Last Indicated Resolved Time COVID-19 07/14/2021 07/14/2021 07/25/2021 22:1 6 EDT documented as of this encounter Care Teams Transplant Nurse Relationship Specialty Start Date End Date Marva Hitchcock MD [address] [place] [phone] PCP - General 06/03/17 06/28/20 Unknown, Provider, PCP - General 06/29/20 08/01/20 Camilla Jiang MD [address] [place] [phone] PCP - General Family Medicine - Primary Care 08/02/20 08/27/20 Danyel Forde DO [address] [place] [phone] PCP - General Family Medicine - Primary Care 08/29/20 04/11/21 Danyel Forde DO [address] [place] [phone] PCP - General 08/28/20 08/28/20 Ayla Solomon DO [facility] [address] Mcdaniel [address] [place] [phone] PCP - General General Surgery 04/12/21 documented as of this encounter
--- OUTSIDE RECORDS SUMMARY | 2023-12-04 20:17 | XMS_ITS | Encounter Summary ---
Author Organization [facility] Address [address] [place] [address] Care Team Providers Care Lead Cytogenetic Technologist Name Role Phone Marva Hitchcock MD Primary Care Provider Encounter Details Date Type Department Care Team (Late st Contact Info) Description 09/20/2017 Phlebotomy Only [facility] [address] [place] [address] Wafer Batter Mixer, Outpatient Graves' disease; Hypothyroidism, postablative Social History Tobacco Use Types Packs/Day Years [...] No 09/20/2017 documented as of this encounter Plan of Treatment Not on file documented as of this encounter Visit Diagnoses Diagnosis Graves' disease Toxic diffuse goiter without mention of thyrotoxic crisis or storm Hypothyroidism, postablative Other postablative hypothyroidism documented in this encounter Orders Lab Orders Without Results Count Last Ordered D ate First Ordered Date T4 FREE 1 09/20/2017 TSH 1 09/20/2017 documented in this encounter Care Teams Lead Cytogenetic Technologist Relationship Specialty Start Date End Date Marva Hitchcock MD [address] [place] [phone] PCP - General 06/03/17 06/28/20 documented as of this encounter
--- OUTSIDE RECORDS SUMMARY | 2023-12-04 20:17 | XMS_ITS | Encounter Summary ---
Author Organization [facility] Address [address] [place] [address] Care Team Providers Care County Agent Name Role Phone Marva Hitchcock MD Primary Care Provider Reason for Visit * Reason Comments ADHD Medication Management Encounter Details Date Type Department Care Team (Latest Contact Info) Description 05/05/2019 13:30 EST Office Visit [address] [address] Silva Mckee MD [address] [place] [phone] Attention deficit hyperactivity disorder (ADHD), unspecified ADHD type (Primary Dx); Hypothyroidism, postablative Social History Tobacco Use Types [...] Sign Reading Time Taken Comments Blood Pressure 128/68 05/05/2019 1335 EST Pulse 78 05/05/2019 1335 EST Temperature 35.8 ??C (96.5 ??F) 05/05/2019 1335 EST Respiratory Rate - - Oxygen Saturation - - Inhaled Oxygen Concentration - - Weight 111.1 kg (245 lb) 05/05/2019 1335 EST Height 159 cm (5' 2.6) 05/05/2019 1335 EST Body Mass Index 43.96 05/05/2019 1335 EST documented in this encounter [...] Dispensed Refills Start Date End Da te atomoxetine (STRATTERA) 80 mg capsuleIndications:Attentio n deficit hyperactivity disorder (ADHD), unspecified ADHD type Take 1 Cap by mouth daily. 30 Cap 3 05/05/2019 08/08/2021 atomoxetine (STRATTERA) 40 mg capsuleIndications:Attentio n deficit hyperactivity disorder (ADHD), unspecified ADHD type Take 1 Cap by mouth daily. 4 Cap 05/05/2019 09/13/2019 documented in this encounter Progress Notes * Silva Mckee MD - 05/05/2019 1330 EST Subjective: Patient ID: Tiny Cline is an 23 y.o. female. Chief Complaint Patient presents with ??? ADHD ??? Medication Management HPI Tiny is a 23yo F w a PMH of ADD, vit D deficiency, hypothyroidism, depression, asthma and obesity presenting for ADD follow up to discuss starting medication. Was diagnosed as a child, and took Strattera until the middle of high school. Was on 100mg daily. Then she explains that she 'rebelled' and stopped taking her medications. Recalls that it was helpfulwhen she was taking it. Lives with a friend right now, she brings her daughter to her every weekend. He has surgerycoming up so she will be there more. Daughter is turning 2yo soon. 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 Has been having trouble finishing tasks - starting and stopping different chores. Feels it's more than regular 'mom being overhwlemed'. Has been getting worse over this winter. Will alsobe looking for a job soon. Due for free T4 and TSH. Patient Active Problem List Diagnosis ??? Acanthosis nigricans ??? Vitamin D deficiency ??? Status post radioactive iodine thyroid ablation ??? PCR DNA positive for HSV1 ??? Hypothyroidism, postablative ??? Closed fracture of nasal bone ??? Depression ??? Graves' disease ??? Autoimmune disorder ([facility]) ??? Asthma ??? Obesity, Class III, BMI 40-49.9 (morbid obesity) ([facility]) Past Medical History: Diagnosis Date ??? ADD (attention deficit disorder) ??? Asthma, exercise induced ??? Autoimmune disorder ([facility]) Grave's disease ??? Depression was taking meds (can't remember what), stopped in 07/2016, no counselor ??? Herpes simplex virus (HSV) infection ??? Mood disorder ([facility]) ??? Thyroid disease Current Outpatient Medications on File Prior to Visit Medication Sig Dispense Refill ??? albuterol 90 mcg/actuation inhaler Inhale 2 Puffs as directed every 4 hours as needed for Wheezing. 1 Inhaler 11 ??? levothyroxine (SYNTHROID) 175 mcg tablet Take [...] No ROS - See HPI Objective: BP 128/68 (BP Cuff Location: Right arm, BP Patient Position: Sitting, BP Cuff Sizes: Adult, regular) Pulse 78 Temp 35.8 ??C (96.5 ??F) (Tympanic) Ht 159 cm (62.6) Wt (!) 111.1 kg (245 lb) BMI 43.96 kg/m?? Physical Exam Constitutional: She appears well-developed and well-nourished. No distress. HENT: Nose: Nose normal. Mouth/Throat: Oropharynx is clear. Eyes: Conjunctivae and EOM are normal. Neck: Normal range of motion. Cardiovascular: Normal rate and regular rhythm. Pulmonary/Chest: Effort normal and breath sounds normal. Abdominal: Soft. Musculoskeletal: Normal range of motion. Neurological: She is alert. Skin: Skin is warm and dry. Psychiatric: She has a normal mood and affect. Her behavior is normal. Judgment and thought contentnormal. Nursing note and vitals reviewed. Assessment: Tiny is a 23yo F w a PMH of ADD, vit D deficiency, hypothyroidism, depression, asthma and obesity presenting for ADD follow up to discuss starting medication. Previously did well on strattera. Hasnot been able to finish daily tasks recently. Will restart strattera at 40mg daily then increase to80mg daily. RTC 1 month for f/u and dose adjustment prn. Also reviewed social hx and will draw T4 and TSH which she is due for (per orders from endo). Plan: Tiny was seen today for adhd and medication management. Diagnoses and all orders for this visit: Attention deficit hyperactivity disorder (ADHD), unspecified ADHD type - atomoxetine (STRATTERA) 40 mg capsule; Take 1 Cap by mouth daily. - atomoxetine (STRATTERA) 80 mg capsule; Take 1 Cap by mouth daily. Hypothyroidism, postablative - TSH - T4 FREE Return in about 4 weeks (around 06/02/2019), or if symptoms worsen or fail to improve, for ADDY - adhd, starting med tx. Silva Mckee MD 05/05/2019 14:07 * Dahlia Eugene - 05/05/2019 1330 EST Venipuncture performed for TSH, T4 Free Per orders of Silva Mckee MD Diagnosis of Hypothyroidism, postablative (E89.0) DAHLIA EUGENE 05/05/2019 14:14 * Delfino Del Rosairo MD - 05/05/2019 1330 EST Attestation statement: I discussed the patient with the resident at the time of the visit and agreewith the medical decision making and plan of care. Delfino Del Rosario MD 9:42 05/06/2019 documented in this encounter Plan of Treatment Not on file documented as of this encounter Goals Goal Patient Goal Type Associated Problems Recent Progress Patient-Stated? Author Weight Loss General Obesity, Class III, BMI 40-49.9 (morbid obesity) No Marva Hitchcock Note: Increased activity getting out doors with daughter documented as of this encounter Procedures Procedure Name Priority Date/Time Associated Diagnosis Comments TSH Routine 05/05/2019 14:12 EST Hypothyroidism, postablative T4 FREE Routine 05/05/2019 14:12 EST Hypothyroidism, postablative documented in this encounter Results * T4 FREE (05/05/2019 14:12 EST) T4, Free 1.4 0.8 - 2.2 ng/dL 05/05/2019 20:23 EST [facility] Blood VENOUS BLOOD / Unknown Venipuncture / Unknown 05/05/2019 14:12 EST 05/05/2019 14:12 EST Carlos Nuñez DO CHEMISTRY & BL OOD GAS ORDERABLES Performing Organization Address [facility]/ZIP Co de Phone Number [facility] [address] [place] [address] * TSH (05/05/2019 14:12 EST) TSH 3.83 0.47 - 4.68 uIU/mL 05/05/2019 20:37 EST [facility] Blood VENOUS BLOOD / Unknown Venipuncture / Unknown 05/05/2019 14:12 EST 05/05/2019 14:12 EST Narrative [facility] - 05/05/2019 20:37 EST The results of this assay can be falsely lowered due to the consumption of Biotin. Carlos Nuñez DO CHEMISTRY & BL OOD GAS ORDERABLES Performing Organization Address [facility] Co de Phone Number [facility] [address] [place] [address] documented in this encounter Visit Diagnoses Diagnosis Attention deficit hyperactivity disorder (ADHD), unspecified ADHD type- Primary Hypothyroidism, postablative Other postablative hypothyroidism documented in this encounter Care Teams County Agent Relationship Specialty Start Date End Date Marva Hitchcock MD [address] [place] [phone] PCP - General 06/03/17 06/28/20 documented as of this encounter
--- OUTSIDE RECORDS SUMMARY | 2023-12-04 20:17 | XMS_ITS | Encounter Summary ---
Author Organization [facility] Address [address] [place] [address] Care Team Providers Care Clothes Wringer Name Role Phone Marva Hitchcock MD Primary Care Provider Reason for Visit * Reason Comments Lipoma Removal left side Encounter Details Date Type Department Care Team (Late st Contact Info) Description 10/28/2018 11:30 EDT Office Visit [address] [phone] Marva Hitchcock MD [address] [place] [address] [phone] Lipoma of torso (Primary Dx); Hypothyroidism, postablative Social History Tobacco [...] Sign Reading Time Taken Comments Blood Pressure 112/62 10/28/2018 1125 EDT Pulse 76 10/28/2018 1125 EDT Temperature - - Respiratory Rate - - Oxygen Saturation - - Inhaled Oxygen Concentration - - Weight 98 kg (216 lb) 10/28/2018 1125 EDT Height - - Body Mass Index 38.88 05/24/2018 1543 EDT documented in this encounter [...] Instructions * Patient Instructions* Marva Hitchcock - 10/28/2018 11:30 EDT Images from the original note were not included. [facility] Patient Instructions Cuts Closed With Stitches: Care Instructions Your Care Instructions A cut can happen anywhere on your body. The doctor used stitches to close the cut. Using stitches also helps the cut heal and reduces scarring. Sometimes pieces of tape called Steri-Strips are put over the stitches. If the cut went deep and through the skin, the doctor may have put in two layers of stitches. The deeper layer brings the deep part of the cut together. These stitches will dissolve and don't need jose removed. The stitches in the upper layer are the ones you see on the cut. You will probably have a bandage over the stitches. You will need to have the stitches removed, usually in 7 to 14 days. The doctor has checked you carefully, but problems can develop later. If you notice any problems ornew symptoms, get medical treatment right away. Follow-up care is a pringle part of your treatment and safety. Be sure to make and go to all appointments, and call your doctor if you are having problems. It's also a good idea to know your test resultsand keep a list of the medicines you take. How can you care for yourself at home? ?? Keep the cut dry for the first 24 to 48 hours. After this, you can shower if your doctor okays it. Pat the cut dry. ?? Don't soak the cut, such as in a bathtub. Your doctor will tell you when it's safe to get the cut wet. ?? If your doctor told you how to care for your cut, follow your doctor's instructions. If you did not get instructions, follow this general advice: ? After the first 24 to 48 hours, wash around the cut with clean water 2 times a day. Don't use hydrogen peroxide or alcohol, which can slow healing. ? You may cover the cut with a thin layer of petroleum jelly, such as Vaseline, and a nonstick bandage. ? Apply more petroleum jelly and replace the bandage as needed. ?? Prop up the sore area on a pillow anytime you sit or lie down during the next 3 days. Try to keep it above the level of your heart. This will help reduce swelling. ?? Avoid any activity that could cause your cut to reopen. ?? Do not remove the stitches on your own. Your doctor will tell you when to come back to have the stitches removed. ?? Leave Steri-Strips on until they fall off. ?? Be safe with medicines. Read and follow all instructions on the label. ? If the doctor gave you a prescription medicine for pain, take it as prescribed. ? If you are not taking a prescription pain medicine, ask your doctor if you can take an mnni-gys-zdfknxb medicine. When should you call for help? Call your doctor now or seek immediate medical care if: ? You have new pain, or your pain gets worse. ? The skin near the cut is cold or pale or changes color. ? You have tingling, weakness, or numbness near the cut. ? The cut starts to bleed, and blood soaks through the bandage. Oozing small amounts of blood is normal. ? You have trouble moving the area near the cut. ? You have symptoms of infection, such as: ? Increased pain, swelling, warmth, or redness around the cut. ? Red streaks leading from the cut. ? Pus draining from the cut. ? A fever. ??Watch closely for changes in your health, and be sure to contact your doctor if: ? The cut reopens. ? You do not get better as expected. Where can you learn more? Go to [email or web address] or log into your Instaradio Online account at [email or web address]. Enter R217 in the search box to learn more about Cuts Closed With Stitches: Care Instructions. Current as of: November 21, 2017 Content Version: 12.0 ?? 8031-7212 Curverider. Care instructions adapted under license by [facility] If you have questions about a medical condition or this instruction, always ask your healthcare professional. [employer] disclaims any warranty or liability foryour use of this information. [facility] Patient Instructions Learning About Benign Soft Tissue Tumors What is a benign soft tissue tumor? A soft tissue tumor is a growth of abnormal cells in the body's soft tissues. These tissues includethe muscles, lymph and blood vessels, nerves, and fat. They can also include cartilage and other connective tissues. When a tumor is benign (say Adrianne), that means it's not cancer. Most soft tissue tumors are benign. Benign tumors don't spread to other tissues and organs. They usually aren't life-threatening. But they can cause problems if they grow too much, press on nerves, or cause pain. What are some common types of these tumors? Some common types of benign soft tissue tumors include: Lipomas. These tumors form from fat cells. Angiolipomas are a type of lipoma made up of fat and blood vessels. Nerve sheath tumors. Tumors on a nerve may include schwannomas and neurofibromas. They might need to be removed. Benign synovial tumors. These appear around the tendons, near the knee, hip, elbow, or shoulder. Examples include giant cell tumor of the tendon sheath and synovial chondromatosis. Hemangiomas. These are tumors of the blood vessels. Desmoid tumors. These tumors commonly appear on the shoulder, chest, back, and thighs. Nodular fasciitis. These are most common in the arms. They can grow quickly. Other types of tumors may appear on the skin, belly, arms and legs, organs, and nerves. What are the symptoms? Sometimes a tumor can be felt as a bump under the skin. Or if the tumor is deep enough below the skin, you may not be able to feel it. You may also feel pain near the tumor if it's large or pressing on something. How are these tumors diagnosed? Your doctor will ask you about your symptoms and past health and will examine you. A physical exam can help your doctor diagnose some soft tissue tumors. Your doctor may find a tumor when taking X-rays or other imaging tests for another problem. If your doctor isn't sure what the growth is and your symptoms could be signs of a tumor, you will get some tests. The tests can help make sure it's not cancer. They can also help your doctor figure out the best treatment for the tumor. ?? You may have one or more imaging tests to get a better look at the tumor. These may include: ? X-rays. ? Ultrasound tests. ? CT scan. ? MRI scan. ?? You may need blood tests and lab work. ?? You may need a biopsy so a sample of the tumor can be looked at under a microscope. This sample may also be used to test for biomarkers. They will help with planning treatment. Doctors may also look at other parts of your body for other tumors. How are they treated? Some benign soft tissue tumors that aren't causing problems can be watched over time. Some may remain stable or go away on their own. But if the tumor causes pain, is growing larger, or affects your movement, it may need to be removed. You may also choose to have these tumors removed if they bother you or if you don't like how they look. Doctors may remove some tumors with surgery. In some cases, other treatments, including medicines, may be used. Talk with your doctor or specialist about other types of treatments for the tumor. After your treatment, your doctor may want to check the area again to make sure that the growth doesn't come back. Follow-up care is a pringle part of your treatment and safety. Be sure to make and go to all appointments, and call your doctor if you are having problems. It's also a good idea to know your test resultsand keep a list of the medicines you take. Where can you learn more? Go to www.healthwise.net/[email or web address] or log into your Instaradio Online account at [email or web address]. Enter S210 in the search box to learn more about Learning About Benign Soft Tissue Tumors. Current as of: February 16, 2018 Content Version: 12.0 ?? 6907-2213 Curverider. Care instructions adapted under license by [facility] If you have questions about a medical condition or this instruction, always ask your healthcare professional. [employer] disclaims any warranty or liability foryour use of this information. documented in this encounter Ordered Prescriptions Prescription Sig Dispensed Refills Start Date End Da te traMADol (ULTRAM) 50 mg tablet Take 1 Tab by mouth 2 times daily as needed for Pain (breakthrough pain). Daily Max: 100 mg 4 Tab 10/28/2018 03/02/2019 levothyroxine (SYNTHROID) 175 mcg tabletIndications:Hypothyr oidism, postablative Take 1 Tab by mouth daily. 90 Tab 1 10/28/2018 11/16/2018 documented in this encounter Progress Notes * Marva Hitchcock - 10/28/2018 1130 EDT PROGRESS NOTE Chief Complaint Patient presents with ??? Lipoma Removal left side HPI: Tiny, 23 y.o. is here for Lipoma removal on the left side Painful Reports after her last lipoma removal she had increased pain that was not covered by tylenol and motrin. Needs refill on thyroid medication. ROS: 10 Systems reviewed found to be [...] Obesity, Class III, BMI 40-49.9 (morbid obesity) (HCC-CMS) Past Surgical History: Procedure Laterality Date ??? [...] needed for Wheezing. 1 Inhaler 11 ??? drospirenone-ethinyl estradiol (ZACH, 28,) 3-0.02 mg per tablet Take 1 Tab by mouth daily for 336 days. 28 Tab 11 ??? levothyroxine (SYNTHROID) 175 mcg tablet Take 1 Tab by mouth daily. 90 Tab 1 ??? valACYclovir (VALTREX) 500 mg tablet TAKE ONE TABLET BY MOUTH EVERY 12 hours 10 Tab 1 No current facility-administered medications for this visit. Allergies Allergen Reactions ??? Lorabid [Loracarbef] Nausea And Vomiting ??? Yeast, Dried Nausea And Vomiting If consumes large amounts will develop N/V PE: BP 112/62 (BP Cuff Location: Right arm, Patient Position: Sitting, BP Cuff Sizes: Adult, large) Pulse 76 Wt 98 kg (216 lb) BMI 38.88 kg/m?? General NAD alert and oriented ??3 Mood: reports normal affect is appropriate. She makes eye contact answers questions appropriately not flat. HEENT: head normocephalic eyes EOMI sclera normal hearing grossly intact Respiratory: normal respiratory effort bilaterally Neuro: sensation to light touch intact. Skin: intact no signs of infection. 3mm x 2cm lipoma palpable and removed today. Extremities: she is full range of motion in her upper and lower extremities Assessment: 23-year-old female comes in for lipoma removal due to pain. Patient tolerated procedurewell without comp occasion. She will follow-up in 10 days to 14 days for suture removal. Plan: Lipoma removal - 2 sutures with 3.0 vicryl were placed deep. 3 sutures with 4.0 prolene were placedinterrupted pattern. Need removal of 3 sutures in 10-14 days. Discussed keeping area clean and dry. Discussed reasons to return:erythema, pus or drainage. Discussed using tylenol and motrin. If she has breakthrough pain over the weekend can use tramadol 4 tablets given total. Will not refill. Discussed keeping away from children. hypothyroidism Synthroid was filled in the office today. Needs repeat TSH - order pended to get during nursing visit. Marva Hitchcock MD This note was completed using voice dragon system there maybe small errors when using dictation. documented in this encounter Procedure Notes * Marav Hitchcock - 10/28/2018 1130 EDT Lipoma Excision Procedure Note Pre-operative Diagnosis: Lipoma of the trunk Post-operative Diagnosis: Lipoma of the trunk Procedure Details After verbal and written consent including the possibilities of reaction to medication, bleeding, infection, the need for additional procedures, failure to diagnose a condition, and creating a complication operation were discussed with the patient. The patient concurred with the proposed plan, giving informed consent. The site of surgery properly noted/marked. The patient was placed laying on her side. The trunk was prepped and draped in standard fashion with betadine x 2. 2% lidocaine with epinephrine (6mL) was used to anesthetize the skin surrounding a 2cm lesion. A transverse incision was made over the lesion. Sharp and blunt dissection were used to mobilize the mass which was in a subfascial location. Hemostasis was achieved with pressure using guaze. Closure was achieved a with layered closure utilizing a 3-0 Vicryl x 2 deep then 4.0 prolene interuppeted sutures x 3. Then the area was cleaned using alcohol swabs and bacitracin was applied andTegaderm was placed over top. Findings: Lipoma Estimated Blood Loss: Minimal Specimens: 2.5 cm lipoma Complications: None; patient tolerated the procedure well. Marva Hitchcock MD documented in this encounter Plan of Treatment Not on file documented as of this encounter Goals Goal Patient Goal Type Associated Problems Recent Progress Patient-Stated? Author Weight Loss General Obesity, Class III, BMI 40-49.9 (morbid obesity) No Marva Hitchcock Note: Increased activity getting out doors with daughter documented as of this encounter Visit Diagnoses Diagnosis Lipoma of torso- Primary Hypothyroidism, postablative Other postablative hypothyroidism documented in this encounter Discontinued Medications Medication Sig Discontinue Reason Start Date End Da te levothyroxine (SYNTHROID) 175 mcg tabletIndications:Hypothyr oidism, postablative Take 1 Tab by mouth daily. Reorder 04/07/2018 10/26/2018 documented as of this encounter Care Teams Clothes Wringer Relationship Specialty Start Date End Date Marva Hitchcock MD [address] [place] [phone] PCP - General 06/03/17 06/28/20 documented as of this encounter
--- OUTSIDE RECORDS SUMMARY | 2023-12-04 20:17 | XMS_ITS | Encounter Summary ---
Author Organization [facility] Address [address] [place] [address] Care Team Providers Care Study Specialist Name Role Phone Marva Hitchcock MD Primary Care Provider Reason for Visit * Reason Comments Contraception Encounter Details Date Type Department Care Team (Late st Contact Info) Description 07/12/2018 10:00 EDT Office Visit [address] [phone] Marva Hitchcock MD [address] [place] [address] [phone] Hypothyroidism, unspecified type (Primary Dx); control counseling; Obesity, Class III, BMI 40-49.9 (morbid obesity) ([facility]) Discharge Disposition: Auto Discharge Social History Tobacco [...] Sign Reading Time Taken Comments Blood Pressure 128/76 07/12/2018 1026 EDT Pulse 76 07/12/2018 1026 EDT Temperature - - Respiratory Rate - - Oxygen Saturation - - Inhaled Oxygen Concentration - - Weight 110.7 kg (244 lb) 07/12/2018 1026 EDT Height - - Body Mass Index 43.92 05/24/2018 1543 EDT documented in this encounter [...] as of this encounter Discharge Diagnoses Diagnosis E03.9 Hypothyroidism, unspecified-E03.9[ICD-10-CM] documented in this encounter Ordered Prescriptions Prescription Sig Dispensed Refills Start Date End Da te drospirenone-ethinyl estradiol (ZACH, 28,) 3-0.02 mg per tablet Take 1 Tab by mouth daily for 336 days. 28 Tab 11 07/12/2018 03/02/2019 documented in this encounter Discharge Disposition Disposition Code Departure Means Destination Auto Discharge documented in this encounter Progress Notes * Marva Hitchcock - 07/12/2018 1000 EDT PROGRESS NOTE Chief Complaint Patient presents with ??? Contraception HPI: Tiny, 22 y.o. is here for 1) Control Counseling. Reports she has used pill in the past. States she was bad about taking it the past when she was younger. But not Was on implant - had it in for 3 years but then removed to to get prenancy. 4 years later Wants to try for another one for 2 years. Reports not interested in IUD States now that she takes levothyroxine daily so feels like it will be easier. Reports liked zach. Last Mense - 1 week ago. No longer breast feeding. Denies any family history of clotting disorders. Denies any dvt, pe. Hypothyroidism - taking doses daily ROS: 10 Systems reviewed found to be negative except as above. Patient Active Problem List Diagnosis ??? Acanthosis nigricans ??? Vitamin D deficiency ??? Status post radioactive iodine thyroid ablation ??? PCR DNA positive for HSV1 ??? Hypothyroidism, postablative ??? Closed fracture of nasal bone ??? Depression ??? Graves' disease ??? Autoimmune disorder ([facility]) ??? Asthma ??? Obesity, Class III, BMI 40-49.9 (morbid obesity) ([facility]) Past Surgical History: Procedure Laterality Date ??? [...] mouth daily. (Patient not taking: Reported on 07/12/2018) 84 Tab 4 ??? VITS62/FA/OM3/DHA/EPA ( GUMMY ORAL) Take by mouth. ??? valACYclovir (VALTREX) 500 mg tablet TAKE ONE TABLET BY MOUTH EVERY 12 hours 10 tablet 1 No current facility-administered medications for this visit. Allergies Allergen Reactions ??? Lorabid [Loracarbef] Nausea And Vomiting ??? Yeast, Dried Nausea And Vomiting If consumes large amounts will develop N/V PE: BP 128/76 (BP Cuff Location: Right arm, Patient Position: Sitting, BP Cuff Sizes: Adult, large) Pulse 76 Wt (!) 110.7 kg (244 lb) BMI 43.92 kg/m?? General NAD alert and oriented ??3 Mood: reports normal affect is appropriate. She makes eye contact answers questions appropriately not flat. HEENT: head normocephalic eyes EOMI sclera normal hearing grossly intact Respiratory: normal respiratory effort bilaterally Neuro: sensation to light touch intact Skin: intact no signs of infection Extremities: she is full range of motion in her upper and lower extremities Assessment: 22 yo female Plan: 1) control counseling - Discussed oral control counseling Denies any recent outbreaks of herpes - On valtrex when she starts to have symptoms. Denies any concerns for STDs other than herpes which she treats If she gets a cold sore that follow immediately. Discussed estrogen in BC if restarts smoking then need to think about a new form of contraception. POC urine was negative will start Zach 1 tab daily 2) Hypothyroidism TSH, FT4 today Has follow up with Endocrinology 3) Obesity - BMI 43 Increasing activity with daughter Getting active out doors Marva Hitchcock MD This note was completed using voice dragon system there maybe small errors when using dictation. * Yazan Sanchez - 07/12/2018 1000 EDT Urine collected for UPT per Dr. Marva SANCHEZ 07/12/2018 11:11 * Yazan Sanchez - 07/12/2018 1000 EDT Venipuncture performed for TSH Per orders of Dr. Mrava Hitchcock Diagnosis of E03.9 YAZAN SANCHEZ 07/19/2018 10:49 documented in this encounter Plan of Treatment Not on file documented as of this encounter Goals Goal Patient Goal Type Associated Problems Recent Progress Patient-Stated? Author Weight Loss General Obesity, Class III, BMI 40-49.9 (morbid obesity) No Marva Hitchcock Note: Increased activity getting out doors with daughter documented as of this encounter Procedures Procedure Name Priority Date/Time Associated Diagnosis Comments POCT TEST, VISUAL READ Routine 07/12/2018 10:55 EDT control counseling TSH Routine 07/12/2018 10:45 EDT Hypothyroidism, unspecified type documented in this encounter Results * POCT TEST, VISUAL READ (07/12/2018 10:55 EDT) Test, Urine, POC Negative . POINT OF CARE [facility] Control Line Present Yes POINT OF CARE [facility] Background Clear? Yes POINT OF CARE [facility] Urine specimen (specimen) 07/12/2018 10:55 EDT Marva Hitchcock MD POINT OF CARE TEST ORDERABLES POINT OF CARE [facility] * (ABNORMAL) TSH (07/12/2018 10:45 EDT) TSH 85.60(H) 0.47 - 4.68 uIU/ml 07/12/2018 19:35 EDT [facility] Comment: The results of this assay can be falsely lowered due to the consumption of Biotin. Blood specimen (specimen) BLOOD SPECIMEN / Unknown 07/12/2018 10:45 EDT 07/12/2018 18:39 EDT Marva Hitchcock MD CHEMISTRY & BLOOD G ORDERABLES [facility] [address] [place] [address] documented in this encounter Visit Diagnoses Diagnosis Hypothyroidism, unspecified type- Primary control counseling General counseling for initiation of other contraceptive measures Obesity, Class III, BMI 40-49.9 (morbid obesity) ([facility]) Morbid obesity documented in this encounter Discontinued Medications Medication Sig Discontinue Reason Start Date End Da te ibuprofen (MOTRIN) 400 mg tablet Take 1 Tab by mouth every 4 hours as needed for Pain. 08/10/2017 07/12/2018 metroNIDAZOLE 1.3 % gel Place 1 Tube vaginally once for 1 dose. 11/23/2017 07/12/2018 norethindrone (MICRONOR) 0.35 mg tablet Take 1 Tab by mouth daily. 08/23/2017 07/12/2018 documented as of this encounter Care Teams Study Specialist Relationship Specialty Start Date End Date Marva Hitchcock MD [address] [place] [phone] PCP - General 06/03/17 06/28/20 documented as of this encounter
--- OUTSIDE RECORDS SUMMARY | 2023-12-04 20:17 | XMS_ITS | Encounter Summary ---
Author Organization [facility] Address [address] [place] [address] Care Team Providers Care Fur Weigher Name Role Phone Marva Hitchcock MD Primary Care Provider Reason for Visit * Reason Comments Well Woman Exam Encounter Details Date Type Department Care Team (Late st Contact Info) Description 03/02/2019 10:15 EST Office Visit [facility] OBGYN Services - [facility] [address], [place] [address] Anju Dupont NP [address] [facility], Level [address] [place] [phone] Encounter for gynecological examination without abnormal finding (Primary Dx); Pre-conception counseling Social History Tobacco Use Types [...] Sign Reading Time Taken Comments Blood Pressure 118/84 03/02/2019 1022 EST Pulse - - Temperature - - Respiratory Rate - - Oxygen Saturation - - Inhaled Oxygen Concentration - - Weight 109.1 kg (240 lb 9.6 oz) 03/02/2019 1022 EST Height 158.8 cm (5' 2.52) 03/02/2019 1022 EST Body Mass Index 43.28 03/02/2019 1022 EST documented in this encounter Functional Status [...] as of this encounter Progress Notes * Anju Dupont, BRAND PLANNER - 03/02/2019 1015 EST Tiny Cline is an 23 y.o. woman who presents for annual lens molder exam. Patient's last menstrual period was 01/24/2019 (exact date). Periods are regular every 30 days and last 4 days. Dysmenorrhea:mild, occurring first 1-2 days of flow. Cyclic symptoms include: None. No intermenstrual bleeding, spotting, or discharge. Last pap NILM in 08/2017 Contraceptive methods: NA / none. ?? Regular self breast exam: no. ?? Sexual History: new partners since last STD check. ?? Domestic Violence History: no. ?? Diet: common adult Patient Active Problem List Diagnosis Date Noted ??? Status post radioactive iodine thyroid ablation 10/05/2012 For Grave's ??? Obesity, Class III, BMI 40-49.9 (morbid obesity) ([facility]) 07/08/2018 ??? Asthma 01/08/2017 ??? Autoimmune disorder ([facility]) Grave's disease ??? Graves' disease 12/26/2014 ??? Hypothyroidism, postablative 10/06/2013 ICD10 Update Auto Replacement ??? Depression 10/30/2014 ??? Closed fracture of nasal bone 03/19/2014 IMO Update Auto Replacement ??? 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 Acanthosis nigricans 03/05/2010 ??? Vitamin D deficiency 03/05/2010 OB History Para Term AB Living 1 1 1 0 0 1 SAB TAB Ectopic Multiple Live Births 0 0 0 0 1 # Outcome Date GA Lbr Eduardo/2nd Weight Sex Delivery Anes PTL Lv 1 Term 08/08/17 40w3d 11:38 / 01:05 3834 g (8 lb 7.2 oz) F EPI WEI Past Medical History: Diagnosis Date ??? ADD (attention deficit disorder) ??? Asthma, exercise induced ??? Autoimmune disorder (HCC-CMS) Grave's disease ??? Depression was taking meds (can't remember what), stopped in 07/2016, no counselor ??? Herpes simplex virus (HSV) infection ??? Mood disorder (HCC-CMS) ??? Thyroid disease Past Surgical History: Procedure Laterality Date ??? LIPOMA RESECTION 2017 on abdomen Family History Problem Relation Age of Onset [...] ??? Heart Attack Under 50 Neg Hx Social History Tobacco Use ??? Smoking status: [...] since dating ultrasound ??? Drug use: No Current Outpatient Medications Medication Sig Dispense Refill ??? albuterol 90 mcg/actuation inhaler Inhale 2 Puffs as directed every 4 hours as needed for Wheezing. 1 Inhaler 11 ??? levothyroxine (SYNTHROID) 150 mcg tablet Take 1 Tab by mouth daily. 90 Tab 3 ??? valACYclovir (VALTREX) 500 mg tablet TAKE ONE TABLET BY MOUTH TWICE A DAY (Patient taking differently: TAKE ONE TABLET BY MOUTH TWICE A DAY for 5 days prn) 10 Tab 1 No current facility-administered medications for this visit. Allergies Allergen Reactions ??? Lorabid [Loracarbef] Nausea And Vomiting ??? Yeast, Dried Nausea And Vomiting If consumes large amounts will develop N/V Review Of Systems: As mentioned above and in Subjective, all other Review of Systems reviewed and negative. Objective: BP 118/84 (BP Cuff Location: Left arm, BP Patient Position: Sitting, BP Cuff Sizes: Adult, large) Ht 158.8 cm (62.52) Wt (!) 109.1 kg (240 lb 9.6 oz) LMP 01/24/2019 (Exact Date) BMI 43.28 kg/m?? General Appearance: alert, no acute distress Neck: Neck supple. No adenopathy. Thyroid symmetric, normal size, Breast: Inspection negative. No nipple discharge or bleeding. No massses or tenderness. No axillarynodes or masses. Lungs: clear to auscultation Heart: regular rate and rhythm Abdomen: Abdomen soft, non-tender. No masses, organomegaly Pelvic: Exam field mechanical meter tester declined by patient URETHRA: normal appearing urethra with no masses, tenderness, lesions, or scarring CLITORIS: normal appearing clitoris with no hypertrophy or enlargement BARTHOLIN'S GLANDS: normal appearing Bartholin's glands with no masses, tenderness or erythema VULVA: normal appearing vulva with no masses, tenderness, or lesions VAGINA: normal appearing vagina with normal pelvic support, no abnormal discharge, lesions, cystocele, or rectocele CERVIX: normal appearing cervix without discharge or lesions, slight ectropion UTERUS: unable to palpate d/t body habitus ADNEXA: unable to palpate d/t body habitus BLADDER: bladder normal with no distension, masses, or tenderness ANUS AND PERINEUM: anus appears normal, perineum appears normal Assessment: Normal lens molder exam Plan: Pap smear: no pap obtained; due by 08/2020 Other Orders Placed This Visit Procedures ??? Chlamydia/N. gonorrhoeae Amplified RNA ??? MEASLES IGG AB Patient Education: folate supplementation for NTD prophylaxis Return Visit: 1 yr annual exam Anju Dupont APRN documented in this encounter Plan of Treatment [...] Comments CHLAMYDIA/N. GONORRHOEAE AMPLIFIED NUCLEIC ACID Routine 03/02/2019 11:11 EST Encounter for gynecological examination without abnormal finding documented in this encounter Results * MEASLES IGG AB (03/02/2019 11:29 EST) Measles IgG Ab Positive See Note 03/02/2019 13:41 EST [facility] Comment:Presence of detectab le measles virus IgG antibodies. Blood VENOUS BLOOD / Unknown Venipuncture / Unknown 03/02/2019 11:29 EST 03/02/2019 11:46 EST Anju Dupont TIRE AND TUBE REPAIRER IMMUNOLOGY AND SE ROLOGY ORDERABLES [facility] [address] [place] [address] * CHLAMYDIA/N. GONORRHOEAE AMPLIFIED RNA (03/02/2019 11:11 EST) Neisseria gonorrhoeae Result Negative Negative 03/03/2019 12:52 EST [facility] Chlamydia trachomatis Result Negative Negative 03/03/2019 12:52 EST [facility] ENTIRE VAGINA / Unknown 03/02/2019 11:11 EST 03/02/2019 11:24 EST Anju Dupont TIRE AND TUBE REPAIRER MICROBIOLOGY - GE NERAL ORDERABLES [facility] [address] [place] [address] documented in this encounter Visit Diagnoses Diagnosis Encounter for gynecological examination without abnormal finding- Primary Routine gynecological examination Pre-conception counseling Other procreative management counseling and advice documented in this encounter Discontinued Medications Medication Sig Discontinue Reason Start Date End Da te drospirenone-ethinyl estradiol (ZACH, 28,) 3-0.02 mg per tablet Take 1 Tab by mouth daily for 336 days. Therapy completed 07/12/2018 03/02/2019 fluconazole (DIFLUCAN) 150 mg tablet Take 1 Tab by mouth once for 1 dose. Therapy completed 02/20/2019 03/02/2019 traMADol (ULTRAM) 50 mg tablet Take 1 Tab by mouth 2 times daily as needed for Pain (breakthrough pain). Daily Max: 100 mg Therapy completed 10/28/2018 03/02/2019 documented as of this encounter Care Teams Fur Weigher Relationship Specialty Start Date End Date Marva Hitchcock MD [address] [place] [phone] PCP - General 06/03/17 06/28/20 documented as of this encounter
--- OUTSIDE RECORDS SUMMARY | 2023-12-04 20:17 | XMS_ITS | Encounter Summary ---
Author Organization [facility] Address [address] [place] [address] Care Team Providers Care Second Baker Name Role Phone Marva Hitchcock MD Primary Care Provider Reason for Visit * Reason Onset Date Comments Medications Refill 04/17/2019 Encounter Details Date Type Department Care Team (Late st Contact Info) Description 04/17/[address] [phone] Marva Hitchcock MD [address] [place] [phone] Medications Refill Social History Tobacco Use Types [...] MOUTH TWICE A DAY 10 Tab 1 04/17/2019 05/28/2019 documented in this encounter Miscellaneous Notes * Telephone Encounter - Janet Simpson RN - 04/17/2019 3899 EST From: Tiny Cline Sent: 04/17/2019 14:18 EST Subject: Medication Renewal Request Tiny Cline would like a refill of the following medications: valACYclovir (VALTREX) 500 mg tablet [Marva Hitchcock MD] Preferred pharmacy: [facility] jose roberto [facility] Medication(s) Requested: Valacyclovir 500 mg Preferred Pharmacy: [facility] Is patient out of medication? Unknown Last Refill Date: 11/21/18 (#10w/1) Last Visit Date with Ordering Provider: 10/28/18 Next Non-Acute Visit Date Scheduled with Care Team: No. JANET SIMPSON RN 04/17/2019 14:24 documented in this encounter Plan of Treatment [...] TABLET BY MOUTH TWICE A DAY Reorder 11/21/2018 04/17/2019 documented as of this encounter Care Teams Second Baker Relationship Specialty Start Date End Date Marva Hitchcock MD [address] [place] [phone] PCP - General 06/03/17 06/28/20 documented as of this encounter
--- OUTSIDE RECORDS SUMMARY | 2023-12-04 20:17 | XMS_ITS | Encounter Summary ---
Author Organization [facility] Address [address] [place] [address] Care Team Providers Care Tack Cleaner Name Role Phone Marva Hitchcock MD Primary Care Provider [phone] Reason for Visit * Reason Onset Date Comments Menstrual Problem 03/24/2018 Encounter Details Date Type Department Care Team (Late st Contact Info) Description 03/24/[address] [phone] Marva Hitchcock MD [address] [place] [phone] Menstrual Problem Social History Tobacco Use Types Packs/Day Years [...] No 09/29/2017 documented as of this encounter Procedure Notes * Yazan Sanchez - 03/24/2018 1150 EST Care and concern call made. Left message for the patient to call our office if still symptomatic orhas any question/concerns. YAZAN SANCHZE 03/24/2018 11:51 documented in this encounter Plan of Treatment Not on file documented as of this encounter Visit Diagnoses Not on filedocumented in this encounter Care Teams Tack Cleaner Relationship Specialty Start Date End Date Marva Hitchcock MD [address] [place] [phone] PCP - General 06/03/17 06/28/20 documented as of this encounter
--- OUTSIDE RECORDS SUMMARY | 2023-12-04 20:17 | XMS_ITS | Encounter Summary ---
Author Organization [facility] Address [address] [place] [address] Care Team Providers Care Bilingual Social Worker Name Role Phone Marva Hitchcock MD Primary Care Provider Encounter Details Date Type Department Care Team (Late st Contact Info) Description 09/20/2017 Results Only [facility] Endocrinology - [facility] [address] [place] [address] Carlos Nuñez, [address] [facility] [address] [place] [phone] Social History Tobacco Use Types [...] No 09/20/2017 Cognitive Status Response Date of Assess ent Because of a physical, menta l, or emotional condition, does this person have serious difficulty concentrating, remembering, or making decisions? No 09/20/2017 documented as of this encounter Plan of Treatment Not on file documented as of this encounter Procedures Procedure Name Priority Date/Time Associated Diagnosis Comments TSH Routine 09/20/2017 12:06 EDT T4 FREE Routine 09/20/2017 12:06 EDT PAP TEST- RESULT ONLY Routine 09/20/2017 0:00 EDT documented in this encounter Results * (ABNORMAL) TSH (09/20/2017 12:06 EDT) TSH 0.03(L) 0.47 - 4.68 uIU/ml 09/20/2017 13:[address] [facility] Comment: The results of this assay can be falsely lowered due to the consumption of Biotin. BLOOD SPECIMEN / Unknown 09/20/2017 12:06 EDT 09/20/2017 12:26 EDT Carlos Nuñez DO CHEMISTRY & BL OOD GAS ORDERABLES Performing Organization Address [facility]/ZIP Co de Phone Number [facility] [address] [place] [phone] * T4 FREE (09/20/2017 12:06 EDT) T4, Free 1.6 0.8 - 2.2 ng/dl 09/20/2017 13:[address] [facility] BLOOD SPECIMEN / Unknown 09/20/2017 12:06 EDT 09/20/2017 12:26 EDT Carlos Nuñez DO CHEMISTRY & BL OOD GAS ORDERABLES Performing Organization Address [facility]/State/ZIP Co de Phone Number [facility] [address] [place] [address] * PAP TEST- RESULT ONLY (09/20/2017 0:00 EDT) Pathology Report: CYTOPATHOLOGY REPORT Reports generated via electronic interface contain original data; however they are lacking the format of the original report. Caution should be taken when reading/interpreti ng unformatted reports. Name: ? TINY PEDRAZA ? Accession #: ? [id number] : ? 1995 (Age: 21) ??F ?Collect Date: ? 09/20/2017 Location: ? OBGYN ? Receive Date: ? 09/20/2017 Provider: ?ADRIAN NUNEZ [facility] Copy to: ? Specimen/Source: ?Pap Test, Cervix/Endocervix, ThinPrep Imaging System with manual evaluation Last Menstrual Period: ? Menstrual/Pregnanc y Status: ? Post : 6 wks Hormonal/Contracep tive Status: ? Yes Other: ? Additional clinical information: Z01.419, V72.31 ? SPECIMEN ADEQUACY ? Satisfactory for Evaluation - transformation zone component present GENERAL CATEGORIZATION ? Negative for Intraepithelial Lesion or Malignancy INTERPRETATION ? Shift in santi present suggestive of bacterial vaginosis. EDUCATIONAL NOTES/RECOMMENDATI ONS ? An additional slide was prepared and evaluated. ? Document reviewed and electronically signed by: ? TRUPTI Ivory(ASCP) ? Report Date: ??09/30/2017 13:[address] [facility] 09/20/2017 09/20/2017 Adrian Rodríguez BUNG SEWER CNM PATHOLOGY ORDERAB LES [facility] [address] [place] [address] documented in this encounter Visit Diagnoses Not on filedocumented in this encounter Care Teams Bilingual Social Worker Relationship Specialty Start Date End Date Marva Hitchcock MD [address] [place] [phone] PCP - General 06/03/17 06/28/20 documented as of this encounter
--- OUTSIDE RECORDS SUMMARY | 2023-12-04 20:17 | XMS_ITS | Encounter Summary ---
Author Organization [facility] Address [address] [place] [address] Care Team Providers Care Director Of Operations Home Health Name Role Phone Marva Hitchcock MD Primary Care Provider [phone] Reason for Visit * Reason Comments Family History Of Genetic Disease * Consult (Routine/Next Available) - Closed Specialty Diagnoses / Procedures Referred By Eugene asencio Referred To Contact [facility] Diagnoses Family history of genetic disease Marva Hitchcock MD [address] [place] [phone] Shannan Bill, MS [address] [place] [address] Referral ID Status Reason Start Date Expiration Date V isits Requested Visits Authorized [id number] Closed Specialty Services Required 08/18/2018 1 1 Encounter Details Date Type Department Care Team (Late st Contact Info) Description 09/30/2018 13:30 EDT Office Visit [facility] Clinical Genetics [facility] [address] [place], [place] [phone] Marci Power, MS [address] [place], [place] [phone] Family history of congenital or genetic condition (Primary Dx); Encounter for procreative genetic counseling and testing Social History Tobacco Use Types Packs/Day Years [...] Progress Notes * Marci Power, MS - 09/30/2018 1330 EDT [facility] CLINICAL GENETICS PROGRAM CONSULTATION: 09/30/2018 Ganga Cline is a 23 year old female who is seen at the request of Dr. Hitchcock for genetic counseling to discuss genetic testing for known familial variants in multiple family members. Her mother possesses two reported mutations in the USH2A gene (c.2276G>T and c.2299delG) (Usher syndrome) and a heteozygous deletion of exons 23-29 in the ABCC6 gene-Pseudoxanthoma elasticum (PXE). Her maternalgrandmother was tested and found to have the c.2299delG mutation in the USH2A gene. She was not tested for the ABCC6 gene. A brother was found to have the c.2276G>T mutation in the USHA2 gene and a VUS c.4618G>A. He was also found to be homozygous for the deletion of exons 23-29 in the ABCC6 gene diagnosing him with PXE, Note this brother had a gene panel performed. Another brother had targeted testing and was found to be a heterozygous carrier for the c.2299delG mutation in the USH2A gene and homozygous for the deletion of exons 23-29 in the ABCC6 gene diagnosing him with PXE. A the time of the visit, I had verbal consent from one of the brothers to share his results. We reviewed herhealth and family history and discussed information about the genetic test results. Her mother cameto the visit and Tiny declined seeing me by herself. MEDICAL HISTORY: Tiny was born at [facility]. Her mother was 29 years old and her father was 30 years old. She was delivered post dates and it was a vaginal . She weighed 7 pounds and 3 ounces. Tiny meet her developmental milestones. She reports ADHD and had a 504 plan and IEP for speech in elementary school. SHe gets migraines. She has worn glasses for distance since fifth grade. She has asthma. She has a thyroid issue. She has had a lipoma removed. Pathology was not reviewed at this visit. She reports a normal eye exam. She has a healthy one year old daughter. Her partner has scoliosis and was born with a heart murmur. FAMILY HISTORY: Tiny has two full brothers who have PXE. A paternal half- brother has Aspberger. Her father has hypertension, heart issues and a thyroid problem. A paternal uncle has had a heart attack. A paternal female first cousin has hypertension diagnosed at a young age. Her paternal grandfather at a young age form a heart attack. Her mother has retinitis pigmentosa (RP) now known to be due to an Usher syndrome gene. She has had renal cancer. Her maternal grandfather from complications due to diabetes. Her mother has diabetes and renal cancer. Tiny is of Israeli, Serbian and [place] ancestry. SUMMARY: We discussed that several dozen mutations in the USHA2 gene have been reported to cause RP, a vision disorder that causes the light-sensing cells of the retina to gradually deteriorate. USH2A gene mutations are the most common cause of the autosomal recessive form of RP, accounting for 10-15 percent of all cases. This form of the disorder is described as nonsyndromic, which means that itis not associated with the other signs and symptoms as part of a genetic syndrome. We discussed that PXE is a progressive disorder that is characterize by the accumulation of deposits of calcium and other minerals in elastic fibers. Mineralization due to PXE can affect elastic fibers in the skin, eyes and blood vessels and less frequently in the digestive tract. There can be eye a bnormalities noting changes in the pigment of the cells of the retina. Bleeding and scarring of theretina can occur. Individuals can develop arteriosclerosis or a condition called claudication that is characterized by cramping and pain during exercise due to decreased blood flow to the arms and legs. j PXE and this form of RP are inherited in an autosomal recessive inheritance pattern. This means that if both members of a couple is a carrier (one copy of the gene change) then their children would have a 25% chance not to have the condition or to be a carrier; a 50% chance to be a carrier and not have the condition and a 25% chance to be affected (having inherited the gene change from both parents). Knowing this information for Tiny is crucial to her health care. If she has RP or PXE she would need to be followed closely by specialists in those areas. If she is a carrier then she might consider with her partner that he consider having testing performed. If he is a carrier for either cond ition then they would have a 25% chance to have a child with that particular condition. After our discussion, Tiny is interested in genetic testing. She understands the prior authorization process with her insurance company. THe test we recommend would be performed by [facility], testing for [place] mutations[place] [address] [place] [address] and the cost is $250.00. A total of 45 minutes was spent in face to face time with the patient and 45 minutes of that time was spent counseling the patient about the familial genetic variants and genetic testing. THis patient was seen under the supervision of Dr. Dee De La Cruz, [...] condition- Primary Family history of congenital anomalies Encounter for procreative genetic counseling and testing documented in this encounter Care Teams Director Of Operations Home Health Relationship Specialty Start Date End Date Marva Hitchcock MD [address] [place] [phone] PCP - General 06/03/17 06/28/20 documented as of this encounter
--- OUTSIDE RECORDS SUMMARY | 2023-12-04 20:17 | XMS_ITS | Encounter Summary ---
Author Organization [facility] Address [address] [place] [address] Care Team Providers Care Rocket Propellant Plant Supervisor Name Role Phone Marva Hitchcock MD Primary Care Provider [phone] Encounter Details Date Type Department Care Team (Late st Contact Info) Description 11/10/2018 12:04 EDT - 11/10/2018 23:59 EDT Hospital Encounter [facility] [address] [place] [address] Marva Nuñez MD [facility] [place] [phone] Discharge Disposition: Home or Self Care Social [...] other screening for genetic and chromosomal anomalies-Z13.79[ICD-10-CM] E89.0 POSTPROCEDURAL HYPOTHYROIDISM[ICD-10-CM] documented in this encounter Medications at Time [...] Code Departure Means Destination Home or Self Half-Way documented in this encounter Plan of Treatment Not on file documented as of this encounter Goals Goal Patient Goal Type Associated Problems Recent Progress Patient-Stated? Author Weight Loss General Obesity, Class III, BMI 40-49.9 (morbid obesity) No Marva Hitchcock Note: Increased activity getting out doors with daughter documented as of this encounter Procedures Procedure Name Priority Date/Time Associated Diagnosis Comments MULTIPLE DOC ORDERS Routine 11/10/2018 1 2:18 EDT documented in this encounter Results * MULTIPLE DOC ORDERS (11/10/2018 12:18 EDT) Multiple Doc Orders This report contains lab results ordered 11/10/2018 12:16 EDT [facility] Comment: by another provider which were collected and processed simultaneously with the orders you requested. If you have any questions, please call Customer Service at [phone]. TOPOGRAPHY UNKNOWN / Unknown 11/10/2018 12:18 EDT 11/10/2018 12:32 EDT Carlos Nuñez DO CHEMISTRY & BL OOD GAS ORDERABLES [facility] [address] [place] [address] documented in this encounter Visit Diagnoses Not on filedocumented in this encounter Care Teams Rocket Propellant Plant Supervisor Relationship Specialty Start Date End Date Marva Hitchcock MD [address] [place] [phone] PCP - General 06/03/17 06/28/20 documented as of this encounter
--- OUTSIDE RECORDS SUMMARY | 2023-12-04 20:17 | XMS_ITS | Encounter Summary ---
Author Organization [facility] Address [address] [place] [address] Care Team Providers Care Director Of Research Name Role Phone Marva Hitchcock MD Primary Care Provider [phone] Reason for Visit * Reason Comments Post- Care * Consult (Routine) - Specialty Report Received Specialty Diagnoses / Procedures Referred By Contact Referred To Contact Obstetrics & Gynecology Diagnoses Supervision of normal first , antepartum Sridevi Perez NP [address] [phone] [place] [address] [place] [phone] Referral ID Status Reason Start Date Expiration Date Visits Requested Visits Authorized [id number] Specialty Report Received Specialty Services Required 08/10/2017 1 1 Encounter Details Date Type Department Care Team (Late st Contact Info) Description 08/23/2017 14:30 EDT Office Visit [facility] OBGYN Services - [address] [id number] Sridevi Perez NP [facility] [address] [phone] Care and examination of lactating mother (Primary Dx) Social History Tobacco Use Types [...] Sign Reading Time Taken Comments Blood Pressure 121/81 08/23/2017 1429 EDT Pulse - - Temperature - - Respiratory Rate - - Oxygen Saturation - - Inhaled Oxygen Concentration - - Weight 105.2 kg (232 lb) 08/23/2017 1429 EDT Height - - Body Mass Index 42.15 08/08/2017 1231 EDT documented in this encounter [...] No 08/08/2017 documented as of this encounter Ordered Prescriptions Prescription Sig Dispensed Refills Start Date End Da te norethindrone (MICRONOR) 0.35 mg tablet Take 1 Tab by mouth daily. 84 Tab 4 08/23/2017 07/12/2018 documented in this encounter Progress Notes * Sridevi Perez, ROSENDO - 08/23/2017 1510 EDT Tiny Cline is a 21 y.o. female who presents at 2 weeks following a [id number] of 8#7oz baby girl Jailyn, 1st degree perineal and bilateral labial lacerations repaired. Anesthesia: Epidural. course has been uncomplicated. Baby has had trouble with weight gain but is otherwise well. Has had close pedi f/u. Next visit in 3 days. Not yet back to birthweight. Pedi concerned about low milk supply. and supplementing with formula. Just got an electric pump and started pumping to supplement with EBM. Latch comfortable but baby comes off breast and is not satiated. Current Status: Bleeding: light, no clots Perineum healing, stitches mildly itchy Bowel function is normal, some constipation Bladder function is normal, denies incontinence depression screening and supports: mood improving. Hard first few days. works and is not very helpful with baby, says You're so there isn't anything I can do. He has been going to friend's house in evenings and wants her to come w baby but she doesn't feel comfortable - too many other people and kids, doesn't feel comfortable there. Has talked to about needing more emotional support and help with household tasks. 11yo daria has chores so that helps. Her mom is local and has come over a few times. Denies having anyone else she can callfor help. Feels safe at home. Appetite low some days. Able to sleep when baby sleeps. Hasn't been teary. Denies thoughts of HI or SI. Patient has not yet been sexually active. Contraception method is POP. Denies heavy bleeding/soaking pads, passing clots, abdominal pain, foul smelling vaginal discharge,vaginal itching or burning, dysuria, fever, chills, nausea, vomiting, SOB, dizziness, breast or nipple redness/tenderness/masses/breakdown. Medical History on file. Past Medical History: Diagnosis Date ??? ADD (attention deficit disorder) ??? Asthma, exercise induced ??? Autoimmune disorder (HCC-CMS) Grave's disease ??? Depression was taking meds (can't remember what), stopped in 07/2016, no counselor ??? Herpes simplex virus (HSV) infection ??? Mood disorder (HCC-CMS) ??? Thyroid disease No current outpatient prescriptions on file. Allergies: Allergies Allergen Reactions ??? Lorabid [Loracarbef] Nausea And Vomiting ??? Yeast, Dried Nausea And Vomiting If consumes large amounts will develop N/V Review of Systems Pertinent items are noted in Subjective/HPI Objective: Blood pressure 121/81, weight (!) 105.2 kg (232 lb), last menstrual period 10/29/2016, unknown if currently . General: NAD, good bonding w baby, smiling nonlabored breathing Breasts: Nipples WNL no damage Breasts appear hypoplastic Assessment: Normal 2 week PPV s/p with 1st degree perineal and bilateral labial lacs Grave's, s/p ablation History of depression, limited supports, at risk for mood disorder Asthma and supplementing for low supply - hypoplastic breast tissue POP for contraception Plan: -Micronor e-script sent to pharmacy of choice, advised to start at 4 weeks, handout with risks/benefits/instructions given -nothing PV until after 6 week PPV -continue PNVs while -increase pumping, compressions while nursing, close f/u with pedi for weight checks, offered LC support - will call PRN -discussed ways to increase social support: discuss concerns with , divide tasks, ask her mom for more hands on help -congratulated on instinct to cocoon with baby, encouraged good hand washing with visitors or when out -good hydration, Colace PRN, fiber rich diet -Thyroid cascade at 6 week visit (followed by endo) -reviewed warning signs/when to call including symptoms of PPD and PPA -RTC in 4 weeks, sooner PRN documented in this encounter Plan of Treatment Not on file documented as of this encounter Visit Diagnoses Diagnosis Care and examination of lactating mother- Primary documented in this encounter Care Teams Director Of Research Relationship Specialty Start Date End Date Marva Hitchcock MD [address] [place] [phone] PCP - General 06/03/17 06/28/20 documented as of this encounter
--- OUTSIDE RECORDS SUMMARY | 2023-12-04 20:18 | XMS_ITS | Encounter Summary ---
Author Organization [facility] Address [address] [place] [address] Care Team Providers Care Assistant Athletic Trainer Name Role Phone Thea Santamaria MD Primary Care Provider [phone] Encounter Details Date Type Department Care Team (Late st Contact Info) Description 02/18/2017 Orders Only [facility] Endocrinology - [facility] [address] [place], [place] [id number] Carlos Nuñez, [address] [facility] [address] [place] [address] Social History Tobacco Use Types Packs/Day Years Used Date Smoking Tobacco: Former Cigarettes 0.5 5 Smokeless Tobacco: Never Comments:quit prior to datin g ultrasound Alcohol Use Standard Drinks/Week Comments Yes 8 (1 standard drink = 0.6 oz pure alcohol) no drinking since dating ultrasound Comments Yes Sex and Gender Information Value Date Recorded Sex Assigned at Not on file Gender Identity Female 03/02/2019 11:17 EST Sexual Orientation Not on file documented as of this encounter Functional Status Functional Status Response Date of Assess ment Because of a physical, menta l, or emotional condition, does this person have difficulty doing errands alone such as visiting a doctor's office or shopping? No 12/24/2016 Cognitive Status Response Date of Assessm ent Because of a physical, menta l, or emotional condition, does this person have serious difficulty concentrating, remembering, or making decisions? No 12/24/2016 documented as of this encounter Plan of Treatment Not on file documented as of this encounter Visit Diagnoses Not on filedocumented in this encounter Care Teams Assistant Athletic Trainer Relationship Specialty Start Date End Date Thea Santamaria MD [address] [place] [phone] PCP - General 11/25/16 05/25/17 documented as of this encounter
--- OUTSIDE RECORDS SUMMARY | 2023-12-04 20:18 | XMS_ITS | Encounter Summary ---
Author Organization [facility] Address [address] [place] [address] Care Team Providers Care Revenue Specialist Name Role Phone Thea Santamaria MD Primary Care Provider [phone] Reason for Visit * Reason Onset Date Comments Labs Only 12/24/2016 Encounter Details Date Type Department Care Team (Late st Contact Info) Description 12/24/2016 Telephone [facility] Endocrinology - [address] [address] Aimee Lopez RN [address] [place] [address] Labs Only Social History Tobacco Use Types Packs/Day Years Used Date Smoking Tobacco: Some Days Cigarettes 0.5 5 Smokeless Tobacco: Never Alcohol Use Standard Drinks/Week Comments Yes 8 (1 standard drink = 0.6 oz pur [...] No 12/24/2016 documented as of this encounter Miscellaneous Notes * Telephone Encounter - Aimee Lopez RN - 12/24/2016 1506 EDT Standing order for TSH and Free T4 sent to [facility] documented in this encounter Plan of Treatment Not on file documented as of this encounter Visit Diagnoses Diagnosis Graves' disease- Primary Toxic diffuse goiter without mention of thyrotoxic crisis or storm Hypothyroidism, postablative Other postablative hypothyroidism documented in this encounter Care Teams Revenue Specialist Relationship Specialty Start Date End Date Thea Santamaria MD [address] [place] [phone] PCP - General 11/25/16 05/25/17 documented as of this encounter
--- OUTSIDE RECORDS SUMMARY | 2023-12-04 20:18 | XMS_ITS | Encounter Summary ---
Author Organization [facility] Address [address] [place] [address] Care Team Providers Care Water Pumping Station Engineer Name Role Phone Marva Hitchcock MD Primary Care Provider Reason for Referral * (Routine) - Receiving Office to Obtain Authorization Specialty Diagnoses / Procedures Referred By Contac t Referred To Contact Elieser Garcia APRN CNM [address] [phone] Referral ID Status Reason Start Date Expiration Date Visits Requested Visits Authorized [id number] Receiving Office to Obtain Authorization Specialty Services Required 8 1 1 Comments See your midwives for your next scheduled appointment. * (Routine) - Receiving Office to Obtain Authorization Specialty Diagnoses / Procedures Referred By Contxiomara asencio Referred To Contact Elieser Garcia APRN CNM [address] [phone] Referral ID Status Reason Start Date Expiration Date Visits Requested Visits Authorized [id number] Receiving Office to Obtain Authorization Specialty Services Required 8 1 1 Encounter Details Date Type Department Care Team (Late st Contact Info) Description 07/26/2017 16:40 EDT - 07/26/2017 17:55 EDT Hospital Encounter [facility] [address] [place] [address] Unknown, Provider, Balbina Rivas MD [address] [place] [address] Supervision of normal first , antepartum (Primary [...] Reading Time Taken Comments Blood Pressure 116/80 07/26/2017 1645 EDT Pulse - - Temperature 35.4 ??C (95.7 ??F) 07/26/2017 1645 EDT Respiratory Rate 16 07/26/2017 1645 EDT Oxygen Saturation - - Inhaled Oxygen Concentration [...] No 12/24/2016 documented as of this encounter Discharge Diagnoses Diagnosis O26.893 Other specified related conditions, third trimester-O26.893[ICD-10-CM] M25.552 Pain in left hip-M25.552[ICD-10-CM] M54.5 Low back pain-M54.5[ICD-10-CM] Z3A.38 38 weeks gestation of -Z3A.38[ICD-10-CM] documented in this encounter Medications at Time of Discharge Medication Sig Dispensed Refills Start Date End Date albuterol 90 mcg/actuation inhalerIndications:Mild intermittent asthma without complication Inhale 2 Puffs as directed every 4 hours as needed for Wheezing. 1 Inhaler 11 07/03/2016 08/24/2018 DOCOSAHEXANOIC ACID/EPA (FISH OIL ORAL) Take by mouth. 09/29/2017 levothyroxine (SYNTHROID) 175 mcg tabletIndications:Hypoth yroidism, postablative Take 1 Tab by mouth daily. 90 Tab 1 07/07/2017 04/06/2018 VITS62/FA/OM3/DHA/EPA ( GUMMY ORAL) Take by mouth. 06/29 valACYclovir (VALTREX) 500 mg tabletIndications:PCR DNA positive for HSV1 TAKE ONE TABLET BY MOUTH EVERY 12 hours 60 Tab 1 07/08/2017 08/10/2017 documented as of this encounter Discharge Disposition Disposition Code Departure Means Destination Home or Self Care documented in this encounter Progress Notes * Elieser Garcia CNM - 07/26/2017 1733 EDT L&D Triage Note C/C: Low back pain which radiates to left hip. Generalized discomforts. Tiny Cline is a 21 y.o. @ 38w4d by LMP c/w a 7w4d U/S with an uncomplicated . She has Hx Graves Dz with thyroid ablation, replaced and euthyroid on levothyroxine. Hx depressionstable off medication, and is on daily suppression therapy for Hx genital HSV. She was followed by serial U/S for growth d/t 1st trimester subchorionic hemorrhage and BMI 37. Most recent U/S EFW 43% 2716 gm with WNL CHRISTI and Vtx. HPI: Has been feeling more LBP last 3 days and was also worried baby wasn't moving as much as usual. Her mom told her she should come to L&D for evaluation. She denies contractions, fluid leak orshow. She notes normal movement now. They are having water issues at home and a shower is welcomed. O: Appears comfortable and moving normally. Here with her mom. BP 116/80 Temp (!) 35.4 ??C (95.7 ??F) (Tympanic) Resp 16 LMP 10/29/2016 FHT: 130s baseline, moderate variability, multiple large reactive accels, no decels; Category 1 tracing [place]: No contractions Neg CVAT Discomfort localized to sacral area and to left SI joint SSE: not indicated SVE: Posterior behind vertex, softening. 1-2/80%/ Vtx -1 Bedside U/S: not indicated A/P: Tiny Cline is a 21 y.o. @ 38w4d presenting with LBP/SI joint discomfort. Not in labor. Category 1 tracing. Discussed normal discomforts of late , optimal positioning and exercises to facilitate that. Encouraged daily walk, keep hydrated Reviewed Sx labor/SROM Keep next APV Elieser Garcia CNM 07/26/2017 17:33 * Michelle Morrison, RN - 07/26/2017 1712 EDT Pt. Arrived in L+D at 1645 for evaluation of discomfort. Admitted to room 5 , Oriented sushil room, changed into hospital gown, and EFM applied, FHR baseline 145 reactive, mod. Variability without decels, reassuring tracing, without decels. CAT1 PO fluids provided and encouraged. 17:00 Mckenna Garcia CNM in for evaluation and cervical exam. 17:17 /--1 Offered Pt. A shower, and she feels better, discharged home with instructions and in agreement withthis plan. Michelle Morrison RN documented in this encounter Plan of Treatment Scheduled Referrals Name Type Priority Associated Diagnoses Order Schedule PROVIDER FOLLOW-UP INSTRUCTIONS Outpatient Referral Routine Ordered: 07/26/2017 PROVIDER FOLLOW-UP INSTRUCTIONS Outpatient Referral Routine Ordered: 07/26/2017 documented as of this encounter Visit Diagnoses Diagnosis Supervision of normal first , antepartum- Primary Supervision of normal first , antepartum documented in this encounter Orders Diet Count Last Ordered Date First Orde red Date DISCHARGE DIET 2 07/26/2017 Nursing Count Last Ordered Date First Orde red Date ACTIVITY INSTRUCTIONS 1 07/26/2017 BATHING INSTRUCTIONS 1 07/26/2017 Admission Count Last Ordered Date First Orde red Date STATUS: OUTPATIENT OBSERVATION SERVICES 1 0 07/26/2017 Transfer Count Last Ordered Date First Orde red Date NOTIFY PPS OF DISCHARGE COMPLETE 1 07/27/19 18 Discharge Count Last Ordered Date First Orde red Date DISCHARGE PATIENT 1 07/26/2017 Legal Count Last Ordered Date First Orde red Date MISCELLANEOUS DISCHARGE INSTRUCTIONS 1 06/30 documented in this encounter Care Teams Water Pumping Station Engineer Relationship Specialty Start Date End Date Marva Hitchcock MD [address] [place] [phone] PCP - General 06/03/17 06/28/20 documented as of this encounter
--- OUTSIDE RECORDS SUMMARY | 2023-12-04 20:18 | XMS_ITS | Encounter Summary ---
Author Organization [facility] Address [address] [place] [address] Care Team Providers Care Ankle Patch Molder Name Role Phone Thea Santamaria MD Primary Care Provider [phone] Reason for Visit * Reason Onset Date Comments Appointment Related 12/24/2016 Encounter Details Date Type Department Care Team (Late st Contact Info) Description 12/24/2016 Telephone [facility] OBGYN Services - [facility] [place] [address] [place] [address] Kaia Cornejo RN [address] [place] [address] Appointment Related Social History Tobacco Use Types [...] encounter Miscellaneous Notes * Telephone Encounter - Kaia Cornejo RN - 12/24/2016 1233 EDT ATR pt to schedule IVAP Message left on VM identified as hers that she should call to make an appt for a first visit, documented in this encounter Plan of Treatment Not on file documented as of this encounter Visit Diagnoses Not on filedocumented in this encounter Care Teams Ankle Patch Molder Relationship Specialty Start Date End Date Thea Santamaria MD [address] [place] [phone] PCP - General 11/25/16 05/25/17 documented as of this encounter
--- OUTSIDE RECORDS SUMMARY | 2023-12-04 20:18 | XMS_ITS | Encounter Summary ---
Author Organization [facility] Address [address] [place] [address] Care Team Providers Care Assembler Erector Name Role Phone Marva Hitchcock MD Primary Care Provider [phone] Reason for Visit * Reason Comments Routine Visit Encounter Details Date Type Department Care Team (Late st Contact Info) Description 08/02/2017 17:00 EDT Routine [facility] OBGYN Services - [address] [phone] Shannan Rodríguez NP [address] [place] [phone] GA: 39w4d Discharge Disposition: Auto Discharge Social History Tobacco [...] Sign Reading Time Taken Comments Blood Pressure 126/80 08/02/2017 1714 EDT Pulse - - Temperature - - Respiratory Rate - - Oxygen Saturation - - Inhaled Oxygen Concentration - - Weight 119.7 kg (263 lb 12.8 oz) 08/02/2017 1714 EDT Height - - Body Mass Index 48.24 07/29/2017 0929 EDT documented in this encounter Functional Status [...] as of this encounter Discharge Diagnoses Diagnosis Z34.03 Encounter for supervision of normal first , third trimester-Z34.03[ICD-10-CM] N90.89 Other specified noninflammatory disorders of vulva and perineum-N90.89[ICD-10-CM] documented in this encounter Discharge Disposition Disposition Code Departure Means Destination Auto Discharge documented in this encounter Progress Notes * Shannan Rodríguez CNM - 08/02/2017 1700 EDT S: Tiny Cline is here today for a visit at 39w4d. Knows has HSV lesion on labia - started Wednesday - went to urgent care on Wednesday - they said it didnot look like anything. Now itches and hobbs Denies bleeding, loss of fluid or painful contractions. + FM. O: Vitals: BP: 126/80 Weight : (!) 119.7 kg (263 lb 12.8 oz) Heart Rate: 145 Movement: Present Presentation: Vertex Vulva - L labia @ 5 0clock - healing ulcer A: 21 y.o. at 39w4d IUP O pos/GBS neg Hx HSV/on Valtrex 500 bid BMI = 37 Hypothyroid/ S/P ablation for Graves P: Suspect HSV lesion on L labia - culture done. On Valtrex 500 bid - that is recommendation with outbreaks Understands that if goes into labor before healed - will need C/section. Follow up in 3 days on documented in this encounter Plan of Treatment Not on file documented as of this encounter Procedures Procedure Name Priority Date/Time Associated Diagnosis Comments MUCOCUTANEOUS VIRUS DETECTION Routine 08/02/2017 19:47 EDT Encounter for supervision of normal first in third trimester Vulvar lesion documented in this encounter Results * MUCOCUTANEOUS VIRUS DETECTION (08/02/2017 19:47 EDT) Result No Herpes simplex virus Type 1 or Type 2 detected by PCR. 08/03/2017 12:02 EDT [facility] Result (Note) Analyte Specific Reagent. This test was developed and its performance characteristics determined by Laboratory Medicine and Pathology, [facility]. This test has not been cleared or approved by the U.S. Food and Drug Administration. FDA does not require this test to go through premarket FDA review. This test is used for clinical purposes. It should not be regarded as investigational or for research. This laboratory is certified under the Clinical Laboratory Improvement Amendments of 1988 (CLIA) as qualified to perform high complexity clinical laboratory testing. 08/03/2017 12:02 EDT [facility] GENITAL STRUCTURE / Unknown 08/02/2017 19:47 EDT 08/02/2017 20:46 EDT Shannan Rodríguez NP [facility] MICROBIOLOGY - [facility] ORDERABLES [facility] [address] [place] [address] documented in this encounter Visit Diagnoses Diagnosis Encounter for supervision of normal first in third trimester- Primary Supervision of normal first Vulvar lesion Other specified noninflammatory disorder of vulva and perineum documented in this encounter Care Teams Assembler Erector Relationship Specialty Start Date End Date Marva Hitchcock MD [address] [place] [phone] PCP - General 06/03/17 06/28/20 documented as of this encounter
--- OUTSIDE RECORDS SUMMARY | 2023-12-04 20:18 | XMS_ITS | Encounter Summary ---
Author Organization [facility] Address [address] [place] [address] Care Team Providers Care Community Nutrition Educator Name Role Phone Thea Santamaria MD Primary Care Provider Reason for Referral * Laboratory Services (Routine) - Closed Specialty Diagnoses / Procedures Referred By Eugene asencio Referred To Contact Diagnoses Status post radioactive iodine thyroid ablation Hypothyroidism, postablative Graves' disease Procedures T4 FREE Aimee Lopez RN [address] [place] [address] Referral ID Status Reason Start Date Expiration Date Visits Re quested Visits Authorized [id number] Closed 02/18/2017 1 1 * Laboratory Services (Routine) - Closed Specialty Diagnoses / Procedures Referred By Eugene asencio Referred To Contact Diagnoses Status post radioactive iodine thyroid ablation Hypothyroidism, postablative Graves' disease Procedures TSH Aimee Lopez RN [address] [place] [address] Referral ID Status Reason Start Date Expiration Date Visits Re quested Visits Authorized [id number] Closed 02/18/2017 1 1 Reason for Visit * Reason Onset Date Comments Results 01/19/2017 Returning Call 01/20/2017 Returning call t brent Yu Encounter Details Date Type Department Care Team (Late st Contact Info) Description 01/19/2017 Telephone [facility] Endocrinology - [address] [address] Carlos Nuñez, DO [address] [employer] [place] [phone] Results; Returning Call (Returning call to [facility]) Social History Tobacco Use Types Packs/Day Years [...] Telephone Encounter - Aimee Lopez RN - 01/20/2017 0937 EST Spoke with Tiny. Relayed Dr. Watson message. Patient verbalized understanding. No barriers to learning noted. She has labs drawn at [facility]. Reqisitions sent. * Telephone Encounter - Veronica Hooker - 01/20/2017 0924 EST Patient returning call to [facility]. Please call * Telephone Encounter - Aimee Lopez RN - 01/20/2017 0852 EST Attempted to call Tiny to relay message from Dr. Nuñez of 01/19. Left message on personal voicemail to call back. * Telephone Encounter - Carlos Nuñez DO - 01/19/2017 1814 EST Please contact patient via phone. I reviewed her most recent thyroid function test obtained at [facility] on January 19, 2017. Her TSH was at goal at 1.84 with a free T4 normal at 1.57. She should continue on her current dose of levothyroxine. Repeat blood work in 4 weeks documented in this encounter Plan of Treatment Not on file documented as of this encounter Results * T4 FREE (02/18/2017 10:08 EST) Free T4, External 1.65 0.78 - 2.19 ng/dL [facility] Blood specimen (specimen) 02/18/2017 10:08 EST Carloscarlin Nuñez DO CHEMISTRY & BL OOD GAS ORDERABLES Performing Organization Address City/[facility] Co de Phone Number [facility] * TSH (02/18/2017 10:08 EST) TSH, External 2.54 0.47 - 4.68 m1U/L [facility] Blood specimen (specimen) 02/18/2017 10:08 EST Carlos Nuñez DO CHEMISTRY & BL OOD GAS ORDERABLES Performing Organization Address City/[facility]/ZIP Co de Phone Number [facility] documented in this encounter Visit Diagnoses Diagnosis Status post radioactive iodine thyroid ablation- Primary Other postprocedural status Hypothyroidism, postablative Other postablative hypothyroidism Graves' disease Toxic diffuse goiter without mention of thyrotoxic crisis or storm documented in this encounter Care Teams Community Nutrition Educator Relationship Specialty Start Date End Date Thea Santamaria MD [address] [place] [phone] PCP - General 11/25/16 05/25/17 documented as of this encounter
--- OUTSIDE RECORDS SUMMARY | 2023-12-04 20:18 | XMS_ITS | Encounter Summary ---
Author Organization [facility] Address [address] [place] [address] Care Team Providers Care Dredge Boat Engineer Name Role Phone Marva Hitchcock MD Primary Care Provider [phone] Reason for Visit * Reason Comments Routine Visit Encounter Details Date Type Department Care Team (Late st Contact Info) Description 06/25/2017 10:15 EDT Routine [facility] OBGYN Services - [address] [id number] Maral Deal, REHABILITATION CASE COORDINATOR [address] [place] [phone] [place]: 34w1d Social History Tobacco Use Types Packs/Day Years [...] Sign Reading Time Taken Comments Blood Pressure 110/74 06/25/2017 1001 EDT Pulse - - Temperature - - Respiratory Rate - - Oxygen Saturation - - Inhaled Oxygen Concentration - - Weight 108.8 kg (239 lb 12.8 oz) 06/25/2017 1001 EDT Height 157.5 cm (5' 2.01) 06/25/2017 1001 EDT Body Mass Index 43.85 06/25/2017 1001 EDT documented in this encounter Functional Status [...] No 12/24/2016 documented as of this encounter Progress Notes * Maral Deal CNM - 06/25/2017 1015 EDT S: Tiny Cline is here today for a visit at 34w1d. Feeling done with . Lowback pain is bothersome, improved with warm shower and stretching, but feels like a constant ache, never went to chiropractor. Heartburn is better with omeprazole, nothing else was helpful. Has been watching some videos at home to get ready for . Feeling open to plans for labor, would like to try to go as long as possible without epidural, but not opposed to one if it is a long labor. Has been trying to get out for walks. Recent call from her candle cutter, told her TSH was normal and tocontinue 200mcg, will plan to decrease to 175mcg immediately . Has a car seat and starting to get ready at home for baby. Feels johnson, but manageable. Denies bleeding, loss of fluid or painful contractions. + FM. O: Vitals: BP: 110/74 Height: 157.5 cm (62.01) Weight : (!) 108.8 kg (239 lb 12.8 oz) BMI: 43.94 Heart Rate: 130 Movement: Present Presentation: Vertex A: 21 y.o. 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 GERD Asthma Hypothyroid- managed by candle cutter on 200mcg synthroid Depression-stable no meds P: packet reviewed GBS at next visit Encouraged exercise 5x/wk 3rd trimester warning signs reviewed and when to call Will need to increase valtrex to 500mg BID after next visit will be exactly 36wks -please review atnext APV Follow up in 2 wks documented in this encounter Plan of Treatment Not on file documented as of this encounter Visit Diagnoses Diagnosis Encounter for supervision of normal first in third trimester- Primary Supervision of normal first documented in this encounter Care Teams Dredge Boat Engineer Relationship Specialty Start Date End Date Marva Hitchcock MD [address] [place] [phone] PCP - General 06/03/17 06/28/20 documented as of this encounter
--- OUTSIDE RECORDS SUMMARY | 2023-12-04 20:18 | XMS_ITS | Encounter Summary ---
Author Organization [facility] Address [address] [place] [address] Care Team Providers Care Separations Scientist Name Role Phone Marva Hitchcock MD Primary Care Provider [phone] Reason for Visit * Reason Onset Date Comments Herpes 08/02/2017 Encounter Details Date Type Department Care Team (Late st Contact Info) Description 08/02/2017 Telephone [facility] OBGYN Services - [facility] [address] [place], [place] [id number] Adriana Erickson RN Herpes Social History Tobacco Use Types Packs/Day Years [...] Telephone Encounter - Adriana Erickson RN - 08/02/2017 1100 EDT TC from Tiny Madison's mother. States that Tiny currently has an open lesion on lower L labia which is painful, hobbs and itches. Reports that Tiny is currently taking valtrex 500 mg BID since last Wednesday. Discussed with CNM shell mold bonder and Gricelda advised that we will need to culture lesion. Given appt today @ 1700. documented in this encounter Plan of Treatment Not on file documented as of this encounter Visit Diagnoses Not on filedocumented in this encounter Care Teams Separations Scientist Relationship Specialty Start Date End Date Marva Hitchcock MD [address] [place] [phone] PCP - General 06/03/17 06/28/20 documented as of this encounter
--- OUTSIDE RECORDS SUMMARY | 2023-12-04 20:18 | XMS_ITS | Encounter Summary ---
Author Organization [facility] Address [address] [place] [address] Care Team Providers Care Linux Solaris Administrator Name Role Phone Marva Hitchcock MD Primary Care Provider [phone] Reason for Visit * Reason Comments Routine Visit Encounter Details Date Type Department Care Team (Late st Contact Info) Description 07/22/2017 11:00 EDT Routine [facility] OBGYN Services - [address] [address] Sridevi Perez NP [address] [place] [phone] [place]: 38w0d Social History Tobacco Use Types Packs/Day Years [...] Sign Reading Time Taken Comments Blood Pressure 120/84 07/22/2017 1059 EDT Pulse - - Temperature - - Respiratory Rate - - Oxygen Saturation - - Inhaled Oxygen Concentration - - Weight 114.8 kg (253 lb) 07/22/2017 1059 EDT Height 157.5 cm (5' 2.01) 07/22/2017 1059 EDT Body Mass Index 46.26 07/22/2017 1059 EDT documented in this encounter Functional Status [...] as of this encounter Progress Notes * Sridevi Perez CNM - 07/22/2017 1100 EDT S: Tiny Cline is here today for a visit at 38w0d. Feeling well, no complaints. Vulvar lesion resolved. Denies any further HSV symptoms. Usually has a few contractions in the evening and morning, nothing regular or very painful. Denies TRIVEDI, visual changes, epigastric pain, bleeding, loss of fluid. +FM. Pedi will be in [facility]. Wants epidural. Getting ready at home. Has decided on POPs for contraception. O: Vitals: BP: 120/84 Height: 157.5 cm (62.01) Weight : (!) 114.8 kg (253 lb) BMI: 46.359 Heart Rate: 140 Movement: Present Presentation: Vertex 36w EFW 43%tile, cephalic A: 21 y.o. at 38w0d IUP BMI 37 Hx HSV - ?pustule 1 week ago, neg culture, completed treatment dose Valtrex S/p ablation, followed by endo Asthma Depression, no meds Rh pos / GBS neg P: Valtrex 500mg PO daily per plan with Yogesh LACY last week, call with prodromal sx or lesions to increase to treatment dose again Discussed pedi hospitalist Discussed all contraceptive options Reviewed warning signs/when to call Follow up in 1 wk, sooner PRN documented in this encounter Plan of Treatment Not on file documented as of this encounter Visit Diagnoses Diagnosis Encounter for supervision of normal first in third trimester- Primary Supervision of normal first documented in this encounter Care Teams Linux Solaris Administrator Relationship Specialty Start Date End Date Marva Hitchcock MD [address] [place] [phone] PCP - General 06/03/17 06/28/20 documented as of this encounter
--- OUTSIDE RECORDS SUMMARY | 2023-12-04 20:18 | XMS_ITS | Encounter Summary ---
Author Organization [facility] Address [address] [place] [address] Care Team Providers Care Aeroplane Pilot Name Role Phone Thea Santamaria MD Primary Care Provider [phone] Reason for Visit * Reason Onset Date Comments Results 02/19/2017 Encounter Details Date Type Department Care Team (Late st Contact Info) Description 02/19/2017 Telephone [facility] Endocrinology - [facility] [address] [place] [address] Carlos Nuñez, 60 [facility] [address] [place] [phone] Results Social History Tobacco Use [...] Telephone Encounter - Evan Perez RN - 02/19/2017 1256 EST Left detailed message for patient and relayed Dr. Nuñez's message below: Please contact patient via phone. I [facility] Her TSH is 2.5 with a free T4 of 1.6. these are still within the desired range for . Please have patient repeat lab work in 4 weeks. * Telephone Encounter - Carlos Nuñez DO - 02/19/2017 1250 EST Please contact patient via phone. I have reviewed [facility] Her TSH is 2.5 with a free T4 of 1.6. His are still within the desired range for . Please have patient repeat lab work in 4 weeks. documented in this encounter Plan of Treatment Not on file documented as of this encounter Visit Diagnoses Not on filedocumented in this encounter Care Teams Aeroplane Pilot Relationship Specialty Start Date End Date Thea Santamaria MD [address] [place] [phone] PCP - General 11/25/16 05/25/17 documented as of this encounter
--- OUTSIDE RECORDS SUMMARY | 2023-12-04 20:18 | XMS_ITS | Encounter Summary ---
Author Organization [facility] Address [address] [place] [address] Care Team Providers Care Department Specialist Name Role Phone Thea Santamaria MD Primary Care Provider [phone] Unknown, Provider Primary Care Provider [phone] Encounter Details Date Type Department Care Team (Late st Contact Info) Description 04/15/2017 Orders Only [facility] OBGYN Services - Main [place] [address] [place], [place] [phone] Neli Connelly RN Need for Tdap vaccination (Primary Dx); Encounter for supervision of normal first in second trimester Social History Tobacco Use Types [...] Procedure Name Priority Date/Time Associated Diagnosis Comments GLUCOSE-1HR GESTATIONAL SCREEN Routine 05/05/2017 TSH Routine 03/18/2017 documented in this encounter Results * GLUCOSE-1HR GESTATIONAL SCREEN (05/05/2017) Glucose-1hr Gest Scn 118 POINT OF CARE [facility] Blood specimen (specimen) Historical Provider PACKAGES & DNA LA OBE ORDERABLES POINT OF CARE [facility] * TSH (03/18/2017) TSH, External 1.55 POINT OF CARE [facility] Blood specimen (specimen) Historical Provider CHEMISTRY & BLOOD GAS ORDERABLES POINT OF CARE [facility] documented in this encounter Visit Diagnoses Diagnosis Need for Tdap vaccination- Primary Need for prophylactic vaccination with combined uggubsaoaw-gybbdsq-srwhmagpy (DTP) vaccine Encounter for supervision of normal first in second trimester Supervision of normal first documented in this encounter Orders Immunization/Injection Count Last Ordered Date First Ordered Date TDAP VACCINE =>7YO IM 1 05/13/2017 documented in this encounter Care Teams Department Specialist Relationship Specialty Start Date End Date Thea Santamaria MD [address] [place] [phone] PCP - General 11/25/16 05/25/17 Unknown, ProviderMD PCP - General 05/26/17 06/02/17 documented as of this encounter
--- OUTSIDE RECORDS SUMMARY | 2023-12-04 20:18 | XMS_ITS | Encounter Summary ---
Author Organization [facility] Address [address] [place] [address] Care Team Providers Care Interior Design Teacher Name Role Phone Thea Santamaria MD Primary Care Provider [phone] Encounter Details Date Type Department Care Team (Latest Contact Info) Description 12/24/2016 14:40 EDT Procedure visit [facility] Endocrinology - [facility] [address] [place] [address] Carlos Nuñez, DO [address] [facility] [address] [place] [address] Phlebotomy, [facility] Endo Hypothyroidism, postablative (Primary Dx) Discharge Disposition: Auto Discharge Social [...] E89.0 POSTPROCEDURAL HYPOTHYROIDISM[ICD-10-CM] documented in this encounter Discharge Disposition Disposition Code Departure Means Destination Auto Discharge documented in this encounter Progress Notes * Alie Doan - 12/24/2016 1440 EDT Venipuncture preformed for T4 free, TSH Per orders of Keagan Nuñez Diagnosis of E89.0 244.1 I was supervised by Lynn Milian who was present and immediately available in the office suite. Alie Doan 12/24/2016 14:43 documented in this encounter Plan of Treatment Not on file documented as of this encounter Procedures Procedure Name Priority Date/Time Associated Diagnosis Comments TSH Routine 12/24/2016 14:37 EDT Hypothyroidism, postablative T4 FREE Routine 12/24/2016 14:37 EDT Hypothyroidism, postablative documented in this encounter Results * T4 FREE (12/24/2016 14:37 EDT) T4, Free 0.9 0.8 - 2.2 ng/dl 12/24/2016 17:45 EDT [facility] Comment:New methodology in u se 08/26/16. Blood specimen (specimen) BLOOD SPECIMEN / Unknown 12/24/2016 14:37 EDT 12/24/2016 16:14 EDT Carlos Nuñez DO CHEMISTRY & BL OOD GAS ORDERABLES [facility] [address] [place] [address] * (ABNORMAL) TSH (12/24/2016 14:37 EDT) TSH 50.90(H) 0.47 - 4.68 uIU/ml 12/24/2016 18:00 EDT [facility] Comment:New methodology in u se 08/26/16. Blood specimen (specimen) BLOOD SPECIMEN / Unknown 12/24/2016 14:37 EDT 12/24/2016 16:14 EDT Carlos Nuñez DO CHEMISTRY & BL OOD GAS ORDERABLES [facility] [address] [place] [address] documented in this encounter Visit Diagnoses Diagnosis Hypothyroidism, postablative- Primary Other postablative hypothyroidism documented in this encounter Care Teams Interior Design Teacher Relationship Specialty Start Date End Date Thea Santamaria MD [address] [place] [phone] PCP - General 11/25/16 05/25/17 documented as of this encounter
--- OUTSIDE RECORDS SUMMARY | 2023-12-04 20:18 | XMS_ITS | Encounter Summary ---
Author Organization [facility] Address [address] [place] [address] Care Team Providers Care Instruction Assistant Principal Name Role Phone Thea Santamaria MD Primary Care Provider [phone] Encounter Details Date Type Department Care Team (Late st Contact Info) Description 01/22/2017 Phlebotomy Only [facility] [address] [place] [address] Warehouse Representative, Outpatient Encounter for supervision of normal first in first trimester; Status post radioactive iodine thyroid ablation; Hypothyroidism, postablative; Graves' disease Social History Tobacco [...] Priority Date/Time Associated Diagnosis Comments TSH Routine 02/18/2017 10:08 EST Status post radioactive iodine thyroid ablation Hypothyroidism, postablative Graves' disease T4 FREE Routine 02/18/2017 10:08 EST Status post radioactive iodine thyroid ablation Hypothyroidism, postablative Graves' disease CYSTIC FIBROSIS MUTATION ANALYSIS, 106 PANEL Routine 01/22/2017 16:10 EST Encounter for supervision of normal first in first trimester documented in this encounter Results * T4 FREE (02/18/2017 10:08 EST) Free T4, External 1.65 0.78 - 2.19 ng/dL [facility] Blood specimen (specimen) 02/18/2017 10:08 EST Carlos Nuñez DO CHEMISTRY & BL OOD GAS ORDERABLES Performing Organization Address [facility] Co de Phone Number [facility] * TSH (02/18/2017 10:08 EST) TSH, External 2.54 0.47 - 4.68 m1U/L [facility] Blood specimen (specimen) 02/18/2017 10:08 EST Carlos Nuñez DO CHEMISTRY & BL OOD GAS ORDERABLES Performing Organization Address [facility] Co de Phone Number [facility] * CYSTIC FIBROSIS MUTATION ANALYSIS, 106 PANEL (01/22/2017 16:10 EST) Result Summary NEGATIVE 01/30/2017 12:11 EST [facility] Result (Note) 01/30/2017 12:11 EST [facility] Comment:None of the listed m utations were detected. Interpretation (Note) 01/30/2017 12:11 EST [facility] Comment: Having excluded the presence of the listed mutations, the risk that this individual is a carrier of another cystic fibrosis (CF) mutation is dependent upon the ethnic background of the patient. . Ethnicity ? Risk ? (Detection rate, Carrier Freq) Northern ? (91%, 03/25) Mixed ?134 ? (82%, 03/25) Southern ? 115 ? (79%, 03/25) Eastern ?127 ? (77%, 03/30) Ashkenazi Mu-Ism ? (97%, 03/25) Sierra Leonean Omani ? (91%, 03/25) ?338 ? (81%, ) Prydeinig ? 251 ? (82%, ) Prydeinig* ? 194 ? (54%, ) *does not apply to individuals of Romanian ancestry . These calculations are based on the mutation detection rates and population carrier frequencies noted in the chart and assume no family history of CF. Because there is little information available about the carrier frequency and mutation detection rates for individuals of other ethnicities, we are unable to provide a revised risk assessment for ethnicities other than those listed. . A genetic consultation may be of benefit. . ADDITIONAL INFORMATION An online research opportunity called [employer] ([email or web address]), a project of [employer], is available for the recipient of this genetic test. This patient registry collects de-identified genetic and health information to advance the knowledge of genetic variants. [facility] is a collaborator of [employer]. This may not be applicable for all tests. . Test results should be interpreted in the context of clinical findings, family history, and other laboratory data. Misinterpretation of results may occur if the information provided is inaccurate or incomplete. . Rare polymorphisms exist that could lead to false-negative or false-positive results. If results obtained do not match the clinical findings, additional testing should be considered. . Bone Marrow transplants from allogenic donors will interfere with testing. Call [facility] for instructions for testing patients who have received a bone marrow transplant. . Multiple in-silico evaluation tools may have been used to assist in the interpretation of these results. Of note, the sensitivity and specificity of these tools for the determination of pathogenicity is currently unvalidated. . This test was developed and its performance characteristics determined by [facility] in a manner consistent with CLIA requirements. This test has not been cleared or approved by the U.S. Food and Drug Administration. Specimen WB Whole Blood 01/30/2017 12:11 [facility] Method (Note) 01/30/2017 12:11 [facility] Comment: The multiplex PCR based assay utilizing the [employer] Array platform was used to detect 106 mutations, including the 23 mutations specified in the [employer] ([employer]) standards for population based carrier screening. The mutations are as follows: [id number], [id number], G542X, G85E, R117H, E1971N (TGG>TGA), 621+1G>T, 711+1G>T, V4196D (C>A), Y2707R (C>G), R334W, R347P, A455E, 1717-1G>A, R553X, R560T, G551D, 1898+1G>A, 2184delA, 2789+5G>A, 3120+1G>A, Y3749S, 3659delC, 3849+10kbC>T, the deletion of exons 2-3, 296+2T>A, E60X, R75X, 394_395delTT, 405+1G>A, 406-1G>A, E92X, 444delA, 457TAT>G, R117C, Y122X, 574delA, 663delT, G178R, 711+5G>A, 712-1G>T, H199Y, P205S, L206W, 232hgd85, 935delA, 936delTA, lawlpL865, 1078delT, G330X, T338I, R347H, R352Q, Q359K, T360K, 1288insTA, S466X (C>A), S466X (C>G), G480C, Q493X, 1677delTA, C524X, S549N, S549R (T>G), Q552X, A559T, 1811+1.6kbA>G, 1812-1G>A, 1898+1G>T, 1898+1G>C, 1898+5G>T, P574H, 1386jjh76, 2043delG, 5296tvz2>A, 7737nif76eny6, 2108delA, 2143delT, 2183_2184delAAinsG, 2184insA, R709X, K710X, 2307insA, R764X, Q890X, 2869insG, 3171delC, 8733qdo1, U5265U, U1108A (TGG>TAG), B6158W (C>G), I9628W (C>A), J9868S, M8655Y, K0079O, M1050H, 8681zkt5, D7018O, O8692X (TGG>TAG), 3791delC, R4578U, 3876delA, R1790H, M1929R, 3905insT, and 4016dupT mutations are detected. Poly T determination and confirmatory testing of homozygous results are performed as reflex tests when appropriate. Released By Milton Mello M.D., Ph.D. 01/30/2017 12:11 EST [facility] Comment: Performed or Referred by: [facility], [facility] [place] [address], Lab Dir: Shiv Zelaya II, M.D., Ph.D. Blood specimen (specimen) BLOOD SPECIMEN / Unknown 01/22/2017 16:10 EST 01/22/2017 16:37 EST Kwasi Frausto APRN [facility] CHEMISTRY & BLOOD GAS ORDERABLES [facility] [address] [place] [address] documented in this encounter Visit Diagnoses Diagnosis Encounter for supervision of normal first in first trimester Supervision of normal first Status post radioactive iodine thyroid ablation Other postprocedural status Hypothyroidism, postablative Other postablative hypothyroidism Graves' disease Toxic diffuse goiter without mention of thyrotoxic crisis or storm documented in this encounter Care Teams Instruction Assistant Principal Relationship Specialty Start Date End Date Thea Santamaria MD [address] [place] [phone] PCP - General 11/25/16 05/25/17 documented as of this encounter
--- OUTSIDE RECORDS SUMMARY | 2023-12-04 20:18 | XMS_ITS | Encounter Summary ---
Author Organization [facility] Address [address] [place] [address] Care Team Providers Care Senior Foreman Name Role Phone Marva Hitchcock MD Primary Care Provider [phone] Reason for Visit * Reason Comments Routine Visit Encounter Details Date Type Department Care Team (Late st Contact Info) Description 08/05/2017 10:30 EDT Routine [facility] OBGYN Services - [address] [id number] Ximena Gustafson NP [address], [address] [place] [phone] GA: 40w0d Social History Tobacco Use Types Packs/Day Years [...] Sign Reading Time Taken Comments Blood Pressure 118/86 08/05/2017 1056 EDT Pulse - - Temperature - - Respiratory Rate - - Oxygen Saturation - - Inhaled Oxygen Concentration - - Weight 117.9 kg (260 lb) 08/05/2017 1056 EDT Height - - Body Mass Index 47.54 07/29/2017 0929 EDT documented in this encounter [...] as of this encounter Progress Notes * Ximena Gustafson CNM - 08/05/2017 1030 EDT S: Tiny Cline is here today for a visit at 40w0d. Tiny is here with her partner, wants to be checked. States that the sore is mostly gone at this point. Hoping to wait until weekendfor labor. Denies bleeding, loss of fluid or painful contractions. + FM. O: Vitals: BP: 118/86 Weight : (!) 117.9 kg (260 lb) Fundal Height (cm): 40 cm Heart Rate: 155 Movement: Present Presentation: Vertex Dilation: 3 Effacement (%): 80 Station: 0 A: 21 y.o. at 40w0d IUP HSV lesion - on valtrex Hypothyroid Depression Asthma P: Discussed postdates management. Testing ordered for 41 weeks. Follow up in 1 wks documented in this encounter Plan of Treatment Not on file documented as of this encounter Visit Diagnoses Diagnosis Encounter for supervision of other normal in third trimester- Primary documented in this encounter Care Teams Senior Foreman Relationship Specialty Start Date End Date Marva Hitchcock MD [address] [place] [phone] PCP - General 06/03/17 06/28/20 documented as of this encounter
--- OUTSIDE RECORDS SUMMARY | 2023-12-04 20:18 | XMS_ITS | Encounter Summary ---
Author Organization [facility] Address [address] [place] [address] Care Team Providers Care Pyrotechnic Assembler Name Role Phone Thea Santamraia MD Primary Care Provider [phone] Reason for Visit * Reason Onset Date Comments Pre-visit Orders 01/06/2017 Encounter Details Date Type Department Care Team (Late st Contact Info) Description 01/06/2017 Orders Only [facility] OBGYN Services - [address] [id number] Sridevi Perez NP [facility] [address] [facility], [address] [place] [address] Encounter for supervision of normal first in first trimester (Primary Dx); Need for prophylactic vaccination and inoculation against influenza Social History Tobacco Use Types Packs/Day Years [...] as of this encounter Progress Notes * Verenice Ivy - 01/06/2017 1401 EST episode created and dating documentation updated per LMP Flu vaccine, UAs, GC, profile with varicella, HIV, and bacterial culture pended documented in this encounter Plan of Treatment Not on file documented as of this encounter Results * CHLAMYDIA/N. GONORRHOEAE AMPLIFIED RNA (01/22/2017 15:58 EST) Chlamydia Result Negative 01/25/2017 13:31 EST [facility] GC Result Negative 01/25/2017 13:31 EST [facility] Specimen of unknown material (specimen) ENDOCERVICAL STRUCTURE / Unknown 01/22/2017 15:58 EST 01/22/2017 16:55 EST Sridevi NAPIER MICROBIOL OGY - GENERAL ORDERABLES Performing Organization Address City/[facility] Co de Phone Number [facility] [address] [place] [address] * BACTERIAL CULTURE, URINE (01/08/2017 14:38 EST) Result Less than 10,000 CFU/ml Usual urogenital santi. 01/09/2017 10:17 EST [facility] Urine specimen (specimen) URINE / Unknown 01/08/2017 14:38 EST 01/08/2017 16:15 EST Sridevi Perez NP [facility] MICROBIOL OGY - GENERAL ORDERABLES Performing Organization Address City/[facility]/ZIP Co de Phone Number [facility] [address] [place] [address] documented in this encounter Visit Diagnoses Diagnosis Encounter for supervision of normal first in first trimester- Primary Supervision of normal first Need for prophylactic vaccination and inoculation against influenza documented in this encounter Orders Immunization/Injection Count Last Ordered Date First Ordered Date INFLUENZA VACCINE QUAD PRESE RVATIVE FREE 0.5 ML IM 1 01/08/2017 documented in this encounter Care Teams Pyrotechnic Assembler Relationship Specialty Start Date End Date Thea Santamaria MD [address] [place] [phone] PCP - General 11/25/16 05/25/17 documented as of this encounter
--- OUTSIDE RECORDS SUMMARY | 2023-12-04 20:18 | XMS_ITS | Encounter Summary ---
Author Organization [facility] Address [address] [place] [address] Care Team Providers Care Commanding Officer Garage Name Role Phone Thea Santamaria MD Primary Care Provider [phone] Encounter Details Date Type Department Care Team (Late st Contact Info) Description 02/18/2017 Documentation Visit [facility] OBGYN Services - [facility] [address] [place], [place] [phone] Neli Connelly, RN Social History Tobacco Use Types Packs/Day [...] as of this encounter Progress Notes * Neli Connelly RN - 02/18/2017 1522 EST lab results received from [facility] and attached to chart for 02/19/17 APV with Naomi Garcia CNM. documented in this encounter Plan of Treatment Not on file documented as of this encounter Procedures Procedure Name Priority Date/Time Associated Diagnosis Comments GLUCOSE-1HR GESTATIONAL SCREEN Routine 01/19/2017 SYPHILIS SEROLOGY Routine 01/19/2017 RUBELLA IGG ANTIBODY Routine 01/19/2017 HEPATITIS B SURFACE ANTIGEN Routine 01/19/2017 COMPLETE BLOOD COUNT Routine 01/19/2017 VARICELLA IGG ANTIBODY Routine 01/19/2017 HIV 1/2 ANTIGEN AND ANTIBODY, 4TH GENERATION Routine 01/19/2017 documented in this encounter Results * VARICELLA IGG ANTIBODY (01/19/2017) Varicella IGG Ab, External Positive [facility] Blood specimen (specimen) Historical Provider IMMUNOLOGY AND SE ROLOGY ORDERABLES Performing Organization Address [facility] Co de Phone Number [facility] * HIV 1/2 ANTIGEN AND ANTIBODY, 4TH GENERATION (01/19/2017) HIV 1/2 Antibody Negative [facility] Blood specimen (specimen) Historical Provider IMMUNOLOGY AND SE ROLOGY ORDERABLES [facility] * RUBELLA IGG ANTIBODY (01/19/2017) Rubella IgG Ab, External Protected [facility] Blood specimen (specimen) Historical Provider CHEMISTRY & BLOOD GAS ORDERABLES [facility] * HEPATITIS B SURFACE ANTIGEN (01/19/2017) Hepatitis B Surface Ag Negative [facility] Blood specimen (specimen) Historical Provider CHEMISTRY & BLOOD GAS ORDERABLES Performing Organization Address [facility] Co de Phone Number [facility] * GLUCOSE-1HR GESTATIONAL SCREEN (01/19/2017) Glucose-1hr Gest Scn 89 [facility] Blood specimen (specimen) Historical Provider PACKAGES & DNA MT OBE ORDERABLES Performing Organization Address [facility] Co de Phone Number [facility] * SYPHILIS SEROLOGY (01/19/2017) RPR for Donors Negative [facility] Blood specimen (specimen) Historical Provider IMMUNOLOGY AND SE ROLOGY ORDERABLES Performing Organization Address [facility] Co de Phone Number [facility] * HEMAGRAM (01/19/2017) PLT, External [address] [facility] HCT, External 40.2 [facility] Blood specimen (specimen) Historical Provider HEMATOLOGY & PF4 ORDERABLES Performing Organization Address [facility] Co de Phone Number [facility] documented in this encounter Visit Diagnoses Not on filedocumented in this encounter Care Teams Commanding Officer Garage Relationship Specialty Start Date End Date Thea Santamaria MD [address] [place] [phone] PCP - General 11/25/16 05/25/17 documented as of this encounter
--- OUTSIDE RECORDS SUMMARY | 2023-12-04 20:18 | XMS_ITS | Encounter Summary ---
Author Organization [facility] Address [address] [place] [address] Care Team Providers Care Soap Slabber Name Role Phone Marva Hitchcock MD Primary Care Provider [phone] Reason for Visit * Reason Onset Date Comments Results 08/04/2017 Encounter Details Date Type Department Care Team (Late st Contact Info) Description 08/04/2017 Telephone [facility] OBGYN Services - [facility] [address] [place], [place] [address] Adriana Erickson, RN Results Social History Tobacco Use Types [...] encounter Miscellaneous Notes * Telephone Encounter - Adraina Erickson RN - 08/04/2017 1534 EDT TC from Tiny's mother wishing to know results from latest culture. Advised that it was negative for HSV 1 & 2. documented in this encounter Plan of Treatment Not on file documented as of this encounter Visit Diagnoses Not on filedocumented in this encounter Care Teams Soap Slabber Relationship Specialty Start Date End Date Marva Hitchcock MD [address] [place] [phone] PCP - General 06/03/17 06/28/20 documented as of this encounter
--- OUTSIDE RECORDS SUMMARY | 2023-12-04 20:18 | XMS_ITS | Encounter Summary ---
Author Organization [facility] Address [address] [place] [address] Care Team Providers Care Balance Sheet Analyst Name Role Phone Marva Hitchcock MD Primary Care Provider Encounter Details Date Type Department Care Team (Late st Contact Info) Description 07/08/2017 Orders Only [facility] OBGYN Services - [facility] [address] [place], [place] [address] Grazyna Underwood MA Encounter for supervision of normal first in third trimester (Primary Dx) Social History [...] Diagnosis Comments GROUP B STREP PCR Routine 07/08/2017 12: 01 EDT Encounter for supervision of normal first in third trimester documented in this encounter Results * GROUP B STREP PCR (07/08/2017 12:01 EDT) GROUP B STREP PCR Negative 07/09/2017 14:26 EDT [facility] Specimen of unknown material (specimen) TOPOGRAPHY UNKNOWN / Unknown 07/08/2017 12:01 EDT 07/08/2017 12:29 EDT Sridevi Perez DYE JIG OPERATOR CNM MICROBIOL OGY - GENERAL ORDERABLES [facility] [address] [place] [address] documented in this encounter Visit Diagnoses Diagnosis Encounter for supervision of normal first in third trimester- Primary Supervision of normal first documented in this encounter Care Teams Balance Sheet Analyst Relationship Specialty Start Date End Date Marva Hitchcock MD [address] [place] [phone] PCP - General 06/03/17 06/28/20 documented as of this encounter
--- OUTSIDE RECORDS SUMMARY | 2023-12-04 20:18 | XMS_ITS | Encounter Summary ---
Author Organization [facility] Address [address] [place] [address] Care Team Providers Care Pipelines Laborer Name Role Phone Marva Hitchcock MD Primary Care Provider [phone] Encounter Details Date Type Department Care Team (Late st Contact Info) Description 06/10/2017 Results Only Imaging [facility] OBGYN Services - [address] [id number] Maral Deal, CASKET TRIMMER [address], [address] [place] [address] Social History Tobacco Use Types [...] Procedure Name Priority Date/Time Associated Diagnosis Comments USP FOLLOW-UP 06/10/2017 10:08 EDT documented in this encounter Results * USP FOLLOW-UP (06/10/2017 10:08 EDT) Anatomical Region Laterality Modality Other 06/10/2017 10:0 8 EDT 06/10/2017 10:26 EDT Narrative 06/10/2017 10:26 EDT Indication Size/dates mismatch. History ======= General History Height 157 cm Height (ft) ?5 ft Height (in) ?2 in Previous Outcomes ?1 Para ?? 0 Patel children born (T) ?0 Patel children born (P) ?0 Abortions (A) ??0 Patel living children (L) ??0 Number of fetuses: 1. Maternal Assessment Height 157 cm Height (ft) ?5 ft Height (in) ?2 in Physical Exam Initial weight 92 kg Initial weight (lb) ?203 lb Initial BMI ?37.13 kg/m? Dating ======= LMP on: ?10/29/2016 GA by LMP ??32 w + 0 d GEOVANI by LMP : ? 08/05/2017 Ultrasound examination on: 06/10/2017 GA by U/S based upon: ??AC, BPD, Femur, HC GA by U/S ??32 w + 0 d GEOVANI by U/S: ?08/05/2017 Assigned: ??Dating performed on 03/19/2017 Based on the LMP Assigned GA ?32 w + 0 d Assigned GEOVANI: ??08/05/2017 General Evaluation Cardiac activity: Present. FHR 146 bpm. movements: visualized. Presentation: cephalic. Placenta: posterior, right. Amniotic fluid: Amount of AF: normal. MVP 4.5 cm. CHRISTI 12.1 cm. Q1 3.3 cm, Q2 4.5 cm, Q3 1.9 cm, Q4 2.5 cm. Anatomy Cranium: ?? normal Lateral ventricles: ?normal Midline falx: ??normal Cranium: ?? normal shape and size 4-chamber view: ?normal Stomach: ?? normal Kidneys: ?? normal Bladder: ?? normal Gender: ?female Wants to know gender: ??yes Biometry Biometry BPD ?80.9 mm 56% 32w 3d Hadlock OFD ?102.7 mm ?81% 33w 2d Jose HC 292.7 mm ?38% 31w 3d [place] AC 285.4 mm ?66% 32w 4d Hadlock Femur ??61.3 mm 55% 31w 5d Jose Humerus ?52.7 mm 17% 30w 5d Jose EFW ?1,946 g 40% Hart Calculated by: Hadlock ([id number]-FL) EFW (lb) ?? 4 lb EFW (oz) ?? 5 oz Cephalic index 0.79 ?39% Nicolaides HC / AC ?1.03 FL / BPD ?? 0.76 FL / AC ?0.21 MVP ?4.5 cm CHRISTI ?12.1 cm FHR ?146 bpm Head / Face / Neck Assistant Professor Of English 5.2 mm Method ======== Transabdominal ultrasound examination, Voluson E10. View: Sufficient. Impression [id number] Follow-up obstetrical ultrasound This is a patel gestation. biometry is consistent with prior dating. Except where noted above, the anatomy was not reviewed in detail as this is a follow-up study and the anatomy was previously assessed. Normal fluid and movement are noted. Follow-up Follow-up as clinically indicated. DATE OF SERVICE: 06/10/2017 Procedure Note Itzel Guerrero MD - 06/10/2017 Indication Size/dates mismatch. History ======= General History Height 157 cm Height (ft) 5 ft Height (in) 2 in Previous Outcomes 1 Para 0 Patel children born (T) 0 Patel children born (P) 0 Abortions (A) 0 Patel living children (L) 0 Number of fetuses: 1. Maternal Assessment Height 157 cm Height (ft) 5 ft Height (in) 2 in Physical Exam Initial weight 92 kg Initial weight (lb) 203 lb Initial BMI 37.13 kg/m? Dating ======= LMP on: 10/29/2016 GA by LMP 32 w + 0 d GEOVANI by LMP : 08/05/2017 Ultrasound examination on: 06/10/2017 GA by U/S based upon: AC, BPD, Femur, HC GA by U/S 32 w + 0 d GEOVANI by U/S: 08/05/2017 Assigned: Dating performed on 03/19/2017 Based on the LMP Assigned GA 32 w + 0 d Assigned GEOVANI: 08/05/2017 General Evaluation Cardiac activity: Present. FHR 146 bpm. movements: visualized. Presentation: cephalic. Placenta: posterior, right. Amniotic fluid: Amount of AF: normal. MVP 4.5 cm. CHRISTI 12.1 cm. Q1 3.3 cm, Q2 4.5 cm, Q3 1.9 cm, Q4 2.5 cm. Anatomy Cranium: normal Lateral ventricles: normal Midline falx: normal Cranium: normal shape and size 4-chamber view: normal Stomach: normal Kidneys: normal Bladder: normal Gender: female Wants to know gender: yes Biometry Biometry BPD 80.9 mm 56% 32w 3d Hadlock OFD 102.7 mm 81% 33w 2d Jose HC 292.7 mm 38% 31w 3d [place] AC 285.4 mm 66% 32w 4d Hadlock Femur 61.3 mm 55% 31w 5d Jose Humerus 52.7 mm 17% 30w 5d Jose EFW 1,946 g 40% Hart Calculated by: Hadlock ([id number]-KC-EA-FL) EFW (lb) 4 lb EFW (oz) 5 oz Cephalic index 0.79 39% Nicolaides HC / AC 1.03 FL / BPD 0.76 FL / AC 0.21 MVP 4.5 cm CHRISTI 12.1 cm FHR 146 bpm Head / Face / Neck Assistant Professor Of English 5.2 mm Method ======== Transabdominal ultrasound examination, Voluson E10. View: Sufficient. Impression [id number] Follow-up obstetrical ultrasound This is a patel gestation. biometry is consistent with prior dating. Except where noted above, the anatomy was not reviewed in detail as this is a follow-up study and the anatomy was previously assessed. Normal fluid and movement are noted. Follow-up Follow-up as clinically indicated. DATE OF SERVICE: 06/10/2017 Maral Deal NP CNM IMG US USP ORD ERABLES documented in this encounter Visit Diagnoses Not on filedocumented in this encounter Care Teams Pipelines Laborer Relationship Specialty Start Date End Date Marva Hitchcock MD [address] [place] [phone] PCP - General 06/03/17 06/28/20 documented as of this encounter
--- OUTSIDE RECORDS SUMMARY | 2023-12-04 20:18 | XMS_ITS | Encounter Summary ---
Author Organization [facility] Address [address] [place] [address] Care Team Providers Care Payroll Human Resources Assistant Name Role Phone Marva Hitchcock MD Primary Care Provider [phone] Reason for Visit * Reason Comments Routine Visit Encounter Details Date Type Department Care Team (Late st Contact Info) Description 07/15/2017 9:30 EDT Routine [facility] OBGYN Services - [address] [phone] Sridevi Perez NP [address], [address] [place] [phone] GA: 37w0d Discharge Disposition: Auto Discharge Social History Tobacco [...] Sign Reading Time Taken Comments Blood Pressure 112/78 07/15/2017 0925 EDT Pulse - - Temperature - - Respiratory Rate - - Oxygen Saturation - - Inhaled Oxygen Concentration - - Weight 111.6 kg (246 lb) 07/15/2017924 EDT Height 157.5 cm (5' 2.01) 07/15/2017924 EDT Body Mass Index 44.98 07/15/2017924 EDT documented in this encounter Functional Status [...] as of this encounter Discharge Diagnoses Diagnosis Z34.90 Encounter for supervision of normal , unspecified, unspecified trimester-Z34.90[ICD-10-CM] documented in this encounter Discharge Disposition Disposition Code Departure Means Destination Auto Discharge documented in this encounter Progress Notes * Sridevi Perez, ROSENDO - 07/15/2017929 EDT S: Tiny Cline is here today for a visit at 37w0d. Thinks she has a HSV lesion on right labia. Had prodromal symptoms of itching and tingling then noticed bump. Mildly tender. Has been taking Valtrex 500mg PO BID. Aware of recommendation for pLTCS if has active outbreak at time of labor, comfortable with this. Denies s/s PEC, bleeding, loss of fluid or painful contractions. + FM. Doesn't want to use contraception, says my doesn't plan to come near me. Shares she is concerned about contraception as it took 4yrs to conceive this . O: Vitals: BP: 112/78 Height: 157.5 cm (62.01) Weight : (!) 111.6 kg (246 lb) BMI: 45.076 Heart Rate: 140 Movement: Present Presentation: Vertex Small closed pustule on left labia majora near mons, pink and mildly tender, no drainage No other vulvar lesions; no lesions noted on spec exam 36w u/s vertex, CHRISTI 13, 43%tile A: 21 y.o. at 37w0d IUP BMI 37 Hx HSV - possible lesion on treatment dosing of Valtrex AGA Sp ablation, managed by endo Asthma Subchorionic hemorrhage Hx depression not on meds P: Discussed with Yogesh LACY who advised CNM culture lesion as able and for pt to continue on Valtrex 500mg PO BID (outbreak treatment dose) x 2 weeks; can drop back down to suppressive dose of 500mg PO daily after next APV if outbreak is resolved. Lesion swabbed. Plan discussed with pt. Discussed safe spacing, contraceptive option - please continue discussion next APV and Reviewed warning signs/when to call Follow up in 1 wk, sooner PRN documented in this encounter Plan of Treatment Not on file documented as of this encounter Procedures Procedure Name Priority Date/Time Associated Diagnosis Comments MUCOCUTANEOUS VIRUS DETECTION Routine 07/15/2017 10:45 EDT Encounter for supervision of normal , antepartum, unspecified documented in this encounter Results * MUCOCUTANEOUS VIRUS DETECTION (07/15/2017 10:45 EDT) Result No Herpes simplex virus Type 1 or Type 2 detected by PCR. 07/16/2017 10:49 EDT [facility] Result (Note) Analyte Specific Reagent. This test was developed and its performance characteristics determined by Laboratory Medicine and Pathology, [facility]. This test has not been cleared or [...] to perform high complexity clinical laboratory testing. 07/16/2017 10:49 EDT [facility] GENITAL STRUCTURE / Unknown 07/15/2017 10:45 EDT 07/15/2017 10:59 EDT Sridevi Perez NP, CNM MICROBIOL OGY - GENERAL ORDERABLES [facility] [address] [place] [address] documented in this encounter Visit Diagnoses Diagnosis Encounter for supervision of normal , antepartum, unspecified - Primary documented in this encounter Care Teams Payroll Human Resources Assistant Relationship Specialty Start Date End Date Marva Hitchcock MD [address] [place] [phone] PCP - General 06/03/17 06/28/20 documented as of this encounter
--- OUTSIDE RECORDS SUMMARY | 2023-12-04 20:18 | XMS_ITS | Encounter Summary ---
Author Organization [facility] Address [address] [place] [address] Care Team Providers Care Streetcar Repairer Name Role Phone Unknown, Provider Primary Care Provider [phone] Reason for Visit * Reason Comments Routine Visit -lof -vb +fm +ctx Encounter Details Date Type Department Care Team (Late st Contact Info) Description 05/27/2017 8:45 EDT Routine [facility] OBGYN Services - [address] [phone] Ximena Gustafson, PARI [address], [address] [place] [phone] GA: 30w0d Social History Tobacco Use Types Packs/Day Years [...] Sign Reading Time Taken Comments Blood Pressure 108/74 05/27/2017 0836 EDT Pulse - - Temperature - - Respiratory Rate - - Oxygen Saturation - - Inhaled Oxygen Concentration - - Weight 107 kg (236 lb) 05/27/2017 0836 EDT Height 157.5 cm (5' 2.01) 05/27/2017 0836 EDT Body Mass Index 43.15 05/27/2017 0836 EDT documented in this encounter Functional Status [...] of this encounter Progress Notes * Ximena Gustafson, CNM - 05/27/2017 0845 EDT S: Tiny Cline is here today for a visit at 30w0d. Reports she has been feeling overall well, has noticed an increase in heartburn especially in the morning and at night. Reports she had not identified any triggering foods, has tried Tums with no relief, needs to space Tums from levothyroxine dosing x4 hrs which has been difficult because that is when she is typically more symptomatic. Is wondering what else she can take? Reports some left hip pain, feels like the baby is leaning more on left side. Reports she is not planning on taking CBE, does not want to go alone and is always working. 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 This has been stressful to Tiny as she feels he is too far away if something were to happen [facility] Hopes he will not need to go to [place] as much when she is closer to term. Reports she has many family members near by including her mother. Denies bleeding, loss of fluid or painful contractions.+ FM. O: Vitals: BP: 108/74 Height: 157.5 cm (62.01) Weight : (!) 107 kg (236 lb) BMI: 43.244 Fundal Height (cm): 32 cm Heart Rate: 150 Movement: Present Presentation: Vertex A: 21 y.o. 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 TSH levels q 4 weeks, continue management by endo U/s scheduled at 32 weeks on 06/10 Follow up in 2 wks Fernando AYERS involved in pt care documented in this encounter Plan of Treatment Not on file documented as of this encounter Visit Diagnoses Diagnosis Supervision of normal first , antepartum- Primary documented in this encounter Care Teams Streetcar Repairer Relationship Specialty Start Date End Date Unknown, Provider, PCP - General 05/26/17 06/02/17 documented as of this encounter
--- OUTSIDE RECORDS SUMMARY | 2023-12-04 20:18 | XMS_ITS | Encounter Summary ---
Author Organization [facility] Address [address] [place] [address] Care Team Providers Care Leather Tacker Name Role Phone Marva Hitchcock MD Primary Care Provider [phone] Reason for Visit * Reason Comments Routine Visit -vb -lof +fm +ctx Encounter Details Date Type Department Care Team (Late st Contact Info) Description 07/08/2017 10:30 EDT Routine [facility] OBGYN Services - [address] [phone] Sridevi Perez NP [address], [address] [place] [phone] GA: 36w0d Discharge Disposition: Auto Discharge Social History Tobacco [...] Sign Reading Time Taken Comments Blood Pressure 110/69 07/08/2017 1026 EDT Pulse - - Temperature - - Respiratory Rate - - Oxygen Saturation - - Inhaled Oxygen Concentration - - Weight 112 kg (247 lb) 07/08/2017 1026 EDT Height 157.5 cm (5' 2.01) 07/08/2017 1026 EDT Body Mass Index 45.17 07/08/2017 1026 EDT documented in this encounter Functional Status [...] as of this encounter Discharge Diagnoses Diagnosis O09.93 Supervision of high risk , unspecified, third trimester-O09.93[ICD-10-CM] Z11.59 Encounter for screening for other viral diseases-Z11.59[ICD-10-CM] B00.9 Herpesviral infection, unspecified-B00.9[ICD-10-CM] documented in this encounter Ordered Prescriptions Prescription Sig Dispensed Refills Start Date End Da te valACYclovir (VALTREX) 500 mg tabletIndications:PCR DNA positive for HSV1 TAKE ONE TABLET BY MOUTH EVERY 12 hours 60 Tab 1 07/08/2017 08/10/2017 documented in this encounter Discharge Disposition Disposition Code Departure Means Destination Auto Discharge documented in this encounter Progress Notes * Sridevi Perez, ROSENDO - 07/08/2017 1030 EDT S: Tiny Cline is here today for a visit at 36w0d. Just had ultrasound, report pending. Baby vertex, EFW 6#. Had last TSH at [facility]. Was good per Dr Nuñez, advised to continue 200mcg Levothyroxine until delivery and advised by endo that she does not need another TSH prior to delivery. Asking for refill of Valtrex with new dosing. Thinks she might have a lesion? Usually has prodromal symptoms of itching and tingling; hasn't had any, but reports she felt a bump on her vulva yesterday. Over being . Reports low back pain. Has had some relief with massage. Denies s/s PEC, bleeding, loss of fluid or painful contractions. + FM. O: Vitals: BP: 110/69 Height: 157.5 cm (62.01) Weight : (!) 112 kg (247 lb) BMI: 45.26 Heart Rate: 140, u/s Movement: Present Presentation: Vertex Vulvar exam: no evidence of HSV lesions Ultrasound report pending A: 21 y.o. at 36w0d IUP BMI 37 S/p ablation, followed by endo HSV - no active lesions Asthma Subchorionic hemorrhage Hx depression RH pos P: GBS collected, discussed treatment E-script Valtrex 500mg PO BID until delivery - advised to call with prodromal symptoms or lesions, aware c/s would be advised if active outbreak at time of labor or ROM Opiate consent signed Reviewed warning signs/when to call Follow up in 1 wk, sooner PRN documented in this encounter Plan of Treatment Not on file documented as of this encounter Visit Diagnoses Diagnosis Supervision of high risk in third trimester- Primary Unspecified high-risk PCR DNA positive for HSV1 Special screening examination for other specified viral diseases documented in this encounter Discontinued Medications Medication Sig Discontinue Reason Start Date End Da te valACYclovir (VALTREX) 500 mg tabletIndications:PCR DNA positive for HSV1 TAKE ONE TABLET BY MOUTH EVERY DAY Reorder 02/19/2017 07/08/2017 documented as of this encounter Care Teams Leather Tacker Relationship Specialty Start Date End Date Marva Hitchcock MD [address] [place] [phone] PCP - General 06/03/17 06/28/20 documented as of this encounter
--- OUTSIDE RECORDS SUMMARY | 2023-12-04 20:18 | XMS_ITS | Encounter Summary ---
Author Organization [facility] Address [address] [place] [address] Care Team Providers Care Sales Agent [employer] Name Role Phone Thea Santamaria MD Primary Care Provider Unknown, Provider Primary Care Provider Marva Hitchcock MD Primary Care Provider Encounter Details Date Type Department Care Team (Late st Contact Info) Description 05/06/2017 Orders Only [facility] OBGYN Services - [address] [phone] Maral Deal, RECONSTRUCTIVE SURGEON [facility] [address] [facility], [address] [place] [phone] Social History Tobacco Use Types [...] on filedocumented in this encounter Care Teams Sales Agent [employer] Relationship Specialty Start Date End Date Thea Santamaria MD [address] [place] [phone] PCP - General 11/25/16 05/25/17 Unknown, ProviderMD PCP - General 05/26/17 06/02/17 Marva Hitchcock MD [address] [place] [phone] PCP - General 06/03/17 06/28/20 documented as of this encounter
--- OUTSIDE RECORDS SUMMARY | 2023-12-04 20:18 | XMS_ITS | Encounter Summary ---
Author Organization [facility] Address [address] [place] [address] Care Team Providers Care Wardrobe Technician Name Role Phone Thea Santamaria MD Primary Care Provider [phone] Reason for Referral * HOUSEKEEPING LEAD (Routine) - New Request Specialty Diagnoses / Procedures Referred By Eugene asencio Referred To Contact Diagnoses BMI 37.0-37.9, adult Encounter for supervision of normal first in second trimester Procedures MCC FOLLOW-UP Maral Deal NP CNM [address] [phone] Referral ID Status Reason Start Date Expiration Date V isits Requested Visits Authorized [id number] New Request 04/16/2017 1 1 Reason for Visit * Reason Comments Routine Visit Encounter Details Date Type Department Care Team (Late st Contact Info) Description 04/16/2017 9:00 EST Routine [facility] OBGYN Services - [address] [phone] Maral Deal, MONOTYPE OPERATOR CNM [address] [phone] GA: 24w1d Social History Tobacco Use Types Packs/Day Years [...] Sign Reading Time Taken Comments Blood Pressure 110/60 04/16/2017 0907 EST Pulse - - Temperature - - Respiratory Rate - - Oxygen Saturation - - Inhaled Oxygen Concentration - - Weight 99.9 kg (220 lb 3.2 oz) 04/16/[address] Height 157.5 cm (5' 2.01) 04/16/2017 0907 EST Body Mass Index 40.26 04/16/2017 0907 EST documented in this encounter Functional Status [...] of this encounter Progress Notes * Maral Deal, ROSENDO - 04/16/2017 0900 EST S: Tiny Cline is here today for a visit at 24w1d with her mother. She is feeling well, no concerns. She is feeling some discomfort on her left side, feels baby likes to be on that sideso in general it is more sore. Denies bleeding, loss of fluid or painful contractions. + FM. Considering CBE. Just did TSH/T4 yesterday, manages her labs/medication, currently on 200mcg of synthroid, no recent changes. Mood is up and down, but overall doing well. O: Vitals: BP: 110/60 Height: 157.5 cm (62.01) Weight : 99.9 kg (220 lb 3.2 oz) BMI: 40.349 Fundal Height (cm): 27 cm Heart Rate: 155 Movement: Present A: 21 y.o. at 24w1d IUP Hypothyroid BMI-37 HSV Depression Asthma Hx RIGO- growth scan in 3rd trimester Rh positive S>D P: Growth scans ordered for BMI 37 and hx RIGO CBC/GTT, Tdap at next visit Encouraged CBE TSH/T4 drawn yesterday, Endo will call to f/u Reviewed warning signs of PTL Follow up in 4 wks documented in this encounter Plan of Treatment Not on file documented as of this encounter Procedures Procedure Name Priority Date/Time Associated Diagnosis Comments MCC FOLLOW-UP Routine 05/13/2017 9:23 EDT BMI 37.0-37.9, adult Encounter for supervision of normal first in second trimester documented in this encounter Results * [facility]CC FOLLOW-UP (05/13/2017 9:23 EDT) Anatomical Region Laterality Modality Other 05/13/2017 9:23 EDT 05/13/2017 9:31 EDT Narrative 05/13/2017 9:31 EDT Indication BMI 37.1. Size/dates mismatch. History ======= General History Height [...] ======= LMP on: ?10/29/2016 GA by LMP ??28 w + 0 d GEOVANI by LMP : ? 08/05/2017 Ultrasound examination on: 05/13/2017 GA by U/S based upon: ??AC, BPD, Femur, HC GA by U/S ??27 w + 5 d GEOVANI by U/S: ?08/07/2017 Assigned: ??Dating performed on 03/19/2017 Based on the LMP Assigned GA ?28 w + 0 d Assigned GEOVANI: ??08/05/2017 General Evaluation Cardiac activity: Present. FHR 161 bpm. movements: visualized. Presentation: cephalic. Placenta: posterior. Amniotic fluid: Amount of AF: normal. MVP 6.6 cm. CHRISTI 17.8 cm. Q1 5.9 cm, Q2 3.1 cm, Q3 6.6 cm, Q4 2.2 cm. Anatomy Cranium: ?? normal Lateral ventricles: ?normal Midline falx: ??normal Cranium: ?? normal shape and size 4-chamber view: ?normal Stomach: ?? normal Kidneys: ?? normal Bladder: ?? normal Gender: ?female Wants to know gender: ??yes Biometry Biometry BPD ?69.5 mm 36% 28w 0d Hadlock OFD ?87.2 mm 52% 28w 0d Jose HC 249.7 mm ?20% 26w 5d [place]venak AC 238.4 mm ?47% 28w 1d Hadlock Femur ??53.1 mm 67% 28w 2d Jose Humerus ?47.7 mm 45% 28w 0d Jose EFW ?1,166 g 25% Hart Calculated by: Hadlock (MII-WB-PY-FL) EFW (lb) ?? 2 lb EFW (oz) ?? 9 oz Cephalic index 0.80 ?60% Nicolaides HC / AC ?1.05 FL / BPD ?? 0.76 FL / AC ?0.22 MVP ?6.6 cm CHRISTI ?17.8 cm FHR ?161 bpm Head / Face / Neck Geographic Information Systems Director 4.7 mm Method ======== Transabdominal ultrasound examination, Voluson E10. View: Sufficient. Impression [id number] Follow-up obstetrical ultrasound This is a patel gestation. biometry is consistent with prior dating. Except where noted above, the anatomy was not reviewed in detail as this is a follow-up study and the anatomy was previously assessed. Normal fluid and movement are noted. Follow-up Follow-up as clinically indicated. DATE OF SERVICE: 05/13/2017 Procedure Note Pawan Ernandez MD - 05/13/2017 Indication BMI 37.1. Size/dates mismatch. History ======= General History Height [...] ======= LMP on: 10/29/2016 GA by LMP 28 w + 0 d GEOVANI by LMP : 08/05/2017 Ultrasound examination on: 05/13/2017 GA by U/S based upon: AC, BPD, Femur, HC GA by U/S 27 w + 5 d GEOVANI by U/S: 08/07/2017 Assigned: Dating performed on 03/19/2017 Based on the LMP Assigned GA 28 w + 0 d Assigned GEOVANI: 08/05/2017 General Evaluation Cardiac activity: Present. FHR 161 bpm. movements: visualized. Presentation: cephalic. Placenta: posterior. Amniotic fluid: Amount of AF: normal. MVP 6.6 cm. CHRISTI 17.8 cm. Q1 5.9 cm, Q2 3.1 cm, Q3 6.6 cm, Q4 2.2 cm. Anatomy Cranium: normal Lateral ventricles: normal Midline falx: normal Cranium: normal shape and size 4-chamber view: normal Stomach: normal Kidneys: normal Bladder: normal Gender: female Wants to know gender: yes Biometry Biometry BPD 69.5 mm 36% 28w 0d Hadlock OFD 87.2 mm 52% 28w 0d Jose HC 249.7 mm 20% 26w 5d Cherven[place] AC 238.4 mm 47% 28w 1d Hadlock Femur 53.1 mm 67% 28w 2d Jose Humerus 47.7 mm 45% 28w 0d Jose EFW 1,166 g 25% Hart Calculated by: Hadlock (YQE-UQ-QP-FL) EFW (lb) 2 lb EFW (oz) 9 oz Cephalic index 0.80 60% Nicolaides HC / AC 1.05 FL / BPD 0.76 FL / AC 0.22 MVP 6.6 cm CHRISTI 17.8 cm FHR 161 bpm Head / Face / Neck Geographic Information Systems Director 4.7 mm Method ======== Transabdominal ultrasound examination, Voluson E10. View: Sufficient. Impression [id number] Follow-up obstetrical ultrasound This is a patel gestation. biometry is consistent with prior dating. Except where noted above, the anatomy was not reviewed in detail as this is a follow-up study and the anatomy was previously assessed. Normal fluid and movement are noted. Follow-up Follow-up as clinically indicated. DATE OF SERVICE: 05/13/2017 Maral Deal NP, CNM Ángela [facility] ORD ERABLES documented in this encounter Visit Diagnoses Diagnosis Encounter for supervision of normal first in second trimester- Primary Supervision of normal first BMI 37.0-37.9, adult Body Mass Index 37.0-37.9, adult documented in this encounter Care Teams Wardrobe Technician Relationship Specialty Start Date End Date Thea Santamaria MD [address] [place] [phone] PCP - General 11/25/16 05/25/17 documented as of this encounter
--- OUTSIDE RECORDS SUMMARY | 2023-12-04 20:18 | XMS_ITS | Encounter Summary ---
Author Organization [facility] Address [address] [place] [address] Care Team Providers Care Component Lab Tech Name Role Phone Thea Santamaria MD Primary Care Provider [phone] Reason for Visit * Reason Onset Date Comments Results 12/25/2016 Encounter Details Date Type Department Care Team (Late st Contact Info) Description 12/25/2016 Telephone [facility] Endocrinology - [facility] [address] [place] [address] Carlos Nuñez, [address] [facility] [address] [place] [address] Results Social History Tobacco Use [...] No 12/24/2016 documented as of this encounter Ordered Prescriptions Prescription Sig Dispensed Refills Start Date End Da te levothyroxine (SYNTHROID) 200 mcg tabletIndications:Hypothyr oidism, postablative Take 1 Tab by mouth daily. 90 Tab 3 12/25/2016 07/07/2017 documented in this encounter Miscellaneous Notes * Telephone Encounter - Evan Perez RN - 12/25/2016 1348 EDT Spoke with patient and relayed Dr. Nuñez's review of lab work below: Please contact patient regarding her most recent thyroid function tests obtained on December 24, 2016. Her TSH is significantly elevated at 50 although her free T4 is in the low end of normal. This likely indicates missed doses or not taking medication properly. In addition patient recently found out she is . I would like her to increase her dose to 200 ??g daily and repeat TSH and free T4 in 4 weeks. She should have standing order that was faxed yesterday to [facility] for TSH and free T4 every 4 weeks for the duration of her . It is very important for her during her , in particular the first trimester, to keep a TSH less than 2.5. Prescription entered for 200 mcg levothyroxine and e scribed to [facility]. * Telephone Encounter - Carlos Nuñez DO - 12/25/2016 1348 EDT Please contact patient regarding her most recent thyroid function tests obtained on December 24, 2016. Her TSH is significantly elevated at 50 although her free T4 is in the low end of normal. This likely indicates missed doses or not taking medication properly. In addition patient recently found out she is . I would like her to increase her dose to 200 ??g daily and repeat TSH and free T4 in 4 weeks. She should have standing order that was faxed yesterday to [facility] for TSH and free T4 every 4 weeks for the duration of her . It is very important for her during her , in particular the first trimester, to keep a TSH less than 2.5. documented in this encounter Plan of Treatment Not on file documented as of this encounter Visit Diagnoses Diagnosis Hypothyroidism, postablative- Primary Other postablative hypothyroidism documented in this encounter Discontinued Medications Medication Sig Discontinue Reason Start Date End Da te levothyroxine (SYNTHROID) 175 mcg tabletIndications:Other postablative hypothyroidism Take 1 Tab by mouth daily. Reorder 12/25/2015 12/25/2016 documented as of this encounter Care Teams Component Lab Tech Relationship Specialty Start Date End Date Thea Santamaria MD [address] [place] [phone] PCP - General 11/25/16 05/25/17 documented as of this encounter
--- OUTSIDE RECORDS SUMMARY | 2023-12-04 20:18 | XMS_ITS | Encounter Summary ---
Author Organization [facility] Address [address] [place] [address] Care Team Providers Care Grants Analyst Name Role Phone Marva Hitchcock MD Primary Care Provider Encounter Details Date Type Department Care Team (Late st Contact Info) Description 07/08/2017 Results Only [facility] OBGYN Services - [address] [phone] Maral Deal, FINISHING TRIMMER [address] [place] [address] Social History Tobacco Use Types [...] Procedure Name Priority Date/Time Associated Diagnosis Comments [facility] 07/08/2017 10:10 EDT documented in this encounter Results * [facility] (07/08/2017 10:10 EDT) Anatomical Region Laterality Modality Other 07/08/2017 10:1 0 EDT 07/08/2017 14:32 EDT Narrative 07/08/2017 14:32 EDT Indication Size/dates mismatch. History ======= General [...] ======= LMP on: ?10/29/2016 GA by LMP ??36 w + 0 d GEOVANI by LMP : ? 08/05/2017 Ultrasound examination on: 07/08/2017 GA by U/S based upon: ??AC, BPD, Femur, HC GA by U/S ??35 w + 0 d GEOVANI by U/S: ?08/12/2017 Assigned: ??Dating performed on 03/19/2017 Based on the LMP Assigned GA ?36 w + 0 d Assigned GEOVANI: ??08/05/2017 General Evaluation Cardiac activity: Present. FHR 136 bpm. movements: visualized. Presentation: cephalic. Placenta: posterior, right. Amniotic fluid: Amount of AF: normal. MVP 4.6 cm. CHRISTI 13.0 cm. Q1 3.7 cm, Q2 0.0 cm, Q3 4.6 cm, Q4 4.6 cm. Anatomy Cranium: ?? normal Lateral ventricles: ?normal Midline falx: ??normal Cranium: ?? normal shape and size 4-chamber view: ?normal Stomach: ?? normal Kidneys: ?? normal Bladder: ?? normal Gender: ?female Wants to know gender: ??yes Biometry Biometry BPD ?88.6 mm 53% 35w 6d Hadlock OFD ?104.8 mm ?16% 34w 3d Jose HC 306.7 mm ?11% 33w 2d Chervenak AC 320.5 mm ?60% 36w 0d Hadlock Femur ??68.8 mm 60% 35w 0d Jose Humerus ?60.2 mm 40% 35w 0d Jose EFW ?2,716 g 43% Hart Calculated by: Hadlock (MXH-PU-UX-FL) EFW (lb) ?? 6 lb EFW (oz) ?? 0 oz Cephalic index 0.85 ?81% Nicolaides HC / AC ?0.96 FL / BPD ?? 0.78 FL / AC ?0.21 MVP ?4.6 cm CHRISTI ?13.0 cm FHR ?136 bpm Head / Face / Neck Crotch Piece Baster 7.4 mm Method ======== Transabdominal ultrasound examination, Voluson E10. View: Sufficient. Impression [id number] Follow-up obstetrical ultrasound This is a patel gestation. biometry is consistent with prior dating. Except where noted above, the anatomy was not reviewed in detail as this is a follow-up study and the anatomy was previously assessed. Normal fluid and movement are noted. Follow-up Follow-up as clinically indicated. DATE OF SERVICE: 07/08/2017 Procedure Note Mena Hunt MD - 07/08/2017 Indication Size/dates mismatch. History ======= General History [...] ======= LMP on: 10/29/2016 GA by LMP 36 w + 0 d GEOVANI by LMP : 08/05/2017 Ultrasound examination on: 07/08/2017 GA by U/S based upon: AC, BPD, Femur, HC GA by U/S 35 w + 0 d GEOVANI by U/S: 08/12/2017 Assigned: Dating performed on 03/19/2017 Based on the LMP Assigned GA 36 w + 0 d Assigned GEOVANI: 08/05/2017 General Evaluation Cardiac activity: Present. FHR 136 bpm. movements: visualized. Presentation: cephalic. Placenta: posterior, right. Amniotic fluid: Amount of AF: normal. MVP 4.6 cm. CHRISTI 13.0 cm. Q1 3.7 cm, Q2 0.0 cm, Q3 4.6 cm, Q4 4.6 cm. Anatomy Cranium: normal Lateral ventricles: normal Midline falx: normal Cranium: normal shape and size 4-chamber view: normal Stomach: normal Kidneys: normal Bladder: normal Gender: female Wants to know gender: yes Biometry Biometry BPD 88.6 mm 53% 35w 6d Hadlock OFD 104.8 mm 16% 34w 3d Jose HC 306.7 mm 11% 33w 2d Chervenak AC 320.5 mm 60% 36w 0d Hadlock Femur 68.8 mm 60% 35w 0d Jose Humerus 60.2 mm 40% 35w 0d Jose EFW 2,716 g 43% Hart Calculated by: Hadlock (OZL-ED-HP-FL) EFW (lb) 6 lb EFW (oz) 0 oz Cephalic index 0.85 81% Nicolaides HC / AC 0.96 FL / BPD 0.78 FL / AC 0.21 MVP 4.6 cm CHRISTI 13.0 cm FHR 136 bpm Head / Face / Neck Crotch Piece Baster 7.4 mm Method ======== Transabdominal ultrasound examination, Voluson E10. View: Sufficient. Impression [id number] Follow-up obstetrical ultrasound This is a patel gestation. biometry is consistent with prior dating. Except where noted above, the anatomy was not reviewed in detail as this is a follow-up study and the anatomy was previously assessed. Normal fluid and movement are noted. Follow-up Follow-up as clinically indicated. DATE OF SERVICE: 07/08/2017 Maral Deal FINISHING TRIMMER CNM [facility] ORD ERABLES documented in this encounter Visit Diagnoses Not on filedocumented in this encounter Care Teams Grants Analyst Relationship Specialty Start Date End Date Marva Hitchcock MD [address] [place] [phone] PCP - General 06/03/17 06/28/20 documented as of this encounter
--- OUTSIDE RECORDS SUMMARY | 2023-12-04 20:18 | XMS_ITS | Encounter Summary ---
Author Organization [facility] Address [address] [place] [address] Care Team Providers Care Shop Estimator Name Role Phone Thea Santamaria MD Primary Care Provider [phone] Reason for Visit * Reason Onset Date Comments Results 03/23/2017 Encounter Details Date Type Department Care Team (Late st Contact Info) Description 03/23/2017 Telephone [facility] Endocrinology - [facility] [address] [place] [address] Carlos Nuñez, [address] [facility] [address] [place] [address] Results Social History Tobacco Use [...] Telephone Encounter - Evan Perez RN - 03/23/2017 1649 EST Left detailed message for pt relaying Dr. Nuñez's message below: Please contact patient via phone. I reviewed her most recent thyroid function test obtained at [facility] on 03/18/2017. Her TSH remains in the desired range at 1.55 with a normal free T4 of 1.26. No change in dose. Repeat labs in 4 weeks. * Telephone Encounter - Carlos Nuñez DO - 03/23/2017 4249 EST Please contact patient via phone. I reviewed her most recent thyroid function test obtained at [facility] on 03/18/2017. Her TSH remains in the desired range at 1.55 with a normal free T4 of 1.26. No change in dose. Repeat labs in 4 weeks. documented in this encounter Plan of Treatment Not on file documented as of this encounter Visit Diagnoses Not on filedocumented in this encounter Care Teams Shop Estimator Relationship Specialty Start Date End Date Thea Santamaria MD [address] [place] [phone] PCP - General 11/25/16 05/25/17 documented as of this encounter
--- OUTSIDE RECORDS SUMMARY | 2023-12-04 20:18 | XMS_ITS | Encounter Summary ---
Author Organization [facility] Address [address] [place] [address] Care Team Providers Care 411 Directory Assistance Operator Name Role Phone Thea Santamaria MD Primary Care Provider [phone] Unknown, Provider Primary Care Provider [phone] Marva Hitchcock MD Primary Care Provider Reason for Visit * Reason Onset Date Comments Results 05/03/2017 Encounter Details Date Type Department Care Team (Late st Contact Info) Description 05/03/2017 Telephone [facility] Endocrinology - [facility] [address] [place] [address] Carlos Nuñez, 62 [facility] [address] [place] [address] Results Social History Tobacco Use [...] Telephone Encounter - Carlos Nuñez DO - 06/15/2017 1414 EDT Error documented in this encounter Plan of Treatment Not on file documented as of this encounter Visit Diagnoses Not on filedocumented in this encounter Care Teams 411 Directory Assistance Operator Relationship Specialty Start Date End Date Thea Santamaria MD [address] [place] [phone] PCP - General 11/25/16 05/25/17 Unknown, MD Misha PCP - General 05/26/17 06/02/17 Marva Hitchcock MD [address] [place] [phone] PCP - General 06/03/17 06/28/20 documented as of this encounter
--- OUTSIDE RECORDS SUMMARY | 2023-12-04 20:18 | XMS_ITS | Encounter Summary ---
Author Organization [facility] Address [address] [place] [address] Care Team Providers Care Eye Surgeon Name Role Phone Marva Hitchcock MD Primary Care Provider Reason for Visit * Reason Comments Routine Visit Encounter Details Date Type Department Care Team (Late st Contact Info) Description 06/10/2017 10:30 EDT Routine [facility] OBGYN Services - [address] [phone] Maral Deal, SCREENING UNIT REGISTERED NURSE [address] [place] [phone] GA: 32w0d Social History Tobacco Use Types Packs/Day Years [...] Sign Reading Time Taken Comments Blood Pressure 112/76 06/10/2017 1030 EDT Pulse - - Temperature - - Respiratory Rate - - Oxygen Saturation - - Inhaled Oxygen Concentration - - Weight 109.1 kg (240 lb 9.6 oz) 06/10/2017 1030 EDT Height 157.5 cm (5' 2.01) 06/10/2017 1030 EDT Body Mass Index 43.99 06/10/2017 1030 EDT documented in this encounter Functional Status [...] Progress Notes * Maral Deal CNM - 06/10/2017 1030 EDT APV today done with myself and Shefali Hoover Medical Student. In addition to her note, I discussed with Tiny trying customer care manager or PT for her related back and hip pain, she has achiropractor that has worked with women before that she plans to make an appointment with.She is going to try Pepcid and water from her meals and will then try omeprazole as a last resort for her persistent GERD. Growth scan today normal: 1946gm, 40%, CHRISTI 12.1, cephalic. * Shefali Hoover - 06/10/2017 1030 EDT S: Tiny Cline is here today with her mother for a visit at 32w0d. She has been having some back and hip pain that started two weeks ago. She tried tylenol and stretching to no effect. She is walking for exercise. Patient is still having heartburn. Tried zantac with no relief. Wondering about omeprazole. Had her TSH level drawn yesterday at [place], is still waiting for result. Fo llowed closely by endocrinology. Plans to breastfeed for 1 year, has worked with [facility] and is planning on getting a consult . Has been having nancy salinas. Denies bleeding, loss offluid or painful contractions. + FM. ?? O: Vitals: BP: 112/76 Height: 157.5 cm (62.01) Weight : (!) 109.1 kg (240 lb 9.6 oz) BMI: 44.087 Heart Rate: u/s Movement: Present Presentation: Vertex ?? A: 21 y.o. at 32w0d IUP BMI: 44 Asthma Rh+ HSV Hypothyroid-on synthroid 200mcg P: Follow up in 2 weeks with APV Growth US in 4 weeks Continue to have endocrinology manage thyroid, TSH q4wks. documented in this encounter Plan of Treatment Not on file documented as of this encounter Visit Diagnoses Diagnosis Encounter for supervision of normal first in third trimester- Primary Supervision of normal first documented in this encounter Care Teams Eye Surgeon Relationship Specialty Start Date End Date Marva Hitchcock MD [address] [place] [phone] PCP - General 06/03/17 06/28/20 documented as of this encounter
--- OUTSIDE RECORDS SUMMARY | 2023-12-04 20:18 | XMS_ITS | Encounter Summary ---
Author Organization [facility] Address [address] [place] [address] Care Team Providers Care Tile Finisher Name Role Phone Marva Hitchcock MD Primary Care Provider Encounter Details Date Type Department Care Team (Late st Contact Info) Description 07/07/2017 Orders Only [facility] OBGYN Services - [facility] [address] [place], [place] [phone] Neli Connelly RN Encounter for supervision of normal first in [...] Progress Notes * Neli Connelly RN - 07/07/2017 1143 EDT The [place] Prescription Monitoring System query has been completed per the following requirement(s): Acute Pain Episode. ROULA Wells documented in this encounter Plan of Treatment Not on file documented as of this encounter Results * GROUP B STREP PCR (07/08/2017 12:01 EDT) GROUP B STREP PCR Negative 07/09/2017 14:26 EDT [facility] Specimen of unknown material (specimen) TOPOGRAPHY UNKNOWN / Unknown 07/08/2017 12:01 EDT 07/08/2017 12:29 EDT Sridevi Perez ENTERTAINMENT CENTRE MANAGER CNM MICROBIOL OGY - GENERAL ORDERABLES [facility] [address] [place] [address] documented in this encounter Visit Diagnoses Diagnosis Encounter for supervision of normal first in third trimester- Primary Supervision of normal first documented in this encounter Care Teams Tile Finisher Relationship Specialty Start Date End Date Marva Hitchcock MD [address] [place] [phone] PCP - General 06/03/17 06/28/20 documented as of this encounter
--- OUTSIDE RECORDS SUMMARY | 2023-12-04 20:18 | XMS_ITS | Encounter Summary ---
Author Organization [facility] Address [address] [place] [address] Care Team Providers Care Molasses Preparer Name Role Phone Thea Santamaria MD Primary Care Provider [phone] Encounter Details Date Type Department Care Team (Late st Contact Info) Description 04/16/2017 Orders Only [facility] Endocrinology - [facility] [address] [place], [place] [phone] Carlos Nuñez, [address] [facility] [address] [place] [address] Social History Tobacco Use Types [...] Priority Date/Time Associated Diagnosis Comments TSH Routine 04/15/2017 10:45 EST T4 FREE Routine 04/15/2017 10:45 EST documented in this encounter Results * T4 FREE (04/15/2017 10:45 EST) Free T4, External 1.05 0.78 - 2.19 ng/dL [facility] Blood specimen (specimen) 04/15/2017 10:45 EST Carlos Nuñez DO CHEMISTRY & BL OOD GAS ORDERABLES Performing Organization Address City/[facility]/ZIP Co de Phone Number [facility] * (ABNORMAL) TSH (04/15/2017 10:45 EST) TSH, External 0.419(A) 0.47 - 4.68 mlU/L [facility] Comment:Corrected units 04/26 at 1214 Blood specimen (specimen) 04/15/2017 10:45 EST Carlos Nuñez DO CHEMISTRY & BL OOD GAS ORDERABLES Performing Organization Address City/[facility]/ZIP Co de Phone Number [facility] documented in this encounter Visit Diagnoses Not on filedocumented in this encounter Care Teams Molasses Preparer Relationship Specialty Start Date End Date Thea Santamaria MD [address] [place] [phone] PCP - General 11/25/16 05/25/17 documented as of this encounter
--- OUTSIDE RECORDS SUMMARY | 2023-12-04 20:18 | XMS_ITS | Encounter Summary ---
Author Organization [facility] Address [address] [place] [address] Care Team Providers Care Traffic Court Referee Name Role Phone Thea Santamaria MD Primary Care Provider [phone] Unknown, Provider Primary Care Provider [phone] Marva Hitchcock MD Primary Care Provider [phone] Unknown, Provider Primary Care Provider [phone] Camilla Jiang MD Primary Care Provider [phone] Danyel Forde DO Primary Care Provider + Danyel Forde DO Primary Care Provider + Ayla Solomon DO Primary Care Provider [phone] Encounter Details Date Type Department Care Team (Late st Contact Info) Description 02/18/2017 Documentation Visit [facility] OBGYN Services - [facility] [address] [place], [place] [phone] Neli Connelly RN Social History Tobacco Use Types Packs/Day [...] documented as of this encounter Care Teams Traffic Court Referee Relationship Specialty Start Date End Date Thea Santamaria MD [address] [place] [phone] PCP - General 11/25/16 05/25/17 Unknown, ProviderMD PCP - General 05/26/17 06/02/17 Marva Hitchcock MD [address] [place] [phone] PCP - General 06/03/17 06/28/20 Unknown, ProviderMD PCP - General 06/29/20 08/01/20 Camilla Jiang MD [address] [place] [phone] PCP - General Family Medicine - Primary Care 08/02/20 08/27/20 Danyel Forde DO [address] [place] [phone] PCP - General Family Medicine - Primary Care 08/29/20 04/11/21 Danyel Forde DO [address] [place] [phone] PCP - General 08/28/20 08/28/20 Ayla Solomon DO [address] [facility] [address] Mcdaniel [address] [place] [phone] PCP - General General Surgery 04/12/21 documented as of this encounter
--- OUTSIDE RECORDS SUMMARY | 2023-12-04 20:18 | XMS_ITS | Encounter Summary ---
Author Organization [facility] Address [address] [place] [address] Care Team Providers Care Senior Account Director Name Role Phone Thea Santamaria MD Primary Care Provider [phone] Reason for Visit * Reason Comments Routine Visit Encounter Details Date Type Department Care Team (Late st Contact Info) Description 01/22/2017 15:15 EST Routine [facility] OBGYN Services - [address] [phone] Kwasi Frausto APRN [address] [place] [phone] GA: 12w1d Discharge Disposition: Auto Discharge Social History Tobacco [...] Sign Reading Time Taken Comments Blood Pressure 104/62 01/22/2017 1512 EST Pulse - - Temperature - - Respiratory Rate - - Oxygen Saturation - - Inhaled Oxygen Concentration - - Weight 91.4 kg (201 lb 9.6 oz) 01/22/[address] Height 157.5 cm (5' 2.01) 01/22/2017 1512 EST Body Mass Index 36.86 01/22/2017 1512 EST documented in this encounter Functional Status [...] as of this encounter Discharge Diagnoses Diagnosis Z34.01 Encounter for supervision of normal first , first trimester-Z34.01[ICD-10-CM] documented in this encounter Discharge Disposition Disposition Code Departure Means Destination Auto Discharge documented in this encounter Progress Notes * Kwasi Frausto CNM - 01/22/2017 1515 EST S: Tiny Souzaey is here today for a visit with . Did initial labs [facility]morning at [facility].. Desires CF screening, plans to go to lab today for blood draw. Did not talk yet about other screening, may want [facility], not sure - aware of time sensitive window for conventional genetic screening. Feels mood has been stable so far, denies symptoms of depression. Taking B6 and Unisom for daily nausea and finds it manageable. O: Vitals: BP: 104/62 Height: 157.5 cm (62.01) Weight : 91.4 kg (201 lb 9.6 oz) BMI: 36.941 Heart Rate: 165 Movement: N/A See chart for complete PE A: 21 y.o. at 12w1d IUP Subchorionic hemorrhage H/o Graves with thyroid ablation, now on Synthroid 200mcg daily, managed by endo H/o genital HSV, on daily valtrex suppression H/o depression, not on meds or in therapy BMI 37 P: Initial PE done CF screening ordered Pt will let us know if desires further genetic screening Discussed Shayna Snyder as a resource for support/planning for mental health Follow up in 4 wks documented in this encounter Plan of Treatment Not on file documented as of this encounter Procedures Procedure Name Priority Date/Time Associated Diagnosis Comments CHLAMYDIA/N. GONORRHOEAE AMPLIFIED NUCLEIC ACID Routine 01/22/2017 15:58 EST Encounter for supervision of normal first in first trimester documented in this encounter Results * CYSTIC FIBROSIS MUTATION ANALYSIS, 106 PANEL (01/22/2017 16:10 EST) Result Summary NEGATIVE 01/30/2017 12:11 EST [facility] Result (Note) 01/30/2017 12:11 EST [facility] Comment:None of the listed m utations were detected. Interpretation (Note) 01/30/2017 12:11 EST [facility] Comment: Having excluded the [...] 03/25) Eastern ?127 ? (77%, 03/30) Ashkenazi Anglican ?801 ? (97%, 03/25) Uzbek Ponce ? (91%, 03/25) ? (81%, ) Mozambican ? 1/251 ? (82%, 1/46) Mozambican* ? 194 ? (54%, ) *does not apply to individuals of Croatian ancestry . These calculations are based on [...] ADDITIONAL INFORMATION An online research opportunity called Bioscale (Locai), a project of [employer], is available for the recipient of this genetic test. This patient registry collects de-identified genetic and health information to advance the knowledge of genetic variants. [facility] is a collaborator of [employer]. This may not be applicable for all [...] allogenic donors will interfere with testing. Call [facility] for instructions for testing patients who have received a bone marrow transplant. . Multiple in-silico evaluation tools may have been used to assist in the interpretation of these results. Of note, the sensitivity and specificity of these tools for the determination of pathogenicity is currently unvalidated. . This test was developed and its performance characteristics determined by [facility] in a manner consistent with CLIA requirements. This test has not been cleared or approved by the U.S. Food and Drug Administration. Specimen WB Whole Blood 01/30/2017 12:11 [facility] Method (Note) 01/30/2017 12:11 [facility] Comment: The multiplex PCR based assay utilizing the Njuice Array platform was used to detect 106 mutations, including the 23 mutations specified in the [place] [employer] (ACMG) standards for population based carrier screening. The mutations are as follows: [id number], [id number], G542X, G85E, R117H, E7225E (TGG>TGA), 621+1G>T, 711+1G>T, N2978K (C>A), I2958R (C>G), R334W, R347P, A455E, 1717-1G>A, R553X, R560T, G551D, 1898+1G>A, 2184delA, 2789+5G>A, 3120+1G>A, G4053G, 3659delC, 3849+10kbC>T, the deletion of exons 2-3, 296+2T>A, E60X, R75X, 394_395delTT, 405+1G>A, 406-1G>A, E92X, 444delA, 457TAT>G, R117C, Y122X, 574delA, 663delT, G178R, 711+5G>A, 712-1G>T, H199Y, P205S, L206W, 354wkb47, 935delA, 936delTA, vcxksW792, 1078delT, G330X, T338I, R347H, R352Q, Q359K, T360K, 1288insTA, S466X (C>A), S466X (C>G), G480C, Q493X, 1677delTA, C524X, S549N, S549R (T>G), Q552X, A559T, 1811+1.6kbA>G, 1812-1G>A, 1898+1G>T, 1898+1G>C, 1898+5G>T, P574H, 1561nkl49, 2043delG, 1970wvf1>A, 0384elg95azj3, 2108delA, 2143delT, 2183_2184delAAinsG, 2184insA, R709X, K710X, 2307insA, R764X, Q890X, 2869insG, 3171delC, 3871htj2, W2737M, B1578N (TGG>TAG), Q9304J (C>G), N8556D (C>A), U8329D, B1682U, B9831A, C4567K, 0496mqz9, O4754J, E8636H (TGG>TAG), 3791delC, K3538D, 3876delA, F6747L, F0133B, 3905insT, and 4016dupT mutations are detected. Poly T determination and confirmatory testing of homozygous results are performed as reflex tests when appropriate. Released By Milton Mello M.D., Ph.D. 01/30/2017 12:11 EST [facility] Comment: Performed or Referred by: [facility], [address] [place] [address], Lab Dir: Shiv Zelaya II, M.D., Ph.D. Blood specimen (specimen) BLOOD SPECIMEN / Unknown 01/22/2017 16:10 EST 01/22/2017 16:37 EST Kwasi Frausto APRN [facility] CHEMISTRY & BLOOD GAS ORDERABLES Performing Organization Address City/[facility]/ZIP Co de Phone Number [facility] [address] [place] [address] * CHLAMYDIA/N. GONORRHOEAE AMPLIFIED RNA (01/22/2017 15:58 EST) Chlamydia Result Negative 01/25/2017 13:31 EST [facility] GC Result Negative 01/25/2017 13:31 EST [facility] Specimen of unknown material (specimen) ENDOCERVICAL STRUCTURE / Unknown 01/22/2017 15:58 EST 01/22/2017 16:55 EST Sridevi Perez NP [facility] MICROBIOL OGY - GENERAL ORDERABLES [facility] [address] [place] [address] documented in this encounter Visit Diagnoses Diagnosis Encounter for supervision of normal first in first trimester- Primary Supervision of normal first documented in this encounter Care Teams Senior Account Director Relationship Specialty Start Date End Date Thea Santamaria MD [address] [place] [phone] PCP - General 11/25/16 05/25/17 documented as of this encounter
--- OUTSIDE RECORDS SUMMARY | 2023-12-04 20:18 | XMS_ITS | Encounter Summary ---
Author Organization [facility] Address [address] [place] [address] Care Team Providers Care Vice President Industrial Relations Name Role Phone Thea Santamaria MD Primary Care Provider [phone] Reason for Visit * Reason Comments Routine Visit Encounter Details Date Type Department Care Team (Late st Contact Info) Description 05/13/2017 10:30 EDT Routine [facility] OBGYN Services - [address] [phone] Maral Deal, [employer] [address] [place] [phone] GA: 28w0d Social History Tobacco Use Types Packs/Day Years [...] Sign Reading Time Taken Comments Blood Pressure 128/64 05/13/2017 0944 EDT Pulse - - Temperature - - Respiratory Rate - - Oxygen Saturation - - Inhaled Oxygen Concentration - - Weight 103.3 kg (227 lb 12.8 oz) 05/13/2017 0944 EDT Height - - Body Mass Index 41.65 04/16/2017 0907 EST documented in this encounter [...] Progress Notes * Maral Deal CNM - 05/13/2017 1030 EDT S: Tiny Cline is here today for a visit at 28w0d. She is feeling well, just had ultrasound for growth. Reviewed recent CBC/GTT, both normal. Discussed the Tdap, which she desires to get today. Continues to get TSH/T4 q4wks, no recent changes to synthroid. No recent issues with asthma. Denies bleeding, loss of fluid or painful contractions. + FM. O: Vitals: BP: 128/64 Weight : (!) 103.3 kg (227 lb 12.8 oz) Heart Rate: u/s Movement: Present A: 21 y.o. at 28w0d IUP BMI 37 HSV- on daily suppression Asthma Depression Hx RIGO Rh positive Hypothyroid- on synthroid 200mcg P: Tdap received today PTL warning signs reviewed Continue to have endocrinology manage thyroid, TSH/T4 q4wks Follow up in 2 wks documented in this encounter Plan of Treatment Not on file documented as of this encounter Visit Diagnoses Diagnosis Need for Tdap vaccination- Primary Need for prophylactic vaccination with combined nhmsvarnvi-gbfxasd-mtdfwecla (DTP) vaccine documented in this encounter Orders Immunization/Injection Count Last Ordered Date First Ordered Date TDAP VACCINE =>7YO IM 1 05/13/2017 documented in this encounter Care Teams Vice President Industrial Relations Relationship Specialty Start Date End Date Thea Santamaria MD [address] [place], [place] [phone] PCP - General 11/25/16 05/25/17 documented as of this encounter
--- OUTSIDE RECORDS SUMMARY | 2023-12-04 20:18 | XMS_ITS | Encounter Summary ---
Author Organization [facility] Address [address] [place] [address] Care Team Providers Care Hotel Clerk Name Role Phone Marva Hitchcock MD Primary Care Provider Reason for Visit * Reason Onset Date Comments Results 06/14/2017 Encounter Details Date Type Department Care Team (Late st Contact Info) Description 06/14/2017 Telephone [facility] Endocrinology - [facility] [address] [place] [address] Carlos Nuñez, [address] [facility] [address] [place] [address] Results Social History Tobacco Use [...] Telephone Encounter - Evan Perez RN - 06/14/2017 0923 EDT Called and left message for pt relaying Dr. Nuñez's message below: Please contact patient via phone. I have reviewed her most recent thyroid function tests on 06/09/17at [facility]. Her TSH is at goal at 0.676 and your free T4 of 1.04. She should continue on current dose.Please instruct pt to return to her prepregnancy dose after delivery and recheck labs in 6 weeks after delivery Instructed pt to call back with any questions. * Telephone Encounter - Carlos Nuñez DO - 06/14/2017 0858 EDT Please contact patient via phone. I have reviewed her most recent thyroid function tests on 06/09/17at [facility]. Her TSH is at goal at 0.676 and your free T4 of 1.04. She should continue on current dose.Please instruct pt to return to her prepregnancy dose after delivery and recheck labs in 6 weeks after delivery documented in this encounter Plan of Treatment Not on file documented as of this encounter Visit Diagnoses Not on filedocumented in this encounter Care Teams Hotel Clerk Relationship Specialty Start Date End Date Marva Hitchcock MD [address] [place] [phone] PCP - General 06/03/17 06/28/20 documented as of this encounter
--- OUTSIDE RECORDS SUMMARY | 2023-12-04 20:18 | XMS_ITS | Encounter Summary ---
Author Organization [facility] Address [address] [place] [address] Care Team Providers Care Oncology Technician Name Role Phone Thea Santamaria MD Primary Care Provider [phone] Encounter Details Date Type Department Care Team (Late st Contact Info) Description 05/05/2017 Orders Only [facility] OBGYN Services - [address] [phone] Maral Deal, GLOVE WRAPPER [address] [place] [phone] Social History Tobacco Use Types [...] Diagnosis Comments GLUCOSE-1HR GESTATIONAL SCREEN Routine 05/05/2017 9:25 EST COMPLETE BLOOD COUNT Routine 05/05/2017 9:25 EST documented in this encounter Results * (ABNORMAL) HEMAGRAM (05/05/2017 9:25 EST) HCT, External 36.0(A) 37 - 47 % [facility] MCH, External 29.4 27 - 31 pg [facility] MCV, External 88.9 81.0 - 99.0 fL [facility] MCHC, External 33.1 33 - 37 g/dL [facility] Hemoglobin, External 11.9(A) 12.0 - 16.0 g/dL [facility] WBC, External 10.81(A) 4.8 - 10.8 1000/mm3 [facility] RBC, External 4.05(A) 4.20 - 5.40 M/mm3 [facility] PLT, External 281 140 - 440 1000/mm3 [facility] RDW-CV, External 13.6 11.5 - 14.5 % [facility] Comment:Please see the scan ed report in [facility] for further interpretation. Blood specimen (specimen) 05/05/2017 9:25 EST Maral Deal NP, CNM HEMATOLOGY & P F4 ORDERABLES Performing Organization Address City/State/[facility] Co de Phone Number [facility] * GLUCOSE-1HR GESTATIONAL SCREEN (05/05/2017 9:25 EST) Glucose-1hr Gest Scn, External 118 50 - 500 mg/dL [facility] Glucose Dose, External Not given [facility] Blood specimen (specimen) 05/05/2017 9:25 EST Maral Deal NP, CNM PACKAGES & DNA PROBE ORDERABLES [facility] documented in this encounter Visit Diagnoses Not on filedocumented in this encounter Care Teams Oncology Technician Relationship Specialty Start Date End Date Thea Santamaria MD [address] [place] [phone] PCP - General 11/25/16 05/25/17 documented as of this encounter
--- OUTSIDE RECORDS SUMMARY | 2023-12-04 20:18 | XMS_ITS | Encounter Summary ---
Author Organization [facility] Address [address] [place] [address] Care Team Providers Care Special Assemblies Supervisor Name Role Phone Thea Santamaria MD Primary Care Provider [phone] Reason for Visit * Reason Comments Routine Visit Encounter Details Date Type Department Care Team (Late st Contact Info) Description 03/19/2017 9:30 EST Routine [facility] OBGYN Services - [address] [phone] Kwasi Frausto APRN [address], [address] [place] [phone] GA: 20w1d Social History Tobacco Use Types Packs/Day Years [...] Sign Reading Time Taken Comments Blood Pressure 126/70 03/19/2017 0959 EST Pulse - - Temperature - - Respiratory Rate - - Oxygen Saturation - - Inhaled Oxygen Concentration - - Weight 95.4 kg (210 lb 6.4 oz) 03/19/[address] Height 157.5 cm (5' 2.01) 03/19/2017 0959 EST Body Mass Index 38.47 03/19/2017 0959 EST documented in this encounter Functional Status [...] as of this encounter Progress Notes * Kwasi Frausto CNM - 03/19/2017 0930 EST S: Tiny Cline is here today for a visit. Just had ultrasound and everything looked normal. No concerns today, feeling well. Did thyroid labs today. O: Vitals: BP: 126/70 Height: 157.5 cm (62.01) Weight : 95.4 kg (210 lb 6.4 oz) BMI: 38.553 Fundal Height (cm): 20 cm Heart Rate: u/s Movement: Present A: 21 y.o. at 20w1d IUP S=D ISRA today shows normal fetus, posterior placenta Hypothyroid s/p ablation for Graves H/o HSV, on Valtrex suppression BMI 37, TWG 7# Depression, no meds P: CBE encouraged, discussed Medicaid reimbursement for classes with [facility] Follow up in 4 wks documented in this encounter Plan of Treatment Not on file documented as of this encounter Visit Diagnoses Diagnosis Supervision of normal first , antepartum- Primary documented in this encounter Discontinued Medications Medication Sig Discontinue Reason Start Date End Da te ACETAMINOPHEN (TYLENOL ORAL) Take 650 mg by mouth as needed. 03/19/2017 ALBUTEROL INHL Inhale as directed as needed. Reported on 07/03/2016 05/15/2010 03/19/2017 doxylamine 25 mg tablet tablet Take 0.5 Tabs by mouth at bedtime as needed for Nausea. 01/08/2017 03/19/2017 omeprazole (PRILOSEC) 40 mg capsuleIndications:Post prandial vomiting Take 1 Cap by mouth daily. 07/03/2016 03/19/2017 pyridoxine, vitamin B6, (VITAMIN B6) 50 mg tablet Take 1 Tab by mouth 2 times daily. 01/08/2017 03/19/2017 documented as of this encounter Care Teams Special Assemblies Supervisor Relationship Specialty Start Date End Date Thea Santamaria MD [address] [place] [phone] PCP - General 11/25/16 05/25/17 documented as of this encounter
--- OUTSIDE RECORDS SUMMARY | 2023-12-04 20:18 | XMS_ITS | Encounter Summary ---
Author Organization [facility] Address [address] [place] [address] Care Team Providers Care Learning Analyst Name Role Phone Thea Santamaria MD Primary Care Provider [phone] Reason for Visit * Reason Comments Eye Problem NPV- Retinal Evaluat ion (mother has RP) Encounter Details Date Type Department Care Team (Late st Contact Info) Description 01/08/2017 8:30 EST Office Visit [facility] Ophthalmology - [address] [phone] Ariel Ponce MD [address] [facility], [address] [place] [address] Discharge Disposition: Auto Discharge Social History Tobacco [...] Sign Reading Time Taken Comments Blood Pressure 124/82 01/08/2017 0838 EST Pulse - - Temperature - - [...] as of this encounter Discharge Diagnoses Diagnosis H35.89 Other specified retinal disorders-H35.89[ICD-10-CM] H25.13 Age-related nuclear cataract, bilateral-H25.13[ICD-10-CM] documented in this encounter Discharge Disposition Disposition Code Departure Means Destination Auto Discharge documented in this encounter Progress Notes * Ariel Ponce MD - 01/08/2017 0830 EST Chief Complaint Patient presents with ??? Eye Problem NPV- Retinal Evaluation (mother has RP) HPI Location: Pain: 0 - No pain Quality: Blurry Severity: Duration: Timing: Lasts: Context: NPV- Retinal Eval (mother has RP) Modifying factors: No eye drops Associated Signs & Symptoms: Patient states she hasnt seen her optom in a couple years but her vision has been fine has seen a couple floaters which are not new but they go away. No flashes or eye pain. Visual Fluctuations: Floaters Attestation: Family hx of RP Vision blur both eyes, mild corrected with glasses, months constant No pain no flashes same floaters Base Eye Exam Visual Acuity (Snellen - Linear) Right Left Dist cc 20/20 -2 20/20 Correction: Glasses Tonometry (Applanation, 8:46) Right Left Pressure 14 14 Pupils Pupils Right PERRL Left PERRL Visual Jackson Right Left Result Full Full Extraocular Movement Right Left Result Full Full Neuro/Psych Oriented x3: Yes Mood/Affect: Normal Dilation Both eyes: 1.0% Mydriacyl, , 2.5% Phenylephrine @ 8:46 Additional Tests Color Right Left Ishihara 13/13 C 13/13 C Slit Lamp and Fundus Exam External Exam Right Left External Normal Normal Slit Lamp Exam Right Left Lids/Lashes Normal Normal Conjunctiva/Sclera White and quiet White and quiet Cornea Clear Clear Anterior Chamber Deep and quiet Deep and quiet Iris Round and reactive Round and reactive Lens Trace Nuclear sclerosis Trace Nuclear sclerosis Vitreous Normal no cells Normal no cells Fundus Exam Right Left Disc Normal Normal Macula Normal Normal Vessels Normal Normal Periphery Inferior-temporal White without pressure Normal I have examined the following issues including lids , lashes , conjunctiva- both bulbar and palpebral, orbits, lacrimal glands and these were all noted to be normal Impression: 1. White without pressure of peripheral retina of right eye 2. Nuclear sclerosis of both eyes Plan: White without pressure right eye Infero temporal Observe Family Hx of RP Patients mother has RP No clinical evidence seen on todays exam Observe Trace NSC both eyes NVS Observe Comment No clinical evidence of RP on todays exam- Pts mother has RP Return if symptoms worsen or fail to improve, for f/u with Dr Allen as scheduled. Suggest VF with Valdemar I, Dr. Ponce, have performed my own HPI and reviewed the tech's ROS. I have also reviewed the patient's past medical, family, social and surgical history, as well as the patient's medications, allergies, and problem list. I am scribing for Dr. Ariel Ponce MD while he is personally performing the service. Nithya Johnson COA (Scribe) This office note has been dictated. * Ariel Ponce MD - 01/08/[address] [facility] OPHTHALMOLOGY January 08, 2017 Ruslan Aldrich MD [facility] Ophthalmology [address] [place] [id number] RE: TINY PEDRAZA : [address] Aldrich: Your patient, Tiny Pedraza, was seen today. Her mom has retinitis pigmentosa, so we are doing a family screening here. The patient has no night vision problems and as far as she is concerned, her vision is good. She sees 20/20 today. Intraocular pressures are in the teens. I have evaluated the following things in both eyes, confrontations visual jackson to count fingers, extraocular movements and eyes in primary position and these are all normal. (Normal confrontation visual jackson means visual jacskon are full to count fingers in all six jackson. Extraocular movements normal means movements were full and concomitant. Eyes normal in primary position means eyes are straight in primary position.) I have examined the following ophthalmic exam components for this patient, inspection of bulbar andpalpebral conjunctivae, ocular adnexa, which includes the lids, lacrimal glands, lacrimal drainage,orbits and preauricular lymph nodes, examination of pupils including shape, reaction and size, morphology not done due to mydriasis, irises were examined, presence or absence of rubeosis, corneal exam including epithelium, stroma, endothelium and tear film, anterior chambers including depth, cells and flare, lens exam including clarity, anterior and posterior capsule, cortex and nucleus. The above are all normal both eyes except trace nuclear sclerosis. Disc, macula, vessels and periphery look normal. There is no RP. The disc does not look atrophic orwaxy. Macular region is normal. There are no cells in the vitreous. There is no macular pucker. Assessment: I see at this point no clinical evidence of retinitis pigmentosa in Tiny. Her mom became symptomatic in her 20s. I doubt Tiny is going to manifest RP, but she may be a carrier. I suggest you consider a visual field as a baseline on Tiny to see if there is any evidence of constriction of her visual jackson. I doubt that it will be positive. I have asked her to get back to you for ongoing care. I did warn Tiny that should she start developing any night vision problems, she should consult one or the other of us. With best personal regards, Ariel Ponce MD 09 16 AM - Ariel Ponce MD cn Dictation ID: [id number] cc: Ruslan Aldrich MD, [facility] Ophthalmology [address] [place] [id number] documented in this encounter Plan of Treatment Not on file documented as of this encounter Visit Diagnoses Diagnosis White without pressure of peripheral retina of right eye- Primary Nuclear sclerosis of both eyes documented in this encounter Eye Exam Visual Acuity (Snellen - Linear) Right eye Left eye Dist cc 20/20 -2 20/20 Correction: Glasses Tonometry (Applanation, 8:46) Right eye Left eye Pressure 14 14 Pupils Pupils Right eye PERRL Left eye PERRL Visual Jackson Right eye Left eye Full Full Extraocular Movement Right eye Left eye Full Full Neuro/Psych Oriented x3: Yes Mood/Affect: Normal Dilation Both eyes: 1.0% Mydriacyl, , 2.5% Phenylephrine @ 8:46 Color Right eye Left eye Ishihara C C External Exam Right eye Left eye External Normal Normal Slit Lamp Exam Right eye Left eye Lids/Lashes Normal Normal Conjunctiva/Sclera White and quiet White and luann et Cornea Clear Clear Anterior Chamber Deep and quiet Deep and quiet Iris Round and reactive Round and janae ctive Lens Trace Nuclear sclerosis Trace Nu clear sclerosis Vitreous Normal no cells Normal no cells Fundus Exam Right eye Left eye Disc Normal Normal Macula Normal Normal Vessels Normal Normal Periphery Inferior-temporal White without pressure Normal Care Teams Learning Analyst Relationship Specialty Start Date End Date Thea Santamaria MD [address] [place] [phone] PCP - General 11/25/16 05/25/17 documented as of this encounter
--- OUTSIDE RECORDS SUMMARY | 2023-12-04 20:18 | XMS_ITS | Encounter Summary ---
Author Organization [facility] Address [address] [place] [address] Care Team Providers Care Welcome Wagon Hostess Name Role Phone Thea Santamaria MD Primary Care Provider [phone] Reason for Visit * Reason Comments Initial Visit -LOF, -VB, -FM, - CTX Encounter Details Date Type Department Care Team (Late st Contact Info) Description 01/08/2017 13:30 EST Initial [facility] OBGYN Services - [address] [phone] Sridevi Perez NP [facility] [address] [facility], [address] [place] [phone] GA: 10w1d Discharge Disposition: Auto Discharge Social History Tobacco [...] Sign Reading Time Taken Comments Blood Pressure 118/64 01/08/2017 1333 EST Pulse - - Temperature - - Respiratory Rate - - Oxygen Saturation - - Inhaled Oxygen Concentration - - Weight 92.1 kg (203 lb) 01/08/2017 1333 EST Height 157.5 cm (5' 2.01) 01/08/2017 1333 EST Body Mass Index 37.12 01/08/2017 1333 EST documented in this encounter Functional Status [...] as of this encounter Discharge Diagnoses Diagnosis Z34.00 Encounter for supervision of normal first , unspecified trimester-Z34.00[ICD-10-CM] Z11.59 Encounter for screening for other viral diseases-Z11.59[ICD-10-CM] Z34.01 Encounter for supervision of normal first , first trimester-Z34.01[ICD-10-CM] Z23 Encounter for immunization-Z23[ICD-10-CM] B00.9 Herpesviral infection, unspecified-B00.9[ICD-10-CM] documented in this encounter Ordered Prescriptions Prescription Sig Dispensed Refills Start Date End Da te doxylamine 25 mg tablet tablet Take 0.5 Tabs by mouth at bedtime as needed for Nausea. 30 Tab 1 01/08/2017 03/19/2017 pyridoxine, vitamin B6, (VITAMIN B6) 50 mg tablet Take 1 Tab by mouth 2 times daily. 60 Tab 1 01/08/2017 03/19/2017 valACYclovir (VALTREX) 500 mg tabletIndications:PCR DNA positive for HSV1 TAKE ONE TABLET BY MOUTH EVERY DAY 30 Tab 01/08/2017 02/19/2017 documented in this encounter Discharge Disposition Disposition Code Departure Means Destination Auto Discharge documented in this encounter Progress Notes * Sridevi Perez CNM - 01/08/2017 1437 EST Initial Part 1 Subjective: Tiny Cline is a 21 y.o. female at 10w1d who presents for her care. She attends with her mother. is Carlos Cline. No contraception x 4 years. Trying but not trying.Couple was surprised but excited. Tiny works for [employer] in [place]; Carlos works for [employer]. Lots of local family for support. Current Estimated Date of Delivery: 08/05/17 based on Last Menstrual Period and Ultrasound. Symptoms since LMP: 1st trimester bleeding. Seen in ER, had serial bHCG. Viable IUP diagnosed at 7w, subchorionic hemorrhage 4.6 x 1.7 x 2.4 cm. No bleeding since 8 weeks. Reports nausea, emesis 2-3x/day, mild cramping. Denies urinary or bowel changes, SOB, TRIVEDI, dizziness, fever, rash or recent illness. -hypothyroid s/p radioactive iodine treatment and thyroid ablation 2012, managed by Joa[facility] L[facility]; last TSH 12/24/16 50, synthroid increased to 200mcg daily and was told to repeat TSH and Free T4 in 4 weeks and q 4 weeks throughout her -HSV - has genital outbreaks if she doesn't take daily suppression. Would like refill of her Valtrex. -hx depression, used to take meds but can't remember what, stopped in 07/2016 b/c it wasn't helping; feels mood is stable -asthma - rare albuterol use -strong FH diabetes and HTN -brother is autistic; mom has retinitis pigmentosa and is legally blind Quit smoking tobacco and drinking alcohol after she found out she was ; remote history marijuana use. No formal exercise. Diet recall reveals limited vegetables and fruits, processed foods daily. 3 cats at home, not changing litter box. Lost 2 friends to CF (they were siblings). Would like screening. Patient Active Problem List Diagnosis ??? Acanthosis nigricans ??? Vitamin D deficiency ??? Status post radioactive iodine thyroid ablation ??? PCR DNA positive for HSV1 ??? Hypothyroidism, postablative ??? Closed fracture of nasal bone ??? Depression ??? Tobacco dependence ??? Graves' disease ??? Supervision of normal first , antepartum ??? BMI 37.0-37.9, adult ??? Autoimmune disorder (HCC) ??? Asthma Allergies Allergen Reactions ??? Hydrocodone Nausea And Vomiting ??? Lorabid [Loracarbef] Nausea And Vomiting ??? Vicodin [Hydrocodone-Acetaminophen] Nausea And Vomiting ??? Yeast, Dried Nausea And Vomiting If consumes large amounts will develop N/V Past obstetric history reviewed and complications noted in table. Significant OB History: none Past Medical History: Diagnosis Date ??? ADD (attention deficit disorder) ??? Asthma, exercise induced ??? Autoimmune disorder (HCC) Grave's disease ??? Depression was taking meds (can't remember what), stopped in 07/2016, no counselor ??? Mood disorder (HCC) ??? Thyroid disease Past Surgical History: Procedure Laterality Date ??? 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 Family History Problem Relation Age of Onset [...] Attack Under 50 Neg Hx Social History Social History ??? Marital status: Spouse name: N/A ??? Number of children: N/A ??? 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 [employer] Social History Main Topics ??? Smoking status: Former Smoker Packs/day: 0.50 Years: 5.00 Types: Cigarettes ??? Smokeless tobacco: Never Used Comment: quit prior to dating ultrasound ??? Alcohol use 4.8 oz/week 7 Glasses of wine, 1 Standard drinks or equivalent per week Comment: no drinking since dating ultrasound ??? Drug use: No ??? Sexual activity: Yes Partners: Male Other Topics Concern ??? Lives With Parent(S) Yes lives with mom only, dad not involved ??? Enrolled In School Yes grade 11 ??? Doing Well In School Yes ??? Iep/504 Plan Yes Social History Narrative Living Situation: Stable Marital and Good Family Support Review of Systems: Pertinent items are noted in Subjective/HPI Objective: Vitals: 01/08/17 1333 BP: 118/64 Weight: 92.1 kg (203 lb) Height: 157.5 cm (62.01) Body mass index is 37.12 kg/(m^2). Complete PE deferred, unable to ausc FHTs Results for orders placed or performed in visit on 12/24/16 (from the past 672 hour(s)) TSH Collection Time: 12/24/16 14:37 Result Value Ref Range TSH 50.90 (H) 0.47 - 4.68 uIU/ml T4 FREE Collection Time: 12/24/16 14:37 Result Value Ref Range T4, Free 0.9 0.8 - 2.2 ng/dl Results for orders placed or performed in visit on 12/16/16 (from the past 672 hour(s)) HCG FOR Collection Time: 12/16/16 15:23 Result Value Ref Range HCG 85980 (H) <5 mIU/ml Assessment: 1. IUP at 10w1d: nausea/vomiting 2. Estimated Date of Delivery: 08/05/17 based on Last Menstrual Period and Ultrasound. 3. Subchorionic hemorrhage 4. BMI 37 5. Hypothyroid s/p ablation - elevated TSH 12/24/16 6. Asthma 7. Genital HSV 8. Hx depression, no meds or therapist 9. Strong diabetes Plan: 1. Problem list reviewed and updated. Oriented to [facility] care at [facility]: midwifery model, 21/09 midwifery and MD coverage, work with OB residents, freq of visits, standard testing. [facility] packet reviewed in full. Reviewed warning signs/when to call including any bleeding. BMI disclosure. TWG 10-20#. Advised regular exercise / brisk walks at lunch, healthy diet. Reduce processed foods/sugars if able. Has WIC info, declines [facility] referral. Discussed nausea/vomiting management, handout given. B6 50mg BID and Unisom 1/2 tab at HS e-scribed per pt request. 2. Aneuploidy testing: all options reviewed including CF and SMA, desires CF, declines SMA. CF precert completed. Pt will likely want [facility] [facility] but will discuss with - f/u re: [place] at next visit. 3. Additional testing: desires lab draw at [facility], external referral given for [facility] labs, 1hr GTT, TSHand free T4. Flu shot given. Discussed 3rd trimester growth ultrasounds. 4. Refill for Valtrex e-scribed per pt request 5. Discussed normalcy of not being able to ausc FHTs at 10w, pt okay to wait until 12w / [facility] 2 for FHTs 6. Follow-up in 2 weeks, sooner PRN Please discuss Claudio ROBBINS as a resource next visit 100% of 60 min visit spent on counseling and coordination of care. Sridevi Perez CNM documented in this encounter Plan of Treatment Not on file documented as of this encounter Procedures Procedure Name Priority Date/Time Associated Diagnosis Comments BACTERIAL CULTURE, URINE Routine 01/08/2017 14:38 EST Encounter for supervision of normal first in first trimester documented in this encounter Results * BACTERIAL CULTURE, URINE (01/08/2017 14:38 EST) Result Less than 10,000 CFU/ml Usual urogenital santi. 01/09/2017 10:17 EST [facility] Urine specimen (specimen) URINE / Unknown 01/08/2017 14:38 EST 01/08/2017 16:15 EST Sridevi Perez NP, CNM MICROBIOL OGY - GENERAL ORDERABLES [facility] [address] [place] [phone] documented in this encounter Visit Diagnoses Diagnosis Supervision of normal first , antepartum- Primary PCR DNA positive for HSV1 Special screening examination for other specified viral diseases Encounter for supervision of normal first in first trimester Supervision of normal first Need for prophylactic vaccination and inoculation against influenza documented in this encounter Discontinued Medications Medication Sig Discontinue Reason Start Date End Da te valACYclovir (VALTREX) 500 mg tabletIndications:PCR DNA positive for HSV1 TAKE ONE TABLET BY MOUTH EVERY DAY Reorder 11/05/2016 01/08/2017 documented as of this encounter Historical Medications * This list may reflect changes made after this encounter. Medication Sig Dispensed Refills Start Date End Date VITS62/FA/OM3/DHA/EPA ( GUMMY ORAL) Take by mouth. 06/29 added in this encounter Orders Immunization/Injection Count Last Ordered Date First Ordered Date INFLUENZA VACCINE QUAD PRESE RVATIVE FREE 0.5 ML IM 1 01/08/2017 documented in this encounter Care Teams Welcome Wagon Hostess Relationship Specialty Start Date End Date Thea Santamaria MD [address] [place] [phone] PCP - General 11/25/16 05/25/17 documented as of this encounter
--- OUTSIDE RECORDS SUMMARY | 2023-12-04 20:18 | XMS_ITS | Encounter Summary ---
Author Organization [facility] Address [address] [place] [address] Care Team Providers Care Heat Transfer Technician Name Role Phone Marva Hitchcock MD Primary Care Provider Reason for Visit * Reason Onset Date Comments Medication Management 07/07/2017 Encounter Details Date Type Department Care Team (Late st Contact Info) Description 07/07/2017 Telephone [facility] Endocrinology - [facility] [address] [place] [address] Carlos Nuñez, [address] [facility] [address] [place] [address] Medication Management Social History Tobacco [...] mouth daily. 90 Tab 1 07/07/2017 04/06/2018 documented in this encounter Miscellaneous Notes * Telephone Encounter - Evan Perez RN - 07/07/2017 1552 EDT Prescription sent for 175 mcg [facility] in [place] as requested by pt. Notified mother that prescription was sent. * Telephone Encounter - Carlos Nuñez DO - 07/07/2017 1430 EDT Ok to send script * Telephone Encounter - Lisa Cochran - 07/07/2017 1324 EDT Pt is requesting new script for Levothyroxine in 175mcg be provided - due any time for delivery, and wants on hand for after to switch back to previous dose. Please send to [facility] in [place] and call mother to let her know when done - or message can be sent through [facility] documented in this encounter Plan of Treatment Not on file documented as of this encounter Visit Diagnoses Diagnosis Hypothyroidism, postablative- Primary Other postablative hypothyroidism documented in this encounter Discontinued Medications Medication Sig Discontinue Reason Start Date End Da te levothyroxine (SYNTHROID) 200 mcg tabletIndications:Hypothyr oidism, postablative Take 1 Tab by mouth daily. Reorder 12/25/2016 07/07/2017 documented as of this encounter Care Teams Heat Transfer Technician Relationship Specialty Start Date End Date Marva Hitchcock MD [address] [place] [phone] PCP - General 06/03/17 06/28/20 documented as of this encounter
--- OUTSIDE RECORDS SUMMARY | 2023-12-04 20:18 | XMS_ITS | Encounter Summary ---
Author Organization [facility] Address [address] [place] [address] Care Team Providers Care Front End Drupal Developer Name Role Phone Marva Hitchcock MD Primary Care Provider [phone] Reason for Visit * Reason Comments Routine Visit Encounter Details Date Type Department Care Team (Late st Contact Info) Description 07/29/2017 9:15 EDT Routine [facility] OBGYN Services - [address] [phone] Elieser Garcia APRN [address], [address] [place] [phone] GA: 39w0d Social History Tobacco Use Types Packs/Day Years [...] Sign Reading Time Taken Comments Blood Pressure 112/80 07/29/2017 0929 EDT Pulse - - Temperature - - Respiratory Rate - - Oxygen Saturation - - Inhaled Oxygen Concentration - - Weight 116.1 kg (256 lb) 07/29/2017 09 EDT Height 157.5 cm (5' 2.01) 07/29/2017 09 EDT Body Mass Index 46.81 07/29/2017 09 EDT documented in this encounter Functional Status [...] as of this encounter Progress Notes * Elieser Garcia CNM - 07/29/2017 0915 EDT S: Tiny Cline is here today for a visit at 39w0d. Seen on L&D a few days ago - was having back and hip pain. Nothing changed but cramping less. Denies bleeding, loss of fluid or painful contractions. + FM. O: Vitals: BP: 112/80 Height: 157.5 cm (62.01) Weight : (!) 116.1 kg (256 lb) BMI: 46.909 Fundal Height (cm): 40 cm Heart Rate: 142 Movement: Present Presentation: Vertex SVE on 07/26 Cx very posterior but 1-2cm/ 80%/ Vtx -1 GBS negative U/S EFW 07/08/17 43% 6# Limited [place] AGA A: 21 y.o. at 39w0d IUP Body habitus makes FH assessment inaccurate. BMI 37+ Hx asthma Hx depression - stable Hypothyroid on medication P: Knows when to call for labor. Briefly touched on IOL timing (hopes to avoid) Draw TSH at next visit or with admission labs - not checked since April Follow up in 1 wk documented in this encounter Plan of Treatment Not on file documented as of this encounter Visit Diagnoses Diagnosis Encounter for supervision of normal first in third trimester- Primary Supervision of normal first documented in this encounter Care Teams Front End Drupal Developer Relationship Specialty Start Date End Date Marva Hitchcock MD [address] [place] [phone] PCP - General 06/03/17 06/28/20 documented as of this encounter
--- OUTSIDE RECORDS SUMMARY | 2023-12-04 20:18 | XMS_ITS | Encounter Summary ---
Author Organization [facility] Address [address] [place] [address] Care Team Providers Care Top Lift Cutter Name Role Phone Thea Santamaria MD Primary Care Provider [phone] Reason for Visit * Reason Onset Date Comments Results 05/23/2017 Encounter Details Date Type Department Care Team (Late st Contact Info) Description 05/23/2017 Telephone [facility] - [facility] [address] [place] [address] Carlos Nuñez, [address] [facility] [address] [place] [address] Results Social History Tobacco Use [...] Telephone Encounter - Evan Perez RN - 05/24/2017 1109 EDT Called and spoke with patient and relayed Dr. Nuñez's message below: Please contact patient via phone. I reviewed her most recent thyroid function test obtained at [facility] on 05/12/2017. Her TSH remains in the desired range at 0.9 with a free T4 of 1.0. She should continue on her current dose of levothyroxine. Repeat blood work in 4 weeks. Please inquire the patient has a standing order [facility] for blood work every 4 weeks that she is . Patient verbalized understanding. No barriers to learning noted. * Telephone Encounter - Carlos Nuñez DO - 05/23/2017 2017 EDT Please contact patient via phone. I reviewed her most recent thyroid function test obtained at [facility] on 05/12/2017. Her TSH remains in the desired range at 0.9 with a free T4 of 1.0. She should continue on her current dose of levothyroxine. Repeat blood work in 4 weeks. Please inquire the patient has a standing order [facility] for blood work every 4 weeks that she is . documented in this encounter Plan of Treatment Not on file documented as of this encounter Visit Diagnoses Not on filedocumented in this encounter Care Teams Top Lift Cutter Relationship Specialty Start Date End Date Thea Santamaria MD [address] [place] [phone] PCP - General 11/25/16 05/25/17 documented as of this encounter
--- OUTSIDE RECORDS SUMMARY | 2023-12-04 20:18 | XMS_ITS | Encounter Summary ---
Author Organization [facility] Address [address] [place] [address] Care Team Providers Care Shingle Packer Name Role Phone Thea Santamaria MD Primary Care Provider [phone] Reason for Referral * [employer] MASTER (Other (Specify in Question)) - Closed Specialty Diagnoses / Procedures Referred By Eugene asencio Referred To Contact Diagnoses Encounter for supervision of normal first in second trimester Procedures [facility] ROUTINE Elieser Garcia APRN CNM [address] [phone] Referral ID Status Reason Start Date Expiration Date Visits Re quested Visits Authorized [id number] Closed 02/19/2017 1 1 Reason for Visit * Reason Comments Routine Visit Encounter Details Date Type Department Care Team (Late st Contact Info) Description 02/19/2017 9:00 EST Routine [facility] - [address] [phone] Elieser Garcia APRN Ke[place] [address] [phone] GA: 16w1d Social History Tobacco Use Types Packs/Day Years [...] Sign Reading Time Taken Comments Blood Pressure 124/74 02/19/2017 0849 EST Pulse - - Temperature - - Respiratory Rate - - Oxygen Saturation - - Inhaled Oxygen Concentration - - Weight 94.8 kg (209 lb) 02/19/2017 0849 EST Height 157.5 cm (5' 2.01) 02/19/2017 0849 EST Body Mass Index 38.22 02/19/2017 0849 EST documented in this encounter Functional Status [...] TABLET BY MOUTH EVERY DAY 30 Tab 4 02/19/2017 07/08/2017 documented in this encounter Progress Notes * Elieser Garcia CNM - 02/19/2017 0900 EST S: Tiny Cline is here today for a visit. No concerns. Feeling flutters of FM! Decided to decline genetic testing. Aware of F/U plan for thyroid management (thru endocrine MD). Asthma is stable. Quit smoking and ETOH cold turkey! Some struggles with that when day is stressful but [place]. Taking daily HSV suppression and requests refill of Valtrex. O: Vitals: BP: 124/74 Height: 157.5 cm (62.01) Weight : 94.8 kg (209 lb) BMI: 38.297 Fundal Height (cm): 16 cm Heart Rate: 150 Movement: Present 12/24/16 TSH = 50 (!) Dose change TFT 02/18/17 all WNL A: 21 y.o. at 16w1d IUP S=D Hx genital HSV Asthma Recent smoking cessation BMI 37 Hypothyroid post ablation stabilizing on medication P: Reviewed PN labs (M and [facility]) Declines genetic testing Will F/U q 4 wks with TSH/T4 levels and management thru Her Endocrine MD Continue daily Valtrex 500 mg. Refill to pharmacy. Will increase to suppression dose (BID) at 36 wks Congrats for keeping quit of smiling and ETOH!! ISRA ordered Will need growth U/S d/t BMI in 3rd trimester (not discussed today) Follow up in 4 wks documented in this encounter Plan of Treatment Not on file documented as of this encounter Procedures Procedure Name Priority Date/Time Associated Diagnosis Comments [facility] ROUTINE Routine 03/19/2017 9:23 EST Encounter for supervision of normal first in second trimester documented in this encounter Results * [facility] ROUTINE (03/19/2017 9:23 EST) Anatomical Region Laterality Modality Other 03/19/2017 9:23 EST 03/19/2017 10:10 EST Narrative 03/19/2017 10:10 EST Indication BMI 37.1; Screening. History ======= General History Height 157 cm Height (ft) ?5 ft Height (in) ?2 in Previous Outcomes ?1 Para ?? 0 Patel children born (T) ?0 Patel children born (P) ?0 Abortions (A) ??0 Patel living children (L) ??0 Maternal Assessment Height 157 cm Height (ft) ?5 ft Height (in) ?2 in Physical Exam Initial weight 92 kg Initial weight (lb) ?203 lb Initial BMI ?37.13 kg/m? Number of fetuses: 1. Dating ======= Method of dating: ??based on the LMP LMP on: ?10/29/2016 GA by LMP ??20 w + 1 d GEOVANI by LMP : ? 08/05/2017 Ultrasound examination on: 03/19/2017 GA by U/S based upon: ??AC, BPD, Femur GA by U/S ??19 w + 6 d GEOVANI by U/S: ?08/07/2017 Previous dating: ?? Dating performed on 12/23/2016 Based on the LMP Assigned GA of previous dating 20 w + 1 d Agreed GEOVANI of previous datin08/05/2017 Assigned: ??Dating performed on 03/19/2017, based on the LMP Assigned GA ?20 w + 1 d Assigned GEOVANI: ??08/05/2017 General Evaluation Cardiac activity: Present. FHR 147 bpm. movements: visualized. Presentation: breech. Placenta: posterior. Umbilical cord: Cord vessels: 3 vessel cord. Cord insertion: placental insertion: normal. Amniotic fluid: Amount of AF: normal. Biometry Biometry BPD ?43.0 mm 10% 19w 0d Hadlock OFD ?60.5 mm 75% 20w 6d Jose HC 166.8 mm ?25% [place] AC 148.4 mm ?43% 20w 1d Hadlock Femur ??32.7 mm 67% 20w 3d Jose Cerebellum tr ??19.9 mm 41% 19w 6d Osborn CM 3.5 mm ??8% Nicolaides Nuchal fold ?4.08 mm Humerus ?31.9 mm 73% 20w 5d Jose EFW ?328 g Calculated by: Hadlock ([id number]) EFW (lb) ?? 0 lb EFW (oz) ?? 12 oz Cephalic index 0.71 ?1% Nicolaides HC / AC ?1.12 ?25% Hadlock FL / BPD ?? 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 normal Lateral ventricles: ?normal Choroid plexus: ?normal Midline falx: ??normal Cavum septi pellucidi: normal Cerebellum: ?normal Cisterna magna: ?normal Lips: ??normal 4-chamber view: ?normal RVOT: ??normal LVOT: ??normal 4-chamber view: ?Appears normal in suboptimal views RVOT: ??Appears normal in suboptimal views LVOT: ??Appears normal in suboptimal views Cord insertion: ?normal Stomach: ?? normal Kidneys: ?? normal Bladder: ?? normal Abdom. wall: ?? normal Cervical spine: ?normal Thoracic spine: ?normal Lumbar spine: ??normal Sacral spine: ??normal Arms: ??normal Legs: ??normal/ Gender: Unreported Wants to know gender: ??No Maternal Structures Uterus / Cervix Uterus: ?Appears normal Cervix: ?Appears normal Ovaries / Tubes / Adnexa Rt ovary: ??Visualized, normal appearance Rt ovary D1 ?2.4 cm Rt ovary D2 ?2.1 cm Rt ovary D3 ?1.6 cm Rt ovary mean ??2.0 cm Rt ovary vol ?? 4.1 cm cubed Lt ovary: ??Visualized, normal appearance Lt ovary D1 ?2.6 cm Lt ovary D2 ?2.1 cm Lt ovary D3 ?1.9 cm Lt ovary mean ??2.2 cm Lt ovary vol ?? 5.5 cm cubed Method ======== Voluson E10, Transabdominal ultrasound examination. View: Limited by maternal habitus. Impression [id number] Obstetrical ultrasound with and maternal evaluation This is a patel gestation. Biometry is consistent with menstrual dating. Anatomy appears normal as noted above; however, ultrasound cannot detect all anomalies. There is trunk and extremity movement noted. The amniotic fluid volume appears normal. Follow-up Follow-up as clinically indicated. DATE OF SERVICE: 03/19/2017 Procedure Note Sophia Franklin MD - 03/19/2017 Indication BMI 37.1; Screening. History ======= General History Height 157 cm Height (ft) 5 ft Height (in) 2 in Previous Outcomes 1 Para 0 Patel children born (T) 0 Patel children born (P) 0 Abortions (A) 0 Patel living children (L) 0 Maternal Assessment Height 157 cm Height (ft) 5 ft Height (in) 2 in Physical Exam Initial weight 92 kg Initial weight (lb) 203 lb Initial BMI 37.13 kg/m? Number of fetuses: 1. Dating ======= Method of dating: based on the LMP LMP on: 10/29/2016 GA by LMP 20 w + 1 d GEOVANI by LMP : 08/05/2017 Ultrasound examination on: 03/19/2017 GA by U/S based upon: AC, BPD, Femur GA by U/S 19 w + 6 d GEOVANI by U/S: 08/07/2017 Previous dating: Dating performed on 12/23/2016 Based on the LMP Assigned GA of previous dating 20 w + 1 d Agreed GEOVANI of previous datin08/05/2017 Assigned: Dating performed on 03/19/2017, based on the LMP Assigned GA 20 w + 1 d Assigned GEOVANI: 08/05/2017 General Evaluation Cardiac activity: Present. FHR 147 bpm. movements: visualized. Presentation: breech. Placenta: posterior. Umbilical cord: Cord vessels: 3 vessel cord. Cord insertion: placental insertion: normal. Amniotic fluid: Amount of AF: normal. 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 wall: normal Cervical spine: normal Thoracic spine: normal Lumbar spine: normal Sacral spine: normal Arms: normal Legs: normal/ Gender: Unreported Wants to know gender: No Maternal Structures Uterus / Cervix Uterus: Appears normal Cervix: Appears normal Ovaries / Tubes / Adnexa Rt ovary: Visualized, normal appearance Rt ovary D1 2.4 cm Rt ovary D2 2.1 cm Rt ovary D3 1.6 cm Rt ovary mean 2.0 cm Rt ovary vol 4.1 cm cubed Lt ovary: Visualized, normal appearance Lt ovary D1 2.6 cm Lt ovary D2 2.1 cm Lt ovary D3 1.9 cm Lt ovary mean 2.2 cm Lt ovary vol 5.5 cm cubed Method ======== Voluson E10, Transabdominal ultrasound examination. View: Limited by maternal habitus. Impression [id number] Obstetrical ultrasound with and maternal evaluation This is a patel gestation. Biometry is consistent with menstrual dating. Anatomy appears normal as noted above; however, ultrasound cannot detect all anomalies. There is trunk and extremity movement noted. The amniotic fluid volume appears normal. Follow-up Follow-up as clinically indicated. DATE OF SERVICE: 03/19/2017 Elieser Noguera Radha DOAN CNKeagan [facility] ORDERABLES documented in this encounter Visit Diagnoses Diagnosis Encounter for supervision of normal first in second trimester- Primary Supervision of normal first PCR DNA positive for HSV1 Special screening examination for other specified viral diseases documented in this encounter Discontinued Medications Medication Sig Discontinue Reason Start Date End Da te valACYclovir (VALTREX) 500 mg tabletIndications:PCR DNA positive for HSV1 TAKE ONE TABLET BY MOUTH EVERY DAY Reorder 01/08/2017 02/19/2017 documented as of this encounter Historical Medications * This list may reflect changes made after this encounter. Medication Sig Dispensed Refills Start Date End Date DOCOSAHEXANOIC ACID/EPA (FISH OIL ORAL) Take by mouth. 09/29/2017 added in this encounter Care Teams Shingle Packer Relationship Specialty Start Date End Date Thea Santamaria MD [address] [place] [phone] PCP - General 11/25/16 05/25/17 documented as of this encounter
--- OUTSIDE RECORDS SUMMARY | 2023-12-04 20:19 | XMS_ITS | Encounter Summary ---
Author Organization [facility] Address [address] [place] [address] Care Team Providers Care Front End Web Designer Name Role Phone Jack Younger MD Primary Care Provider Unavailable Reason for Visit * Reason Comments Rib Injury Encounter Details Date Type Department Care Team (Latest Contact Info) Description 09/16/2015 8:52 EDT - 09/16/2015 10:36 EDT Hospital Encounter [facility] - [facility] [address], [place] [address] Wilmer Dukes PA-C [address] [place] [address] Unknown, Provider, Rib pain on left side (Primary Dx) Discharge Disposition: Home or Self Care Social History Tobacco Use Types Packs/Day Years Used Date Smoking Tobacco: Some Days Cigarettes 0.3 5 Cigars Smokeless Tobacco: Never Alcohol Use Standard Drinks/Week Comments Yes 8 (1 standard drink = 0.6 oz pur e alcohol) Sex and Gender Information Value Date Recorded Sex Assigned at Not on file Gender Identity Female 03/02/2019 11:17 EST Sexual Orientation Not on file documented as of this encounter Last Filed Vital Signs Vital Sign Reading Time Taken Comments Blood Pressure 112/72 09/16/2015 0905 EDT Pulse 60 09/16/2015 0905 EDT Temperature 36.5 ??C (97.7 ??F) 09/16/2015 0905 EDT Respiratory Rate 16 09/16/2015 0905 EDT Oxygen Saturation 99% 09/16/2015 0924 EDT Inhaled Oxygen Concentration - - Weight - - Height - - Body Mass Index - - documented in this encounter Functional Status Functional Status Response Date of Assess ment Because of a physical, menta l, or emotional condition, does this person have difficulty doing errands alone such as visiting a doctor's office or shopping? No 12/26/2014 Cognitive Status Response Date of Assessm ent Because of a physical, menta l, or emotional condition, does this person have serious difficulty concentrating, remembering, or making decisions? No 12/26/2014 documented as of this encounter Discharge Diagnoses Diagnosis R07.81 Pleurodynia-R07.81[ICD-10-CM] documented in this encounter Discharge Instructions * Discharge Instructions* Wilmer Dukes PA - 09/16/2015 10:31 EDT This appears to be chest wall pain, musculoskeletal rib pain more laterally on the left lower ribs.I do not palpate a discrete lump today or lipoma. your exam is benign with the exception of tenderness to palpation in this area or pain in this area with specific movement. you should try a course of Motrin as described for 1 week. 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 Because I do not see or feel any discrete mass on exam today we will not be getting further imaging but you certainly could get an ultrasound if your primary notices area that is discrete and the future. * Attachments The following attachments cannot be sent through Care Everywhere. * CHEST PAIN: MUSCULOSKELETAL (ARABIC) documented in this encounter Medications at Time of Discharge Medication Sig Dispensed Refills Start Date End Date ACETAMINOPHEN (TYLENOL ORAL) Take 650 mg by mouth as needed. 03/19/2017 ALBUTEROL INHL Inhale as directed as needed. Reported on 07/03/2016 05/15/2010 03/19/2017 levothyroxine (SYNTHROID) 175 mcg tabletIndications:Other postablative hypothyroidism Take 1 Tab by mouth daily 90 Tab 3 07/16/2014 12/24/2015 sertraline (ZOLOFT) 25 mg tabletIndications:Dysthymi a Take 1 Tab by mouth daily. 90 Tab 2 07/15/2015 06/02/2016 valACYclovir (VALTREX) 500 mg tabletIndications:PCR DNA positive for HSV1 Take 1 Tab by mouth 2 times daily. 6 Tab 2 07/15/2015 12/23/2015 documented as of this encounter Discharge Disposition Disposition Code Departure Means Destination Home or Self Care documented in this encounter ED Notes * Wilmer Dukes PA - 09/16/2015 0935 EDT Images from the original note were not included. DOS: 09/16/2015 Chief Complaint Patient presents with ??? Rib Injury The patient is a 19 y.o. female who presents today with Rib Injury HPI Comments: Patient is a 19-year-old female who has had a three-month history of nontraumatic left lower rib pain on the anterior and lateral locations. 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 She tells me she was seen by primary care after she had this for a few weeks and they wondered if there was some fullness in the soft tissues and maybe she had a lipoma. She was told to watch and wait and see if anything changed or worsened. She has never had any belly painor fever or systemic issues at all. This is related to movement only. At rest she has no pain at all. She is tender she feels when she directly palpates over the anterior lower ribs on the left only.She had no shortness breath or respiratory symptoms. No changes in bowel or bladder function. She states is not different with his significantly she is still able to do she needs to do. She saidat one point there is suspicion this could be a lipoma, she has not had any workup otherwise. She admits today she really cannot feel any lump that she continues to have pain along the lower ribs. Rib Injury Associated symptoms: no abdominal pain, no back pain, no cough, no dysphagia, no fatigue, no fever,no headache, no nausea, no shortness of breath and not vomiting Review of Systems Constitutional: Negative for fever, chills, appetite change and fatigue. HENT: Negative for congestion, mouth sores, rhinorrhea and trouble swallowing. Eyes: Negative for visual disturbance. Respiratory: Negative for cough, shortness of breath, wheezing and stridor. Cardiovascular: Negative for chest pain. Chest wall pain only Gastrointestinal: Negative for nausea, vomiting and abdominal pain. Genitourinary: Negative for dysuria and flank pain. Musculoskeletal: Negative for back pain and neck stiffness. Skin: Negative for rash. Mild fullness, no lump noted by pt today Neurological: Negative for headaches. Psychiatric/Behavioral: Negative for confusion. All other systems reviewed and are negative. No current facility-administered medications for this encounter. Current Outpatient Prescriptions Medication Sig Dispense Refill ??? ACETAMINOPHEN (TYLENOL ORAL) Take 650 mg by mouth as needed. ??? ALBUTEROL INHL Inhale as directed as needed. 2 puffs as needed ??? levothyroxine (SYNTHROID) 175 mcg tablet Take 1 Tab by mouth daily 90 Tab 3 ??? sertraline (ZOLOFT) 25 mg tablet Take 1 Tab by mouth daily. 90 Tab 2 ??? valACYclovir (VALTREX) 500 mg tablet Take 1 Tab by mouth 2 times daily. 6 Tab 2 Allergies Allergen Reactions ??? Hydrocodone Nausea And Vomiting ??? Lorabid [Loracarbef] Nausea And Vomiting ??? Vicodin [Hydrocodone-Acetaminophen] Nausea And Vomiting ??? Yeast, Dried Nausea And Vomiting If consumes large amounts will develop N/V Patient Active Problem List Diagnosis Date Noted ??? Status post radioactive iodine thyroid ablation 10/05/2012 For Grave's ??? Graves' disease 12/26/2014 ??? Hypothyroidism, postablative 10/06/2013 ICD10 Update Auto Replacement ??? Depression 10/30/2014 ??? Tobacco dependence 10/30/2014 ??? Closed fracture of nasal bone 03/19/2014 IMO Update Auto Replacement ??? 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 Acanthosis nigricans 03/05/2010 ??? Vitamin D deficiency 03/05/2010 Past Medical History Diagnosis Date ??? Asthma, exercise induced ??? Depression ??? Thyroid disease ??? Mood disorder ??? ADD (attention deficit disorder) History Substance Use Topics ??? Smoking status: Current Some Day Smoker -- 0.25 packs/day for 5 years Types: Cigarettes, Cigars ??? Smokeless tobacco: Never Used ??? Alcohol Use: 4.8 oz/week 1 Standard drinks or equivalent, 7 Glasses of wine per week Family History Problem Relation Age of Onset ??? Hypertension Mother ??? Thyroid Disease Father underactive ??? Diabetes Maternal Grandmother ??? Diabetes Paternal Grandfather ??? High Cholesterol Paternal Grandfather ??? Hypertension Paternal Grandfather ??? Thyroid Disease Other M 2nd cousin- thyroodectomy for ?, MGGM thyroid condition ??? Infertility Neg Hx ??? Heart Attack Under 50 Neg Hx BP 112/72 mmHg Pulse 60 Temp(Src) 97.7 ??F (36.5 ??C) (Tympanic) Resp 16 SpO2 99% Physical Exam Constitutional: She is oriented to person, place, and time. She appears well- developed and well-nourished. No distress. HENT: Head: Normocephalic and atraumatic. Right Ear: External ear normal. Left Ear: External ear normal. Nose: Nose normal. Mouth/Throat: Oropharynx is clear and moist. No oropharyngeal exudate. Eyes: Conjunctivae and EOM are normal. Pupils are equal, round, and reactive to light. Right eye exhibits no discharge. Left eye exhibits no discharge. Neck: Normal range of motion. Neck supple. No tracheal deviation present. Cardiovascular: Normal rate, regular rhythm, normal heart sounds and intact distal pulses. No murmur heard. Pulmonary/Chest: Effort normal and breath sounds normal. No respiratory distress. She has no wheezes. She has no rales. Tenderness along anterior/lateral left lower ribs only. More laterally. No abd tenderness at all, no back pain . NO LUMP palpated, slight fullness of lower rib cage on left compared to right, quite subtle, and pt points to pain more lateral to this, is not location of most tenderness. Abdominal: Soft. She exhibits no mass. There is no tenderness. There is no rebound and no guarding. Musculoskeletal: Normal range of motion. Lymphadenopathy: She has no cervical adenopathy. Neurological: She is alert and oriented to person, place, and time. She has normal strength. No sensory deficit. Skin: Skin is warm and dry. No rash noted. Psychiatric: She has a normal mood and affect. Her behavior is normal. Nursing note and vitals reviewed. Consult orders: None PCP: Jack Younger No results found for this visit on 09/16/15. Radiology orders: RIBS UNILATERAL LEFT PLUS PA CHEST Imaging Results RIBS UNILATERAL LEFT PLUS PA CHEST (Final result) Result time: 09/16/15 10:02:49 Final result Narrative: RIBS UNILATERAL LEFT PLUS PA CHEST 09/16/2015 9:53 AM Signs and Symptoms/Comments: PAIN, pt with 3 month hx of Left lower rib tenderness with ROM. PA chest dual-energy and left RIBS 3 views The lungs are clear. The pleural spaces are clear. There is no pneumothorax. The cardiac mediastinal silhouette is normal. The visualized soft tissues are normal. The spleen is not enlarged. No fracture, specifically no rib fractures identified. No osseous lesions are identified. Preliminary result Narrative: PRELIMINARY REPORT RIBS UNILATERAL LEFT PLUS PA CHEST 09/16/2015 9:53 AM Signs and Symptoms/Comments: PAIN, pt with 3 month hx of Left lower rib tenderness with ROM. PA chest dual-energy and left RIBS 3 views The lungs are clear. The pleural spaces are clear. There is no pneumothorax. The cardiac mediastinal silhouette is normal. The visualized soft tissues are normal. The spleen is not enlarged. No fracture, specifically no rib fractures identified. No osseous lesions are identified. No orders to display Procedures URGENT CARE COURSE A medical screening exam was performed. Reviewed previous FM note on this issue. On my exam, no clear lump or lipoma, perhaps slight fullness on left lower anterior ribs c/t right, subtle, and NOT area of her pain . No abd pain at all. Will get CXR/Ribs left. If normal, can consider US as outpt by PMD. I highly suspect rib pain, chest wall strain. 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 Pt feels perfectly well otherwise, and no pain at rest. Certainly exam seems musculoskelatal. D/W pt Nsaids, conservative treatment if rib/cxr OK. CXR/rib films independantly reviewed and reviewed with radiology, no pathology, no acute findings. reexam of pt demonstrates once again, reproducible pain on ribs with movement only. No mass. I recommend Motrin, 600 mg, 3 times a day for a week. I recommend the patient monitor closely her work and a clothing factory as well as at home for repetitive for changes in activity that may have contributed to some chest wall discomfort in this area. If she or her primary care physician notices a discrete lump, which was not noted today, this could certainly be ultrasounded at that time. The patient will see her primary care in 1-2 weeks after course of NSAIDs. ASSESSMENT AND PLAN Final diagnoses: Rib pain on left side Dr. Rollins was available for supervision. DISPOSITION: Discharged The patient's pain was managed to an adequate level weighing risk vs. benefit of further medications. Upon departure from [facility], the patient's pain was 0 on a zero to ten scale. Condition at departure from the [facility] : stable MDM 09/16/2015 10:32 * Lula Pacheco RN - 09/16/2015 0915 EDT Patient reports left rib pain and swelling starting three months ago and worsening since then. Describes pain as constant, left ribs below breast radiating to left thoracic back,worsening with upper body movement and position changes.Presents with mild ventral left rib swelling. Used ice,and heat with no improvement. Was evaluated by [facility] one month ago with no intervention. Denies specific injury, sob, fever,cough.Works in a clothing factory in [place] requiring frequent moving but minimal heavy lifting. documented in this encounter Plan of Treatment Not on file documented as of this encounter Procedures Procedure Name Priority Date/Time Associated Diagnosis Comments RIBS UNILATERAL LEFT PLUS PA CHEST STAT 09/16/2015 9:53 EDT documented in this encounter Results * RIBS UNILATERAL LEFT PLUS PA CHEST (09/16/2015 9:53 EDT) Anatomical Region Laterality Modality Other 09/16/2015 9:53 EDT 09/16/2015 10:02 EDT Narrative 09/16/2015 10:02 EDT RIBS UNILATERAL LEFT PLUS PA CHEST ??09/16/2015 9:53 AM Signs and Symptoms/Comments: ?? PAIN, pt with 3 month hx of Left lower rib tenderness with ROM. PA chest dual-energy and left RIBS 3 views The lungs are clear. The pleural spaces are clear. There is no pneumothorax. The cardiac mediastinal silhouette is normal. The visualized soft tissues are normal. The spleen is not enlarged. No fracture, specifically no rib fractures identified. No osseous lesions are identified. Procedure Note Oswaldo Carr MD - 09/16/2015 RIBS UNILATERAL LEFT PLUS PA CHEST 09/16/2015 9:53 AM Signs and Symptoms/Comments: PAIN, pt with 3 month hx of Left lower rib tenderness with ROM. PA chest dual-energy and left RIBS 3 views The lungs are clear. The pleural spaces are clear. There is no pneumothorax. The cardiac mediastinal silhouette is normal. The visualized soft tissues are normal. The spleen is not enlarged. No fracture, specifically no rib fractures identified. No osseous lesions are identified. Wilmer Dukes PA-C [facility] NG ORDERABLES documented in this encounter Visit Diagnoses Diagnosis Rib pain on left side- Primary Chest pain, unspecified documented in this encounter Care Teams Front End Web Designer Relationship Specialty Start Date End Date Jack Younger MD PCP - General 09/16/15 09/30/15 documented as of this encounter
--- OUTSIDE RECORDS SUMMARY | 2023-12-04 20:19 | XMS_ITS | Encounter Summary ---
Author Organization [facility] Address [address] [place] [address] Care Team Providers Care Carbonation Equipment Tender Name Role Phone Thea Santamaria MD Primary Care Provider [phone] Reason for Visit * Reason Onset Date Comments Miscarriage 12/09/2016 Encounter Details Date Type Department Care Team (Late st Contact Info) Description 12/09/2016 Telephone [facility] - [facility] [address], [place] [id number] Lamar Logan RN Miscarriage Social History Tobacco Use Types Packs/Day Years [...] visiting a doctor's office or shopping? No 06/01/2016 Cognitive Status Response Date of Assessm ent Because of a physical, menta l, or emotional condition, does this person have serious difficulty concentrating, remembering, or making decisions? No 06/01/2016 documented as of this encounter Miscellaneous Notes * Telephone Encounter - Kaia Cornejo RN - 12/09/2016 8899 EDT ATR [facility] regarding plan for follow up from probable MAB. Message left on VM identified as hers advising her to have HCG drawn on 12/16/16 per . Standing order placed.. Bleeding precautions and contact phone numbers given. * Telephone Encounter - Lamar Logan - 12/09/2016 1506 EDT TC from Tiny requesting blood work for likely missed ab. Was seen in ED this am. Return call to pt, LM with dianetic counselor triage number for return call. documented in this encounter Plan of Treatment Not on file documented as of this encounter Visit Diagnoses Diagnosis Miscarriage- Primary Unspecified spontaneous without mention of complication documented in this encounter Care Teams Carbonation Equipment Tender Relationship Specialty Start Date End Date Thea Santamaria MD [address] [place] [phone] PCP - General 11/25/16 05/25/17 documented as of this encounter
--- OUTSIDE RECORDS SUMMARY | 2023-12-04 20:19 | XMS_ITS | Encounter Summary ---
Author Organization [facility] Address [address] [place] [address] Care Team Providers Care Compliance Officer Name Role Phone Talya Robbins MD Primary Care Provider Maureen Jack Larson MD Primary Care Provider Unavailable Ariana Mcghee MD Primary Care Provider [phone] Reason for Visit * Reason Onset Date Comments Abnormal Lab 06/21/2015 Encounter Details Date Type Department Care Team (Late st Contact Info) Description 06/21/[address] [facility] End[facility]ology - [facility] [address] [place] [address] Lindsey Charles MD PhD [address] [facility] [address] [place] [address] Abnormal Lab Social History Tobacco Use Types Packs/Day Years Used Date Smoking Tobacco: Some Days Cigarettes 2 5 Cigars Smokeless Tobacco: Never Alcohol Use Standard Drinks/Week Comments Yes 0.8 (1 standard drink = 0.6 oz p ure alcohol) Sex and Gender Information Value Date [...] No 12/26/2014 documented as of this encounter Miscellaneous Notes * Telephone Encounter - Chacha Guzman RN - 07/08/2015 0953 EDT Phone call to [facility] ([facility]) Phone call from Gricelda (her mother) EC Tiny was sick, and not feeling good for a week. Her mom states she does not think she was taking her Levothyroxine at that time. She will check with her to see if she is taking the medication now. If she has been taking it consistently every day, and without food she will have repeat TFT's done at [facility]. She will call us within in a week after she goes so we can call and get results. Verbalizes understanding with no barriers. Faxed future lab order. * Telephone Encounter - Chacha Guzman RN - 06/21/2015 1213 EDT Phone call to [facility] ([facility]) * Telephone Encounter - Lindsey Charles MD - 06/21/[address] Nuñez is not available. Pt is supposedly on LT4 at 175 mcg/d. TFTs are very off-TSH 53 with FT4 0.52--this is not likely due to the dose being low--as TSH had been normal on this dose before. More likely that pt ran out of medication or not taking or taking with substance that is interfering with absorption. Nursing will call documented in this encounter Plan of Treatment Not on file documented as of this encounter Visit Diagnoses Not on filedocumented in this encounter Care Teams Compliance Officer Relationship Specialty Start Date End Date Talya Robbins MD PCP - General 01/27/13 09/15/15 Jack Younger MD PCP - General 09/16/15 09/30/15 Ariana Mcghee MD PCP - General 10/01/15 06/17/16 documented as of this encounter
--- OUTSIDE RECORDS SUMMARY | 2023-12-04 20:19 | XMS_ITS | Encounter Summary ---
Author Organization [facility] Address [address] [place] [address] Care Team Providers Care Machine Chain Maker Name Role Phone Jack Younger MD Primary Care Provider Unavailable Reason for Visit * Reason Onset Date Comments Referral Request 09/16/2015 Encounter Details Date Type Department Care Team (Late st Contact Info) Description 09/16/2015 Telephone [facility] Family [address] [address] Jack Younger MD Referral Request Social History Tobacco Use Types Packs/Day Years [...] encounter Miscellaneous Notes * Telephone Encounter - Sophia Olguin - 09/16/2015 1212 EDT TC to pt or pt's mom to relay PCP's response. Pt verbalized understanding with no barriers to learning * Telephone Encounter - Allyson Lee - 09/16/2015 1101 EDT Pt would like a referral for an U/S to have a lump on her side checked, was seen at walk in today and had xray, not broken ribs, pt has appointment on 09/[address] Corcoran, hoping to get U/S prior. documented in this encounter Plan of Treatment Not on file documented as of this encounter Visit Diagnoses Not on filedocumented in this encounter Care Teams Machine Chain Maker Relationship Specialty Start Date End Date Jack Younger MD PCP - General 09/16/15 09/30/15 documented as of this encounter
--- OUTSIDE RECORDS SUMMARY | 2023-12-04 20:19 | XMS_ITS | Encounter Summary ---
Author Organization [facility] Address [address] [place] [address] Care Team Providers Care Sewer Name Role Phone Thea Santamaria MD Primary Care Provider [phone] Encounter Details Date Type Department Care Team (Late st Contact Info) Description 12/16/2016 Phlebotomy Only [facility] [address] [place], [place] [id number] Tempering Machine Operator, Outpatient Miscarriage (Primary Dx) Social History Tobacco Use Types [...] No 06/01/2016 documented as of this encounter Plan of Treatment Not on file documented as of this encounter Procedures Procedure Name Priority Date/Time Associated Diagnosis Comments QUANT BETA HCG, Routine 12/16/2016 15:23 EDT Miscarriage documented in this encounter Results * (ABNORMAL) HCG FOR (12/16/2016 15:23 EDT) Quant Beta HCG, Preg 54,041(H) <5 mIU/ml 12/16/2016 17:46 EDT [facility] Comment: Reference Range: Negative = <5 Indeterminate = 5-25 recommend repeat in 48 hours. Positive = >25 Blood specimen (specimen) BLOOD SPECIMEN / Unknown 12/16/2016 15:23 EDT 12/16/2016 15:39 EDT Braulio Scanlon MD CHEMISTRY & BLOOD GAS ORDERABLES Performing Organization Address City/State/[facility] Co de Phone Number [facility] [address] [place] [phone] documented in this encounter Visit Diagnoses Diagnosis Miscarriage- Primary Unspecified spontaneous without mention of complication documented in this encounter Care Teams Sewer Relationship Specialty Start Date End Date Thea Santamaria MD [address] [place] [phone] PCP - General 11/25/16 05/25/17 documented as of this encounter
--- OUTSIDE RECORDS SUMMARY | 2023-12-04 20:19 | XMS_ITS | Encounter Summary ---
Author Organization [facility] Address [address] [place] [address] Care Team Providers Care Real Estate Office Supervisor Name Role Phone Ariana Mcghee MD Primary Care Provider [phone] Reason for Visit * Reason Onset Date Comments Medications Refill 12/24/2015 Encounter Details Date Type Department Care Team (Late st Contact Info) Description 12/24/[address] [address] Talya Robbins MD Medications Refill Social History Tobacco Use Types Packs/Day Years Used Date Smoking Tobacco: Some Days Cigarettes 0.5 5 Cigars Smokeless Tobacco: Never Alcohol Use [...] encounter Miscellaneous Notes * Telephone Encounter - Dee Ruiz - 12/25/2015 0812 EDTFrom: Tiny Varela Pregent To: Talya Robbins MD Sent: 12/24/2015 20:22 EDT Subject: Medication Renewal Request Original authorizing provider: MD Tiny Owens Pregyonathan would like a refill of the following medications: sertraline (ZOLOFT) 25 mg tablet [Talya Robbins MD] Preferred pharmacy: [id number] - [address] Comment: documented in this encounter Plan of Treatment Not on file documented as of this encounter Visit Diagnoses Diagnosis Dysthymia- Primary Dysthymic disorder documented in this encounter Care Teams Real Estate Office Supervisor Relationship Specialty Start Date End Date Ariana Mcghee MD PCP - General 10/01/15 06/17/16 documented as of this encounter
--- OUTSIDE RECORDS SUMMARY | 2023-12-04 20:19 | XMS_ITS | Encounter Summary ---
Author Organization [facility] Address [address] [place] [address] Care Team Providers Care Maintenance Superintendent Name Role Phone Thea Santamaria MD Primary Care Provider [phone] Reason for Visit * Reason Onset Date Comments Patient Reminder 12/16/2016 Encounter Details Date Type Department Care Team (Late st Contact Info) Description 12/16/2016 Telephone [facility] OBGYN Services - Main [place] [address] [place], [place] [address] Kaia Cornejo, RN [address] [place] [address] Patient Reminder Social History Tobacco Use Types Packs/Day Years [...] Miscellaneous Notes * Telephone Encounter - Kaia Cornejo, RN - 12/16/2016 1011 EDT Message left on VM identified as hers reminding her to have HCG done today documented in this encounter Plan of Treatment Not on file documented as of this encounter Visit Diagnoses Not on filedocumented in this encounter Care Teams Maintenance Superintendent Relationship Specialty Start Date End Date Thea Santamaria MD [address] [place] [phone] PCP - General 11/25/16 05/25/17 documented as of this encounter
--- OUTSIDE RECORDS SUMMARY | 2023-12-04 20:19 | XMS_ITS | Encounter Summary ---
Author Organization [facility] Address [address] [place] [address] Care Team Providers Care Warehouse Incentive Selector Name Role Phone Abel Mcghee MD Primary Care Provider [phone] Encounter Details Date Type Department Care Team (Latest Contact Info) Description 12/09/2015 9:08 EDT - 12/09/2015 23:27 EDT Hospital Encounter [facility] Perioperative Services- [facility] [address] [place], [place] [id number] Ani Hartley MD [address] [place] [phone] Discharge Disposition: Home or Self Care Social [...] Sign Reading Time Taken Comments Blood Pressure 108/64 12/09/2015 0954 EDT Pulse - - Temperature 36.3 ??C (97.3 ??F) 12/09/2015 0940 EDT Respiratory Rate - - Oxygen Saturation 100% 12/09/2015 0954 EDT Inhaled Oxygen Concentration - - Weight [...] as of this encounter Discharge Diagnoses Diagnosis D17.1 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 03/19/2017 ALBUTEROL INHL Inhale as directed as needed. Reported on 07/03/2016 05/15/2010 03/19/2017 levothyroxine (SYNTHROID) 175 mcg tabletIndications:Other postablative hypothyroidism Take 1 Tab by mouth daily 90 Tab 3 07/16/2014 12/24/2015 naproxen (NAPROSYN) 500 mg tabletIndications:Rib pain on left side Take 1 Tab by mouth 2 times daily with breakfast and dinner. 60 Tab 0 10/01/2015 07/03/2016 sertraline (ZOLOFT) 25 mg tabletIndications:Dysthym ia Take 1 Tab by mouth daily. 90 Tab 2 07/15/2015 06/02/2016 valACYclovir (VALTREX) 500 mg tabletIndications:PCR DNA positive for HSV1 Take 1 Tab by mouth 2 times daily. 6 Tab 2 07/15/2015 12/23/2015 documented as of this encounter Discharge Disposition Disposition Code Departure Means Destination Home or Self Care documented in this encounter Procedure Notes * Ani Hartley MD - 12/09/2015 2327 EDT PROCEDURE REPORT SERVICE DATE: 12/09/2015 SURGEON: Ani Hartley MD CIRCUITRY NEGATIVE INSPECTOR:none PREOPERATIVE DIAGNOSIS: A 2 cm anterior chest wall lipoma. POSTOPERATIVE DIAGNOSIS: A 2 cm anterior wall lipoma. PROCEDURE: Excision of anterior chest wall lipoma under local. ANESTHESIA: local NARRATIVE: The patient was consented, wheeled into the operating room, and laid in supine position.A horizontal incision was made along Mirtha lines over the 2 cm, freely movable lipoma on her anterior chest wall. I dissected down to the layer of the lipoma. Using the push technique, I pushed the lipoma out through the incision. I used the Bovie cautery to obtain hemostasis and further my dissection. With hemostasis obtained, I then closed the incision with 3-0 Vicryl followed by 4-0 running Monocryl subcuticular followed by Steri-Strips, 4 x 4 and tape. I injected 10 mL of local into the wound. The patient tolerated the procedure well. All needles, instruments and lap pads were accounted for. I was present for the entire case. The patient was discharged from the procedure room in good condition. Unless otherwise noted, there were no complications, no blood loss, no cultures obtained, no specimens removed, and no drains retained. Ani Hartley MD 09 12 AM / Ani Hartley MD en Confirmation: [id number] Dictation ID: [id number] documented in this encounter Plan of Treatment Not on file documented as of this encounter Procedures Procedure Name Priority Date/Time Associated Diagnosis Comments SURGICAL PATHOLOGY Routine 12/09/2015 11 :55 EDT documented in this encounter Results * SURGICAL PATHOLOGY (12/09/2015 11:55 EDT) Pathology Report: SURGICAL PATHOLOGY REPORT Reports generated via electronic interface contain original data; however they are lacking the format of the original report. Caution should be taken when reading/interpret ing unformatted reports. Name: ? PREGENT, TINY A ? Accession #: ? [id number] ? : ? 1995 (Age: 20) ??F ? Collect Date: ? 12/09/2015 ? Location: ? [facility] ? Receive Date: ? 12/09/2015 ? Provider: ANI HARTLEY MD Copy to: ABEL MCGHEE MD ? Final Pathologic Diagnosis: SOFT TISSUE OF CHEST WALL, LEFT ANTERIOR/LOWER, LIPOMA, EXCISION: - Lipoma. Document reviewed and electronically signed by: MERLIN DORMAN MD Report ??Date: 12/11/2015 12:09 By the signature above, the attending physician certifies that he/she has personally conducted a gross and/or microscopic examination of the described specimens and rendered or confirmed the above diagnosis. Specimen(s) Received: Left anterior/lower chest wall lipoma Clinical History: Left anterior/lower chest wall lipoma Gross Description: ? Received in normal saline labelled with proper patient identification (initials P, K) and left anterior/lower chest wall lipoma is a focally fragmented, otherwise encapsulated soft tissue mass (3.8 x 1.8 x 1.4 cm, 2.63 g). Sections show pale homogeneous lobulated adipose tissue, without areas of induration or mass lesions. Sectioned and entirely submitted in 1-3. IBETH Jackson (ASCP) 12/09/2015 1:05 PM End of Report [facility] 12/09/2015 11:5 5 EDT 12/09/2015 11:55 EDT Ani Hartley MD PATHOLOGY OR DERABLES [facility] [address] [place] [address] documented in this encounter Visit Diagnoses Not on filedocumented in this encounter Care Teams Warehouse Incentive Selector Relationship Specialty Start Date End Date Abel Mcghee MD PCP - General 10/01/15 06/17/16 documented as of this encounter
--- OUTSIDE RECORDS SUMMARY | 2023-12-04 20:19 | XMS_ITS | Encounter Summary ---
Author Organization [facility] Address [address] [place] [address] Care Team Providers Care Medical Practice Assistant Name Role Phone Pawan Roman MD Primary Care Provider Unavail able Reason for Visit * Reason Comments Other Encounter Details Date Type Department Care Team (Late st Contact Info) Description 11/05/[address] [address] Marva Tamayo MD [address] [place] [phone] Other Social History Tobacco Use Types Packs/Day [...] No 06/01/2016 documented as of this encounter Ordered Prescriptions Prescription Sig Dispensed Refills Start Date End Da te valACYclovir (VALTREX) 500 mg tabletIndications:PCR DNA positive for HSV1 TAKE ONE TABLET BY MOUTH EVERY DAY 30 Tab 11/05/2016 01/08/2017 documented in this encounter Miscellaneous Notes * Telephone Encounter - Vinny Root, RN - 11/05/2016 1451 EDT Medication(s) Requested: Valacyclovir 500 mg 30 with 0 refills Pharmacy: [facility] Last Refill Date: 09/16/16 Last Visit Date: 07/03/16 Next Visit Date: Visit date not found Is patient out of medication? Unknown Prescription approved VINNY ROOT RN 11/05/2016 14:52 documented in this encounter Plan of Treatment [...] ONE TABLET BY MOUTH EVERY DAY Reorder 09/16/2016 11/05/2016 documented as of this encounter Care Teams Medical Practice Assistant Relationship Specialty Start Date End Date Pawan Roman MD PCP - General 06/18/16 11/24/16 documented as of this encounter
--- OUTSIDE RECORDS SUMMARY | 2023-12-04 20:19 | XMS_ITS | Encounter Summary ---
Author Organization [facility] Address [address] [place] [address] Care Team Providers Care Sample Tailor Name Role Phone Ariana Mcghee MD Primary Care Provider Encounter Details Date Type Department Care Team (Latest Contact Info) Description 10/09/2015 9:51 EDT - 10/09/2015 23:59 EDT Hospital Encounter [facility] [address] [place] [address] Jayson Conrad MD [address] [place] [phone] Discharge Disposition: Auto Discharge Social History Tobacco [...] Diagnosis R07.81 Pleurodynia-R07.81[ICD-10-CM] documented in this encounter Medications at Time [...] Disposition Code Departure Means Destination Auto Discharge Home documented in this encounter Plan of Treatment Not on file documented as of this encounter Visit Diagnoses Not on filedocumented in this encounter Care Teams Sample Tailor Relationship Specialty Start Date End Date Ariana Mcghee MD PCP - General 10/01/15 06/17/16 documented as of this encounter
--- OUTSIDE RECORDS SUMMARY | 2023-12-04 20:19 | XMS_ITS | Encounter Summary ---
Author Organization [facility] Address [address] [place] [address] Care Team Providers Care Computational Physicist Name Role Phone Thea Santamaria MD Primary Care Provider [phone] Reason for Visit * Reason Comments Vaginal Bleeding Patient complains of increased vaginal bleeding since being seen here last night. Encounter Details Date Type Department Care Team (Late st Contact Info) Description 12/09/2016 8:00 EDT - 12/09/2016 9:05 EDT Emergency [facility] Emergency Department - [address] [id number] Cristofer San MD [address] [facility], Level [address] [place] [phone] Emergency, MD Desiree Spontaneous (Primary Dx) Discharge Disposition: Home or Self [...] Sign Reading Time Taken Comments Blood Pressure 129/69 12/09/2016 0808 EDT Pulse 67 12/09/2016 0808 EDT Temperature 36.7 ??C (98.1 ??F) 12/09/2016 0808 EDT Respiratory Rate 14 12/09/2016 0808 EDT Oxygen Saturation 100% 12/09/2016 0808 EDT Inhaled Oxygen Concentration - - Weight 92.5 kg (204 lb) 12/09/2016 0808 EDT Height - - Body Mass Index 37.31 07/03/2016 1447 EDT documented in this encounter Functional Status [...] No 06/01/2016 documented as of this encounter Discharge Diagnoses Diagnosis O03.9 Complete or unspecified spontaneous without complication-O03.9[ICD-10-CM] 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 * MISCARRIAGE (MONGOLIAN) documented in this encounter Medications at Time of Discharge Medication Sig Dispensed Refills Start Date End Date ACETAMINOPHEN (TYLENOL ORAL) Take 650 mg by mouth as needed. 03/19/2017 albuterol 90 mcg/actuation inhalerIndications:Mild intermittent asthma without complication Inhale 2 Puffs as directed every 4 hours as needed for Wheezing. 1 Inhaler 11 07/03/2016 08/24/2018 ALBUTEROL INHL Inhale as directed as needed. Reported on 07/03/2016 05/15/2010 03/19/2017 levothyroxine (SYNTHROID) 175 mcg tabletIndications:Other postablative hypothyroidism Take 1 Tab by mouth daily. 90 Tab 3 12/25/2015 12/25/2016 omeprazole (PRILOSEC) 40 mg capsuleIndications:Postpr andial vomiting Take 1 Cap by mouth daily. 30 Cap 1 07/03/2016 03/19/2017 valACYclovir (VALTREX) 500 mg tabletIndications:PCR DNA positive for HSV1 TAKE ONE TABLET BY MOUTH EVERY DAY 30 Tab 11/05/2016 01/08/2017 documented as of this encounter Discharge Disposition Disposition Code Departure Means Destination Home or Self Care documented in this encounter ED Notes * Duke Olivarez RN - 12/09/2016 0905 EDT Pt d/c ambulatory with a normal gait and in NAD. Pt d/c with plan to follow up with BEAM BUILDER HELPER. Pt provided with instructions. Resp unlabored. Skin warm and dry. Pt AO. * Duke Olivarez RN - 12/09/2016 0859 EDT Pelvic exam completed by MD with this RN at bedside. Pt tolerated exam well. * Cristofer San MD - 12/09/2016 0816 EDT DOS: 12/09/2016 Chief Complaint Patient presents with ??? Vaginal Bleeding Patient complains of increased vaginal bleeding since being seen here last night. HPI HPI Comments: I, Maurizio Grewal, am scribing for Cristofer San MD while he is personally performing the service. Maurizio Grewal 12/09/2016 8:17 Tiny Cline is a 21 y.o. female with a history of Graves' disease who presents to the ED with increased vaginal bleeding since she was seen here last night for spotting and abdominal pain. She had a positive test at that time. She states that her bleeding is significantly heavier than with her usual period. She states that her LMP ended about 5 weeks ago. She currently has some abdominal pain, though it has improved since yesterday. She had an US last night, which showed no visible fetus. Denies a history of . Denies dizziness or lightheadedness. Social History: Current some day smoker; 0.5 ppd. 2.5 pack-years. The history is provided by the patient and medical records. Vaginal Bleeding Associated symptoms: abdominal pain Associated symptoms: no dizziness Review of Systems Review of Systems Gastrointestinal: Positive for abdominal pain. Genitourinary: Positive for vaginal bleeding. Neurological: Negative for dizziness and light-headedness. All other systems reviewed and are negative. Allergies Allergen Reactions ??? Hydrocodone Nausea And Vomiting ??? Lorabid [Loracarbef] Nausea And Vomiting ??? Vicodin [Hydrocodone-Acetaminophen] Nausea And Vomiting ??? Yeast, Dried Nausea And Vomiting If consumes large amounts will develop N/V Vital Signs Temp: 36.7 ??C (98.1 ??F) Temp src: Temporal Pulse: 67 Resp: 14 SpO2: 100 % BP: 129/69 BP Device: BP Machine Patient Position: Sitting BP Cuff Location: Right arm O2 Device: None (Room air) Physical Exam Constitutional: She is oriented to person, place, and time. She appears well- developed. No distress. HENT: Head: Normocephalic and atraumatic. Eyes: Conjunctivae are normal. Neck: Normal range of motion. Cardiovascular: Normal rate, regular rhythm and normal heart sounds. No murmur heard. Pulmonary/Chest: Effort normal and breath sounds normal. No respiratory distress. She has no wheezes. She has no rales. Abdominal: Soft. There is no tenderness. Genitourinary: Genitourinary Comments: Cervical os was 0.5 cm open with dark clotted blood in vaginal vault. Musculoskeletal: Normal range of motion. Neurological: She is alert and oriented to person, place, and time. Skin: Skin is warm and dry. She is not diaphoretic. Psychiatric: She has a normal mood and affect. Nursing note and vitals reviewed. Relevant Data Procedures ED COURSE A medical screening exam was performed. Patient is a 21 y.o. female who presents to the ED c/o significantly increased vaginal bleeding since seen in the ED last night, at which time she had a positive test. Denies lightheadedness or dizziness. Physical exam is significant for no obvious abdominal tenderness. Pelvic exam showedthe patient's cervical os was 0.5 cm open with dark clotted blood in vaginal vault. VS are WNL. Afebrile. Patient discharged to home with a likely spontaneous . Prior to discharge usual and customary precautions were reviewed with the patient including instructions to follow-up with her PCP. Provided reasons to return to the Emergency Department if bleeding or abdominal pain worsens, or other new concerns arise. ASSESSMENT AND PLAN Final diagnoses: Spontaneous DISPOSITION: Discharged The patient's pain was managed to an adequate level weighing risk vs. benefit of further medications. Upon departure from the Emergency Department, the patient's pain was 2 on a zero to ten scale. Any further pain treatment will be at the discretion of the provider following up with the patient based on their clinical assessment. Condition at departure from the Emergency Department: Good PCP: Thea Santamaria [facility] Number of Diagnoses or Management Options Spontaneous : Diagnosis management comments: This is a 21 yr old female with no relevant PMH who found out she was last night. This morning she awoke with a large amount of bleeding. Pt had an US and a HCG drawn last night which showed she was with no visible fetus. This presentation suggest a miscarriage and a pelvic exam here had a 1 cm dilated cervix. Will DC with OB FU. This documentation is recorded by Maurizio Grewal acting as Scribe under the direction and presence ofCristofer San MD. Cristofer San MD: I personally performed the services recorded by the scribe in my presence. I confirm the scribe's documentation has been reviewed by me to accurately and completely record my work, treatment, procedures, and medical decision making. 12/09/2016 8:16 No flowsheet data found. documented in this encounter Plan of Treatment Not on file documented as of this encounter Visit Diagnoses Diagnosis Spontaneous - Primary Unspecified spontaneous without mention of complication documented in this encounter Care Teams Computational Physicist Relationship Specialty Start Date End Date Thea Santamaria MD [address] [place] [phone] PCP - General 11/25/16 05/25/17 documented as of this encounter
--- OUTSIDE RECORDS SUMMARY | 2023-12-04 20:19 | XMS_ITS | Encounter Summary ---
Author Organization [facility] Address [address] [place] [address] Care Team Providers Care Clutch Inspector Name Role Phone Pawan Roman MD Primary Care Provider Unavail able Reason for Visit * Reason Onset Date Comments Vaginitis 10/15/2016 Encounter Details Date Type Department Care Team (Late st Contact Info) Description 10/15/[address] [address] Andreia Olivares LPN Vaginitis Social History Tobacco Use Types Packs/Day Years [...] Telephone Encounter - Andreia Olivares LPN - 10/22/2016 2083 EDT No return calls No f/u scheduled * Telephone Encounter - Andreia Olivares LPN - 10/15/2016 1136 EDT Patient was seen @ [facility] on 10/12/16 with c/o urinary symptoms. Urine negative for infection however patient found to have vaginitis and a yeast infection. Treated with diflucan Left message to contact office to see if she needs a f/u visit documented in this encounter Plan of Treatment Not on file documented as of this encounter Visit Diagnoses Not on filedocumented in this encounter Care Teams Clutch Inspector Relationship Specialty Start Date End Date Pawan Roman MD PCP - General 06/18/16 11/24/16 documented as of this encounter
--- OUTSIDE RECORDS SUMMARY | 2023-12-04 20:19 | XMS_ITS | Encounter Summary ---
Author Organization [facility] Address [address] [place] [address] Care Team Providers Care Ring Facer Name Role Phone Ariana Mcghee MD Primary Care Provider [phone] Encounter Details Date Type Department Care Team (Late st Contact Info) Description 03/19/2016 Phlebotomy Only [facility] [address] [place] [address] [employer] Executive, Outpatient Graves' disease; Hypothyroidism, postablative Social History [...] visiting a doctor's office or shopping? No 03/12/2016 Cognitive Status Response Date of Assessm ent Because of a physical, menta l, or emotional condition, does this person have serious difficulty concentrating, remembering, or making decisions? No 03/12/2016 documented as of this encounter Plan of Treatment Not on file documented as of this encounter Procedures Procedure Name Priority Date/Time Associated Diagnosis Comments TSH Routine 03/19/2016 11:52 EST Graves' disease Hypothyroidism, postablative T4 FREE Routine 03/19/2016 11:52 EST Graves' disease Hypothyroidism, postablative documented in this encounter Results * T4 FREE (03/19/2016 11:52 EST) Free T4 1.7 0.8 - 1.8 ng/dl 03/19/2016 14:19 EST [facility] Blood specimen (specimen) BLOOD SPECIMEN / Unknown 03/19/2016 11:52 EST 03/19/2016 13:31 EST Carlos Nuñez DO CHEMISTRY & BL OOD GAS ORDERABLES Performing Organization Address [facility] Co de Phone Number [facility] [address] [place] [address] * TSH (03/19/2016 11:52 EST) TSH 1.52 0.55 - 4.78 uIU/ml 03/19/2016 14:20 EST [facility] Blood specimen (specimen) BLOOD SPECIMEN / Unknown 03/19/2016 11:52 EST 03/19/2016 13:31 EST Carlos Nuñez DO CHEMISTRY & BL OOD GAS ORDERABLES Performing Organization Address [facility] Co de Phone Number [facility] [address] [place] [address] documented in this encounter Visit Diagnoses Diagnosis Graves' disease Toxic diffuse goiter without mention of thyrotoxic crisis or storm Hypothyroidism, postablative Other postablative hypothyroidism documented in this encounter Care Teams Ring Facer Relationship Specialty Start Date End Date Ariana Mcghee MD PCP - General 10/01/15 06/17/16 documented as of this encounter
--- OUTSIDE RECORDS SUMMARY | 2023-12-04 20:19 | XMS_ITS | Encounter Summary ---
Author Organization [facility] Address [address] [place] [address] Care Team Providers Care Handy Man Name Role Phone Talya Robbins MD Primary Care Provider Maureen vailable Reason for Visit * Reason Onset Date Comments Medications Refill 12/31/2014 Encounter Details Date Type Department Care Team (Late st Contact Info) Description 12/31/2014 Refill [facility] [address] [place] [address] Ariel Soto MD MSc Medications Refill Social History Tobacco Use Types Packs/Day Years Used Date Smoking Tobacco: Every Day Cigarettes 2 5 Started: 01/29/2006; Last attempted to quit: 01/29/2011 Cigars Smokeless Tobacco: Never Alcohol Use Standard [...] Miscellaneous Notes * Telephone Encounter - Jolene Bang, RN - 12/31/2014 1153 EST PCP refilling medication documented in this encounter Plan of Treatment Not on file documented as of this encounter Visit Diagnoses Not on filedocumented in this encounter Care Teams Handy Man Relationship Specialty Start Date End Date Talya Robbins MD PCP - General 01/27/13 09/15/15 documented as of this encounter
--- OUTSIDE RECORDS SUMMARY | 2023-12-04 20:19 | XMS_ITS | Encounter Summary ---
Author Organization [facility] Address [address] [place] [address] Care Team Providers Care Fur Designer Name Role Phone Ariana Mcghee MD Primary Care Provider [phone] Reason for Referral * Consult (Routine) - Closed Specialty Diagnoses / Procedures Referred By Contac t Referred To Contact General Surgery Diagnoses Lipoma of torso Ranjeet, Bere Leiva MD [address] [place] [address] [facility] [address] [place] [address] Referral ID Status Reason Start Date Expiration Date V isits Requested Visits Authorized [id number] Closed Specialty Services Required 03/12/2016 1 1 Question Answer Reason for Request: Pt had been seen by Dr Pimentel. Request removal of lipoma over anterior chest on left, please. Thanks * PT/OT/ST (Routine) - Closed Specialty Diagnoses / Procedures Referred By Contxiomara t Referred To Contact Rehab Therapies Diagnoses Left axillary pain Bere Pollack MD [address] [place] [address] [facility] [address] [place] [address] Referral ID Status Reason Start Date Expiration Date V isits Requested Visits Authorized [id number] Closed Specialty Services Required 03/12/2016 1 1 Question Answer Reason for Request: Left side pain. Seems likely to be from irritation of intercostal muscles or costal-chondritiIn past other providers have attributed pain to lipoma over anterior chest wall. I think this is less likely. Think she would benefit from stretches mostly Reason for Visit * Reason Comments Lipoma Left sided rib area lipoma. Would like to have it removed. Encounter Details Date Type Department Care Team (Late st Contact Info) Description 03/12/2016 16:45 EST Office Visit [address] [phone] Unknown, Provider, Inderjit Vogel MD [address] [place] [phone] Left axillary pain (Primary Dx); Lipoma of torso Social History Tobacco Use Types Packs/Day Years [...] Sign Reading Time Taken Comments Blood Pressure 114/74 03/12/2016 1649 EST Pulse 100 03/12/2016 1649 EST Temperature - - Respiratory Rate - - Oxygen Saturation - - Inhaled Oxygen Concentration - - Weight 90.7 kg (200 lb) 03/12/2016 1649 EST Height 158.8 cm (5' 2.5) 03/12/2016 1649 EST Body Mass Index 36 03/12/2016 1649 EST documented in this encounter Functional Status [...] No 03/12/2016 documented as of this encounter Patient Instructions * Patient Instructions* Inderjit Vogel - 03/12/2016 16:45 EST Images from the original note were not included. Fine to go back to surgeons In the meantime think good idea to try a few other approach ( surprised if this pain was only from lipoma) Would recommend taking Meloxicam 15 mg daily ( about at same time every day, take with food, do nottake with medicines like ibuprofen or naproxen other NSAIDs) for at least a 2 week period Also would recommend movement therapy like stretching (above) and strengthening. Have put in referral for PT to help guide you in this process. documented in this encounter Ordered Prescriptions Prescription Sig Dispensed Refills Start Date End Da te meloxicam (MOBIC) 15 mg tabletIndications:Left axillary pain Take 1 Tab by mouth daily. 30 Tab 1 03/12/2016 07/03/2016 documented in this encounter Progress Notes * Heriberto Fine - 03/12/2016 1645 EST Patient Education Topic:Patient was asked if they desired a welding machine operator submerged arc with the sensitive exam and declined today. Heriberto Fine 03/12/2016 16:52 * Inderjit Vogel - 03/12/2016 1645 EST Images from the original note were not included. Subjective: Patient ID: Tiny Varela Pregent is an 20 y.o. female. Chief Complaint Patient presents with ??? Lipoma Left sided rib area lipoma. Would like to have it removed. HPI Pt comes to clinic w persistence of left side pain which radiated along ribs to left-side of back. She is s/p removal of lipoma over left anterior chest wall. In past had been told that pain was likely related to this. However, there were actually 2 lipomas in this area and only one was removed. She would like the other removed as well. Pain is worse with certain movements. Will notice when she is standing, arms outstretched, push clothes on a rack. Pain is aching and sometimes sharp. Not associated w nausea, eating, change in bowels. No change in skin or rash overlying area. Patient Active Problem List Diagnosis ??? Acanthosis nigricans ??? Vitamin D deficiency ??? Status post radioactive iodine thyroid ablation ??? PCR DNA positive for HSV1 ??? Hypothyroidism, postablative ??? Closed fracture of nasal bone ??? Depression ??? Tobacco dependence ??? Graves' disease Past Medical History Diagnosis Date ??? ADD (attention deficit disorder) ??? Asthma, exercise induced ??? Depression ??? Mood disorder ??? Thyroid disease Current Outpatient Prescriptions on File Prior to Visit Medication Sig Dispense Refill ??? ACETAMINOPHEN (TYLENOL ORAL) Take 650 mg by mouth as needed. ??? ALBUTEROL INHL Inhale as directed as needed. 2 puffs as needed ??? levothyroxine (SYNTHROID) 175 mcg tablet Take 1 Tab by mouth daily. 90 Tab 3 ??? naproxen (NAPROSYN) 500 mg tablet Take 1 Tab by mouth 2 times daily with breakfast and dinner. 60 Tab 0 ??? sertraline (ZOLOFT) 25 mg tablet Take 1 Tab by mouth daily. (Patient not taking: Reported on 11/14/2015) 90 Tab 2 ??? valACYclovir (VALTREX) 500 mg tablet Take 1 Tab by mouth 2 times daily. 6 Tab 2 No current facility-administered medications on file prior to visit. Allergies Allergen Reactions ??? Hydrocodone Nausea And Vomiting ??? Lorabid [Loracarbef] Nausea And Vomiting ??? Vicodin [Hydrocodone-Acetaminophen] Nausea And Vomiting ??? Yeast, Dried Nausea And Vomiting If consumes large amounts will develop N/V Social Social History Substance Use Topics ??? Smoking status: Current Some Day Smoker Packs/day: 0.50 Years: 5.00 Types: Cigarettes ??? Smokeless tobacco: Never Used ??? Alcohol use 4.8 oz/week 7 Glasses of wine, 1 Standard drinks or equivalent per week Review of Systems Constitutional: Negative for malaise/fatigue and weight loss. Respiratory: Negative for shortness of breath. Cardiovascular: Negative for chest pain and palpitations. Gastrointestinal: Positive for abdominal pain. Negative for blood in stool, constipation, diarrhea,melena and nausea. Genitourinary: Positive for flank pain. Musculoskeletal: Positive for back pain and myalgias. Neurological: Negative for sensory change. Psychiatric/Behavioral: The patient is nervous/anxious. - See HPI Objective: Visit Vitals ??? BP 114/74 (BP Cuff Location: Right arm, Patient Position: Sitting) ??? Pulse 100 ??? Ht 158.8 cm (62.5) ??? Wt 90.7 kg (200 lb) ??? BMI 36 kg/m2 Physical Exam Constitutional: She appears well-developed and well-nourished. No distress. Markedly obese HENT: Mouth/Throat: Mucous membranes are moist. Eyes: Conjunctivae and EOM are normal. Cardiovascular: Normal rate and regular rhythm. No murmur heard. Pulmonary/Chest: Effort normal and breath sounds normal. Abdominal: Obese. Non-distended. There is a well healed scar over lower left ribs anteriorly. Active sounds. There is a firm mobile mass adjacent to anterior costal margin on the left. Non-tender to palpation. Ab is non-tender to palpation. Not able to palpate spleen tip Neurological: She is alert. Skin: Skin is warm. No rash noted. Psychiatric: She has a normal mood and affect. Assessment: Pt is a 20 yo female w history of Graves Disease, depression, obesity (BMI of 36) lipoma and chronic left-side pain over lower rib cage. By previous providers it had been suggested that pain related to lipomas which overlay left-side of anterior rib cage. She is s/p 'ectomy of 1 and there is still 1 remaining of what appears to be lipoma on exam. She would like to have this removed. Think this isfine to do but I am not convince that pain is related to lipoma. Think more likely to be MSK in nature and exacerbated by deconditioning which is making her more prone to strain injuries. Plan: Left axillary pain - meloxicam (MOBIC) 15 mg tablet; Take 1 Tab by mouth daily. - Amb Consult/Follow Up Physical Therapy Lipoma of torso - Amb Consult/Follow Up General Surgery Pt Instructions Fine to go back to surgeons In the meantime think good idea to try a few other approach ( surprised if this pain was only from lipoma) Would recommend taking Meloxicam 15 mg daily ( about at same time every day, take with food, do nottake with medicines like ibuprofen or naproxen other NSAIDs) for at least a 2 week period Also would recommend movement therapy like stretching (above) and strengthening. Have put in referral for PT to help guide you in this process Return as needed Pt discussed w Dr Rosalinda Vogel MD 03/16/2016 9:30 * Bere Pollack MD - 03/12/2016 1645 EST Attestation statement: I discussed the patient with the resident/fellow at the time of the visit and agree with the findings and plan of care. Bere Pollack MD 03/16/2016 9:53 documented in this encounter Plan of Treatment Scheduled Referrals Name Type Priority Associated Diagnoses Orde r Schedule AMB CONS/FOLLOW UP PHYSICAL THERAPY Outpatient Referral Routine Left axillary pain Ordered: 03/12/2016 AMB CONS/FOLLOW UP GENERAL SURGERY Outpatient Referral Routine Lipoma of torso Ordered: 03/12/2016 documented as of this encounter Visit Diagnoses Diagnosis Left axillary pain- Primary Pain in limb Lipoma of torso documented in this encounter Care Teams Fur Designer Relationship Specialty Start Date End Date Ariana Mcghee MD PCP - General 10/01/15 06/17/16 documented as of this encounter
--- OUTSIDE RECORDS SUMMARY | 2023-12-04 20:19 | XMS_ITS | Encounter Summary ---
Author Organization [facility] Address [address] [place] [address] Care Team Providers Care Marketing Services Vice President Name Role Phone Ariana Mcghee MD Primary Care Provider [phone] Encounter Details Date Type Department Care Team (Late st Contact Info) Description 06/01/2016 Results Only [facility] [address] [phone] Clemencia Cooley MD [address] [place] [phone] Social History Tobacco Use Types Packs/Day Years [...] Name Priority Date/Time Associated Diagnosis Comments UA REFLEX Routine 06/01/2016 15:41 EDT documented in this encounter Results * UA REFLEX (06/01/2016 15:41 EDT) UA Billing Microscopic not indicated. 06/01/2016 20:36 EDT [facility] URINE / Unknown 06/01/2016 1 5:41 EDT 06/01/2016 19:59 EDT Clemencia Cooley MD URINALYSIS ORDERA JULES [facility] [address] [place] [address] documented in this encounter Visit Diagnoses Not on filedocumented in this encounter Care Teams Marketing Services Vice President Relationship Specialty Start Date End Date Ariana Mcghee MD PCP - General 10/01/15 06/17/16 documented as of this encounter
--- OUTSIDE RECORDS SUMMARY | 2023-12-04 20:19 | XMS_ITS | Encounter Summary ---
Author Organization [facility] Address [address] [place] [address] Care Team Providers Care Refrigeration Systems Installer Name Role Phone Thea Santamaria MD Primary Care Provider [phone] Reason for Visit * Reason Comments Abdominal Pain Reports period being seven days late, and then started bleeding yesterday but it was not normal, describes it is less than usual and dark brown in color. Reports chance of . LLQ cramping Encounter Details Date Type Department Care Team (Late st Contact Info) Description 12/08/2016 15:50 EDT - 12/08/2016 21:25 EDT Emergency [facility] Emergency Department - [address] [id number] Stefano Braxton PA-C [address] [place] [address] Andrew Pierson PA-C [address] [facility], [address] [place] [phone] Emergency, MD Desiree Intrauterine (Primary Dx) Discharge Disposition: Home or Self [...] Sign Reading Time Taken Comments Blood Pressure 132/78 12/08/20162118 EDT Pulse 72 12/08/20162118 EDT Temperature 36.6 ??C (97.9 ??F) 12/08/2016 1554 EDT Respiratory Rate 20 12/08/20162118 EDT Oxygen Saturation 100% 12/08/20162118 EDT Inhaled Oxygen Concentration - - Weight [...] as of this encounter Discharge Diagnoses Diagnosis R10.9 Unspecified abdominal pain-R10.9[ICD-10-CM] Z32.01 Encounter for test, result positive-Z32.01[ICD-10-CM] Z88.5 Allergy status to narcotic agent status-Z88.5[ICD-10-CM] F17.210 Nicotine dependence, cigarettes, uncomplicated-F17.210[ICD-10-CM] documented in this encounter Discharge Instructions * Discharge Instructions* Andrew Pierson PA - 12/08/2016 21:15 EDT Your testing reveals an intrauterine Sometimes a small amount of bleeding can occur Please follow up with your SALES SYSTEMS ENGINEER, call tomorrow Drink plenty of fluids vitamin Return here if you have severe pain, vomiting, severe bleeding * Attachments The following attachments cannot be sent through Care Everywhere. * : NUTRITION (PORTUGUESE) * : GENERAL INFO (PORTUGUESE) documented in this encounter Medications at Time [...] documented in this encounter ED Notes * Andrew Pierson PA - 12/08/20162110 EDT Care assumed pending ultrasound. Patient had a positive UPT. Rh+. Ultrasound shows intrauterine . Patient appears well on recheck. Informed of findings. She has an SALES SYSTEMS ENGINEER, encouraged to calltomorrow and to discuss with her PCP, as well as family members as needed. Given return precautionsincluding increasing pain or bleeding. * Anna Marie Root RN - 12/08/2016 193 EDT Blood drawn via butterfly needle per protocol, red and pink tube(s) sent to lab per order. * Stefano Braxton PA - 12/08/20161917 EDT DOS: 12/08/2016 Chief Complaint Patient presents with ??? Abdominal Pain Reports period being seven days late, and then started bleeding yesterday but it was not normal, describes it is less than usual and dark brown in color. Reports chance of . LLQ cramping HPI The patient is a 21 y.o. female who presents today with Abdominal Pain (Reports period being seven days late, and then started bleeding yesterday but it was not normal, describes it is less than usual and dark brown in color. Reports chance of . LLQ cramping) HPI Comments: Chief complaint of pelvic pain. Patient has been slightly nauseous for the last couple of weeks with occasional vomiting. Over the last 2 weeks she has also had some vague abdominal discomfort, which has become worse over the last 3 days, left more than right. Yesterday she started having some light brown spotting which persists until today. Patient denies dysuria, gross hematuria, fever or chills, change in bowel movements. Patient has a history of ovarian cysts, but no previous abdominal surgeries or pregnancies. Last normal menstrual period was about 5 weeks ago. , no control. The history is provided by the patient. Abdominal Pain Associated symptoms: vaginal bleeding Associated symptoms: no chest pain, no chills, no dysuria, no fever, no shortness of breath and no sore throat Review of Systems Review of Systems Constitutional: Negative. Negative for chills and fever. HENT: Negative. Negative for congestion, sore throat and trouble swallowing. Eyes: Negative. Negative for visual disturbance. Respiratory: Negative. Negative for chest tightness and shortness of breath. Cardiovascular: Negative. Negative for chest pain, palpitations and leg swelling. Gastrointestinal: Positive for abdominal pain. Negative for abdominal distention. Endocrine: Negative. Genitourinary: Positive for pelvic pain and vaginal bleeding. Negative for dysuria and frequency. Musculoskeletal: Negative. Negative for arthralgias. Skin: Negative. Negative for rash. Allergic/Immunologic: Negative. Negative for immunocompromised state. Neurological: Negative. Negative for dizziness and headaches. Hematological: Negative. Negative for adenopathy. Does not bruise/bleed easily. Psychiatric/Behavioral: Negative. Negative for confusion. All other systems reviewed and are negative. The patient's past medical, family and social history was reviewed and updated as needed. Allergies Allergen Reactions ??? Hydrocodone Nausea And Vomiting ??? Lorabid [Loracarbef] Nausea And Vomiting ??? Vicodin [Hydrocodone-Acetaminophen] Nausea And Vomiting ??? Yeast, Dried Nausea And Vomiting If consumes large amounts will develop N/V Vital Signs Temp: 36.6 ??C (97.9 ??F) Temp src: Temporal Pulse: 72 Resp: 20 SpO2: 100 % BP: 132/78 BP MAP: 89 mm Hg Physical Exam Constitutional: She is oriented to person, place, and time. She appears well- developed and well-nourished. No distress. HENT: Head: Normocephalic. Eyes: Conjunctivae and EOM are normal. Pupils are equal, round, and reactive to light. Cardiovascular: Normal rate. Pulmonary/Chest: Effort normal. Abdominal: Soft. She exhibits no distension and no mass. There is tenderness (mild suprapubic, moderate left pelvic t tenderness). There is no rebound and no guarding. Neurological: She is alert and oriented to person, place, and time. Skin: Skin is warm and dry. Psychiatric: She has a normal mood and affect. Her behavior is normal. Judgment and thought contentnormal. Nursing note and vitals reviewed. RESULTS EKG orders: None ED Lab Results Labs Reviewed HCG FOR - Abnormal Result Value Status HCG 44720 (*) Final POCT URINE DIPSTICK - Abnormal Bilirubin 1+ (*) Final Blood 3+ (*) Final Protein 1+ (*) Final Leuk Esterase Trace (*) Final Color YELLOW Final Clarity, UA Clear Final Glucose Neg Final Ketones Neg Final Specific Henderson 1.020 Final pH 6.5 Final Urobilinogen 0.2 Final Nitrite Neg Final Tech ID [id number] Final POCT TEST, CLINITEK - Abnormal UPT Result Pos (*) Final Tech ID [id number] Final ABO/RH ABO O Final Rh Factor Positive Final Relevant Data Procedures ED COURSE A medical screening exam was performed. On exam, patient looks mildly uncomfortable with normal vital signs. She has some mild to moderate left-sided pelvic tenderness and a positive UPT. Serum hCG and pelvic ultrasound pending at the end of my shift. ASSESSMENT AND PLAN Final diagnoses: Intrauterine DISPOSITION: Discharged The patient's pain was managed to an adequate level weighing risk vs. benefit of further medications. Upon departure from the Emergency Department, the patient's pain was 1 on a zero to ten scale. Any further pain treatment will be at the discretion of the provider following up with the patient based on their clinical assessment. Condition at departure from the Emergency Department: Stable PCP: Thea Santamaria [facility] Number of Diagnoses or Management Options Diagnosis management comments: 4 Amount and/or Complexity of Data Reviewed Clinical lab tests: ordered and reviewed Tests in the radiology section of CPT??: ordered and reviewed Review and summarize past medical records: yes Discuss the patient with other providers: yes (long) Jack Rios 12/15/2016 15:26 No flowsheet data found. documented in this encounter Plan of Treatment Not on file documented as of this encounter Procedures Procedure Name Priority Date/Time Associated Diagnosis Comments RAD US OB LESS THAN 14 WKS TRANSVAGINAL & LMT DOPPLER STAT 12/08/2016 20:15 EDT QUANT BETA HCG, STAT 12/08/2016 19:25 EDT ABO/RH STAT 12/08/2016 19:14 EDT POCT TEST, CLINITEK Routine 12/08/2016 16:05 EDT POCT URINE DIPSTICK, CLINITEK Routine 12/08/2016 16:03 EDT documented in this encounter Results * RAD US OB LESS THAN 14 WKS TRANSVAGINAL & LMT DOPPLER (12/08/2016 20:15 EDT) Anatomical Region Laterality Modality Other 12/08/2016 20:1 5 EDT 12/09/2016 8:44 EDT Narrative 12/09/2016 8:44 EDT RAD US OB LESS THAN 14 WKS TRANSVAGINAL ?? 12/08/2016 8:15 PM Signs and Symptoms/Comments: ?? Pelvic Pain, menstrual period 1 week late, spotting, one week of cramping. Technique: Grayscale, color Doppler, and cine ultrasound images of the pelvis were performed both transabdominally and transvaginally. Comparison: None relevant. Findings: Maternal structures: Right ovary: Measures 4.2 x 2.9 x 3.2 cm demonstrating normal arterial and venous waveforms. A corpus luteum is present. Left ovary: Measures 4.0 x 3.0 x 1.9 cm demonstrating normal arterial and venous waveforms. Free fluid: There is a small amount of free fluid in the cul-de-sac. Uterus: Anteverted measuring 9.5 x 3.9 x 5.6. Gestational sac within uterus: Early gestational sac is present, measuring 10 x 8 x 8 mm. Yolk sac: Present measuring 2 mm. Biometry/measurements: LMP: 10/29/2016, corresponding to 5 weeks 5 days. Prior ultrasound dating: None. Mean sac diameter: 8 mm. [place]-rump length: Not measurable at this stage. Impression: Early intrauterine . Recommend follow-up as per obstetrics recommendations. Trace of free fluid in the pelvis. I have personally reviewed the images and the above interpretation and agree with the findings. Procedure Note Griselda Menchaca MD - 12/09/2016 RAD US OB LESS THAN 14 WKS TRANSVAGINAL 12/08/2016 8:15 PM Signs and Symptoms/Comments: Pelvic Pain, menstrual period 1 week late, spotting, one week of cramping. Technique: Grayscale, color Doppler, and cine ultrasound images of the pelvis were performed both transabdominally and transvaginally. Comparison: None relevant. Findings: Maternal structures: Right ovary: Measures 4.2 x 2.9 x 3.2 cm demonstrating normal arterial and venous waveforms. A corpus luteum is present. Left ovary: Measures 4.0 x 3.0 x 1.9 cm demonstrating normal arterial and venous waveforms. Free fluid: There is a small amount of free fluid in the cul-de-sac. Uterus: Anteverted measuring 9.5 x 3.9 x 5.6. Gestational sac within uterus: Early gestational sac is present, measuring 10 x 8 x 8 mm. Yolk sac: Present measuring 2 mm. Biometry/measurements: LMP: 10/29/2016, corresponding to 5 weeks 5 days. Prior ultrasound dating: None. Mean sac diameter: 8 mm. [place]-rump length: Not measurable at this stage. Impression: Early intrauterine . Recommend follow-up as per obstetrics recommendations. Trace of free fluid in the pelvis. I have personally reviewed the images and the above interpretation and agree with the findings. Stefano Braxton PA-C [facility] US ORDERABLES * (ABNORMAL) HCG FOR (12/08/2016 19:25 EDT) Quant Beta HCG, Preg 11,960(H) <5 mIU/ml 12/08/2016 20:13 EDT [facility] Comment: Reference Range: Negative = <5 Indeterminate = 5-25 recommend repeat in 48 hours. Positive = >25 Blood specimen (specimen) BLOOD SPECIMEN / Unknown 12/08/2016 19:25 EDT 12/08/2016 19:35 EDT Stefano Braxton PA-C CHEMISTRY & BLOOD GA S ORDERABLES [facility] [address] [place] [address] * ABO/RH (12/08/2016 19:14 EDT) ABO O [facility] Rh Factor Positive [facility] Blood specimen (specimen) 12/08/2016 19:14 EDT Stefano Braxton PA-C BLOOD BANK TESTS Performing Organization Address City/[facility]/ZIP Co de Phone Number [facility] * (ABNORMAL) POCT TEST, CLINITEK (12/08/2016 16:05 EDT) UPT Result Pos(A) Neg 12/08/2016 16:11 EDT [facility] energy crop farmer ID [id number] 12/08/2016 16:11 EDT [facility] Comment:Test performed at Em [facility]ency Department Urine specimen (specimen) URINE / Unknown 12/08/2016 16:05 EDT 12/08/2016 16:11 EDT Tracey Medina PA-C POINT OF CAR E TEST ORDERABLES Performing Organization Address City/[facility]/ZIP Co de Phone Number [facility] [address] [place] [address] * (ABNORMAL) POCT URINE DIPSTICK (12/08/2016 16:03 EDT) Color YELLOW 12/08/2016 16:09 [facility] Clarity, UA Clear 12/08/2016 16:09 [facility] Glucose Neg Neg 12/08/2016 16:09 [facility] Bilirubin 1+(A) Neg 12/08/2016 16:09 [facility] Ketones Neg Neg 12/08/2016 16:09 [facility] Specific Henderson 1.020 1.001 - 1.035 12/08/2016 16:09 [facility] Blood 3+(A) Neg 12/08/2016 16:09 [facility] pH 6.5 4.6 - 8.0 12/08/2016 16:09 [facility] Protein 1+(A) Neg 12/08/2016 16:09 [facility] Urobilinogen 0.2 0.2 - 1.0 E.U./dl 12/08/2016 16:09 [facility] Nitrite Neg Neg 12/08/2016 16:09 [facility] Leuk Esterase Trace(A) Neg 12/08/2016 16:09 [facility] energy crop farmer ID [id number] 12/08/2016 16:09 [facility] Comment:Test performed at Em [facility] Department Urine specimen (specimen) URINE / Unknown 12/08/2016 16:03 EDT 12/08/2016 16:09 EDT Tracey Medina PA-C POINT OF CAR E TEST ORDERABLES [facility] [address] [place] [address] documented in this encounter Visit Diagnoses Diagnosis Intrauterine - Primary state, incidental documented in this encounter Care Teams Refrigeration Systems Installer Relationship Specialty Start Date End Date Thea Santamaria MD [address] [place] [phone] PCP - General 11/25/16 05/25/17 documented as of this encounter
--- OUTSIDE RECORDS SUMMARY | 2023-12-04 20:19 | XMS_ITS | Encounter Summary ---
Author Organization [facility] Address [address] [place] [address] Care Team Providers Care Credit And Collections Analyst Name Role Phone Thea Santamaria MD Primary Care Provider [phone] Encounter Details Date Type Department Care Team (Late st Contact Info) Description 12/17/2016 Orders Only [facility] O[facility] - [facility] [address] [place] [address] Kaia Cornejo, RN [address] [place] [address] Encounter for supervision of normal first in first trimester (Primary Dx) Social History [...] first documented in this encounter Care Teams Credit And Collections Analyst Relationship Specialty Start Date End Date Thea Santamaria MD [address] [place] [phone] PCP - General 11/25/16 05/25/17 documented as of this encounter
--- OUTSIDE RECORDS SUMMARY | 2023-12-04 20:19 | XMS_ITS | Encounter Summary ---
Author Organization [facility] Address [address] [place] [address] Care Team Providers Care Integrated Logistics Programs Director Name Role Phone Pawan Roman MD Primary Care Provider Unavail able Reason for Visit * Reason Onset Date Comments Results 07/08/2016 Encounter Details Date Type Department Care Team (Late st Contact Info) Description 07/08/[address] [address] Alyssa Mahan MD [address] [place] [address] Results Social History Tobacco Use Types Packs/Day [...] Telephone Encounter - Andreia Olivares LPN - 07/13/2016 1627 EDT Left 3rd message for patient to call back No return calls @ this time Will close encounter and relay information to patient should she call back * Telephone Encounter - Marcy Perez RN - 07/08/2016 1526 EDT LM on pt VM to call office back re: stool studies. * Telephone Encounter - Alyssa Mahan MD - 07/08/2016 1335 EDT Normal stool studies. May start loperamide if desired. I will have office staff call. To office staff: Patient's recent stool studies were negative for bacterial or parasite infection. If she is still having symptoms, we could start a medication (Loperamide) to decrease the diarrhea - I can call this in if desired. I tried to reach her by phone but only left a message. Can you try again? Thanks! Alyssa Mahan MD 07/08/2016 13:35 documented in this encounter Plan of Treatment Not on file documented as of this encounter Visit Diagnoses Not on filedocumented in this encounter Care Teams Integrated Logistics Programs Director Relationship Specialty Start Date End Date Pawan Roman MD PCP - General 06/18/16 11/24/16 documented as of this encounter
--- OUTSIDE RECORDS SUMMARY | 2023-12-04 20:19 | XMS_ITS | Encounter Summary ---
Author Organization [facility] Address [address] [place] [address] Care Team Providers Care Chiseler Head Name Role Phone Thea Santamaria MD Primary Care Provider [phone] Encounter Details Date Type Department Care Team (Late st Contact Info) Description 12/16/2016 9:07 EDT - 12/16/2016 23:59 EDT Hospital Encounter [address] [address] Braulio Scanlon MD [address] [facility], [address] [place] [phone] Discharge Disposition: Home or Self Care Social [...] O03.9 Complete or unspecified spontaneous without complication-O03.9[ICD-10-CM] documented in this encounter Medications at Time [...] Code Departure Means Destination Home or Self Group Home documented in this encounter Plan of Treatment Not on file documented as of this encounter Visit Diagnoses Not on filedocumented in this encounter Care Teams Chiseler Head Relationship Specialty Start Date End Date Thea Santamaria MD [address] [place] [phone] PCP - General 11/25/16 05/25/17 documented as of this encounter
--- OUTSIDE RECORDS SUMMARY | 2023-12-04 20:19 | XMS_ITS | Encounter Summary ---
Author Organization [facility] Address [address] [place] [address] Care Team Providers Care Member Service Representative Name Role Phone Pawan Roman MD Primary Care Provider Unavail able Reason for Visit * Reason Comments Emesis Encounter Details Date Type Department Care Team (Late st Contact Info) Description 07/03/2016 15:00 EDT Office Visit [facility] [address] [address] Unknown, Provider, Alyssa Mahan MD [address] [place], [place] [address] Chronic diarrhea (Primary Dx); Postprandial vomiting; PCR DNA positive for HSV1; Mild intermittent asthma without complication Social History [...] Sign Reading Time Taken Comments Blood Pressure 126/82 07/03/2016 1447 EDT Pulse 88 07/03/2016 1447 EDT Temperature - - Respiratory Rate 22 07/03/2016 1447 EDT Oxygen Saturation - - Inhaled Oxygen Concentration - - Weight 92.1 kg (203 lb) 07/03/2016 1447 EDT Height 157.5 cm (5' 2) 07/03/2016 1447 EDT Body Mass Index 37.13 07/03/2016 1447 EDT documented in this encounter [...] for HSV1 Take 1 Tab by mouth daily. 30 Tab 07/03/2016 09/16/2016 omeprazole (PRILOSEC) 40 mg capsuleIndications:Postp randial vomiting Take 1 Cap by mouth daily. 30 Cap 1 07/03/2016 03/19/2017 albuterol 90 mcg/actuation inhalerIndications:Mild intermittent asthma without complication Inhale 2 Puffs as directed every 4 hours as needed for Wheezing. 1 Inhaler 11 07/03/2016 08/24/2018 documented in this encounter Progress Notes * Alyssa Mahan MD - 07/03/2016 1500 EDT CC: Chronic diarrhea SUBJECTIVE: 20-year-old female following up for chronic diarrhea and postprandial vomiting, unchanged for the last year. Recently had normal abdominal ultrasound and lab workup. Multiple episodes of nonbloody diarrhea per day. Postprandial vomiting with almost any meal, though she has been gaining weight. Can tolerate a few bites at a time. Diet includes chips, mac & cheese, hamburgers etc. has tried Tums but no other antacids.. No fevers. No travel, camping, public pools, exposure to daycare. Request refill Valtrex. She is using it about once a month. Would like to go back on suppressive therapy also needs refills of her albuterol. Uses it rarely, only before exercise. ROS: Denies fevers, chills, chest pain, shortness of breath, abdominal pain, unintentional weight loss, nausea, rash History: Social, family, and personal medical history reviewed and documented in the medical record. Medications: Reviewed and documented in the medical record OBJECTIVE: BP 126/82 Pulse 88 Resp 22 Ht 157.5 cm (62) Wt 92.1 kg (203 lb) BMI 37.13 kg/m2 Gen: well-appearing obese female in NAD Head: NC/AT, JASON, sclera anicteric, conjunctiva pink. MMM, Good dentition Neck: supple, trachea midline CV: no cyanosis or clubbing Pulm: normal work of breathing at rest, speaks in full sentences GI: soft, NTND, no HSM, no guarding or rigidity Ext: well perfused, no peripheral edema, moves easily Skin: Nl color, temperature, and turgor. No scaling, excoriations, or ecchymosis. Neuro: AOx3, cognition grossly intact Studies: Reviewed from May 2016: Normal left upper quadrant ultrasound Normal BMP Normal CBC 04/28/2011: Negative TTG antibody and IgA ASSESSMENT & PLAN by problem: 1. Chronic diarrhea At this point IBS seems likely, particularly as celiac was previously ruled out. We will rule out infection. If this is negative, would try loperamide or Bentyl. - Fecal Bacterial Pathogens by PCR; Future - H. pylori Antigen; Future - C. difficile PCR; Future 2. Postprandial vomiting DDX includes dyspepsia, esophageal disorder, eating disorder. We will try high- dose PPI. If this isunsuccessful, would consider referral to gastroenterology for further workup and possible endoscopy. For now, start BRAT diet. - START: omeprazole (PRILOSEC) 40 mg capsule; Take 1 Cap by mouth daily. Dispense: 30 Cap; Refill: 1 3. 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 - START: valACYclovir (VALTREX) 500 mg tablet; Take 1 Tab by mouth daily. Dispense: 30 Tab; Refill:0 4. Mild intermittent asthma without complication Minimally symptomatic exercise-induced asthma, very well controlled with occasional albuterol use. - Continue: Albuterol as needed prior to exercise Follow up: 2 months if needed Discussed with Dr. Bruno Myers. Christopher Us MD 17:09 07/03/2016 Family Medicine PGY3 [id number] * Bruno Kiran MD - 07/03/2016 1500 EDT Attestation for patient not seen by attending: I discussed the patient with the resident/fellow at the time of the visit and agree with the findings and the plan of care documented in the resident's/fellow's note. Bruno Kiran MD Family Medicine Attending 07/08/2016 23:18 documented in this encounter Plan of Treatment Not on file documented as of this encounter Results * H. PYLORI ANTIGEN (07/07/2016 14:55 EDT) H. pylori Antigen Negative Negative 07/09/2016 15:30 EDT [facility] Comment:Results were obtaine d with the [employer] [place] HpSA Plus FAISAL. Specimen of unknown material (specimen) STOOL SPECIMEN / Unknown 07/07/2016 14:55 EDT 07/07/2016 19:12 EDT Bruno Kiran MD MICROBIOLOGY - GENE RAL ORDERABLES Performing Organization Address City/[facility]/ZIP Co de Phone Number [facility] [address] [place] [phone] * C. DIFFICILE PCR (07/07/2016 14:54 EDT) Pathologist [facility] Result Testing not performed. 07/07/2016 19:12 EDT [facility] Comment: Formed stool specimens have not been approved by the FDA for testing with this methodology. Consult the pathologist to discuss unusual patient situations. Credit Issued Stool specimen (specimen) STOOL SPECIMEN / Unknown 07/07/2016 14:54 EDT 07/07/2016 19:11 EDT Bruno Kiran MD MICROBIOLOGY - GENE RAL ORDERABLES Performing Organization Address City/[facility]/ZIP Co de Phone Number [facility] [address] [place] [address] * FECAL BACTERIAL PATHOGENS BY PCR (07/07/2016 14:54 EDT) Salmonella PCR No Salmonella spp. DNA detected 07/08/2016 11:51 EDT [facility] Shigella No Shigella spp. or Enteroinvasive E.coli DNA detected. 07/08/2016 11:51 EDT [facility] Campylobacter PCR No Campylobacter spp. (jejuni or coli) DNA detected. 07/08/2016 11:51 EDT [facility] Shiga Toxin PCR No Shiga toxin producing genes detected. 07/08/2016 11:51 EDT [facility] STOOL SPECIMEN / Unknown 07/07/2016 14:54 EDT 07/07/2016 19:11 EDT Bruno Kiran MD MICROBIOLOGY - GENE RAL ORDERABLES [facility] [address] [place] [address] documented in this encounter Visit Diagnoses Diagnosis Chronic diarrhea- Primary Diarrhea Postprandial vomiting Vomiting alone PCR DNA positive for HSV1 Special screening examination for other specified viral diseases Mild intermittent asthma without complication Unspecified asthma documented in this encounter Discontinued Medications Medication Sig Discontinue Reason Start Date End Da te naproxen (NAPROSYN) 500 mg tabletIndications:Rib pain on left side Take 1 Tab by mouth 2 times daily with breakfast and dinner. 10/01/2015 07/03/2016 meloxicam (MOBIC) 15 mg tabletIndications:Left axillary pain Take 1 Tab by mouth daily. 03/12/2016 07/03/2016 valACYclovir (VALTREX) 500 mg tabletIndications:PCR DNA positive for HSV1 Take 1 Tab by mouth 2 times daily. 12/23/2015 07/03/2016 documented as of this encounter Care Teams Member Service Representative Relationship Specialty Start Date End Date Pawan Roman MD PCP - General 06/18/16 11/24/16 documented as of this encounter
--- OUTSIDE RECORDS SUMMARY | 2023-12-04 20:19 | XMS_ITS | Encounter Summary ---
Author Organization [facility] Address [address] [place] [address] Care Team Providers Care Analytical Research Chemist Name Role Phone Thea Santamaria MD Primary Care Provider [phone] Reason for Visit * Reason Onset Date Comments Results 12/17/2016 Encounter Details Date Type Department Care Team (Late st Contact Info) Description 12/17/2016 Telephone [facility] OBGYN Services - [facility] [address] [place], [place] [id number] Kaia Cornejo, RN [address] [place] [address] Results Social History Tobacco Use Types Packs/Day [...] Telephone Encounter - Kaia Cornejo, RN - 12/17/2016 1520 EDT Message left on VM identifi as hers advising that HCG daija, and that she needed to call to schedue an ultrasound. documented in this encounter Plan of Treatment Not on file documented as of this encounter Visit Diagnoses Not on filedocumented in this encounter Care Teams Analytical Research Chemist Relationship Specialty Start Date End Date Thea Santamaria MD [address] [place] [address] PCP - General 11/25/16 05/25/17 documented as of this encounter
--- OUTSIDE RECORDS SUMMARY | 2023-12-04 20:19 | XMS_ITS | Encounter Summary ---
Author Organization [facility] Address [address] [place] [address] Care Team Providers Care Trust Administrative Assistant Name Role Phone Ariana Mcghee MD Primary Care Provider [phone] Reason for Visit * Reason Onset Date Comments Medications Refill 12/26/2015 Encounter Details Date Type Department Care Team (Late st Contact Info) Description 12/26/2015 Refill [facility] Endocrinology - [facility] [address] [place], [place] [id number] Carlos Nuñez, [address] [facility] [address] [place] [address] Medications Refill Social History Tobacco [...] No 12/26/2014 documented as of this encounter Plan of Treatment Not on file documented as of this encounter Visit Diagnoses Diagnosis Other postablative hypothyroidism- Primary documented in this encounter Care Teams Trust Administrative Assistant Relationship Specialty Start Date End Date Ariana Mcghee MD PCP - General 10/01/15 06/17/16 documented as of this encounter
--- OUTSIDE RECORDS SUMMARY | 2023-12-04 20:19 | XMS_ITS | Encounter Summary ---
Author Organization [facility] Address [address] [place] [address] Care Team Providers Care Lacing Operator Name Role Phone Pawan Roman MD Primary Care Provider Unavail able Reason for Visit * Reason Comments Other Encounter Details Date Type Department Care Team (Late st Contact Info) Description 09/16/[address] [address] Alyssa Mahan MD [address] [place] [address] Other Social History Tobacco Use Types Packs/Day [...] TABLET BY MOUTH EVERY DAY 30 Tab 09/16/2016 11/05/2016 documented in this encounter Miscellaneous Notes * Telephone Encounter - Carey Root RN - 09/16/2016 0902 EDT Medication(s) Requested: Valacyclovir 500 mg 30 with 0 refills Pharmacy: [facility] Last Refill Date: 07/03/16 Last Visit Date: 07/03/16 Next Visit Date: Visit date not found Is patient out of medication? Unknown Prescription approved CAREY ROOT RN 09/16/2016 9:02 documented in this encounter Plan of Treatment Not on file documented as of this encounter Visit Diagnoses Diagnosis PCR DNA positive for HSV1- Primary Special screening examination for other specified viral diseases documented in this encounter Discontinued Medications Medication Sig Discontinue Reason Start Date End Da te valACYclovir (VALTREX) 500 mg tabletIndications:PCR DNA positive for HSV1 Take 1 Tab by mouth daily. Reorder 07/03/2016 09/16/2016 documented as of this encounter Care Teams Lacing Operator Relationship Specialty Start Date End Date Pawan Roman MD PCP - General 06/18/16 11/24/16 documented as of this encounter
--- OUTSIDE RECORDS SUMMARY | 2023-12-04 20:19 | XMS_ITS | Encounter Summary ---
Author Organization [facility] Address [address] [place] [address] Care Team Providers Care Corporate Administrator Name Role Phone Ariana Mcghee MD Primary Care Provider Reason for Visit * Reason Onset Date Comments Medications Refill 12/23/2015 Encounter Details Date Type Department Care Team (Late st Contact Info) Description 12/23/[address] [address] Talya Robbins MD Medications Refill Social History [...] No 12/26/2014 documented as of this encounter Ordered Prescriptions Prescription Sig Dispensed Refills Start Date End Da te valACYclovir (VALTREX) 500 mg tabletIndications:PCR DNA positive for HSV1 Take 1 Tab by mouth 2 times daily. 6 Tab 2 12/23/2015 07/03/2016 documented in this encounter Miscellaneous Notes * Telephone Encounter - Dee Ruiz - 12/23/2015 0855 EDT VINNY: 07/15/2015 ROV: None Noted Last Valtex RX: 07/15/2015 #6 with 2 refills * Telephone Encounter - Dee Ruiz - 12/23/2015 0850 EDTFrom: Tiny Varela Pregent To: Talya Robbins MD Sent: 12/23/2015 7:20 EDT Subject: Medication Renewal Request Original authorizing provider: MD Tiny Owens Pregyonathan would like a refill of the following medications: valACYclovir (VALTREX) 500 mg tablet [Talya Robbins MD] Preferred pharmacy: [id number] Comment: documented in this encounter Plan [...] 1 Tab by mouth 2 times daily. Reorder 07/15/2015 12/23/2015 documented as of this encounter Care Teams Corporate Administrator Relationship Specialty Start Date End Date Ariana Mcghee MD PCP - General 10/01/15 06/17/16 documented as of this encounter
--- OUTSIDE RECORDS SUMMARY | 2023-12-04 20:19 | XMS_ITS | Encounter Summary ---
Author Organization [facility] Address [address] [place] [address] Care Team Providers Care Flight Test Supervisor Name Role Phone Talya Robbins MD Primary Care Provider Maureen vailable Reason for Visit * Reason Onset Date Comments Results 08/29/2015 Encounter Details Date Type Department Care Team (Late st Contact Info) Description 08/29/2015 Telephone [facility] Endocrinology - [facility] [address] [place] [address] Carlos Nuñez DO [address] [facility] [address] [place] [address] Results Social History Tobacco Use [...] Telephone Encounter - Chacha Guzman RN - 08/30/2015 1612 EDT Phone call to Tiny (talked to mom) Gricelda Patient informed of Dr Nuñez's review, and instructions below. Verbalizes understanding with no barriers. * Telephone Encounter - Carlos Nuñez DO - 08/29/2015 1655 EDT Please contact patient via phone. [facility] . Advise patient that her TFT are ok. No change in dose. documented in this encounter Plan of Treatment Not on file documented as of this encounter Visit Diagnoses Not on filedocumented in this encounter Care Teams Flight Test Supervisor Relationship Specialty Start Date End Date Talya Robbins MD PCP - General 01/27/13 09/15/15 documented as of this encounter
--- OUTSIDE RECORDS SUMMARY | 2023-12-04 20:19 | XMS_ITS | Encounter Summary ---
Author Organization [facility] Address [address] [place] [address] Care Team Providers Care Project Controls Scheduler Name Role Phone Ariana Mcghee MD Primary Care Provider Pawan Roman MD Primary Care Provider Unavail able Reason for Referral * Radiology Services (Routine) - Specialty Report Received Specialty Diagnoses / Procedures [facility]erred To Contact Diagnoses Lower abdominal pain of unknown etiology Procedures RAD US ABDOMEN ONE ORGAN/QUADRANT Clemencia Cooley MD [address] [place] [id number] Referral ID Status Reason Start Date Expiration Date V isits Requested Visits Authorized [id number] Specialty Report Received 06/01/2016 1 1 Reason for Visit * Reason Comments Abdominal Pain abd pain and diarrhe a for a month Encounter Details Date Type Department Care Team (Late st Contact Info) Description 06/01/2016 14:45 EDT Office Visit [address] [address] Unknown, Provider, Clemencia Cooley MD [address] [place] [phone] Alyssa Mahan MD [address] [place] [id number] Lower abdominal pain of unknown etiology (Primary Dx); Laceration of arm, left, initial encounter; Intentional self-harm by knife, initial encounter ([facility] ([facility] Microhematuria Discharge Disposition: Auto Discharge Social History Tobacco [...] Sign Reading Time Taken Comments Blood Pressure 120/82 06/01/2016 1446 EDT Pulse 72 06/01/2016 1446 EDT Temperature - - Respiratory Rate - - Oxygen Saturation - - Inhaled Oxygen Concentration - - Weight 92.5 kg (204 lb) 06/01/2016 1446 EDT Height 158.8 cm (5' 2.52) 06/01/2016 1446 EDT Body Mass Index 36.69 06/01/2016 1446 EDT documented in this encounter Functional Status [...] as of this encounter Discharge Diagnoses Diagnosis R10.30 Lower abdominal pain, unspecified-R10.30[ICD-10-CM] S41.112A Laceration without foreign body of left upper arm, initial encounter-S41.112A[ICD-10-CM] X78.1XXA Intentional self-harm by knife, initial encounter-X78.1XXA[ICD-10-CM] documented in this encounter Discharge Disposition Disposition Code Departure Means Destination Auto Discharge documented in this encounter Progress Notes * Josefa Pisano - 06/01/2016 1445 EDT Results for orders placed or performed in visit on 06/01/16 POCT URINE DIPSTICK Result Value Ref Range Color YELLOW Clarity, UA Clear Glucose Neg Neg Bilirubin Neg Neg Ketones Neg Neg Specific [place] 1.025 1.001 - 1.035 Blood Trace (A) Neg pH 6.5 4.6 - 8.0 Protein Neg Neg Urobilinogen 0.2 0.2 - 1.0 E.U./dl Nitrite Neg Neg Leuk Esterase Neg Neg Tech ID [id number] POCT UPT performed per Dr. Alyssa Mahan Results: negative Josefa Pisano 06/01/2016 16:22 * Alyssa Mahan MD - 06/01/2016 2945 EDT Images from the original note were not included. CC: Abdominal pain SUBJECTIVE: 20-year-old female presents with abdominal pain. There is some epigastric pain and left lower quadrant pain that is stabbing and sharp in nature, it is constant and does not seem to be related to eating, not eating, movement, intercourse menstrual cycle. It has been present for about a month. Previously, she has had 2 similar episodes within last year but they resolved about a week. She has also had persistent nonbloody diarrhea since the pain started. She has not had fevers, nausea, acid reflux, vomiting, vaginal discharge. She has had no sick contacts. She does say she has a history of ovarian cysts, however did not cause this type of pain in the past. She also has a healing laceration on her left ventral forearm, this was self- inflicted about a weekago. She has a history of frequent cutting in high school but states it is been a couple years since she engaged in cutting. She says she was feeling overwhelmed by life stress but does not want togive more details. The stress that was overwhelming her has not resolved, however she is feeling she can handle it better now and does not plan to indication further self-harm at this point. She is not suicidal. She is not interested in counseling. ROS: Denies fevers, chills, chest pain, shortness of breath, abdominal pain, unintentional weight loss, nausea, vomiting, rash History: Social, family, and personal medical history reviewed and documented in the medical record. Medications: Reviewed and documented in the medical record OBJECTIVE: Visit Vitals ??? BP 120/82 ??? Pulse 72 ??? Ht 158.8 cm (62.52) ??? Wt 92.5 kg (204 lb) ??? BMI 36.69 kg/m2 Gen: Obese woman, alert and oriented, appropriate Head: NC/AT, JASON, sclera anicteric, conjunctiva pink. MMM, Good dentition Neck: supple, trachea midline CV: no cyanosis or clubbing, RRR no MRG Pulm: normal work of breathing at rest, speaks in full sentences, clear to auscultation bilaterally. GI: soft, NTND, no HSM, no guarding or rigidity. No left lower quadrant pain with deep palpation. Ext: well perfused, no peripheral edema, moves easily Skin: Nl color, temperature, and turgor. No scaling, excoriations, or ecchymosis. Notable for a healing laceration on the left ventral forearm, approximately 10 cm total, mostly healed, with about 3 cm in the center that is still healing by intention, there is granulation tissue but no spreading taylor thema, fluctuance, discharge, heat. : No external lesions. No external hemorrhoids or fissures. Normal vaginal mucosa, No cervical motion tenderness. Uterus without masses. Ovaries nonpalpable. No adnexal tenderness or swelling. Neuro: AOx3, cognition grossly intact Psych: Appropriate grooming. Normal speech patterns. No SI or delusional thought content is apparent. Somewhat flat affect. No psychomotor slowing or agitation. Studies: Clinic performed UA: Spec grav 1.025, trace blood, negative nitrates, negative leuk esterase Clinic performed UPT: Negative CBC unremarkable, WBC 9.82, eosinophils 1.7 BMP unremarkable, creatinine 0.93, GFR 88 ASSESSMENT: 20-year-old female with unexplained episodic left lower quadrant pain, now appears more severe and persistent then previously. DDX includes IBS, IBD, infectious diarrhea, diverticulitis. I have low suspicion for infection at this time, and she is very young to develop diverticulitis. Although she does have history of autoimmune thyroiditis, IBD or celiac disease is unlikely in the setting of ongoing weight gain and the absence of other characteristic symptoms. There is no sign of any acutely dangerous issue such as GI bleeding. We will continue the workup with transabdominal ultrasound. If this is unrevealing, we'll send stool culture. The next maybe transvaginal ultrasound to assess the ovaries. Regarding her self-harm, she is not at risk of suicide at this time according to my conversation with her today. She is not interested in pursuing counseling or starting any medication for this. She is aware that she can contact us if she changes her mind. The laceration appears to be healing well without signs of infection. PLAN by problem: 1. Lower abdominal pain of unknown etiology - Urinalysis with Reflex Microscopic - POCT Urine Test - POCT Urine Dipstick - Hemagram & Differential - Basic Metabolic Panel - RAD US ABDOMEN ONE ORGAN/QUADRANT 2. Laceration of arm, left, initial encounter 3. Intentional self-harm by knife, initial encounter - Apply bacitracin daily - Cover only if there is a chance of soiling - Continue to monitor, make appointment if she is interested in seeking any formal treatment Follow up: One month, or sooner if symptoms worsen. Discussed with Dr. Clemencia Mahan MD 7:53 06/02/2016 Family Medicine PGY3 [id number] * Clemencia Reveles MD - 06/01/2016 1445 EDT Attestation statement for patient seen by attending: I saw and examined the patient on the day of this service and agree with the findings and plan of care documented in the resident's/fellow's note. Clemencia Reveles MD Family Medicine Attending 06/02/2016 16:35 documented in this encounter Miscellaneous Notes * Addendum Note - Alyssa Mahan MD - 06/08/2016 1148 EDTAddended by: ALYSSA MAHAN on: 06/08/2016 11:48 Modules accepted: Orders documented in this encounter Plan of Treatment Not on file documented as of this encounter Procedures Procedure Name Priority Date/Time Associated Diagnosis Comments RAD US ABDOMEN ONE ORGAN/QUADRANT Routine 06/18/2016 7:57 EDT Lower abdominal pain of unknown etiology COMPLETE BLOOD COUNT AND DIFFERENTIAL Routine 06/01/2016 16:34 EDT Lower abdominal pain of unknown etiology BASIC METABOLIC PANEL (BMP) Routine 06/01/2016 16:34 EDT Lower abdominal pain of unknown etiology POCT TEST, VISUAL READ Routine 06/01/2016 16:10 EDT Lower abdominal pain of unknown etiology POCT URINE DIPSTICK, CLINITEK Routine 06/01/2016 16:08 EDT Lower abdominal pain of unknown etiology URINALYSIS WITH MICROSCOPIC IF POSITIVE Routine 06/01/2016 15:41 EDT Lower abdominal pain of unknown etiology URINE CULTURE IF POSITIVE Routine 06/01/2016 15:41 EDT Lower abdominal pain of unknown etiology documented in this encounter Results * RAD US ABDOMEN ONE ORGAN/QUADRANT (06/18/2016 7:57 EDT) Anatomical Region Laterality Modality Other 06/18/2016 7:57 EDT 06/18/2016 10:31 EDT Narrative 06/18/2016 10:31 EDT RAD US ABDOMEN ONE ORGAN/QUADRANT ??06/18/2016 7:57 AM Signs and Symptoms/Comments: ?? R10.30-Lower abdominal pain, [id number]; left lower quadrant pain Comparison: None. Technique: Grayscale, color Doppler, and cine ultrasound images of the left upper quadrant were performed in the area of pain as reported by the patient along the left mid to upper abdomen. Findings: The spleen is normal in appearance and measures 8.4 x 10.9 x 5.5 cm (263 cc), upper limits of normal. The left kidney measures 10.1 cm and shows no evidence of mass, hydronephrosis, or shadowing stone. There is normal color Doppler flow in the left kidney. No abnormality is seen in the region of pain identified by the patient. IMPRESSION: Normal ultrasound of the left upper quadrant. ??The area of pain, as reported by the patient to the technologist, was ??along the left mid to upper abdomen. I have personally reviewed the images and the above interpretation and agree with the findings. Procedure Note Eloise Tsai MD - 06/18/2016 RAD US ABDOMEN ONE ORGAN/QUADRANT 06/18/2016 7:57 AM Signs and Symptoms/Comments: R10.30-Lower abdominal pain, [id number]; left lower quadrant pain Comparison: None. Technique: Grayscale, color Doppler, and cine ultrasound images of the left upper quadrant were performed in the area of pain as reported by the patient along the left mid to upper abdomen. Findings: The spleen is normal in appearance and measures 8.4 x 10.9 x 5.5 cm (263 cc), upper limits of normal. The left kidney measures 10.1 cm and shows no evidence of mass, hydronephrosis, or shadowing stone. There is normal color Doppler flow in the left kidney. No abnormality is seen in the region of pain identified by the patient. IMPRESSION: Normal ultrasound of the left upper quadrant. The area of pain, as reported by the patient to the technologist, was along the left mid to upper abdomen. I have personally reviewed the images and the above interpretation and agree with the findings. Clemencia Cooley MD [facility] US ORDERABLES * BASIC METABOLIC PANEL (06/01/2016 16:34 EDT) Sodium 141 136 - 145 mEq/L 06/01/2016 20:31 [facility] Potassium 4.2 3.5 - 5.0 mEq/L 06/01/2016 20:31 [facility] Chloride 105 96 - 110 mEq/L 06/01/2016 20:31 [facility] CO2 25 22 - 32 mEq/L 06/01/2016 20:31 [facility] BUN 11 10 - 26 mg/dl 06/01/2016 20:31 [facility] Creatinine 0.93 0.52 - 1.04 mg/dl 06/01/2016 20:31 [facility] GFR, Calculated 88 >60 ml/min/1.7 3m2 06/01/2016 20:31 [facility] Comment: eGFR calculated using CKD-EPI equation for non Americans. Multiply eGFR by 1.16 for Americans. Calcium 9.7 8.5 - 10.5 mg/dl 06/01/2016 20:31 [facility] Calculated Calcium 9.3 8.5 - 10.5 mg/dl 06/01/2016 20:31 [facility] Glucose, Serum 86 70 - 100 mg/dl 06/01/2016 20:31 [facility] Fasting? Unknown 06/01/2016 19:42 [facility] Blood specimen (specimen) BLOOD SPECIMEN / Unknown 06/01/2016 16:34 EDT 06/01/2016 19:42 EDT Clemencia Cooley MD CHEMISTRY & BLOOD GAS ORDERABLES [facility] [address] [place] [address] * HEMAGRAM AND DIFFERENTIAL (06/01/2016 16:34 EDT) WBC 9.82 4.0 - 12.4 K/cmm 06/01/2016 20:04 [facility] RBC 4.65 3.86 - 5.04 M/cmm 06/01/2016 20:04 [facility] Hemoglobin 14.1 11.6 - 15.2 gm/dl 06/01/2016 20:04 [facility] HCT 41.6 34.9 - 44.4 % 06/01/2016 20:04 [facility] MCV 90 81 - 98 fl 06/01/2016 20:04 [facility] MCH 30.3 26.7 - 33.3 pg 06/01/2016 20:04 [facility] MCHC 33.9 32.1 - 35.9 gm/dl 06/01/2016 20:04 [facility] RDW-CV 12.4 11.7 - 14.6 % 06/01/2016 20:04 [facility] RDW-SD 40.1 37.6 - 50.3 fl 06/01/2016 20:04 [facility] PLT 328 141 - 377 K/cmm 06/01/2016 20:04 [facility] MPV 11.1 9.5 - 12.7 fl 06/01/2016 20:04 [facility] % Neutrophils 69.6 % 06/01/2016 20:04 [facility] % Lymphocytes 21.7 % 06/01/2016 20:04 [facility] % Monocytes 6.2 % 06/01/2016 20:04 [facility] % Eosinophils 1.7 % 06/01/2016 20:04 [facility] % Basophils 0.6 % 06/01/2016 20:04 [facility] % Immature Grans 0.2 % 06/01/2016 20:04 [facility] ABS Neutrophils 6.83 2.20 - 8.85 K/cmm 06/01/2016 20:04 [facility] ABS Lymphs 2.13 1.09 - 3.30 K/cmm 06/01/2016 20:04 [facility] ABS Monocytes 0.61 0.1 - 0.8 K/cmm 06/01/2016 20:04 [facility] ABS Eosinophils 0.17 0.03 - 0.61 K/cmm 06/01/2016 20:04 [facility] ABS Basophils 0.06 0.01 - 0.11 K/cmm 06/01/2016 20:04 [facility] ABS Immature Grans 0.02 0 - 0.06 K/cmm 06/01/2016 20:04 [facility] Type of Diff: Automated 06/01/2016 20:04 [facility] Blood specimen (specimen) BLOOD SPECIMEN / Unknown 06/01/2016 16:34 EDT 06/01/2016 19:42 EDT Clemencia Cooley MD PACKAGES & DNA WI OBE ORDERABLES [facility] [address] [place] [address] * POCT URINE TEST (06/01/2016 16:10 EDT) Test, Urine, POC Negative . POINT OF CARE Control Line Present Yes POINT OF CARE Background Clear? Yes POINT OF CARE Urine specimen (specimen) 06/01/2016 16:10 EDT Clemencia Cooley MD POINT OF CARE DONYA T ORDERABLES Performing Organization Address City/[facility]/ZIP Co de Phone Number POINT OF CARE * (ABNORMAL) POCT URINE DIPSTICK (06/01/2016 16:08 EDT) Color YELLOW 06/01/2016 16:19 T [facility] Clarity, UA Clear 06/01/2016 16:19 T [facility] Glucose Neg Neg 06/01/2016 16:19 [facility] Bilirubin Neg Neg 06/01/2016 16:19 [facility] Ketones Neg Neg 06/01/2016 16:19 [facility] Specific [place] 1.025 1.001 - 1.035 06/01/2016 16:19 [facility] Blood Trace(A) Neg 06/01/2016 16:19 [facility] pH 6.5 4.6 - 8.0 06/01/2016 16:19 [facility] Protein Neg Neg 06/01/2016 16:19 [facility] Urobilinogen 0.2 0.2 - 1.0 E.U./dl 06/01/2016 16:19 [facility] Nitrite Neg Neg 06/01/2016 16:19 [facility] Leuk Esterase Neg Neg 06/01/2016 16:19 [facility] subcontract manager ID [id number] 06/01/2016 16:19 [facility] Comment:Test performed at [facility] Urine specimen (specimen) URINE / Unknown 06/01/2016 16:08 EDT 06/01/2016 16:19 EDT Clemencia Cooley MD POINT OF CARE DONYA T ORDERABLES Performing Organization Address [facility] de Phone Number [facility] [address] [place] [address] * URINE CULTURE IF UA POSITIVE - NON POCT URINALYSIS ONLY (06/01/2016 15:41 EDT) Culture if Indicated Culture not indicated by urinalysis results. 06/01/2016 21:21 EDT [facility] Urine specimen (specimen) TOPOGRAPHY UNKNOWN / Unknown 06/01/2016 15:41 EDT 06/01/2016 19:59 EDT Clemencia Cooley MD MICROBIOLOGY - GE NERAL ORDERABLES Performing Organization Address [facility] Co de Phone Number [facility] [address] [place] [address] * (ABNORMAL) URINALYSIS WITH MICROSCOPIC IF POSITIVE (06/01/2016 15:41 EDT) Color, UA Yellow 06/01/2016 20:36 T [facility] Clarity, UA Clear 06/01/2016 20:36 [facility] Glucose, UA Neg Neg 06/01/2016 20:36 T [facility] Bilirubin, UA Neg Neg 06/01/2016 20:36 T [facility] Ketones, UA Neg Neg 06/01/2016 20:36 [facility] Specific [place], Urine >1.030 1.001 - 1.035 06/01/2016 20:36 [facility] Blood, UA Trace(A) Neg 06/01/2016 20:36 [facility] pH, UA 6.5 4.6 - 8.0 06/01/2016 20:36 T [facility] Protein, UA Neg Neg 06/01/2016 20:36 EDT [facility] Urobilinogen, UA 0.2 0.2 - 1.0 E.U./dl 06/01/2016 20:36 EDT [facility] Nitrite, UA Neg Neg 06/01/2016 20:36 EDT [facility] Leuk Esterase Neg Neg 06/01/2016 20:36 EDT [facility] Refractometer SG,Urine 1.025 1.001 - 1.035 06/01/2016 20:36 EDT [facility] Urine specimen (specimen) URINE / Unknown 06/01/2016 15:41 EDT 06/01/2016 19:59 EDT Clemencia Cooley MD URINALYSIS MARLEN VICENTE [facility] [address] [place] [address] documented in this encounter Visit Diagnoses Diagnosis Lower abdominal pain of unknown etiology- Primary Laceration of arm, left, initial encounter Intentional self-harm by knife, initial encounter ([facility]) Microhematuria Microscopic hematuria documented in this encounter Discontinued Medications Medication Sig Discontinue Reason Start Date End Da te sertraline (ZOLOFT) 25 mg tabletIndications:Dysth ymia Take 1 Tab by mouth daily. Patient Stopped Taking 07/15/2015 06/02/2016 documented as of this encounter Care Teams Project Controls Scheduler Relationship Specialty Start Date End Date Ariana Mcghee MD PCP - General 10/01/15 06/17/16 Pawan Roman MD PCP - General 06/18/16 11/24/16 documented as of this encounter
--- OUTSIDE RECORDS SUMMARY | 2023-12-04 20:19 | XMS_ITS | Encounter Summary ---
Author Organization [facility] Address [address] [place] [address] Care Team Providers Care Swing Saw Operator Name Role Phone Talya Robbins MD Primary Care Provider Maureen vailable Reason for Visit * Reason Onset Date Comments Medications Refill 05/14/2015 Encounter Details Date Type Department Care Team (Late st Contact Info) Description 05/14/[address] [address] Talya Robbins MD Medications Refill Social History [...] by mouth 2 times daily. 6 Tab 1 05/14/2015 07/15/2015 documented in this encounter Miscellaneous Notes * Telephone Encounter - Keira Montez RN - 05/14/2015 0848 EDT VINNY 03/13/15 ROV 07/15/15 Last prescription for Valtrex given 03/13/15 for 6 with 1 refill. * Telephone Encounter - Keira Montez RN - 05/14/2015 0850 EDTFrom: Tiny Varela Pregent To: Talya Robbins MD Sent: 05/14/2015 6:36 EDT Subject: Medication Renewal Request Original authorizing provider: MD Tiny Owens Pregyonathan would like a refill of the following medications: valACYclovir (VALTREX) 500 mg tablet [Talya Robbins MD] Preferred pharmacy: [id number] Comment: documented in this encounter Plan [...] 1 Tab by mouth 2 times daily Reorder 03/13/2015 05/14/2015 documented as of this encounter Care Teams Swing Saw Operator Relationship Specialty Start Date End Date Talya Robbins MD PCP - General 01/27/13 09/15/15 documented as of this encounter
--- OUTSIDE RECORDS SUMMARY | 2023-12-04 20:19 | XMS_ITS | Encounter Summary ---
Author Organization [facility] Address [address] [place] [address] Care Team Providers Care Tumbler Plater Name Role Phone Ariana Mcghee MD Primary Care Provider [phone] Reason for Referral * Consult (Other (Specify in Question)) - Specialty Report Received Specialty Diagnoses / Procedures Referred By Contxiomara t Referred To Contact General Surgery Diagnoses Rib pain on left side Priyanka Urban MD [address] [facility], [address] [place] [address] Referral ID Status Reason Start Date Expiration Date Visits Requested Visits Authorized [id number] Specialty Report Received Specialty Services Required 10/01/2015 1 1 Question Answer Reason for Request: lumps and bumps clinic, painful mass over left anterior ribcage consistant with lipoma Scheduling Comments (optional ? describe specific scheduling needs if applicable): after ultrasound confirmation * Radiology Services (Routine) - Specialty Report Received Specialty Diagnoses / Procedures Referred By Contac t Referred To Contact Diagnoses Rib pain on left side Procedures RAD US CHEST Jayson Conrad MD [address] [place] [address] Referral ID Status Reason Start Date Expiration Date V isits Requested Visits Authorized [id number] Specialty Report Received 10/01/2015 1 1 Reason for Visit * Reason Comments Lump left lateral chest , follow up Encounter Details Date Type Department Care Team (Late st Contact Info) Description 10/01/2015 13:30 EDT Office Visit [address] [address] Bere Arredondo MD [address] [place] [phone] Rib pain on left side (Primary Dx) Discharge Disposition: Auto Discharge Social [...] Sign Reading Time Taken Comments Blood Pressure 120/74 10/01/2015 1324 EDT Pulse 68 10/01/2015 1324 EDT Temperature - - Respiratory Rate 16 10/01/2015 1324 EDT Oxygen Saturation - - Inhaled Oxygen Concentration - - Weight 83.9 kg (185 lb) 10/01/2015 1324 EDT Height - - Body Mass Index 33.28 07/15/2015 1542 EDT documented in this encounter Functional Status [...] and dinner. 60 Tab 0 10/01/2015 07/03/2016 documented in this encounter Discharge Disposition Disposition Code Departure Means Destination Auto Discharge documented in this encounter Progress Notes * Priyanka Urban - 11/06/2015 1326 EDT Attestation statement: I discussed the patient with the resident at the time of the visit and agreewith the findings and the plan of care documented in the resident's note. Priyanka Urban MD Family Medicine Attending 11/06/2015 13:26 * Bere Arredondo MD - 10/01/2015 1331 EDT CC: lump on side SUBJECTIVE: Pain in left ribs has been going on for 3 months. Getting worse. Shoots around to left rib cage. Not worse with breathing. Worse with movement. Better with lying down. Lump disappears when lying down. Friends think her left side is more swollen than right. She tried taking scheduled motrin but did not think it helped. It was ahard to take consistently. ROS: Denies fevers, chills, chest pain, shortness of breath, abdominal pain, unintentional weight loss, nausea, vomiting, diarrhea, rash History: Social, family, and personal medical history reviewed and documented in the medical record. Medications: Reviewed and documented in the medical record OBJECTIVE: BP 120/74 mmHg Pulse 68 Resp 16 Wt 83.915 kg (185 lb) Gen: well-appearing woman in NAD Head: NC/AT, JASON, sclera anicteric, conjunctiva pink, EOMI. CV: RRR Pulm: Normal work of breathing GI: soft, NTND, no HSM, no guarding or rigidity Ext: wwp, no cyanosis or clubbing, no peripheral edema, aprox 6 cm ovoid rubbery mobile mass over left anterior 12th rib Skin: Nl color, temperature, and turgor. No scaling, excoriations, or ecchymosis. Neuro: AOx3, cognition grossly intact Studies: Chest XRAY at [facility] demonstrated NO rib fx. ASSESSMENT: The patient is a 20 yo woman who presents for re-evaluation of lump on left side that did not resolve with OTC NSAIDs. Suspect lipoma but will obtain ultrasound to further investigate mass. PLAN by problem: 1. Rib pain on left side - RAD US CHEST - naproxen (NAPROSYN) 500 mg tablet; Take 1 Tab by mouth 2 times daily with breakfast and dinner. Dispense: 60 Tab; Refill: 0 - Amb Consult/Follow Up General Surgery for lumps and bumps clinic for removal of irritated lipoma Follow up: 1 month OV Discussed with Dr. Wilmar Arredondo MD PGY-2 Family Medicine, #[id number] 10/01/2015 13:32 documented in this encounter Plan of Treatment Scheduled Referrals Name Type Priority Associated Diagnoses Orde r Schedule AMB CONS/FOLLOW UP GENERAL SURGERY Outpatient Referral Routine Rib pain on left side Ordered: 10/01/2015 documented as of this encounter Procedures Procedure Name Priority Date/Time Associated Diagnosis Comments RAD US CHEST Routine 10/09/2015 10:07 EDT Rib pain on left side documented in this encounter Results * RAD US CHEST (10/09/2015 10:07 EDT) Anatomical Region Laterality Modality Other 10/09/2015 10:0 7 EDT 10/09/2015 16:51 EDT Narrative 10/09/2015 16:51 EDT RAD US CHEST ??10/09/2015 10:07 AM SIGNS AND SYMPTOMS/COMMENTS: R07.89-[id number]-10; PAIN, pt with likely inflamed lipoma by anterior 12th rib, worsening pain x 3 months COMPARISON: Chest radiographs including obliques September 16, 2015. TECHNIQUE: Grayscale and color Doppler ultrasound evaluation was performed. Still and cine images were saved. FINDINGS: At the site of palpable chest lump as indicated by the patient there is a thinly encapsulated structure better seen in the transverse plane. It measures 2.8 x 2.5 x 1.2 cm. This has echo texture and compressibility identical to the adjacent subcutaneous fat. No abnormal Doppler signal is associated with it. IMPRESSION: Findings consistent with lipoma. I have personally reviewed the images and the above interpretation and agree with the findings. Procedure Note Urbano Nj MD - 10/09/2015 RAD US CHEST 10/09/2015 10:07 AM SIGNS AND SYMPTOMS/COMMENTS: R07.90-[id number]; PAIN, pt with likely inflamed lipoma by anterior 12th rib, worsening pain x 3 months COMPARISON: Chest radiographs including obliques September 16, 2015. TECHNIQUE: Grayscale and color Doppler ultrasound evaluation was performed. Still and cine images were saved. FINDINGS: At the site of palpable chest lump as indicated by the patient there is a thinly encapsulated structure better seen in the transverse plane. It measures 2.8 x 2.5 x 1.2 cm. This has echo texture and compressibility identical to the adjacent subcutaneous fat. No abnormal Doppler signal is associated with it. IMPRESSION: Findings consistent with lipoma. I have personally reviewed the images and the above interpretation and agree with the findings. Jayson Conrad MD IMG US ORDERAB LES documented in this encounter Visit Diagnoses Diagnosis Rib pain on left side- Primary Chest pain, unspecified documented in this encounter Care Teams Tumbler Plater Relationship Specialty Start Date End Date Ariana Mcghee MD PCP - General 10/01/15 06/17/16 documented as of this encounter
--- OUTSIDE RECORDS SUMMARY | 2023-12-04 20:19 | XMS_ITS | Encounter Summary ---
Author Organization [facility] Address [address] [place] [address] Care Team Providers Care Battery Plate Remover Name Role Phone Ariana Mcghee MD Primary Care Provider [phone] Encounter Details Date Type Department Care Team (Late st Contact Info) Description 12/25/[address] [address] Ariana Mcghee MD [facility] [place] [address] Social History Tobacco Use Types Packs/Day Years [...] on filedocumented in this encounter Care Teams Battery Plate Remover Relationship Specialty Start Date End Date Ariana Mcghee MD PCP - General 10/01/15 06/17/16 documented as of this encounter
--- OUTSIDE RECORDS SUMMARY | 2023-12-04 20:19 | XMS_ITS | Encounter Summary ---
Author Organization [facility] Address [address] [place] [address] Care Team Providers Care Biscuit Machine Operator Name Role Phone Ariana Mcghee MD Primary Care Provider [phone] Reason for Visit * Reason Comments Hypothyroidism Encounter Details Date Type Department Care Team (Latest Contact Info) Description 03/19/2016 11:00 EST Office Visit [facility] Endocrinology - [facility] [address] [place], [place] [id number] Carlos Nuñez, [address] [facility] [address] [place] [address] Graves' disease (Primary Dx); Hypothyroidism, postablative Discharge Disposition: Auto Discharge Social History Tobacco [...] Sign Reading Time Taken Comments Blood Pressure 124/64 03/19/2016 1123 EST Pulse 77 03/19/2016 1123 EST Temperature - - Respiratory Rate - - Oxygen Saturation - - Inhaled Oxygen Concentration - - Weight - - Height 158.8 cm (5' 2.52) 03/19/2016 1123 EST Body Mass Index - - documented in [...] No 03/12/2016 documented as of this encounter Discharge Diagnoses Diagnosis 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 Nuñez will inform you of your lab results by phone or mail within 2 weeks. If you do not receive your test results after two weeks please contact the office. 2. Call with questions, concerns or change in symptoms. 3. Follow-up in one year documented in this encounter Discharge Disposition Disposition Code Departure Means Destination Auto Discharge documented in this encounter Progress Notes * Carlos Nuñez DO - 03/19/2016 1100 EST SUBJECTIVE:Tiny Cervantes is a 20 y.o. 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 Patient is currently taking levo thyroxine 175 mcg daily. She reports compliance with her daily medication. The patient is taking her medication first thing in the morning on empty stomach. On interview today, patient denies fatiguelack of energy or excessive tiredness. No significant changes in her weight or bowel habits. Mood is stable. No clear signs or symptoms of over replacement such as palpitations, hyperdefication, unintentional weight loss, tremor, insomnia, heat intolerance. ?? PAST MEDICAL HISTORY: Reviewed as documented in the electronic medical record. ?? MEDICATIONS: Reviewed as documented in the electronic medical record. ?? ALLERGIES: Reviewed as documented in the electronic medical record. ?? OBJECTIVE: Physical exam: Visit Vitals ??? BP 124/64 ??? Pulse 77 ??? Ht 158.8 cm (62.52) General: The patient is a 19 y.o. female in no acute distress. HEENT: Eyes: No proptosis or exophthalmus. No lid lag or periorbital edema. Extraocular muscles are intact and equal bilaterally. Mouth:Mucous membranes moist and pink in color. No oral lesions seen. Neck: Supple without adenopathy. NoJVD or carotid bruits appreciated. Thyroid is normal in size without tenderness or nodules to palpation. Respiratory: Lungs are clear to auscultation bilaterally. Cardiovascular: Heart is regular without murmurs rubs or gallops. GI: Abdomen is soft nontender nondistended. Good bowel sounds in all 4quadrants. Extremities: No clubbing cyanosis or edema. Strength is 5 out of 5 and equal bilaterallyin all 4 extremities. Neuro: DTRs are +2/4 and equal in all 4 extremities. No resting tremor. Psych: Patient is alert and oriented x3. Denies depression anxiety. ?? LABORATORY DATA: Pending at time of dictation. ?? ASSESSMENT: ?? 1. 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 Patient transitioned to the hypothyroid state in 2012. The patient appears clinically and biochemically euthyroid. Patient was instructed to callwith any questions or concerns or changes in symptoms. Follow up with me in one year. We will checkthyroid function tests today. I will contact patient with results. ?? PLAN: ?? 1. Continue current dose of thyroid hormone replacement. 2. Call with questions, concerns or change in symptoms. 4. Followup in one year. 5. Obtain thyroid function tests documented in this encounter Plan of Treatment Not on file documented as of this encounter Results * T4 FREE (03/19/2016 11:52 EST) Free T4 1.7 0.8 - 1.8 ng/dl 03/19/2016 14:19 EST [facility] Blood specimen (specimen) BLOOD SPECIMEN / Unknown 03/19/2016 11:52 EST 03/19/2016 13:31 EST Carlos Nuñez DO CHEMISTRY & BL OOD GAS ORDERABLES Performing Organization Address City/[facility] Co de Phone Number [facility] [address] [place] [address] * TSH (03/19/2016 11:52 EST) TSH 1.52 0.55 - 4.78 uIU/ml 03/19/2016 14:20 EST [facility] Blood specimen (specimen) BLOOD SPECIMEN / Unknown 03/19/2016 11:52 EST 03/19/2016 13:31 EST Carlos Nuñez DO CHEMISTRY & BL OOD GAS ORDERABLES Performing Organization Address [facility] Co de Phone Number [facility] [address] [place] [phone] documented in this encounter Visit Diagnoses Diagnosis Graves' disease- Primary Toxic diffuse goiter without mention of thyrotoxic crisis or storm Hypothyroidism, postablative Other postablative hypothyroidism documented in this encounter Care Teams Biscuit Machine Operator Relationship Specialty Start Date End Date Ariana Mcghee MD PCP - General 10/01/15 06/17/16 documented as of this encounter
--- OUTSIDE RECORDS SUMMARY | 2023-12-04 20:19 | XMS_ITS | Encounter Summary ---
Author Organization [facility] Address [address] [place] [address] Care Team Providers Care Assembler Tester Name Role Phone Talya Robbins MD Primary Care Provider Maureen vailable Reason for Visit * Reason Onset Date Comments Medications Refill 12/31/2014 Encounter Details Date Type Department Care Team (Late st Contact Info) Description 12/31/[address] [address] Talya Robbins MD Medications Refill Social History [...] 1 Tab by mouth 2 times daily 6 Tab 1 12/31/2014 03/13/2015 documented in this encounter Miscellaneous Notes * Telephone Encounter - Allyson Lee - 12/31/2014 1416 EST Medication(s) Requested: valtrex Pharmacy: [facility] Last Refill Date: 11.27.14 Last Visit Date: 11.27.14 Next Visit Date: 01/10/2015 Is patient out of medication? Yes - pt is having an outbreak and is hoping to package pick up as soon as possible. Allyson Lee 12/31/2014 14:16 documented in this encounter Plan of Treatment [...] Tab by mouth 2 times daily Reorder 11/27/2014 12/31/2014 documented as of this encounter Care Teams Assembler Tester Relationship Specialty Start Date End Date Talya Robbins MD PCP - General 01/27/13 09/15/15 documented as of this encounter
--- OUTSIDE RECORDS SUMMARY | 2023-12-04 20:19 | XMS_ITS | Encounter Summary ---
Author Organization [facility] Address [address] [place] [address] Care Team Providers Care Survey Chief Name Role Phone Pawan Roman MD Primary Care Provider Unavail able Encounter Details Date Type Department Care Team (Latest Contact Info) Description 06/18/2016 7:11 EDT - 06/18/2016 23:59 EDT Hospital Encounter [facility] [place] [address] [place] [address] Clemencia Cooley MD [address] [place] [phone] Discharge Disposition: Auto Discharge Social History Tobacco [...] as of this encounter Discharge Diagnoses Diagnosis R10.32 Left lower quadrant pain-R10.32[ICD-10-CM] documented in this encounter Medications at Time of Discharge Medication Sig Dispensed Refills Start Date End Date ACETAMINOPHEN (TYLENOL ORAL) Take 650 mg by mouth as needed. 03/19/2017 ALBUTEROL INHL Inhale as directed as needed. Reported on 07/03/2016 05/15/2010 03/19/2017 levothyroxine (SYNTHROID) 175 mcg tabletIndications:Other postablative hypothyroidism Take 1 Tab by mouth daily. 90 Tab 3 12/25/2015 12/25/2016 meloxicam (MOBIC) 15 mg tabletIndications:Left axillary pain Take 1 Tab by mouth daily. 30 Tab 1 03/12/2016 07/03/2016 naproxen (NAPROSYN) 500 mg tabletIndications:Rib pain on left side Take 1 Tab by mouth 2 times daily with breakfast and dinner. 60 Tab 0 10/01/2015 07/03/2016 valACYclovir (VALTREX) 500 mg tabletIndications:PCR DNA positive for HSV1 Take 1 Tab by mouth 2 times daily. 6 Tab 2 12/23/2015 07/03/2016 documented as of this encounter Discharge Disposition Disposition Code Departure Means Destination Auto Discharge Home documented in this encounter Plan of Treatment Not on file documented as of this encounter Visit Diagnoses Not on filedocumented in this encounter Care Teams Survey Chief Relationship Specialty Start Date End Date Pawan Roman MD PCP - General 06/18/16 11/24/16 documented as of this encounter
--- OUTSIDE RECORDS SUMMARY | 2023-12-04 20:19 | XMS_ITS | Encounter Summary ---
Author Organization [facility] Address [address] [place] [address] Care Team Providers Care Supervisor Record Press Name Role Phone Talya Robbins MD Primary Care Provider Maureen vailable Reason for Visit * Reason Onset Date Comments Medications Refill 05/10/2015 Encounter Details Date Type Department Care Team (Late st Contact Info) Description 05/10/2015 Refill [facility] Family Medicine [address] [address] Marva Tamayo MD [address] [place] [phone] Medications Refill Social History Tobacco Use Types [...] End Da te sertraline (ZOLOFT) 25 mg tabletIndications:Depressi on Take 1 Tab by mouth daily. 30 Tab 2 05/14/2015 07/15/2015 documented in this encounter Miscellaneous Notes * Telephone Encounter - Keira Montez RN - 05/10/2015 0815 EST VINNY 03/13/15 ROV 07/15/15 Last prescription for sertraline given 12/27/14 for 30 with 0 refills. * Telephone Encounter - Keira Montez RN - 05/10/2015 0814 ESTFrom: Tiny Varela Pregent To: Marva Tamayo MD Sent: 05/10/2015 6:47 EST Subject: Medication Renewal Request Original authorizing provider: MD Tiny Blackwell Pregent would like a refill of the following medications: sertraline (ZOLOFT) 25 mg tablet [Marva Tamayo MD] Preferred pharmacy: [id number] Comment: Today 05/09, was my last pill. I'm out. documented in this encounter Plan of Treatment Not on file documented as of this encounter Visit Diagnoses Diagnosis Depression- Primary Depressive disorder, not elsewhere classified documented in this encounter Discontinued Medications Medication Sig Discontinue Reason Start Date End Da te sertraline (ZOLOFT) 25 mg tabletIndications:Depress ion Take 1 Tab by mouth daily Reorder 12/27/2014 05/10/2015 documented as of this encounter Care Teams Supervisor Record Press Relationship Specialty Start Date End Date Talya Robbins MD PCP - General 01/27/13 09/15/15 documented as of this encounter
--- OUTSIDE RECORDS SUMMARY | 2023-12-04 20:19 | XMS_ITS | Encounter Summary ---
Author Organization [facility] Address [address] [place] [address] Care Team Providers Care Underground Foreman Name Role Phone Ariana Mcghee MD Primary Care Provider [phone] Reason for Visit * Reason Comments New Patient Visit LIPOMA LEFT ANTERIOR RIBCAGE * Consult (Other (Specify in Question)) - Specialty Report Received Specialty Diagnoses / Procedures Referred By Eugene asencio Referred To Contact General Surgery Diagnoses Rib pain on left side Priyanka Urban MD [address] [facility], [address] [place] [address] Referral ID Status Reason Start Date Expiration Date Visits Requested Visits Authorized [id number] Specialty Report Received Specialty Services Required 10/01/2015 1 1 Encounter Details Date Type Department Care Team (Late st Contact Info) Description 11/14/2015 14:00 EDT Office Visit [facility] General Surgery - [facility] [address] [place], [place] [address] Rojelio Pimentel MD [address] [place] [phone] Lipoma of anterior chest wall (Primary Dx) Social History Tobacco Use Types Packs/Day Years Used Date Smoking Tobacco: Some Days Cigarettes 0.5 5 Cigars Smokeless Tobacco: Never Tobacco Cessation:Ready to Q uit: No; Counseling Given: No Alcohol Use Standard Drinks/Week Comments Yes 8 (1 standard drink = 0.6 oz pur e alcohol) Sex and Gender Information Value Date Recorded Sex Assigned at Not on file Gender Identity Female 03/02/2019 11:17 EST Sexual Orientation Not on file documented as of this encounter Last Filed Vital Signs Vital Sign Reading Time Taken Comments Blood Pressure 128/70 11/14/2015 1354 EDT Pulse 60 11/14/2015 1354 EDT Temperature - - Respiratory Rate 16 11/14/2015 1354 EDT Oxygen Saturation - - Inhaled Oxygen Concentration - - Weight 88.1 kg (194 lb 3.2 oz) 11/14/2015 1354 E DT Height 158.8 cm (5' 2.5) 11/14/2015 1354 EDT Body Mass Index 34.95 11/14/2015 1354 EDT documented in this encounter Functional Status [...] No 12/26/2014 documented as of this encounter Progress Notes * Rojelio Pimentel MD - 11/14/2015 1407 EDT Left anterior cw lipoma approx 2 cm freely movable Told pt i could excise it but it is not the source of her pain -she would like it excised nonetheless Will arrange with local only documented in this encounter Plan of Treatment Not on file documented as of this encounter Visit Diagnoses Diagnosis Lipoma of anterior chest wall- Primary documented in this encounter Care Teams Underground Foreman Relationship Specialty Start Date End Date Ariana Mcghee MD PCP - General 10/01/15 06/17/16 documented as of this encounter
--- OUTSIDE RECORDS SUMMARY | 2023-12-04 20:19 | XMS_ITS | Encounter Summary ---
Author Organization [facility] Address [address] [place] [address] Care Team Providers Care Dispatcher Tow Truck Name Role Phone Pawan Roman MD Primary Care Provider Unavail able Reason for Visit * Reason Onset Date Comments Other 07/08/2016 Encounter Details Date Type Department Care Team (Late st Contact Info) Description 07/08/[address] [address] Pawan Roman MD Other Social History Tobacco Use Types Packs/Day [...] Miscellaneous Notes * Telephone Encounter - Keesha Berg - 07/08/2016 0959 EDT Martine from the [facility] lab calling, unable to preform the C dif test, the stool was formed, the test can only be done on watery stool. documented in this encounter Plan of Treatment Not on file documented as of this encounter Visit Diagnoses Not on filedocumented in this encounter Care Teams Dispatcher Tow Truck Relationship Specialty Start Date End Date Pawan Roman MD PCP - General 06/18/16 11/24/16 documented as of this encounter
--- OUTSIDE RECORDS SUMMARY | 2023-12-04 20:19 | XMS_ITS | Encounter Summary ---
Author Organization [facility] Address [address] [place] [address] Care Team Providers Care Refinery Operator Assistant Name Role Phone Talya Robbins MD Primary Care Provider Maureen vailable Reason for Visit * Reason Comments Anxiety Tiny is here toda y to follow up on her chronic conditions Depression Lump Pt is here to follow up on a lump on her left side, under her breast on the left ribs -- she was seen for this at [facility] ED Encounter Details Date Type Department Care Team (Late st Contact Info) Description 07/15/2015 16:00 EDT Office Visit [facility] Family Medicine [address] [address] Unknown, Provider, Talya Robbins MD Dysthymia (Primary Dx); Lipoma of torso; PCR DNA positive for HSV1 Social History Tobacco Use Types Packs/Day Years Used Date Smoking Tobacco: Some Days Cigarettes 0.3 5 Cigars Smokeless Tobacco: Never Tobacco Cessation:Ready to Q uit: No; Counseling Given: No Alcohol Use Standard Drinks/Week Comments Yes 0.8 (1 standard drink = 0.6 oz p ure alcohol) Sex and Gender Information Value Date Recorded Sex Assigned at Not on file Gender Identity Female 03/02/2019 11:17 EST Sexual Orientation Not on file documented as of this encounter Last Filed Vital Signs Vital Sign Reading Time Taken Comments Blood Pressure 102/80 07/15/2015 1542 EDT Pulse 80 07/15/2015 1542 EDT Temperature 36.9 ??C (98.5 ??F) 07/15/2015 1542 EDT Respiratory Rate - - Oxygen Saturation - - Inhaled Oxygen Concentration - - Weight 83.9 kg (185 lb) 07/15/2015 1542 EDT Height 158.8 cm (5' 2.52) 07/15/2015 1542 EDT Body Mass Index 33.28 07/15/2015 1542 EDT [...] End Da te sertraline (ZOLOFT) 25 mg tabletIndications:Dysthymi a Take 1 Tab by mouth daily. 90 Tab 2 07/15/2015 06/02/2016 valACYclovir (VALTREX) 500 mg tabletIndications:PCR DNA positive for HSV1 Take 1 Tab by mouth 2 times daily. 6 Tab 2 07/15/2015 12/23/2015 documented in this encounter Progress Notes * Nancy Duggan MD - 07/20/2015 5815 EDT Attestation statement: I discussed the patient with the resident/fellow at the time of the visit and agree with the plan of care. Nancy Duggan MD 07/20/2015 7:57 * Talya Robbins MD - 07/15/2015 7708 EDT Subjective: Patient ID: Tiny Varela Pregent is an 19 y.o. female. Chief Complaint Patient presents with ??? Anxiety Tiny is here today to follow up on her chronic conditions ??? Depression ??? Lump Pt is here to follow up on a lump on her left side, under her breast on the left ribs -- she was seen for this at [facility] ED HPI Lump on left side Sometimes painful Can't sleep on her left side Doesn't prevent her from doing anything Has noticed for about 3 weeks Was seen at an urgent care and told it was a lipoma and to follow up with PCP Depression/anxiety Doing much better recently Feels like she is in a better place Taking 25 mg sertraline daily Is getting end of the summer- very excited about this Would not mind getting - they want to have a baby Feeling more motivated to do things, not as down Patient Active Problem List Diagnosis ??? Acanthosis nigricans ??? Vitamin D deficiency ??? Status post radioactive iodine thyroid ablation ??? PCR DNA positive for HSV1 ??? Hypothyroidism, postablative ??? Closed fracture of nasal bone ??? Depression ??? Tobacco dependence ??? Graves' disease Past Medical History Diagnosis Date ??? Asthma, exercise induced ??? Depression ??? Thyroid disease ??? Mood disorder ??? ADD (attention deficit disorder) Current Outpatient Prescriptions on File Prior to Visit Medication Sig Dispense Refill ??? ACETAMINOPHEN (TYLENOL ORAL) Take 650 mg by mouth as needed. ??? ALBUTEROL INHL Inhale as directed as needed. 2 puffs as needed ??? levothyroxine (SYNTHROID) 175 mcg tablet Take 1 Tab by mouth daily 90 Tab 3 No current facility-administered medications on file prior to visit. Allergies Allergen Reactions ??? Hydrocodone Nausea And Vomiting ??? Lorabid [Loracarbef] Nausea And Vomiting ??? Vicodin [Hydrocodone-Acetaminophen] Nausea And Vomiting ??? Yeast Nausea And Vomiting If consumes large amounts will develop N/V Social History Substance Use Topics ??? Smoking status: Current Some Day Smoker -- 0.25 packs/day for 5 years Types: Cigarettes, Cigars ??? Smokeless tobacco: Never Used ??? Alcohol Use: 0.5 oz/week 1 Standard drinks or equivalent per week Review of Systems Constitutional: Negative for fever, chills and malaise/fatigue. Respiratory: Negative for shortness of breath. Cardiovascular: Negative for chest pain and palpitations. Gastrointestinal: Negative for nausea, vomiting, abdominal pain, diarrhea and constipation. Musculoskeletal: Negative for joint pain. Psychiatric/Behavioral: Negative for depression and suicidal ideas. The patient is not nervous/anxious and does not have insomnia. - See HPI Objective: BP 102/80 mmHg Pulse 80 Temp(Src) 36.9 ??C (98.5 ??F) (Oral) Ht 158.8 cm (62.52) Wt 83.915kg (185 lb) BMI 33.28 kg/m2 LMP 07/02/2015 (Exact Date) Physical Exam Constitutional: She is oriented to person, place, and time. She appears well- developed and well-nourished. No distress. HENT: Head: Normocephalic and atraumatic. Eyes: No scleral icterus. Pulmonary/Chest: Effort normal. No respiratory distress. Neurological: She is alert and oriented to person, place, and time. Skin: Skin is warm and dry. On palpation Soft, mobile mass under left breast, approximately 3 cm x3 cm. Not visible on inspection Psychiatric: She has a normal mood and affect. Her behavior is normal. Vitals reviewed. Assessment: Plan: Tiny was seen today for anxiety, depression and lump. Diagnoses and all orders for this visit: Dysthymia: Improved and stable. Doing well overall. Follow up in fall or sooner if needed. Orders: - Continue sertraline (ZOLOFT) 25 mg tablet; Take 1 Tab by mouth daily. Lipoma of torso: Not symptomatic aside from some tenderness. No further work up or treatment neededat this time unless growing or remains tender. PCR DNA positive for HSV1 Orders: - valACYclovir (VALTREX) 500 mg tablet; Take 1 Tab by mouth 2 times daily. Return in about 5 months (around 12/15/2015) for f/u mood. Patient discussed with Dr. Urban Robbins MD Chief Deputy Court Clerk PGY 3 07/16/2015 18:39 documented in this encounter Plan of Treatment Not on file documented as of this encounter Visit Diagnoses Diagnosis Dysthymia- Primary Dysthymic disorder Lipoma of torso PCR DNA positive for HSV1 Special screening examination for other specified viral diseases documented in this encounter Discontinued Medications Medication Sig Discontinue Reason Start Date End Da te valACYclovir (VALTREX) 500 mg tabletIndications:PCR DNA positive for HSV1 Take 1 Tab by mouth 2 times daily. Reorder 05/14/2015 07/15/2015 sertraline (ZOLOFT) 25 mg tabletIndications:Depress ion Take 1 Tab by mouth daily. Reorder 05/14/2015 07/15/2015 documented as of this encounter Care Teams Refinery Operator Assistant Relationship Specialty Start Date End Date Talya Robbins MD PCP - General 01/27/13 09/15/15 documented as of this encounter
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
--- OUTSIDE RECORDS SUMMARY | 2023-12-04 20:19 | XMS_ITS | Encounter Summary ---
Author Organization [facility] Address [address] [place] [address] Care Team Providers Care Co Pilot Name Role Phone Thea Santamaria MD Primary Care Provider [phone] Encounter Details Date Type Department Care Team (Late st Contact Info) Description 12/23/2016 Results Only Imaging [facility] [address], [place] [id number] Shefali Iqbal MD [address] [facility] [address] [place] [address] Social History Tobacco Use Types [...] Procedure Name Priority Date/Time Associated Diagnosis Comments BOTTOM SANDER US OB FIRST TRIMESTER TRANSVAGINAL 12/23/2016 12:04 EDT documented in this encounter Results * BOTTOM SANDER US OB FIRST TRIMESTER TRANSVAGINAL (12/23/2016 12:04 EDT) Anatomical Region Laterality Modality Other 12/23/2016 12:0 4 EDT 12/23/2016 14:18 EDT Narrative 12/23/2016 14:18 EDT Indication Early Assessment. History ======= Previous Outcomes ?1 Para ?? 0 Reed children born (T) ?0 Reed children born (P) ?0 Abortions (A) ??0 Reed living children (L) ??0 Number of gestational sacs: 1. Dating ======= Method of dating: ??based on the LMP LMP on: ?10/29/2016 GA by LMP ??7 w + 6 d GEOVANI by LMP : ? 08/05/2017 Ultrasound examination on: 12/23/2016 GA by U/S based upon: ??CRL GA by U/S ??7 w + 4 d GEOVANI by U/S: ?08/07/2017 Assigned: ??Dating performed on 12/23/2016 Based on the LMP Assigned GA ?7 w + 6 d Assigned GEOVANI: ??08/05/2017 Assessment Gestational sac: ?? Visualized Location: ??Intrauterine Yolk sac: ??Visualized Amniotic sac: ??Visualized Embryo: ?Visualized CRL ?13.6 mm 53% 7w 4d Hadlock Cardiac activity: ??Present FHR ?161 bpm Maternal Structures Uterus / Cervix Uterus: ?Anteverted Uterus details: ?No abnormalities detected. Appears normal Cervix: ?Appears normal Ovaries / Tubes / Adnexa Rt ovary D1 ?3.8 cm Rt ovary D2 ?3.2 cm Rt ovary D3 ?2.6 cm Rt ovary mean ??3.2 cm Rt ovary vol ?? 16.6 cm cubed Lt ovary D1 ?3.9 cm Lt ovary D2 ?2.3 cm Lt ovary D3 ?2.1 cm Lt ovary mean ??2.8 cm Lt ovary vol ?? 9.8 cm cubed Method ======== Transvaginal ultrasound examination. View: Sufficient. Impression 1st Trimester OB scan ,transvaginal +[id number] Single viable intrauterine (IUP) , size equals menstrual dates. Of note there is a 4.6 x 1.7 x 2.4 cm heterogenous subchorionic blood collection fundal and left of the gestational sac. Patient reports persistent vaginal bleeding. Comment ========= Results discussed w/patient. DATE OF SERVICE: 12/23/2016 Procedure Note Danyel Boland MD - 12/23/2016 Indication Early Assessment. History ======= Previous Outcomes 1 Para 0 Reed children born (T) 0 Reed children born (P) 0 Abortions (A) 0 Reed living children (L) 0 Number of gestational sacs: 1. Dating ======= Method of dating: based on the LMP LMP on: 10/29/2016 GA by LMP 7 w + 6 d GEOVANI by LMP : 08/05/2017 Ultrasound examination on: 12/23/2016 GA by U/S based upon: CRL GA by U/S 7 w + 4 d GEOVANI by U/S: 08/07/2017 Assigned: Dating performed on 12/23/2016 Based on the LMP Assigned GA 7 w + 6 d Assigned GEOVANI: 08/05/2017 Assessment Gestational sac: Visualized Location: Intrauterine Yolk sac: Visualized Amniotic sac: Visualized Embryo: Visualized CRL 13.6 mm 53% 7w 4d Hadlock Cardiac activity: Present FHR 161 bpm Maternal Structures Uterus / Cervix Uterus: Anteverted Uterus details: No abnormalities detected. Appears normal Cervix: Appears normal Ovaries / Tubes / Adnexa Rt ovary D1 3.8 cm Rt ovary D2 3.2 cm Rt ovary D3 2.6 cm Rt ovary mean 3.2 cm Rt ovary vol 16.6 cm cubed Lt ovary D1 3.9 cm Lt ovary D2 2.3 cm Lt ovary D3 2.1 cm Lt ovary mean 2.8 cm Lt ovary vol 9.8 cm cubed Method ======== Transvaginal ultrasound examination. View: Sufficient. Impression 1st Trimester OB scan ,transvaginal +[id number] Single viable intrauterine (IUP) , size equals menstrual dates. Of note there is a 4.6 x 1.7 x 2.4 cm heterogenous subchorionic blood collection fundal and left of the gestational sac. Patient reports persistent vaginal bleeding. Comment ========= Results discussed w/patient. DATE OF SERVICE: 12/23/2016 Shefali Iqbal MD IMG US BOTTOM SANDER ORDER LITZY documented in this encounter Visit Diagnoses Not on filedocumented in this encounter Care Teams Co Pilot Relationship Specialty Start Date End Date Thea Santamaria MD [address] [place] [id number] PCP - General 11/25/16 05/25/17 documented as of this encounter
--- OUTSIDE RECORDS SUMMARY | 2023-12-04 20:19 | XMS_ITS | Encounter Summary ---
Author Organization [facility] Address [address] [place] [address] Care Team Providers Care Preschool Teacher Aide Name Role Phone Ariana Mcghee MD Primary Care Provider [phone] Reason for Visit * Reason Onset Date Comments Medications Refill 12/24/2015 Encounter Details Date Type Department Care Team (Late st Contact Info) Description 12/24/2015 Refill [facility] - [facility] [address], [place] [phone] Carlos Nuñez, [address] [facility] [address] [place] [address] Medications Refill Social History Tobacco [...] mouth daily. 90 Tab 3 12/25/2015 12/25/2016 documented in this encounter Miscellaneous Notes * Telephone Encounter - Britt Reid, ROULA - 12/25/2015 0907 EDTFrom: Tiny Varela Pregent To: Carlos Nuñez DO Sent: 12/24/2015 19:11 EDT Subject: Medication Renewal Request Original authorizing provider: DO Tiny Gonzales Pregent would like a refill of the following medications: levothyroxine (SYNTHROID) 175 mcg tablet [Carlos Nuñez DO] Preferred pharmacy: [facility] [address] [place], [place] - [address] [facility] Comment: documented in this encounter Plan of Treatment Not on file documented as of this encounter Visit Diagnoses Diagnosis Other postablative hypothyroidism- Primary documented in this encounter Discontinued Medications Medication Sig Discontinue Reason Start Date End Da te levothyroxine (SYNTHROID) 175 mcg tabletIndications:Other postablative hypothyroidism Take 1 Tab by mouth daily Reorder 07/16/2014 12/24/2015 documented as of this encounter Care Teams Preschool Teacher Aide Relationship Specialty Start Date End Date Ariana Mcghee MD PCP - General 10/01/15 06/17/16 documented as of this encounter
--- OUTSIDE RECORDS SUMMARY | 2023-12-04 20:19 | XMS_ITS | Encounter Summary ---
Author Organization [facility] Address [address] [place] [address] Care Team Providers Care Oracle R12 Developer Name Role Phone Ariana Mcghee MD Primary Care Provider [phone] Reason for Visit * Reason Onset Date Comments Other 12/06/2015 Encounter Details Date Type Department Care Team (Late st Contact Info) Description 12/06/2015 Telephone [facility] General Surgery [facility] [address] [place], [place] [phone] Rojelio Pimentel MD [address] [place] [address] Other Social History Tobacco Use Types Packs/Day [...] encounter Miscellaneous Notes * Telephone Encounter - Flo Lott - 12/06/2015 1507 EDT Left voicemail to confirm surgery check-in time with Dr. Pimentel on 12/09/15 at 9:55am, check-in with Registration on the third floor at the [facility] at 8:55am. documented in this encounter Plan of Treatment Not on file documented as of this encounter Visit Diagnoses Not on filedocumented in this encounter Care Teams Oracle R12 Developer Relationship Specialty Start Date End Date Ariana Mcghee MD PCP - General 10/01/15 06/17/16 documented as of this encounter
--- OUTSIDE RECORDS SUMMARY | 2023-12-04 20:19 | XMS_ITS | Encounter Summary ---
Author Organization [facility] Address [address] [place] [address] Care Team Providers Care Rug Cutter Name Role Phone Thea Santamaria MD Primary Care Provider Reason for Visit * Reason Comments Thyroid Problem Encounter Details Date Type Department Care Team (Latest Contact Info) Description 12/24/2016 14:20 EDT Office Visit [facility] Endocrinology - [facility] [address] [place] [address] Carlos Nuñez, [address] [facility] [address] [place] [address] Hypothyroidism, postablative (Primary Dx) Discharge Disposition: Auto [...] Sign Reading Time Taken Comments Blood Pressure 121/60 12/24/2016 1410 EDT Pulse 71 12/24/2016 1410 EDT Temperature - - Respiratory Rate - - Oxygen Saturation - - Inhaled Oxygen Concentration - - Weight 92.5 kg (204 lb) 12/24/2016 1410 EDT roberto ent reported Height 157.5 cm (5' 2.01) 12/24/2016 1410 EDT Body Mass Index 37.3 12/24/2016 1410 EDT documented in this encounter Functional Status [...] * Patient Instructions* Carlos Nuñez DO - 12/24/2016 14:[address] Nuñez will inform you of your lab results by phone or mail within 2 weeks. If you do not receive your test results after two weeks please contact the office. 2. Call with questions, concerns or change in symptoms. 3. Repeat labs every 4 months for first 20-24 weeks of 4. 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 The patient just found out she is . She just missed her menstrual cycle last month. She is currently on levothyroxine 175 mcg daily. She takes this medication first thing in the morning on an empty stomach.She has not been her levothyroxine and vitamin and I did discuss that she should start doing that as the vitamin does have some calcium and iron in it, which may affect ab sorption. Her energy level is stable. Notes some slight increase in fatigue. Weight has remained stable. No changes in her mood. Bowels have been stable as well. No clear signs or symptoms of over-replacement such as palpitations, hyperdefecation, unintentional weight loss, tremor, insomnia or heatintolerance. PAST MEDICAL HISTORY: Reviewed as documented in electronic medical record. MEDICATIONS: Reviewed as documented in electronic medical record. ALLERGIES: Reviewed as documented in electronic medical record. OBJECTIVE: Physical exam: Blood pressure is 121/60, pulse is 71, weight is 204 pounds, BMI is 37. In general, the patient is a pleasant 21-year-old female in no acute distress. HEENT: Eyes: No proptosis or exophthalmus. No lid lag or periorbital edema. Extraocular muscles are intact and equal bilaterally. Mouth: Mucous membranes moist and pink in color. No oral lesions seen. Neck: Supple without adenopathy. No JVD or carotid bruits appreciated. Thyroid is normal in size without tenderness or nodules to palpation. Respiratory: Lungs are clear to auscultation bilaterally. Cardiovascular: Heart is regular without murmurs rubs or gallops. GI: Abdomen is soft nontender nondistended. Good bowel sounds in all 4 quadrants. Extremities: No clubbing cyanosis or edema. Strength is 5 out of 5 and equal bilaterally in all 4 extremities. Neuro: DTRs are +2/4 and equal in all 4 extremities. No restingtremor. Psych: Patient is alert and oriented x3. Denies depression anxiety. LABORATORY DATA: Pending at time of dictation. 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 The patient transitioned to the hypothyroid state in 11/2012. She is currently in the first few weeks of . Discussed with patient today that most patients need a 25% to 50% increase in levothyroxine dose during due to increase in estrogen and subsequent increase in thyroid binding globulin, as well as increased deiodinase activity along the placental lining. We will have her go for labs after today's visit and I will contact her with those results tomorrow. Will likely bump her up from 175 to 200 mcg. The plan is to check thyroid function tests including a TSH and a free T4 every 4 weeks at [facility] for the first 20 to 24 weeks of her . After that, we will check it intermittently as the baby's thyroid will have already been developed at that time. Discussed with the patient that she should hear from this provider within 24 to 48 hours of her labs being drawn at [facility] every month and that she should contact the office if it goes more than 48 hours after she has had her blood drawn to make sure that we stay on top of things and adjust medications as needed. Goal TSH for first trimester is less than 2.5, for the second and third trimesters is less than 3. PLAN: 1. Repeat thyroid function tests today. 2. Will likely increase dose after I have reviewed the labs tomorrow. 3. Repeat thyroid function tests every 4 weeks at [facility] (I sent a standing order to via fax to [facility] today) and I will contact patient within 24 to 48 hours after the blood work has been drawn with the results and make any adjustments in levothyroxine dose to maintain TSH within the desired range, which is discussed above. 4. Call with questions or concerns or changes in status. If she does have a spontaneous , she should revert back to her previous dose. 5. Encouraged her to call with any questions or concerns. 6. Separate vitamin from levothyroxine by 4 hours. documented in this encounter Plan of Treatment Not on file documented as of this encounter Results * T4 FREE (12/24/2016 14:37 EDT) T4, Free 0.9 0.8 - 2.2 ng/dl 12/24/2016 17:45 EDT [facility] Comment:New methodology in u se 08/26/16. Blood specimen (specimen) BLOOD SPECIMEN / Unknown 12/24/2016 14:37 EDT 12/24/2016 16:14 EDT Carlos Nuñez DO CHEMISTRY & BL OOD GAS ORDERABLES [facility] [address] [place] [address] * (ABNORMAL) TSH (12/24/2016 14:37 EDT) TSH 50.90(H) 0.47 - 4.68 uIU/ml 12/24/2016 18:00 EDT [facility] Comment:New methodology in u se 08/26/16. Blood specimen (specimen) BLOOD SPECIMEN / Unknown 12/24/2016 14:37 EDT 12/24/2016 16:14 EDT Carlos Nuñez DO CHEMISTRY & BL OOD GAS ORDERABLES [facility] [address] [place] [address] documented in this encounter Visit Diagnoses Diagnosis Hypothyroidism, postablative- Primary Other postablative hypothyroidism documented in this encounter Care Teams Rug Cutter Relationship Specialty Start Date End Date Thea Santamaria MD [address] [place] [id number] PCP - General 11/25/16 05/25/17 documented as of this encounter
--- OUTSIDE RECORDS SUMMARY | 2023-12-04 20:20 | XMS_ITS | Encounter Summary ---
Author Organization [facility] Address [address] [place] [address] Care Team Providers Care Clearing Distribution Clerk Name Role Phone Talya Robbins MD Primary Care Provider Maureen vailable Reason for Visit * Reason Comments Contraception Nexplanon removal Encounter Details Date Type Department Care Team (Late st Contact Info) Description 01/04/2014 8:30 EST Office Visit [facility] OBGYN Services - [facility] [address] [place], [place] [address] Ariel Soto MD MSc Encounter for Nexplanon removal (Primary Dx) Social History Tobacco Use Types Packs/Day Years Used Date Smoking Tobacco: Former Cigarettes 2 5 1 04/01/2005 - 01/29/2011 Cigars Smokeless Tobacco: Never Alcohol Use Standard Drinks/Week Comments No 0 (1 standard drink = 0.6 oz pur e alcohol) Sex and Gender Information Value Date Recorded Sex Assigned at Not on file Gender Identity Female 03/02/2019 11:17 EST Sexual Orientation Not on file documented as of this encounter Last Filed Vital Signs Vital Sign Reading Time Taken Comments Blood Pressure 120/82 01/04/2014 0831 EST Pulse - - Temperature - - Respiratory Rate - - Oxygen Saturation - - Inhaled Oxygen Concentration - - Weight 77.8 kg (171 lb 9.6 oz) 01/04/[address] Height - - Body Mass Index 30.89 10/06/2013 1029 EDT documented in this encounter Procedure Notes * Ariel Soto MD - 01/04/2014 0902 EST Procedure: Procedures Procedure Note: Nexplanon Removal Procedure explained and consent obtained. Implant palpated. Lidocaine 1% infiltrated beneath the end of implant closest to elbow in right arm. Longitudinal incision 2 mm in length made at end of implant with #11 blade. Incision probed with curved hemostat. Implant extracted intact. Incision closed with steri-strips and pressure dressing applied. Ariel Soto MD documented in this encounter Plan of Treatment Not on file documented as of this encounter Visit Diagnoses Diagnosis Encounter for Nexplanon removal- Primary Surveillance of previously prescribed implantable subdermal contraceptive documented in this encounter Discontinued Medications Medication Sig Discontinue Reason Start Date End Da te ESTROGENS, CONJUGATED (CONJUGATED ESTROGENS ORAL) Take 1 Tab by mouth daily. Dosage unknown Discontinued by another clinician 01/04/2014 documented as of this encounter Care Teams Clearing Distribution Clerk Relationship Specialty Start Date End Date Talya Robbins MD PCP - General 01/27/13 09/15/15 documented as of this encounter
--- OUTSIDE RECORDS SUMMARY | 2023-12-04 20:20 | XMS_ITS | Encounter Summary ---
Author Organization [facility] Address [address] [place] [address] Care Team Providers Care Medical Observer Name Role Phone Talya Robbins MD Primary Care Provider Maureen Jack Larson MD Primary Care Provider Unavailable Ariana Mcghee MD Primary Care Provider [phone] Reason for Visit * Reason Onset Date Comments Results 04/13/2014 Encounter Details Date Type Department Care Team (Late st Contact Info) Description 04/13/2014 Telephone [facility] Endocrinology - [facility] [address] [place] [address] Carlos Nuñez DO [address] [facility] [address] [place] [address] Results Social History Tobacco Use [...] Telephone Encounter - Carlos Nuñez DO - 04/13/2014 1146 EST Please contact patient via phone. I have reviewed the patient's most [facility]13[facility]14 . Advise patient that TSH is now normal. Free T4 slightly elevated. Would continue current dose for now. Recheck labs in 8 weeks documented in this encounter Plan of Treatment Not on file documented as of this encounter Visit Diagnoses Not on filedocumented in this encounter Care Teams Medical Observer Relationship Specialty Start Date End Date Talya Robbins MD PCP - General 01/27/13 09/15/15 Jack Younger MD PCP - General 09/16/15 09/30/15 Ariana Mcghee MD PCP - General 10/01/15 06/17/16 documented as of this encounter
--- OUTSIDE RECORDS SUMMARY | 2023-12-04 20:20 | XMS_ITS | Encounter Summary ---
Author Organization [facility] Address [address] [place] [address] Care Team Providers Care Dormitory Supervisor Name Role Phone Talya Robbins MD Primary Care Provider Maureen vailable Reason for Visit * Reason Comments Gynecologic Exam Encounter Details Date Type Department Care Team (Latest Contact Info) Description 09/25/2014 14:30 EDT Office Visit [facility] OBGYN Services - [facility] [address] [place] [address] Ariel Soto MD MSc Routine gynecological examination (Primary Dx) Discharge Disposition: Auto Discharge Social [...] Sign Reading Time Taken Comments Blood Pressure 100/60 09/25/20142020 EDT Pulse - - Temperature - - Respiratory Rate - - Oxygen Saturation - - Inhaled Oxygen Concentration - - Weight 76.2 kg (168 lb) 09/25/20142020 EDT Height 158.8 cm (5' 2.52) 09/25/20142020 EDT Body Mass Index 30.22 09/25/20142020 EDT documented in this encounter Discharge Diagnoses Diagnosis V72.31 ROUTINE GYNECOLOGICAL EXAMINATION[ICD-9-CM] documented in this encounter Discharge Disposition Disposition Code Departure Means Destination Auto Discharge documented in this encounter Progress Notes * Ariel Soto MD - 09/25/20142022 EDT S. 18yo G0 with no complaints. Not using any contraception and wouldn't mind if she got . O. Neck thyroid ok Breasts no masses Ext genital within normal limits Vagina within normal limits cx ok (pap yes/hpv reflex/gc-ct yes) Uterus small mobile ant Adnexae no masses Rectovaginal deferred A. Nl exam P. Return in one year. Next pap in 3 yrs. Ariel Soto MD documented in this encounter Plan of Treatment Not on file documented as of this encounter Visit Diagnoses Diagnosis Routine gynecological examination- Primary documented in this encounter Care Teams Dormitory Supervisor Relationship Specialty Start Date End Date Talya Robbins MD PCP - General 01/27/13 09/15/15 documented as of this encounter
--- OUTSIDE RECORDS SUMMARY | 2023-12-04 20:20 | XMS_ITS | Encounter Summary ---
Author Organization [facility] Address [address] [place] [address] Care Team Providers Care Readiness Paraprofessional Name Role Phone Talya Robbins MD Primary Care Provider Maureen vailable Reason for Visit * Reason Onset Date Comments Results 12/18/2013 Returning Call 12/26/2013 Encounter Details Date Type Department Care Team (Late st Contact Info) Description 12/18/2013 Telephone [facility] Endocrinology - [facility] [address] [place] [address] Carlos Nuñez, [address] [facility] [address] [place] [address] Results; Returning Call Social History Tobacco Use Types [...] on file documented as of this encounter Ordered Prescriptions Prescription Sig Dispensed Refills Start Date End Da te levothyroxine (SYNTHROID) 150 mcg tabletIndications:Other postablative hypothyroidism,Status post radioactive iodine thyroid ablation Take 1 Tab by mouth daily. 90 Tab 3 12/27/2013 02/08/2014 documented in this encounter Miscellaneous Notes * Telephone Encounter - Shannan Moffett RN - 12/27/2013 0857 EDT Reviewed lab results and plan with patient. Medication dose currently 137mcg. New rx for synthroid 150mcg sent to pharmacy. Retest labs in [address] Lab order in place. Patient reports no weight change recently that she is aware of. No problems with constipation or diarrhea. Patient does report symptoms of both hypo/hyper thyroidism. The patient complains of hair loss, tachycardia, irritability, palpitations, fatigue, anxiousness and depression. We reviewed symptoms of thyroid problems in detail. Patient verbalized understanding. No barriers to learning noted. * Telephone Encounter - Amelia Cheney - 12/26/2013 1412 EDT Pt mother calling back the nurse regarding her daughter results * Telephone Encounter - Carlos Nuñez DO - 12/18/2013 0814 EDT Please contact patient via phone. [facility] Advise patient that TSH remains elevated with normal Free T4. Increase levothyroxine to 150 mcg daily. Repeat labs in 6 weeks. Review signs and symptoms of over replacement with patient via phone. documented in this encounter Plan of Treatment Not on file documented as of this encounter Visit Diagnoses Diagnosis Other postablative hypothyroidism- Primary Status post radioactive iodine thyroid ablation Other postprocedural status documented in this encounter Discontinued Medications Medication Sig Discontinue Reason Start Date End Da te levothyroxine (SYNTHROID) 137 mcg tablet Take on tablet by mouth daily. Dose adjustment 02/01/2013 12/27/2013 documented as of this encounter Care Teams Readiness Paraprofessional Relationship Specialty Start Date End Date Talya Robbins MD PCP - General 01/27/13 09/15/15 documented as of this encounter
--- OUTSIDE RECORDS SUMMARY | 2023-12-04 20:20 | XMS_ITS | Encounter Summary ---
Author Organization [facility] Address [address] [place] [address] Care Team Providers Care Medical Radiation Therapist Name Role Phone Talya Robbins MD Primary Care Provider Maureen vailable Reason for Visit * Reason Comments Graves' Disease Encounter Details Date Type Department Care Team (Latest Contact Info) Description 10/06/2013 10:20 EDT Office Visit [facility] Endocrinology - [address] [id number] Carlos Nuñez, [address] [facility] [address] [place] [address] Status post radioactive iodine thyroid ablation (Primary Dx); Graves' disease; Other postablative hypothyroidism Social History Tobacco Use Types Packs/Day Years [...] Sign Reading Time Taken Comments Blood Pressure 102/70 10/06/2013 1029 EDT Pulse 60 10/06/2013 1029 EDT Temperature - - Respiratory Rate - - Oxygen Saturation - - Inhaled Oxygen Concentration - - Weight 76.7 kg (169 lb) 10/06/2013 1029 EDT Height 158.8 cm (5' 2.5) 10/06/2013 1029 EDT Body Mass Index 30.42 10/06/2013 1029 EDT documented in this encounter Discharge Diagnoses Diagnosis V45.87 TRANSPLANTED ORGAN REMOVAL STATUS[ICD-9-CM] 242.00 TOX DIF GOITER NO CRISIS[ICD-9-CM] 244.1 POSTABLAT HYPOTHYR NEC[ICD-9-CM] documented in this encounter Patient Instructions * Patient Instructions* Carlos Nuñez DO - 10/06/2013 10:[address] Nuñez will inform you of your lab results by phone or mail within 2 weeks. If you do not receive your test results after two weeks please contact the office. 2. Call with questions, concerns or change in symptoms. 3. Follow-up in one year 4. Call with change in vision documented in this encounter Progress Notes * Carlos uNñez DO - 10/06/2013 1040 EDT SUBJECTIVE:Tiny Cervantes is a 18 y.o. femalewho presents to the endocrine clinic today for further evaluation and management of post ablative hypothyroidism secondary to definitive therapy with radioactive iodine for hyperthyroidism secondary to Graves' disease.. Patient is currently taking levo thyroxine 137 mcg daily. Patient reports compliance with their daily medication. The patient is taking their medication first thing in the morning on empty stomach. On interview today, patient deniesfatigue lack of energy or excessive tiredness. No significant changes in their weight or bowel habits. Mood is stable. No clear signs or symptoms of over replacement such as palpitations, hyperdefication, unintentional weight loss, tremor, insomnia, heat intolerance. She does report that she feels she is losing more hair recently and also notes some occasional cold intolerance. PAST MEDICAL HISTORY: Reviewed as documented in the electronic medical record. MEDICATIONS: Reviewed as documented in the electronic medical record. ALLERGIES: Reviewed as documented in the electronic medical record. OBJECTIVE: Physical exam: Vitals: BP 102/70 Pulse 60 Ht 158.8 cm (62.5) Wt 76.658 kg (169 lb) BMI 30.4 kg/m2 General: The patient is a 18 y.o. female in no acute distress. HEENT: Eyes: Mouth: Mucous membranes moist and pink in color. No oral lesions seen. Neck: Supple without adenopathy. No JVD or carotid bruits appreciated. Thyroid #####. Respiratory: Lungs are clear to auscultation bilaterally. [...] oriented x3. Denies depression anxiety. LABORATORY DATA: 1. TSH to be drawn today. ASSESSMENT: 1. 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 Patient transitioned to the hypothyroid state in 2012. The patient appears clinically euthyroid. Will obtain TSH free T4 and will contact patientwith those results. Any adjustments in their thyroid hormone replacement will be made based on laboratory data. Patient was instructed to call with any questions or concerns or changes in symptoms. Follow up with me in one year. PLAN: 1. Continue current dose of thyroid hormone replacement. 2. Dr. Nuñez will inform you of your lab results by phone or mail within 2 weeks. If you do not receive your test results after two weeks please contact the office. 3. Call with questions, concerns or change in symptoms. 4. Followup in one year. documented in this encounter Plan of Treatment Not on file documented as of this encounter Visit Diagnoses Diagnosis Status post radioactive iodine thyroid ablation- Primary Other postprocedural status Graves' disease Toxic diffuse goiter without mention of thyrotoxic crisis or storm Other postablative hypothyroidism documented in this encounter Historical Medications * This list may reflect changes made after this encounter. Medication Sig Dispensed Refills Start Date End Date valACYclovir (VALTREX) 500 mg tabletIndications:Status post radioactive iodine thyroid ablation,Graves' disease,Other postablative hypothyroidism Take 500 mg by mouth daily as needed . 03/20/2014 added in this encounter Care Teams Medical Radiation Therapist Relationship Specialty Start Date End Date Talya Robbins MD PCP - General 01/27/13 09/15/15 documented as of this encounter
--- OUTSIDE RECORDS SUMMARY | 2023-12-04 20:20 | XMS_ITS | Encounter Summary ---
Author Organization [facility] Address [address] [place] [address] Care Team Providers Care Informal Waiter/Waitress Name Role Phone Talya Robbins MD Primary Care Provider Maureen Jack Larson MD Primary Care Provider Unavailable Ariana Mcghee MD Primary Care Provider [phone] Reason for Visit * Reason Onset Date Comments Results 10/03/2014 Encounter Details Date Type Department Care Team (Late st Contact Info) Description 10/03/2014 Telephone [facility] Endocrinology - [address] [address] Chacha Guzman, RN Results Social History Tobacco Use Types [...] Telephone Encounter - Carlos Nuñez DO - 10/03/2014 1015 EDT Labs WNL. No change in dose * Telephone Encounter - Chacha Guzman RN - 10/03/2014 0901 EDT Phone call to [place] (talked to Gricelda (her mom) Informed lab WNL, no change in dose. She will pass message along to daughter. Verbalizes understanding with no barriers. Received faxed results from [facility] Resulted on 10/01/14 TSH-3.46 (N=[id number]) FT4-1.33 (N=0.78-2.19) documented in this encounter Plan of Treatment Not on file documented as of this encounter Visit Diagnoses Not on filedocumented in this encounter Care Teams Informal Waiter/Waitress Relationship Specialty Start Date End Date Talya Robbins MD PCP - General 01/27/13 09/15/15 Jack Younger MD PCP - General 09/16/15 09/30/15 Ariana Mcghee MD PCP - General 10/01/15 06/17/16 documented as of this encounter
--- OUTSIDE RECORDS SUMMARY | 2023-12-04 20:20 | XMS_ITS | Encounter Summary ---
Author Organization [facility] Address [address] [place] [address] Care Team Providers Care Body Make Up Artist Name Role Phone Talya Robbins MD Primary Care Provider Maureen vailable Encounter Details Date Type Department Care Team (Latest Contact Info) Description 12/15/2013 13:00 EDT - 12/15/2013 23:59 EDT Hospital Encounter [facility] [address] [place] [address] Unknown, Provider, Discharge Disposition: Auto Discharge Social History Tobacco [...] as needed. Reported on 07/03/2016 05/15/2010 03/19/2017 ESTROGENS, CONJUGATED (CONJUGATED ESTROGENS ORAL) Take 1 Tab by mouth daily. Dosage unknown 01/04/2014 Etonogestrel (IMPLANON) 68 mg Impl 68 mg by Subdermal route once. 68 mg 0 01/01/2011 01/01/2014 levothyroxine (SYNTHROID) 137 mcg tablet Take on tablet by mouth daily. 90 Tab 3 02/01/2013 12/27/2013 valACYclovir (VALTREX) 500 mg tabletIndications:Status post radioactive iodine thyroid ablation,Graves' disease,Other postablative hypothyroidism Take 500 mg by mouth daily as needed . 03/20/2014 documented as of this encounter Discharge Disposition Disposition Code Departure Means Destination Auto Discharge Home documented in this encounter Plan of Treatment Not on file documented as of this encounter Visit Diagnoses Not on filedocumented in this encounter Care Teams Body Make Up Artist Relationship Specialty Start Date End Date Talya Robbins MD PCP - General 01/27/13 09/15/15 documented as of this encounter
--- OUTSIDE RECORDS SUMMARY | 2023-12-04 20:20 | XMS_ITS | Encounter Summary ---
Author Organization [facility] Address [address] [place] [address] Care Team Providers Care Nail Artist Name Role Phone Talya Robbins MD Primary Care Provider Maureen vailable Reason for Visit * Reason Onset Date Comments Results 02/05/2014 Encounter Details Date Type Department Care Team (Late st Contact Info) Description 02/05/2014 Orders Only [address] [address] Talya Robbins MD Social History Tobacco Use Types Packs/Day Years [...] Priority Date/Time Associated Diagnosis Comments TSH Routine 02/02/2014 T4 FREE Routine 02/02/2014 documented in this encounter Results * TSH (02/02/2014) TSH, External 8.47 [facility] Blood specimen (specimen) 02/02/2014 Historical Provider CHEMISTRY & BLOOD GAS ORDERABLES [facility] * T4 FREE (02/02/2014) Free T4, External 1.29 [facility] Blood specimen (specimen) 02/02/2014 Historical Provider CHEMISTRY & BLOOD GAS ORDERABLES Performing Organization Address City/[facility] Co de Phone Number [facility] documented in this encounter Visit Diagnoses Not on filedocumented in this encounter Care Teams Nail Artist Relationship Specialty Start Date End Date Talya Robbins MD PCP - General 01/27/13 09/15/15 documented as of this encounter
--- OUTSIDE RECORDS SUMMARY | 2023-12-04 20:20 | XMS_ITS | Encounter Summary ---
Author Organization [facility] Address [address] [place] [address] Care Team Providers Care Anthropology Faculty Member Name Role Phone Talya Robbins MD Primary Care Provider Maureen vailable Reason for Visit * Reason Onset Date Comments Medications Refill 10/19/2014 Encounter Details Date Type Department Care Team (Late st Contact Info) Description 10/19/2014 Refill [facility] - [facility] [address] [place], [place] [address] Ariel Soto MD MSc Medications Refill Social [...] End Da te valACYclovir (VALTREX) 500 mg tablet Take 1 Tab by mouth 2 times daily 6 Tab 0 10/19/2014 11/27/2014 documented in this encounter Miscellaneous Notes * Telephone Encounter - Gricelda Mason RN - 10/19/2014 0834 EDT Medication Refill Request Patient Request: per My Health Medication/Dose/Route/Frequency: Valtrex 500mg-current outbreak Pt completely out: ? Last refill 08/22/14 #6/3 refills Last office visit: YRL 09/25/14 Pending visit: none Pharmacy confirmed: yes Amount filled/# of refills: LMCB to clarify if she has used all refills given in 07/2014 Called pharmacy and pt has no further refills, therefore has used 4 courses of Valtrex since 08/22/[address] Lamar: OK'd #6 tabs and advised to contact Dr Soto for possible suppressive therapy. documented in this encounter Plan of Treatment Not on file documented as of this encounter Visit Diagnoses Not on filedocumented in this encounter Discontinued Medications Medication Sig Discontinue Reason Start Date End Da te valACYclovir (VALTREX) 500 mg tablet Take 1 Tab by mouth 2 times daily Reorder 08/22/2014 10/19/2014 documented as of this encounter Care Teams Anthropology Faculty Member Relationship Specialty Start Date End Date Talya Robbins MD PCP - General 01/27/13 09/15/15 documented as of this encounter
--- OUTSIDE RECORDS SUMMARY | 2023-12-04 20:20 | XMS_ITS | Encounter Summary ---
Author Organization [facility] Address [address] [place] [address] Care Team Providers Care Cable Dispatcher Name Role Phone Talya Robbins MD Primary Care Provider Maureen Jack Larson MD Primary Care Provider Unavailable Ariana Mcghee MD Primary Care Provider [phone] Reason for Visit * Reason Onset Date Comments Results 05/10/2013 Encounter Details Date Type Department Care Team (Late st Contact Info) Description 05/10/2013 Telephone [facility] Endocrinology - [facility] [address] [place] [address] Carlos Nuñez, [address] [facility] [address] [place] [address] Results Social History Tobacco Use [...] Telephone Encounter - Chacha Guzman RN - 05/11/2013 0197 EDT Phone call to Tiny Patient informed of Dr. Nuñez's message below. Verbalizes understanding with no barriers. * Telephone Encounter - Carlos Nuñez DO - 05/10/2013 1008 EDT Please contact patient via phone. [facility] . Advise patient that her TSH is WNL at 3.33. If she is thinking about becoming we would want her TSH to be below 2 and I would recommend an increase in dose to 150 mcg daily with recheck of TSH and Free T4 in 6 weeks documented in this encounter Plan of Treatment Not on file documented as of this encounter Visit Diagnoses Not on filedocumented in this encounter Care Teams Cable Dispatcher Relationship Specialty Start Date End Date Talya Robbins MD PCP - General 01/27/13 09/15/15 Jack Younger MD PCP - General 09/16/15 09/30/15 Ariana Mcghee MD PCP - General 10/01/15 06/17/16 documented as of this encounter
--- OUTSIDE RECORDS SUMMARY | 2023-12-04 20:20 | XMS_ITS | Encounter Summary ---
Author Organization [facility] Address [address] [place] [address] Care Team Providers Care Manager Msw Name Role Phone Sugar Lacy MD Primary Care Provider Reason for Visit * Reason Onset Date Comments Menorrhagia 11/02/2012 Encounter Details Date Type Department Care Team (Late st Contact Info) Description 11/02/2012 Telephone [facility] - [facility] [address] [place], [place] [id number] mUa Jacobs RN Menorrhagia Social History Tobacco Use Types Packs/Day Years [...] encounter Miscellaneous Notes * Telephone Encounter - Uma Jacobs RN - 11/02/2012 7657 EDT Call from mother. She reports Tiny has experienced a heavy menstrual cycle with clots. Mom states Tiny recently seen for thyroid issues and has questions about menstrual cycle and thyroid issues. Appt made for tomorrow with Dr. Soto. documented in this encounter Plan of Treatment Not on file documented as of this encounter Visit Diagnoses Not on filedocumented in this encounter Care Teams Manager Msw Relationship Specialty Start Date End Date Sugar Lacy MD [address] [place] [address] PCP - General 02/27/10 01/26/13 documented as of this encounter
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
--- OUTSIDE RECORDS SUMMARY | 2023-12-04 20:20 | XMS_ITS | Encounter Summary ---
Author Organization [facility] Address [address] [place] [address] Care Team Providers Care Despatch Clerk Name Role Phone Talya Robbins MD Primary Care Provider Maureen vailable Encounter Details Date Type Department Care Team (Latest Contact Info) Description 06/28/2014 10:55 EDT - 06/28/2014 23:59 EDT Hospital Encounter [facility] [address] [place] [address] Unknown, Provider, Discharge Disposition: Auto Discharge Social [...] Reported on 07/03/2016 05/15/2010 03/19/2017 levothyroxine (SYNTHROID) 150 mcg tabletIndications:Other postablative hypothyroidism Take 1 Tab by mouth daily 90 Tab 3 04/27/2014 07/16/2014 levothyroxine (SYNTHROID) 175 mcg tabletIndications:Other postablative hypothyroidism Take 1 Tab by mouth daily 90 Tab 3 07/16/2014 12/24/2015 valACYclovir (VALTREX) 500 mg tablet Take 1 Tab by mouth 2 times daily. 6 Tab 3 03/20/2014 08/21/2014 documented as of this encounter Discharge Disposition Disposition Code Departure Means Destination Auto Discharge Home documented in this encounter Plan of Treatment Not on file documented as of this encounter Visit Diagnoses Not on filedocumented in this encounter Care Teams Despatch Clerk Relationship Specialty Start Date End Date Talya Robbins MD PCP - General 01/27/13 09/15/15 documented as of this encounter
--- OUTSIDE RECORDS SUMMARY | 2023-12-04 20:20 | XMS_ITS | Encounter Summary ---
Author Organization [facility] Address [address] [place] [address] Care Team Providers Care Hand Stripper Name Role Phone Talya Robbins MD Primary Care Provider Maureen vailable Reason for Visit * Reason Onset Date Comments Results 02/05/2014 Returning Call 02/06/2014 to nurse Encounter Details Date Type Department Care Team (Late st Contact Info) Description 02/05/2014 Telephone [facility] Endocrinology - [facility] [address] [place] [address] Carlos Nuñez, [address] [facility] [address] [place] [address] Results; Returning Call (to nurse ) Social History Tobacco Use Types Packs/Day Years [...] Tab by mouth daily. 90 Tab 3 02/08/2014 04/27/2014 documented in this encounter Miscellaneous Notes * Addendum Note - Adrian Lincoln - 02/08/2014 1258 ESTAddended by: LINCOLNADRIAN Ramirez on: 02/08/2014 12:58 Modules accepted: Orders * Telephone Encounter - LincolnAdrian ramirez - 02/08/2014 1257 EST I left a detailed message on the patient's identified voicemail re: plan. Lab order mailed to patient, new rx sent to pharmacy. Patient will call back if any questions or problems. * Telephone Encounter - Carlos Nuñez DO - 02/08/2014 1122 EST Increase to 175 mcg daily. Repeat blood work in 6 weeks * Telephone Encounter - Adrian Lincoln - 02/08/2014 1054 EST Telephone call to patient, she has been feeling very tired, has constipation, some trouble swallowing medications. She isn't sure if she has had any weight change. She sleeps ok. She has not noticed any other symptoms of hypothyroidism. Her periods are normal. She does take the medication first thing in the am every am, nothing to eat for at least 30 min. * Telephone Encounter - LincolnAdrian - 02/06/2014 1324 EST Called mother back. I need to speak to her to see how she is feeling. Mom will have her try back later. * Telephone Encounter - Victorina Cannon - 02/06/2014 1314 EST Mother called, returning Adrian's call. States that pt is unable to return call due to cell coverage. * Telephone Encounter - Adrian Lincoln - 02/06/2014 1113 EST Left message to call back. * Telephone Encounter - Carlos Nuñez DO - 02/05/2014 1346 EST Please contact patient via phone. [facility] Advise patient that her TSH was elevated at 8.47 with a normal Free T4. Confirmpt taking medication regularly and properly. Does patient have any symptoms of hypothyroidism? documented in this encounter Plan of Treatment Not on file documented as of this encounter Results * TSH (04/13/2014 8:49 EST) TSH 0.38 0.35 - 5.00 uIU/ml 04/13/2014 10:31 EST [facility] Blood specimen (specimen) BLOOD SPECIMEN / Unknown 04/13/2014 8:49 EST 04/13/2014 9:12 EST Carlos Nuñez DO CHEMISTRY & BL OOD GAS ORDERABLES Performing Organization Address [facility] Co de Phone Number [facility] [address] [place] [address] * (ABNORMAL) T4 FREE (04/13/2014 8:49 EST) Free T4 2.0(H) 0.8 - 1.4 ng/dl 04/13/2014 10:31 EST [facility] Blood specimen (specimen) BLOOD SPECIMEN / Unknown 04/13/2014 8:49 EST 04/13/2014 9:12 EST Carlos Nuñez DO CHEMISTRY & BL OOD GAS ORDERABLES Performing Organization Address City/[facility] Co de Phone Number [facility] [address] [place] [address] documented in this encounter Visit Diagnoses Diagnosis Other postablative hypothyroidism- Primary documented in this encounter Discontinued Medications Medication Sig Discontinue Reason Start Date End Da te levothyroxine (SYNTHROID) 150 mcg tabletIndications:Other postablative hypothyroidism,Status post radioactive iodine thyroid ablation Take 1 Tab by mouth daily. Dose adjustment 12/27/2013 02/08/2014 documented as of this encounter Care Teams Hand Stripper Relationship Specialty Start Date End Date Talya Robbins MD PCP - General 01/27/13 09/15/15 documented as of this encounter
--- OUTSIDE RECORDS SUMMARY | 2023-12-04 20:20 | XMS_ITS | Encounter Summary ---
Author Organization [facility] Address [address] [place] [address] Care Team Providers Care Rigging Slinger Name Role Phone Talya Robbins MD Primary Care Provider Maureen vailable Encounter Details Date Type Department Care Team (Late st Contact Info) Description 04/13/2014 Phlebotomy Only [facility] [address] [place] [address] Manager Relocation, Outpatient Other postablative hypothyroidism (Primary Dx) Social History Tobacco Use Types [...] Priority Date/Time Associated Diagnosis Comments TSH Routine 04/13/2014 8:49 EST Other postablative hypothyroidism T4 FREE Routine 04/13/2014 8:49 EST Other postablative hypothyroidism documented in this encounter Results * TSH (04/13/2014 8:49 EST) TSH 0.38 0.35 - 5.00 uIU/ml 04/13/2014 10:31 EST [facility] Blood specimen (specimen) BLOOD SPECIMEN / Unknown 04/13/2014 8:49 EST 04/13/2014 9:12 EST Carlos Nuñez DO CHEMISTRY & BL OOD GAS ORDERABLES Performing Organization Address [facility] Co de Phone Number [facility] [address] [place] [address] * (ABNORMAL) T4 FREE (04/13/2014 8:49 EST) Free T4 2.0(H) 0.8 - 1.4 ng/dl 04/13/2014 10:31 EST [facility] Blood specimen (specimen) BLOOD SPECIMEN / Unknown 04/13/2014 8:49 EST 04/13/2014 9:12 EST Carlos Nuñez DO CHEMISTRY & BL OOD GAS ORDERABLES Performing Organization Address City/[facility] Co de Phone Number [facility] [address] [place] [address] documented in this encounter Visit Diagnoses Diagnosis Other postablative hypothyroidism- Primary documented in this encounter Care Teams Rigging Slinger Relationship Specialty Start Date End Date Talya Robbins MD PCP - General 01/27/13 09/15/15 documented as of this encounter
--- OUTSIDE RECORDS SUMMARY | 2023-12-04 20:20 | XMS_ITS | Encounter Summary ---
Author Organization [facility] Address [address] [place] [address] Care Team Providers Care Stuffing Machine Operator Name Role Phone Sugar Lacy MD Primary Care Provider [phone] Encounter Details Date Type Department Care Team (Late st Contact Info) Description 2012 9:50 EDT - 2012 9:51 EDT Hospital Encounter [facility] - [address] [address] Antonio Varela MD Discharge Disposition: Home or Self Care Social [...] Sig Dispensed Refills Start Date End Date ALBUTEROL INHL Inhale as directed as needed. Reported on 07/03/2016 05/15/2010 03/19/2017 Etonogestrel (IMPLANON) 68 mg Impl 68 mg by Subdermal route once. 68 mg 0 01/01/2011 01/01/2014 valACYclovir (VALTREX) 500 mg tablet Take 500 mg by mouth as needed. 08/29/2013 documented as of this encounter Discharge Disposition Disposition Code Departure Means Destination Home or Self Care documented in this encounter Plan of Treatment Not on file documented as of this encounter Visit Diagnoses Not on filedocumented in this encounter Care Teams Stuffing Machine Operator Relationship Specialty Start Date End Date Sugar Lacy MD [address] [place] [address] PCP - General 02/27/10 01/26/13 documented as of this encounter
--- OUTSIDE RECORDS SUMMARY | 2023-12-04 20:20 | XMS_ITS | Encounter Summary ---
Author Organization [facility] Address [address] [place] [address] Care Team Providers Care Green Building Energy Engineer Name Role Phone Sugar Lacy MD Primary Care Provider Encounter Details Date Type Department Care Team (Late st Contact Info) Description 12/14/2012 Phlebotomy Only [facility] [address] [place] [address] Senior Electrical Designer, Outpatient Grave's disease; Status post radioactive iodine thyroid ablation Social [...] Priority Date/Time Associated Diagnosis Comments TSH Routine 12/14/2012 15:53 EDT Grave's disease Status post radioactive iodine thyroid ablation T4 FREE Routine 12/14/2012 15:53 EDT Grave's disease Status post radioactive iodine thyroid ablation documented in this encounter Results * (ABNORMAL) T4 FREE (12/14/2012 15:53 EDT) Free T4 0.4(L) 0.8 - 1.8 ng/dL [facility] Blood specimen (specimen) 12/14/2012 15:53 EDT 12/14/2012 16:27 EDT Carlos Nuñez DO CHEMISTRY & BL OOD GAS ORDERABLES Performing Organization Address [facility] Co de Phone Number [facility] [address] [place] [address] * (ABNORMAL) TSH (12/14/2012 15:53 EDT) TSH 45.95(H) 0.35 - 5.00 uIU/ml [facility] Blood specimen (specimen) 12/14/2012 15:53 EDT 12/14/2012 16:27 EDT Carlos Nuñez DO CHEMISTRY & BL OOD GAS ORDERABLES Performing Organization Address [facility] de Phone Number [facility] [address] [place] [address] documented in this encounter Visit Diagnoses Diagnosis Grave's disease Toxic diffuse goiter without mention of thyrotoxic crisis or storm Status post radioactive iodine thyroid ablation Other postprocedural status documented in this encounter Care Teams Green Building Energy Engineer Relationship Specialty Start Date End Date Sugar Lacy MD [address] [place] [phone] PCP - General 02/27/10 01/26/13 documented as of this encounter
--- OUTSIDE RECORDS SUMMARY | 2023-12-04 20:20 | XMS_ITS | Encounter Summary ---
Author Organization [facility] Address [address] [place] [address] Care Team Providers Care A Class Lineman Name Role Phone Talya Robbins MD Primary Care Provider Maureen vailable Reason for Visit * Reason Onset Date Comments Depression 10/10/2014 Encounter Details Date Type Department Care Team (Late st Contact Info) Description 10/10/[address] [address] Talya Robbins MD Depression Social History Tobacco Use Types Packs/Day [...] encounter Miscellaneous Notes * Telephone Encounter - Efren Ny - 10/10/2014 1211 EDT Patient's mom called asking to schedule an appointment on behalf of her daughter. States that patient recently lost her best friend to cystic fibrosis and is having other stressors as well. Has been on medication in the past. Mom has number to Crisis and that patient is aware that she can call them at any time. States that she does not have thoughts of self harm. Appointment scheduled for 8/27/15. Patient works 2 jobs and difficult for her to find time for appointments. Call office sooner with any concerns. Mom verbalized understanding of these instructions given and agrees with the plan. No barriers to learning. * Telephone Encounter - Enriqueta Grossman - 10/10/2014 1472 EDT Patient's mother calling to get patient scheduled due to depression and recent loss of a friend with patient wishing to get back on an antidepressant. No appointments currently available. Please advise. documented in this encounter Plan of Treatment Not on file documented as of this encounter Visit Diagnoses Not on filedocumented in this encounter Care Teams A Class Lineman Relationship Specialty Start Date End Date Talya Robbins MD PCP - General 01/27/13 09/15/15 documented as of this encounter
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
--- OUTSIDE RECORDS SUMMARY | 2023-12-04 20:20 | XMS_ITS | Encounter Summary ---
Author Organization [facility] Address [address] [place] [address] Care Team Providers Care Cut File Clerk Name Role Phone Sugar Lacy MD Primary Care Provider Reason for Visit * Reason Onset Date Comments Results 12/15/2012 Encounter Details Date Type Department Care Team (Late st Contact Info) Description 12/15/2012 Telephone [facility] Endocrinology - [facility] [address] [place] [address] Carlos Nuñez DO [address] [facility] [address] [place] [address] Results Social History Tobacco Use [...] Start Date End Da te levothyroxine (SYNTHROID) 125 mcg tabletIndications:Status post radioactive iodine thyroid ablation Take 1 Tab by mouth daily. 90 Tab 3 12/16/2012 02/01/2013 documented in this encounter Miscellaneous Notes * Telephone Encounter - Cassie Tena - 12/16/2012 1258 EDT Spoke with Tiny: states she's feeling fine. I explained proper admin of levothyroxine. I will send script to [facility]. She will have repeat labs in 6 weeks at [facility]. Pt verbalized understanding and agreement with plan. Pt will call with any further questions. * Telephone Encounter - Carlos Nuñez DO - 12/15/2012 0709 EDT Please contact patient via phone. I have [facility]. Advise patient that she has transitioned to hypothyroidism after AGUILAR. Start levothyroxine 125 mcg daily. Repeat TSH and Free T4 in 6 weeks. documented in this encounter Plan of Treatment Not on file documented as of this encounter Results * T4 FREE (01/27/2013 11:56 EST) Free T4 1.3 0.8 - 1.8 ng/dL [facility] Blood specimen (specimen) 01/27/2013 11:56 EST 01/27/2013 17:43 EST Carlos Nuñez DO CHEMISTRY & BL OOD GAS ORDERABLES Performing Organization Address [facility] Co de Phone Number [facility] [address] [place] [address] * (ABNORMAL) TSH (01/27/2013 11:56 EST) TSH 6.47(H) 0.35 - 5.00 uIU/ml [facility] Blood specimen (specimen) 01/27/2013 11:56 EST 01/27/2013 17:43 EST Carlos Nuñez DO CHEMISTRY & BL OOD GAS ORDERABLES Performing Organization Address [facility] Co de Phone Number [facility] [address] [place] [address] documented in this encounter Visit Diagnoses Diagnosis Status post radioactive iodine thyroid ablation- Primary Other postprocedural status documented in this encounter Care Teams Cut File Clerk Relationship Specialty [place] [address] [place] [phone] PCP - General 02/27/10 01/26/13 documented as of this encounter
--- OUTSIDE RECORDS SUMMARY | 2023-12-04 20:20 | XMS_ITS | Encounter Summary ---
Author Organization [facility] Address [address] [place] [address] Care Team Providers Care Foreign Languages Professor Name Role Phone Sugar Lacy MD Primary Care Provider Reason for Visit * Reason Comments Follow-up Menstrual Problem irregular menses, cl otts heavy flow, cramping Encounter Details Date Type Department Care Team (Late st Contact Info) Description 11/03/2012 9:00 EDT Office Visit [facility] OBGYN Services - [facility] [address] [place] [address] Ariel Soto MD MSc Menorrhagia (Primary Dx) Social History Tobacco Use Types [...] Reading Time Taken Comments Blood Pressure 100/60 11/03/2012 0908 EDT Pulse - - Temperature - - Respiratory Rate - - Oxygen Saturation - - Inhaled Oxygen Concentration - - Weight - - Height - - Body Mass Index - - documented in this encounter Ordered Prescriptions Prescription Sig Dispensed Refills Start Date End Da te estradiol (ESTRACE) 1 mg tablet Take 1 Tab by mouth daily for 21 days. 21 Tab 3 11/03/2012 11/24/2012 documented in this encounter Progress Notes * Ariel Soto MD - 11/03/2012 0947 EDT S. 17 yo G0 with implanon for 2 yrs. Has begun to have more frequent, heavier bleeding. Recent I-131 ablation for grave's. O. Hgb=11.6 A. Menorrhagia is most likely secondary to atrophy due to implanon P. Will try EE to stabilize endomet. 1mg qd x 21d. Repeat q 2-3 mos if needed. Return in 2013for either nexplanon or some other contraceptive. Ariel Soto MD documented in this encounter Plan of Treatment Not on file documented as of this encounter Procedures Procedure Name Priority Date/Time Associated Diagnosis Comments POCT HEMOGLOBIN Routine 11/03/2012 9:14 EDT Menorrhagia documented in this encounter Results * POCT HEMOGLOBIN (11/03/2012 9:14 EDT) Hemoglobin, POC 11.6 11.6 - 15.2 g/dL POINT OF CARE Blood specimen (specimen) 11/03/2012 9:14 EDT Ariel Soto MD MSc POINT OF CA RE TEST ORDERABLES POINT OF CARE documented in this encounter Visit Diagnoses Diagnosis Menorrhagia- Primary Excessive or frequent menstruation documented in this encounter Historical Medications * This list may reflect changes made after this encounter. Medication Sig Dispensed Refills Start Date End Date ACETAMINOPHEN (TYLENOL ORAL) Take 650 mg by mouth as needed. 03/19/2017 added in this encounter Care Teams Foreign Languages Professor Relationship Specialty Start Date End Date Sugar Lacy MD [address] [place] [id number] PCP - General 02/27/10 01/26/13 documented as of this encounter
--- OUTSIDE RECORDS SUMMARY | 2023-12-04 20:20 | XMS_ITS | Encounter Summary ---
Author Organization [facility] Address [address] [place] [address] Care Team Providers Care Icd 9 Coder Name Role Phone Talya Robbins MD Primary Care Provider Maureen vailable Reason for Visit * Reason Comments Pelvic Pain worse on left Encounter Details Date Type Department Care Team (Late st Contact Info) Description 06/28/2014 10:00 EDT Office Visit [facility] O[facility]YN Services - [facility] [address] [place], [place] [address] Ariel Soto MD MSc Acute pelvic pain, female (Primary Dx); Screening examination for venereal disease Discharge Disposition: Auto Discharge Social History Tobacco [...] Sign Reading Time Taken Comments Blood Pressure 106/72 06/28/2014 1005 EDT Pulse - - Temperature - - Respiratory Rate - - Oxygen Saturation - - Inhaled Oxygen Concentration - - Weight 76.6 kg (168 lb 12.8 oz) 06/28/2014 1005 EDT Height 158.8 cm (5' 2.52) 06/28/2014 1005 EDT Body Mass Index 30.36 06/28/2014 1005 EDT documented in this encounter Discharge Diagnoses Diagnosis 625.9 FEMALE GENITAL SYMPTOMS NOS[ICD-9-CM] documented in this encounter Discharge Disposition Disposition Code Departure Means Destination Auto Discharge documented in this encounter Progress Notes * Ariel Soto MD - 06/28/2014 1036 EDT S. 18 yo G0 with left side pelvic pain for about 4-6 wks. Seen in ED at [facility] on 05/27/14 and told shehad a hemorrhagic cyst on left. Not using contraception. Actively trying to conceive. O. abd soft - no tenderness or rebound; cx ok - GC/CT done; small mobile ant uterus; both ovaries palpated - no cysts appreciated - minimal tenderness A. Probably resolving cyst; no menses for 30 days (may be early PG) P. If no menses by next week do UPT Ariel Soto MD Over 20 mins of this 15 min visit were spent in face to face counseling of the patient and in coordinating care for the problem of pelvic pain. documented in this encounter Plan of Treatment Not on file documented as of this encounter Procedures Procedure Name Priority Date/Time Associated Diagnosis Comments CHLAMYDIA/N. GONORRHOEAE AMPLIFIED NUCLEIC ACID Routine 06/28/2014 10:35 EDT Screening examination for venereal disease documented in this encounter Results * CHLAMYDIA/GC AMPLIFIED (06/28/2014 10:35 EDT) Chlamydia Result No Chlamydia trachomatis DNA detected by heel cutter mediated amplification. 06/29/2014 14:35 EDT [facility] GC Result No Neisseria gonorrhoeae DNA detected by heel cutter mediated amplification. 06/29/2014 14:35 EDT [facility] Specimen of unknown material (specimen) ENDOCERVICAL STRUCTURE / Unknown 06/28/2014 10:35 EDT 06/28/2014 12:21 EDT Ariel Soto MD MSc MICROBIOLOG Y - GENERAL ORDERABLES [facility] [address] [place] [address] documented in this encounter Visit Diagnoses Diagnosis Acute pelvic pain, female- Primary Unspecified symptom associated with female genital organs Screening examination for venereal disease documented in this encounter Care Teams Icd 9 Coder Relationship Specialty Start Date End Date Talya Robbins MD PCP - General 01/27/13 09/15/15 documented as of this encounter
--- OUTSIDE RECORDS SUMMARY | 2023-12-04 20:20 | XMS_ITS | Encounter Summary ---
Author Organization [facility] Address [address] [place] [address] Care Team Providers Care It Business Systems Analyst Name Role Phone Talya Robbins MD Primary Care Provider Maureen vailable Reason for Visit * Reason Onset Date Comments Orders (Non Pre-visit) 04/13/2013 Encounter Details Date Type Department Care Team (Late st Contact Info) Description 04/13/2013 Telephone [facility] Endocrinology - [facility] [address] [place] [address] Carlos Nuñez, [address] [facility] [address] [place] [address] Orders (Non Pre-visit) Social History [...] Telephone Encounter - Shannan Moffett RN - 04/13/2013 1654 EST Orders faxed to [facility] * Telephone Encounter - Denisse Andrade - 04/13/2013 1218 EST Patient hoping orders can be sent to [facility] today as she will be in [facility] tomorrow. Otherwise she will have them done at [facility]. Thanks documented in this encounter Plan of Treatment Not on file documented as of this encounter Visit Diagnoses Not on filedocumented in this encounter Care Teams It Business Systems Analyst Relationship Specialty Start Date End Date Talya Robbins MD PCP - General 01/27/13 09/15/15 documented as of this encounter
--- OUTSIDE RECORDS SUMMARY | 2023-12-04 20:20 | XMS_ITS | Encounter Summary ---
Author Organization [facility] Address [address] [place] [address] Care Team Providers Care Cardiac Nurse Name Role Phone Talya Robbins MD Primary Care Provider Maureen vailable Reason for Visit * Reason Onset Date Comments Medications Refill 12/27/2014 Encounter Details Date Type Department Care Team (Late st Contact Info) Description 12/27/[address] [address] Talya Robbins MD Medications Refill Social History [...] tabletIndications:Depressi on Take 1 Tab by mouth daily 30 Tab 0 12/27/2014 05/10/2015 documented in this encounter Miscellaneous Notes * Telephone Encounter - Keira Montez RN - 12/27/2014918 EDT VINNY 11/27/14 ROV 01/10/15 Last prescription for sertraline given 10/30/14 for 30 with 1 refill. Prescription approved. * Telephone Encounter - Keira Montez RN - 12/27/2014917 EDTFrom: Tiny Varela Pregent To: Talya Robbins MD Sent: 12/27/2014 8:01 EDT Subject: Medication Renewal Request Original authorizing provider: MD Tiny Owens Pregent would like a refill of the following medications: sertraline (ZOLOFT) 25 mg tablet [Talya Robbins MD] Preferred pharmacy: [facility] [place], [place] - [address] [place] [address] Comment: I will run out of my zoloft before I see Dr. Robbins again. documented in this encounter Plan of Treatment Not on file documented as of this encounter Visit Diagnoses Diagnosis Depression- Primary Depressive disorder, not elsewhere classified documented in this encounter Discontinued Medications Medication Sig Discontinue Reason Start Date End Da te sertraline (ZOLOFT) 25 mg tabletIndications:Depress ion Take 1 Tab by mouth daily Reorder 10/30/2014 12/27/2014 documented as of this encounter Care Teams Cardiac Nurse Relationship Specialty Start Date End Date Talya Robbins MD PCP - General 01/27/13 09/15/15 documented as of this encounter
--- OUTSIDE RECORDS SUMMARY | 2023-12-04 20:20 | XMS_ITS | Encounter Summary ---
Author Organization [facility] Address [address] [place] [address] Care Team Providers Care Cigar Making Machine Operator Name Role Phone Sugar Lacy MD Primary Care Provider [phone] Encounter Details Date Type Department Care Team (Latest Contact Info) Description 12/14/2012 15:50 EDT - 12/14/2012 23:59 EDT Hospital Encounter [facility] [address] [place] [address] Unknown, Provider, Carlos Nuñez, DO [address] [facility] [address] [place] [phone] Discharge Disposition: Auto Discharge Social History Tobacco [...] on file documented as of this encounter Discharge Diagnoses Diagnosis 242.00 TOX DIF GOITER NO CRISIS[ICD-9-CM] V45.89 POSTSURGICAL STATES NEC[ICD-9-CM] documented in this encounter Medications at Time [...] on filedocumented in this encounter Care Teams Cigar Making Machine Operator Relationship Specialty Start Date End Date Sugar Lacy MD [address] [place] [phone] PCP - General 02/27/10 01/26/13 documented as of this encounter
--- OUTSIDE RECORDS SUMMARY | 2023-12-04 20:20 | XMS_ITS | Encounter Summary ---
Author Organization [facility] Address [address] [place] [address] Care Team Providers Care Electronic Gaming Device Supervisor Name Role Phone Talya Robbins MD Primary Care Provider Maureen vailable Reason for Visit * Reason Onset Date Comments Results 10/08/2014 Encounter Details Date Type Department Care Team (Late st Contact Info) Description 10/08/2014 Orders Only [facility] Medicine [address] [address] Lillian Cook LPN Social History Tobacco Use Types Packs/Day Years [...] Priority Date/Time Associated Diagnosis Comments TSH Routine 10/01/2014 T4 FREE Routine 10/01/2014 documented in this encounter Results * TSH (10/01/2014) TSH, External 3.46 [facility] Blood specimen (specimen) 10/01/2014 Historical Provider CHEMISTRY & BLOOD GAS ORDERABLES [facility] * T4 FREE (10/01/2014) Free T4, External 1.33 [facility] Blood specimen (specimen) 10/01/2014 Historical Provider CHEMISTRY & BLOOD GAS ORDERABLES Performing Organization Address [facility] Co de Phone Number [facility] documented in this encounter Visit Diagnoses Not on filedocumented in this encounter Care Teams Electronic Gaming Device Supervisor Relationship Specialty Start Date End Date Talya Robbins MD PCP - General 01/27/13 09/15/15 documented as of this encounter
--- OUTSIDE RECORDS SUMMARY | 2023-12-04 20:20 | XMS_ITS | Encounter Summary ---
Author Organization [facility] Address [address] [place] [address] Care Team Providers Care Poultry Hanger Name Role Phone Talya Robbins MD Primary Care Provider Maureen vailable Reason for Visit * Reason Onset Date Comments Appointment Related 11/27/201412/10 Encounter Details Date Type Department Care Team (Late st Contact Info) Description 11/27/2014 Telephone [facility] Endocrinology - [facility] [address] [place] [address] Carlos Nuñez, [address] [facility] [address] [place] [address] Appointment Related (12/10) Social History Tobacco Use Types Packs/Day Years [...] visiting a doctor's office or shopping? No 11/27/2014 Cognitive Status Response Date of Assessm ent Because of a physical, menta l, or emotional condition, does this person have serious difficulty concentrating, remembering, or making decisions? No 11/27/2014 documented as of this encounter Miscellaneous Notes * Telephone Encounter - Lisa Cochran - 11/27/2014 1141 EDT LMOM explaining to PT that there was a change in Dr. Nuñez's schedule and that is why her 12/10/14 appt had to be reschedule but that he had made non-clinic hours available allowing us to reschedule her to be seen on 12/26/14, as currently Dr. Nuñez is scheduling into 2015. * Telephone Encounter - Debora Gimenez - 11/27/2014 0907 EDT Reason for Call: Appointment Related Summary/Symptoms: Per pt, was not informed of bumped 12/10 appt. Pt anxious to see Dr. Nuñez since she has not be seen since 09/2013. Debora Gimenez 11/27/2014 9:07 documented in this encounter Plan of Treatment Not on file documented as of this encounter Visit Diagnoses Not on filedocumented in this encounter Care Teams Poultry Hanger Relationship Specialty Start Date End Date Talya Robbins MD PCP - General 01/27/13 09/15/15 documented as of this encounter
--- OUTSIDE RECORDS SUMMARY | 2023-12-04 20:20 | XMS_ITS | Encounter Summary ---
Author Organization [facility] Address [address] [place] [address] Care Team Providers Care Eight Arm Operator Name Role Phone Talya Robbins MD Primary Care Provider Maureen vailable Reason for Visit * Reason Comments Depression Encounter Details Date Type Department Care Team (Late st Contact Info) Description 11/27/2014 8:15 EDT Office Visit [facility] Family Medicine [address] [address] Unknown, Provider, Jayson Conrad MD [address] [place] [phone] Talya Robbins MD Depression (Primary Dx); Encounter for initial prescription of contraceptive pills; PCR DNA positive for HSV1 Social History [...] Sign Reading Time Taken Comments Blood Pressure 122/78 11/27/2014 0814 EDT Pulse 76 11/27/2014813 EDT Temperature - - Respiratory Rate - - Oxygen Saturation - - Inhaled Oxygen Concentration - - Weight 78.5 kg (173 lb) 11/27/2014813 EDT Height - - Body Mass Index 31.12 10/30/2014 0824 EDT documented in this encounter Functional Status [...] No 11/27/2014 documented as of this encounter Discharge Diagnoses Diagnosis 054.9 HERPES SIMPLEX NOS[ICD-9-CM] V25.01 PRESCRIP-ORAL CONTRACEPT[ICD-9-CM] V73.89 SCREEN VIRAL DISEASE NEC[ICD-9-CM] 311. DEPRESSIVE DISORDER NEC[ICD-9-CM] documented in this encounter Ordered Prescriptions Prescription Sig Dispensed Refills Start Date End Da te drospirenone-ethinyl estradiol (ZACH) 3-0.02 mg per tabletIndications:Encounter for initial prescription of contraceptive pills Take 1 Tab by mouth daily 28 Tab 5 11/27/2014 03/13/2015 valACYclovir (VALTREX) 500 mg tabletIndications:PCR DNA positive for HSV1 Take 1 Tab by mouth 2 times daily 6 Tab 1 11/27/2014 12/31/2014 documented in this encounter Progress Notes * Jayson Conrad MD - 11/29/2014 0858 EDT Attestation statement for patient seen by attending: I saw and examined the patient on the day of this service and agree with the findings and plan of care documented in the resident's/fellow's note. Jayson Conrad MD Family Medicine Attending 11/29/2014 8:58 * Talya Robbins MD - 11/27/2014 0824 EDT Subjective: Patient ID: Tiny Cervantes is an 19 y.o. female. Chief Complaint Patient presents with ??? Depression HPI Depression: Started zoloft 4 weeks ago. Taking 25 mg daily. Has noticed an improvement. Feeling more stable, less irritable. Not drinking as much. Only at night after work. 1 or 2 drinks. Drinking twisted tea. No drinks during the day No thoughts of self harm Is interested in starting contraception. Would like to restart on Zach. Has had nexplanon in the past- removed about 1 year ago and has not been on contraception since then. Regular periods Is having a herpes outbreak. Has a lesion that is in the same area and looks/feels the same as usually does for her. Uses valtrex when has outbreak. Patient Active Problem List Diagnosis ??? Acanthosis nigricans ??? Vitamin D deficiency ??? Status post radioactive iodine thyroid ablation ??? PCR DNA positive for HSV1 ??? Other postablative hypothyroidism ??? Nasal bones, closed fracture ??? Depression ??? Tobacco dependence Past Medical History Diagnosis Date ??? Asthma, [...] 1 Tab by mouth daily 30 Tab 1 No current facility-administered medications on file prior to visit. Allergies Allergen Reactions ??? Hydrocodone Nausea And Vomiting ??? Lorabid [Loracarbef] Nausea And Vomiting ??? Vicodin [Hydrocodone-Acetaminophen] Nausea And Vomiting ??? Yeast Nausea And Vomiting If consumes large amounts will develop N/V Social History Substance Use Topics ??? Smoking status: Current Every Day Smoker -- 2.00 packs/day for 5 years Types: Cigarettes, Cigars Last Attempt to Quit: 01/29/2011 ??? Smokeless tobacco: Never Used ??? Alcohol Use: 0.5 oz/week 1 Not specified per week Review of Systems Constitutional: Negative for fever and chills. Gastrointestinal: Negative for nausea and abdominal pain. Genitourinary: Negative for dysuria. Neurological: Negative for headaches. Psychiatric/Behavioral: Negative for depression, suicidal ideas and substance abuse. The patient isnot nervous/anxious and does not have insomnia. - See HPI Objective: BP 122/78 mmHg Pulse 76 Wt 78.472 kg (173 lb) LMP 10/30/2014 Physical Exam Constitutional: She is oriented to [...] affect. Her behavior is normal. Vitals reviewed. Behavioral Health Screen PHQ-2 Little interest or pleasure in doing things?: not at all Feeling down, depressed, or hopeless?: several days PHQ-2 SUBTOTAL: 1 PHQ-9 Trouble falling or staying asleep, or sleeping too much?: not at all Feeling tired or having little energy?: not at all Poor appetite or overeating?: not at all Feeling bad about yourself - or that you are a failure or have let yourself or your family down?: several days Trouble concentrating on things, such as reading the newspaper or watching TV?: not at all Moving or speaking so slowly that other people have noticed? Or the opposite - being so fidgety or restless that you have been moving around a lot more than usual?: not at all Thoughts that you would be better off , or of hurting yourself in some way?: not at all PHQ-9 TOTAL: 2 PHQ-9 Score Details: Negative for Clinically Significant Depression MARGARET-2 Feeling nervous, anxious, or on edge?: several days Not being able to stop or control worrying?: not at all MARGARET-2 SUBTOTAL: 1 MARGARET-7 Worrying too much about different things?: not at all Having trouble relaxing?: not at all Being so restless that it is hard to sit still?: several days Becoming easily annoyed or irritable?: several days Feeling afraid as if something awful might happen?: not at all MARGARET-7 TOTAL: 3 MARGARET-7 Score Interpretation: Minimal Anxiety Assessment/Plan: Tiny was seen today for depression. Diagnoses and associated orders for this visit: Depression: Significant improvement on sertraline. Continues to see counselor - continue sertraline 25 mg daily Encounter for initial prescription of contraceptive pills: Discussed options. Patient elected for OCP, has been on Zach in the past and wanted to restart this. Advised to use back up method for 2 weeks. 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 Last outbreak 1 month earlier, prior to that had been about 1 year. - valACYclovir (VALTREX) 500 mg tablet; Take 1 Tab by mouth 2 times daily Return in about 4 weeks (around 12/25/2014) for depression. Patient seen and discussed with Dr. Houston Robbins MD Site Leader PGY 3 11/27/2014 14:14 documented in this encounter Plan of Treatment Not on file documented as of this encounter Visit Diagnoses Diagnosis Depression- Primary Depressive disorder, not elsewhere classified Encounter for initial prescription of contraceptive pills General counseling for prescription of oral contraceptives PCR DNA positive for HSV1 Special screening examination for other specified viral diseases documented in this encounter Discontinued Medications Medication Sig Discontinue Reason Start Date End Da te valACYclovir (VALTREX) 500 mg tablet Take 1 Tab by mouth 2 times daily Reorder 10/19/2014 11/27/2014 documented as of this encounter Care Teams Eight Arm Operator Relationship Specialty Start Date End Date Talya Robbins MD PCP - General 01/27/13 09/15/15 documented as of this encounter
--- OUTSIDE RECORDS SUMMARY | 2023-12-04 20:20 | XMS_ITS | Encounter Summary ---
Author Organization [facility] Address [address] [place] [address] Care Team Providers Care Scalper Operator Name Role Phone Talya Robbins MD Primary Care Provider Maureen vailable Reason for Visit * Reason Comments Herpes Encounter Details Date Type Department Care Team (Late st Contact Info) Description 08/29/2013 15:00 EDT Office Visit [facility] OBGYN Services - [facility] [address] [place], [place] [address] Ariel Soto MD MSc Genital HSV (Primary Dx) Discharge Disposition: Auto Discharge Social [...] Sign Reading Time Taken Comments Blood Pressure 110/70 08/29/2013 1514 EDT Pulse - - Temperature - - Respiratory Rate - - Oxygen Saturation - - Inhaled Oxygen Concentration - - Weight 72.6 kg (160 lb) 08/29/2013 1514 EDT Height - - Body Mass Index 28.8 01/27/2013 1044 EST documented in this encounter Discharge Diagnoses Diagnosis 054.10 GENITAL HERPES NOS[ICD-9-CM] documented in this encounter Ordered Prescriptions Prescription Sig Dispensed Refills Start Date End Da te valACYclovir (VALTREX) 500 mg tablet Take 1 Tab by mouth 2 times daily for 3 days. 6 Tab 3 08/29/2013 09/01/2013 documented in this encounter Discharge Disposition Disposition Code Departure Means Destination Auto Discharge documented in this encounter Progress Notes * Ariel Soto MD - 08/29/2013 1540 EDT S. 17 yo G0 with tender, erythematous area just below vag opening on rt. O. A. Probable HSV P. Valtrex 500, bid x 3d Ariel Soto MD documented in this encounter Plan of Treatment Not on file documented as of this encounter Procedures Procedure Name Priority Date/Time Associated Diagnosis Comments MUCOCUTANEOUS VIRUS DETECTION Routine 08/29/2013 15:36 EDT Genital HSV documented in this encounter Results * MUCOCUTANEOUS VIRUS DETECTION (08/29/2013 15:36 EDT) Specimen Description Genital [facility] Result HERPES SIMPLEX VIRUS TYPE 1 detected by PCR. [facility] Result [facility] Result No Herpes simplex Virus Type 2 detected by PCR. [facility] Result (Note) Analyte Specific Reagent. This test was developed and its performance characteristics determined by Laboratory Medicine and Pathology, [facility]. This test has not been cleared or [...] to perform high complexity clinical laboratory testing. [facility] Report Status 08/30/2013 Final [facility] GENITAL STRUCTURE / Unknown 08/29/2013 15:36 EDT 08/29/2013 16:49 EDT Ariel Soto MD MSc MICROBIOLOG Y - GENERAL ORDERABLES [facility] [address] [place] [address] documented in this encounter Visit Diagnoses Diagnosis Genital HSV- Primary Genital herpes, unspecified documented in this encounter Discontinued Medications Medication Sig Discontinue Reason Start Date End Da te valACYclovir (VALTREX) 500 mg tablet Take 500 mg by mouth as needed. 08/29/2013 documented as of this encounter Care Teams Scalper Operator Relationship Specialty Start Date End Date Talya Robbins MD PCP - General 01/27/13 09/15/15 documented as of this encounter
--- OUTSIDE RECORDS SUMMARY | 2023-12-04 20:20 | XMS_ITS | Encounter Summary ---
Author Organization [facility] Address [address] [place] [address] Care Team Providers Care Licensed Massage Therapist Name Role Phone Talya Robbins MD Primary Care Provider Maureen vailable Encounter Details Date Type Department Care Team (Late st Contact Info) Description 12/15/2013 Phlebotomy Only [facility] [address] [place] [address] Automotive Parts Salesperson, Outpatient Other postablative hypothyroidism Social History Tobacco Use [...] Priority Date/Time Associated Diagnosis Comments TSH Routine 12/15/2013 13:07 EDT Other postablative hypothyroidism T4 FREE Routine 12/15/2013 13:07 EDT Other postablative hypothyroidism documented in this encounter Results * (ABNORMAL) TSH (12/15/2013 13:07 EDT) TSH 10.77(H) 0.35 - 5.00 uIU/ml [facility] Blood specimen (specimen) 12/15/2013 13:07 EDT 12/15/2013 13:27 EDT Carlos Nuñez DO CHEMISTRY & BL OOD GAS ORDERABLES Performing Organization Address [facility] Co de Phone Number [facility] [address] [place] [address] * T4 FREE (12/15/2013 13:07 EDT) Free T4 1.4 0.8 - 1.4 ng/dl [facility] Blood specimen (specimen) 12/15/2013 13:07 EDT 12/15/2013 13:27 EDT Carlos Nuñez DO CHEMISTRY & BL OOD GAS ORDERABLES Performing Organization Address [facility] de Phone Number [facility] [address] [place] [address] documented in this encounter Visit Diagnoses Diagnosis Other postablative hypothyroidism documented in this encounter Care Teams Licensed Massage Therapist Relationship Specialty Start Date End Date Talya Robbins MD PCP - General 01/27/13 09/15/15 documented as of this encounter
--- OUTSIDE RECORDS SUMMARY | 2023-12-04 20:20 | XMS_ITS | Encounter Summary ---
Author Organization [facility] Address [address] [place] [address] Care Team Providers Care Beam Machine Operator Name Role Phone Sugar Lacy MD Primary Care Provider Reason for Visit * Reason Onset Date Comments Requesting Sooner Appointment 10/05/2012 Encounter Details Date Type Department Care Team (Late st Contact Info) Description 10/05/2012 Telephone [facility] Endocrinology - [facility] [address] [place] [address] Carlos Nuñez, [address] [facility] [address] [place] [phone] Requesting Sooner Appointment Social History Tobacco Use Types Packs/Day Years [...] encounter Miscellaneous Notes * Telephone Encounter - Xenia Cline - 10/05/2012 0722 EDT Pt's mom states the pt took an iodine pill in which Dr Nuñez said he wanted to see her in six weeks in which there isn't anything with Dr Nuñez that falls around that time frame. Please call mom back to get pt in for an appt around early October. documented in this encounter Plan of Treatment Not on file documented as of this encounter Visit Diagnoses Not on filedocumented in this encounter Care Teams Beam Machine Operator Relationship Specialty Start Date End Date Sugar Lacy MD [address] [place] [phone] PCP - General 02/27/10 01/26/13 documented as of this encounter
--- OUTSIDE RECORDS SUMMARY | 2023-12-04 20:20 | XMS_ITS | Encounter Summary ---
Author Organization [facility] Address [address] [place] [address] Care Team Providers Care Wheel Installer Name Role Phone Talya Robbins MD Primary Care Provider Maureen vailable Reason for Visit * Reason Comments Labs Only Encounter Details Date Type Department Care Team (Latest Contact Info) Description 10/06/2013 11:00 EDT Procedure visit [facility] Endocrinology - [facility] [address] [place] [address] Carlos Nuñez, 62 [facility] [address] [place] [address] Phlebotomy, [facility] Mariann Endo Other postablative hypothyroidism Social History Tobacco Use [...] as of this encounter Progress Notes * Nikia Jiang - 10/06/2013 1111 EDT Blood sample drawn from vein for testing at the order of ???I was supervised by Dr. Nuñez who was in the suite and readily available.?? Nikia Jiang 11:11 10/06/2013 documented in this encounter Plan of Treatment Not on file documented as of this encounter Procedures Procedure Name Priority Date/Time Associated Diagnosis Comments TSH Routine 10/06/2013 10:53 EDT Other postablative hypothyroidism T4 FREE Routine 10/06/2013 10:53 EDT Other postablative hypothyroidism documented in this encounter Results * (ABNORMAL) T4 FREE (10/06/2013 10:53 EDT) Free T4 1.5(H) 0.8 - 1.4 ng/dl [facility] Blood specimen (specimen) 10/06/2013 10:53 EDT 10/06/2013 15:16 EDT Carlos Nuñez DO CHEMISTRY & BL OOD GAS ORDERABLES Performing Organization Address [facility] Co de Phone Number [facility] [address] [place] [address] * (ABNORMAL) TSH (10/06/2013 10:53 EDT) TSH 9.46(H) 0.35 - 5.00 uIU/ml [facility] Blood specimen (specimen) 10/06/2013 10:53 EDT 10/06/2013 15:16 EDT Carlos Nuñez DO CHEMISTRY & BL OOD GAS ORDERABLES Performing Organization Address [facility] Co de Phone Number [facility] [address] [place] [address] documented in this encounter Visit Diagnoses Diagnosis Other postablative hypothyroidism documented in this encounter Care Teams Wheel Installer Relationship Specialty Start Date End Date Talya Robbins MD PCP - General 01/27/13 09/15/15 documented as of this encounter
--- OUTSIDE RECORDS SUMMARY | 2023-12-04 20:20 | XMS_ITS | Encounter Summary ---
Author Organization [facility] Address [address] [place] [address] Care Team Providers Care Medical Dosimetrist Name Role Phone Sugar Lacy MD Primary Care Provider Reason for Visit * Reason Comments Thyroid Problem Encounter Details Date Type Department Care Team (Latest Contact Info) Description 12/13/2012 16:00 EDT Office Visit [facility] Endocrinology - [facility] [address] [place] [address] Carlos Nuñez, 62 [facility] [address] [place] [address] Grave's disease (Primary Dx); Status post radioactive iodine thyroid [...] Sign Reading Time Taken Comments Blood Pressure 132/74 12/13/2012 1543 EDT Pulse 72 12/13/2012 1543 EDT Temperature - - Respiratory Rate - - Oxygen Saturation - - Inhaled Oxygen Concentration - - Weight 76.2 kg (168 lb) 12/13/2012 1543 EDT Height 157.5 cm (5' 2.01) 12/13/2012 1543 EDT Body Mass Index 30.72 12/13/2012 1543 EDT documented in this encounter Discharge Diagnoses Diagnosis 242.00 TOX DIF GOITER NO CRISIS[ICD-9-CM] V45.89 POSTSURGICAL STATES NEC[ICD-9-CM] documented in this encounter Patient Instructions * Patient Instructions* Carlos Nuñez DO - 12/13/2012 15:[address] Nuñez will inform you of your lab results by phone or mail within 2 weeks. If you do not receive your test results after two weeks please contact the office. 2. Call with questions, concerns or change in symptoms. 3. Follow-up in 6 months documented in this encounter Progress Notes * Carlos Nuñez DO - 12/13/2012 1615 EDT SUBJECTIVE: Ms Tiny Cervantes is a 17-year-old female who returns to the endocrine clinic today for further evaluation and management of her hyperthyroidism secondary to Graves' disease. She was last seen on 09/05/2012. Please see that note for full details. The patient underwent an uptake and scan on 08/31/2012 that showed a diffuse radiotracer uptake of 29.4% at 4 hours and 67.5% at 24 hours. She underwent treatment with 10 mCi of radioactive iodine at [facility] on 10/05/2012. She presents today for followup. Upon interview today, she reports feeling fatigued over the lastweek or so. Notes a 6 to 8 pound weight gain over the last month and a half. Notes some mild cold in tolerance. No changes in her hair, skin or nails. Mood has been variable according to the patient, denies constipation. PAST MEDICAL HISTORY: Reviewed as documented in electronic medical record. MEDICATIONS: Reviewed as documented in electronic medical record. ALLERGIES: Reviewed as documented in electronic medical record. OBJECTIVE: Blood pressure is 132/74, pulse is 72, weight is 168 pounds, BMI is 31. In general, patient is a pleasant 17-year-old female in no acute distress. HEENT: Eyes: No proptosis, no exophthalmus, no lid lag, no periorbital edema, no pain with lateral gaze. No conjunctival or scleral injection. Her extraocular muscles are intact and equal bilaterally. Neck is supple. Thyroid is mildly enlarged, nontender, no adenopathy. Respiratory: Lungs clear to auscultation bilaterally. Cardiovascular is regular without murmurs, rubs, or gallops. GI: Abdomen soft with good bowel sounds in all 4 quadrants. Extremities: No clubbing, cyanosis or edema. Strength is 5/5 and equal bilaterally without proxi mal muscle weakness. Neuro: DTRs +2/4 and equal bilaterally in all 4 extremities, without a restingtremor. Psych: Patient is A and O x3. Speech and thoughts are appropriate. Denies depression. ASSESSMENT: Ms Tiny Cervantes is a 17-year-old female status post treatment with 10 mCi for hyperthyroidism secondary to Graves' disease on 10/05/2012. She does have some clinical symptoms today that could suggest she has transitioned to the hypothyroid state. We will go ahead and order thyroid function tests today. If the labs do confirm she is hypothyroid, we will start weight-based levothyroxine and followup with labs in 6 weeks. If not, would continue to monitor on a monthly basis, but diddiscuss with patient that she may develop symptoms in between her lab tests. We reviewed those again today at the office and told her to call with any changes in symptoms in between lab draws if she h as not already hypothyroid. She voiced understanding. We will see her back in 6 months. PLAN: 1. Will obtain blood work tomorrow including a TSH, free T4. 2. Will contact patient with those results. 3. Will start weight-based levothyroxine if hypothyroid. If not, we will continue surveillance as noted above. 4. Follow up with me in 6 months. documented in this encounter Plan of Treatment Not on file documented as of this encounter Results * (ABNORMAL) T4 FREE (12/14/2012 15:53 EDT) Free T4 0.4(L) 0.8 - 1.8 ng/dL [facility] Blood specimen (specimen) 12/14/2012 15:53 EDT 12/14/2012 16:27 EDT Carlos Nuñez DO CHEMISTRY & BL OOD GAS ORDERABLES Performing Organization Address [facility] Co de Phone Number [facility] [address] [place] [address] * (ABNORMAL) TSH (12/14/2012 15:53 EDT) TSH 45.95(H) 0.35 - 5.00 uIU/ml [facility] Blood specimen (specimen) 12/14/2012 15:53 EDT 12/14/2012 16:27 EDT Carlos Nuñez DO CHEMISTRY & BL OOD GAS ORDERABLES Performing Organization Address [facility] de Phone Number [facility] [address] [place] [address] documented in this encounter Visit Diagnoses Diagnosis Grave's disease- Primary Toxic diffuse goiter without mention of thyrotoxic crisis or storm Status post radioactive iodine thyroid ablation Other postprocedural status documented in this encounter Care Teams Medical Dosimetrist Relationship Specialty Start Date End Date Sugar Lacy MD [address] [place] [phone] PCP - General 02/27/10 01/26/13 documented as of this encounter
--- OUTSIDE RECORDS SUMMARY | 2023-12-04 20:20 | XMS_ITS | Encounter Summary ---
Author Organization [facility] Address [address] [place] [address] Care Team Providers Care Financial Recording Clerk Name Role Phone Talya Robbins MD Primary Care Provider Maureen oliviailaJack Maciel MD Primary Care Provider Unavailable Ariana Mcghee MD Primary Care Provider [phone] Pawan Roman MD Primary Care Provider Unavail able Thea Santamaria MD Primary Care Provider [phone] Unknown, Provider Primary Care Provider [phone] Marva Hitchcock MD Primary Care Provider Unknown, Provider Primary Care Provider [phone] Camilla Jiang MD Primary Care Provider [phone] Danyel Forde DO Primary Care Provider + Danyel Forde DO Primary Care Provider + Ayla Solomon DO Primary Care Provider [phone] Reason for Visit * Reason Onset Date Comments Medications Refill 08/21/2014 Encounter Details Date Type Department Care Team (Late st Contact Info) Description 08/21/2014 Refill [facility] OBGYN Services - [facility] [address] [place], [place] [address] Ariel Soto MD MSc Medications Refill Social [...] by mouth 2 times daily 6 Tab 3 08/22/2014 10/19/2014 documented in this encounter Miscellaneous Notes * Telephone Encounter - Charmaine Bethea RN - 08/21/2014 7615 EDT Medication Refill Request Patient Request Medication/Dose/Route/Frequency: Valtrex, take 1 tab by mouth twice daily for outbreaks Pt completely out: yes Last office visit: has not had a YRL before, last PRB visit was 06/28/14 Pending visit: 09/04/14 YRL Pharmacy confirmed: [facility] [place] Amount filled/# of refills: Per provider discretion * Telephone Encounter - Charmaine Bethea RN - 08/21/2014 1656 EDTFrom: Tiny Varela Pregyonathan To: Ariel Soto MD Sent: 08/21/2014 13:34 EDT Subject: Medication Renewal Request Original authorizing provider: MD Tiny Omalley would like a refill of the following medications: valACYclovir (VALTREX) 500 mg tablet [Ariel Soto MD] Preferred pharmacy: [facility] - [facility], [place] - [address] [facility] Comment: documented in this encounter Plan of Treatment Not on file documented as of this encounter Visit Diagnoses Not on filedocumented in this encounter Discontinued Medications Medication Sig Discontinue Reason Start Date End Da te valACYclovir (VALTREX) 500 mg tablet Take 1 Tab by mouth 2 times daily. Reorder 03/20/2014 08/21/2014 documented as of this encounter Additional Health Concerns Infection Onset Date Last Indicated Resolved Time COVID-19 07/14/2021 07/14/2021 07/25/2021 22:1 6 EDT documented as of this encounter Care Teams Financial Recording Clerk Relationship Specialty Start Date End Date Talya Robbins MD PCP - General 01/27/13 09/15/15 Jack Younger MD PCP - General 09/16/15 09/30/15 Ariana Mcghee MD PCP - General 10/01/15 06/17/16 Pawan Roman MD PCP - General 06/18/16 11/24/16 Thea Santamaria MD [address] [place] [phone] PCP - General 11/25/16 05/25/17 Unknown, ProviderMD PCP - General 05/26/17 06/02/17 Marva Hitchcock MD [address] [place] [phone] PCP - General 06/03/17 06/28/20 Unknown, ProviderMD PCP - General 06/29/20 08/01/20 Camilla Jiang MD [address] [place] [phone] PCP - General Family Medicine - Primary Care 08/02/20 08/27/20 Danyel Forde DO [address] [place] [phone] PCP - General Family Medicine - Primary Care 08/29/20 04/11/21 Danyel Forde DO [address] [place] [phone] PCP - General 08/28/20 08/28/20 Ayla Solomon DO [facility] [address] [address] PCP - General General Surgery 04/12/21 documented as of this encounter
--- OUTSIDE RECORDS SUMMARY | 2023-12-04 20:20 | XMS_ITS | Encounter Summary ---
Author Organization [facility] Address [address] [place] [address] Care Team Providers Care Paper Twister Name Role Phone Talya Robbins MD Primary Care Provider Maureen vailable Reason for Visit * Reason Comments Thyroid Problem Encounter Details Date Type Department Care Team (Latest Contact Info) Description 12/26/2014 15:20 EDT Office Visit [facility] Endocrinology - [facility] [address] [place], [place] [id number] Carlos Nuñez, 62 [facility] [address] [place] [address] Status post radioactive iodine thyroid ablation (Primary Dx); Graves' disease; Hypothyroidism, postablative Social History Tobacco [...] Sign Reading Time Taken Comments Blood Pressure 129/71 12/26/2014 1517 EDT Pulse 72 12/26/2014 1517 EDT Temperature - - Respiratory Rate - - Oxygen Saturation - - Inhaled Oxygen Concentration - - Weight 76.7 kg (169 lb) 12/26/2014 1517 EDT Height 158.8 cm (5' 2.52) 12/26/2014 1517 EDT Body Mass Index 30.4 12/26/2014 1517 EDT documented in this encounter Functional Status [...] as of this encounter Discharge Diagnoses Diagnosis Z92.3 Personal history of irradiation-Z92.3[ICD-10-CM] E05.00 Thyrotoxicosis with diffuse goiter without thyrotoxic crisis or storm-E05.00[ICD-10-CM] E89.0 POSTPROCEDURAL HYPOTHYROIDISM[ICD-10-CM] documented in this encounter Patient Instructions * Patient Instructions* Carlos Nuñez DO - 12/26/2014 15:35 EDT 1. Follow-up in one year documented in this encounter Progress Notes * Carlos Nuñez DO - 12/26/2014 1548 EDT SUBJECTIVE:Tiny Cervantes is a 19 y.o. female who presents to the endocrine [...] changes in their weight or bowel habits. Moodis stable. No clear signs or symptoms of over replacement such as palpitations, hyperdefication, uni ntentional weight loss, tremor, insomnia, heat intolerance. PAST MEDICAL HISTORY: Reviewed as documented in the electronic medical record. MEDICATIONS: Reviewed as documented in the electronic medical record. ALLERGIES: Reviewed as documented in the electronic medical record. OBJECTIVE: Physical exam: BP 129/71 mmHg Pulse 72 Ht 158.8 cm (62.52) Wt 76.658 kg (169 lb) BMI 30.40 kg/m2 LMP 11/29/2014 (Approximate) General: The patient is a 19 y.o. female in no acute distress. HEENT: Eyes: Mouth: Mucous membranes moist and pink in color. No oral lesions seen. Neck: Supple without adenopathy. No JVD or carotid bruits appreciated. Thyroid is normal in size withouttenderness or nodules to palpation. Respiratory: Lungs are clear to auscultation bilaterally. Cardiovascular: Heart is regular without murmurs rubs or gallops. GI: Abdomen is soft nontender nondistended. Good bowel sounds in all 4 quadrants. Extremities: No clubbing cyanosis or edema. Strength is 5out of 5 and equal bilaterally in all 4 extremities. Neuro: DTRs are +2/4 and equal in all 4 extremities. No resting tremor. Psych: Patient is alert and oriented x3. Denies depression anxiety. LABORATORY DATA: 1. TSH drawn on October 01, 2014 was 3.4 with a free T4 of 1.3. ASSESSMENT: 1. 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
--- OUTSIDE RECORDS SUMMARY | 2023-12-04 20:20 | XMS_ITS | Encounter Summary ---
Author Organization [facility] Address [address] [place] [address] Care Team Providers Care Development Representative Name Role Phone Talya Robbins MD Primary Care Provider Maureen vailable Reason for Visit * Reason Onset Date Comments Results 06/28/2014 Encounter Details Date Type Department Care Team (Late st Contact Info) Description 06/28/2014 Telephone [facility] Endocrinology - [facility] [address] [place] [address] Carlos Nuñez DO [address] [facility] [address] [place] [phone] Results Social History Tobacco Use [...] mouth daily 90 Tab 3 07/16/2014 12/24/2015 documented in this encounter Miscellaneous Notes * Telephone Encounter - Shannan Moffett - 07/16/2014 1203 EDT I have been unable to reach the patient directly after multiple calls. I left a detailed message with her mother re: dose adjustment and follow up labs. She will have the patient call me if she has any questions. * Telephone Encounter - Carlos Nuñez DO - 06/28/2014 1317 EDT Please contact patient via phone. I have reviewed the patient's most recent laboratory results [facility] 06[facility]28[facility]14 . Advise patient that her TSH is elevated with a normal Free T4. Confirm pt is taking medication regularly and away from any vitamin oriron. If confirmed, increase dose to 175 mcg daily and repeat blood work in 4 weeks documented in this encounter Plan of Treatment Not on file documented as of this encounter Visit Diagnoses Diagnosis Other postablative hypothyroidism- Primary documented in this encounter Discontinued Medications Medication Sig Discontinue Reason Start Date End Da te levothyroxine (SYNTHROID) 150 mcg tabletIndications:Other postablative hypothyroidism Take 1 Tab by mouth daily 04/27/2014 07/16/2014 documented as of this encounter Care Teams Development Representative Relationship Specialty Start Date End Date Talya Robbins MD PCP - General 01/27/13 09/15/15 documented as of this encounter
--- OUTSIDE RECORDS SUMMARY | 2023-12-04 20:20 | XMS_ITS | Encounter Summary ---
Author Organization [facility] Address [address] [place] [address] Care Team Providers Care Color Receiver Name Role Phone Sugar Lacy MD Primary Care Provider Encounter Details Date Type Department Care Team (Late st Contact Info) Description 10/05/2012 Phlebotomy Only [facility] [address] [place] [address] Lav Crewman, Outpatient Social History Tobacco Use Types Packs/Day Years [...] on filedocumented in this encounter Care Teams Color Receiver Relationship Specialty Start Date End Date Sugar Lacy MD [address] [place] [phone] PCP - General 02/27/10 01/26/13 documented as of this encounter
--- OUTSIDE RECORDS SUMMARY | 2023-12-04 20:20 | XMS_ITS | Encounter Summary ---
Author Organization [facility] Address [address] [place] [address] Care Team Providers Care Policewoman Name Role Phone Talya Robbins MD Primary Care Provider Maureen vailable Reason for Visit * Reason Comments Mood Disorder Patient would like t o begin pharmacotherapy for depression. Encounter Details Date Type Department Care Team (Late st Contact Info) Description 10/30/2014 8:45 EDT Office Visit [address] [address] Unknown, Provider, Talya Robbins MD Depression (Primary Dx); Encounter for other general counseling or advice on contraception; Tobacco dependence; Alcohol abuse Social History Tobacco Use Types Packs/Day Years Used Date Smoking Tobacco: Every Day Cigarettes 2 5 Started: 01/29/2006; Last attempted to quit: 01/29/2011 Cigars Smokeless Tobacco: Never Tobacco Cessation:Ready to Q uit: No; Counseling Given: Yes Alcohol Use Standard Drinks/Week Comments Yes 0.8 (1 standard drink = 0.6 oz p ure alcohol) Sex and Gender Information Value Date Recorded Sex Assigned at Not on file Gender Identity Female 03/02/2019 11:17 EST Sexual Orientation Not on file documented as of this encounter Last Filed Vital Signs Vital Sign Reading Time Taken Comments Blood Pressure 104/70 10/30/2014 0824 EDT Pulse 64 10/30/2014 0824 EDT Temperature 36.8 ??C (98.2 ??F) 10/30/2014823 EDT Respiratory Rate 14 10/30/2014823 EDT Oxygen Saturation - - Inhaled Oxygen Concentration - - Weight 78 kg (172 lb) 10/30/2014823 EDT Height 158.8 cm (5' 2.52) 10/30/2014823 EDT Body Mass Index 30.94 10/30/2014823 EDT documented in this encounter Functional Status Functional Status Response Date of Assess ment Because of a physical, menta l, or emotional condition, does this person have difficulty doing errands alone such as visiting a doctor's office or shopping? No 10/30/2014 Cognitive Status Response Date of Assessm ent Because of a physical, menta l, or emotional condition, does this person have serious difficulty concentrating, remembering, or making decisions? No 10/30/2014 documented as of this encounter Ordered Prescriptions Prescription Sig Dispensed Refills Start Date End Da te sertraline (ZOLOFT) 25 mg tabletIndications:Depressi on Take 1 Tab by mouth daily 30 Tab 1 10/30/2014 12/27/2014 documented in this encounter Progress Notes * Jayson Conrad MD - 10/31/2014 1804 EDT Attestation statement for patient seen by attending: I saw and examined the patient on the day of this service and agree with the findings and plan of care documented in the resident's/fellow's note. Jayson Conrad MD Family Medicine Attending 10/31/2014 18:04 * Talya Robbins MD - 10/30/2014 0854 EDT Subjective: Patient ID: Tiny Varela Pregent is an 19 y.o. female. Chief Complaint Patient presents with ??? Mood Disorder Patient would like to begin pharmacotherapy for depression. HPI Patient here with worsening depression. A lot of stressors in her life. Friend recently . In a relationship with boyfriend that is very up and down. Has mood swings. Doesn't want to do anything. Trouble falling asleep but then sleeping too much. Has thoughts of self harm, cut herself twice. Does this when things get really bad. No thoughts of suicide. Started counseling at [facility] yesterday. Planning to continue this. Drinking during the day for the last couple weeks. Drinking during work on lunch break. Drinking helps to clear my head but she also notes that it makes the depression worse Using marijuana daily. Smoking cigarettes. No other recreational drug use. No history of IV drugs. Not using any form of control. Uses condoms only when with a partner other than her boyfriend. States she is not in a place to have a baby, but would be open to it and thinks it might make things better. Had bleeding with depo. Tolerated Soo well until switched to generic. Did well with implanon but did not like not getting her period monthly. Patient Active Problem List Diagnosis ??? Acanthosis nigricans ??? Vitamin D deficiency ??? Status post radioactive iodine thyroid ablation ??? PCR DNA positive for HSV1 ??? Other postablative hypothyroidism ??? Nasal bones, closed fracture Past Medical History Diagnosis Date ??? Asthma, [...] by mouth daily 90 Tab 3 ??? valACYclovir (VALTREX) 500 mg tablet Take 1 Tab by mouth 2 times daily 6 Tab 0 No current facility-administered medications on [...] specified per week Review of Systems Constitutional: Positive for malaise/fatigue. Negative for fever and chills. Gastrointestinal: Negative for nausea and abdominal pain. Neurological: Negative for dizziness. Psychiatric/Behavioral: Positive for depression and substance abuse. Negative for suicidal ideas. The patient is nervous/anxious and has insomnia. - See HPI Objective: BP 104/70 mmHg Pulse 64 Temp(Src) 36.8 ??C (98.2 ??F) (Oral) Resp 14 Ht 158.8 cm (62.52) Wt 78.019 kg (172 lb) BMI 30.94 kg/m2 LMP 10/30/2014 Physical Exam Constitutional: She is [...] mood and affect. Her behavior is normal. Good eye contact. Vitals reviewed. Behavioral Health Screen PHQ-2 Little interest or pleasure in doing things?: more than half the days Feeling down, depressed, or hopeless?: more than half the days PHQ-2 SUBTOTAL: 4 PHQ-9 Trouble falling or staying asleep, or sleeping too much?: nearly every day Feeling tired or having little energy?: more than half the days Poor appetite or overeating?: nearly every day Feeling bad about yourself - or that you are a failure or have let yourself or your family down?: nearly every day Trouble concentrating on things, such as reading the newspaper or watching TV?: more than half the days Moving or speaking so slowly that other people have noticed? Or the opposite - being so fidgety or restless that you have been moving around a lot more than usual?: more than half the days Thoughts that you would be better off , or of hurting yourself in some way?: nearly every day PHQ-9 TOTAL: 22 PHQ-9 Score Details: Screen Positive for Depression MARGARET-2 Feeling nervous, anxious, or on edge?: more than half the days Not being able to stop or control worrying?: nearly every day MARGARET-2 SUBTOTAL: 5 MARGARET-7 Worrying too much about different things?: nearly every day Having trouble relaxing?: more than half the days Being so restless that it is hard to sit still?: more than half the days Becoming easily annoyed or irritable?: more than half the days Feeling afraid as if something awful might happen?: more than half the days MARGARET-7 TOTAL: 16 MARGARET-7 Score Interpretation: Severe Anxiety Assessment/Plan: Tiny was seen today for mood disorder. Diagnoses and associated orders for this visit: Depression: Significant depression and anxiety. Poor social situation and poor support system. Patient with self harming behavior- cutting. No SI. No history suggestive of Bipolar. Will start SSRI today, encouraged her to continue counseling. Advised of side effects of SSRI and may take 3-4 weeks to take effect. - sertraline (ZOLOFT) 25 mg tablet; Take 1 Tab by mouth daily Encounter for other general counseling or advice on contraception: Strongly encouraged patient to restart a form of contraception. She admits that now is not a good time for a and is uncertain she would be able to take care of a child. Advised that as now is not a good time for a child, and that it will add to her stresses and she needs to focus on taking care of herself right now and to strongly consider restarting contraceptive. Went over options for contraception. She declined at this time. Tobacco dependence: Currently not interested in quitting. Alcohol Abuse: Discussed risks with her current amount of alcohol consumption. Patient declined further intervention. Return in about 4 weeks (around 11/27/2014) for f/u depression. Patient seen and discussed with Dr. Houston Robbins MD Traffic Line Painter PGY 3 10/30/2014 15:39 documented in this encounter Plan of Treatment Not on file documented as of this encounter Visit Diagnoses Diagnosis Depression- Primary Depressive disorder, not elsewhere classified Encounter for other general counseling or advice on contraception Tobacco dependence Tobacco use disorder Alcohol abuse Alcohol abuse, unspecified documented in this encounter Care Teams Policewoman Relationship Specialty Start Date End Date Talya Robbins MD PCP - General 01/27/13 09/15/15 documented as of this encounter
--- OUTSIDE RECORDS SUMMARY | 2023-12-04 20:20 | XMS_ITS | Encounter Summary ---
Author Organization [facility] Address [address] [place] [address] Care Team Providers Care Torch Shearer Name Role Phone Talya Robbins MD Primary Care Provider Maureen vailable Reason for Visit * Reason Onset Date Comments Medications Refill 03/20/2014 Encounter Details Date Type Department Care Team (Late st Contact Info) Description 03/20/2014 Refill [facility] OBGYN Services - [facility] [address], [place] [id number] Gricelda Mason, RN Medications Refill Social History Tobacco Use Types [...] daily. 6 Tab 3 03/20/2014 08/21/2014 documented in this encounter Miscellaneous Notes * Telephone Encounter - Gricelda Mason, ROULA - 03/20/2014 5562 EST Medication Refill Request Patient Request Medication/Dose/Route/Frequency: Valtrex for current outbreak Pt completely out: ? Last office visit: 01/04/14 Nexplanon removed Pending visit: none Pharmacy confirmed: yes Amount filled/# of refills: Please advise OK to speak with mother/pt. Explained that a message was being sent to Dr Soto Refill OK'd by Dr Soto. Mother notified. Suggested to not wait until all refills are gone. 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 03/20/2014 documented as of this encounter Care Teams Torch Shearer Relationship Specialty Start Date End Date Talya Robbins MD PCP - General 01/27/13 09/15/15 documented as of this encounter
--- OUTSIDE RECORDS SUMMARY | 2023-12-04 20:20 | XMS_ITS | Encounter Summary ---
Author Organization [facility] Address [address] [place] [address] Care Team Providers Care Stave Cutting Supervisor Name Role Phone Talya Robbins MD Primary Care Provider Maureen vailable Reason for Visit * Reason Onset Date Comments Medication Management 05/01/2013 Encounter Details Date Type Department Care Team (Late st Contact Info) Description 05/01/2013 Telephone [facility] Endocrinology - [facility] [address] [place] [address] Carlos Nuñez DO [address] [facility] [address] [place] [phone] Medication Management Social History Tobacco [...] Miscellaneous Notes * Telephone Encounter - Amelia Cheney - 05/01/2013 1104 EST Patient is thinking about getting and needs to discuss meds documented in this encounter Plan of Treatment Not on file documented as of this encounter Visit Diagnoses Not on filedocumented in this encounter Care Teams Stave Cutting Supervisor Relationship Specialty Start Date End Date Talya Robbins MD PCP - General 01/27/13 09/15/15 documented as of this encounter
--- OUTSIDE RECORDS SUMMARY | 2023-12-04 20:20 | XMS_ITS | Encounter Summary ---
Author Organization [facility] Address [address] [place] [address] Care Team Providers Care Metal Trimmer Name Role Phone Talya Robbins MD Primary Care Provider Maureen vailable Encounter Details Date Type Department Care Team (Late st Contact Info) Description 09/25/2014 Results Only [facility] OBGYN Services - [facility] [address] [place] [address] Jason Soto MD MSc Social History Tobacco Use Types Packs/Day Years [...] Associated Diagnosis Comments CHLAMYDIA/N. GONORRHOEAE AMPLIFIED NUCLEIC ACID, THINPREP Routine 09/25/2014 14:41 EDT PAP TEST- RESULT ONLY Routine 09/25/2014 0:00 EDT documented in this encounter Results * CHLAMYDIA/GC AMPLIFIED, THIN PREP (09/25/2014 14:41 EDT) Chlamydia Result No Chlamydia trachomatis DNA detected by carrier loader mediated amplification. 09/27/2014 13:32 EDT [facility] GC Result No Neisseria gonorrhoeae DNA detected by carrier loader mediated amplification. 09/27/2014 13:32 EDT [facility] UNKNOWN / Unknown 09/25/2014 14:41 EDT 2014 14:41 EDT Jason Soto MD MSc MICROBIOLOG Y - GENERAL ORDERABLES [facility] [address] [place] [address] * PAP TEST- RESULT ONLY (09/25/2014 0:00 EDT) Pathology Report: CYTOPATHOLOGY REPORT Reports generated via electronic interface contain original data; however they are lacking the format of the original report. Caution should be taken when reading/interpreti ng unformatted reports. Name: ? PREGENT, TINY A ? Accession #: ? [id number] : ? 1995 (Age: 19) ??F ?Collect Date: ? 09/25/2014 Location: ? OBGYN ? Receive Date: ? 09/27/2014 Provider: ?JASON SOTO MD Copy to: ? Specimen/Source: ?Pap Test, Cervix/Endocervix, ThinPrep Imaging System with manual evaluation Last Menstrual Period: ? 08/31/14 ? SPECIMEN ADEQUACY ? Satisfactory for Evaluation - transformation zone component present GENERAL CATEGORIZATION ? Negative for Intraepithelial Lesion or Malignancy INTERPRETATION ? Shift in santi present suggestive of bacterial vaginosis. ? Document reviewed and electronically signed by: ? TRUPTI Main(ASCP) ? Report Date: ??10/01/2014 14:37 End of Report [facility] 09/25/2014 09/27/2014 Jason Soto MD MSc PATHOLOGY O RDERABLES Performing Organization Address City/State/[facility] Co de Phone Number [facility] [address] [place] [address] documented in this encounter Visit Diagnoses Not on filedocumented in this encounter Care Teams Metal Trimmer Relationship Specialty Start Date End Date Talya Robbins MD PCP - General 01/27/13 09/15/15 documented as of this encounter
--- OUTSIDE RECORDS SUMMARY | 2023-12-04 20:20 | XMS_ITS | Encounter Summary ---
Author Organization [facility] Address [address] [place] [address] Care Team Providers Care Law Enforcement Officer Name Role Phone Talya Robbins MD Primary Care Provider Maureen vailable Encounter Details Date Type Department Care Team (Latest Contact Info) Description 04/13/2014 8:43 EST - 04/13/2014 23:59 EST Hospital Encounter [facility] [place] [address] [place] [address] Unknown, Provider, Discharge Disposition: Home or Self Care Social [...] mouth daily. 90 Tab 3 02/08/2014 04/27/2014 valACYclovir (VALTREX) 500 mg tablet Take 1 Tab by mouth 2 times daily. 6 Tab 3 03/20/2014 08/21/2014 documented as of this encounter Discharge Disposition Disposition Code Departure Means Destination Home or Self Custodial documented in this encounter Plan of Treatment Not on file documented as of this encounter Visit Diagnoses Not on filedocumented in this encounter Care Teams Law Enforcement Officer Relationship Specialty Start Date End Date Talya Robbins MD PCP - General 01/27/13 09/15/15 documented as of this encounter
--- OUTSIDE RECORDS SUMMARY | 2023-12-04 20:20 | XMS_ITS | Encounter Summary ---
Author Organization [facility] Address [address] [place] [address] Care Team Providers Care Sales Training Manager Name Role Phone Sugar Lacy MD Primary Care Provider Encounter Details Date Type Department Care Team (Late st Contact Info) Description 09/19/2012 Phlebotomy Only [facility] [address] [place] [address] Cheese Tester, Outpatient Toxic diffuse goiter without mention of thyrotoxic crisis or storm Social History Tobacco Use Types Packs/Day Years [...] as of this encounter Visit Diagnoses Diagnosis Toxic diffuse goiter without mention of thyrotoxic crisis or storm documented in this encounter Care Teams Sales Training Manager Relationship Specialty Start Date End Date Sugar Lacy MD [address] [place] [phone] PCP - General 02/27/10 01/26/13 documented as of this encounter
--- OUTSIDE RECORDS SUMMARY | 2023-12-04 20:20 | XMS_ITS | Encounter Summary ---
Author Organization [facility] Address [address] [place] [address] Care Team Providers Care Communicable Disease Specialist Name Role Phone Sugar Lacy MD Primary Care Provider Encounter Details Date Type Department Care Team (Latest Contact Info) Description 12/14/2012 15:49 EDT Hospital Encounter [facility] [address] [place] [address] Unknown, Provider, Carlos Nuñez, DO [address] [facility] [address] [place] [phone] Discharge Disposition: Auto Discharge Social History [...] on filedocumented in this encounter Care Teams Communicable Disease Specialist Relationship Specialty Start Date End Date Sugar Lacy MD [address] [place] [phone] PCP - General 02/27/10 01/26/13 documented as of this encounter
--- OUTSIDE RECORDS SUMMARY | 2023-12-04 20:20 | XMS_ITS | Encounter Summary ---
Author Organization [facility] Address [address] [place] [address] Care Team Providers Care Web Production Manager Name Role Phone Talya Robbins MD Primary Care Provider Maureen Jack Larson MD Primary Care Provider Unavailable Ariana Mcghee MD Primary Care Provider [phone] Reason for Visit * Reason Onset Date Comments Results 01/31/2013 Encounter Details Date Type Department Care Team (Late st Contact Info) Description 01/31/2013 Telephone [facility] Endocrinology - [facility] [address] [place] [address] Carlos Nuñez, [address] [facility] [address] [place] [phone] Results Social History Tobacco Use [...] mouth daily. 90 Tab 3 02/01/2013 12/27/2013 documented in this encounter Miscellaneous Notes * Telephone Encounter - Chacha Guzman RN - 02/01/2013 1104 EST Phone call to Tiny Patient informed of Dr. Nuñez's message below about her most recent lab work results. She has been taking every AM with out food, and has only missed one pill. She will increase the Levothyroxine to 137 mcg, and recheck labs in 6 weeks. Verbalizes understanding with no barriers. Future orders pended New script sent to pharmacy * Telephone Encounter - Carlos Nuñez DO - 01/31/2013 1502 EST Please contact patient via phone. [facility] Advise patient that TSH remains slightly high at 6.47 with a free T4 of 1.3. Make sure pt is taking medication regularly on and empty stomach. If confirmed that pt is taking medication properly advise her to increase to 137 mcg daily and repeat lab tests in 6 weeks documented in this encounter Plan of Treatment Not on file documented as of this encounter Results * (ABNORMAL) T4 FREE (10/06/2013 10:53 EDT) Free T4 1.5(H) 0.8 - 1.4 ng/dl [facility] Blood specimen (specimen) 10/06/2013 10:53 EDT 10/06/2013 15:16 EDT Carlos Nuñez DO CHEMISTRY & BL OOD GAS ORDERABLES [facility] [address] [place] [address] * (ABNORMAL) TSH (10/06/2013 10:53 EDT) TSH 9.46(H) 0.35 - 5.00 uIU/ml [facility] Blood specimen (specimen) 10/06/2013 10:53 EDT 10/06/2013 15:16 EDT Carlos Mcmillan Joaquin DO CHEMISTRY & BL OOD GAS ORDERABLES [facility] [address] [place] [address] documented in this encounter Visit Diagnoses Diagnosis Other postablative hypothyroidism- Primary documented in this encounter Discontinued Medications Medication Sig Discontinue Reason Start Date End Da te levothyroxine (SYNTHROID) 125 mcg tabletIndications:Status post radioactive iodine thyroid ablation Take 1 Tab by mouth daily. Dose adjustment 12/16/2012 02/01/2013 documented as of this encounter Care Teams Web Production Manager Relationship Specialty Start Date End Date Talya Robbins MD PCP - General 01/27/13 09/15/15 Jack Younger MD PCP - General 09/16/15 09/30/15 Ariana Mcghee MD PCP - General 10/01/15 06/17/16 documented as of this encounter
--- OUTSIDE RECORDS SUMMARY | 2023-12-04 20:20 | XMS_ITS | Encounter Summary ---
Author Organization [facility] Address [address] [place] [address] Care Team Providers Care Retort Pre Cooker Name Role Phone Talya Robbins MD Primary Care Provider Maureen vailable Reason for Visit * Reason Onset Date Comments Results 10/16/2013 Encounter Details Date Type Department Care Team (Late st Contact Info) Description 10/16/2013 Telephone [facility] Endocrinology - [facility] [address] [place] [address] Carlos Nuñez, [address] [facility] [address] [place] [phone] Results Social History Tobacco Use [...] Telephone Encounter - Shannan Moffett RN - 10/23/2013 7591 EDT Spoke with mom, who advises she is taking the medication almost every day. She takes it in the am, on an empty stomach with water. She is not taking any supplements at all. She does expirience some nausea from taking the medication and not eating. I advised that she could switch to night dosing as long as she was still taking on an empty stomach. I placed orders for thyroid function tests for 8 wks. * Telephone Encounter - Chacha Guzman RN - 10/17/2013 1109 EDT Phone call to Tiny (left message for her to call back) * Telephone Encounter - Carlos Nuñez DO - 10/16/2013 1047 EDT Please contact patient via phone. [facility] . Advise patient that TSH is elevated but Free T4 is high end of normal. Dose is likely correct for her. Needs to make sure she is taking med daily and on an empty stomach. Repeat blood work in 8 weeks. documented in this encounter Plan of Treatment Not on file documented as of this encounter Results * (ABNORMAL) TSH (12/15/2013 13:07 EDT) TSH 10.77(H) 0.35 - 5.00 uIU/ml [facility] Blood specimen (specimen) 12/15/2013 13:07 EDT 12/15/2013 13:27 EDT Carlos Nuñez DO CHEMISTRY & BL OOD GAS ORDERABLES [facility] [address] [place] [address] * T4 FREE (12/15/2013 13:07 EDT) Free T4 1.4 0.8 - 1.4 ng/dl [facility] Blood specimen (specimen) 12/15/2013 13:07 EDT 12/15/2013 13:27 EDT Carlos Mcmillan Zebjulianne DO CHEMISTRY & BL OOD GAS ORDERABLES Performing Organization Address City/State/[facility] Co de Phone Number [facility] [address] [place] [address] documented in this encounter Visit Diagnoses Diagnosis Other postablative hypothyroidism- Primary documented in this encounter Care Teams Retort Pre Cooker Relationship Specialty Start Date End Date Talya Robbins MD PCP - General 01/27/13 09/15/15 documented as of this encounter
--- OUTSIDE RECORDS SUMMARY | 2023-12-04 20:20 | XMS_ITS | Encounter Summary ---
Author Organization [facility] Address [address] [place] [address] Care Team Providers Care Caster Operator Name Role Phone Sugar Lacy MD Primary Care Provider Encounter Details Date Type Department Care Team (Latest Contact Info) Description 10/05/2012 9:11 EDT - 10/05/2012 23:59 EDT Hospital Encounter [facility] [address] [place] [address] Carlos Nuñez, DO [address] [facility] [address] [place] [phone] Discharge Disposition: Auto Discharge Social History [...] on filedocumented in this encounter Care Teams Caster Operator Relationship Specialty [place] [address] [place] [phone] PCP - General 02/27/10 01/26/13 documented as of this encounter
--- OUTSIDE RECORDS SUMMARY | 2023-12-04 20:20 | XMS_ITS | Encounter Summary ---
Author Organization [facility] Address [address] [place] [address] Care Team Providers Care Parts Analyst Name Role Phone Talya Robbins MD Primary Care Provider Maureen vailable Encounter Details Date Type Department Care Team (Late st Contact Info) Description 06/28/2014 Phlebotomy Only [facility] [address] [place] [address] Education And Training Coordinator, Outpatient Other postablative hypothyroidism (Primary Dx) Social [...] Priority Date/Time Associated Diagnosis Comments TSH Routine 06/28/2014 11:03 EDT Other postablative hypothyroidism T4 FREE Routine 06/28/2014 11:03 EDT Other postablative hypothyroidism documented in this encounter Results * (ABNORMAL) TSH (06/28/2014 11:03 EDT) TSH 19.79(H) 0.35 - 5.00 uIU/ml 06/28/2014 12:42 EDT [facility] Blood specimen (specimen) BLOOD SPECIMEN / Unknown 06/28/2014 11:03 EDT 06/28/2014 11:26 EDT Carlos Hipolito Nuñez DO CHEMISTRY & BL OOD GAS ORDERABLES Performing Organization Address City/[facility] Co de Phone Number [facility] [address] [place] [address] * T4 FREE (06/28/2014 11:03 EDT) Free T4 1.2 0.8 - 1.4 ng/dl 06/28/2014 12:42 EDT [facility] Blood specimen (specimen) BLOOD SPECIMEN / Unknown 06/28/2014 11:03 EDT 06/28/2014 11:26 EDT Carlos Fengmyra Nuñez DO CHEMISTRY & BL OOD GAS ORDERABLES Performing Organization Address City/[facility] Co de Phone Number [facility] [address] [place] [address] documented in this encounter Visit Diagnoses Diagnosis Other postablative hypothyroidism- Primary documented in this encounter Care Teams Parts Analyst Relationship Specialty Start Date End Date Talya Robbins MD PCP - General 01/27/13 09/15/15 documented as of this encounter
--- OUTSIDE RECORDS SUMMARY | 2023-12-04 20:20 | XMS_ITS | Encounter Summary ---
Author Organization [facility] Address [address] [place] [address] Care Team Providers Care Pantograph Operator Name Role Phone Sugar Lacy MD Primary Care Provider Encounter Details Date Type Department Care Team (Late st Contact Info) Description 2012 Results Only Imaging [facility] Endocrinology - [facility] [address], [place] [phone] Carlos Nuñez, [address] [facility] [address] [place] [address] Social History Tobacco Use Types [...] Procedure Name Priority Date/Time Associated Diagnosis Comments NM INITAL HYPERTHYROID TREATMENT 10/05/2012 11:54 EDT documented in this encounter Results * NM TX HYPERTHYROID INITIAL (10/05/2012 11:54 EDT) Anatomical Region Laterality Modality Other 10/05/2012 11:5 4 EDT 10/06/2012 16:25 EDT Narrative 10/06/2012 16:25 EDT NM TX HYPERTHYROID INITIAL ??10/05/2012 11:54 AM SIGNS AND SYMPTOMS/COMMENTS: ??Thyrotoxicosis without mention of goiter or cause, without mention of thyrotoxic crisis [id number]; Hyperthyroidism. Treatment options of hyperthyroidism were discussed with the patient. Patient chose treatment was radioactive iodine. The principles of her treatment with radioactive iodine were discussed with the patient. Radiation safety precautions were reviewed with the patient's son in detail. Two consecutive urine tests including one from today were negative. The patient's questions were answered. The patient is aware of high likelihood of becoming hypothyroid and requiring long-term supplementary thyroid hormone replacement. A small chance of worsening of the symptoms are persistent or recurrent hyperthyroidism were discussed with the patient. The patient's son understands the risks and benefits of treatment with radioactive iodine. Written consent was obtained. Laboratory results were reviewed. Thyroid uptake and scan from August 31, 2012 was also reviewed. The patient was given orally capsule of 10 mCi of sodium iodide I-131. Patient is scheduled for followup with Dr. Nuñez. SUMMARY: Treatment of Graves' disease with 10 millicuries of sodium iodide I-131. Procedure Note 10/06/2012 NM TX HYPERTHYROID INITIAL 10/05/2012 11:54 AM SIGNS AND SYMPTOMS/COMMENTS: Thyrotoxicosis without mention of goiter or cause, without mention of thyrotoxic crisis [id number]; Hyperthyroidism. Treatment options of hyperthyroidism were discussed with the patient. Patient chose treatment was radioactive iodine. The principles of her treatment with radioactive iodine were discussed with the patient. Radiation safety precautions were reviewed with the patient's son in detail. Two consecutive urine tests including one from today were negative. The patient's questions were answered. The patient is aware of high likelihood of becoming hypothyroid and requiring long-term supplementary thyroid hormone replacement. A small chance of worsening of the symptoms are persistent or recurrent hyperthyroidism were discussed with the patient. The patient's son understands the risks and benefits of treatment with radioactive iodine. Written consent was obtained. Laboratory results were reviewed. Thyroid uptake and scan from August 31, 2012 was also reviewed. The patient was given orally capsule of 10 mCi of sodium iodide I-131. Patient is scheduled for followup with Dr. Nuñez. SUMMARY: Treatment of Graves' disease with 10 millicuries of sodium iodide I-131. Carlos Nuñez DO IMG NM ORDERAB LES documented in this encounter Visit Diagnoses Not on filedocumented in this encounter Care Teams Pantograph Operator Relationship Specialty Start Date End Date Sugar Lacy MD [address] [place] [phone] PCP - General 02/27/10 01/26/13 documented as of this encounter
--- OUTSIDE RECORDS SUMMARY | 2023-12-04 20:21 | XMS_ITS | Encounter Summary ---
Author Organization [facility] Address [address] [place] [address] Care Team Providers Care Cloth Designer Name Role Phone Sugar Lacy MD Primary Care Provider Reason for Visit * Reason Comments Labs Only Encounter Details Date Type Department Care Team (Latest Contact Info) Description 07/14/2012 14:30 EDT Procedure visit [facility] Endocrinology - [address] [address] Unknown, Provider, Phlebotomy, [facility] Autoimmune thyroiditis Discharge Disposition: Auto Discharge Social History Tobacco [...] file documented as of this encounter Discharge Disposition Disposition Code Departure Means Destination Auto Discharge documented in this encounter Plan of Treatment Not on file documented as of this encounter Procedures Procedure Name Priority Date/Time Associated Diagnosis Comments THYROTROPIN RECEPTOR ANTIBODY Routine 07/14/2012 14:32 EDT Autoimmune thyroiditis T3 FREE Routine 07/14/2012 14:32 EDT Autoimmune thyroiditis TSH Routine 07/14/2012 14:32 EDT Autoimmune thyroiditis T4 FREE Routine 07/14/2012 14:32 EDT Autoimmune thyroiditis documented in this encounter Results * (ABNORMAL) THYROTROPIN RECEPTOR ANTIBODY (07/14/2012 14:32 EDT) Thyrotropin Receptor Ab 2.71(H) 0.00 - 1.75 IU/L [facility] Comment: (Note) At a decision limit of 1.75 IU/L, this assay has 97% sensitivity and 99% specificity for detection of Graves' disease. In healthy individuals and in patients with thyroid disease without diagnosis of Graves' disease, the upper limit of anti-TSHR values are 1.22 IU/L and 1.58 IU/L, respectively (97.5th percentiles). Performed by: [facility], [address], [place] [address], Horseshoer: Chacha Carrington, Ph.D. Blood specimen (specimen) 07/14/2012 14:32 EDT 07/14/2012 20:06 EDT Carlos Nuñez DO CHEMISTRY & BL OOD GAS ORDERABLES Performing Organization Address [facility] Co de Phone Number [facility] [address] [place] [address] * (ABNORMAL) T3 FREE (07/14/2012 14:32 EDT) Pathologist [facility] T3, Free 6.2(H) 2.3 - 4.2 pg/mL [facility] Blood specimen (specimen) 07/14/2012 14:32 EDT 07/14/2012 20:06 EDT Carlos Nuñez DO CHEMISTRY & BL OOD GAS ORDERABLES Performing Organization Address [facility] de Phone Number [facility] [address] [place] [address] * T4 FREE (07/14/2012 14:32 EDT) Free T4 1.5 0.8 - 1.8 ng/dL [facility] Blood specimen (specimen) 07/14/2012 14:32 EDT 07/14/2012 20:06 EDT Carlos Nuñez DO CHEMISTRY & BL OOD GAS ORDERABLES Performing Organization Address [facility] Co de Phone Number [facility] [address] [place] [address] * (ABNORMAL) TSH (07/14/2012 14:32 EDT) TSH <0.02(L) 0.35 - 5.00 uIU/ml [facility] Blood specimen (specimen) 07/14/2012 14:32 EDT 07/14/2012 20:06 EDT Carlos Nuñez DO CHEMISTRY & BL OOD GAS ORDERABLES Performing Organization Address [facility] Co de Phone Number [facility] [address] [place] [address] documented in this encounter Visit Diagnoses Diagnosis Autoimmune thyroiditis Chronic lymphocytic thyroiditis documented in this encounter Care Teams Cloth Designer Relationship Specialty Start Date End Date Sugar Lacy MD [address] [place] [phone] PCP - General 02/27/10 01/26/13 documented as of this encounter
--- OUTSIDE RECORDS SUMMARY | 2023-12-04 20:21 | XMS_ITS | Encounter Summary ---
Author Organization [facility] Address [address] [place] [address] Care Team Providers Care Lunchroom Food Service Supervisor Name Role Phone Sugar Lacy MD Primary Care Provider [phone] Encounter Details Date Type Department Care Team (Late st Contact Info) Description 07/27/2012 Results Only Imaging [facility] Endocrinology - [facility] [address] [place], [place] [phone] Carlos Nuñez, 62 [facility] [address] [place] [address] Social History Tobacco Use Types [...] Name Priority Date/Time Associated Diagnosis Comments NM THYROID DOSE NC 08/30/2012 11 :41 EDT documented in this encounter Results * NM THYROID DOSE NC (08/30/2012 11:41 EDT) Anatomical Region Laterality Modality Other 08/30/2012 11:4 1 EDT Narrative 08/30/2012 11:41 EDT Non Reportable Exam Procedure Note 08/30/2012 Non Reportable Exam Carlos Nuñez DO IMG NM ORDERAB LES documented in this encounter Visit Diagnoses Not on filedocumented in this encounter Care Teams Lunchroom Food Service Supervisor Relationship Specialty Start Date End Date Sugar Lacy MD [address] [place] [phone] PCP - General 02/27/10 01/26/13 documented as of this encounter
--- OUTSIDE RECORDS SUMMARY | 2023-12-04 20:21 | XMS_ITS | Encounter Summary ---
Author Organization [facility] Address [address] [place] [address] Care Team Providers Care Repair Electric Motor Assembler Name Role Phone Sugar Lacy MD Primary Care Provider Reason for Referral * (Routine) - Closed Specialty Diagnoses / Procedures Referred By Contac t Referred To Contact Diagnoses Obesity Procedures LIVER FUNCTION TESTS Nancy Cleveland RN [address] [place] [address] Referral ID Status Reason Start Date Expiration Date Visits Re quested Visits Authorized [id number] Closed 02/16/2011 1 1 * (Routine) - Closed Specialty Diagnoses / Procedures Referred By Contac t Referred To Contact Diagnoses Thyroiditis, autoimmune Procedures T3, TOTAL Nancy Cleveland RN [address] [place] [address] Referral ID Status Reason Start Date Expiration Date Visits Re quested Visits Authorized [id number] Closed 02/16/2011 1 1 * (Routine) - Closed Specialty Diagnoses / Procedures Referred By Contac t Referred To Contact Diagnoses Thyroiditis, autoimmune Procedures T4 Nancy Celveland RN [address] [place] [address] Referral ID Status Reason Start Date Expiration Date Visits Re quested Visits Authorized [id number] Closed 02/16/2011 1 1 * (Routine) - Closed Specialty Diagnoses / Procedures Referred By Contac t Referred To Contact Diagnoses Thyroiditis, autoimmune Procedures T4 FREE Nancy Cleveland RN [address] [place] [address] Referral ID Status Reason Start Date Expiration Date Visits Re quested Visits Authorized [id number] Closed 02/16/2011 1 1 * (Routine) - Closed Specialty Diagnoses / Procedures Referred By Contac t Referred To Contact Diagnoses Thyroiditis, autoimmune Procedures TSH Nancy Cleveland RN [address] [place] [address] Referral ID Status Reason Start Date Expiration Date Visits Re quested Visits Authorized [id number] Closed 02/16/2011 1 1 Reason for Visit * Reason Onset Date Comments Results 02/16/2011 Medication Management 02/16/2011 Labs Only 02/16/2011 Encounter Details Date Type Department Care Team (Late st Contact Info) Description 02/16/2011 Telephone [facility] Pediatric [place] [address] Nancy Cleveland RN [address] [place] [address] Results; Medication Management; Labs Only Social History Tobacco Use Types Packs/Day Years Used Date Smoking Tobacco: Every Day Cigarettes 2 5 Cigars Alcohol Use Standard Drinks/Week Comments No 0 (1 standard drink = 0.6 oz pur e alcohol) Sex and Gender Information Value Date Recorded Sex Assigned at Not on file Gender Identity Female 03/02/2019 11:17 EST Sexual Orientation Not on file documented as of this encounter Ordered Prescriptions Prescription Sig Dispensed Refills Start Date End Da te methimazole (TAPAZOLE) 10 mg tabletIndications:Thyroidi tis, autoimmune Take 1 Tab by mouth 2 times daily. 180 Tab 1 02/16/2011 03/13/2011 documented in this encounter Miscellaneous Notes * Telephone Encounter - Nancy Cleveland RN - 02/17/2011 1058 EST Spoke with mom regarding TFT's, with need to decrease methimazole to 10 mg BID. Labs to be done in 1 month, req to be mailed. * Telephone Encounter - Neelima Nazario - 02/17/2011 0959 EST Tiny's mother returned call documented in this encounter Plan of Treatment Not on file documented as of this encounter Results * LIVER FUNCTION TESTS (03/13/2011 7:05 EST) [facility]in, External 4.2 [facility] Total Protein, External 6.8 [facility] Alkaline Phosphatase, External 62 [facility] ALT, External 23 [facility] AST, External 15 [facility] Unconjugated Bilirubin [facility] Conjugated Bilirubin, External 0 [facility] Bilirubin, Total, External 0.3 [facility] Blood specimen (specimen) 03/13/2011 7:05 EST Paradise Reyes MD CHEMISTRY & BLOOD GA S ORDERABLES [facility] * T3, TOTAL (03/13/2011 7:05 EST) T3 TOTAL, External 143 85 - 188 [facility] Comment:MK Blood specimen (specimen) 03/13/2011 7:05 EST Paradise Reyes MD CHEMISTRY & BLOOD GA S ORDERABLES Performing Organization Address City/[facility]/ZIP Co de Phone Number [facility] * (ABNORMAL) T4 (03/13/2011 7:05 EST) T4, Total, External 4.54(A) 5.53 - 11.0 [facility] Comment:03/13/11: currently o n methimazole 10 mg BID (dose decreased on 01/2011 from 15 mg BID); decrease to 10 mg in am, 5 mg in pm; labs in 2 mos (TSH, FT4, TT4, T3) Blood specimen (specimen) 03/13/2011 7:05 EST Paradise Reyes MD CHEMISTRY & BLOOD GA S ORDERABLES Performing Organization Address [facility] Co de Phone Number [facility] * (ABNORMAL) T4 FREE (03/13/2011 7:05 EST) Free T4, External 0.69(A) 0.78 - 2.19 [facility] Comment:03/13/11: currently o n methimazole 10 mg BID (dose decreased on 01/2011 from 15 mg BID); decrease to 10 mg in am, 5 mg in pm; labs in 2 mos (TSH, FT4, TT4, T3) Blood specimen (specimen) 03/13/2011 7:05 EST Paradise Reyes MD CHEMISTRY & BLOOD GA S ORDERABLES Performing Organization Address [facility] Co de Phone Number [facility] * (ABNORMAL) TSH (03/13/2011 7:05 EST) TSH, External 6.06(A) 0.47 - 4.68 [facility] Comment:03/13/11: currently o n methimazole 10 mg BID (dose decreased on 01/2011 from 15 mg BID); decrease to 10 mg in am, 5 mg in pm; labs in 2 mos (TSH, FT4, TT4, T3) Blood specimen (specimen) 03/13/2011 7:05 EST Paradise Reyes MD CHEMISTRY & BLOOD GA S ORDERABLES Performing Organization Address [facility] Co de Phone Number [facility] documented in this encounter Visit Diagnoses Diagnosis Thyroiditis, autoimmune Chronic lymphocytic thyroiditis Obesity Obesity, unspecified Thyroiditis, autoimmune Chronic lymphocytic thyroiditis Obesity Obesity, unspecified documented in this encounter Discontinued Medications Medication Sig Discontinue Reason Start Date End Da te methimazole (TAPAZOLE) 10 mg tablet Take 15 mg by mouth 2 times daily. 1.5 tabs in the morning and afternoon. 30 mg total. Reorder 05/15/2010 02/16/2011 documented as of this encounter Care Teams Repair Electric Motor Assembler Relationship Specialty Start Date End Date Sugar Lacy MD [address] [place] [phone] PCP - General 02/27/10 01/26/13 documented as of this encounter
--- OUTSIDE RECORDS SUMMARY | 2023-12-04 20:21 | XMS_ITS | Encounter Summary ---
Author Organization [facility] Address [address] [place] [address] Care Team Providers Care Bench Precision Assembler Name Role Phone Sugar Lacy MD Primary Care Provider Reason for Visit * Reason Onset Date Comments Appointment Related 09/13/2012 Returning Call 09/14/2012 Encounter Details Date Type Department Care Team (Late st Contact Info) Description 09/13/2012 Telephone [facility] Endocrinology - [address] [address] Chacha Guzman RN Appointment Related; Returning Call Social History Tobacco Use Types [...] encounter Miscellaneous Notes * Telephone Encounter - Noemi Pedersen - 09/14/2012 0933 EDT Pt requesting call back from Chacha * Telephone Encounter - Chacha Guzman RN - 09/13/2012 1521 EDT Phone call to Tiny (left message for her to call back) Ready to set up appointment at [facility] for her Graves Disease. Phone call to Tiny Appointment as follows for Treatment only: Wednesday-8:45 AM to register and UPT at lab. 9:15 treatment NPO after 5:45 AM. Verbalizes understanding with no barriers. 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
--- OUTSIDE RECORDS SUMMARY | 2023-12-04 20:21 | XMS_ITS | Encounter Summary ---
Author Organization [facility] Address [address] [place] [address] Care Team Providers Care Mechanical Insulator Name Role Phone Sugar Lacy MD Primary Care Provider Reason for Referral * (Routine/Next Available) - Closed Specialty Diagnoses / Procedures Referred By Contac t Referred To Contact Diagnoses Thyroiditis, autoimmune Procedures T3, TOTAL Nancy Cleveland RN [address] [place] [address] Referral ID Status Reason Start Date Expiration Date Visits Re quested Visits Authorized [id number] Closed 07/15/2011 1 1 * (Routine/Next Available) - Closed Specialty Diagnoses / Procedures Referred By Contac t Referred To Contact Diagnoses Thyroiditis, autoimmune Procedures T4 Nancy Cleveland RN [address] [place] [address] Referral ID Status Reason Start Date Expiration Date Visits Re quested Visits Authorized [id number] Closed 07/15/2011 1 1 * (Routine/Next Available) - Closed Specialty Diagnoses / Procedures Referred By Contac t Referred To Contact Diagnoses Thyroiditis, autoimmune Procedures T4 FREE Nancy Cleveland, ROULA [address] [place] [address] Referral ID Status Reason Start Date Expiration Date Visits Re quested Visits Authorized [id number] Closed 07/15/2011 1 1 * (Routine/Next Available) - Closed Specialty Diagnoses / Procedures Referred By Eugene asencio Referred To Contact Diagnoses Thyroiditis, autoimmune Procedures TSH Nancy Cleveland RN [address] [place] [address] Referral ID Status Reason Start Date Expiration Date Visits Re quested Visits Authorized [id number] Closed 07/15/2011 1 1 Reason for Visit * Reason Onset Date Comments Results 07/15/2011 Labs Only 07/15/2011 Encounter Details Date Type Department Care Team (Late st Contact Info) Description 07/15/2011 Telephone [facility] Pediatric Endocrinology - [place] [address] [place] [address] Nancy Cleveland RN [address] [place] [address] Results; Labs Only Social History Tobacco Use Types [...] Telephone Encounter - Nancy Cleveland RN - 07/15/2011 1899 EDT My chart message sent regarding external lab results. documented in this encounter Plan of Treatment Not on file documented as of this encounter Results * T4 (09/28/2011 13:24 EDT) T4, Total 7.9 4.5 - 10.9 ug/dL [facility] Blood specimen (specimen) 09/28/2011 13:24 EDT 09/28/2011 13:31 EDT Paradise Reyes MD CHEMISTRY & BLOOD GA S ORDERABLES [facility] [address] [place] [address] * T4 FREE (09/28/2011 13:24 EDT) Free T4 1.0 0.8 - 1.8 ng/dL [facility] Blood specimen (specimen) 09/28/2011 13:24 EDT 09/28/2011 13:31 EDT Paradise Reyes MD CHEMISTRY & BLOOD GA S ORDERABLES Performing Organization Address [facility] de Phone Number [facility] [address] [place] [address] * TSH (09/28/2011 13:24 EDT) TSH 2.18 0.35 - 5.00 uIU/ml [facility] Blood specimen (specimen) 09/28/2011 13:24 EDT 09/28/2011 13:31 EDT Paradise Reyes MD CHEMISTRY & BLOOD GA S ORDERABLES Performing Organization Address [facility] de Phone Number [facility] [address] [place] [address] documented in this encounter Visit Diagnoses Diagnosis Thyroiditis, autoimmune- Primary Chronic lymphocytic thyroiditis documented in this encounter Orders Lab Orders Without Results Count Last Ordered D ate First Ordered Date T3, TOTAL 1 07/15/2011 documented in this encounter Care Teams Mechanical Insulator Relationship Specialty Start Date End Date Sugar Lacy MD [address] [place] [phone] PCP - General 02/27/10 01/26/13 documented as of this encounter
--- OUTSIDE RECORDS SUMMARY | 2023-12-04 20:21 | XMS_ITS | Encounter Summary ---
Author Organization [facility] Address [address] [place] [address] Care Team Providers Care Punch Press Operator Name Role Phone Sugar Lacy MD Primary Care Provider Reason for Visit * Reason Onset Date Comments Appointment Related 08/31/2012 Encounter Details Date Type Department Care Team (Late st Contact Info) Description 08/31/2012 Telephone [facility] Endocrinology - [facility] [address] [place] [address] Carlos Nuñez DO [address] [facility] [address] [place] [phone] Appointment Related Social History Tobacco [...] Telephone Encounter - Carlos Nuñez DO - 09/02/2012 8518 EDT She has a confusing thyroid history that is more clear now. I want her to come in to discuss treatment options * Telephone Encounter - Carlos Nuñez DO - 08/31/2012 4969 EDT Please contact patient via phone. [facility] uptake and scan was consist ant with Graves disease. I would like her to come and discussoptions for treatment. Can squeeze her in next week on Wednesday afternoon if she is able. documented in this encounter Plan of Treatment Not on file documented as of this encounter Visit Diagnoses Not on filedocumented in this encounter Care Teams Punch Press Operator Relationship Specialty Start Date End Date Sugar Lacy MD [address] [place] [phone] PCP - General 02/27/10 01/26/13 documented as of this encounter
--- OUTSIDE RECORDS SUMMARY | 2023-12-04 20:21 | XMS_ITS | Encounter Summary ---
Author Organization [facility] Address [address] [place] [address] Care Team Providers Care Career Counselor Name Role Phone Sugar Lacy MD Primary Care Provider Encounter Details Date Type Department Care Team (Late st Contact Info) Description 09/28/2011 Phlebotomy Only [facility] [address] [place] [address] Senior Quantity Surveyor, Outpatient Thyroiditis, autoimmune; Subacute thyroiditis; Abnormal thyroid function test; Fatigue Social History Tobacco Use Types Packs/Day Years [...] Procedure Name Priority Date/Time Associated Diagnosis Comments T3, TOTAL Routine 09/28/2011 13:24 EDT Thyroiditis, autoimmune TSH Routine 09/28/2011 13:24 EDT Thyroiditis, autoimmune T4 FREE Routine 09/28/2011 13:24 EDT Thyroiditis, autoimmune T4 Routine 09/28/2011 13:24 EDT Thyroiditis, autoimmune documented in this encounter Results * T4 (09/28/2011 13:24 EDT) T4, Total 7.9 4.5 - 10.9 ug/dL [facility] Blood specimen (specimen) 09/28/2011 13:24 EDT 09/28/2011 13:31 EDT Paradise Reyes MD CHEMISTRY & BLOOD GA S ORDERABLES Performing Organization Address [facility] Co de Phone Number [facility] [address] [place] [address] * T4 FREE (09/28/2011 13:24 EDT) Free T4 1.0 0.8 - 1.8 ng/dL [facility] Blood specimen (specimen) 09/28/2011 13:24 EDT 09/28/2011 13:31 EDT Paradise Reyes MD CHEMISTRY & BLOOD GA S ORDERABLES Performing Organization Address [facility] Co de Phone Number [facility] [address] [place] [address] * TSH (09/28/2011 13:24 EDT) Pathologist [facility] TSH 2.18 0.35 - 5.00 uIU/ml [facility] Blood specimen (specimen) 09/28/2011 13:24 EDT 09/28/2011 13:31 EDT Paradise Reyes MD CHEMISTRY & BLOOD GA S ORDERABLES Performing Organization Address [facility] de Phone Number [facility] [address] [place] [address] * T3, TOTAL (09/28/2011 13:24 EDT) T3, Total 101 60 - 181 ng/dL [facility] Blood specimen (specimen) 09/28/2011 13:24 EDT 09/28/2011 13:31 EDT Paradise eRyes MD CHEMISTRY & BLOOD GA S ORDERABLES [facility] [address] [place] [address] documented in this encounter Visit Diagnoses Diagnosis Thyroiditis, autoimmune Chronic lymphocytic thyroiditis Subacute thyroiditis Abnormal thyroid function test Nonspecific abnormal results of thyroid function study Fatigue Other malaise and fatigue documented in this encounter Care Teams Career Counselor Relationship Specialty Start Date End Date Sugar Lacy MD [address] [place] [address] PCP - General 02/27/10 01/26/13 documented as of this encounter
--- OUTSIDE RECORDS SUMMARY | 2023-12-04 20:21 | XMS_ITS | Encounter Summary ---
Author Organization [facility] Address [address] [place] [address] Care Team Providers Care Exercise Scientist Name Role Phone Sugar Lacy MD Primary Care Provider [phone] Talya Robbins MD Primary Care Provider Maureen Jack Larson MD Primary Care Provider Unavailable Ariana Mcghee MD Primary Care Provider [phone] Reason for Visit * Reason Onset Date Comments Results 07/19/2012 Encounter Details Date Type Department Care Team (Late st Contact Info) Description 07/19/2012 Telephone [facility] Endocrinology - [facility] [address] [place] [address] Carlos Nuñez, DO [address] [facility] [address] [place] [address] Results Social History Tobacco Use [...] * Telephone Encounter - Cassie Tena - 07/27/2012 1045 EDT Gave Tiny her schedule: 08/16 check in 10:30, dose at 11. Uptake at 2:30 08/17 8am scan 8:45 uptake. * Telephone Encounter - Cassie Tena - 07/22/2012 1429 EDT Pt has been protocol. Need to schedule. LMTCB * Telephone Encounter - Carlos Nuñez DO - 07/19/2012 1457 EDT Please contact patient via phone. [facility]. Advise patient that TSH is low and Free T3 is elevated consistent with hyperthyroidism. Her TSH receptor antibody is positive. I believe she has Graves disease and may require treatment. I would like to confirm the diagnosis (pt with a long history of abnormal tests and lab results that are not consistent) with an uptake and scan at the hospital. I would then like the patient to come in to the office after the scan results are back to discuss results and decided on a treatment plan. I have placed the order for the uptake and scan at [facility]. documented in this encounter Plan of Treatment Not on file documented as of this encounter Visit Diagnoses Diagnosis Hyperthyroidism- Primary Thyrotoxicosis without mention of goiter or other cause, without mention of thyrotoxic crisis or storm documented in this encounter Care Teams Exercise Scientist Relationship Specialty Start Date End Date Sugar Lacy MD [address] [place] [phone] PCP - General 02/27/10 01/26/13 Talya Robbins MD PCP - General 01/27/13 09/15/15 Jack Younger MD PCP - General 09/16/15 09/30/15 Ariana Mcghee MD PCP - General 10/01/15 06/17/16 documented as of this encounter
--- OUTSIDE RECORDS SUMMARY | 2023-12-04 20:21 | XMS_ITS | Encounter Summary ---
Author Organization [facility] Address [address] [place] [address] Care Team Providers Care Parking Enforcement Manager Name Role Phone Sugar Lacy MD Primary Care Provider Reason for Visit * Reason Comments Gynecologic Exam Encounter Details Date Type Department Care Team (Latest Contact Info) Description 12/18/2010 9:00 EDT Office Visit [facility] OBGYN Services - [facility] [address] [place], [place] [id number] Ariel oSto MD MSc Contraception (Primary Dx); Amenorrhea Social History Tobacco Use Types Packs/Day Years Used Date Smoking Tobacco: Every Day Cigarettes 2 5 Cigars Tobacco Cessation:Ready to Q uit: Yes Alcohol Use Standard Drinks/Week Comments No 0 (1 standard drink = 0.6 oz pur e alcohol) Sex and Gender Information Value Date Recorded Sex Assigned at Not on file Gender Identity Female 03/02/2019 11:17 EST Sexual Orientation Not on file documented as of this encounter Last Filed Vital Signs Vital Sign Reading Time Taken Comments Blood Pressure - - Pulse - - Temperature - - Respiratory Rate - - Oxygen Saturation - - Inhaled Oxygen Concentration - - Weight 76.7 kg (169 lb) 12/18/2010907 EDT Height 158.3 cm (5' 2.34) 12/18/2010 0908 EDT Body Mass Index 30.57 12/18/2010 09 EDT Body Mass Index Percentile 95.47% 12/18/2010 090 8 EDT Growth Chart: CDC (Girls, 2- 20 Years) documented in this encounter Progress Notes * Ariel Soto MD - 12/18/2010 1012 EDT S. 15 yo G0 needs contraception. Uses condoms irregularly. Forgot pills, had menorrhagia on depo. 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 O. No exam today. upt = neg A. Desires contraception. P. Info given re: implanon. precert done. Will return in 10 days at time of menses. Will stop valtrex when scrip expires in 04/2011 and come in for sx to be evaluated for true recurrence. Ariel Soto MD documented in this encounter Plan of Treatment Not on file documented as of this encounter Procedures Procedure Name Priority Date/Time Associated Diagnosis Comments POCT TEST, VISUAL READ Routine 12/18/2010 10:27 EDT Amenorrhea documented in this encounter Results * POCT URINE TEST (12/18/2010 10:27 EDT) Test, Urine, POC Negative Reference Range, Negative POINT OF CARE Control Line Present Yes POINT OF CARE Background Clear? Yes POINT OF CARE Urine specimen (specimen) 12/18/2010 10:27 EDT Ariel Soto MD MSc POINT OF CA RE TEST ORDERABLES POINT OF CARE documented in this encounter Visit Diagnoses Diagnosis Contraception- Primary Unspecified contraceptive management Amenorrhea Absence of menstruation documented in this encounter Care Teams Parking Enforcement Manager Relationship Specialty Start Date End Date Sugar Lacy MD [address] [place] [phone] PCP - General 02/27/10 01/26/13 documented as of this encounter
--- OUTSIDE RECORDS SUMMARY | 2023-12-04 20:21 | XMS_ITS | Encounter Summary ---
Author Organization [facility] Address [address] [place] [address] Care Team Providers Care Hunting Guide Name Role Phone Sugar Cabrera MD Primary Care Provider [phone] Reason for Visit * Reason Comments Thyroid Problem Vitamin D Deficiency Obesity Encounter Details Date Type Department Care Team (Late st Contact Info) Description 04/20/2012 9:00 EST Office Visit [facility] Pediatric Endocrinology - Main [place] [address] [place], [place] [address] Paradise Reyes MD [address] [phone] Misha Briseno MD [address] [place] [address] Autoimmune thyroiditis (Primary Dx); Obesity; Vitamin d deficiency Discharge Disposition: Auto Discharge Social History Tobacco [...] Sign Reading Time Taken Comments Blood Pressure 122/56 04/20/2012 0859 EST Pulse 72 04/20/2012 0859 EST Temperature - - Respiratory Rate - - Oxygen Saturation - - Inhaled Oxygen Concentration - - Weight 74.5 kg (164 lb 3.9 oz) 04/20/[address] Height 158.3 cm (5' 2.32) 04/20/2012 0859 EST Body Mass Index 29.73 04/20/2012 0859 EST Body Mass Index Percentile 93.92% 04/20/2012 085 9 EST Growth Chart: [facility] (Girls, 2- 20 Years) documented in this encounter Discharge Disposition Disposition Code Departure Means Destination Auto Discharge documented in this encounter Progress Notes * Paradise Shannon MD - 04/20/2012 0904 EST Pediatric Endocrinology Follow Up Patient Identification: 16 y.o. 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 Tiny initially presented (08/2008) with high FT4 and suppressed TSH (FT4 3.8, TSH <0.02) 12/06while on Alvarado which was subsequently discontinued. Her 123 Iodine uptake at that time was low (1.5%, nl.10-30%), she had negative TSHr-Ab, TSI, anti TPO, and positive anti TG Ab. Her thyroid glandwas diffusely enlarged, she had on and off complaint of discomfort with swallowing, had mild intermi ttent symptoms of hyperthyroidism, no beta blockers were started. 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 TFTs were monitored periodically with fluctuating results: euthyroid, subclinical hyperthyroid to clear hyperthyroid with undetectable TSH. On repeated antibodies testing (10/2009) her TSHr and TSI were positive; she was hyperthyroid clinically and biochemically (FT4 2.2), methimazole was started on 03/2010. She has been tolerating antithyroid medication well, no reported side effects; her compliance with antithyroid medication was inconsistent; subsequently discontinued when TFTs were reassuring(04/2011?). Tiny was diagnosed with vitamin D insufficient, supplementing was recommended, taken inconsistently and subsequently discontinued by patient. Interval illness: diarrhea lasting 3 weeks, + sick contact, at present still has at least 2 stools a day (more than usually) with variable consistency Tiny graduated from in the spring 2011, at present takes few college classes and works at [employer]. She has had no difficulties with asthma since last seen, typically needs inhailer with exercise only, has been very inactive. Tiny does not follow any specific diet, usually eats once a day in the evening, reports having limited food sources. She gained significant amount of weight since was last seen. Denies polyuria, polydipsia, nocturia or enuresis. Positive for: Variable energy level More frequent stools of variable consistency Intermittent nausea, likely if does not eat for a whole day and then has dinner only Skin breaking out, mostly on hands washes dishes, acne on face and upper back, no excessive hair loss, no generalized skin dryness, no nail changes wears glasses for distant vision, no recent change in rx temperature intolerance: feels hot more often, no palpitations SOB when walks up the stairs, no chest pain craves sweet and salty food Negative for: neck swelling, voice hoarseness, dysphagia, appetite change, tremor, palpitations, difficulty concentrating, diffuculty sleeping, bone pain and interval bone fractures, pain with eye movement, visualchanges Review of Systems: A ten point review of systems was performed. Pertinent items are noted in the HPI, all others are negative. Problem List Patient Active Problem List Diagnoses ??? Autoimmune thyroiditis ??? Obesity ??? Acanthosis nigricans ??? Vitamin D deficiency ??? Subderm cntrcptv surveil Medications: Current Outpatient Prescriptions Medication Sig Dispense Refill ??? Etonogestrel (IMPLANON) 68 mg Impl 68 mg by Subdermal route once. 68 mg 0 ??? ALBUTEROL INHL Inhale as directed as needed. 2 puffs as needed Adherence with endocrine medications: not applicable Does not take vitamins or supplements. Allergies: Izzyabid Social History: Social History ??? Lives with Other lives with boyfriend ??? Education College (freshman) takes [employer] classes once a week ??? Employment Part-time job [employer] in [employer] Physical Exam: Vitals: BP 122/56 Pulse 72 Ht 158.3 cm (62.32) Wt 74.5 kg (164 lb 3.9 oz) BMI 29.73 kg/m2 88.4% systolic and 21.8% diastolic of BP percentile by age, sex, and height. Height: 158.3 cm (62.32) (22.46%) Weight: 74.5 kg (164 lb 3.9 oz) (90.86%) Body mass index is 29.73 kg/(m^2). 93.93%ile based on CDC 2-20 Years BMI-for-age data. General Appearance: comfortable, well-hydrated, in no apparent distress, well- appearing and appearsstated age, obese Dysmorphisms: none appreciated Head: normocephalic ENT: moist mucous membranes and oropharnyx clear Eyes: EOMI and JASON Thyroid: homogenous, no palpable nodularity and nontender, fullness over thyroid bed Lymphatic: no palpable lymphadenopathy of neck Respiratory: clear, no wheezes or crackles and good air entry bilaterally Cardiovascular: RRR, normal S1 and S2 and no murmur Gastrointestinal: benign, soft, non-tender, no palpable masses and no hepatosplenomegaly Neurologic: cranial nerves II-XII intact, brisk reflexes, negative Chvostec, no tremor, good tone and no tongue fasciculations Musculoskeletal: no appreciable bony deformities, no clubbing and no scoliosis Skin: normal temperature, normal texture, normal turgor and acanthosis nigricans of neck and axillae, facial acne, dry skin on hands only Sexual Development: deferred Data Review/Interval Investigations: Date: 04/13/2012 T3 130, T4 6.99, free T4 1.09, TSH 0.129 TSI 1.2 (<1.3) TSH r. Abs not send (instead lab run TPO, which was positive) Assessment: 16 y.o. old female with autoimmune thyroiditis. Briefly treated with methimazole, TFTs' improved, patient non-compliant with meds and those were subsequently discontinued (04/2011?). On exam fullness over thyroid bed, no nodularity appreciated. Ongoing subclinical hyperthyroidism. Multiple non specific complains. Vitamin D insufficiency, not taking supplementation as recommended. Obesity, interval weight gain, no S&S polyuria or polydipsia. Suggestions/Plan: Investigations: none at this time Topics reviewed today: symptoms and signs of hypothyroidism and hyperthyroidism likelikhood of spontaneous remission in Grave's disease bone health Medications prescribed: none should restart Ca and vitamin D supplements Additional recommendations: repeat thyroid function tests locally in 3 months or earlier with new S&S Disposition: Follow up in Adult Endocrine clinic was scheduled in [address] Nuñez I spent a total of 30 minutes in face to face time with this patient and 20 minutes of that time was spent in counseling and coordination of care as described in the progress note. Paradise Shannon MD 04/20/2012 9:25 documented in this encounter Plan of Treatment Not on file documented as of this encounter Visit Diagnoses Diagnosis Autoimmune thyroiditis- Primary Chronic lymphocytic thyroiditis Obesity Obesity, unspecified Vitamin D deficiency Unspecified vitamin D deficiency documented in this encounter Care Teams Hunting Guide Relationship Specialty Start Date End Date Sugar Cabrera MD [address] [place] [phone] PCP - General 02/27/10 01/26/13 documented as of this encounter
--- OUTSIDE RECORDS SUMMARY | 2023-12-04 20:21 | XMS_ITS | Encounter Summary ---
Author Organization [facility] Address [address] [place] [address] Care Team Providers Care Pipe Line Inspector Name Role Phone Sugar Lacy MD Primary Care Provider [phone] Reason for Visit * Reason Onset Date Comments Results 03/13/2011 Medication Management 03/13/2011 Labs Only 03/13/2011 Encounter Details Date Type Department Care Team (Late st Contact Info) Description 03/13/2011 Telephone [facility] Pediatric Endocrinology - [facility] [address] [place] [address] Nancy Cleveland RN [address] [place] [address] Results; Medication Management; Labs Only Social History [...] methimazole (TAPAZOLE) 10 mg tabletIndications:Thyroidi tis, autoimmune 10 mg by mouth in the morning, 5 mg by mouth in the evening. 135 Tab 1 03/13/2011 04/30/2011 documented in this encounter Miscellaneous Notes * Telephone Encounter - Nancy Cleveland RN - 03/13/2011 9689 EST 03/13/11: currently on methimazole 10 mg BID (dose decreased on 01/2011 from 15 mg BID); decrease to10 mg in am, 5 mg in pm; labs in 2 mos (TSH, FT4, TT4, T3) - results note from Dr. Shannon. Left message on phone for mom, Gricelda, regarding external TFT results and dose change for methimazole. [employer] Active, message also relayed this way. documented in this encounter Plan of Treatment Not on file documented as of this encounter Visit Diagnoses Diagnosis Thyroiditis, autoimmune- Primary Chronic lymphocytic thyroiditis documented in this encounter Discontinued Medications Medication Sig Discontinue Reason Start Date End Da te methimazole (TAPAZOLE) 10 mg tabletIndications:Thyroid itis, autoimmune Take 1 Tab by mouth 2 times daily. Reorder 02/16/2011 03/13/2011 documented as of this encounter Care Teams Pipe Line Inspector Relationship Specialty Start Date End Date Sugar Lacy MD [address] [place] [phone] PCP - General 02/27/10 01/26/13 documented as of this encounter
--- OUTSIDE RECORDS SUMMARY | 2023-12-04 20:21 | XMS_ITS | Encounter Summary ---
Author Organization [facility] Address [address] [place] [address] Care Team Providers Care Water Chaser Name Role Phone Sugar Lacy MD Primary Care Provider Reason for Visit * Reason Onset Date Comments Results 07/15/2011 Encounter Details Date Type Department Care Team (Late st Contact Info) Description 07/15/2011 Orders Only [facility] Pediatric Endocrinology - Main [place] [address] [place] [address] Nancy Cleveland RN [address] [place] [address] Thyroiditis, autoimmune (Primary Dx) Social History Tobacco Use Types [...] Priority Date/Time Associated Diagnosis Comments TSH Routine 07/13/2011 11:24 EDT Thyroiditis, autoimmune T4 FREE Routine 07/13/2011 11:24 EDT Thyroiditis, autoimmune T4 Routine 07/13/2011 11:24 EDT Thyroiditis, autoimmune documented in this encounter Results * T4 (07/13/2011 11:24 EDT) T4, Total, External 7.11 5.53 - 11.0 [facility] Blood specimen (specimen) 07/13/2011 11:24 EDT Paradise Reyes MD CHEMISTRY & BLOOD GA S ORDERABLES Performing Organization Address City/[facility]/ZIP Co de Phone Number [facility] * T4 FREE (07/13/2011 11:24 EDT) Free T4, External 1.07 0.78 - 2.19 [facility] Blood specimen (specimen) 07/13/2011 11:24 EDT Paradise Reyes MD CHEMISTRY & BLOOD GA S ORDERABLES Performing Organization Address [facility]/ZIP Co de Phone Number [facility] * TSH (07/13/2011 11:24 EDT) TSH, External 0.747 0.47 - 4.68 [facility] Blood specimen (specimen) 07/13/2011 11:24 EDT Paradise Reyes MD CHEMISTRY & BLOOD GA S ORDERABLES Performing Organization Address City/[facility]/ZIP Co de Phone Number [facility] documented in this encounter Visit Diagnoses Diagnosis Thyroiditis, autoimmune- Primary Chronic lymphocytic thyroiditis documented in this encounter Care Teams Water Chaser Relationship Specialty Start Date End Date Sugar Lacy MD [address] [place] [address] PCP - General 02/27/10 01/26/13 documented as of this encounter
--- OUTSIDE RECORDS SUMMARY | 2023-12-04 20:21 | XMS_ITS | Encounter Summary ---
Author Organization [facility] Address [address] [place] [address] Care Team Providers Care Mold Unloader Name Role Phone Sugar Lacy MD Primary Care Provider [phone] Reason for Visit * Reason Onset Date Comments Labs Only 01/28/2011 Encounter Details Date Type Department Care Team (Late st Contact Info) Description 01/28/2011 Telephone [facility] Pediatric Endocrinology - Main [place] [address] [place], [place] [address] Paradise Reyes MD [address] [phone] Labs Only Social History Tobacco Use Types [...] Telephone Encounter - Nancy Cleveland RN - 01/29/2011 1021 EST Spoke with mom, Gricelda, to let her know orders sheet faxed to [facility] lab. She mentioned still no access to Tiny's [employer] despite Tiny signing form. Activation pending, code given to mom. * Telephone Encounter - Neelima Nazario - 01/28/2011 1239 EST Tiny's mother is requesting a new copy of lab orders to be drawn [facility]. Cannot find the one she was given. Can mail to mother or fax to hospital but she is not sure of hospital fax number. documented in this encounter Plan of Treatment Not on file documented as of this encounter Visit Diagnoses Not on filedocumented in this encounter Care Teams Mold Unloader Relationship Specialty Start Date End Date Sugar Lacy MD [address] [place] [phone] PCP - General 02/27/10 01/26/13 documented as of this encounter
--- OUTSIDE RECORDS SUMMARY | 2023-12-04 20:21 | XMS_ITS | Encounter Summary ---
Author Organization [facility] Address [address] [place] [address] Care Team Providers Care Footwear Stitcher Name Role Phone Sugar Lacy MD Primary Care Provider Encounter Details Date Type Department Care Team (Late st Contact Info) Description 08/10/2012 Results Only Imaging [facility] Endocrinology - [facility] [address], [place] [id number] Carlos Nuñez, [address] [facility] [address] [place] [address] Social History Tobacco Use Types [...] Priority Date/Time Associated Diagnosis Comments NM THYROID UPTAKE + SCAN MULTI 08/31/2012 8:53 EDT documented in this encounter Results * NM THYROID UPTAKE + SCAN MULTI (08/31/2012 8:53 EDT) Anatomical Region Laterality Modality Other 08/31/2012 8:53 EDT 08/31/2012 17:02 EDT Narrative 08/31/2012 17:02 EDT NM THYROID UPTAKE + SCAN MULTI ??08/31/2012 8:53 AM Signs and Symptoms/Comments: ??242.90-Thyrotoxicosis without mention of goiter or other cause, without mention of thyrotoxic crisis or [id number]; Hyperthyroidism Comparison: Ultrasound of the thyroid obtained July 2008. Technique: After the oral ingestion of 230 uCi I-123 [place], using a pinhole collimator, thyroid images were obtained in anterior, left anterior oblique and right anterior oblique projections at 4 and 24 hours. Findings: On exam the thyroid was at the upper limits of normal for size with no nodules felt. The thyroid scan shows abnormal diffuse increased radiotracer uptake of 29.4% at 4 hours and 67.5% at 24 hours. No focal areas of increased or decreased uptake are seen. These findings be seen with Graves' disease. I have personally reviewed the images and the above interpretation and agree with the findings. Procedure Note Vinod Ivy MD - 08/31/2012 NM THYROID UPTAKE + SCAN MULTI 08/31/2012 8:53 AM Signs and Symptoms/Comments: 242.90-Thyrotoxicosis without mention of goiter or other cause, without mention of thyrotoxic crisis or [id number]-CM; Hyperthyroidism Comparison: Ultrasound of the thyroid obtained July 2008. Technique: After the oral ingestion of 230 uCi I-123 [place], using a pinhole collimator, thyroid images were obtained in anterior, left anterior oblique and right anterior oblique projections at 4 and 24 hours. Findings: On exam the thyroid was at the upper limits of normal for size with no nodules felt. The thyroid scan shows abnormal diffuse increased radiotracer uptake of 29.4% at 4 hours and 67.5% at 24 hours. No focal areas of increased or decreased uptake are seen. These findings be seen with Graves' disease. I have personally reviewed the images and the above interpretation and agree with the findings. Carlos Mcmillan Zebjulianne DO IMG NM ORDERAB LES documented in this encounter Visit Diagnoses Not on filedocumented in this encounter Care Teams Footwear Stitcher Relationship Specialty Start Date End Date Sugar Lacy MD [address] [place] [address] PCP - General 02/27/10 01/26/13 documented as of this encounter
--- OUTSIDE RECORDS SUMMARY | 2023-12-04 20:21 | XMS_ITS | Encounter Summary ---
Author Organization [facility] Address [address] [place] [address] Care Team Providers Care Water/Wastewater Project Engineer Name Role Phone Sugar Lacy MD Primary Care Provider Reason for Visit * Reason Comments Thyroid Problem f/u Encounter Details Date Type Department Care Team (Latest Contact Info) Description 09/05/2012 8:00 EDT Office Visit [facility] Endocrinology - [facility] [address] [place] [address] Carlos Nuñez, 62 [facility] [address] [place] [phone] Hyperthyroidism (Primary Dx); Grave's disease Social History Tobacco Use Types Packs/Day [...] Sign Reading Time Taken Comments Blood Pressure 136/62 09/05/2012 0810 EDT Pulse 72 09/05/2012 0810 EDT Temperature - - Respiratory Rate - - Oxygen Saturation - - Inhaled Oxygen Concentration - - Weight 72.4 kg (159 lb 9.6 oz) 09/05/2012 0810 E DT Height 157.5 cm (5' 2) 09/05/2012 0810 EDT Body Mass Index 29.19 09/05/2012 0810 EDT Body Mass Index Percentile 92.84% 09/05/2012 081 0 EDT Growth Chart: [facility] (Girls, 2- 20 Years) documented in this encounter Patient Instructions * Patient Instructions* Carlos Nuñez DO - 09/05/2012 8:20 EDT 1. Call with questions or concerns 2. Dr. Nuñez to set up radioactive iodine ablation documented in this encounter Progress Notes * Carlos Nuñez DO - 09/05/2012 0840 EDT SUBJECTIVE: Ms Tiny Cervantes is an 16-year-old female who returns to the endocrine clinic today for further evaluation and management of her hyperthyroidism secondary to Graves' disease. The patient was seen on 07/14/2012 for initial consultation in the adult endocrinology clinic. Please see thatnote for full details. Her thyroid history is well detailed in that HPI section of her initial consultation. Repeat blood work drawn on 07/14/2012 showed a TSH that was less than 0.02, free T4 high end of normal at 1.5 with a free T3 elevated at 6.2. Her thyrotropin receptor antibody that was strongly positive at 2.71. Subsequent uptake and scan was performed due to symptoms her due to her thyroid history on 08/31/2012. This showed a 4-hour uptake of 29.4% and a 24-hour uptake of 67.5%. There were no focal areas of increased or decreased uptake seen. The findings were consistent with Graves' disease. Upon interview today, she reports increased agitation and restlessness. She does have some occasional trouble sleeping. Denies palpitations, hyperdefecation, unintentional weight loss. She has no vision changes. No change in her eye appearance. No pain with lateral gaze. PAST MEDICAL HISTORY: Reviewed as documented in electronic medical record. MEDICATIONS: Reviewed as documented in electronic medical record. ALLERGIES: Reviewed as documented in electronic medical record. OBJECTIVE: On physical examination blood pressure is 136/62, pulse is 72, weight is 159 pounds. This is actually down from 162 pounds when I saw her on June 14. Her BMI is 29. In general, patient diana pleasant 16-year-old female who is here with her mother. She is in no acute distress. HEENT: Eyes: There is no lid lag or periorbital edema noted. Her extraocular muscles are intact. There is no pro ptosis or exophthalmus. Neck: Thyroid is just slightly enlarged. The isthmus is not thickened, somewhat firm to palpation without tenderness or nodules to palpation. Psych: Patient is A and O x3. Speech and thoughts are appropriate. She makes good eye contact, appears well groomed. Denies depression, anxiety. DIAGNOSTIC DATA: Obtained on 07/14/2012 showed a TSH less than 0.02, free T4 of 1.5 and a free T3 of 6.2, thyrotropin receptor antibodies positive at 2.71. Studies uptake and scan were performed on 08/31/2012 showed a 4-hour uptake of 29.4% and 24-hour uptake of 67.5%. No focal areas of increased or decreased uptake seen. ASSESSMENT: Ms Tiny Cervantes is an 16-year-old female who has biochemical, clinical and an uptakeand scan evidence consistent with Graves' disease. We discussed treatment for her Graves' disease today, including surgical removal of her thyroid gland repeat treatment with antithyroid medications or a radioactive iodine ablation. After a long discussion regarding the pluses and minuses of all 3 treatment options, patient has chosen to go forward with radioactive iodine ablation, which I agree with. The patient will see me back in 6 weeks after radioactive iodine ablation. We will continue tomonitor at that point every 4 weeks for biochemical evidence of transition to the hypothyroid stateafter which we will begin weight-based levothyroxine therapy. PLAN: 1. Will have patient undergo radioactive iodine ablation of her hyperthyroidism secondary to Graves' disease. 2. Follow up with me in the office in 6 weeks after her radioactive iodine ablation. 3. Call with questions or concerns. documented in this encounter Plan of Treatment Not on file documented as of this encounter Visit Diagnoses Diagnosis Hyperthyroidism- Primary Thyrotoxicosis without mention of goiter or other cause, without mention of thyrotoxic crisis or storm Grave's disease Toxic diffuse goiter without mention of thyrotoxic crisis or storm documented in this encounter Historical Medications * This list may reflect changes made after this encounter. Medication Sig Dispensed Refills Start Date End Date valACYclovir (VALTREX) 500 mg tablet Take 500 mg by mouth as needed. 08/29/2013 added in this encounter Care Teams Water/Wastewater Project Engineer Relationship Specialty Start Date End Date Sugar Lacy MD [address] [place] [phone] PCP - General 02/27/10 01/26/13 documented as of this encounter
--- OUTSIDE RECORDS SUMMARY | 2023-12-04 20:21 | XMS_ITS | Encounter Summary ---
Author Organization [facility] Address [address] [place] [address] Care Team Providers Care Orthopedic Dentist Name Role Phone Sugar Lacy MD Primary Care Provider Encounter Details Date Type Department Care Team (Late st Contact Info) Description 04/28/2011 Phlebotomy Only [facility] [address] [place] [address] [employer]ather Goods I Assembler, Outpatient Thyroiditis, autoimmune Social History Tobacco Use Types Packs/Day Years [...] Procedure Name Priority Date/Time Associated Diagnosis Comments TISSUE TRANSGLUTAMINASE ANTIBODY, IGA Routine 04/28/2011 14:00 EST Thyroiditis, autoimmune IGA Routine 04/28/2011 14:00 EST Thyroiditis, autoimmune COMPLETE BLOOD COUNT Routine 04/28/2011 14:00 EST Thyroiditis, autoimmune T3, TOTAL Routine 04/28/2011 14:00 EST Thyroiditis, autoimmune TSH Routine 04/28/2011 14:00 EST Thyroiditis, autoimmune T4 FREE Routine 04/28/2011 14:00 EST Thyroiditis, autoimmune T4 Routine 04/28/2011 14:00 EST Thyroiditis, autoimmune documented in this encounter Results * IGA (04/28/2011 14:00 EST) IgA 88 45 - 237 mg/dl [facility] Blood specimen (specimen) 04/28/2011 14:00 EST 04/28/2011 14:15 EST Paradise Reyes MD CHEMISTRY & BLOOD GA S ORDERABLES Performing Organization Address [facility] Co de Phone Number [facility] [address] [place] [address] * TTG AB, IGA, S (04/28/2011 14:00 EST) tTG Ab, IgA, S <1.2 <4.0 (Negative) U/mL [facility] Comment: Performed by: [employer] [facility], [address], [place] [address], Fashion Consultant: Chacha Carrington, Ph.D. Blood specimen (specimen) 04/28/2011 14:00 EST 04/28/2011 14:15 EST Paradise Reyes MD IMMUNOLOGY AND SEROL OGY ORDERABLES Performing Organization Address City/[facility] Co de Phone Number [facility] [address] [place] [address] * HEMAGRAM (04/28/2011 14:00 EST) WBC 5.07 4.6 - 11.2 K/cmm [facility] RBC 4.38 4.10 - 5.10 M/cmm [facility] Hemoglobin 13.6 12.0 - 16.0 gm/dl [facility] HCT 39.6 36.0 - 46.0 % [facility] MCV 90 78 - 102 fl [facility] MCH 31.1 pg [facility] MCHC 34.4 gm/dl [facility] PLT 253 156 - 312 K/cmm [facility] RDW-CV 13.1 % [facility] Blood specimen (specimen) 04/28/2011 14:00 EST 04/28/2011 14:15 EST Paradies Reyes MD HEMATOLOGY & PF4 ORD ERABLES Performing Organization Address [facility] Phone Number [facility] [address] [place] [address] * T3, TOTAL (04/28/2011 14:00 EST) T3, Total 90 85 - 188 ng/dL [facility] Blood specimen (specimen) 04/28/2011 14:00 EST 04/28/2011 14:15 EST Paradise Reyes MD CHEMISTRY & BLOOD GA S ORDERABLES Performing Organization Address [facility] Phone Number [facility] [address] [place] [address] * T4 (04/28/2011 14:00 EST) T4, Total 8.6 5.1 - 9.6 ug/dL [facility] Blood specimen (specimen) 04/28/2011 14:00 EST 04/28/2011 14:15 EST Paradise Reyes MD CHEMISTRY & BLOOD GA S ORDERABLES Performing Organization Address [facility] de Phone Number [facility] [address] [place] [address] * T4 FREE (04/28/2011 14:00 EST) Free T4 1.2 0.8 - 1.5 ng/dL [facility] Blood specimen (specimen) 04/28/2011 14:00 EST 04/28/2011 14:15 EST Paradise Reyes MD CHEMISTRY & BLOOD GA S ORDERABLES Performing Organization Address [facility] Co de Phone Number [facility] [address] [place] [address] * TSH (04/28/2011 14:00 EST) TSH 0.80 0.35 - 5.00 uIU/ml [facility] Blood specimen (specimen) 04/28/2011 14:00 EST 04/28/2011 14:15 EST Paradise Reyes MD CHEMISTRY & BLOOD GA S ORDERABLES Performing Organization Address [facility] de Phone Number [facility] [address] [place] [address] documented in this encounter Visit Diagnoses Diagnosis Thyroiditis, autoimmune Chronic lymphocytic thyroiditis documented in this encounter Care Teams Orthopedic Dentist Relationship Specialty Start Date End Date Sugar Lacy MD [address] [place] [phone] PCP - General 02/27/10 01/26/13 documented as of this encounter
--- OUTSIDE RECORDS SUMMARY | 2023-12-04 20:21 | XMS_ITS | Encounter Summary ---
Author Organization [facility] Address [address] [place] [address] Care Team Providers Care Center Aisle Cashier Name Role Phone Sugar Lacy MD Primary Care Provider Reason for Referral * (Routine/Next Available) - Closed Specialty Diagnoses / Procedures Referred By Contac t Referred To Contact Diagnoses Thyroiditis, autoimmune Procedures T3, TOTAL Nancy Levy RN [address] [place] [address] Referral ID Status Reason Start Date Expiration Date Visits Re quested Visits Authorized [id number] Closed 04/30/2011 1 1 * (Routine/Next Available) - Closed Specialty Diagnoses / Procedures Referred By Contac t Referred To Contact Diagnoses Thyroiditis, autoimmune Procedures T4 Nancy Levy RN [address] [place] [address] Referral ID Status Reason Start Date Expiration Date Visits Re quested Visits Authorized [id number] Closed 04/30/2011 1 1 * (Routine/Next Available) - Closed Specialty Diagnoses / Procedures Referred By Contac t Referred To Contact Diagnoses Thyroiditis, autoimmune Procedures TSH Nancy Levy RN [address] [place] [address] Referral ID Status Reason Start Date Expiration Date Visits Re quested Visits Authorized [id number] Closed 04/30/2011 1 1 Reason for Visit * Reason Onset Date Comments Results 04/30/2011 Medication Management 04/30/2011 Labs Only 04/30/2011 Encounter Details Date Type Department Care Team (Late st Contact Info) Description 04/30/2011 Telephone [facility] Pediatric Endocrinology - [address] [address] Nancy Levy RN [address] [place] [address] Results; Medication Management; Labs Only Social History [...] Start Date End Da te methimazole (TAPAZOLE) 5 mg tabletIndications:Thyroidi tis, autoimmune Take 1 Tab by mouth daily. 90 Tab 1 04/30/2011 06/01/2011 documented in this encounter Miscellaneous Notes * Telephone Encounter - Nancy Levy RN - 04/30/2011 1138 EST Spoke with mom, Gricelda, reporting on lab results. She states that Tiny has stopped taking all hermedications and just eating 1 meal/day to lose weight. 5 mg of methimazole is 1/2 of the 10 mg tablets they already have, she will get Tiny to take med daily. Does have lab order for labs in 1 month. * Telephone Encounter - Nancy Levy RN - 04/30/2011 6035 EST Message copied by NANCY LEVY on WedApr 30, 2011 9718 ------ Message from: PARADISE LEE Created: WedApr 29, 2011 2008 Should restart methimazole with 5 mg QD (with once a day dosing, hopefully better compliance). Repeat labs locally in 1 mo, rx given at a visit. Negative celiac serology, no anemia. documented in this encounter Plan of Treatment Not on file documented as of this encounter Results * T3, TOTAL (05/29/2011 7:07 EDT) T3 TOTAL, External 141 85 - 188 [facility] Blood specimen (specimen) 05/29/2011 7:07 EDT Paradise Reyes MD CHEMISTRY & BLOOD GA S ORDERABLES Performing Organization Address City/[facility] Co de Phone Number [facility] * TSH (05/29/2011 7:07 EDT) TSH, External 1.54 0.47 - 4.68 [facility] Comment:06/01/11 no change in methimazole (should be taking 5 mg QD), repeat labs in 1 mo. Check compliance, if not taken or inconsistently, will stop methimazole and repeat TFT's in 1 mo. MK Blood specimen (specimen) 05/29/2011 7:07 EDT Paradise Reyes MD CHEMISTRY & BLOOD GA S ORDERABLES Performing Organization Address [facility] Co de Phone Number [facility] documented in this encounter Visit Diagnoses Diagnosis Thyroiditis, autoimmune- Primary Chronic lymphocytic thyroiditis documented in this encounter Discontinued Medications Medication Sig Discontinue Reason Start Date End Da te methimazole (TAPAZOLE) 10 mg tabletIndications:Thyroid itis, autoimmune 10 mg by mouth in the morning, 5 mg by mouth in the evening. Dose adjustment 03/13/2011 04/30/2011 documented as of this encounter Orders Lab Orders Without Results Count Last Ordered D ate First Ordered Date T4 1 04/30/2011 documented in this encounter Care Teams Center Aisle Cashier Relationship Specialty Start Date End Date Sugar Lacy MD [address] [place] [phone] PCP - General 02/27/10 01/26/13 documented as of this encounter
--- OUTSIDE RECORDS SUMMARY | 2023-12-04 20:21 | XMS_ITS | Encounter Summary ---
Author Organization [facility] Address [address] [place] [address] Care Team Providers Care Last Puller Name Role Phone Sugar Lacy MD Primary Care Provider Reason for Visit * Reason Onset Date Comments Results 04/18/2012 Encounter Details Date Type Department Care Team (Late st Contact Info) Description 04/18/[address] [facility] Pediatric Endocrinology - [place] [address] [place] [address] Nancy Cleveland RN [address] [place] [address] Autoimmune thyroiditis Social History Tobacco Use Types Packs/Day Years [...] Procedure Name Priority Date/Time Associated Diagnosis Comments THYROPEROXIDASE ANTIBODY Routine 04/13/2012 12:55 EST T3, TOTAL Routine 04/13/2012 12:55 EST Autoimmune thyroiditis TSH Routine 04/13/2012 12:55 EST Autoimmune thyroiditis T4 FREE Routine 04/13/2012 12:55 EST Autoimmune thyroiditis T4 Routine 04/13/2012 12:55 EST Autoimmune thyroiditis documented in this encounter Results * THYROPEROXIDASE ANTIBODY (04/13/2012 12:55 EST) Thyroperoxidase Ab, External >1,300 <61 [facility] Comment:04/15/12 off methimaz ole, has appt 04/20/12 Blood specimen (specimen) 04/13/2012 12:55 EST Narrative [facility] - 04/13/2012 12:55 EST TSI result 1.2 (ref <=1.3 TSI index) THYROGLOB AB result 100 (ref <61) Historical Provider CHEMISTRY & BLOOD GAS ORDERABLES Performing Organization Address City/[facility]/ZIP Co de Phone Number [facility] * T3, TOTAL (04/13/2012 12:55 EST) T3 TOTAL, External 130 60 - 181 [facility] Comment:04/15/12 off methimaz ole, has appt 04/20/12 Blood specimen (specimen) 04/13/2012 12:55 EST Paradise Reyes MD CHEMISTRY & BLOOD GA S ORDERABLES [facility] * T4 (04/13/2012 12:55 EST) T4, Total, External 6.99 5.53 - 11.0 [facility] Comment:04/15/12 off methimaz ole, has appt 04/20/12 Blood specimen (specimen) 04/13/2012 12:55 EST Paradise Reyes MD CHEMISTRY & BLOOD GA S ORDERABLES [facility] * T4 FREE (04/13/2012 12:55 EST) Free T4, External 1.09 0.78 - 2.19 [facility] Comment:04/15/12 off methimaz ole, has appt 04/20/12 Blood specimen (specimen) 04/13/2012 12:55 EST Paradise Reyes MD CHEMISTRY & BLOOD GA S ORDERABLES Performing Organization Address City/[facility]/ZIP Co de Phone Number [facility] * (ABNORMAL) TSH (04/13/2012 12:55 EST) TSH, External 0.129(A) 0.47 - 4.68 [facility] Comment:04/15/12 off methimaz ole, has appt 04/20/12 Blood specimen (specimen) 04/13/2012 12:55 EST Paradise Reyes MD CHEMISTRY & BLOOD GA S ORDERABLES Performing Organization Address City/[facility] Co de Phone Number [facility] documented in this encounter Visit Diagnoses Diagnosis Autoimmune thyroiditis Chronic lymphocytic thyroiditis documented in this encounter Orders Lab Orders Without Results Count Last Ordered D ate First Ordered Date THYROID ANTIBODIES 1 04/18/2012 THYROID-STIMULATING IMMUNOGL OBULIN (TSI), SERUM 1 04/18/2012 documented in this encounter Care Teams Last Puller Relationship Specialty Start Date End Date Sugar Lacy MD [address] [place] [phone] PCP - General 02/27/10 01/26/13 documented as of this encounter
--- OUTSIDE RECORDS SUMMARY | 2023-12-04 20:21 | XMS_ITS | Encounter Summary ---
Author Organization [facility] Address [address] [place] [address] Care Team Providers Care Boat Driver Name Role Phone Sugar Lacy MD Primary Care Provider Reason for Visit * Reason Comments Follow-up Implanon Encounter Details Date Type Department Care Team (Late st Contact Info) Description 08/25/2011 11:45 EDT Office Visit [facility] OBGYN Services - [facility] [address] [place] [address] Ariel Soto MD MSc Subderm [id number] surveil (Primary Dx) Discharge Disposition: Auto Discharge Social [...] Sign Reading Time Taken Comments Blood Pressure 94/68 08/25/2011 1128 EDT Pulse - - Temperature - - Respiratory Rate - - Oxygen Saturation - - Inhaled Oxygen Concentration - - Weight - - Height - - Body Mass Index - - documented in this encounter Discharge Disposition Disposition Code Departure Means Destination Auto Discharge documented in this encounter Progress Notes * Ariel Soto MD - 08/25/2011 1228 EDT S. 15 yo G0 with occ pain at site of implanon insert. O. Insert is correctly placed just under dermis - no irritation or tenderness with palpation A. No problem with implanon P. Wants to return for a integration assistant exam to confirm that her anatomy is nl and would likely allow a nl should she desire in the future. Ariel Soto MD documented in this encounter Plan of Treatment Not on file documented as of this encounter Visit Diagnoses Diagnosis Surveillance of previously prescribed implantable subdermal contraceptive- Primary documented in this encounter Discontinued Medications Medication Sig Discontinue Reason Start Date End Da te sertraline (ZOLOFT) 100 mg tablet Take 50 mg by mouth daily. 1/2 tab daily Discontinued by another clinician 08/25/2011 loratadine (CLARITIN) 10 mg tablet Take 10 mg by mouth daily. Patient Stopped Taking 08/25/2011 documented as of this encounter Care Teams Boat Driver Relationship Specialty Start Date End Date Sugar Lacy MD [address] [place] [phone] PCP - General 02/27/10 01/26/13 documented as of this encounter
--- OUTSIDE RECORDS SUMMARY | 2023-12-04 20:21 | XMS_ITS | Encounter Summary ---
Author Organization [facility] Address [address] [place] [address] Care Team Providers Care Sec Reporting Consultant Name Role Phone Sugar Lacy MD Primary Care Provider Reason for Visit * Reason Onset Date Comments Other 01/08/2011 Encounter Details Date Type Department Care Team (Late st Contact Info) Description 01/08/2011 Telephone [facility] Pediatric Endocrinology - [facility] [address] [place], [place] [address] Paradise Reyes MD [address] [phone] Other Social History Tobacco Use Types Packs/Day [...] Telephone Encounter - Nancy Cleveland RN - 01/09/2011 0558 EST Mom brought in signed authorization from Tiny to get access to [employer], scanned into [employer]; continues to get from [employer] that Tiny/mom can't have access. E-mail to mom stated that MD office needs to 'turn on [employer]. * Telephone Encounter - Daryn Deleon. - 01/08/2011 1158 EST Seems that she hasn't received access to [employer] online yet and she is wondering when that will happen. documented in this encounter Plan of Treatment Not on file documented as of this encounter Visit Diagnoses Not on filedocumented in this encounter Care Teams Sec Reporting Consultant Relationship Specialty Start Date End Date Sugar Lacy MD [address] [place] [phone] PCP - General 02/27/10 01/26/13 documented as of this encounter
--- OUTSIDE RECORDS SUMMARY | 2023-12-04 20:21 | XMS_ITS | Encounter Summary ---
Author Organization [facility] Address [address] [place] [address] Care Team Providers Care Conductor/Engineer Name Role Phone Sugar Lacy MD Primary Care Provider Reason for Visit * Reason Onset Date Comments Results 06/01/2011 Encounter Details Date Type Department Care Team (Late st Contact Info) Description 06/01/[address] [facility] Pediatric Endocrinology - Main [place] [address] [place] [address] Nancy Cleveland RN [address] [place] [address] Thyroiditis, autoimmune Social History Tobacco Use Types [...] Priority Date/Time Associated Diagnosis Comments TSH Routine 05/29/2011 7:07 EDT Thyroiditis, autoimmune T4 Routine 05/29/2011 7:07 EDT documented in this encounter Results * T4 (05/29/2011 7:07 EDT) T4, Total, External 7.02 5.53 - 11.0 [facility] Comment:06/01/11 no change in methimazole (should be taking 5 mg QD), repeat labs in 1 mo. Check compliance, if not taken or inconsistently, will stop methimazole and repeat TFT's in 1 mo. MK Blood specimen (specimen) 05/29/2011 7:07 EDT Historical Provider CHEMISTRY & BLOOD GAS ORDERABLES Performing Organization Address [facility] Co de Phone Number [facility] * TSH (05/29/2011 7:07 EDT) TSH, External 1.54 0.47 - 4.68 [facility] Comment:06/01/11 no change in methimazole (should be taking 5 mg QD), repeat labs in 1 mo. Check compliance, if not taken or inconsistently, will stop methimazole and repeat TFT's in 1 mo. MK Blood specimen (specimen) 05/29/2011 7:07 EDT Paradise Reyes MD CHEMISTRY & BLOOD GA S ORDERABLES Performing Organization Address [facility] Co de Phone Number [facility] documented in this encounter Visit Diagnoses Diagnosis Thyroiditis, autoimmune Chronic lymphocytic thyroiditis documented in this encounter Care Teams Conductor/Engineer Relationship Specialty Start Date End Date Sugar Lacy MD [address] [place] [phone] PCP - General 02/27/10 01/26/13 documented as of this encounter
--- OUTSIDE RECORDS SUMMARY | 2023-12-04 20:21 | XMS_ITS | Encounter Summary ---
Author Organization [facility] Address [address] [place] [address] Care Team Providers Care Medical Staff Coordinator Name Role Phone Sugar Lacy MD Primary Care Provider Reason for Visit * Reason Onset Date Comments Results 06/03/2011 Encounter Details Date Type Department Care Team (Late st Contact Info) Description 06/03/2011 Orders Only [facility] Pediatric Endocrinology - Main [place] [address] [place] [address] Nancy Cleveland RN [address] [place] [address] Thyroiditis, autoimmune Social History Tobacco Use Types [...] Date/Time Associated Diagnosis Comments T3, TOTAL Routine 05/29/2011 7:07 EDT Thyroiditis, autoimmune documented in this encounter Results * T3, TOTAL (05/29/2011 7:07 EDT) T3 TOTAL, External 141 85 - 188 [facility] Blood specimen (specimen) 05/29/2011 7:07 EDT Praadise Reyes MD CHEMISTRY & BLOOD GA S ORDERABLES [facility] documented in this encounter Visit Diagnoses Diagnosis Thyroiditis, autoimmune Chronic lymphocytic thyroiditis documented in this encounter Care Teams Medical Staff Coordinator Relationship Specialty Start Date End Date Sugar Lacy MD [address] [place] [phone] PCP - General 02/27/10 01/26/13 documented as of this encounter
--- OUTSIDE RECORDS SUMMARY | 2023-12-04 20:21 | XMS_ITS | Encounter Summary ---
Author Organization [facility] Address [address] [place] [address] Care Team Providers Care Metal Pickling Equipment Operator Name Role Phone Sugar Lacy MD Primary Care Provider Reason for Visit * Reason Onset Date Comments Labs Only 09/22/2011 Encounter Details Date Type Department Care Team (Late st Contact Info) Description 09/22/2011 Telephone [facility]'s [facility] Pediatric Endocrinology - Main [place] [address] [place], [place] [phone] Paradise Reyes MD [address] [phone] Labs Only Social History Tobacco [...] Telephone Encounter - Nancy Cleveland RN - 09/23/2011 0905 EDT Message noted this am. Today's appointment cancelled, needs r/s. * Telephone Encounter - Neelima Nazario - 09/22/2011 2384 EDT Tiny's mother is calling to request if lab draw to have them ordered today, please confirm with her. Coming to see Paradise Shannon tomorrow, please call her back to confirm documented in this encounter Plan of Treatment Not on file documented as of this encounter Visit Diagnoses Not on filedocumented in this encounter Care Teams Metal Pickling Equipment Operator Relationship Specialty Start Date End Date Sugar aLcy MD [address] [place] [phone] PCP - General 02/27/10 01/26/13 documented as of this encounter
--- OUTSIDE RECORDS SUMMARY | 2023-12-04 20:21 | XMS_ITS | Encounter Summary ---
Author Organization [facility] Address [address] [place] [address] Care Team Providers Care Renal Technician Name Role Phone Sugar Lacy MD Primary Care Provider Reason for Visit * Reason Onset Date Comments Results 09/30/2011 Encounter Details Date Type Department Care Team (Late st Contact Info) Description 09/30/2011 Telephone [facility] Pediatric Endocrinology - [facility] [address] [place], [place] [address] Paradise Reyes MD [address] [phone] Results Social History Tobacco Use Types Packs/Day [...] Miscellaneous Notes * Telephone Encounter - Britt Gilbert RN - 09/30/[address] Shannon, labs WNL. Repeat TFT's locally x 3 months, mom aware. Lab request sent to mom. JACOBBB * Telephone Encounter - Daryn Deleon. - 09/30/2011 1038 EDT Calling from results from Mondays blood work. documented in this encounter Plan of Treatment Not on file documented as of this encounter Visit Diagnoses Not on filedocumented in this encounter Care Teams Renal Technician Relationship Specialty Start Date End Date Sugar Lacy MD [address] [place] [phone] PCP - General 02/27/10 01/26/13 documented as of this encounter
--- OUTSIDE RECORDS SUMMARY | 2023-12-04 20:21 | XMS_ITS | Encounter Summary ---
Author Organization [facility] Address [address] [place] [address] Care Team Providers Care Garment Sewing Machine Operator Name Role Phone Sugar Lacy MD Primary Care Provider Encounter Details Date Type Department Care Team (Latest Contact Info) Description 09/19/2012 8:09 EDT - 09/19/2012 23:59 EDT Hospital Encounter [facility] [place] [address] [place] [address] Carlos Nuñez, DO [address] [facility] [address] [place] [phone] Discharge Disposition: Home or Self Care Social [...] Code Departure Means Destination Home or Self Skilled Nursing documented in this encounter Plan of Treatment Not on file documented as of this encounter Visit Diagnoses Not on filedocumented in this encounter Care Teams Garment Sewing Machine Operator Relationship Specialty Start Date End Date Sugar Lacy MD [address] [place] [phone] PCP - General 02/27/10 01/26/13 documented as of this encounter
--- OUTSIDE RECORDS SUMMARY | 2023-12-04 20:21 | XMS_ITS | Encounter Summary ---
Author Organization [facility] Address [address] [place] [address] Care Team Providers Care Portfolio Strategist Name Role Phone Sugar Lacy MD Primary Care Provider Reason for Visit * Reason Onset Date Comments Results 03/13/2011 Encounter Details Date Type Department Care Team (Late st Contact Info) Description 03/13/2011 Orders Only [facility] Children[facility] Pediatric Endocrinology - Main [place] [address] [place] [address] Nancy Cleveland RN [address] [place] [address] Thyroiditis, autoimmune; Obesity Social History Tobacco Use Types Packs/Day Years [...] Priority Date/Time Associated Diagnosis Comments TSH Routine 03/13/2011 7:05 EST Thyroiditis, autoimmune T4 FREE Routine 03/13/2011 7:05 EST Thyroiditis, autoimmune T4 Routine 03/13/2011 7:05 EST Thyroiditis, autoimmune HEPATIC FUNCTION PANEL (ALB,ALK PHOS,ALT,AST,DBIL,T OT HARDEEP,TOT PROT) Routine 03/13/2011 7:05 EST Obesity documented in this encounter Results * LIVER FUNCTION TESTS (03/13/2011 7:05 EST) Albumin, External 4.2 [facility] Total Protein, External 6.8 [facility] Alkaline Phosphatase, External 62 [facility] ALT, External 23 [facility] AST, External 15 [facility] Unconjugated Bilirubin [facility] Conjugated Bilirubin, External 0 [facility] Bilirubin, Total, External 0.3 [facility] Blood specimen (specimen) 03/13/2011 7:05 EST Paradise Reyes MD CHEMISTRY & BLOOD GA S ORDERABLES Performing Organization Address [facility] Co de Phone Number [facility] * (ABNORMAL) T4 (03/13/2011 7:05 EST) T4, Total, External 4.54(A) 5.53 - 11.0 [facility] Comment:03/13/11: currently o n methimazole 10 mg BID (dose decreased on 01/2011 from 15 mg BID); decrease to 10 mg in am, 5 mg in pm; labs in 2 mos (TSH, FT4, TT4, T3) Blood specimen (specimen) 03/13/2011 7:05 EST Paradise Reyes MD CHEMISTRY & BLOOD GA S ORDERABLES [facility] * (ABNORMAL) T4 FREE (03/13/2011 7:05 EST) Free T4, External 0.69(A) 0.78 - 2.19 [facility] Comment:03/13/11: currently o n methimazole 10 mg BID (dose decreased on 01/2011 from 15 mg BID); decrease to 10 mg in am, 5 mg in pm; labs in 2 mos (TSH, FT4, TT4, T3) Blood specimen (specimen) 03/13/2011 7:05 EST Paradise Reyes MD CHEMISTRY & BLOOD GA S ORDERABLES [facility] * (ABNORMAL) TSH (03/13/2011 7:05 EST) TSH, External 6.06(A) 0.47 - 4.68 [facility] Comment:03/13/11: currently o n methimazole 10 mg BID (dose decreased on 01/2011 from 15 mg BID); decrease to 10 mg in am, 5 mg in pm; labs in 2 mos (TSH, FT4, TT4, T3) Blood specimen (specimen) 03/13/2011 7:05 EST Paradise Reyes MD CHEMISTRY & BLOOD GA S ORDERABLES Performing Organization Address [facility] Co de Phone Number [facility] documented in this encounter Visit Diagnoses Diagnosis Thyroiditis, autoimmune Chronic lymphocytic thyroiditis Obesity Obesity, unspecified documented in this encounter Care Teams Portfolio Strategist Relationship Specialty Start Date End Date Sugar Lacy MD [address] [place] [phone] PCP - General 02/27/10 01/26/13 documented as of this encounter
--- OUTSIDE RECORDS SUMMARY | 2023-12-04 20:21 | XMS_ITS | Encounter Summary ---
Author Organization [facility] Address [address] [place] [address] Care Team Providers Care Dog Beautician Name Role Phone Sugar Lacy MD Primary Care Provider Reason for Visit * Reason Onset Date Comments Results 01/19/2012 Encounter Details Date Type Department Care Team (Late st Contact Info) Description 01/19/2012 Telephone [facility] Pediatric Endocrinology - [facility] [address] [place], [place] [address] Nancy Cleveland RN [address] [place] [address] Results Social History Tobacco Use Types Packs/Day [...] Telephone Encounter - Nancy Cleveland RN - 01/19/2012 0949 EST Left message for Tiny and mom, Gricelda. Recent lab results are WNL, but the TSH is trending down. Mailed lab orders for labs in 2 mos ~~03/14/2012. Tiny is on the endo list to schedule for the April transition clinic and will be called about that soon. documented in this encounter Plan of Treatment Not on file documented as of this encounter Visit Diagnoses Not on filedocumented in this encounter Care Teams Dog Beautician Relationship Specialty Start Date End Date Sugar Lacy MD [address] [place] [phone] PCP - General 02/27/10 01/26/13 documented as of this encounter
--- OUTSIDE RECORDS SUMMARY | 2023-12-04 20:21 | XMS_ITS | Encounter Summary ---
Author Organization [facility] Address [address] [place] [address] Care Team Providers Care Optometrist Owner Name Role Phone Sugar Lacy MD Primary Care Provider Reason for Visit * Reason Onset Date Comments Other 04/19/2012 Appointment Related 04/19/2012 Encounter Details Date Type Department Care Team (Late st Contact Info) Description 04/19/2012 Telephone [facility] Pediatric Endocrinology - Main [place] [address] [place], [place] [address] Paradise Reyes MD [address] [phone] Other; Appointment Related Social History Tobacco Use Types [...] Telephone Encounter - Nancy Cleveland RN - 04/20/2012 0932 EST Tiny being seen at this time in endo transition clinic. * Telephone Encounter - Qing Story - 04/19/2012 9286 EST Mom, Gricelda called to see if we got results of the bloodwork done on 04-13-12, I told her we did, shewondered if Dr. Shannon would want any more bloodwork done prior to her appointment tomorrow at the transition clinic. I mentioned to her that it would be very unlikely, but would send a note to Dr. Shannon. She wanted to do the labs if necessary before the 9:00 appointment. Gricelda did say in the end she is fine with just waiting and talking to Dr. Shannon tomorrow and if they need to do more labs they will do at a later date. documented in this encounter Plan of Treatment Not on file documented as of this encounter Visit Diagnoses Not on filedocumented in this encounter Care Teams Optometrist Owner Relationship Specialty Start Date End Date Sugar Lacy MD [address] [place] [phone] PCP - General 02/27/10 01/26/13 documented as of this encounter
--- OUTSIDE RECORDS SUMMARY | 2023-12-04 20:21 | XMS_ITS | Encounter Summary ---
Author Organization [facility] Address [address] [place] [address] Care Team Providers Care Buttonhole Maker Hand Name Role Phone Sugar Lacy MD Primary Care Provider Reason for Referral * (Routine) - Closed Specialty Diagnoses / Procedures Referred By Contac t Referred To Contact Diagnoses Thyroiditis, autoimmune Procedures T3, TOTAL Nancy Levy RN [address] [place] [address] Referral ID Status Reason Start Date Expiration Date Visits Re quested Visits Authorized [id number] Closed 12/12/2010 1 1 * (Routine) - Closed Specialty Diagnoses / Procedures Referred By Contac t Referred To Contact Diagnoses Thyroiditis, autoimmune Procedures T4 Nancy Levy RN [address] [place] [address] Referral ID Status Reason Start Date Expiration Date Visits Re quested Visits Authorized [id number] Closed 12/12/2010 1 1 * (Routine) - Closed Specialty Diagnoses / Procedures Referred By Contac t Referred To Contact Diagnoses Thyroiditis, autoimmune Procedures T4 FREE Nancy Levy RN [address] [place] [address] Referral ID Status Reason Start Date Expiration Date Visits Re quested Visits Authorized [id number] Closed 12/12/2010 1 1 * (Routine) - Closed Specialty Diagnoses / Procedures Referred By Contac t Referred To Contact Diagnoses Thyroiditis, autoimmune Procedures TSH Nancy Levy, RN [address] [place] [address] Referral ID Status Reason Start Date Expiration Date Visits Re quested Visits Authorized [id number] Closed 12/12/2010 1 1 Reason for Visit * Reason Onset Date Comments Results 12/12/2010 Medication Management 12/12/2010 Labs Only 12/12/2010 Encounter Details Date Type Department Care Team (Late st Contact Info) Description 12/12/2010 Telephone [facility] Pediatric Endocrinology - [facility] [address] [place] [address] Nancy Levy RN [address] [place] [address] Results; Medication Management; Labs Only Social History Tobacco Use Types Packs/Day Years Used Date Smoking Tobacco: Never Assessed Sex and Gender Information Value Date Recorded Sex Assigned at Not on file Gender Identity Female 03/02/2019 11:17 EST Sexual Orientation Not on file documented as of this encounter Miscellaneous Notes * Telephone Encounter - Nancy Levy, RN - 12/12/2010930 EDT Message copied by NANCY LEVY on WedDec 12, 2010 09 ------ Message from: PARADISE LEE Created: [facility] Dec 11, 2010 1226 No methimazole change, needs repeat labs locally as discussed in 2 mo; that time may be ready for dose . 12/12/10 spoke with mom, Gricelda, regarding TFT results and methimazole. She stated she did not get lab req for labs in 2 mos, mailed to her. documented in this encounter Plan of Treatment Not on file documented as of this encounter Results * T3, TOTAL (02/13/2011 7:03 EST) T3 TOTAL, External 89 85 - 188 [facility] Blood specimen (specimen) 02/13/2011 7:03 EST Paradise Reyes MD CHEMISTRY & BLOOD GA S ORDERABLES Performing Organization Address [facility] [[email or web address]] Co de Phone Number [facility] * (ABNORMAL) T4 (02/13/2011 7:03 EST) Blood specimen (specimen) 02/13/2011 7:03 EST Narrative [facility] - 02/16/2011 13:29 EST T4 resullt: ??3.78 (ref 5.53 - 11.0) Paradise Reyes MD CHEMISTRY & BLOOD GA S ORDERABLES Performing Organization Address [facility] [[email or web address]] Co de Phone Number [facility] * (ABNORMAL) T4 FREE (02/13/2011 7:03 EST) Free T4, External 0.58(A) 0.78 - 2.19 [facility] Blood specimen (specimen) 02/13/2011 7:03 EST Paradise Reyes MD CHEMISTRY & BLOOD GA S ORDERABLES Performing Organization Address [facility] [[email or web address]] Co de Phone Number [facility] * TSH (02/13/2011 7:03 EST) TSH, External 20.0 0.47 [facility] Blood specimen (specimen) 02/13/2011 7:03 EST Narrative [facility] - 02/16/2011 13:29 EST 12/11/10 TSH = 1.18 while on methimazole 15 mg BID (TBII, TSI neg); 02/16/11 pls call mom: ??1) decrease methimazole to 10 mg BID 2) repeat labs (TSH, FT4 T4, T3, LFT's) in ~~1 mo - MK Paradise Reyes MD CHEMISTRY & BLOOD GA S ORDERABLES Performing Organization Address [facility] [[email or web address]] Co de Phone Number [facility] documented in this encounter Visit Diagnoses Diagnosis Thyroiditis, autoimmune- Primary Chronic lymphocytic thyroiditis Thyroiditis, autoimmune Chronic lymphocytic thyroiditis documented in this encounter Care Teams Buttonhole Maker Hand Relationship Specialty Start Date End Date Sugar Lacy MD [address] [facility] [place] [phone] PCP - General 02/27/10 01/26/13 documented as of this encounter
--- OUTSIDE RECORDS SUMMARY | 2023-12-04 20:21 | XMS_ITS | Encounter Summary ---
Author Organization [facility] Address [address] [place] [address] Care Team Providers Care Radiotelegraph Operator Name Role Phone Sugar Lacy MD Primary Care Provider [phone] Reason for Visit * Reason Onset Date Comments Results 03/20/2011 Encounter Details Date Type Department Care Team (Late st Contact Info) Description 03/20/2011 Orders Only [facility] Pediatric Endocrinology - Main [place] [address] [place] [address] Nancy Cleveland RN [address] [place] [address] Thyroiditis, autoimmune Social History Tobacco Use Types [...] Date/Time Associated Diagnosis Comments T3, TOTAL Routine 03/13/2011 7:05 EST Thyroiditis, autoimmune documented in this encounter Results * T3, TOTAL (03/13/2011 7:05 EST) T3 TOTAL, External 143 85 - 188 [facility] Comment:MK Blood specimen (specimen) 03/13/2011 7:05 EST Paradise Reyes MD CHEMISTRY & BLOOD GA S ORDERABLES [facility] documented in this encounter Visit Diagnoses Diagnosis Thyroiditis, autoimmune Chronic lymphocytic thyroiditis documented in this encounter Care Teams Radiotelegraph Operator Relationship Specialty Start Date End Date Sugar Lacy MD [address] [place] [phone] PCP - General 02/27/10 01/26/13 documented as of this encounter
--- OUTSIDE RECORDS SUMMARY | 2023-12-04 20:21 | XMS_ITS | Encounter Summary ---
Author Organization [facility] Address [address] [place] [address] Care Team Providers Care Transportation Superintendent Name Role Phone Sugar Lacy MD Primary Care Provider Reason for Visit * Reason Comments Graves' Disease Encounter Details Date Type Department Care Team (Latest Contact Info) Description 04/28/2011 12:45 EST Office Visit [facility] Pediatric Endocrinology - [place] [address] [place] [address] Paradise Reyes MD [address] [address] Thyroiditis, autoimmune (Primary Dx) Social History Tobacco [...] Sign Reading Time Taken Comments Blood Pressure 123/68 04/28/2011 1252 EST Pulse 62 04/28/2011 1252 EST Temperature - - Respiratory Rate - - Oxygen Saturation - - Inhaled Oxygen Concentration - - Weight 71.8 kg (158 lb 4.6 oz) 04/28/[address] Height 158.2 cm (5' 2.28) 04/28/2011 1252 EST Body Mass Index 28.69 04/28/2011 1252 EST Body Mass Index Percentile 93.32% 04/28/2011 125 2 EST Growth Chart: CDC (Girls, 2- 20 Years) documented in this encounter Progress Notes * Paradise Shannon MD - 04/28/2011 7907 EST Pediatric Endocrinology Follow Up Patient Identification: 15 y.o. 6 m.o. 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 She initially presented with high FT4 and suppressed TSH (FT4 3.8, TSH <0.02) 12/06 while on [place] which was subsequently discontinued. Her 123 Iodine uptake was low (1.5%, nl.10-30%), she had negative TSHr-Ab, TSI, anti TPO, and positive anti TG Ab. Thyroid gland was diffusely enlarged, she had on and off complaint of discomfort with swallowing, has had mild symptoms of hyperthyroidism, no beta blockers were started. 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 TFTs were monitored with fluctuating results: euthyroid, subclinical hyperthyroid to clear hyperthyroidism with undetectable TSH. On repeated antibodies testing her TSHr and TSI were positive; she was hyperthyroid at that time clinically and biochemically (FT4 2.2), after treatment options were disc ussed, methimazole was started on 03/2010. She has been tolerating antithyroid medication well, no reported side effects. Tiny was diagnosed with vitamin D insufficient, supplementing was recommended, not taken inconsistently. Interval illness: none Tiny had Implant on placed on . Has irregular spotting/menstrual bleeding. She had no difficulties with asthma, no need for inhaler use since last visit. Tiny lost some weight since last visit, at first reported this being unintentional. Subsequentlyadmitted eating less and walking more. She often skips breakfast and lunch, dinner is her first meal. She denies inducing vomiting, wants to lose another 4-5 lb. Positive for: Fatigue, gets good overnight sleep Appetite changes: decreased Abdominal pain: reported after eating, stubbing pain, points to belly button, rest brings relief,pain is occasionally associated with nausea or emesis, she has occasional loose bowel movements with abdominal pain Emesis: lately after eating on and off along with abdominal pain, see above Temperature intolerance: heat and cold, on and off Hair loss: for a long time, worse lately, no bald spots, no other body hair loss, no skin changes Itchy skin, no dryness Negative for: neck swelling, voice hoarseness, dysphagia, fatigue, constipation, tremor, palpitations, difficultyconcentrating, diffuculty sleeping, bone pain and interval bone fractures, pain with eye movement, visual changes Review of Systems: A ten point review of systems was performed. Pertinent items are noted in the HPI, all others are negative. Problem List Patient Active Problem List Diagnoses ??? Thyroiditis, autoimmune ??? Obesity ??? Acanthosis nigricans ??? Vitamin D deficiency ??? Irregular periods/menstrual cycles ??? Subderm cntrcptv surveil Medications: Current Outpatient Prescriptions Medication Sig Dispense Refill ??? methimazole (TAPAZOLE) 10 mg tablet 10 mg by mouth in the morning, 5 mg by mouth in the evening. 135 Tab 1 ??? Etonogestrel (IMPLANON) 68 mg Impl 68 mg by Subdermal route once. 68 mg 0 ??? sertraline (ZOLOFT) 100 mg tablet Take 50 mg by mouth daily. 1/2 tab daily ??? ALBUTEROL INHL Inhale as directed as needed. 2 puffs as needed ??? loratadine (CLARITIN) 10 mg tablet Take 10 mg by mouth daily. Adherence with endocrine medications: inconsistent, takes 3-4 doses a week on average, did not takeany methimazole for the last 6 days Allergies: Thomas Social History: Social History ??? Lives with Mother exclusively ??? Education Grade 12 Physical Exam: Vitals: BP 123/68 Pulse 62 Ht 158.2 cm (62.28) Wt 71.8 kg (158 lb 4.6 oz) BMI 28.69 kg/m2 88.9% systolic and 59.4% diastolic of BP percentile by age, sex, and height. Height: 1.582 m (5' 2.28) (22.71%) Weight: 71.8 kg (158 lb 4.6 oz) (89.57%) Body mass index is 28.69 kg/(m^2). 93.32% of growth percentile based on BMI-for-age. General Appearance: comfortable, well-hydrated, in no apparent [...] turgor and acanthosis nigricans of neck and axillae Sexual Development: deferred Data Review/Interval Investigations: Date: 12/11/10 TSH 1.18, free T4 1.1, total T3 121 and TSH receptor negative and thyroid stimulating index negative Date: 02/13/11 TSH 20, free T4 0.58 and total T3 89 Date: 03/13/11 TSH 6.06, free T4 0.69, total T3 143 and total T4 4.53 Assessment: 15 y.o. 6 m.o. 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 Fullness over thyroid bed. On antithyroid medication with poor compliance lately. Clinically hypothyroid. Obesity, acanthosis nigricans: interval weight loss. Intentional. No polyuria, polydipsia. Vitamin D insufficiency, not taking supplementation as recommended. Abdominal pain. Cause? Poor eating habits? Suggestions/Plan: Investigations: TSH, free T4, total T4 and total T3, A1C, CBC, celiac serology Topics reviewed today: symptoms and signs of hypothyroidism and hyperthyroidism likelikhood of spontaneous remission in Grave's disease bone health healthy eating Medications prescribed: as off methimaziole for almost a week with poor complinace prior, will await for lab results beforesuggesting medication dose adjustement Additional recommendations: repeat thyroid function tests locally in 1 mo, rx given if abdominal pain persists, should discuss with PCP Disposition: follow up in Endocrine clinic in 4 months I spent a total of 30 minutes in face to face time with this patient and 20 minutes of that time was spent in counseling and coordination of care as described in the progress note. Paradise Shannon MD 04/28/2011 16:47 documented in this encounter Plan of Treatment Not on file documented as of this encounter Procedures Procedure Name Priority Date/Time Associated Diagnosis Comments OUTPATIENT ADD-ON Routine 04/28/2011 17: 07 EST Thyroiditis, autoimmune documented in this encounter Results * OUTPATIENT ADD-ON (04/28/2011 17:07 EST) Tests to be added HEMOGLOBIN A1C [facility] Comment:GLUCOSE Diagnosis Code SEE PRISM DOS 2.28 [facility] Number for problems [id number] [facility] Accession number [id number] [facility] Acknowledge ABP Done [facility] 04/28/2011 17:0 7 EST 04/28/2011 17:12 EST Paradise Reyes MD HEMATOLOGY & PF4 ORD ERABLES Performing Organization Address [facility] Co de Phone Number [facility] [address] [place] [address] * IGA (04/28/2011 14:00 EST) IgA 88 45 - 237 mg/dl [facility] Blood specimen (specimen) 04/28/2011 14:00 EST 04/28/2011 14:15 EST Paradise Reyes MD CHEMISTRY & BLOOD GA S ORDERABLES Performing Organization Address [facility] Co de Phone Number [facility] [address] [place] [address] * TTG AB, IGA, S (04/28/2011 14:00 EST) tTG Ab, IgA, S <1.2 <4.0 (Negative) U/mL [facility] Comment: Performed by: [facility], [address], [place] [address], Hog Stomach Preparer: Chacha Carrington, Ph.D. Blood specimen (specimen) 04/28/2011 14:00 EST 04/28/2011 14:15 EST Paradise Reyes MD IMMUNOLOGY AND SEROL OGY ORDERABLES Performing Organization Address [facility] Co de Phone Number [facility] [address] [place] [address] * HEMAGRAM (04/28/2011 14:00 EST) WBC 5.07 4.6 - 11.2 K/cmm [facility] RBC 4.38 4.10 - 5.10 M/cmm [facility] Hemoglobin 13.6 12.0 - 16.0 gm/dl [facility] HCT 39.6 36.0 - 46.0 % [facility] MCV 90 78 - 102 fl [facility] MCH 31.1 pg [facility] MCHC 34.4 gm/dl [facility] PLT 253 156 - 312 K/cmm [facility] RDW-CV 13.1 % [facility] Blood specimen (specimen) 04/28/2011 14:00 EST 04/28/2011 14:15 EST Paradise Reyes MD HEMATOLOGY & PF4 ORD ERABLES Performing Organization Address [facility] de Phone Number [facility] [address] [place] [address] * T3, TOTAL (04/28/2011 14:00 EST) T3, Total 90 85 - 188 ng/dL [facility] Blood specimen (specimen) 04/28/2011 14:00 EST 04/28/2011 14:15 EST Paradise Reyes MD CHEMISTRY & BLOOD GA S ORDERABLES Performing Organization Address [facility] Co de Phone Number [facility] [address] [place] [address] * T4 (04/28/2011 14:00 EST) T4, Total 8.6 5.1 - 9.6 ug/dL [facility] Blood specimen (specimen) 04/28/2011 14:00 EST 04/28/2011 14:15 EST Paradise Reyes MD CHEMISTRY & BLOOD GA S ORDERABLES Performing Organization Address [facility] Phone Number [facility] [address] [place] [address] * T4 FREE (04/28/2011 14:00 EST) Free T4 1.2 0.8 - 1.5 ng/dL [facility] Blood specimen (specimen) 04/28/2011 14:00 EST 04/28/2011 14:15 EST Paradise Reyes MD CHEMISTRY & BLOOD GA S ORDERABLES Performing Organization Address [facility] Phone Number [facility] [address] * TSH (04/28/2011 14:00 EST) TSH 0.80 0.35 - 5.00 uIU/ml [facility] Blood specimen (specimen) 04/28/2011 14:00 EST 04/28/2011 14:15 EST Praadise Reyes MD CHEMISTRY & BLOOD GA S ORDERABLES Performing Organization Address [facility] Phone Number [facility] [address] [address] documented in this encounter Visit Diagnoses Diagnosis Thyroiditis, autoimmune- Primary Chronic lymphocytic thyroiditis documented in this encounter Discontinued Medications Medication Sig Discontinue Reason Start Date End Da te valACYclovir (VALTREX) 500 mg tabletIndications:herpe s labialis Take 500 mg by mouth daily. Indications: HERPES LABIALIS 05/15/2010 04/28/2011 documented as of this encounter Care Teams Transportation Superintendent Relationship Specialty Start Date End Date Sugar Lacy MD [address] [place] [address] PCP - General 02/27/10 01/26/13 documented as of this encounter
--- OUTSIDE RECORDS SUMMARY | 2023-12-04 20:21 | XMS_ITS | Encounter Summary ---
Author Organization [facility] Address [address] [place] [address] Care Team Providers Care Ingot Header Name Role Phone Sugar Lacy MD Primary Care Provider Reason for Visit * Reason Onset Date Comments Results 02/16/2011 Encounter Details Date Type Department Care Team (Late st Contact Info) Description 02/16/2011 Orders Only [facility] Pediatric Endocrinology - [place] [address] [place] [address] Nancy Cleveland RN [address] [place] [address] Thyroiditis, autoimmune Social History Tobacco Use Types [...] Date/Time Associated Diagnosis Comments T3, TOTAL Routine 02/13/2011 7:03 EST Thyroiditis, autoimmune TSH Routine 02/13/2011 7:03 EST Thyroiditis, autoimmune T4 FREE Routine 02/13/2011 7:03 EST Thyroiditis, autoimmune T4 Routine 02/13/2011 7:03 EST Thyroiditis, autoimmune documented in this encounter Results * T3, TOTAL (02/13/2011 7:03 EST) T3 TOTAL, External 89 85 - 188 [facility] Blood specimen (specimen) 02/13/2011 7:03 EST Paradise Reyes MD CHEMISTRY & BLOOD GA S ORDERABLES Performing Organization Address [facility] Co de Phone Number [facility] * (ABNORMAL) T4 (02/13/2011 7:03 EST) Blood specimen (specimen) 02/13/2011 7:03 EST Narrative [facility] - 02/16/2011 13:29 EST T4 resullt: ??3.78 (ref 5.53 - 11.0) Paradise Reyes MD CHEMISTRY & BLOOD GA S ORDERABLES Performing Organization Address [facility] Co de Phone Number [facility] * (ABNORMAL) T4 FREE (02/13/2011 7:03 EST) Free T4, External 0.58(A) 0.78 - 2.19 [facility] Blood specimen (specimen) 02/13/2011 7:03 EST Paradise Reyes MD CHEMISTRY & BLOOD GA S ORDERABLES Performing Organization Address [facility] Co de Phone Number [facility] * TSH (02/13/2011 7:03 EST) TSH, External 20.0 0.47 [facility] Blood specimen (specimen) 02/13/2011 7:03 EST Narrative [facility] - 02/16/2011 13:29 EST 12/11/10 TSH = 1.18 while on methimazole 15 mg BID (TBII, TSI neg); 02/16/11 pls call mom: ??1) decrease methimazole to 10 mg BID 2) repeat labs (TSH, FT4 T4, T3, LFT's) in ~~1 mo - MK Paradise Reyes MD CHEMISTRY & BLOOD GA S ORDERABLES [facility] documented in this encounter Visit Diagnoses Diagnosis Thyroiditis, autoimmune Chronic lymphocytic thyroiditis documented in this encounter Care Teams Ingot Header Relationship Specialty Start Date End Date Sugar Lacy MD [address] [place] [address] PCP - General 02/27/10 01/26/13 documented as of this encounter
--- OUTSIDE RECORDS SUMMARY | 2023-12-04 20:21 | XMS_ITS | Encounter Summary ---
Author Organization [facility] Address [address] [place] [address] Care Team Providers Care Tile Decorator Name Role Phone Sugar Lacy MD Primary Care Provider [phone] Reason for Visit * Reason Comments Contraception implanon insert Encounter Details Date Type Department Care Team (Latest Contact Info) Description 01/01/2011 10:30 EDT Office Visit [facility] - [facility] [address] [place], [place] [id number] Ariel Soto MD MSc Insertion of implantable subdermal contraceptive (Primary Dx) Social History Tobacco Use Types [...] Sign Reading Time Taken Comments Blood Pressure 118/72 01/01/2011 1016 EDT Pulse - - Temperature - - Respiratory Rate - - Oxygen Saturation - - Inhaled Oxygen Concentration - - Weight - - Height 157.5 cm (5' 2) 01/01/2011 1016 EDT Body Mass Index - - documented in this encounter Ordered Prescriptions Prescription Sig Dispensed Refills Start Date End Da te Etonogestrel (IMPLANON) 68 mg Impl 68 mg by Subdermal route once. 68 mg 0 01/01/2011 01/01/2014 documented in this encounter Progress Notes * Ariel Soto MD - 01/01/2011 1043 EDT Procedure Note: Implanon Insert Patient currently using nothing for contraception. Procedure explained and patient consented. Lidocaine 1% injected in groove between triceps and biceps in rt arm. Site prepped with betadine. Implanon inserted using insertion needle. Device palpated by both physician and patient. Pressure dressing applied. Lot # [id number] Exp date 04/2013 Ariel Soto MD documented in this encounter Miscellaneous Notes * Scanned Note-Null - Lab Support Service Tech, Scan - 01/05/2011 1245 EST * Scanned Note-Null - Lab Support Service Tech, Scan - 01/05/2011 1240 EST documented in this encounter Plan of Treatment Not on file documented as of this encounter Visit Diagnoses Diagnosis Insertion of implantable subdermal contraceptive- Primary documented in this encounter Care Teams Tile Decorator Relationship Specialty Start Date End Date Sugar Lacy MD [address] [place] [phone] PCP - General 02/27/10 01/26/13 documented as of this encounter
--- OUTSIDE RECORDS SUMMARY | 2023-12-04 20:21 | XMS_ITS | Encounter Summary ---
Author Organization [facility] Address [address] [place] [address] Care Team Providers Care Golf Coach Name Role Phone Sugar Lacy MD Primary Care Provider Reason for Visit * Reason Comments Graves' Disease Encounter Details Date Type Department Care Team (Latest Contact Info) Description 07/14/2012 13:40 EDT Office Visit [facility] Endocrinology - [facility] [address] [place] [address] Carlos Nuñez, [address] [facility] [address] [place] [address] Autoimmune thyroiditis (Primary Dx) Discharge Disposition: Auto Discharge Social [...] Reading Time Taken Comments Blood Pressure 108/64 07/14/2012 1339 EDT Pulse 68 07/14/2012 1339 EDT Temperature - - Respiratory Rate - - Oxygen Saturation - - Inhaled Oxygen Concentration - - Weight 73.8 kg (162 lb 12.8 oz) 07/14/2012 1339 EDT Height 157.5 cm (5' 2) 07/14/2012 1339 EDT Body Mass Index 29.78 07/14/2012 1339 EDT Body Mass Index Percentile 93.80% 07/14/2012 133 9 EDT Growth Chart: [facility] (Girls, 2- 20 Years) documented in this encounter Patient Instructions * Patient Instructions* Carlos Nuñez DO - 07/14/2012 14:[address] Nuñez will inform you of your lab results by phone or mail within 2 weeks. If you do not receive your test results after two weeks please contact the office. 2. Call with questions, concerns or change in symptoms. 3. Follow-up in 6 months documented in this encounter Discharge Disposition Disposition Code Departure Means Destination Auto Discharge documented in this encounter Progress Notes * Carlos Nuñez DO - 07/14/2012 1434 EDT HPI: I had the pleasure of seeing your patient, Ms Tiny Cervantes, , in consultation in the [facility] adult endocrinology clinic today 07/14/2012 for further evaluation and management of her abnormal thyroid function tests. As you know, Ms Cervantes is a pleasant 16-year-old female who I first met in the adult pediatric endocrine transition clinic in April of 2012. She was previously followed by Dr Paradise Shannon. Her thyroid history has been somewhat confusing. She initially presented in 08/2008 with an elevated free T4 and suppressed TSH. Her free T4 at that time was 3.8 with a TSH of less than 0.02. She was on lithium at the time, which was subsequently discontinued. She had an I-123 iodine uptake. At initial presentation that was low at 1.5%. At initial presentation she had a negative thyrotropin receptor antibody TSI and anti TPO antibodies as well, but a positive antithyroglobulin and thyroid gland was found to be diffusely enlarged. She had an ultrasound conducted in 2008 at [facility],which showed an enlarged gland that was heterogeneous in echotexture without discrete nodules. 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 Her thyroid function tests were monitored periodically with fluctuating results. She has had evidence of euthyroidism, subclinical hyperthyroidism to overt hypothyroidism. Repeat antibody testing in 10/2009 showed her TSH receptor antibody and her TSI to be positive. She was clinically and biochemically hyperthyroid with a free T4 of 2.2. At that point her methimazole was started. In March of 2010, she had been on methimazole for approximately a year, but had poor compliance towards the end of that treatment. She subsequentlyhad her methimazole discontinued and was being followed clinically with frequent biochemical testing. Upon interview today, she reports feeling well. Denies heat intolerance, excessive sweating, visionchanges, changes in her eye appearance, palpitations, unintentional weight loss, increased appetite. She has unpredictable bowels, having times where she feels that she is constipated and other timesshe has diarrhea. She notes she is easily irritable, which is unchanged from previous reports. She has problems sleeping. No resting tremor. Notes some cold intolerance. She had some hair loss in March, which has since resolved. No bald spots or irritation on her scalp. She reports feeling fatigued. She is on an implantable control. REVIEW OF SYSTEMS: All other review of systems not found in the HPI were asked and found to be negative. PAST MEDICAL HISTORY: Reviewed as documented in electronic medical record. MEDICATIONS: Reviewed as documented in electronic medical record. FAMILY HISTORY: She has a father with hypothyroidism. SOCIAL HISTORY: No alcohol, tobacco or illicit drugs. She works at [employer], taking classes at [employer]. She lives with her boyfriend. OBJECTIVE: Blood pressure is 108/64, pulse is 68, weight is 162 pounds. This is essentially stable from 04/2012. Her BMI is 29. In general, patient is a pleasant 16-year-old female who is accompanied by her mother. She appears in no acute distress. HEENT: Eyes: No lid lag or periorbital edema noted.Extraocular muscles are intact. Sclerae and conjunctivae are without injection. She has no proptosis or exophthalmus. Neck is supple, no adenopathy. Her gland is mildly diffusely enlarged. She might have a slightly thickened isthmus. There are no palpable nodules. Her gland is nontender. Respiratory: Lungs clear to auscultation bilaterally. Cardiovascular: Heart is regular without murmurs, rubs, or gallops. GI: Abdomen is soft, nontender, nondistended, good bowel sounds in all 4 quadrants. Extremities: No clubbing, cyanosis or edema. Strength is 5/5 and equal bilaterally without proximal muscle weakness. Neuro: DTRs +2/4 and equal bilaterally in all 4 extremities, without a resting tremor. Psych: Patient is A and O x3. Speech and thoughts are appropriate. Denies depression, anxiety. DIAGNOSTIC DATA: Obtained on 04/13/2012 showed a TSH of 0.12, free T4 or 1.0, total T3 of 130 and TPO greater than 1300. ASSESSMENT: Ms Tiny Cervantes is an 16-year-old female whose most recent thyroid function tests are consistent with subclinical hyperthyroidism, although there could be some her TSH is only slightlybelow the low end of normal and her free T4 is well within the normal limit. Hard to say what exactly is her underlying thyroid pathology. Certainly Hashitoxicosis at initial presentation could have explained her symptoms, although it does not account for a positive thyrotropin receptor antibody. She was treated for about a year with intermittent methimazole, so one could say she may have been inremission from her Graves' disease. She really is clinically euthyroid today. Will recheck her thyroid function tests, including a free T4, free T3 and TSH, and a thyrotropin receptor antibody. We will move forward from that point. She had an ultrasound in 2008 that ruled out nodular disease. Unclear as to what effect the lithium may have had on her thyroid function. [place] is more commonly known for causing hypothyroidism, but there are cases of hyperthyroidism in the literature, although it is quite rare. I think at this point we will recheck her thyroid function tests including a TSH receptor antibody and see where we are with labs here at [facility] and make a further determinationas far as evaluation and management based on the laboratory data. We will see her back in the office in 6 months pending any changes. PLAN: 1. Recheck TSH, free T4, free T3 and thyrotropin receptor antibody. 2. Patient instructed to call with any questions or concerns or changes in symptoms. 3. I will contact patient with laboratory evaluation and provide any further evaluation and management as needed. 4. Follow up with me in 6 months. Thank you for allowing me to participate in the care of your patient, Ms Tiny Cervantes. As always, if you have any questions or concerns regarding her evaluation here in the endocrine clinic, please feel free to contact me. documented in this encounter Plan of Treatment Not on file documented as of this encounter Results * (ABNORMAL) THYROTROPIN RECEPTOR [...] 1.58 IU/L, respectively (97.5th percentiles). Performed by: [facility], [address] [place] [address], [place] [address], Bellperson: Chacha Carrington, Ph.D. Blood specimen (specimen) 07/14/2012 14:32 EDT 07/14/2012 20:06 EDT Carlos Nuñez DO CHEMISTRY & BL OOD GAS ORDERABLES Performing Organization Address [facility] Co de Phone Number [facility] [address] [place] [address] * (ABNORMAL) T3 FREE (07/14/2012 14:32 EDT) Pathologist [facility] T3, Free 6.2(H) 2.3 - 4.2 pg/mL [facility] Blood specimen (specimen) 07/14/2012 14:32 EDT 07/14/2012 20:06 EDT Carlos Nuñez DO CHEMISTRY & BL OOD GAS ORDERABLES Performing Organization Address [facility] Co de Phone Number [facility] [address] [place] [address] * T4 FREE (07/14/2012 14:32 EDT) Free T4 1.5 0.8 - 1.8 ng/dL [facility] Blood specimen (specimen) 07/14/2012 14:32 EDT 07/14/2012 20:06 EDT Carlos Nuñez DO CHEMISTRY & BL OOD GAS ORDERABLES Performing Organization Address [facility] Co de Phone Number [facility] [address] [place] [address] * (ABNORMAL) TSH (07/14/2012 14:32 EDT) TSH <0.02(L) 0.35 - 5.00 uIU/ml [facility] Blood specimen (specimen) 07/14/2012 14:32 EDT 07/14/2012 20:06 EDT Carlos Nuñez DO CHEMISTRY & BL OOD GAS ORDERABLES Performing Organization Address [facility] de Phone Number [facility] [address] [place] [address] documented in this encounter Visit Diagnoses Diagnosis Autoimmune thyroiditis- Primary Chronic lymphocytic thyroiditis documented in this encounter Care Teams Golf Coach Relationship Specialty Start Date End Date Sugar Lacy MD [address] [place] [phone] PCP - General 02/27/10 01/26/13 documented as of this encounter
--- OUTSIDE RECORDS SUMMARY | 2023-12-04 20:21 | XMS_ITS | Encounter Summary ---
Author Organization [facility] Address [address] [place] [address] Care Team Providers Care Stock Taker Name Role Phone Sugar Lacy MD Primary Care Provider [phone] Encounter Details Date Type Department Care Team (Latest Contact Info) Description 08/30/2012 10:47 EDT - 08/30/2012 23:59 EDT Hospital Encounter [facility] [address] [place] [address] Carlos Nuñez, DO [address] [facility] [address] [place] [phone] Discharge Disposition: Home or Self Care [...] once. 68 mg 0 01/01/2011 01/01/2014 documented as of this encounter Discharge Disposition Disposition Code Departure Means Destination Home or Self Longterm documented in this encounter Plan of Treatment Not on file documented as of this encounter Procedures Procedure Name Priority Date/Time Associated Diagnosis Comments TEST, URINE Routine 2012 9:21 EDT documented in this encounter Results * TEST, URINE (2012 9:21 EDT) Result- Test, Ur Negative [facility] Comment: NOTE: False negative results may occur in women who are beyond 5-8 weeks gestation. Diagnosis of should be based on a correlation of test results with typical clinical signs and symptoms. Urine specimen (specimen) URINE / Unknown 2012 9:21 EDT 10/05/2012 9:51 EDT Antonio Varela MD URINALYSIS [facility] Organization Address City/State/[facility] [[email or web address]] Co de Phone Number [facility] [address] [place] [address] documented in this encounter Visit Diagnoses Not on filedocumented in this encounter Care Teams Stock Taker Relationship Specialty Start Date End Date Sugar Lacy MD [facility][note 3][address] [place] [address] PCP - General 02/27/10 01/26/13 documented as of this encounter
--- OUTSIDE RECORDS SUMMARY | 2023-12-04 20:21 | XMS_ITS | Encounter Summary ---
Author Organization [facility] Address [address] [place] [address] Care Team Providers Care Metal Mine Inspector Name Role Phone Sugar Lacy MD Primary Care Provider Reason for Referral * (Routine/Next Available) - Closed Specialty Diagnoses / Procedures Referred By Contac t Referred To Contact Diagnoses Thyroiditis, autoimmune Procedures T3, TOTAL Nancy Cleveland RN [address] [place] [address] Referral ID Status Reason Start Date Expiration Date Visits Re quested Visits Authorized [id number] Closed 06/01/2011 1 1 * (Routine/Next Available) - Closed Specialty Diagnoses / Procedures Referred By Contac t Referred To Contact Diagnoses Thyroiditis, autoimmune Procedures T4 Nancy Cleveland RN [address] [place] [address] Referral ID Status Reason Start Date Expiration Date Visits Re quested Visits Authorized [id number] Closed 06/01/2011 1 1 * (Routine/Next Available) - Closed Specialty Diagnoses / Procedures Referred By Contac t Referred To Contact Diagnoses Thyroiditis, autoimmune Procedures T4 FREE Nancy Cleveland, ROU[facility] [address] [place] [address] Referral ID Status Reason Start Date Expiration Date Visits Re quested Visits Authorized [id number] Closed 06/01/2011 1 1 * (Routine/Next Available) - Closed Specialty Diagnoses / Procedures Referred By Eugene asencio Referred To Contact Diagnoses Thyroiditis, autoimmune Procedures TSH Nancy Cleveland RN [address] [place] [address] Referral ID Status Reason Start Date Expiration Date Visits Re quested Visits Authorized [id number] Closed 06/01/2011 1 1 Reason for Visit * Reason Onset Date Comments Results 06/01/2011 Medication Management 06/01/2011 Labs Only 06/01/2011 Encounter Details Date Type Department Care Team (Late st Contact Info) Description 06/01/[address] [facility] [facility] [place] [address] Nancy Cleveland RN [address] [place] [address] Results; Medication Management; Labs Only Social History [...] Telephone Encounter - Nancy Cleveland RN - 06/01/2011 1332 EDT Spoke with mom, Gricelda. Tiny misses 2-3 doses of methimazole a week (goes to 's on w/e, doesn'ttake med there either day) and misses at least 1 other dose during the week. To stop methimazole, labs in 1 month (~07/01/11), lab orders mailed to mom. documented in this encounter Plan of Treatment Not on file documented as of this encounter Results * T3, TOTAL (09/28/2011 13:24 EDT) T3, Total 101 60 - 181 ng/dL [facility] Blood specimen (specimen) 09/28/2011 13:24 EDT 09/28/2011 13:31 EDT Paradise Reyes MD CHEMISTRY & BLOOD GA S ORDERABLES [facility] [address] [place] [address] * T4 (07/13/2011 11:24 EDT) T4, Total, External 7.11 5.53 - 11.0 [facility] Blood specimen (specimen) 07/13/2011 11:24 EDT Paradise Reyes MD CHEMISTRY & BLOOD GA S ORDERABLES Performing Organization Address City/[facility]/ZIP Co de Phone Number [facility] * T4 FREE (07/13/2011 11:24 EDT) Free T4, External 1.07 0.78 - 2.19 [facility] Blood specimen (specimen) 07/13/2011 11:24 EDT Paradise Reyes MD CHEMISTRY & BLOOD GA S ORDERABLES Performing Organization Address City/[facility]/ZIP Co de Phone Number [facility] * TSH (07/13/2011 11:24 EDT) TSH, External 0.747 0.47 - 4.68 [facility] Blood specimen (specimen) 07/13/2011 11:24 EDT Paradise Reyes MD CHEMISTRY & BLOOD GA S ORDERABLES Performing Organization Address City/[facility]/ZIP Co de Phone Number [facility] documented in this encounter Visit Diagnoses Diagnosis Thyroiditis, autoimmune- Primary Chronic lymphocytic thyroiditis documented in this encounter Discontinued Medications Medication Sig Discontinue Reason Start Date End Da te methimazole (TAPAZOLE) 5 mg tabletIndications:Thyroid itis, autoimmune Take 1 Tab by mouth daily. Therapy completed 04/30/2011 06/01/2011 documented as of this encounter Care Teams Metal Mine Inspector Relationship Specialty Start Date End Date Sugar Lacy MD [address] [place] [address] PCP - General 02/27/10 01/26/13 documented as of this encounter
--- OUTSIDE RECORDS SUMMARY | 2023-12-04 20:21 | XMS_ITS | Encounter Summary ---
Author Organization [facility] Address [address] [place] [address] Care Team Providers Care Clark Driver Name Role Phone Sugar Lacy MD Primary Care Provider Reason for Referral * (Routine/Next Available) - Closed Specialty Diagnoses / Procedures Referred By Contac t Referred To Contact Diagnoses Autoimmune thyroiditis Procedures THYROID-STIMULATING IMMUNOGLOBULIN (TSI), SERUM Nancy Cleveland RN [address] [place] [address] Referral ID Status Reason Start Date Expiration Date Visits Re quested Visits Authorized [id number] Closed 01/18/2012 1 1 * (Routine/Next Available) - Closed Specialty Diagnoses / Procedures Referred By Contac t Referred To Contact Diagnoses Autoimmune thyroiditis Procedures THYROID ANTIBODIES Nancy Cleveland RN [address] [place] [address] Referral ID Status Reason Start Date Expiration Date Visits Re quested Visits Authorized [id number] Closed 01/18/2012 1 1 * (Routine/Next Available) - Closed Specialty Diagnoses / Procedures Referred By Contac t Referred To Contact Diagnoses Autoimmune thyroiditis Procedures T3, TOTAL Nancy Cleveland RN [address] [place] [address] Referral ID Status Reason Start Date Expiration Date Visits Re quested Visits Authorized [id number] Closed 01/18/2012 1 1 * (Routine/Next Available) - Closed Specialty Diagnoses / Procedures Referred By Eugene asencio Referred To Contact Diagnoses Autoimmune thyroiditis Procedures T4 Nancy Cleveland RN [address] [place] [address] Referral ID Status Reason Start Date Expiration Date Visits Re quested Visits Authorized [id number] Closed 01/18/2012 1 1 * (Routine/Next Available) - Closed Specialty Diagnoses / Procedures Referred By Eugene asencio Referred To Contact Diagnoses Autoimmune thyroiditis Procedures T4 FREE Nancy Cleveland RN [address] [place] [address] Referral ID Status Reason Start Date Expiration Date Visits Re quested Visits Authorized [id number] Closed 01/18/2012 1 1 * (Routine/Next Available) - Closed Specialty Diagnoses / Procedures Referred By Eugene asencio Referred To Contact Diagnoses Autoimmune thyroiditis Procedures TSH Nancy Cleveland RN [address] [place] [address] Referral ID Status Reason Start Date Expiration Date Visits Re quested Visits Authorized [id number] Closed 01/18/2012 1 1 Reason for Visit * Reason Onset Date Comments Results 01/18/2012 Encounter Details Date Type Department Care Team (Late st Contact Info) Description 01/18/2012 Orders Only [facility] Pediatric Endocrinology - [address] [address] Nancy Cleveland RN [address] [place] [phone] Autoimmune thyroiditis (Primary Dx) Social History Tobacco Use Types [...] Type Priority Associated Diagnoses Orde r Schedule THYROID ANTIBODIES Lab Routine Autoimmune thyroiditis Expected: 03/19/2012 (Approximate), Expires: 01/17/2013 THYROID-STIMULATING IMMUNOGLOBULIN (TSI), SERUM Lab Routine Autoimmune thyroiditis Expected: 03/19/2012 (Approximate), Expires: 01/17/2013 documented as of this encounter Procedures Procedure Name Priority Date/Time Associated Diagnosis Comments T3, TOTAL Routine 01/13/2012 10:15 EST Autoimmune thyroiditis TSH Routine 01/13/2012 10:15 EST Autoimmune thyroiditis T4 FREE Routine 01/13/2012 10:15 EST Autoimmune thyroiditis T4 Routine 01/13/2012 10:15 EST Autoimmune thyroiditis documented in this encounter Results * T3, TOTAL (04/13/2012 12:55 EST) T3 TOTAL, External 130 60 - 181 [facility] Comment:04/15/12 off methimaz ole, has appt 04/20/12 Blood specimen (specimen) 04/13/2012 12:55 EST Paradise Reyes MD CHEMISTRY & BLOOD GA S ORDERABLES [facility] * T4 (04/13/2012 12:55 EST) T4, Total, External 6.99 5.53 - 11.0 [facility] Comment:04/15/12 off methimaz ole, has appt 04/20/12 Blood specimen (specimen) 04/13/2012 12:55 EST Paradise Reyes MD CHEMISTRY & BLOOD GA S ORDERABLES [facility] * T4 FREE (04/13/2012 12:55 EST) Free T4, External 1.09 0.78 - 2.19 [facility] Comment:04/15/12 off methimaz ole, has appt 04/20/12 Blood specimen (specimen) 04/13/2012 12:55 EST Paradise Reyes MD CHEMISTRY & BLOOD GA S ORDERABLES [facility] * (ABNORMAL) TSH (04/13/2012 12:55 EST) TSH, External 0.129(A) 0.47 - 4.68 [facility] Comment:04/15/12 off methimaz ole, has appt 04/20/12 Blood specimen (specimen) 04/13/2012 12:55 EST Paradise Reyes MD CHEMISTRY & BLOOD GA S ORDERABLES [facility] * T3, TOTAL (01/13/2012 10:15 EST) T3 TOTAL, External 102 60 - 181 [facility] Comment:01/14/12 TSH nl but trending down (last time 2.18 09/28/11). Rec: repeat TFT's in 2 mos add TSHr Abs, TSI, f/u in transition clinic??/with me in 3-4 mos. MK Blood specimen (specimen) 01/13/2012 10:15 EST Historical Provider CHEMISTRY & BLOOD GAS ORDERABLES [facility] * T4 (01/13/2012 10:15 EST) T4, Total, External 6.49 5.53 - 11.0 [facility] Blood specimen (specimen) 01/13/2012 10:15 EST Historical Provider CHEMISTRY & BLOOD GAS ORDERABLES [facility] * T4 FREE (01/13/2012 10:15 EST) Free T4, External 1.04 [facility] Comment:01/14/12 TSH nl but trending down (last time 2.18 09/28/11). Rec: repeat TFT's in 2 mos add TSHr Abs, TSI, f/u in transition clinic??/with me in 3-4 mos. MK Blood specimen (specimen) 01/13/2012 10:15 EST Historical Provider CHEMISTRY & BLOOD GAS ORDERABLES [facility] * TSH (01/13/2012 10:15 EST) TSH, External 0.734 0.47 - 4.68 [facility] Comment:01/14/12 TSH nl but trending down (last time 2.18 09/28/11). Rec: repeat TFT's in 2 mos add TSHr Abs, TSI, f/u in transition clinic??/with me in 3-4 mos. MK Blood specimen (specimen) 01/13/2012 10:15 EST Historical Provider CHEMISTRY & BLOOD GAS ORDERABLES [facility] documented in this encounter Visit Diagnoses Diagnosis Autoimmune thyroiditis- Primary Chronic lymphocytic thyroiditis documented in this encounter Care Teams Clark Driver Relationship Specialty Start Date End Date Sugar Lacy MD [address] [place] [address] PCP - General 02/27/10 01/26/13 documented as of this encounter
--- OUTSIDE RECORDS SUMMARY | 2023-12-04 20:21 | XMS_ITS | Encounter Summary ---
Author Organization [facility] Address [address] [place] [address] Care Team Providers Care Choreography Director Name Role Phone Sugar Lacy MD Primary Care Provider Encounter Details Date Type Department Care Team (Late st Contact Info) Description 09/29/2011 Orders Only [facility] Pediatric Endocrinology - [address] [place] [address] [place] [address] Paradise Reyes MD [address] [phone] Abnormal thyroid function test (Primary Dx) Social History Tobacco Use Types [...] Date/Time Associated Diagnosis Comments OUTPATIENT ADD-ON Routine 09/29/2011 16: 49 EDT Abnormal thyroid function test documented in this encounter Results * OUTPATIENT ADD-ON (09/29/2011 16:49 EDT) Tests to be added BETA HCG, CMP [facility] Diagnosis Code SEE PRISM, DOS 7.30.12 [facility] Number for problems [id number] [facility] Accession number [id number] [facility] Acknowledge ABP Done [facility] 09/29/2011 16:4 9 EDT 09/29/2011 16:53 EDT Paradise Reyes MD HEMATOLOGY & PF4 ORD ERABLES Performing Organization Address City/State/[place] Co de Phone Number [facility] [address] [place] [address] documented in this encounter Visit Diagnoses Diagnosis Abnormal thyroid function test- Primary Nonspecific abnormal results of thyroid function study documented in this encounter Care Teams Choreography Director Relationship Specialty Start Date End Date Sugar Lacy MD [facility] [place] [address] PCP - General 02/27/10 01/26/13 documented as of this encounter
--- OUTSIDE RECORDS SUMMARY | 2023-12-04 20:21 | XMS_ITS | Encounter Summary ---
Author Organization [facility] Address [address] [place] [address] Care Team Providers Care Shredder/Granulator Operator Name Role Phone Sugar Cabrera MD Primary Care Provider Reason for Visit * Reason Comments Vitamin D Deficiency Thyroid Problem Encounter Details Date Type Department Care Team (Latest Contact Info) Description 09/28/2011 12:00 EDT Office Visit [facility] Pediatric Endocrinology - [place] [address], [place] [address] Paradise Reyes MD [address] [address] Subacute thyroiditis; Abnormal thyroid function test; Fatigue Discharge Disposition: Auto Discharge Social History Tobacco [...] Sign Reading Time Taken Comments Blood Pressure 109/55 09/28/2011 1231 EDT Pulse 66 09/28/2011 1231 EDT Temperature - - Respiratory Rate - - Oxygen Saturation - - Inhaled Oxygen Concentration - - Weight 68.9 kg (151 lb 14.4 oz) 09/28/2011 1231 EDT Height 158 cm (5' 2.21) 09/28/2011 1231 EDT Body Mass Index 27.6 09/28/2011 1231 EDT Body Mass Index Percentile 90.86% 09/28/2011 123 1 EDT Growth Chart: [facility] (Girls, 2- 20 Years) documented in this encounter Discharge Disposition Disposition Code Departure Means Destination Auto Discharge documented in this encounter Progress Notes * Paradise Shannon MD - 09/28/2011 1340 EDT Pediatric Endocrinology Follow Up Patient Identification: 16 y.o. old female Reason for follow up: hyperthyroidism Date of service: 09/28/2011 Primary Care Provider: SUGAR CABRERA MD History obtained from: patient and mother Interval History: Tiny came today for a follow up visit of her hyperthyroidism secondary to autoimmune thyroiditis. She was last seen on 04/28/11; she missed transition clinic appointment last week due to transportation issue, will be rescheduled for the fall. Tiny initially presented (08/2008) with high FT4 and suppressed TSH (FT4 3.8, TSH <0.02) 12/06while on [place] which was subsequently discontinued. Her 123 Iodine uptake at that time was low (1.5%, nl.10-30%), she had negative TSHr-Ab, TSI, anti TPO, and positive anti TG Ab. Her thyroid glandwas diffusely enlarged, she had on and off complaint of discomfort with swallowing, had mild intermi ttent symptoms of hyperthyroidism, no beta blockers were started. 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 TFTs were monitored periodically with fluctuating results: euthyroid, subclinical hyperthyroid to clear hyperthyroid with undetectable TSH. On repeated antibodies testing (10/2009) her TSHr and TSI were positive; she was hyperthyroid clinically and biochemically (FT4 2.2), methimazole was started on 03/2010. She has been tolerating antithyroid medication well, no reported side effects; her compliance with antithyroid medication was inconsistent; subsequently discontinued when TFTs were reassuring. Tiny was diagnosed with vitamin D insufficient, supplementing was recommended, taken inconsistently and subsequently discontinued. 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 Tiny had implanon placed on 12/2010. She did not have menstrual bleeding for the last 6-7 months, reports intermittent abdominal cramps. She was concerned today that she might be pregananct due tobreast tenderness, favorite food makes me sick, intermittent back pain and asked to be tested. She had no difficulties with asthma, no need for inhaler use since last visit. Tiny continues loosing weight, she has been trying to eat less and be more active. Denies inducing vomiting. Positive for: Fatigue, chronic, gets good overnight sleep, takes no naps in the afternoon Abdominal pain: left mid-lower, 3-7 days a week, tried different OTC meds with no improvement, no clear triggers Headaches: right frontal, sometimes shortly after awakening, sometimes at HS, takes no meds, can sleep through it, occurs 2-3 times/week, no associated nausea, no emesis, no visual changes (wears glasses for distant vision, no recent change in rx, due for visit in the fall 2011) Temperature intolerance: heat and cold, on and off Hair loss: for a long time', much less lately, no bald spots, no other body hair loss, no skin changes Negative for: neck swelling, voice hoarseness, dysphagia, fatigue, appetite change, skin change, diarrhea, constipation, tremor, palpitations, difficulty concentrating, diffuculty sleeping, bone [...] puffs as needed Adherence with endocrine medications: stoped taking methimazole 04/2011 (?) Does not take vitamins or supplements. Allergies: Izzyabid Social History: Social History ??? Lives with Mother exclusively ??? Education Grade 12 Physical Exam: Vitals: BP 109/55 Pulse 66 Ht 158 cm (62.21) Wt 68.9 kg (151 lb 14.4 oz) BMI 27.60 kg/m2 18.9% systolic and 10.4% diastolic of BP percentile by age, sex, and height. Height: 1.58 m (5' 2.21) (21.45%) Weight: 68.9 kg (151 lb 14.4 oz) (85.53%) Body mass index is 27.60 kg/(m^2). 90.86%ile based on CDC 2-20 Years BMI-for-age data. [...] Sexual Development: deferred Data Review/Interval Investigations: Date: 04/28/11 TSH 0.8, free T4 1.2, total T3 90 and total T4 8.6, A1C 4.7%, celiac serology negative (recommneded restarting methimazole 5 mg QD) Date: 05/29/11 TSH 1.54, total T3 141 and total T4 7.02 (was missing 2-3 doses of methimazole/week, methimazole was stopped) Date: 07/13/11 TSH 0.747, free T4 1.07 and total T4 7.11 Assessment: 16 y.o. old female with autoimmune thyroiditis. Briefly treated with methimazole, TFTs' imrpved, patient non-compliant with meds , those were subsequently discontinued. No goiter on exam, on fullnessover thyroid bed, no nodularity. Clinically euthyroid today, except for ongoing weight loss due to lifestyle changes? No polyuria, polydipsia. Vitamin D insufficiency, not taking supplementation as recommended. Suggestions/Plan: Investigations: TSH, free T4, total T4 and total T3, CBC, CMP, HCG Topics reviewed today: symptoms and signs of hypothyroidism and hyperthyroidism likelikhood of spontaneous remission in Grave's disease bone health Medications prescribed: none awaiting results Additional recommendations: repeat thyroid function tests locally in 3 months or earlier with new S&S Disposition: Will be scheduled for Pediatric-Adult Endocrine Transition clinic in about 6 months I spent a total of 30 minutes in face to face time with this patient and 20 minutes of that time was spent in counseling and coordination of care as described in the progress note. Paradise Shannon MD 09/28/2011 13:40 documented in this encounter Plan of Treatment Not on file documented as of this encounter Visit Diagnoses Diagnosis Subacute thyroiditis Abnormal thyroid function test Nonspecific abnormal results of thyroid function study Fatigue Other malaise and fatigue documented in this encounter Orders Lab Orders Without Results Count Last Ordered D ate First Ordered Date COMPREHENSIVE METABOLIC PANEL (CMP) 1 09/27 HCG 1 09/28/2011 HEMAGRAM AND DIFFERENTIAL 1 09/28/2011 T3, TOTAL 1 09/28/2011 T4 09/28/2011 T4 FREE 1 09/28/2011 TSH 1 09/28/2011 documented in this encounter Care Teams Shredder/Granulator Operator Relationship Specialty Start Date End Date Sugar Cabrera MD [address] [place] [address] PCP - General 02/27/10 01/26/13 documented as of this encounter
--- OUTSIDE RECORDS SUMMARY | 2023-12-04 20:21 | XMS_ITS | Encounter Summary ---
Author Organization [facility] Address [address] [place] [address] Care Team Providers Care Curatorial Assistant Name Role Phone Sugar Lacy MD Primary Care Provider [phone] Reason for Visit * Reason Comments Gynecologic Exam Encounter Details Date Type Department Care Team (Latest Contact Info) Description 11/04/2011 8:30 EDT Office Visit [facility] OBGYN Services - [facility] [address] [place], [place] [id number] Ariel Soto MD MSc Routine gynecological examination (Primary Dx); Screening examination for venereal disease [...] Sign Reading Time Taken Comments Blood Pressure 120/70 11/04/2011 0840 EDT Pulse - - Temperature - - Respiratory Rate - - Oxygen Saturation - - Inhaled Oxygen Concentration - - Weight 69.5 kg (153 lb 3.2 oz) 11/04/2011 0840 E DT Height 158.8 cm (5' 2.5) 11/04/2011 0840 EDT Body Mass Index 27.57 11/04/2011 0840 EDT Body Mass Index Percentile 90.67% 11/04/2011 084 0 EDT Growth Chart: [facility] (Girls, 2- 20 Years) documented in this encounter Discharge Disposition Disposition Code Departure Means Destination Auto Discharge documented in this encounter Progress Notes * Ariel Soto MD - 11/04/2011 0907 EDT S. 16yo with one episode of irreg bleeding on implanon. Is sexually active. O. Neck thyroid ok Breasts no masses Ext genital within normal limits Vagina within normal limits cx ok (pap no/hpv no/gc-ct yes) Uterus small mobile ant Adnexae no masses Rectovaginal deferred A. Nl exam P. Return in one year. If irreg bleeding becomes frequent would try a course of EE x 21d. Ariel Soto MD documented in this encounter Plan of Treatment Not on file documented as of this encounter Procedures Procedure Name Priority Date/Time Associated Diagnosis Comments CHLAMYDIA/N. GONORRHOEAE AMPLIFIED NUCLEIC ACID Routine 11/04/2011 9:06 EDT Screening examination for venereal disease documented in this encounter Results * CHLAMYDIA/GC AMPLIFIED (11/04/2011 9:06 EDT) Specimen Description [facility] Chlamydia Result No Chlamydia trachomatis DNA detected by swimming pool maintenance mediated amplification. [facility] GC Result No Neisseria gonorrhoeae DNA detected by swimming pool maintenance mediated amplification. [facility] Specimen of unknown material (specimen) TOPOGRAPHY UNKNOWN / Unknown 11/04/2011 9:06 EDT 11/04/2011 11:02 EDT Ariel Soto MD MSc MICROBIOLOG Y - GENERAL ORDERABLES [facility] [address] [place] [address] documented in this encounter Visit Diagnoses Diagnosis Routine gynecological examination- Primary Screening examination for venereal disease documented in this encounter Care Teams Curatorial Assistant Relationship Specialty Start Date End Date Sugar Lacy MD [address] [facility] [place] [address] PCP - General 02/27/10 01/26/13 documented as of this encounter
--- OUTSIDE RECORDS SUMMARY | 2023-12-04 20:21 | XMS_ITS | Encounter Summary ---
Author Organization [facility] Address [address] [place] [address] Care Team Providers Care Apartment House Manager Name Role Phone Sugar Lacy MD Primary Care Provider Encounter Details Date Type Department Care Team (Late st Contact Info) Description 07/27/2012 Results Only Imaging [facility] Endocrinology - [facility] [address], [place] [id number] Carlos Nuñez, DO [address] [facility] [address] [place] [address] Social History Tobacco Use Types [...] on filedocumented in this encounter Care Teams Apartment House Manager Relationship Specialty Start Date End Date Sugar Lacy MD [address] [place] [phone] PCP - General 02/27/10 01/26/13 documented as of this encounter
--- OUTSIDE RECORDS SUMMARY | 2023-12-04 20:21 | XMS_ITS | Encounter Summary ---
Author Organization [facility] Address [address] [place] [address] Care Team Providers Care Central Supply Technician Name Role Phone Sugar Lacy MD Primary Care Provider Encounter Details Date Type Department Care Team (Late st Contact Info) Description 12/11/2010 Phlebotomy Only [facility] [address] [place] [address] Tool Machinist, Outpatient Thyroiditis, autoimmune; Obesity; Acanthosis nigricans Social History Tobacco Use Types Packs/Day Years [...] Associated Diagnosis Comments THYROTROPIN RECEPTOR ANTIBODY Routine 12/11/2010 9:32 EDT Thyroiditis, autoimmune Obesity Acanthosis nigricans THYROID-STIMULATING IMMUNOGLOBULIN (TSI), SERUM Routine 12/11/2010 9:32 EDT Thyroiditis, autoimmune Obesity Acanthosis nigricans COMPLETE BLOOD COUNT AND DIFFERENTIAL Routine 12/11/2010 9:32 EDT Thyroiditis, autoimmune Obesity Acanthosis nigricans T3, TOTAL Routine 12/11/2010 9:32 EDT Thyroiditis, autoimmune Obesity Acanthosis nigricans TSH Routine 12/11/2010 9:32 EDT Thyroiditis, autoimmune Obesity Acanthosis nigricans T4 FREE Routine 12/11/2010 9:32 EDT Thyroiditis, autoimmune Obesity Acanthosis nigricans HEMOGLOBIN A1C Routine 12/11/2010 9:32 EDT Thyroiditis, autoimmune Obesity Acanthosis nigricans GLUCOSE, SERUM Routine 12/11/2010 9:32 EDT Thyroiditis, autoimmune Obesity Acanthosis nigricans HEPATIC FUNCTION PANEL (ALB,ALK PHOS,ALT,AST,DBIL,TOT HARDEEP,TOT PROT) Routine 12/11/2010 9:32 EDT Thyroiditis, autoimmune Obesity Acanthosis nigricans documented in this encounter Results * LIVER FUNCTION TESTS (12/11/2010 9:32 EDT) Albumin 4.1 3.0 - 5.5 g/dl [facility] Total Protein 7.6 6.3 - 8.6 g/dl [facility] Total Alkaline Phosphatase 87 50 - 130 U/L [facility] ALT 39 0 - 45 U/L [facility] AST 34 15 - 46 U/L [facility] Unconjugated Bilirubin 0.2 0.1 - 1.1 mg/dl [facility] Conjugated Bilirubin 0.0 0.0 - 0.3 mg/dl [facility] Bilirubin, Total <0.5 0.0 - 1.4 mg/dl [facility] Blood specimen (specimen) 12/11/2010 9:32 EDT 12/11/2010 9:55 EDT Paradise Reyes MD CHEMISTRY & BLOOD GA S ORDERABLES [facility] [address] [place] [address] * HEMAGRAM AND DIFFERENTIAL (12/11/2010 9:32 EDT) WBC 5.63 4.6 - 11.2 K/cmm [facility] RBC 4.71 4.10 - 5.10 M/cmm [facility] Hemoglobin 13.9 12.0 - 16.0 gm/dl [facility] HCT 41.3 36.0 - 46.0 % [facility] MCV 88 78 - 102 fl [facility] MCH 29.5 pg [facility] MCHC 33.7 gm/dl [facility] PLT 258 156 - 312 K/cmm [facility] RDW-CV 13.7 % [facility] % Neutrophils 53.2 % [facility] % Lymphocytes 38.0 % [facility] % Monocytes 7.8 % [facility] % Eosinophils 0.4 % [facility] % Basophils 0.6 % [facility] ABS Neutrophils 2.99 K/cmm [facility] ABS Lymphs 2.14 K/cmm [facility] ABS Monocytes 0.44 K/cmm [facility] ABS Eosinophils 0.02 K/cmm [facility] ABS Basophils 0.03 K/cmm [facility] Type of Diff: Automated [facility] Blood specimen (specimen) 12/11/2010 9:32 EDT 12/11/2010 9:55 EDT Paradise Reyes MD PACKAGES & DNA PROBE ORDERABLES [facility] [address] [place] [address] * (ABNORMAL) GLUCOSE, SERUM (12/11/2010 9:32 EDT) Glucose, Serum 57(L) 70 - 100 mg/dl [facility] Blood specimen (specimen) 12/11/2010 9:32 EDT 12/11/2010 9:55 EDT Paradise Reyes MD CHEMISTRY & BLOOD GA S ORDERABLES [facility] [address] [place] [address] * HEMOGLOBIN A1C (12/11/2010 9:32 EDT) Hemoglobin A1C 5.1 % [facility] Comment: Reference Range: <5.7% Normal 5.7-6.4% Increased risk for diabetes =>6.5% Diagnostic for diabetes (if confirmed) The A1c goal for non adults in general is <7%. The A1c goal for selected patients may be significantly lower than 7% if this can be achieved without significant hypoglycemia or other adverse effects of treatment. Est Avg Glucose 100 mg/dl [facility] Comment: eAG represents the A1c result expressed as average glucose in mg/dl. Blood specimen (specimen) 12/11/2010 9:32 EDT 12/11/2010 9:55 EDT Paradise Reyes MD CHEMISTRY & BLOOD GA S ORDERABLES Performing Organization Address [facility] Co de Phone Number [facility] [address] [place] [address] * THYROID-STIMULATING IMMUNOGLOBULIN (TSI), SERUM (12/11/2010 9:32 EDT) Pathologist [facility] Thyroid Stimulating Immunoglobulin 1.3 <=1.3 TSI index [facility] Comment: Performed or Referred by: [facility] Dpt of Lab Med and Path, [address] [place] [address], Lab Dir: Surinder Mackay III, MD Blood specimen (specimen) 12/11/2010 9:32 EDT 12/11/2010 9:55 EDT Paradise Reyes MD CHEMISTRY & BLOOD GA S ORDERABLES Performing Organization Address [facility] Co de Phone Number [facility] [address] [place] [address] * THYROTROPIN RECEPTOR ANTIBODY (12/11/2010 9:32 EDT) [facility] Thyrotropin Receptor Ab 1.21 0.00 - 1.75 IU/L [facility] Comment: (Note) At a decision limit of 1.75 IU/L, this assay has 97% sensitivity and 99% specificity for detection of Graves' disease. In healthy individuals and in patients with thyroid disease without diagnosis of Graves' disease, the upper limit of anti-TSHR values are 1.22 IU/L and 1.58 IU/L, respectively (97.5th percentiles). Performed by: [facility] D[facility] Lab Med [facility] , [address] [place], [place] [address], Lab Dir: ??Surinder Mackay III, M.D. Blood specimen (specimen) 12/11/2010 9:32 EDT 12/11/2010 9:55 EDT Paradise Reyes MD CHEMISTRY & BLOOD GA S ORDERABLES Performing Organization Address [facility] Co de Phone Number [facility] [address] [place] [address] * T3, TOTAL (12/11/2010 9:32 EDT) T3, Total 121 85 - 188 ng/dL [facility] Blood specimen (specimen) 12/11/2010 9:32 EDT 12/11/2010 9:55 EDT Paradise Reyes MD CHEMISTRY & BLOOD GA S ORDERABLES Performing Organization Address [facility] Co de Phone Number [facility] [address] [place] [address] * T4 FREE (12/11/2010 9:32 EDT) Free T4 1.1 0.8 - 1.5 ng/dL [facility] Blood specimen (specimen) 12/11/2010 9:32 EDT 12/11/2010 9:55 EDT Paradise Reyes MD CHEMISTRY & BLOOD GA S ORDERABLES Performing Organization Address City/[facility] Co de Phone Number [facility] [address] [place] [address] * TSH (12/11/2010 9:32 EDT) TSH 1.18 0.35 - 5.00 uIU/ml [facility] Blood specimen (specimen) 12/11/2010 9:32 EDT 12/11/2010 9:55 EDT Paradise Reyes MD CHEMISTRY & BLOOD GA S ORDERABLES Performing Organization Address City/State/[facility] Co de Phone Number [facility] [address] [place] [address] documented in this encounter Visit Diagnoses Diagnosis Thyroiditis, autoimmune Chronic lymphocytic thyroiditis Obesity Obesity, unspecified Acanthosis nigricans Acquired acanthosis nigricans documented in this encounter Care Teams Central Supply Technician Relationship Specialty Start Date End Date Sugar Lacy MD [address] [place] [phone] PCP - General 02/27/10 01/26/13 documented as of this encounter
--- OUTSIDE RECORDS SUMMARY | 2023-12-04 20:22 | XMS_ITS | Encounter Summary ---
Author Organization [facility] Address [address] [place] [address] Care Team Providers Care Childcare Teacher Name Role Phone Manny Boles MD Primary Care Provider [phone] Sugar Lacy MD Primary Care Provider Encounter Details Date Type Department Care Team (Late st Contact Info) Description 12/15/2007 Before PRISM Converted Visit (Maple) [facility] - Maple conversion [address] [place] [address] Paradise Reyes MD [address] [place] [phone] Social History Tobacco Use Types Packs/Day Years Used Date Smoking Tobacco: Never Assessed Sex and Gender Information Value Date Recorded Sex Assigned at Not on file Gender Identity Female 03/02/2019 11:17 EST Sexual Orientation Not on file documented as of this encounter Consult Notes * Paradise Shannon MD - 09/22/2008 0717 EDT CONSULTATION - 12/15/2007 Sugar Lacy M.D. [facility] [address] [place] [id number] Lacy: I had the pleasure of seeing your patient, Tiny, a 14-2/12-year-old female in pediatric endocrine clinic for initial consultation with chief complaint of hyperthyroidism. Current Medications: Ratcliff. 2. Depo-Provera. 3. Strattera. of Present Illness: Tiny was accompanied by her mother who provided most of the history. Tinyhas longstanding psychiatric history and she was recently evaluated in emergency room in [facility] on 11/29/2007 for suicidal attempt. She cut herthroat and wrist with steak knife, cuts were superficial. Blood was drawn for lithium level (which was reportedly within normal range) andTFTs without reported signs or symptoms of hyperthyroidism. TSH was suppressed and free T4 was levated (TSH< 0.02 uIU/ml; FT4 2.1ng/dl). The tests were repeated a few days later revealing similar results. During the ER visit she was also diagnosed with urinary tract infection and started on antib iotics. Tiny does not report change of her neck appearance. No pain on swallowing. No difficulty breathing. She gets tired easily which does not appear to have changed significantly within the last few weeks. Her weight fluctuates with no reported recent weight loss. She reports having decreased appetite, denies temperature intolerance, denies skin changes. No change in bowel movements such as constipation or diarrhea. She has occasional tremors, sometimes feeling heart beating really fast when she would be just sitting. She has trouble concentrating at school which is a longstanding issue, hardto assess change compared to baseline. She has been waking up through the night for no reason. No reported changes of eyes appearance or changes in vision. She was started on Depo-Provera for heavy menstrual flow in the past. She gother last shot about 10+ weeks ago and she would be due anytime soon. She is sexually active. Current treatment with Ratcliff was started in June 2006 and recently the dose has been decreased with the goal to discontinue Ratcliff if possible. Tiny reportshaving thyroid tests done about a year ago while she was several months on Ratcliff. Reportedly those thyroid tests were normal. Laboratory Results: On 11/29/2007 free T4 was 2.1ng/dl, TSH less than 0.02 uIU/ml. On 12/01/2007 free T4 was 2.3, TSH less than 0.02. Past Medical History: Tiny was born full term. weight 7 pounds 3 ounces, length 18 inches. There were no reported complications during the , or period. She was diagnosed with attention deficit hyperactivity disorder and has mood disorder no otherwise specified, reportedly does not meet criteria for bipolar disorder. She has self injurious behaviors. No prior hospitalizations. No prior surgeries. Allergies: No known drug allergies. Social History: Lives with two of her brothers and mom. 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 Review of Systems: Tiny reports occasional headaches. They are not associated with nausea, vomiting, or visual changes. She wears glasses. She gets intermittent abdominal pain with no relieving oraggravating factors known. Denies vomiting. No polyuria, polydipsia,or nocturia. No galactorrhea. No muscle weakness. No joint pains. No hair or skin changes. No visual changes. Family History: Mother age 43, height 5 feet 3 inches. She is obese. She has hypertension, depression, obesity and retinitis pigmentosa, menarche at age 9. Father age 45, height 5 feet 9 inches. He is obese and is treated for hypertension. Siblings: Three brothers 15, 17 and 23 years old who all have mood disorder and some learning disabilities and one of them has Asperger's syndrome. Family history is negative for thyroid disease. Positive for type 2 diabetes on maternal side (maternal grandmother, maternal great grandfather, maternal grandfather), and maybe on paternal side. Father is not involved in the care of the patient. Family history is also positive for hypertension anddyslipidemia. Physical Exam: Height 157 cm (25th to 50th percentile). Weight 67.6 kilograms (90th to 97th percentile). BMI 27.4 (95th percentile). Blood pressure 116/66, heart rate 86. Tiny is an obese adolescent. She has flat affect and is in no acute distress. HEENT: Normocephalic with moist mucous membranes. No tongue fasciculations. No limitation of eye movements appreciated. No proptosis. No lid lag. No periorbital or conjunctival edema. Thyroid gland diffusely enlarged about 4 x 4 cm in the longest dimension of each lobe. No nodularity appreciated. No tenderness to palpation and no lymphadenopathy. Respiratory clear to auscultation bilaterally. Cardiovascular: S1, S2, no murmur. No tachycardia. No hyperdynamic precordium. There are +2 distal pulses. Gastrointestinal: Benign, no masses, no hepatosplenomegaly. Neurologic exam: No tremor, no hyperreflexia. Musculoskeletal: No bone deformity, no edema. Skin: Cold hands, normal turgor. Light pink, superficial abdominal striae present, multiple superficial scratches on the back of the neck and forearms. Sexual exam: No acne, no hirsutism. Axillary hair shaved. Pubic hair Juan Diego 5, breasts Juan Diego 5. Impression and Recommendations: Tiny has goiter and suppresed TSH with elevated free T4 with minimal signs and symptoms which may be associated with hyperthyroidism but are non-specific. She has no ophthalmopathy. The most common cause of hyperthyroidism in children and adolescents is Graves' disease which is characterized by excessive thyroid hormone production. Other conditions on differential diagnosis would be Yanira's toxicosis, autoimmune thyroid inflammation leading to destruction of thyroid tissue with release of hormone. This causes transient hyperthyroidism followed by hypothyroid phase. Ratcliff complicates the clinical presentation as it is known to cause thyroid abnormalities, most commonly hypothyroidism as it interferes with thyroid hormonerelease but there have been reports with Ratcliff- induced transient thyrotoxicosis which is proposed to happen due to direct damage of the thyroid follicles and follicular disruption contributing to the transient thyrotoxicosis .The frequency of Ratcliff-induced thyrotoxicosis is very low but it would be certainly a possibility. I will contact Dr. Khan (psychyatrisr) as he was planning to wean Tiny off Ratcliff. If the thyrotoxicosis would be Ratcliff-induced, it may resolve with Ratcliff withdrawal. In the meantime ordered repeated thyroid function tests with antithyroid antibodies as well as LFTsand CBC. A urine test was done today in the clinic and was negative. Tiny is scheduled to have 24-hour thyroid iodine uptake and scan done to help with the differentila diagnosis. In view of Tiny being asymptomatic today from the thyroid view, I did not start any medication, awaiting the results of the tests. I reviewed with the family signs and symptoms of hypo and hyperthyroidism and family is going to contact me if new symptoms appear or if the thyroid gland gets enlarged. I would like to see Tiny back in two weeks to discuss the blood test results as well as future management of the thyroid condition. Thank you for including me in the care of this patient. If you have further questions or concerns, please do not hesitate to contact me. Sincerely, Signed by Paradise Shannon MD 12/28/2007 14:07 Paradise Shannon MD D: - Paradise Shannon MD P - STACI Job ID: [id number] Doc ID: [id number] cc: MD Benson Stinson MD* documented in this encounter Plan of Treatment Not on file documented as of this encounter Visit Diagnoses Not on filedocumented in this encounter Care Teams Childcare Teacher Relationship Specialty Start Date End Date Manny Boles MD [address] [place] [phone] PCP - General 06/25/08 12/20/08 Sugar Lacy MD [address] [place] [phone] PCP - General 06/21/08 06/24/08 documented as of this encounter
--- OUTSIDE RECORDS SUMMARY | 2023-12-04 20:22 | XMS_ITS | Encounter Summary ---
Author Organization [facility] Address [address] [place] [address] Care Team Providers Care Plant Worker Name Role Phone Sugar Lacy MD Primary Care Provider Reason for Visit * Reason Onset Date Comments Labs Only 10/13/2010 Results 10/13/2010 Medication Management 10/13/2010 Encounter Details Date Type Department Care Team (Late st Contact Info) Description 10/13/2010 Telephone [facility] Pediatric Endocrinology - [facility] [address] [place] [address] Nancy Cleveland RN [address] [place] [address] Labs Only; Results; Medication Management Social History Tobacco Use Types Packs/Day Years Used Date Smoking Tobacco: Never Assessed Sex and Gender Information Value Date Recorded Sex Assigned at Not on file Gender Identity Female 03/02/2019 11:17 EST Sexual Orientation Not on file documented as of this encounter Miscellaneous Notes * Telephone Encounter - Nancy Cleveland RN - 10/13/2010 0915 EDT External lab results entered. Notation from Dr. Shannon 10/10/10: No methimazole dose change. 10/13/10 spoke with mom, Gricelda, about TFT results and methimazole. documented in this encounter Plan of Treatment Not on file documented as of this encounter Procedures Procedure Name Priority Date/Time Associated Diagnosis Comments TSH Routine 10/03/2010 8:11 EDT T4 FREE Routine 10/03/2010 8:11 EDT documented in this encounter Results * T4 FREE (10/03/2010 8:11 EDT) Free T4, External 0.86 [facility] Comment:0.78-2.19 Blood specimen (specimen) Historical Provider CHEMISTRY & BLOOD GAS ORDERABLES Performing Organization Address City/[facility] Hospital/ZIP Co de Phone Number [facility] * TSH (10/03/2010 8:11 EDT) TSH, External 0.660 [facility] Comment:0.47-4.68 Blood specimen (specimen) Historical Provider CHEMISTRY & BLOOD GAS ORDERABLES [facility] documented in this encounter Visit Diagnoses Not on filedocumented in this encounter Care Teams Plant Worker Relationship Specialty Start Date End Date Sugar Lacy MD [address] [place] [phone] PCP - General 02/27/10 01/26/13 documented as of this encounter
--- OUTSIDE RECORDS SUMMARY | 2023-12-04 20:22 | XMS_ITS | Encounter Summary ---
Author Organization [facility] Address [address] [place] [address] Care Team Providers Care Assessment Services Manager Name Role Phone Manny Boles MD Primary Care Provider [phone] Encounter Details Date Type Department Care Team (Late st Contact Info) Description 12/19/2009 Orders Only [facility] Pediatric Endocrinology - Main [place] [address] [place] [address] Paradise Reyes MD [address] [place] [phone] Unspecified thyroiditis (Primary Dx) Social History Tobacco Use Types Packs/Day Years Used Date Smoking Tobacco: Never Assessed Sex and Gender Information Value Date Recorded Sex Assigned at Not on file Gender Identity Female 03/02/2019 11:17 EST Sexual Orientation Not on file documented as of this encounter Plan of Treatment Not on file documented as of this encounter Visit Diagnoses Diagnosis Thyroiditis, unspecified- Primary documented in this encounter Care Teams Assessment Services Manager Relationship Specialty Start Date End Date Manny Boles MD [address] [place] [phone] PCP - General 12/02/09 02/26/10 documented as of this encounter
--- OUTSIDE RECORDS SUMMARY | 2023-12-04 20:22 | XMS_ITS | Encounter Summary ---
Author Organization [facility] Address [address] [place] [address] Care Team Providers Care Environmental Engineering Assistant Name Role Phone Sugar Lacy MD Primary Care Provider Reason for Visit * Reason Onset Date Comments Labs Only 10/13/2010 Encounter Details Date Type Department Care Team (Late st Contact Info) Description 10/13/2010 Telephone [facility] Pediatric Endocrinology - Main [place] [address] [place] [address] Nancy Cleveland RN [address] [place] [address] Labs Only Social History Tobacco Use Types Packs/Day Years Used Date Smoking Tobacco: Never Assessed Sex and Gender Information Value Date Recorded Sex Assigned at Not on file Gender Identity Female 03/02/2019 11:17 EST Sexual Orientation Not on file documented as of this encounter Miscellaneous Notes * Telephone Encounter - Nancy Clevelnad RN - 10/13/2010 0916 EDT External lab results entered. documented in this encounter Plan of Treatment Not on file documented as of this encounter Procedures Procedure Name Priority Date/Time Associated Diagnosis Comments T3, TOTAL Routine 10/03/2010 8:11 EDT documented in this encounter Results * T3, TOTAL (10/03/2010 8:11 EDT) T3 TOTAL, External [address] [facility] Comment:85-188 Blood specimen (specimen) Historical Provider CHEMISTRY & BLOOD GAS ORDERABLES [facility] documented in this encounter Visit Diagnoses Not on filedocumented in this encounter Care Teams Environmental Engineering Assistant Relationship Specialty Start Date End Date Sugar Lacy MD [address] [place] [phone] PCP - General 02/27/10 01/26/13 documented as of this encounter
--- OUTSIDE RECORDS SUMMARY | 2023-12-04 20:22 | XMS_ITS | Encounter Summary ---
Author Organization [facility] Address [address] [place] [address] Care Team Providers Care Physician General Internal Medicine Name Role Phone Sugar Lacy MD Primary Care Provider [phone] Reason for Visit * Reason Onset Date Comments Results 08/22/2010 Medication Management 08/22/2010 Orders (Non Pre-visit) 08/22/2010 Encounter Details Date Type Department Care Team (Late st Contact Info) Description 08/22/[address] [facility] Pediatric Endocrinology - Main [place] [address] [place] [address] Nancy Levy, RN [address] [place] [address] Results; Medication Management; Orders (Non Pre-visit) Social History Tobacco Use Types Packs/Day Years Used Date Smoking Tobacco: Never Assessed Sex and Gender Information Value Date Recorded Sex Assigned at Not on file Gender Identity Female 03/02/2019 11:17 EST Sexual Orientation Not on file documented as of this encounter Miscellaneous Notes * Telephone Encounter - Nancy Levy RN - 08/22/2010 1151 EDT Message copied by NANCY LEVY on WedAug 22, 2010 1151 ------ Message from: JR LEE Created: WedAug 21, 2010 1237 Continue current methimazole dose. Needs repeat TSH, T4, T3 in 6 weeks locally. I forgot to give them paperwork. Pls. mail it home. Left message on phone for mom, Gricelda, about lab results and methimazole. Req for labs to be mailed and done in 6 weeks at [facility]. documented in this encounter Plan of Treatment Not on file documented as of this encounter Visit Diagnoses Diagnosis Thyroiditis, autoimmune- Primary Chronic lymphocytic thyroiditis documented in this encounter Care Teams Physician General Internal Medicine Relationship Specialty Start Date End Date Sugar Lacy MD [address] [place] [phone] PCP - General 02/27/10 01/26/13 documented as of this encounter
--- OUTSIDE RECORDS SUMMARY | 2023-12-04 20:22 | XMS_ITS | Encounter Summary ---
Author Organization [facility] Address [address] [place] [address] Care Team Providers Care Infection Control Coordinator Name Role Phone Sugar Cabrera MD Primary Care Provider Reason for Visit * Reason Comments Thyroid Problem Obesity Encounter Details Date Type Department Care Team (Latest Contact Info) Description 12/11/2010 8:15 EDT Office Visit [facility] Pediatric Endocrinology - Main [place] [address] [place] [address] Paradise Reyes MD [address] [address] Thyroiditis, autoimmune; Obesity; Acanthosis nigricans Social History Tobacco Use Types Packs/Day Years Used Date Smoking Tobacco: Never Assessed Sex and Gender Information Value Date Recorded Sex Assigned at Not on file Gender Identity Female 03/02/2019 11:17 EST Sexual Orientation Not on file documented as of this encounter Last Filed Vital Signs Vital Sign Reading Time Taken Comments Blood Pressure 115/66 12/11/2010812 EDT Pulse 74 12/11/2010812 EDT Temperature - - Respiratory Rate - - Oxygen Saturation - - Inhaled Oxygen Concentration - - Weight 76.9 kg (169 lb 8.5 oz) 12/11/2010812 E DT Height 158.3 cm (5' 2.34) 12/11/2010812 EDT Body Mass Index 30.67 12/11/2010 0813 EDT Body Mass Index Percentile 95.53% 12/11/2010 081 3 EDT Growth Chart: CDC (Girls, 2- 20 Years) documented in this encounter Progress Notes * Paradise Shannon MD - 12/11/2010 6559 EDT Pediatric Endocrinology Follow Up Patient Identification: 15 y.o. 2 m.o. 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 She initially presented with high FT4 and suppressed TSH (FT4 3.8, TSH <0.02) 12/06 while on [place] which was subsequently discontinued. Her 123 Iodine [...] biochemically (FT4 2.2), after treatment options were discussed, methimazole was started on 03/2010. She has been tolerating antithyroid medication well, no reported side effects. Tiny was diagnosed with vitamin D insufficient, supplementing was recommended, not taken inconsistently. Interval illness: none Tiny in in the 12th grade, has no after school activities. She wants to go to in the future, has no plans for next year after high school graduation. Tiny is off OCPs, her periods have been regular, LMP last months. She has appointment for Mirenaplacements next week. She had no difficulties with asthma, no need for inhaler use. Some interval weight loss, has been eating less and was more active over the summer. Positive for: Headaches: twice a week, forehead, anytime during the day, not interfering with sleep, no nausea oremesis, no visual changes, has to be medicated on and off Emesis: lately after eating on and off Polyuria, polydipsia, no nocturia, no enuresis Temperature intolerance: heat and cold, on and off Hair loss: no bald spots, no other body hair loss, no skin changes Acne:worsening lately, no hirsutism Negative for: neck swelling, voice hoarseness, dysphagia, fatigue, skin change, diarrhea, constipation, tremor, palpitations, difficulty concentrating, diffuculty sleeping, bone pain, interval bone fractures and irregular menses, pain with eye movement, visual changes Review of Systems: A ten point review of systems was performed. Pertinent items are noted in the HPI, all others are negative. Problem List Patient Active Problem List Diagnoses ??? Thyroiditis, autoimmune ??? Obesity ??? Acanthosis nigricans ??? Vitamin D deficiency ??? Irregular periods/menstrual cycles Medications: Current Outpatient Prescriptions Medication Sig Dispense Refill ??? sertraline (ZOLOFT) 100 mg tablet Take 50 mg by mouth daily. 1/2 tab daily ??? ALBUTEROL INHL Inhale as directed as needed. 2 puffs as needed ??? methimazole (TAPAZOLE) 10 mg tablet Take 15 mg by mouth 2 times daily. 1.5 tabs in the morning and afternoon. 30 mg total. ??? valACYclovir (VALTREX) 500 mg tablet Take 500 mg by mouth daily. Indications: HERPES LABIALIS ??? loratadine (CLARITIN) 10 mg tablet Take 10 mg by mouth daily. Adherence with endocrine medications: inconsitent over the summer, since the school started taken as prescribed Allergies: Lorabid Social History: Social History Physical Exam: Vitals: BP 115/66 Pulse 74 Ht 158.3 cm (62.34) Wt 76.9 kg (169 lb 8.5 oz) BMI 30.67 kg/m2 67.1% systolic and 51.7% diastolic of BP percentile by age, sex, and height. Height: 1.583 m (5' 2.34) (24.04%) Weight: 76.9 kg (169 lb 8.5 oz) (93.67%) Body mass index is 30.67 kg/(m^2). 95.86% of growth percentile based on BMI-for-age. General Appearance: comfortable, well-hydrated, in no apparent distress, well- appearing and appearsstated age, obese Dysmorphisms: none appreciated Head: normocephalic ENT: moist mucous membranes and oropharnyx clear Eyes: EOMI and JASON Thyroid: normal size , homogenous, no palpable nodularity and nontender Lymphatic: no palpable lymphadenopathy of neck Respiratory: [...] Sexual Development: deferred Data Review/Interval Investigations: Date: 08/21/10 TSH 0.64, free T4 1.1 and total T3 107 Date: 10/03/10 TSH 0.66, free T4 0.86 and total T3 102 Date: 12/11/10 TSH 1.18, free T4 1.1 and total T3 121 A1C 5.1%. ALT 39, AST 34, CBC with diff. Normal TSI and TBII pending Assessment: 15 y.o. 2 m.o. 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 No goiter on exam. On antithyroid medication with reported improved compliance over the last month. Clinically mixed symptoms possibly suggestive of hypo and hyperthyroidism, biochemically euthyroid today. Obesity, acanthosis nigricans: interval weight loss Polyuria, polydipsia with normal A1C. Vitamin D insufficiency, not taking supplementation as recommended. . Suggestions/Plan: Investigations: TSH, free T4, total T4, total T3 and LFTs and CBC with diff. and A1C and ABs sent today. Topics reviewed today: symptoms and signs of hypothyroidism and hyperthyroidism likelikhood of spontaneous remission in Grave's disease need for immediate CBC with differential for all febrile illnesses or sore throats to rule out agranulocytosis bone health, negative calcium balance with hyperthyroidism and vitamin D supplementation Medications prescribed: same dose Additional recommendations: repeat thyroid function tests locally in 6 weeks (TSH, T4, T3, free T4) CBC with differential for all febrile illnesses or sore throats to rule out agranulocytosis restart vitamin D, 2000 IU/day Disposition: follow up in Endocrine clinic in 4 months I spent a total of 30 minutes in face to face time with this patient and 20 minutes of that time was spent in counseling and coordination of care as described in the progress note. Paradise Shannon MD 12/11/2010 17:49 documented in this encounter Plan of Treatment Not on file documented as of this encounter Results * LIVER FUNCTION TESTS (12/11/2010 9:32 EDT) Albumin 4.1 3.0 - 5.5 g/dl [facility] Total Protein 7.6 6.3 - 8.6 g/dl [facility] Total Alkaline Phosphatase 87 50 - 130 U/L [facility] ALT 39 0 - 45 U/L [facility] AST 34 15 - 46 U/L [facility] Unconjugated Bilirubin 0.2 0.1 - 1.1 mg/dl [facility] Conjugated Bilirubin 0.0 0.0 - 0.3 mg/dl [facility] Bilirubin, Total <0.5 0.0 - 1.4 mg/dl [facility] Blood specimen (specimen) 12/11/2010 9:32 EDT 12/11/2010 9:55 EDT Paradise Reyes MD CHEMISTRY & BLOOD GA S ORDERABLES [facility] [address] [place] [address] * HEMAGRAM AND DIFFERENTIAL (12/11/2010 9:32 EDT) [...] [facility] Type of Diff: Automated [facility] Blood specimen (specimen) 12/11/2010 9:32 EDT 12/11/2010 9:55 EDT Paradise Reyes MD PACKAGES & DNA PROBE ORDERABLES Performing Organization Address [facility] de Phone Number [facility] [address] [place] [address] * (ABNORMAL) GLUCOSE, SERUM (12/11/2010 9:32 EDT) Pathologist [facility] Glucose, Serum 57(L) 70 - 100 mg/dl [facility] Blood specimen (specimen) 12/11/2010 9:32 EDT 12/11/2010 9:55 EDT Paradise Reyes MD CHEMISTRY & BLOOD GA S ORDERABLES Performing Organization Address [facility] de Phone Number [facility] [address] [place] [address] * HEMOGLOBIN A1C (12/11/2010 9:32 EDT) Hemoglobin A1C 5.1 % [facility] Comment: Reference Range: <5.7% Normal 5.7-6.4% Increased risk for diabetes =>6.5% Diagnostic for diabetes (if confirmed) The A1c goal for non adults in general is <7%. The A1c goal for selected patients may be significantly lower than 7% if this can be achieved without significant hypoglycemia or other adverse effects of treatment. Est Avg Glucose 100 mg/dl [facility] Comment: eAG represents the A1c result expressed as average glucose in mg/dl. Blood specimen (specimen) 12/11/2010 9:32 EDT 12/11/2010 9:55 EDT Paradise Reyes MD CHEMISTRY & BLOOD GA S ORDERABLES Performing Organization Address [facility] Co de Phone Number [facility] [address] [place] [address] * THYROID-STIMULATING IMMUNOGLOBULIN (TSI), SERUM (12/11/2010 9:32 EDT) Thyroid Stimulating Immunoglobulin 1.3 <=1.3 TSI index [facility] Comment: Performed or Referred by: [facility] and Path, [address] [place] [id number], Lab Dir: Surinder Mackay III, MD Blood specimen (specimen) 12/11/2010 9:32 EDT 12/11/2010 9:55 EDT Paradise Reyes MD CHEMISTRY & BLOOD GA S ORDERABLES Performing Organization Address [facility] de Phone Number [facility] [address] [place] [address] * THYROTROPIN RECEPTOR ANTIBODY (12/11/2010 9:32 EDT) Thyrotropin Receptor Ab 1.21 0.00 - 1.75 IU/L [facility] Comment: (Note) At a decision limit of 1.75 IU/L, this assay has 97% sensitivity and 99% specificity for detection of Graves' disease. In healthy individuals and in patients with thyroid disease without diagnosis of Graves' disease, the upper limit of anti-TSHR values are 1.22 IU/L and 1.58 IU/L, respectively (97.5th percentiles). Performed by: [facility] [place] , [address] [place], [place] [address], Lab Dir: ??Surinder Mackay III, M.D. Blood specimen (specimen) 12/11/2010 9:32 EDT 12/11/2010 9:55 EDT Paradise Reyes MD CHEMISTRY & BLOOD GA S ORDERABLES Performing Organization Address [facility] Phone Number [facility] [address] [place] [address] * T3, TOTAL (12/11/2010 9:32 EDT) T3, Total 121 85 - 188 ng/dL [facility] Blood specimen (specimen) 12/11/2010 9:32 EDT 12/11/2010 9:55 EDT Paradise Reyes MD CHEMISTRY & BLOOD GA S ORDERABLES Performing Organization Address [facility] Phone Number [facility] [address] [place] [address] * T4 FREE (12/11/2010 9:32 EDT) Free T4 1.1 0.8 - 1.5 ng/dL [facility] Blood specimen (specimen) 12/11/2010 9:32 EDT 12/11/2010 9:55 EDT Paradise Reyes MD CHEMISTRY & BLOOD GA S ORDERABLES Performing Organization Address [facility] Phone Number [facility] [address] [place] [address] * TSH (12/11/2010 9:32 EDT) TSH 1.18 0.35 - 5.00 uIU/ml [facility] Blood specimen (specimen) 12/11/2010 9:32 EDT 12/11/2010 9:55 EDT Paradise Reyes MD CHEMISTRY & BLOOD GA S ORDERABLES Performing Organization Address [facility] Phone Number [facility] [address] [place] [address] documented in this encounter Visit Diagnoses Diagnosis Thyroiditis, autoimmune Chronic lymphocytic thyroiditis Obesity Obesity, unspecified Acanthosis nigricans Acquired acanthosis nigricans documented in this encounter Discontinued Medications Medication Sig Discontinue Reason Start Date End Da te atomoxetine (STRATTERA) 100 mg capsule Take 100 mg by mouth daily. 12/11/2010 ETHINYL ESTRADIOL/DROSPIRENONE (ZACH 28 ORAL) Take by mouth daily. 05/15/2010 12/11/2010 fluoxetine (PROZAC) 10 mg capsule Take 10 mg by mouth daily. 12/11/2010 documented as of this encounter Historical Medications * This list may reflect changes made after this encounter. Medication Sig Dispensed Refills Start Date End Date sertraline (ZOLOFT) 100 mg tablet Take 50 mg by mouth daily. 1/2 tab daily 08/25/2011 added in this encounter Care Teams Infection Control Coordinator Relationship Specialty Start Date End Date Sugar Cabrera MD [address] [place] [id number] PCP - General 02/27/10 01/26/13 documented as of this encounter
--- OUTSIDE RECORDS SUMMARY | 2023-12-04 20:22 | XMS_ITS | Encounter Summary ---
Author Organization [facility] Address [address] [place] [address] Care Team Providers Care First Sampler Name Role Phone Sugar Cabrera MD Primary Care Provider [phone] Reason for Visit * Reason Comments Graves' Disease Encounter Details Date Type Department Care Team (Latest Contact Info) Description 08/21/2010 8:15 EDT Office Visit [facility] Pediatric Endocrinology - Main [place] [address] [place], [place] [address] Paradise Reyes MD [address] [address] Thyroiditis, autoimmune; Obesity; Acanthosis nigricans; Vitamin D deficiency Social History Tobacco Use Types Packs/Day Years Used Date Smoking Tobacco: Never Assessed Sex and Gender Information Value Date Recorded Sex Assigned at Not on file Gender Identity Female 03/02/2019 11:17 EST Sexual Orientation Not on file documented as of this encounter Last Filed Vital Signs Vital Sign Reading Time Taken Comments Blood Pressure 110/68 08/21/2010 0812 EDT Pulse 66 08/21/2010 08 EDT Temperature - - Respiratory Rate - - Oxygen Saturation - - Inhaled Oxygen Concentration - - Weight 78.7 kg (173 lb 8 oz) 08/21/2010 0812 EDT Height 158.4 cm (5' 2.36) 08/21/2010 08 EDT Body Mass Index 31.37 08/21/2010 0812 EDT Body Mass Index Percentile 96.06% 08/21/2010 081 2 EDT Growth Chart: CDC (Girls, 2- 20 Years) documented in this encounter Progress Notes * Paradise Shannon MD - 08/21/2010 0910 EDT Pediatric Endocrinology Follow Up Patient Identification: 14 y.o. 10 m.o. 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 She initially presented with high FT4 and suppressed TSH (FT4 3.8, TSH <0.02) 12/06 while on [place] which was subsequently discontinued. Her 123 Iodine uptake was low (1.5%, nl.10-30%), she had negative TSHr-Ab, TSI, anti TPO, and positive anti TG Ab. Thyroid gland was diffusely enlarged, she had on off complaint of discomfort with swallowing, has had mild symptoms of hyperthyroidism, no beta blockers were started. 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 TFTs were monitored with somewhat fluctuating results: euthyroid, subclinical hyperthyroid to clear hyperthyroidism with undetectable TSH. On repeated antibodies testing her TSHr and TSI were positive; she was hyperthyroid at that time clinically and biochemically (FT4 2.2), after treatment options were discussed, methimazole was started on 03/2010 with a positive clinical response, TSH still bellow the reference range. She has been tolerating antithyroid medication well, no reported side effects. Tiny was diagnosed with vitamin D insufficient, supplementing was recommended, not taken inconsistently. She has no organized sports, has been walking more around the neighborhood, on and off paysmore attention to her meal/food choices. She lost some weight from the last visit. Tiny has not been taking OCPs, her periods seem more regular in the past. She has no hirsutism or difficulties with acne. Interval illness: URI Positive for: nothing reported Negative for: neck swelling, voice hoarseness, dysphagia, fatigue, appetite change, temperature intolerance, skinchange, diarrhea, constipation, tremor, palpitations, difficulty concentrating, diffuculty sleeping, shortness of breath and bone pain, pain with eye movement, visual changes Review of Systems: A ten point review of systems was performed. Pertinent items are noted in the HPI, all others are negative. Problem List Patient Active Problem List Diagnoses Code ??? Thyroiditis, autoimmune 245.2AH ??? Obesity 278.00M ??? Acanthosis nigricans 701.2A ??? Vitamin D deficiency 268.9G ??? Irregular periods/menstrual cycles 626.4AH Medications: Current outpatient prescriptions Medication Sig Dispense Refill ??? ALBUTEROL INHL Inhale as directed as needed. 2 puffs as needed ??? ETHINYL ESTRADIOL/DROSPIRENONE (ZACH 28 ORAL) Take by mouth daily. ??? methimazole (TAPAZOLE) 10 mg tablet Take 10 mg by mouth 2 times daily. 1.5 tabs in the morning and afternoon. 30 mg total. ??? valACYclovir (VALTREX) 500 mg tablet Take 500 mg by mouth daily. Indications: HERPES LABIALIS ??? atomoxetine (STRATTERA) 100 mg capsule Take 100 mg by mouth daily. ??? fluoxetine (PROZAC) 10 mg capsule Take 10 mg by mouth daily. ??? loratadine (CLARITIN) 10 mg tablet Take 10 mg by mouth daily. Adherence with endocrine medications: reportedly excellent Allergies: Review of patient's allergies indicates no known allergies. Social History: Social History Physical Exam: Vitals: BP 110/68 Pulse 66 Ht 158.4 cm (62.36) Wt 78.7 kg (173 lb 8 oz) BMI 31.37 kg/m2 LMP 08/07/2010 48.5% systolic and 58.7% diastolic of BP percentile by age, sex, and height. Height: 158.4 cm (62.36) (24.42%) Weight: 78.7 kg (173 lb 8 oz) (94.73%) Body mass index is 31.37 kg/(m^2). 96.58% of growth percentile based on BMI-for-age. General [...] Sexual Development: deferred Data Review/Interval Investigations: Date: 04/15/10 TSH 1.01, free T4 0.59 and total T3 98 Date: 05/15/10 TSH 0.26, free T4 1.2, total T3 128 and total T4 8.8 Date: 06/27/10 TSH 0.08, free T4 0.88 and total T3 112 Assessment: 14 y.o. 10 m.o. 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 No goiter on exam. On antithyroid medication with reported excellent compliance. Clinically euthyroid on exam today. Obesity, acanthosis nigricans: minimal interval weight loss. Vitamin D insufficiency, not taking supplementation as recommended. . Suggestions/Plan: Investigations: TSH, free T4, total T4, total T3 and LFTs and CBC with diff. Topics reviewed today: symptoms and signs of hypothyroidism and hyperthyroidism likelikhood of spontaneous remission in Grave's disease need for immediate CBC with differential for all febrile illnesses or sore throats to rule out agranulocytosis bone health, negastive calcoim balance with hyperthyroidism and vitamin D supplementation Medications prescribed: same dose pending results Additional recommendations: repeat thyroid function tests locally in 6 weeks (TSH, T4, T3, free T4) CBC with differential for all febrile illnesses or sore throats to rule out agranulocytosis restart vitamin D, 2000 IU/day Disposition: follow up in Endocrine clinic in 3 months I spent a total of 30 minutes in face to face time with this patient and 20 minutes of that time was spent in counseling and coordination of care as described in the progress note. Paradise Shannon MD 08/21/2010 8:47 documented in this encounter Plan of Treatment Not on file documented as of this encounter Results * HEMAGRAM AND DIFFERENTIAL (08/21/2010 9:12 EDT) WBC 7.10 4.6 - 11.2 K/cmm [facility] RBC 4.64 4.10 - 5.10 M/cmm [facility] Hemoglobin 13.8 12.0 - 16.0 gm/dl [facility] HCT 41.0 36.0 - 46.0 % [facility] MCV 88 78 - 102 fl [facility] MCH 29.7 pg [facility] MCHC 33.6 gm/dl [facility] PLT 307 156 - 312 K/cmm [facility] RDW-CV 13.2 % [facility] % Neutrophils 63.1 % [facility] % Lymphocytes 27.0 % [facility] % Monocytes 7.2 % [facility] % Eosinophils 1.9 % [facility] % Basophils 0.8 % [facility] ABS Neutrophils 4.48 K/cmm [facility] ABS Lymphs 1.92 K/cmm [facility] ABS Monocytes 0.51 K/cmm [facility] ABS Eosinophils 0.14 K/cmm [facility] ABS Basophils 0.06 K/cmm [facility] Type of Diff: Automated [facility] Blood specimen (specimen) 08/21/2010 9:12 EDT 08/21/2010 9:28 EDT Paradise Reyes MD PACKAGES & DNA PROBE ORDERABLES [facility] [address] [place] [address] * LIVER FUNCTION TESTS (08/21/2010 9:12 EDT) Albumin 4.1 3.0 - 5.5 g/dl [facility] Total Protein 6.8 6.3 - 8.6 g/dl [facility] Total Alkaline Phosphatase 78 50 - 130 U/L [facility] ALT 26 0 - 45 U/L [facility] AST 18 15 - 46 U/L [facility] Unconjugated Bilirubin 0.3 0.1 - 1.1 mg/dl [facility] Conjugated Bilirubin 0.0 0.0 - 0.3 mg/dl [facility] Bilirubin, Total <0.5 0.0 - 1.4 mg/dl [facility] Blood specimen (specimen) 08/21/2010 9:12 EDT 08/21/2010 9:28 EDT Paradise Reyes MD CHEMISTRY & BLOOD GA S ORDERABLES Performing Organization Address [facility] Co de Phone Number [facility] [address] [place] [address] * T3, TOTAL (08/21/2010 9:12 EDT) T3, Total 107 85 - 188 ng/dL [facility] Blood specimen (specimen) 08/21/2010 9:12 EDT 08/21/2010 9:28 EDT Paradise Reyes MD CHEMISTRY & BLOOD GA S ORDERABLES Performing Organization Address [facility] Co de Phone Number [facility] [address] [place] [address] * T4 (08/21/2010 9:12 EDT) T4, Total 8.3 5.1 - 9.6 ug/dL [facility] Blood specimen (specimen) 08/21/2010 9:12 EDT 08/21/2010 9:28 EDT Paradise Reyes MD CHEMISTRY & BLOOD GA S ORDERABLES Performing Organization Address [facility] Co de Phone Number [facility] [address] [place] [address] * T4 FREE (08/21/2010 9:12 EDT) Free T4 1.1 0.8 - 1.5 ng/dL [facility] Blood specimen (specimen) 08/21/2010 9:12 EDT 08/21/2010 9:28 EDT Paradise Reyes MD CHEMISTRY & BLOOD GA S ORDERABLES Performing Organization Address [facility] Co de Phone Number [facility] [address] [place] [address] * TSH (08/21/2010 9:12 EDT) TSH 0.64 0.35 - 5.00 uIU/ml [facility] Blood specimen (specimen) 08/21/2010 9:12 EDT 08/21/2010 9:28 EDT Paradise Reyes MD CHEMISTRY & BLOOD GA S ORDERABLES Performing Organization Address [facility] de Phone Number [facility] [address] [place] [address] documented in this encounter Visit Diagnoses Diagnosis Thyroiditis, autoimmune Chronic lymphocytic thyroiditis Obesity Obesity, unspecified Acanthosis nigricans Acquired acanthosis nigricans Vitamin D deficiency Unspecified vitamin D deficiency documented in this encounter Care Teams First Sampler Relationship Specialty Start Date End Date Sugar Cabrera MD [address] [place] [id number] PCP - General 02/27/10 01/26/13 documented as of this encounter
--- OUTSIDE RECORDS SUMMARY | 2023-12-04 20:22 | XMS_ITS | Encounter Summary ---
Author Organization [facility] Address [address] [place] [address] Care Team Providers Care Area Sales Manager Name Role Phone Sugar Lacy MD Primary Care Provider Encounter Details Date Type Department Care Team (Late st Contact Info) Description 05/15/2010 Phlebotomy Only [facility] [place] [address] [place] [address] Heart Surgeon, Outpatient Thyroiditis, autoimmune Social History Tobacco Use [...] Date/Time Associated Diagnosis Comments T3, TOTAL Routine 05/15/2010 8:25 EDT Thyroiditis, autoimmune TSH Routine 05/15/2010 8:25 EDT Thyroiditis, autoimmune T4 FREE Routine 05/15/2010 8:25 EDT Thyroiditis, autoimmune T4 Routine 05/15/2010 8:25 EDT Thyroiditis, autoimmune documented in this encounter Results * T3, TOTAL (05/15/2010 8:25 EDT) T3, Total 128 85 - 188 ng/dL [facility] Blood specimen (specimen) 05/15/2010 8:25 EDT 05/15/2010 8:29 EDT Paradise Reyes MD CHEMISTRY & BLOOD GA S ORDERABLES Performing Organization Address [facility] de Phone Number [facility] [address] [place] [address] * T4 (05/15/2010 8:25 EDT) T4, Total 8.8 5.1 - 9.6 ug/dL [facility] Blood specimen (specimen) 05/15/2010 8:25 EDT 05/15/2010 8:29 EDT Paradise Reyes MD CHEMISTRY & BLOOD GA S ORDERABLES Performing Organization Address [facility] Phone Number [facility] [address] [place] [address] * T4 FREE (05/15/2010 8:25 EDT) Free T4 1.2 0.8 - 1.5 ng/dL [facility] Blood specimen (specimen) 05/15/2010 8:25 EDT 05/15/2010 8:29 EDT Paradise Reyes MD CHEMISTRY & BLOOD GA S ORDERABLES Performing Organization Address [facility] Phone Number [facility] [address] [place] [address] * (ABNORMAL) TSH (05/15/2010 8:25 EDT) TSH 0.26(L) 0.35 - 5.00 uIU/ml [facility] Blood specimen (specimen) 05/15/2010 8:25 EDT 05/15/2010 8:29 EDT Paradise Reyes MD CHEMISTRY & BLOOD GA S ORDERABLES Performing Organization Address [facility] Co de Phone Number [facility] [address] [place] [address] documented in this encounter Visit Diagnoses Diagnosis Thyroiditis, autoimmune Chronic lymphocytic thyroiditis documented in this encounter Care Teams Area Sales Manager Relationship Specialty Start Date End Date Sugar Lacy MD [address] [place] [phone] PCP - General 02/27/10 01/26/13 documented as of this encounter
--- OUTSIDE RECORDS SUMMARY | 2023-12-04 20:22 | XMS_ITS | Encounter Summary ---
Author Organization [facility] Address [address] [place] [address] Care Team Providers Care New Car Make Ready Mechanic Name Role Phone Sugar Lacy MD Primary Care Provider Encounter Details Date Type Department Care Team (Latest Contact Info) Description 11/28/2009 12:04 EDT - 11/28/2009 23:59 EDT Hospital Encounter [facility] [address] [place] [address] Paradise Reyes MD [address] [phone] Discharge Disposition: Home or Self Care Social History Tobacco Use Types Packs/Day Years Used Date Smoking Tobacco: Never Assessed Sex and Gender Information Value Date Recorded Sex Assigned at Not on file Gender Identity Female 03/02/2019 11:17 EST Sexual Orientation Not on file documented as of this encounter Discharge Disposition Disposition Code Departure Means Destination Home or Self Prison documented in this encounter Plan of Treatment Not on file documented as of this encounter Visit Diagnoses Not on filedocumented in this encounter Care Teams New Car Make Ready Mechanic Relationship Specialty Start Date End Date Suagr Lacy MD [address] [place] [phone] PCP - General 06/24/09 12/01/09 documented as of this encounter
--- OUTSIDE RECORDS SUMMARY | 2023-12-04 20:22 | XMS_ITS | Encounter Summary ---
Author Organization [facility] Address [address] [place] [address] Care Team Providers Care Metal Fabricating Inspector Name Role Phone Manny Boles MD Primary Care Provider [phone] Encounter Details Date Type Department Care Team (Latest Contact Info) Description 12/21/2008 11:03 EDT - 12/21/2008 23:59 EDT Hospital Encounter [facility] [address] [place] [address] Paradise Reyes MD [address] [phone] Discharge Disposition: Home or Self Care Social History Tobacco Use Types Packs/Day Years Used Date Smoking Tobacco: Never Assessed Sex and Gender Information Value Date Recorded Sex Assigned at Not on file Gender Identity Female 03/02/2019 11:17 EST Sexual Orientation Not on file documented as of this encounter Discharge Disposition Disposition Code Departure Means Destination Home or Self [facility] documented in this encounter Plan of Treatment Not on file documented as of this encounter Procedures Procedure Name Priority Date/Time Associated Diagnosis Comments T3, TOTAL Routine 12/21/2008 11:15 EDT TSH Routine 12/21/2008 11:15 EDT T4 FREE Routine 12/21/2008 11:15 EDT documented in this encounter Results * T3, TOTAL (12/21/2008 11:15 EDT) T3, Total 180 85 - 188 ng/dL [facility] Blood specimen (specimen) 12/21/2008 11:15 EDT 12/21/2008 11:18 EDT Paradise Reyes MD CHEMISTRY & BLOOD GA S ORDERABLES Performing Organization Address [facility] Co de Phone Number [facility] [address] [place] [address] * T4 FREE (12/21/2008 11:15 EDT) Free T4 0.9 0.8 - 1.5 ng/dL [facility] Blood specimen (specimen) 12/21/2008 11:15 EDT 12/21/2008 11:18 EDT Paradise Reyes MD CHEMISTRY & BLOOD GA S ORDERABLES Performing Organization Address [facility] de Phone Number [facility] [address] [place] [address] * TSH (12/21/2008 11:15 EDT) TSH 0.91 0.35 - 5.00 uIU/ml [facility] Blood specimen (specimen) 12/21/2008 11:15 EDT 12/21/2008 11:18 EDT Paradise Reyes MD CHEMISTRY & BLOOD GA S ORDERABLES Performing Organization Address [facility] de Phone Number [facility] [address] [place] [address] documented in this encounter Visit Diagnoses Not on filedocumented in this encounter Care Teams Metal Fabricating Inspector Relationship Specialty Start Date End Date Manny Boles MD [address] [place] [phone] PCP - General 12/21/08 06/23/09 documented as of this encounter
--- OUTSIDE RECORDS SUMMARY | 2023-12-04 20:22 | XMS_ITS | Encounter Summary ---
Author Organization [facility] Address [address] [place] [address] Care Team Providers Care Knitting Machine Fixer Head Name Role Phone Sugar Lacy MD Primary Care Provider Reason for Visit * Reason Onset Date Comments New/Evolving Symptoms 03/28/2010 Encounter Details Date Type Department Care Team (Late st Contact Info) Description 03/28/2010 Telephone [facility] Pediatric Endocrinology - Main [place] [address] [place] [address] Nancy Cleveland RN [address] [place] [address] New/Evolving Symptoms Social History Tobacco Use Types Packs/Day Years Used Date Smoking Tobacco: Never Assessed Sex and Gender Information Value Date Recorded Sex Assigned at Not on file Gender Identity Female 03/02/2019 11:17 EST Sexual Orientation Not on file documented as of this encounter Miscellaneous Notes * Telephone Encounter - Nancy Cleveland RN - 03/28/2010 1157 EST Mom called to report that Tiny was c/o feeling like something stuck in her throat, chest pains at base of throat, some trouble breathing. Started methimazole 20 mg BID this week. I spoke to Dr. Daniels, then paged Dr. Shannon about her patient. Dr. Shannon advised if trouble breathing should go to ER. Called mom back, she said Tiny was feeling better, sat up and had something to drink, breathing easier and no pain. They stated there was no rash, no neck or tongue swelling. Tiny said dry skin is worse, not better though, after starting med. Advised to stop methimazole, Dr. Shannon will callthem later today. documented in this encounter Plan of Treatment Not on file documented as of this encounter Visit Diagnoses Not on filedocumented in this encounter Care Teams Knitting Machine Fixer Head Relationship Specialty Start Date End Date Sugar Lacy MD [address] [place] [phone] PCP - General 02/27/10 01/26/13 documented as of this encounter
--- OUTSIDE RECORDS SUMMARY | 2023-12-04 20:22 | XMS_ITS | Encounter Summary ---
Author Organization [facility] Address [address] [place] [address] Care Team Providers Care Radiation Physicist Name Role Phone Sugar Lacy MD Primary Care Provider [phone] Encounter Details Date Type Department Care Team (Late st Contact Info) Description 03/10/2010 Abstract [facility] Pediatric Endocrinology - [facility] [address] [place], [place] [id number] Paradise Reyes MD [address] [place] [phone] Social History Tobacco Use Types Packs/Day Years Used Date Smoking Tobacco: Never Assessed Sex and Gender Information Value Date Recorded Sex Assigned at Not on file Gender Identity Female 03/02/2019 11:17 EST Sexual Orientation Not on file documented as of this encounter Plan of Treatment Not on file documented as of this encounter Visit Diagnoses Not on filedocumented in this encounter Historical Medications * This list may reflect changes made after this encounter. Medication Sig Dispensed Refills Start Date End Date loratadine (CLARITIN) 10 mg tablet Take 10 mg by mouth daily. 08/25/2011 albuterol (ACCUNEB) 0.63 mg/3 mL nebulizer solution Take 0.63 mg by nebulization as needed. 03/10/2010 05/16/19 11 fluoxetine (PROZAC) 10 mg capsule Take 10 mg by mouth daily. 12/11/2010 atomoxetine (STRATTERA) 100 mg capsule Take 100 mg by mouth daily. 12/11/2010 added in this encounter Care Teams Radiation Physicist Relationship Specialty Start Date End Date Sugar Lacy MD [address] [place] [phone] PCP - General 02/27/10 01/26/13 documented as of this encounter
--- OUTSIDE RECORDS SUMMARY | 2023-12-04 20:22 | XMS_ITS | Encounter Summary ---
Author Organization [facility] Address [address] [place] [address] Care Team Providers Care Transmitter Supervisor Name Role Phone Sugar Lacy MD Primary Care Provider Reason for Visit * Reason Onset Date Comments Results 05/08/2010 Encounter Details Date Type Department Care Team (Late st Contact Info) Description 05/08/2010 Telephone [facility] Pediatric Endocrinology - [facility] [address] [place], [place] [id number] Britt Gilbert, ROULA CDE [address] [place] [phone] Results Social History Tobacco Use Types Packs/Day Years Used Date Smoking Tobacco: Never Assessed Sex and Gender Information Value Date Recorded Sex Assigned at Not on file Gender Identity Female 03/02/2019 11:17 EST Sexual Orientation Not on file documented as of this encounter Miscellaneous Notes * Telephone Encounter - Britt Gilbert, ROULA - 05/08/2010 1136 EST External labs entered. [facility] documented in this encounter Plan of Treatment Not on file documented as of this encounter Procedures Procedure Name Priority Date/Time Associated Diagnosis Comments T3, TOTAL Routine 04/25/2010 7:51 EST ALT Routine 04/25/2010 7:51 EST AST Routine 04/25/2010 7:51 EST TSH Routine 04/25/2010 7:51 EST T4 FREE Routine 04/25/2010 7:51 EST ALKALINE PHOSPHATASE Routine 04/25/2010 7:51 EST documented in this encounter Results * ALKALINE PHOSPHATASE (04/25/2010 7:51 EST) Total Alkaline Phosphatase, External 74 [facility] Comment:38-126 Blood specimen (specimen) 04/25/2010 7:51 EST Historical Provider CHEMISTRY & BLOOD GAS ORDERABLES [facility] * ALT (04/25/2010 7:51 EST) ALT, External 31 [facility] Comment:9-52 Blood specimen (specimen) 04/25/2010 7:51 EST Historical Provider CHEMISTRY & BLOOD GAS ORDERABLES [facility] * AST (04/25/2010 7:51 EST) AST, External 28 [facility] Comment:14-36 Blood specimen (specimen) 04/25/2010 7:51 EST Historical Provider CHEMISTRY & BLOOD GAS ORDERABLES [facility] * T3, TOTAL (04/25/2010 7:51 EST) T3 TOTAL, External 98 [facility] Comment:85-188 Blood specimen (specimen) 04/25/2010 7:51 EST Historical Provider CHEMISTRY & BLOOD GAS ORDERABLES [facility] * T4 FREE (04/25/2010 7:51 EST) Free T4, External 0.59 [facility] Comment:0.78-2.19 Blood specimen (specimen) 04/25/2010 7:51 EST Historical Provider CHEMISTRY & BLOOD GAS ORDERABLES Performing Organization Address [facility] Co de Phone Number [facility] * TSH (04/25/2010 7:51 EST) TSH, External 1.01 [facility] Comment:0.47-4.68 Blood specimen (specimen) 04/25/2010 7:51 EST Historical Provider CHEMISTRY & BLOOD GAS ORDERABLES Performing Organization Address [facility] Co de Phone Number [facility] documented in this encounter Visit Diagnoses Not on filedocumented in this encounter Care Teams Transmitter Supervisor Relationship Specialty Start Date End Date Sugar Lacy MD [address] [place] [phone] PCP - General 02/27/10 01/26/13 documented as of this encounter
--- OUTSIDE RECORDS SUMMARY | 2023-12-04 20:22 | XMS_ITS | Encounter Summary ---
Author Organization [facility] Address [address] [place] [address] Care Team Providers Care Pole Framer Name Role Phone Unavailable Primary Care Provider Unavailabl e Encounter Details Date Type Department Care Team (Late st Contact Info) Description 12/30/2007 12:58 EDT Hospital Encounter [facility] [address] [place] [address] Paradise Reyes MD [address] [place] [address] Social History Tobacco Use Types Packs/Day [...] in the Last Year Never true 11/07/2019 [place] Depression Scale Answer Date Recorded [place] Depression Scale Total 21 09/17/2021 The [...] 5:24 EST documented as of this encounter Plan of [...]
--- OUTSIDE RECORDS SUMMARY | 2023-12-04 20:22 | XMS_ITS | Encounter Summary ---
Author Organization [facility] Address [address] [place] [address] Care Team Providers Care Weight Loss Consultant Name Role Phone Sugar Lacy MD Primary Care Provider [phone] Encounter Details Date Type Department Care Team (Late st Contact Info) Description 08/21/[address] [facility] [address] [place] [address] Research Program Manager, Outpatient Thyroiditis, autoimmune; Obesity; Acanthosis nigricans; Vitamin D [...] Date/Time Associated Diagnosis Comments COMPLETE BLOOD COUNT AND DIFFERENTIAL Routine 08/21/2010 9:12 EDT Thyroiditis, autoimmune Obesity Acanthosis nigricans Vitamin D deficiency T3, TOTAL Routine 08/21/2010 9:12 EDT Thyroiditis, autoimmune Obesity Acanthosis nigricans Vitamin D deficiency TSH Routine 08/21/2010 9:12 EDT Thyroiditis, autoimmune Obesity Acanthosis nigricans Vitamin D deficiency T4 FREE Routine 08/21/2010 9:12 EDT Thyroiditis, autoimmune Obesity Acanthosis nigricans Vitamin D deficiency T4 Routine 08/21/2010 9:12 EDT Thyroiditis, autoimmune Obesity Acanthosis nigricans Vitamin D deficiency HEPATIC FUNCTION PANEL (ALB,ALK PHOS,ALT,AST,DBIL,TOT HARDEEP,TOT PROT) Routine 08/21/2010 9:12 EDT Thyroiditis, autoimmune Obesity Acanthosis nigricans Vitamin D deficiency documented in this encounter Results * HEMAGRAM AND DIFFERENTIAL [...] DNA PROBE ORDERABLES [facility] [address] [place] [address] * LIVER FUNCTION TESTS (08/21/2010 9:12 EDT) Albumin 4.1 3.0 - 5.5 g/dl [facility] Total Protein 6.8 6.3 - 8.6 g/dl [facility] Total Alkaline Phosphatase 78 50 - 130 U/L [facility] ALT 26 0 - 45 U/L [facility] AST 18 15 - 46 U/L [facility] Unconjugated Bilirubin 0.3 0.1 - 1.1 mg/dl [facility] Conjugated Bilirubin 0.0 0.0 - 0.3 mg/dl [facility] Bilirubin, Total <0.5 0.0 - 1.4 mg/dl [facility] Blood specimen (specimen) 08/21/2010 9:12 EDT 08/21/2010 9:28 EDT Paradise Reyes MD CHEMISTRY & BLOOD GA S ORDERABLES Performing Organization Address City/[facility] Co de Phone Number [facility] [address] [place] [address] * T3, TOTAL (08/21/2010 9:12 EDT) T3, Total 107 85 - 188 ng/dL [facility] Blood specimen (specimen) 08/21/2010 9:12 EDT 08/21/2010 9:28 EDT Paradise Reyes MD CHEMISTRY & BLOOD GA S ORDERABLES Performing Organization Address [facility] Co de Phone Number [facility] [address] [place] [address] * T4 (08/21/2010 9:12 EDT) T4, Total 8.3 5.1 - 9.6 ug/dL [facility] Blood specimen (specimen) 08/21/2010 9:12 EDT 08/21/2010 9:28 EDT Paradise Reyes MD CHEMISTRY & BLOOD GA S ORDERABLES Performing Organization Address [facility] Co de Phone Number [facility] [address] [place] [address] * T4 FREE (08/21/2010 9:12 EDT) Free T4 1.1 0.8 - 1.5 ng/dL [facility] Blood specimen (specimen) 08/21/2010 9:12 EDT 08/21/2010 9:28 EDT Paradise Reyes MD CHEMISTRY & BLOOD GA S ORDERABLES Performing Organization Address [facility] Co de Phone Number [facility] [address] [place] [address] * TSH (08/21/2010 9:12 EDT) TSH 0.64 0.35 - 5.00 uIU/ml [facility] Blood specimen (specimen) 08/21/2010 9:12 EDT 08/21/2010 9:28 EDT Paradise Reyes MD CHEMISTRY & BLOOD GA S ORDERABLES Performing Organization Address [facility] de Phone Number [facility] [address] [place] [address] documented in this encounter Visit Diagnoses Diagnosis Thyroiditis, autoimmune Chronic lymphocytic thyroiditis Obesity Obesity, unspecified Acanthosis nigricans Acquired acanthosis nigricans Vitamin D deficiency Unspecified vitamin D deficiency documented in this encounter Care Teams Weight Loss Consultant Relationship Specialty Start Date End Date Sugar Lacy MD [address] [place] [phone] PCP - General 02/27/10 01/26/13 documented as of this encounter
--- OUTSIDE RECORDS SUMMARY | 2023-12-04 20:22 | XMS_ITS | Encounter Summary ---
Author Organization [facility] Address [address] [place] [address] Care Team Providers Care Sales Support Associate Name Role Phone Sugar Lacy MD Primary Care Provider Reason for Visit * Reason Onset Date Comments New/Evolving Symptoms 03/28/2010 Encounter Details Date Type Department Care Team (Late st Contact Info) Description 03/28/2010 Telephone [facility] Pediatric Endocrinology - Main [place] [address] [place], [place] [address] Paradise Reyes MD [address] [phone] New/Evolving Symptoms Social History Tobacco Use Types Packs/Day Years Used Date Smoking Tobacco: Never Assessed Sex and Gender Information Value Date Recorded Sex Assigned at Not on file Gender Identity Female 03/02/2019 11:17 EST Sexual Orientation Not on file documented as of this encounter Miscellaneous Notes * Telephone Encounter - Paradise Shannon MD - 03/28/2010 1620 EST To callback and update on Tiny's status. documented in this encounter Plan of Treatment Not on file documented as of this encounter Visit Diagnoses Not on filedocumented in this encounter Care Teams Sales Support Associate Relationship Specialty Start Date End Date Sugar Lacy MD [address] [place] [phone] PCP - General 02/27/10 01/26/13 documented as of this encounter
--- OUTSIDE RECORDS SUMMARY | 2023-12-04 20:22 | XMS_ITS | Encounter Summary ---
Author Organization [facility] Address [address] [place] [address] Care Team Providers Care Regional Economist Name Role Phone Sugar Lacy MD Primary Care Provider Reason for Visit * Reason Onset Date Comments Results 05/16/2010 Medication Management 05/16/2010 Encounter Details Date Type Department Care Team (Late st Contact Info) Description 05/16/2010 Telephone [facility] Pediatric Endocrinology - [facility] [address] [place] [address] Nancy Levy RN [address] [place] [address] Results; Medication Management Social History Tobacco Use Types Packs/Day Years Used Date Smoking Tobacco: Never Assessed Sex and Gender Information Value Date Recorded Sex Assigned at Not on file Gender Identity Female 03/02/2019 11:17 EST Sexual Orientation Not on file documented as of this encounter Miscellaneous Notes * Telephone Encounter - Nancy Levy RN - 05/16/2010 0890 EDT Message copied by NANCY LEVY on WedMay 16, 2010 2057 ------ Message from: JR LEE Created: [facility] May 15, 2010 1801 TFTs improving, no methimazole dose change. Labs locally in about 6 weeks (rx given at visit). Left message on phone for mom, Gricelda, about TFT's and need for labs in 6 weeks. documented in this encounter Plan of Treatment Not on file documented as of this encounter Visit Diagnoses Not on filedocumented in this encounter Care Teams Regional Economist Relationship Specialty Start Date End Date Sugar Lacy MD [address] [place] [phone] PCP - General 02/27/10 01/26/13 documented as of this encounter
--- OUTSIDE RECORDS SUMMARY | 2023-12-04 20:22 | XMS_ITS | Encounter Summary ---
Author Organization [facility] Address [address] [place] [address] Care Team Providers Care Insulation Worker Name Role Phone Sugar Lacy MD Primary Care Provider Encounter Details Date Type Department Care Team (Latest Contact Info) Description 03/17/2010 14:13 EST - 03/17/2010 23:59 EST Hospital Encounter [facility] [address] [place] [address] Paradise Reyes MD [address] [phone] Discharge Disposition: Home or Self [...] Dispensed Refills Start Date End Date albuterol (ACCUNEB) 0.63 mg/3 mL nebulizer solution Take 0.63 mg by nebulization as needed. 03/10/2010 05/16/19 11 atomoxetine (STRATTERA) 100 mg capsule Take 100 mg by mouth daily. 12/11/2010 fluoxetine (PROZAC) 10 mg capsule Take 10 mg by mouth daily. 12/11/2010 loratadine (CLARITIN) 10 mg tablet Take 10 mg by mouth daily. 08/25/2011 methimazole (TAPAZOLE) 10 mg tabletIndications:Thyr oiditis, autoimmune,Obesity,Alexandr nthosis nigricans,Vitamin D deficiency,Irregular periods/menstrual cycles Take 2 Tabs by mouth 2 times daily for 180 days. 120 Tab 5 03/19/2010 05/15/2010 valACYclovir (VALTREX) 500 mg tabletIndications:herp es labialis Take 500 mg by mouth daily. Indications: HERPES LABIALIS 05/15/2010 04/28/2011 documented as of this encounter Discharge Disposition Disposition Code Departure Means Destination Home or Self [facility] documented in this encounter Plan of Treatment Not on file documented as of this encounter Visit Diagnoses Not on filedocumented in this encounter Care Teams Insulation Worker Relationship Specialty Start Date End Date Sugar Lacy MD [address] [place] [phone] PCP - General 02/27/10 01/26/13 documented as of this encounter
--- OUTSIDE RECORDS SUMMARY | 2023-12-04 20:22 | XMS_ITS | Encounter Summary ---
Author Organization [facility] Address [address] [place] [address] Care Team Providers Care Hand Deicer Element Winder Name Role Phone Manny Boles MD Primary Care Provider [phone] Encounter Details Date Type Department Care Team (Late st Contact Info) Description 06/25/2008 14:50 EDT - 06/25/2008 23:59 EDT Hospital Encounter [facility] [address] [place] [address] Paradise Reyes MD [address] [address] Social History Tobacco Use Types Packs/Day Years Used Date Smoking Tobacco: Never Assessed Sex and Gender Information Value Date Recorded Sex Assigned at Not on file Gender Identity Female 03/02/2019 11:17 EST Sexual Orientation Not on file documented as of this encounter Discharge Disposition Disposition Code Departure Means Destination Home documented in this encounter Plan of Treatment Not on file documented as of this encounter Procedures Procedure Name Priority Date/Time Associated Diagnosis Comments T3, TOTAL Routine 08/06/2008 14:59 EDT TSH Routine 08/06/2008 14:59 EDT T4 FREE Routine 08/06/2008 14:59 EDT HEMOGLOBIN A1C Routine 08/06/2008 14:59 EDT BASIC METABOLIC PANEL (BMP) Routine 08/06/2008 14:59 EDT TSH Routine 06/25/2008 14:59 EDT T4 FREE Routine 06/25/2008 14:59 EDT HEMOGLOBIN A1C Routine 06/25/2008 14:59 EDT documented in this encounter Results * (ABNORMAL) BASIC METABOLIC PANEL (08/06/2008 14:59 EDT) Sodium 139 136 - 145 mEq/L [facility] Potassium 4.0 3.6 - 5.2 mEq/L [facility] Chloride 104 96 - 110 mEq/L [facility] CO2 29 24 - 32 mEq/L [facility] BUN 11 8 - 21 mg/dl [facility] Creatinine 0.54(L) 0.6 - 1.2 mg/dl [facility] GFR, Calculated Age <18 ml/min/1.7 3m2 [facility] Calcium 9.7 8.5 - 10.5 mg/dl [facility] Calculated Calcium 9.9 8.5 - 10.5 mg/dl [facility] Glucose, Serum 60(L) 70 - 100 mg/dl [facility] Fasting? No [facility] Blood specimen (specimen) 08/06/2008 14:59 EDT 08/06/2008 15:02 EDT Paradise Reyes MD CHEMISTRY & BLOOD GA S ORDERABLES [facility] [address] [place] [address] * HEMOGLOBIN A1C (08/06/2008 14:59 EDT) Hemoglobin A1C 4.9 % [facility] Comment: Shortened red blood cell survival will decrease Hemoglobin A1C values. Reference Range: <6% Normal Range ADA guidelines: The A1c goal for non adults in general is <7% The A1c goal for selected individual patients is as close to normal (<6%) as possible without significant hypoglycemia. Est Avg Glucose 94 mg/dl [facility] Comment: eAG represents the A1c result expressed as average glucose in mg/dl. Blood specimen (specimen) 08/06/2008 14:59 EDT 08/06/2008 15:02 EDT Paradise Reyes MD CHEMISTRY & BLOOD GA S ORDERABLES Performing Organization Address [facility] Phone Number [facility] [address] [place] [address] * (ABNORMAL) T3, TOTAL (08/06/2008 14:59 EDT) T3, Total 279(H) 86 - 199 ng/dL [facility] Blood specimen (specimen) 08/06/2008 14:59 EDT 08/06/2008 15:02 EDT Paradise Reyes MD CHEMISTRY & BLOOD GA S ORDERABLES Performing Organization Address [facility] Phone Number [facility] [address] [place] [address] * (ABNORMAL) T4 FREE (08/06/2008 14:59 EDT) Free T4 1.8(H) 0.8 - 1.5 ng/dL [facility] Blood specimen (specimen) 08/06/2008 14:59 EDT 08/06/2008 15:02 EDT Paradise Reyes MD CHEMISTRY & BLOOD GA S ORDERABLES Performing Organization Address [facility] de Phone Number [facility] [address] [place] [address] * (ABNORMAL) TSH (08/06/2008 14:59 EDT) TSH <0.02(L) 0.35 - 5.00 uIU/ml [facility] Blood specimen (specimen) 08/06/2008 14:59 EDT 08/06/2008 15:02 EDT Paradise Reyes MD CHEMISTRY & BLOOD GA S ORDERABLES Performing Organization Address [facility] de Phone Number [facility] [address] [place] [address] * HEMOGLOBIN A1C (06/25/2008 14:59 EDT) Hemoglobin A1C 5.2 % [facility] Comment: Reference Range: <6% Normal Range ADA guidelines: The A1c goal for non adults in general is <7% The A1c goal for selected individual patients is as close to normal (<6%) as possible without significant hypoglycemia. Est Avg Glucose 103 mg/dl [facility] Comment: eAG represents the A1c result expressed as average glucose in mg/dl. Blood specimen (specimen) 06/25/2008 14:59 EDT 06/25/2008 15:01 EDT Paradise Reyes MD CHEMISTRY & BLOOD GA S ORDERABLES Performing Organization Address [facility] de Phone Number [facility] [address] [place] [address] * (ABNORMAL) T4 FREE (06/25/2008 14:59 EDT) Free T4 2.5(H) 0.8 - 1.5 ng/dL [facility] Blood specimen (specimen) 06/25/2008 14:59 EDT 06/25/2008 15:01 EDT Paradise Reyes MD CHEMISTRY & BLOOD GA S ORDERABLES Performing Organization Address [facility] de Phone Number [facility] [address] [place] [address] * (ABNORMAL) TSH (06/25/2008 14:59 EDT) TSH <0.02(L) 0.35 - 5.00 uIU/ml [facility] Blood specimen (specimen) 06/25/2008 14:59 EDT 06/25/2008 15:01 EDT Paradise Reyes MD CHEMISTRY & BLOOD GA S ORDERABLES [facility] [address] [place] [address] documented in this encounter Visit Diagnoses Not on filedocumented in this encounter Care Teams Hand Deicer Element Winder Relationship Specialty Start Date End Date Manny Boles MD [address] [facility] [address] [place] [address] PCP - General 06/25/08 12/20/08 documented as of this encounter
--- OUTSIDE RECORDS SUMMARY | 2023-12-04 20:22 | XMS_ITS | Encounter Summary ---
Author Organization [facility] Address [address] [place] [address] Care Team Providers Care Bat Carrier Name Role Phone Manny Boles MD Primary Care Provider [phone] Reason for Visit * Reason Onset Date Comments Results 12/30/2009 Encounter Details Date Type Department Care Team (Late st Contact Info) Description 12/30/2009 Telephone [facility] Pediatric Endocrinology - [facility] [address] [place] [address] Nancy Cleveland, RN [address] [place] [address] Results Social History Tobacco Use Types Packs/Day Years Used Date Smoking Tobacco: Never Assessed Sex and Gender Information Value Date Recorded Sex Assigned at Not on file Gender Identity Female 03/02/2019 11:17 EST Sexual Orientation Not on file documented as of this encounter Miscellaneous Notes * Telephone Encounter - Nancy Cleveland RN - 12/30/2009 1153 EDT 12/30/09 Outside lab results entered documented in this encounter Plan of Treatment Not on file documented as of this encounter Procedures Procedure Name Priority Date/Time Associated Diagnosis Comments TSH Routine 12/27/2009 7:45 EDT T4 FREE Routine 12/27/2009 7:45 EDT documented in this encounter Results * T4 FREE (12/27/2009 7:45 EDT) Free T4, External 0.83 [facility] Comment:ref range 0.78-2.19 Blood specimen (specimen) 12/27/2009 7:45 EDT Historical Provider CHEMISTRY & BLOOD GAS ORDERABLES Performing Organization Address [facility] Co de Phone Number [facility] * (ABNORMAL) TSH (12/27/2009 7:45 EDT) TSH, External 0.009 [facility] Comment:ref range 0.47-4.68 Blood specimen (specimen) 12/27/2009 7:45 EDT Historical Provider CHEMISTRY & BLOOD GAS ORDERABLES Performing Organization Address [facility] Co de Phone Number [facility] documented in this encounter Visit Diagnoses Not on filedocumented in this encounter Care Teams Bat Carrier Relationship Specialty Start Date End Date Manny Boles MD [address] [place] [address] [address] [place] [phone] PCP - General 12/02/09 02/26/10 documented as of this encounter
--- OUTSIDE RECORDS SUMMARY | 2023-12-04 20:22 | XMS_ITS | Encounter Summary ---
Author Organization [facility] Address [address] [place] [address] Care Team Providers Care Feather Renovator Name Role Phone Manny Boles MD Primary Care Provider [phone] Encounter Details Date Type Department Care Team (Late st Contact Info) Description 08/27/2008 Orders Only [facility] [address] [place] [address] Paradise Reyes MD [address] [address] Social History Tobacco Use Types [...] Priority Date/Time Associated Diagnosis Comments RAD US NECK/THYROID 08/27/2008 1 3:40 EDT documented in this encounter Results * RAD US NECK/THYROID (08/27/2008 13:40 EDT) Anatomical Region Laterality Modality Other 08/27/2008 13:4 0 EDT 08/27/2008 14:18 EDT Narrative 08/27/2008 14:18 EDT US NECK/THYROID ??Aug 27, 2008 1:40:00 PM Signs and Symptoms/Comments: ??Yanira's Thyroiditis, Goiter. Comparison: Nuclear medicine scan December 16, 2007. Findings: Thyroid ultrasound was performed. The right thyroid lobe measures 5.3 x 1.6 x 1.9 cm. The left thyroid lobe measures 5.2 x 1.6 x 1.5 cm. The thyroid isthmus is 0.35 cm in height. Normal lymph nodes are seen in the neck bilaterally. The echotexture of the thyroid gland is heterogeneous bilaterally. No dominant nodules are appreciated. Impression: Mildly enlarged thyroid with a heterogeneous echotexture and no dominant nodule identified. Procedure Note 08/27/2008 US NECK/THYROID Aug 27, 2008 1:40:00 PM Signs and Symptoms/Comments: Yanira's Thyroiditis, Goiter. Comparison: Nuclear medicine scan December 16, 2007. Findings: Thyroid ultrasound was performed. The right thyroid lobe measures 5.3 x 1.6 x 1.9 cm. The left thyroid lobe measures 5.2 x 1.6 x 1.5 cm. The thyroid isthmus is 0.35 cm in height. Normal lymph nodes are seen in the neck bilaterally. The echotexture of the thyroid gland is heterogeneous bilaterally. No dominant nodules are appreciated. Impression: Mildly enlarged thyroid with a heterogeneous echotexture and no dominant nodule identified. Paradise Reyes MD IMG US ORDERABLES documented in this encounter Visit Diagnoses Not on filedocumented in this encounter Care Teams Feather Renovator Relationship Specialty Start Date End Date Manny Boles MD [address] [place] [phone] PCP - General 06/25/08 12/20/08 documented as of this encounter
--- OUTSIDE RECORDS SUMMARY | 2023-12-04 20:22 | XMS_ITS | Encounter Summary ---
Author Organization [facility] Address [address] [place] [address] Care Team Providers Care Sterilization Tech Name Role Phone Manny Boles MD Primary Care Provider [phone] Encounter Details Date Type Department Care Team (Latest Contact Info) Description 08/27/2008 14:31 EDT - 08/27/2008 23:59 EDT Hospital Encounter [facility] [address] [place] [address] Paradise Reyes MD [address] [address] Discharge Disposition: Home or Self Care Social History Tobacco Use Types Packs/Day Years Used Date Smoking Tobacco: Never Assessed Sex and Gender Information Value Date Recorded Sex Assigned at Not on file Gender Identity Female 03/02/2019 11:17 EST Sexual Orientation Not on file documented as of this encounter Discharge Disposition Disposition Code Departure Means Destination Home or Self Detention documented in this encounter Plan of Treatment Not on file documented as of this encounter Procedures Procedure Name Priority Date/Time Associated Diagnosis Comments CYTOPATHOLOGY Routine 09/09/2008 0:00 EDT THYROTROPIN RECEPTOR ANTIBODY Routine 08/27/2008 14:41 EDT THYROID-STIMULATING IMMUNOGLOBULIN (TSI), SERUM Routine 08/27/2008 14:41 EDT T3, TOTAL Routine 08/27/2008 14:41 EDT TSH Routine 08/27/2008 14:41 EDT T4 FREE Routine 08/27/2008 14:41 EDT T4 Routine 08/27/2008 14:41 EDT documented in this encounter Results * CYTOPATHOLOGY (09/09/2008 0:00 EDT) Pathologist [facility] Pathology Report: CYTOPATHOLOGY REPORT ? Reports generated via electronic interface contain original data; ? however they are lacking the format of the original report. ? Caution should be taken when reading/interpreti ng unformatted reports. ? Name: ? PREGENT, TINY A ? Accession #: ? [id number] ? : ? 1995 (Age: 12) ??F ?Collect Date: ? 09/09/2008 ? Location: ? [facility] ? Receive Date: ? 09/10/2008 ? Provider: ?BETTIE ZAIDAANI MD ? Copy to: ? Specimen/Source: ?Pap Test, Cervix, ThinPrep Imaging System with manual ?? evaluation ? Last Menstrual Period: ? Hormonal/Contracep tive Status: ? Depo-Provera ? SPECIMEN ADEQUACY ? Satisfactory for Evaluation ? - transformation zone component present ? - scant squamous epithelial component secondary to excessive inflammation ? GENERAL CATEGORIZATION ? Negative for Intraepithelial Lesion or Malignancy ? Document reviewed and electronically signed by: ? Olamide Kellerlogg, CT(ASCP) ? Report Date: ??09/13/2008 09:38 ? End of Report ? [facility] 09/09/2008 09/10/2008 Bettie Shirley MD PATHOLOGY ORDERABLES [facility] [address] [place] [address] * THYROTROPIN RECEPTOR ANTIBODY (08/27/2008 14:41 EDT) Thyrotropin Receptor Ab <5Unit: % Index -- REFERENCE VALUE -- ? <16 (Negative) ? >= 16 (Positive) ? Performed or Referred by: [facility] Dpt of Lab Med and Path, [address] ? [place] [address], Lab Dir: Surinder Mackay III, ? MD ? [facility] Blood specimen (specimen) 08/27/2008 14:41 EDT 08/27/2008 14:44 EDT Paradise Reyes MD CHEMISTRY & BLOOD GA S ORDERABLES [facility] [address] [place] [address] * (ABNORMAL) THYROID-STIMULATING IMMUNOGLOBULIN (TSI), SERUM (08/27/2008 14:41 EDT) Thyroid Stimulating Immunoglobulin 2.8Reference range: <=1.3 Unit: TSI index Performed or Referred by: [facility] Dpt of Lab Med and Path, [address] ?? , [place] [address], Lab Dir: Surinder Mackay III, MD(H) [facility] Blood specimen (specimen) 08/27/2008 14:41 EDT 08/27/2008 14:44 EDT Paradise Reyes MD CHEMISTRY & BLOOD GA S ORDERABLES Performing Organization Address [facility] de Phone Number [facility] [address] [place] [address] * (ABNORMAL) T3, TOTAL (08/27/2008 14:41 EDT) T3, Total 259(H) 86 - 199 ng/dL [facility] Blood specimen (specimen) 08/27/2008 14:41 EDT 08/27/2008 14:44 EDT Paradise Reyes MD CHEMISTRY & BLOOD GA S ORDERABLES Performing Organization Address [facility] Phone Number [facility] [address] [place] [address] * (ABNORMAL) T4 (08/27/2008 14:41 EDT) T4, Total 12.7(H) 5.2 - 10.0 ug/dL [facility] Blood specimen (specimen) 08/27/2008 14:41 EDT 08/27/2008 14:44 EDT Paradise Reyes MD CHEMISTRY & BLOOD GA S ORDERABLES Performing Organization Address [facility] de Phone Number [facility] [address] [place] [address] * (ABNORMAL) T4 FREE (08/27/2008 14:41 EDT) Free T4 1.9(H) 0.8 - 1.5 ng/dL [facility] Blood specimen (specimen) 08/27/2008 14:41 EDT 08/27/2008 14:44 EDT Paradise Reyes MD CHEMISTRY & BLOOD GA S ORDERABLES Performing Organization Address [facility] Co de Phone Number [facility] [address] [place] [address] * (ABNORMAL) TSH (08/27/2008 14:41 EDT) TSH <0.02(L) 0.35 - 5.00 uIU/ml [facility] Blood specimen (specimen) 08/27/2008 14:41 EDT 08/27/2008 14:44 EDT Paradise Reyes MD CHEMISTRY & BLOOD GA S ORDERABLES Performing Organization Address [facility] Co de Phone Number [facility] [address] [place] [address] documented in this encounter Visit Diagnoses Not on filedocumented in this encounter Care Teams Sterilization Tech Relationship Specialty Start Date End Date Manny Boles MD [address] [place] [address] [address] [place] [phone] PCP - General 06/25/08 12/20/08 documented as of this encounter
--- OUTSIDE RECORDS SUMMARY | 2023-12-04 20:22 | XMS_ITS | Encounter Summary ---
Author Organization [facility] Address [address] [place] [address] Care Team Providers Care Sports Coordinator Name Role Phone Sugar Lacy MD Primary Care Provider Reason for Visit * Reason Onset Date Comments Update 03/31/2010 Encounter Details Date Type Department Care Team (Late st Contact Info) Description 03/31/2010 Telephone [facility] Pediatric Endocrinology - [facility] [address] [place], [place] [address] Paradise Reyes MD [address] [address] Update Social History Tobacco Use Types Packs/Day Years Used Date Smoking Tobacco: Never Assessed Sex and Gender Information Value Date Recorded Sex Assigned at Not on file Gender Identity Female 03/02/2019 11:17 EST Sexual Orientation Not on file documented as of this encounter Miscellaneous Notes * Telephone Encounter - Paradise Shannon MD - 03/31/2010 0951 EST Spoke with mom. Tiny's episode on 03/28/10 - lump in the throat and difficulty breathing resolved spontaneously, no recurrence, no rash, no swelling. She continues on methimazole. Mom will contact our office with changes. documented in this encounter Plan of Treatment Not on file documented as of this encounter Visit Diagnoses Not on filedocumented in this encounter Care Teams Sports Coordinator Relationship Specialty Start Date End Date Sugar Lacy MD [address] [place] [phone] PCP - General 02/27/10 01/26/13 documented as of this encounter
--- OUTSIDE RECORDS SUMMARY | 2023-12-04 20:22 | XMS_ITS | Encounter Summary ---
Author Organization [facility] Address [address] [place] [address] Care Team Providers Care Flagstone Layer Name Role Phone Sugar Lacy MD Primary Care Provider Encounter Details Date Type Department Care Team (Latest Contact Info) Description 06/24/2009 14:46 EDT - 06/24/2009 23:59 EDT Hospital Encounter [facility] [address] [place] [address] Paradise Reyes MD [address] [address] Discharge Disposition: Home or Self [...] Procedure Name Priority Date/Time Associated Diagnosis Comments VITAMIN D (25,OH) Routine 06/24/2009 14: 50 EDT T3, TOTAL Routine 06/24/2009 14:50 EDT TSH Routine 06/24/2009 14:50 EDT T4 FREE Routine 06/24/2009 14:50 EDT HEMOGLOBIN A1C Routine 06/24/2009 14:50 EDT LIPID PROFILE (INCLUDES CHOLESTEROL, TRIGLYCERIDES, HDL, LDL) Routine 06/24/2009 14:50 EDT COMPREHENSIVE METABOLIC PANEL (CMP) Routine 06/24/2009 14:50 EDT documented in this encounter Results * (ABNORMAL) COMPREHENSIVE METABOLIC PANEL (06/24/2009 14:50 EDT) Potassium 4.0 3.6 - 5.2 mEq/L [facility] Sodium 140 136 - 145 mEq/L [facility] Chloride 105 96 - 110 mEq/L [facility] CO2 26 24 - 32 mEq/L [facility] Total Alkaline Phosphatase 70 70 - 230 U/L [facility] Bilirubin, Total <0.5 0.0 - 1.4 mg/dl [facility] AST 21 16 - 38 U/L [facility] ALT 32(H) 5 - 30 U/L [facility] Albumin 4.1 3.0 - 5.5 g/dl [facility] Total Protein 6.9 6.3 - 8.6 g/dl [facility] Creatinine 0.72 0.6 - 1.2 mg/dl [facility] GFR, Calculated Age <18 ml/min/1.7 3m2 [facility] BUN 7(L) 8 - 21 mg/dl [facility] Calcium 9.3 8.5 - 10.5 mg/dl [facility] Calculated Calcium 9.6 8.5 - 10.5 mg/dl [facility] Glucose, Serum 79 70 - 100 mg/dl [facility] Fasting? No [facility] Blood specimen (specimen) 06/24/2009 14:50 EDT 06/24/2009 15:02 EDT Paradise Reyes MD CHEMISTRY & BLOOD GA S ORDERABLES [facility] [address] [place] [address] * VITAMIN D (25,OH) (06/24/2009 14:50 EDT) Pathologist [facility] 25OH Vitamin D Tot 21.4 ng/ml [facility] Comment: Reference Range: <10 ng/ml: Deficient 10-30 ng/ml: Insufficient 30-100 ng/ml: Sufficient >100 ng/ml: Toxic Blood specimen (specimen) 06/24/2009 14:50 EDT 06/24/2009 15:02 EDT Paradise Reyes MD CHEMISTRY & BLOOD GA S ORDERABLES Performing Organization Address [facility] Co de Phone Number [facility] [address] [place] [address] * (ABNORMAL) LIPID PROFILE (INCLUDES CHOLESTEROL, TRIGLYCERIDES, HDL, LDL) (06/24/2009 14:50 EDT) Pathologist [facility] Cholesterol 179 mg/dl [facility] Comment: Desirable:<200 Borderline High:200-239 High:>dc=250 Triglycerides 173(H) 38 - 135 mg/dl [facility] HDL 64 mg/dl [facility] Comment: Low:<40 High(Desirable):>or=60 LDL, Calculated 80 mg/dl [facility] Comment: Optimal:<100 Above optimal:100-129 Borderline High:130-159 High:160-189 Very High:>bd=981 Chol/HDL Ratio 2.8 [facility] Fasting? No [facility] Blood specimen (specimen) 06/24/2009 14:50 EDT 06/24/2009 15:02 EDT Paradise Reyes MD CHEMISTRY & BLOOD GA S ORDERABLES Performing Organization Address [facility] Co de Phone Number [facility] [address] [place] [address] * HEMOGLOBIN A1C (06/24/2009 14:50 EDT) Pathologist [facility] Hemoglobin A1C 4.9 % [facility] [...] adverse effects of treatment. Est Avg Glucose 94 mg/dl [facility] Comment: eAG represents the A1c result expressed as average glucose in mg/dl. Blood specimen (specimen) 06/24/2009 14:50 EDT 06/24/2009 15:02 EDT Paradise Reyes MD CHEMISTRY & BLOOD GA S ORDERABLES Performing Organization Address [facility] Phone Number [facility] [address] [place] [address] * T3, TOTAL (06/24/2009 14:50 EDT) T3, Total 163 85 - 188 ng/dL [facility] Blood specimen (specimen) 06/24/2009 14:50 EDT 06/24/2009 15:02 EDT Paradise Reyes MD CHEMISTRY & BLOOD GA S ORDERABLES Performing Organization Address [facility] Phone Number [facility] [address] [place] [address] * T4 FREE (06/24/2009 14:50 EDT) Free T4 0.8 0.8 - 1.5 ng/dL [facility] Blood specimen (specimen) 06/24/2009 14:50 EDT 06/24/2009 15:02 EDT Paradise Reyes MD CHEMISTRY & BLOOD GA S ORDERABLES Performing Organization Address [facility] de Phone Number [facility] [address] [place] [address] * (ABNORMAL) TSH (06/24/2009 14:50 EDT) TSH 5.07(H) 0.35 - 5.00 uIU/ml [facility] Blood specimen (specimen) 06/24/2009 14:50 EDT 06/24/2009 15:02 EDT Paradise Reyes MD CHEMISTRY & BLOOD GA S ORDERABLES Performing Organization Address City/State/[facility] Co de Phone Number [facility] [address] [place] [address] documented in this encounter Visit Diagnoses Not on filedocumented in this encounter Care Teams Flagstone Layer Relationship Specialty Start Date End Date Sugar Layc MD [address] [place] [address] PCP - General 06/24/09 12/01/09 documented as of this encounter
--- OUTSIDE RECORDS SUMMARY | 2023-12-04 20:22 | XMS_ITS | Encounter Summary ---
Author Organization [facility] Address [address] [place] [address] Care Team Providers Care Instructional Systems Design Consultant Name Role Phone Manny Boles MD Primary Care Provider [phone] Manny Boles MD Primary Care Provider [phone] Sugar Lacy MD Primary Care Provider Encounter Details Date Type Department Care Team (Late st Contact Info) Description 04/27/2008 Before PRISM Converted Visit (Maple) [facility] - Maple conversion [address] [place] [address] Paradise Reyes MD [address] [place] [address] Social History Tobacco Use Types Packs/Day Years Used Date Smoking Tobacco: Never Assessed Sex and Gender Information Value Date Recorded Sex Assigned at Not on file Gender Identity Female 03/02/2019 11:17 EST Sexual Orientation Not on file documented as of this encounter Progress Notes * Paradise Shannon MD - 04/03/2009 0027 EST PROGRESS/FOLLOWUP NOTE - 04/27/2008 AGE: 14-6/12 years. GENDER: Female. DIAGNOSIS: Yanira's thyroiditis. ADDITIONAL DIAGNOSES ADHD. 2. Mood disorder, NOS (self injurious behavior). MEDICATIONS Depo Provera (last injection in 03/2008). 2. Strattera 100 mg p.o. daily. 3. Truchas stopped (mom unsure about the date). 4. Calcium and vitamin D inconsistently. ALLERGIES No known drug allergies. 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 She was taking Truchas at that time. Truchas may induce transient thyrotoxicosis as well as hypothyroidism. Tiny had low radioactive iodine uptake; consistent with Hashitoxicosis. She had no symptoms of hyperthyroidism. As she is at risk to develop hypothyroidism, I recommended to have a repeat TFTs in a month after Truchas was discontinued. Tiny had a blood test done at the end of January,. Unfortunately, I never received those results. TSH was 13.4 microinternational units /ml, free T4 of 0.47 ng/dl, T4 of 4.06 ncg/dl. Mom is not sure if Tiny was still taking Truchas at that time. Tiny has been doing well with no major interval illnesses other than acute gastroenteritis whichwas runningthrough the family. She does not report any neck swelling. She tends to get fatigued a few times a week, it is most likely associated with her lack of sleep. Mom says that some of the daysshe would be up most of the night. Mom believes that there is no increased appetite, but Tiny has been gaining weight. Tiny reports temperature intolerance. She tends to be more cold, but she has other times when she is hot. She does not report skin or hair changes. No change in bowel movements. No tremor.Tiny reports occasional episodes of palpitations; maybe once in a week. Sometimes, she will panic that she cannot breathe. Mom says once she was almost hysteric. Those attacks seem to be associated with activity or with emotional stress. Tiny started to attend a teen group and she appears to connect with the people there. Mom believes she has been controlling her anxiety better. Tiny has not been participating much in after-school sports. Tiny continues her 9th grade. Mom says she is doing better at school. She is not missing as muchclasses and in some subjects she improved from F to B. There are no changes in social concerns. PHYSICAL EXAM Height 157.5 cm (25 to 50%), weight 69.4 kg (90 to 97%). BMI 27.9. BP 112/57, HR 85. Tiny is in no acute distress. Cooperative with her exam. There are no dysmorphic features appreciated. She has moist mucous membranes with clear oropharynx. EOMI. PERRLA. Sharp disc margins bilaterally. Thyroid gland not palpable. No nodularity over thyroid bed. No lymphadenopathy. Chest clear bilaterally. Cardiovascular: S1, S2, no murmur. Distal pulses 2+. GI benign. No masses. No hepatosplenomegaly. Neurologic exam: No tremor. No tongue fasciculations. DTRs 2+. Musculoskeletal: No bone deformity. No clubbing. Skin: Normal temperature. No skin lesions. Sexual development: Deferred. IMPRESSION Tiny is a 12-year- and 6-month-old adolescent with history of Hashitoxicosis and goiter. 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 She has no palpable goiter anymore. RECOMMENDATIONS Repeat TFT's today; will start levothyroxine with 75 mcg p.o. daily if hypothyroidism is confirmed with repeat blood work in 2 months. 2. Follow up in 2 months. 3. Importance of maintaining the euthyroid state reviewed. 4. Reviewed signs and symptoms of hyperthyroidism in case she is over treated. 5. Reviewed appropriate administration of levothyroxine (with water on an empty stomach). Addendum: TSH 0.12 uIU/ml, FT4 1.6 ng/dl (0.8-1.5). Family was called not to start LT4 and repeat BW in 2 months. Signed by Paradise Shannon MD 05/14/2008 11:02 Paradise Shannon MD - Paradise Shannon MD A - STACI Job ID: [id number] Doc ID: [id number] cc: MD Sugar Zhao MD documented in this encounter Plan of Treatment Not on file documented as of this encounter Visit Diagnoses Not on filedocumented in this encounter Care Teams Instructional Systems Design Consultant Relationship Specialty Start Date End Date Manny Boles MD [address] [phone] PCP - General 12/21/08 06/23/09 Manny Boles MD [address] [place] [phone] PCP - General 06/25/08 12/20/08 Sugar Lacy MD [address] [place] [phone] PCP - General 06/21/08 06/24/08 documented as of this encounter
--- OUTSIDE RECORDS SUMMARY | 2023-12-04 20:22 | XMS_ITS | Encounter Summary ---
Author Organization [facility] Address [address] [place] [address] Care Team Providers Care Media Services Specialist Name Role Phone Unavailable Primary Care Provider Unavailabl e Encounter Details Date Type Department Care Team (Late st Contact Info) Description 04/27/2008 13:30 [facility] Hospital Encounter [facility] [address] [place] [address] Paradise Reyes MD [address] [address] Social History Tobacco Use Types [...] in the Last Year Never true 11/07/2019 Farner Depression Scale Answer Date Recorded Farner Depression Scale Total 21 09/17/2021 The thought [...] Priority Date/Time Associated Diagnosis Comments TSH Routine 04/27/2008 14:32 EST T4 FREE Routine 04/27/2008 14:32 EST T4 Routine 04/27/2008 14:32 EST HEMOGLOBIN A1C Routine 04/27/2008 14:32 EST documented in this encounter Results * HEMOGLOBIN A1C (04/27/2008 14:32 EST) Hemoglobin A1C 5.0 % [facility] Comment: Shortened red blood cell survival will decrease Hemoglobin A1C values. Reference Range: <6% Normal Range ADA guidelines: The A1c goal for non adults in general is <7% The A1c goal for selected individual patients is as close to normal (<6%) as possible without significant hypoglycemia. 04/27/2008 14:3 2 EST 04/27/2008 14:34 EST Paradise Reyes MD CHEMISTRY & BLOOD GA S ORDERABLES [facility] [address] [place] [address] * (ABNORMAL) TSH (04/27/2008 14:32 EST) TSH 0.12(L) 0.35 - 5.00 uIU/ml [facility] 04/27/2008 14:3 2 EST 04/27/2008 14:34 EST Paradise Reyes MD CHEMISTRY & BLOOD GA S ORDERABLES Performing Organization Address [facility] Phone Number [facility] [address] [place] [address] * (ABNORMAL) T4 FREE (04/27/2008 14:32 EST) Free T4 1.6(H) 0.8 - 1.5 ng/dL [facility] 04/27/2008 14:3 2 EST 04/27/2008 14:34 EST Paradise Reyes MD CHEMISTRY & BLOOD GA S ORDERABLES Performing Organization Address [facility] Phone Number [facility] [address] [place] [address] * T4 (04/27/2008 14:32 EST) T4, Total 9.2 5.2 - 10.0 ug/dL [facility] 04/27/2008 14:3 2 EST 04/27/2008 14:34 EST Paradise Reyes MD CHEMISTRY & BLOOD GA S ORDERABLES Performing Organization Address [facility] Phone Number [facility] [address] [place] [address] documented in this encounter Visit Diagnoses Not on filedocumented in this encounter Additional Health Concerns Infection Onset Date Last Indicated Resolved Time COVID-19 07/14/2021 07/14/2021 07/25/2021 22:1 6 EDT documented as of this encounter
--- OUTSIDE RECORDS SUMMARY | 2023-12-04 20:22 | XMS_ITS | Encounter Summary ---
Author Organization [facility] Address [address] [place] [address] Care Team Providers Care Canine Service Teacher Name Role Phone Sugar Lacy MD Primary Care Provider Reason for Visit * Reason Onset Date Comments Medication Problem 03/24/2010 Encounter Details Date Type Department Care Team (Late st Contact Info) Description 03/24/2010 Refill [facility] Pediatric Hematology & On[facility] - [facility] [address] [place] [address] Paradise Reyes MD [address] [phone] Medication Problem Social History Tobacco Use Types Packs/Day Years Used Date Smoking Tobacco: Never Assessed Sex and Gender Information Value Date Recorded Sex Assigned at Not on file Gender Identity Female 03/02/2019 11:17 EST Sexual Orientation Not on file documented as of this encounter Miscellaneous Notes * Telephone Encounter - Nancy Cleveland RN - 03/24/2010 3322 EST Spoke to Tiny, mom not available. Told Tiny that methimazole 20 mg is prescribed dose, which is 2 X 10 mg tablets. Asked her to have mom call back when she is available so I can tell her also * Telephone Encounter - Daryn Deleon - 03/24/2010 1300 EST Is concerned that the medication dosage on the methimazole is incorrect. The bottle says 2, but Momthinks its 1. Please call with correct dosage. documented in this encounter Plan of Treatment Not on file documented as of this encounter Visit Diagnoses Not on filedocumented in this encounter Care Teams Canine Service Teacher Relationship Specialty Start Date End Date Sugar Lacy MD [address] [place] [phone] PCP - General 02/27/10 01/26/13 documented as of this encounter
--- OUTSIDE RECORDS SUMMARY | 2023-12-04 20:22 | XMS_ITS | Encounter Summary ---
Author Organization [facility] Address [address] [place] [address] Care Team Providers Care Cord Tire Builder Name Role Phone Sugar Lacy MD Primary Care Provider Reason for Visit * Reason Onset Date Comments Results 04/28/2010 Encounter Details Date Type Department Care Team (Late st Contact Info) Description 04/28/2010 Telephone [facility] Pediatric Endocrinology - [facility] [address] [place], [place] [address] Paradise Reyes MD [address] [phone] Results Social History Tobacco Use Types Packs/Day Years Used Date Smoking Tobacco: Never Assessed Sex and Gender Information Value Date Recorded Sex Assigned at Not on file Gender Identity Female 03/02/2019 11:17 EST Sexual Orientation Not on file documented as of this encounter Miscellaneous Notes * Telephone Encounter - Paradise Shannon MD - 04/28/2010 102 EST Started on methimazole 20 mg BID on 03/20/10. TFT's improved; will decrease dose to 15 mg PO BID. Repeated labs at the visit. documented in this encounter Plan of Treatment Not on file documented as of this encounter Visit Diagnoses Not on filedocumented in this encounter Care Teams Cord Tire Builder Relationship Specialty Start Date End Date Sugar Lacy MD [address] [place] [phone] PCP - General 02/27/10 01/26/13 documented as of this encounter
--- OUTSIDE RECORDS SUMMARY | 2023-12-04 20:22 | XMS_ITS | Encounter Summary ---
Author Organization [facility] Address [address] [place] [address] Care Team Providers Care Baggage And Mail Agent Name Role Phone Manny Boles MD Primary Care Provider [phone] Encounter Details Date Type Department Care Team (Latest Contact Info) Description 08/27/2008 12:25 EDT - 08/27/2008 23:59 EDT Hospital Encounter [facility] [address] [place] [address] Paradise Reyes MD [address] [phone] Discharge Disposition: Auto Discharge Social History Tobacco [...] on filedocumented in this encounter Care Teams Baggage And Mail Agent Relationship Specialty Start Date End Date Manny Boels MD [address] [place] [phone] PCP - General 06/25/08 12/20/08 documented as of this encounter
--- OUTSIDE RECORDS SUMMARY | 2023-12-04 20:22 | XMS_ITS | Encounter Summary ---
Author Organization [facility] Address [address] [place] [address] Care Team Providers Care Freelance Operator Name Role Phone Sugar Lacy MD Primary Care Provider Reason for Visit * Reason Onset Date Comments Medication Problem 03/25/2010 Encounter Details Date Type Department Care Team (Late st Contact Info) Description 03/25/2010 Refill [facility] Pediatric Endocrinology - [facility] [address] [place], [place] [address] Paradise Reyes MD [address] [phone] Medication Problem Social History Tobacco Use Types Packs/Day Years Used Date Smoking Tobacco: Never Assessed Sex and Gender Information Value Date Recorded Sex Assigned at Not on file Gender Identity Female 03/02/2019 11:17 EST Sexual Orientation Not on file documented as of this encounter Miscellaneous Notes * Telephone Encounter - Nancy Cleveland RN - 03/25/2010 0859 EST Called and left message on the phone for momGricelda, that Methimazole is 20 mg, which is 2 X 10 mg tablets, twice a day, as written by Dr. Shannon. * Telephone Encounter - Qing Story - 03/25/2010 0826 EST Enriqueta, please call back to clarify the dosage for her medication, Tiny did not write it down. You can leave a message at their home phone number [phone] documented in this encounter Plan of Treatment Not on file documented as of this encounter Visit Diagnoses Not on filedocumented in this encounter Care Teams Freelance Operator Relationship Specialty Start Date End Date Sugar Lacy MD [facility] [place] [phone] PCP - General 02/27/10 01/26/13 documented as of this encounter
--- OUTSIDE RECORDS SUMMARY | 2023-12-04 20:22 | XMS_ITS | Encounter Summary ---
Author Organization [facility] Address [address] [place] [address] Care Team Providers Care Soil Fertility Specialist Name Role Phone Sugar Lacy MD Primary Care Provider Encounter Details Date Type Department Care Team (Late st Contact Info) Description 04/28/2010 Orders Only [facility] Pediatric Endocrinology - [facility] [address] [place] [address] Paradise Reyes MD [address] [phone] Thyroiditis, autoimmune (Primary Dx) Social History Tobacco Use Types Packs/Day Years Used Date Smoking Tobacco: Never Assessed Sex and Gender Information Value Date Recorded Sex Assigned at Not on file Gender Identity Female 03/02/2019 11:17 EST Sexual Orientation Not on file documented as of this encounter Plan of Treatment Not on file documented as of this encounter Results * T3, TOTAL (05/15/2010 8:25 EDT) T3, Total 128 85 - 188 ng/dL [facility] Blood specimen (specimen) 05/15/2010 8:25 EDT 05/15/2010 8:29 EDT Paradise Reyes MD CHEMISTRY & BLOOD GA S ORDERABLES [facility] [address] [place] [address] * T4 (05/15/2010 8:25 EDT) T4, Total 8.8 5.1 - 9.6 ug/dL [facility] Blood specimen (specimen) 05/15/2010 8:25 EDT 05/15/2010 8:29 EDT Paradise Reyes MD CHEMISTRY & BLOOD GA S ORDERABLES [facility] [address] [place] [address] * T4 FREE (05/15/2010 8:25 EDT) Free T4 1.2 0.8 - 1.5 ng/dL [facility] Blood specimen (specimen) 05/15/2010 8:25 EDT 05/15/2010 8:29 EDT Paradise Reyes MD CHEMISTRY & BLOOD GA S ORDERABLES Performing Organization Address [facility] Co de Phone Number [facility] [address] [place] [address] * (ABNORMAL) TSH (05/15/2010 8:25 EDT) TSH 0.26(L) 0.35 - 5.00 uIU/ml [facility] Blood specimen (specimen) 05/15/2010 8:25 EDT 05/15/2010 8:29 EDT Paradise Reyes MD CHEMISTRY & BLOOD GA S ORDERABLES [facility] [address] [place] [address] documented in this encounter Visit Diagnoses Diagnosis Thyroiditis, autoimmune- Primary Chronic lymphocytic thyroiditis documented in this encounter Care Teams Soil Fertility Specialist Relationship Specialty Start Date End Date Sugar Lacy MD [address] [place] [phone] PCP - General 02/27/10 01/26/13 documented as of this encounter
--- OUTSIDE RECORDS SUMMARY | 2023-12-04 20:22 | XMS_ITS | Encounter Summary ---
Author Organization [facility] Address [address] [place] [address] Care Team Providers Care Workers Compensation Legal Secretary Name Role Phone Sugar Lacy MD Primary Care Provider Encounter Details Date Type Department Care Team (Latest Contact Info) Description 05/15/2010 8:17 EDT - 05/15/2010 23:59 EDT Hospital Encounter [facility] [place] [address] [place] [address] Paradise Reyes MD [address] [phone] Discharge Disposition: Home or Self [...] as needed. Reported on 07/03/2016 05/15/2010 03/19/2017 atomoxetine (STRATTERA) 100 mg capsule Take 100 mg by mouth daily. 12/11/2010 ETHINYL ESTRADIOL/DROSPIRENONE (ZACH 28 ORAL) Take by mouth daily. 05/15/20102010 fluoxetine (PROZAC) 10 mg capsule Take 10 mg by mouth daily. 12/11/2010 loratadine (CLARITIN) 10 mg tablet Take 10 mg by mouth daily. 08/25/2011 methimazole (TAPAZOLE) 10 mg tablet Take 15 mg by mouth 2 times daily. 1.5 tabs in the morning and afternoon. 30 mg total. 05/15/2010 02/16/2011 valACYclovir (VALTREX) 500 mg tabletIndications:herpes labialis Take 500 mg by mouth daily. Indications: HERPES LABIALIS 05/15/2010 04/28/2011 documented as of this encounter Discharge Disposition Disposition Code Departure Means Destination Home or Self Half-Way documented in this encounter Plan of Treatment Not on file documented as of this encounter Visit Diagnoses Not on filedocumented in this encounter Care Teams Workers Compensation Legal Secretary Relationship Specialty Start Date End Date Sugar Lacy MD [address] [place] [phone] PCP - General 02/27/10 01/26/13 documented as of this encounter
--- OUTSIDE RECORDS SUMMARY | 2023-12-04 20:22 | XMS_ITS | Encounter Summary ---
Author Organization [facility] Address [address] [place] [address] Care Team Providers Care Paint Mixer Machine Name Role Phone Sugar Lacy MD Primary Care Provider [phone] Reason for Visit * Reason Onset Date Comments Labs Only 03/07/2010 Encounter Details Date Type Department Care Team (Late st Contact Info) Description 03/07/[address] [facility] Pediatric Endocrinology - [facility] [address] [place] [address] Nancy Cleveland RN [address] [place] [address] Labs Only Social History Tobacco Use Types Packs/Day Years Used Date Smoking Tobacco: Never Assessed Sex and Gender Information Value Date Recorded Sex Assigned at Not on file Gender Identity Female 03/02/2019 11:17 EST Sexual Orientation Not on file documented as of this encounter Miscellaneous Notes * Telephone Encounter - Nancy Cleveland RN - 03/07/2010 1107 EST External lab results entered documented in this encounter Plan of Treatment Not on file documented as of this encounter Procedures Procedure Name Priority Date/Time Associated Diagnosis Comments T3, TOTAL Routine 02/26/2010 10:13 EST TSH Routine 02/26/2010 10:13 EST T4 FREE Routine 02/25/2010 10:13 EST documented in this encounter Results * (ABNORMAL) T3, TOTAL (02/26/2010 10:13 EST) T3 TOTAL, External 281 [facility] Comment:85-188 Blood specimen (specimen) 02/26/2010 10:13 EST Historical Provider CHEMISTRY & BLOOD GAS ORDERABLES Performing Organization Address [facility] Co de Phone Number [facility] * (ABNORMAL) TSH (02/26/2010 10:13 EST) TSH, External 0 [facility] Comment:0.47-4.68 Blood specimen (specimen) 02/26/2010 10:13 EST Historical Provider CHEMISTRY & BLOOD GAS ORDERABLES Performing Organization Address [facility] Co de Phone Number [facility] * T4 FREE (02/25/2010 10:13 EST) Free T4, External 1.87 [facility] Comment:0.78-2.19 Blood specimen (specimen) 02/25/2010 10:13 EST Historical Provider CHEMISTRY & BLOOD GAS ORDERABLES Performing Organization Address [facility] Co de Phone Number [facility] documented in this encounter Visit Diagnoses Not on filedocumented in this encounter Care Teams Paint Mixer Machine Relationship Specialty Start Date End Date Sugar Lacy MD [address] [place] [phone] PCP - General 02/27/10 01/26/13 documented as of this encounter
--- OUTSIDE RECORDS SUMMARY | 2023-12-04 20:22 | XMS_ITS | Encounter Summary ---
Author Organization [facility] Address [address] [place] [address] Care Team Providers Care Stick Roller Name Role Phone Manny Boles MD Primary Care Provider [phone] Sugar Lacy MD Primary Care Provider Encounter Details Date Type Department Care Team (Late st Contact Info) Description 12/30/2007 Before PRISM Converted Visit (Maple) [facility] - Maple conversion [address] [place] [address] Paradise Reyes MD [address] [place] [phone] Social History Tobacco Use Types Packs/Day Years Used Date Smoking Tobacco: Never Assessed Sex and Gender Information Value Date Recorded Sex Assigned at Not on file Gender Identity Female 03/02/2019 11:17 EST Sexual Orientation Not on file documented as of this encounter Progress Notes * Paradise Shannon MD - 09/20/2008 2212 EDT PROGRESS/FOLLOWUP NOTE - 12/30/2007 Sugar Lacy M.D. [facility] [address] [place] [id number] Age: 13 and 3/10 years. Gender: Female. Diagnosis: Hyperthyroidism. Additional Diagnoses: ADHD Mood disorder NOS. Medications: Depo-Provera (last injection 12/27/2007). 2. Strattera. 3. [place] (600 mg/day, will be decreased to 300 mg daily starting tomorrow, and discontinued 2 weeks later). 4. Calcium with vitamin D (600 mg calcium, 400 international units vitamin D). returns today with her mother who contributed to the history for a followup visit of her hyperthyroidism. Tiny was seen about 2 weeks ago with suppressed TSH and high T4 with goiter and without significant signs or symptoms of hyperthyroidism. Following the last visit, Tiny had 123 iodine uptake and scan done which showed low uptake 1.5% (normal 10-30%). She had repeat TFTs which confirmed the results of suppressed TSH and high T4 as well as high T3. She had positive antithyroglobulin antibodies, negative antithyroid peroxidase antibodies, negative TSH receptor antibodies and negative TSI. Since the last visit, Tiny does not have new complaints. She did not notice changes of her neck appearance. She denies fatigue, weight changes, no change in her appetite. She has a cold and stuffynose and she has been feeling a little more cold for last few days. She denies skin changes. She denies change in her bowel movements. She continues to have mild tremor, this has been present for a while. She continues having occasional palpitations not associated with physical activity or stress. Mom thinks that maybe they are occurring more often but resolve without any intervention shortly after starting. Tiny continues having difficulties with concentration at school. She is currently in9th grade and reportedly she is doing a little better academically. She received her Depo-Provera a few days ago. Tiny gets occasional headaches, once a week, not associated with nausea, vomiting or visual changes, not interfering with usual activity, not requiring NSAIDs. She reports shortness of breath and muscle ache with about a quarter of a mile walk. She has not been physically active for a long time. Mother provided additional family history:father has hypothyroidism. The family received a phone call from Dr. Khan yesterday with the recommendation to wean lithium and there is the hope that maybe Tiny would not need any antipsychotic medications at all. She may be doing well with counseling and a team group. On physical exam, height 157 cm (25-50%), weight 68.5 kg (90-07%). Weight is up by almost 1 kg since the last visit. Blood pressure 123/63. HR 75. Tiny is in no acute distress, well hydrated and more engaged in discussion today. She is obese. HEENT: Moist mucous membranes. No tongue fasciculations. No limitation of eye movement. No proptosis, no lid lag, no periorbital or conjunctival edema. Thyroid gland diffusely enlarged about 4 x 4 cmin the longest dimension of each lobe. No nodularity appreciated. No tenderness to palpation. No lymphadenopathy. Respiratory: Clear bilaterally. Cardiovascular: S1 and S2. No murmur. No tachycardia. No hyperdynamic precordium. Distal pulses arepresent. GI benign obese abdomen. No hepatosplenomegaly appreciated. Neurologic Exam: No tremor. No hyperreflexia. Musculoskeletal: No bone deformity. No edema. Skin: Normal turgor, striae. Sexual Exam: Deferred. Impression: 1. 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 2. Goiter. 3. No ophtalmopathy. 4. Clinically no significant change. Not significantly hyperthyroid. Recommendations: A repeat TSH, free T4 and T3 in 1 month when the lithium is stopped. 2. Continue calcium and vitamin D to promote bone health. 3. Followup in 4 months. 4. No strenuous physical activity until euthyroid. The family is going to contact our office if new or more pronounced signs or symptoms of hypo and/or hyperthyroidism are noticed or if the thyroid gland gets enlarged as Tiny is at risk to develophypothyroidism due to her underlying Yanira's thyroiditis. Signed by Paradise Shannon MD 01/10/2008 11:33 Paradise Shannon MD - Paradise Shannon MD P - STACI Job ID: [id number] Doc ID: [id number] cc: [place] [address] * documented in this encounter Plan of Treatment Not on file documented as of this encounter Visit Diagnoses Not on filedocumented in this encounter Care Teams Stick Roller Relationship Specialty Start Date End Date Manny Boles MD [address] [facility] [address] [place] [address] PCP - General 06/25/08 12/20/08 Sugar Lacy MD [address] [place] [id number] PCP - General 06/21/08 06/24/08 documented as of this encounter
--- OUTSIDE RECORDS SUMMARY | 2023-12-04 20:22 | XMS_ITS | Encounter Summary ---
Author Organization [facility] Address [address] [place] [address] Care Team Providers Care Crab Backer Name Role Phone Sugar Lacy MD Primary Care Provider Reason for Visit * Reason Onset Date Comments Labs Only 07/02/2010 Results 07/02/2010 Medication Management 07/02/2010 Encounter Details Date Type Department Care Team (Late st Contact Info) Description 07/02/2010 Telephone [facility] - [facility] [address] [place] [address] Nancy Cleveland RN [address] [place] [address] Labs Only; Results; Medication Management Social History Tobacco Use Types Packs/Day Years Used Date Smoking Tobacco: Never Assessed Sex and Gender Information Value Date Recorded Sex Assigned at Not on file Gender Identity Female 03/02/2019 11:17 EST Sexual Orientation Not on file documented as of this encounter Miscellaneous Notes * Telephone Encounter - Nancy Cleveland RN - 07/02/2010 1324 EDT External lab results entered. Left message on phone for mom, Gricelda, about TFT's. No change in methimazole dose at this time per Dr. Shannon. documented in this encounter Plan of Treatment Not on file documented as of this encounter Procedures Procedure Name Priority Date/Time Associated Diagnosis Comments T3, TOTAL Routine 06/27/2010 6:55 EDT TSH Routine 06/27/2010 6:55 EDT T4 FREE Routine 06/27/2010 6:55 EDT documented in this encounter Results * T3, TOTAL (06/27/2010 6:55 EDT) T3 TOTAL, External [address] [facility] Comment:85-188 Blood specimen (specimen) Historical Provider CHEMISTRY & BLOOD GAS ORDERABLES Performing Organization Address City/[facility]/ZIP Co de Phone Number [facility] * T4 FREE (06/27/2010 6:55 EDT) Free T4, External 0.88 [facility] Comment:0.78-2.19 Blood specimen (specimen) Historical Provider CHEMISTRY & BLOOD GAS ORDERABLES [facility] * (ABNORMAL) TSH (06/27/2010 6:55 EDT) TSH, External 0.08 [facility] Comment:0.47-4.68 Blood specimen (specimen) Historical Provider CHEMISTRY & BLOOD GAS ORDERABLES Performing Organization Address City/[facility]/ZIP Co de Phone Number [facility] documented in this encounter Visit Diagnoses Not on filedocumented in this encounter Care Teams Crab Backer Relationship Specialty [place] [address] [place] [phone] PCP - General 02/27/10 01/26/13 documented as of this encounter
--- OUTSIDE RECORDS SUMMARY | 2023-12-04 20:22 | XMS_ITS | Encounter Summary ---
Author Organization [facility] Address [address] [place] [address] Care Team Providers Care Bead Inspector Name Role Phone Sugar Lacy MD Primary Care Provider Encounter Details Date Type Department Care Team (Late st Contact Info) Description 11/28/2009 Results Only [facility] [address] [place] [address] Paradise Reyes MD [address] [phone] Social History Tobacco Use Types [...] Associated Diagnosis Comments QUANT BETA HCG, Routine 09/28/2011 13:24 EDT COMPREHENSIVE METABOLIC PANEL (CMP) Routine 09/28/2011 13:24 EDT HEMOGLOBIN A1C Routine 04/28/2011 14:00 EST GLUCOSE, SERUM Routine 04/28/2011 14:00 EST THYROTROPIN RECEPTOR ANTIBODY Routine 11/28/2009 12:20 EDT THYROID-STIMULATING IMMUNOGLOBULIN (TSI), SERUM Routine 11/28/2009 12:20 EDT 17 [place]-PROGESTERONE Routine 11/28/2009 12 :20 EDT PROLACTIN Routine 11/28/2009 12:20 EDT DHEA SULFATE Routine 11/28/2009 12:20 EDT ESTRADIOL, ADULTS Routine 11/28/2009 12: 20 EDT ANDROSTENEDIONE Routine 11/28/2009 12:20 EDT TESTOSTERONE, TOTAL AND FREE Routine 11/28/2009 12:20 EDT QUANT BETA HCG, Routine 11/28/2009 12:20 EDT T3, TOTAL Routine 11/28/2009 12:20 EDT TSH Routine 11/28/2009 12:20 EDT T4 FREE Routine 11/28/2009 12:20 EDT HEMOGLOBIN A1C Routine 11/28/2009 12:20 EDT LH Routine 11/28/2009 12:20 EDT FSH Routine 11/28/2009 12:20 EDT COMPREHENSIVE METABOLIC PANEL (CMP) Routine 11/28/2009 12:20 EDT documented in this encounter Results * HCG (09/28/2011 13:24 EDT) Quant Beta HCG, Preg <5 <5 mIU/ml [facility] Comment: Reference Range: Negative = <5 Indeterminate = 5-25 recommend repeat in 48 hours. Positive = >25 09/28/2011 13:2 4 EDT 09/28/2011 13:31 EDT Paradise Reyes MD CHEMISTRY & BLOOD [place] S ORDERABLES [facility] [address] [place] [address] * (ABNORMAL) COMPREHENSIVE METABOLIC PANEL (CMP) (09/28/2011 13:24 EDT) Pathologist [facility] Potassium 3.7 3.5 - 5.0 mEq/L [facility] Sodium 141 136 - 145 mEq/L [facility] Chloride 102 96 - 110 mEq/L [facility] CO2 26 24 - 32 mEq/L [facility] Total Alkaline Phosphatase 80 38 - 126 U/L [facility] Bilirubin, Total <0.5 0.2 - 1.3 mg/dl [facility] AST 17 15 - 46 U/L [facility] ALT 24 9 - 52 U/L [facility] Albumin 3.7 3.4 - 4.9 g/dl [facility] Total Protein 6.4(L) 6.5 - 8.3 g/dl [facility] Creatinine 0.64 0.52 - 1.04 mg/dl [facility] GFR, Calculated >60 >60 ml/min/1.7 3m2 [facility] BUN 8(L) 10 - 26 mg/dl [facility] Calcium 8.9 8.5 - 10.5 mg/dl [facility] Calculated Calcium 9.6 8.5 - 10.5 mg/dl [facility] Glucose, Serum 90 70 - 100 mg/dl [facility] Fasting? Unknown [facility] 09/28/2011 13:2 4 EDT 09/28/2011 13:31 EDT Paradise Reyes MD CHEMISTRY & BLOOD GA S ORDERABLES [facility] [address] [place] [address] * GLUCOSE, SERUM (04/28/2011 14:00 EST) Glucose, Serum 71 70 - 100 mg/dl [facility] 04/28/2011 14:0 0 EST 04/28/2011 14:15 EST Paradise Reyes MD CHEMISTRY & BLOOD GA S ORDERABLES Performing Organization Address [facility] Phone Number [facility] [address] [place] [address] * HEMOGLOBIN A1C (04/28/2011 14:00 EST) Pathologist [facility] Hemoglobin A1C 4.7 % [facility] [...] treatment. Est Avg Glucose 88 mg/dl [facility] Comment: eAG represents the A1c result expressed as average glucose in mg/dl. 04/28/2011 14:0 0 EST 04/28/2011 14:15 EST Paradise Reyes MD CHEMISTRY & BLOOD GA S ORDERABLES Performing Organization Address [facility] Phone Number [facility] [address] [place] [address] * COMPREHENSIVE METABOLIC PANEL (CMP) (11/28/2009 12:20 EDT) Pathologist [facility] Potassium 4.2 3.6 - 5.2 mEq/L [facility] Sodium 140 136 - 145 mEq/L [facility] Chloride 103 96 - 110 mEq/L [facility] CO2 28 24 - 32 mEq/L [facility] Total Alkaline Phosphatase 86 50 - 130 U/L [facility] Bilirubin, Total <0.5 0.0 - 1.4 mg/dl [facility] AST 22 15 - 46 U/L [facility] ALT 31 0 - 45 U/L [facility] Albumin 4.3 3.0 - 5.5 g/dl [facility] Total Protein 6.9 6.3 - 8.6 g/dl [facility] Creatinine 0.68 0.6 - 1.2 mg/dl [facility] GFR, Calculated Age <18 ml/min/1.7 3m2 [facility] BUN 10 8 - 21 mg/dl [facility] Calcium 10.0 8.5 - 10.5 mg/dl [facility] Calculated Calcium 10.1 8.5 - 10.5 mg/dl [facility] Glucose, Serum 74 70 - 100 mg/dl [facility] Fasting? No [facility] Blood specimen (specimen) 11/28/2009 12:20 EDT 11/28/2009 12:22 EDT Paradise Reyes MD CHEMISTRY & BLOOD GA S ORDERABLES Performing Organization Address [facility] de Phone Number [facility] [address] [place] [address] * HCG (11/28/2009 12:20 EDT) HCG <4 <4 mIU/ml [facility] Comment: Reference Range: Positive = >10 Borderline = 4-10 ??recommend repeat. Negative = <4 Blood specimen (specimen) 11/28/2009 12:20 EDT 11/28/2009 12:22 EDT Paradise Reyes MD CHEMISTRY & BLOOD GA S ORDERABLES Performing Organization Address [facility] de Phone Number [facility] [address] [place] [address] * DHEA SULFATE (11/28/2009 12:20 EDT) DHEA Sulfate 188 ug/dl [facility] Blood specimen (specimen) 11/28/2009 12:20 EDT 11/28/2009 12:22 EDT Paradise Reyes MD CHEMISTRY & BLOOD GA S ORDERABLES Performing Organization Address [facility] Co de Phone Number [facility] [address] [place] [address] * ANDROSTENEDIONE (11/28/2009 12:20 EDT) Androstenedione 268Unit: ng/dL -- REFERENCE VALUE -- ? Juan Diego ?Age ?Reference ? Stage ?? (years) ??range ? I ? <9.2 ?<51 ? II ?9.2-13.7 ?42-100 ? III ?10.0-14.4 ?80-190 ? IV ? 10.7-15.6 ?77-225 ? V ?11.8-18.6 ?80-240 ? Performed or Referred by: [facility] Dpt of Lab Med and Path, [address] [place] [address], Lab Dir: Surinder Mackay III, ? MD ? [facility] Blood specimen (specimen) 11/28/2009 12:20 EDT 11/28/2009 12:22 EDT Paradise Reyes MD CHEMISTRY & BLOOD GA S ORDERABLES [facility] [address] [place] [address] * (ABNORMAL) TOTAL & FREE TESTOSTERONE (11/28/2009 12:20 EDT) Sex Hormone Binding Globulin 44.5 nmol/L [facility] Comment:Reference range is f or non- females. Testosterone, Total 78(H) 14 - 76 ng/dL [facility] Testosterone, Free 1.2 ng/dl [facility] Comment:Test not recommended in patients with plasma protein abnormalities. Blood specimen (specimen) 11/28/2009 12:20 EDT 11/28/2009 12:22 EDT Paradise Reyes MD CHEMISTRY & BLOOD GA S ORDERABLES Performing Organization Address [facility] de Phone Number [facility] [address] [place] [address] * ESTRADIOL (11/28/2009 12:20 EDT) Estradiol 89 pg/ml [facility] Comment: By day in cycle relative to LH peak: Follicular Phase: -12 days: 11-69 ? -4 days: 63-165 Midcycle ?-1 day: 146-526 Luteal Phase ? +2 days: 33-150 ? +6 days: 68-196 ?+12 days: 36-133 Postmenopausal: ??0-37 Blood specimen (specimen) 11/28/2009 12:20 EDT 11/28/2009 12:22 EDT Paradise Reyes MD CHEMISTRY & BLOOD GA S ORDERABLES Performing Organization Address [facility] de Phone Number [facility] [address] [place] [address] * FSH (11/28/2009 12:20 EDT) FSH 5.1 mIU/ml [facility] Comment:Follicular: 2-11 Mid -Cycle Peak: 3.4-35 Luteal: 1-9 Postmenopausal: 25-120 Blood specimen (specimen) 11/28/2009 12:20 EDT 11/28/2009 12:22 EDT Paradise Reyes MD CHEMISTRY & BLOOD GA S ORDERABLES Performing Organization Address City/[facility] de Phone Number [facility] [address] [place] [address] * LH (11/28/2009 12:20 EDT) Pathologist [facility] 6.1 mIU/ml [facility] Comment:Follicular: 1-18 Mid -Cycle Peak: 15-80 Luteal: 0.5-18 Postmenopausal: 12-55 Blood specimen (specimen) 11/28/2009 12:20 EDT 11/28/2009 12:22 EDT Paradise Reyes MD CHEMISTRY & BLOOD GA S ORDERABLES Performing Organization Address [facility] de Phone Number [facility] [address] [place] [address] * 17 OH-PROGESTERONE (11/28/2009 12:20 EDT) Pathologist [facility] 17-Hydroxypro gesterone 63Unit: ng/dL -- REFERENCE VALUE -- ? < 80 (Pubertal and Adult- ?Follicular) ? <285 (Pubertal and Adult- ?Luteal) ? Performed or Referred by: [facility] Dpt of Lab Med and Path, [address] [facility], [place] [address], Lab Dir: Surinder Mackay III, ? MD ? [facility] Blood specimen (specimen) 11/28/2009 12:20 EDT 11/28/2009 12:22 EDT Paradise Reyes MD CHEMISTRY & BLOOD GA S ORDERABLES Performing Organization Address [facility] de Phone Number [facility] [address] [place] [address] * PROLACTIN (11/28/2009 12:20 EDT) Pathologist [facility] Prolactin 5.4 ng/ml [facility] Comment:Non-: 2.8-29 .2 : 9.7-208.5 Post Menopausal: 1.8-20.3 Blood specimen (specimen) 11/28/2009 12:20 EDT 11/28/2009 12:22 EDT Paradise Reyes MD CHEMISTRY & BLOOD GA S ORDERABLES Performing Organization Address [facility] de Phone Number [facility] [address] [place] [address] * HEMOGLOBIN A1C (11/28/2009 12:20 EDT) Hemoglobin A1C 4.9 % [facility] Comment: Shortened red blood cell survival will decrease Hemoglobin A1C values. ?? Reference Range: <5.7% Normal 5.7-6.4% Increased risk for diabetes =>6.5% Diagnostic for diabetes (if confirmed) ?? The A1c goal for non adults in general is <7%. ?? The A1c goal for selected patients may be significantly lower than 7% if this can be achieved without significant hypoglycemia or other adverse effects of treatment. Est Avg Glucose 94 mg/dl [facility] Comment:eAG represents the A 1c result expressed as average glucose in mg/dl. Blood specimen (specimen) 11/28/2009 12:20 EDT 11/28/2009 12:22 EDT Paradise Reyes MD CHEMISTRY & BLOOD GA S ORDERABLES Performing Organization Address City/State/[facility] Co de Phone Number [facility] [address] [place] [address] * (ABNORMAL) THYROTROPIN RECEPTOR ANTIBODY (11/28/2009 12:20 EDT) Thyrotropin Receptor Ab 2.28Reference range: 0.00 to 1.75 Unit: IU/L At a decision limit of 1.75 IU/L, this assay has 97% ? sensitivity and 99% specificity for detection of Graves' ? disease. In healthy individuals and in patients with ? thyroid disease without diagnosis of Graves' disease, the ? upper limit of anti-TSHR values are 1.22 IU/L and 1.58 ? IU/L, respectively (97.5th percentiles). ? Performed by: [facility] Dpt Lab Med and Path [address] , [address] , [place] [address], Lab Dir: ??Surinder Mackay ? Bautista CANALES ?(H) [facility] Blood specimen (specimen) 11/28/2009 12:20 EDT 11/28/2009 12:22 EDT Paradise Reyes MD CHEMISTRY & BLOOD GA S ORDERABLES Performing Organization Address [facility] de Phone Number [facility] [address] [place] [address] * (ABNORMAL) THYROID-STIMULATING IMMUNOGLOBULIN (TSI), SERUM (11/28/2009 12:20 EDT) Thyroid Stimulating Immunoglobulin 1.9Reference range: <=1.3 Unit: TSI index Performed or Referred by: [facility] Dpt of Lab Med and Path, [address], [place] [address], Lab Dir: Surinder Mackay III, MD(H) [facility] Blood specimen (specimen) 11/28/2009 12:20 EDT 11/28/2009 12:22 EDT Paradise Reyes MD CHEMISTRY & BLOOD GA S ORDERABLES Performing Organization Address [facility] de Phone Number [facility] [address] [place] [address] * T3, TOTAL (11/28/2009 12:20 EDT) T3, Total 127 85 - 188 ng/dL [facility] Blood specimen (specimen) 11/28/2009 12:20 EDT 11/28/2009 12:22 EDT Paradise Reyes MD CHEMISTRY & BLOOD GA S ORDERABLES Performing Organization Address [facility] Co de Phone Number [facility] [address] [place] [address] * T4 FREE (11/28/2009 12:20 EDT) Free T4 1.1 0.8 - 1.5 ng/dL [facility] Blood specimen (specimen) 11/28/2009 12:20 EDT 11/28/2009 12:22 EDT Paradise Reyes MD CHEMISTRY & BLOOD GA S ORDERABLES Performing Organization Address [facility] Co de Phone Number [facility] [address] [place] [address] * (ABNORMAL) TSH (11/28/2009 12:20 EDT) TSH <0.02(L) 0.35 - 5.00 uIU/ml [facility] Blood specimen (specimen) 11/28/2009 12:20 EDT 11/28/2009 12:22 EDT Paradise Reyes MD CHEMISTRY & BLOOD GA S ORDERABLES Performing Organization Address [facility] de Phone Number [facility] [address] [place] [address] documented in this encounter Visit Diagnoses Not on filedocumented in this encounter Care Teams Bead Inspector Relationship Specialty Start Date End Date Sugar Lacy MD [address] [place] [address] PCP - General 06/24/09 12/01/09 documented as of this encounter
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
--- OUTSIDE RECORDS SUMMARY | 2023-12-04 20:22 | XMS_ITS | Encounter Summary ---
Author Organization [facility] Address [address] [place] [address] Care Team Providers Care Vice President Compliance Name Role Phone Sugar Lacy MD Primary Care Provider [phone] Reason for Visit * Reason Comments Thyroid Problem Encounter Details Date Type Department Care Team (Latest Contact Info) Description 05/15/2010 8:45 EDT Office Visit [facility] [address] [place] [address] Paradise Reyes MD [address] [phone] Thyroiditis, autoimmune; Obesity; Acanthosis nigricans; Vitamin D deficiency; Irregular periods/menstrual cycles Social History Tobacco Use Types Packs/Day Years Used Date Smoking Tobacco: Never Assessed Sex and Gender Information Value Date Recorded Sex Assigned at Not on file Gender Identity Female 03/02/2019 11:17 EST Sexual Orientation Not on file documented as of this encounter Last Filed Vital Signs Vital Sign Reading Time Taken Comments Blood Pressure 128/71 05/15/2010 0855 EDT Pulse 75 05/15/2010 0855 EDT Temperature - - Respiratory Rate - - Oxygen Saturation - - Inhaled Oxygen Concentration - - Weight 80.8 kg (178 lb 2.1 oz) 05/15/2010 0855 E DT Height 158.8 cm (5' 2.52) 05/15/2010 0855 EDT Body Mass Index 32.04 05/15/2010 0855 EDT Body Mass Index Percentile 96.56% 05/15/2010 085 5 EDT Growth Chart: [facility] (Girls, 2- 20 Years) documented in this encounter Progress Notes * Paradise Shannon MD - 05/15/2010 0945 EDT PROGRESS/FOLLOWUP NOTE - 05/15/2010 DIVISION OF PEDIATRIC ENDOCRINOLOGY AGE: 14 and [birth year]09. GENDER: Female. DIAGNOSIS: Autoimmune thyroiditis Obesity, acanthosis nigricans History of irregular periods. ADDITIONAL DIAGNOSES: Depression, mood disorder NOS. Exercise-induced asthma. MEDICATIONS: reviewed in electronic medical records Methimazole 15 mg PO BID ALLERGIES: Seasonal, NKDA. SUBJECTIVE: Tiny returned today for a followup visit of her autoimmune thyroiditis accompanied by her motherwho contributed to the history. Tiny was started on Methimazole following her last visit due to biochemical hyperthyroidism in the view of high antibodies specific for Graves' disease (although she had low radioiodine uptake 12/06 when she initially presented; had negative Abs at that time); she has had mild symptoms suggestive of hyperthyroidism as well . Shortly after methimazole was started, Tiny complained of shortness of breath, choking like feeling, most likely related to anxiety attack with quick resolution and no recurrence. She has been well otherwise with no reported interval illnesses. Mom believes that she has been calmer, does better at school as far as her attention span and irritability overall. Tiny denies changes of her neck appearance, no voice changes, no tremor or palpitations, no change of bowel movements. Her appetite decreased, I usually eat less during spring and summer; she has not been physically active, walks to and from school, has no other exercise. Tiny complains of morning nausea with no emesis, no clear triggers. It usually resolves as the day progresses. Since she re-started on OCPs, her acne improved. Tiny continues to have mild headaches; she was seen by an configuration consultant, needs new glasses. Headaches typically are not associated with nausea or vomiting, do not interfere with her sleep. Tiny denies temperature intolerance; is not aware of increased skin pigmentation or other skin chnages. Tiny denies tremor, or palpitations or excessive sweating, she does not report pain with eye movement. Tiny denies polyuria, polydipsia or nocturia; mother believes that Tiny does not drink enough. The rest of the systems were reviewed and they were negative. PMhx, Social Hx, F Hx were reviewed in electronic medical records. Tiny attends the 11th grade. So far she is doing well at school. LABS: 03/17/10: TSH < 0.02, free T4 2.4 (0.8-1.5), T4 15, T3 285 (85-188) CMP normal, AST 17, ALT 32 04/25/10 (EXTERNAL LABS) TSH 1.01, free T4 0.59 (0.78-2.19), T3 98 (85-188) OBJECTIVE: BP 128/71 Pulse 75 Ht 158.8 cm (62.52) Wt 80.8 kg (178 lb 2.1 oz) BMI 32.04 kg/m2 Tiny is an obese, pleasant young adolescent, [...] Good muscle tone and strength, no tremor, increased DTRs, no tremor of upper extremities. No tongue fasciculations. Musculoskeletal: No clubbing, no bone deformity. Skin: Normal temperature and texture. A few acne lesions on the face. No bald spots, no hyperpigmentations. Sexual exam: Deferred. 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 On anti-thyroid medication with reported excellent compliance, no evidence of side effects. Clinically euthyroid. Vitamin D insufficiency; off supplementation. Obesity, minimal interval weight loss. RECOMMENDATIONS: 1. Labs today: TSH, free T4, total T3 2. Continue antithyroid medication at current dose, pending labs. 3. Labs locally in 1.5 months (Rx given for TFTs). 4. Follow up in 3 months with labs at the visit. 5. Should restart vitamin D supplementation. 6. Most common side effects of antithyroid medication were reviewed again. 7. Bone health reviewed, including at a min. 30 min. Of exercise x 5-7 times/week. * Paradise Shannon MD - 05/15/2010 0943 EDT errort documented in this encounter Plan of Treatment Not on file documented as of this encounter Visit Diagnoses Diagnosis Thyroiditis, autoimmune Chronic lymphocytic thyroiditis Obesity Obesity, unspecified Acanthosis nigricans Acquired acanthosis nigricans Vitamin D deficiency Unspecified vitamin D deficiency Irregular periods/menstrual cycles Irregular menstrual cycle documented in this encounter Discontinued Medications Medication Sig Discontinue Reason Start Date End Da te albuterol (ACCUNEB) 0.63 mg/3 mL nebulizer solution Take 0.63 mg by nebulization as needed. Error 03/10/2010 05/15/2010 methimazole (TAPAZOLE) 10 mg tabletIndications:Thy roiditis, autoimmune,Obesity,Ac anthosis nigricans,Vitamin D deficiency,Irregular periods/menstrual cycles Take 2 Tabs by mouth 2 times daily for 180 days. Duplicate Therapy 03/19/2010 05/15/2010 documented as of this encounter Historical Medications * This list may reflect changes made after this encounter. Medication Sig Dispensed Refills Start Date End Date methimazole (TAPAZOLE) 10 mg tablet Take 15 mg by mouth 2 times daily. 1.5 tabs in the morning and afternoon. 30 mg total. 05/15/2010 02/16/2011 ETHINYL ESTRADIOL/DROSPIRENONE (ZACH 28 ORAL) Take by mouth daily. 05/15/20102010 ALBUTEROL INHL Inhale as directed as needed. Reported on 07/03/2016 05/15/2010 03/19/2017 added in this encounter Care Teams Vice President Compliance Relationship Specialty Start Date End Date Sugar Lacy MD [facility] [place] [phone] PCP - General 02/27/10 01/26/13 documented as of this encounter
--- OUTSIDE RECORDS SUMMARY | 2023-12-04 20:23 | XMS_ITS | Encounter Summary ---
Author Organization [facility] Address [address] [place] [address] Care Team Providers Care Contract Negotiator Name Role Phone Unavailable Primary Care Provider Unavailabl e Encounter Details Date Type Department Care Team (Latest Contact Info) Description 12/15/2007 9:14 EDT - 12/15/2007 11:59 EDT Hospital Encounter [facility] [address] [place] [address] Paradise Reyes MD [address], [place] [address] Discharge Disposition: Auto Discharge Social History [...] Diagnosis Comments NM THYROID UPTAKE + SCAN 12/16/2007 11:04 EDT TEST, URINE Routine 12/15/2007 11:36 EDT THYROTROPIN RECEPTOR ANTIBODY Routine 12/15/2007 11:35 EDT THYROID-STIMULATING IMMUNOGLOBULIN (TSI), SERUM Routine 12/15/2007 11:35 EDT COMPLETE BLOOD COUNT AND DIFFERENTIAL Routine 12/15/2007 11:35 EDT T3, TOTAL Routine 12/15/2007 11:35 EDT TSH Routine 12/15/2007 11:35 EDT THYROID ANTIBODIES Routine 12/15/2007 11 :35 EDT T4 FREE Routine 12/15/2007 11:35 EDT T4 Routine 12/15/2007 11:35 EDT HEPATIC FUNCTION PANEL (ALB,ALK PHOS,ALT,AST,DBIL,TOT HARDEEP,TOT PROT) Routine 12/15/2007 11:35 EDT documented in this encounter Results * NM THYROID UPTAKE + SCAN (12/16/2007 11:04 EDT) Anatomical Region Laterality Modality Other 12/16/2007 11:0 4 EDT Narrative 07/16/2008 7:58 EDT decrease tsh and increase ft4, early graves disease and hashimotoxicosis vs toxi noduler goiter. scan to help identify the cause of hyperthyroidism Nuclear medicine thyroid uptake and scan 16 December 2007 at 10: 32 hours History: 12-year-old female with decreased thyroid-stimulating hormone and increased T4. Possibly early Graves' disease versus thyrotoxicosis versus toxic nodular goiter. Technique: 24 hours after oral administration of 200 uCi I-123 capsule, anterior imaging of the thyroid gland was obtained with a pinhole collimator. 22-hour uptake was calculated. Findings: There is low radiotracer uptake within the thyroid gland in a homogeneous distribution. Quantitative uptake is 1.5%. (Normal uptake is between 10 percent and 30%. Impression: Low iodine uptake is consistent with thyroiditis, either subacute or a stage of Yanira's thyroiditis. I have personally reviewed the images and the above interpretation and agree with the findings. Procedure Note Kingsley Nicole MD / Jean-Claude Kearns MD - 07/16/2008 decrease tsh and increase ft4, early graves disease and hashimotoxicosis vs toxi noduler goiter. scan to help identify the cause of hyperthyroidism Nuclear medicine thyroid uptake and scan 16 December 2007 at 10: 32 hours History: 12-year-old female with decreased thyroid-stimulating hormone and increased T4. Possibly early Graves' disease versus thyrotoxicosis versus toxic nodular goiter. Technique: 24 hours after oral administration of 200 uCi I-123 capsule, anterior imaging of the thyroid gland was obtained with a pinhole collimator. 22-hour uptake was calculated. Findings: There is low radiotracer uptake within the thyroid gland in a homogeneous distribution. Quantitative uptake is 1.5%. (Normal uptake is between 10 percent and 30%. Impression: Low iodine uptake is consistent with thyroiditis, either subacute or a stage of Yanira's thyroiditis. I have personally reviewed the images and the above interpretation and agree with the findings. Sugar Lacy MD [facility] [place]LES * TEST, URINE (12/15/2007 11:36 EDT) Result Neg [facility] 12/15/2007 11:3 6 EDT 12/15/2007 11:37 EDT Paradise Reyes MD URINALYSIS ORDERABLE S Performing Organization Address City/State/[facility] Co de Phone Number [facility] [address] [place] [address] * THYROID-STIMULATING IMMUNOGLOBULIN (TSI), SERUM (12/15/2007 11:35 EDT) Thyroid Stimulating Immunoglobulin <1.0Reference range: <=1.3 Unit: TSI index Performed or Referred by: [facility] Dpt of Lab Med and Path, [address] , [place] [address], Lab Dir: MD [facility] 12/15/2007 11:3 5 EDT 12/15/2007 11:36 EDT Paradise Reyes MD CHEMISTRY & BLOOD GA S ORDERABLES Performing Organization Address City/State/[facility] de Phone Number [facility] [address] [place] [address] * THYROTROPIN RECEPTOR ANTIBODY (12/15/2007 11:35 EDT) Thyrotropin Receptor Ab 11Unit: % Index -- REFERENCE VALUE -- ? <16 (Negative) ? >= 16 (Positive) ? Performed or Referred by: [facility] Dpt of Lab Med and Path, [address] [place] [id number], Lab Dir: Surinder Mackay III, ? MD ? [facility] 12/15/2007 11:3 5 EDT 12/15/2007 11:36 EDT Paradise Reyes MD CHEMISTRY & BLOOD GA S ORDERABLES Performing Organization Address [facility] de Phone Number [facility] [address] [place] [address] * (ABNORMAL) THYROID ANTIBODIES (12/15/2007 11:35 EDT) Thyroglobulin Ab 193(H) 0 - 40 IU/mL [facility] Thyroid Peroxidase Ab <10 <35 IU/mL [facility] 12/15/2007 11:3 5 EDT 12/15/2007 11:36 EDT Paradise Reyes MD CHEMISTRY & BLOOD GA S ORDERABLES Performing Organization Address [facility] de Phone Number [facility] [address] [place] [address] * (ABNORMAL) TSH (12/15/2007 11:35 EDT) Pathologist [facility] TSH <0.02(L) 0.35 - 5.00 uIU/mL [facility] 12/15/2007 11:3 5 EDT 12/15/2007 11:36 EDT Paradise Reyes MD CHEMISTRY & BLOOD GA S ORDERABLES Performing Organization Address [facility] Phone Number [facility] [address] [place] [address] * (ABNORMAL) T4 (12/15/2007 11:35 EDT) T4, Total 16.0(H) 5.2 - 10.0 ug/dL [facility] 12/15/2007 11:3 5 EDT 12/15/2007 11:36 EDT Paradise Reyes MD CHEMISTRY & BLOOD GA S ORDERABLES Performing Organization Address [facility] Phone Number [facility] [address] [place] [address] * LIVER FUNCTION TESTS (12/15/2007 11:35 EDT) Pathologist [facility] Albumin 4.3 3.0 - 5.5 g/dl [facility] Total Protein 6.6 6.3 - 8.6 g/dl [facility] Alkaline Phosphatase 80 70 - 230 U/L [facility] ALT 25 5 - 30 U/L [facility] AST 20 16 - 38 U/L [facility] Unconjugated Bilirubin 0.3 0.1 - 1.1 mg/dl [facility] Conjugated Bilirubin 0.0 0.0 - 0.3 mg/dl [facility] Bilirubin, Total <0.5 0.0 - 1.4 mg/dl [facility] 12/15/2007 11:3 5 EDT 12/15/2007 11:36 EDT Paradise Reyes MD CHEMISTRY & BLOOD GA S ORDERABLES Performing Organization Address [facility] Co de Phone Number [facility] [address] [place] [address] * (ABNORMAL) T3, TOTAL (12/15/2007 11:35 EDT) T3, Total 370(H) 86 - 199 ng/dL [facility] 12/15/2007 11:3 5 EDT 12/15/2007 11:36 EDT Paradise Reyes MD CHEMISTRY & BLOOD GA S ORDERABLES Performing Organization Address [facility] de Phone Number [facility] [address] [place] [address] * (ABNORMAL) T4 FREE (12/15/2007 11:35 EDT) Free T4 3.8(H) 0.8 - 1.5 ng/dL [facility] 12/15/2007 11:3 5 EDT 12/15/2007 11:36 EDT Paradise Reyes MD CHEMISTRY & BLOOD GA S ORDERABLES Performing Organization Address [facility] Co de Phone Number [facility] [address] [place] [address] * (ABNORMAL) HEMAGRAM AND DIFFERENTIAL (12/15/2007 11:35 EDT) WBC 5.27 4.5 - 13.0 K/cmm [facility] RBC 4.10 4.10 - 5.10 M/cmm [facility] Hemoglobin 11.8(L) 12.0 - 16.0 gm/dl [facility] HCT 34.8(L) 36.0 - 46.0 % [facility] MCV 85 78 - 102 fl [facility] MCH 28.8 pg [facility] MCHC 34.0 gm/dl [facility] PLT 268 156 - 312 K/cmm [facility] RDW-CV 12.1 % [facility] Neutrophils 65.2 % [facility] Lymphocytes 22.6 % [facility] Monocytes 9.4 % [facility] Eosinophils 2.4 % [facility] Basophils 0.4 % [facility] ABS Neutrophils 3.44 K/cmm [facility] ABS Lymphs 1.19 K/cmm [facility] ABS Monocytes 0.49 K/cmm [facility] ABS Eosinophils 0.13 K/cmm [facility] ABS Basophils 0.02 K/cmm [facility] Type of Diff: Automated [facility] 12/15/2007 11:3 5 EDT 12/15/2007 11:36 EDT Paradise Reyes MD PACKAGES & DNA PROBE ORDERABLES [facility] [address] [place] [address] documented in this encounter Visit Diagnoses Not on filedocumented in this encounter
--- OUTSIDE RECORDS SUMMARY | 2023-12-04 20:23 | XMS_ITS | Encounter Summary ---
Author Organization [facility] Address [address] [place] [address] Care Team Providers Care Sulfuric Acid Plant Operator Name Role Phone Unavailable Primary Care Provider Unavailabl e Encounter Details Date Type Department Care Team (Late st Contact Info) Description 12/15/2007 16:38 EDT Hospital Encounter [facility] [address] [place] [address] Sugar Lacy MD [address] [place] [address] Social History Tobacco Use Types Packs/Day Years [...] in the Last Year Never true 11/07/2019 [place] Depression Scale Answer Date Recorded [place] Depression Scale Total 21 09/17/2021 The thought [...]
[2023-12-04 21:23] VITALS: BP 143/83; PULSE 68; RESP 16; TEMP 36.3; O2SAT 100
[2023-12-04] MEDS: Fluconazole 150 MG TAB PO (21:50)
--- NOTE | 2023-12-04 22:14 | NUR.NOTE ---
I was in her chart to double check to be sure I documented her vital signs.
== END 2023-12-04 21:56 | disposition home or self-care (01) ==
PROVIDERS: Emergency Provider Nurse Practitioner Family; PCP Nurse Practitioner Family
DX: B37.31 Acute candidiasis of vulva and vagina (principal)
CPT/HCPCS: 81025; 99283; 87480; 87510; 87660

== ENCOUNTER 2023-12-27 03:06 | Emergency (ER) | payer MEDICAID, SELFPAY ==
--- NOTE | 2023-12-27 03:08 | W.ED.GENAD ---
Discharge Plan Disposition Patient Disposition: Home Condition: Good Discharge Details Clinical Impression: Pharyngitis Primary Care Provider: DAYAN MOJICA ED Provider: Ariel Adler [place] Meds and New Rx's Prescriptions: Continued levothyroxine 150 mcg tablet 250 mcg PO DAILY Patient Comments: pt reports she is taking 250 mcg valacyclovir [Valtrex] 500 mg tablet 500 mg PO DAILY Qty: 90 4RF levonorgestrel-ethinyl estrad 0.1-20 mg-mcg tablet 1 tab PO DAILY Qty: 84 6RF Rx Instructions: Skip the placebo pills and start the next pack right away to use in a continuous fashion. ProAir RespiClick 90 mcg/actuation aerosol powdr breath activated 2 inh inhalation Q6H PRN (Reason: shortness of breath or wheezing) Qty: 1 0RF acetaminophen 500 mg tablet 500 mg PO Q6H PRN (Reason: pain) Qty: 60 2RF Discharge Instructions Instructions: Sore Throat, Adult ED Additional Instructions: You were seen for a sore throat. Currently your rapid strep is negative and a strep culture is pending. Your nasal swab is negative for flu, COVID, RSV. Drink plenty of fluids to stay hydrated. Alternate acetaminophen with ibuprofen as needed for pain or fever. Salt water gargles and Cepacol lozenges will likely help your pain. Follow-up with your primary care physician next week if you are not improving. Return to ED for difficulty breathing, inability to swallow, mental status change, persistent vomiting, other concerns. Referrals: DAYAN MOJICA, CORE WORKER [Primary Care Provider] - [facility] General Mode of arrival: ambulatory. Date/Time Provider Initiated Documentation: 12/27/23 03:07. Limitations to Documentation: no limitations. Information obtained by: patient and RN notes reviewed. HPI Narrative: Patient presents to ED with a sore throat which she woke up with about an hour ago. She reports that her boyfriend is home ill. She woke up with a sore throat thought she saw white spots and came in for evaluation. She denies fever. She has slight cough. She had some nausea before bed but otherwise felt fine. Denies any difficulty breathing or chest pain. Related Data Home Medications ?Medication ?Instructions ?Recorded ?Confirmed acetaminophen 500 mg tablet 500 mg PO Q6H PRN pain #60 tabs 03/10/22 12/27/23 levothyroxine 150 mcg tablet 250 mcg PO DAILY 02/08/23 12/27/23 valacyclovir 500 mg tablet 500 mg PO DAILY #90 tabs 05/04/23 12/27/23 (Valtrex) albuterol sulfate 90 mcg/actuation 2 inh inhalation Q6H PRN shortness 05/17/23 12/27/23 breath activated powder inhaler of breath or wheezing #1 ea (ProAir RespiClick) levonorgestrel-ethinyl estradiol 1 tab PO DAILY #84 tabs 11/18/23 12/27/23 0.1 mg-20 mcg tablet Previous Rx's ?Medication ?Instructions ?Recorded acetaminophen 500 mg tablet 500 mg PO Q6H PRN pain #60 tabs 03/10/22 valacyclovir 500 mg tablet 500 mg PO DAILY #90 tabs 05/04/23 (Valtrex) albuterol sulfate 90 mcg/actuation 2 inh inhalation Q6H PRN shortness 05/17/23 breath activated powder inhaler of breath or wheezing #1 ea (ProAir RespiClick) levonorgestrel-ethinyl estradiol 1 tab PO DAILY #84 tabs 11/18/23 0.1 mg-20 mcg tablet Allergies Allergy/AdvReac Type Severity Reaction Status Date / Time No Known Allergies Allergy Verified 12/27/23 03:15 General JEANETTE: 3 Review of Systems Narrative: Per HPI Exam Narrative Exam Narrative: Const: WDWN female in NAD. VS per triage. HEENT: NC/AT. Normal facial exam. TMs clear bilaterally. Oropharynx with no edema, exudate, ulcerations. Neck: Supple. Trachea midline. Lungs: Normal respiratory effort. Lungs are clear. Cor: RRR without murmur. Neuro: A+O x 3. Normal speech, mentation, gait. Cranial nerves II - XII grossly intact. No gross motor or sensory deficit. Medical Decision Making Patient presenting to ED with complaint of sore throat. Also reports a slight cough but no chest pain or shortness of breath. She is afebrile and looks well. She has no significant edema, exudate, ulcerations in her oropharynx. [id number] strep and Fluvid sent. Rapid strep is negative as it Fluvid. Throat culture is pending. Patient will be discharged home with supportive care and follow-up with PCP. Return precautions provided. Lab Data Lab results reviewed: Yes I reviewed the patient's lab results. PFSH All Active Problems (Updated 12/27/23 @ 04:03 by Ariel Adler MD) Pharyngitis (Acute) Elevated liver enzymes (Acute) Fatty liver (Acute) incidental finding, patient reports she was heavy drinker in past and is aware of this finding History of radioactive iodine thyroid ablation (Acute) age 14 Hypothyroidism (Chronic) see Carlos Nuñez MD, diagnosed age 12, graves disease Medical History Hx of Helicobacter infection History of Graves' disease History of marijuana use Carpal tunnel syndrome, left H/O cold sores De Quervain's tenosynovitis, left Recurrent genital HSV (herpes simplex virus) infection History of gestational diabetes Will need 2hr GTT 8wks pp - end of July Depression ADHD (attention deficit hyperactivity disorder) evaluation Asthma Surgical History Carpal tunnel syndrome, right S/P ECTR: 03/10/2022 De Quervain's tenosynovitis, right S/P Release: 03/10/2022 History of carpal tunnel surgery of right wrist History of esophagogastroduodenoscopy (EGD) (~06/2020) H/O endoscopic retrograde cholangiopancreatography (~06/17/20) History of cholecystectomy (~02/15/20) Family History Father Yanira's disease Hypertension Diabetes Mother Hypertension Retinal disease Kidney stones Brother Autism Retinal disease Oppositional defiant behavior Brother Retinal disease Brother Autism half brother Niece Autism high functioning Nephew Autism Social History Smoking/Tobacco Use Status: Never Smoking risk assessment performed?: Yes Alcohol Intake: former Details: heavy drinking age [age]. Denies use now. Drug use: Current Sobriety Substance use type: former substance user Details: Not since finding out about Housing: apartment Current gender identity: female Do you feel safe at home: Yes Do you feel safe in your relationship?: Yes Female Reproductive History Menstrual control method: none History History 3 Para 3 Hx # Term Pregnancies 3 Multiple births 0 Hx # Pregnancies 0 Ectopic pregnancies 0 AB induced 0 Hx Number of Living Children 3 AB spontaneous 0 Past Pregnancies Del. Date GA/Weeks # Preg Succ Route Wgt Sex Labor Lgth Anesthesia Location Prov Complic 08/08/17 40 No vaginal 3827.186 g Female [facility], vanishing twin 08/07/21 39 No Yes 3456 g [facility] 06/21/23 39 Yes vaginal 3316.894 g Female [facility] [place] Delivery Date: 08/08/17 Last Updated by: Sarah Doherty Spont labor, epidural, Jailyn Delivery Date: 08/07/21 Last Updated by: Sarah Doherty GDM, GHTN, IOL, epidural worked poorly. Luanne Delivery Date: 06/21/23 Last Updated by: Britt Us MD [facility] [place]
[2023-12-27 03:09] VITALS: BP 148/82; PULSE 72; RESP 16; TEMP 36.1; O2SAT 100
[2023-12-27 03:58] LABS: COVID-19 PCR Negative (Negative); Influenza A PCR Negative (Negative); Influenza B PCR Negative (Negative); RSV PCR Negative (Negative)
[2023-12-27 04:01] LABS: Source Nasopharynx
== END 2023-12-27 04:07 | disposition home or self-care (01) ==
LOC: ER 04:10
PROVIDERS: Emergency Provider Emergency Medicine; PCP Nurse Practitioner Family
DX: J02.9 Acute pharyngitis, unspecified (principal)
CPT/HCPCS: 87637; 87880; 99283; 87081

== ENCOUNTER 2024-05-29 14:38 | Outpatient (CLI) | payer MEDICAID, SELFPAY ==
[2024-05-29 14:50] LABS: FREE T4 1.56 ng/dL (0.76-1.46); TSH 0.31 uIU/mL (0.36-3.74)
== END 2024-05-29 14:39 | disposition home or self-care (01) ==
LOC: LBO 14:39
PROVIDERS: PCP Nurse Practitioner Family; Visit Provider Internal Medicine Endocrinology, Diabetes & Metabolism
DX: E89.0 Postprocedural hypothyroidism (principal)
CPT/HCPCS: 36415; 84439; 84443

== ENCOUNTER 2024-06-09 13:26 | Outpatient (CLI) | payer MEDICAID, SELFPAY ==
--- NOTE | 2024-06-09 13:45 | DI.US_ITS ---
Exam(s) US RENAL EXAM: US RENAL CLINICAL HISTORY: pain R10.9 RT SIDED ABD PAIN. TECHNIQUE: Bright scale imaging and color doppler were used. COMPARISON: No exams were available for comparison FINDINGS: Right kidney: 11.7cm Echogenicity: Normal Hydronephrosis: No Cyst or mass: No Nephrolithiasis: No Left kidney: 11.3cm Echogenicity: Normal Hydronephrosis: No Cyst or mass: No Nephrolithiasis: No Bladder:Normal. Both ureteral jets were visualized. Prevoid vol:222 cc Postvoid vol:0 cc IMPRESSION: Negative renal ultrasound. DATA REPOSITORY:
--- NOTE | 2024-06-09 13:45 | DI.US_ITS ---
Exam(s) US OB 1ST TRIMESTER EXAM: US OB 1ST TRIMESTER CLINICAL HISTORY: r/o ectopic R10.2 PELVIC PERINEAL PAIN. COMPARISON: No exams were available for comparison TECHNIQUE: Transabdominal Transvaginal first trimester obstetrical ultrasound performed. FINDINGS: Sonographic images demonstrate a single intrauterine gestation. A yolk sac and pole are seen. Sonographically assessed gestational age based upon crown-rump length of 0.3 cm is: 5 weeks 6 days Estimated date of delivery based on this ultrasound is: 03 February 2025 Estimated date of delivery based upon LMP: 29 January 2025 heart rate motion is Dopplered at: 153 bpm. No free fluid identified. Both ovaries appear sonographically normal. Pelvic Measurments Uterus: 5.7 x 10.22cm x 6.53cm cm Rt Ovary: 2.9 x 2.2 x 2.3 cm Lt Ovary: 3.1 x 1.8 x 1.2 cm IMPRESSION: Single live intrauterine gestation measuring 5 weeks 6 days. No evidence of ectopic . DATA REPOSITORY:
== END 2024-06-09 13:46 ==
LOC: DI 13:26
PROVIDERS: PCP Nurse Practitioner Family; Visit Provider Obstetrics & Gynecology
DX: R10.9 Unspecified abdominal pain (principal); R10.2 Pelvic and perineal pain; O99.891 Other specified diseases and conditions complicating pregnancy; Z3A.01 Less than 8 weeks gestation of pregnancy
CPT/HCPCS: 76770; 76801

== ENCOUNTER 2024-06-23 09:52 | Emergency (ER) | payer MEDICAID, SELFPAY ==
[2024-06-23 10:07] VITALS: BP 127/86; PULSE 83; RESP 20; TEMP 36.3; O2SAT 100
[2024-06-23 10:10] VITALS: BP 127/86; PULSE 83; RESP 20; TEMP 36.3; O2SAT 100
[2024-06-23 10:45] LABS: Bilirubin Negative (Negative); Blood Negative (Negative); Clarity Clear (Clear); Glucose Negative (Negative); Ketones 15 mg/dL (Negative); Leukocyte Esterase Negative (Negative); Nitrite Negative (Negative); Specific Gravity 1.025 (1.005-1.025); Urobilinogen 0.2 mg/dL (Up to 0.2); pH 6.5 (5-8)
[2024-06-23] MEDS: Acetaminophen 500 MG TAB 1000 MG PO (11:38)
[2024-06-23] MEDS: Lidocaine 5% Patch 1 PATCH TP (11:39)
[2024-06-23 11:43] VITALS: BP 127/86; PULSE 83; RESP 20; TEMP 36.3; O2SAT 100
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
== END 2024-06-23 11:40 | disposition home or self-care (01) ==
PROVIDERS: Emergency Provider Emergency Medicine; PCP Nurse Practitioner Family
DX: O99.891 Other specified diseases and conditions complicating pregnancy (principal); R10.9 Unspecified abdominal pain
CPT/HCPCS: 99283 ×2; 81025; 81003

== ENCOUNTER 2024-06-30 10:10 | Outpatient (CLI) | payer MEDICAID, SELFPAY ==
[2024-06-30 11:37] LABS: FREE T4 1.41 ng/dL (0.76-1.46); TSH 0.03 uIU/mL (0.36-3.74)
[2024-07-12 12:16] LABS: PROTEIN 16.4 mg/dL; Prot/Crea Ur Ratio 0.09
[2024-07-12 12:21] LABS: *AMPHETAMINES SCREEN URINE Negative (Negative); *BARBITURATES SCREEN URINE Negative (Negative); *BENZODIAZEPINES SCREEN URINE Negative (Negative); Cannabinoids THC Negative (Negative); Cocaine Screen,Urine Negative (Negative); METHADONE URINE SCREEN Negative (Negative); OPIATES URINE SCREEN Negative (Negative); Tricyclic Antidepressants Negative (Negative)
[2024-07-13 11:17] LABS: Fentanyl Scr w/Rfx Confirm Negative ng/mL (<1)
[2024-07-19 08:40] LABS: Buprenorphine Negative ng/mL (Cutoff: 5.0); Norbuprenorphine Negative ng/mL (Cutoff: 2.5)
== END 2024-06-30 10:11 | disposition home or self-care (01) ==
LOC: LBO 10:11
PROVIDERS: Advanced Practice Midwife; PCP Nurse Practitioner Family; Visit Provider Internal Medicine Endocrinology, Diabetes & Metabolism
DX: E89.0 Postprocedural hypothyroidism (principal)
CPT/HCPCS: 36415; 84439; 84443

== ENCOUNTER 2024-07-12 03:19 | Outpatient (CLI) | payer MEDICAID, SELFPAY ==
[2024-07-12 10:49] LABS: Panorama Kit Sent via Fed Ex
[2024-07-12 10:59] LABS: Abs Immature Grans 0.03 10^3/uL (0.0-0.06); Absolute Basophil Count 0.04 10^3/uL (0.0-0.2); Absolute Eosinophil Count 0.08 10^3/uL (0.0-0.7); Absolute Lymphocyte Count 1.94 10^3/uL (1.2-3.4); Absolute Monocyte Count 0.41 10^3/uL (0.1-0.8); Absolute Neutrophil Count 6.02 10^3/uL (1.2-6.7); Basophils % 0.5 %; Eosinophils % 0.9 %; HCT 37.9 % (36.0-46.0); HGB 12.6 g/dL (11.2-15.7); Immature Grans % 0.4 %; Lymphocytes % 22.8 %; MCH 28.4 pg (27.0-33.0); MCHC 33.2 % (32.0-36.0); MCV 85 fL (80-95); MPV 9.3 fL (8.0-11.0); Monocytes % 4.8 %; Neutrophils % 70.6 %; Platelet Count 255 10^3/uL (130-400); RBC 4.44 10^6/uL (3.93-5.22); RDW 13.9 % (11.7-14.6); WBC 8.52 10^3/uL (4.4-10.8)
[2024-07-12 11:19] LABS: Hemoglobin A1C 5.1 % (<5.7)
[2024-07-12 11:35] LABS: ALT 26 U/L (14-59); AST 14 U/L (15-37); Albumin 3.3 g/dL (3.4-5.0); Alkaline Phosphatase 82 U/L (46-116); Anion Gap 9.6 mmol/L (3-11); BUN 8 mg/dL (7-18); Bilirubin, Total 0.4 mg/dL (0.2-1.0); CO2 27.4 mmol/L (21.0-32.0); CREATININE 0.6 mg/dL (0.55-1.02); Chloride 102 mmol/L (98-107); Estimated GFR 123.76 (mL/min/1.73m2); Glucose 80 mg/dL (74-106); Potassium 3.4 mmol/L (3.5-5.1); Sodium 139 mmol/L (136-145); TSH (W/Ref FT4) 0.05 uIU/mL (0.36-3.74); Total Protein 7.1 g/dL (6.4-8.2)
[2024-07-12 11:55] LABS: FREE T4 1.28 ng/dL (0.76-1.46)
[2024-07-13 09:09] LABS: Hepatitis C Ab w Rflx HCV PCR Negative (Negative)
[2024-07-13 09:16] LABS: Hepatitis B Surface Ag Negative (Negative)
[2024-07-13 10:03] LABS: HIV-1/2 Ag & Ab Screen Negative (Negative)
[2024-07-13 11:42] LABS: Rubella IgG Ab (UVM) Positive (See Note)
[2024-07-13 11:44] LABS: Varicella IgG Antibody Positive (See Note)
[2024-07-14 18:13] LABS: Syphilis IgG w/Reflex Nonreactive (Nonreactive)
== END 2024-07-12 03:20 | disposition home or self-care (01) ==
LOC: LBO 03:19
PROVIDERS: Advanced Practice Midwife; PCP Nurse Practitioner Family; Visit Provider Advanced Practice Midwife
DX: Z34.91 Encounter for supervision of normal pregnancy, unspecified, first trimester (principal)
CPT/HCPCS: 36415; 80053; 80307; 80348; 86787; 86803; 86850; 86900; 86901; 87340; 87389; 82565; 83036; 84156; 84439; 84443; 85025; 86762; 86780; 87086

== ENCOUNTER 2024-07-12 10:49 | Outpatient (REF) | payer MEDICAID, SELFPAY ==
--- NOTE | 2024-07-12 10:00 | PAPFT_PTH ---
PATIENT: Tiny Cline LOC: [facility] U#:[id number] AGE/SX: 28/F ROOM: RE07/12/[address]: Sarah Doherty CNM : 1995 BED: DIS: 07/12/2024 SPEC #: [id number] RECD: 07/12/24 13:21 STATUS: DEMETRICE REShantal #: [id number] LUDY: 07/12/24 10:[address]: Sarah Doherty DEPT: [facility] Cytology RECD BY: Chacha Zimmerman ENTERED: 07/12/24 13:21 SP TYPE: PAPFT RUMA DR: DAYAN MOJICA NP Tissues: 1 - CX/ENDOCX FOR PAP SMEARS Procedures: PAP THIN PREP/[facility] Screening HPV DNA PROBE Comments: [id number] (HPV 16 & 18/45) (CHLAMYDIA/GC)
[2024-07-13 12:12] LABS: Chlamydia Result Negative (Negative); GC Result Negative (Negative)
== END 2024-07-12 10:50 | disposition home or self-care (01) ==
LOC: LBN 10:49
PROVIDERS: PCP Nurse Practitioner Family; Visit Provider Advanced Practice Midwife
DX: Z12.4 Encounter for screening for malignant neoplasm of cervix (principal); R87.619 Unspecified abnormal cytological findings in specimens from cervix uteri
CPT/HCPCS: 87491; 87591; 88142; 87624

== ENCOUNTER 2024-08-07 13:20 | Outpatient (CLI) | payer MEDICAID, SELFPAY ==
[2024-08-07 11:37] LABS: FREE T4 1.23 ng/dL (0.76-1.46); TSH 0.16 uIU/mL (0.36-3.74)
== END 2024-08-07 13:21 | disposition home or self-care (01) ==
LOC: LBO 13:21
PROVIDERS: PCP Nurse Practitioner Family; Visit Provider Internal Medicine Endocrinology, Diabetes & Metabolism
DX: E89.0 Postprocedural hypothyroidism (principal)
CPT/HCPCS: 36415; 84439; 84443

== ENCOUNTER 2024-08-16 22:19 | Emergency (ER) | payer MEDICAID, SELFPAY ==
[2024-08-16 22:27] VITALS: BP 108/72; PULSE 93; RESP 16; TEMP 36.7; O2SAT 98
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
[2024-08-16] MEDS: diphenhydrAMINE 50 MG/ML VIAL 12.5 MG IVP (22:57)
[2024-08-16] MEDS: METOCLOPRAMIDE 10 MG in Normal Saline 50 ML 200 MG IVPB (22:58)
[2024-08-16] MEDS: Normal Saline 1,000 ML 1000 ML IV (22:58)
== END 2024-08-16 23:59 | disposition home or self-care (01) ==
PROVIDERS: Emergency Provider Emergency Medicine; PCP Nurse Practitioner Family
DX: R51.9 Headache, unspecified (principal); Z3A.15 15 weeks gestation of pregnancy; R11.0 Nausea
CPT/HCPCS: 99283; 99284; 96374; 96375; 36416; 82962; 96361; J1200; J2765

== ENCOUNTER 2024-08-28 02:04 | Outpatient (CLI) | payer MEDICAID, SELFPAY ==
[2024-08-28 09:44] LABS: Glucose 1 Hour 161 mg/dL
[2024-08-28 12:07] LABS: Glucose 3 Hour 85 mg/dL
== END 2024-08-28 02:05 | disposition home or self-care (01) ==
LOC: LBO 02:04
PROVIDERS: PCP Nurse Practitioner Family; Visit Provider Obstetrics & Gynecology
DX: Z86.32 Personal history of gestational diabetes (principal)
CPT/HCPCS: 36415; 82951

== ENCOUNTER 2024-09-04 03:39 | Outpatient (CLI) | payer MEDICAID, SELFPAY ==
[2024-09-04 11:54] LABS: TSH 0.16 uIU/mL (0.36-3.74)
== END 2024-09-04 03:40 | disposition home or self-care (01) ==
LOC: LBO 03:39
PROVIDERS: PCP Nurse Practitioner Family; Visit Provider Internal Medicine Endocrinology, Diabetes & Metabolism
DX: E89.0 Postprocedural hypothyroidism (principal)
CPT/HCPCS: 36415; 84439; 84443

== ENCOUNTER 2024-10-05 06:01 | Emergency (ER) | payer MEDICAID, SELFPAY ==
[2024-10-05 06:04] VITALS: BP 143/92; PULSE 81; RESP 16; TEMP 36.8; O2SAT 98
[2024-10-05] MEDS: Fluorescein STRIPS 100/BOX 1 MG (06:15)
[2024-10-05] MEDS: Tetracaine 0.5% 4 ML BTL (06:15)
[2024-10-05 06:23] VITALS: BP 143/92; RESP 16; TEMP 36.8; O2SAT 98
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
[2024-10-05 06:56] VITALS: BP 130/71; PULSE 78; O2SAT 96
== END 2024-10-05 06:56 | disposition home or self-care (01) ==
PROVIDERS: Emergency Provider Student in an Organized Health Care Education/Training Program; PCP Nurse Practitioner Family
DX: O9A.212 Injury, poisoning and certain other consequences of external causes complicating pregnancy, second trimester (principal); T54.91XA Toxic effect of unspecified corrosive substance, accidental (unintentional), initial encounter; T26.82XA Corrosions of other specified parts of left eye and adnexa, initial encounter; Y93.E9 Activity, other interior property and clothing maintenance; Y92.511 Restaurant or cafe as the place of occurrence of the external cause; Y99.0 Civilian activity done for income or pay; Z3A.23 23 weeks gestation of pregnancy
CPT/HCPCS: 99283

== ENCOUNTER 2024-10-23 14:29 | Outpatient (CLI) | payer MEDICAID, SELFPAY ==
[2024-10-23 12:06] LABS: TSH 0.21 uIU/mL (0.36-3.74)
== END 2024-10-23 14:30 | disposition home or self-care (01) ==
LOC: LBO 14:29
PROVIDERS: PCP Nurse Practitioner Family; Visit Provider Internal Medicine Endocrinology, Diabetes & Metabolism
DX: E89.0 Postprocedural hypothyroidism (principal)
CPT/HCPCS: 36415; 84439; 84443

== ENCOUNTER 2024-11-10 10:53 | Outpatient (CLI) | payer MEDICAID, SELFPAY ==
[2024-11-10 07:30] LABS: Abs Immature Grans 0.04 10^3/uL (0.0-0.06); HCT 36.6 % (36.0-46.0); HGB 12.2 g/dL (11.2-15.7); Immature Grans % 0.5 %; MCH 29.6 pg (27.0-33.0); MCHC 33.3 % (32.0-36.0); MCV 89 fL (80-95); MPV 9.5 fL (8.0-11.0); Platelet Count 247 10^3/uL (130-400); RBC 4.12 10^6/uL (3.93-5.22); RDW 14.6 % (11.7-14.6); RDW-SD 47.5 fL; WBC 7.28 10^3/uL (4.4-10.8)
[2024-11-10 08:48] LABS: TSH (W/Ref FT4) 0.23 uIU/mL (0.36-3.74)
[2024-11-10 09:00] LABS: Glucose 1 Hour 165 mg/dL
== END 2024-11-10 10:54 | disposition home or self-care (01) ==
PROVIDERS: PCP Nurse Practitioner Family; Visit Provider Obstetrics & Gynecology
DX: Z34.92 Encounter for supervision of normal pregnancy, unspecified, second trimester (principal)
CPT/HCPCS: 36415; 82951; 84439; 84443; 85025

== ENCOUNTER 2024-12-14 05:30 | Outpatient (CLI) | payer MEDICAID, SELFPAY ==
--- NOTE | 2024-12-14 07:45 | DI.US_ITS ---
Exam(s) US OB CHRISTI WEIGHT EXAM: US OB CHRISTI WEIGHT CLINICAL HISTORY: Gestational diabetes,O24.419. TECHNIQUE: Transabdominal obstetrical ultrasound performed. COMPARISON: US POCUS EXAM from 06/14/2024 US POCUS EXAM from 07/12/2024 US POCUS EXAM from 08/28/2024 FINDINGS:: Number of fetuses: 1 position: CEPHALIC, spine posterior. Placental location: Anterior. No evidence of previa. BIOMETRIC DATA: BPD: 82 mm = 32weeks 6days HC: 309 mm = 34weeks 3days AC: 302 mm = 34weeks 1day FL: 65 mm = 33weeks 5days EFW: 2,310.13g, 5lb 1.85oz, 70.5% Composite Age: 33weeks 6days GEOVANI: 01/26/2025 Heart Rate: 149bpm Amniotic fluid index: 14.55cm. Visually, amount of fluid is within normal limits. IMPRESSION: size and weight are within the expected range. DATA REPOSITORY:
== END 2024-12-14 05:50 ==
LOC: DI 05:31
PROVIDERS: PCP Nurse Practitioner Family; Visit Provider Obstetrics & Gynecology
DX: O24.419 Gestational diabetes mellitus in pregnancy, unspecified control (principal)
CPT/HCPCS: 76816

== ENCOUNTER 2024-12-14 12:19 | Outpatient (REF) | payer MEDICAID, SELFPAY | END 2024-12-14 12:20 | disposition home or self-care (01) | LOC: LBN 12:19 | PROVIDERS: PCP Nurse Practitioner Family; Visit Provider Obstetrics & Gynecology | DX: Z34.93 Encounter for supervision of normal pregnancy, unspecified, third trimester (principal) | CPT/HCPCS: 87086 ==

== ENCOUNTER 2024-12-14 12:49 | Outpatient (CLI) | payer MEDICAID, SELFPAY ==
[2024-12-14 14:32] LABS: TSH 0.96 uIU/mL (0.36-3.74)
== END 2024-12-14 12:50 | disposition home or self-care (01) ==
LOC: LBO 12:50
PROVIDERS: PCP Nurse Practitioner Family; Visit Provider Internal Medicine Endocrinology, Diabetes & Metabolism
DX: E89.0 Postprocedural hypothyroidism (principal)
CPT/HCPCS: 36415; 84439; 84443

== ENCOUNTER 2024-12-21 10:34 | Outpatient (CLI) | payer MEDICAID, SELFPAY ==
[2024-12-21 10:52] VITALS: BP 100/69; PULSE 97; TEMP 36.7
[2024-12-21 10:53] VITALS: BP 100/69; PULSE 97
--- NOTE | 2024-12-21 12:04 | W.OBNST ---
Date of service: 12/21/24 Time of Service: 12:04 NST Evaluation Reason for NST Reasons for Nonstress Test: GDM-INSULIN Gestational Age Gestational Age in Weeks and Days: 34 Weeks and 0Days Test and Monitor Explained Test/Monitor Explained: Test Explained and Patient Verbalized Understanding Vital Signs Blood Pressure: 100/69 Pulse: 97 Temperature: 98.1 F NST Information Date on Monitor: 12/21/24 Time on Monitor: 10:50 NST Interventions: PO Hydration NST Evaluation Patient States Movement: Present Variability: Moderate 6-25 bpm Note Ultrasound Done: N/A. NST Note Note: Category 1, reactive NST continue twice weekly surveillance. NST Reviewed and Verified by: Fiona Cespedes
[2024-12-21 12:05] VITALS: BP 100/69; PULSE 97; TEMP 36.7
== END 2024-12-21 11:35 ==
LOC: BCD 10:35 → OBS 10:36
PROVIDERS: PCP Nurse Practitioner Family; Visit Provider Obstetrics & Gynecology
DX: O24.414 Gestational diabetes mellitus in pregnancy, insulin controlled (principal); Z3A.34 34 weeks gestation of pregnancy
CPT/HCPCS: 59025

== ENCOUNTER 2024-12-26 07:17 | Outpatient (CLI) | payer MEDICAID, SELFPAY ==
[2024-12-26 07:35] VITALS: BP 117/63; PULSE 86; TEMP 36.9
[2024-12-26 07:46] VITALS: BP 117/63; PULSE 86
--- NOTE | 2024-12-26 09:44 | PDOC.NST_ITS ---
Date of service: 12/26/24 Time of Service: 09:44 NST Evaluation Reason for NST Reasons for Nonstress Test: GDM-INSULIN Gestational Age Gestational Age in Weeks and Days: 34 Weeks and 5Days Test and Monitor Explained Test/Monitor Explained: Test Explained, Monitor Explained and Patient Verbalized Understanding Vital Signs Blood Pressure: 117/63 Pulse: 86 Temperature: 98.4 F Urine Results Urine Protein: Negative Urine Ketones: Negative Urine Glucose: Negative Urine Blood: Negative NST Information Date on Monitor: 12/26/24 Time on Monitor: 07:44 Date off Monitor: 12/26/24 Time off Monitor: 08:32 Total Time on Monitor: 48 NST Interventions: None Contraction Frequency: 0 NST Evaluation Patient States Movement: Present FHR Baseline: 135 Variability: Moderate 6-25 bpm Accelerations: 15x15 Decelerations: None NST Results: Reactive Note Ultrasound Done: N/A. NST Note Note: Patient seen while in the center. Category 1, reactive NST. Patient is currently using 35 units of NPH at dinnertime. Her glycemic control has improved. Her fasting level was 97 today. She has not yet heard from [facility] about her scheduled labor induction, currently scheduled 2 days prior to her due date. NST Reviewed and Verified by: Fiona Cespedes
[2024-12-26 09:45] VITALS: BP 117/63; PULSE 86; TEMP 36.9
== END 2024-12-26 08:36 ==
LOC: BCD 07:29 → OBS 07:33
PROVIDERS: PCP Nurse Practitioner Family; Visit Provider Obstetrics & Gynecology
DX: O24.414 Gestational diabetes mellitus in pregnancy, insulin controlled (principal); Z3A.34 34 weeks gestation of pregnancy
CPT/HCPCS: 59025

== ENCOUNTER 2024-12-27 19:41 | Emergency (ER) | payer MEDICAID, SELFPAY ==
[2024-12-27 19:45] VITALS: BP 126/76; PULSE 84; RESP 18; TEMP 36.2; O2SAT 100
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
[2024-12-27] MEDS: Acetaminophen 500 MG TAB 1000 MG PO (20:15)
[2024-12-27 20:18] LABS: Glucose Negative (Negative)
[2024-12-27 20:25] LABS: RBC 0-2 HPF (0-2)
== END 2024-12-27 20:28 | disposition short-term general hospital (02) ==
PROVIDERS: Emergency Provider Emergency Medicine; PCP Nurse Practitioner Family
DX: M54.50 Low back pain, unspecified (principal)
CPT/HCPCS: 99283; 99284; 36416; 82962; 76815; 81003; 81015

== ENCOUNTER 2024-12-27 22:11 | Observation (INO) | payer MEDICAID, SELFPAY ==
[2024-12-27 20:56] VITALS: BP 129/69; PULSE 72; TEMP 36.4
[2024-12-27 21:17] VITALS: BP 129/69; PULSE 72
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
--- NOTE | 2024-12-28 03:44 | W.PM.OBNL1 ---
Date of service: 12/28/24 Time of Service: 03:44 Assessment and Plan Assessment and plan (1) : Status: Acute Assessment and plan: You to monitor for signs of labor. Rest through the night. (2) History of gestational hypertension: Status: Acute Assessment and plan: Blood pressure remained stable. (3) Gestational diabetes: Status: Acute Assessment and plan: Fasting blood glucose in the morning. Insulin adjustment as needed. Objective Pulse BP 72 129/69 12/27/24 21:17 12/27/24 21:17 Subjective Interval history since last seen: Patient seen and examined this morning. Overall has slept somewhat. She woke up with some epigastric discomfort. She received some Tums and an order for famotidine placed. heart tones are in the 140s with moderate variability and accelerations present. No significant frequent uterine activity. Patient will continue to do rest. Baby's been moving and active. Will check fasting blood sugar in the morning and adjust insulin as needed.
[2024-12-28 03:46] VITALS: BP 130/81; PULSE 86; RESP 17; O2SAT 99
[2024-12-28] MEDS: Famotidine 20 MG TAB 40 MG PO (03:58)
[2024-12-28] MEDS: Calcium Carbonate *TUMS* 500 MG CHEW 1000 MG PO (03:58)
[2024-12-28 08:17] VITALS: BP 130/80; PULSE 89; RESP 18; TEMP 36.7
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
== END 2024-12-28 09:05 | disposition home or self-care (01) ==
PROVIDERS: Admitting Provider Obstetrics & Gynecology; PCP Nurse Practitioner Family; Visit Provider Obstetrics & Gynecology
DX: O47.03 False labor before 37 completed weeks of gestation, third trimester (principal); O24.414 Gestational diabetes mellitus in pregnancy, insulin controlled; E66.01 Morbid (severe) obesity due to excess calories; Z86.19 Personal history of other infectious and parasitic diseases; M54.50 Low back pain, unspecified; K76.0 Fatty (change of) liver, not elsewhere classified; F32.A Depression, unspecified; Z79.899 Other long term (current) drug therapy; O99.343 Other mental disorders complicating pregnancy, third trimester; Z3A.34 34 weeks gestation of pregnancy; O26.613 Liver and biliary tract disorders in pregnancy, third trimester; O99.283 Endocrine, nutritional and metabolic diseases complicating pregnancy, third trimester; E03.9 Hypothyroidism, unspecified
CPT/HCPCS: 59025; 87081; 87086; G0378; J1815

== ENCOUNTER 2024-12-29 07:57 | Outpatient (CLI) | payer MEDICAID, SELFPAY ==
[2024-12-29 08:05] VITALS: BP 120/72; PULSE 102; TEMP 37.1
--- NOTE | 2024-12-29 08:37 | NUR.NOTE ---
Nursing Note:Dr Cespedes performed a bedside POCUS. BPP 8/. Baby too active to get NST.
--- NOTE | 2024-12-29 08:41 | NUR.NOTE ---
Nursing Note: Pt discharged to home. Repeat NST's scheduled Mondays and ..
--- NOTE | 2024-12-29 09:16 | PGE_ITS ---
Date of Service Date of service: 12/29/24 Time of Service: 09:16 Assessment and Plan Assessment and plan (1) : Status: Acute Assessment and plan: Intrauterine gestation. Doing well. On insulin, 35 units in the evening. Appropriate glycemic control with fastings now less than 95. Occasional dietary indiscretions with elevated 1 hour postprandials. Patient will continue surveillance with twice weekly NSTs on Mondays and . She will continue to check her blood sugars fasting and 1 hour after meals. She is scheduled for telemedicine visit with [facility] for ongoing management, and scheduling of her induction. (2) History of gestational hypertension: Status: Acute (3) Gestational diabetes: Status: Acute Subjective Subjective Interval history since last seen: Patient seen while on the center for surveillance. Baby is extremely active and difficult to Graeff, biophysical profile performed at the bedside. Overall, patient doing well. Some low back and pelvic discomfort. No discrete regular contractions. Her glycemic control at this point is appropriate. Her fasting glucose was 94 this morning. She continues with NPH, 35 units at dinnertime. Pocus Exam Limited OB Exam DATE OF EXAM:: 12/29/24 TIME OF EXAM:: 09:17 PROVIDER THAT PERFORMED THE STUDY: Fiona Cespedes IS THIS A REPEAT EXAM DURING THIS ENCOUNTER: No Type of Exam: Pelvic OB Trans Abdominal REASON FOR EXAM: other (Biophysical profile) indication: Biophysical profile Exam Complete. DIFFERENTAL DIAGNOSES: Gestational diabetes, insulin requiring. Biophysical profile performed movement equals 2 tone equals 2 CHRISTI equals 10.6–2 points, breathing 2 male BPP 8:8 INCIDENTAL FINDINGS: Cephalic position Time Spent with Patient Time Spent with Patient: 25-34 minutes Time was spent: preparing to see the patient(eg.review tests), obtaining and/or reviewing separately otained hiistory, ordering medications,tests, procedures and referring, communicating with other health direct care specialist
== END 2024-12-29 08:43 ==
LOC: BCD 07:57
PROVIDERS: PCP Nurse Practitioner Family; Visit Provider Obstetrics & Gynecology
DX: Z87.59 Personal history of other complications of pregnancy, childbirth and the puerperium; O24.414 Gestational diabetes mellitus in pregnancy, insulin controlled; Z3A.35 35 weeks gestation of pregnancy
CPT/HCPCS: 59025

== ENCOUNTER 2025-01-01 07:35 | Outpatient (CLI) | payer MEDICAID, SELFPAY ==
[2025-01-01 08:42] VITALS: BP 118/60; PULSE 99; TEMP 36.7
[2025-01-01 08:56] VITALS: BP 118/60; PULSE 99
--- NOTE | 2025-01-01 09:25 | PDOC.NST_ITS ---
Date of service: 01/01/25 Time of Service: 09:27 NST Evaluation Reason for NST Reasons for Nonstress Test: GDM-INSULIN Gestational Age Gestational Age in Weeks and Days: 35 Weeks and 4Days Test and Monitor Explained Test/Monitor Explained: Test Explained, Monitor Explained and Patient Verbalized Understanding Vital Signs Blood Pressure: 118/60 Pulse: 99 Temperature: 98.1 F Urine Results Urine Protein: Negative Urine Ketones: Negative Urine Glucose: Negative Urine Blood: Negative NST Information Date on Monitor: 01/01/25 Time on Monitor: 08:50 Date off Monitor: 01/01/25 Time off Monitor: 09:18 Total Time on Monitor: 28 NST Interventions: PO Hydration NST Evaluation Patient States Movement: Present FHR Baseline: 130 Variability: Moderate 6-25 bpm Accelerations: 15x15 Decelerations: None NST Results: Reactive Note Ultrasound Done: N/A. NST Note Note: Patient presents today for NST. She reports that HSV prophylaxis is ordered and sent to her pharmacy at one of her prior visits. She reports that her blood sugar normal's have been, better, but she does make to have some elevated values at Halloween as well as elevated postprandials at dinner; she does not have her blood sugar numbers with her today. We discussed the importance of maintaining tight glucose control and the potential need for adding insulin at the time of dinner. She was encouraged to bring her blood sugar numbers with her to her next visit which is later this week. She has a televisit scheduled with [facility] group for consideration of earlier induction on Wednesday. Labor precautions reviewed NST Reviewed and Verified by: Danay Pabon
[2025-01-01 09:27] VITALS: BP 118/60; PULSE 99; TEMP 36.7
== END 2025-01-01 09:35 ==
LOC: BCD 07:35 → OBS 08:40
PROVIDERS: PCP Nurse Practitioner Family; Visit Provider Obstetrics & Gynecology
DX: O24.414 Gestational diabetes mellitus in pregnancy, insulin controlled (principal); Z3A.35 35 weeks gestation of pregnancy
CPT/HCPCS: 59025

== ENCOUNTER 2025-01-05 07:25 | Outpatient (CLI) | payer MEDICAID, SELFPAY ==
[2025-01-05 08:21] VITALS: BP 115/64; PULSE 100; TEMP 36.9
[2025-01-05 08:24] VITALS: BP 115/64; PULSE 100; TEMP 36.9
--- NOTE | 2025-01-05 08:44 | W.OBNST ---
Date of service: 01/05/25 Time of Service: 08:45 NST Evaluation Reason for NST Reasons for Nonstress Test: GDM-INSULIN Gestational Age Gestational Age in Weeks and Days: 36 Weeks and 1Days Test and Monitor Explained Test/Monitor Explained: Patient Verbalized Understanding Vital Signs Blood Pressure: 115/64 Pulse: 100 Temperature: 98.4 F Weight: 280 lb NST Information Date on Monitor: 01/05/25 Time on Monitor: 08:20 Date off Monitor: 01/05/25 Time off Monitor: 08:39 Total Time on Monitor: 19 NST Interventions: PO Hydration NST Evaluation Patient States Movement: Present FHR Baseline: 140 Variability: Moderate 6-25 bpm Accelerations: 15x15 Decelerations: None NST Results: Reactive Note Ultrasound Done: N/A. NST Note Note: See PNC note from same day NST Reviewed and Verified by: Danay Pabon
[2025-01-05 08:45] VITALS: BP 115/64; PULSE 100; TEMP 36.9
--- NOTE | 2025-01-05 17:00 | W.OBNST ---
Date of service: 01/05/25 Time of Service: 17:00 NST Evaluation Reason for NST Reasons for Nonstress Test: GDM-INSULIN Gestational Age Gestational Age in Weeks and Days: 36 Weeks and 6Days Test and Monitor Explained Test/Monitor Explained: Patient Verbalized Understanding Vital Signs Blood Pressure: 115/64 Pulse: 100 Temperature: 98.4 F Weight: 280 lb NST Information Date on Monitor: 01/05/25 Time on Monitor: 08:20 Date off Monitor: 01/05/25 Time off Monitor: 08:39 Total Time on Monitor: 19 NST Interventions: PO Hydration NST Evaluation Patient States Movement: Present FHR Baseline: 140 Variability: Moderate 6-25 bpm Accelerations: 15x15 Decelerations: None NST Results: Reactive Note Ultrasound Done: N/A. NST Note NST Reviewed and Verified by: Danay Pabon
[2025-01-11 21:19] VITALS: BP 115/64; PULSE 100; TEMP 36.9
== END 2025-01-05 08:45 ==
LOC: BCD 07:43 → OBS 08:03
PROVIDERS: PCP Nurse Practitioner Family; Visit Provider Obstetrics & Gynecology
DX: O24.414 Gestational diabetes mellitus in pregnancy, insulin controlled (principal); Z3A.36 36 weeks gestation of pregnancy
CPT/HCPCS: 59025

== ENCOUNTER 2025-01-07 15:51 | Outpatient (CLI) | payer MEDICAID, SELFPAY ==
[2025-01-07 16:05] VITALS: BP 125/70; PULSE 93; TEMP 36.6
[2025-01-07 16:07] VITALS: BP 125/70; PULSE 93
[2025-01-07 16:25] VITALS: TEMP 36.6
[2025-01-07] MEDS: Acetaminophen 325 MG TAB 650 MG PO (16:25)
--- NOTE | 2025-01-07 16:57 | W.OBNST ---
Date of service: 01/07/25 Time of Service: 16:57 NST Evaluation Reason for NST Reasons for Nonstress Test: GDM-DIET CONTROLLED Gestational Age Gestational Age in Weeks and Days: 36 Weeks and 3Days Test and Monitor Explained Test/Monitor Explained: Test Explained and Monitor Explained Vital Signs Blood Pressure: 125/70 Pulse: 93 Temperature: 97.9 F Urine Results Urine Protein: Positive Urine Ketones: Positive Urine Glucose: Negative Urine Blood: Negative NST Information Date on Monitor: 01/07/25 Time on Monitor: 16:05 Date off Monitor: 01/07/25 Time off Monitor: 16:30 Total Time on Monitor: 25 NST Interventions: PO Hydration NST Evaluation Patient States Movement: Present FHR Baseline: 140 Variability: Moderate 6-25 bpm Accelerations: 15x15 Decelerations: None NST Results: Reactive Note Ultrasound Done: N/A. NST Note Note: Category 1, reactive NST. Appropriate blood pressure. Urine sent to the lab due to concentration. Encouraged oral hydration. 650 mg of Tylenol given for cephalgia. Will transition NSTs to Wednesday and Wednesday, twice weekly. Currently, glycemic control is appropriate with fasting level this morning of 94, 1 hour after breakfast 121. Patient is scheduled for labor induction at [facility] 01/26/25 unless indicated sooner NST Reviewed and Verified by: Fiona Cespedes
[2025-01-07 16:58] VITALS: BP 125/70; PULSE 93; TEMP 36.6
[2025-01-07 17:35] LABS: Glucose Negative (Negative)
[2025-01-07 17:45] LABS: C & S Indicated? No
== END 2025-01-07 16:10 ==
LOC: BCD 15:51 → OBS 15:58
PROVIDERS: Obstetrics & Gynecology; PCP Nurse Practitioner Family; Visit Provider Obstetrics & Gynecology
DX: O24.410 Gestational diabetes mellitus in pregnancy, diet controlled (principal); Z3A.36 36 weeks gestation of pregnancy; R80.9 Proteinuria, unspecified
CPT/HCPCS: 59025; 81003; 81015

== ENCOUNTER 2025-01-10 08:19 | Outpatient (CLI) | payer MEDICAID, SELFPAY ==
[2025-01-10 10:12] VITALS: BP 121/76; PULSE 100; TEMP 36.8
[2025-01-10 10:16] VITALS: BP 121/76; PULSE 100
[2025-01-10 13:22] VITALS: BP 121/76; PULSE 100; TEMP 36.8
--- NOTE | 2025-01-10 13:22 | W.OBNST ---
Date of service: 01/10/25 Time of Service: 13:22 NST Evaluation Reason for NST Reasons for Nonstress Test: GDM-INSULIN Gestational Age Gestational Age in Weeks and Days: 36 Weeks and 6Days Test and Monitor Explained Test/Monitor Explained: Test Explained Vital Signs Blood Pressure: 121/76 Pulse: 100 Temperature: 98.2 F Weight: 285 lb Urine Results Urine Protein: Positive Urine Ketones: Negative Urine Glucose: Negative Urine Blood: Negative NST Information Date on Monitor: 01/10/25 Time on Monitor: 10:05 Date off Monitor: 01/10/25 Time off Monitor: 10:40 Total Time on Monitor: 35 NST Interventions: None NST Evaluation Patient States Movement: Present FHR Baseline: 145 Variability: Moderate 6-25 bpm Accelerations: 15x15 Decelerations: None NST Results: Reactive Note Ultrasound Done: N/A. NST Note Note: Category 1, reactive NST NST Reviewed and Verified by: Fiona Cespedes
== END 2025-01-10 10:52 | disposition home health service (06) ==
LOC: BCD 08:20 → OBS 10:10
PROVIDERS: PCP Nurse Practitioner Family; Visit Provider Obstetrics & Gynecology
DX: O24.414 Gestational diabetes mellitus in pregnancy, insulin controlled (principal); Z3A.36 36 weeks gestation of pregnancy; R80.9 Proteinuria, unspecified
CPT/HCPCS: 59025

== ENCOUNTER 2025-01-10 10:52 | Outpatient (CLI) | payer MEDICAID, SELFPAY ==
[2025-01-10 11:35] LABS: TSH 1.11 uIU/mL (0.55-4.78)
== END 2025-01-10 10:53 | disposition home or self-care (01) ==
LOC: LBO 10:52
PROVIDERS: PCP Nurse Practitioner Family; Visit Provider Internal Medicine Endocrinology, Diabetes & Metabolism
DX: E89.0 Postprocedural hypothyroidism (principal)
CPT/HCPCS: 36415; 84439; 84443

== ENCOUNTER 2025-01-14 10:05 | Outpatient (CLI) | payer MEDICAID, SELFPAY ==
[2025-01-14 10:08] VITALS: BP 117/71; PULSE 92; TEMP 36.5
[2025-01-14 10:11] VITALS: BP 117/71; PULSE 92
[2025-01-15 17:20] VITALS: BP 117/71; PULSE 92; TEMP 36.5
--- NOTE | 2025-01-15 17:20 | W.OBNST ---
Date of service: 01/14/25 Time of Service: 10:00 NST Evaluation Reason for NST Reasons for Nonstress Test: GDM-INSULIN Gestational Age Gestational Age in Weeks and Days: 37 Weeks and 3Days Test and Monitor Explained Test/Monitor Explained: Test Explained Vital Signs Blood Pressure: 117/71 Pulse: 92 Temperature: 97.7 F Weight: 10.053 oz Urine Results Urine Protein: Positive Urine Ketones: Positive Urine Glucose: Negative Urine Blood: Negative NST Information Date on Monitor: 01/14/25 Time on Monitor: 10:00 Date off Monitor: 01/14/25 Time off Monitor: 10:29 Total Time on Monitor: 29 NST Evaluation Patient States Movement: Present FHR Baseline: 135 Variability: Moderate 6-25 bpm Accelerations: 15x15 NST Results: Reactive Note Ultrasound Done: N/A. NST Note NST Reviewed and Verified by: Britt Us
== END 2025-01-14 10:45 | disposition home health service (06) ==
LOC: BCD 10:05 → OBS 10:07
PROVIDERS: PCP Nurse Practitioner Family; Visit Provider Obstetrics & Gynecology
DX: O24.414 Gestational diabetes mellitus in pregnancy, insulin controlled (principal); Z3A.37 37 weeks gestation of pregnancy
CPT/HCPCS: 59025

== ENCOUNTER 2025-01-17 07:42 | Outpatient (CLI) | payer MEDICAID, SELFPAY ==
[2025-01-17 09:43] VITALS: BP 120/73; PULSE 101; RESP 18; TEMP 36.8
[2025-01-17 09:50] VITALS: BP 120/73; PULSE 101; TEMP 36.8
[2025-01-17 10:28] VITALS: BP 120/73; PULSE 101; TEMP 36.8
--- NOTE | 2025-01-17 10:28 | W.OBNST ---
Date of service: 01/17/25 Time of Service: 10:28 NST Evaluation Reason for NST Reasons for Nonstress Test: GDM-INSULIN Gestational Age Gestational Age in Weeks and Days: 37 Weeks and 6Days Test and Monitor Explained Test/Monitor Explained: Test Explained, Monitor Explained and Patient Verbalized Understanding Vital Signs Blood Pressure: 120/73 Pulse: 101 Temperature: 98.2 F Urine Results Urine Protein: Negative Urine Ketones: Negative Urine Glucose: Negative Urine Blood: Negative NST Information Date on Monitor: 01/17/25 Time on Monitor: 09:42 Date off Monitor: 01/17/25 NST Interventions: None NST Evaluation Patient States Movement: Present FHR Baseline: 145 Variability: Moderate 6-25 bpm Accelerations: 15x15 Decelerations: None NST Results: Reactive Note Ultrasound Done: N/A. NST Note Note: Category 1, reactive NST. Please see visit note today 01/17/2025 NST Reviewed and Verified by: Fiona Cespedes
== END 2025-01-17 10:00 ==
LOC: BCD 07:49 → OBS 09:10
PROVIDERS: PCP Nurse Practitioner Family; Visit Provider Obstetrics & Gynecology
DX: O36.8131 Decreased fetal movements, third trimester, fetus 1 (principal); W18.39XA Other fall on same level, initial encounter; Z3A.37 37 weeks gestation of pregnancy
CPT/HCPCS: 59025

== ENCOUNTER 2025-01-17 21:27 | Outpatient (CLI) | payer MEDICAID, SELFPAY ==
[2025-01-17 22:03] VITALS: PULSE 79; O2SAT 100
[2025-01-17 22:05] VITALS: BP 122/83; PULSE 75; RESP 20; TEMP 36.8
--- NOTE | 2025-01-17 22:14 | NUR.NOTE ---
Nursing Note: Dr Pabon in to see pt. Plan is to monitor for 2 hours.
--- NOTE | 2025-01-17 22:15 | NUR.NOTE ---
Nursing Note: Pt fell at home around 2119, tripped over childrens toy and fell on abd. Pt denies vag bleeding or fluyid leakage. Pt reports some abd pain like in a ball, pain rated 7/10.
--- NOTE | 2025-01-17 22:38 | NUR.NOTE ---
Nursing Note: Pt appears calm, comfortable and relaxed. On her phone. Has no needs at this time.
[2025-01-17] MEDS: Acetaminophen 325 MG TAB 650 MG PO (23:35)
--- NOTE | 2025-01-17 23:45 | NUR.NOTE ---
Nursing Note: Dr Pabon in to see pt. Plan to discharge home undelivered
--- NOTE | 2025-01-17 23:47 | W.OBNST ---
Date of service: 01/17/25 Time of Service: 23:47 NST Evaluation Reason for NST Reasons for Nonstress Test: OTHER, SEE COMMENT Reason for NST Other: Fell at home on abd, decreased FM Gestational Age Gestational Age in Weeks and Days: 37 Weeks and 6Days Test and Monitor Explained Test/Monitor Explained: Test Explained and Patient Verbalized Understanding Vital Signs Blood Pressure: 122/83 Pulse: 78 Temperature: 98.2 F Urine Results Urine Protein: Negative Urine Ketones: Negative Urine Glucose: Negative Urine Blood: Negative NST Information Date on Monitor: 01/17/25 Time on Monitor: 21:41 NST Interventions: IV Fluids and Reposition Patient NST Evaluation Patient States Movement: Present and Decreased FHR Baseline: 135 Variability: Moderate 6-25 bpm Accelerations: 15x15 Decelerations: None NST Results: Reactive Note Ultrasound Done: N/A. NST Note Note: Patient presents s/p fall that occurred around 9:10 PM this evening. Patient states she was walking away from her child quickly when she tripped on her wooden floor and fell to the ground. She reports having fallen to her knees and states her abdomen hit the ground on the right side. She did not hit her head and she fell from standing to the immediate ground (no levels / stairs). She denies leakage, cramping, or bleeding. There is no bruising or tenderness across the entirety of the abdomen and fundus. No contractions are appreciated on the monitor. After a few hours of extended monitoring, the patient was discharged with instructions for close follow up and encouraged to return if any further concerns arose. NST Reviewed and Verified by: Danay Pabon
[2025-01-17 23:52] VITALS: BP 122/83; PULSE 78; TEMP 36.8
== END 2025-01-17 23:45 ==
LOC: BCD 21:29 → OBS 21:30
PROVIDERS: PCP Nurse Practitioner Family; Visit Provider Obstetrics & Gynecology
DX: O24.414 Gestational diabetes mellitus in pregnancy, insulin controlled (principal); Z3A.38 38 weeks gestation of pregnancy
CPT/HCPCS: 59025

== ENCOUNTER 2025-01-21 10:02 | Outpatient (CLI) | payer MEDICAID, SELFPAY ==
[2025-01-21 10:32] VITALS: BP 134/71; PULSE 125; TEMP 36.9
[2025-01-21 21:13] VITALS: BP 134/71; PULSE 125; TEMP 36.9
--- NOTE | 2025-01-21 21:13 | W.OBNST ---
Date of service: 01/21/25 Time of Service: 13:00 NST Evaluation Reason for NST Reasons for Nonstress Test: GDM-INSULIN Gestational Age Gestational Age in Weeks and Days: 38 Weeks and 3Days Test and Monitor Explained Test/Monitor Explained: Test Explained, Monitor Explained and Patient Verbalized Understanding Vital Signs Blood Pressure: 134/71 Pulse: 125 Temperature: 98.4 F Urine Results Urine Protein: Negative Urine Ketones: Negative Urine Glucose: Negative Urine Blood: Negative NST Information Date on Monitor: 01/21/25 Time on Monitor: 10:05 Date off Monitor: 01/21/25 Time off Monitor: 10:36 Total Time on Monitor: 31 NST Interventions: PO Hydration Contraction Frequency: 0 NST Evaluation Patient States Movement: Present FHR Baseline: 145 Variability: Moderate 6-25 bpm Accelerations: 15x15 Decelerations: None NST Results: Reactive Note Ultrasound Done: N/A. NST Note NST Reviewed and Verified by: Danay Pabon
== END 2025-01-21 11:29 ==
LOC: BCD 10:02 → OBS 10:12
PROVIDERS: PCP Nurse Practitioner Family; Visit Provider Obstetrics & Gynecology
DX: O24.414 Gestational diabetes mellitus in pregnancy, insulin controlled (principal); Z3A.38 38 weeks gestation of pregnancy
CPT/HCPCS: 59025

== ENCOUNTER 2025-01-24 07:06 | Outpatient (CLI) | payer MEDICAID, SELFPAY ==
[2025-01-24 09:43] VITALS: TEMP 36.9
[2025-01-24 09:55] VITALS: BP 126/78; PULSE 96
--- NOTE | 2025-01-24 10:16 | NUR.NOTE ---
Nursing Note:Appointment made per Dr Cespedes for a follow up PP visit a week from Wednesday. Appt card given. Pt is being induced this Wednesday at [facility]
== END 2025-01-24 10:00 ==
LOC: BCD 07:06 → OBS 09:47
PROVIDERS: PCP Nurse Practitioner Family; Visit Provider Obstetrics & Gynecology
DX: O24.414 Gestational diabetes mellitus in pregnancy, insulin controlled (principal); Z3A.38 38 weeks gestation of pregnancy
CPT/HCPCS: 59025